=== PATIENT | male | born 1965 | race African-American/Black ===

== ENCOUNTER 2022-10-25 13:07 | Outpatient (REF) | payer OTHER, SELFPAY ==
[2022-10-25 13:39] LABS: Basophils Percent Auto 0.2 % (0-2); Eosinophils Absolute Auto 0.1 X10*3/uL (0.0-0.4); Eosinophils Percent Auto 1.1 % (0-4); Hematocrit 41.1 % (42.0-52.0); Hemoglobin 12.8 g/dl (14.0-18.0); Imm Gran Abs Auto 0.01 X10*3/uL (0.00-0.03); Imm Gran Pct Auto 0.2 % (0.0-0.4); Lymphocytes Absolute Auto 3.6 X10*3/uL (1.2-4.9); Lymphocytes Percent Auto 63.9 % (20-40); MANUAL DIFF FLAG SCAN; Mean Corpuscular HGB Conc 31.1 g/dl (31.0-36.0); Mean Corpuscular Hemoglobin 27.2 pg (27.0-33.0); Mean Corpuscular Volume 87.3 fL (80.0-98.0); Mean Platelet Volume 9.5 fL (9.4-12.4); Monocytes Absolute Auto 0.5 X10*3/uL (0.1-1.2); Monocytes Percent Auto 7.9 % (2-11); Neutrophils Absolute Auto 1.5 x10*3/uL (2.0-8.3); Neutrophils Percent Auto 26.7 % (45-73); Platelet Count 333 X10*3/uL (160-400); Red Blood Count 4.71 X10*6/uL (4.60-5.80); Red Cell Distribution Width 14.2 % (11.0-16.0); SCAN SMEAR FLAG 1; White Blood Count 5.7 X10*3/uL (4.8-10.8)
[2022-10-25 13:48] LABS: Estimated Average Glucose 108 mg/dL; Hemoglobin A1C 117.7283 umol/L; Hemoglobin A1c % 5.4 % (<6.0)
[2022-10-25 13:58] LABS: SLIDE REVIEW VERIFIED
[2022-10-25 14:19] LABS: Alanine Aminotransferase 24 U/L (0-40); Albumin Level 4.6 g/dL (3.5-5.0); Alkaline Phosphatase 79 U/L (39-117); Anion Gap 14 (12-20); Aspartate Amino Transferase 23 U/L (5-37); Bilirubin Total 0.4 mg/dL (0.0-1.0); Blood Urea Nitrogen 21 mg/dL (9-16); Calcium 10.1 mg/dL (8.4-10.2); Carbon Dioxide 27 mmol/L (22-29); Chloride 104 mmol/L (96-108); Cholesterol 160 mg/dL (<200); Estimated Glomerular Filt Rate > 60; Glucose Random 97 mg/dL (60-115); HDL Cholesterol 47 mg/dL (>40); LDL Cholesterol Calculated 98 mg/dL (<100); Potassium 4.5 mmol/L (3.3-5.1); Sodium 140 mmol/L (135-145); Total Protein 8.1 g/dL (6.5-8.0); Triglycerides 77 mg/dL (<150)
[2022-10-25 14:31] LABS: Prostate Specific Antigen Scr 0.45 ng/mL (<0.05-4.0)
[2022-10-25 14:31] LABS: Creatinine Urine 209.13 mg/dL; Microalbum/Creatinine Ratio Ur 4.3 ug/mg cr (<30)
[2022-10-25 14:36] LABS: Thyroid Stimulating Hormone 1.28 uIU/mL (0.32-4.0)
== END 2022-10-25 13:08 | disposition home or self-care (01) ==
LOC: HO.LAB 13:07
PROVIDERS: PCP Internal Medicine; Visit Provider Internal Medicine
DX: Z00.01 Encounter for general adult medical examination with abnormal findings (principal); Z12.5 Encounter for screening for malignant neoplasm of prostate; C78.00 Secondary malignant neoplasm of unspecified lung; E11.40 Type 2 diabetes mellitus with diabetic neuropathy, unspecified; E78.00 Pure hypercholesterolemia, unspecified; I10 Essential (primary) hypertension; R06.02 Shortness of breath; Z86.010 Personal history of colon polyps
CPT/HCPCS: 36415; 80053; 80061; 82043; 83036; 84153; 84443; 85025

== ENCOUNTER 2023-01-26 15:10 | Outpatient (AMB) | payer OTHER, SELFPAY ==
--- NOTE | 2023-01-26 15:21 | MHC.PC.OV ---
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
--- NOTE | 2023-01-26 15:21 | MHC.OFFWIV ---
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 Patient Tobacco Use Status: Never used Tobacco Allergies No Known Allergies Allergy (Verified 01/26/23 15:49) Medication List - Last Reconciled 01/26/23 by Kenji Roberts MD atorvastatin 40 mg PO DAILY diltiazem HCl 360 mg PO DAILY losartan 100 mg PO DAILY losartan-hydrochlorothiazide 100-25 mg 1 tab PO DAILY metformin 1,000 mg PO BID omeprazole 20 mg PO DAILY trametinib (Mekinist) 2 mg PO DAILY Do you need a note to return to daycare/school/sports/work: No HPI VULCANIZER/vomitting/sore throat(lobby masked) HPI Details 57-year-old male presents to the office for a sick visit. Patient is reporting symptoms of sore throat since yesterday. Difficulty swallowing. No fevers or chills. He reports swollen lymph nodes. Patient is stage IV lung cancer. His cancer care is at [facility]. [facility] Social History Patient Tobacco Use Status: Never used Tobacco Physical Exam Vital Signs: Last Vital Signs Temp 99 F 01/26/23 15:22 Pulse 88 01/26/23 15:22 BP 142/80 H 01/26/23 15:22 Pulse Ox 99 01/26/23 15:22 Oxygen Delivery Method Room Air 01/26/23 15:22 BMI result Body Mass Index 47.8 Const General: cooperative and healthy appearing Nutritional Appearance: well nourished Orientation/consciousness: patient oriented x3 Limitations: no limitations HEENT Other: Throat: Tonsillar exudates positive. Head: Yes normal to inspection Eyes General: appearance normal, both eyes and all related structures Neck Neck: Yes normal visual inspection Chest Chest palpation & inspection: normal palpation of entire chest wall Resp Effort & Inspection: normal respiratory effort Neuro General: patient oriented x3 Results AMB Rapid Strep AMB Rapid Strep Negative Last Edit by Ashely Villalobos CMA on 01/26/23 15:37 Results Reviewed Results Reviewed: Laboratory Last Values Strep Scn Rapid Clinic Negative 01/26/23 15:35 Assessment & Plan Assessment & Plan (1) Acute pharyngitis: Code(s): J02.9 - Acute pharyngitis, unspecified Plan: Saltwater gargling. Increase fluid intake. Antibiotics including amoxicillin were called in. Orders: Orders AMB Rapid Strep Screen Today Z13.9 - Encounter for screening, unspecified Coding Level of Care Code Est Pt Level 3 (24332) Diagnoses Acute pharyngitis J02.9
[2023-01-26 15:22] VITALS: BP 142/80; PULSE 88; TEMP 37.2; O2SAT 99; BMI 47.8
== END 2023-01-26 16:28 | disposition home or self-care (01) ==
PROVIDERS: PCP Internal Medicine; Visit Provider Internal Medicine
DX: J02.9 Acute pharyngitis, unspecified (principal)
CPT/HCPCS: 87880; 99213

== ENCOUNTER 2023-06-01 09:06 | Emergency (ER) | payer OTHER, SELFPAY ==
--- NOTE | ~2023-06-01 | CT_ITS ---
EXAMINATION: CT CHEST WITHOUT CONTRAST CLINICAL INFORMATION: 50-year-old male with history of stage IV lung cancer, left pleural effusion, infiltrate, shortness of breath, presents for stat evaluation. COMPARISON: Chest radiograph from 06/01/2023 TECHNIQUE: Multidetector volumetric CT imaging of the chest was done. Axial MIP volume rendering provided. Sagittal and coronal reformatted images were obtained. This CT examination was performed using dose optimization techniques as appropriate, variously including the following: *Automated exposure control *Adjustment of mA and/or kV according to patient size (this includes techniques or standardized protocols for targeted exams where dose is matched to indication/reason for exam; i.e. extremities or head) *Use of iterative reconstruction technique DLP: 431 mGy-cm FINDINGS: LUNGS AND PLEURA: Trachea and central airways are widely patent and normal in caliber. Mild centrilobular and paraseptal emphysema. Small 0.4 cm solid, noncalcified pleural-based nodule or lymph node of the right middle lobe (image 334, series 5). Scattered linear opacities of mild atelectasis in lower lobes, right middle lobe and lingula. No focal consolidation, pleural effusion or pneumothorax. 2.6 x 2.5 x 2.9 cm solid, irregular nodule in the lateral left lower lobe in this patient with history of lung carcinoma. This nodule has a few linear tails projecting to the pleural surface. CARDIOVASCULAR: The heart size is normal. No pericardial effusion. Pulmonary arteries are normal in size. There is atherosclerotic calcification of the thoracic aorta without aneurysm. CORONARY ARTERY CALCIFICATION: None detected. MEDIASTINUM AND LOWER NECK: No mediastinal mass. The esophagus and thyroid gland are unremarkable. LYMPHATICS: No axillary or internal mammary lymphadenopathy. Lymph node measurements are given in short axis dimension. The mediastinal lymph nodes adjacent to the aorta arch and within the aortopulmonary window are 1.2 cm and 1 cm, respectively. No evidence of hilar lymphadenopathy on this noncontrast examination. UPPER ABDOMEN: Diffuse hepatic steatosis. The medial and lateral limbs of the left adrenal gland are mildly enlarged. The adrenal glands are only partially included in the [id number]. This might represent chronic mild hyperplastic change. SKELETAL AND CHEST WALL: No chest wall mass. Moderate disc degenerative change at C6-C7. Thoracic vertebra have normal density, height and alignment. No aggressive osseous lesion within the thorax. CT/CT chest wo IV con IMPRESSION: * Mild pulmonary emphysema. * Bibasilar atelectasis. No CT imaging evidence of pneumonia or pleural effusion. * Spiculated nodule in the lateral left lower lobe is consistent with a malignancy in this patient with history of stage IV lung carcinoma, and mediastinal lymphadenopathy is noted. * Diffuse hepatic steatosis.
--- NOTE | ~2023-06-01 | XR_ITS ---
EXAMINATION: XR CHEST CLINICAL INFORMATION: Shortness of breath, stage IV lung cancer. COMPARISON: None available. TECHNIQUE: 2 views of the chest were obtained. FINDINGS: Heart and mediastinum within normal limits. Mildly prominent bilateral ann. Bibasilar increased markings, somewhat globular on the left, more linear on the right. Mechanical device overlies the upper left chest wall. Bony structures are intact. XR/XR chest 2V IMPRESSION: Bibasilar atelectasis, pneumonia and/or underlying lesions not excluded.
--- NOTE | 2023-06-01 09:14 | ED.SOB ---
HPI - SOB/Dyspnea General Chief Complaint: Dyspnea Stated Complaint: LOW SAT 94% RA,H/O LUNG CA Time Seen by Provider: 06/01/23 09:08 Source: patient and EMS Mode of arrival: EMS Limitations: no limitations History of Present Illness HPI Narrative: Increasing shortness of for the past few days, oxygen running in the 80s, denies chest pain, cough or fever. Patient has stage 4 lung cancer treated at [facility]. Related Data Home Medications Medication Instructions Recorded Confirmed atorvastatin 40 mg tablet 40 mg PO DAILY 01/26/23 diltiazem HCl 360 mg 360 mg PO DAILY 01/26/23 capsule,extended release 24 hr losartan 100 mg tablet 100 mg PO DAILY 01/26/23 losartan 100 1 tab PO DAILY 01/26/23 mg-hydrochlorothiazide 25 mg tablet metformin 1,000 mg tablet 1,000 mg PO BID 01/26/23 omeprazole 20 mg capsule,delayed 20 mg PO DAILY 01/26/23 release trametinib 2 mg tablet (Mekinist) 2 mg PO DAILY 01/26/23 Previous Rx's Medication Instructions Recorded amoxicillin 500 mg capsule 500 mg PO Q8H #30 caps 01/26/23 fluticasone furoate 27.5 2 spray intranasal DAILY #6.6 mL 06/01/23 mcg/actuation nasal spray,suspension (Flonase Sensimist) Allergies Allergy/AdvReac Type Severity Reaction Status Date / Time No Known Allergies Allergy Verified 06/01/23 09:19 Review of Systems Review of Systems: Yes all other systems are reviewed and are negative Neurologic: Denies Sensory deficit (Neuro) [facility] Past Medical History Medical History (Updated 06/01/23 @ 11:57 by Deejay Yi MD) GERD (gastroesophageal reflux disease) Cluster headaches Type 2 diabetes mellitus Hypercholesterolemia Hypertension Palpitations Stage 4 lung cancer Social History Social History Patient Tobacco Use Status: Never used Tobacco Smoked in Last 30 Days: No Use of substances other than those prescribed or required for medical reasons: No Advance Directives: No Physical Exam Vital Signs: Vital Signs: Last Vital Signs Temp 98.4 F 06/01/23 11:33 Pulse 75 06/01/23 11:33 Resp 18 06/01/23 11:33 BP 110/61 04/03/24 11:33 Pulse Ox 96 06/01/23 11:33 O2 Del Method Nasal Cannula 06/01/23 11:33 O2 Flow Rate 3 06/01/23 11:33 Oxygen Flow Rate 2 06/01/23 09:19 BMI result Body Mass Index 38.3 Const: General: healthy appearing Nutritional Appearance: average body habitus Orientation/consciousness: oriented to person and patient oriented x3 Limitations: no limitations HEENT: Head: Yes normal to inspection Ears: external ears normal General nose exam: Normal external nose present Mouth: Normal oral and palatal mucosa present and oropharynx normal Throat: Yes posterior oropharynx normal Eyes: General: appearance normal, both eyes and all related structures Neck: Other: supple Neck: Yes normal visual inspection Chest: Chest palpation & inspection: normal inspection of the chest Resp: Auscultation: clear to auscultation bilaterally Cardio: Jugular venous distension: no JVD Rate: regular rate Rhythm: regular rhythm Heart sounds: S1 normal heart sound present and S2 normal heart sound present GI: Inspection: Yes normal to inspection Palpation (GI): Soft to palpation, nontender and No hepatosplenomegaly present Auscultation: normal bowel sounds : General: Yes no CVA tenderness Back/Spine/Pelvis: Back: no CVA tenderness Skin: General skin exam: no rashes or lesions noted Neuro: General: oriented to person and patient oriented x3 Cranial nerves: Yes CN's II-XII intact bilaterally Motor exam (neuro): 5/5 motor strength present throughout Sensory Exam: No Sensory deficit (Neuro) Extrem: General: Yes normal to inspection Psych: Appearance: grossly normal Medical Decision Making Differential Diagnosis Differential Diagnoses: The differential diagnosis associated with the presentation includes (pneumonia, pleural effusion, Pulmonary embolism metastatic cancer) Admission/Observation Consideration of admission/observation: Escalation of care including admission/observation considered (upon arrival patient was considered for admission) Lab Data 06/01/23 09:58 06/01/23 09:58 Labs: Lab Results 06/01/23 Range/Units 09:58 WBC 4.7 L (4.8-10.8) X10*3/uL RBC 4.21 L (4.60-5.80) X10*6/uL Hgb 11.9 L (14.0-18.0) g/dl Hct 38.4 L (42.0-52.0) % MCV 91.2 (80.0-98.0) fL MCH 28.3 (27.0-33.0) pg MCHC 31.0 (31.0-36.0) g/dl RDW 14.0 (11.0-16.0) % Plt Count 285 (160-400) X10*3/uL MPV 9.6 (9.4-12.4) fL Immature Gran % (Auto) 0.2 (0.0-0.4) % Neut % (Auto) 49.9 (45-73) % Lymph % (Auto) 43.7 H (20-40) % Gilliam % (Auto) 4.7 (2-11) % Eos % (Auto) 1.3 (0-4) % Baso % (Auto) 0.2 (0-2) % Lymph # (Auto) 2.1 (1.2-4.9) X10*3/uL Gilliam # (Auto) 0.2 (0.1-1.2) X10*3/uL Eos # (Auto) 0.1 (0.0-0.4) X10*3/uL Baso # (Auto) 0.0 (0.0-0.2) X10*3/uL Abs Immat Gran (auto) 0.01 (0.00-0.03) X10*3/uL Absolute Neuts (auto) 2.3 (2.0-8.3) x10*3/uL Absolute Nucleated RBC 0.000 (0.0-0.012) X10*3/uL Nucleated RBC % (auto) 0.0 (0.0-0.2) /100WBC D-Dimer High Sensitivty < 150 NG/ML Sodium 138 (135-145) mmol/L Potassium 3.9 (3.3-5.1) mmol/L Chloride 103 (96-108) mmol/L Carbon Dioxide 25 (22-29) mmol/L Anion Gap 14 (12-20) BUN 17 H (9-16) mg/dL Creatinine 1.05 (0.5-1.4) mg/dL Estim Creat Clear Calc 118.4 Estimated GFR > 60 Random Glucose 228 H (60-115) mg/dL Calcium 9.6 (8.4-10.2) mg/dL Troponin I High Sens 3.2 (<3.5-35.0) ng/L Independent Interpretation I performed an independent interpretation of an: EKG (sinus 88, no st or twave changes), Plain X-Ray (question of left lower infiltrate or pleural effusion) and CT Scan (no effusion no infiltrate) Radiology Impression Discussion of test interpretation with radiology: I have reviewed the radiologist's reading. (and agree) Independent Historian Clinical information obtained from an independent historian. History obtained from or confirmed by: Spouse and EMS Tests considered The following testing was considered but not selected: CTA of chest but ddimer was negative Prescription Management I considered prescription management with: Antibiotic (no evidence of pneumonia so abx was not given) Chronic Conditions Patient?s care impacted by: Cancer (Lung) Discharge Plan Discharge Clinical Impression: Chronic obstructive airway disease, Lung cancer Patient Disposition: Home, Self-Care Instructions: COPD (Chronic Obstructive Pulmonary Disease) (ED) Prescriptions: New Flonase Sensimist 27.5 mcg/actuation spray,suspension 2 spray intranasal DAILY Qty: 6.6 0RF Rx Instructions: into each nostril No Action losartan-hydrochlorothiazide 100-25 mg tablet 1 tab PO DAILY diltiazem HCl 360 mg capsule,extended release 24hr 360 mg PO DAILY atorvastatin 40 mg tablet 40 mg PO DAILY losartan 100 mg tablet 100 mg PO DAILY metformin 1,000 mg tablet 1,000 mg PO BID Mekinist 2 mg tablet 2 mg PO DAILY omeprazole 20 mg capsule,delayed release(DR/EC) 20 mg PO DAILY amoxicillin 500 mg capsule 500 mg PO Q8H Qty: 30 0RF
--- NOTE | 2023-06-01 09:16 | ECG_ITS ---
Test Reason : SHORTNESS OF BREATH Blood Pressure : / mmHG Vent. Rate : 088 BPM Atrial Rate : 088 BPM P-R Int : 202 ms QRS Dur : 108 ms QT Int : 362 ms P-R-T Axes : 071 015 054 degrees QTc Int : 438 ms Normal sinus rhythm Normal ECG No previous ECGs available Referred By: Deejay Yi Electronically Signed By:TAVO LOJA MD
[2023-06-01 09:19] VITALS: BP 150/90; BP 178/101; PULSE 86; PULSE 88; RESP 18; TEMP 36.6; O2SAT 97; O2SAT 99; BMI 38.3
[2023-06-01 10:03] LABS: MANUAL DIFF FLAG NO
[2023-06-01 10:05] LABS: Basophils Percent Auto 0.2 % (0-2); Eosinophils Absolute Auto 0.1 X10*3/uL (0.0-0.4); Eosinophils Percent Auto 1.3 % (0-4); Hematocrit 38.4 % (42.0-52.0); Hemoglobin 11.9 g/dl (14.0-18.0); Imm Gran Abs Auto 0.01 X10*3/uL (0.00-0.03); Imm Gran Pct Auto 0.2 % (0.0-0.4); Lymphocytes Absolute Auto 2.1 X10*3/uL (1.2-4.9); Lymphocytes Percent Auto 43.7 % (20-40); Mean Corpuscular Hemoglobin 28.3 pg (27.0-33.0); Mean Corpuscular Volume 91.2 fL (80.0-98.0); Mean Platelet Volume 9.6 fL (9.4-12.4); Monocytes Absolute Auto 0.2 X10*3/uL (0.1-1.2); Monocytes Percent Auto 4.7 % (2-11); Neutrophils Absolute Auto 2.3 x10*3/uL (2.0-8.3); Neutrophils Percent Auto 49.9 % (45-73); Platelet Count 285 X10*3/uL (160-400); Red Blood Count 4.21 X10*6/uL (4.60-5.80); White Blood Count 4.7 X10*3/uL (4.8-10.8)
--- NOTE | 2023-06-01 10:13 | PC.NURSE ---
patient a&ox3, vitals currently stable, lungs clear throughout, speaking in full sentences- no dyspnea noted while at rest, pt states his O2 sat decreases with ambulation, presently on 2L NC with sat in 90s, pt denies pain/discomfort, ekg performed, labs drawn, call patel within reach, family at bedside, will continue to monitor
[2023-06-01 10:20] LABS: D Dimer High Sensitivity < 150 NG/ML
[2023-06-01 10:21] LABS: Anion Gap 14 (12-20); Blood Urea Nitrogen 17 mg/dL (9-16); Calcium 9.6 mg/dL (8.4-10.2); Carbon Dioxide 25 mmol/L (22-29); Chloride 103 mmol/L (96-108); Creatinine Clr Calc Pharmacy 118.4; Estimated Glomerular Filt Rate > 60; Glucose Random 228 mg/dL (60-115); Potassium 3.9 mmol/L (3.3-5.1); Sodium 138 mmol/L (135-145)
[2023-06-01 10:31] LABS: Troponin-I High Sensitivity 3.2 ng/L (<3.5-35.0)
[2023-06-01 11:33] VITALS: BP 110/61; PULSE 75; RESP 18; TEMP 36.9; O2SAT 96
--- NOTE | 2023-06-01 11:43 | PC.NURSE ---
pt complaining of nasal discomfort with the O2, this nurse applied humidification to the oxygen in hopes to relieve it. pt a&ox3, vss, family at bedside, pt awaitin results of CT, call patel within reach, will continue to monitor
[2023-06-01 12:41] VITALS: BP 132/83; PULSE 72; RESP 16; TEMP 36.8; O2SAT 93
== END 2023-06-01 12:41 | disposition home or self-care (01) ==
PROVIDERS: Emergency Provider Emergency Medicine; PCP Internal Medicine
DX: J44.9 Chronic obstructive pulmonary disease, unspecified (principal); C34.90 Malignant neoplasm of unspecified part of unspecified bronchus or lung; E11.9 Type 2 diabetes mellitus without complications; I10 Essential (primary) hypertension
CPT/HCPCS: 36415; 71046; 71250; 80048; 84484; 85025; 85379; 93005; 99284; 99285

== ENCOUNTER → 2023-06-01 09:16 | Outpatient (BNV) | payer OTHER, SELFPAY | PROVIDERS: Emergency Provider Emergency Medicine; PCP Internal Medicine; Visit Provider Internal Medicine Cardiovascular Disease | DX: R06.02 Shortness of breath (principal) | CPT/HCPCS: 93010 ==

== ENCOUNTER 2023-06-08 09:14 | Outpatient (AMB) | payer OTHER, SELFPAY ==
[2023-06-08 09:20] VITALS: BP 132/84; PULSE 93; TEMP 36.4; O2SAT 97; BMI 38.1
--- NOTE | 2023-06-08 09:20 | MHC.OFFWIV ---
Intake Vital Signs 06/08/23 09:20 Height 6 ft 4 in Weight 313 lb BMI 38.1 BP 132/84 Blood Pressure Location Lt brachial Position Sitting Pulse 93 Pulse Source Pulse Oximeter Temp 97.6 F Temp Source Temporal Artery Scan Pulse Oximetry (%) 97 Oxygen Delivery Method Nasal Cannula Oxygen Flow Rate 2 Intake Visit Reasons: EP ?Sinus flare up Intake Note: Pt presents to the office today for c/o sinus flare up. Pt states he has been having issues with his sinuses causing him to have trouble breathing. Pt states he is having issues with mouth and nose dryness that started about a year ago at random times. Patient Tobacco Use Status: Never used Tobacco Accompanied by: Significant Other Allergies No Known Allergies Allergy (Verified 06/08/23 09:25) HPI HPI Comments History of Present Illness Details 58 y/o male patient who presents to walk in clinic with c/o dry mucous membranes. Reports dry mouth and dry sinuses. Pt was put on Oxygen continuously last week due to SOB and dropping SATs. H/o Lung CA and currently on Chemo. Pt reports Oxygen on his nose is causing him to have SOB, dryness. He has been using Flonase and Nasal saline with no relief. [facility] Medical History GERD (gastroesophageal reflux disease) Cluster headaches Type 2 diabetes mellitus Hypercholesterolemia Hypertension Palpitations Stage 4 lung cancer Social History Patient Tobacco Use Status: Never used Tobacco Review of Systems Const All systems reviewed & are unremarkable except as noted in HPI and below Physical Exam Vital Signs: Last Vital Signs Temp 97.6 F 06/08/23 09:20 Pulse 93 06/08/23 09:20 BP 132/84 06/08/23 09:20 Pulse Ox 97 06/08/23 09:20 Oxygen Delivery Method Nasal Cannula 06/08/23 09:20 Oxygen Flow Rate 2 06/08/23 09:20 BMI result Body Mass Index 38.1 Const General: no acute distress; No comfortable Nutritional Appearance: obese morbidly obese Orientation/consciousness: patient oriented x3 HEENT Head: Yes normocephalic Ears: external ears normal and TM's normal bilaterally General nose exam: No nasal discharge present and Abnormal mucous membranes and turbinates present pale Face and sinus: Yes sinuses nontender Mouth: Abnormal oral and palatal mucosa present (Dry Oral Mucosae) Resp Effort & Inspection: normal respiratory effort and able to speak in complete sentences Auscultation: clear to auscultation bilaterally, no crackles, no rales, no rhonchi and no wheezes Cardio Rate: regular rate Rhythm: regular rhythm Neuro General: patient oriented x3 Assessment & Plan Assessment & Plan (1) SOB (shortness of breath): Code(s): R06.02 - Shortness of breath Plan: - Currently on 2L Oxygen all day - F/U with Oncology - Continue with Saline spray Coding Level of Care Code Est Pt Level 3 (74810) Diagnoses SOB (shortness of breath) R06.02 Time Spent (min) 15
== END 2023-06-08 09:50 | disposition home or self-care (01) ==
PROVIDERS: PCP Internal Medicine; Visit Provider Nurse Practitioner Family
DX: R06.02 Shortness of breath (principal)
CPT/HCPCS: 99213

== ENCOUNTER 2023-07-07 09:14 | Outpatient (REF) | payer OTHER, SELFPAY ==
[2023-07-07 10:34] LABS: Estimated Average Glucose 131 mg/dL; Hemoglobin A1c % 6.2 % (<6.0)
[2023-07-07 10:53] LABS: Alanine Aminotransferase 41 U/L (0-40); Albumin Level 4.4 g/dL (3.5-5.0); Alkaline Phosphatase 64 U/L (39-117); Anion Gap 15 (12-20); Aspartate Amino Transferase 29 U/L (5-37); Bilirubin Total 0.4 mg/dL (0.0-1.0); Blood Urea Nitrogen 19 mg/dL (9-16); Calcium 10.5 mg/dL (8.4-10.2); Carbon Dioxide 30 mmol/L (22-29); Chloride 100 mmol/L (96-108); Cholesterol 136 mg/dL (<200); Estimated Glomerular Filt Rate > 60; Glucose Random 123 mg/dL (60-115); HDL Cholesterol 37 mg/dL (>40); LDL Cholesterol Calculated 74 mg/dL (<100); Sodium 141 mmol/L (135-145); Total Protein 8.2 g/dL (6.5-8.0); Triglycerides 126 mg/dL (<150)
== END 2023-07-07 09:15 | disposition home or self-care (01) ==
LOC: HO.LAB 09:14
PROVIDERS: PCP Internal Medicine; Visit Provider Internal Medicine
DX: E11.9 Type 2 diabetes mellitus without complications (principal); E78.00 Pure hypercholesterolemia, unspecified; I10 Essential (primary) hypertension; I49.9 Cardiac arrhythmia, unspecified
CPT/HCPCS: 36415; 80053; 80061; 83036

== ENCOUNTER 2023-09-21 15:31 | Emergency (ER) | payer OTHER, SELFPAY ==
--- NOTE | ~2023-09-21 | XR_ITS ---
EXAMINATION: XR CHEST CLINICAL INFORMATION: Swelling left lower leg. History of stage IV lung cancer. COMPARISON: CT chest June 01, 2023. Chest x-ray June 01, 2023 TECHNIQUE: 2 views of the chest were obtained. FINDINGS: Redemonstration of the lung mass at the peripheral left lung base measuring about 3 cm in diameter. Allowing for differences in technique not substantially changed since prior CT June 01, 2023 CT chest exam. No new lung nodules. No acute airspace disease. No pleural effusion or pneumothorax. Heart size is normal. Cardiac and mediastinal contours normal. There is no pulmonary vascular congestion. XR/XR chest 2V IMPRESSION: 1. No acute abnormality of chest. 2. Redemonstration of the lung mass at the peripheral left lung base.
--- NOTE | ~2023-09-21 | US_ITS ---
EXAMINATION: US VENOUS ULTRASOUND WITH DOPPLER LOWER EXTREMITY, BILATERAL CLINICAL INFORMATION: Edema. COMPARISON: None available. TECHNIQUE: Ultrasound of the deep veins is performed from the hip to the calf with compression sonography and color and pulse Doppler assessment. Spectral analysis with color-flow imaging is performed. FINDINGS: RIGHT: There is normal venous compression and respiratory variation and augmented flow. The visualized common femoral vein, superficial femoral vein, profunda femoral vein, popliteal vein, and the trifurcation region shows no evidence of deep venous thrombosis. There is no significant popliteal fossa cyst. LEFT: There is normal venous compression and respiratory variation and augmented flow. The visualized common femoral vein, superficial femoral vein, profunda femoral vein, popliteal vein, and the trifurcation region shows no evidence of deep venous thrombosis. There is no significant popliteal fossa cyst. If the patient's symptoms persist, followup ultrasound in 5 days 7 days might be of value to exclude proximal propagation from a non-visualized calf vein. US/US venous duplex LE BI IMPRESSION: No DVT demonstrated in the lower extremity.
--- NOTE | ~2023-09-21 | CT_ITS ---
EXAMINATION: CT CHEST, ABDOMEN AND PELVIS WITHOUT CONTRAST CLINICAL INFORMATION: Lung carcinoma with metastases with leg swelling and question of metastases to the COMPARISON: CT chest 06/01/2023 TECHNIQUE: Multidetector volumetric imaging was performed from the thoracic inlet through the pubic symphysis without IV contrast. Sagittal and coronal reformatted images were obtained on the technologist's workstation. This CT examination was performed using dose optimization techniques as appropriate, variously including the following: *Automated exposure control *Adjustment of mA and/or kV according to patient size (this includes techniques or standardized protocols for targeted exams where dose is matched to indication/reason for exam; i.e. extremities or head) *Use of iterative reconstruction technique DLP: 1500 mGy-cm FINDINGS: CHEST: Lung: Again seen is a left lower lobe mass which is slightly bigger than previously increasing in size from 2.4 x 2.5 cm in maximal transverse dimension to 2.6 x 2.6 cm (12:14 compare prior 5:317). Right basilar atelectasis is present. No other lung nodules are seen. Mediastinum: There is a para-aortic lymph node and an AP window lymph node each measuring about 1.1 cm in size which are unchanged. Evaluation for hilar lymphadenopathy in adequate without IV contrast. The central vascular structures are unremarkable aside from some mild calcific plaque in the aorta. Pericardium/Pleura: No significant effusion. No pleural mass or thickening. Chest Wall/Axilla: Unremarkable ABDOMEN/PELVIS: Peritoneal Space: No significant free air or free fluid identified. Liver, Gallbladder, Biliary Tree: The liver is enlarged measuring 19.3 cm in cephalocaudad dimension with decreased attenuation consistent with hepatic steatosis. Focal fatty sparing seen around the gallbladder. There is a 3.4 cm water density cyst in the caudate without suspicious solid focal hepatic lesion or biliary ductal dilatation is present. The gallbladder is unremarkable with no evidence of radiopaque gallstones, gallbladder wall thickening, or obvious pericholecystic inflammatory changes. Pancreas: Unremarkable Spleen: Unremarkable Adrenal Glands: Both adrenal glands are symmetrically thickened, left greater than right Kidneys and Ureters: The kidneys are normal in size, shape, and attenuation. No hydronephrosis, hydroureter, or calculi seen. No perinephric stranding. Bladder: Unremarkable Gastrointestinal Tract: The small and large bowel are unremarkable. The appendix is unremarkable. Abdominal Wall: Small periumbilical hernia seen containing only fat. Lymph Nodes: No lymphadenopathy. There is a single left para-aortic 1.1 cm lymph node (11:39). Vascular: Calcific atherosclerotic changes are present in the aorta and iliofemoral vessels. There is no evidence of an abdominal aortic aneurysm.. The IVC appears unremarkable. PELVIC VISCERA: There is mild BPH, seminal vesicles appear normal OSSEUS STRUCTURES: Minimal degenerative changes are noted in the spine. No bony destructive lesions are seen. CT/CT abdomen pelvis wo IV con IMPRESSION: 1. Left lower lobe mass is slightly bigger than previously. Stable mediastinal lymph nodes. 2. No evidence of metastatic disease in the abdomen or pelvis. 3. Incidental note made of enlarged fatty liver, hepatic cyst, symmetrically thickened adrenal glands, mild BPH and other findings described above. Fleischner guidelines were followed.
[2023-09-21 15:37] VITALS: BP 141/90; PULSE 89; RESP 18; TEMP 36.9; O2SAT 96; BMI 38.1
--- NOTE | 2023-09-21 15:38 | ED_ITS ---
HPI - General Adult General Chief complaint: General Medical Stated complaint: L leg swelling Time Seen by Provider: 09/21/23 21:34 Source: patient Mode of arrival: ambulatory Limitations: no limitations History of Present Illness ED Provider: Jac PANG HPI narrative: 58-year-old male with stage IV lung cancer, COPD presents to the ED bilateral lower extremity swelling with left increased more than right and then states also some abdominal bloating which has improved. Patient states he is on Lasix due to his cancer making him retaining water. Patient denies any chest pain or shortness of breath. Patient denies any recent long travel or recent surgery. Related Data Home Medications ?Medication ?Instructions ?Recorded ?Confirmed atorvastatin 40 mg tablet 40 mg PO DAILY 01/26/23 diltiazem HCl 360 mg 360 mg PO DAILY 01/26/23 capsule,extended release 24 hr losartan 100 mg tablet 100 mg PO DAILY 01/26/23 losartan 100 1 tab PO DAILY 01/26/23 mg-hydrochlorothiazide 25 mg tablet metformin 1,000 mg tablet 1,000 mg PO BID 01/26/23 omeprazole 20 mg capsule,delayed 20 mg PO DAILY 01/26/23 release trametinib 2 mg tablet (Mekinist) 2 mg PO DAILY 01/26/23 Previous Rx's ?Medication ?Instructions ?Recorded amoxicillin 500 mg capsule 500 mg PO Q8H #30 caps 01/26/23 fluticasone furoate 27.5 2 spray intranasal DAILY #6.6 mL 06/01/23 mcg/actuation nasal spray,suspension (Flonase Sensimist) Allergies Allergy/AdvReac Type Severity Reaction Status Date / Time No Known Allergies Allergy Verified 09/21/23 15:40 Review of Systems 2 Review of Systems: Bilateral lower extremities left more than right. Resolving abdominal bloating Yes all other systems are reviewed and are negative PMFSH Past Medical History Medical History GERD (gastroesophageal reflux disease) Cluster headaches Type 2 diabetes mellitus Hypercholesterolemia Hypertension Palpitations Stage 4 lung cancer Social History Social History Patient Tobacco Use Status: Never used Tobacco Advance Directives: No Advance Directives Information Provided: No Physical Exam ED Vital Signs: Vital Signs - 24 hr 09/21/23 20:45 09/21/23 22:12 09/22/23 00:34 Temperature 98.2 F 98.2 F 98.2 F Pulse Rate 74 77 77 Respiratory Rate 20 18 18 Blood Pressure 130/87 149/95 H 149/95 H Pulse Oximetry 99 99 99 Oxygen Delivery Method Nasal Cannula Nasal Cannula Nasal Cannula Oxygen Flow Rate 2 2 BMI result Body Mass Index 38.1 Const General: cooperative, healthy appearing, comfortable, no acute distress, well developed, alert, awake and Physically active [facility] Head: Yes normal to inspection, Yes No palpable skull fracture present and Yes normocephalic Eyes General: appearance normal, both eyes and all related structures Neck Neck: Yes normal visual inspection, Yes full ROM, Yes no lymphadenopathy, Yes no meningeal signs, Yes trachea midline, Yes supple, No anterior neck swelling and No tender Chest Chest palpation & inspection: normal inspection of the chest and normal palpation of entire chest wall Resp Effort & Inspection: normal respiratory effort and able to speak in complete sentences Auscultation: clear to auscultation bilaterally Cardio Jugular venous distension: no JVD Heart sounds: S1 normal heart sound present and S2 normal heart sound present GI Other: Patient states abdomen is no longer bloated and normal size Inspection: Yes normal to inspection and No abdominal wall ecchymosis Palpation (GI): Soft to palpation, not firm, nontender, no guarding and not rigid General: Yes no CVA tenderness Back/Spine/Pelvis Back: no CVA tenderness and No back tenderness Skin General skin exam: no rashes or lesions noted, elasticity normal and turgor normal Neuro General: gait normal, tone normal, moves all extremities, Normal light touch and pain sensation, no meningeal signs, no focal motor deficits, CN's II-XI intact bilaterally and normal sensation to monofilament Extrem Other: Left lower extremity more swollen than right. Bilateral lower extremities not want to pitting edema. Negative bilateral calf pain or erythema. Negative ecchymosis or deformity. Negative coldness. Bilateral lower extremity motor/neuro/vascular exam intact General: Yes normal to inspection and Yes full ROM Psych Appearance: grossly normal, well kempt and not disheveled Course Course Course Narrative: This is a rapid medical exam performed by Johnnie Caro NP: Additional HPI, ROS, PE not included below will be deferred to primary provider. Patient is a 58-year-old male with T2DM, HTN, stage 4 lung CA on home O2 @ 2lpm presenting to the ED with complaint of left lower leg swelling for the past 2-3 days. Currently on furosemide. Also feels bloated. Plan: labs, cxr Medical Decision Making Medical Decision Making [facility] Narrative: 58-year-old male presents to ED stating bilateral lower extremity left more than right. Patient took his Lasix today. Patient states his abdomen was starting bloating, but than improved also. Initial labs including BNP x-ray negative. Will order bilateral ultrasound to rule out DVT. Will odor chest abdominal CT scan to see any any metastatic large abdominal mass causing compression leading to bilateral lower extremity swelling. On visual inspection and palpation negative pitting edema. Patient denies any chest pain or shortness of breath. Oxygen saturation on room air is 97%. 12:26am: Patient bilateral ultrasound negative for DVT. BNP negative. Abdominal CT scan chest CT scan negative for metastatic cancer in the abdomen or ascites. Patient states he will follow-up with primary care provider and oncologist in [place]. Not suspecting PE. Patient has no chest pain or shortness of breath. Patient explained worrisome sign informed to follow up with ED and primary care provider. Not suspecting PE, SC, Pneumonia, CHF, Ascites, SBO, COPD exacerbation, arterial occlussion, or compartment syndrome. Differential Diagnosis Differential Diagnoses: The differential diagnosis associated with the presentation includes (Failure, DVT, ascites, metastatic) Admission/Observation Consideration of admission/observation: Escalation of care including admission/observation considered Lab Data [facility] Lab Attestation statement: I reviewed the patient's lab results. 09/21/23 21:22 09/21/23 16:23 Labs: Lab Results 09/21/23 09/21/23 Range/Units 16:23 21:22 WBC 5.7 (4.8-10.8) X10*3/uL RBC 3.78 L (4.60-5.80) X10*6/uL Hgb 10.8 L (14.0-18.0) g/dl Hct 34.0 L (42.0-52.0) % MCV 89.9 (80.0-98.0) fL MCH 28.6 (27.0-33.0) pg MCHC 31.8 (31.0-36.0) g/dl RDW 13.5 (11.0-16.0) % Plt Count 229 (160-400) X10*3/uL MPV 9.4 (9.4-12.4) fL Immature Gran % (Auto) 0.2 (0.0-0.4) % Neut % (Auto) 33.6 L (45-73) % Lymph % (Auto) 57.9 H (20-40) % [place] % (Auto) 7.2 (2-11) % Eos % (Auto) 0.9 (0-4) % Baso % (Auto) 0.2 (0-2) % Lymph # (Auto) 3.3 (1.2-4.9) X10*3/uL [place] # (Auto) 0.4 (0.1-1.2) X10*3/uL Eos # (Auto) 0.1 (0.0-0.4) X10*3/uL Baso # (Auto) 0.0 (0.0-0.2) X10*3/uL Abs Immat Gran (auto) 0.01 (0.00-0.03) X10*3/uL Absolute Neuts (auto) 1.9 L (2.0-8.3) x10*3/uL Absolute Nucleated RBC 0.000 (0.0-0.012) X10*3/uL Nucleated RBC % (auto) 0.0 (0.0-0.2) /100WBC Sodium 141 (135-145) mmol/L Potassium 3.7 (3.3-5.1) mmol/L Chloride 100 (96-108) mmol/L Carbon Dioxide 28 (22-29) mmol/L Anion Gap 17 (12-20) BUN 20 H (9-16) mg/dL Creatinine 1.11 (0.5-1.4) mg/dL Estim Creat Clear Calc 111.6 Estimated GFR > 60 Random Glucose 109 (60-115) mg/dL Calcium 9.6 D (8.4-10.2) mg/dL Total Bilirubin 0.3 (0.0-1.0) mg/dL AST 35 (5-37) U/L ALT 40 (0-40) U/L Alkaline Phosphatase 66 (39-117) U/L B-Natriuretic Peptide < 10 (<100) pg/mL Total Protein 8.1 H (6.5-8.0) g/dL Albumin 4.4 (3.5-5.0) g/dL Independent Interpretation I performed an independent interpretation of an: CT Scan Radiology Impression Discussion of test interpretation with radiology: I have reviewed the radiologist's reading. Independent Historian Clinical information obtained from an independent historian. History obtained from or confirmed by: Other (Patient) External Record Review External record reviewed: Other (Prior visit) Discharge Plan Discharge Clinical Impression: Leg edema Patient Disposition: Home, Self-Care Instructions: Leg Edema (ED), Edema (ED) Additional Instructions: Recommend follow-up with the oncologist and primary care provider. Return to the ED for any chest pain, shortness of breath, dizziness, coughing up blood, fever, chills, calf pain, increased leg swelling, dizziness, passing out, or any other concerning symptoms. CT/CT chest wo IV con IMPRESSION: 1. Left lower lobe mass is slightly bigger than previously. Stable mediastinal lymph nodes. 2. No evidence of metastatic disease in the abdomen or pelvis. 3. Incidental note made of enlarged fatty liver, hepatic cyst, symmetrically thickened adrenal glands, mild BPH and other findings described above. Fleischner guidelines were followed. US/US venous duplex LE BI IMPRESSION: No DVT demonstrated in the lower extremity. XR/XR chest 2V IMPRESSION: 1. No acute abnormality of chest. 2. Redemonstration of the lung mass at the peripheral left lung base. Prescriptions: No Action Flonase Sensimist 27.5 mcg/actuation spray,suspension 2 spray intranasal DAILY Qty: 6.6 0RF Rx Instructions: into each nostril losartan-hydrochlorothiazide 100-25 mg tablet 1 tab PO DAILY diltiazem HCl 360 mg capsule,extended release 24hr 360 mg PO DAILY atorvastatin 40 mg tablet 40 mg PO DAILY losartan 100 mg tablet 100 mg PO DAILY metformin 1,000 mg tablet 1,000 mg PO BID Mekinist 2 mg tablet 2 mg PO DAILY omeprazole 20 mg capsule,delayed release(DR/EC) 20 mg PO DAILY amoxicillin 500 mg capsule 500 mg PO Q8H Qty: 30 0RF Interventions: ED Discharge Assessment Last Done: 09/22/23 00:34 Discharge Date/Time: 09/22/23 00:35 Print Language: German
[2023-09-21 16:54] LABS: Alanine Aminotransferase 40 U/L (0-40); Albumin Level 4.4 g/dL (3.5-5.0); Alkaline Phosphatase 66 U/L (39-117); Anion Gap 17 (12-20); Aspartate Amino Transferase 35 U/L (5-37); Bilirubin Total 0.3 mg/dL (0.0-1.0); Blood Urea Nitrogen 20 mg/dL (9-16); Calcium 9.6 mg/dL (8.4-10.2); Carbon Dioxide 28 mmol/L (22-29); Chloride 100 mmol/L (96-108); Creatinine Clr Calc Pharmacy 111.6; Estimated Glomerular Filt Rate > 60; Glucose Random 109 mg/dL (60-115); Potassium 3.7 mmol/L (3.3-5.1); Sodium 141 mmol/L (135-145); Total Protein 8.1 g/dL (6.5-8.0)
[2023-09-21 20:45] VITALS: BP 130/87; PULSE 74; RESP 20; TEMP 36.8; O2SAT 99
--- OUTSIDE RECORDS SUMMARY | 2023-09-21 20:45 | XMS_ITS | Continuity of Care Document ---
Author Organization [facility] Address [address] [place] [address]- Care Team Providers Care Cook Cashier Food Prep Name Role Phone Brandon MIRANDA, [facility] Primary Care Physician Encounter [facility] Date(s): 02/24/22 - 03/26/22 [facility] [address] [place] [id number] Allergies, Adverse Reactions, Alerts No Known Allergies Immunizations Given and Recorded Vaccine Date Status Refusal Reason SARS-CoV-2 (COVID-19) mRNA BNT-162b2 vac 08/13/20 Recorded tetanus/diphtheria/pertussis, acel(Tdap) 12/27/18 Given tetanus-diphtheria toxoids (Td) 12/01/11 Recorded Medications atorvastatin 20 mg oral tablet 1 tablet, By Mouth, Daily, # 90 tablet, 3 Refills, Maintenance, 03/16/22 12:18:00 EST, [id number], 193, cm, 03/12/22 10:49:00 EST, Height, 107, kg, 02/16/22 11:18:00 EST, Dry Weight Start Date: 03/16/22 Status: Ordered Azithromycin 5 Day Dose Pack 250 mg oral tablet 1 pack/packet, By Mouth, Once, as directed on package labeling, # 6 tablet, 0 Refills, Soft Stop, 09/25/21 11:02:00 EDT, Tablet, [id number], Partial fill upon patient request if the prescription is for a schedule II opioid drug., 193, cm, 08/29... Start Date: 09/25/21 Status: Ordered dabrafenib 75 mg oral capsule 2 capsule = 150 mg, By Mouth, 2 times a day, # 120 capsule, 11 Refills, Maintenance, 02/22/22 10:06:00 EST, Capsule, Partial fill upon patient request if the prescription is for a schedule II opioid drug. Start Date: 02/22/22 Status: Ordered DilTIAZem (Eqv-Cardizem CD) 180 mg/24 hours oral capsule, extended release 1 capsule, By Mouth, Daily, PATIENT NEEDS OFFICE APPOINTMENT 11/20/21, # 90 capsule, 1 Refills, Maintenance, 11/20/21 19:17:00 EDT, [facility]/pharmacy #[id number], 193, cm, 09/25/21 8:45:00 EDT, Height Start Date: 11/20/21 Stop Date: 05/19/22 Status: Ordered Emgality Prefilled Syringe 100 mg/mL subcutaneous solution = 300 mg, Subcutaneous Injection, Every 28 days, # 3 kit, 5 Refills, Maintenance, 05/05/21 11:56:00EST, Solution, [facility], Partial fill upon patient request if the prescription is for a schedule II opioid drug., 193, cm, 05/05/21... Start Date: 05/05/21 Status: Ordered Freestyle Lancets See Instructions, # 100 each, Refills 3, Tot. Refills 3, Maintenance, Use to check glucose once daily or as instructed by phsician, 03/30/21 9:16:00 EST, Supply, 193, cm, 02/04/21 16:01:00 EST, Height Start Date: 03/30/21 Status: Ordered Freestyle Lite Monitor See Instructions, # 1 each, Maintenance, Check glucose once daily or as directed by physician, 11/26/20 15:40:00 EDT, Supply, 193, cm, 08/18/20 9:51:00 EDT, Height, 125, kg, 12/12/18 13:42:00 EDT, Dry Weight Start Date: 11/26/20 Status: Ordered FREESTYLE LITE TEST STRIP FREESTYLE LITE TEST STRIP, See Instructions, # 100 Unknown, 3 Refills, Maintenance, USE TO CHECK GLUCOSE ONCE DAILY OR DIRECTED BY PHYSICIAN, 01/13/22 9:33:00 EST, 193, cm, 01/01/22 9:25:00 EDT, Height, 110.2, kg, 01/01/22 9:25:00 EDT, Dry Weight Start Date: 01/13/22 Status: Ordered Freestyle Test Strips See Instructions, # 100 each, Refills 3, Tot. Refills 3, Maintenance, Use to check glucose once daily or as directed by physician, 12/27/20 16:47:00 EDT, Supply, 193, cm, 12/02/20 12:59:00 EDT, Height Start Date: 12/27/20 Status: Ordered Home Blood Pressure Monitor See Instructions, # 1 each, Maintenance, Large blood pressure cuff, 07/18/20 10:14:00 EDT, Supply Start Date: 07/18/20 Status: Ordered ibuprofen 600 mg oral tablet 1, tablet, By Mouth, Every 8 hours, PRN, # 90 tablet, Refills 0, Maintenance, NEEDED FOR MODERATE PAIN FOR, 02/23/22 8:53:00 EST, Route to Pharmacy Electronically, [id number], 193, cm, 02/16/22 11:18:00 EST, Height, 107, kg, 02/16/22 11:18:00... Start Date: 02/23/22 Stop Date: 03/25/22 Status: Ordered loperamide 2 mg oral capsule 4 mg, 2, capsule, By Mouth, Every 4 hours, not to exceed 8 capsules, or 16 mg, in 24 hours after each loose stool, # 60 capsule, Refills 1, Tot. Refills 1, Maintenance, 03/12/22 10:33:00 EST, Route to Pharmacy Electronically, [facility]/pharmacy #[id number], Part... Start Date: 03/12/22 Status: Ordered losartan 50 mg oral tablet 1 tablet, By Mouth, Daily, # 90 tablet, 1 Refills, Maintenance, 01/13/22 9:33:00 EST, [id number], 193, cm, 01/01/22 9:25:00 EDT, Height, 110.2, kg, 01/01/22 9:25:00 EDT, Dry Weight Start Date: 01/13/22 Status: Ordered metFORMIN 1000 mg oral tablet 1 tablet, By Mouth, 2 times a day, # 60 tablet, 5 Refills, Maintenance, 01/13/22 9:33:00 EST, [id number], 193, cm, 01/01/22 9:25:00 EDT, Height, 110.2, kg, 01/01/22 9:25:00 EDT, Dry Weight Start Date: 01/13/22 Status: Ordered NuLYTELY with Flavor Packs oral powder for reconstitution See Instructions, Drink 240mL every 15-20 minutes until first half is gone. Repeat 6 hours prior toprocedure., # 4,000 mL, 0 Refills, Maintenance, 03/19/21 12:55:00 EST, [facility]/pharm[facility] #[id number], Partial fill upon patient request if the prescription is fo... Start Date: 03/19/21 Status: Ordered omeprazole 20 mg oral enteric coated capsule See Instructions, TAKE 1 CAPSULE BY MOUTH DAILY BEFORE A MEAL X30 DAYS, # 90 capsule, 1 Refills, Maintenance, 11/20/21 19:18:00 EDT, [id number], PATIENT NEEDS TO CALL OFFICE FOR APPOINTMENT, [address], 09/25/21 8:45:00 EDT, Height Start Date: 11/20/21 Status: Ordered prochlorperazine 5 mg oral tablet 1 tablet = 5 mg, By Mouth, Every 6 hours, PRN Nausea & Vomiting, may cause drowsiness, # 30 tablet, 0 Refills, Maintenance, 03/18/22 9:30:00 EST, [facility]/pharm[facility] #[id number], Partial fill upon patient request if the prescription is for a schedule II opioid heraclio... Start Date: 03/18/22 Status: Ordered SUMAtriptan 100 mg oral tablet 1 tablet = 100 mg, By Mouth, Daily, PRN for migraine headache, may repeat dose after 2 hours up to a maximum of 2, # 9 tablet, 0 Refills, Acute 02/08/23 16:46:00 EST, 05/05/21 16:45:00 EST, Tablet, [facility], 193, cm, 05/05/21 11:20:... Start Date: 05/05/21 Stop Date: 02/08/23 Status: Ordered trametinib 2 mg oral tablet 1 tablet = 2 mg, By Mouth, Daily, At least one hour before or two hours after a meal, # 30 tablet, 11 Refills, Maintenance, 02/22/22 10:09:00 EST, Tablet, Partial fill upon patient request if the prescription is for a schedule II opioid drug. Start Date: 02/22/22 Status: Ordered Problem List Condition Confirmation Course Effective Dates Status H ealth Status Informant Cluster headache Confirmed Active Diabetes Confirmed Active GERD (gastroesophageal reflux disease) Confirmed Active Hyperlipidemia Confirmed Active HTN (hypertension) Confirmed Active Elevated cholesterol with high triglycerides Confirmed 01/11/20 Active Tobacco use Confirmed Active Tubular adenoma of colon 1 Confirmed 04/24/21 Active 1repeat screening colonoscopy in 2024 Social History Social History Type Response Tobacco Use: 4 or less cigar ettes(less than 1/4 pack)/day in last 30 days. Interested in cessation: Yes. Other: 3-4 CIG/DAY FROM 1 PACK EVERY 2-3 DAYS X 30+ YEARS. Sex Patient Care team information Care Team Personnel Name: Aubrey Taylor MD Position: [facility] Primary Care Physician Member Role: PCP Address: Address: [address] [place] [address] [address] [place], [place] [address] Name: Tarah Schmitt RN Position: [facility] RN Member Role: Primary Care Nurse Name: Maricruz Vinson RN Position: S RN Member Role: Primary Care Nurse Name: Melodie Hampton Position: [facility] Onco RN Member Role: Primary Care Nurse Care Team Related Persons Name: ELIJAH MARIA Address: home [address] [place] [address] Name: ABDIRAHMAN LEON Name: JONATHAN LEON Address: home [address] [place] [address]
--- OUTSIDE RECORDS SUMMARY | 2023-09-21 20:45 | XMS_ITS | Continuity of Care Document ---
Author Organization [facility] Address [address] [place] [id number]- Care Team Providers Care Tumbling Instructor Name Role Phone Brandon MIRANDA, Aubrey Primary Care Physician Encounter [facility] Date(s): 09/19/19 - 10/19/19 [facility] [address] [place] [id number] Allergies, Adverse Reactions, Alerts Substance Reaction Severity Status NKA Active Immunizations Given and Recorded Vaccine Date Status Refusal Reason tetanus/diphtheria/pertussis, acel(Tdap) 12/27/18 Given Medications DilTIAZem Hydrochloride ER 180 mg/24 hours oral capsule, extended release See Instructions, # 30 capsule, Refills 5 Tot. Refills 5, TAKE 1 CAPSULE BY MOUTH EVERY DAY, [id number] Start Date: 12/18/18 Status: Ordered nicotine 14 mg/24 hr transdermal film, extended release 1 patch, Topically, Daily, # 28 patch, 0 Refills, Acute, 08/15/19 9:04:00 EDT, [id number], 28,APPLY 1 PATCH TOPICALLY DAILY, 193, cm, 05/14/19 10:06:00 EDT, Height, 125, kg, 12/12/18 13:42:00 EDT, Dry Weight Start Date: 08/15/19 Status: Ordered NuLYTELY with Flavor Packs oral powder for reconstitution 240 mL, By Mouth, Every 10 minutes, # 1 each, 0 Refills, Maintenance, 01/08/19 12:34:18 EST, REC Powder, test date 05/14/19, 240 mL By Mouth Every 10 minutes Start Date: 01/08/19 Status: Ordered omeprazole 20 mg oral enteric coated capsule 1 capsule = 20 mg, By Mouth, 2 times a day, before a meal, # 60 capsule, 2 Refills, Maintenance, 09/07/19 14:37:00 EDT, EC Capsule, [id number], 193, cm, 05/14/19 10:06:00 EDT, Height, 125, kg, 12/12/18 13:42:00 EDT, Dry Weight Start Date: 09/07/19 Status: Ordered Sumatriptan Once, 0 Refills, Maintenance, 03/13/18 16:47:05 EST Start Date: 03/13/18 Status: Ordered Suprep Bowel Prep Kit oral liquid See Instructions, as instructed by office, # 1 kit, 0 Refills, Maintenance, 05/14/19 11:14:00 EDT, [id number], as instructed by office, 193, cm, 05/14/19 10:06:00 EDT, Height, 125, kg, 12/12/18 13:42:00 EDT, Dry Weight Start Date: 05/14/19 Status: Ordered Problem List Condition Effective Dates Status Health Status Inform ant Cluster headache(Confirmed) Active GERD (gastroesophageal reflu x disease)(Confirmed) Active Hyperlipidemia(Confirmed) Active HTN (hypertension)(Confirmed) Active Obesity(Confirmed) Active Prediabetes(Confirmed) Active Tobacco use(Confirmed) Active Social History Social History Type Response Smoking Status 10 or more cigarette s (1/2 pack or more)/day in last 30 days entered on: 01/12/19 Sex
--- OUTSIDE RECORDS SUMMARY | 2023-09-21 20:45 | XMS_ITS | Continuity of Care Document ---
Author Organization [facility] Adult Address [address] [place] [address]- Care Team Providers Care Iron Caster Name Role Phone Brandon MIRANDA, [facility] Primary Care Physician [place] [facility] [place](s): 12/02/20 - 12/09/20 [facility] [address] [place] [id number]- Encounter Diagnosis Type 2 diabetes mellitus, uncontrolled(Discharge Diagnosis) - 12/02/20 HTN (hypertension)(Discharge Diagnosis) - 12/02/20 Hyperlipidemia(Discharge Diagnosis) - 12/02/20 Obesity(Discharge Diagnosis) - 12/02/20 Elevated cholesterol with high triglycerides(Discharge Diagnosis) - 12/02/20 Attending Physician: Janeth MIRANDA, [place] Allergies, Adverse Reactions, Alerts Substance Reaction Severity Status NKA Active Immunizations Given and Recorded Vaccine Date Status Refusal Reason tetanus/diphtheria/pertussis, acel(Tdap) 12/27/18 Given tetanus-diphtheria toxoids (Td) 12/01/11 Recorded Medications diltiazem 180 mg/24 hours oral capsule, extended release 180 mg, 1, capsule, By Mouth, Daily, # 30 capsule, Refills 11, Tot. Refills 11, Maintenance, 07/18/20 10:07:00 EDT, Route to Pharmacy Electronically, [facility]/pharmacy #[id number], 193, cm, 07/18/20 9:23:00 EDT, Height, 125, kg, 12/12/18 13:42:00 EDT, Dry Weight Start Date: 07/18/20 Stop Date: 07/13/21 Status: Ordered Freestyle Lancets See Instructions, # 100 each, Maintenance, Use to check glucose once daily or as instructed by phsician, 11/26/20 15:34:00 EDT, Supply, 193, cm, 08/18/20 9:51:00 EDT, Height, 125, kg, 12/12/18 13:42:00 EDT, Dry Weight Start Date: 11/26/20 Status: Ordered Freestyle Lite Monitor See Instructions, # 1 each, Maintenance, Check glucose once daily or as directed by physician, 11/26/20 15:40:00 EDT, Supply, 193, cm, 08/18/20 9:51:00 EDT, Height, 125, kg, 12/12/18 13:42:00 EDT, Dry Weight Start Date: 11/26/20 Status: Ordered Freestyle Test Strips See Instructions, # 100 each, Maintenance, Use to check glucose once daily or as directed by physician, 11/26/20 15:35:00 EDT, Supply, 193, cm, 08/18/20 9:51:00 EDT, Height, 125, kg, 12/12/18 13:42:00 EDT, Dry Weight Start Date: 11/26/20 Status: Ordered Home Blood Pressure Monitor See Instructions, # 1 each, Maintenance, Large blood pressure cuff, 07/18/20 10:14:00 EDT, Supply Start Date: 07/18/20 Status: Ordered ibuprofen 600 mg oral tablet 600 mg, 1, tablet, By Mouth, Every 8 hours, PRN, # 30 tablet, Refills 0, Tot. Refills 0, Maintenance, Pain , Moderate, 12/02/20 13:02:00 EDT, Route to Pharmacy Electronically, [facility]/pharmacy #[id number], Partial fill upon patient request if the prescription i... Start Date: 12/02/20 Status: Ordered losartan 25 mg oral tablet 25 mg, 1, tablet, By Mouth, Daily, # 30 tablet, Refills 6, Tot. Refills 6, Maintenance, 07/18/20 10:06:00 EDT, Route to Pharmacy Electronically, [facility]/pharmacy #[id number], Partial fill upon patient request if the prescription is for a schedule II opioid drug... Start Date: 07/18/20 Stop Date: 02/13/21 Status: Ordered metFORMIN 1000 mg oral tablet 1 tablet = 1,000 mg, By Mouth, 2 times a day, # 60 tablet, 5 Refills, Maintenance, 12/02/20 13:01:00 EDT, Tablet, [facility]/pharmacy #[id number], Partial fill upon patient request if the prescription is for a schedule II opioid drug., 193, cm, 12/02/20 12:59:00 E... Start Date: 12/02/20 Status: Ordered omeprazole 20 mg oral enteric coated capsule 1 capsule = 20 mg, By Mouth, Daily, before a meal, # 30 capsule, 11 Refills, Maintenance, 07/22/20 9:34:00 EDT, EC Capsule, [facility]/pharmacy #[id number], 193, cm, 07/18/20 10:08:00 EDT, Height, 125, kg, 12/12/18 13:42:00 EDT, Dry Weight Start Date: 07/22/20 Stop Date: 07/17/21 Status: Ordered Sumatriptan Once, 0 Refills, Maintenance, 03/13/18 16:47:05 EST Start Date: 03/13/18 Status: Ordered Problem List Condition Effective Dates Status Health Status Inform ant Cluster headache(Confirmed) Active GERD (gastroesophageal reflu x disease)(Confirmed) Active Hyperlipidemia(Confirmed) Active HTN (hypertension)(Confirmed) Active Elevated cholesterol with hi gh triglycerides(Confirmed) 01/11/20 Active Obesity(Confirmed) Active Tobacco use(Confirmed) Active Type 2 diabetes mellitus, uncontrolled(Confirmed) Active Diagnosis Diagnosis Type Effective Dates Health Status Clinical Service Informant Type 2 diabetes mellitus, uncontrolled Discharge Diagnosis 12/02/20 HTN (hypertension) Discharge Diagnosis 12/02/20 Hyperlipidemia Discharge Diagnosis 12/02/20 Obesity Discharge Diagnosis 12/02/20 Elevated cholesterol with high triglycerides Discharge Diagnosis 12/02/20 Vital Signs Most recent to oldest [Reference Range]: 1 2 Height 193 cm (12/02/20 12:59 PM) 193 cm (12/02/20 12:32 PM) Weight 122.2 kg (12/02/20 12:32 PM) Oxygen Saturation [94-100 %] 97 % (12/02/20 12:59 PM) 84 % *L* (12/02/20 12:32 PM) Pulse Rate [55-90 bpm] 80 bpm (12/02/20 12:59 PM) 92 bpm *H* (12/02/20 12:32 PM) Body Mass Index [18.5-24.99] 32.81 *>HHI* (12/02/20 12:32 PM) Blood Pressure [90-138/55-84 mm Hg] 132/ 72mm Hg (12/02/20 12:32 PM) Temperature [96.8-100.4 DegF] 98.2 DegF (12/02/20 12:32 PM) Blood pressure sites Arm, left (12/02/20 12:32 PM) Temperature Route Oral (12/02/20 12:32 PM) Social History Social History Type Response Smoking Status 10 or more cigarette s (1/2 pack or more)/day in last 30 days entered on: 01/12/19 Sex
--- OUTSIDE RECORDS SUMMARY | 2023-09-21 20:45 | XMS_ITS | Continuity of Care Document ---
Author Organization [facility] Address [address] [place] [address], [address] [place] [address]- Care Team Providers Care Microstrategy Developer Name Role Phone Brandon MIRANDA, Aubrey Primary Care Physician Encounter [facility] Date(s): 01/19/22 - 02/18/22 [facility] [address] [place] [address], [address] [place], [place] [address] Attending Physician: Admtr, Ar8 Admitting Physician: Admtr, Ar8 Referring Physician: Admtr, Ar8 Allergies, Adverse Reactions, Alerts No Known Allergies Immunizations Given and Recorded Vaccine Date Status Refusal Reason SARS-CoV-2 (COVID-19) mRNA BNT-162b2 vac 08/13/20 Recorded tetanus/diphtheria/pertussis, acel(Tdap) 12/27/18 Given tetanus-diphtheria toxoids (Td) 12/01/11 Recorded Medications atorvastatin 20 mg oral tablet 1 tablet = 20 mg, By Mouth, Daily, # 90 tablet, 3 Refills, Maintenance, 05/15/21 10:02:00 EDT, Tablet, [id number], Partial fill upon patient request if the prescription is for a schedule II opioid drug., 193, cm, 05/15/21 8:55:00 EDT, Height Start Date: 05/15/21 Stop Date: 05/10/22 Status: Ordered Azithromycin 5 Day Dose Pack 250 mg oral tablet 1 pack/packet, By Mouth, Once, as directed on package labeling, # 6 tablet, 0 Refills, Soft Stop, 09/25/21 11:02:00 EDT, Tablet, [id number], Partial fill upon patient request if the prescription is for a schedule II opioid drug., 193, cm, 08/29... Start Date: 09/25/21 Status: Ordered DilTIAZem (Eqv-Cardizem CD) 180 mg/24 hours oral capsule, extended release 1 capsule, By Mouth, Daily, PATIENT NEEDS OFFICE APPOINTMENT 11/20/21, # 90 capsule, 1 Refills, Maintenance, 11/20/21 19:17:00 EDT, [facility]/pharmacy #[id number], 193, cm, 09/25/21 8:45:00 EDT, Height Start Date: 11/20/21 Stop Date: 05/19/22 Status: Ordered Emgality Prefilled Syringe 100 mg/mL subcutaneous solution = 300 mg, Subcutaneous Injection, Every 28 days, # 3 kit, 5 Refills, Maintenance, 05/05/21 11:56:00EST, Solution, [facility], Partial fill upon patient request [...] 0, Maintenance, NEEDED FOR MODERATE PAIN FOR, 10/26/21 8:03:00 EDT, Route to Pharmacy Electronically, [id number], 193, cm, 09/25/21 8:45:00 EDT, Height Start Date: 10/26/21 Stop Date: 11/25/21 Status: Ordered losartan 50 mg oral tablet 1 tablet, By Mouth, Daily, # 90 tablet, 1 Refills, Maintenance, 01/13/22 9:33:00 EST, [id number], 193, cm, 01/01/22 9:25:00 EDT, Height, 110.2, kg, 01/01/22 9:25:00 EDT, Dry Weight Start Date: 01/13/22 Status: Ordered metFORMIN 1000 mg oral tablet 1 tablet, By Mouth, 2 times a day, # 60 tablet, 5 Refills, Maintenance, 01/13/22 9:33:00 EST, [id number], 193, cm, 01/01/22 9:25:00 EDT, Height, 110.2, kg, 01/01/22 9:25:00 EDT, Dry Weight Start Date: 01/13/22 Status: Ordered NuLYTELY with Flavor Packs oral powder for reconstitution See Instructions, Drink 240mL every 15-20 minutes until first half is gone. Repeat 6 hours prior toprocedure., # 4,000 mL, 0 Refills, Maintenance, 03/19/21 12:55:00 EST, [facility]/pharmacy #[id number], Partial fill upon patient request if the prescription is fo... Start Date: 03/19/21 Status: Ordered omeprazole 20 mg oral enteric coated capsule See Instructions, TAKE 1 CAPSULE BY MOUTH DAILY BEFORE A MEAL X30 DAYS, # 90 capsule, 1 Refills, Maintenance, 11/20/21 19:18:00 EDT, [facility]/pharmacy #[id number], PATIENT NEEDS TO CALL OFFICE FOR APPOINTMENT, 193, cm, 09/25/21 8:45:00 EDT, Height Start Date: 11/20/21 Status: Ordered SUMAtriptan 100 mg oral tablet 1 tablet = 100 mg, By Mouth, Daily, PRN for migraine headache, may repeat dose after 2 hours up to a maximum of 2, # 9 tablet, 0 Refills, Acute 02/08/23 16:46:00 EST, 05/05/21 16:45:00 EST, Tablet, [facility], 193, cm, 05/05/21 11:20:... Start Date: 05/05/21 Stop Date: 02/08/23 Status: Ordered Problem List Condition Confirmation Course [...] Care team information Care Team Personnel [facility]: [facility] Position: [facility] Primary Care Physician Member Role: PCP Address: Address: [address] [place] [address] [address] [place] [address]- Name: Tarah Schmitt RN Position: S RN Member Role: Primary Care Nurse Name: Maricruz Vinson RN Position: S RN Member Role: Primary Care Nurse Name: Melodie Hampton Position: [facility] Onco RN Member Role: Primary Care Nurse Care Team Related Persons Name: ELIJAH MARIA Address: home [address] [place], [place] Name: ABDIRAHMAN LEON Name: JONATHAN LEON Address: home [address] [place], [place]
--- OUTSIDE RECORDS SUMMARY | 2023-09-21 20:45 | XMS_ITS | Continuity of Care Document ---
Author Organization [facility] Adult Address [address] [place] [address]- Care Team Providers Care Fish Skinning Machine Feeder Name Role Phone Brandon MIRANDA, Aubrey Primary Care Physician [place] [facility] [place] 11/24/[place] - 12/01/21 [facility] [address] [place] [address]- Attending Physician: Not on Staff, Attending MD Allergies, Adverse Reactions, Alerts No Known Allergies [...] By Mouth, Daily, PATIENT NEEDS OFFICE APPOINTMENT 9/23/22, # 90 capsule, 1 Refills, Maintenance, 11/20/21 19:17:00 EDT, [facility]/pharmacy #[id number], 193, cm, 09/25/21 8:45:00 EDT, Height Start Date: 11/20/21 Stop Date: 05/19/22 Status: Ordered Emgality Prefilled Syringe 100 mg/mL subcutaneous solution = 300 mg, Subcutaneous Injection, Every 28 days, # 3 kit, 5 Refills, Maintenance, 05/05/21 11:56:00EST, Solution, [facility], Partial fill upon patient [...] 10/26/21 8:03:00 EDT, Route to Pharmacy Electronically, [id number], 193, cm, 09/25/21 8:45:00 EDT, Height Start Date: 10/26/21 Stop Date: 11/25/21 Status: Ordered losartan 50 mg oral tablet 75 mg, 1.5, tablet, By Mouth, Daily, # 90 tablet, Refills 1, Tot. Refills 1, Maintenance, 09/01/21 13:55:00 EDT, [id number] Partial fill upon patient request if the prescription is for a schedule II opioid dr... Start Date: 09/01/21 Stop Date: 12/30/21 Status: Ordered metFORMIN 1000 mg oral tablet 1 tablet = 1,000 mg, By Mouth, 2 times a day, # 60 tablet, 5 Refills, Maintenance, 01/13/21 10:41:00 EST, Tablet, [facility]/pharmacy #[id number], Partial fill upon patient request if the prescription is for a schedule II opioid drug., 193, cm, 01/13/21 10:15:00 E... Start Date: 01/13/21 Status: Ordered NuLYTELY with Flavor Packs oral powder for reconstitution See Instructions, Drink 240mL every 15-20 minutes until first half is gone. Repeat 6 hours prior toprocedure., # 4,000 mL, 0 Refills, Maintenance, 03/19/21 12:55:00 EST, [facility]/pharmacy #[id number], Partial fill upon patient request if the prescription is fo... Start Date: 03/19/21 Status: Ordered omeprazole 20 mg oral enteric coated capsule See Instructions, TAKE 1 CAPSULE BY MOUTH DAILY BEFORE A MEAL X30 DAYS, # 90 capsule, 1 Refills, Maintenance, 11/20/21 19:18:00 EDT, [facility]/pharmacy #[id number], PATIENT NEEDS TO CALL OFFICE FOR APPOINTMENT, 193, cm, 09/25/21 8:45:00 EDT, Height Start Date: 11/20/21 Status: Ordered SUMAtriptan 100 mg oral tablet 1 tablet = 100 mg, By Mouth, Daily, PRN for migraine headache, may repeat dose after 2 hours up to a maximum of 2, # 9 tablet, 0 Refills, Acute 02/08/23 16:46:00 EST, 05/05/21 16:45:00 EST, Tablet, [facility], 193, cm, 05/05/21 11:20:... [...] 04/24/21 Active 1repeat screening colonoscopy in 2024 Vital Signs Most recent to oldest [Reference Range]: 1 2 Height 193 cm (11/24/21 9:28 AM) 193 cm (11/24/21 9:24 AM) Oxygen Saturation [94-100 %] 100 % (11/24/21 9:24 AM) Pulse Rate [55-90 bpm] 74 bpm (11/24/21 9:28 AM) 74 bpm (11/24/21 9:24 AM) Blood Pressure [90-138/55-84 mm Hg] 147/ 87mm Hg *H* (11/24/21 9:28 AM) 147/81mm Hg *H* (11/24/21 9:24 AM) Mode of Delivery (Oxygen) Room air (11/24/21 9:24 AM) Blood pressure sites Arm, right (11/24/21 9:28 AM) Arm, right (11/24/21 9:24 AM) Social History Social History Type Response Smoking Status 10 or more cigarette s (1/2 pack or more)/day in last 30 days entered on: 01/12/19 Sex Patient Care team information Personnel Name: Brandon MIRANDA, [facility] Address: Address: [address] [place], [place] [address]
--- OUTSIDE RECORDS SUMMARY | 2023-09-21 20:45 | XMS_ITS | Continuity of Care Document ---
Author Organization [facility] Adult Address [address] [place] [address]- Care Team Providers Care Urology Surgeon Name Role Phone Brandon MIRANDA, [facility] Primary Care Physician Encounter [facility] [place] Date(s): 11/27/20 - 12/27/20 [facility] [address] [place] [address]- Allergies, Adverse Reactions, Alerts Substance Reaction Severity Status NKA Active Immunizations Given and Recorded Vaccine Date Status Refusal Reason tetanus/diphtheria/pertussis, acel(Tdap) 12/27/18 Given tetanus-diphtheria toxoids (Td) 12/01/11 Recorded Medications diltiazem 180 mg/24 hours oral capsule, extended release 180 mg, 1, capsule, By Mouth, Daily, # 30 capsule, Refills 11, Tot. Refills 11, Maintenance, 07/18/20 10:07:00 EDT, Route to Pharmacy Electronically, [facility]/pharmacy #[id number], 193, cm, 07/18/20 9:23:00 EDT, [...] 12/02/20 13:02:00 EDT, Route to Pharmacy Electronically, [facility]/pharmacy #[id number], Partial fill upon patient request if the prescription i... Start Date: 12/02/20 Status: Ordered losartan 25 mg oral tablet 25 mg, 1, tablet, By Mouth, Daily, # 30 tablet, Refills 6, Tot. Refills 6, Maintenance, 07/18/20 10:06:00 EDT, Route to Pharmacy Electronically, [facility]/pharmacy #[id number], Partial fill upon patient request if the prescription is for a schedule II opioid drug... Start Date: 07/18/20 Stop Date: 02/13/21 Status: Ordered metFORMIN 1000 mg oral tablet 1 tablet = 1,000 mg, By Mouth, 2 times a day, # 60 tablet, 5 Refills, Maintenance, 12/02/20 13:01:00 EDT, Tablet, [facility]/pharmacy #[id number], Partial fill upon patient request if the prescription is for a schedule II opioid drug., 193, cm, 12/02/20 12:59:00 E... Start Date: 12/02/20 Status: Ordered omeprazole 20 mg oral enteric coated capsule 1 capsule = 20 mg, By Mouth, Daily, before a meal, # 30 capsule, 11 Refills, Maintenance, 07/22/20 9:34:00 EDT, EC Capsule, [id number], 193, cm, 07/18/20 10:08:00 EDT, Height, [...] Active Type 2 diabetes mellitus, uncontrolled(Confirmed) Active Social History Social History Type Response Smoking Status 10 or more cigarette s (1/2 pack or more)/day in last 30 days entered on: 01/12/19 Sex
--- OUTSIDE RECORDS SUMMARY | 2023-09-21 20:45 | XMS_ITS | Continuity of Care Document ---
Author Organization [facility] Address [address] [place] [address]- Care Team Providers Care Utilization Reviewer Name Role Phone Brandon MIRANDA, [facility] Primary [facility] Phys[facility] ( [phone] [id number] Date(s): 03/12/[facility] - 04/11/22 [facility] [address] [place] [address]- Allergies, Adverse Reactions, Alerts No Known Allergies Immunizations Given and Recorded Vaccine Date Status Refusal Reason SARS-CoV-2 (COVID-19) mRNA BNT-162b2 vac 08/13/20 Recorded tetanus/diphtheria/pertussis, acel(Tdap) 12/27/18 Given tetanus-diphtheria toxoids (Td) 12/01/11 Recorded Medications atorvastatin 20 mg oral tablet 1 tablet, By Mouth, Daily, # 90 tablet, 3 Refills, Maintenance, 03/16/22 12:18:00 EST, [id number], 193, cm, 03/12/22 10:49:00 EST, Height, 107, kg, 02/16/22 11:18:00 EST, Dry Weight Start Date: 03/16/22 Status: Ordered Azithromycin 5 Day Dose Pack 250 mg oral tablet 1 pack/packet, By Mouth, Once, as directed on package labeling, # 6 tablet, 0 Refills, Soft Stop, 09/25/21 11:02:00 EDT, Tablet, [id number], Partial fill upon patient request if the [...] capsule, 1 Refills, Maintenance, 11/20/21 19:17:00 EDT, [facility]/pharmacy #[id number], 193, cm, 09/25/21 8:45:00 EDT, Height Start Date: 11/20/21 Stop Date: 05/19/22 Status: Ordered Emgality Prefilled Syringe 100 mg/mL subcutaneous solution = 300 mg, Subcutaneous Injection, Every 28 days, # 3 kit, 5 Refills, Maintenance, 05/05/21 11:56:00EST, Solution, [facility], Partial fill upon patient request [...] 02/23/22 8:53:00 EST, Route to Pharmacy Electronically, [id number], 193, cm, 02/16/22 11:18:00 EST, Height, 107, kg, 02/16/22 11:18:00... Start Date: 02/23/22 Stop Date: 03/25/22 Status: Ordered loperamide 2 mg oral capsule 4 mg, 2, capsule, By Mouth, Every 4 hours, not to exceed 8 capsules, or 16 mg, in 24 hours after each loose stool, # 60 capsule, Refills 1, Tot. Refills 1, Maintenance, 03/12/22 10:33:00 EST, Route to Pharmacy Electronically, [facility]/pharmacy #[id number], Part... Start Date: 03/12/22 Status: Ordered losartan 50 mg oral tablet 1 tablet, By Mouth, Daily, # 90 tablet, 1 Refills, Maintenance, 01/13/22 9:33:00 EST, [id number], 193, cm, 01/01/22 9:25:00 EDT, Height, 110.2, kg, 01/01/22 9:25:00 EDT, Dry Weight Start Date: 01/13/22 Status: Ordered metFORMIN 1000 mg oral tablet 1 tablet, By Mouth, 2 times a day, # 60 tablet, 5 Refills, Maintenance, 01/13/22 9:33:00 EST, [id number], 193, cm, 01/01/22 9:25:00 EDT, Height, 110.2, kg, 01/01/22 9:25:00 EDT, Dry Weight Start Date: 01/13/22 Status: Ordered NuLYTELY with Flavor Packs oral powder for reconstitution See Instructions, Drink 240mL every 15-20 minutes until first half is gone. Repeat 6 hours prior toprocedure., # 4,000 mL, 0 Refills, Maintenance, 03/19/21 12:55:00 EST, [facility]/pharmacy #[id number], Partial fill upon patient request [...] tablet, 0 Refills, Maintenance, 03/18/22 9:30:00 EST, [id number], Partial fill upon patient request [...] 02/08/23 16:46:00 EST, 05/05/21 16:45:00 EST, Tablet, [facility], 193, cm, 05/05/21 11:20:... Start [...] Team Personnel Name: Aubrey Taylor MD Position: [facility] Primary Care Physician Member Role: PCP Address: Address: [address] [place] [address] [address]rd [address] [place], [place] [address] Name: Tarah Schmitt RN Position: [facility] RN Member Role: Primary Care Nurse Name: Maricruz Vinson RN Position: S RN Member Role: Primary Care Nurse Name: Melodie Hampton Position: [facility] Onco RN Member Role: Primary Care Nurse Care Team Related Persons Name: ELIJAH MARIA Address: home [address] [address] Name: ABDIRAHMAN LEON Name: JONATHAN LEON Address: home [address] [place] [address]
--- OUTSIDE RECORDS SUMMARY | 2023-09-21 20:45 | XMS_ITS | Continuity of Care Document ---
Author Organization [facility] Address [address] [place] [address] [address], [address] [place] [address]- Care Team Providers Care Gas Treater Name Role Phone Brandon MIRANDA, [id number] Date(s): 12/10/21 - 01/13/22 [facility] [address] [place] [address] Drive, [address] [place] [address]- Attending Physician: Bang Jeronimo DO Allergies, Adverse Reactions, Alerts No Known Allergies [...] capsule, 1 Refills, Maintenance, 11/20/21 19:17:00 EDT, [id number], 193, cm, 09/25/21 8:45:00 EDT, Height Start Date: 11/20/21 Stop Date: 05/19/22 Status: Ordered Emgality Prefilled Syringe 100 mg/mL subcutaneous solution = 300 mg, Subcutaneous Injection, Every 28 days, # 3 kit, 5 Refills, Maintenance, 05/05/21 11:56:00EST, Solution, [facility], Partial fill upon patient request [...] 10/26/21 8:03:00 EDT, Route to Pharmacy Electronically, [id number], 193, cm, 09/25/21 8:45:00 EDT, Height Start Date: 10/26/21 Stop Date: 11/25/21 Status: Ordered losartan 50 mg oral tablet 1 tablet, By Mouth, Daily, # 90 tablet, 1 Refills, Maintenance, 01/13/22 9:33:00 EST, [id number], 193, cm, 01/01/22 9:25:00 EDT, Height, 110.2, kg, 01/01/22 9:25:00 EDT, Dry Weight Start Date: 01/13/22 Status: Ordered metFORMIN 1000 mg oral tablet 1 tablet, By Mouth, 2 times a day, # 60 tablet, 5 Refills, Maintenance, 01/13/22 9:33:00 EST, [id number], 193, cm, 01/01/22 9:25:00 EDT, Height, 110.2, kg, 01/01/22 9:25:00 EDT, Dry Weight Start Date: 01/13/22 Status: Ordered NuLYTELY with Flavor Packs oral powder for reconstitution See Instructions, Drink 240mL every 15-20 minutes until first half is gone. Repeat 6 hours prior toprocedure., # 4,000 mL, 0 Refills, Maintenance, 03/19/21 12:55:00 EST, [facility]pharm[facility] #[id number], Partial fill upon patient request if the prescription is fo... Start Date: 03/19/21 Status: Ordered omeprazole 20 mg oral enteric coated capsule See Instructions, TAKE 1 CAPSULE BY MOUTH DAILY BEFORE A MEAL X30 DAYS, # 90 capsule, 1 Refills, Maintenance, 11/20/21 19:18:00 EDT, [facility]pharm[facility] #[id number], PATIENT NEEDS TO CALL OFFICE FOR APPOINTMENT, robert Ramírez, 09/25/21 8:45:00 EDT, Height Start Date: 11/20/21 Status: Ordered SUMAtriptan 100 mg oral tablet 1 tablet = 100 mg, By Mouth, Daily, PRN for migraine headache, may repeat dose after 2 hours up to a maximum of 2, # 9 tablet, 0 Refills, Acute 02/08/23 16:46:00 EST, 05/05/21 16:45:00 EST, Tablet, [facility], 193, cm, 05/05/21 11:20:... Start [...] Team Personnel Name: Aubrey Taylor MD Position: [facility] Primary Care Physician Member Role: PCP Address: Address: [address] [place] [address] [address] [place] [address]- Name: Tarah Schmitt RN Position: S RN Member Role: Primary Care Nurse Name: Maricruz Vinson RN Position: S RN Member Role: Primary Care Nurse Name: Melodie Hampton Position: [facility] Onco RN Member Role: Primary Care Nurse Care Team Related Persons Name: ELIJAH MARIA Address: home [address] [place], [place] Name: ABDIRAHMAN LEON Name: JONATHAN LEON Address: home [address] [place], [place]
--- OUTSIDE RECORDS SUMMARY | 2023-09-21 20:45 | XMS_ITS | Continuity of Care Document ---
Author Organization [facility] Adult Address [address] [place] [address]- Care Team Providers Care Cooker Sulfite Name Role Phone Brandon MIRANDA, [facility] Primary Care Physician Encounter [facility] [place] Date(s): 06/29/22 - 07/29/22 [facility] [address] [place] [address]- Allergies, Adverse Reactions, Alerts No Known Allergies Immunizations Given and Recorded Vaccine Date Status Refusal Reason SARS-CoV-2 (COVID-19) mRNA BNT-162b2 vac 08/13/20 Recorded SARS-CoV-2 (COVID-19) mRNA BNT-162b2 vac 07/23/20 Recorded tetanus/diphtheria/pertussis, acel(Tdap) 12/27/18 Given tetanus-diphtheria toxoids (Td) 12/01/11 Recorded Not Given Vaccine Date Status Refusal Reason influenza virus vaccine, inactivated 05/07/22 Not Given Patient Refuses Medications aspirin 81 mg oral delayed release tablet 81 mg, 1, tablet, By Mouth, Daily, # 30 tablet, Refills 0, Maintenance, 05/05/22 23:23:00 EST, Partial fill upon patient request if the prescription is for a schedule II opioid drug. Start Date: 05/05/22 Status: Ordered atorvastatin 20 mg oral tablet 1 tablet, By Mouth, Daily, # 90 tablet, 3 Refills, Maintenance, 03/16/22 12:18:00 EST, [id number], 193, cm, 03/12/22 10:49:00 EST, Height, 107, kg, 02/16/22 11:18:00 EST, Dry Weight Start Date: 03/16/22 Status: Ordered Cane See Instructions, # 1 each, Maintenance, DX: Stage IV adenocarcinoma of lung ICD 10: C34.90, 06/11/22 11:59:00 EDT, Supply Start Date: 06/11/22 Status: Ordered dabrafenib 75 mg oral capsule 2 capsule = 150 mg, By Mouth, 2 times a day, # 120 capsule, 11 Refills, Maintenance, 02/22/22 10:06:00 EST, Capsule, Partial fill upon patient request if the prescription is for a schedule II opioid drug. Start Date: 02/22/22 Status: Ordered DilTIAZem (Eqv-Cardizem CD) 180 mg/24 hours oral capsule, extended release 1 capsule = 180 mg, By Mouth, Daily, TAKE 1 CAPSULE BY MOUTH DAILY FOR 90 DAYS, # 90 capsule, 0 Refills, Maintenance, 06/16/22 13:19:00 EDT, CD Capsule, [facility]/pharmacy #[id number], Partial fill upon patient request if the prescription is for a schedule II opi... Start Date: 06/16/22 Stop Date: 09/14/22 Status: Ordered diltiazem 120 mg/24 hours oral capsule, extended release 120 mg, 1, capsule, By Mouth, Daily, # 30 capsule, Refills 0, Tot. Refills 0, Maintenance, :52:00 EDT, Route to Pharmacy Electronically, [facility]/pharmacy #[id number], Partial fill upon patient request if the prescription is for a schedule II opioid dr... Start Date: 05/10/22 Stop Date: 06/09/22 Status: Ordered FREESTYLE 28G LANCETS FREESTYLE 28G LANCETS, See Instructions, # 100 Unknown, 3 Refills, Maintenance, USE TO CHECK GLUCOSE ONCE DAILY OR INSTRUCTED BY PHSICIAN, 07/09/22 8:34:00 EDT, 175, cm, 06/04/22 8:29:00 EDT, Height, 109, kg, 06/04/22 8:29:00 EDT, Dry Weight Start Date: 07/09/22 Status: Ordered Freestyle Lancets See Instructions, # 100 each, Refills 3, Tot. Refills 3, Maintenance, Use to check glucose once daily or as instructed by phsician, 07/08/22 12:30:00 EDT, Supply, 175, cm, 06/04/22 8:29:00 EDT, Height, 109, kg, 06/04/22 8:29:00 EDT, Dry Weight Start Date: 07/08/22 Status: Ordered Freestyle Lite Monitor See Instructions, [...] EDT, Height Start Date: 12/27/20 Status: Ordered indomethacin 25 mg oral capsule 1 capsule = 25 mg, By Mouth, 3 times a day, # 90 capsule, 0 Refills, Maintenance, 05/21/22 16:20:00EDT, [facility]/pharmacy #[id number], Partial fill upon patient request if the prescription is for a schedule IIopioid drug., 175, cm, 05/19/22 9:32:00 EDT, Height... Start Date: 05/21/22 Status: Ordered losartan 50 mg oral tablet 75 mg, 1.5, tablet, By Mouth, Daily, # 45 tablet, Refills 5, Tot. Refills 5, Maintenance, 07/06/22 15:32:00 EDT, Route to Pharmacy Electronically, [facility]/pharmacy #[id number], Partial fill upon patient request if the prescription is for a schedule II opioid dr... Start Date: 07/06/22 Stop Date: 01/02/23 Status: Ordered metFORMIN 1000 mg oral tablet 1 tablet, By Mouth, 2 times a day, # 60 tablet, 2 Refills, Maintenance, 07/13/22 11:11:00 EDT, [facility]/pharmacy #[id number], 175, cm, 06/04/22 8:29:00 EDT, Height, 109, kg, 06/04/22 8:29:00 EDT, Dry Weight Start Date: 07/13/22 Status: Ordered omeprazole 20 mg oral enteric coated capsule See Instructions, TAKE 1 CAPSULE BY MOUTH DAILY BEFORE A MEAL X30 DAYS, # 90 capsule, 1 Refills, Maintenance, 07/16/22 11:48:00 EDT, [facility]/pharmacy #[id number], PATIENT NEEDS TO CALL OFFICE FOR APPOINTMENT, 175, cm, 06/04/22 8:29:00 EDT, Height, 109, kg, 04/0... Start Date: 07/16/22 Status: Ordered Oxygen face mask Oxygen face mask, See Instructions, # 1 each, Refills 0, Tot. Refills 0, Maintenance, O2 fask mask to use with nebulizer, 05/18/22 16:08:00 EDT, Supply Start Date: 05/18/22 Status: Ordered predniSONE 10 mg oral tablet 1 tablet = 10 mg, By Mouth, Daily, Take in the a.m. with food, # 30 tablet, 11 Refills, Maintenance, 06/14/22 9:12:00 EDT, [facility]/pharmacy #[id number], Partial fill upon patient request if the prescription isfor a schedule II opioid drug., 175, cm, 06/04/22... Start Date: 06/14/22 Status: Ordered SHOWER CHAIR SHOWER CHAIR, See Instructions, # 1 each, Refills 0, Tot. Refills 0, Maintenance, DX: Stage IV adenocarcinoma of lung ICD 10: C34.90, 06/11/22 11:59:00 EDT, Supply Start Date: 06/11/22 Status: Ordered trametinib 2 mg oral tablet [...] Hyperlipidemia Confirmed Active HTN (hypertension) Confirmed Active Hypoxia Confirmed Active Malignant neoplasm of lower lobe, left bronchus or lung Confirmed Active Elevated cholesterol with high triglycerides Confirmed 01/11/20 Active Severe obesity (BMI 35.0-39.9) with comorbidity Confirmed Active Tobacco use Confirmed Active Tubular adenoma of colon 1 Confirmed 04/24/21 Active 1repeat screening colonoscopy in 2024 Social History Social History Type Response Smoking Status Former smoker, quit more than 30 days ago; Other: 20 pack year hx; entered on: 05/06/22 Sex Patient Care team information Care Team Personnel Name: Tarah Carbajal RN Position: S RN Member Role: Primary Care Nurse Name: Aubrey Taylor MD Position: S Physician - Primary Care Member Role: PCP Address: Address: [address] [place] [address] [address] [place] [address]- [place] Name: Maricruz Vinson RN Position: S RN Member Role: Primary Care Nurse Name: Melodie Hampton Position: [facility] Onco RN Member Role: Primary Care Nurse Name: Emeka Patel MD Position: [facility] Renal MD Member Role: Lifetime Consulting Physician Address: Address: [address] [facility], [place] [address]- [place] Name: Kevin Cool RN Position: S RN Member Role: Primary Care Nurse Care Team Related Persons Name: ELIJAH MARIA Address: home [address] [place] [address] Name: ABDIRAHMAN LEON Name: JONATHAN LEON Address: home [address] [place] [address]
--- OUTSIDE RECORDS SUMMARY | 2023-09-21 20:45 | XMS_ITS | Continuity of Care Document ---
Author Organization [facility] Adult Address [address] [place] [address]- Care Team Providers Care Rocket Motor Mechanic Name Role Phone Brandon MIRANDA, Aubrey Primary Care Physician Encounter [facility] Date(s): 04/28/20 - 05/28/20 [facility] Adult [address] [place] [address]- Attending Physician: Ashley Craft Admitting Physician: AdmAshley blackman Referring Physician: AdmtrAshley Allergies, Adverse Reactions, Alerts Substance Reaction Severity Status NKA Active Immunizations Given and Recorded Vaccine Date Status Refusal Reason tetanus/diphtheria/pertussis, acel(Tdap) 12/27/18 Given Medications diltiazem 180 mg/24 hours oral capsule, extended release 180 mg, 1, capsule, By Mouth, Daily, # 30 capsule, Refills 11, Tot. Refills 11, Maintenance, 01/09/20 10:49:00 EST, Route to Pharmacy Electronically, [facility]/pharmacy #[id number], 193, cm, 05/14/19 10:06:00 EDT, Height, 125, kg, 12/12/18 13:42:00 EDT, Dry Weight Start Date: 01/09/20 Stop Date: 01/03/21 Status: Ordered omeprazole 20 mg oral enteric coated capsule 1 capsule = 20 mg, By Mouth, 2 times a day, before a meal, # 60 capsule, 2 Refills, Maintenance, 01/09/20 10:42:00 EST, EC Capsule, [facility]/pharmacy #[id number], 193, cm, 05/14/19 10:06:00 EDT, Height, 125, kg, 12/12/18 13:42:00 EDT, Dry Weight Start Date: 01/09/20 Status: Ordered Sumatriptan Once, 0 Refills, Maintenance, 03/13/18 16:47:05 EST Start Date: 03/13/18 Status: Ordered traMADol 50 mg oral tablet 1 tablet = 50 mg, By Mouth, Every 6 hours, PRN as needed for pain, for 30 days, # 60 tablet, 0 Refills, Acute 06/27/20 15:24:00 EDT, 05/28/20 15:24:00 EDT, Tablet, [facility]/pharmacy #[id number], Partial fill upon patient request if the prescription is for a sche... Start Date: 05/28/20 Stop Date: 06/27/20 Status: Ordered Problem List Condition Effective Dates Status Health Status Inform ant Cluster headache(Confirmed) Active GERD (gastroesophageal reflu x disease)(Confirmed) Active Hyperlipidemia(Confirmed) Active HTN (hypertension)(Confirmed) Active Elevated cholesterol with hi gh triglycerides(Confirmed) 01/11/20 Active Obesity(Confirmed) Active Prediabetes(Confirmed) Active Tobacco use(Confirmed) Active Social History Social History Type Response Smoking Status 10 or more cigarette s (1/2 pack or more)/day in last 30 days entered on: 01/12/19 Sex
--- OUTSIDE RECORDS SUMMARY | 2023-09-21 20:45 | XMS_ITS | Continuity of Care Document ---
Author Organization [facility] Address [address] [place] [address]- Care Team Providers Care Foley Artist Name Role Phone Brandon MIRANDA, [facility] Primary Care Physician Encounter [facility] [place] [facility] Date(s): 09/10/21 - 09/17/21 [facility] [address] [place] [address]- Encounter Diagnosis Hoarseness of voice(Discharge Diagnosis) - 09/10/21 Cough(Discharge Diagnosis) - 09/10/21 GERD (gastroesophageal reflux disease)(Discharge Diagnosis) - 09/10/21 Attending Physician: Not on Staff, Attending MD Allergies, Adverse Reactions, Alerts No Known Allergies Immunizations Given and Recorded Vaccine Date Status Refusal Reason SARS-CoV-2 (COVID-19) mRNA BNT-162b2 vac 08/13/20 Recorded tetanus/diphtheria/pertussis, acel(Tdap) 12/27/18 Given tetanus-diphtheria toxoids (Td) 12/01/11 Recorded Medications atorvastatin 20 mg oral tablet 1 tablet = 20 mg, By Mouth, Daily, # 90 tablet, 3 Refills, Maintenance, 05/15/21 10:02:00 EDT, Tablet, [facility]/pharmacy #[id number], Partial fill upon patient request if the prescription is for a schedule II opioid drug., 193, cm, 05/15/21 8:55:00 EDT, Height Start Date: 05/15/21 Stop Date: 05/10/22 Status: Ordered diltiazem 180 mg/24 hours oral capsule, extended release 180 mg, 1, capsule, By Mouth, Daily, for 30 days, # 30 capsule, Refills 11, Tot. Refills 11, Hard Stop 01/08/22 10:41:00 EST, 01/13/21 10:41:00 EST, Route to Pharmacy Electronically, [facility]/pharmacy #[id number], 193, cm, 01/13/21 10:15:00 EST, Height Start Date: 01/13/21 Stop Date: 01/08/22 Status: Ordered Emgality Prefilled Syringe 100 mg/mL subcutaneous solution = 300 mg, Subcutaneous Injection, Every 28 days, # 3 kit, 5 Refills, Maintenance, 05/05/21 11:56:00EST, Solution, [facility], Partial fill upon [...] EDT, Supply Start Date: 07/18/20 Status: Ordered losartan 50 mg oral tablet 50 mg, 1, tablet, By Mouth, Daily, # 90 tablet, Refills 1, Tot. Refills 1, Maintenance, 09/01/21 13:55:00 EDT, Route to Pharmacy Electronically, [facility]/pharmacy #[id number], Partial fill upon patient request if the prescription is for a schedule II opioid drug... Start Date: 09/01/21 Stop Date: 12/30/21 Status: Ordered metFORMIN 1000 mg oral tablet 1 tablet = 1,000 mg, By Mouth, 2 times a day, # 60 tablet, 5 Refills, Maintenance, 01/13/21 10:41:00 EST, Tablet, [facility]/pharmacy #[id number], Partial fill upon patient request if the prescription is for a schedule II opioid drug., 193, cm, 01/13/21 10:15:00 E... Start Date: 01/13/21 Status: Ordered NuLYTELY with Flavor Packs oral powder for reconstitution See Instructions, Drink 240mL every 15-20 minutes until first half is gone. Repeat 6 hours prior toprocedure., # 4,000 mL, 0 Refills, Maintenance, 03/19/21 12:55:00 EST, [id number], Partial fill upon patient request if the prescription is fo... Start Date: 03/19/21 Status: Ordered omeprazole 20 mg oral enteric coated capsule 1 capsule = 20 mg, By Mouth, Daily, before a meal, # 30 capsule, 11 Refills, Maintenance, 01/13/21 10:41:00 EST, EC Capsule, [facility]/pharmacy #[id number], 193, cm, 01/13/21 10:15:00 EST, Height Start Date: 01/13/21 Stop Date: 01/08/22 Status: Ordered SUMAtriptan 100 mg oral tablet 1 tablet = 100 mg, By Mouth, Daily, PRN for migraine headache, may repeat dose after 2 hours up to a maximum of 2, # 9 tablet, 0 Refills, Acute 02/08/23 16:46:00 EST, 05/05/21 16:45:00 EST, Tablet, [facility], 193, cm, 05/05/21 11:20:... Start Date: 05/05/21 Stop Date: 02/08/23 Status: Ordered Problem List Condition Effective Dates Status Health Status Inform ant Cluster headache(Confirmed) Active Diabetes(Confirmed) Active GERD (gastroesophageal reflu x disease)(Confirmed) Active Hyperlipidemia(Confirmed) Active HTN (hypertension)(Confirmed) Active Elevated cholesterol with hi gh triglycerides(Confirmed) 01/11/20 Active Tobacco use(Confirmed) Active Tubular adenoma of colon(Confirmed) 1 04/24/21 Active 1repeat screening colonoscopy in 2024 Diagnosis Diagnosis Type Effective Dates Health Status Clinical Service Informant Hoarseness of voice Discharge Diagnosis 09/10/21 Cough Discharge Diagnosis 09/10/21 GERD (gastroesophageal reflux disease) Discharge Diagnosis 09/10/21 Social History Social History Type Response Smoking Status 10 or more cigarette s (1/2 pack or more)/day in last 30 days entered on: 01/12/19 Sex
--- OUTSIDE RECORDS SUMMARY | 2023-09-21 20:45 | XMS_ITS | Continuity of Care Document ---
Author Organization [facility] Adult Address [address] [place] [address]- Care Team Providers Care Engineer Automated Equipment Name Role Phone Brandon MIRANDA, [facility] Primary Care Physician ( [phone] [place] [facility](s): 05/05/21 - 06/04/21 [facility] [address] [place] [address]- Allergies, Adverse Reactions, Alerts No Known Allergies Immunizations Given and Recorded Vaccine Date Status Refusal Reason SARS-CoV-2 (COVID-19) mRNA BNT-162b2 vac 08/13/20 Recorded tetanus/diphtheria/pertussis, acel(Tdap) 12/27/18 Given tetanus-diphtheria toxoids (Td) 12/01/11 Recorded Medications atorvastatin 20 mg oral tablet 1 tablet = 20 mg, By Mouth, Daily, # 90 tablet, 3 Refills, Maintenance, 05/15/21 10:02:00 EDT, Tablet, [id number], Partial fill upon [...] 01/13/21 10:41:00 EST, Route to Pharmacy Electronically, [facility]/pharmacy #[id number], 193, cm, 01/13/21 10:15:00 EST, Height Start Date: 01/13/21 Stop Date: 01/08/22 Status: Ordered Emgality Prefilled Syringe 100 mg/mL subcutaneous solution = 300 mg, Subcutaneous Injection, Every 28 days, # 3 kit, 5 Refills, Maintenance, 05/05/21 11:56:00EST, Solution, [facility], Partial fill upon [...] hours, PRN, # 90 tablet, Refills 0, Tot. Refills 0, Maintenance, Pain , Moderate, 02/23/21 11:18:00 EST, Route to Pharmacy Electronically, [facility]/pharmacy #[id number], Partial fill upon patient request if the prescription i... Start Date: 02/23/21 Status: Ordered losartan 50 mg oral tablet 50 mg, 1, tablet, By Mouth, Daily, # 30 tablet, Refills 3, Tot. Refills 3, Maintenance, 05/15/21 10:00:00 EDT, Route to Pharmacy Electronically, [facility]/pharmacy #[id number], Partial fill upon patient request if the prescription is for a schedule II opioid drug... Start Date: 05/15/21 Stop Date: 09/12/21 Status: Ordered metFORMIN 1000 mg oral tablet 1 tablet = 1,000 mg, By Mouth, 2 times a day, # 60 tablet, 5 Refills, Maintenance, 01/13/21 10:41:00 EST, Tablet, [facility]/pharmacy #[id number], Partial fill upon patient request if the prescription is for a schedule II opioid drug., 193, cm, 01/13/21 10:15:00 E... Start Date: 01/13/21 Status: Ordered NuLYTELY with Flavor Packs oral powder for reconstitution See Instructions, Drink 240mL every 15-20 minutes until first half is gone. Repeat 6 hours prior toprocedure., # 4,000 mL, 0 Refills, Maintenance, 03/19/21 12:55:00 EST, [facility]/pharmacy #[id number], Partial fill upon patient request if the prescription is fo... Start Date: 03/19/21 Status: Ordered omeprazole 20 mg oral enteric coated capsule 1 capsule = 20 mg, By Mouth, Daily, before a meal, # 30 capsule, 11 Refills, Maintenance, 01/13/21 10:41:00 EST, EC Capsule, [facility]/pharmacy #[id number], 193, cm, 01/13/21 10:15:00 EST, Height Start Date: 01/13/21 Stop Date: 01/08/22 Status: Ordered SUMAtriptan 100 mg oral tablet 1 tablet = 100 mg, By Mouth, Daily, PRN for migraine headache, may repeat dose after 2 hours up to a maximum of 2, # 9 tablet, 0 Refills, Acute 02/08/23 16:46:00 EST, 05/05/21 16:45:00 EST, Tablet, [facility], 193, cm, 05/05/21 [...]
--- OUTSIDE RECORDS SUMMARY | 2023-09-21 20:45 | XMS_ITS | Continuity of Care Document ---
Author Organization [facility] Adult Address [address] [place] [address]- Care Team Providers Care Assurance Manager Name Role Phone Brandon MIRANDA, Aubrey Primary Care Physician Encounter [facility] [place] Date(s): 04/28/20 - 05/05/20 [facility] [address] [place] [address]- Encounter Diagnosis Cluster headache(Discharge Diagnosis) - 04/28/20 Attending Physician: Aubrey Taylor MD Allergies, Adverse Reactions, Alerts Substance Reaction Severity Status NKA Active Immunizations Given and Recorded Vaccine Date Status Refusal Reason tetanus/diphtheria/pertussis, acel(Tdap) 12/27/18 Given Medications diltiazem 180 mg/24 hours oral capsule, extended release 180 mg, 1, capsule, By Mouth, Daily, # 30 capsule, Refills 11, Tot. Refills 11, Maintenance, 01/09/20 10:49:00 EST, Route to Pharmacy Electronically, [facility]/pharmacy #[id number], 193, cm, 05/14/19 10:06:00 EDT, Height, 125, kg, 12/12/18 13:42:00 EDT, Dry Weight Start Date: 01/09/20 Stop Date: 01/03/21 Status: Ordered omeprazole 20 mg oral enteric coated capsule 1 capsule = 20 mg, By Mouth, 2 times a day, before a meal, # 60 capsule, 2 Refills, Maintenance, 01/09/20 10:42:00 EST, EC Capsule, [facility]/pharmacy #[id number], 193, cm, 05/14/19 10:06:00 EDT, Height, 125, kg, 12/12/18 13:42:00 EDT, Dry Weight Start Date: 01/09/20 Status: Ordered Sumatriptan Once, 0 Refills, Maintenance, 03/13/18 16:47:05 EST Start Date: 03/13/18 Status: Ordered traMADol 50 mg oral tablet 1 tablet = 50 mg, By Mouth, Every 6 hours, PRN as needed for pain, for 30 days, # 60 tablet, 0 Refills, Acute 05/17/20 16:47:00 EDT, 04/17/20 16:47:00 EST, Tablet, [facility]/pharmacy #[id number], Partial fill upon patient request if the prescription is for a sche... Start Date: 04/17/20 Stop Date: 05/17/20 Status: Ordered Problem List Condition Effective Dates Status Health Status Inform ant Cluster headache(Confirmed) Active GERD (gastroesophageal reflu x disease)(Confirmed) Active Hyperlipidemia(Confirmed) Active HTN (hypertension)(Confirmed) Active Elevated cholesterol with hi gh triglycerides(Confirmed) 01/11/20 Active Obesity(Confirmed) Active Prediabetes(Confirmed) Active Tobacco use(Confirmed) Active Diagnosis Diagnosis Type Effective Dates Health Status Cl inical Service Informant Cluster headache Discharge Diagnosis 04/28/20 Vital Signs Most recent to oldest [Reference Range]: 1 Height 193 cm (04/28/20 9:35 AM) Social History Social History Type Response Smoking Status 10 or more cigarette s (1/2 pack or more)/day in last 30 days entered on: 01/12/19 Sex
--- OUTSIDE RECORDS SUMMARY | 2023-09-21 20:46 | XMS_ITS | Continuity of Care Document ---
Author Organization [facility] Adult Address [address] [place] [address]- Care Team Providers Care Formula Technician Name Role Phone Brandon MIRANDA, [facility] Primary Care Physician ( [phone] Encounter [facility] [place] Date(s): 05/13/22 - 06/12/22 [facility] Adult [address] [place] [address]- Allergies, Adverse Reactions, Alerts No Known Allergies Immunizations Given and Recorded Vaccine Date Status Refusal Reason SARS-CoV-2 (COVID-19) mRNA BNT-162b2 vac 08/13/20 Recorded SARS-CoV-2 (COVID-19) mRNA BNT-162g2 vac 07/23/20 Recorded tetanus/diphtheria/pertussis, acel(Tdap) 12/27/18 Given [...] tablet, 3 Refills, Maintenance, 03/16/22 12:18:00 EST, [facility] STORE [id number], 193, cm, 03/12/22 10:49:00 EST, Height, 107, [...] opioid drug. Start Date: 02/22/22 Status: Ordered diltiazem 120 mg/24 hours oral capsule, extended release 120 mg, 1, capsule, By Mouth, Daily, # 30 capsule, Refills 0, Tot. Refills 0, Maintenance, :52:00 EDT, Route to Pharmacy Electronically, [facility]/pharmacy #[id number], Partial fill upon patient request if the prescription is for a schedule II opioid drGeeta. Start Date: 05/10/22 Stop Date: 06/09/22 Status: Ordered Freestyle Lancets See Instructions, # [...] 90 capsule, 0 Refills, Maintenance, 05/21/22 16:20:00EDT, [facility]/pharmacy #[id number], Partial fill upon patient request if the prescription is for a schedule IIopioid drug., 175, cm, 05/19/22 9:32:00 EDT, Height... Start Date: 05/21/22 Status: Ordered losartan 50 mg oral tablet 50 mg, 1, tablet, By Mouth, Daily, Refills 0, Maintenance, 06/04/22 8:29:00 EDT, Partial fill upon patient request if the prescription is for a schedule II opioid drug. Start Date: 06/04/22 Status: Ordered metFORMIN 1000 mg oral tablet 1 tablet, By Mouth, 2 times a day, # 60 tablet, 5 Refills, Maintenance, 01/13/22 9:33:00 EST, [facility] STORE [id number], 193, cm, 01/01/22 9:25:00 EDT, Height, 110.2, kg, 01/01/22 9:25:00 EDT, Dry Weight Start Date: 01/13/22 Status: Ordered omeprazole 20 mg oral enteric coated capsule See Instructions, TAKE 1 CAPSULE BY MOUTH DAILY BEFORE A MEAL X30 DAYS, # 90 capsule, 1 Refills, Maintenance, 11/20/21 19:18:00 EDT, [facility]/pharmacy #[id number], PATIENT NEEDS TO CALL OFFICE FOR APPOINTMENT, 193, cm, 09/25/21 8:45:00 EDT, Height Start Date: 11/20/21 Status: Ordered Oxygen face mask Oxygen face mask, See Instructions, # 1 each, Refills 0, Tot. Refills 0, Maintenance, O2 fask mask to use with nebulizer, 05/18/22 16:08:00 EDT, Supply Start Date: 05/18/22 Status: Ordered SHOWER CHAIR SHOWER CHAIR, See [...] Team Personnel Name: Tarah Carbajal RN Position: [facility] RN Member Role: Primary Care Nurse Name: Aubrey Taylor MD Position: [facility] Primary Care Physician Member Role: PCP Address: Address: [address] [place] [address] 3rd [place] [address]- Name: Maricruz Vinson RN Position: [facility] RN Member Role: Primary Care Nurse Name: Melodie Hampton Position: [facility] Onco RN Member Role: Primary Care Nurse Name: Emeka Patel MD Position: [facility] Renal MD Member Role: Lifetime Consulting Physician Address: Address: [address] [facility] [address] [facility], [place] [address]- Name: Kevin Cool RN Position: [facility] RN Member Role: Primary Care Nurse Care Team Related Persons Name: ELIJAH MARIA Address: home [address] [place] [address] Name: ABDIRAHMAN LEON Name: JONATHAN LEON Address: home [address] [place] [address]
--- OUTSIDE RECORDS SUMMARY | 2023-09-21 20:46 | XMS_ITS | Continuity of Care Document ---
Author Organization [facility] Address [address] [place] [address]- Care Team Providers Care Lamination Assembler Name Role Phone Brandon MIRANDA, Aubrey Primary Care Physician Encounter [facility] Date(s): 09/08/22 - 10/08/22 [facility] [address] [facility] [address] [place] [id number] Attending Physician: Ashley Craft Admitting Physician: Ashley Craft Referring Physician: AdmtrAshley Allergies, Adverse Reactions, Alerts No Known Allergies [...] tablet, 3 Refills, Maintenance, 03/16/22 12:18:00 EST, [facility] STORE [id number], 193, cm, 03/12/22 10:49:00 EST, Height, 107, [...] Refills, Maintenance, 06/16/22 13:19:00 EDT, CD Capsule, [facility]/pharmacy [id number], Partial fill upon patient request if the prescription is for a schedule II opi... Start Date: 06/16/22 Stop Date: 09/14/22 Status: Ordered diltiazem 120 mg/24 hours oral capsule, extended release 120 mg, 1, capsule, By Mouth, Daily, # 30 capsule, Refills 0, Tot. Refills 0, Maintenance, :52:00 EDT, Route to Pharmacy Electronically, [facility]/pharmacy #[id number], Partial fill upon patient request if [...] 90 capsule, 0 Refills, Maintenance, 05/21/22 16:20:00EDT, [facility]/pharmacy #[id number], Partial fill upon patient request if the prescription is for a schedule IIopioid drug., 175, cm, 05/19/22 9:32:00 EDT, Height... Start Date: 05/21/22 Status: Ordered losartan 50 mg oral tablet 75 mg, 1.5, tablet, By Mouth, Daily, # 45 tablet, Refills 5, Tot. Refills 5, Maintenance, 07/06/22 15:32:00 EDT, Route to Pharmacy Electronically, [facility]/pharmacy #[id number], Partial fill upon patient request if the prescription is for a schedule II opioid dr... Start Date: 07/06/22 Stop Date: 01/02/23 Status: Ordered metFORMIN 1000 mg oral tablet 1 tablet, By Mouth, 2 times a day, # 60 tablet, 2 Refills, Maintenance, 07/13/22 11:11:00 EDT, [id number], 175, cm, 06/04/22 8:29:00 EDT, Height, 109, kg, 06/04/22 8:29:00 EDT, Dry Weight Start Date: 07/13/22 Status: Ordered omeprazole 20 mg oral enteric coated capsule See Instructions, TAKE 1 CAPSULE BY MOUTH DAILY BEFORE A MEAL X30 DAYS, # 90 capsule, 1 Refills, Maintenance, 07/16/22 11:48:00 EDT, [facility]/pharmacy #[id number], PATIENT NEEDS TO CALL OFFICE FOR APPOINTMENT, 175, cm, 06/04/22 8:29:00 EDT, Height, 109, kg, 040... Start Date: 07/16/22 Status: Ordered Oxygen face [...] tablet, 11 Refills, Maintenance, 06/14/22 9:12:00 EDT, [facility]/pharmacy #[id number], Partial fill upon patient request if [...] Care Nurse Name: Aubrey Taylor MD Position: [facility] Physician - Primary Care Member Role: PCP Address: Address: [address] [facility] 3rd [place] [address]- Name: Maricruz Vinson RN Position: [facility] RN Member Role: Primary Care Nurse Name: Melodie Hampton Position: [facility] Onco RN Member Role: Primary Care Nurse Name: Emeka Patel MD Position: [facility] Renal MD Member Role: Lifetime Consulting Physician Address: Address: [address] [facility] [address] [facility], [place] [address]- Name: Kevin Cool RN Position: [facility] RN Member Role: Primary Care Nurse Care Team Related Persons Name: ELIJAH MARIA Address: home [address] [place] [address] Name: ABDIRAHMAN LEON Name: JONATHAN LEON Address: home [address] [place] [address]
--- OUTSIDE RECORDS SUMMARY | 2023-09-21 20:46 | XMS_ITS | Continuity of Care Document ---
Author Organization [facility] Adult Address [address] [place] [address]- Care Team Providers Care Esl Instructional Assistant Name Role Phone Brandon MIRANDA, Aubrey Primary Care Physician [place] [facility] 09/07[place]19 - 10/07/19 [facility] Adult [address] [place] [address]- [facility] Allergies, Adverse Reactions, Alerts Substance Reaction Severity [...] Refills, Acute, 08/15/19 9:04:00 EDT, [id number], 28,APPLY 1 PATCH TOPICALLY DAILY, 193, cm, [...]
--- OUTSIDE RECORDS SUMMARY | 2023-09-21 20:46 | XMS_ITS | Continuity of Care Document ---
Author Organization [facility] Adult Address [address] [place] [address]- Care Team Providers Care Administrative Resident Name Role Phone Brandon MIRANDA, [facility] Primary Care Physician Encounter [facility] Date(s): 06/07/22 - 07/07/22 [facility] Adult [address] [place] [address]- Allergies, Adverse Reactions, Alerts No Known Allergies [...] tablet, 3 Refills, Maintenance, 03/16/22 12:18:00 EST, [facility] STORE 50471, 193, cm, 03/12/22 10:49:00 EST, Height, 107, [...] Refills, Maintenance, 06/16/22 13:19:00 EDT, CD Capsule, [facility]/pharmacy #[id number], Partial fill upon patient request if the prescription is for a schedule II opi... Start Date: 06/16/22 Stop Date: 09/14/22 Status: Ordered diltiazem 120 mg/24 hours oral capsule, extended release 120 mg, 1, capsule, By Mouth, Daily, # 30 capsule, Refills 0, Tot. Refills 0, Maintenance, :52:00 EDT, Route to Pharmacy Electronically, [facility]/pharmacy #[id number], Partial fill upon patient request if the prescription is for a schedule II opioid dr.Lori. Start Date: 05/10/22 Stop Date: 06/09/22 Status: [...] 90 capsule, 0 Refills, Maintenance, 05/21/22 16:20:00EDT, [facility]/pharmacy #[id number], Partial fill upon patient request if the prescription is for a schedule IIopioid drug., 175, cm, 05/19/22 9:32:00 EDT, Height... Start Date: 05/21/22 Status: Ordered losartan 50 mg oral tablet 75 mg, 1.5, tablet, By Mouth, Daily, # 45 tablet, Refills 5, Tot. Refills 5, Maintenance, 07/06/22 15:32:00 EDT, Route to Pharmacy Electronically, [facility]/pharmacy #[id number], Partial fill upon patient request if the prescription is for a schedule II opioid dr... Start Date: 07/06/22 Stop Date: 01/02/23 Status: Ordered metFORMIN 1000 mg oral tablet 1 tablet, By Mouth, 2 times a day, # 60 tablet, 5 Refills, Maintenance, 01/13/22 9:33:00 EST, [facility] STORE 45083, 193, cm, 01/01/22 9:25:00 EDT, Height, 110.2, [...] tablet, 11 Refills, Maintenance, 06/14/22 9:12:00 EDT, [facility]/pharmacy #[id number], Partial fill upon patient request if [...] Nurse Name: Aubrey Taylor MD Position: S Primary Care Physician Member Role: PCP Address: Address: [address] [place] [address] Name: Maricruz Vinson RN Position: S RN Member Role: Primary Care Nurse Name: Melodie Hampton Position: [facility] Onco RN Member Role: Primary Care Nurse Name: Emeka Patel MD Position: [facility] Renal MD Member Role: Lifetime Consulting Physician Address: Address: [address] [facility] [place] [address]- Name: Kevin Cool RN Position: [facility] RN Member Role: Primary Care Nurse Care Team Related Persons Name: ELIJAH MARIA Address: home [address] [place] [address] Name: ABDIRAHMAN LEON Name: JONATHAN LEON Address: home [address] [place] [address]
--- OUTSIDE RECORDS SUMMARY | 2023-09-21 20:46 | XMS_ITS | Continuity of Care Document ---
Author Organization [facility] Address [address] [place] [address]- Care Team Providers Care Umbrella Mender Name Role Phone Brandon MIRANDA, [facility] Primary Care Physician Encounter [facility] Date(s): 11/17/21 - 12/17/21 [facility] Care [address] [place] [id number] Attending Physician: AdmAshley blackman Admitting Physician: Admtr, ArVasyl Referring Physician: Admtr, Ar8 Allergies, Adverse Reactions, [...] capsule, 1 Refills, Maintenance, 11/20/21 19:17:00 EDT, [facility]/pharmacy #[id number], 193, cm, 09/25/21 8:45:00 EDT, Height Start Date: 11/20/21 Stop Date: 05/19/22 Status: Ordered Emgality Prefilled Syringe 100 mg/mL subcutaneous solution = 300 mg, Subcutaneous Injection, Every 28 days, # 3 kit, 5 Refills, Maintenance, 05/05/21 11:56:00EST, Solution, [facility], Partial fill upon patient [...] 10/26/21 8:03:00 EDT, Route to Pharmacy Electronically, [facility] STORE [id number], robert Ramírez, 09/25/21 8:45:00 EDT, Height Start Date: 10/26/21 Stop Date: 11/25/21 Status: Ordered losartan 50 mg oral tablet 75 mg, 1.5, tablet, By Mouth, Daily, # 90 tablet, Refills 1, Tot. Refills 1, Maintenance, 09/01/21 13:55:00 EDT, Route to Pharmacy Electronically, [facility]/pharmacy #[id number], Partial fill upon patient request if the prescription is for a schedule II opioid dr... Start Date: 09/01/21 Stop Date: 12/30/21 Status: Ordered metFORMIN 1000 mg oral tablet 1 tablet = 1,000 mg, By Mouth, 2 times a day, # 60 tablet, 5 Refills, Maintenance, 01/13/21 10:41:00 EST, Tablet, [facility]/pharmacy #[id number], Partial fill upon patient request if the prescription is for a schedule II opioid drug., [address], 01/13/21 10:15:00 E... Start Date: 01/13/21 Status: Ordered NuLYTELY with Flavor Packs oral powder for reconstitution See Instructions, Drink 240mL every 15-20 minutes until first half is gone. Repeat 6 hours prior toprocedure., # 4,000 mL, 0 Refills, Maintenance, 03/19/21 12:55:00 EST, [facility]/pharmacy #[id number], Partial fill upon patient request if the prescription is fo... Start Date: 03/19/21 Status: Ordered omeprazole 20 mg oral enteric coated capsule See Instructions, TAKE 1 CAPSULE BY MOUTH DAILY BEFORE A MEAL X30 DAYS, # 90 capsule, 1 Refills, Maintenance, 11/20/21 19:18:00 EDT, [facility]/pharmacy #[id number], PATIENT NEEDS TO CALL OFFICE FOR APPOINTMENT, robert Ramírez, 09/25/21 8:45:00 EDT, Height Start Date: 11/20/21 Status: Ordered SUMAtriptan 100 mg oral tablet 1 tablet = 100 mg, By Mouth, Daily, PRN for migraine headache, may repeat dose after 2 hours up to a maximum of 2, # 9 tablet, 0 Refills, Acute 02/08/23 16:46:00 EST, 05/05/21 16:45:00 EST, Tablet, [facility], 193, cm, 05/05/21 11:20:... [...] 30+ YEARS. Sex Patient Care team information Personnel Name: Aubrey Taylor MD Address: Address: [address] [facility] 3rd Floor [place], [place] [address]
--- OUTSIDE RECORDS SUMMARY | 2023-09-21 20:46 | XMS_ITS | Continuity of Care Document ---
Author Organization [facility] Address [address] [place] [address], [address] [place] [address]- Care Team Providers Care Resident Associate Name Role Phone Brandon MIRANDA, Aubrey Primary Care Physician En[place] [facility] [place] Date(s): 12/07/21 - 01/23/22 [facility] [address] [place] [address], [address] [place], [place] [address] Attending Physician: Bang Jeronimo DO Allergies, Adverse [...] capsule, 1 Refills, Maintenance, 11/20/21 19:17:00 EDT, [facility]/pharmacy #[id number], 193, cm, 09/25/21 8:45:00 EDT, Height Start Date: 11/20/21 Stop Date: 05/19/22 Status: Ordered Emgality Prefilled Syringe 100 mg/mL subcutaneous solution = 300 mg, Subcutaneous Injection, Every 28 days, # 3 kit, 5 Refills, Maintenance, 05/05/21 11:56:00EST, Solution, [facility], Partial fill upon [...] 10/26/21 8:03:00 EDT, Route to Pharmacy Electronically, [facility] STORE [id number], 193, cm, 09/25/21 8:45:00 EDT, Height Start Date: 10/26/21 Stop Date: 11/25/21 Status: Ordered losartan 50 mg oral tablet 1 tablet, By Mouth, Daily, # 90 tablet, 1 Refills, Maintenance, 01/13/22 9:33:00 EST, [facility] STORE 71891, 193, cm, 01/01/22 9:25:00 EDT, Height, 110.2, kg, 01/01/22 9:25:00 EDT, Dry Weight Start Date: 01/13/22 Status: Ordered metFORMIN 1000 mg oral tablet 1 tablet, By Mouth, 2 times a day, # 60 tablet, 5 Refills, Maintenance, 01/13/22 9:33:00 EST, [facility] STORE 17215, 193, cm, 01/01/22 9:25:00 EDT, Height, 110.2, [...] 02/08/23 16:46:00 EST, 05/05/21 16:45:00 EST, Tablet, [facility], [address], 05/05/21 11:20:... Start Date: 05/05/21 Stop Date: [...] Team Personnel Name: Aubrey Taylor MD Position: [facility] Primary Care Physician Member Role: PCP Address: Address: [address] [place] [address]- Name: Tarah Schmitt RN Position: S RN Member Role: Primary Care Nurse Name: Maricruz Vinson RN Position: S RN Member Role: Primary Care Nurse Name: Melodie Hampton Position: [facility] Onco RN Member Role: Primary Care Nurse Care Team Related Persons Name: ELIJAH MARIA Address: home [address] [place], [place] Name: ABDIRAHMAN LEON Name: JONATHAN LEON Address: home [address] [place] [address]
--- OUTSIDE RECORDS SUMMARY | 2023-09-21 20:46 | XMS_ITS | Continuity of Care Document ---
Author Organization [facility] Adult Address [address] [place] [address]- Care Team Providers Care Felt Pad Cutter Name Role Phone Brandon MIRANDA, [facility] Primary Care Physician [place] [facility] 12/05[place]20 - 01/04/21 [facility] Adult [address] [place] [address]- Allergies, Adverse Reactions, Alerts Substance Reaction Severity Status NKA Active Immunizations Given and Recorded Vaccine Date Status Refusal Reason tetanus/diphtheria/pertussis, acel(Tdap) 12/27/18 Given tetanus-diphtheria toxoids (Td) 12/01/11 Recorded Medications diltiazem 180 mg/24 hours oral capsule, extended release 180 mg, 1, capsule, By Mouth, Daily, # 30 capsule, Refills 11, Tot. Refills 11, Maintenance, 07/18/20 10:07:00 EDT, Route to Pharmacy Electronically, [facility]/pharmacy #[id number], 193, cm, 07/18/20 9:23:00 EDT, [...] 12/02/20 13:02:00 EDT, Route to Pharmacy Electronically, [facility]/pharmacy #[id number], Partial fill upon patient request if the prescription i... Start Date: 12/02/20 Status: Ordered losartan 25 mg oral tablet 25 mg, 1, tablet, By Mouth, Daily, # 30 tablet, Refills 6, Tot. Refills 6, Maintenance, 07/18/20 10:06:00 EDT, Route to Pharmacy Electronically, [facility]/pharmacy #[id number], Partial fill upon patient request if the prescription is for a schedule II opioid drug... Start Date: 07/18/20 Stop Date: 02/13/21 Status: Ordered metFORMIN 1000 mg oral tablet 1 tablet = 1,000 mg, By Mouth, 2 times a day, # 60 tablet, 5 Refills, Maintenance, 12/02/20 13:01:00 EDT, Tablet, [facility]/pharmacy #[id number], Partial fill upon patient request [...]
--- OUTSIDE RECORDS SUMMARY | 2023-09-21 20:46 | XMS_ITS | Continuity of Care Document ---
Author Organization [facility] Adult Address [address] [place] [address]- Care Team Providers Care Band Attacher Name Role Phone Brandon MIRANDA, [facility] Primary Care Physician Encounter [facility] Date(s): 07/13/22 - 08/12/22 [facility] Adult [address] [place] [address]- Allergies, Adverse Reactions, Alerts No Known Allergies [...] tablet, 3 Refills, Maintenance, 03/16/22 12:18:00 EST, [facility] STORE [id number], 193, cm, 03/12/22 10:49:00 EST, Height, 107, [...] Refills, Maintenance, 06/16/22 13:19:00 EDT, CD Capsule, [facility]/pharmacy #[id number], Partial fill upon patient request if the prescription is for a schedule II opi... Start Date: 06/16/22 Stop Date: 09/14/22 Status: Ordered diltiazem 120 mg/24 hours oral capsule, extended release 120 mg, 1, capsule, By Mouth, Daily, # 30 capsule, Refills 0, Tot. Refills 0, Maintenance, :52:00 EDT, Route to Pharmacy Electronically, [facility]/pharmacy #[id number], Partial fill upon patient request [...] 90 capsule, 0 Refills, Maintenance, 05/21/22 16:20:00EDT, [facility]/pharmacy #[id number], Partial fill upon patient request if the prescription is for a schedule IIopioid drug., 175, cm, 05/19/22 9:32:00 EDT, Height... Start Date: 05/21/22 Status: Ordered losartan 50 mg oral tablet 75 mg, 1.5, tablet, By Mouth, Daily, # 45 tablet, Refills 5, Tot. Refills 5, Maintenance, 07/06/22 15:32:00 EDT, Route to Pharmacy Electronically, [facility]/pharmacy #[id number], Partial fill upon patient request if the prescription is for a schedule II opioid dr... Start Date: 07/06/22 Stop Date: 01/02/23 Status: Ordered metFORMIN 1000 mg oral tablet 1 tablet, By Mouth, 2 times a day, # 60 tablet, 2 Refills, Maintenance, 07/13/22 11:11:00 EDT, [facility]/pharmacy #2339, 175, cm, 06/04/22 8:29:00 EDT, Height, 109, kg, 06/04/22 8:29:00 EDT, Dry Weight Start Date: 07/13/22 Status: Ordered omeprazole 20 mg oral enteric coated capsule See Instructions, TAKE 1 CAPSULE BY MOUTH DAILY BEFORE A MEAL X30 DAYS, # 90 capsule, 1 Refills, Maintenance, 07/16/22 11:48:00 EDT, [facility]/pharmacy #[id number], PATIENT NEEDS TO CALL OFFICE [...] tablet, 11 Refills, Maintenance, 06/14/22 9:12:00 EDT, [facility]/pharmacy #2339, Partial fill upon patient request [...] Primary Care Member Role: PCP Address: Address: [address] [place] [address] [address] [place] [address]- [place] Name: Maricruz Vinson RN Position: S RN Member Role: Primary Care Nurse Name: Melodie Hampton Position: [facility] Onco RN Member Role: Primary Care Nurse Name: Emeka Patel MD Position: [facility] Renal MD Member Role: Lifetime Consulting Physician Address: Address: [address] [facility] [address] [facility] [place] [address]- [place] Name: Kevin Cool RN Position: S RN Member Role: Primary Care Nurse Care Team Related Persons Name: ELIJAH MARIA Address: home [address] [place] [address] Name: ABDIRAHMAN LEON Name: JONATHAN LEON Address: home [address] [place] [address]
--- OUTSIDE RECORDS SUMMARY | 2023-09-21 20:46 | XMS_ITS | Continuity of Care Document ---
Author Organization [facility] ter Address [address] [place] [address]- Care Team Providers Care Mushroom Growing Supervisor Name Role Phone Aubrey Taylor MD Primary Care Physician Encounter [facility] [place] Date(s): 06/06/20 - 06/06/[address] [address]- Encounter Diagnosis Hypertension(Final) - 06/06/20 Discharge Disposition: A-D/C Home Attending Physician: Zain Chavez MD Admitting Physician: Zain Chavez MD Referring Physician: Not on Staff, Referring MD Allergies, Adverse Reactions, Alerts Substance Reaction Severity Status NKA Active Immunizations Given and Recorded Vaccine Date Status Refusal Reason tetanus/diphtheria/pertussis, acel(Tdap) 12/27/18 Given Medications diltiazem 180 mg/24 hours oral capsule, extended release 180 mg, 1, capsule, By Mouth, Daily, # 30 capsule, Refills 11, Tot. Refills 11, Maintenance, 01/09/20 10:49:00 EST, Route to Pharmacy Electronically, [id number], 193, cm, 05/14/19 10:06:00 EDT, Height, 125, kg, 12/12/18 13:42:00 EDT, Dry Weight Start Date: 01/09/20 Stop Date: 01/03/21 Status: Ordered omeprazole 20 mg oral enteric coated capsule 1 capsule = 20 mg, By Mouth, 2 times a day, before a meal, # 60 capsule, 2 Refills, Maintenance, 01/09/20 10:42:00 EST, EC Capsule, [id number], 193, cm, 05/14/19 [...] 06/27/20 15:24:00 EDT, 05/28/20 15:24:00 EDT, Tablet, [facility]/pharmacy #[id number], Partial fill upon patient request if the prescription is for a sche... Start Date: 05/28/20 Stop Date: 06/27/20 Status: Ordered Problem List Condition Effective Dates Status Health Status Inform ant Cluster headache(Confirmed) Active GERD (gastroesophageal reflu x disease)(Confirmed) Active Hyperlipidemia(Confirmed) Active HTN (hypertension)(Confirmed) Active Elevated cholesterol with hi gh triglycerides(Confirmed) 01/11/20 Active Obesity(Confirmed) Active Prediabetes(Confirmed) Active Tobacco use(Confirmed) Active Results Radiology Reports * Exam Date Time Procedure Performing Provider Status 06/06/20 9:13 PM Chest 2 Views Frontal and Lat Darrian Abreu; Felicia (Verified) Notes: (Chest 2 Views Frontal and Lat) Reason For Exam: Shortness of Breath RESULT: Chest 2 Views Frontal and Lat Chest 2 Views Frontal and Lat Hx of Present Illness: Pt reporting SOB, dry mouth, R arm numbness pain, after smolking weed with cocaine and ETOH use; Reason: Shortness of Breath; Clinical Question(s): Pneumonia COMPARISON: None. FINDINGS: LINES AND TUBES: None. LUNGS AND PLEURA: The right lung is clear. There is minimal atelectasis at the left lung base. Central vascular markings are prominent. No pleural effusion. No pneumothorax. HEART, MEDIASTINUM AND YAMILETH: Heart is normal in size. Normal upper mediastinal and hilar contour. BONES AND SOFT TISSUES: No acute abnormality. IMPRESSION: Mild pulmonary vascular congestion without overt edema or CHF. No pneumonia. WSN: [id number] Ordering Physician: Arlen Corral Dictated By: Demetrio Urban MD Dictated Date/Time: 06/06/20 9:31 pm Reviewed By: Demetrio Urban MD Signed By: Demetrio Urban MD Signed Date/Time: 06/06/20 9:31 pm Transcribed By: CHRISTINA Transcribed Date/Time: 06/06/20 9:30 pm Vital Signs Most recent to oldest [Reference Range]: 1 2 3 Oxygen Saturation [94-100 %] 94 % (06/06/20 11:04 PM) 96 % (06/06/20 8:00 PM) 94 % (06/06/20 8:00 PM) Pulse Rate [55-90 bpm] 82 bpm (06/06/20 11:04 PM) 97 bpm *H* (06/06/20 8:00 PM) Blood Pressure [90-138/55-84 mm Hg] 158/88mm Hg *H* (06/06/20 11:04 PM) 162/84mm Hg *H* (06/06/20 8:00 PM) Respiratory Rate [16-30 br/min] 18 br/min (06/06/20 11:04 PM) 18 br/min (06/06/20 8:00 PM) Temperature [96.8-100.4 DegF] 98.2 DegF (06/06/20 11:04 PM) 98.2 DegF (06/06/20 8:00 PM) Liters per Minute 2 L/min (06/06/20 8:00 PM) 2 L/min (06/06/20 8:00 PM) 3 L/min (06/06/20 7:49 PM) Mode of Delivery (Oxygen) Room air (06/06/20 11:04 PM) Nasal cannula (06/06/20 8:00 PM) Room air (06/06/20 8:00 PM) Blood pressure sites Arm, left (06/06/20 11:04 PM) Arm, left (06/06/20 8:00 PM) Temperature Route Oral (06/06/20 11:04 PM) Oral (06/06/20 8:00 PM) Social History Social History Type Response Smoking Status 10 or more cigarette s (1/2 pack or more)/day in last 30 days entered on: 01/12/19 Sex
--- OUTSIDE RECORDS SUMMARY | 2023-09-21 20:46 | XMS_ITS | Continuity of Care Document ---
Author Organization [facility] Adult Address [address] [place] [address]- Care Team Providers Care Executive Communications Manager Name Role Phone Brandon MIRANDA, [facility] Primary Care Physician Encounter [facility] [id number] Date(s): 06/13/19 - 06/20/19 [facility] Adult [address] [place] [address]- [facility] Encounter Diagnosis Cluster headache(Discharge Diagnosis) - 06/13/19 GERD (gastroesophageal reflux disease)(Discharge Diagnosis) - 06/13/19 HTN (hypertension)(Discharge Diagnosis) - 06/13/19 Hyperlipidemia(Discharge Diagnosis) - 06/13/19 Obesity(Discharge Diagnosis) - 06/13/19 Prediabetes(Discharge Diagnosis) - 06/13/19 Tobacco use(Discharge Diagnosis) - 06/13/19 Attending Physician: Brnadon MIRANDA, [facility] Allergies, Adverse Reactions, Alerts Substance Reaction [...] film, extended release 1 patch, Topically, Daily, for 30 days, # 30 patch, 0 Refills, Acute 07/13/19 16:04:00 EDT, 06/13/19 16:04:00 EDT, Patch, [id number], 1 patch Topically Daily,x30 days, 193, cm, 05/14/19 10:06:00 EDT, Height, 125, kg, 12/12/18 13:42:00 EDT, Dry... Start Date: 06/13/19 Stop Date: 07/13/19 Status: Ordered NuLYTELY with Flavor Packs oral [...] meal, # 60 capsule, 2 Refills, Maintenance, 02/13/19 11:01:02 EST, EC Capsule, [id number], 192, cm, 01/12/19 14:48:39 EST, Height, 125, kg, 12/12/18 13:42:13 EDT, Dry Weight Start Date: 02/13/19 Status: Ordered Sumatriptan Once, 0 Refills, Maintenance, [...] Effective Dates Health Status Clinical Service Informant Cluster headache Discharge Diagnosis 06/13/19 GERD (gastroesophageal reflux disease) Discharge Diagnosis 06/13/19 HTN (hypertension) Discharge Diagnosis 06/13/19 Hyperlipidemia Discharge Diagnosis 06/13/19 Obesity Discharge Diagnosis 06/13/19 Prediabetes Discharge Diagnosis 06/13/19 Tobacco use Discharge Diagnosis 06/13/19 Social History Social History Type Response Smoking Status 10 or more cigarette s (1/2 pack or more)/day in last 30 days entered on: 01/12/19 Sex
--- OUTSIDE RECORDS SUMMARY | 2023-09-21 20:46 | XMS_ITS | Continuity of Care Document ---
Author Organization [facility] Adult Address [address] [place] [address]- Care Team Providers Care Emergency Response Technician Name Role Phone Brandon MIRANDA, [facility] Primary Care Physician Encounter [facility] [place] Date(s): 11/03/21 - 12/03/21 [facility] Adult [address] [place] [address]- Allergies, Adverse Reactions, Alerts No Known Allergies [...] capsule, 1 Refills, Maintenance, 11/20/21 19:17:00 EDT, [facility]/pharmacy #[id number], 193, cm, 09/25/21 8:45:00 EDT, Height Start Date: 11/20/21 Stop Date: 05/19/22 Status: Ordered Emgality Prefilled Syringe 100 mg/mL subcutaneous solution = 300 mg, Subcutaneous Injection, Every 28 days, # 3 kit, 5 Refills, Maintenance, 05/05/21 11:56:00EST, Solution, [facility], Partial fill upon [...] 10/26/21 8:03:00 EDT, Route to Pharmacy Electronically, [id number], [address]robert, 09/25/21 8:45:00 EDT, Height Start Date: 10/26/21 Stop Date: 11/25/21 Status: Ordered losartan 50 mg oral tablet 75 mg, 1.5, tablet, By Mouth, Daily, # 90 tablet, Refills 1, Tot. Refills 1, Maintenance, 09/01/21 13:55:00 EDT, Route to Pharmacy Electronically, [facility]/pharmacy [...] capsule, 1 Refills, Maintenance, 11/20/21 19:18:00 EDT, [facility]/pharmacy #[id number], PATIENT NEEDS TO CALL OFFICE FOR APPOINTMENT, 193 cm, 09/25/21 8:45:00 EDT, Height Start Date: 11/20/21 Status: Ordered SUMAtriptan 100 mg oral tablet 1 tablet = 100 mg, By Mouth, Daily, PRN for migraine headache, may repeat dose after 2 hours up to a maximum of 2, # 9 tablet, 0 Refills, Acute 02/08/23 16:46:00 EST, 05/05/21 16:45:00 EST, Tablet, [facility], 193, cm, 05/05/21 11:20:... Start Date: 05/05/21 Stop Date: 02/08/23 Status: Ordered Problem List Condition Confirmation Course Effective Dates Status H ealth Status Informant Cluster headache Confirmed Active Diabetes Confirmed Active GERD (gastroesophageal reflux disease) Confirmed Active Hyperlipidemia Confirmed Active HTN (hypertension) Confirmed Active Elevated cholesterol with high triglycerides Confirmed 01/11/20 Active Obese class I Confirmed Active Tobacco use Confirmed Active Tubular adenoma of colon 1 Confirmed 04/24/21 Active 1repeat screening colonoscopy in 2024 Social History Social History Type Response Smoking Status 5-9 cigarettes (betw een 1/4 to 1/2 pack)/day in last 30 days; Interested in cessation: Yes; Other: 5-6 CIG/D X 30 YEARS; entered on: 12/03/21 Sex Patient Care team information Personnel Name: Brandon MIRANDA, [facility] Address: Address: [address] [place] [address] [address] [place], [place] [address]
--- OUTSIDE RECORDS SUMMARY | 2023-09-21 20:46 | XMS_ITS | Continuity of Care Document ---
Author Organization [facility] Adult Address [address] [place] [address]- Care Team Providers Care Rv Repair Technician Name Role Phone Brandon MIRANDA, [facility] Primary [facility] Physician Encounter [facility] [place] Date(s): 05/27/21 - 06/26/21 [facility] Adult [address] [place] [address]- Allergies, Adverse Reactions, Alerts No Known Allergies [...] 01/13/21 10:41:00 EST, Route to Pharmacy Electronically, [facility]/pharmacy #[id number], 193, cm, 01/13/21 10:15:00 EST, Height [...] 02/23/21 11:18:00 EST, Route to Pharmacy Electronically, [facility]/pharmacy #[id number], Partial fill upon patient request if the prescription i... Start Date: 02/23/21 Status: Ordered losartan 50 mg oral tablet 50 mg, 1, tablet, By Mouth, Daily, # 30 tablet, Refills 3, Tot. Refills 3, Maintenance, 06/23/21 9:03:00 EDT, Route to Pharmacy Electronically, [facility]/pharmacy #[id number], Partial fill upon patient request if the prescription is for a schedule II opioid drug.... Start Date: 06/23/21 Stop Date: 10/21/21 Status: Ordered metFORMIN 1000 mg oral tablet 1 tablet = 1,000 mg, By Mouth, 2 times a day, # 60 tablet, 5 Refills, Maintenance, 01/13/21 10:41:00 EST, Tablet, [facility]/pharmacy #[id number], Partial fill upon patient request if the prescription is for a schedule II opioid drug., 193, cm, 01/13/21 10:15:00 E... Start Date: 01/13/21 Status: Ordered NuLYTELY with Flavor Packs oral powder for reconstitution See Instructions, Drink 240mL every 15-20 minutes until first half is gone. Repeat 6 hours prior toprocedure., # 4,000 mL, 0 Refills, Maintenance, 03/19/21 12:55:00 EST, [facility]/pharmacy #[id number], Partial fill upon patient request if the prescription is fo... Start Date: 03/19/21 Status: Ordered omeprazole 20 mg oral enteric coated capsule 1 capsule = 20 mg, By Mouth, Daily, before a meal, # 30 capsule, 11 Refills, Maintenance, 01/13/21 10:41:00 EST, EC Capsule, [facility]/pharmacy #[id number], 193, cm, 01/13/21 10:15:00 EST, Height [...]
--- OUTSIDE RECORDS SUMMARY | 2023-09-21 20:46 | XMS_ITS | Continuity of Care Document ---
Author Organization [facility] ter Address [address] [place] [id number]- Care Team Providers Care Scalp Specialist Name Role Phone Aubrey Taylor MD Primary Care Physician Encounter [facility] Date(s): 12/10/21 - 12/10/[address] [address] Discharge Disposition: A-D/C Home Attending Physician: Bang Jeronimo DO Admitting Physician: Bang Jeronimo DO Referring Physician: Bagn Jeronimo DO Allergies, Adverse Reactions, Alerts No [...] capsule, 1 Refills, Maintenance, 11/20/21 19:17:00 EDT, [facility]/pharmacy #[id number], 193, cm, 09/25/21 8:45:00 EDT, Height Start Date: 11/20/21 Stop Date: 05/19/22 Status: Ordered Emgality Prefilled Syringe 100 mg/mL subcutaneous solution = 300 mg, Subcutaneous Injection, Every 28 days, # 3 kit, 5 Refills, Maintenance, 05/05/21 11:56:00EST, Solution, [facility], Partial fill upon [...] 10/26/21 8:03:00 EDT, Route to Pharmacy Electronically, [facility] ST[id number], robert Ramírez, 09/25/21 8:45:00 EDT, Height Start Date: 10/26/21 Stop Date: 11/25/21 Status: Ordered losartan 50 mg oral tablet 75 mg, 1.5, tablet, By Mouth, Daily, # 90 tablet, Refills 1, Tot. Refills 1, Maintenance, 09/01/21 13:55:00 EDT, Route to Pharmacy Electronically, [facility]/pharmacy #[id number], Partial fill upon patient request if the prescription is for a schedule II opioid dr... Start Date: 09/01/21 Stop Date: 12/30/21 Status: Ordered metFORMIN 1000 mg oral tablet 1 tablet = 1,000 mg, By Mouth, 2 times a day, # 60 tablet, 5 Refills, Maintenance, 01/13/21 10:41:00 EST, Tablet, [facility]/pharmacy #[id number], Partial fill upon patient request if the prescription is for a schedule II opioid drug., 193, cm, 01/13/21 10:15:00 E... Start Date: 01/13/21 Status: Ordered NuLYTELY with Flavor Packs oral powder for reconstitution See Instructions, Drink 240mL every 15-20 minutes until first half is gone. Repeat 6 hours prior toprocedure., # 4,000 mL, 0 Refills, Maintenance, 03/19/21 12:55:00 EST, [facility]/pharmacy #[id number], Partial fill upon patient request if the prescription is fo... Start Date: 03/19/21 Status: Ordered omeprazole 20 mg oral enteric coated capsule See Instructions, TAKE 1 CAPSULE BY MOUTH DAILY BEFORE A MEAL X30 DAYS, # 90 capsule, 1 Refills, Maintenance, 11/20/21 19:18:00 EDT, [facility]/pharmacy #[id number], PATIENT NEEDS TO CALL OFFICE FOR APPOINTMENT, 193 cm, 09/25/21 8:45:00 EDT, Height Start Date: 11/20/21 Status: Ordered SUMAtriptan 100 mg oral tablet 1 tablet = 100 mg, By Mouth, Daily, PRN for migraine headache, may repeat dose after 2 hours up to a maximum of 2, # 9 tablet, 0 Refills, Acute 02/08/23 16:46:00 EST, 05/05/21 16:45:00 EST, Tablet, [facility], 193, cm, 05/05/21 [...] 04/24/21 Active 1repeat screening colonoscopy in 2024 Results Radiology Reports * Exam Date Time Procedure Performing Provider Status 12/10/21 1:19 PM Chest Portable Tigist Sidhu [facility] (Verified) Notes: (Chest Portable) Reason For Exam: Shortness of Breath RESULT: Chest Portable Chest Portable HISTORY: Shortness of breath. COMPARISON: 10/27/2021. FINDINGS: Bilateral lower lobe airspace disease. IMPRESSION: Bilateral lower lobe airspace disease. Differential includes pneumonia and atelectasis. I have personally reviewed the images and I agree with this report. WSN: [id number] Ordering Physician: Bang Jeronimo Dictated By: Tim Alegre MD Dictated Date/Time: 12/10/21 1:34 pm Reviewed By: Laurent Lora MD Signed By: Laurent Lora MD Signed Date/Time: 12/10/21 1:39 pm Transcribed By: CHRISTINA Transcribed Date/Time: 12/10/21 1:29 pm Vital Signs Most recent to oldest [Reference Range]: 1 2 3 Height 193 cm (12/10/21 9:06 AM) Oxygen Saturation [94-100 %] 93 % *L* (12/10/21 2:23 PM) 93 % *L* (12/10/21 1:50 PM) 89 % *L* (12/10/21 1:41 PM) Pulse Rate [55-90 bpm] 79 bpm (12/10/21 9:06 AM) Blood Pressure [90-138/55-84 mm Hg] 131/85mm Hg (12/10/21 1:04 PM) 125/71mm Hg (12/10/21 12:41 PM) 120/56mm Hg (12/10/21 12:36 PM) Respiratory Rate [16-30 br/min] 16 br/min (12/10/21 12:41 PM) 16 br/min (12/10/21 12:36 PM) 14 br/min *L* (12/10/21 12:31 PM) Temperature [96.8-100.4 DegF] 97 DegF (12/10/21 11:46 AM) 97.9 DegF (12/10/21 9:06 AM) Liters per Minute 1 L/min (12/10/21 1:04 PM) 1 L/min (12/10/21 12:41 PM) 3 L/min (12/10/21 12:36 PM) Mode of Delivery (Oxygen) Room air (12/10/21 1:14 PM) Nasal cannula (12/10/21 1:04 PM) Nasal cannula (12/10/21 12:41 PM) Blood pressure sites Arm, right (12/10/21 1:04 PM) Arm, right (12/10/21 12:41 PM) Arm, right (12/10/21 12:36 PM) Temperature Route Temporal (12/10/21 11:46 AM) Temporal (12/10/21 9:06 AM) Dry Weight 109 kg (12/10/21 9:06 AM) Dry Weight Obtained Via Patient/family s tated (12/10/21 9:06 AM) Social History Social History Type Response Smoking Status 5-9 cigarettes (betw een 1/4 to 1/2 pack)/day in last 30 days; Interested in cessation: Yes; Other: 5-6 CIG/D X 30 YEARS; entered on: 12/03/21 Sex Portable XR Chest Views * BHSP[facility]erscribe , CIS S: TRANSCRIBE Guido MIRANDA, Laurent P: VERIFY Sis MIRANDA, Tim L: SIGN Event Display: Result: Authored Date: [id number] Chest Portable HISTORY: Shortness of breath. COMPARISON: 10/27/2021. FINDINGS: Bilateral lower lobe airspace disease. IMPRESSION: Bilateral lower lobe airspace disease. Differential includes pneumonia and atelectasis. I have personally reviewed the images and I agree with this report. WSN: [id number] Ordering Physician: Bang Jeronimo Dictated By: Tim Alegre MD Dictated Date/Time: 12/10/21 1:34 pm Reviewed By: Laurent Lora MD Signed By: Laurent Lora MD Signed Date/Time: 12/10/21 1:39 pm Transcribed By: CHRISTINA Transcribed Date/Time: 12/10/21 1:29 pm Patient Care team information Personnel Name: Aubrey Taylor MD Address: Address: [address] [place] [address] [place], [place] [address]
--- OUTSIDE RECORDS SUMMARY | 2023-09-21 20:46 | XMS_ITS | Continuity of Care Document ---
Author Organization [facility] Adult Address [address] [place] [address]- Care Team Providers Care Deburrer Name Role Phone Brandon MIRANDA, [facility] Primary Care Physician ( [phone] [facility] Date(s): 09/25/21 - 10/02/21 [facility] Adult [address] [place] [address]- Encounter Diagnosis Acute URI(Discharge Diagnosis) - 09/25/21 Attending Physician: Brandon MIRANDA, [facility] Allergies, Adverse Reactions, Alerts No Known Allergies [...] cm, 08/29... Start Date: 09/25/21 Status: Ordered diltiazem 180 mg/24 hours oral capsule, extended release 180 mg, 1, capsule, By Mouth, Daily, for 30 days, # 30 capsule, Refills 11, Tot. Refills 11, Hard Stop 01/08/22 10:41:00 EST, 01/13/21 10:41:00 EST, Route to Pharmacy Electronically, [facility]/pharmacy #[id number], 193, cm, 01/13/21 10:15:00 EST, Height Start Date: 01/13/21 Stop Date: 01/08/22 Status: Ordered Emgality Prefilled Syringe 100 mg/mL subcutaneous solution = 300 mg, Subcutaneous Injection, Every 28 days, # 3 kit, 5 Refills, Maintenance, 05/05/21 11:56:00EST, Solution, [facility], Partial fill upon patient [...] 09/01/21 13:55:00 EDT, Route to Pharmacy Electronically, [facility]/pharmacy #[id number], Partial fill upon patient request if the prescription is for a schedule II opioid drug... Start Date: 09/01/21 Stop Date: 12/30/21 Status: Ordered metFORMIN 1000 mg oral tablet 1 tablet = 1,000 mg, By Mouth, 2 times a day, # 60 tablet, 5 Refills, Maintenance, 01/13/21 10:41:00 EST, Tablet, [facility]/pharmacy #[id number], Partial fill upon patient request if the prescription is for a schedule II opioid drug., 193, cm, 01/13/21 10:15:00 E... Start Date: 01/13/21 Status: Ordered NuLYTELY with Flavor Packs oral powder for reconstitution See Instructions, Drink 240mL every 15-20 minutes until first half is gone. Repeat 6 hours prior toprocedure., # 4,000 mL, 0 Refills, Maintenance, 03/19/21 12:55:00 EST, [facility]/pharmacy #[id number], Partial fill upon patient request if the prescription is fo... Start Date: 03/19/21 Status: Ordered omeprazole 20 mg oral enteric coated capsule 1 capsule = 20 mg, By Mouth, Daily, before a meal, # 30 capsule, 11 Refills, Maintenance, 01/13/21 10:41:00 EST, EC Capsule, [facility]/pharmacy #[id number], 193, cm, 01/13/21 10:15:00 EST, Height Start Date: 01/13/21 Stop Date: 01/08/22 Status: Ordered SUMAtriptan 100 mg oral tablet 1 tablet = 100 mg, By Mouth, Daily, PRN for migraine headache, may repeat dose after 2 hours up to a maximum of 2, # 9 tablet, 0 Refills, Acute 02/08/23 16:46:00 EST, 05/05/21 16:45:00 EST, Tablet, [facility], 193, cm, 05/05/21 11:20:... [...] Diagnosis Diagnosis Type Effective Dates Health Status Clini malik Service Informant Acute URI Discharge Diagnosis 09/25/21 Vital Signs Most recent to oldest [Reference Range]: 1 Height 193 cm (09/25/21 8:45 AM) Weight Obtained Via Patient/family state d (09/25/21 8:45 AM) Social History Social History Type Response Smoking Status 10 or more cigarette s (1/2 pack or more)/day in last 30 days entered on: 01/12/19 Sex
--- OUTSIDE RECORDS SUMMARY | 2023-09-21 20:46 | XMS_ITS | Continuity of Care Document ---
Author Organization [facility] Address [address] [place] [address]- Care Team Providers Care Pipe Threader Name Role Phone Brandon MIRANDA, [facility] Primary Care Physician [place] [facility] [place] 07/18/20 - 07/25/20 [facility] [address] [place] [id number]- Encounter Diagnosis Physical exam(Discharge Diagnosis) - 07/18/20 Elevated cholesterol with high triglycerides(Discharge Diagnosis) - 07/18/20 HTN (hypertension)(Discharge Diagnosis) - 07/18/20 Hyperlipidemia(Discharge Diagnosis) - 07/18/20 Obesity(Discharge Diagnosis) - 07/18/20 GERD (gastroesophageal reflux disease)(Discharge Diagnosis) - 07/18/20 Prediabetes(Discharge Diagnosis) - 07/18/20 Attending Physician: Geraldine West NP Allergies, Adverse Reactions, Alerts Substance Reaction Severity Status NKA Active Immunizations Given and Recorded Vaccine Date Status Refusal Reason tetanus/diphtheria/pertussis, acel(Tdap) 12/27/18 Given tetanus-diphtheria toxoids (Td) 12/01/11 Recorded Medications diltiazem 180 mg/24 hours oral capsule, extended release 180 mg, 1, capsule, By Mouth, Daily, # 30 capsule, Refills 11, Tot. Refills 11, Maintenance, 07/18/20 10:07:00 EDT, Route to Pharmacy Electronically, [facility]/pharmacy #[id number], 193, cm, 07/18/20 9:23:00 EDT, Height, 125, kg, 12/12/18 13:42:00 EDT, Dry Weight Start Date: 07/18/20 Stop Date: 07/13/21 Status: Ordered Home Blood Pressure Monitor See Instructions, # 1 each, Maintenance, Large blood pressure cuff, 07/18/20 10:14:00 EDT, Supply Start Date: 07/18/20 Status: Ordered ibuprofen 600 mg oral tablet 600 mg, 1, tablet, By Mouth, Every 8 hours, PRN, # 30 tablet, Refills 0, Tot. Refills 0, Acute 08/21/20 13:59:00 EDT, Pain , Moderate, 07/21/20 13:59:00 EDT, Route to Pharmacy Electronically, [facility]/pharmacy #[id number], Partial fill upon patient request if th... Start Date: 07/21/20 Stop Date: 08/21/20 Status: Ordered losartan 25 mg oral tablet 25 mg, 1, tablet, By Mouth, Daily, # 30 tablet, Refills 6, Tot. Refills 6, Maintenance, 07/18/20 10:06:00 EDT, Route to Pharmacy Electronically, [facility]/pharmacy #[id number], Partial fill upon patient request if the prescription is for a schedule II opioid drug... Start Date: 07/18/20 Stop Date: 02/13/21 Status: Ordered omeprazole 20 mg oral enteric coated capsule 1 capsule = 20 mg, By Mouth, Daily, before a meal, # 30 capsule, 11 Refills, Maintenance, 07/22/20 9:34:00 EDT, EC Capsule, [facility]/pharmacy #[id number], 193, cm, 07/18/20 10:08:00 EDT, [...] Effective Dates Health Status Clinical Service Informant Physical exam Discharge Diagnosis 07/18/20 Elevated cholesterol with high triglycerides Discharge Diagnosis 07/18/20 HTN (hypertension) Discharge Diagnosis 07/18/20 Hyperlipidemia Discharge Diagnosis 07/18/20 Obesity Discharge Diagnosis 07/18/20 GERD (gastroesophageal reflux disease) Discharge Diagnosis 07/18/20 Prediabetes Discharge Diagnosis 07/18/20 Vital Signs Most recent to oldest [Reference Range]: 1 2 Height 193 cm (07/18/20 10:08 AM) 193 cm (07/18/20 9:23 AM) Weight 130.3 kg (07/18/20 9:23 AM) Oxygen Saturation [94-100 %] 96 % (07/18/20 9:23 AM) Pulse Rate [55-90 bpm] 86 bpm (07/18/20 9:23 AM) Body Mass Index [18.5-24.99] 34.98 *>HHI* (07/18/20 9:23 AM) Blood Pressure [90-138/55-84 mm Hg] 166/ 92mm Hg *H* (07/18/20 10:08 AM) 172/97mm Hg *H* (07/18/20 9:23 AM) Mode of Delivery (Oxygen) Room air (07/18/20 9:23 AM) Blood pressure sites Arm, left (07/18/20 10:08 AM) Arm, left (07/18/20 9:23 AM) Weight Obtained Via Standing scale (07/18/20 9:23 AM) Social History Social History Type Response Smoking Status 10 or more cigarette s (1/2 pack or more)/day in last 30 days entered on: 01/12/19 Sex
--- OUTSIDE RECORDS SUMMARY | 2023-09-21 20:46 | XMS_ITS | Continuity of Care Document ---
Author Organization [facility] Address [address] [place] [address]- Care Team Providers Care Director Of Academic Support Name Role Phone Brandon MIRANDA, Aubrey Primary Care Physician ( [phone] Encounter [facility] Date(s): 01/08/22 - 02/07/22 [facility] [address] [place] [address]- Attending Physician: Admtr, Ashley Admitting Physician: Admtr, [id number] Referring Physician: Admtr, [...] capsule, 1 Refills, Maintenance, 11/20/21 19:17:00 EDT, [facility]/pharmacy #[id number], 193, cm, 09/25/21 8:45:00 EDT, Height Start Date: 11/20/21 Stop Date: 05/19/22 Status: Ordered Emgality Prefilled Syringe 100 mg/mL subcutaneous solution = 300 mg, Subcutaneous Injection, Every 28 days, # 3 kit, 5 Refills, Maintenance, 05/05/21 11:56:00EST, Solution, [facility], Partial fill upon patient request [...] 10/26/21 8:03:00 EDT, Route to Pharmacy Electronically, [facility], 193, cm, 09/25/21 8:45:00 EDT, Height Start Date: 10/26/21 Stop Date: 11/25/21 Status: Ordered losartan 50 mg oral tablet 1 tablet, By Mouth, Daily, # 90 tablet, 1 Refills, Maintenance, 01/13/22 9:33:00 EST, [facility], 193, cm, 01/01/22 9:25:00 EDT, Height, 110.2, kg, 01/01/22 9:25:00 EDT, Dry Weight Start Date: 01/13/22 Status: Ordered metFORMIN 1000 mg oral tablet 1 tablet, By Mouth, 2 times a day, # 60 tablet, 5 Refills, Maintenance, 01/13/22 9:33:00 EST, [id number], 193, cm, 01/01/22 9:25:00 EDT, Height, 110.2, kg, 01/01/22 9:25:00 EDT, Dry Weight Start Date: 01/13/22 Status: Ordered NuLYTELY with Flavor Packs oral powder for reconstitution See Instructions, Drink 240mL every 15-20 minutes until first half is gone. Repeat 6 hours prior toprocedure., # 4,000 mL, 0 Refills, Maintenance, 03/19/21 12:55:00 EST, [facility]/pharmacy #[id number], Partial fill upon patient request if the [...] 02/08/23 16:46:00 EST, 05/05/21 16:45:00 EST, Tablet, [facility], 193robert, 05/05/21 11:20:... Start Date: [...] Team Personnel Name: Aubrey Taylor MD Position: [facility] Primary Care Physician Member Role: PCP Address: Address: [address] [place] [id number] Name: Tarah Schmitt RN Position: [facility] RN Member Role: Primary Care Nurse Name: Maricruz Vinson RN Position: S RN Member Role: Primary Care Nurse Name: Melodie Hampton Position: [facility] Onco RN Member Role: Primary Care Nurse Care Team Related Persons Name: ELIJAH MARIA Address: home [address] [place], [place] Name: ABDIRAHMAN LEON Name: JONATHAN LEON Address: home [address] [place], [place]
--- OUTSIDE RECORDS SUMMARY | 2023-09-21 20:46 | XMS_ITS | Continuity of Care Document ---
Author Organization [facility] Address [address] [place] [address]- Care Team Providers Care Pasteurizing Machine Operator Name Role Phone Brandon MIRANDA, [facility] Primary Care Physician [place] [facility] [place]s): 06/07/22 - 07/07/22 [facility] [address] [place] [id number]- Allergies, Adverse Reactions, Alerts No Known Allergies [...] tablet, 3 Refills, Maintenance, 03/16/22 12:18:00 EST, [id number], 193, cm, 03/12/22 10:49:00 EST, Height, 107, [...] Refills, Maintenance, 06/16/22 13:19:00 EDT, CD Capsule, [facility]/pharmacy #[id number], Partial fill upon patient request if the prescription is for a schedule II opi... Start Date: 06/16/22 Stop Date: 09/14/22 Status: Ordered diltiazem 120 mg/24 hours oral capsule, extended release 120 mg, 1, capsule, By Mouth, Daily, # 30 capsule, Refills 0, Tot. Refills 0, Maintenance, :52:00 EDT, Route to Pharmacy Electronically, [facility]/pharmacy #[id number], Partial fill upon patient [...] 90 capsule, 0 Refills, Maintenance, 05/21/22 16:20:00EDT, [facility]/pharmacy #[id number], Partial fill upon patient request if the prescription is for a schedule IIopioid drug., 175, cm, 05/19/22 9:32:00 EDT, Height... Start Date: 05/21/22 Status: Ordered losartan 50 mg oral tablet 75 mg, 1.5, tablet, By Mouth, Daily, # 45 tablet, Refills 5, Tot. Refills 5, Maintenance, 07/06/22 15:32:00 EDT, Route to Pharmacy Electronically, [facility]/pharmacy #[id number], Partial fill upon patient request if the prescription is for a schedule II opioid dr... Start Date: 07/06/22 Stop Date: 01/02/23 Status: Ordered metFORMIN 1000 mg oral tablet 1 tablet, By Mouth, 2 times a day, # 60 tablet, 5 Refills, Maintenance, 01/13/22 9:33:00 EST, [facility] [id number], 193, cm, 01/01/22 9:25:00 EDT, Height, 110.2, [...] tablet, 11 Refills, Maintenance, 06/14/22 9:12:00 EDT, [facility]/pharmacy #[id number], Partial fill upon patient [...] Care Physician Member Role: PCP Address: Address: [address] [place] [id number] Name: Maricruz Vinson RN Position: S RN Member Role: Primary Care Nurse Name: Melodie Hampton Position: [facility] Onco RN Member Role: Primary Care Nurse Name: Emeka Patel MD Position: [facility] Renal MD Member Role: Lifetime Consulting Physician Address: Address: [address] [facility], [place] [address]- Name: Kevin Cool RN Position: [facility] RN Member Role: Primary Care Nurse Care Team Related Persons Name: ELIJAH MARIA Address: home [address] [place] [address] Name: ABDIRAHMAN LEON Name: JONATHAN LEON Address: home [address] [place] [address]
--- OUTSIDE RECORDS SUMMARY | 2023-09-21 20:46 | XMS_ITS | Continuity of Care Document ---
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 Primary Care Physician [place] [facility] [place] 08[place]08/21 [facility] [address] [place] [id number]- Attending Physician: Brandon MIRANDA, Aubrey Allergies, Adverse Reactions, Alerts No Known Allergies Immunizations Given and Recorded Vaccine Date Status Refusal Reason SARS-CoV-2 (COVID-19) mRNA BNT-162b2 vac 08/13/20 Recorded tetanus/diphtheria/pertussis, acel(Tdap) 12/27/18 Given tetanus-diphtheria toxoids (Td) 12/01/11 Recorded Medications atorvastatin 20 mg oral tablet 1 tablet = 20 mg, By Mouth, Daily, # 90 tablet, 3 Refills, Maintenance, 05/15/21 10:02:00 EDT, Tablet, [facility]/pharmacy #[id number], Partial fill upon [...] 01/13/21 10:41:00 EST, Route to Pharmacy Electronically, [id number], 193, cm, 01/13/21 10:15:00 EST, Height Start Date: 01/13/21 Stop Date: 01/08/22 Status: Ordered Emgality Prefilled Syringe 100 mg/mL subcutaneous solution = 300 mg, Subcutaneous Injection, Every 28 days, # 3 kit, 5 Refills, Maintenance, 05/05/21 11:56:00EST, Solution, [facility], Partial fill upon patient [...] tablet, By Mouth, Every 8 hours, PRN, for 30 days, # 90 tablet, Refills 0, Tot. Refills 0, Physician Stop 08/16/21 16:04:00 EDT, NEEDED FOR MODERATE PAIN, 07/17/21 16:04:00 EDT, Route to Pharmacy Electronically, [facility]/pharmacy #[id number], 193, cm, 06/29... Start Date: 07/17/21 Stop Date: 08/16/21 Status: Ordered losartan 50 mg oral tablet 50 mg, 1, tablet, By Mouth, Daily, # 30 tablet, Refills 3, Tot. Refills 3, Maintenance, 06/23/21 9:03:00 EDT, Route to Pharmacy Electronically, [facility]/pharmacy #[id number], Partial fill upon patient request if the prescription is for a schedule II opioid drug.... Start Date: 06/23/21 Stop Date: 10/21/21 Status: Ordered metFORMIN 1000 mg oral tablet 1 tablet = 1,000 mg, By Mouth, 2 times a day, # 60 tablet, 5 Refills, Maintenance, 01/13/21 10:41:00 EST, Tablet, [facility]/pharmacy #[id number], Partial fill upon patient request if the prescription is for a schedule II opioid drug., 193, cm, 01/13/21 10:15:00 E... Start Date: 01/13/21 Status: Ordered NuLYTELY with Flavor Packs oral powder for reconstitution See Instructions, Drink 240mL every 15-20 minutes until first half is gone. Repeat 6 hours prior toprocedure., # 4,000 mL, 0 Refills, Maintenance, 03/19/21 12:55:00 EST, [facility]/pharmacy #[id number], Partial fill upon patient request if the prescription is fo... Start Date: 03/19/21 Status: Ordered omeprazole 20 mg oral enteric coated capsule 1 capsule = 20 mg, By Mouth, Daily, before a meal, # 30 capsule, 11 Refills, Maintenance, 01/13/21 10:41:00 EST, EC Capsule, [facility]/pharmacy #[id number], 193, cm, 01/13/21 10:15:00 EST, Height Start Date: 01/13/21 Stop Date: 01/08/22 Status: Ordered SUMAtriptan 100 mg oral tablet 1 tablet = 100 mg, By Mouth, Daily, PRN for migraine headache, may repeat dose after 2 hours up to a maximum of 2, # 9 tablet, 0 Refills, Acute 02/08/23 16:46:00 EST, 05/05/21 16:45:00 EST, Tablet, [facility], 193, cm, 05/05/21 11:20:... [...]
--- OUTSIDE RECORDS SUMMARY | 2023-09-21 20:46 | XMS_ITS | Continuity of Care Document ---
Author Organization [facility] Address [address] [place] [address]- Care Team Providers Care Procurement Professional Logistics Name Role Phone Brandon MIRANDA, Aubrey Primary Care Physician ( [phone] Encounter [facility] [place] Date(s): 05/28/20 - 06/27/20 [facility] [address] [place] [address]- Allergies, Adverse Reactions, Alerts Substance Reaction Severity Status NKA Active Immunizations Given and Recorded Vaccine Date Status Refusal Reason tetanus/diphtheria/pertussis, acel(Tdap) 12/27/18 Given Medications diltiazem 180 mg/24 hours oral capsule, extended release 180 mg, 1, capsule, By Mouth, Daily, # 30 capsule, Refills 11, Tot. Refills 11, Maintenance, 01/09/20 10:49:00 EST, Route to Pharmacy Electronically, [facility]/pharmacy #[id number], 193, cm, 05/14/19 10:06:00 EDT, Height, 125, kg, 12/12/18 13:42:00 EDT, Dry Weight Start Date: 01/09/20 Stop Date: 01/03/21 Status: Ordered omeprazole 20 mg oral enteric coated capsule 1 capsule = 20 mg, By Mouth, 2 times a day, before a meal, # 60 capsule, 2 Refills, Maintenance, 01/09/20 10:42:00 EST, EC Capsule, [facility]/pharmacy #[id number], 193, cm, 05/14/19 10:06:00 EDT, Height, [...]
--- OUTSIDE RECORDS SUMMARY | 2023-09-21 20:46 | XMS_ITS | Continuity of Care Document ---
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 Name Role Phone Brandon MIRANDA, [facility] Primary Care Physician [place] [facility] [place]s): 04/05/22 - 05/05/22 [facility] [address] [place] [id number] Allergies, Adverse Reactions, Alerts No Known Allergies Immunizations Given and Recorded Vaccine Date Status Refusal Reason SARS-CoV-2 (COVID-19) mRNA BNT-162b2 vac 08/13/20 Recorded tetanus/diphtheria/pertussis, acel(Tdap) 12/27/18 Given tetanus-diphtheria toxoids (Td) 12/01/11 Recorded Medications aspirin 81 mg oral delayed release [...] Refills, Maintenance, 03/16/22 12:18:00 EST, [facility], 193, cm, 03/12/22 10:49:00 EST, Height, 107, kg, 02/16/22 11:18:00 EST, Dry Weight Start Date: 03/16/22 Status: Ordered Azithromycin 5 Day Dose Pack 250 mg oral tablet 1 pack/packet, By Mouth, Once, as directed on package labeling, # 6 tablet, 0 Refills, Soft Stop, 09/25/21 11:02:00 EDT, Tablet, [id number], Partial fill upon patient request if the [...] capsule, 1 Refills, Maintenance, 11/20/21 19:17:00 EDT, [facility]/pharmacy #[id number], 193, cm, 09/25/21 8:45:00 EDT, Height Start Date: 11/20/21 Stop Date: 05/19/22 Status: Ordered Emgality Prefilled Syringe 100 mg/mL subcutaneous solution = 300 mg, Subcutaneous Injection, Every 28 days, # 3 kit, 5 Refills, Maintenance, 05/05/21 11:56:00EST, Solution, [facility], Partial fill upon patient request [...] 02/23/22 8:53:00 EST, Route to Pharmacy Electronically, [facility], 193, cm, 02/16/22 11:18:00 EST, Height, 107, kg, 02/16/22 11:18:00... Start Date: 02/23/22 Stop Date: 03/25/22 Status: Ordered loperamide 2 mg oral capsule 4 mg, 2, capsule, By Mouth, Every 4 hours, not to exceed 8 capsules, or 16 mg, in 24 hours after each loose stool, # 60 capsule, Refills 1, Tot. Refills 1, Maintenance, 03/12/22 10:33:00 EST, Route to Pharmacy Electronically, [facility]/pharmacy #[id number], Part... Start Date: 03/12/22 Status: Ordered losartan 50 mg oral tablet 1 tablet, By Mouth, Daily, # 90 tablet, 1 Refills, Maintenance, 01/13/22 9:33:00 EST, [facility], 193, cm, 01/01/22 9:25:00 EDT, Height, 110.2, kg, 01/01/22 9:25:00 EDT, Dry Weight Start Date: 01/13/22 Status: Ordered metFORMIN 1000 mg oral tablet 1 tablet, By Mouth, 2 times a day, # 60 tablet, 5 Refills, Maintenance, 01/13/22 9:33:00 EST, [facility] 97[facility], 193, cm, 01/01/22 9:25:00 EDT, Height, 110.2, kg, 01/01/22 9:25:00 EDT, Dry Weight Start Date: 01/13/22 Status: Ordered NuLYTELY with Flavor Packs oral powder for reconstitution See Instructions, Drink 240mL every 15-20 minutes until first half is gone. Repeat 6 hours prior toprocedure., # 4,000 mL, 0 Refills, Maintenance, 03/19/21 12:55:00 EST, [facility]/pharmacy #[id number], Partial fill upon patient request if the prescription is fo... Start Date: 03/19/21 Status: Ordered omeprazole 20 mg oral enteric coated capsule See Instructions, TAKE 1 CAPSULE BY MOUTH DAILY BEFORE A MEAL X30 DAYS, # 90 capsule, 1 Refills, Maintenance, 11/20/21 19:18:00 EDT, [facility]/pharmacy #[id number], PATIENT NEEDS TO CALL OFFICE FOR APPOINTMENT, 193, robert, 09/25/21 8:45:00 EDT, Height Start Date: 11/20/21 Status: Ordered prochlorperazine 5 mg oral tablet 1 tablet = 5 mg, By Mouth, Every 6 hours, PRN Nausea & Vomiting, may cause drowsiness, # 30 tablet, 0 Refills, Maintenance, 03/18/22 9:30:00 EST, [facility]/pharmacy #[id number], Partial fill upon [...] 02/08/23 16:46:00 EST, 05/05/21 16:45:00 EST, Tablet, [facility], 193, robert, 05/05/21 11:20:... Start Date: 05/05/21 Stop Date: [...] Care Nurse Name: Aubrey Taylor MD Position: [facility] Primary Care Physician Member Role: PCP Address: Address: [address] [place] [id number] Name: Maricruz Vinson RN Position: S RN Member Role: Primary Care Nurse Name: Melodie Hampton Position: [facility] Onco RN Member Role: Primary Care Nurse Care Team Related Persons Name: ELIJAH MARIA Address: home [address] Name: ABDIRAHMAN LEON Name: JONATHAN LEON Address: home [address] [place] [address]
--- OUTSIDE RECORDS SUMMARY | 2023-09-21 20:46 | XMS_ITS | Continuity of Care Document ---
Author Organization [facility] Address [address] [place] [address]- Care Team Providers Care Government Documents Librarian Name Role Phone Brandon MIRANDA, [facility] Primary [facility] Physician Encounter [facility] [place] Date(s): 02/09/21 - 03/11/21 [facility] [address] [place] [id number]- Allergies, Adverse Reactions, Alerts Substance Reaction Severity Status NKA Active Immunizations Given and Recorded Vaccine Date Status Refusal Reason SARS-CoV-2 (COVID-19) mRNA BNT-162b2 vac 08/13/20 Recorded tetanus/diphtheria/pertussis, acel(Tdap) 12/27/18 Given tetanus-diphtheria toxoids (Td) 12/01/11 Recorded Medications atorvastatin 20 mg oral tablet 1 tablet = 20 mg, By Mouth, Daily, # 30 tablet, 4 Refills, Maintenance, 01/13/21 10:36:00 EST, Tablet, [facility]/pharmacy #[id number], Partial fill upon patient request if the prescription is for a schedule II opioid drug., 193, cm, 01/13/21 10:15:00 EST, Height Start Date: 01/13/21 Stop Date: 06/12/21 Status: Ordered Colace sodium 100 mg oral capsule 100 mg, 1, capsule, By Mouth, 2 times a day, PRN, # 20 capsule, Refills 0, Tot. Refills 0, Maintenance, for constipation, 02/04/21 16:26:00 EST, Route to Pharmacy Electronically, [facility]/pharmacy #[id number], Partial fill upon patient request if the prescriptio... Start Date: 02/04/21 Status: Ordered diltiazem 180 mg/24 hours oral capsule, extended release 180 mg, 1, capsule, By Mouth, Daily, for 30 days, # 30 capsule, Refills 11, Tot. Refills 11, Hard Stop 01/08/22 10:41:00 EST, 01/13/21 10:41:00 EST, Route to Pharmacy Electronically, [facility]/pharmacy #[id number], 193, cm, 01/13/21 10:15:00 EST, Height Start Date: 01/13/21 Stop Date: 01/08/22 Status: Ordered Freestyle Lancets See Instructions, # [...] 02/23/21 11:18:00 EST, Route to Pharmacy Electronically, [facility]/pharmacy #[id number], Partial fill upon patient request if the prescription i... Start Date: 02/23/21 Status: Ordered ibuprofen 600 mg oral tablet 600 mg, 1, tablet, By Mouth, Every 8 hours, PRN, # 30 tablet, Refills 1, Tot. Refills 1, Maintenance, Pain , Moderate, 01/13/21 10:32:00 EST, Route to Pharmacy Electronically, [facility]/pharmacy #[id number], Partial fill upon patient request if the prescription i... Start Date: 01/13/21 Status: Ordered losartan 25 mg oral tablet 25 mg, 1, tablet, By Mouth, Daily, # 30 tablet, Refills 6, Tot. Refills 6, Maintenance, 01/13/21 10:41:00 EST, Route to Pharmacy Electronically, [id number], Partial fill upon patient request if the prescription is for a schedule II opioid drug... Start Date: 01/13/21 Stop Date: 08/11/21 Status: Ordered metFORMIN 1000 mg oral tablet 1 tablet = 1,000 mg, By Mouth, 2 times a day, # 60 tablet, 5 Refills, Maintenance, 01/13/21 10:41:00 EST, Tablet, [facility]/pharmacy #[id number], Partial fill upon patient request if the prescription is for a schedule II opioid drug., 193, cm, 01/13/21 10:15:00 E... Start Date: 01/13/21 Status: Ordered omeprazole 20 mg oral enteric coated capsule 1 capsule = 20 mg, By Mouth, Daily, before a meal, # 30 capsule, 11 Refills, Maintenance, 01/13/21 10:41:00 EST, EC Capsule, [facility]/pharmacy #[id number], 193, cm, 01/13/21 10:15:00 EST, Height Start Date: 01/13/21 Stop Date: 01/08/22 Status: Ordered Sumatriptan Once, 0 Refills, Maintenance, 03/13/18 16:47:05 EST Start Date: 03/13/18 Status: Ordered traMADol 50 mg oral tablet 1 tablet = 50 mg, By Mouth, Every 12 hours, PRN as needed for pain, 0 Refills, Maintenance, 01/13/21 10:41:00 EST, Tablet, Partial fill upon patient request if the prescription is for a schedule II opioid drug. Start Date: 01/13/21 Status: Ordered Problem List Condition Effective Dates Status Health Status Inform ant Cluster headache(Confirmed) Active GERD (gastroesophageal reflu x disease)(Confirmed) Active Hyperlipidemia(Confirmed) Active HTN (hypertension)(Confirmed) Active Elevated cholesterol with hi gh triglycerides(Confirmed) 01/11/20 Active Obese class I(Confirmed) Active Obesity(Confirmed) Active Tobacco use(Confirmed) Active Type 2 diabetes mellitus, uncontrolled(Confirmed) Active Social History Social History Type Response Smoking Status 10 or more cigarette s (1/2 pack or more)/day in last 30 days entered on: 01/12/19 Sex
--- OUTSIDE RECORDS SUMMARY | 2023-09-21 20:46 | XMS_ITS | Continuity of Care Document ---
Author Organization [facility] Adult Address [address] [place] [address]- Care Team Providers Care Baseball Club Manager Name Role Phone Brandon MIRANDA, [facility] Primary Care Physician Encounter [facility] Date(s): 05/11/22 - 06/10/22 [facility] Adult [address] [place] [address]- Allergies, Adverse Reactions, Alerts No Known Allergies [...] tablet, 3 Refills, Maintenance, 03/16/22 12:18:00 EST, [facility] STORE [id number], 193, cm, 03/12/22 10:49:00 EST, Height, 107, kg, 02/16/22 11:18:00 EST, Dry Weight Start Date: 03/16/22 Status: Ordered dabrafenib 75 mg oral capsule [...] Maintenance, :52:00 EDT, Route to Pharmacy Electronically, [facility]/pharmacy #[id number], Partial fill upon patient request [...] 90 capsule, 0 Refills, Maintenance, 05/21/22 16:20:00EDT, [facility]/pharmacy #[id number], Partial fill upon patient request [...] tablet, 5 Refills, Maintenance, 01/13/22 9:33:00 EST, [facility] STORE [id number], 193, cm, 01/01/22 9:25:00 EDT, Height, 110.2, kg, 01/01/22 9:25:00 EDT, Dry Weight Start Date: 01/13/22 Status: Ordered omeprazole 20 mg oral enteric coated capsule See Instructions, TAKE 1 CAPSULE BY MOUTH DAILY BEFORE A MEAL X30 DAYS, # 90 capsule, 1 Refills, Maintenance, 11/20/21 19:18:00 EDT, [facility]/pharmacy #[id number], PATIENT NEEDS TO CALL OFFICE FOR APPOINTMENT, 193, cm, 09/25/21 8:45:00 EDT, Height Start Date: 11/20/21 Status: Ordered Oxygen face mask Oxygen face mask, See Instructions, # 1 each, Refills 0, Tot. Refills 0, Maintenance, O2 fask mask to use with nebulizer, 05/18/22 16:08:00 EDT, Supply Start Date: 05/18/22 Status: Ordered trametinib 2 mg oral tablet [...] Care Nurse Name: Aubrey Taylor MD Position: [facility] Primary Care Physician Member Role: PCP Address: Address: [address] [place] [address] 3rd [place] [address]- [place] Name: Maricruz Vinson RN Position: S RN Member Role: Primary Care Nurse Name: Melodie Hampton Position: [facility] Onco RN Member Role: Primary Care Nurse Name: Emeka Patel MD Position: [facility] Renal MD Member Role: Lifetime Consulting Physician Address: Address: [address] [facility], [place] [address]- [place] Name: Kevin Cool RN Position: S RN Member Role: Primary Care Nurse Care Team Related Persons Name: ELIJAH MARIA Address: home [address] [place] [address] Name: ABDIRAHMAN LEON Name: JONATHAN LEON Address: home [address] [place] [address]
--- OUTSIDE RECORDS SUMMARY | 2023-09-21 20:46 | XMS_ITS | Continuity of Care Document ---
Author Organization [facility] Adult Address [address] [place] [address]- Care Team Providers Care Digital Content Manager Name Role Phone Brandon MIRANDA, [facility] Primary Care Physician ( [phone] [place] [facility] 07/16/22 - 08/15/22 [facility] [address] [place] [address]- Allergies, Adverse Reactions, Alerts No Known Allergies [...] tablet, 3 Refills, Maintenance, 03/16/22 12:18:00 EST, [facility] STORE [id number], 193, cm, 03/12/22 10:49:00 EST, Height, 107, [...] Refills, Maintenance, 06/16/22 13:19:00 EDT, CD Capsule, [facility]/pharmacy #[id number], Partial fill upon patient request if the prescription is for a schedule II opi... Start Date: 06/16/22 Stop Date: 09/14/22 Status: Ordered diltiazem 120 mg/24 hours oral capsule, extended release 120 mg, 1, capsule, By Mouth, Daily, # 30 capsule, Refills 0, Tot. Refills 0, Maintenance, :52:00 EDT, Route to Pharmacy Electronically, [facility]/pharmacy #[id number], Partial fill upon patient request [...] 90 capsule, 0 Refills, Maintenance, 05/21/22 16:20:00EDT, [facility]/pharmacy #[id number], Partial fill upon patient request if the prescription is for a schedule IIopioid drug., 175, cm, 05/19/22 9:32:00 EDT, Height... Start Date: 05/21/22 Status: Ordered losartan 50 mg oral tablet 75 mg, 1.5, tablet, By Mouth, Daily, # 45 tablet, Refills 5, Tot. Refills 5, Maintenance, 07/06/22 15:32:00 EDT, Route to Pharmacy Electronically, [facility]/pharmacy #[id number], Partial fill upon patient request if the prescription is for a schedule II opioid dr... Start Date: 07/06/22 Stop Date: 01/02/23 Status: Ordered metFORMIN 1000 mg oral tablet 1 tablet, By Mouth, 2 times a day, # 60 tablet, 2 Refills, Maintenance, 07/13/22 11:11:00 EDT, [facility]/pharmacy #[id number], 175, cm, 06/04/22 8:29:00 EDT, Height, 109, kg, 06/04/22 8:29:00 EDT, Dry Weight Start Date: 07/13/22 Status: Ordered omeprazole 20 mg oral enteric coated capsule See Instructions, TAKE 1 CAPSULE BY MOUTH DAILY BEFORE A MEAL X30 DAYS, # 90 capsule, 1 Refills, Maintenance, 07/16/22 11:48:00 EDT, [facility]/pharmacy #[id number], PATIENT NEEDS TO CALL OFFICE [...] tablet, 11 Refills, Maintenance, 06/14/22 9:12:00 EDT, [facility]/pharmacy #[id number], Partial fill upon patient request [...] Primary Care Member Role: PCP Address: Address: [address] [place] [address] [address] [place] [address]- [place] Name: Maricruz Vinson RN Position: S RN Member Role: Primary Care Nurse Name: Melodie Hampton Position: [facility] Onco RN Member Role: Primary Care Nurse Name: Emeka Patel MD Position: [facility] Renal MD Member Role: Lifetime Consulting Physician Address: Address: [address] [facility] [address] [facility], [place] [address]- [place] Name: Kevin Cool RN Position: S RN Member Role: Primary Care Nurse Care Team Related Persons Name: ELIJAH MARIA Address: home [address] [place] [address] Name: ABDIRAHMAN LEON Name: JONATHAN LEON Address: home [address] [place] [address]
--- OUTSIDE RECORDS SUMMARY | 2023-09-21 20:46 | XMS_ITS | Continuity of Care Document ---
Author Organization [facility] Adult Address [address] [place] [address]- Care Team Providers Care Bus Inspector Name Role Phone Brandon MIRANDA, [facility] Primary Care Physician Encounter [facility] Date(s): 01/19/23 - 02/18/23 [facility] Adult [address] [place] [address]- Attending Physician: Ashley Craft Admitting Physician: Ashley [...] tablet, 3 Refills, Maintenance, 03/16/22 12:18:00 EST, [facility] ST[facility] [id number], 193, cm, 03/12/22 10:49:00 EST, Height, 107, [...] Refills, Maintenance, 06/16/22 13:19:00 EDT, CD Capsule, [facility]/pharmacy #[id number], Partial fill upon patient request if the prescription is for a schedule II opi... Start Date: 06/16/22 Stop Date: 09/14/22 Status: Ordered diltiazem 120 mg/24 hours oral capsule, extended release 120 mg, 1, capsule, By Mouth, Daily, # 30 capsule, Refills 0, Tot. Refills 0, Maintenance, :52:00 EDT, Route to Pharmacy Electronically, [facility]/pharmacy #[id number], Partial fill upon patient request if [...] EDT, Height Start Date: 12/27/20 Status: Ordered ibuprofen 600 mg oral tablet 1, tablet, By Mouth, Every 8 hours, PRN, # 90 tablet, Refills 0, Maintenance, NEEDED FOR MODERATE PAIN FOR, 01/07/23 17:06:00 EST, Route to Pharmacy Electronically, [facility] STORE [id number], 175, cm, 06/04/22 8:29:00 EDT, Height, 109, kg, 06/04/22 8:29:00 E... Start Date: 01/07/23 Stop Date: 02/06/23 Status: Ordered indomethacin 25 mg oral capsule 1 capsule = 25 mg, By Mouth, 3 times a day, # 90 capsule, 0 Refills, Maintenance, 05/21/22 16:20:00EDT, [facility]/pharmacy #[id number], Partial fill upon patient request if the prescription is for a schedule IIopioid drug., 175, cm, 05/19/22 9:32:00 EDT, Height... Start Date: 05/21/22 Status: Ordered losartan 50 mg oral tablet 75 mg, 1.5, tablet, By Mouth, Daily, # 45 tablet, Refills 5, Tot. Refills 5, Maintenance, 07/06/22 15:32:00 EDT, Route to Pharmacy Electronically, [facility]/pharmacy #[id number], Partial fill upon patient request if the prescription is for a schedule II opioid dr... Start Date: 07/06/22 Stop Date: 01/02/23 Status: Ordered metFORMIN 1000 mg oral tablet 1 tablet, By Mouth, 2 times a day, # 180 tablet, 0 Refills, Maintenance, 10/11/22 16:11:00 EDT[facility] [id number], 175, cm, 06/04/22 8:29:00 EDT, Height, 109, kg, 06/04/22 8:29:00 EDT, Dry Weight Start Date: 10/11/22 Status: Ordered omeprazole 20 mg oral enteric coated capsule See Instructions, TAKE 1 CAPSULE BY MOUTH DAILY BEFORE A MEAL X30 DAYS, # 90 capsule, 1 Refills, Maintenance, 07/16/22 11:48:00 EDT, [facility]/pharmacy #[id number], PATIENT NEEDS TO CALL OFFICE FOR [...] tablet, 11 Refills, Maintenance, 06/14/22 9:12:00 EDT, [facility]/pharmacy #[id number], Partial fill upon patient request if [...] pack year hx; entered on: 05/06/22 Sex Cardiology * Event Display: Non BH Cardiovascular Results Authored Date: Laboratory * Event Display: Non [facility] Lab Results Authored Date: * Event Display: Non BH Lab Results Authored Date: * Event Display: Non BH Lab Results Authored Date: Hospital Progress note * Peter MIRANDA, Ange Sanches: PERFORM Event Display: Progress Note Hospital Authored Date: [id number] Patient: ??JESSE PATRICK ? Age:??53 Years?Sex:??Male?:??1965? Subjective No acute overnight events. Patient reports no further drainage overnight, minimal improvement to periorbital edema. Denies any nausea, vomiting, fever, chills, chest pain or sob at this time. Patientwishes to go home. Physical Exam PHYSICAL EXAMINATION: GENERAL: No acute distress. Non-toxic. Well appearing and interactive.?? HEENT: R eyebrow with cyst, draining sebum with expression, erythema and tenderness improved from previous. Right periorbital edema unchanged. EOMI without tenderness. Assessment/Plan Jesse Patrick is a 53yo man with PMH of HTN & GERD - who presented with 5 days ofR periorbital edema & pain, which failed to improve on outpatient antibiotics. The patient is afebrile, hemodynamically stable with exam concerning for an infected cyst, with surrounding periorbital & facial cellulitis. He is s/p bedside I&D of facial cyst with incomplete drainage. Drain age continues this AM but periorbital cellulitis unchanged from previous. Patient counseled on benefit of further IV antibiotics and declined further inpatient stay. He is scheduled for outpatient follow-up and encouraged to return if any worsening of current symptoms, or worsening eye symptoms. ?? Please page plastic surgery, [phone], with any questions or concerns Case was discussed with Dr. Carmona Intake and Output Intake and Output Results?? No results in record. Labs Last 24 Hours No qualifying data available. Patient Care team information Care Team Personnel Name: Tarah Carbajal RN Position: S RN Member Role: Primary Care Nurse Name: Aubrey Taylor MD Position: [facility] Physician - Primary Care Member Role: PCP Address: Address: [address] 3rd [place] [address]- Name: Maricruz Vinson RN Position: S RN Member Role: Primary Care Nurse Name: Melodie Hampton Position: [facility] Onco RN Member Role: Primary Care Nurse Name: Emeka Patel MD Position: [facility] Renal MD Member Role: Lifetime Consulting Physician Address: Address: [address] [place] [address] [address] [facility] [place] [address]- Name: Kevin Cool RN Position: S RN Member Role: Primary Care Nurse Care Team Related Persons Name: ELIJAH MARIA Address: home [address] [place], [place] Name: JESSE PATRICK Name: JONATHAN PATRICK Address: home [address] [place], [place]
--- OUTSIDE RECORDS SUMMARY | 2023-09-21 20:46 | XMS_ITS | Continuity of Care Document ---
Author Organization [facility] Adult Address [address] [place] [address]- Care Team Providers Care Learning Disabled Teacher Name Role Phone Brandon MIRANDA, [facility] Primary Care Physician Encounter [facility] Date(s): 07/06/22 - 08/05/22 [facility] Adult [address] [place] [address]- Allergies, Adverse Reactions, Alerts No Known Allergies [...] tablet, 3 Refills, Maintenance, 03/16/22 12:18:00 EST, [facility] STORE [id number], 193, cm, 03/12/22 10:49:00 EST, Height, 107, [...] Refills, Maintenance, 06/16/22 13:19:00 EDT, CD Capsule, [facility]/pharmacy #[id number], Partial fill upon patient request if the prescription is for a schedule II opi... Start Date: 06/16/22 Stop Date: 09/14/22 Status: Ordered diltiazem 120 mg/24 hours oral capsule, extended release 120 mg, 1, capsule, By Mouth, Daily, # 30 capsule, Refills 0, Tot. Refills 0, Maintenance, :52:00 EDT, Route to Pharmacy Electronically, [facility]/pharmacy #[id number], Partial fill upon [...] 90 capsule, 0 Refills, Maintenance, 05/21/22 16:20:00EDT, [facility]/pharmacy #[id number], Partial fill upon patient request if the prescription is for a schedule IIopioid drug., 175, cm, 05/19/22 9:32:00 EDT, Height... Start Date: 05/21/22 Status: Ordered losartan 50 mg oral tablet 75 mg, 1.5, tablet, By Mouth, Daily, # 45 tablet, Refills 5, Tot. Refills 5, Maintenance, 07/06/22 15:32:00 EDT, Route to Pharmacy Electronically, [facility]/pharmacy #[id number], Partial fill upon patient request if the prescription is for a schedule II opioid dr... Start Date: 07/06/22 Stop Date: 01/02/23 Status: Ordered metFORMIN 1000 mg oral tablet 1 tablet, By Mouth, 2 times a day, # 60 tablet, 2 Refills, Maintenance, 07/13/22 11:11:00 EDT, [facility]/pharmacy #[id number], 175, cm, 06/04/22 8:29:00 EDT, Height, 109, kg, 06/04/22 8:29:00 EDT, Dry Weight Start Date: 07/13/22 Status: Ordered omeprazole 20 mg oral enteric coated capsule See Instructions, TAKE 1 CAPSULE BY MOUTH DAILY BEFORE A MEAL X30 DAYS, # 90 capsule, 1 Refills, Maintenance, 07/16/22 11:48:00 EDT, [facility]/pharmacy #[id number], PATIENT NEEDS TO [...] tablet, 11 Refills, Maintenance, 06/14/22 9:12:00 EDT, [facility]/pharmacy #[id number], Partial fill upon [...] Primary Care Member Role: PCP Address: Address: [address] [place] [address] [address] [place] [address]- [place] Name: Maricruz Vinson RN Position: S RN Member Role: Primary Care Nurse Name: Melodie Hampton Position: [facility] Onco RN Member Role: Primary Care Nurse Name: Emeka Patel MD Position: [facility] Renal MD Member Role: Lifetime Consulting Physician Address: Address: [address] [facility] [address] [facility] [place] [address]- [place] Name: Kevin Cool RN Position: S RN Member Role: Primary Care Nurse Care Team Related Persons Name: ELIJAH MARIA Address: home [address] [place] [address] Name: ABDIRAHMAN LEON Name: JONATHAN LEON Address: home [address] [place] [address]
--- OUTSIDE RECORDS SUMMARY | 2023-09-21 20:46 | XMS_ITS | Continuity of Care Document ---
Author Organization [facility] Adult Address [address] [place] [address]- Care Team Providers Care Copy Coordinator Name Role Phone Brandon MIRANDA, Aubrey Primary Care Physician Encounter [facility] Date(s): 03/31/20 - 04/07/20 [facility] Adult [address] [place] [address]- Encounter Diagnosis Cluster headache(Discharge Diagnosis) - 03/31/20 Attending Physician: Aubrey Taylor MD Allergies, Adverse Reactions, Alerts Substance Reaction Severity Status NKA Active Immunizations Given and Recorded Vaccine Date Status Refusal Reason tetanus/diphtheria/pertussis, acel(Tdap) 12/27/18 Given Medications diltiazem 180 mg/24 hours oral capsule, extended release 180 mg, 1, capsule, By Mouth, Daily, # 30 capsule, Refills 11, Tot. Refills 11, Maintenance, 01/09/20 10:49:00 EST, Route to Pharmacy Electronically, [facility]/pharmacy #[id number], 193, cm, 05/14/19 10:06:00 EDT, Height, 125, kg, 12/12/18 13:42:00 EDT, Dry Weight Start Date: 01/09/20 Stop Date: 01/03/21 Status: Ordered ibuprofen 600 mg oral tablet 600 mg, 1, tablet, By Mouth, Every 8 hours, PRN, # 30 tablet, Refills 0, Tot. Refills 0, Acute 04/28/20 13:19:00 EST, Pain , Moderate, 03/31/20 13:19:00 EST, Route to Pharmacy Electronically, [facility]/pharmacy #[id number], Partial fill upon patient request if th... Start Date: 03/31/20 Stop Date: 04/28/20 Status: Ordered omeprazole 20 mg oral enteric coated capsule 1 capsule = 20 mg, By Mouth, 2 times a day, before a meal, # 60 capsule, 2 Refills, Maintenance, 01/09/20 10:42:00 EST, EC Capsule, [facility]/pharmacy #[id number], 193, cm, 05/14/19 10:06:00 [...] inical Service Informant Cluster headache Discharge Diagnosis 03/31/20 Vital Signs Most recent to oldest [Reference Range]: 1 Height 193 cm (03/31/20 11:25 AM) Weight 127.27 kg (03/31/20 11:25 AM) Body Mass Index [18.5-24.99] 34.17 *>HHI* (03/31/20 11:25 AM) Social History Social History Type Response Smoking Status 10 or more cigarette s (1/2 pack or more)/day in last 30 days entered on: 01/12/19 Sex
--- OUTSIDE RECORDS SUMMARY | 2023-09-21 20:46 | XMS_ITS | Continuity of Care Document ---
Author Organization [facility] Adult Address [address] [place] [address]- Care Team Providers Care English Language Arts Teacher Name Role Phone Brandon MIRANDA, [facility] Primary Care Physician ( [phone] Encounter [facility] Date(s): 04/21/21 - 05/21/21 [facility] Adult [address] [place] [address]- Allergies, Adverse Reactions, Alerts No Known Allergies Immunizations Given and Recorded Vaccine Date Status Refusal Reason SARS-CoV-2 (COVID-19) mRNA BNT-162b2 vac 08/13/20 Recorded tetanus/diphtheria/pertussis, acel(Tdap) 12/27/18 Given tetanus-diphtheria toxoids (Td) 12/01/11 Recorded Medications atorvastatin 20 mg oral tablet 1 tablet = 20 mg, By Mouth, Daily, # 90 tablet, 3 Refills, Maintenance, 05/15/21 10:02:00 EDT, Tablet, [facility]acy #[id number], Partial fill upon patient request if the [...] 01/13/21 10:41:00 EST, Route to Pharmacy Electronically, [facility]/pharmacy #[id number], 193, cm, 01/13/21 10:15:00 EST, Height Start Date: 01/13/21 Stop Date: 01/08/22 Status: Ordered Emgality Prefilled Syringe 100 mg/mL subcutaneous solution = 300 mg, Subcutaneous Injection, Every 28 days, # 3 kit, 5 Refills, Maintenance, 05/05/21 11:56:00EST, Solution, [facility], Partial fill upon patient request [...] 02/23/21 11:18:00 EST, Route to Pharmacy Electronically, [facility]/pharmacy #[id number], Partial fill upon patient request if the prescription i... Start Date: 02/23/21 Status: Ordered losartan 50 mg oral tablet 50 mg, 1, tablet, By Mouth, Daily, # 30 tablet, Refills 3, Tot. Refills 3, Maintenance, 05/15/21 10:00:00 EDT, Route to Pharmacy Electronically, [facility]/pharmacy #[id number], Partial fill upon patient request if the prescription is for a schedule II opioid drug... Start Date: 05/15/21 Stop Date: 09/12/21 Status: Ordered metFORMIN 1000 mg oral tablet 1 tablet = 1,000 mg, By Mouth, 2 times a day, # 60 tablet, 5 Refills, Maintenance, 01/13/21 10:41:00 EST, Tablet, [facility]/pharmacy #[id number], Partial fill [...] mL, 0 Refills, Maintenance, 03/19/21 12:55:00 EST, [facility]/pharmacy #[id number], Partial fill upon patient request if the prescription is fo... Start Date: 03/19/21 Status: Ordered omeprazole 20 mg oral enteric coated capsule 1 capsule = 20 mg, By Mouth, Daily, before a meal, # 30 capsule, 11 Refills, Maintenance, 01/13/21 10:41:00 EST, EC Capsule, [facility]/pharmacy #[id number], 193, cm, 01/13/21 10:15:00 EST, Height Start Date: 01/13/21 Stop Date: 01/08/22 Status: Ordered SUMAtriptan 100 mg oral tablet 1 tablet = 100 mg, By Mouth, Daily, PRN for migraine headache, may repeat dose after 2 hours up to a maximum of 2, # 9 tablet, 0 Refills, Acute 02/08/23 16:46:00 EST, 05/05/21 16:45:00 EST, Tablet, [facility], 193, cm, 05/05/21 11:20:... Start [...]
--- OUTSIDE RECORDS SUMMARY | 2023-09-21 20:46 | XMS_ITS | Continuity of Care Document ---
Author Organization [facility] Address [address] [place] [address], [address] [place] [address]- Care Team Providers Care Terrazzo Layer Name Role Phone Brandon MIRANDA, Aubrey Primary Care Physician Encounter [facility] [place] Date(s): 12/15/21 - 12/22/21 [facility] [address] [place] [address], [address] [place], [place] [address] Attending Physician: Bang Jeronimo DO Allergies, [...] capsule, 1 Refills, Maintenance, 11/20/21 19:17:00 EDT, [facility]/pharmacy #[id number], 193, cm, 09/25/21 8:45:00 EDT, Height Start Date: 11/20/21 Stop Date: 05/19/22 Status: Ordered Emgality Prefilled Syringe 100 mg/mL subcutaneous solution = 300 mg, Subcutaneous Injection, Every 28 days, # 3 kit, 5 Refills, Maintenance, 05/05/21 11:56:00EST, Solution, [facility], Partial fill upon patient [...] 10/26/21 8:03:00 EDT, Route to Pharmacy Electronically, [facility] STORE [id number], 193, cm, 09/25/21 8:45:00 EDT, Height Start Date: 10/26/21 Stop Date: 11/25/21 Status: Ordered losartan 50 mg oral tablet 75 mg, 1.5, tablet, By Mouth, Daily, # 135 tablet, Refills 3, Tot. Refills 3, Maintenance, 12/30/2212:55:00 EDT, Route to Pharmacy Electronically, [facility]/pharmacy #[id number], Partial fill upon patient request if the prescription is for a schedule II opioid d... Start Date: 12/30/21 Stop Date: 12/25/22 Status: Ordered losartan 50 mg oral tablet 75 mg, 1.5, tablet, By Mouth, Daily, # 90 tablet, Refills 1, Tot. Refills 1, Hard Stop 12/30/21 13:55:00 EDT, 09/01/21 13:55:00 EDT, [id number] Partial fillupon patient request if the prescription is for a s... Start Date: 09/01/21 Stop Date: 12/30/21 Status: Ordered metFORMIN 1000 mg oral tablet 1 tablet = 1,000 mg, By Mouth, 2 times a day, # 60 tablet, 5 Refills, Maintenance, 01/13/21 10:41:00 EST, Tablet, [facility]/pharmacy #[id number], Partial fill upon patient request if the prescription is for a schedule II opioid drug., 193, cm, 01/13/21 10:15:00 E... Start Date: 01/13/21 Status: Ordered NuLYTELY with Flavor Packs oral powder for reconstitution See Instructions, Drink 240mL every 15-20 minutes until first half is gone. Repeat 6 hours prior toprocedure., # 4,000 mL, 0 Refills, Maintenance, 03/19/21 12:55:00 EST, [facility]/pharmacy #[id number], Partial fill upon patient request if [...] 02/08/23 16:46:00 EST, 05/05/21 16:45:00 EST, Tablet, [facility], 193, cm, 05/05/21 11:20:... [...] oldest [Reference Range]: 1 Height 193 cm (12/15/21 3:16 PM) Weight 106.7 kg (12/15/21 3:16 PM) Oxygen Saturation [94-100 %] 95 % (12/15/21 3:16 PM) Pulse Rate [55-90 bpm] 72 bpm (12/15/21 3:16 PM) Body Mass Index [18.5-24.99 kg/m2] 28.65 kg/m2 *H* (12/15/21 3:16 PM) Blood Pressure [90-138/55-84 mm Hg] 128/ 80mm Hg (12/15/21 3:16 PM) Respiratory Rate [16-30 br/min] 20 br/mi n (12/15/21 3:16 PM) Temperature [96.8-100.4 DegF] 98.6 DegF (12/15/21 3:16 PM) Mode of Delivery (Oxygen) Room air (12/15/21 3:16 PM) Blood pressure sites Arm, right (12/15/21 3:16 PM) Temperature Route Temporal (12/15/21 3:16 PM) Weight Obtained Via Standing scale (12/15/21 3:16 PM) Social History Social History Type Response Tobacco Use: 4 or less cigar ettes(less than 1/4 pack)/day in last 30 days. Interested in cessation: Yes. Other: 3-4 CIG/DAY FROM 1 PACK EVERY 2-3 DAYS X 30+ YEARS. Sex Patient Care team information Personnel Name: Aubrey Taylor MD Address: Address: [address] [place] [address] [address] [place], [place] [address]
--- OUTSIDE RECORDS SUMMARY | 2023-09-21 20:46 | XMS_ITS | Continuity of Care Document ---
Author Organization [facility] Address [address] [place] [address]- Care Team Providers Care Pmo Manager Name Role Phone Brandon MIRANDA, [facility] Primary Care Physician Encounter [facility] [place] Date(s): 03/19/21 - 04/18/21 [facility] [address] [place] [address]- Attending Physician: AdmAshley blackman Admitting Physician: AdmtrAshley Referring Physician: Admtr, Ar8 Allergies, Adverse Reactions, Alerts No Known Allergies Immunizations Given and Recorded Vaccine Date Status Refusal Reason SARS-CoV-2 (COVID-19) mRNA BNT-162b2 vac 08/13/20 Recorded tetanus/diphtheria/pertussis, acel(Tdap) 12/27/18 Given tetanus-diphtheria toxoids (Td) 12/01/11 Recorded Medications atorvastatin 20 mg oral tablet 1 tablet = 20 mg, By Mouth, Daily, # 30 tablet, 4 Refills, Maintenance, 01/13/21 10:36:00 EST, Tablet, [facility]/pharmacy #[id number], Partial fill upon patient [...] 02/04/21 16:26:00 EST, Route to Pharmacy Electronically, [facility]/pharmacy #[id number], Partial fill upon patient request if the prescriptio... Start Date: 02/04/21 Status: Ordered diltiazem 180 mg/24 hours oral capsule, extended release 180 mg, 1, capsule, By Mouth, Daily, for 30 days, # 30 capsule, Refills 11, Tot. Refills 11, Hard Stop 01/08/22 10:41:00 EST, 01/13/21 10:41:00 EST, Route to Pharmacy Electronically, [facility]/pharmacy #[id number], 193, cm, 01/13/21 10:15:00 [...] 02/23/21 11:18:00 EST, Route to Pharmacy Electronically, [facility]/pharmacy #[id number], Partial fill upon patient request if the prescription i... Start Date: 02/23/21 Status: Ordered ibuprofen 600 mg oral tablet 600 mg, 1, tablet, By Mouth, Every 8 hours, PRN, # 30 tablet, Refills 1, Tot. Refills 1, Maintenance, Pain , Moderate, 01/13/21 10:32:00 EST, Route to Pharmacy Electronically, [facility]/pharmacy #[id number], Partial fill upon patient [...] Maintenance, 01/13/21 10:41:00 EST, Tablet, [facility]/pharmacy #[id number], Partial fill upon patient [...] Refills, Maintenance, 03/19/21 12:55:00 EST, [facility]/pharmacy #[id number], Partial fill upon patient request if the prescription is fo... Start Date: 03/19/21 Status: Ordered omeprazole 20 mg oral enteric coated capsule 1 capsule = 20 mg, By Mouth, Daily, before a meal, # 30 capsule, 11 Refills, Maintenance, 01/13/21 10:41:00 EST, EC Capsule, [id number], 193, cm, 01/13/21 10:15:00 EST, [...]
--- OUTSIDE RECORDS SUMMARY | 2023-09-21 20:46 | XMS_ITS | Continuity of Care Document ---
Author Organization [facility] Adult Address [address] [place] [address]- Care Team Providers Care Children'S Minister Name Role Phone Brandon MIRANDA, [facility] Primary Care Physician Encounter [facility] [place] Date(s): 08/28/21 - 09/27/[address] [facility] [address] [place] [address]- Allergies, Adverse Reactions, Alerts No Known Allergies [...] 01/13/21 10:41:00 EST, Route to Pharmacy Electronically, [facility]/pharmacy #[id number], 193, cm, 01/13/21 10:15:00 EST, Height Start Date: 01/13/21 Stop Date: 01/08/22 Status: Ordered Emgality Prefilled Syringe 100 mg/mL subcutaneous solution = 300 mg, Subcutaneous Injection, Every 28 days, # 3 kit, 5 Refills, Maintenance, 05/05/21 11:56:00EST, Solution, [facility], Partial fill upon [...] 09/01/21 13:55:00 EDT, Route to Pharmacy Electronically, [facility]/pharmacy #[id number], Partial fill upon patient request if the prescription is for a schedule II opioid drug... Start Date: 09/01/21 Stop Date: 12/30/21 Status: Ordered metFORMIN 1000 mg oral tablet 1 tablet = 1,000 mg, By Mouth, 2 times a day, # 60 tablet, 5 Refills, Maintenance, 01/13/21 10:41:00 EST, Tablet, [facility]/pharmacy #[id number], Partial fill upon patient request if the prescription is for a schedule II opioid drug., 193, cm, 01/13/21 10:15:00 E... Start Date: 01/13/21 Status: Ordered NuLYTELY with Flavor Packs oral powder for reconstitution See Instructions, Drink 240mL every 15-20 minutes until first half is gone. Repeat 6 hours prior toprocedure., # 4,000 mL, 0 Refills, Maintenance, 03/19/21 12:55:00 EST, [facility]/pharmacy #[id number], Partial fill upon patient request if the prescription is fo... Start Date: 03/19/21 Status: Ordered omeprazole 20 mg oral enteric coated capsule 1 capsule = 20 mg, By Mouth, Daily, before a meal, # 30 capsule, 11 Refills, Maintenance, 01/13/21 10:41:00 EST, EC Capsule, [facility]/pharmacy #[id number], 193, cm, 01/13/21 10:15:00 EST, Height Start Date: 01/13/21 Stop Date: 01/08/22 Status: Ordered SUMAtriptan 100 mg oral tablet 1 tablet = 100 mg, By Mouth, Daily, PRN for migraine headache, may repeat dose after 2 hours up to a maximum of 2, # 9 tablet, 0 Refills, Acute 02/08/23 16:46:00 EST, 05/05/21 16:45:00 EST, Tablet, [facility], 193, cm, 05/05/21 [...]
--- OUTSIDE RECORDS SUMMARY | 2023-09-21 20:46 | XMS_ITS | Continuity of Care Document ---
Author Organization [facility] Address [address] [place] [address]- Care Team Providers Care Airplane Navigator Name Role Phone Brandon MIRANDA, [facility] Primary Care Physician ( [phone] [place] [facility] [place](s): 11/19/20 - 12/19/20 [facility] [address] [place] [address]- Allergies, Adverse Reactions, Alerts Substance Reaction Severity Status NKA Active Immunizations Given and Recorded Vaccine Date Status Refusal Reason tetanus/diphtheria/pertussis, acel(Tdap) 12/27/18 Given tetanus-diphtheria toxoids (Td) 12/01/11 Recorded Medications diltiazem 180 mg/24 hours oral capsule, extended release 180 mg, 1, capsule, By Mouth, Daily, # 30 capsule, Refills 11, Tot. Refills 11, Maintenance, 07/18/20 10:07:00 EDT, Route to Pharmacy Electronically, [facility]/pharmacy #[id number], 193, cm, 07/18/20 9:23:00 EDT, Height, [...] 12/02/20 13:02:00 EDT, Route to Pharmacy Electronically, [facility]/pharmacy #[id number], Partial fill upon patient request if the prescription i... Start Date: 12/02/20 Status: Ordered losartan 25 mg oral tablet 25 mg, 1, tablet, By Mouth, Daily, # 30 tablet, Refills 6, Tot. Refills 6, Maintenance, 07/18/20 10:06:00 EDT, Route to Pharmacy Electronically, [facility]/pharmacy #[id number], Partial fill upon patient request if the prescription is for a schedule II opioid drug... Start Date: 07/18/20 Stop Date: 02/13/21 Status: Ordered metFORMIN 1000 mg oral tablet 1 tablet = 1,000 mg, By Mouth, 2 times a day, # 60 tablet, 5 Refills, Maintenance, 12/02/20 13:01:00 EDT, Tablet, [facility]/pharmacy #[id number], Partial fill upon patient request if the prescription is for a schedule II opioid drug., 193, cm, 12/02/20 12:59:00 E... Start Date: 12/02/20 Status: Ordered omeprazole 20 mg oral enteric coated capsule 1 capsule = 20 mg, By Mouth, Daily, before a meal, # 30 capsule, 11 Refills, Maintenance, 07/22/20 9:34:00 EDT, EC Capsule, [facility]/pharmacy #[id number], 193, cm, 07/18/20 10:08:00 EDT, Height, [...]
--- OUTSIDE RECORDS SUMMARY | 2023-09-21 20:46 | XMS_ITS | Continuity of Care Document ---
Author Organization [facility] Address [address] [place] [address]- Care Team Providers Care Special Officer Automat Name Role Phone Aubrey Taylor MD Primary Care Physician ( [phone] Encounter [facility] [place] Date(s): 05/16/19 - 10/19/[address] [address]- [facility] Attending Physician: Pierre Hicks MD Admitting Physician: Pierre Hicks MD Allergies, Adverse Reactions, Alerts Substance Reaction Severity Status NKA Active Immunizations Given and Recorded Vaccine Date Status Refusal Reason tetanus/diphtheria/pertussis, acel(Tdap) 12/27/18 Given Medications DilTIAZem Hydrochloride ER 180 mg/24 hours oral capsule, extended release See Instructions, # 30 capsule, Refills 5 Tot. Refills 5, TAKE 1 CAPSULE BY MOUTH EVERY DAY, [id number] Start Date: 12/18/18 Status: Ordered nicotine 14 mg/24 hr transdermal film, extended release 1 patch, Topically, Daily, # 28 patch, 0 Refills, Acute, 08/15/19 9:04:00 EDT, [id number], 28,APPLY 1 PATCH TOPICALLY DAILY, 193, cm, [...]
--- OUTSIDE RECORDS SUMMARY | 2023-09-21 20:46 | XMS_ITS | Continuity of Care Document ---
Author Organization [facility] Adult Address [address] [place] [address]- Care Team Providers Care Stacker Name Role Phone Brandon MIRANDA, [facility] Primary Care Physician ( [phone] Encounter [facility] [place] Date(s): 02/09/21 - 03/11/21 [facility] [address] [place] [address]- Allergies, Adverse Reactions, Alerts Substance Reaction Severity Status NKA Active Immunizations Given and Recorded Vaccine Date Status Refusal Reason SARS-CoV-2 (COVID-19) mRNA BNT-162b2 vac 08/13/20 Recorded tetanus/diphtheria/pertussis, acel(Tdap) 12/27/18 Given tetanus-diphtheria toxoids (Td) 12/01/11 Recorded Medications atorvastatin 20 mg oral tablet 1 tablet = 20 mg, By Mouth, Daily, # 30 tablet, 4 Refills, Maintenance, 01/13/21 10:36:00 EST, Tablet, [facility]/pharmacy #[id number], Partial fill upon [...] 02/04/21 16:26:00 EST, Route to Pharmacy Electronically, [facility]/pharmacy #[id number], Partial fill upon patient request if the prescriptio... Start Date: 02/04/21 Status: Ordered diltiazem 180 mg/24 hours oral capsule, extended release 180 mg, 1, capsule, By Mouth, Daily, for 30 days, # 30 capsule, Refills 11, Tot. Refills 11, Hard Stop 01/08/22 10:41:00 EST, 01/13/21 10:41:00 EST, Route to Pharmacy Electronically, [facility]/pharmacy #[id number], 193, cm, 01/13/21 10:15:00 EST, [...] 02/23/21 11:18:00 EST, Route to Pharmacy Electronically, [facility]/pharmacy #[id number], Partial fill upon patient request if the prescription i... Start Date: 02/23/21 Status: Ordered ibuprofen 600 mg oral tablet 600 mg, 1, tablet, By Mouth, Every 8 hours, PRN, # 30 tablet, Refills 1, Tot. Refills 1, Maintenance, Pain , Moderate, 01/13/21 10:32:00 EST, Route to Pharmacy Electronically, [facility]/pharmacy #[id number], Partial fill upon [...] 5 Refills, Maintenance, 01/13/21 10:41:00 EST, Tablet, [facility]/pharmacy #[id number], Partial fill upon patient request if the prescription is for a schedule II opioid drug., 193, cm, 01/13/21 10:15:00 E... Start Date: 01/13/21 Status: Ordered omeprazole 20 mg oral enteric coated capsule 1 capsule = 20 mg, By Mouth, Daily, before a meal, # 30 capsule, 11 Refills, Maintenance, 01/13/21 10:41:00 EST, EC Capsule, [facility]/pharmacy #[id number], 193, cm, 01/13/21 10:15:00 EST, [...]
--- OUTSIDE RECORDS SUMMARY | 2023-09-21 20:46 | XMS_ITS | Continuity of Care Document ---
Author Organization [facility] ter Address [address] [place] [id number]- Care Team Providers Care Wad Lubricator Name Role Phone Brandon MIRANDA, Aubrey Primary Care Physician ( [phone] Encounter [facility] Date(s): 05/05/22 - 05/10/[address] [address]- Encounter Diagnosis Acute respiratory failure with hypoxemia(Final) - 05/05/22 Discharge Disposition: A-D/C Home Attending Physician: Ghulam Chaudhari MD Admitting Physician: Chad Quach MD Referring Physician: Not on Staff, Referring MD Allergies, Adverse Reactions, Alerts No Known [...] tablet, 3 Refills, Maintenance, 03/16/22 12:18:00 EST, [id number], 193, cm, 03/12/22 10:49:00 EST, Height, 107, kg, 02/16/22 11:18:00 EST, Dry Weight Start Date: 03/16/22 Status: Ordered Augmentin 875 mg-125 mg oral tablet 1 tablet, By Mouth, Every 12 hours, for 5 days, # 10 tablet, 0 Refills, Acute 05/15/22 9:51:00 EDT,05/10/22 9:51:00 EDT, Tablet, [facility] #[id number], Partial fill upon patient request if the prescription is for a schedule II opioid drug., 175, cm, ... Start Date: 05/10/22 Stop Date: 05/15/22 Status: Ordered dabrafenib 75 mg oral capsule [...] Maintenance, :52:00 EDT, Route to Pharmacy Electronically, [facility] #[id number], Partial fill upon patient request if the prescription is for a schedule II opioid drGeeta. Start Date: 05/10/22 Stop Date: 06/09/22 Status: Ordered diltiazem 120 mg/24 hours oral capsule, extended release 120 mg, CD Capsule, By Mouth, 05/10/22 9:00:00 EDT Start Date: 05/10/22 Stop Date: 05/10/22 Status: Completed Freestyle Lancets See Instructions, # 100 each, [...] EDT, Supply Start Date: 07/18/20 Status: Ordered metFORMIN 1000 mg oral tablet 1 tablet, By Mouth, 2 times a day, # 60 tablet, 5 Refills, Maintenance, 01/13/22 9:33:00 EST, [id number], 193, cm, 01/01/22 9:25:00 EDT, Height, 110.2, kg, 01/01/22 9:25:00 EDT, Dry Weight Start Date: 01/13/22 Status: Ordered omeprazole 20 mg oral enteric coated capsule See Instructions, TAKE 1 CAPSULE BY MOUTH DAILY BEFORE A MEAL X30 DAYS, # 90 capsule, 1 Refills, Maintenance, 11/20/21 19:18:00 EDT, [id number], PATIENT NEEDS TO CALL OFFICE FOR APPOINTMENT, 193, cm, 09/25/21 8:45:00 EDT, Height Start Date: 11/20/21 Status: Ordered trametinib 2 mg oral tablet [...] Active 1repeat screening colonoscopy in 2024 Results Orders for Microbiology Reports Name Date Blood Culture 05/08/22 Blood Culture #2 05/08/22 Blood Culture 05/06/22 Blood Culture #2 05/06/22 Blood Culture 05/05/22 Blood Culture #2 05/05/22 Microbiology Reports TEST:Blood Culture, Second Order STATUS:Unauthenticated BODY SITE: SOURCE:Blood COLLECTED DATE/TIME:05/08/22 1:16 AM Blood Culture, Second Order SPECIMEN DESCRIPTION : BLOOD L HAND SPECIAL REQUESTS : NONE CULTURE : NO GROWTH AFTER 48 HOURS REPORT STATUS : PRELIMINARY REPORT TEST:Blood Culture STATUS:Unauthenticated BODY SITE: SOURCE:Blood COLLECTED DATE/TIME:05/08/22 12:58 AM Blood Culture SPECIMEN DESCRIPTION : BLOOD LEFT ARM SPECIAL REQUESTS : NONE CULTURE : NO GROWTH AFTER 48 HOURS REPORT STATUS : PRELIMINARY REPORT TEST:Blood Culture STATUS:Auth (Verified) BODY SITE: SOURCE:Blood COLLECTED DATE/TIME:05/06/22 12:24 PM Blood Culture SPECIMEN DESCRIPTION : BLOOD SPECIAL REQUESTS : CRITICAL VALUE CALLED AND VERIFIED BY READBACK FOR: GRAM POS RODS TO S1, EN [id number] AT 2136 ON 05/07 BY [id number] CULTURE : STAPHYLOCOCCUS EPIDERMIDIS SUSCEPTIBILITY TESTING NOT ROUTINELY PERFORMED ON THIS ISOLATE. Single isolates of coagulase negative Staphylococcus, Micrococcus sp., Bacillus sp., Corynebacterium sp. (or Diptheroids), Cutibacterium (formerly Propionibacterium) acnes and Viridans group streptococci could be skin contaminates. Multiple isolates of these organisms are more likely to be significant. Staphylococcus epidermidis was identified by multi-plex PCR REPORT STATUS : FINAL 05/09/2022 TEST:Blood Culture, Second Order STATUS:Unauthenticated BODY SITE: SOURCE:Blood COLLECTED DATE/TIME:05/06/22 12:24 PM Blood Culture, Second Order SPECIMEN DESCRIPTION : BLOOD NO SITE GIVEN SPECIAL REQUESTS : NONE CULTURE : NO GROWTH 4 DAYS REPORT STATUS : PRELIMINARY REPORT TEST:Blood Culture, Second Order STATUS:Auth (Verified) BODY SITE: SOURCE:Blood COLLECTED DATE/TIME:05/05/22 4:51 PM Blood Culture, Second Order SPECIMEN DESCRIPTION : BLOOD L HAND SPECIAL REQUESTS : NONE CULTURE : NO GROWTH 5 DAYS. REPORT STATUS : FINAL 05/10/2022 TEST:Blood Culture STATUS:Auth (Verified) BODY SITE: SOURCE:Blood COLLECTED DATE/TIME:05/05/22 4:13 PM Blood Culture SPECIMEN DESCRIPTION : BLOOD R HAND SPECIAL REQUESTS : NONE CULTURE : NO GROWTH 5 DAYS. REPORT STATUS : FINAL 05/10/2022 Radiology Reports * Exam Date Time Procedure Performing Provider Status 05/07/22 5:58 PM Chest Portable Geraldine Woodard; Auth ( Verified) Notes: (Chest Portable) Reason For Exam: COPD RESULT: Chest Portable Chest Portable Reason: COPD; : COMPARISON: May 05, 2022 FINDINGS: LINES AND TUBES: None. LUNGS AND PLEURA: Worsening patchy right basilar airspace disease and linear atelectasis in the left lower lobe. Trace right pleural effusion. No pneumothorax. HEART, MEDIASTINUM AND ANN: Heart is normal in size. Normal mediastinal and hilar contour. BONES AND SOFT TISSUES: No acute abnormality. IMPRESSION: Right lower lobe atelectasis/infiltrate. Streaky subsegmental atelectasis in the left lower lobe. WSN: [id number] Ordering Physician: Krystal Li Dictated By: Willam Mckeon MD Dictated Date/Time: 05/07/22 6:12 pm Reviewed By: Willam Mckeon MD Signed By: Willam Mckeon MD Signed Date/Time: 05/07/22 6:12 pm Transcribed By: CHRISTINA Transcribed Date/Time: 05/07/22 6:10 pm * Exam Date Time Procedure Performing Provider Status 05/05/22 6:[address] Soft Tissue Neck W/ Contrast Sima Lomas; Modified Notes: (CT Soft Tissue Neck W/ Contrast) Reason For Exam: Abscess/Inflammation RESULT: CT Soft Tissue Neck W/ Contrast CT Soft Tissue Neck W/ Contrast INDICATION/CLINICAL QUESTION: Hx of Present Illness: patient coming from home with 1 day fevers, vomiting, and worsening SOB. pt reports baseline SOB 2 2 chemo tx. on oral chemo - last taken 3 8; Reason: Abscess Inflammation; Clinical Question(s): Abscess; Order Comment: / Abscess. TECHNIQUE: Spiral CT neck with IV contrast formatted in 3 planes. cc of was administered intravenously. Weight-based protocol using automatic tube modulation was used to optimize exposure parameters. COMPARISON: FINDINGS: Field Investigator View Findings, Lines and Tubes: None. Intracranial structures: Visualized portions are unremarkable. Orbits: Visualized portions are unremarkable. Paranasal sinuses and mastoids: Visualized portions are clear. Mucosal surfaces: Mucosal surfaces appear normal and symmetric, including the pharynx, larynx, and visualized portions of the upper trachea and esophagus. Superficial and deep neck spaces: No mass, fluid collection, or inflammatory change. Cervical lymph nodes: Normal in size and morphology. Salivary glands: The parotid glands and submandibular glands are normal. Thyroid gland: Normal CT appearance Vascular structures: Unremarkable. Upper chest: The upper lungs are clear. The upper mediastinum is unremarkable. Bones and teeth: No acute abnormalities. IMPRESSION: Unremarkable neck CT. WSN: [id number] Ordering Physician: Garry Denton Dictated By: Carlos Alberto Yuan MD Dictated Date/Time: 05/05/22 9:36 pm Reviewed By: Carlos Alberto Yuan MD Signed By: Carlos Alberto Yuan MD Signed Date/Time: 05/05/22 9:36 pm Transcribed By: CHRISTINA Transcribed Date/Time: 05/05/22 9:33 pm ADDENDUM: CT Soft Tissue Neck W/ Contrast Addendum: CT Soft Tissue Neck W/ Contrast INDICATION/CLINICAL QUESTION: Hx of Present Illness: patient coming from home with 1 day fevers, vomiting, and worsening SOB. Pt reports baseline SOB 2 2 chemo txt. On oral chemo - last taken 3 8; Reason: Abscess Inflammation; Clinical Question(s): Abscess; Order Comment: / Abscess. TECHNIQUE: Spiral CT neck with IV contrast formatted in 3 planes. 100 cc of Omnipaque 300 was administered intravenously. Weight-based protocol using automatic tube modulation was used to optimize exposure parameters. Total DLP 434.86 COMPARISON: None FINDINGS: Field Investigator View Findings, Lines and Tubes: None. Intracranial structures: Visualized portions are unremarkable. Orbits: Visualized portions are unremarkable. Paranasal sinuses and mastoids: Visualized portions are clear. Mucosal surfaces: Mucosal surfaces appear normal and symmetric, including the pharynx, larynx, and visualized portions of the upper trachea and esophagus. Superficial and deep neck spaces: No mass, fluid collection, or inflammatory change. Cervical lymph nodes: Normal in size and morphology. Salivary glands: The right parotid gland is larger than the left with slightly increased enhancement and adjacent stranding. Bilateral submandibular glands are unremarkable. Thyroid gland: Normal CT appearance Vascular structures: Unremarkable. Upper chest: The upper lungs are clear. The upper mediastinum is unremarkable. Bones and teeth: No acute abnormalities. IMPRESSION: Likely mild right parotitis. No abscess formation. WSN: [id number] Ordering Physician: Garry Denton Dictated By: Tam Partida MD Dictated Date/Time: 05/05/22 9:46 pm Reviewed By: Tam Partida MD Signed By: Tam Partida MD Signed Date/Time: 05/05/22 9:46 pm Transcribed By: CHRISTINA Transcribed Date/Time: 05/05/22 9:40 pm * Exam Date Time Procedure Performing Provider Status 05/05/22 6:[address] Angio Chest Sima Peguero; Amina [facility] (Verified) Notes: (CT Angio Chest) Reason For Exam: PE suspected, Intermediate prob, positive D-dimer,;Other: RESULT: CT Angio Chest EXAMINATION: CT Angio Chest INDICATION: Hx of Present Illness: patient coming from home with 1 day fevers, vomiting, and worsening SOB. pt reports baseline SOB 2 2 chemo tx. on oral chemo - last taken 3 8; Reason: Other:; PE suspected, Intermediate prob, positive D- dimer,; Clinical Question(s): Pulmonary Embolism TECHNIQUE: Spiral CTA of the chest was performed after rapid IV contrast administration without cardiac gating, triggered by an NITIN on the main pulmonary artery. Images are formatted in multiple planes using 2-D multiplanar and 3-D maximum intensity projection. 100 cc of Omnipaque 300 was administered intravenously. Weight-based protocol using automatic tube modulation was used to optimize exposure parameters. CTDIvol Body: 10.90 mGy, DLP Body: 839 mGy*cm. COMPARISONS: 11/16/2021. ANGIOGRAPHIC FINDINGS: No pulmonary embolism to the subsegmental level. Normal caliber pulmonary arteries. No acute aortic abnormality seen on this study performed without cardiac gating. NON-ANGIOGRAPHIC FINDINGS: Field Investigator View Findings, Lines and Tubes: None. Trachea and Airways: Patent without evidence of tracheal or endobronchial lesion. Lungs and Pleura: Bibasilar atelectasis. No effusion or pneumothorax. Mediastinum and ann: No mass or hematoma. No mediastinal or hilar lymphadenopathy. No esophageal abnormality. Heart: Heart is normal in size. No pericardial effusion. Chest Wall Soft Tissues: Normal. Diaphragm and upper abdomen: No significant abnormality. Bones: No acute abnormality. IMPRESSION: No evidence of pulmonary embolism. Bibasilar atelectasis. WSN: [id number] Ordering Physician: Garry Denton Dictated By: Tam Partida MD Dictated Date/Time: 05/05/22 6:24 pm Reviewed By: Tam Partida MD Signed By: Tam Partida MD Signed Date/Time: 05/05/22 6:24 pm Transcribed By: CHRISTINA Transcribed Date/Time: 05/05/22 6:15 pm * Exam Date Time Procedure Performing Provider Status 05/05/22 4:45 PM Chest 2 Views Frontal and Lat Anjum Davis; Felicia (Verified) Notes: (Chest 2 Views Frontal and Lat) Reason For Exam: Shortness of Breath, Fever;Other: RESULT: Chest 2 Views Frontal and Lat Examination: Chest performed on 05/05/2022. History: Fever. Shortness of breath. Findings: Frontal and lateral views of the chest are compared to a prior study dated 12/10/2021. The cardiac and mediastinal silhouettes are within normal limits. The lungs are clear with the exception of scar at the left lung base. Mamillation of the right hemidiaphragm is seen. The osseous andsoft tissue structures are unremarkable. Impression: There is no acute cardiopulmonary disease. WSN: [id number] Ordering Physician: Garry Denton Dictated By: Hafsa Owens MD Dictated Date/Time: 05/05/22 4:53 pm Reviewed By: Hafsa Owens MD Signed By: Hafsa Owens MD Signed Date/Time: 05/05/22 4:53 pm Transcribed By: CHRISTINA Transcribed Date/Time: 05/05/22 4:52 pm Vital Signs Most recent to oldest [Reference Range]: 1 2 3 Height 175 cm (05/10/22 7:36 AM) 175 cm (05/10/22 3:32 AM) 175 cm (05/10/22 12:11 AM) Weight 115.4 kg (05/06/22 11:17 PM) 115.4 kg (05/06/22 11:09 PM) Oxygen Saturation [94-100 %] 90 % *L* (05/10/22 7:36 AM) 98 % (05/10/22 3:32 AM) 97 % (05/10/22 12:11 AM) Pulse Rate [55-90 bpm] 80 bpm (05/10/22 9:01 AM) 80 bpm (05/10/22 7:36 AM) 78 bpm (05/10/22 3:32 AM) Body Mass Index [18.5-24.99 kg/m2] 37.68 kg/m2 *>HHI* (05/06/22 11:09 PM) Blood Pressure [90-138/55-84 mm Hg] 113/74mm Hg (05/10/22 9:01 AM) 113/74mm Hg (05/10/22 7:36 AM) 125/79mm Hg (05/10/22 3:32 AM) Respiratory Rate [16-30 br/min] 16 br/min (05/10/22 7:36 AM) 17 br/min (05/10/22 3:32 AM) 22 br/min (05/10/22 12:11 AM) Temperature [96.8-100.4 DegF] 98.3 DegF (05/10/22 7:36 AM) 98.9 DegF (05/10/22 3:32 AM) 99.0 DegF (05/10/22 2:00 AM) Liters per Minute 4 L/min (05/10/22 3:32 AM) 4 L/min (05/10/22 12:11 AM) 3 L/min (05/09/22 10:00 PM) Mode of Delivery (Oxygen) Room air (05/10/22 7:36 AM) Nasal cannula (05/10/22 3:32 AM) Nasal cannula (05/10/22 12:11 AM) Blood pressure sites Arm, left (05/10/22 3:32 AM) Arm, left (05/10/22 12:11 AM) Arm, left (05/09/22 8:22 PM) Temperature Route Oral (05/10/22 3:32 AM) Oral (05/10/22 2:00 AM) Oral (05/10/22 12:11 AM) Dry Weight 115.4 kg (05/06/22 11:09 PM) Weight Obtained Via Bed scale (05/06/22 11:17 PM) Social History Social History Type Response Smoking Status Former smoker, quit more than 30 days ago; Other: 20 pack year hx; entered on: 05/06/22 Sex Admission evaluation note * Rick MIRANDA, Tyrell: PERFORM, MODIFY Event Display: Admission Note Authored Date: [id number] Patient: ??ABDIRAHMAN LEON ? Age:??57 Years?Sex:??Male?:??1965?? Chief Complaint/Reason for Consultation from home, fever x 1 day, T max 102.4, increased weakness. on oral chemo - last dose today. History of Present Illness 57 year old with a history of lung cancer, currently on Dabrafenib and Trametinib, diet controlled diabetes, and hypertension here in the setting of fever and increased shortness of breath, fevers, c/p, diarrhea and dysuria. On arrival saturating in low 90s. Found to have a neck mass on exam. CXR and CTA chest??chest with concern for bibasilar atelectasis but no other abnormalities. CT soft tissue Neck with concern for parotid enlargement on the right side with concern for parotitis. On arrival at the ED, patient with a heart rate of 102, blood pressure 150/93 saturating 96% on 2 Lnasal cannula.?Labs indicate chronic anemia with H&H 12.5/40.4, glucose of 135, anion gap of14. ??Urinalysis indicating [place] gravity greater than 1.05, trace albumin, slight bacteria. On my evaluation, patient lying in bed not in acute distress. ??He notes a fever of 102 when measured at home prior to coming in. ??Patient took all of his medications including his chemotherapy thismorning before calling oncology triage who recommended not taking chemotherapy medications until active infection is resolved, and also recommended admission to the ED. ??Patient notes that he incidentally noted the neck mass in the near after waking up today. ??He does not remember noticing it previously. ??He denies any discomfort due to the mass except for slight pressure on palpation. Other than fever and chills, patient reports a cough and difficulty breathing all of which started together one day ago. ??He does not note the cough to be exceedingly productive. ?? Review of Systems Constitutional:??No weight loss. (+)??fever,?? fatigue. Allergy/Immune: Denies any??Eczema or hives Eyes:??No visual loss, blurred vision, double vision or yellow sclera ENT:??No hearing loss, sneezing, congestion, runny nose or sore throat. Respiratory:??No shortness of breath, cough or sputum production. Cardiovascular:??No chest pain, chest pressure or chest discomfort. No palpitations or pedal edema. Gastrointestinal:??No anorexia, nausea, vomiting or diarrhea. No abdominal pain or blood in stool. Genitourinary:??No burning micturition. No urinary frequency or incontinence. Neurologic:??No headache, dizziness, syncope, unilateral weakness, ataxia, numbness or tingling in the extremities. No change in bowel or bladder control. Musculoskeletal:??No muscle pain, back pain, joint pain or stiffness. Hematologic/Lymphatics:??No bleeding or bruising. No painful lymph nodes. Skin:??No rash or itching. Endocrine:??No reports of sweating. No cold or heat intolerance. No polyuria or polydipsia. Psychiatric:??No depression or anxiety. Objective Vital Signs?? Temperature: 98.8 DegF (05/05/22 23:44:00) Temperature Route: Oral (05/05/22 23:44:00) Pulse Rate:??93 bpm??High (05/06/22 02:56:00) Respiratory Rate: 26 br/min (05/06/22 02:56:00) Systolic Blood Pressure:??142 mm Hg??High (05/06/22 02:56:00) Diastolic Blood Pressure: 80 mm Hg (05/06/22 02:56:00) Blood pressure sites: Arm, left (05/06/22 02:56:00) Mean Arterial Pressure: 106 mm Hg (05/05/22 18:14:00) Pulse Pressure: 62 mm Hg (05/06/22 02:56:00) Oxygen Saturation: 97 % (05/06/22 02:56:00) Liters per Minute: 2 L/min (05/06/22 02:56:00) Mode of Delivery (Oxygen): Nasal cannula (05/06/22 02:56:00) Early Warning Score: 2 (05/06/22 02:56:58) ? Intake/Output? No Data Available ? Physical Exam Gen ?awake, alert, oriented to self, location, date, and situation? HEENT?NCAT, conjunctivae clear, nasopharynx without congestion or erythema, MMM Neck ?supple, no thyromegaly noted? Cardiac ?no JVD. RRR, no murmurs, rubs, or gallops noted.? Pulmonary ?lungs CTAB with good air entry?in apices. Poor air movement with??bibasilar R >L with dullnes to percussion in the right lower lobe.? GI/Abdomen ?soft, NT, ND, good bowel sounds. no HSM or masses noted.? /rectal ?deferred? MSK/Ext ?no cyanosis, clubbing, or edema. good perfusion.?, ??no joint swelling or erythema noted.? Derm ?no new rashes noted? Lymph ?no cervical, supraclavicular LAD noted.? Neuro ?PERRL. Assessment/Plan 57 year old with a history of lung cancer, currently on Dabrafenib and Trametinib, diet controlled diabetes, and hypertension her efor concern of community acquired pneumonia and parotitis ?? #Acute hypoxic respiratory failure ?Community acquired pneumonia in immunocompromised patient Parotitis in immunocompromised patient Bilateral atelectasis COPD Status: Patient here with concern for both community-acquired pneumonia and acute parotitis. ??Could be due to the same pathogen or different etiologies. ??Patient is immunocompromise due to active chemotherapy and hence needs broad- spectrum antibiotics for coverage at this time. ??Acute on chronichypoxic respiratory failure could be due to As well as bilateral atelectasis. Unlikely Chemotherapy??caused lung injury. No acute COPD exacerbation Plan:- -Vancomycin IVPB for 10 days. ??MRSA PCR swab and culture to check for colonization. ??If negative can discontinue vancomycin. -Zosyn IVPB for 10 days. -Azithromycin 500 mg for??3 days total -Follow-up blood cultures x2 to narrow Abx regimen -If possible to express pus or other fluid from right neck mass through massage, will send for culture. - If worsening status after 48 hrs on Abx, needs ID consult and biopsy of parotid gland for cultures - Trend fever curve and WBC count - F/U Urine legionella and serum mycoplasma IGM levels - Incentive spirometer -CPT with acapella - Breo + Spiriva daily. PRN duonebs #NSCLC metastatic with BRAF mutation Status: Patient took last dose on 05/05/22 at home. Plan: - Hold home Trametinib and Dabrafenib ? Stable chronic problems: 1) Type II Diabetes:hold home metformin and start S/S lispro with POC glucose 3 times daily and bedtime with hypoglycemia emergency measures 2) Cluster headaches: No acute concerns. patient not taking Sumatriptan or Emgality or prochlorperazine??at home according to him. Will hold here. 3) HTN: Continue home losartan, diltiazem 4) HLD: Continue home statin 5) Other medications: Patient taking Aspirin for unknown indication. Will benefit from PCP discussion about continuing. Continuing while here. ?? Code: FULL Diet: Diabetic with 2gm sodium restriction DVT prophy: Enoxaparin ?? Histories Allergies Allergies ?(Active and Proposed Allergies Only) NKA? (Severity: Unknown severity, Onset: Unknown) ? Past Medical History/Problem List Active Problems??(8) Cluster headache Diabetes Elevated cholesterol with high triglycerides GERD (gastroesophageal reflux disease) HTN (hypertension) Hyperlipidemia Tobacco use Tubular adenoma of colon ? Past Surgical History Colonoscopy: 04/22/21 Colonoscopy: 05/14/19 Colonoscopy: 2017 ? Social History Alcohol Details:??Use: Past. ??Frequency: 1-2 times per month. Exercise Details:??Self assessment: Poor condition. Home/Environment Details:??Living situation: Home/Independent. ??Lives with: Significant other. Nutrition/Health Details:??Diet: Regular. Sexual Details:??Sexually involved in last 6 months: Yes. Substance Abuse Details:??Use: Never. Tobacco Details:??Use: Former smoker, quit more than 30 days ago. ??Other: 20 pack year hx. Electronic Cigarette/Vaping Details:??Electronic Cigarette Use: Never. ? Family History Mother: Heart attack; Hypertension; Type II diabetes mellitus ? Medications Home Medications Aspirin (aspirin 81 mg oral delayed release tablet)?81?Milligram?1?tablet?By Mouth?Daily Atorvastatin (atorvastatin 20 mg oral tablet)?1?tab(s)?By Mouth?Daily Azithromycin (Azithromycin 5 Day Dose Pack 250 mg oral tablet)?1?pack/packet?By Mouth?Once?as directed on package labeling dabrafenib (dabrafenib 75 mg oral capsule)?2?capsule?150?Milligram?By Mouth?2 times a day Diltiazem (DilTIAZem (Eqv-Cardizem CD) 180 mg/24 hours oral capsule, extended release)?1?capsule?By Mouth?Daily?for 90?Days?PATIENT NEEDS OFFICE APPOINTMENT 11/20/21 Durable Medical Equipment (Home Blood Pressure Monitor)?See Instructions?Large blood pressurecuff Durable Medical Equipment (Freestyle Lite Monitor)?See Instructions?Check glucose once daily or as directed by physician Durable Medical Equipment (Freestyle Test Strips)?See Instructions?Use to check glucose once daily or as directed by physician Durable Medical Equipment (Freestyle Lancets)?See Instructions?Use to check glucose once daily or as instructed by phsician galcanezumab (Emgality Prefilled Syringe 100 mg/mL subcutaneous solution)?300?Milligram?Subcutaneous Injection?Every 28 days Ibuprofen (ibuprofen 600 mg oral tablet)?1?tablet?By Mouth?Every 8 hours?as needed?for 30?Days? NEEDED FOR MODERATE PAIN FOR Loperamide (loperamide 2 mg oral capsule)?4?Milligram?2?capsule?By Mouth?Every 4 hours?not to exceed 8 capsules, or 16 mg, in 24 hoursafter each loose stool Losartan (losartan 50 mg oral tablet)?1?tab(s)?By Mouth?Daily Metformin (metFORMIN 1000 mg oral tablet)?1?tab(s)?By Mouth?2 times a day Miscellaneous Rx (FREESTYLE LITE TEST STRIP)?See Instructions?USE TO CHECK GLUCOSE ONCE DAILYOR DIRECTED BY PHYSICIAN Omeprazole (omeprazole 20 mg oral enteric coated capsule)?See Instructions?TAKE 1 CAPSULE BY MOUTH DAILY BEFORE A MEAL X30 DAYS PEG Electrolyte Solution (NuLYTELY with Flavor Packs oral powder for reconstitution)?See Instructions?Drink 240mL every 15-20 minutes until first half is gone. ??Repeat 6 hours prior to procedure. PROCHLORperazine (prochlorperazine 5 mg oral tablet)?1?tab(s)?5?Milligram?By Mouth?Every 6 hours?as needed?Nausea & Vomiting?may cause drowsiness Sumatriptan (SUMAtriptan 100 mg oral tablet)?1?tab(s)?100?Milligram?By Mouth?Daily?as needed?for migraine headache?may repeat dose after 2 hours up to a maximum of 2 trametinib (trametinib 2 mg oral tablet)?1?tab(s)?2?Milligram?By Mouth?Daily?At least one hour before or two hours after a meal ? Inpatient Medications Medications (14) Active SCHEDULED: (9) Aspirin 81 mg EC Tablet (aspirin 81 mg oral delayed release tablet) ??81 mg, By Mouth, Daily Atorvastatin 20 mg Tablet (atorvastatin 20 mg oral tablet) ??20 mg, By Mouth, Daily Azithromycin 500 mg Tablet (Azithromycin Tablet) ??500 mg, By Mouth, Daily Diltiazem 30 mg Tablet (diltiazem 30 mg oral tablet) ??30 mg, By Mouth, Every 6 hours Insulin Lispro 100 units/mL Inj (3mL) (Insulin LISPRO Sliding Scale) ??2-10 units, Subcutaneous Injection, 3 times a day before meals Losartan 50 mg Tablet (losartan 50 mg oral tablet) ??50 mg, By Mouth, Daily Pantoprazole 20 mg EC Tablet (pantoprazole 20 mg oral delayed release tablet) ??20 mg, By Mouth, Daily Piperacillin/Tazobactam 3.375 Gm Inj (Zosyn Extended IVPB) ??3.375 Gm, IVPB, Every 8 hours Vancomycin 1500 mg Inj (Vancomycin IVPB) ??1,500 mg, IVPB, Every 12 hours CONTINUOUS: (0) PRN: (5) Dextrose Inj Syringe (Dextrose 50% Inj Syringe (25Gm)) ??12.5 Gm, IV Push Slowly, Every 20 minutes Dextrose Inj Syringe (Dextrose 50% Inj Syringe (25Gm)) ??25 Gm, IV Push Slowly, Every 15 minutes Glucagon 1 mg Inj (Glucagon Inj) ??1 mg, Intramuscular, Once Glucose 40% Gel (15 Gm) (Glucose Gel) ??15 Gm, By Mouth, Every 20 minutes Glucose 40% Gel (15 Gm) (Glucose Gel) ??30 Gm, By Mouth, Every 20 minutes ? Results Recent Labs BLOOD COUNT & DIFF WBC 7.5 k/mm3 ()?? 05/05/2022 16:13 RBC 4.67 m/mm3 (Low)?? 05/05/2022 16:13 Hgb 12.5 Gm/dL (Low)?? 05/05/2022 16:13 Hct 40.4 % (Low)?? 05/05/2022 16:13 MCV 86.5 femtoliters ()?? 05/05/2022 16:13 MCH 26.8 pg (Low)?? 05/05/2022 16:13 MCHC 30.9 g/dL (Low)?? 05/05/2022 16:13 Platelet Count 336 k/mm3 ()?? 05/05/2022 16:13 RDW-SD 42.8 femtoliters ()?? 05/05/2022 16:13 MPV 9.6 femtoliters ()?? 05/05/2022 16:13 Nucleated RBC (Automated) 0.0 #/100 WBC'S ()?? 05/05/2022 16:13 Abs. NRBC 0.0 k/mm3 ()?? 05/05/2022 16:13 Abs. Neut 4.9 k/mm3 ()?? 05/05/2022 16:13 Abs. Lymph 2.1 k/mm3 ()?? 05/05/2022 16:13 Abs. [place] 0.6 k/mm3 ()?? 05/05/2022 16:13 Abs. Eo 0.0 k/mm3 ()?? 05/05/2022 16:13 Abs. Baso 0.0 k/mm3 ()?? 05/05/2022 16:13 Neut % 64.7 % ()?? 05/05/2022 16:13 Lymph % 27.3 % ()?? 05/05/2022 16:13 [place] % 7.5 % ()?? 05/05/2022 16:13 Eos % 0.1 % ()?? 05/05/2022 16:13 Baso % 0.1 % ()?? 05/05/2022 16:13 Imm Gran 0.3 % ()?? 05/05/2022 16:13 Abs. Imm Gran 0.0 k/mm3 ()?? 05/05/2022 16:13 ?? CHEM GENERAL Sodium 137 mmol/L ()?? 05/05/2022 16:13 Potassium 4.3 mmol/L ()?? 05/05/2022 16:13 Chloride 100 mmol/L ()?? 05/05/2022 16:13 Bicarbonate Level 23 mmol/L ()?? 05/05/2022 16:13 Anion Gap 14 ()?? 05/05/2022 16:13 Glucose Level 135 mg/dL (High)?? 05/05/2022 16:13 Glucose, POC 135 mg/dL (High)?? 05/05/2022 23:42 BUN 15 mg/dL ()?? 05/05/2022 16:13 Creatinine-Blood 0.9 mg/dL ()?? 05/05/2022 16:13 Estimated GFR Creatinine 97 ML/MIN/1.73 M2 ()?? 05/05/2022 16:13 Calcium 10.1 mg/dL ()?? 05/05/2022 16:13 Calcium, Ionized pH Corrected 1.28 mmol/L ()?? 05/05/2022 16:13 Magnesium 1.8 mg/dL ()?? 05/05/2022 16:13 Protein, Total 7.4 Gm/dL ()?? 05/05/2022 16:13 Albumin 4.4 Gm/dL ()?? 05/05/2022 16:13 Alkaline Phosphatase 114 units/L ()?? 05/05/2022 16:13 AST (SGOT) 23 units/L ()?? 05/05/2022 16:13 ALT (SGPT) 32 units/L ()?? 05/05/2022 16:13 Bilirubin, Total 0.3 mg/dL ()?? 05/05/2022 16:13 Bilirubin, Direct <0.2 mg/dL ()?? 05/05/2022 16:13 Bilirubin, Indirect Direct bilirubin is less than the measureable limit. Therefore, indirect mg/dL ()?? 05/05/2022 16:13 Lactate 1.6 mmol/L ()?? 05/05/2022 16:13 ?? COAG D-Dimer 0.98 mg/L FEU ()?? 05/05/2022 16:13 ?? MISC. CHEMISTRY Hold Green Top SPECIMEN DISCARDED AFTER 1 WEEK ()?? 05/05/2022 16:15 ?? UA/URINALYSIS Appear/Color, Urine YELLOW ()?? 05/05/2022 23:35 Specific Plain, Urine >1.050 (High)?? 05/05/2022 23:35 pH, Urine 6.0 ()?? 05/05/2022 23:35 Albumin, Urine TRACE (Abnormal)?? 05/05/2022 23:35 Glucose, Urine NEGATIVE ()?? 05/05/2022 23:35 Ketones, Urine NEGATIVE ()?? 05/05/2022 23:35 Bilirubin, Urine NEGATIVE ()?? 05/05/2022 23:35 Hemoglobin, Urine NEGATIVE ()?? 05/05/2022 23:35 Nitrite, Urine NEGATIVE ()?? 05/05/2022 23:35 Leukocyte, Urine NEGATIVE ()?? 05/05/2022 23:35 Urobilinogen NORMAL mg/dL ()?? 05/05/2022 23:35 WBC's, Urine 1 /HPF ()?? 05/05/2022 23:35 RBC's, Urine 2 /HPF ()?? 05/05/2022 23:35 Bacteria SLIGHT HPF (Abnormal)?? 05/05/2022 23:35 Squamous Epith <1 /HPF ()?? 05/05/2022 23:35 Mucus SLIGHT /LPF ()?? 05/05/2022 23:35 Hold Urine Culture Testing available 48 hours from time of collection. ()?? 05/05/2022 23:35 ?? VIROLOGY Influenza A PCR NEGATIVE ()?? 05/05/2022 16:15 Influenza B PCR NEGATIVE ()?? 05/05/2022 16:15 RSV PCR NEGATIVE ()?? 05/05/2022 16:15 COVID-19 PCR Specimen Source NASAL ()?? 05/05/2022 16:15 COVID-19 PCR Result NEGATIVE ()?? 05/05/2022 16:15 ? * Chad Quach MD: PERFORM Event Display: Admission Note Authored Date: ??Attending Attestation: I have seen and evaluated this patient. ?? I have discussed the case and its management with the resident and agree with the findings and vale documented in the resident's note. ??I ??will continue to provide care to this patient till 7 AMof the admitting date. ?? 57-year-old male with a past medical history of lung cancer on immunotherapy, hypertension, diabetes mellitus came with a complaint of fever, worsening of shortness of breath. ??He did have a fever. ??Patient is feeling weak and tired and fatigued from last couple of days. ??Today he called his oncologist and he was advised to go to the ED for further evaluation. ??Lab work-up showed normal WBC count with chronic anemia. ??Influenza A, B, RSV, COVID-19 is negative. ??Chest x-ray ruled out any acute cardiology pulmonology process noted. ??CT angio chest ruled out any pulmonary embolism. ??CT soft tissue neck showed mild right parotitis. ??Patient was given ceftriaxone and azithromycin. ??Patient have a fever. ??We will continue with the vancomycin, Zosyn for possible parotitis due to immunocompromise status. ??We will follow the blood culture. ??Patient have hypoxia. ??Concern of early evolving pneumonia. ??We will add azithromycin too. ??We will narrow down the antibiotics as per the clinical condition. ?? EKG study * Event Display: ECG 12-Lead Authored Date: Please click on pdf link to open report * Event Display: ECG 12-Lead Authored Date: Ventricular Rate: 95 BPM Atrial Rate: 95 BPM P-R Interval: 158 ms QRS Duration: 96 ms Q-T Interval: 344 ms QTC Calculation(Bazett): 432 ms P [place]: 56 degrees R [place]: 8 degrees T [place]: 60 degrees Normal sinus rhythm Possible Left atrial enlargement Septal infarct (cited on or before 06-JUN-2020) Abnormal ECG When compared with ECG of 03-MAR-2022 09:14, Questionable change in initial forces of Septal leads Confirmed by YANET MIRANDA ROSEANNE ([id number]) on 05/05/2022 5:52:13 PM [place] * Britney Sheridan RN: PERFORM, SIGN, VERIFY Event Display: Progress Note Hospital Authored Date: [id number] Patient: ABDIRAHMAN LEON Age: 57 years Sex: Male : 1965 Associated Diagnoses: None Author: Britney Sheridan RN Findings Problem Related to Knowledge Deficit : Knowledge Deficit/new 05/09/2022 22:00 EDT Knowledge Deficit related to: Disease process, Use of equipment, Other: non-compliance with fruit packer face and fill, SPo2 monitor Goals & Outcomes, Knowledge Deficit Pt/caregiver demonstrates use of equipment, Pt/caregiver will state understanding of plan/goals of care, Pt/caregiver will state understanding of treatments, Pt/caregiver will verbalize understanding of the D/C plan Interventions, Knowledge Deficit Encourage questions, concerns, and opportunity for self care, Teach Pt/caregiver in self care Goals/Interventions,Knowledge deficit Yes Knowledge Deficit, Problem Start 05/09/2022 17:12 Reviewed Plan with, Knowledge Deficit Patient Patient Progression, Knowledge Deficit Pt progressing according to plan Knowledge Deficit, Problem Resolved 05/09/2022 17:12 . Alteration in Respiratory Function (new) : Alteration in Respiratory Function/new 05/09/2022 22:00 EDT Alteration in Resp Status Related to Pneumonia, Other: lung ca Goals & Outcomes, Respiratory Pt will maintain/resume baseline physical assessment, Pt will notdevelop complications r/t immobility, Pt will demonstrate proper technique w/self care procedures Interventions, Respiratory Assess for and report S&S of respiratory distress, Position for comfort & optimal oxygenation Goals/Interventions, Respiratory Yes Respiratory, Problem Start 05/07/2022 23:00 Reviewed Plan with, Respiratory Patient Patient Progression, Respiratory Patient progressing according to plan . Nursing Data Activity Data : Activity Data 05/09/2022 20:00 EDT Activity Status ADL Up with assistance Repositioning Assist . Cardiac Data. : Cardiac Data. 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 Gastrointestinal Data. : Gastrointestinal Data. 05/09/2022 20:00 EDT Abdomen Soft, Non-tender Bowel Sounds LUQ Present Bowel Sounds RUQ Present Bowel Sounds LLQ Present Bowel Sounds RLQ Present GI WNL except Normal Bowel Pattern Daily . Genitourinary Data. : Genitourinary Data. 05/09/2022 20:00 EDT Urinary catheter type None Urine Color Yellow Genitourinary Comment Voiding in urinal WNL except . Integumentary Data. : Integumentary Data. 05/09/2022 20:00 EDT Skin Integrity Intact Sensory Perception No impairment Activity Walks occasionally Mobility Slightly limited Integumentary WNL except . Musculoskeletal Data. : Musculoskeletal Data. 05/09/2022 20:00 EDT Musculoskeletal Symptoms Weakness Musculoskeletal WNL except . Neurological Data. : Neurological Data. 05/09/2022 23:04 EDT Pain Intensity 7 05/09/2022 22:00 EDT Neurological Assessment Status Unchanged from recorder's assessment 05/09/2022 20:00 EDT Tongue Disposition Midline Level of Consciousness Full Consciousness Orientated to person, place, time Person, Place, Time Hallucinations None Facial Symmetry Intact Characteristics of Speech Clear and normal Swallowing Difficulty None Pupil description, left Regular Pupil description, right Regular Pupil reaction, left Brisk Pupil reaction, right Brisk Strength LUE 4-Active movement against gravity & some resistance Strength RUE 4-Active movement against gravity & some resistance Strength LLE 4-Active movement against gravity & some resistance Strength RLE 4-Active movement against gravity & some resistance Tone LUE Normal Tone RUE Normal Tone LLE Normal Tone RLE Normal Sensation LUE Intact Sensation RUE Intact Sensation LLE Intact Sensation RLE Intact Movement LUE Spontaneous, To command Movement RUE Spontaneous, To command Movement LLE Spontaneous, To command Movement RLE Spontaneous, To command Response Eye Opening Spontaneously Motor Response-Adult Obeys commands Verbal Response-Adult Oriented and converses Karey Coma Score 15 1 - 10 Pain Scale Score 5 Pain Interventions PRN medication Neuro WNL except Eyes and Movements Conjugate gaze: Move in same direction at same speed Memory Intact Swallow - Neuro Normal . Patient Care Data. : Patient Care Data. 05/09/2022 23:33 EDT Turn and Reposition Able to change own position Sequential Compression Device Sequentials on bilaterally TEDS Not indicated/Not ordered ID band on Yes Allergy band in place/verified Yes Blood Pressure/Venipuncture All 4 limbs may be used Call [place] in Reach-Ensure Ability to Use Yes Patient Instructed on Use of Call [place] Yes Standard Safety Bed alert on, Bed in low position, Chair alarm, Crib rails up, Non-slip footwear, Upper/Half-length side-rails up, Wheels locked Pt Ed-Learning: Person Taught Patient Pt Ed-Learning: Learning Readiness Yes, alert and oriented Fall Elimination No impairment Fall Agitation/Anxiety/Depression No impairment Fall Related Sign/Symptom/Condition None Fall Cognitive Limitations No impairment Fall Sensory and Physical Function Weak, Requires Staff Assistance with Transfer Plan: Fall Sensory and Physical Function Monitor patient's progress with physical activities, Collaborate with Physical Therapy for balance/gait training Fall High Risk for Injury None of the above Total Falls Risk Score 5 Fall Risk Level High Risk Falls Prevention Plan for High Risk Fall risk decal outside of patient's room, Activate yellow iDome light, Fall centrifugal station operator patient's chart, Apply yellow high fall risk wrist band to wrist, Ensure patient has yellow non-skid slippers, Activate bed exit alarm system, Provide patient/family falls prevention education, Instruct patient/family to request assistance with ambulatio, Check that needs are met to minimize attempts to get up, Hourly rounds, Ensure safe & uncluttered environment, Communicate falls risk to all providers 05/09/2022 23:00 EDT Bed Position Low 05/09/2022 20:00 EDT Patient's Stated Goal none stated, safety maintain VAP Precautions HOB 30-45 degrees unless contraindicated, doc. 3X/day Hygiene Refused care Activity Status ADL Up with assistance Repositioning Assist Pain system assessment Detailed pain assessment . Respiratory/Pulmonary Data. : Respiratory/Pulmonary Data. 05/09/2022 23:33 EDT Respiratory Treatment(s) Cough and deep breathe 05/09/2022 23:00 EDT Head of Bed > 30 degrees 05/09/2022 20:22 EDT Mode of Delivery (Oxygen) Room air 05/09/2022 20:00 EDT Respiratory Symptoms None Respiratory effort Unlabored Chest expansion Symmetrical Cough No cough Respiratory pattern Regular Left Upper Lobe Breath Sounds Diminished Right Upper Lobe Breath Sounds Diminished Right Middle Lobe Breath Sounds Diminished Left Lower Lobe Breath Sounds Diminished Right Lower Lobe Breath Sounds Diminished Respiratory distress None Respiratory Treatment(s) Cough and deep breathe Respiratory WNL except . Vital Signs : VITAL SIGNS SECTION 05/09/2022 20:23 EDT Early Warning Score 9.00 05/09/2022 20:22 EDT Temperature 98.4 DegF Temperature Route Oral Pulse Rate 85 bpm Respiratory Rate 20 br/min Systolic Blood Pressure 119 mm Hg Diastolic Blood Pressure 70 mm Hg Blood pressure sites Arm, left Mean Arterial Pressure 86 mm Hg Pulse Pressure 49 mm Hg Oxygen Saturation 91 % L Mode of Delivery (Oxygen) Room air . Pain Data : PAIN SECTION 05/09/2022 23:04 EDT Pain Intensity 7 05/09/2022 20:00 EDT 1 - 10 Pain Scale Score 5 . Evaluation Pt. alert and oriented x3, speech clear and swallow intact. FARMER= strong to command. denies n/t, dizziness and vision changes. + headache, PRN Tylenol given with good effect. NSR on tele. +pp with no edema noted. Slight right facial swelling noted- MD aware. LS-diminished no sob or chest pain. Continuous O2 monitoring in place. Pt. sating low 90's on RA. Pt. encouraged to keep nasal canula in place. When in place o2 sat mid to high 90's. BS+ x4 abd soft nontender no n/v. Voiding in urinal- urinetea colored. IV fluids infusing as ordered. See biophysical for full assessment. Will cont. to monitor and report changes.. * Beth Yusuf RN: PERFORM, SIGN, VERIFY Event Display: Progress Note Hospital Authored Date: [id number] Patient: ABDIRAHMAN LEON Age: 57 years Sex: Male : 1965 Associated Diagnoses: None Author: Beth Yusuf RN Findings Problem Related to Knowledge Deficit : Knowledge Deficit/new 05/09/2022 17:00 EDT Knowledge Deficit related to: Disease process, Use of equipment, Other: non-compliance with fruit packer face and fill, SPo2 monitor Goals & Outcomes, Knowledge Deficit Pt/caregiver demonstrates use of equipment, Pt/caregiver will state understanding of plan/goals of care, Pt/caregiver will state understanding of treatments, Pt/caregiver will verbalize understanding of the D/C plan Interventions, Knowledge Deficit Provide reinforcement previous teaching BH Goals/Interventions,Knowledge deficit Yes Knowledge Deficit, Problem Start 05/09/2022 17:12 Reviewed Plan with, Knowledge Deficit Patient Patient Progression, Knowledge Deficit Pt progressing according to plan Knowledge Deficit, Problem Resolved 05/09/2022 17:12 . Alteration in Respiratory Function (new) : Alteration in Respiratory Function/new 05/09/2022 17:00 EDT Alteration in Resp Status Related to Pneumonia, Other: lung ca Goals & Outcomes, Respiratory Pt will maintain/resume baseline physical assessment, Pt will notdevelop complications r/t immobility, Pt will demonstrate proper technique w/self care procedures Interventions, Respiratory Monitor sputum color & consistency. Report changes to MD, Teach/encourage use of incentive spirometer, Teach the proper use of inhalers, Teach purse lip breathing as needed for breathing retraining BH Goals/Interventions, Respiratory Yes Respiratory, Problem Start 05/07/2022 23:00 Reviewed Plan with, Respiratory Patient Patient Progression, Respiratory Patient progressing according to plan . Nursing Data Cardiac Data. : Cardiac Data. 05/09/2022 9:00 EDT Cardiovascular Symptoms None Nail Bed Color, Fingers [place] Nail Bed Color, Toes [place] Skin Temperature Upper Extremities Warm Skin Temperature Lower Extremities Warm Heart Sounds S1, S2 Heart Rhythm Regular Pacemaker No Cardiac Rhythm Normal sinus rhythm Capillary Refill < 3 seconds aeronautical test engineer Yes Cardiovascular WNL except . Vital Signs : VITAL SIGNS SECTION 05/09/2022 15:53 EDT Early Warning Score 9.00 05/09/2022 15:53 EDT Temperature 99.7 DegF Temperature Route Oral Pulse Rate 83 bpm Respiratory Rate 19 br/min Systolic Blood Pressure 102 mm Hg Diastolic Blood Pressure 68 mm Hg Blood pressure sites Arm, left Mean Arterial Pressure 79 mm Hg Pulse Pressure 34 mm Hg Oxygen Saturation 95 % Liters per Minute 3 L/min Mode of Delivery (Oxygen) Nasal cannula . Evaluation Pt alert and oriented x4, bilateral lung sounds diminished in bases, continues on tele NS. Patient removed monitor and patient educated on the importance of cardiac and Spo2 monitor-successfully reapplied. IVF infused w/o any difficulty, ambulated SBA in room, safety maintained.. Discharge Information Case Management Discharge Plan : Case Management Discharge Plan Data 05/07/2022 11:21 EST Discharge GRAM Acquisition Pulmonary Rehab Discharge : Pulmonary Rehab Discharge Status 05/07/2022 11:21 EST Patient Going Home on Oxygen Yes Portable unit required Yes Oxygen Device used at Home Nasal cannula Liter flow 3 LPM Oxygen Use Duration Continuous Home care instructions Call company when you get home., An appointment has been scheduled with a pulmonary nurse. Nurse Communication (Pulmonary Rehab) Nurse Communication (Pulmonary Rehab) * Bola Rothman MD: PERFORM Event Display: Progress Note Hospital Authored Date: Patient: ??ABDIRAHMAN LEON ? Age:??57 Years?Sex:??Male?:??1965?? Subjective Patient was seen and examined at bedside. Overnight events reviewed. In good??spirits today. No longer has fever or chills. Overall gradually feeling better. ??He feels like the swelling and pain in the cheek is improving. Renal function gradually improving. Review of Systems A full review of systems was completed and is otherwise negative except as mentioned above. Objective Measurements?? Height: 175 cm (05/09/22) Weight: 115.4 kg (05/06/22) Dry Weight: 115.4 kg (05/06/22) Body Mass Index:??37.68 kg/m2??Critical (05/06/22) ? Vital Signs?? Temperature: 100 DegF (05/09/22 11:16:00) Temperature Route: Oral (05/09/22 11:16:00) Pulse Rate: 88 bpm (05/09/22 12:06:00) Respiratory Rate: 18 br/min (05/09/22 11:16:00) Systolic Blood Pressure: 105 mm Hg (05/09/22 12:06:00) Diastolic Blood Pressure: 78 mm Hg (05/09/22 12:06:00) Blood pressure sites: Arm, left (05/09/22 11:16:00) Mean Arterial Pressure: 87 mm Hg (05/09/22 11:16:00) Pulse Pressure: 27 mm Hg (05/09/22 11:16:00) Oxygen Saturation: 96 % (05/09/22 11:16:00) Liters per Minute: 3 L/min (05/09/22 11:16:00) Mode of Delivery (Oxygen): Nasal cannula (05/09/22 11:16:00) Early Warning Score: 7 (05/09/22 12:13:07) ? Physical Exam Gen: comfortable, well: HEENT: normocephalic, atraumatic, R facial swelling (patient reports that swelling is improving) Chest: CTA, no wheeze/crackles CVS: no M/G/R, no JVD Abdo: soft, non-tender Ext: no oedema, no cyanosis or clubbing Neuro: A+Ox3 Psych: WNL _ Inpatient Medications Medications (19) Active SCHEDULED: (10) Aspirin 81 mg EC Tablet (aspirin 81 mg oral delayed release tablet) ??81 mg, By Mouth, Daily Atorvastatin 20 mg Tablet (atorvastatin 20 mg oral tablet) ??20 mg, By Mouth, Daily Breo Ellipta 100 mcg / 25 mcg Inhaler (Breo Ellipta 100 mcg-25 mcg Inhaler) ??1 puffs, Inhalation, Daily Cefepime 2 Gm Inj (Cefepime Extended IVPB) ??2,000 mg, IVPB, Every 12 hours Diltiazem 30 mg Tablet (diltiazem 30 mg oral tablet) ??30 mg, By Mouth, Every 6 hours Enoxaparin 40 mg Inj (Enoxaparin Inj) ??40 mg 0.4 mL, Subcutaneous Injection, Daily Melatonin 3 mg Tablet (Melatonin Tablet) ??3 mg, By Mouth, Daily at bedtime Metronidazole 500 mg / NaCL 0.9% 100 mL (Flagyl IVPB) ??500 mg 100 mL, IVPB, Every 8 hours Pantoprazole 20 mg EC Tablet (pantoprazole 20 mg oral delayed release tablet) ??20 mg, By Mouth, Daily Spiriva Respimat 2.5 mcg Inhaler (Spiriva Respimat Inhaler) ??2 puffs, Inhalation, Daily CONTINUOUS: (1) NaCL 0.9% (1000 mL) Cont IV 1,000 mL (0.9% NaCL 1,000 mL) ??1,000 mL, IV Infusion, 75 mL/hr PRN: (8) Acetaminophen 325 mg Tablet (Tylenol 325 mg oral tablet) ??975 mg, By Mouth, Every 6 hours Albuterol/Ipratropium Inhalation Rere 3mL (Duoneb Inhalation Solution) ??1 vials, BAND Nebulizer, Every 4 hours Dextrose Inj Syringe (Dextrose 50% Inj Syringe (25Gm)) ??12.5 Gm, IV Push Slowly, Every 20 minutes Dextrose Inj Syringe (Dextrose 50% Inj Syringe (25Gm)) ??25 Gm, IV Push Slowly, Every 15 minutes Glucagon 1 mg Inj (Glucagon Inj) ??1 mg, Intramuscular, Once Glucose 40% Gel (15 Gm) (Glucose Gel) ??15 Gm, By Mouth, Every 20 minutes Glucose 40% Gel (15 Gm) (Glucose Gel) ??30 Gm, By Mouth, Every 20 minutes Ondansetron 2mg/mL Inj (2mL Vial) (Zofran Inj) ??4 mg, IV Push, Every 6 hours ? 72 Hour Antibiotic History Active Antibiotics Calendar Day Last Administered First Administered Cefepime??2,000 mg, 33.33 mL/hr, IVPB, Every 12 hours ?2 05/09/2022 12:06 05/08/2022 12:05 Metronidazole??500 mg, 100 mL, 100 mL/hr, IVPB, Every 8 hours ?2 05/09/2022 12:06 05/08/2022 14:31 ? Stopped Antibiotics Stop Date/Time Last Administered First Administered Piperacillin-Tazobactam??3.375 Gm, 25 mL/hr, IVPB, Every 8 hours 05/08/2022 09:52 05/08/2022 01:16 05/06/2022 00:16 Vancomycin??1,500 mg, 250 mL/hr, IVPB, Every 48 hours 05/08/2022 09:52 05/07/2022 23:58 05/07/2022 23:58 ? Results Recent Labs BLOOD COUNT & DIFF WBC 3.9 k/mm3 (Low)?? 05/09/2022 04:39 RBC 3.45 m/mm3 (Low)?? 05/09/2022 04:39 Hgb 9.4 Gm/dL (Low)?? 05/09/2022 04:39 Hct 29.8 % (Low)?? 05/09/2022 04:39 MCV 86.4 femtoliters ()?? 05/09/2022 04:39 MCH 27.2 pg ()?? 05/09/2022 04:39 MCHC 31.5 g/dL (Low)?? 05/09/2022 04:39 Platelet Count 103 k/mm3 (Low)?? 05/09/2022 04:39 RDW-SD 44.6 femtoliters ()?? 05/09/2022 04:39 MPV 10.9 femtoliters ()?? 05/09/2022 04:39 Nucleated RBC (Automated) 0.5 #/100 WBC'S ()?? 05/09/2022 04:39 Abs. NRBC 0.0 k/mm3 ()?? 05/09/2022 04:39 ?? CHEM GENERAL Sodium 135 mmol/L ()?? 05/09/2022 04:40 Potassium 3.9 mmol/L ()?? 05/09/2022 04:40 Chloride 102 mmol/L ()?? 05/09/2022 04:40 Bicarbonate Level 23 mmol/L ()?? 05/09/2022 04:40 Anion Gap 10 ()?? 05/09/2022 04:40 Glucose Level 137 mg/dL (High)?? 05/09/2022 04:40 Glucose, POC 132 mg/dL (High)?? 05/09/2022 11:28 BUN 24 mg/dL (High)?? 05/09/2022 04:40 Creatinine-Blood 1.6 mg/dL (High)?? 05/09/2022 04:40 Estimated GFR Creatinine 49 ML/MIN/1.73 M2 ()?? 05/09/2022 04:40 Calcium 9.1 mg/dL ()?? 05/09/2022 04:40 Calcium, Ionized pH Corrected ACTUAL MEASURED IONIZED CALCIUM IS 1.20 mmol/L ()?? 05/08/2022 01:16 Phosphorus 2.2 mg/dL (Low)?? 05/09/2022 04:40 Magnesium 2.0 mg/dL ()?? 05/09/2022 04:40 ?? UA/URINALYSIS Appear/Color, Urine YELLOW ()?? 05/08/2022 14:50 Specific Plain, Urine 1.012 ()?? 05/08/2022 14:50 pH, Urine 6.0 ()?? 05/08/2022 14:50 Albumin, Urine 1+ (Abnormal)?? 05/08/2022 14:50 Glucose, Urine NEGATIVE ()?? 05/08/2022 14:50 Ketones, Urine NEGATIVE ()?? 05/08/2022 14:50 Bilirubin, Urine NEGATIVE ()?? 05/08/2022 14:50 Hemoglobin, Urine 3+ (Abnormal)?? 05/08/2022 14:50 Nitrite, Urine NEGATIVE ()?? 05/08/2022 14:50 Leukocyte, Urine NEGATIVE ()?? 05/08/2022 14:50 Urobilinogen 2 mg/dL (Abnormal)?? 05/08/2022 14:50 WBC's, Urine 4 /HPF ()?? 05/08/2022 14:50 RBC's, Urine 3 /HPF ()?? 05/08/2022 14:50 Bacteria SLIGHT HPF (Abnormal)?? 05/08/2022 14:50 Amorphous Crystals MODERATE /HPF ()?? 05/08/2022 14:50 Mucus SLIGHT /LPF ()?? 05/08/2022 14:50 ?? URINE OTHER Sodium, Urine Random 44 mmol/L ()?? 05/08/2022 14:50 Protein, Total Urine Random 68 mg/dL ()?? 05/08/2022 14:50 TP/Cr Ratio 0.83 (High)?? 05/08/2022 14:50 Creatinine, Urine 81.7 mg/dL ()?? 05/08/2022 14:50 ? Assessment/Plan 57 year old with a history of lung cancer, currently on Dabrafenib and Trametinib, diet controlled diabetes, and hypertension. Presented with R facial swelling and fever with CT suggesting R parotitis ?? Sepsis Parotitis in immunocompromised patient Patient presented with fever and R facial swelling parotitis on CT given persistent fever repeat BCs sent but probably contaminated. 1/2 bottle with stap. epi. Another blood culture ordered MRSA nasal PCR negative Continues to have fever, tachycardia Plan:- Start Cefepime and flagyl (discussed with ID team) Stop vanco and zosyn-->probably contributing to the ANIRUDH Continue IV hydration monitor CBC (currently with no leukocytosis) f/u blood cx ?? Acute Kidney Injury Contrast Induced nephropathy Cret 1-->1.6--2.2-->1.6 Probably in the setting of contrast exposure, sepsis, vancomycin, dehydration Plan: Continue IV hydration renal consult ?? Acute hypoxic respiratory failure COPD Bilateral atelectasis It seems that his respiratory symptoms are not really acute and he has been having some SOB with exertion for some months At last oncology visit Dr Saleh had intended to send for O2 assessment CTA with no PE and atelectasis. no clear focal consolidation pulm rehab eval for O2 assessment Incentive spirometer CPT with acapella Breo + Spiriva daily. PRN duonebs ?? NSCLC metastatic with BRAF mutation Patient took last dose on 05/05/22 at home. ??Plan: ??- Hold home Trametinib and Dabrafenib ?? Stable chronic problems: ??1) Type II Diabetes:hold home metformin and start S/S lispro with POC glucose 3 times daily and bedtime with hypoglycemia emergency measures ??2) Cluster headaches: No acute concerns. patient not taking Sumatriptan or Emgality or prochlorperazine at home according to him. Will hold here. ??3) HTN: Continue home losartan, diltiazem ??4) HLD: Continue home statin ??5) Other medications: Patient taking Aspirin for unknown indication. Will benefit from PCP discussion about continuing. Continuing while here. ?? Code: FULL ??Diet: Diabetic with 2gm sodium restriction ??DVT prophylaxis: Enoxaparin ??omn:??IV antibiotics,??ANIRUDH, respi failure ? Note * Tracey Saucedo RN: PERFORM Event Display: Discharge/Transfer Note Hospital Authored Date: [id number] Nursing Discharge Note Entered On: 05/10/2022 11:36 EDT Performed On: 05/10/2022 11:36 EDT by Tracey Saucedo RN Nursing Discharge Note 2 Discharge Time : 05/10/2022 11:36 EDT Discharge Level of Care at Discharge : Home/Usp/Foster Care Discharge VNA/Hospice/Home Care(v001) : [facility] [phone] Discharge Superplayer(v001) : [facility] Patient Left Unit Via : Wheelchair Patient Accompanied Off Unit with : Responsible adult DC Instructions Provided & Signed by Pt : Yes Patient Understands D/C Instructions : Yes Patient Instructions Discharge Signed : Yes Discharge Comments : IV access removed, pt education provided, follow up appt discussed Did Pt have Specialty Bed or Wound Vac : No Tracey Saucedo RN - 05/10/2022 11:36 EDT * Elizabet Macias: PERFORM Event Display: Discharge/Transfer Note Hospital Authored Date: Pulmonary Rehab Discharge Status Entered On: 05/10/2022 10:29 EDT Performed On: 05/10/2022 10:29 EDT by Elizabet Macias Pulmonary Rehab Discharge Status Patient Going Home on Oxygen : Yes Portable unit required : Yes Oxygen Device used at Home : Nasal cannula Liter flow : 2 LPM Oxygen Use Duration : With activity Discharge Superplayer(v001) : [facility] Home care instructions : Call company when you get home. Informational handouts : Oxygen Therapy Elizabet Macias - 05/10/2022 10:29 EDT * Ghulam Chaudhari MD: MODIFY, PERFORM Event Display: Discharge/Transfer Note Hospital Authored Date: Patient: ??EDWARD, ABDIRAHMAN ? Age:??57 Years?Sex:??Male?:??1965?? Patient Information Discharge Location: S1 Primary Care Physician: Aubrey Taylor MD Admit Date/Time: 05/05/22 22:11 Discharge Disposition Discharge Disposition: ?? Discharge Diagnosis Acute respiratory failure with hypoxemia (J96.01) Lung cancer (C34.90) Parotitis (K11.20) ?? _ Discharge Medications Amoxicillin-Clavulanate (Augmentin 875 mg-125 mg oral tablet)?1?tab(s)?By Mouth?Every 12 hours?for 5?Days Aspirin (aspirin 81 mg oral delayed release tablet)?81?Milligram?1?tablet?By Mouth?Daily Atorvastatin (atorvastatin 20 mg oral tablet)?1?tab(s)?By Mouth?Daily dabrafenib (dabrafenib 75 mg oral capsule)?2?capsule?150?Milligram?By Mouth?2 times a day Diltiazem (diltiazem 120 mg/24 hours oral capsule, extended release)?120?Milligram?1?capsule?By Mouth?Daily?for 30?Days Durable Medical Equipment (Home Blood Pressure Monitor)?See Instructions?Large blood pressurecuff Durable Medical Equipment (Freestyle Lite Monitor)?See Instructions?Check glucose once daily or as directed by physician Durable Medical Equipment (Freestyle Test Strips)?See Instructions?Use to check glucose once daily or as directed by physician Durable Medical Equipment (Freestyle Lancets)?See Instructions?Use to check glucose once daily or as instructed by phsician Metformin (metFORMIN 1000 mg oral tablet)?1?tab(s)?By Mouth?2 times a day Omeprazole (omeprazole 20 mg oral enteric coated capsule)?See Instructions?TAKE 1 CAPSULE BY MOUTH DAILY BEFORE A MEAL X30 DAYS trametinib (trametinib 2 mg oral tablet)?1?tab(s)?2?Milligram?By Mouth?Daily?At least one hour before or two hours after a meal ? Objective Assessment and Plan Acute respiratory failure with hypoxemia (J96.01):??57 year old with a history of lung cancer, currently on Dabrafenib and Trametinib, diet controlled diabetes, and hypertension. Presented with R facial swelling and fever with CT suggesting R parotitis Patient was seen by??infectious disease, initially??on cefepime and metronidazole spoke to??Dr. Pierre Woodard switch to Augmentin on discharge ? Sepsis??been ruled out no evidence??of bacteremia ??Parotitis?? Fever secondary to??parotitis, treated with cefepime and??metronidazole switched to Augmentin??875 mg twice daily for another??5 days to complete the course Initial blood cultures??were positive??question of staph??epidermidiis?repeat blood cultures were negative most likely the 1??bottle was contaminated clinically patient??is improving, he is??very impatient and wants to go home??agitated??and angry about kept in the hospital.?MRSA nasal PCR negative ? Acute Kidney Injury ??Contrast Induced nephropathy Improving now down to 1.6 from 2.2 Outpatient follow-up??for labs at the PCP in 2 to 3 days ?? Diabetes mellitus type 2 holding metformin??till the creatinine??is improved,??resume rest of home medications ? Acute hypoxic respiratory failure, I do not see any evidence of hypoxia, patient is on room air 95%??but apparently??during the hospital stay he was hypoxic and in the mid 80s without oxygen he was evaluated by??pulmonary rehab nurse and was??recommending home O2??on reevaluation for home O2??patient refused??to participate??and refused for home O2 ??COPD ??Bilateral atelectasis We are unable to arrange for oxygen as he needs a reevaluation for home O2,??respiratory therapist has given information??that if it is a continuous problem patient??will need a referral from the PCPfor home??oxygen set up ? NSCLC metastatic with BRAF mutation ??Patient took last dose on 05/05/22 at home. ?Plan: at??home on Trametinib and Dabrafenib ? Stable chronic problems: ?1) Type II Diabetes:hold home metformin and start S/S lispro with POC glucose 3 times daily andbedtime with hypoglycemia emergency measures ?2) Cluster headaches: No acute concerns. patient not taking Sumatriptan or Emgality or prochlorperazine at home according to him. Will hold here. ?3) HTN: Continue home losartan, diltiazem ?4) HLD: Continue home statin ?5) Other medications: Patient taking Aspirin for unknown indication. Will benefit from PCP discussion about continuing. Continuing while here. ? Disposition Home with VNA services ?? Discharge Planning:? Vital Signs?? Temperature: 98.3 DegF (05/10/22 07:36:00) Temperature Route: Oral (05/10/22 03:32:00) Pulse Rate: 80 bpm (05/10/22 09:01:00) Respiratory Rate: 16 br/min (05/10/22 07:36:00) Systolic Blood Pressure: 113 mm Hg (05/10/22 09:01:00) Diastolic Blood Pressure: 74 mm Hg (05/10/22 09:01:00) Blood pressure sites: Arm, left (05/10/22 03:32:00) Mean Arterial Pressure: 87 mm Hg (05/10/22 07:36:00) Pulse Pressure: 39 mm Hg (05/10/22 07:36:00) Oxygen Saturation:??90 %??Low (05/10/22 07:36:00) Liters per Minute: 4 L/min (05/10/22 03:32:00) Mode of Delivery (Oxygen): Room air (05/10/22 07:36:00) Early Warning Score: 6 (05/10/22 09:02:33) ? . Physical Exam General: [Alert, in no acute cardiopulmonary distress.] Mental Status: [Oriented to person, place and time. Normal affect.] Right parotid??gland??is palpable Head: [Normocephalic.] Eyes: [Pupils are equal, round and reactive to light. Extraocular muscles intact.] Ear, Nose and Throat: [Oropharynx clear, mucous membranes moist. Respiratory: [Clear to auscultation and percussion. No wheezing, rales or rhonchi.] Cardiovascular: [Heart sounds normal. No thrills. Regular rate and rhythm, no murmurs, rubs or gallops.] Gastrointestinal: [Abdomen soft, non-tender, non-distended. Normal bowel sounds. Neurologic: [Cranial nerves II-XII grossly intact. No focal neurological deficits. Musculoskeletal: [No cyanosis or clubbing. No gross deformities. Normal range of motion.] Pending Results Add On Lab Order ordered on 05/06/2022 Basic Metabolic Panel ordered on 05/06/2022 Blood Culture ordered on 05/05/2022 Blood Culture ordered on 05/08/2022 Blood Culture #2 ordered on 05/05/2022 Blood Culture #2 ordered on 05/06/2022 Blood Culture #2 ordered on 05/08/2022 CBC ordered on 05/06/2022 COVID-19 (2019 Novel Coronavirus) PCR ordered on 05/10/2022 Magnesium Level ordered on 05/06/2022 Wound Superficial Culture W/ Gram Smear ordered on 05/05/2022 Follow-Up Appointments Added Follow Up ?Time Frame ?Comments Aubrey Taylor MD?1 to 2 weeks Post Discharge Care Discharge ?05/10/22 9:50:00 EDT Home Health Face to Face *Denotes mandatory brown ?? *I certify that this patient is under my care and that I or an allowed non- physician working with me had a face to face encounter with the patient on this date:??05/10/2022 10:13 ?? *The encounter with the patient was in whole, or in part, for the following medical condition, which is the primary diagnosis(es) for home health care:??Acute respiratory failure with hypoxemia (J96.01) Lung cancer (C34.90) Parotitis (K11.20) ? *Select the indications for the discipline/s that are being arranged for this patient. Nursing (select all that apply): [_] None [_] Medication management (reconciliation, teaching)?? [_x] Chronic disease management?? [_] Wound care and treatment?? [x_] Home safety evaluation [_] Administer SQ/IM/IV medications?? [_] Cath care?? [_] Drain care?? [_] Trach or GT care?? Other _ Occupation Therapy (select all that apply): [_] None [_] ADL Management [_] Fall prevention training [_] Energy conservation [_] Cognitive training Other _ Physical Therapy (select all that apply): [_] None [_x] Functional mobility training [_x] Home exercise program to strengthen [_] Increase ROM?? [_] Falls prevention training [_] Home maintenance program for chronic disease Other _ Speech Therapy (select all that apply): [_] None [_] Swallow evaluation and training [_] Speech and language training [_] Cognitive training to process, organize, and/or recall information Other _ ? *Homebound due to (select all that apply): [_] Inability to leave home without assistance/supervision [_] Inability to ambulate without assistance [_] Pain [_] xDecreased strength and endurance [_]x Unsteady gait [_] Severe SOB and fatigue [_] Impaired transfers [_] Inability to negotiate stairs [_] Limited weight bearing [_] Mental status change? *Physician Signature:ghulam chaudhari ?? *By signing this, I certify that I have personally evaluated the patient and agree with the findings and recommendations as documented above. ? F Results Discharge Labs BACTERIOLOGY MRSA PCR Result Negative, MRSA target DNA not detected. ()?? 05/06/2022 00:25 S Aureus ??PCR Result Negative, SA target DNA not detected. ()?? 05/06/2022 00:25 ?? BLOOD COUNT & DIFF WBC 4.2 k/mm3 ()?? 05/10/2022 05:58 RBC 3.55 m/mm3 (Low)?? 05/10/2022 05:58 Hgb 9.6 Gm/dL (Low)?? 05/10/2022 05:58 Hct 30.8 % (Low)?? 05/10/2022 05:58 MCV 86.8 femtoliters ()?? 05/10/2022 05:58 MCH 27.0 pg ()?? 05/10/2022 05:58 MCHC 31.2 g/dL (Low)?? 05/10/2022 05:58 Platelet Count 129 k/mm3 (Low)?? 05/10/2022 05:58 RDW-SD 45.5 femtoliters ()?? 05/10/2022 05:58 MPV 11.3 femtoliters ()?? 05/10/2022 05:58 Nucleated RBC (Automated) 0.0 #/100 WBC'S ()?? 05/10/2022 05:58 Abs. NRBC 0.0 k/mm3 ()?? 05/10/2022 05:58 Abs. Neut 6.6 k/mm3 ()?? 05/07/2022 06:37 Abs. Lymph 0.6 k/mm3 (Low)?? 05/07/2022 06:37 Abs. [place] 0.2 k/mm3 (Low)?? 05/07/2022 06:37 Abs. Eo 0.0 k/mm3 ()?? 05/07/2022 06:37 Abs. Baso 0.0 k/mm3 ()?? 05/07/2022 06:37 Neut % 89.5 % (High)?? 05/07/2022 06:37 Lymph % 7.4 % (Low)?? 05/07/2022 06:37 [place] % 2.6 % (Low)?? 05/07/2022 06:37 Eos % 0.0 % ()?? 05/07/2022 06:37 Baso % 0.1 % ()?? 05/07/2022 06:37 Imm Gran 0.4 % ()?? 05/07/2022 06:37 Abs. Imm Gran 0.0 k/mm3 ()?? 05/07/2022 06:37 ?? BLOOD GAS pH 7.46 (High)?? 05/07/2022 17:00 pCO2 30 mm Hg (Low)?? 05/07/2022 17:00 pO2 63 mm Hg (Low)?? 05/07/2022 17:00 Bicarbonate, Estimated 21 mmol/L (Low)?? 05/07/2022 17:00 Specimen Type - Blood Gas ARTERIAL ()?? 05/07/2022 17:00 Percent O2 (FIO2) 40 ()?? 05/07/2022 17:00 ?? CHEM GENERAL Sodium 135 mmol/L ()?? 05/10/2022 05:53 Potassium 4.0 mmol/L ()?? 05/10/2022 05:53 Chloride 101 mmol/L ()?? 05/10/2022 05:53 Bicarbonate Level 24 mmol/L ()?? 05/10/2022 05:53 Anion Gap 10 ()?? 05/10/2022 05:53 Glucose Level 119 mg/dL (High)?? 05/10/2022 05:53 Glucose, POC 121 mg/dL (High)?? 05/10/2022 07:27 BUN 19 mg/dL ()?? 05/10/2022 05:53 Creatinine-Blood 1.2 mg/dL ()?? 05/10/2022 05:53 Estimated GFR Creatinine 70 ML/MIN/1.73 M2 ()?? 05/10/2022 05:53 Calcium 9.4 mg/dL ()?? 05/10/2022 05:53 Calcium, Ionized pH Corrected ACTUAL MEASURED IONIZED CALCIUM IS 1.20 mmol/L ()?? 05/08/2022 01:16 Phosphorus 2.2 mg/dL (Low)?? 05/09/2022 04:40 Magnesium 2.0 mg/dL ()?? 05/09/2022 04:40 Protein, Total 6.7 Gm/dL ()?? 05/06/2022 04:03 Albumin 4.0 Gm/dL ()?? 05/06/2022 04:03 AG Ratio 1.5 ()?? 05/06/2022 04:03 Alkaline Phosphatase 103 units/L ()?? 05/06/2022 04:03 AST (SGOT) 26 units/L ()?? 05/06/2022 04:03 ALT (SGPT) 35 units/L ()?? 05/06/2022 04:03 Bilirubin, Total 0.4 mg/dL ()?? 05/06/2022 04:03 Bilirubin, Direct <0.2 mg/dL ()?? 05/05/2022 16:13 Bilirubin, Indirect Direct bilirubin is less than the measureable limit. Therefore, indirect mg/dL ()?? 05/05/2022 16:13 Lactate 1.4 mmol/L ()?? 05/06/2022 12:24 ?? COAG D-Dimer 0.98 mg/L FEU ()?? 05/05/2022 16:13 ? MISC. CHEMISTRY Hold Green Top SPECIMEN DISCARDED AFTER 1 WEEK ()?? 05/05/2022 16:15 ? SEROLOGY INF DISEASE Legionella pneumophila Antigen NEGATIVE ()?? 05/06/2022 00:25 Mycoplasma pneumoniae, IgM <770 ()?? 05/05/2022 16:13 ?? UA/URINALYSIS Appear/Color, Urine YELLOW ()?? 05/08/2022 14:50 Specific Plain, Urine 1.012 ()?? 05/08/2022 14:50 pH, Urine 6.0 ()?? 05/08/2022 14:50 Albumin, Urine 1+ (Abnormal)?? 05/08/2022 14:50 Glucose, Urine NEGATIVE ()?? 05/08/2022 14:50 Ketones, Urine NEGATIVE ()?? 05/08/2022 14:50 Bilirubin, Urine NEGATIVE ()?? 05/08/2022 14:50 Hemoglobin, Urine 3+ (Abnormal)?? 05/08/2022 14:50 Nitrite, Urine NEGATIVE ()?? 05/08/2022 14:50 Leukocyte, Urine NEGATIVE ()?? 05/08/2022 14:50 Urobilinogen 2 mg/dL (Abnormal)?? 05/08/2022 14:50 WBC's, Urine 4 /HPF ()?? 05/08/2022 14:50 RBC's, Urine 3 /HPF ()?? 05/08/2022 14:50 Bacteria SLIGHT HPF (Abnormal)?? 05/08/2022 14:50 Squamous Epith <1 /HPF ()?? 05/05/2022 23:35 Amorphous Crystals MODERATE /HPF ()?? 05/08/2022 14:50 Mucus SLIGHT /LPF ()?? 05/08/2022 14:50 Hold Urine Culture Testing available 48 hours from time of collection. ()?? 05/05/2022 23:35 ?? URINE OTHER Sodium, Urine Random 44 mmol/L ()?? 05/08/2022 14:50 Protein, Total Urine Random 68 mg/dL ()?? 05/08/2022 14:50 TP/Cr Ratio 0.83 (High)?? 05/08/2022 14:50 Creatinine, Urine 81.7 mg/dL ()?? 05/08/2022 14:50 ?? VIROLOGY Influenza A PCR NEGATIVE ()?? 05/05/2022 16:15 Influenza B PCR NEGATIVE ()?? 05/05/2022 16:15 RSV PCR NEGATIVE ()?? 05/05/2022 16:15 COVID-19 PCR Specimen Source NASAL ()?? 05/06/2022 05:01 COVID-19 PCR Result NEGATIVE ()?? 05/06/2022 05:01 ? Microbiology ?? COVID-19, RSV, and Flu A/B, Rapid PCR?? Completed?? Source: Nasal Body Site: Nose Collected Dt/Tm: 05/05/2022 16:10 Last Updated Dt/Tm: 05/05/2022 18:52 MRSA PCR Nasal Swab?? Completed?? Source: Swab Body Site: Nares Both Collected Dt/Tm: 05/06/2022 00:03 Last Updated Dt/Tm: 05/06/2022 04:23 MRSA Screen by culture?? Completed?? Source: Swab Body Site: Nares Left Collected Dt/Tm: 05/06/2022 00:04 Last Updated Dt/Tm: 05/06/2022 05:23 ?SPECIMEN DESCRIPTION : E SWAB NARES LTSPECIAL REQUESTS : NONECULTURE : NO METHICILLIN RESISTANTSTAPHYLOCOCCUS AUREUS ISOLATEDREPORT STATUS : FINAL 05/08/2022 COVID-19 (2019 Novel Coronavirus) PCR?? Completed?? Source: Nasal Body Site: Nose Collected Dt/Tm: 05/06/2022 05:01 Last Updated Dt/Tm: 05/06/2022 15:31 Blood Culture?? Completed?? Source: Blood Body Site: ?? Collected Dt/Tm: 05/06/2022 12:17 Last Updated Dt/Tm: 05/06/2022 12:17 ?SPECIMEN DESCRIPTION : BLOODSPECIAL REQUESTS : CRITICAL VALUE CALLED AND VERIFIED BY READBACK FOR: GRAM POS RODS TO S1, ? EN [id number] AT 2136 ON 05/07 BY [id number] : STAPHYLOCOCCUS EPIDERMIDIS ??SUSCEPTIBILITY TESTING NOT ROUTINELY ? PERFORMED ON THIS ISOLATE. Single isolates of coagulase negative ? Staphylococcus, Micrococcus sp., Bacillus sp., Corynebacterium sp. (or ? Diptheroids), Cutibacterium (formerly Propionibacterium) acnes and ?Viridans group streptococci could be skin contaminates. Multiple ? isolates of these organisms are more likely to be significant. ?Staphylococcus epidermidis was identified by multi-plex PCRREPORT STATUS : FINAL 05/09/2022 ? 30??minutes spent on discharge * Watson MIRANDA, Ghulam: PERFORM Event Display: Discharge/Transfer Note Hospital Authored Date: Patient agreed??to home O2 evaluation, he will require 2 L of??O2 on discharge it has been arranged * Kori Nunes RN: VERIFY, PERFORM, SIGN Event Display: Case Management Discharge Plan Authored Date: Patient: ABDIRAHMAN LEON Age: 57 years Sex: Male : 1965 Associated Diagnoses: None Author: Kori Nunes RN Discharge Plan Case Management Discharge Plan : Case Management Discharge Plan Data 05/10/2022 10:45 EDT Discharge Level of Care at Discharge Homehealth/VNA Discharge VNA/Hospice/Home Care [facility] [phone] Name of Agency #1 [facility] Name of Agency #1 [facility] Service Categories #1 Correction Service Comments #1 The VNA will call you 1-2 days after discharge to setup your appt. If you do not hear from them, please call them at [phone] Service Categories #2 Oxygen Therapy Service Comments #2 Pulmonary Rehab has set you up with home o2 through [facility]. Please follow the instuctions provided to you by them 05/10/2022 10:29 EDT Discharge Medical Equipment Companies [facility] 05/07/2022 11:21 EST Discharge Medical Equipment [employer] [place] * Tracey Saucedo RN: PERFORM Event Display: Patient Education/Instruction Authored Date: [id number] Inpatient Adult Discharge Instructions [address] [address] Name: ABDIRAHMAN LEON : 1965 Visit: 05/05/2022 22:11:00 Current Date: 05/10/2022 09:56 Account: [id number] Inpatient Adult Discharge Instructions We would like to thank you for allowing us to assist you with your healthcare needs. The following includes patient education materials and information regarding your injury/illness. Our entire staffstrives to provide an excellent experience for our patients and their families. PLEASE ENSURE YOU FOLLOW-UP PER THE INSTRUCTIONS BELOW! ?? YOUR OPINION IS IMPORTANT TO US! Please complete the survey you may receive by mail or email. Your feedback will be used to make improvements to the healthcare experiences of our patients and their families. Surveys are administered by [employer] ?? If further treatment with your primary care physician or another doctor is recommended, it is important for you to keep the appointment. Call your primary care physician or return to the Emergency Department immediately if your condition worsens, fails to improve, or new symptoms develop. If you need to find a doctor, you can call [facility] for a referral at [phone] or toll free at [phone]) or log in to [email or web address].. ?? You can view and manage your care through the patient portal or by using a health care esther of your choosing. [employer] is a website that allows you to securely view your medical information including your hospital discharge summary, office visit summaries, medications and follow-up visits. You can also request appointments, renew medications, and request access to your medical information using a health care esther of your choosing, or just ask a question. You can enroll at [email or web address] or register during your next office visit. You have been discharged from [facility], Patient Care Unit: S1. If you have any questions regarding these instructions after you leave, please call us and we will be happy to assist you. [facility] Your Care Team Attending Physician Watson MIRANDA, Ghulam Consulting Providers Kendall MIRANDA, Marissa Woodard MD, Pierre Jacobson Discharging Providers Watson MIRANDA, Ghulam Reason for Admission from home, fever x 1 day, T max 102.4, increased weakness. on oral chemo - last dose today. Your Diagnosis Acute respiratory failure with hypoxemia Tests Performed Below is a partial list of the tests performed during your hospitalization. You may have had other tests and procedures not included in this list. Please discuss all test results with your provider. ABG Blood Urea Nitrogen BUN Calcium Ionized Calcium Level CBC CBC w/ Differential Comprehensive Metabolic Panel COVID-19 (2019 Novel Coronavirus) PCR COVID-19, RSV, and Flu A/B, Rapid PCR Creatinine D Dimer Electrolytes Glucose Level GLUCOSE POC Hepatic Function Panel HOLD GREEN TUBE Ionized Calcium Lactate Level Lytes Magnesium Level Mg Level MRSA PCR Nasal Swab MYCOPLASMA PNEUMONIAE IGM Phosphorus Level UA Urinalysis w/hold for Urine Culture Urine Legionella Antigen Urine Protein/Creatinine Ratio Urine Sodium CT Angio Chest CT Soft Tissue Neck W/ Contrast Portable Chest XR Chest 2 Views Frontal and Lat Primary Care Provider Brandon MIRANDA, [facility] Advance Directive Health Care Proxy on File Yes - Health Care Proxy Discharge Vitals Temperature: 98.3 DegF Height: 175 cm Pulse Rate: 80 bpm Weight: 115.4 kg Respiratory Rate: 16 br/min Body Mass Index:??37.68 kg/m2??Critical Systolic Blood Pressure: 113 mm Hg Body surface area: 2.37 Diastolic Blood Pressure: 74 mm Hg ?? Oxygen Saturation:??90 %??Low ?? Studies Pending All tests and labs ordered during this hospital stay have been completed unless listed below. Please discuss all pending results with your provider listed above in these instructions. ?? Add On Lab Order Basic Metabolic Panel Blood Culture Blood Culture #2 CBC COVID-19 (2019 Novel Coronavirus) PCR Magnesium Level (Mg Level) Wound Superficial Culture W/ Gram Smear (Superficial Wound Culture W/ Gram Smear) What to do next Instructions From Your Doctor Discharge Orders Discharge Medications ABDIRAHMAN LEON :1965 Visit Date:05/05/2022 Medications: Please continue your medications until treatment is completed or stopped by your provider. Medications not listed below should be discontinued. Discuss any questions related to medications with your provider. What How Much When Why Instructions Next Dose New Amoxicillin-Clavulanate (Augmentin 875 mg-125 mg oral tablet) 1 tab(s) Oral Every 12 hours Duration: 5 Days Pickup at [facility]/pharmacy #2339 05/10 Changed Diltiazem (diltiazem 120 mg/ 24 hours oral capsule, extended release) 1 capsule Oral Daily Duration: 30 Days Pickup at [facility]/pharmacy #2339 05/11 Unchanged Aspirin (aspirin 81 mg oral delayed release tablet) 1 tab(s) Oral Daily 05/11 Unchanged Atorvastatin (atorvastatin 20 mg oral tablet) 1 tab(s) Oral Daily 05/11 Unchanged dabrafenib (dabrafenib 75 mg oral capsule) 2 capsule Oral Twice a day 05/10 afternoon Unchanged Durable Medical Equipment (Freestyle Lancets) See instructions Diabetes Use to check glucose once daily or as instructed by phsician ?? Unchanged Durable Medical Equipment (Freestyle Lite Monitor) See instructions Check glucose once daily or as directed by physician ?? Unchanged Durable Medical Equipment (Freestyle Test Strips) See instructions Use to check glucose once daily or as directed by physician ?? Unchanged Durable Medical Equipment (Home Blood Pressure Monitor) See instructions Large blood pressure cuff ?? Unchanged Metformin (metFORMIN 1000 mg oral tablet) 1 tab(s) Oral Twice a day 05/10 afternoon Unchanged Omeprazole (omeprazole 20 mg oral enteric coated capsule) See instructions TAKE 1 CAPSULE BY MOUTH DAILY BEFORE A MEAL X30 DAYS ?? 05/10 Unchanged trametinib (trametinib 2 mg oral tablet) 1 tab(s) Oral Daily At least one hour before or two hours after a meal ?? 05/11 Pharmacy Information [facility]/pharmacy #[id number]: [address] [place] [id number] [phone] ?? What How Much When Comments Stop Taking Azithromycin (Azithromycin 5 Day Dose Pack 250 mg oral tablet) 1 pack/packet Oral Once as directed on package labeling ?? Stop Taking galcanezumab (Emgality Prefilled Syringe 100 mg/ mL subcutaneous solution) 300 Milligram Subcutaneous Injection Every 28 days Stop Taking Ibuprofen (ibuprofen 600 mg oral tablet) 1 tab(s) Oral Every 8 hours as needed for NEEDED FOR MODERATE PAIN FOR Duration: 30 Days Stop Taking Loperamide (loperamide 2 mg oral capsule) 2 capsule Oral Every 4 hours not to exceed 8 capsules, or 16 mg, in 24 hours after each loose stool ?? Stop Taking Losartan (losartan 50 mg oral tablet) 1 tab(s) Oral Daily Stop Taking Miscellaneous Rx (FREESTYLE LITE TEST STRIP) See instructions USE TO CHECK GLUCOSE ONCE DAILY OR DIRECTED BY PHYSICIAN ?? Stop Taking PEG Electrolyte Solution (NuLYTELY with Flavor Packs oral powder for reconstitution) See instructions Drink 240mL every 15-20 minutes until first half is gone. ??Repeat 6 hours prior to procedure. ?? Stop Taking PROCHLORperazine (prochlorperazine 5 mg oral tablet) 1 tab(s) Oral Every 6 hours as needed for Nausea & Vomiting may cause drowsiness ?? Stop Taking Sumatriptan (SUMAtriptan 100 mg oral tablet) 1 tab(s) Oral Daily as needed for for migraine headache may repeat dose after 2 hours up to a maximum of 2 ?? Test Results Below is a partial list of the most recent Laboratory test results done prior to this discharge. You may have had other tests and procedures not included in this list. Please discuss all test resultswith your provider. ABG (05/07/2022) ???pH - 7.46???pCO2 - 30 mm Hg???pO2 - 63 mm Hg???Bicarbonate, Estimated - 21 mmol/L???Specimen Type - Blood Gas - ARTERIAL???Percent O2 (FIO2) - 40 Blood Urea Nitrogen (05/07/2022) ???BUN - 19 mg/dL BUN (05/10/2022) ???BUN - 19 mg/dL Calcium Ionized (05/05/2022) ???Calcium, Ionized pH Corrected - 1.28 mmol/L Calcium Level (05/10/2022) ???Calcium - 9.4 mg/dL CBC (05/10/2022) ???WBC - 4.2 k/mm3???RBC - 3.55 m/mm3???Hgb - 9.6 Gm/dL???Hct - 30.8 %???MCV - 86.8 femtoliters???MCH - 27.0 pg???MCHC - 31.2 g/dL???Platelet Count - 129 k/mm3???RDW-SD - 45.5 femtoliters???MPV - 11.3 femtoliters???Nucleated RBC (Automated) - 0.0 #/100 WBC'S???Abs. NRBC - 0.0 k/mm3 CBC w/ Differential (05/07/2022) ???WBC - 7.4 k/mm3???RBC - 3.88 m/mm3???Hgb - 10.8 Gm/dL???Hct - 33.5 %???MCV - 86.3 femtoliters???MCH - 27.8 pg???MCHC - 32.2 g/dL???Platelet Count - 219 k/mm3???RDW-SD - 42.8 femtoliters???MPV - 9.9 femtoliters???Nucleated RBC (Automated) - 0.0 #/100 WBC'S???Abs. NRBC - 0.0 k/mm3???Abs. Neut - 6.6 k/mm3???Abs. Lymph - 0.6 k/mm3???Abs. [place] - 0.2 k/mm3???Abs. Eo - 0.0 k/mm3???Abs. Baso - 0.0 k/mm3???Neut % - 89.5 %???Lymph % - 7.4 %???[place] % - 2.6 %???Eos % - 0.0 %???Baso % - 0.1 %???Imm Gran - 0.4 %???Abs. Imm Gran - 0.0 k/mm3 Comprehensive Metabolic Panel (05/06/2022) ???Sodium - 134 mmol/L???Potassium - 4.1 mmol/L???Chloride - 98 mmol/L???Bicarbonate Level - 24 mmol/L???Anion Gap - 12???Glucose Level - 130 mg/dL???BUN - 16 mg/dL???Creatinine-Blood - 1.0 mg/dL???Estimated GFR Creatinine - 87 ML/MIN/1.73 M2???Calcium - 9.7 mg/dL???Protein, Total - 6.7 Gm/dL???[place] min - 4.0 Gm/dL???AG Ratio - 1.5???Alkaline Phosphatase - 103 units/L???AST (SGOT) - 26 units/L???ALT (SGPT) - 35 units/L???Bilirubin, Total - 0.4 mg/dL COVID-19 (2019 Novel Coronavirus) PCR (05/06/2022) ???COVID-19 PCR Specimen Source - NASAL???COVID-19 PCR Result - NEGATIVE COVID-19, RSV, and Flu A/B, Rapid PCR (05/05/2022) ???Influenza A PCR - NEGATIVE???Influenza B PCR - NEGATIVE???RSV PCR - NEGATIVE???COVID-19 PCR Specimen Source - NASAL???COVID-19 PCR Result - NEGATIVE Creatinine (05/10/2022) ???Creatinine-Blood - 1.2 mg/dL???Estimated GFR Creatinine - 70 ML/MIN/1.73 M2 D Dimer (05/05/2022) ???D-Dimer - 0.98 mg/L FEU Electrolytes (05/10/2022) ???Sodium - 135 mmol/L???Potassium - 4.0 mmol/L???Chloride - 101 mmol/L???Bicarbonate Level - 24 mmol/L???Anion Gap - 10 Glucose Level (05/10/2022) ???Glucose Level - 119 mg/dL GLUCOSE POC (05/10/2022) ???Glucose, POC - 121 mg/dL Hepatic Function Panel (05/05/2022) ???Protein, Total - 7.4 Gm/dL???Albumin - 4.4 Gm/dL???Alkaline Phosphatase - 114 units/L???AST (SGOT) - 23 units/L? ?ALT (SGPT) - 32 units/L? ?Bilirubin, Total - 0.3 mg/dL? ?Bilirubin, Direct - <0.2 mg/dL???Bilirubin, Indirect - Direct bilirubin is less than the measureable limit. Therefore, indirect HOLD GREEN TUBE (05/05/2022) ???Hold Green Top - SPECIMEN DISCARDED AFTER 1 WEEK Ionized Calcium (05/08/2022) ???Calcium, Ionized pH Corrected - ACTUAL MEASURED IONIZED CALCIUM IS 1.20 Lactate Level (05/06/2022) ???Lactate - 1.4 mmol/L Lytes (05/08/2022) ???Sodium - 137 mmol/L???Potassium - 4.6 mmol/L???Chloride - 100 mmol/L???Bicarbonate Level - 19 mmol/L???Anion Gap - 18 Magnesium Level (05/08/2022) ???Magnesium - 2.0 mg/dL Mg Level (05/09/2022) ???Magnesium - 2.0 mg/dL MRSA PCR Nasal Swab (05/06/2022) ???MRSA PCR Result - Negative, MRSA target DNA not detected.???S Aureus PCR Result - Negative, SA target DNA not detected. MYCOPLASMA PNEUMONIAE IGM (05/05/2022) ? ?Mycoplasma pneumoniae, IgM - <770 Phosphorus Level (05/09/2022) ???Phosphorus - 2.2 mg/dL UA (05/08/2022) ???Appear/Color, Urine - YELLOW???Specific Plain, Urine - 1.012???pH, Urine - 6.0???Albumin, Urine - 1+???Glucose, Urine - NEGATIVE???Ketones, Urine - NEGATIVE???Bilirubin, Urine - NEGATIVE???Hemoglobin, Urine - 3+???Nitrite, Urine - NEGATIVE???Leukocyte, Urine - NEGATIVE???Urobilinogen - 2 mg/dL???WBC's, Urine - 4 /HPF???RBC's, Urine - 3 /HPF???Bacteria - SLIGHT???Amorphous Crystals - MODERATE???Mucus - SLIGHT Urinalysis w/hold for Urine Culture (05/05/2022) ? ?Appear/Color, Urine - YELLOW? ?Specific Plain, Urine - >1.050? ?pH, Urine - 6.0? ?Albumin, Urine - TRACE???Glucose, Urine - NEGATIVE???Ketones, Urine - NEGATIVE???Bilirubin, Urine - NEGATIVE???Hemoglobin, Urine - NEGATIVE???Nitrite, Urine - NEGATIVE???Leukocyte, Urine - NEGATIVE???Urobilinogen - NORMAL? ?WBC's, Urine - 1 /HPF? ?RBC's, Urine - 2 /HPF? ?Bacteria - SLIGHT? ?Squamous Epith - <1 /HPF???Mucus - SLIGHT???Hold Urine Culture - Testing available 48 hours from time of collection. Urine Legionella Antigen (05/06/2022) ???Legionella pneumophila Antigen - NEGATIVE Urine Protein/Creatinine Ratio (05/08/2022) ???Protein, Total Urine Random - 68 mg/dL???TP/Cr Ratio - 0.83???Creatinine, Urine - 81.7 mg/dL Urine Sodium (05/08/2022) ???Sodium, Urine Random - 44 mmol/L Immunizations This Visit Not Given Vaccine Commentsinfluenza virus vaccine, inactivated Patient Refuses Allergies (NKA means No Known Allergies) NKA Problems Active Problems??(9) Cluster headache?? Diabetes?? Elevated cholesterol with high triglycerides?? GERD (gastroesophageal reflux disease)?? HTN (hypertension)?? Hyperlipidemia?? Severe obesity (BMI 35.0-39.9) with comorbidity?? Tobacco use?? Tubular adenoma of colon?? Education Materials Below is the list of Educational Leaflet Providered with your Discharge Instructions. Valuables and Belongings I fully understand and agree that [facility] accepts no responsibility for all my personal property including clothing, toilet articles, radios, jewelry, dentures, hearing aids, rings, money, or any other property that is in my possession or is brought to me after admission. I understand certain valuables may be placed in a hospital safe for a short period of time. I understand that the hospital is not liable for loss or damage due to accident, fire, or other natural occurrence while said property is in the safe. I accept full responsibility for any personal property that I keep with me, and will not hold the hospital responsible in case of loss or disappearance. I acknowledge that i have been encouraged to send valuables and belongings home. ?? Date for Pt to Sign Valuables/Belongings: 05/06/22 23:17:00 ?? Other Discharge Information ? Case Management Discharge Plan?? Discharge Plan?? Discharge Medical Equipment [employer]: [employer] ?? Pulmonary Rehab Status?? Pulmonary Rehab Discharge Status?? Patient Going Home on Oxygen: Yes Portable unit required: Yes Oxygen Device used at Home: Nasal cannula Liter flow: 3 LPM Oxygen Use Duration: Continuous Respiratory Rate: 16 br/min Discharge Medical Equipment [employer]: [employer] Home care instructions: Call company when you get home., An appointment has been scheduled with a pulmonary nurse. Nurse Communication (Pulmonary Rehab): You will be contacted to have your supplemental oxgyen needsre-evaluated in a few weeks at [address] [facility] ??[place] ? Common Emergency Awareness Tips IS IT A STROKE? Act FAST and Check for these signs: FACE Does the face look uneven? ARM Does one arm drift down? SPEECH Does their speech sound strange? TIME Call at any sign of stroke ?? Heart Attack Signs Chest discomfort: Most heart attacks involve discomfort in the center of the chest and lasts more than a few minutes, or goes away and comes back. It can feel like uncomfortable pressure, squeezing, fullness or pain. Discomfort in upper body: Symptoms can include pain or discomfort in one or both arms, back, neck, jaw or stomach. Shortness of breath: With or without discomfort. Other signs: Breaking out in a cold sweat, nausea, or lightheaded. Remember, MINUTES DO MATTER. If you experience any of these heart attack warning signs, call to get immediate medical attention! ?? Smoking can increase your chances of developing chronic health problems and can cause harmful effects to other family members in your house. If you smoke, you are strongly encouraged to quit. Please call [facility] at [phone] or 7-758-691LocalEats ([phone]) or log in to [email or web address] for referrals to smoking cessation programs. ?? The National Suicide Prevention Hotline is available 20/09 if you or someone you know needs to find a reason to keep living. By calling 8-383-738-iLink (1682) you'll be connected to a skilled, trained counselor at a crisis center in your area. INPATIENT DISCHARGE INSTRUCTIONS SIGNATURE ABDIARHMAN JAIMES Location:[facility] Registration Date and Time:05/05/2022 22:11 [facility] Primary Care Physician: [facility], ABDIRAHMAN GONGORA, have received the above patient education materials/instructions and have verbalized understanding. If ambulance or transport services are being used I further acknowledge being given a choice of service. ?? If you need to contact me, please call me at this number: . 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 History: Fever. Shortness of breath. Findings: Frontal and lateral views of the chest are compared to a prior study dated 12/10/2021. The cardiac and mediastinal silhouettes are within normal limits. The lungs are clear with the exception of scar at the left lung base. Mamillation of the right hemidiaphragm is seen. The osseous andsoft tissue structures are unremarkable. Impression: There is no acute cardiopulmonary disease. WSN: [id number] Ordering Physician: Garry Denton Dictated By: Hafsa Owens MD Dictated Date/Time: 05/05/22 4:53 pm Reviewed By: Hafsa Owens MD Signed By: Hafsa Owens MD Signed Date/Time: 05/05/22 4:53 pm Transcribed By: CHRISTINA Transcribed Date/Time: 05/05/22 4:52 pm * CARMINE Wells S: TRANSCRIBE Tam Partida MD: MODIFY Event Display: Addendum Authored Date: [id number] Addendum: CT Soft Tissue Neck W/ Contrast INDICATION/CLINICAL QUESTION: Hx of Present Illness: patient coming from home with 1 day fevers, vomiting, and worsening SOB. Pt reports baseline SOB 2 2 chemo txt. On oral chemo - last taken 3 8; Reason: Abscess Inflammation; Clinical Question(s): Abscess; Order Comment: / Abscess. TECHNIQUE: Spiral CT neck with IV contrast formatted in 3 planes. 100 cc of Omnipaque 300 was administered intravenously. Weight-based protocol using automatic tube modulation was used to optimize exposure parameters. Total DLP 434.86 COMPARISON: None FINDINGS: Field Investigator View Findings, Lines and Tubes: None. Intracranial structures: Visualized portions are unremarkable. Orbits: Visualized portions are unremarkable. Paranasal sinuses and mastoids: Visualized portions are clear. Mucosal surfaces: Mucosal surfaces appear normal and symmetric, including the pharynx, larynx, and visualized portions of the upper trachea and esophagus. Superficial and deep neck spaces: No mass, fluid collection, or inflammatory change. Cervical lymph nodes: Normal in size and morphology. Salivary glands: The right parotid gland is larger than the left with slightly increased enhancement and adjacent stranding. Bilateral submandibular glands are unremarkable. Thyroid gland: Normal CT appearance Vascular structures: Unremarkable. Upper chest: The upper lungs are clear. The upper mediastinum is unremarkable. Bones and teeth: No acute abnormalities. IMPRESSION: Likely mild right parotitis. No abscess formation. WSN: [id number] Ordering Physician: Garry Denton Dictated By: Tam Partida MD Dictated Date/Time: 05/05/22 9:46 pm Reviewed By: Tam Partida MD Signed By: Tam Partida MD Signed Date/Time: 05/05/22 9:46 pm Transcribed By: CHRISTINA Transcribed Date/Time: 05/05/22 9:40 pm CTA Chest vessels W contrast IV * BHSPowerscribe , CIS S: TRANSCTam Archer MD: VERIFY Event Display: Result: Authored Date: EXAMINATION: CT Angio Chest INDICATION: Hx of Present Illness: patient coming from home with 1 day fevers, vomiting, and worsening SOB. pt reports baseline SOB 2 2 chemo tx. on oral chemo - last taken 3 8; Reason: Other:; PE suspected, Intermediate prob, positive D- dimer,; Clinical Question(s): Pulmonary Embolism TECHNIQUE: Spiral CTA of the chest was performed after rapid IV contrast administration without cardiac gating, triggered by an NITIN on the main pulmonary artery. Images are formatted in multiple planes using 2-D multiplanar and 3-D maximum intensity projection. 100 cc of Omnipaque 300 was administered intravenously. Weight-based protocol using automatic tube modulation was used to optimize exposure parameters. CTDIvol Body: 10.90 mGy, DLP Body: 839 mGy*cm. COMPARISONS: 11/16/2021. ANGIOGRAPHIC FINDINGS: No pulmonary embolism to the subsegmental level. Normal caliber pulmonary arteries. No acute aortic abnormality seen on this study performed without cardiac gating. NON-ANGIOGRAPHIC FINDINGS: Field Investigator View Findings, Lines and Tubes: None. Trachea and Airways: Patent without evidence of tracheal or endobronchial lesion. Lungs and Pleura: Bibasilar atelectasis. No effusion or pneumothorax. Mediastinum and ann: No mass or hematoma. No mediastinal or hilar lymphadenopathy. No esophageal abnormality. Heart: Heart is normal in size. No pericardial effusion. Chest Wall Soft Tissues: Normal. Diaphragm and upper abdomen: No significant abnormality. Bones: No acute abnormality. IMPRESSION: No evidence of pulmonary embolism. Bibasilar atelectasis. WSN: [id number] Ordering Physician: Garry Denton Dictated By: Tam Partida MD Dictated Date/Time: 05/05/22 6:24 pm Reviewed By: Tam Partida MD Signed By: Tam Partida MD Signed Date/Time: 05/05/22 6:24 pm Transcribed By: CHRISTINA Transcribed Date/Time: 05/05/22 6:15 pm Portable XR Chest Views * MANOJSPowerscmaxibe , CIS S: TRANSCRIBE Willam Mckeon MD: VERIFY Event Display: Result: Authored Date: [id number] Chest Portable Reason: COPD; : COMPARISON: May 05, 2022 FINDINGS: LINES AND TUBES: None. LUNGS AND PLEURA: Worsening patchy right basilar airspace disease and linear atelectasis in the left lower lobe. Trace right pleural effusion. No pneumothorax. HEART, MEDIASTINUM AND ANN: Heart is normal in size. Normal mediastinal and hilar contour. BONES AND SOFT TISSUES: No acute abnormality. IMPRESSION: Right lower lobe atelectasis/infiltrate. Streaky subsegmental atelectasis in the left lower lobe. WSN: [id number] Ordering Physician: Krystal Li Dictated By: Willam Mckeon MD Dictated Date/Time: 05/07/22 6:12 pm Reviewed By: Willam Mckeon MD Signed By: Willam Mckeon MD Signed Date/Time: 05/07/22 6:12 pm Transcribed By: CSAnjum Transcribed Date/Time: 05/07/22 6:[address] Neck W contrast IV * MANOJSPowerscribe , CIS S: TRANSCRICarlos Alberto Ocampo MD S: VERIFY Event Display: Result: Authored Date: [id number] CT Soft Tissue Neck W/ Contrast INDICATION/CLINICAL QUESTION: Hx of Present Illness: patient coming from home with 1 day fevers, vomiting, and worsening SOB. pt reports baseline SOB 2 2 chemo tx. on oral chemo - last taken 3 8; Reason: Abscess Inflammation; Clinical Question(s): Abscess; Order Comment: / Abscess. TECHNIQUE: Spiral CT neck with IV contrast formatted in 3 planes. cc of was administered intravenously. Weight-based protocol using automatic tube modulation was used to optimize exposure parameters. COMPARISON: FINDINGS: Field Investigator View Findings, Lines and Tubes: None. Intracranial structures: Visualized portions are unremarkable. Orbits: Visualized portions are unremarkable. Paranasal sinuses and mastoids: Visualized portions are clear. Mucosal surfaces: Mucosal surfaces appear normal and symmetric, including the pharynx, larynx, and visualized portions of the upper trachea and esophagus. Superficial and deep neck spaces: No mass, fluid collection, or inflammatory change. Cervical lymph nodes: Normal in size and morphology. Salivary glands: The parotid glands and submandibular glands are normal. Thyroid gland: Normal CT appearance Vascular structures: Unremarkable. Upper chest: The upper lungs are clear. The upper mediastinum is unremarkable. Bones and teeth: No acute abnormalities. IMPRESSION: Unremarkable neck CT. WSN: [id number] Ordering Physician: Garry Denton Dictated By: Carlos Alberto Yuan MD Dictated Date/Time: 05/05/22 9:36 pm Reviewed By: Carlos Alberto Yuan MD Signed By: Carlos Alberto Yuan MD Signed Date/Time: 05/05/22 9:36 pm Transcribed By: CSAnjum Transcribed Date/Time: 05/05/22 9:33 pm Patient Care team information Care Team Personnel Name: Tarah Carbajal RN Position: S RN Member Role: Primary Care Nurse Name: Aubrey Taylor MD Position: [facility] Primary Care Physician Member Role: PCP Address: Address: [address] [place] [address] [address] [place] [address]- Name: Maricruz Vinson RN Position: [facility] RN Member Role: Primary Care Nurse Name: Melodie Hampton Position: [facility] Onco RN Member Role: Primary Care Nurse Name: Emeka Patel MD Position: [facility] Renal MD Member Role: Lifetime Consulting Physician Address: Address: [address] [place] [address] [address] [facility], [place] [address]- Name: Cate FUENTES Attending Position: [facility] ED Medicine MD Name: Ange Bradley Position: [facility] ED RN W/OE and Tasks Member Role: Patient Care Provider Name: Jennifer Higgins Position: [facility] ED TA [facility] Name: Zuri Ackerman RN Position: [facility] ED RN W/OE and Tasks Member Role: Patient Care Provider Name: Xiao Sawyer Position: [facility] ED OA Charge Care Team Related Persons Name: ELIJAH MARIA Address: home [address] [place] [address] Name: ABDIRAHMAN LEON Name: JONATHAN LEON Address: home [address] [place], [place]
--- OUTSIDE RECORDS SUMMARY | 2023-09-21 20:46 | XMS_ITS | Continuity of Care Document ---
Author Organization [facility] Address [address] [place] [address]- Care Team Providers Care Spare Fixer Name Role Phone Brandon MIRANDA, [facility] Primary Care Physician Encounter [facility] [place] Date(s): 11/27/21 - 01/10/22 [facility] [address] [place] [address]- Attending Physician: Not on Staff, Attending MD [...] capsule, 1 Refills, Maintenance, 11/20/21 19:17:00 EDT, [facility]/pharmacy #[id number], 193, cm, 09/25/21 8:45:00 EDT, Height Start Date: 11/20/21 Stop Date: 05/19/22 Status: Ordered Emgality Prefilled Syringe 100 mg/mL subcutaneous solution = 300 mg, Subcutaneous Injection, Every 28 days, # 3 kit, 5 Refills, Maintenance, 05/05/21 11:56:00EST, Solution, [facility], Partial fill upon patient [...] 10/26/21 8:03:00 EDT, Route to Pharmacy Electronically, [facility] STORE [id number], robert Ramírez, 09/25/21 8:45:00 EDT, Height Start Date: 10/26/21 Stop Date: 11/25/21 Status: Ordered losartan 50 mg oral tablet 75 mg, 1.5, tablet, By Mouth, Daily, # 135 tablet, Refills 3, Tot. Refills 3, Maintenance, 12/30/2212:55:00 EDT, Route to Pharmacy Electronically, [facility]/pharmacy #[id number], Partial fill upon patient request if the prescription is for a schedule II opioid d... Start Date: 12/30/21 Stop Date: 12/25/22 Status: Ordered metFORMIN 1000 mg oral tablet 1 tablet = 1,000 mg, By Mouth, 2 times a day, # 60 tablet, 5 Refills, Maintenance, 01/13/21 10:41:00 EST, Tablet, [facility]/pharmacy #[id number], Partial fill upon patient request if the prescription is for a schedule II opioid drug., 193robert, 01/13/21 10:15:00 E... Start Date: 01/13/21 Status: Ordered NuLYTELY with Flavor Packs oral powder for reconstitution See Instructions, Drink 240mL every 15-20 minutes until first half is gone. Repeat 6 hours prior toprocedure., # 4,000 mL, 0 Refills, Maintenance, 03/19/21 12:55:00 EST, [facility]/pharmacy #[id number], Partial fill upon patient request if the prescription is fo... Start Date: 03/19/21 Status: Ordered omeprazole 20 mg oral enteric coated capsule See Instructions, TAKE 1 CAPSULE BY MOUTH DAILY BEFORE A MEAL X30 DAYS, # 90 capsule, 1 Refills, Maintenance, 11/20/21 19:18:00 EDT, [facility]/pharmacy #[id number], PATIENT NEEDS TO CALL [...] 16:46:00 EST, 05/05/21 16:45:00 EST, Tablet, [facility], 193, cm, 05/05/21 11:20:... [...] Team Personnel Name: Aubrey Taylor MD Position: [facility] Primary Care Physician Member Role: PCP Address: Address: [address] [place] [address] Name: Tarah Schmitt RN Position: [facility] RN Member Role: Primary Care Nurse Name: Maricruz Vinson RN Position: S RN Member Role: Primary Care Nurse Name: Melodie Hampton Position: [facility] Onco RN Member Role: Primary Care Nurse Care Team Related Persons Name: CROWLEONARDE Address: home [address] [place] [address] Name: ABDIRAHMAN LEON Name: JONATHAN LEON Address: home [address] [place] [address]
--- OUTSIDE RECORDS SUMMARY | 2023-09-21 20:46 | XMS_ITS | Continuity of Care Document ---
Author Organization [facility] Address [address] [place] [address]- Care Team Providers Care Fishing Line Winding Machine Operator Name Role Phone Brandon MIRANDA, [facility] Primary Care Physician ( [phone] [place] [facility] 08/05/20 - 10/02/20 [facility] [address] [place] [address]- Attending Physician: Aubrey Taylor MD Allergies, Adverse [...] 10:07:00 EDT, Route to Pharmacy Electronically, [facility]/pharmacy #[id number], 193, cm, 07/18/20 9:23:00 EDT, Height, 125, kg, 12/12/18 13:42:00 EDT, Dry Weight Start Date: 07/18/20 Stop Date: 07/13/21 Status: Ordered Home Blood Pressure Monitor See Instructions, # 1 each, Maintenance, Large blood pressure cuff, 07/18/20 10:14:00 EDT, Supply Start Date: 07/18/20 Status: Ordered losartan 25 mg oral tablet 25 mg, 1, tablet, By Mouth, Daily, # 30 tablet, Refills 6, Tot. Refills 6, Maintenance, 07/18/20 10:06:00 EDT, Route to Pharmacy Electronically, [facility]/pharmacy #[id number], Partial fill upon patient request [...]
--- OUTSIDE RECORDS SUMMARY | 2023-09-21 20:46 | XMS_ITS | Continuity of Care Document ---
Author Organization [facility] Address Unknown Care Team Providers Care Supervising Airplane Pilot Name Role Phone Aubrey Taylor MD Primary Care Physician Encounter [facility] [place] Date(s): 06/09/21 - 08/22/21 [facility] Attending Physician: Becky Kemp Admitting Physician: Becky Kemp Referring Physician: Aubrey Taylor MD Allergies, Adverse Reactions, Alerts No Known Allergies Immunizations Given and Recorded Vaccine Date Status Refusal Reason SARS-CoV-2 (COVID-19) mRNA BNT-162b2 vac 08/13/20 Recorded tetanus/diphtheria/pertussis, acel(Tdap) 12/27/18 Given tetanus-diphtheria toxoids (Td) 12/01/11 Recorded Medications atorvastatin 20 mg oral tablet 1 tablet = 20 mg, By Mouth, Daily, # 90 tablet, 3 Refills, Maintenance, 05/15/21 10:02:00 EDT, Tablet, [facility]/pharmacy #[id number], Partial fill upon patient request if the [...] 01/13/21 10:41:00 EST, Route to Pharmacy Electronically, [facility]/pharmacy #[id number], 193, cm, 01/13/21 10:15:00 EST, Height Start Date: 01/13/21 Stop Date: 01/08/22 Status: Ordered Emgality Prefilled Syringe 100 mg/mL subcutaneous solution = 300 mg, Subcutaneous Injection, Every 28 days, # 3 kit, 5 Refills, Maintenance, 05/05/21 11:56:00EST, Solution, [facility], Partial fill upon [...] 06/23/21 9:03:00 EDT, Route to Pharmacy Electronically, [facility]/pharmacy #[id number], Partial fill upon patient request if the prescription is for a schedule II opioid drug.... Start Date: 06/23/21 Stop Date: 10/21/21 Status: Ordered metFORMIN 1000 mg oral tablet 1 tablet = 1,000 mg, By Mouth, 2 times a day, # 60 tablet, 5 Refills, Maintenance, 01/13/21 10:41:00 EST, Tablet, [facility]/pharmacy #[id number], Partial fill upon patient [...] 02/08/23 16:46:00 EST, 05/05/21 16:45:00 EST, Tablet, [facility], 193, cm, 05/05/21 [...]
--- OUTSIDE RECORDS SUMMARY | 2023-09-21 20:47 | XMS_ITS | Continuity of Care Document ---
Author Organization [facility] Address [address] [place] [address]- Care Team Providers Care Tailman Name Role Phone Brandon MIRANDA, [facility] Primary Care Physician [place] [facility] [place] Date(s): 06/13/19 - 06/23/19 [facility] [address] [place] [address]- [facility] Attending Physician: Ashley Craft Admitting Physician: Ashley [...]
--- OUTSIDE RECORDS SUMMARY | 2023-09-21 20:47 | XMS_ITS | Continuity of Care Document ---
Author Organization [facility] Address [address] [place] [address]- Care Team Providers Care Accounting Intern Name Role Phone Brandon MIRANDA, [facility] Primary Care Physician [place] [facility] [place] Date(s): 09/10/22 - 10/10/22 [facility] [address] [place] [address]- Allergies, Adverse Reactions, Alerts No Known Allergies [...] tablet, 3 Refills, Maintenance, 03/16/22 12:18:00 EST, [id number], 193, cm, 03/12/22 10:49:00 EST, Height, 107, [...] Refills, Maintenance, 06/16/22 13:19:00 EDT, CD Capsule, [facility]/pharmacy #[id number], Partial fill upon patient request if the prescription is for a schedule II opi... Start Date: 06/16/22 Stop Date: 09/14/22 Status: Ordered diltiazem 120 mg/24 hours oral capsule, extended release 120 mg, 1, capsule, By Mouth, Daily, # 30 capsule, Refills 0, Tot. Refills 0, Maintenance, :52:00 EDT, Route to Pharmacy Electronically, [facility]/pharmacy #[id number], Partial fill upon patient request [...] 90 capsule, 0 Refills, Maintenance, 05/21/22 16:20:00EDT, [facility]/pharmacy #[id number], Partial fill upon patient request if the prescription is for a schedule IIopioid drug., 175, cm, 05/19/22 9:32:00 EDT, Height... Start Date: 05/21/22 Status: Ordered losartan 50 mg oral tablet 75 mg, 1.5, tablet, By Mouth, Daily, # 45 tablet, Refills 5, Tot. Refills 5, Maintenance, 07/06/22 15:32:00 EDT, Route to Pharmacy Electronically, [facility]/pharmacy #[id number], Partial fill upon patient request if the prescription is for a schedule II opioid dr... Start Date: 07/06/22 Stop Date: 01/02/23 Status: Ordered metFORMIN 1000 mg oral tablet 1 tablet, By Mouth, 2 times a day, # 60 tablet, 2 Refills, Maintenance, 07/13/22 11:11:00 EDT, [facility]/pharmacy #[id number], 175, cm, 06/04/22 8:29:00 EDT, Height, 109, kg, 06/04/22 8:29:00 EDT, Dry Weight Start Date: 07/13/22 Status: Ordered omeprazole 20 mg oral enteric coated capsule See Instructions, TAKE 1 CAPSULE BY MOUTH DAILY BEFORE A MEAL X30 DAYS, # 90 capsule, 1 Refills, Maintenance, 07/16/22 11:48:00 EDT, [facility]/pharmacy #[id number], PATIENT NEEDS TO CALL OFFICE [...] tablet, 11 Refills, Maintenance, 06/14/22 9:12:00 EDT, [facility]/pharmacy #[id number], Partial fill upon patient request [...] Primary Care Member Role: PCP Address: Address: [address] [place] [address] [address] [place] [address]- [place] Name: Maricruz Vinson RN Position: S RN Member Role: Primary Care Nurse Name: Melodie Hampton Position: [facility] Onco RN Member Role: Primary Care Nurse Name: Emeka Patel MD Position: [facility] Renal MD Member Role: Lifetime Consulting Physician Address: Address: [address] [facility], [place] [address]- [place] Name: Kevin Cool RN Position: S RN Member Role: Primary Care Nurse Care Team Related Persons Name: ELIJAH MARIA Address: home [address] [place] [address] Name: ABDIRAHMAN LEON Name: JONATHAN LEON Address: home [address] [place] [address]
--- OUTSIDE RECORDS SUMMARY | 2023-09-21 20:47 | XMS_ITS | Continuity of Care Document ---
Author Organization [facility] Address [address] [place] [address]- Care Team Providers Care Production Control Technologist Name Role Phone Brandon MIRANDA, Aubrey Primary Care Physician ( [phone] Encounter 05/11/22 - 06/23/22 [facility] [address] [place] [address]- Discharge Disposition: [facility] Allergies, Adverse Reactions, Alerts No Known Allergies Immunizations Given and Recorded Vaccine Date Status Refusal Reason SARS-CoV-2 (COVID-19) mRNA BNT-162b2 vac 08/13/20 Recorded SARS-CoV-2 (COVID-19) mRNA BNT-162y4 vac 07/23/20 Recorded tetanus/diphtheria/pertussis, acel(Tdap) 12/27/18 Given [...] tablet, 3 Refills, Maintenance, 03/16/22 12:18:00 EST, [id number], 193, cm, 03/12/22 10:49:00 EST, Height, 107, [...] Maintenance, 06/16/22 13:19:00 EDT, CD Capsule, [facility]/pharmacy #[id number], Partial fill upon patient request if the prescription is for a schedule II opi... Start Date: 06/16/22 Stop Date: 09/14/22 Status: Ordered diltiazem 120 mg/24 hours oral capsule, extended release 120 mg, 1, capsule, By Mouth, Daily, # 30 capsule, Refills 0, Tot. Refills 0, Maintenance, 239:52:00 EDT, Route to Pharmacy Electronically, [facility]/pharmacy #[id number], Partial fill upon patient request [...] 90 capsule, 0 Refills, Maintenance, 05/21/22 16:20:00EDT, [id number], Partial fill upon patient request [...] 5 Refills, Maintenance, 01/13/22 9:33:00 EST, [facility] ST[facility] [id number], 193, cm, 01/01/22 9:25:00 EDT, Height, 110.2, [...] 11 Refills, Maintenance, 06/14/22 9:12:00 EDT, [facility]/pharmacy #[id number], Partial fill upon patient request [...] Care Nurse Name: Aubrey Taylor MD Position: [facility] Primary Care Physician Member Role: PCP Address: Address: [address] [place] [address] [address] [place] [address]- Name: Maricruz Vinson RN Position: S RN Member Role: Primary Care Nurse Name: Melodie Hampton Position: [facility] Onco RN Member Role: Primary Care Nurse Name: Emeka Patel MD Position: [facility] Renal MD Member Role: Lifetime Consulting Physician Address: Address: [address] [place] [address] [address] [facility], [place] [address]- Name: Silvina HANNAH, Kevin Position: S RN Member Role: Primary Care Nurse Care Team Related Persons Name: ELIJAH MARIA Address: home [address] [place] [address] Name: ABDIRAHMAN LEON Name: JONATHAN LEON Address: home [address] [place] [address]
--- OUTSIDE RECORDS SUMMARY | 2023-09-21 20:47 | XMS_ITS | Continuity of Care Document ---
Author Organization [facility] Address [address] [place] [address]- Care Team Providers Care Under Trimmer Name Role Phone Brandon MIRANDA, [facility] Primary Care Physician Encounter [facility] [place] Date(s): 08/18/20 - 10/03/20 [facility] [address] [place] [address]- Attending Physician: Aubrey Taylor MD Allergies, Adverse [...] 07/18/20 10:07:00 EDT, Route to Pharmacy Electronically, [facility]/pharmacy #[id number], 193, cm, 07/18/20 9:23:00 [...] 07/18/20 10:06:00 EDT, Route to Pharmacy Electronically, [facility]/pharmacy #[id number], Partial fill upon patient [...]
--- OUTSIDE RECORDS SUMMARY | 2023-09-21 20:47 | XMS_ITS | Continuity of Care Document ---
Author Organization [facility] Address [address] [place] [address]- Care Team Providers Care Weld Inspector Name Role Phone Brandon MIRANDA, [facility] Primary Care Physician ( [phone] Encounter [facility] [place] Date(s): 07/17/21 - 07/24/21 [facility] [address] [place] [address]- Encounter Diagnosis Cluster headache(Discharge Diagnosis) - 07/17/21 GERD (gastroesophageal reflux disease)(Discharge Diagnosis) - 07/17/21 HTN (hypertension)(Discharge Diagnosis) - 07/17/21 Tobacco use(Discharge Diagnosis) - 07/17/21 Attending Physician: Brandon MIRANDA, [facility] Allergies, Adverse Reactions, Alerts No Known Allergies Immunizations Given and Recorded Vaccine Date Status Refusal Reason SARS-CoV-2 (COVID-19) mRNA BNT-162b2 vac 08/13/20 Recorded tetanus/diphtheria/pertussis, acel(Tdap) 12/27/18 Given tetanus-diphtheria toxoids (Td) 12/01/11 Recorded Medications atorvastatin 20 mg oral tablet 1 tablet = 20 mg, By Mouth, Daily, # 90 tablet, 3 Refills, Maintenance, 05/15/21 10:02:00 EDT, Tablet, [id number], Partial fill upon patient request if the [...] 01/13/21 10:41:00 EST, Route to Pharmacy Electronically, [facility]/pharmacy #[id number], 193, cm, 01/13/21 10:15:00 EST, Height Start Date: 01/13/21 Stop Date: 01/08/22 Status: Ordered Emgality Prefilled Syringe 100 mg/mL subcutaneous solution = 300 mg, Subcutaneous Injection, Every 28 days, # 3 kit, 5 Refills, Maintenance, 05/05/21 11:56:00EST, Solution, [facility], Partial fill upon patient request [...] 07/17/21 16:04:00 EDT, Route to Pharmacy Electronically, [facility]/pharmacy #[id number], 193, cm, 06/29... Start Date: 07/17/21 Stop Date: 08/16/21 Status: Ordered losartan 50 mg oral tablet 50 mg, 1, tablet, By Mouth, Daily, # 30 tablet, Refills 3, Tot. Refills 3, Maintenance, 06/23/21 9:03:00 EDT, Route to Pharmacy Electronically, [facility]/pharmacy #[id number], Partial fill upon patient request if the prescription is for a schedule II opioid drug.... Start Date: 06/23/21 Stop Date: 10/21/21 Status: Ordered metFORMIN 1000 mg oral tablet 1 tablet = 1,000 mg, By Mouth, 2 times a day, # 60 tablet, 5 Refills, Maintenance, 01/13/21 10:41:00 EST, Tablet, [facility]/pharmacy #[id number], Partial fill upon patient request if the prescription is for a schedule II opioid drug., 193, cm, 01/13/21 10:15:00 E... Start Date: 01/13/21 Status: Ordered NuLYTELY with Flavor Packs oral powder for reconstitution See Instructions, Drink 240mL every 15-20 minutes until first half is gone. Repeat 6 hours prior toprocedure., # 4,000 mL, 0 Refills, Maintenance, 03/19/21 12:55:00 EST, [facility]/pharmacy #[id number], Partial fill upon patient request if the prescription is fo... Start Date: 03/19/21 Status: Ordered omeprazole 20 mg oral enteric coated capsule 1 capsule = 20 mg, By Mouth, Daily, before a meal, # 30 capsule, 11 Refills, Maintenance, 01/13/21 10:41:00 EST, EC Capsule, [facility]/pharmacy #[id number], 193, cm, 01/13/21 10:15:00 EST, Height Start Date: 01/13/21 Stop Date: 01/08/22 Status: Ordered SUMAtriptan 100 mg oral tablet 1 tablet = 100 mg, By Mouth, Daily, PRN for migraine headache, may repeat dose after 2 hours up to a maximum of 2, # 9 tablet, 0 Refills, Acute 02/08/23 16:46:00 EST, 05/05/21 16:45:00 EST, Tablet, [facility], 193, cm, 05/05/21 11:20:... Start [...] inical Service Informant Cluster headache Discharge Diagnosis 07/17/21 GERD (gastroesophagea l reflux disease) Discharge Diagnosis 07/17/21 HTN (hypertension) Discharge Diagnosis 07/17/21 Tobacco use Discharge Diagnosis 07/17/21 Vital Signs Most recent to oldest [Reference Range]: 1 Height 193 cm (07/17/21 3:31 PM) Weight 110.3 kg (07/17/21 3:31 PM) Body Mass Index [18.5-24.99] 29.61 *H* (07/17/21 3:31 PM) Social History Social History Type Response Smoking Status 10 or more cigarette s (1/2 pack or more)/day in last 30 days entered on: 01/12/19 Sex
--- OUTSIDE RECORDS SUMMARY | 2023-09-21 20:47 | XMS_ITS | Continuity of Care Document ---
Author Organization [facility] Address [address] [place] [address]- Care Team Providers Care Emergency Room Orderly Name Role Phone Brandon MIRANDA, [facility] Primary Care Physician Encounter [facility] [place] Date(s): 06/16/22 - 07/16/22 [facility] [address] [place] [address]- Allergies, Adverse Reactions, Alerts No Known Allergies [...] tablet, 3 Refills, Maintenance, 03/16/22 12:18:00 EST, [id number], 193, cm, 03/12/22 10:49:00 EST, Height, 107, [...] Refills, Maintenance, 06/16/22 13:19:00 EDT, CD Capsule, [facility]/pharmacy #[id number], Partial fill upon patient request if the prescription is for a schedule II opi... Start Date: 06/16/22 Stop Date: 09/14/22 Status: Ordered diltiazem 120 mg/24 hours oral capsule, extended release 120 mg, 1, capsule, By Mouth, Daily, # 30 capsule, Refills 0, Tot. Refills 0, Maintenance, :52:00 EDT, Route to Pharmacy Electronically, [facility]/pharmacy #[id number], Partial fill upon patient request if [...] 90 capsule, 0 Refills, Maintenance, 05/21/22 16:20:00EDT, [facility]/pharmacy #[id number], Partial fill upon patient request if the prescription is for a schedule IIopioid drug., 175, cm, 05/19/22 9:32:00 EDT, Height... Start Date: 05/21/22 Status: Ordered losartan 50 mg oral tablet 75 mg, 1.5, tablet, By Mouth, Daily, # 45 tablet, Refills 5, Tot. Refills 5, Maintenance, 07/06/22 15:32:00 EDT, Route to Pharmacy Electronically, [facility]/pharmacy #[id number], Partial fill upon patient request if the prescription is for a schedule II opioid dr... Start Date: 07/06/22 Stop Date: 01/02/23 Status: Ordered metFORMIN 1000 mg oral tablet 1 tablet, By Mouth, 2 times a day, # 60 tablet, 2 Refills, Maintenance, 07/13/22 11:11:00 EDT, [facility]/pharmacy #[id number], 175, cm, 06/04/22 8:29:00 EDT, Height, 109, kg, 06/04/22 8:29:00 EDT, Dry Weight Start Date: 07/13/22 Status: Ordered omeprazole 20 mg oral enteric coated capsule See Instructions, TAKE 1 CAPSULE BY MOUTH DAILY BEFORE A MEAL X30 DAYS, # 90 capsule, 1 Refills, Maintenance, 07/16/22 11:48:00 EDT, [facility]/pharmacy #[id number], PATIENT NEEDS TO CALL OFFICE FOR [...] tablet, 11 Refills, Maintenance, 06/14/22 9:12:00 EDT, [facility]/pharmacy #[id number], Partial fill upon patient request if [...] Care Nurse Name: Aubrey Taylor MD Position: [facility] Primary Care Physician Member Role: PCP Address: Address: [address] [place] [address] [address] [place] [address]- Name: Maricruz Vinson RN Position: S RN Member Role: Primary Care Nurse Name: Melodie Hampton Position: [facility] Onco RN Member Role: Primary Care Nurse Name: Emeka Patel MD Position: [facility] Renal MD Member Role: Lifetime Consulting Physician Address: Address: [address] [facility] [place] [address]- Name: Kevin Cool RN Position: S RN Member Role: Primary Care Nurse Care Team Related Persons Name: ELIJAH MARIA Address: home [address] [place] [address] Name: ABDIRAHMAN LEON Name: JONATHAN LEON Address: home [address] [place] [address]
--- OUTSIDE RECORDS SUMMARY | 2023-09-21 20:47 | XMS_ITS | Continuity of Care Document ---
Author Organization [facility] Address [address] [place] [address]- Care Team Providers Care Television Repair Teacher Name Role Phone Brandon MIRANDA, [facility] Primary Care Physician [place] [facility] [place] Date(s): 04/06/23 - 05/06/23 [facility] [address] [place] [id number]- Allergies, Adverse Reactions, Alerts No Known Allergies Immunizations Given and Recorded Vaccine Date Status Refusal Reason SARS-CoV-2 (COVID-19) mRNA BNT-162b2 vac 08/13/20 Recorded SARS-CoV-2 (COVID-19) mRNA BNT-162u8 vac 07/23/20 Recorded tetanus/diphtheria/pertussis, acel(Tdap) 12/27/18 Given [...] tablet, 3 Refills, Maintenance, 03/16/22 12:18:00 EST, [id number], 193, cm, 03/12/22 10:49:00 EST, Height, 107, [...] 06/16/22 13:19:00 EDT, CD Capsule, [facility]/pharmacy #[id number], Partial fill upon patient request if the prescription is for a schedule II opi... Start Date: 06/16/22 Stop Date: 09/14/22 Status: Ordered diltiazem 120 mg/24 hours oral capsule, extended release 120 mg, 1, capsule, By Mouth, Daily, # 30 capsule, Refills 0, Tot. Refills 0, Maintenance, :52:00 EDT, Route to Pharmacy Electronically, [facility]/pharmacy #[id number], Partial fill upon [...] 01/07/23 17:06:00 EST, Route to Pharmacy Electronically, [id number], 175, cm, 06/04/22 8:29:00 EDT, Height, 109, kg, 06/04/22 8:29:00 E... Start Date: 01/07/23 Stop Date: 02/06/23 Status: Ordered indomethacin 25 mg oral capsule 1 capsule = 25 mg, By Mouth, 3 times a day, # 90 capsule, 0 Refills, Maintenance, 05/21/22 16:20:00EDT, [facility]/pharmacy #[id number], Partial fill upon patient request if the prescription is for a schedule IIopioid drug., 175, cm, 05/19/22 9:32:00 EDT, Height... Start Date: 05/21/22 Status: Ordered losartan 50 mg oral tablet 1.5 tablet, By Mouth, Daily, # 135 tablet, 5 Refills, Maintenance, 04/11/23 9:12:00 EST, [id number], 175, cm, 06/04/22 8:29:00 EDT, Height, 109, kg, 06/04/22 8:29:00 EDT, Dry Weight Start Date: 04/11/23 Status: Ordered metFORMIN 1000 mg oral tablet 1 tablet, By Mouth, 2 times a day, # 60 tablet, 5 Refills, Maintenance, 04/11/23 9:12:00 EST, [id number], 175, cm, 06/04/22 8:29:00 EDT, Height, 109, kg, 06/04/22 8:29:00 EDT, Dry Weight Start Date: 04/11/23 Status: Ordered omeprazole 20 mg oral enteric coated capsule See Instructions, TAKE 1 CAPSULE BY MOUTH DAILY BEFORE A MEAL X30 DAYS, # 90 capsule, 1 Refills, Maintenance, 07/16/22 11:48:00 EDT, [facility]/pharmacy #[id number], PATIENT NEEDS TO [...] Refills, Maintenance, 06/14/22 9:12:00 EDT, [facility]/pharmacy #[id number], Partial fill upon [...] Team Personnel Name: Tarah Carbajal RN Position: [facility] RN Member Role: Primary Care Nurse Name: Aubrey Taylor MD Position: [facility] Physician - Primary Care Member Role: PCP Address: Address: [address] [place] [address] [address] [place] [address]- Name: Maricruz Vinson RN Position: [facility] RN Member Role: Primary Care Nurse Name: Melodie Hampton Position: [facility] Onco RN Member Role: Primary Care Nurse Name: Emeka Patel MD Position: [facility] Renal MD Member Role: Lifetime Consulting Physician Address: Address: [address] [facility], [place] [address]- Name: Kevin Cool RN Position: [facility] RN Member Role: Primary Care Nurse Care Team Related Persons Name: ELIJAH MARIA Address: home [address] [place] [address] Name: ABDIRAHMAN LEON Name: JONATHAN LEON Address: home [address] [place] [address]
--- OUTSIDE RECORDS SUMMARY | 2023-09-21 20:47 | XMS_ITS | Continuity of Care Document ---
Author Organization [facility] Address Unknown Care Team Providers Care Thoroughbred Horse Farm Manager Name Role Phone Aubrey Taylor MD Primary Care Physician [place] [facility] [place] 06/05/21 - 07/05/21 [facility] Allergies, Adverse Reactions, Alerts No Known Allergies Immunizations Given and Recorded Vaccine Date Status Refusal Reason SARS-CoV-2 (COVID-19) mRNA BNT-162b2 vac 08/13/20 Recorded tetanus/diphtheria/pertussis, acel(Tdap) 12/27/18 Given tetanus-diphtheria toxoids (Td) 12/01/11 Recorded Medications atorvastatin 20 mg oral tablet 1 tablet = 20 mg, By Mouth, Daily, # 90 tablet, 3 Refills, Maintenance, 05/15/21 10:02:00 EDT, Tablet, [facility]/pharmacy #[id number], Partial fill upon patient [...] 01/13/21 10:41:00 EST, Route to Pharmacy Electronically, [facility]/pharmacy #[id number], 193, cm, 01/13/21 10:15:00 EST, Height Start Date: 01/13/21 Stop Date: 01/08/22 Status: Ordered Emgality Prefilled Syringe 100 mg/mL subcutaneous solution = 300 mg, Subcutaneous Injection, Every 28 days, # 3 kit, 5 Refills, Maintenance, 05/05/21 11:56:00EST, Solution, [facility], Partial fill upon patient [...] 02/23/21 11:18:00 EST, Route to Pharmacy Electronically, [facility]/pharmacy #[id number], Partial fill upon patient request if the prescription i... Start Date: 02/23/21 Status: Ordered losartan 50 mg oral tablet 50 mg, 1, tablet, By Mouth, Daily, # 30 tablet, Refills 3, Tot. Refills 3, Maintenance, 06/23/21 9:03:00 EDT, Route to Pharmacy Electronically, [facility]/pharmacy #[id number], Partial fill upon patient [...] 02/08/23 16:46:00 EST, 05/05/21 16:45:00 EST, Tablet, [facility], 193, cm, 05/05/21 11:20:... [...]
--- OUTSIDE RECORDS SUMMARY | 2023-09-21 20:47 | XMS_ITS | Continuity of Care Document ---
Author Organization [facility] Address [address], [address], [address] [place] [address]- Care Team Providers Care Demographic Analyst Name Role Phone Brandon MIRANDA, Aubrey Primary Care Physician En[place] [facility] [place] Date(s): 05/19/20 - 06/18/20 [facility] [address], [address], [address] [place] [id number] Attending Physician: Ashley Craft Admitting Physician: AdmtrAshley Referring Physician: Admtr, ArVasyl Allergies, Adverse Reactions, Alerts Substance Reaction Severity Status NKA Active Immunizations Given and Recorded Vaccine Date Status Refusal Reason tetanus/diphtheria/pertussis, acel(Tdap) 12/27/18 Given Medications diltiazem 180 mg/24 hours oral capsule, extended release 180 mg, 1, capsule, By Mouth, Daily, # 30 capsule, Refills 11, Tot. Refills 11, Maintenance, 01/09/20 10:49:00 EST, Route to Pharmacy Electronically, [facility]/pharmacy #[id number], 193, cm, 05/14/19 10:06:00 EDT, Height, 125, kg, 12/12/18 13:42:00 EDT, Dry Weight Start Date: 01/09/20 Stop Date: 01/03/21 Status: Ordered omeprazole 20 mg oral enteric coated capsule 1 capsule = 20 mg, By Mouth, 2 times a day, before a meal, # 60 capsule, 2 Refills, Maintenance, 01/09/20 10:42:00 EST, EC Capsule, [facility]/pharmacy #[id number], 193, cm, 05/14/19 10:06:00 EDT, [...] 06/27/20 15:24:00 EDT, 05/28/20 15:24:00 EDT, Tablet, [facility]/pharmacy #[id number], Partial fill upon patient request if the [...]
--- OUTSIDE RECORDS SUMMARY | 2023-09-21 20:47 | XMS_ITS | Continuity of Care Document ---
Author Organization [facility] Adult Address [address] [place] [address]- Care Team Providers Care Wire Annealer Name Role Phone Brandon MIRANDA, [facility] Primary Care Physician [place] [facility] [place]20 [facility] [address] [place] [address]- Attending Physician: Not on Staff, Attending MD Allergies, Adverse Reactions, Alerts Substance Reaction Severity Status NKA Active Immunizations Given and Recorded Vaccine Date Status Refusal Reason tetanus/diphtheria/pertussis, acel(Tdap) 12/27/18 Given tetanus-diphtheria toxoids (Td) 12/01/11 Recorded Medications diltiazem 180 mg/24 hours oral capsule, extended release 180 mg, 1, capsule, By Mouth, Daily, # 30 capsule, Refills 11, Tot. Refills 11, Maintenance, 07/18/20 10:07:00 EDT, Route to Pharmacy Electronically, [facility]/pharmacy #[id number], 193, cm, 07/18/20 9:23:00 EDT, [...] 07/18/20 10:06:00 EDT, Route to Pharmacy Electronically, [facility]/pharmacy #[id number], Partial fill upon patient request [...]
--- OUTSIDE RECORDS SUMMARY | 2023-09-21 20:47 | XMS_ITS | Continuity of Care Document ---
Author Organization [facility] Address Unknown Care Team Providers Care Outboard Motor Tester Name Role Phone Aubrey Taylor MD Primary Care Physician [place] [facility] [place](s): 07/23/21 - 08/22/21 [facility] Attending Physician: Ashley Craft Admitting Physician: Ashley Craft Referring Physician: Ashley Craft Allergies, Adverse Reactions, Alerts No Known Allergies [...] 10:41:00 EST, Route to Pharmacy Electronically, [facility]/pharmacy #[id number], 193, cm, 01/13/21 10:15:00 EST, Height Start Date: 01/13/21 Stop Date: 01/08/22 Status: Ordered Emgality Prefilled Syringe 100 mg/mL subcutaneous solution = 300 mg, Subcutaneous Injection, Every 28 days, # 3 kit, 5 Refills, Maintenance, 05/05/21 11:56:00EST, Solution, [facility], Partial fill upon patient request [...] 06/23/21 9:03:00 EDT, Route to Pharmacy Electronically, [facility]/pharmacy #[id number], Partial fill upon patient request if the [...] Refills, Maintenance, 01/13/21 10:41:00 EST, EC Capsule, [facility]/pharmacy #[id number], 193, cm, 01/13/21 10:15:00 EST, Height Start Date: 01/13/21 Stop Date: 01/08/22 Status: Ordered SUMAtriptan 100 mg oral tablet 1 tablet = 100 mg, By Mouth, Daily, PRN for migraine headache, may repeat dose after 2 hours up to a maximum of 2, # 9 tablet, 0 Refills, Acute 02/08/23 16:46:00 EST, 05/05/21 16:45:00 EST, Tablet, [facility], 193, cm, 05/05/21 11:20:... Start [...]
--- OUTSIDE RECORDS SUMMARY | 2023-09-21 20:47 | XMS_ITS | Continuity of Care Document ---
Author Organization [facility] Address [address] [place] [address]- Care Team Providers Care Early Intervention School Psychologist Name Role Phone Brandon MIRANDA, [facility] Primary Care Physician [place] [facility] [place]08[place]21 - 10/08/21 [facility] [address] [place] [address]- Allergies, Adverse Reactions, Alerts No Known Allergies [...] 01/13/21 10:41:00 EST, Route to Pharmacy Electronically, [facility]/pharmacy #[id number], 193, cm, 01/13/21 10:15:00 EST, Height Start Date: 01/13/21 Stop Date: 01/08/22 Status: Ordered Emgality Prefilled Syringe 100 mg/mL subcutaneous solution = 300 mg, Subcutaneous Injection, Every 28 days, # 3 kit, 5 Refills, Maintenance, 05/05/21 11:56:00EST, Solution, [facility], Partial fill upon patient [...] 09/01/21 13:55:00 EDT, Route to Pharmacy Electronically, [facility]/pharmacy #[id number], Partial fill upon patient request if the prescription is for a schedule II opioid drug... Start Date: 09/01/21 Stop Date: 12/30/21 Status: Ordered metFORMIN 1000 mg oral tablet 1 tablet = 1,000 mg, By Mouth, 2 times a day, # 60 tablet, 5 Refills, Maintenance, 01/13/21 10:41:00 EST, Tablet, [facility]/pharmacy #[id number], Partial fill upon patient request if the prescription is for a schedule II opioid drug., 193, cm, 01/13/21 10:15:00 E... Start Date: 01/13/21 Status: Ordered NuLYTELY with Flavor Packs oral powder for reconstitution See Instructions, Drink 240mL every 15-20 minutes until first half is gone. Repeat 6 hours prior toprocedure., # 4,000 mL, 0 Refills, Maintenance, 03/19/21 12:55:00 EST, [facility]/pharmacy #[id number], Partial fill upon patient request if the prescription is fo... Start Date: 03/19/21 Status: Ordered omeprazole 20 mg oral enteric coated capsule 1 capsule = 20 mg, By Mouth, Daily, before a meal, # 30 capsule, 11 Refills, Maintenance, 01/13/21 10:41:00 EST, EC Capsule, [facility]/pharmacy #[id number], 193, cm, 01/13/21 10:15:00 EST, Height Start Date: 01/13/21 Stop Date: 01/08/22 Status: Ordered SUMAtriptan 100 mg oral tablet 1 tablet = 100 mg, By Mouth, Daily, PRN for migraine headache, may repeat dose after 2 hours up to a maximum of 2, # 9 tablet, 0 Refills, Acute 02/08/23 16:46:00 EST, 05/05/21 16:45:00 EST, Tablet, [facility], 193, cm, 05/05/21 11:20:... [...]
--- OUTSIDE RECORDS SUMMARY | 2023-09-21 20:47 | XMS_ITS | Continuity of Care Document ---
Author Organization [facility] Address [address] [place] [address]- Care Team Providers Care Lighting Technician Name Role Phone Aubrey Taylor MD Primary Care Physician [place] [facility] [place] 02/04/21 - 02/11/21 [facility] [address] [place] [phone]- Encounter Diagnosis Rectal bleeding(Discharge Diagnosis) - 02/04/21 HTN (hypertension)(Discharge Diagnosis) - 02/04/21 Attending Physician: Aubrey Taylor MD Allergies, Adverse [...] 4 Refills, Maintenance, 01/13/21 10:36:00 EST, Tablet, [facility]/pharmacy #[id number], Partial fill upon patient request if [...] 02/04/21 16:26:00 EST, Route to Pharmacy Electronically, [facility]/pharmacy #[id number], Partial fill upon patient request if the prescriptio... Start Date: 02/04/21 Status: Ordered diltiazem 180 mg/24 hours oral capsule, extended release 180 mg, 1, capsule, By Mouth, Daily, for 30 days, # 30 capsule, Refills 11, Tot. Refills 11, Hard Stop 01/08/22 10:41:00 EST, 01/13/21 10:41:00 EST, Route to Pharmacy Electronically, [facility]/pharmacy #[id number], 193, cm, 01/13/21 10:15:00 EST, Height [...] 01/13/21 10:32:00 EST, Route to Pharmacy Electronically, [facility]/pharmacy #[id number], Partial fill upon patient request if the prescription i... Start Date: 01/13/21 Status: Ordered losartan 25 mg oral tablet 25 mg, 1, tablet, By Mouth, Daily, # 30 tablet, Refills 6, Tot. Refills 6, Maintenance, 01/13/21 10:41:00 EST, Route to Pharmacy Electronically, [facility]/pharmacy #[id number], Partial fill upon patient request if the prescription is for a schedule II opioid drug... Start Date: 01/13/21 Stop Date: 08/11/21 Status: Ordered metFORMIN 1000 mg oral tablet 1 tablet = 1,000 mg, By Mouth, 2 times a day, # 60 tablet, 5 Refills, Maintenance, 01/13/21 10:41:00 EST, Tablet, [facility]/pharmacy #[id number], Partial fill upon patient request if the prescription is for a schedule II opioid drug., 193, cm, 01/13/21 10:15:00 E... Start Date: 01/13/21 Status: Ordered omeprazole 20 mg oral enteric coated capsule 1 capsule = 20 mg, By Mouth, Daily, before a meal, # 30 capsule, 11 Refills, Maintenance, 01/13/21 10:41:00 EST, EC Capsule, [facility]/pharmacy #[id number], 193, cm, 01/13/21 10:15:00 EST, Height Start Date: 01/13/21 Stop Date: 01/08/22 Status: Ordered Preparation H 14%-74.9%-0.25% rectal ointment 1 application, Rectally, 2 times a day, PRN as needed for pain, for 10 days, # 57 Gm, 0 Refills, Acute 02/14/21 16:27:00 EST, 02/04/21 16:27:00 EST, Ointment, [facility]/pharmacy #[id number], Partial fill upon patient request if the prescription is for a schedule... Start Date: 02/04/21 Stop Date: 02/14/21 Status: Ordered Sumatriptan Once, 0 Refills, Maintenance, [...] Dates Health Status Cl inical Service Informant Rectal bleeding Discharge Diagnosis 02/04/21 HTN (hypertension) Discharge Diagnosis 02/04/21 Vital Signs Most recent to oldest [Reference Range]: 1 Height 193 cm (02/04/21 4:01 PM) Weight 120 kg (02/04/21 4:01 PM) Oxygen Saturation [94-100 %] 100 % (02/04/21 4:01 PM) Body Mass Index [18.5-24.99] 32.22 *>HHI* (02/04/21 4:01 PM) Blood Pressure [90-138/55-84 mm Hg] 154/ 78mm Hg *H* (02/04/21 4:01 PM) Mode of Delivery (Oxygen) Room air (02/04/21 4:01 PM) Blood pressure sites Arm, left (02/04/21 4:01 PM) Weight Obtained Via Standing scale (02/04/21 4:01 PM) Social History Social History Type Response Smoking Status 10 or more cigarette s (1/2 pack or more)/day in last 30 days entered on: 01/12/19 Sex
--- OUTSIDE RECORDS SUMMARY | 2023-09-21 20:47 | XMS_ITS | Continuity of Care Document ---
Author Organization [facility] Address [address] [place] [address]- Care Team Providers Care Rib Knitter Name Role Phone Aubrey Taylor MD Primary Care Physician [place] [facility] [place]20[place]21 [facility] [address] [place] [phone]- Encounter Diagnosis Type 2 diabetes mellitus, uncontrolled(Discharge Diagnosis) - 01/13/21 HTN (hypertension)(Discharge Diagnosis) - 01/13/21 Hyperlipidemia(Discharge Diagnosis) - 01/13/21 Obesity(Discharge Diagnosis) - 01/13/21 Attending Physician: Aubrey Taylor MD Allergies, Adverse [...] 4 Refills, Maintenance, 01/13/21 10:36:00 EST, Tablet, [facility]/pharmacy #[id number], Partial fill upon patient request if the prescription is for a schedule II opioid drug., 193, cm, 01/13/21 10:15:00 EST, Height Start Date: 01/13/21 Stop Date: 06/12/21 Status: Ordered diltiazem 180 mg/24 hours oral capsule, extended release 180 mg, 1, capsule, By Mouth, Daily, # 30 capsule, Refills 11, Tot. Refills 11, Maintenance, 01/13/21 10:41:00 EST, Route to Pharmacy Electronically, [facility]/pharmacy #[id number], 193, cm, 01/13/21 10:15:00 EST, Height [...] 01/13/21 10:32:00 EST, Route to Pharmacy Electronically, [facility]/pharmacy #[id number], Partial fill upon patient request if the prescription i... Start Date: 01/13/21 Status: Ordered losartan 25 mg oral tablet 25 mg, 1, tablet, By Mouth, Daily, # 30 tablet, Refills 6, Tot. Refills 6, Maintenance, 01/13/21 10:41:00 EST, Route to Pharmacy Electronically, [facility]/pharmacy #[id number], Partial fill upon patient request if the prescription is for a schedule II opioid drug... Start Date: 01/13/21 Stop Date: 08/11/21 Status: Ordered metFORMIN 1000 mg oral tablet 1 tablet = 1,000 mg, By Mouth, 2 times a day, # 60 tablet, 5 Refills, Maintenance, 01/13/21 10:41:00 EST, Tablet, [facility]/pharmacy #[id number], Partial fill upon patient request if the prescription is for a schedule II opioid drug., 193, cm, 01/13/21 10:15:00 E... Start Date: 01/13/21 Status: Ordered omeprazole 20 mg oral enteric coated capsule 1 capsule = 20 mg, By Mouth, Daily, before a meal, # 30 capsule, 11 Refills, Maintenance, 01/13/21 10:41:00 EST, EC Capsule, [facility]/pharmacy #[id number], 193, cm, 01/13/21 10:15:00 EST, Height [...] Type 2 diabetes mellitus, uncontrolled Discharge Diagnosis 01/13/21 HTN (hypertension) Discharge Diagnosis 01/13/21 Hyperlipidemia Discharge Diagnosis 01/13/21 Obesity Discharge Diagnosis 01/13/21 Vital Signs Most recent to oldest [Reference Range]: 1 2 Height 193 cm (01/13/21 11:10 AM) 193 cm (01/13/21 10:15 AM) Weight 117 kg (01/13/21 10:15 AM) Oxygen Saturation [94-100 %] 94 % (01/13/21 10:15 AM) Body Mass Index [18.5-24.99] 31.41 *>HHI* (01/13/21 10:15 AM) Blood Pressure [90-138/55-84 mm Hg] 135/ 80mm Hg (01/13/21 11:10 AM) 145/76mm Hg *H* (01/13/21 10:15 AM) Mode of Delivery (Oxygen) Room air (01/13/21 10:15 AM) Blood pressure sites Arm, left (01/13/21 10:15 AM) Weight Obtained Via Standing scale (01/13/21 10:15 AM) Social History Social History Type Response Smoking Status 10 or more cigarette s (1/2 pack or more)/day in last 30 days entered on: 01/12/19 Sex
--- OUTSIDE RECORDS SUMMARY | 2023-09-21 20:47 | XMS_ITS | Continuity of Care Document ---
Author Organization [facility] Address [address] [place] [address]- Care Team Providers Care Car Repairman Name Role Phone Brandon MIRANDA, [facility] Primary Care Physician ( [phone] Encounter [facility] [place] Date(s): 12/02/20 - 01/01/21 [facility] [address] [place] [address]- Attending Physician: Admyehuda, Ashley Admitting Physician: AdmtrAshley Referring Physician: Admtr, Ar8 Allergies, Adverse Reactions, Alerts Substance Reaction Severity Status NKA Active Immunizations Given and Recorded Vaccine Date Status Refusal Reason tetanus/diphtheria/pertussis, acel(Tdap) 12/27/18 Given tetanus-diphtheria toxoids (Td) 12/01/11 Recorded Medications diltiazem 180 mg/24 hours oral capsule, extended release 180 mg, 1, capsule, By Mouth, Daily, # 30 capsule, Refills 11, Tot. Refills 11, Maintenance, 07/18/20 10:07:00 EDT, Route to Pharmacy Electronically, [facility]/pharmacy #[id number], 193, cm, 07/18/20 9:23:00 EDT, [...] 12/02/20 13:02:00 EDT, Route to Pharmacy Electronically, [facility]/pharmacy #[id number], Partial fill upon patient request if the prescription i... Start Date: 12/02/20 Status: Ordered losartan 25 mg oral tablet 25 mg, 1, tablet, By Mouth, Daily, # 30 tablet, Refills 6, Tot. Refills 6, Maintenance, 07/18/20 10:06:00 EDT, Route to Pharmacy Electronically, [facility]/pharmacy #[id number], Partial fill upon patient request if the prescription is for a schedule II opioid drug... Start Date: 07/18/20 Stop Date: 02/13/21 Status: Ordered metFORMIN 1000 mg oral tablet 1 tablet = 1,000 mg, By Mouth, 2 times a day, # 60 tablet, 5 Refills, Maintenance, 12/02/20 13:01:00 EDT, Tablet, [facility]/pharmacy #[id number], Partial fill upon patient request if the prescription is for a schedule II opioid drug., 193, cm, 12/02/20 12:59:00 E... Start Date: 12/02/20 Status: Ordered omeprazole 20 mg oral enteric coated capsule 1 capsule = 20 mg, By Mouth, Daily, before a meal, # 30 capsule, 11 Refills, Maintenance, 07/22/20 9:34:00 EDT, EC Capsule, [facility]/pharmacy #[id number], 193, cm, 07/18/20 10:08:00 EDT, [...]
--- OUTSIDE RECORDS SUMMARY | 2023-09-21 20:47 | XMS_ITS | Continuity of Care Document ---
Author Organization [facility] Address [address] [place] [id number]- Care Team Providers Care Pen Maker Name Role Phone Aubrey Taylor MD Primary Care Physician ( [phone] Encounter [facility] [place] Date(s): 02/06/21 - 04/18/21 [facility] [address] [place] [id number]- Attending Physician: Pierre Hicks MD Admitting Physician: Pierre Hicks MD Referring Physician: Aubrey Taylor MD Allergies, Adverse Reactions, Alerts No Known Allergies Immunizations Given and Recorded Vaccine Date Status Refusal Reason SARS-CoV-2 (COVID-19) mRNA BNT-162b2 vac 08/13/20 Recorded tetanus/diphtheria/pertussis, acel(Tdap) 12/27/18 Given tetanus-diphtheria toxoids (Td) 12/01/11 Recorded Medications atorvastatin 20 mg oral tablet 1 tablet = 20 mg, By Mouth, Daily, # 30 tablet, 4 Refills, Maintenance, 01/13/21 10:36:00 EST, Tablet, [facility]/pharmacy #[id number], Partial fill upon patient [...] 02/04/21 16:26:00 EST, Route to Pharmacy Electronically, [facility]/pharmacy #[id number], Partial fill upon patient request if the prescriptio... Start Date: 02/04/21 Status: Ordered diltiazem 180 mg/24 hours oral capsule, extended release 180 mg, 1, capsule, By Mouth, Daily, for 30 days, # 30 capsule, Refills 11, Tot. Refills 11, Hard Stop 01/08/22 10:41:00 EST, 01/13/21 10:41:00 EST, Route to Pharmacy Electronically, [facility]/pharmacy #[id number], 193, cm, 01/13/21 10:15:00 [...] 02/23/21 11:18:00 EST, Route to Pharmacy Electronically, [facility]/pharmacy #[id number], Partial fill upon patient request if the prescription i... Start Date: 02/23/21 Status: Ordered ibuprofen 600 mg oral tablet 600 mg, 1, tablet, By Mouth, Every 8 hours, PRN, # 30 tablet, Refills 1, Tot. Refills 1, Maintenance, Pain , Moderate, 01/13/21 10:32:00 EST, Route to Pharmacy Electronically, [facility]/pharmacy #[id number], Partial fill upon patient [...] 5 Refills, Maintenance, 01/13/21 10:41:00 EST, Tablet, [facility]/pharmacy #[id number], Partial fill upon patient [...]
--- OUTSIDE RECORDS SUMMARY | 2023-09-21 20:47 | XMS_ITS | Continuity of Care Document ---
Author Organization [facility] Address [address] [place] [address]- Care Team Providers Care Grain Elevator Superintendent Name Role Phone Brandon MIRANDA, [facility] Primary Care Physician En[place] [facility] [place] Date(s): 04/05/22 - 05/05/22 [facility] [address] [place] [id number] Allergies, Adverse Reactions, Alerts No Known Allergies [...] Refills, Maintenance, 03/16/22 12:18:00 EST, [id number], 193, cm, 03/12/22 10:49:00 EST, Height, 107, kg, 02/16/22 11:18:00 EST, Dry Weight Start Date: 03/16/22 Status: Ordered Azithromycin 5 Day Dose Pack 250 mg oral tablet 1 pack/packet, By Mouth, Once, as directed on package labeling, # 6 tablet, 0 Refills, Soft Stop, 09/25/21 11:02:00 EDT, Tablet, [id number], Partial fill upon patient request if the [...] capsule, 1 Refills, Maintenance, 11/20/21 19:17:00 EDT, [facility]/pharmacy #[id number], 193, cm, 09/25/21 8:45:00 EDT, Height Start Date: 11/20/21 Stop Date: 05/19/22 Status: Ordered Emgality Prefilled Syringe 100 mg/mL subcutaneous solution = 300 mg, Subcutaneous Injection, Every 28 days, # 3 kit, 5 Refills, Maintenance, 05/05/21 11:56:00EST, Solution, [facility], Partial fill upon patient [...] 02/23/22 8:53:00 EST, Route to Pharmacy Electronically, [id number], 193, cm, 02/16/22 11:18:00 EST, Height, 107, kg, 02/16/22 11:18:00... Start Date: 02/23/22 Stop Date: 03/25/22 Status: Ordered loperamide 2 mg oral capsule 4 mg, 2, capsule, By Mouth, Every 4 hours, not to exceed 8 capsules, or 16 mg, in 24 hours after each loose stool, # 60 capsule, Refills 1, Tot. Refills 1, Maintenance, 03/12/22 10:33:00 EST, Route to Pharmacy Electronically, [facility]/pharmacy #[id number], Part... Start Date: 03/12/22 Status: Ordered losartan 50 mg oral tablet 1 tablet, By Mouth, Daily, # 90 tablet, 1 Refills, Maintenance, 01/13/22 9:33:00 EST, [id number], 193, cm, 01/01/22 9:25:00 EDT, Height, 110.2, kg, 01/01/22 9:25:00 EDT, Dry Weight Start Date: 01/13/22 Status: Ordered metFORMIN 1000 mg oral tablet 1 tablet, By Mouth, 2 times a day, # 60 tablet, 5 Refills, Maintenance, 01/13/22 9:33:00 EST, [id number], 193, cm, 01/01/22 9:25:00 EDT, Height, 110.2, kg, 01/01/22 9:25:00 EDT, Dry Weight Start Date: 01/13/22 Status: Ordered NuLYTELY with Flavor Packs oral powder for reconstitution See Instructions, Drink 240mL every 15-20 minutes until first half is gone. Repeat 6 hours prior toprocedure., # 4,000 mL, 0 Refills, Maintenance, 03/19/21 12:55:00 EST, [facility]/pharmacy #[id number], Partial fill upon patient request if the prescription is fo... Start Date: 03/19/21 Status: Ordered omeprazole 20 mg oral enteric coated capsule See Instructions, TAKE 1 CAPSULE BY MOUTH DAILY BEFORE A MEAL X30 DAYS, # 90 capsule, 1 Refills, Maintenance, 11/20/21 19:18:00 EDT, [facility]/pharmacy #[id number], PATIENT NEEDS TO CALL OFFICE FOR APPOINTMENT, 193, robert, 09/25/21 8:45:00 EDT, Height Start Date: 11/20/21 Status: Ordered prochlorperazine 5 mg oral tablet 1 tablet = 5 mg, By Mouth, Every 6 hours, PRN Nausea & Vomiting, may cause drowsiness, # 30 tablet, 0 Refills, Maintenance, 03/18/22 9:30:00 EST, [facility]/pharmacy #[id number], Partial fill [...] 02/08/23 16:46:00 EST, 05/05/21 16:45:00 EST, Tablet, [facility], 193, robert, 05/05/21 11:20:... Start [...] Care Nurse Name: Aubrey Taylor MD Position: [facility] Primary Care Physician Member Role: PCP Address: Address: [address] [place] [id number] Name: Maricruz Vinson RN Position: S RN Member Role: Primary Care Nurse Name: Melodie Hampton Position: [facility] Onco RN Member Role: Primary Care Nurse Care Team Related Persons Name: ELIJAH MARIA Address: home [address] Name: ABDIRAHMAN LEON Name: JONATHAN LEON Address: home [address] [place] [address]
--- OUTSIDE RECORDS SUMMARY | 2023-09-21 20:47 | XMS_ITS | Continuity of Care Document ---
Author Organization [facility] Address [address] [place] [address]- Care Team Providers Care Welfare Worker Name Role Phone Brandon MIRANDA, [facility] Primary Care Physician ( [phone] Encounter [facility] [place] Date(s): 01/11/20 - 02/10/20 [facility] [address] [place] [address]- Allergies, Adverse Reactions, Alerts Substance Reaction Severity Status NKA Active Immunizations Given and Recorded Vaccine Date Status Refusal Reason tetanus/diphtheria/pertussis, acel(Tdap) 12/27/18 Given Medications diltiazem 180 mg/24 hours oral capsule, extended release 180 mg, 1, capsule, By Mouth, Daily, # 30 capsule, Refills 11, Tot. Refills 11, Maintenance, 01/09/20 10:49:00 EST, Route to Pharmacy Electronically, [facility]/pharmacy #[id number], 193, cm, 05/14/19 10:06:00 EDT, Height, 125, kg, 12/12/18 13:42:00 EDT, Dry Weight Start Date: 01/09/20 Stop Date: 01/03/21 Status: Ordered omeprazole 20 mg oral enteric coated capsule 1 capsule = 20 mg, By Mouth, 2 times a day, before a meal, # 60 capsule, 2 Refills, Maintenance, 01/09/20 10:42:00 EST, EC Capsule, [facility]/pharmacy #[id number], 193, cm, 05/14/19 10:06:00 EDT, [...]
--- OUTSIDE RECORDS SUMMARY | 2023-09-21 20:47 | XMS_ITS | Continuity of Care Document ---
Author Organization [facility] Address Unknown Care Team Providers Care Labor Relations Analyst Name Role Phone Aubrey Taylor MD Primary Care Physician ( [phone] Encounter [facility] [place] Date(s): 07/06/21 - 08/05/21 [facility] Allergies, Adverse Reactions, Alerts No Known Allergies Immunizations Given and Recorded Vaccine Date Status Refusal Reason SARS-CoV-2 (COVID-19) mRNA BNT-162b2 vac 08/13/20 Recorded tetanus/diphtheria/pertussis, acel(Tdap) 12/27/18 Given tetanus-diphtheria toxoids (Td) 12/01/11 Recorded Medications atorvastatin 20 mg oral tablet 1 tablet = 20 mg, By Mouth, Daily, # 90 tablet, 3 Refills, Maintenance, 05/15/21 10:02:00 EDT, Tablet, [facility]/pharmacy #[id number], Partial fill upon patient request [...] 01/13/21 10:41:00 EST, Route to Pharmacy Electronically, [facility]/pharmacy #[id number], 193, cm, 01/13/21 10:15:00 EST, Height Start Date: 01/13/21 Stop Date: 01/08/22 Status: Ordered Emgality Prefilled Syringe 100 mg/mL subcutaneous solution = 300 mg, Subcutaneous Injection, Every 28 days, # 3 kit, 5 Refills, Maintenance, 05/05/21 11:56:00EST, Solution, [facility], Partial fill upon patient [...] 07/17/21 16:04:00 EDT, Route to Pharmacy Electronically, [facility]/pharmacy #[id number], 193, cm, 06/29... Start Date: 07/17/21 Stop Date: 08/16/21 Status: Ordered losartan 50 mg oral tablet 50 mg, 1, tablet, By Mouth, Daily, # 30 tablet, Refills 3, Tot. Refills 3, Maintenance, 06/23/21 9:03:00 EDT, Route to Pharmacy Electronically, [facility]/pharmacy #[id number], Partial fill upon patient request if the prescription is for a schedule II opioid drug.... Start Date: 06/23/21 Stop Date: 10/21/21 Status: Ordered metFORMIN 1000 mg oral tablet 1 tablet = 1,000 mg, By Mouth, 2 times a day, # 60 tablet, 5 Refills, Maintenance, 01/13/21 10:41:00 EST, Tablet, [facility]/pharmacy #[id number], Partial fill upon patient request if the prescription is for a schedule II opioid drug., 193, cm, 01/13/21 10:15:00 E... Start Date: 01/13/21 Status: Ordered NuLYTELY with Flavor Packs oral powder for reconstitution See Instructions, Drink 240mL every 15-20 minutes until first half is gone. Repeat 6 hours prior toprocedure., # 4,000 mL, 0 Refills, Maintenance, 03/19/21 12:55:00 EST, [facility]/pharmacy #[id number], Partial fill upon patient request if the prescription is fo... Start Date: 03/19/21 Status: Ordered omeprazole 20 mg oral enteric coated capsule 1 capsule = 20 mg, By Mouth, Daily, before a meal, # 30 capsule, 11 Refills, Maintenance, 01/13/21 10:41:00 EST, EC Capsule, [facility]/pharmacy #[id number], 193, cm, 01/13/21 10:15:00 EST, Height Start Date: 01/13/21 Stop Date: 01/08/22 Status: Ordered SUMAtriptan 100 mg oral tablet 1 tablet = 100 mg, By Mouth, Daily, PRN for migraine headache, may repeat dose after 2 hours up to a maximum of 2, # 9 tablet, 0 Refills, Acute 02/08/23 16:46:00 EST, 05/05/21 16:45:00 EST, Tablet, [facility], 193, cm, 05/05/21 11:20:... [...]
--- OUTSIDE RECORDS SUMMARY | 2023-09-21 20:47 | XMS_ITS | Continuity of Care Document ---
Author Organization [facility] Address [address] [place] [address], [address] [place] [address]- Care Team Providers Care Color Artist Name Role Phone Brandon MIRANDA, Aubrey Primary Care Physician Encounter [facility] [place] Date(s): 12/03/21 - 12/10/21 [facility] [address] [place] [address], [address] [place], [place] [address] Attending Physician: Bang Jeronimo DO Referring Physician: Aubrey Taylor MD Allergies, Adverse [...] capsule, 1 Refills, Maintenance, 11/20/21 19:17:00 EDT, [facility]/pharmacy #[id number], 193, cm, 09/25/21 8:45:00 EDT, Height Start Date: 11/20/21 Stop Date: 05/19/22 Status: Ordered Emgality Prefilled Syringe 100 mg/mL subcutaneous solution = 300 mg, Subcutaneous Injection, Every 28 days, # 3 kit, 5 Refills, Maintenance, 05/05/21 11:56:00EST, Solution, [facility], Partial fill upon patient [...] 10/26/21 8:03:00 EDT, Route to Pharmacy Electronically, [facility] STORE [id number], robert Ramírez, 09/25/21 8:45:00 EDT, Height Start Date: 10/26/21 Stop Date: 11/25/21 Status: Ordered losartan 50 mg oral tablet 75 mg, 1.5, tablet, By Mouth, Daily, # 90 tablet, Refills 1, Tot. Refills 1, Maintenance, 09/01/21 13:55:00 EDT, Route to Pharmacy Electronically, [facility]/pharmacy #[id number], Partial fill upon patient request if the prescription is for a schedule II opioid dr... Start Date: 09/01/21 Stop Date: 12/30/21 Status: Ordered metFORMIN 1000 mg oral tablet 1 tablet = 1,000 mg, By Mouth, 2 times a day, # 60 tablet, 5 Refills, Maintenance, 01/13/21 10:41:00 EST, Tablet, [facility]/pharmacy #[id number], Partial fill [...] mL, 0 Refills, Maintenance, 03/19/21 12:55:00 EST, [facility]/pharmacy #[id number], Partial fill upon patient request if the prescription is fo... Start Date: 03/19/21 Status: Ordered omeprazole 20 mg oral enteric coated capsule See Instructions, TAKE 1 CAPSULE BY MOUTH DAILY BEFORE A MEAL X30 DAYS, # 90 capsule, 1 Refills, Maintenance, 11/20/21 19:18:00 EDT, [facility]/pharmacy #[id number], PATIENT NEEDS TO CALL OFFICE FOR APPOINTMENT, Darrell robert, 09/25/21 8:45:00 EDT, Height Start Date: 11/20/21 Status: Ordered SUMAtriptan 100 mg oral tablet 1 tablet = 100 mg, By Mouth, Daily, PRN for migraine headache, may repeat dose after 2 hours up to a maximum of 2, # 9 tablet, 0 Refills, Acute 12/12/23 16:46:00 EST, 05/05/21 16:45:00 EST, Tablet, [facility], 193, cm, 05/05/21 11:20:... [...] oldest [Reference Range]: 1 Height 193 cm (12/03/21 9:32 AM) Weight 116.4 kg (12/03/21 9:32 AM) Oxygen Saturation [94-100 %] 95 % (12/03/21 9:32 AM) Pulse Rate [55-90 bpm] 73 bpm (12/03/21 9:32 AM) Body Mass Index [18.5-24.99 kg/m2] 31.25 kg/m2 *>HHI* (12/03/21 9:32 AM) Blood Pressure [90-138/55-84 mm Hg] 146/ 74mm Hg *H* (12/03/21 9:32 AM) Respiratory Rate [16-30 br/min] 16 br/mi n (12/03/21 9:32 AM) Temperature [96.8-100.4 DegF] 98.8 DegF (12/03/21 9:32 AM) Mode of Delivery (Oxygen) Room air (12/03/21 9:32 AM) Blood pressure sites Arm, right (12/03/21 9:32 AM) Temperature Route Temporal (12/03/21 9:32 AM) Weight Obtained Via Standing scale (12/03/21 9:32 AM) Social History Social History Type Response Smoking Status 5-9 cigarettes (betw een 1/4 to 1/2 pack)/day in last 30 days; Interested in cessation: Yes; Other: 5-6 CIG/D X 30 YEARS; entered on: 12/03/21 Sex Patient Care team information Personnel [facility]: [facility] Address: Address: [address] [place], [place] [address]
--- OUTSIDE RECORDS SUMMARY | 2023-09-21 20:47 | XMS_ITS | Continuity of Care Document ---
Author Organization [facility] Address [address] [place] [address]- Care Team Providers Care Manufacturing Maintenance Mechanic Name Role Phone Brandon MIRANDA, [facility] Primary Care Physician En[place] [facility] [place] Date(s): 11/27/20 - 12/27/20 [facility] [address] [place] [address]- Allergies, Adverse Reactions, Alerts Substance Reaction Severity Status NKA Active Immunizations Given and Recorded Vaccine Date Status Refusal Reason tetanus/diphtheria/pertussis, acel(Tdap) 12/27/18 Given tetanus-diphtheria toxoids (Td) 12/01/11 Recorded Medications diltiazem 180 mg/24 hours oral capsule, extended release 180 mg, 1, capsule, By Mouth, Daily, # 30 capsule, Refills 11, Tot. Refills 11, Maintenance, 07/18/20 10:07:00 EDT, Route to Pharmacy Electronically, [facility]/pharmacy #[id number], 193, cm, 07/18/20 9:23:00 EDT, [...] 13:02:00 EDT, Route to Pharmacy Electronically, [facility]/pharmacy #[id number], Partial fill upon patient request if the prescription i... Start Date: 12/02/20 Status: Ordered losartan 25 mg oral tablet 25 mg, 1, tablet, By Mouth, Daily, # 30 tablet, Refills 6, Tot. Refills 6, Maintenance, 07/18/20 10:06:00 EDT, Route to Pharmacy Electronically, [facility]/pharmacy #[id number], Partial fill upon patient request if the prescription is for a schedule II opioid drug... Start Date: 07/18/20 Stop Date: 02/13/21 Status: Ordered metFORMIN 1000 mg oral tablet 1 tablet = 1,000 mg, By Mouth, 2 times a day, # 60 tablet, 5 Refills, Maintenance, 12/02/20 13:01:00 EDT, Tablet, [facility]/pharmacy #[id number], Partial fill upon patient request [...]
--- OUTSIDE RECORDS SUMMARY | 2023-09-21 20:48 | XMS_ITS | Continuity of Care Document ---
Author Organization [facility] Address [address] [place] [address]- Care Team Providers Care Architectural Drafting Instructor Name Role Phone Brandon MIRANDA, [facility] Primary [facility] Phys[facility] [place] [facility] [place] 11/20/20 [facility] [address] [place] [address]- Allergies, Adverse Reactions, Alerts Substance Reaction Severity Status NKA Active Immunizations Given and Recorded Vaccine Date Status Refusal Reason tetanus/diphtheria/pertussis, acel(Tdap) 12/27/18 Given tetanus-diphtheria toxoids (Td) 12/01/11 Recorded Medications diltiazem 180 mg/24 hours oral capsule, extended release 180 mg, 1, capsule, By Mouth, Daily, # 30 capsule, Refills 11, Tot. Refills 11, Maintenance, 07/18/20 10:07:00 EDT, Route to Pharmacy Electronically, [facility]/pharmacy #[id number], 193, cm, 07/18/20 9:23:00 EDT, Height, [...] tablet, Refills 0, Tot. Refills 0, Acute 11/21/20 14:49:00 EDT, Pain , Moderate, 10/21/20 15:20:00 EDT, Route to Pharmacy Electronically, [facility]/pharmacy #[id number], Partial fill upon patient request if th... Start Date: 10/21/20 Stop Date: 11/21/20 Status: Ordered losartan 25 mg oral tablet 25 mg, 1, tablet, By Mouth, Daily, # 30 tablet, Refills 6, Tot. Refills 6, Maintenance, 07/18/20 10:06:00 EDT, [id number] Partial fill upon patient request if the prescription is for a schedule II opioid drug... Start Date: 07/18/20 Stop Date: 02/13/21 Status: Ordered omeprazole 20 mg oral enteric coated capsule 1 capsule = 20 mg, By Mouth, Daily, before a meal, # 30 capsule, 11 Refills, Maintenance, 07/22/20 9:34:00 EDT, EC Capsule, [facility]/pharmacy #[id number], 193, cm, 07/18/20 10:08:00 EDT, Height, [...]
--- OUTSIDE RECORDS SUMMARY | 2023-09-21 20:48 | XMS_ITS | Continuity of Care Document ---
Author Organization [facility] Address Unknown Care Team Providers Care Gum Sprayer Name Role Phone Aubrey Taylor MD Primary Care Physician Encounter [facility] [place] Date(s): 07/06/21 - 08/05/21 [facility] Attending Physician: Not on Staff, Attending MD Allergies, Adverse Reactions, Alerts No Known Allergies Immunizations Given and Recorded Vaccine Date Status Refusal Reason SARS-CoV-2 (COVID-19) mRNA BNT-162b2 vac 08/13/20 Recorded tetanus/diphtheria/pertussis, acel(Tdap) 12/27/18 Given tetanus-diphtheria toxoids (Td) 12/01/11 Recorded Medications atorvastatin 20 mg oral tablet 1 tablet = 20 mg, By Mouth, Daily, # 90 tablet, 3 Refills, Maintenance, 05/15/21 10:02:00 EDT, Tablet, [facility]/pharmacy #[id number], Partial fill upon patient request [...] 10:41:00 EST, Route to Pharmacy Electronically, [facility]/pharmacy #[id number], 193, cm, 01/13/21 10:15:00 EST, Height Start Date: 01/13/21 Stop Date: 01/08/22 Status: Ordered Emgality Prefilled Syringe 100 mg/mL subcutaneous solution = 300 mg, Subcutaneous Injection, Every 28 days, # 3 kit, 5 Refills, Maintenance, 05/05/21 11:56:00EST, Solution, [facility], Partial fill upon patient [...] 07/17/21 16:04:00 EDT, Route to Pharmacy Electronically, [facility]/pharmacy #[id number], 193, cm, 06/29... Start Date: 07/17/21 Stop Date: 08/16/21 Status: Ordered losartan 50 mg oral tablet 50 mg, 1, tablet, By Mouth, Daily, # 30 tablet, Refills 3, Tot. Refills 3, Maintenance, 06/23/21 9:03:00 EDT, Route to Pharmacy Electronically, [facility]/pharmacy #[id number], Partial fill upon patient request if the prescription is for a schedule II opioid drug.... Start Date: 06/23/21 Stop Date: 10/21/21 Status: Ordered metFORMIN 1000 mg oral tablet 1 tablet = 1,000 mg, By Mouth, 2 times a day, # 60 tablet, 5 Refills, Maintenance, 01/13/21 10:41:00 EST, Tablet, [facility]/pharmacy #[id number], Partial fill upon patient request if the prescription is for a schedule II opioid drug., 193, cm, 01/13/21 10:15:00 E... Start Date: 01/13/21 Status: Ordered NuLYTELY with Flavor Packs oral powder for reconstitution See Instructions, Drink 240mL every 15-20 minutes until first half is gone. Repeat 6 hours prior toprocedure., # 4,000 mL, 0 Refills, Maintenance, 03/19/21 12:55:00 EST, [facility]/pharmacy #[id number], Partial fill upon patient request if the prescription is fo... Start Date: 03/19/21 Status: Ordered omeprazole 20 mg oral enteric coated capsule 1 capsule = 20 mg, By Mouth, Daily, before a meal, # 30 capsule, 11 Refills, Maintenance, 01/13/21 10:41:00 EST, EC Capsule, [facility]/pharmacy #[id number], 193, cm, 01/13/21 10:15:00 EST, Height Start Date: 01/13/21 Stop Date: 01/08/22 Status: Ordered SUMAtriptan 100 mg oral tablet 1 tablet = 100 mg, By Mouth, Daily, PRN for migraine headache, may repeat dose after 2 hours up to a maximum of 2, # 9 tablet, 0 Refills, Acute 02/08/23 16:46:00 EST, 05/05/21 16:45:00 EST, Tablet, [facility], 193, cm, 05/05/21 11:20:... [...]
--- OUTSIDE RECORDS SUMMARY | 2023-09-21 20:48 | XMS_ITS | Continuity of Care Document ---
Author Organization [facility] Adult Address [address] [place] [address]- Care Team Providers Care Ict Analyst Name Role Phone Aubrey Taylor MD Primary Care Physician [place] [facility] [place](s): 04/07/20 - 04/14/20 [facility] Adult [address] [place] [id number]- Encounter Diagnosis Cluster headache(Discharge Diagnosis) - 04/07/20 Attending Physician: Aubrey Taylor MD Allergies, Adverse Reactions, Alerts Substance Reaction Severity Status NKA Active Immunizations Given and Recorded Vaccine Date Status Refusal Reason tetanus/diphtheria/pertussis, acel(Tdap) 12/27/18 Given Medications diltiazem 180 mg/24 hours oral capsule, extended release 180 mg, 1, capsule, By Mouth, Daily, # 30 capsule, Refills 11, Tot. Refills 11, Maintenance, 01/09/20 10:49:00 EST, Route to Pharmacy Electronically, [facility]/pharmacy #[id number], 193, cm, 05/14/19 10:06:00 EDT, Height, 125, kg, 12/12/18 13:42:00 EDT, Dry Weight Start Date: 01/09/20 Stop Date: 01/03/21 Status: Ordered ibuprofen 600 mg oral tablet 600 mg, 1, tablet, By Mouth, Every 8 hours, PRN, # 30 tablet, Refills 0, Tot. Refills 0, Acute 04/28/20 13:19:00 EST, Pain , Moderate, 03/31/20 13:19:00 EST, Route to Pharmacy Electronically, [facility]/pharmacy #[id number], Partial fill upon patient request if th... Start Date: 03/31/20 Stop Date: 04/28/20 Status: Ordered omeprazole 20 mg oral enteric coated capsule 1 capsule = 20 mg, By Mouth, 2 times a day, before a meal, # 60 capsule, 2 Refills, Maintenance, 01/09/20 10:42:00 EST, EC Capsule, [facility]/pharmacy #[id number], 193, cm, 05/14/19 10:06:00 EDT, Height, [...] inical Service Informant Cluster headache Discharge Diagnosis 04/07/20 Vital Signs Most recent to oldest [Reference Range]: 1 Height 193 cm (04/07/20 10:30 AM) Social History Social History Type Response Smoking Status 10 or more cigarette s (1/2 pack or more)/day in last 30 days entered on: 01/12/19 Sex
--- OUTSIDE RECORDS SUMMARY | 2023-09-21 20:48 | XMS_ITS | Continuity of Care Document ---
Author Organization [facility] Adult Address [address] [place] [address]- Care Team Providers Care Pharm Spec Name Role Phone Brandon MIRANDA, [facility] Primary Care Physician Encounter [facility] [place] Date(s): 09/25/21 - 10/25/21 [facility] Adult [address] [place] [address] Attending Physician: Admyehuda, Ashley Admitting Physician: AdmtrAshley [...] 01/13/21 10:41:00 EST, Route to Pharmacy Electronically, [facility]/pharmacy #[id number], 193, cm, 01/13/21 10:15:00 EST, Height Start Date: 01/13/21 Stop Date: 01/08/22 Status: Ordered Emgality Prefilled Syringe 100 mg/mL subcutaneous solution = 300 mg, Subcutaneous Injection, Every 28 days, # 3 kit, 5 Refills, Maintenance, 05/05/21 11:56:00EST, Solution, [facility], Partial fill upon patient [...] 09/01/21 13:55:00 EDT, Route to Pharmacy Electronically, [facility]/pharmacy #[id number], Partial fill upon patient request if the prescription is for a schedule II opioid drug... Start Date: 09/01/21 Stop Date: 12/30/21 Status: Ordered metFORMIN 1000 mg oral tablet 1 tablet = 1,000 mg, By Mouth, 2 times a day, # 60 tablet, 5 Refills, Maintenance, 01/13/21 10:41:00 EST, Tablet, [facility]/pharmacy #[id number], Partial fill upon patient request if the prescription is for a schedule II opioid drug., 193, cm, 01/13/21 10:15:00 E... Start Date: 01/13/21 Status: Ordered NuLYTELY with Flavor Packs oral powder for reconstitution See Instructions, Drink 240mL every 15-20 minutes until first half is gone. Repeat 6 hours prior toprocedure., # 4,000 mL, 0 Refills, Maintenance, 03/19/21 12:55:00 EST, [facility]/pharmacy #[id number], Partial fill upon patient request if the prescription is fo... Start Date: 03/19/21 Status: Ordered omeprazole 20 mg oral enteric coated capsule 1 capsule = 20 mg, By Mouth, Daily, before a meal, # 30 capsule, 11 Refills, Maintenance, 01/13/21 10:41:00 EST, EC Capsule, [facility]/pharmacy #[id number], 193, cm, 01/13/21 10:15:00 EST, Height Start Date: 01/13/21 Stop Date: 01/08/22 Status: Ordered SUMAtriptan 100 mg oral tablet 1 tablet = 100 mg, By Mouth, Daily, PRN for migraine headache, may repeat dose after 2 hours up to a maximum of 2, # 9 tablet, 0 Refills, Acute 02/08/23 16:46:00 EST, 05/05/21 16:45:00 EST, Tablet, [facility], 193, cm, 05/05/21 11:20:... [...] last 30 days entered on: 01/12/19 Sex Care Team Personnel Name: Brandon MIRANDA, Aubrey Address: [address] [place] [address] [address] [place], [place] [address]
--- OUTSIDE RECORDS SUMMARY | 2023-09-21 20:48 | XMS_ITS | Continuity of Care Document ---
Author Organization [facility] ter Address [address] [place] [address]- Care Team Providers Care Airway Traffic Controller Name Role Phone Aubrey Taylor MD Primary Care Physician ( [phone] [place] [facility] [place] Date(s): 04/22/21 - 04/22/[address] [address] Discharge Disposition: A-D/C Home Attending Physician: Amrik Castelan MD Admitting Physician: Amrik Castelan MD Referring Physician: Amrik Castelan MD Allergies, Adverse Reactions, Alerts No Known Allergies Immunizations Given and Recorded Vaccine Date Status Refusal Reason SARS-CoV-2 (COVID-19) mRNA BNT-162b2 vac 08/13/20 Recorded tetanus/diphtheria/pertussis, acel(Tdap) 12/27/18 Given tetanus-diphtheria toxoids (Td) 12/01/11 Recorded Medications atorvastatin 20 mg oral tablet 1 tablet = 20 mg, By Mouth, Daily, # 30 tablet, 4 Refills, Maintenance, 01/13/21 10:36:00 EST, Tablet, [facility]/pharmacy #[id number], Partial fill [...] 02/04/21 16:26:00 EST, Route to Pharmacy Electronically, [facility]/pharmacy #[id number], Partial fill upon patient request if the prescriptio... Start Date: 02/04/21 Status: Ordered diltiazem 180 mg/24 hours oral capsule, extended release 180 mg, 1, capsule, By Mouth, Daily, for 30 days, # 30 capsule, Refills 11, Tot. Refills 11, Hard Stop 01/08/22 10:41:00 EST, 01/13/21 10:41:00 EST, Route to Pharmacy Electronically, [facility]/pharmacy #[id number], 193, cm, 01/13/21 [...] 02/23/21 11:18:00 EST, Route to Pharmacy Electronically, [facility]/pharmacy #[id number], Partial fill upon patient request if the prescription i... Start Date: 02/23/21 Status: Ordered ibuprofen 600 mg oral tablet 600 mg, 1, tablet, By Mouth, Every 8 hours, PRN, # 30 tablet, Refills 1, Tot. Refills 1, Maintenance, Pain , Moderate, 01/13/21 10:32:00 EST, [facility] 5 Refills, Maintenance, 01/13/21 10:41:00 EST, Tablet, [facility]/pharmacy #[id number], Partial fill [...] Refills, Maintenance, 01/13/21 10:41:00 EST, EC Capsule, [facility]/pharmacy #[id number], 193, cm, 01/13/21 [...] Active Type 2 diabetes mellitus, uncontrolled(Confirmed) Active Procedures Procedure Date Related Diagnosis Body Site Status Colonoscopy 04/22/21 Completed Vital Signs Most recent to oldest [Reference Range]: 1 2 3 Height 193 cm (04/22/21 10:43 AM) Weight 111.4 kg (04/22/21 10:43 AM) Oxygen Saturation [94-100 %] 98 % (04/22/21 12:53 PM) 98 % (04/22/21 12:44 PM) 97 % (04/22/21 10:43 AM) Pulse Rate [55-90 bpm] 69 bpm (04/22/21 10:43 AM) Body Mass Index [18.5-24.99] 29.91 *H* (04/22/21 10:43 AM) Blood Pressure [90-138/55-84 mm Hg] 150/92mm Hg *H* (04/22/21 12:53 PM) 131/85mm Hg (04/22/21 12:44 PM) 142/85mm Hg *H* (04/22/21 10:43 AM) Respiratory Rate [16-30 br/min] 21 br/min (04/22/21 12:53 PM) 15 br/min *L* (04/22/21 12:44 PM) 17 br/min (04/22/21 10:43 AM) Temperature [96.8-100.4 DegF] 97.2 DegF (04/22/21 10:43 AM) Mode of Delivery (Oxygen) Room air (04/22/21 12:53 PM) Room air (04/22/21 12:44 PM) Room air (04/22/21 10:43 AM) Blood pressure sites Arm, left (04/22/21 12:53 PM) Arm, left (04/22/21 12:44 PM) Arm, left (04/22/21 10:43 AM) Temperature Route Temporal (04/22/21 10:43 AM) Social History Social History Type Response Smoking Status 10 or more cigarette s (1/2 pack or more)/day in last 30 days entered on: 01/12/19 Sex
--- OUTSIDE RECORDS SUMMARY | 2023-09-21 20:48 | XMS_ITS | Continuity of Care Document ---
Author Organization [facility] Address Unknown Care Team Providers Care Rubber Mixer Name Role Phone Brandon MIRANDA, Aubrey Primary Care Physician [place] [facility] [place] 04/21/21 - 07/16/21 [facility] Attending Physician: Becky Kemp Admitting Physician: Becky Kemp Allergies, Adverse Reactions, Alerts No Known Allergies Immunizations Given and Recorded Vaccine Date Status Refusal Reason SARS-CoV-2 (COVID-19) mRNA BNT-162b2 vac 08/13/20 Recorded tetanus/diphtheria/pertussis, acel(Tdap) 12/27/18 Given tetanus-diphtheria toxoids (Td) 12/01/11 Recorded Medications atorvastatin 20 mg oral tablet 1 tablet = 20 mg, By Mouth, Daily, # 90 tablet, 3 Refills, Maintenance, 05/15/21 10:02:00 EDT, Tablet, [facility]/pharmacy #[id number], [...] 10:41:00 EST, Route to Pharmacy Electronically, [facility]/pharmacy #[id number], 193, cm, 01/13/21 10:15:00 EST, Height Start Date: 01/13/21 Stop Date: 01/08/22 Status: Ordered Emgality Prefilled Syringe 100 mg/mL subcutaneous solution = 300 mg, Subcutaneous Injection, Every 28 days, # 3 kit, 5 Refills, Maintenance, 05/05/21 11:56:00EST, Solution, [facility], Partial fill upon [...] hours, PRN, # 90 tablet, Refills 0, NEEDED FOR MODERATE PAIN, Routeto Pharmacy Electronically, [id number], 193, cm, 05/15/21 8:55:00 EDT, Height Start Date: 07/13/21 Status: Ordered losartan 50 mg oral tablet 50 mg, 1, tablet, By Mouth, Daily, # 30 tablet, Refills 3, Tot. Refills 3, Maintenance, 06/23/21 9:03:00 EDT, Route to Pharmacy Electronically, [facility]/pharmacy #[id number], Partial fill upon patient request if the [...] 02/08/23 16:46:00 EST, 05/05/21 16:45:00 EST, Tablet, [facility], 193, cm, 05/05/21 [...]
--- OUTSIDE RECORDS SUMMARY | 2023-09-21 20:48 | XMS_ITS | Continuity of Care Document ---
Author Organization [facility] Adult Address [address] [place] [address]- Care Team Providers Care Waiter/Waitress Name Role Phone Brandon MIRANDA, [facility] Primary Care Physician Encounter [facility] [place] Date(s): 12/11/21 - 01/10/22 [facility] Adult [address] [place] [address]- Attending Physician: Ashley Craft Admitting Physician: AdmAshley [...] capsule, 1 Refills, Maintenance, 11/20/21 19:17:00 EDT, [facility]/pharmacy #[id number], 193, cm, 09/25/21 8:45:00 EDT, Height Start Date: 11/20/21 Stop Date: 05/19/22 Status: Ordered Emgality Prefilled Syringe 100 mg/mL subcutaneous solution = 300 mg, Subcutaneous Injection, Every 28 days, # 3 kit, 5 Refills, Maintenance, 05/05/21 11:56:00EST, Solution, [facility], Partial fill upon patient [...] 10/26/21 8:03:00 EDT, Route to Pharmacy Electronically, [id number], 193robert, 09/25/21 8:45:00 EDT, Height Start Date: 10/26/21 Stop Date: 11/25/21 Status: Ordered losartan 50 mg oral tablet 75 mg, 1.5, tablet, By Mouth, Daily, # 135 tablet, Refills 3, Tot. Refills 3, Maintenance, 12/30/2212:55:00 EDT, Route to Pharmacy Electronically, [facility]/pharmacy #[id number], Partial fill upon patient request if the prescription is for a schedule II opioid d... Start Date: 12/30/21 Stop Date: 12/25/22 Status: Ordered metFORMIN 1000 mg oral tablet 1 tablet = 1,000 mg, By Mouth, 2 times a day, # 60 tablet, 5 Refills, Maintenance, 01/13/21 10:41:00 EST, Tablet, [facility]/pharmacy #[id number], Partial fill upon patient request if the prescription is for a schedule II opioid drug., 193, cm, 01/13/21 10:15:00 E... Start Date: 01/13/21 Status: Ordered NuLYTELY with Flavor Packs oral powder for reconstitution See Instructions, Drink 240mL every 15-20 minutes until first half is gone. Repeat 6 hours prior toprocedure., # 4,000 mL, 0 Refills, Maintenance, 03/19/21 12:55:00 EST, [facility]/pharmacy #[id number], Partial fill upon patient request if the prescription is fo... Start Date: 03/19/21 Status: Ordered omeprazole 20 mg oral enteric coated capsule See Instructions, TAKE 1 CAPSULE BY MOUTH DAILY BEFORE A MEAL X30 DAYS, # 90 capsule, 1 Refills, Maintenance, 11/20/21 19:18:00 EDT, [facility]/pharmacy #[id number], PATIENT NEEDS TO CALL OFFICE FOR APPOINTMENT, 193, cm, 09/25/21 8:45:00 EDT, Height Start Date: 11/20/21 Status: Ordered SUMAtriptan 100 mg oral tablet 1 tablet = 100 mg, By Mouth, Daily, PRN for migraine headache, may repeat dose after 2 hours up to a maximum of 2, # 9 tablet, 0 Refills, Acute 02/08/23 16:46:00 EST, 05/05/21 16:45:00 EST, Tablet, [facility], 193, cm, 05/05/21 11:20:... [...] EVERY 2-3 DAYS X 30+ YEARS. Sex Note * Event Display: Non BH Lab Results Authored Date: * Event Display: Non BH Lab Results Authored Date: * Event Display: Non BH Lab Results Authored Date: * Event Display: Non BH Cardiovascular Results Authored Date: Hospital Progress note * Peter MIRANDA, Ange Sanches: PERFORM Event Display: Progress Note Hospital Authored Date: [id number] Patient: ??PATRICK, JESSE ? Age:??53 Years?Sex:??Male?:??1965? Subjective No acute overnight [...] eye symptoms. ?? Please page plastic surgery, [id number], with any questions or concerns Case was discussed with Dr. Carmona Intake and Output Intake and Output Results?? No results in record. Labs Last 24 Hours No qualifying data available. Patient Care team information Care Team Personnel Name: Aubrey Taylor MD Position: [facility] Primary Care Physician Member Role: PCP Address: Address: [address] [place] [address] [address]rd [place] [address]- Name: Tarah Schmitt RN Position: [facility] RN Member Role: Primary Care Nurse Name: Maricruz Vinson RN Position: S RN Member Role: Primary Care Nurse Name: Melodie Hampton Position: [facility] Onco RN Member Role: Primary Care Nurse Care Team Related Persons Name: ELIJAH MARIA Address: home [address] [place], [place] Name: JESSE PATRICK Name: JESSE PATRICK Address: home [address] [place], [place]
--- OUTSIDE RECORDS SUMMARY | 2023-09-21 20:48 | XMS_ITS | Continuity of Care Document ---
Author Organization [facility] Adult Address [address] [place] [address]- Care Team Providers Care Brush Holder Inspector Name Role Phone Brandon MIRANDA, [facility] Primary Care Physician ( [phone] [place] [facility] [place]): [place]12[place] [facility] Adult [address] [place] [address]- Encounter Diagnosis HTN (hypertension)(Discharge Diagnosis) - 08/05/20 Attending Physician: Brett GALLOWAY, Geraldine Marshall Allergies, Adverse Reactions, Alerts Substance Reaction Severity Status NKA Active Immunizations Given and Recorded Vaccine Date Status Refusal Reason tetanus/diphtheria/pertussis, acel(Tdap) 12/27/18 Given tetanus-diphtheria toxoids (Td) 12/01/11 Recorded Medications diltiazem 180 mg/24 hours oral capsule, extended release 180 mg, 1, capsule, By Mouth, Daily, # 30 capsule, Refills 11, Tot. Refills 11, Maintenance, 07/18/20 10:07:00 EDT, Route to Pharmacy Electronically, [facility]/pharmacy #[id number], 193, cm, 07/18/20 9:23:00 EDT, Height, [...] 07/21/20 13:59:00 EDT, Route to Pharmacy Electronically, [facility]/pharmacy #[id number], Partial fill upon patient request if th... Start Date: 07/21/20 Stop Date: 08/21/20 Status: Ordered losartan 25 mg oral tablet 25 mg, 1, tablet, By Mouth, Daily, # 30 tablet, Refills 6, Tot. Refills 6, Maintenance, 07/18/20 10:06:00 EDT, Route to Pharmacy Electronically, [facility]/pharmacy #[id number], Partial fill upon patient request if the prescription is for a schedule II opioid drug... Start Date: 07/18/20 Stop Date: 02/13/21 Status: Ordered omeprazole 20 mg oral enteric coated capsule 1 capsule = 20 mg, By Mouth, Daily, before a meal, # 30 capsule, 11 Refills, Maintenance, 07/22/20 9:34:00 EDT, EC Capsule, [facility]/pharmacy #[id number], 193, cm, 07/18/20 10:08:00 EDT, Height, [...] Dates Health Status Cl inical Service Informant HTN (hypertension) Discharge Diagnosis 08/05/20 Vital Signs Most recent to oldest [Reference Range]: 1 2 3 Height 193 cm (08/05/20 10:11 AM) 193 cm (08/05/20 10:09 AM) 193 cm (08/05/20 9:43 AM) Weight 128.5 kg (08/05/20 9:43 AM) Oxygen Saturation [94-100 %] 100 % (08/05/20 9:43 AM) Pulse Rate [55-90 bpm] 78 bpm (08/05/20 9:43 AM) Body Mass Index [18.5-24.99] 34.5 *>HHI* (08/05/20 9:43 AM) Blood Pressure [90-138/55-84 mm Hg] 160/88mm Hg *H* (08/05/20 10:11 AM) 160/88mm Hg *H* (08/05/20 10:09 AM) 170/105mm Hg *H* (08/05/20 9:43 AM) Mode of Delivery (Oxygen) Room air (08/05/20 9:43 AM) Blood pressure sites Arm, left (08/05/20 10:11 AM) Arm, left (08/05/20 10:09 AM) Arm, left (08/05/20 9:43 AM) Weight Obtained Via Standing scale (08/05/20 9:43 AM) Social History Social History Type Response Smoking Status 10 or more cigarette s (1/2 pack or more)/day in last 30 days entered on: 01/12/19 Sex
--- OUTSIDE RECORDS SUMMARY | 2023-09-21 20:48 | XMS_ITS | Continuity of Care Document ---
Author Organization [facility] Adult Address [address] [place] [address]- Care Team Providers Care Internal Control Analyst Name Role Phone Brandon MIRANDA, [facility] Primary Care Physician ( [phone] Encounter [facility] [place] Date(s): 05/05/21 - 06/04/21 [facility] Adult [address] [place] [address]- Allergies, Adverse Reactions, Alerts No Known Allergies [...] 10:41:00 EST, Route to Pharmacy Electronically, [facility]/pharmacy #[id number], 193, cm, 01/13/21 10:15:00 EST, Height Start Date: 01/13/21 Stop Date: 01/08/22 Status: Ordered Emgality Prefilled Syringe 100 mg/mL subcutaneous solution = 300 mg, Subcutaneous Injection, Every 28 days, # 3 kit, 5 Refills, Maintenance, 05/05/21 11:56:00EST, Solution, [facility], Partial fill upon patient [...] 11:18:00 EST, Route to Pharmacy Electronically, [facility]/pharmacy #[id number], Partial fill upon patient request if the prescription i... Start Date: 02/23/21 Status: Ordered losartan 50 mg oral tablet 50 mg, 1, tablet, By Mouth, Daily, # 30 tablet, Refills 3, Tot. Refills 3, Maintenance, 05/15/21 10:00:00 EDT, Route to Pharmacy Electronically, [facility]/pharmacy #[id number], Partial fill upon patient request if the prescription is for a schedule II opioid drug... Start Date: 05/15/21 Stop Date: 09/12/21 Status: Ordered metFORMIN 1000 mg oral tablet 1 tablet = 1,000 mg, By Mouth, 2 times a day, # 60 tablet, 5 Refills, Maintenance, 01/13/21 10:41:00 EST, Tablet, [facility]/pharmacy #[id number], Partial fill upon patient request if the prescription is for a schedule II opioid drug., 193, cm, 01/13/21 10:15:00 E... Start Date: 01/13/21 Status: Ordered NuLYTELY with Flavor Packs oral powder for reconstitution See Instructions, Drink 240mL every 15-20 minutes until first half is gone. Repeat 6 hours prior toprocedure., # 4,000 mL, 0 Refills, Maintenance, 03/19/21 12:55:00 EST, [facility]/pharmacy #[id number], Partial fill upon patient request if the prescription is fo... Start Date: 03/19/21 Status: Ordered omeprazole 20 mg oral enteric coated capsule 1 capsule = 20 mg, By Mouth, Daily, before a meal, # 30 capsule, 11 Refills, Maintenance, 01/13/21 10:41:00 EST, EC Capsule, [facility]/pharmacy #[id number], 193, cm, 01/13/21 10:15:00 EST, Height Start Date: 01/13/21 Stop Date: 01/08/22 Status: Ordered SUMAtriptan 100 mg oral tablet 1 tablet = 100 mg, By Mouth, Daily, PRN for migraine headache, may repeat dose after 2 hours up to a maximum of 2, # 9 tablet, 0 Refills, Acute 02/08/23 16:46:00 EST, 05/05/21 16:45:00 EST, Tablet, [facility], 193, cm, 05/05/21 11:20:... [...]
--- OUTSIDE RECORDS SUMMARY | 2023-09-21 20:48 | XMS_ITS | Continuity of Care Document ---
Author Organization [facility] ter Address [address] [place] [address]- Care Team Providers Care Life Sciences Teacher Name Role Phone Brandon MIRANDA, Aubrey Primary Care Physician ( [phone] Encounter [facility] [place] Date(s): 03/20/21 - 05/02/[address] [address] Attending Physician: Pierre Hicks MD Admitting Physician: Pierre Hicks MD Allergies, Adverse Reactions, Alerts No Known Allergies Immunizations Given and Recorded Vaccine Date Status Refusal Reason SARS-CoV-2 (COVID-19) mRNA BNT-162b2 vac 08/13/20 Recorded tetanus/diphtheria/pertussis, acel(Tdap) 12/27/18 Given tetanus-diphtheria toxoids (Td) 12/01/11 Recorded Medications atorvastatin 20 mg oral tablet 1 tablet = 20 mg, By Mouth, Daily, # 30 tablet, 4 Refills, Maintenance, 01/13/21 10:36:00 EST, Tablet, [facility]/pharmacy #[id number], Partial fill upon patient [...] 02/04/21 16:26:00 EST, Route to Pharmacy Electronically, [facility]/pharmacy #[id number], Partial fill upon patient request if the prescriptio... Start Date: 02/04/21 Status: Ordered diltiazem 180 mg/24 hours oral capsule, extended release 180 mg, 1, capsule, By Mouth, Daily, for 30 days, # 30 capsule, Refills 11, Tot. Refills 11, Hard Stop 01/08/22 10:41:00 EST, 01/13/21 10:41:00 EST, Route to Pharmacy Electronically, [facility]/pharmacy #[id number], 193, cm, 01/13/21 10:15:00 [...] 02/23/21 11:18:00 EST, Route to Pharmacy Electronically, [facility]/pharmacy #2336, Partial fill upon patient request if the prescription i... Start Date: 02/23/21 Status: Ordered ibuprofen 600 mg oral tablet 600 mg, 1, tablet, By Mouth, Every 8 hours, PRN, # 30 tablet, Refills 1, Tot. Refills 1, Maintenance, Pain , Moderate, 01/13/21 10:32:00 EST, Route to Pharmacy Electronically, [facility]/pharmacy #[id number], Partial fill upon patient request if the prescription i... Start Date: 01/13/21 Status: Ordered losartan 25 mg oral tablet 25 mg, 1, tablet, By Mouth, Daily, # 30 tablet, Refills 6, Tot. Refills 6, Maintenance, 01/13/21 10:41:00 EST, Route to Pharmacy Electronically, [facility]/pharmacy #[id number], Partial fill upon patient request if the prescription is for a schedule II opioid drug... Start Date: 01/13/21 Stop Date: 08/11/21 Status: Ordered metFORMIN 1000 mg oral tablet 1 tablet = 1,000 mg, By Mouth, 2 times a day, # 60 tablet, 5 Refills, Maintenance, 01/13/21 10:41:00 EST, Tablet, [facility]/pharmacy #[id number], Partial fill upon patient request if the prescription is for a schedule II opioid drug., 193, cm, 01/13/21 10:15:00 E... Start Date: 01/13/21 Status: Ordered NuLYTELY with Flavor Packs oral powder for reconstitution See Instructions, Drink 240mL every 15-20 minutes until first half is gone. Repeat 6 hours prior toprocedure., # 4,000 mL, 0 Refills, Maintenance, 03/19/21 12:55:00 EST, [facility]/pharmacy #[id number], Partial fill upon patient [...] 01/11/20 Active Obesity(Confirmed) Active Tobacco use(Confirmed) Active Tubular adenoma of colon(Confirmed) 1 04/24/21 Active Type 2 diabetes mellitus, uncontrolled(Confirmed) Active 1repeat screening colonoscopy in 2024 Social History Social History Type Response Smoking Status 10 or more cigarette s (1/2 pack or more)/day in last 30 days entered on: 01/12/19 Sex
--- OUTSIDE RECORDS SUMMARY | 2023-09-21 20:48 | XMS_ITS | Continuity of Care Document ---
Author Organization [facility] Address [address] [place] [address]- Care Team Providers Care Property Management Specialist Name Role Phone Brandon MIRANDA, [facility] Primary Care Physician Encounter [facility] [place] Date(s): 11/17/21 - 09/11/22 [facility] [address] [place] [id number] Discharge Disposition: A-D/C Home Attending Physician: Delfino MIRANDA, David Ayala Admitting Physician: Laurent Palma MD Referring Physician: Bang Jeronimo DO Allergies, Adverse Reactions, [...] tablet, 3 Refills, Maintenance, 03/16/22 12:18:00 EST, [id number], 193, cm, 03/12/22 10:49:00 EST, Height, 107, [...] Maintenance, :52:00 EDT, Route to Pharmacy Electronically, [facility]/pharmacy [...] 90 capsule, 0 Refills, Maintenance, 05/21/22 16:20:00EDT, [facility]/pharmacy #[id number], Partial fill upon patient request if the prescription is for a schedule IIopioid drug., 175, cm, 05/19/22 9:32:00 EDT, Height... Start Date: 05/21/22 Status: Ordered losartan 50 mg oral tablet 75 mg, 1.5, tablet, By Mouth, Daily, # 45 tablet, Refills 5, Tot. Refills 5, Maintenance, 07/06/22 15:32:00 EDT, Route to Pharmacy Electronically, [facility]/pharmacy #[id number], Partial fill upon patient request if the prescription is for a schedule II opioid dr... Start Date: 07/06/22 Stop Date: 01/02/23 Status: Ordered metFORMIN 1000 mg oral tablet 1 tablet, By Mouth, 2 times a day, # 60 tablet, 2 Refills, Maintenance, 07/13/22 11:11:00 EDT, [facility]/pharmacy #[id number], 175, cm, 06/04/22 8:29:00 EDT, Height, 109, kg, 06/04/22 8:29:00 EDT, Dry Weight Start Date: 07/13/22 Status: Ordered omeprazole 20 mg oral enteric coated capsule See Instructions, TAKE 1 CAPSULE BY MOUTH DAILY BEFORE A MEAL X30 DAYS, # 90 capsule, 1 Refills, Maintenance, 07/16/22 11:48:00 EDT, [facility]/pharmacy #[id number], PATIENT NEEDS TO CALL [...] tablet, 11 Refills, Maintenance, 06/14/22 9:12:00 EDT, [facility]/pharmacy #[id number], Partial fill upon [...] Range]: 1 2 3 Height 175 cm (05/19/22 9:32 AM) 193 cm (04/05/22 11:06 AM) 193 cm (03/12/22 10:49 AM) Weight 113.3 kg (05/19/22 9:32 AM) 110.7 kg (04/05/22 11:06 AM) 107 kg (03/12/22 10:49 AM) Oxygen Saturation [94-100 %] 98 % (05/19/22 9:32 AM) 96 % (04/05/22 11:06 AM) 95 % (02/16/22 11:18 AM) Pulse Rate [55-90 bpm] 80 bpm (05/19/22 9:32 AM) 94 bpm *H* (04/05/22 11:06 AM) 81 bpm (02/16/22 11:18 AM) Body Mass Index [18.5-24.99 kg/m2] 37 kg/m2 *>HHI* (05/19/22 9:32 AM) 29.72 kg/m2 *H* (04/05/22 11:06 AM) 28.73 kg/m2 *H* (02/16/22 11:18 AM) Blood Pressure [90-138/55-84 mm Hg] 146/79mm Hg *H* (05/19/22 9:32 AM) 136/76mm Hg (04/05/22 11:06 AM) 148/92mm Hg *H* (02/16/22 11:18 AM) Temperature [96.8-100.4 DegF] 98.4 DegF (05/19/22 9:32 AM) 97.9 DegF (04/05/22 11:06 AM) 98.1 DegF (02/16/22 11:18 AM) Mode of Delivery (Oxygen) Room air (05/19/22 9:32 AM) Room air (04/05/22 11:06 AM) Room air (02/16/22 11:18 AM) Blood pressure sites Arm, right (05/19/22 9:32 AM) Arm, right (04/05/22 11:06 AM) Arm, right (02/16/22 11:18 AM) Temperature Route Oral (05/19/22 9:32 AM) Temporal (04/05/22 11:06 AM) Oral (02/16/22 11:18 AM) Dry Weight 113.3 kg (05/19/22 9:32 AM) 110.7 kg (04/05/22 11:06 AM) 107.0 kg (02/16/22 11:18 AM) Weight Obtained Via Standing scale (05/19/22 9:32 AM) Standing scale (04/05/22 11:06 AM) Standing scale (02/16/22 11:18 AM) Dry Weight Obtained Via Standing scale (05/19/22 9:32 AM) Standing scale (04/05/22 11:06 AM) Standing scale (02/16/22 11:18 AM) Social History Social History Type Response Smoking Status Former smoker, quit more than 30 days ago; Other: 20 pack year hx; entered on: 05/06/22 Sex Note * Melodie Hampton: PERFORM, SIGN, VERIFY Event Display: Patient Education/Instruction Authored Date: [id number] [facility] *Heme/Onc Adult Clinical Summary Name ABDIRAHMAN LEON Age 57 Years 1965 PCP Brandon MIRANDA, Aubrey PCP Visit Date 11/17/2021 08:05:00 Additional Instructions: Scheduled Appointments?? Future Appointments ?No Future Appointments Scheduled Follow-Up Instructions ?? With: Address: When: [facility], [address] [place] [address] [place] [address] [facility] (1) 03/30/2022 10:30 AM Diagnosis Medications: Please continue your medications until treatment is completed or stopped by your provider. Discuss any questions related to medications with your provider. Medications to Continue Taking That Have Changed These medications were not printed or sent to your pharmacy - Diltiazem (DilTIAZem (Eqv-Cardizem CD) 180 mg/24 hours oral capsule, extended release) 1 capsule Oral Daily for 90 Days. PATIENT NEEDS OFFICE APPOINTMENT 11/20/21. Refills: 1. Next Dose: - Losartan (losartan 50 mg oral tablet) 1 tab(s) Oral Daily. Refills: 1. Next Dose: - Metformin (metFORMIN 1000 mg oral tablet) 1 tab(s) Oral twice a day. Refills: 5. Next Dose: - Omeprazole (omeprazole 20 mg oral enteric coated capsule) TAKE 1 CAPSULE BY MOUTH DAILY BEFORE A MEAL X30 DAYS. Refills: 1. Next Dose: Medications to Continue with No Changes These medications were not printed or sent to your pharmacy Atorvastatin (atorvastatin 20 mg oral tablet) 1 tab(s) Oral Daily for 90 Days. Refills: 3. Next Dose: Azithromycin (Azithromycin 5 Day Dose Pack 250 mg oral tablet) 1 pack/packet Oral once. as directedon package labeling. Refills: 0. Next Dose: Durable Medical Equipment (Freestyle Lancets) Use to check glucose once daily or as instructed by phsician. Refills: 3. Next Dose: Durable Medical Equipment (Freestyle Lite Monitor) Check glucose once daily or as directed by physician. Refills: 0. Next Dose: Durable Medical Equipment (Freestyle Test Strips) Use to check glucose once daily or as directed byphysician. Refills: 3. Next Dose: Durable Medical Equipment (Home Blood Pressure Monitor) Large blood pressure cuff. Refills: 0. Next Dose: galcanezumab (Emgality Prefilled Syringe 100 mg/mL subcutaneous solution) 300 Milligram Subcutaneous Injection Every 28 days. Refills: 5. Next Dose: Ibuprofen (ibuprofen 600 mg oral tablet) 1 tab(s) Oral every 8 hours as needed NEEDED FOR MODERATE PAIN FOR for 30 Days. Refills: 0. Next Dose: Miscellaneous Rx (FREESTYLE LITE TEST STRIP) USE TO CHECK GLUCOSE ONCE DAILY OR DIRECTED BY PHYSICIAN. Refills: 3. Next Dose: PEG Electrolyte Solution (NuLYTELY with Flavor Packs oral powder for reconstitution) Drink 240mL every 15-20 minutes until first half is gone. Repeat 6 hours prior to procedure.. Refills: 0. Next Dose: Sumatriptan (SUMAtriptan 100 mg oral tablet) 1 tab(s) Oral Daily as needed for migraine headache. may repeat dose after 2 hours up to a maximum of 2. Refills: 0. Next Dose: Allergy Info:?? NKA Medications Given This Visit Future Orders ?No future orders Vital Signs Height 193 cm Weight 107.0 kg BMI 28.73 kg/m2 Blood Pressure 148 mm Hg/92 mm Hg Temperature 98.1 DegF Pulse Rate 81 bpm Respiratory Rate 02 Sat Mode of Delivery 95 %/Room air You can now view a summary of your hospital visit from the comfort of your home through a free online portal called [employer]. [employer] is a website that allows you to securely view your medical information including discharge summary, medications and follow-up visits. ??You can alsosend a secure electronic message to your doctor???s office to request appointments, renew medications or just ask a question. You can enroll at [email or web address] or register during your next office visit. Disclaimer:?? The information provided is of a general nature and is intended to be used in conjunction with the recommendations and advice of your health care practitioner. ??Every effort has been made to ensure that the information provided is accurate and complete at the time it is provided to you however, as your needs change, or, as new ??information becomes available, different or additional instructions may be required. If you have questions, please consult with your primary care provider or pharmacist, as appropriate. ??This information is not intended to serve as substitution for assessment and evaluation by a qualified health care provider. If you do not have a primary care provider, you may find a [facility] provider by calling [facility] [employer] [facility] at [phone]. For information about the plan of care including goals and instructions for your diagnosis, please see the patient education orders section of this document. Patient Education Materials?? The content of this educational material or handout may have been modified, supplemented, or adapted from its original content and format to support your individualized medical care. Patient Care team information Care Team Personnel Name: Tarah Carbajal RN Position: [facility] RN Member Role: Primary Care Nurse Name: Aubrey Taylor MD Position: [facility] Physician - Primary Care Member Role: PCP Address: Address: [address] [facility] 3rd [place] [address]- Name: Maricruz Vinson RN Position: S RN Member Role: Primary Care Nurse Name: Melodie Hampton Position: [facility] Onco RN Member Role: Primary Care Nurse Name: Emeka Patel MD Position: [facility] Renal MD Member Role: [employer] Consulting Physician Address: Address: [address] [place] [address] [address] [facility], [place] [address]- [place] Name: Kevin Cool RN Position: [facility] RN Member Role: Primary Care Nurse Care Team Related Persons Name: ELIJAH MARIA Address: home [address] [place], [place] Name: ABDIRAHMAN LEON Name: JONATHAN LEON Address: home [address] [place], [place]
--- OUTSIDE RECORDS SUMMARY | 2023-09-21 20:48 | XMS_ITS | Continuity of Care Document ---
Author Organization [facility] Adult Address [address] [place] [address]- Care Team Providers Care Insurance Commissioner Name Role Phone Brandon MIRANDA, [facility] Primary Care Physician ( [phone] Encounter [facility] [place] Date(s): 11/25/20 - 12/25/20 [facility] [address] [place] [address]- Allergies, Adverse Reactions, Alerts Substance Reaction Severity Status NKA Active Immunizations Given and Recorded Vaccine Date Status Refusal Reason tetanus/diphtheria/pertussis, acel(Tdap) 12/27/18 Given tetanus-diphtheria toxoids (Td) 12/01/11 Recorded Medications diltiazem 180 mg/24 hours oral capsule, extended release 180 mg, 1, capsule, By Mouth, Daily, # 30 capsule, Refills 11, Tot. Refills 11, Maintenance, 07/18/20 10:07:00 EDT, Route to Pharmacy Electronically, [facility]/pharmacy #[id number], 193, cm, 07/18/20 9:23:00 EDT, Height, [...] 12/02/20 13:02:00 EDT, Route to Pharmacy Electronically, [facility]/pharmacy #[id number], Partial fill upon patient request if the prescription i... Start Date: 12/02/20 Status: Ordered losartan 25 mg oral tablet 25 mg, 1, tablet, By Mouth, Daily, # 30 tablet, Refills 6, Tot. Refills 6, Maintenance, 07/18/20 10:06:00 EDT, Route to Pharmacy Electronically, [facility]/pharmacy #[id number], Partial fill upon patient request if the prescription is for a schedule II opioid drug... Start Date: 07/18/20 Stop Date: 02/13/21 Status: Ordered metFORMIN 1000 mg oral tablet 1 tablet = 1,000 mg, By Mouth, 2 times a day, # 60 tablet, 5 Refills, Maintenance, 12/02/20 13:01:00 EDT, Tablet, [facility]/pharmacy #[id number], Partial fill upon patient request if the prescription is for a schedule II opioid drug., 193, cm, 12/02/20 12:59:00 E... Start Date: 12/02/20 Status: Ordered omeprazole 20 mg oral enteric coated capsule 1 capsule = 20 mg, By Mouth, Daily, before a meal, # 30 capsule, 11 Refills, Maintenance, 07/22/20 9:34:00 EDT, EC Capsule, [facility]/pharmacy #[id number], 193, cm, 07/18/20 10:08:00 EDT, Height, [...]
--- OUTSIDE RECORDS SUMMARY | 2023-09-21 20:48 | XMS_ITS | Continuity of Care Document ---
Author Organization [facility] ter Address [address] [place] [address]- Care Team Providers Care Special Education Teacher Name Role Phone Brandon MIRANDA, [facility] Primary Care Physician Encounter [facility] [place] Date(s): 05/10/22 - 06/09/[address] [address]- Attending Physician: Not on Staff, Attending MD Admitting Physician: Not on Staff, Admitting MD Referring Physician: Not on Staff, Referring [...] tablet, 3 Refills, Maintenance, 03/16/22 12:18:00 EST, [id number], 193, cm, 03/12/22 10:49:00 EST, Height, 107, [...] Maintenance, :52:00 EDT, Route to Pharmacy Electronically, [facility]/pharmacy #[id number], Partial fill upon patient request if [...] 90 capsule, 0 Refills, Maintenance, 05/21/22 16:20:00EDT, [facility]/pharmacy #[id number], Partial fill upon patient request if [...] tablet, 5 Refills, Maintenance, 01/13/22 9:33:00 EST, [facility] 410[facility], 193, cm, 01/01/22 9:25:00 EDT, Height, 110.2, kg, 01/01/22 9:25:00 EDT, Dry Weight Start Date: 01/13/22 Status: Ordered omeprazole 20 mg oral enteric coated capsule See Instructions, TAKE 1 CAPSULE BY MOUTH DAILY BEFORE A MEAL X30 DAYS, # 90 capsule, 1 Refills, Maintenance, 11/20/21 19:18:00 EDT, [facility]/pharmacy #[id number], PATIENT NEEDS TO CALL OFFICE FOR [...] Active Elevated cholesterol with high triglycerides Confirmed 11/13/20 Active Severe obesity (BMI 35.0-39.9) with comorbidity [...] Care Nurse Name: Aubrey Taylor MD Position: [facility] Primary Care Physician Member Role: PCP Address: Address: [address] [place] [address] [address] [place] [address]- [place] Name: Maricruz Vinson RN Position: [facility] RN Member Role: Primary Care Nurse Name: Melodie Hampton Position: [facility] Onco RN Member Role: Primary Care Nurse Name: Emeka Patel MD Position: [facility] Renal MD Member Role: [employer] Consulting Physician Address: Address: [address] [facility] [place] [address]- [place] Name: Kevin Cool RN Position: [facility] RN Member Role: Primary Care Nurse Care Team Related Persons Name: ELIJAH MARIA Address: home [address] [place] [address] Name: ABDIRAHMAN LEON Name: JONATHAN LEON Address: home [address] [place], [place]
--- OUTSIDE RECORDS SUMMARY | 2023-09-21 20:48 | XMS_ITS | Continuity of Care Document ---
Author Organization [facility] ter Address [address] [place] [address]- Care Team Providers Care Bpm Analyst Name Role Phone Brandon MIRANDA, [facility] Primary Care Physician Encounter [facility] [place] Date(s): 12/04/21 - 01/14/[address] [address]- Attending Physician: Bang Jeronimo DO Admitting Physician: Bang Jeronimo DO Referring Physician: Bang Jeronimo DO Allergies, Adverse [...] capsule, 1 Refills, Maintenance, 11/20/21 19:17:00 EDT, [facility]/pharmacy #[id number], 193, cm, 09/25/21 8:45:00 EDT, Height Start Date: 11/20/21 Stop Date: 05/19/22 Status: Ordered Emgality Prefilled Syringe 100 mg/mL subcutaneous solution = 300 mg, Subcutaneous Injection, Every 28 days, # 3 kit, 5 Refills, Maintenance, 05/05/21 11:56:00EST, Solution, [facility], Partial fill upon patient [...] 10/26/21 8:03:00 EDT, Route to Pharmacy Electronically, [id number], 193, cm, 09/25/21 8:45:00 EDT, Height Start Date: 10/26/21 Stop Date: 11/25/21 Status: Ordered losartan 50 mg oral tablet 1 tablet, By Mouth, Daily, # 90 tablet, 1 Refills, Maintenance, 01/13/22 9:33:00 EST, [facility] 00590, 193, cm, 01/01/22 9:25:00 EDT, Height, 110.2, kg, 01/01/22 9:25:00 EDT, Dry Weight Start Date: 01/13/22 Status: Ordered metFORMIN 1000 mg oral tablet 1 tablet, By Mouth, 2 times a day, # 60 tablet, 5 Refills, Maintenance, 01/13/22 9:33:00 EST, [facility] 82[facility], 193, cm, 01/01/22 9:25:00 EDT, Height, 110.2, kg, 01/01/22 9:25:00 EDT, Dry Weight Start Date: 01/13/22 Status: Ordered NuLYTELY with Flavor Packs oral powder for reconstitution See Instructions, Drink 240mL every 15-20 minutes until first half is gone. Repeat 6 hours prior toprocedure., # 4,000 mL, 0 Refills, Maintenance, 03/19/21 12:55:00 EST, [facility]/pharmacy #[id number], Partial fill upon patient request if the prescription is fo... Start Date: 03/19/21 Status: Ordered omeprazole 20 mg oral enteric coated capsule See Instructions, TAKE 1 CAPSULE BY MOUTH DAILY BEFORE A MEAL X30 DAYS, # 90 capsule, 1 Refills, Maintenance, 11/20/21 19:18:00 EDT, [facility]/pharmacy #[id number], PATIENT NEEDS TO CALL OFFICE FOR APPOINTMENT, robert Ramírez, 09/25/21 8:45:00 EDT, Height Start Date: 11/20/21 Status: Ordered SUMAtriptan 100 mg oral tablet 1 tablet = 100 mg, By Mouth, Daily, PRN for migraine headache, may repeat dose after 2 hours up to a maximum of 2, # 9 tablet, 0 Refills, Acute 02/08/23 16:46:00 EST, 05/05/21 16:45:00 EST, Tablet, [facility], 193, cm, 05/05/21 11:20:... [...] Team Personnel Name: Aubrey Taylor MD Position: [facility] Primary Care Physician Member Role: PCP Address: Address: [address] [place] [address] 3rd [place] [address]- Name: Tarah Schmitt RN Position: [facility] RN Member Role: Primary Care Nurse Name: Maricruz Vinson RN Position: S RN Member Role: Primary Care Nurse Name: Melodie Hampton Position: [facility] Onco RN Member Role: Primary Care Nurse Care Team Related Persons Name: ELIJAH MARIA Address: home [address] [place] [address] Name: ABDIRAHMAN LEON Name: JONATHAN LEON Address: home [address] [place], [place]
--- OUTSIDE RECORDS SUMMARY | 2023-09-21 20:48 | XMS_ITS | Continuity of Care Document ---
Author Organization [facility] Adult Address [address] [place] [address]- Care Team Providers Care Counselor Nurses' Association Name Role Phone Brandon MIRANDA, Aubrey Primary Care Physician Encounter [facility] [place] Date(s): 05/11/22 - 06/23/22 [facility] Adult [address] [place] [address]- Attending Physician: Aubrey Taylor MD Allergies, Adverse [...] tablet, 3 Refills, Maintenance, 03/16/22 12:18:00 EST, [facility] [address], 193, cm, 03/12/22 10:49:00 EST, Height, 107, [...] Refills, Maintenance, 06/16/22 13:19:00 EDT, CD Capsule, [facility]/pharmacy #[id number], Partial fill upon patient request if the prescription is for a schedule II opi... Start Date: 06/16/22 Stop Date: 09/14/22 Status: Ordered diltiazem 120 mg/24 hours oral capsule, extended release 120 mg, 1, capsule, By Mouth, Daily, # 30 capsule, Refills 0, Tot. Refills 0, Maintenance, 239:52:00 EDT, Route to Pharmacy Electronically, [facility]/pharmacy #[id number], Partial fill upon [...] 90 capsule, 0 Refills, Maintenance, 05/21/22 16:20:00EDT, [facility]/pharmacy #[id number], Partial fill upon [...] tablet, 5 Refills, Maintenance, 01/13/22 9:33:00 EST, [facility] [id number], 193, cm, 01/01/22 9:25:00 EDT, Height, 110.2, [...] the a.m. with food, # 30 tablet, Refills, Maintenance, 06/14/22 9:12:00 EDT, [facility]/pharmacy #[id number], Partial fill upon [...] Care Nurse Name: Aubrey Taylor MD Position: [facility] Primary Care Physician Member Role: PCP Address: Address: [address] [place] [id number] Name: Maricruz Vinson RN Position: S RN Member Role: Primary Care Nurse Name: Melodie Hampton Position: [facility] Onco RN Member Role: Primary Care Nurse Name: Emeka Patel MD Position: [facility] Renal MD Member Role: Lifetime Consulting Physician Address: Address: [address] [facility] [place] [address]- Name: Silvina HANNAH, Kevin Position: S RN Member Role: Primary Care Nurse Care Team Related Persons Name: ELIJAH MARIA Address: home [address] [place] [address] Name: ABDIRAHMAN LEON Name: JONATHAN LEON Address: home [address] [place] [address]
--- OUTSIDE RECORDS SUMMARY | 2023-09-21 20:48 | XMS_ITS | Continuity of Care Document ---
Author Organization [facility] Adult Address [address] [place] [address]- Care Team Providers Care Oracle Ebs Architect Name Role Phone Brandon MIRANDA, [facility] Primary Care Physician Encounter [facility] [place] Date(s): 12/05/20 - 01/04/21 [facility] Adult [address] [place] [address]- Allergies, Adverse Reactions, Alerts Substance Reaction Severity Status NKA Active Immunizations Given and Recorded Vaccine Date Status Refusal Reason tetanus/diphtheria/pertussis, acel(Tdap) 12/27/18 Given tetanus-diphtheria toxoids (Td) 12/01/11 Recorded Medications diltiazem 180 mg/24 hours oral capsule, extended release 180 mg, 1, capsule, By Mouth, Daily, # 30 capsule, Refills 11, Tot. Refills 11, Maintenance, 07/18/20 10:07:00 EDT, Route to Pharmacy Electronically, [facility]/pharmacy #[id number], 193, cm, 07/18/20 9:23:00 EDT, Height, [...] 12/02/20 13:02:00 EDT, Route to Pharmacy Electronically, [facility]/pharmacy #[id number], Partial fill upon patient request if the prescription i... Start Date: 12/02/20 Status: Ordered losartan 25 mg oral tablet 25 mg, 1, tablet, By Mouth, Daily, # 30 tablet, Refills 6, Tot. Refills 6, Maintenance, 07/18/20 10:06:00 EDT, Route to Pharmacy Electronically, [facility]/pharmacy #[id number], Partial fill upon patient request if the prescription is for a schedule II opioid drug... Start Date: 07/18/20 Stop Date: 02/13/21 Status: Ordered metFORMIN 1000 mg oral tablet 1 tablet = 1,000 mg, By Mouth, 2 times a day, # 60 tablet, 5 Refills, Maintenance, 12/02/20 13:01:00 EDT, Tablet, [facility]/pharmacy #[id number], [...]
--- OUTSIDE RECORDS SUMMARY | 2023-09-21 20:48 | XMS_ITS | Continuity of Care Document ---
Author Organization [facility] Adult Address [address] [place] [address]- Care Team Providers Care Desk Clerk Name Role Phone Brandon MIRANDA, [facility] Primary Care Physician Encounter [facility] [place] Date(s): 09/03/20 - 10/03/20 [facility] Adult [address] [place] [address]- Attending Physician: Admyehuda, Ashley Admitting Physician: AdmtrAshley [...] 07/18/20 10:07:00 EDT, Route to Pharmacy Electronically, [facility]/pharmacy #[id number], 193, cm, 07/18/20 9:23:00 [...] 07/18/20 10:06:00 EDT, Route to Pharmacy Electronically, [facility]/pharmacy #[id number], Partial fill upon patient request if the prescription is for a schedule II opioid drug... Start Date: 07/18/20 Stop Date: 02/13/21 Status: Ordered omeprazole 20 mg oral enteric coated capsule 1 capsule = 20 mg, By Mouth, Daily, before a meal, # 30 capsule, 11 Refills, Maintenance, 07/22/20 9:34:00 EDT, EC Capsule, [facility]/pharmacy #[id number], 193, cm, 07/18/20 10:08:00 EDT, Height, 125, [...]
--- OUTSIDE RECORDS SUMMARY | 2023-09-21 20:48 | XMS_ITS | Continuity of Care Document ---
Author Organization [facility] Adult Address [address] [place] [address]- Care Team Providers Care Perfume Maker Name Role Phone Brandon MIRANDA, [facility] Primary Care Physician Encounter [facility] [place] Date(s): 08/18/20 - 08/25/20 [facility] Adult [address] [place] [address]- Encounter Diagnosis HTN (hypertension)(Discharge Diagnosis) - 08/18/20 Attending Physician: Brandon MIRANDA, [facility] Allergies, Adverse Reactions, Alerts Substance Reaction Severity Status NKA Active Immunizations Given and Recorded Vaccine Date Status Refusal Reason tetanus/diphtheria/pertussis, acel(Tdap) 12/27/18 Given tetanus-diphtheria toxoids (Td) 12/01/11 Recorded Medications diltiazem 180 mg/24 hours oral capsule, extended release 180 mg, 1, capsule, By Mouth, Daily, # 30 capsule, Refills 11, Tot. Refills 11, Maintenance, 07/18/20 10:07:00 EDT, Route to Pharmacy Electronically, [facility]/pharmacy #[id number], 193, cm, 07/18/20 9:23:00 EDT, Height, [...] 07/18/20 10:06:00 EDT, Route to Pharmacy Electronically, [facility]/pharmacy #[id number], Partial fill upon patient request if the prescription is for a schedule II opioid drug... Start Date: 07/18/20 Stop Date: 02/13/21 Status: Ordered omeprazole 20 mg oral enteric coated capsule 1 capsule = 20 mg, By Mouth, Daily, before a meal, # 30 capsule, 11 Refills, Maintenance, 07/22/20 9:34:00 EDT, EC Capsule, [facility]/pharmacy #[id number], 193, cm, 07/18/20 10:08:00 EDT, Height, [...] inical Service Informant HTN (hypertension) Discharge Diagnosis 08/18/20 Vital Signs Most recent to oldest [Reference Range]: 1 Height 193 cm (08/18/20 9:51 AM) Social History Social History Type Response Smoking Status 10 or more cigarette s (1/2 pack or more)/day in last 30 days entered on: 01/12/19 Sex
--- OUTSIDE RECORDS SUMMARY | 2023-09-21 20:48 | XMS_ITS | Continuity of Care Document ---
Author Organization [facility] Address [address] [place] [address]- Care Team Providers Care Teaching Artist Name Role Phone Brandon MIRANDA, Aubrey Primary Care Physician ( [phone] Encounter [facility] [place] Date(s): 06/10/22 - 10/08/22 [facility] [address] [place] [address]- Attending Physician: Ever Kirkland MD Admitting Physician: Ever Kirkland MD Referring Physician: David Saleh MD Allergies, Adverse Reactions, Alerts No Known [...] tablet, 3 Refills, Maintenance, 03/16/22 12:18:00 EST, [id number], 193, cm, 03/12/22 10:49:00 EST, Height, 107, [...] Maintenance, :52:00 EDT, [facility]acy [facility], [facility] [...] 90 capsule, 0 Refills, Maintenance, 05/21/22 16:20:00EDT, [facility]/pharmacy #[id number], Partial fill upon patient request if the prescription is for a schedule IIopioid drug., 175, cm, 05/19/22 9:32:00 EDT, Height... Start Date: 05/21/22 Status: Ordered losartan 50 mg oral tablet 75 mg, 1.5, tablet, By Mouth, Daily, # 45 tablet, Refills 5, Tot. Refills 5, Maintenance, 07/06/22 15:32:00 EDT, [facility], [facility] [...] capsule, 1 Refills, Maintenance, 07/16/22 11:48:00 EDT, [facility]/pharmacy #[id number], PATIENT NEEDS TO CALL OFFICE FOR [...] tablet, 11 Refills, Maintenance, 06/14/22 9:12:00 EDT, [facility]/pharmacy #[id number], Partial fill [...] Care Nurse Name: Aubrey Taylor MD Position: [facility] Physician - Primary Care Member Role: PCP Address: Address: [address] [facility] 3rd [place] [address]- [place] Name: Maricruz Vinson RN Position: [facility] RN Member Role: Primary Care Nurse Name: Melodie Hampton Position: [facility] Onco RN Member Role: Primary Care Nurse Name: Emeka Patel MD Position: [facility] Renal MD Member Role: Lifetime Consulting Physician Address: Address: [address] [facility] [address] [facility], [place] [address]- [place] Name: Kevin Cool RN Position: [facility] RN Member Role: Primary Care Nurse Care Team Related Persons Name: ELIJAH MARIA Address: home [address] [place] [address] Name: ABDIRAHMAN LEON Name: JONATHAN LEON Address: home [address] [place] [address]
--- OUTSIDE RECORDS SUMMARY | 2023-09-21 20:48 | XMS_ITS | Continuity of Care Document ---
Author Organization [facility] Address [address] [place] [address]- Care Team Providers Care Digital Media Representative Name Role Phone Brandon MIRANDA, Aubrey Primary Care Physician ( [phone] Encounter [facility] Date(s): 10/29/21 - 02/07/22 [facility] [address] [place] [address]- Attending Physician: Nae Carrillo MD Referring Physician: Aubrey Taylor MD Allergies, [...] capsule, 1 Refills, Maintenance, 11/20/21 19:17:00 EDT, [facility]/pharmacy #[id number], 193, cm, 09/25/21 8:45:00 EDT, [...] 10/26/21 8:03:00 EDT, Route to Pharmacy Electronically, [facility] [id number], 193, cm, 09/25/21 8:45:00 EDT, Height Start Date: 10/26/21 Stop Date: 11/25/21 Status: Ordered losartan 50 mg oral tablet 1 tablet, By Mouth, Daily, # 90 tablet, 1 Refills, Maintenance, 01/13/22 9:33:00 EST, [facility] 616[facility], 193, cm, 01/01/22 9:25:00 EDT, Height, 110.2, kg, 01/01/22 9:25:00 EDT, Dry Weight Start Date: 01/13/22 Status: Ordered metFORMIN 1000 mg oral tablet 1 tablet, By Mouth, 2 times a day, # 60 tablet, 5 Refills, Maintenance, 01/13/22 9:33:00 EST, [facility] 54640, 193, cm, 01/01/22 9:25:00 EDT, Height, 110.2, [...] EST, Tablet, [facility], 193robert, 05/05/21 11:20:... Start [...] Team Personnel Name: Aubrey Taylor MD Position: [facility] Primary Care Physician Member Role: PCP Address: Address: [address] [place] [address]- Name: Tarah Schmitt RN Position: S RN Member Role: Primary Care Nurse Name: Maricruz Vinson RN Position: S RN Member Role: Primary Care Nurse Name: Melodie Hampton Position: [facility] Onco RN Member Role: Primary Care Nurse Care Team Related Persons Name: ELIJAH MARIA Address: home [address] [place] [address] Name: ABDIRAHMAN LEON Name: JONATHAN LEON Address: home [address] [place] [address]
--- OUTSIDE RECORDS SUMMARY | 2023-09-21 20:48 | XMS_ITS | Continuity of Care Document ---
Author Organization [facility] Adult Address [address] [place] [address]- Care Team Providers Care Escrow Assistant Name Role Phone Brandon MIRANDA, [facility] Primary [facility] Physician Encounter [facility] [place] Date(s): 05/15/21 - 05/22/21 [facility] Adult [address] [place] [address]- Encounter Diagnosis Cluster headache(Discharge Diagnosis) - 05/15/21 HTN (hypertension)(Discharge Diagnosis) - 05/15/21 Hyperlipidemia(Discharge Diagnosis) - 05/15/21 GERD (gastroesophageal reflux disease)(Discharge Diagnosis) - 05/15/21 Tobacco use(Discharge Diagnosis) - 05/15/21 Attending Physician: Brandon MIRANDA, [facility] Allergies, Adverse Reactions, Alerts No Known Allergies Immunizations Given and Recorded Vaccine Date Status Refusal Reason SARS-CoV-2 (COVID-19) mRNA BNT-162b2 vac 08/13/20 Recorded tetanus/diphtheria/pertussis, acel(Tdap) 12/27/18 Given tetanus-diphtheria toxoids (Td) 12/01/11 Recorded Medications atorvastatin 20 mg oral tablet 1 tablet = 20 mg, By Mouth, Daily, # 90 tablet, 3 Refills, Maintenance, 05/15/21 10:02:00 EDT, Tablet, [id number], Partial fill upon patient request if the [...] 01/13/21 10:41:00 EST, Route to Pharmacy Electronically, [facility]/pharmacy #[id number], 193, cm, 01/13/21 10:15:00 EST, Height Start Date: 01/13/21 Stop Date: 01/08/22 Status: Ordered Emgality Prefilled Syringe 100 mg/mL subcutaneous solution = 300 mg, Subcutaneous Injection, Every 28 days, # 3 kit, 5 Refills, Maintenance, 05/05/21 11:56:00EST, Solution, [facility], Partial fill upon patient [...] 02/23/21 11:18:00 EST, Route to Pharmacy Electronically, [facility]/pharmacy #[id number], Partial fill upon patient request if the prescription i... Start Date: 02/23/21 Status: Ordered losartan 50 mg oral tablet 50 mg, 1, tablet, By Mouth, Daily, # 30 tablet, Refills 3, Tot. Refills 3, Maintenance, 05/15/21 10:00:00 EDT, [id number], Partial fill upon patient request if the prescription is for a schedule II opioid drug... Start Date: 05/15/21 Stop Date: 09/12/21 Status: Ordered metFORMIN 1000 mg oral tablet 1 tablet = 1,000 mg, By Mouth, 2 times a day, # 60 tablet, 5 Refills, Maintenance, 01/13/21 10:41:00 EST, Tablet, [facility]/pharmacy #[id number], Partial fill upon patient request if the prescription is for a schedule II opioid drug., 193, cm, 01/13/21 10:15:00 E... Start Date: 01/13/21 Status: Ordered NuLYTELY with Flavor Packs oral powder for reconstitution See Instructions, Drink 240mL every 15-20 minutes until first half is gone. Repeat 6 hours prior toprocedure., # 4,000 mL, 0 Refills, Maintenance, 03/19/21 12:55:00 EST, [facility]/pharmacy #[id number], Partial fill upon patient request if the prescription is fo... Start Date: 03/19/21 Status: Ordered omeprazole 20 mg oral enteric coated capsule 1 capsule = 20 mg, By Mouth, Daily, before a meal, # 30 capsule, 11 Refills, Maintenance, 01/13/21 10:41:00 EST, EC Capsule, [facility]/pharmacy #[id number], 193, cm, 01/13/21 10:15:00 EST, Height Start Date: 01/13/21 Stop Date: 01/08/22 Status: Ordered SUMAtriptan 100 mg oral tablet 1 tablet = 100 mg, By Mouth, Daily, PRN for migraine headache, may repeat dose after 2 hours up to a maximum of 2, # 9 tablet, 0 Refills, Acute 02/08/23 16:46:00 EST, 05/05/21 16:45:00 EST, Tablet, [facility], 193, cm, 05/05/21 11:20:... [...] Clinical Service Informant Cluster headache Discharge Diagnosis 05/15/21 HTN (hypertension) Discharge Diagnosis 05/15/21 Hyperlipidemia Discharge Diagnosis 05/15/21 GERD (gastroesophageal reflux disease) Discharge Diagnosis 05/15/21 Tobacco use Discharge Diagnosis 05/15/21 Vital Signs Most recent to oldest [Reference Range]: 1 Height 193 cm (05/15/21 8:55 AM) Weight Obtained Via Patient/family state d (05/15/21 8:55 AM) Social History Social History Type Response Smoking Status 10 or more cigarette s (1/2 pack or more)/day in last 30 days entered on: 01/12/19 Sex
--- OUTSIDE RECORDS SUMMARY | 2023-09-21 20:48 | XMS_ITS | Continuity of Care Document ---
Author Organization [facility] Adult Address [address] [place] [address]- Care Team Providers Care Hat Braider Name Role Phone Brandon MIRANDA, Aubrey Primary Care Physician Encounter [facility] [place] Date(s): 04/14/20 - 04/21/20 [facility] Adult [address] [place] [address]- Attending Physician: Aubrey Taylor MD Allergies, Adverse Reactions, Alerts Substance Reaction Severity Status NKA Active Immunizations Given and Recorded Vaccine Date Status Refusal Reason tetanus/diphtheria/pertussis, acel(Tdap) 12/27/18 Given Medications diltiazem 180 mg/24 hours oral capsule, extended release 180 mg, 1, capsule, By Mouth, Daily, # 30 capsule, Refills 11, Tot. Refills 11, Maintenance, 01/09/20 10:49:00 EST, Route to Pharmacy Electronically, [facility]/pharmacy #[id number], 193, cm, 05/14/19 10:06:00 EDT, Height, 125, kg, 12/12/18 13:42:00 EDT, Dry Weight Start Date: 01/09/20 Stop Date: 01/03/21 Status: Ordered ibuprofen 600 mg oral tablet 600 mg, 1, tablet, By Mouth, Every 8 hours, PRN, # 30 tablet, Refills 0, Tot. Refills 0, Acute 04/28/20 13:19:00 EST, Pain , Moderate, 03/31/20 13:19:00 EST, Route to Pharmacy Electronically, [facility]/pharmacy #[id number], Partial fill upon patient request if th... Start Date: 03/31/20 Stop Date: 04/28/20 Status: Ordered omeprazole 20 mg oral enteric coated capsule 1 capsule = 20 mg, By Mouth, 2 times a day, before a meal, # 60 capsule, 2 Refills, Maintenance, 01/09/20 10:42:00 EST, EC Capsule, [facility]/pharmacy #[id number], 193, cm, 05/14/19 10:06:00 EDT, [...] 05/17/20 16:47:00 EDT, 04/17/20 16:47:00 EST, Tablet, [facility]/pharmacy #[id number], Partial fill upon patient request if the prescription is for a sche... Start Date: 04/17/20 Stop Date: 05/17/20 Status: Ordered Problem List Condition Effective Dates Status Health Status Inform ant Cluster headache(Confirmed) Active GERD (gastroesophageal reflu x disease)(Confirmed) Active Hyperlipidemia(Confirmed) Active HTN (hypertension)(Confirmed) Active Elevated cholesterol with hi gh triglycerides(Confirmed) 01/11/20 Active Obesity(Confirmed) Active Prediabetes(Confirmed) Active Tobacco use(Confirmed) Active Vital Signs Most recent to oldest [Reference Range]: 1 Height 193 cm (04/14/20 12:33 PM) Social History Social History Type Response Smoking Status 10 or more cigarette s (1/2 pack or more)/day in last 30 days entered on: 01/12/19 Sex
--- OUTSIDE RECORDS SUMMARY | 2023-09-21 20:48 | XMS_ITS | Continuity of Care Document ---
Author Organization [facility] Adult Address [address] [place] [address]- Care Team Providers Care Tie Up Worker Name Role Phone Aubrey Taylor MD Primary Care Physician Encounter [facility] [place] Date(s): 08/14/21 - 12/12/21 [facility] Adult [address] [place] [address]- Attending Physician: Aubrey Taylor MD Allergies, Adverse [...] kit, 5 Refills, Maintenance, 05/05/21 11:56:00EST, Solution, [facility], Partial fill upon [...] Pharmacy Electronically, [facility] [id number], 193, cm, 09/25/21 8:45:00 EDT, Height Start Date: 10/26/21 Stop Date: 11/25/21 Status: Ordered losartan 50 mg oral tablet 75 mg, 1.5, tablet, By Mouth, Daily, # 90 tablet, Refills 1, Tot. Refills 1, Maintenance, 09/01/21 13:55:00 EDT, [id number] Partial fill upon patient request [...] 02/08/23 16:46:00 EST, 05/05/21 16:45:00 EST, Tablet, [facility], 193, cm, 05/05/21 [...] Care team information Personnel Name: Brandon MIRANDA, [facility] Address: Address: [address] [facility] 3rd [address] [place], [place] [address]
--- OUTSIDE RECORDS SUMMARY | 2023-09-21 20:48 | XMS_ITS | Continuity of Care Document ---
Author Organization [facility] Adult Address [address] [place] [address]- Care Team Providers Care Contracts Attorney Name Role Phone Brandon MIRANDA, [facility] Primary Care Physician Encounter [facility] [place] Date(s): 01/16/21 - 05/16/21 [facility] Adult [address] [place] [address]- Attending Physician: Brandon MIRANDA, Aubrey Allergies, Adverse Reactions, Alerts No Known Allergies Immunizations Given and Recorded Vaccine Date Status Refusal Reason SARS-CoV-2 (COVID-19) mRNA BNT-162b2 vac 08/13/20 Recorded tetanus/diphtheria/pertussis, acel(Tdap) 12/27/18 Given tetanus-diphtheria toxoids (Td) 12/01/11 Recorded Medications atorvastatin 20 mg oral tablet 1 tablet = 20 mg, By Mouth, Daily, # 90 tablet, 3 Refills, Maintenance, 05/15/21 10:02:00 EDT, Tablet, [facility]/pharmacy #[id number], Partial fill upon patient request [...] kit, 5 Refills, Maintenance, 05/05/21 11:56:00EST, Solution, [facility], Partial fill upon patient [...] 02/23/21 11:18:00 EST, Route to Pharmacy Electronically, [facility]/pharmacy #[id number], Partial fill upon patient request if the prescription i... Start Date: 02/23/21 Status: Ordered losartan 50 mg oral tablet 50 mg, 1, tablet, By Mouth, Daily, # 30 tablet, Refills 3, Tot. Refills 3, Maintenance, 05/15/21 10:00:00 EDT, Route to Pharmacy Electronically, [facility]/pharmacy #[id number], Partial fill upon patient request if the prescription is for a schedule II opioid drug... Start Date: 05/15/21 Stop Date: 09/12/21 Status: Ordered metFORMIN 1000 mg oral tablet 1 tablet = 1,000 mg, By Mouth, 2 times a day, # 60 tablet, 5 Refills, Maintenance, 01/13/21 10:41:00 EST, Tablet, [facility]/pharmacy #[id number], Partial fill upon patient request if the prescription is for a schedule II opioid drug., 193, cm, 01/13/21 10:15:00 E... Start Date: 01/13/21 Status: Ordered NuLYTELY with Flavor Packs oral powder for reconstitution See Instructions, Drink 240mL every 15-20 minutes until first half is gone. Repeat 6 hours prior toprocedure., # 4,000 mL, 0 Refills, Maintenance, 03/19/21 12:55:00 EST, [facility]/pharmacy #[id number], Partial fill upon patient request if the prescription is fo... Start Date: 03/19/21 Status: Ordered omeprazole 20 mg oral enteric coated capsule 1 capsule = 20 mg, By Mouth, Daily, before a meal, # 30 capsule, 11 Refills, Maintenance, 01/13/21 10:41:00 EST, EC Capsule, [facility]/pharmacy #[id number], 193, cm, 01/13/21 10:15:00 EST, Height Start Date: 01/13/21 Stop Date: 01/08/22 Status: Ordered SUMAtriptan 100 mg oral tablet 1 tablet = 100 mg, By Mouth, Daily, PRN for migraine headache, may repeat dose after 2 hours up to a maximum of 2, # 9 tablet, 0 Refills, Acute 02/08/23 16:46:00 EST, 05/05/21 16:45:00 EST, Tablet, [facility], 193, cm, 05/05/21 11:20:... [...]
--- OUTSIDE RECORDS SUMMARY | 2023-09-21 20:48 | XMS_ITS | Continuity of Care Document ---
Author Organization [facility] Address [address] [place] [address]- Care Team Providers Care Chief Clinical Dietitian Name Role Phone uAbrey Taylor MD Primary Care Physician Encounter [facility] Date(s): 02/12/22 - 03/14/[address] [id number] Allergies, Adverse Reactions, Alerts No [...] 1 Refills, Maintenance, 11/20/21 19:17:00 EDT, [facility]/pharmacy #[id number], 193, cm, 09/25/21 8:45:00 EDT, Height Start Date: 11/20/21 Stop Date: 05/19/22 Status: Ordered Emgality Prefilled Syringe 100 mg/mL subcutaneous solution = 300 mg, Subcutaneous Injection, Every 28 days, # 3 kit, 5 Refills, Maintenance, 05/05/21 11:56:00EST, Solution, [facility], Partial fill upon patient [...] 02/23/22 8:53:00 EST, Route to Pharmacy Electronically, [facility] [id number], 193, cm, 02/16/22 11:18:00 EST, Height, 107, kg, 02/16/22 11:18:00... Start Date: 02/23/22 Stop Date: 03/25/22 Status: Ordered loperamide 2 mg oral capsule 4 mg, 2, capsule, By Mouth, Every 4 hours, not to exceed 8 capsules, or 16 mg, in 24 hours after each loose stool, # 60 capsule, Refills 1, Tot. Refills 1, Maintenance, 03/12/22 10:33:00 EST, Route to Pharmacy Electronically, [facility]/pharmacy #[id number], Part... Start Date: 03/12/22 Status: Ordered losartan 50 mg oral tablet 1 tablet, By Mouth, Daily, # 90 tablet, 1 Refills, Maintenance, 01/13/22 9:33:00 EST, [id number], 193, cm, 01/01/22 9:25:00 EDT, Height, 110.2, kg, 01/01/22 9:25:00 EDT, Dry Weight Start Date: 01/13/22 Status: Ordered metFORMIN 1000 mg oral tablet 1 tablet, By Mouth, 2 times a day, # 60 tablet, 5 Refills, Maintenance, 01/13/22 9:33:00 EST, [facility] [id number], 193, cm, 01/01/22 9:25:00 EDT, Height, 110.2, kg, 01/01/22 9:25:00 EDT, Dry Weight Start Date: 01/13/22 Status: Ordered NuLYTELY with Flavor Packs oral powder for reconstitution See Instructions, Drink 240mL every 15-20 minutes until first half is gone. Repeat 6 hours prior toprocedure., # 4,000 mL, 0 Refills, Maintenance, 03/19/21 12:55:00 EST, [facility]/pharmacy #[id number], Partial fill upon patient request [...] drowsiness, # 30 tablet, 0 Refills, Maintenance, 03/12/22 10:33:00 EST, [facility]/pharmacy #[id number], Partial fill upon patient request if the prescription is for a schedule II opioid dr... Start Date: 03/12/22 Status: Ordered SUMAtriptan 100 mg oral tablet 1 tablet = 100 mg, By Mouth, Daily, PRN for migraine headache, may repeat dose after 2 hours up to a maximum of 2, # 9 tablet, 0 Refills, Acute 02/08/23 16:46:00 EST, 05/05/21 16:45:00 EST, Tablet, [facility], 193, cm, 05/05/21 11:20:... [...] Team Personnel Name: Aubrey Taylor MD Position: [facility] Primary Care Physician Member Role: PCP Address: Address: [address] [place] [address] [address] [place], [place] [address] Name: Tarah Schmitt RN Position: S RN Member Role: Primary Care Nurse Name: Maricruz Vinson RN Position: S RN Member Role: Primary Care Nurse Name: Melodie Hampton Position: [facility] Onco RN Member Role: Primary Care Nurse Care Team Related Persons Name: ELIJAH MARIA Address: home [address] [place] [address] Name: ABDIRAHMAN LEON Name: JONATHAN LEON Address: home [address] [place] [address]
--- OUTSIDE RECORDS SUMMARY | 2023-09-21 20:48 | XMS_ITS | Continuity of Care Document ---
Author Organization [facility] Address [address] [place] [address]- Care Team Providers Care Pack Out Operator Name Role Phone Ryan Taylor [facility] Primary Care Physician ( [phone] Encounter [facility] Date(s): 05/14/19 - 05/14/[address] [address]- [facility] Discharge Disposition: A-D/C Home Attending Physician: Villa Angulo MD Admitting Physician: Villa Angulo MD Referring Physician: Villa Angulo MD Allergies, Adverse Reactions, Alerts Substance Reaction Severity Status NKA Active Immunizations Given and Recorded Vaccine Date Status Refusal Reason tetanus/diphtheria/pertussis, acel(Tdap) 12/27/18 Given Medications DilTIAZem Hydrochloride ER 180 mg/24 hours oral capsule, extended release See Instructions, # 30 capsule, Refills 5 Tot. Refills 5, TAKE 1 CAPSULE BY MOUTH EVERY DAY, [id number] Start Date: 12/18/18 Status: Ordered NuLYTELY with Flavor Packs oral [...] Obesity(Confirmed) Active Prediabetes(Confirmed) Active Tobacco use(Confirmed) Active Procedures Procedure Date Related Diagnosis Body Site Status Colonoscopy 05/14/19 Completed [facility]. Vital Signs Most recent to oldest [Reference Range]: 1 2 3 Height 193 cm (05/14/19 10:06 AM) Weight 123 kg (05/14/19 10:06 AM) Oxygen Saturation [94-100 %] 92 % *L* (05/14/19 11:18 AM) 91 % *L* (05/14/19 11:07 AM) 93 % *L* (05/14/19 10:06 AM) Pulse Rate [55-90 bpm] 68 bpm (05/14/19 10:06 AM) Body Mass Index [18.5-24.99] 33.02 *>HHI* (05/14/19 10:06 AM) Blood Pressure [90-138/55-84 mm Hg] 153/96mm Hg *H* (05/14/19 11:18 AM) 152/85mm Hg *H* (05/14/19 11:07 AM) 159/102mm Hg *H* (05/14/19 10:06 AM) Respiratory Rate [16-30 br/min] 16 br/min (05/14/19 11:18 AM) 16 br/min (05/14/19 11:07 AM) 20 br/min (05/14/19 10:06 AM) Temperature [96.8-100.4 DegF] 97.3 DegF (05/14/19 10:06 AM) Mode of Delivery (Oxygen) Room air (05/14/19 11:18 AM) Room air (05/14/19 11:07 AM) Room air (05/14/19 10:06 AM) Temperature Route Temporal (05/14/19 10:06 AM) Social History Social History Type Response Smoking Status 10 or more cigarette s (1/2 pack or more)/day in last 30 days entered on: 01/12/19 Sex
--- OUTSIDE RECORDS SUMMARY | 2023-09-21 20:48 | XMS_ITS | Continuity of Care Document ---
Author Organization [facility] Address [address] [place] [address] ekta, [address] [place] [address]- Care Team Providers Care Crystal Calibrator Name Role Phone Brandon MIRANDA, [facility] Primary Care Physician ( [phone] Encounter [facility] Date(s): 11/17/21 - 12/17/21 [facility] [address] [place] [address], [address] [place], [place] [address] Allergies, Adverse Reactions, Alerts No Known [...] kit, 5 Refills, Maintenance, 05/05/21 11:56:00EST, Solution, [facility], Partial fill upon patient [...] 10/26/21 8:03:00 EDT, Route to Pharmacy Electronically, [facility] ST[facility] [id number], 193robert, 09/25/21 8:45:00 EDT, Height Start Date: 10/26/21 Stop Date: 11/25/21 Status: Ordered losartan 50 mg oral tablet 75 mg, 1.5, tablet, By Mouth, Daily, # 90 tablet, Refills 1, Tot. Refills 1, Maintenance, 09/01/21 13:55:00 EDT, [id number], Partial fill upon patient request if the prescription is for a schedule II opioid dr... Start Date: 09/01/21 Stop Date: 12/30/21 Status: Ordered metFORMIN 1000 mg oral tablet 1 tablet = 1,000 mg, By Mouth, 2 times a day, # 60 tablet, 5 Refills, Maintenance, 01/13/21 10:41:00 EST, Tablet, [facility]/pharmacy #[id number], Partial fill upon patient request if the prescription is for a schedule II opioid drug., 193, cm, 01/13/21 10:15:00 E... Start Date: 01/13/21 Status: Ordered NuLYTELY with Flavor Packs oral powder for reconstitution See Instructions, Drink 240mL every 15-20 minutes until first half is gone. Repeat 6 hours prior toprocedure., # 4,000 mL, 0 Refills, Maintenance, 03/19/21 12:55:00 EST, [facility]/pharmacy #[id number], Partial fill upon patient request if the prescription is fo... Start Date: 03/19/21 Status: Ordered omeprazole 20 mg oral enteric coated capsule See Instructions, TAKE 1 CAPSULE BY MOUTH DAILY BEFORE A MEAL X30 DAYS, # 90 capsule, 1 Refills, Maintenance, 11/20/21 19:18:00 EDT, [facility]/pharmacy #[id number], PATIENT NEEDS TO CALL OFFICE FOR APPOINTMENT, 193, cm, 09/25/21 8:45:00 EDT, Height Start Date: 11/20/21 Status: Ordered SUMAtriptan 100 mg oral tablet 1 tablet = 100 mg, By Mouth, Daily, PRN for migraine headache, may repeat dose after 2 hours up to a maximum of 2, # 9 tablet, 0 Refills, Acute 02/08/23 16:46:00 EST, 05/05/21 16:45:00 EST, Tablet, [facility], 193, cm, 05/05/21 11:20:... [...] team information Personnel Name: Brandon MIRANDA, [facility] Address: Address: [address] [place] [address] [address] [place], [place] [address]
--- OUTSIDE RECORDS SUMMARY | 2023-09-21 20:48 | XMS_ITS | Continuity of Care Document ---
Author Organization [facility] Address [address] [place] [address], [address] [place] [address]- Care Team Providers Care Catering Director Name Role Phone Brandon MIRANDA, Aubrey Primary Care Physician Encounter [facility] Date(s): 01/19/22 - 01/26/22 [facility] [address] [place] [address], [address] [place], [place] [address] Attending Physician: Bang Jeronimo DO Allergies, Adverse [...] capsule, 1 Refills, Maintenance, 11/20/21 19:17:00 EDT, [facility]/pharmacy #[id number], 193, cm, 09/25/21 8:45:00 EDT, Height Start Date: 11/20/21 Stop Date: 05/19/22 Status: Ordered Emgality Prefilled Syringe 100 mg/mL subcutaneous solution = 300 mg, Subcutaneous Injection, Every 28 days, # 3 kit, 5 Refills, Maintenance, 05/05/21 11:56:00EST, Solution, [facility], Partial fill upon patient request [...] 10/26/21 8:03:00 EDT, Route to Pharmacy Electronically, [facility] [id number], 193, cm, 09/25/21 8:45:00 EDT, Height Start Date: 10/26/21 Stop Date: 11/25/21 Status: Ordered losartan 50 mg oral tablet 1 tablet, By Mouth, Daily, # 90 tablet, 1 Refills, Maintenance, 01/13/22 9:33:00 EST, [facility] 75772, 193, cm, 01/01/22 9:25:00 EDT, Height, 110.2, kg, 01/01/22 9:25:00 EDT, Dry Weight Start Date: 01/13/22 Status: Ordered metFORMIN 1000 mg oral tablet 1 tablet, By Mouth, 2 times a day, # 60 tablet, 5 Refills, Maintenance, 01/13/22 9:33:00 EST, [facility] 12332, 193, cm, 01/01/22 9:25:00 EDT, Height, 110.2, [...] 02/08/23 16:46:00 EST, 05/05/21 16:45:00 EST, Tablet, [facility], 193robert, 05/05/21 11:20:... Start Date: [...] Team Personnel Name: Aubrey Taylor MD Position: [facility] Primary Care Physician Member Role: PCP Address: Address: [address] [place] [address]- Name: Tarah Schmitt RN Position: S RN Member Role: Primary Care Nurse Name: Maricruz Vinson RN Position: S RN Member Role: Primary Care Nurse Name: Melodie Hampton Position: [facility] Onco RN Member Role: Primary Care Nurse Care Team Related Persons Name: ELIJAH MARIA Address: home [address] [place], [place] Name: ABDIRAHMAN LEON Name: JONATHAN LEON Address: home [address] [place] [address]
--- OUTSIDE RECORDS SUMMARY | 2023-09-21 20:48 | XMS_ITS | Continuity of Care Document ---
Author Organization [facility] Address [address] [place] [address]- Care Team Providers Care Greige Goods Examiner Name Role Phone Brandon MIRANDA, [facility] Primary Care Physician Encounter [facility] Date(s): 01/09/20 - 02/08/20 [facility] Adult [address] [place] [address]- Allergies, Adverse Reactions, Alerts Substance Reaction Severity Status NKA Active Immunizations Given and Recorded Vaccine Date Status Refusal Reason tetanus/diphtheria/pertussis, acel(Tdap) 12/27/18 Given Medications diltiazem 180 mg/24 hours oral capsule, extended release 180 mg, 1, capsule, By Mouth, Daily, # 30 capsule, Refills 11, Tot. Refills 11, Maintenance, 01/09/20 10:49:00 EST, Route to Pharmacy Electronically, [facility]/pharmacy #[id number], 193, cm, 05/14/19 10:06:00 EDT, Height, 125, kg, 12/12/18 13:42:00 EDT, Dry Weight Start Date: 01/09/20 Stop Date: 01/03/21 Status: Ordered omeprazole 20 mg oral enteric coated capsule 1 capsule = 20 mg, By Mouth, 2 times a day, before a meal, # 60 capsule, 2 Refills, Maintenance, 01/09/20 10:42:00 EST, EC Capsule, [facility]/pharmacy #[id number], 193, cm, 05/14/19 10:06:00 EDT, Height, [...]
--- OUTSIDE RECORDS SUMMARY | 2023-09-21 20:48 | XMS_ITS | Continuity of Care Document ---
Author Organization [facility] ter Address [address] [place] [address]- Care Team Providers Care Powder Mixer Name Role Phone Aubrey Taylor MD Primary Care Physician Encounter [facility] Date(s): 12/21/21 - 01/31/[address] [address] Attending Physician: Bang Jeronimo DO Admitting Physician: Bang Jeronimo DO Allergies, Adverse Reactions, [...] capsule, 1 Refills, Maintenance, 11/20/21 19:17:00 EDT, [facility]/pharmacy #[id number], 193, cm, 09/25/21 8:45:00 EDT, Height Start Date: 11/20/21 Stop Date: 05/19/22 Status: Ordered Emgality Prefilled Syringe 100 mg/mL subcutaneous solution = 300 mg, Subcutaneous Injection, Every 28 days, # 3 kit, 5 Refills, Maintenance, 05/05/21 11:56:00EST, Solution, [facility], Partial fill upon patient [...] 10/26/21 8:03:00 EDT, Route to Pharmacy Electronically, [facility] 57[facility], 193, cm, 09/25/21 8:45:00 EDT, Height Start Date: 10/26/21 Stop Date: 11/25/21 Status: Ordered losartan 50 mg oral tablet 1 tablet, By Mouth, Daily, # 90 tablet, 1 Refills, Maintenance, 01/13/22 9:33:00 EST, [facility] 89359, 193, cm, 01/01/22 9:25:00 EDT, Height, 110.2, kg, 01/01/22 9:25:00 EDT, Dry Weight Start Date: 01/13/22 Status: Ordered metFORMIN 1000 mg oral tablet 1 tablet, By Mouth, 2 times a day, # 60 tablet, 5 Refills, Maintenance, 01/13/22 9:33:00 EST, [facility] 19680, 193, cm, 01/01/22 9:25:00 EDT, Height, 110.2, [...] 16:46:00 EST, 05/05/21 16:45:00 EST, Tablet, [facility], 193robert, 05/05/21 11:20:... Start [...] Team Personnel Name: Aubrey Taylor MD Position: [facility] Primary Care Physician Member Role: PCP Address: Address: [address] [place] [address]- Name: Tarah Schmitt RN Position: [facility] RN Member Role: Primary Care Nurse Name: Maricruz Vinson RN Position: S RN Member Role: Primary Care Nurse Name: Melodie Hampton Position: [facility] Onco RN Member Role: Primary Care Nurse Care Team Related Persons Name: ELIJAH MARIA Address: home [address] [place], [place] Name: ABDIRAHMAN LEON Name: JONATHAN LEON Address: home [address] [place] [address]
--- OUTSIDE RECORDS SUMMARY | 2023-09-21 20:48 | XMS_ITS | Continuity of Care Document ---
Author Organization [facility] ter Address [address] [place] [address]- Care Team Providers Care President And Cmo Name Role Phone Aubrey Taylor MD Primary Care Physician Encounter [facility] Date(s): 02/24/22 - 03/27/[address] [address] Attending Physician: David Saleh MD Admitting Physician: David Saleh MD Referring Physician: David Saleh MD Allergies, Adverse Reactions, Alerts No Known Allergies Immunizations Given and Recorded Vaccine Date Status Refusal Reason SARS-CoV-2 (COVID-19) mRNA BNT-162b2 vac 08/13/20 Recorded tetanus/diphtheria/pertussis, acel(Tdap) 12/27/18 Given tetanus-diphtheria toxoids (Td) 12/01/11 Recorded Medications atorvastatin 20 mg oral tablet 1 tablet, By Mouth, Daily, # 90 tablet, 3 Refills, Maintenance, 03/16/22 12:18:00 EST, [facility], 193, cm, 03/12/22 10:49:00 EST, Height, 107, kg, 02/16/22 11:18:00 EST, Dry Weight Start Date: 03/16/22 Status: Ordered Azithromycin 5 Day Dose Pack 250 mg oral tablet 1 pack/packet, By Mouth, Once, as directed on package labeling, # 6 tablet, 0 Refills, Soft Stop, 09/25/21 11:02:00 EDT, Tablet, [id number], Partial fill upon patient request if the [...] capsule, 1 Refills, Maintenance, 11/20/21 19:17:00 EDT, [facility]/pharmacy #[id number], 193, cm, 09/25/21 8:45:00 EDT, [...] 02/23/22 8:53:00 EST, Route to Pharmacy Electronically, [facility] 9[facility]68, 193, cm, 02/16/22 11:18:00 EST, Height, 107, kg, 02/16/22 11:18:00... Start Date: 02/23/22 Stop Date: 03/25/22 Status: Ordered loperamide 2 mg oral capsule 4 mg, 2, capsule, By Mouth, Every 4 hours, not to exceed 8 capsules, or 16 mg, in 24 hours after each loose stool, # 60 capsule, Refills 1, Tot. Refills 1, Maintenance, 03/12/22 10:33:00 EST, Route to Pharmacy Electronically, [facility]/pharmacy #[id number], Part... Start Date: 03/12/22 Status: Ordered losartan 50 mg oral tablet 1 tablet, By Mouth, Daily, # 90 tablet, 1 Refills, Maintenance, 01/13/22 9:33:00 EST, [facility] 29264, 193, cm, 01/01/22 9:25:00 EDT, Height, 110.2, kg, 01/01/22 9:25:00 EDT, Dry Weight Start Date: 01/13/22 Status: Ordered metFORMIN 1000 mg oral tablet 1 tablet, By Mouth, 2 times a day, # 60 tablet, 5 Refills, Maintenance, 01/13/22 9:33:00 EST, [facility] 25196, 193, cm, 01/01/22 9:25:00 EDT, Height, 110.2, kg, 01/01/22 9:25:00 EDT, Dry Weight Start Date: 01/13/22 Status: Ordered NuLYTELY with Flavor Packs oral powder for reconstitution See Instructions, Drink 240mL every 15-20 minutes until first half is gone. Repeat 6 hours prior toprocedure., # 4,000 mL, 0 Refills, Maintenance, 03/19/21 12:55:00 EST, [facility]/pharmacy #[id number], Partial fill upon patient [...] Personnel Name: Aubrey Taylor MD Position: [facility] Primary Care Physician Member Role: PCP Address: Address: [address] [place] [address] [address] [place] [address]- Name: Tarah Schmitt RN Position: [facility] RN Member Role: Primary Care Nurse Name: Maricruz Vinson RN Position: S RN Member Role: Primary Care Nurse Name: Melodie Hampton Position: [facility] Onco RN Member Role: Primary Care Nurse Care Team Related Persons Name: ELIJAH MARIA Address: home [address] [place] [id number] Name: ABDIRAHMAN LEON Name: JONATHAN LEON Address: home [address] [place] [address]
--- OUTSIDE RECORDS SUMMARY | 2023-09-21 20:48 | XMS_ITS | Continuity of Care Document ---
Author Organization [facility] Adult Address [address] [place] [address]- Care Team Providers Care Dba Name Role Phone Brandon MIRANDA, Aubrey Primary Care Physician Encounter [facility] Date(s): 02/04/21 - 03/06/21 [facility] [address] [place] [address]- Attending Physician: Admtr, Ashley Admitting Physician: Admtr, [...] 4 Refills, Maintenance, 01/13/21 10:36:00 EST, Tablet, [facility]/pharmacy #[id number], Partial fill upon patient [...] 02/04/21 16:26:00 EST, Route to Pharmacy Electronically, [facility]/pharmacy #[id number], Partial fill upon patient request if the prescriptio... Start Date: 02/04/21 Status: Ordered diltiazem 180 mg/24 hours oral capsule, extended release 180 mg, 1, capsule, By Mouth, Daily, for 30 days, # 30 capsule, Refills 11, Tot. Refills 11, Hard Stop 01/08/22 10:41:00 EST, 01/13/21 10:41:00 EST, Route to Pharmacy Electronically, [facility]/pharmacy #[id number], 193, cm, 01/13/21 10:15:00 [...] 02/23/21 11:18:00 EST, Route to Pharmacy Electronically, [facility]/pharmacy #[id number], Partial fill upon patient request if the prescription i... Start Date: 02/23/21 Status: Ordered ibuprofen 600 mg oral tablet 600 mg, 1, tablet, By Mouth, Every 8 hours, PRN, # 30 tablet, Refills 1, Tot. Refills 1, Maintenance, Pain , Moderate, 01/13/21 10:32:00 EST, Route to Pharmacy Electronically, [facility]/pharmacy #[id number], Partial fill upon patient [...] 5 Refills, Maintenance, 01/13/21 10:41:00 EST, Tablet, [facility]/pharmacy #[id number], Partial fill upon patient request if the prescription is for a schedule II opioid drug., 193, cm, 01/13/21 10:15:00 E... Start Date: 01/13/21 Status: Ordered omeprazole 20 mg oral enteric coated capsule 1 capsule = 20 mg, By Mouth, Daily, before a meal, # 30 capsule, 11 Refills, Maintenance, 01/13/21 10:41:00 EST, EC Capsule, [facility]/pharmacy #[id number], 193, cm, 01/13/21 10:15:00 [...]
--- OUTSIDE RECORDS SUMMARY | 2023-09-21 20:48 | XMS_ITS | Continuity of Care Document ---
Author Organization [facility] Address [address] [place] [address]- Care Team Providers Care Business Development Consultant Name Role Phone Brandon MIRANDA, [facility] Primary Care Physician Encounter [facility] Date(s): 09/10/21 - 10/10/21 [facility] [address] [place] [address]- Attending Physician: Admyehuda, Ashley Admitting Physician: AdmtrAshley [...] to Pharmacy Electronically, [facility]/pharmacy #[id number], 193, cm, 01/13/21 10:15:00 EST, Height Start Date: 01/13/21 Stop Date: 01/08/22 Status: Ordered Emgality Prefilled Syringe 100 mg/mL subcutaneous solution = 300 mg, Subcutaneous Injection, Every 28 days, # 3 kit, 5 Refills, Maintenance, 05/05/21 11:56:00EST, Solution, [facility], Partial fill upon [...] 09/01/21 13:55:00 EDT, Route to Pharmacy Electronically, [facility] [...] 02/08/23 16:46:00 EST, 05/05/21 16:45:00 EST, Tablet, [facility], 193, cm, 05/05/21 [...]
--- OUTSIDE RECORDS SUMMARY | 2023-09-21 20:49 | XMS_ITS | Continuity of Care Document ---
Author Organization [facility] Adult Address [address] [place] [address]- Care Team Providers Care Hardwood Floor Finisher Name Role Phone Brandon MIRANDA, [facility] Primary Care Physician [place] [facility] [place]s): 03/09/23 - 04/08/23 [facility] Adult [address] [place] [address]- Allergies, Adverse Reactions, Alerts No Known Allergies Immunizations Given and Recorded Vaccine Date Status Refusal Reason SARS-CoV-2 (COVID-19) mRNA BNT-162b2 vac 08/13/20 Recorded SARS-CoV-2 (COVID-19) mRNA BNT-162s0 vac 07/23/20 Recorded tetanus/diphtheria/pertussis, acel(Tdap) 12/27/18 Given [...] tablet, 3 Refills, Maintenance, 03/16/22 12:18:00 EST, [facility] 616[facility], 193, cm, 03/12/22 10:49:00 EST, Height, 107, [...] 01/07/23 17:06:00 EST, Route to Pharmacy Electronically, [facility] ST[facility] 43787, 175, cm, 06/04/22 8:29:00 EDT, Height, 109, [...] tablet, 0 Refills, Maintenance, 10/11/22 16:11:00 EDT[facility], cm, 06/04/22 8:29:00 EDT, Height, 109, kg, 06/04/22 8:29:00 EDT, Dry Weight Start Date: 10/11/22 Status: Ordered omeprazole 20 mg oral enteric coated capsule See Instructions, TAKE 1 CAPSULE BY MOUTH DAILY BEFORE A MEAL X30 DAYS, # 90 capsule, 1 Refills, Maintenance, 07/16/22 11:48:00 EDT, [facility]/pharmacy #[id number], PATIENT [...] Care Nurse Name: Aubrey Taylor MD Position: [facility] Physician - Primary Care Member Role: PCP Address: Address: [address] [place] [address] 3rd [place] [address]- Name: Maricruz Vinson RN Position: S RN Member Role: Primary Care Nurse Name: Melodie Hampton Position: [facility] Onco RN Member Role: Primary Care Nurse Name: Emeka Patel MD Position: [facility] Renal MD Member Role: Lifetime Consulting Physician Address: Address: [address] [facility] [address] [facility], [place] [address]- Name: Kevin Cool RN Position: [facility] RN Member Role: Primary Care Nurse Care Team Related Persons Name: ELIJAH MARIA Address: home [address] [place] [address] Name: ABDIRAHMAN LEON Name: JONATHAN LEON Address: home [address] [place] [address]
--- OUTSIDE RECORDS SUMMARY | 2023-09-21 20:49 | XMS_ITS | Continuity of Care Document ---
Author Organization [facility] Adult Address [address] [place] [address]- Care Team Providers Care Physician Pediatrician Name Role Phone Brandon MIRANDA, Aubrey Primary Care Physician Encounter [facility] Date(s): 11/24/21 - 12/24/[address] [facility] Adult [address] [place] [address]- Allergies, Adverse Reactions, Alerts No Known Allergies Immunizations Given and Recorded Vaccine Date Status Refusal Reason SARS-CoV-2 (COVID-19) mRNA BNT-162b2 vac 08/13/20 Recorded tetanus/diphtheria/pertussis, acel(Tdap) 12/27/18 Given tetanus-diphtheria toxoids (Td) 12/01/11 Recorded Medications atorvastatin 20 mg oral tablet 1 tablet = 20 mg, By Mouth, Daily, # 90 tablet, 3 Refills, Maintenance, 05/15/21 10:02:00 EDT, Tablet, [facility]/pharmacy #[id number], [...] capsule, 1 Refills, Maintenance, 11/20/21 19:17:00 EDT, [facility]/pharmacy #[id number], 193, cm, 09/25/21 8:45:00 EDT, Height Start Date: 11/20/21 Stop Date: 05/19/22 Status: Ordered Emgality Prefilled Syringe 100 mg/mL subcutaneous solution = 300 mg, Subcutaneous Injection, Every 28 days, # 3 kit, 5 Refills, Maintenance, 05/05/21 11:56:00EST, Solution, [facility], Partial fill upon [...] 10/26/21 8:03:00 EDT, Route to Pharmacy Electronically, [facility] STORE 85788, 193, cm, 09/25/21 8:45:00 EDT, Height Start Date: 10/26/21 Stop Date: 11/25/21 Status: Ordered losartan 50 mg oral tablet 75 mg, 1.5, tablet, By Mouth, Daily, # 135 tablet, Refills 3, Tot. Refills 3, Maintenance, 12/30/2212:55:00 EDT, [facility] to Pharm[facility] Electronically, [facility] [...] 09/01/21 13:55:00 EDT, [id number] Partial fillupon patient request if the prescription is for a s... Start Date: 09/01/21 Stop Date: 12/30/21 Status: Ordered metFORMIN 1000 mg oral tablet 1 tablet = 1,000 mg, By Mouth, 2 times a day, # 60 tablet, 5 Refills, Maintenance, 01/13/21 10:41:00 EST, Tablet, [facility]/pharmacy #[id number], [...] mL, 0 Refills, Maintenance, 03/19/21 12:55:00 EST, [facility]/pharmacy #[id number], [...] 02/08/23 16:46:00 EST, 05/05/21 16:45:00 EST, Tablet, [facility], 193, robert, 05/05/21 11:20:... [...] Patient Care team information Personnel Name: Brandon MIRANDA Located Within [facility] Address: Address: [address] [place] [address] [address]rd Floor [place], [place] [address]
[2023-09-21 21:27] LABS: MANUAL DIFF FLAG NO
[2023-09-21 21:28] LABS: Basophils Percent Auto 0.2 % (0-2); Eosinophils Absolute Auto 0.1 X10*3/uL (0.0-0.4); Eosinophils Percent Auto 0.9 % (0-4); Hemoglobin 10.8 g/dl (14.0-18.0); Imm Gran Abs Auto 0.01 X10*3/uL (0.00-0.03); Imm Gran Pct Auto 0.2 % (0.0-0.4); Lymphocytes Absolute Auto 3.3 X10*3/uL (1.2-4.9); Lymphocytes Percent Auto 57.9 % (20-40); Mean Corpuscular HGB Conc 31.8 g/dl (31.0-36.0); Mean Corpuscular Hemoglobin 28.6 pg (27.0-33.0); Mean Corpuscular Volume 89.9 fL (80.0-98.0); Mean Platelet Volume 9.4 fL (9.4-12.4); Monocytes Absolute Auto 0.4 X10*3/uL (0.1-1.2); Monocytes Percent Auto 7.2 % (2-11); Neutrophils Absolute Auto 1.9 x10*3/uL (2.0-8.3); Neutrophils Percent Auto 33.6 % (45-73); Platelet Count 229 X10*3/uL (160-400); Red Blood Count 3.78 X10*6/uL (4.60-5.80); Red Cell Distribution Width 13.5 % (11.0-16.0); White Blood Count 5.7 X10*3/uL (4.8-10.8)
[2023-09-21 21:56] LABS: B Type Natriuretic Peptide < 10 pg/mL (<100)
[2023-09-21 22:12] VITALS: BP 149/95; PULSE 77; RESP 18; TEMP 36.8; O2SAT 99
[2023-09-22 00:34] VITALS: BP 149/95; PULSE 77; RESP 18; TEMP 36.8; O2SAT 99
== END 2023-09-22 00:35 | disposition home or self-care (01) ==
PROVIDERS: Registered Nurse Emergency; Emergency Provider Internal Medicine; PCP Internal Medicine
DX: R60.0 Localized edema (principal); C34.90 Malignant neoplasm of unspecified part of unspecified bronchus or lung; E11.9 Type 2 diabetes mellitus without complications; I10 Essential (primary) hypertension; E78.00 Pure hypercholesterolemia, unspecified; J44.9 Chronic obstructive pulmonary disease, unspecified; Z79.899 Other long term (current) drug therapy; Z79.02 Long term (current) use of antithrombotics/antiplatelets; Z79.84 Long term (current) use of oral hypoglycemic drugs
CPT/HCPCS: 36415; 71046; 71250; 74176; 80053; 83880; 85025; 93970; 99284

== ENCOUNTER 2023-10-19 08:49 | Outpatient (REF) | payer OTHER, SELFPAY ==
[2023-10-19 11:32] LABS: Estimated Average Glucose 120 mg/dL; Hemoglobin A1c % 5.8 % (<6.0)
[2023-10-19 11:48] LABS: Creatinine Urine 204.11 mg/dL; Microalbum/Creatinine Ratio Ur 6.3 ug/mg cr (<30)
[2023-10-19 12:38] LABS: Alanine Aminotransferase 37 U/L (0-40); Albumin Level 4.5 g/dL (3.5-5.0); Alkaline Phosphatase 69 U/L (39-117); Anion Gap 14 (12-20); Aspartate Amino Transferase 27 U/L (5-37); Bilirubin Total 0.4 mg/dL (0.0-1.0); Blood Urea Nitrogen 19 mg/dL (9-16); Calcium 10.4 mg/dL (8.4-10.2); Carbon Dioxide 32 mmol/L (22-29); Chloride 99 mmol/L (96-108); Estimated Glomerular Filt Rate 60; Glucose Random 115 mg/dL (60-115); Phosphorus 3.5 mg/dL (2.7-4.5); Potassium 3.7 mmol/L (3.3-5.1); Sodium 141 mmol/L (135-145); Total Protein 8.3 g/dL (6.5-8.0)
[2023-10-19 12:40] LABS: Prostate Specific Antigen Scr 0.79 ng/mL (<0.05-4.0)
[2023-10-19 12:54] LABS: Vitamin D 25-OH Total 60.2 ng/mL (>30)
[2023-10-19 13:04] LABS: Parathyroid Hormone Intact 61.3 pg/mL (8.7-77.1)
== END 2023-10-19 08:50 | disposition home or self-care (01) ==
LOC: HO.LAB 08:49
PROVIDERS: PCP Internal Medicine; Visit Provider Internal Medicine
DX: E11.9 Type 2 diabetes mellitus without complications (principal); E78.00 Pure hypercholesterolemia, unspecified; E83.52 Hypercalcemia; I10 Essential (primary) hypertension; N40.0 Benign prostatic hyperplasia without lower urinary tract symptoms
CPT/HCPCS: 36415; 80053; 82043; 82306; 82570; 83036; 83970; 84100; 84153

== ENCOUNTER 2024-01-15 11:42 | Emergency (ER) | payer OTHER, SELFPAY ==
--- NOTE | ~2024-01-15 | XR_ITS ---
EXAMINATION: XR CHEST CLINICAL INFORMATION: Sternal chest pain. COMPARISON: Prior chest radiographs dated 09/11/2023; CT chest dated 09/21/2023. TECHNIQUE: Frontal and lateral views of the chest were obtained. FINDINGS: The heart, great vessels, pulmonary vasculature and mediastinum are stable. A 3.3 x 3.8 cm left lower lobe nodule is redemonstrated. There is bibasilar plate-like atelectasis, moderately severe on the right and mild on the left. No gross infiltrate, effusion or pneumothorax is seen. There is no acute osseous abnormality. XR/XR chest 2V IMPRESSION: 1. A 3.8 cm left base nodule is seen. 2. There is bibasilar plate-like atelectasis, right greater than left. Electronically signed by: Mauricio Sabillon MD 01/15/2024 02:29 PM [facility]
--- NOTE | ~2024-01-15 | CT_ITS ---
EXAMINATION: CT ANGIOGRAM CHEST WITHOUT AND WITH CONTRAST (CT PULMONARY ANGIOGRAM FOR PE) CLINICAL INFORMATION: chest pain, lung cancer, r/o PE COMPARISON: Chest CT September 21, 2023 TECHNIQUE: Prior to contrast administration, noncontrast localization images were obtained. Subsequently, multidetector volumetric imaging was performed from the thoracic inlet to below the diaphragms following the administration of 70 mL Omnipaque 350 intravenous contrast. No contrast reaction reported. Sagittal, coronal, and MIP oblique sagittal reformatted images were obtained on the CT workstation, uploaded to PACS, and reviewed. This CT examination was performed using dose optimization techniques as appropriate, variously including the following: *Automated exposure control *Adjustment of mA and/or kV according to patient size (this includes techniques or standardized protocols for targeted exams where dose is matched to indication/reason for exam; i.e. extremities or head) *Use of iterative reconstruction technique Total exam dose-length product 516 mGy-cm. FINDINGS: QUALITY OF STUDY/CONTRAST BOLUS: Satisfactory PULMONARY ARTERIES: No pulmonary emboli. THORACIC AORTA: No aneurysm. LUNG: Right lower lobe airspace disease and consolidation. Spiculated nodule in the left lower lobe measures 3.0 x 3.7 x 3.2 cm on image 317 of series 7. Central airways are patent. PLEURA: No pleural effusion. MEDIASTINUM: Imaged thyroid gland is unremarkable. Normal heart size. No pericardial effusion. Prevascular lymph nodes measure 2.2 x 1.3 cm and 2.7 x 1.5 cm. Subcarinal lymph node measures 2.3 x 2.6 cm. Right hilar lymph node measures 2.1 x 1.6 cm. No evidence of septal bowing or right heart strain. Nonspecific esophageal wall thickening. CORONARY ARTERY CALCIFICATION: Mild. CHEST WALL/AXILLA: Right axillary lymph node measures 2.1 x 1.2 cm. OSSEOUS STRUCTURES: No destructive bone lesions. UPPER ABDOMEN: Hepatic steatosis. Indeterminate hepatic hypodensity measuring 2.2 x 3.1 cm. Indeterminate hepatic hypodensity measuring 1.9 x 2.5 cm. Thickening of bilateral adrenal glands. 3.0 cm left adrenal nodule. No reflux of contrast into the hepatic veins to suggest elevated right heart pressures. CT/CT angio chest PE protocol IMPRESSION: Enlarging irregular spiculated mass in the left lower lobe measuring 3.0 x 3.7 x 3.2 cm most likely representing neoplasm. Advise PET CT versus biopsy correlation. Consultation with thoracic surgery is advised. Increasing intrathoracic lymphadenopathy. Thickening of bilateral adrenal glands. 3.0 cm left adrenal nodule for which metastasis cannot be excluded. Hepatic steatosis. Indeterminate hepatic hypodensities for which MRI abdomen is recommended. Fleischner guidelines were followed. VTE: negative Electronically signed by: Israel Casarez MD 01/15/2024 04:08 PM [facility]
[2024-01-15 11:47] VITALS: BP 138/72; PULSE 87; O2SAT 96
--- NOTE | 2024-01-15 11:48 | ED.CHESTPAIN ---
HPI - Chest Pain General Chief Complaint: Chest Pain Stated Complaint: CP, RESOLVED PER EMS Time Seen by Provider: 01/15/24 11:44 Source: patient, EMS, RN notes reviewed and old records reviewed Mode of arrival: EMS Limitations: no limitations History of Present Illness ED Provider: ALONDRA AGUILAR PA-C HPI narrative: 58-year-old male with pmhx significant for T2DM, HTN, HDL, GERD (on omeprazole), stage IV lung cancer on chemo, dependent on 2 L oxygen at baseline presents to the ED today via EMS from home for evaluation of acute onset chest pain that has since resolved. Patient reports eating noodles and hot soup this morning when he suddenly began to have nonradiating substernal chest pain. This lasted for approximately 5 minutes. Reports taking for aspirin which was followed by complete resolution of pain. On EMS arrival, patient's pain had completely resolved. Reports starting chemotherapy 1 week ago. He has since followed up with [facility] days ago for repeat blood work and EKG which were both normal. Admits to history of GERD however states that this feels different. Takes omeprazole as prescribed daily. Has not had an episode of acid reflux in years. Denies fever, chills, headache, dizziness, sore throat, new SOB, calf pain/ swelling, LE swelling. Related Data Home Medications ?Medication ?Instructions ?Recorded ?Confirmed atorvastatin 40 mg tablet 40 mg PO DAILY 01/26/23 diltiazem HCl 360 mg 360 mg PO DAILY 01/26/23 capsule,extended release 24 hr losartan 100 mg tablet 100 mg PO DAILY 01/26/23 losartan 100 1 tab PO DAILY 01/26/23 mg-hydrochlorothiazide 25 mg tablet metformin 1,000 mg tablet 1,000 mg PO BID 01/26/23 omeprazole 20 mg capsule,delayed 20 mg PO DAILY 01/26/23 release trametinib 2 mg tablet (Mekinist) 2 mg PO DAILY 01/26/23 Previous Rx's ?Medication ?Instructions ?Recorded amoxicillin 500 mg capsule 500 mg PO Q8H #30 caps 01/26/23 fluticasone furoate 27.5 2 spray intranasal DAILY #6.6 mL 06/01/23 mcg/actuation nasal spray,suspension (Flonase Sensimist) Allergies Allergy/AdvReac Type Severity Reaction Status Date / Time No Known Allergies Allergy Verified 11/17/24 11:51 Review of Systems Review of Systems: Constitutional: No fever, chills, fatigue, night sweats, weight changes ENT/Mouth: No ear pain, hearing loss, nasal congestion, sinus pain, rhinorrhea, sore throat Eyes: No eye pain, swelling, redness, vision changes, discharge Cardio: No palpitations, SANDY, orthopnea, peripheral edema, chest pain Pulm: No SOB, cough, sputum, wheezing, dyspnea, hemoptysis GI: No nausea, vomiting, hematemesis, abdominal pain, diarrhea, constipation, hematochezia, melena : No irregular bleeding, dysuria, frequency, urgency, hesitancy, hematuria, flank pain, urinary flow changes, urinary incontinence or retention MSK: No back pain, neck pain, joint pain, myalgias Skin: No lesions, rashes Neuro: No weakness, numbness, paresthesias, LOC, dizziness, headache Psych: No anxiety/panic, depression, SI/HI, AH/VH All other systems reviewed and are negative. [facility] Past Medical History Attestation statement: The following information was validated with the patient. Source: old records reviewed and nursing notes reviewed Medical History GERD (gastroesophageal reflux disease) Cluster headaches Type 2 diabetes mellitus Hypercholesterolemia Hypertension Palpitations Stage 4 lung cancer Social History Social History Patient Tobacco Use Status: Never used Tobacco Smoked in Last 30 Days: No Use of substances other than those prescribed or required for medical reasons: No Advance Directives: No Advance Directives Information Provided: Yes Do you have a plan to hurt others: No Plan Physical Exam Vital Signs: Vital Signs: Last Vital Signs Temp 98.4 F 01/15/24 16:58 Pulse 77 01/15/24 16:58 Resp 14 01/15/24 16:58 BP 127/75 01/15/24 16:58 Pulse Ox 99 01/15/24 16:58 O2 Del Method Room Air 01/15/24 16:58 Oxygen Flow Rate 2 01/15/24 11:49 BMI result Body Mass Index 35.4 Vital signs stable. Afebrile. Satting 97% on room air. Not tachycardic. General: Well appearing, in no acute distress. Skin: Warm, dry, intact. No rashes or lesions. Head: Normocephalic, atraumatic. EENT: Hearing is intact b/l. Conjunctiva clear. PERRLA. EOM intact. Moist mucous membranes.? Neck: Supple without LAD Cardiac: Chest wall symmetric. RRR. No JVD. Lungs: on 2L nasal cannula. Normal respiratory effort without accessory muscle use. Breath sounds slightly diminished to left lung base. Otherwise clear to auscultation. No rales, rhonchi or wheezing. Abdomen: Soft, non-tender, non-distended. No rebound tenderness or guarding. Positive BS x4. Ext: Upper and lower extremities atraumatic, without tenderness, deformity, swelling or erythema. Full ROM throughout. No calf tenderness. Neuro: AOx3. Normal speech. Ambulating with steady gait. Psych: Appropriate mood and affect. Responds appropriately to questions. Course Course Course Narrative: 1509 -- CBC without leukocytosis or left shift. Normocytic anemia, stable when compared to priors. chemistry without acute electrolyte abnormality requiring intervention. No ANIRUDH. Random glucose 162. Normal liver function. Troponin 2.9. Will repeat for delta. > CTA chest pending. 1630 -- delta trop negative. CTA chest with findings consistent wtih current metastatic lung cancer. no VTE. discussed all work up results with patient. he has continued to be asymptomatic throughout ED stay today. Patient has remained stable throughout ED visit today. Discussed worrisome signs and symptoms and when to return to the ED. All questions answered at this time. Patient is agreeable with disposition and stable for discharge. Medications Administered Discontinued Medications Generic Name Dose Route Start Last Admin Trade Name Sacha PRN Reason Stop Dose Admin Iohexol 100 ml 01/15/24 15:12 01/15/24 15:12 Iohexol 350 Mg/Ml 100 Ml Infus..Btl IV 01/15/24 15:13 70 ml ONCE ONE Administration Medical Decision Making Medical Decision Making MDM Narrative: 58-year-old male with pmhx significant for T2DM, HTN, HDL, GERD (on omeprazole), stage IV lung cancer on chemo dependent on 2 L oxygen at baseline presents to the ED today via EMS from home for evaluation of acute onset chest pain that has since resolved. Vital signs stable. He is nontoxic appearing and in NAD. skin w/d/i. on 2L nasal cannula. Normal respiratory effort without accessory muscle use. Breath sounds slightly diminished to left lung base. Otherwise clear to auscultation. No rales, rhonchi or wheezing. no calf tenderness b/l. Differential diagnosis includes GERD, ACS, arrhythmia, costochondritis, pleuritis, MSK sprain/strain, ongoing lung cancer, pulmonary embolism, pleural effusion, pneumonia, CHF Plan for labs, troponin, EKG, chest x-ray, CT angio chest, re-evaluation Differential Diagnosis Differential Diagnoses: The differential diagnosis associated with the presentation includes as above. Admission/Observation Consideration of admission/observation: Escalation of care including admission/observation considered Admission considered on presentation Lab Data MDM Lab Attestation statement: I reviewed the patient's lab results. as above. 01/15/24 12:11 01/15/24 12:11 Labs: Lab Results 01/15/24 01/15/24 Range/Units 12:11 15:45 WBC 4.7 L (4.8-10.8) X10*3/uL RBC 3.93 L (4.60-5.80) X10*6/uL Hgb 10.9 L (14.0-18.0) g/dl Hct 34.6 L (42.0-52.0) % MCV 88.0 (80.0-98.0) fL MCH 27.7 (27.0-33.0) pg MCHC 31.5 (31.0-36.0) g/dl RDW 13.8 (11.0-16.0) % Plt Count 277 (160-400) X10*3/uL MPV 9.2 L (9.4-12.4) fL Immature Gran % (Auto) 0.2 (0.0-0.4) % Neut % (Auto) 64.0 (45-73) % Lymph % (Auto) 29.2 (20-40) % [place] % (Auto) 4.9 (2-11) % Eos % (Auto) 1.7 (0-4) % Baso % (Auto) 0.0 (0-2) % Lymph # (Auto) 1.4 (1.2-4.9) X10*3/uL [place] # (Auto) 0.2 (0.1-1.2) X10*3/uL Eos # (Auto) 0.1 (0.0-0.4) X10*3/uL Baso # (Auto) 0.0 (0.0-0.2) X10*3/uL Abs Immat Gran (auto) 0.01 (0.00-0.03) X10*3/uL Absolute Neuts (auto) 3.0 (2.0-8.3) x10*3/uL Absolute Nucleated RBC 0.000 (0.0-0.012) X10*3/uL Nucleated RBC % (auto) 0.0 (0.0-0.2) /100WBC Sodium 139 (135-145) mmol/L Potassium 3.3 (3.3-5.1) mmol/L Chloride 99 (96-108) mmol/L Carbon Dioxide 28 (22-29) mmol/L Anion Gap 15 (12-20) BUN 27 H (9-16) mg/dL Creatinine 1.15 (0.5-1.4) mg/dL Estim Creat Clear Calc 103.8 Estimated GFR > 60 Random Glucose 162 H (60-115) mg/dL Calcium 9.2 D (8.4-10.2) mg/dL Magnesium 1.8 (1.6-2.6) mg/dL Total Bilirubin 0.3 (0.0-1.0) mg/dL AST 35 (5-37) U/L ALT 55 H (0-40) U/L Alkaline Phosphatase 78 (39-117) U/L Troponin I High Sens 2.9 2.8 (<3.5-35.0) ng/L B-Natriuretic Peptide < 10 (<100) pg/mL Total Protein 7.8 (6.5-8.0) g/dL Albumin 4.1 (3.5-5.0) g/dL Lipase 32 (8-78) U/L Independent Interpretation I performed an independent interpretation of an: EKG, Plain X-Ray and CT Scan Interpretation: EKG showing normal sinus rhythm with a rate of 87 beats per minute, QT 388, QTC 466, no acute ischemic changes or ST elevations. Chest x-ray showing nodule to left base, no focal consolidation or infiltrate. No effusion. CTA chest without clot Radiology Impression Discussion of test interpretation with radiology: I have reviewed the radiologist's reading. Radiologist Impression: EXAMINATION: XR CHEST CLINICAL INFORMATION: Sternal chest pain. COMPARISON: Prior chest radiographs dated 09/11/2023; CT chest dated 09/21/2023. TECHNIQUE: Frontal and lateral views of the chest were obtained. FINDINGS: The heart, great vessels, pulmonary vasculature and mediastinum are stable. A 3.3 x 3.8 cm left lower lobe nodule is redemonstrated. There is bibasilar plate-like atelectasis, moderately severe on the right and mild on the left. No gross infiltrate, effusion or pneumothorax is seen. There is no acute osseous abnormality. XR/XR chest 2V IMPRESSION: 1. A 3.8 cm left base nodule is seen. 2. There is bibasilar plate-like atelectasis, right greater than left. Electronically signed by: Mauricio Sabillon MD 01/15/2024 02:29 PM [facility] EXAMINATION: CT ANGIOGRAM CHEST WITHOUT AND WITH CONTRAST (CT PULMONARY ANGIOGRAM FOR PE) CLINICAL INFORMATION: chest pain, lung cancer, r/o PE COMPARISON: Chest CT September 21, 2023 TECHNIQUE: Prior to contrast administration, noncontrast localization images were obtained. Subsequently, multidetector volumetric imaging was performed from the thoracic inlet to below the diaphragms following the administration of 70 mL Omnipaque 350 intravenous contrast. No contrast reaction reported. Sagittal, coronal, and MIP oblique sagittal reformatted images were obtained on the CT workstation, uploaded to PACS, and reviewed. This CT examination was performed using dose optimization techniques as appropriate, variously including the following: *Automated exposure control *Adjustment of mA and/or kV according to patient size (this includes techniques or standardized protocols for targeted exams where dose is matched to indication/reason for exam; i.e. extremities or head) *Use of iterative reconstruction technique Total exam dose-length product 516 mGy-cm. FINDINGS: QUALITY OF STUDY/CONTRAST BOLUS: Satisfactory PULMONARY ARTERIES: No pulmonary emboli. THORACIC AORTA: No aneurysm. LUNG: Right lower lobe airspace disease and consolidation. Spiculated nodule in the left lower lobe measures 3.0 x 3.7 x 3.2 cm on image 317 of series 7. Central airways are patent. PLEURA: No pleural effusion. MEDIASTINUM: Imaged thyroid gland is unremarkable. Normal heart size. No pericardial effusion. Prevascular lymph nodes measure 2.2 x 1.3 cm and 2.7 x 1.5 cm. Subcarinal lymph node measures 2.3 x 2.6 cm. Right hilar lymph node measures 2.1 x 1.6 cm. No evidence of septal bowing or right heart strain. Nonspecific esophageal wall thickening. CORONARY ARTERY CALCIFICATION: Mild. CHEST WALL/AXILLA: Right axillary lymph node measures 2.1 x 1.2 cm. OSSEOUS STRUCTURES: No destructive bone lesions. UPPER ABDOMEN: Hepatic steatosis. Indeterminate hepatic hypodensity measuring 2.2 x 3.1 cm. Indeterminate hepatic hypodensity measuring 1.9 x 2.5 cm. Thickening of bilateral adrenal glands. 3.0 cm left adrenal nodule. No reflux of contrast into the hepatic veins to suggest elevated right heart pressures. CT/CT angio chest PE protocol IMPRESSION: Enlarging irregular spiculated mass in the left lower lobe measuring 3.0 x 3.7 x 3.2 cm most likely representing neoplasm. Advise PET CT versus biopsy correlation. Consultation with thoracic surgery is advised. Increasing intrathoracic lymphadenopathy. Thickening of bilateral adrenal glands. 3.0 cm left adrenal nodule for which metastasis cannot be excluded. Hepatic steatosis. Indeterminate hepatic hypodensities for which MRI abdomen is recommended. Fleischner guidelines were followed. VTE: negative Electronically signed by: Israel Casarez MD 01/15/2024 04:08 PM [facility] Independent Historian Clinical information obtained from an independent historian. History obtained from or confirmed by: EMS External Record Review External record reviewed: Inpatient record, Office record, Outpatient record, Prior outpatient labs, Prior outpatient radiology, Primary care record and Outside ED record Chronic Conditions Patient?s care impacted by: Diabetes, Hypertension and Other (lung cancer, GERD) Social Determinants Patient?s care significantly limited by Social Determinants of Health including: Other Social Determinant of Health Critical Care Time Critical Care Time Critical Care Time: No Discharge Plan Discharge Clinical Impression: Atypical chest pain Patient Disposition: Home, Self-Care Instructions: Chest Pain (ED) Additional Instructions: Your blood work today is reassuring. Your EKG is normal. Your heart enzyme is normal. The CT scan of your chest shows enlarging irregular spiculated mass to your lower left lung, consistent with your current lung cancer. There is also an incidental finding of thickening of both of your adrenal glands. Metastasis (spread of cancer) can not be ruled out. The scan did not demonstrate evidence of clot. Please follow up with your oncologist regarding these findings as further imaging may be necessary. Return to the ED with new or worsening symptoms. In the case of an emergency call 911. Prescriptions: No Action Flonase Sensimist 27.5 mcg/actuation spray,suspension 2 spray intranasal DAILY Qty: 6.6 0RF Rx Instructions: into each nostril losartan-hydrochlorothiazide 100-25 mg tablet 1 tab PO DAILY diltiazem HCl 360 mg capsule,extended release 24hr 360 mg PO DAILY atorvastatin 40 mg tablet 40 mg PO DAILY losartan 100 mg tablet 100 mg PO DAILY metformin 1,000 mg tablet 1,000 mg PO BID Mekinist 2 mg tablet 2 mg PO DAILY omeprazole 20 mg capsule,delayed release(DR/EC) 20 mg PO DAILY amoxicillin 500 mg capsule 500 mg PO Q8H Qty: 30 0RF Referrals: Grecia Bonilla MD [Primary Care Provider] - Interventions: ED Discharge Assessment Last Done: 01/15/24 16:58 Discharge Date/Time: 01/15/24 16:59 Print Language: Syrian
[2024-01-15 11:49] VITALS: BP 110/67; PULSE 85; RESP 18; TEMP 36.4; O2SAT 95; BMI 35.4
--- NOTE | 2024-01-15 11:53 | ECG_ITS ---
Test Reason : CP Blood Pressure : / mmHG Vent. Rate : 087 BPM Atrial Rate : 087 BPM P-R Int : 176 ms QRS Dur : 102 ms QT Int : 388 ms P-R-T Axes : 066 032 061 degrees QTc Int : 466 ms Normal sinus rhythm Normal ECG When compared with ECG of 01-JUN-2023 09:29, No significant change was found Referred By: Halina Cheung Electronically Signed By:TAVO LOJA MD
[2024-01-15 12:15] LABS: MANUAL DIFF FLAG NO
[2024-01-15 12:16] LABS: Eosinophils Absolute Auto 0.1 X10*3/uL (0.0-0.4); Eosinophils Percent Auto 1.7 % (0-4); Hematocrit 34.6 % (42.0-52.0); Hemoglobin 10.9 g/dl (14.0-18.0); Imm Gran Abs Auto 0.01 X10*3/uL (0.00-0.03); Imm Gran Pct Auto 0.2 % (0.0-0.4); Lymphocytes Absolute Auto 1.4 X10*3/uL (1.2-4.9); Lymphocytes Percent Auto 29.2 % (20-40); Mean Corpuscular HGB Conc 31.5 g/dl (31.0-36.0); Mean Corpuscular Hemoglobin 27.7 pg (27.0-33.0); Mean Platelet Volume 9.2 fL (9.4-12.4); Monocytes Absolute Auto 0.2 X10*3/uL (0.1-1.2); Monocytes Percent Auto 4.9 % (2-11); Platelet Count 277 X10*3/uL (160-400); Red Blood Count 3.93 X10*6/uL (4.60-5.80); Red Cell Distribution Width 13.8 % (11.0-16.0); White Blood Count 4.7 X10*3/uL (4.8-10.8)
[2024-01-15 12:29] LABS: Alanine Aminotransferase 55 U/L (0-40); Albumin Level 4.1 g/dL (3.5-5.0); Alkaline Phosphatase 78 U/L (39-117); Anion Gap 15 (12-20); Aspartate Amino Transferase 35 U/L (5-37); Bilirubin Total 0.3 mg/dL (0.0-1.0); Blood Urea Nitrogen 27 mg/dL (9-16); Calcium 9.2 mg/dL (8.4-10.2); Carbon Dioxide 28 mmol/L (22-29); Chloride 99 mmol/L (96-108); Creatinine Clr Calc Pharmacy 103.8; Estimated Glomerular Filt Rate > 60; Glucose Random 162 mg/dL (60-115); Lipase 32 U/L (8-78); Magnesium 1.8 mg/dL (1.6-2.6); Potassium 3.3 mmol/L (3.3-5.1); Sodium 139 mmol/L (135-145); Total Protein 7.8 g/dL (6.5-8.0)
[2024-01-15 12:36] LABS: Troponin-I High Sensitivity 2.9 ng/L (<3.5-35.0)
[2024-01-15 13:03] VITALS: BP 108/68; PULSE 83; RESP 18; O2SAT 97
--- NOTE | 2024-01-15 13:05 | PC.NURSE ---
pt is alert and oriented, skin appropriate for ethnicity, respirations even and unlabored, ls clear, pt reports prior to arrival to the ed experienced midsternal chest pain which has resolved, pt also reports having lung caner stage 4 which he was diagnosed with it 3 years ago, started new chemo treatment at [facility] this week, ns on the monitor and vs stable
[2024-01-15] MEDS: iohexoL 350 MG/ML 100 ML INFUS..BTL IV (15:12)
[2024-01-15 15:52] LABS: B Type Natriuretic Peptide < 10 pg/mL (<100)
[2024-01-15 16:09] VITALS: BP 127/75; PULSE 77; RESP 14; TEMP 36.9; O2SAT 99
[2024-01-15 16:10] LABS: Troponin-I High Sensitivity 2.8 ng/L (<3.5-35.0)
[2024-01-15 16:58] VITALS: BP 127/75; PULSE 77; RESP 14; TEMP 36.9; O2SAT 99
== END 2024-01-15 16:59 | disposition home or self-care (01) ==
PROVIDERS: Physician Assistant Medical; Emergency Provider Emergency Medicine; PCP Internal Medicine
DX: R07.89 Other chest pain (principal); E11.9 Type 2 diabetes mellitus without complications; I10 Essential (primary) hypertension; Z79.899 Other long term (current) drug therapy; Z79.84 Long term (current) use of oral hypoglycemic drugs; Z99.81 Dependence on supplemental oxygen
CPT/HCPCS: 36415; 71046; 71275; 80053; 83690; 83735; 83880; 84484; 85025; 93005; 99285; Q9967

== ENCOUNTER → 2024-01-15 11:53 | Outpatient (BNV) | payer OTHER, SELFPAY | PROVIDERS: Emergency Provider Emergency Medicine; PCP Internal Medicine; Visit Provider Internal Medicine Cardiovascular Disease | DX: R07.9 Chest pain, unspecified (principal) | CPT/HCPCS: 93010 ==

== ENCOUNTER 2024-02-08 11:39 | Outpatient (REF) | payer OTHER, SELFPAY ==
[2024-02-08 12:16] LABS: Estimated Average Glucose 134 mg/dL; Hemoglobin A1C 117.6024 umol/L; Hemoglobin A1c % 6.3 % (<6.0)
[2024-02-08 12:30] LABS: Alanine Aminotransferase 122 U/L (0-40); Albumin Level 4.1 g/dL (3.5-5.0); Alkaline Phosphatase 74 U/L (39-117); Anion Gap 17 (12-20); Aspartate Amino Transferase 58 U/L (5-37); Bilirubin Total 0.3 mg/dL (0.0-1.0); Blood Urea Nitrogen 27 mg/dL (9-16); Carbon Dioxide 27 mmol/L (22-29); Chloride 101 mmol/L (96-108); Cholesterol 168 mg/dL (<200); Estimated Glomerular Filt Rate > 60; Glucose Random 105 mg/dL (60-115); HDL Cholesterol 31 mg/dL (>40); LDL Cholesterol Calculated 70 mg/dL (<100); Potassium 3.8 mmol/L (3.3-5.1); Sodium 141 mmol/L (135-145); Total Protein 7.8 g/dL (6.5-8.0); Triglycerides 336 mg/dL (<150)
[2024-02-08 12:34] LABS: Parathyroid Hormone Intact 144.3 pg/mL (8.7-77.1)
== END 2024-02-08 11:40 | disposition home or self-care (01) ==
LOC: HO.LAB 11:39
PROVIDERS: PCP Internal Medicine; Visit Provider Internal Medicine
DX: Z00.00 Encounter for general adult medical examination without abnormal findings (principal); E11.9 Type 2 diabetes mellitus without complications; E78.00 Pure hypercholesterolemia, unspecified; I10 Essential (primary) hypertension
CPT/HCPCS: 36415; 80053; 80061; 83036; 83970

== ENCOUNTER 2024-05-09 09:50 | Outpatient (REF) | payer MEDICAID, SELFPAY ==
--- OUTSIDE RECORDS SUMMARY | 2024-05-09 10:57 | XMS_ITS | Clinical Summary ---
Author Organization [facility] Address [address] [place] [address] Care Team Providers Care Batch Freezer Name Role Phone Unavailable Primary Care Provider Unavailabl e Social History Tobacco Use Types Packs/Day Years Used Date Smoking Tobacco: Never Assessed Sex and Gender Information Value Date Recorded Sex Assigned at Not on file Gender Identity Not on file Sexual Orientation Not on file Plan of Treatment Health Maintenance Due Date Last Done Comments Hepatitis C Virus Screening 1965 HIV Screening 1978 DTaP/Tdap/Td Vaccines (1 - Tdap) 02/14/1984 Hepatitis B Vaccines (1 of 3 - 19+ 3-dose series) 02/14/1984 Pneumococcal Vaccines 50+ (1 of 1 - PCV) 2015 Zoster (Shingles) Vaccine (1 of 2) 2015 COVID-19 Vaccine (2023-2 5 season) 2023 Pneumococcal Vaccine: Pediat sly (0-5 Years) and At-Risk Patients (6 to 49 Years) Aged Out No longer eligible b ased on patient's age to complete this topic
--- OUTSIDE RECORDS SUMMARY | 2024-05-09 10:58 | XMS_ITS | Data Portability ---
Author Organization [facility], , [facility] Address [address] [place] [address] Care Team Providers Care Pairer Substandard Name Role Phone ROB BERRY Primary Care Provider Assessment Encounter Date Assessment Date Assessment LastModified by Organization Details LastModified Time 08/30/2016 08/30/2016 After a discussion of treatment options, which included consideration of best practices and patient preferences, the following treatment plan and objectives were adopted: pkeough Not available 08/30/2016 14:13:56 Plan of Treatment Reminders Order Date Submit Date Provider Last Modified By Organization Details Last Modified Time Details Appointments None recorded. Lab triglycer ides, serum 2016 017 [facility], [address] [place] [address], [address], 7 10:15:36 urinalysi s, dipstick, auto 2016 017 [facility], [address] [place] [address], [address], 7 12:23:18 cytology, non-gynec ological, unspecifi ed specimen 2016 017 [facility], [address] [place] [address], [address], 7 11:23:15 PSA, serum or plasma 2016 017 [facility], [address] [place] [address], [address], 7 11:07:04 Referral None recorded. Procedures None recorded. Surgeries None recorded. Imaging None recorded. Medication Orders ammonium lactate 12 % topical cream 2016 017 INTERFACE [id number], [address] [place], [address], 7 14:15:40 omeprazol e 20 mg capsule,d elayed release 2016 017 INTERFACE [id number], [address] [place], [address], 7 14:15:42 sumatript an 100 mg tablet 2016 017 INTERFACE [id number], [address] [place], [address], 7 14:15:41 diltiazem CD 180 mg capsule,e xtended release 24 hr 2016 017 INTERFACE [id number], [address] [place], [address], 7 14:15:40 Patient TargetsNo targets recorded. Patient Instructions Encounter Date Encounter Id Patient Instructions Last Modified By Organization Details Last Modified Time 08/04/2016 [id number] Pt refused RTC o n Tuesday. Will call pt to decrease PF in next a couple of day if better. Not available 08/04/2016 16:57:50 08/10/2016 [id number] Eye looks great Taper drops as directed Return with any new symptoms or recurrence Continue with routine eye exams breanne Not available 08/10/2016 14:37:02 08/30/2016 [id number] deciding about using medicines to quit smoking Not available 08/30/2016 14:59:27 Quitting Tobacco : Care Instructions Not available 08/30/2016 14:59:27 high blood pressure: care instructions Not available 08/30/2016 14:59:27 learning about high blood pressure Not available 08/30/2016 14:59:27 Well Visit 50 to 65: Care Instructions Not available 08/30/2016 14:59:27 Counseling done {{Patient not ready to quit Contemplatin g quitting Tapering Cigarettes signed up for support prescript ion for stop smoking medication given}} {{Patient not ready to quit Contemplatin g quitting Tapering Cigarettes signed up for support prescript ion for stop smoking medication given}} Goal for follow up visit {{adding exercise regular meals stress management improv ing sleep therapist identifying sponsor}} {{adding exercise regular meals stress management improv ing sleep therapist identifying sponsor}} {{adding exercise regular meals stress management improv ing sleep therapist identifying sponsor}}My Health To Do List {{go to [facility] or call si gn up for esther text 2 quit or other stop smoking esther contact [employer]}} {{go to [facility] or call si gn up for esther text 2 quit or other stop smoking esther contact [employer]}} {{go to [facility] or call si gn up for esther text 2 quit or other stop smoking esther contact [employer]}} Not available 08/30/2016 13:43:39 04/25/2017 [id number] high blood pressure: care instructions tfurcolo Not available 04/25/2017 16:40:30 learning about high blood pressure tfurcolo Not available 04/25/2017 16:40:30 has moved to [place]- harder to get here. given name of Dr. Cindi Mata @ [facility] tfurcolo Not available 04/25/2017 16:42:48 05/26/2017 [id number] Glasses Rx was given. No retinopathy OD and OS. Monitor BG and A1C. Not available 05/26/2017 16:31:29 Reason for Referral None Reported. Results Created Date Observation Date Name Description Value Unit Range Abnormal Flag Note LastModifiedBy Organization Detail LastModifiedTime 08/11/19 17 08/11/2016 BMP, serum or plasm a glucose 99 mg/dL 70-100 Not Available [address], [place], [address], 08/11/2016 09:31:23 08/11/19 17 08/11/2016 BMP, serum or plasm a BUN 15 mg/dL 7-18 Not Available [address], [address], 08/11/2016 09:31:23 08/11/19 17 08/11/2016 BMP, serum or plasm a creatinine 1.2 mg/dL 0.8-1. 3 Not Available [address], [address], 08/11/2016 09:31:23 08/11/19 17 08/11/2016 BMP, serum or plasm a B/C 12.5 ratio Not Available [address], [address], 08/11/2016 09:31:23 08/11/19 17 08/11/2016 BMP, serum or plasm a GFR -non 67.8 mL/mi n Recom fracisco d GFR by the Natio nal Kidne y Found ation >60 mL/mi n/1.7 3m2 - Araceli l <60 mL/mi n/1.7 3m2 - Chron ic Kidne y Disea se <15 mL/mi n/1.7 3m2 - Kidne y Failu re Not Available [address], [address], 08/11/2016 09:31:23 08/11/19 17 08/11/2016 BMP, serum or plasm a GFR - if 82.1 mL/mi n For Afric an Ameri can patie nts: Resul ts Multi plied by 1.21 Not Available [address], [address], 08/11/2016 09:31:23 08/11/19 17 08/11/2016 BMP, serum or plasm a sodium 142 mmol/ L 136-14 5 Not Available [address], [address], 08/11/2016 09:31:23 08/11/19 17 08/11/2016 BMP, serum or plasm a potassium 4.5 mmol/ L 3.5-5. 1 Not Available [address], [address], 08/11/2016 09:31:23 08/11/1908/11/2016 BMP, serum or plasm a chloride 103 mmol/ L 96-107 Not Available [address], [address], 08/11/2016 09:31:23 08/11/1908/11/2016 BMP, serum or plasm a anion gap 13.2 5.0-15 .0 Not Available [address], [address], 08/11/2016 09:31:23 08/11/1908/11/2016 BMP, serum or plasm a CO2 26 mmol/ L 21-32 Not Available [address], [address], 08/11/2016 09:31:23 08/11/1908/11/2016 BMP, serum or plasm a calcium 9.6 mg/dL 8.5-10 .3 Not Available [address], [address], 08/11/2016 09:31:23 08/11/1908/11/2016 lipid panel , serum cholesterol 212 mg/dL <200 mg/dl Maurice able 200-2 39 mg/dl Borde rline High >240 mg/dl High Not Available [address], [address], 08/11/2016 09:31:23 08/11/1908/11/2016 lipid panel , serum triglyceride s 431 mg/dL high LIPM= Speci men Moder ately Lipem ic. Chem Resul ts may be effec kit. <150 mg/dL Araceli l 150-1 99 mg/dL Borde rline High 200-4 99 mg/dL High >500 mg/dL Very High Not Available [address], [address], 08/11/2016 09:31:23 08/11/1908/1108/11/2016 lipid panel , serum direct HDL 30 mg/dL Not Available [address], [address], 08/11/2016 09:31:23 08/11/19 17 08/11/2016 LDL, direc t, serum direct LDL 128 mg/dL RISK CATEG ORY LDL GOAL _ CHD or CHD Risk Equiv alent s <100 mg/dl (10-y ear risk >20%) 2+ Risk Facto rs <130 mg/dl (10-y ear risk <= 20%) 0-1 Risk Facto r? <160 mg/dl ? Almos t all peopl e with 0-1 risk facto r have a 10 year risk <10%, thus 10 year risk asses ment in peopl e with 0-1 risk facto r is not minoo anurag. Not Available [address], [address], 08/11/2016 09:31:24 10/16/19 17 10/15/2016 urina lysis , dipst ick, auto color YELLOW yellow normal Not Available [facility] [address], [address], 10/15/2016 15:18:59 10/16/1910/15/2016 urina lysis , dipst ick, auto appearance CLEAR clear normal Not Available [facility] [place] [facility] [address], [place], [address], 10/15/2016 15:18:59 10/16/1910/15/2016 urina lysis , dipst ick, auto specific gravity 1.020 1.001- 1.035 normal Not Available [facility] [place] [facility] [address], [place], [address], 10/15/2016 15:18:59 10/16/19 17 10/15/2016 urina lysis , dipst ick, auto pH 5.5 5.0-8. 0 normal Not Available [facility] [place] [facility] [address], [place], [address], 10/15/2016 15:18:59 10/16/19 17 10/15/2016 urina lysis , dipst ick, auto glucose NEGATI VE negati ve normal Not Available [facility] [place] [facility] [address], [place], [address], 10/15/2016 15:18:59 10/16/19 17 10/15/2016 urina lysis , dipst ick, auto bilirubin NEGATI VE negati ve normal Not Available [facility] [place] [facility] [address], [place], [address], 10/15/2016 15:18:59 10/16/19 17 10/15/2016 urina lysis , dipst ick, auto ketones NEGATI VE negati ve normal Not Available [facility] [place] [facility] [address], [place], [address], 10/15/2016 15:18:59 10/16/19 17 10/15/2016 urina lysis , dipst ick, auto occult blood TRACE negati ve abnormal Not Available [facility] [place] [facility] [address], [place], [address], 10/15/2016 15:18:59 10/16/19 17 10/15/2016 urina lysis , dipst ick, auto protein NEGATI VE negati ve normal Not Available [facility] [place] [facility] [address], [place], [address], 10/15/2016 15:18:59 10/16/19 17 10/15/2016 urina lysis , dipst ick, auto nitrite NEGATI VE negati ve normal Not Available [facility] [place] [facility] [address], [place], [address], 10/15/2016 15:18:59 10/16/19 17 10/15/2016 urina lysis , dipst ick, auto leukocyte esterase NEGATI VE negati ve normal Not Available [facility] [place] [facility] [address], [place], [address], 10/15/2016 15:18:59 10/16/19 17 10/15/2016 urina lysis , dipst ick, auto WBC 0-5 /hpf < or = 5 normal Not Available [facility] [place] [facility] [address], [place], [address], 10/15/2016 15:18:59 10/16/19 17 10/15/2016 urina lysis , dipst ick, auto RBC 0-2 /hpf < or = 2 normal Not Available [facility] [place] [facility] [address], [place], [address], 10/15/2016 15:18:59 10/16/19 17 10/15/2016 urina lysis , dipst ick, auto Unknown Analyte See Below This urine was deb zed for the prese nce of WBC, RBC, bacte álvaro, casts , and other forme d eleme nts. Only those eleme nts seen were repor kit. Not Available [facility] [place] [facility] [address], [place], [address], 10/15/2016 15:18:59 10/16/19 17 10/15/2016 cultu re, urine reflexive urine culture NO CULTUR E INDICA KIT Not Available [facility] [place] [facility] [address], [place], [address], 10/15/2016 15:19:00 10/16/19 17 10/18/2016 trigl yceri sidra, serum triglyceride s 184 mg/dL <150 mg/dL Araceli l 150-1 99 mg/dL Borde rline High 200-4 99 mg/dL High >500 mg/dL Very High Not Available [address], [address], 10/18/2016 10:15:35 10/16/19 17 10/18/2016 PSA, serum or plasm a PSA 0.62 NG/mL 0.00-4 .00 Not Available [address], [address], 10/18/2016 11:07:04 10/16/19 17 10/19/2016 cytol ogy screener normal WAC, CT( CP) CT scree zeke locat ion: [facility] [address], [place] [address] Not Available [facility] [address], [address], 10/19/2016 11:23:15 10/16/19 17 10/19/2016 cytol ogy pathologist normal Mike Mccloud M.D., Board Certi fied in Anato reno and Clini malik Patho logy (elec troni c signa ture) Consu lting Patho logis t [facility] Patho logy [address] [facility] [address] [place] [address] [phone] Not Available [facility] [address], [place], [address], 10/19/2016 11:23:15 10/16/19 17 10/19/2016 cytol ogy A source normal Urine Not Available [facility] [address], [place], [address], 10/19/2016 11:23:15 10/16/19 17 10/19/2016 cytol ogy A procedure Cytolo gy Not Available [facility] [address], [place], [address], 10/19/2016 11:23:15 10/16/19 17 10/19/2016 cytol ogy A gross description The name on the conta iner is in agree ment with the requi sitio n. 110 mL of clear mediu m yello w fluid , recei yumi in unkno wn fixat ricardo and proce ssed by the Thinp rep laith stiles () Gross exam( s) perfo rmed at: [facility] [address], [place] [address] Labor atory Direc tor: JENNY SÁNCHEZ MD Not Available [facility] [place] [facility] [address] [place], [place], [address], 10/19/2016 11:23:15 10/16/19 17 10/19/2016 cytol ogy A diagnosis Negat ricardo for malig nant cells . Not Available [facility] [place] [facility] [address], [place], [address], 10/19/2016 11:23:15 04/19/19 18 04/19/2017 BMP, serum or plasm a glucose 112 mg/dL 70-100 high Not Available [address], [address], 04/19/2017 12:03:36 04/19/19 18 04/19/2017 BMP, serum or plasm a BUN 14 mg/dL 7-18 Not Available [address], [address], 04/19/2017 12:03:36 04/19/19 18 04/19/2017 BMP, serum or plasm a creatinine 1.1 mg/dL 0.8-1. 3 Not Available [address], [address], 04/19/2017 12:03:36 04/19/19 18 04/19/2017 BMP, serum or plasm a B/C 12.7 ratio Not Available [address], [address], 04/19/2017 12:03:36 04/19/19 18 04/19/2017 BMP, serum or plasm a GFR -non 74.7 mL/mi n Recom fracisco d GFR by the Natio nal Kidne y Found ation >60 mL/mi n/1.7 3m2 - Araceli l <60 mL/mi n/1.7 3m2 - Chron ic Kidne y Disea se <15 mL/mi n/1.7 3m2 - Kidne y Failu re Not Available [address], [address], 04/19/2017 12:03:36 04/19/19 18 04/19/2017 BMP, serum or plasm a GFR - if 90.4 mL/mi n For Afric an Ameri can patie nts: Resul ts Multi plied by 1.21 Not Available [address], [address], 04/19/2017 12:03:36 04/19/19 18 04/19/2017 BMP, serum or plasm a sodium 142 mmol/ L 136-14 5 Not Available [address], [address], 04/19/2017 12:03:36 04/19/19 18 04/19/2017 BMP, serum or plasm a potassium 4.1 mmol/ L 3.5-5. 1 Not Available [address], [address], 04/19/2017 12:03:36 04/19/19 18 04/19/2017 BMP, serum or plasm a chloride 103 mmol/ L 96-107 Not Available [address], [address], 04/19/2017 12:03:36 04/19/19 18 04/19/2017 BMP, serum or plasm a anion gap 13.2 5.0-15 .0 Not Available [address], [address], 04/19/2017 12:03:36 04/19/19 18 04/19/2017 BMP, serum or plasm a CO2 26 mmol/ L 21-32 Not Available [address], [address], 04/19/2017 12:03:36 04/19/19 18 04/19/2017 BMP, serum or plasm a calcium 9.7 mg/dL 8.5-10 .3 Not Available [address], [address], 04/19/2017 12:03:36 04/19/19 18 04/19/2017 lipid panel , serum cholesterol 259 mg/dL LIPS= Speci men Sligh tly Lipem ic. Chem Resul ts may be effec kit. <200 mg/dl Maurice able 200-2 39 mg/dl Borde rline High >240 mg/dl High Not Available [address], [address], 04/19/2017 12:20:41 04/19/19 18 04/19/2017 lipid panel , serum triglyceride s 140 mg/dL <150 mg/dL Araceli l 150-1 99 mg/dL Borde rline High 200-4 99 mg/dL High >500 mg/dL Very High Not Available [address], [address], 04/19/2017 12:20:41 04/19/19 18 04/19/2017 lipid panel , serum direct HDL 41 mg/dL Not Available [address], [address], 04/19/2017 12:20:41 04/19/19 18 04/19/2017 LDL, direc t, serum direct LDL 178 mg/dL RISK CATEG ORY LDL GOAL _ CHD or CHD Risk Equiv alent s <100 mg/dl (10-y ear risk >20%) 2+ Risk Facto rs <130 mg/dl (10-y ear risk <= 20%) 0-1 Risk Facto r? <160 mg/dl ? Almos t all peopl e with 0-1 risk facto r have a 10 year risk <10%, thus 10 year risk asses ment in peopl e with 0-1 risk facto r is not minoo osborn. Not Available [address], [address], 04/19/2017 12:20:42 Result Notes None recorded. Problems Name Problem SNOMED Code Status Onset Date Resolution Date Notes Provider Name and Address Organization Details Recorded Time Essential hypertension 93580392 Active Renee Gates NP [address] [place] [address], [phone], [facility] 6 14:24:11 Tobacco user 570139482 Active Renee Gates NP [address] [place] [address], [phone], [facility] 6 14:15:00 Benign essential hypertension 7144382 Active Renee Gates NP [address] [place] [address], [phone], [facility] 6 14:15:00 Problem Notes None recorded. Procedures Surgical History Date Name Laterality Status Provider Name and Address Organization Details Recorded Time 05/27/19 18 Refraction completed Ney Rivero [facility] 05/26/2017 16:00:22 04/25/19 18 Smoking cessation counseling completed Rob Berry D.O. [address] [place] [address], [phone], [facility] 04/25/2017 16:41:04 08/31/19 17 Smoking cessation counseling completed Tarah Matthews LPN [facility] 08/30/2016 13:43:39 08/31/19 17 Carbon Monoxide Testing completed Tarah Matthews LPN [facility] 08/30/2016 13:43:39 04/19/19 17 Smoking cessation counseling completed GRECIA Araujo [facility] 04/19/2016 11:56:11 04/19/19 17 Carbon Monoxide Testing completed Sandra Troykele GRECIA [facility] 04/19/2016 11:58:02 10/13/19 16 Smoking cessation counseling completed Bridget Denny LPN [facility] 10/13/2015 15:20:30 10/13/19 16 Carbon Monoxide Testing completed Bridget Denny LPN [facility] 10/13/2015 15:36:06 08/25/19 16 Meek - Colonoscopy completed Fortino Eden MD [address] [place] [address], [phone], [facility] 08/25/2015 11:58:24 06/01/19 15 Smoking cessation counseling completed Bridget Cantu LPN [facility] 05/31/2014 16:26:02 03/22/19 15 Smoking cessation counseling completed Miley Urbano [facility] 03/22/2014 16:12:48 01/31/20 14 Smoking cessation counseling completed Bridget Cantu LPN [facility] 01/30/2014 11:14:07 07/17/19 14 Smoking cessation counseling completed Bridget Cantu LPN [facility] 07/16/2013 08:24:22 05/03/19 14 Smoking cessation counseling completed Bridget Cnatu DATA GOVERNANCE ANALYST [facility] 05/02/2013 08:50:33 12/15/19 13 Smoking cessation counseling completed Bridget Cantu DATA GOVERNANCE ANALYST [facility] 12/14/2012 09:32:08 Imaging Results None recorded. Procedure Notes None recorded. Medical Equipment None Reported. Allergies Allergen ID Allergen Name Allergen Category Reaction Reaction Severity Criticality Documentation Date Start Date Code Code System Note Provider Name and Address Organization Details Recorded Time [id number] lisinopri l medicatio n nausea Not available Not available 07/25/2012 56598 RxNorm MIRIAM Kerr [facility] 3 14:29:59 Medications Name Sig Start Date Stop Date Status Note LastModified by Organization Details LastModified Time Prescript ion - Prior Authoriza tion Request active Not Available Not Available Not Available amoxicill in 500 mg capsule Take 2 capsules twice a day by oral route as directed for 14 days. 04/25 completed Not Available Not Available Not Available doxycycli ne hyclate 100 mg capsule TAKE 1 CAPSULE BY MOUTH TWICE A DAY FOR 7 DAYS 08/30 completed Not Available Not Available Not Available diltiazem CD 180 mg capsule,e xtended release 24 hr TAKE 1 CAPSULE EVERY DAY DIRECTED 2017 active Not Available Not Available Not Avai lable clarithro mycin 500 mg tablet Take 1 tablet twice a day by oral route as directed for 14 days. 04/25 completed Not Available Not Available Not Available sumatript an 100 mg tablet TAKE 1 TABLET BY MOUTH AT FIRST SIGN OF HEADACHE . CAN REPEAT IN 2 HOURS... 2017 active Not Available Not Available Not Avai lable lisinopri l 20 mg tablet Take 1 tablet every day by oral route. active Not Available Not Available No t Available sumatript an 6 mg/0.5 mL subcutane ous cartridge (refill) Inject by subcutan eous route. 2014 active Not Available Not Available Not Avai lable sumatript an 5 mg/actuat ion nasal spray USE 1 SPRAY IN EACH NOSTRIL AT 1ST ONSET OF H/A-IF NOT RESOLVED IN 2 HRS ... 08/30 completed Not Available Not Available Not Available prochlorp erazine maleate 10 mg tablet TAKE 1 TABLET BY MOUTH EVERY 6 HOURS NEEDED 10/12 completed Not Available Not Available Not Available cyclopent olate 1 % eye drops INSTILL 1 DROP INTO AFFECTED EYE(S) 3 TIMES DAILY 08/30 completed Not Available Not Available Not Available amoxicill in 875 mg tablet TAKE 1 TABLET BY MOUTH EVERY 12 HOURS FOR 7 DAYS 06/30 completed Not Available Not Available Not Available prednisol one acetate 1 % eye drops,alexis pension INSTILL 1 DROP INTO AFFECTED EYE(S) EVERY 2 HOURS FOR 2 DAYS THEN DIRECTED 08/30 completed Not Available Not Available Not Available NTS Step 1 21 mg/24 hr transderm al 24 hour patch APPLY 1 PATCH EVERY DAY DIRECTED active Not Available Not Available No t Available hydrochlo rothiazid e 12.5 mg capsule TAKE ONE CAPSULE BY MOUTH EVERY DAY active Not Available Not Available No t Available omeprazol e 20 mg capsule,d elayed release TAKE 1 CAPSULE BY MOUTH EVERY DAY 2017 active Not Available Not Available Not Avai lable ammonium lactate 12 % topical cream Apply 1 applicat ion twice a day by topical route. 2017 active PRN Not Available Not Available Not Avai lable ranitidin e 150 mg capsule Take 1 capsule twice a day by oral route. active Not Available Not Available No t Available nystatin 100,000 unit/gram topical powder Apply by topical route to feet while wearing shoes 2012 active Not Available Not Available Not Avai lable losartan 100 mg tablet TAKE 1 TABLET EVERY DAY active Not Available Not Available No t Available clotrimaz ole 1 % topical cream APPLY TOPICALL Y TO FEET PRIOR TO BEDTIME active Not Available Not Available No t Available sumatript an 6 mg/0.5 mL subcutane ous pen injector INJECT BY SUBCUTAN EOUS ROUTE. active Not Available Not Available No t Available nicotine (polacril ex) 4 mg buccal lozenge USE 1 LOZENGE EVERY 2 HOURS NEEDED active patient is not currentl y using 08/30/2016 MRLPN Not Available Not Available Not Available peg 3350-elec trolytes 236 gram-22.7 4 gram-6.74 gram-5.86 gram solution USE DIRECTED 10/12 completed Not Available Not Available Not Available Chantix Continuin g Month Krunal 1 mg tablet TAKE 1 TABLET BY MOUTH TWICE A DAY 08/30 completed pt declined 2-20-17 KB Not Available Not Available Not Available omeprazol e 20 mg tablet,de layed release Take 1 tablet twice a day by oral route for 30 days. 05/18 completed Insuranc e will not cover >1 cap daily but will cover >1 tab. Please reapprov e for pt Not Available Not Available Not Available Chantix Starting Month Box 0.5 mg (11)-1 mg (42) tablets in dose pack TAKE DIRECTED 08/30 completed not using currentl y 08/30/2016 MRLPN Not Available Not Available Not Available Vitals Date Recorded Body height Body mass index (BMI) Body weight Heart rate Systolic blood pressure Diastolic blood pressure Provider Name and Address Organization Details Last Updated DateTime 7 194.31 cm 31 kg/m2 639547. 83 g 64 /min 140 mm[Hg] 80 mm[Hg] Tarah Matthews , DATA GOVERNANCE ANALYST [facility] 7 13:54:29 Date Recorded Body height Body mass index (BMI) Body weight Heart rate Systolic blood pressure Diastolic blood pressure Provider Name and Address Organization Details Last Updated DateTime 8 194.31 cm 33.6 kg/m2 259614. 86 g 68 /min 138 mm[Hg] 68 mm[Hg] GRECIA Araujo [facility] 8 16:10:12 Social History Question Answer Notes LastModified by Organizat ion Details LastModified Time Tobacco Smoking Status Current Every Day Smoker 1/3 pack daily MIRIAM Kahn [facility] 08/30/2016 13:50:47 What Is Your Level Of Alcohol Consumption? Moderate Information not available 07/25/2012 What Is Your Level Of Caffeine Consumption? Occasional Information not available 07/16/2013 How Much Tobacco Do You Chew? None Information not available 04/23/2015 What Type Of Diet Are You Following? REGULAR Information not available 07/25/2012 Education 12 Information n ot available 08/30/2016 How Many Days In The Past Year Have You Had A Heavy Drinking Consumption (4+ Female, 5+ Male)? 6 Information not available 07/25/2012 Are There Any Guns Present In Your Home? No Information not available 07/16/2013 Live Alone Or With Others? With Others Information not available 07/16/2013 Patient Has Health Care Proxy Signed And In Chart No Form Given To Pt 07/16/13, 04/23/15 Information not available 07/16/2013 Marital Status Single Informatio n not available 07/25/2012 Mosquito Repellent Used Routinely Yes Information not available 07/16/2013 What Was The Date Of Your Most Recent Tobacco Screening? 04/25/2017 Information not available 09/20/2018 How Many Children Do You Have? 2 Information not available 07/25/2012 What Is Your Current Pack Years? 30ormorepackye ars Declines CO Testing Information not available 04/23/2015 Seat Belts Used Routinely Yes Information not available 07/16/2013 Are You Sexually Active? Yes Information not available 07/16/2013 Smoke Alarm In Home Yes Information not available 07/16/2013 General Stress Level High Information not available 07/16/2013 Do You Use Sunscreen Routinely? No Information not available 07/16/2013 Sex: Unknown Functional Status None recorded. Mental Status None recorded. Family History Nothing Reported Notes:Mother: HTN, COPD, has had two MIs, DM on dyalisis Father: does not know about him Brother: HTN Sister: diabetes, HTN Medical History Condition Response Hypertension Y OTHER Immunizations Vaccine Type Date Status Note Provider Nam e and Address Organization Details Recorded Time Td(adult) unspecified formulation 12/01/2011 completed Caroline Calhoun LPN [facility] 08/28/2013 12:04:40 Past Encounters Encounter ID Performer Location Encounter Start Date Encounter Closed Date Diagnosis/Indication Diagnosis SNOMED-CT Code Diagnosis ICD10 Code Diagnosis Note [id number] Luh Harrison LPN [facility], OFFICE [address] [place] [address] 07/25/2012 14:13:58 07/25/2012 15:13:11 [id number] Luh Harrison LPN [facility], OFFICE [address] [place] [address] 12/14/2012 09:18:35 12/14/2012 10:00:05 Tobacco user [id number] will ing to quit. discussed treatment options- side effects of meds. Essential hypertension 95361150 did blood work this am BP meds working well, no side effects Dermal mycosis 61093159 [id number] Luh Harrison LPN Podiatry, [facility] [address] [place] [address] 01/02/2013 13:30:26 01/04/2013 16:24:54 Disorder of nail 09143049 Hypertroph ic condition of skin 01765643 Tinea pedis 6095376 [id number] [facility], OFFICE [address] [place] [address] 04/10/2013 15:07:03 04/11/2013 09:20:14 Abdominal pain 24303391 Intermitte nt abdominal pain Unclear etiology Will check labs below. Will start ranitidine 150 mg bid Keep bland, low residue diet. Keep well hydrated Call/go to ER with wrosening pain, fever, vomitting F/U dependent on results below. [id number] Melly Nguyen , [facility], OFFICE [address] [place] [address] 05/02/2013 08:38:30 05/03/2013 08:20:44 Tobacco user 535382976 advised to quit- will helpo with gastritis Gastritis 7228178 comple kit h-pylori tx. ok to contineu omeprazole ONCE daily for additional 6 weeks if no continued improvemen t, will send for endoscopy Essential hypertension 89198865 at goal as <160/90 [id number] Carmen Zendejas , [facility], OFFICE [address] [facility] [place] [address] 06/25/2013 11:26:21 06/25/2013 13:21:28 Colitis, enteritis and gastroenteritis presumed infectious 866593490 Most acute gastroente ritis ( stomach flu ) is caused by viruses and resolves without interventi on. Low suspicion of C Diff by history but does have risk factor for C diff with recent Abx, Recommend clear liquid diet including salt and sugar (broth, Gatorade, popsicles, Pedialyte) . Drink small quantities if vomiting; 5 cc (1 teaspoon) every five minutes may be necessary. Suggest ice chips, gingerale or ysabel candy for nausea. Resume bland diet once vomiting ceases, but include simple proteins like chicken or egg whites. If over the age of 2 years, may use immodium (over-the- counter) for diarrhea. Report abdominal pain, bloody or black stools (though pepto bismol can cause this), fever >101 for 3 days, or inability to keep fluid down or decreased urine output, or if diarrhea does not improve in 2-3 days. [id number] Marialuisa HAND, [facility], OFFICE [address] [place] [address] 07/16/2013 07:52:22 07/16/2013 09:07:11 Benign essential hypertension 8787597 Blood pressure at goal as <160/90 recommende d starting baby aspirin daily Tobacco user 914540360 w ill retry chantix. last time he had a stomach bug and medicine worsened his symtpoms Adult heal th examination 904324034 see Risk Assessment and Lifestyle Change Counseling section above Counseling [id number] [facility] [id number] [facility], OFFICE [address] [place] [address] 01/30/2014 10:31:30 02/01/2014 08:53:49 Tobacco user 337993181 Chantix BID makes him tired, advised once daily chantix Chest pain 49405805 [id number] LAVERNE Hay, [facility], OFFICE [address] [place] [address] 03/22/2014 16:07:32 03/22/2014 16:27:15 Tobacco user 673246319 Will d/c Chantix Will try nicotine replacemen t patches 21 mcg qd/ reviewed how to use. Migraine 06273503 Hx of cluster headaches Will see if any relief with sumatripta n- subq is recommende d for cluster but pt declines. Also declines nasal. Will see if any relief with oral. F/U prn [id number] Bridget Cantu LPN [facility], OFFICE [address] [place] [address] 04/15/2014 14:45:26 04/15/2014 15:18:07 Chronic cluster headache 459342345 [id number] Yasmine Urban [facility], OFFICE [address] [place] [address] 05/31/2014 16:08:50 06/06/2014 09:14:54 Essential hypertension 84256318 at goal as <150/90 Tobacco user 471309264 w ill go back on the patches Dermal mycosis 33280105 [id number] Renee Gates NP , [facility], OFFICE [address] [place] [address] 04/23/2015 14:23:45 04/23/2015 14:58:30 Adult health examination 582235182 Z00.00 Screening for disorder 934142754 Z11.59 Screening for malignant neoplasm of colon 720319842 Z12.11 Referral for a DIRECT booked colonoscop y. This patient is a healthy ASA Class 1 or 2 patient (only mild systemic disease), or a STABLE, well controlled insulin dependent diabetic. They do not have serious cardiac disease ie SD/angiopl asty within 1 year, symptomati c CHF; renal failure with CKD 4 or 5; take Coumadin, Plavix, Aggrenox, etc; nor take chronic narcotics. [Patients who take chronic narcotics should be referred to [facility] for a propofol procedure due to possible inability to sedate adequately with conscious sedation.] Benign ess ential hypertension 5979211 I10 BP not at goal will start cardizem 180 mg qd c/w hctz and losartan rto 4 weeks for f/u Nicotine dependence 5629 4008 F17.200 discussed smoking cessation has not been consistent with patches will try patches and chantix which he did previously Shoulder pain 90461147 M 25.512 L shoulder likely bicep tendinitis advised ice regularly, given handout with exercise. [id number] Renee Gates NP , [facility], OFFICE [address] [place] [address] 05/07/2015 13:58:09 05/07/2015 14:24:35 Acute upper respiratory infection 56143146 J06.9 Educated patient that URI is a viral illness of the upper airways. It is not bacterial and does not benefit from antibiotic s. Average duration of URI is 7-10 days in 2-4 weeks. Advised mucinex bid, Afrin, fluids rest Essential hypertension 93131159 I10 at goal with addition of cardizem tolerating well will c/w medication [id number] Mauricio Larry DPM Podiatry, [address] [place] [address] 07/11/2015 12:30:35 07/11/2015 13:02:01 Acquired keratoderma 754176328 L85.1 [id number] Fortino Eden MD [facility], [address] [place] [address] 08/25/2015 09:29:09 08/25/2015 13:50:25 [id number] Rob Berry D.O. , [facility], [address] [place] [address] 10/13/2015 14:49:37 10/17/2015 09:44:01 Benign essential hypertension 2207021 I10 Blood pressure at goal Cigarette smoker 9459620 7 F17.210 sleepy when takes chantix in amagrees to take at bedtime only Tobacco user 414200778 Z 72.0 Acquired keratoderma 400 307639 L85.1 Heart murmur 59877124 R0 1.1 RUSB- suspect Aortic stenosis- discussed aggressive tx with HTN meds and quitting smoking [id number] Mariana Augustin MD , [facility], OFFICE [address] [place] [address] 04/19/2016 11:45:02 04/19/2016 12:29:15 Cigarette smoker 21571601 F17.210 Nicotine lozenges and verbal counseling done today. Acute otitis media 40048 03 H66.93 You have ear infections , worse on the right. Basically looks like when you got a cold it settled in the ears instead of getting all better. The treatment is antibiotic s morning and night for a week, drink a lot of fluids and saline nasal spray frequently may also help the ear nose and throat passages. Even though ear infections are usually cured by the antibiotic s, the blocked feeling may take 4-6 weeks to go away. If you have a sense that the antibiotic did not work at all then we should see you soon like in a week or so but if it felt like you did get significan t improvemen t then you should probably wait longer. If your ears still feel very blocked in a month we should take a look. [id number] Renee Gates NP , [facility], OFFICE [address] [place] [address] 06/30/2016 11:04:55 06/30/2016 11:46:31 Cluster headache 246880899 G44.009 dx 2009cluste rs more severe, frequent- usu last monthsneve r tried o2 tx- will try to arrangewil l see if any improved response with nasalrefer ral to Neurohas pha in 2 months Injury of finger 3691202 8 S69.81XA doing wellno infection Tobacco user 834584883 Z 72.0 declined conot ready to quitdiscus sed importance will c/t address Benign ess ential hypertension 0578455 I10 BP at goalc/w meds [id number] Darrian Alfredo, OD [facility], [address] [address] 08/03/2016 13:50:25 08/03/2016 16:10:45 Acute iritis 18486030 H20.023 [id number] Concetta Mansfield, OD [facility], [address] [address] 08/04/2016 09:54:19 08/05/2016 09:36:12 Acute iritis 72743774 H20.011 C/o of PF and cyclopento late [id number] Darrian Alfredo, [facility], [facility] [address] [place], [place] [address] 08/10/2016 14:18:26 08/10/2016 14:47:16 Acute iritis 45716507 H20.011 ResolvedTa per PredForte as directedRe turn if starts up again [id number] Renee Gates NP , [facility], OFFICE [address] [place] [address] 08/30/2016 13:15:00 08/30/2016 14:13:20 Adult health examination 544110815 Z00.00 see Risk Assessment and Lifestyle Change Counseling section aboveColon oscopy: 08/25/15 Counseling 575037344 Z71 .9 Benign ess ential hypertension 7163866 I10 Blood pressure at goal of < 140/90will work on diet- low saltexerci se Cigarette smoker 8004951 7 F17.210 discussed importance of smoking cessationc ongratulat ed on reductionw ill c/t address cessation Tobacco user 219340726 Z 72.0 discussed importance of smoking cessation congratula kit on reduction will c/t address cessation Acquired keratoderma 400 844161 L85.1 RF Gastroesop hageal reflux disease 885457187 K21.9 stable on omeprazole RF Migraine 99016642 G43.90 9 Hx of cluster headachesh as upcoming neuro consult 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 , [facility], OFFICE [address] [place] [address] 04/25/2017 15:38:16 04/25/2017 16:55:35 Benign essential hypertension 8632616 I10 Blood pressure at goal Screening for disorder 637241498 Z11.59 Cluster headache 5597208 [address] martinez recommende d going on verapamil and dosing up every 2 weeks - 120 mg, then 240 mg, then 360 mg. he still wants to think about this. if decides, will d/c diltiazem Folliculitis 18455065 L7 3.9 axiallary- discussed wearing looser shirts [id number] Concetta Mansfield, OD [facility], [address] [address] 05/26/2017 15:37:47 05/27/2017 07:07:02 Presbyopia 50428117 H52.4 Myopic astigmatism 63977 4005 H52.209 Type 2 camila betes mellitus without complication 702439906 E11.9 Health Concerns Section Related Observation LastModified by Organization Detai ls LastModified Time None Recorded Concern Status LastModified by Organization Details LastModified Time None Recorded Advance Directives Directive None Recorded Payers Encounter Date Sequence Insurance Name Policy Number Policy Guillen Covered Member ID Guillen Member ID Guarantor Name 08/04/2016 1 [facility] [employer] [facility] [facility]ICAID HMO) [id number] Jesse Patrick [id number] Jesse Patrick 08/10/2016 1 [facility] [employer] (MEDICAID HMO) [id number] Jesse Patrick [id number] Jesse Patrick 08/30/2016 1 [facility] [employer] (MEDICAID HMO) [id number] Jesse Patrick [id number] Jesse Patrick 04/25/2017 1 [facility] [employer] (MEDICAID HMO) [id number] Jesse Patrick [id number] Jesse Patrick 05/26/2017 1 [facility] [employer] (MEDICAID HMO) [id number] Jesse Patrick [id number] Jesse Patrick Notes Date Note Type Note Provider Name and Address Organization Details Recorded Time 7 text/html Comprehensive Eye ExamReported bypatient.Quality:year exam (F/U); no blurred vision Location:bilateral Context:currently wears glasses Modifying factors:wears glasses for distance and near Associated Symptoms:no itching; no floaters; no dryness;redness Concetta Mansfield, OD [address] [place] [address], [address], [facility] 08/04/2016 16:58:42 7 text/html Feels 100% better-no pain, irritation, light sensitivity. Vision is fine. Using PF 3x/day for past two days.No discharge. Darrian Juni, OD [address] [facility], [place], [address], [facility] 08/10/2016 14:37:34 7 text/html Physical Exam/MaleReported bypatient.PHAPatient is here for a Wellness Visit. He describes his health status as good. Patient's health is the same as last year.Risk Assessment and Lifestyle Change Counseling-male 40-49Reported bypatient.Coronary Artery Disease Risk Assessment:Family History of Coronary Artery Disease; Regular exercise program; No personal history of diabetes; No history of peripheral vascular disease, AAA, or carotid disease; No personal history of coronary artery disease Colon Cancer Risk Assessment:No family history of colon polyps or cancer DietCounseled about the importance of maintaining a positive calcium balance by taking 12-1500 mg calcium and 1000 iu Vitamin D daily.; Discussed the value of a Mediterranean diet , and eating more fruits and vegetables Exercise counseling:Discussed the importance of daily physical activity Safety:Counseled about protecting skin from the sun and lowering the risk of skin cancerVMG HypertensionReported bypatient.Control:BP Goal less than; Patient understands medications are to lower blood pressure Compliance:Compliant with medications; Compliant with diet; Compliant with exercise; Compliant with follow-up visits Barriers to CareNo identified barriers to care Self Care:Using home BP monitor home BPs range ;not doing home bp monitoring Context:No ischemic heart disease; No kidney disease; No history of CVA; No congestive heart failure; No history of transient ischemic attacks; No peripheral vascular disease; No history of diabetes Associated Symptoms:No chest pain; No shortness of breath; No edema; No fatigue; No palpitations; No decline in exercise capacity; No snoringa/vmg-smoking [id number] bypatient.ImportanceOn a scale of 1-10 with 1 being not important and 10 being very important the patient rates importance of stopping smoking as 10 ConfidenceOn a scale of 1-10 with 1 being not confident and 10 being very confident the patient rates confidence on stopping smoking as 3 Readiness to quit smokingOn a scale of 1-10 with 1 being not ready and 10 being very ready the patient rates readiness to stop smoking as 10 Physiological Dependence/Health RiskCurrently smoking 10 cigarettes per day; Patient has tried to stop smoking 1 times. Medication AssessmentHas used Patch in the past (does not consistently used it.); Has used Chantix in the past (made him tired but did help)Notes:cut down to 1 pack per 3 days.nto able to smoke much Renee Gates NP [address] [place], [address], [facility] 09/01/2016 20:15:10 8 text/html VMG HypertensionReported bypatient.Control:Treated with medications; Patient understands medications are to lower blood pressure Compliance:Compliant with medications; Compliant with diet; Compliant with exercise; Compliant with follow-up visits Barriers to CareNo identified barriers to care Self Care:Using home BP monitor home BPs range ;not doing home bp monitoring Context:No ischemic heart disease; No kidney disease; No history of CVA; No congestive heart failure; No history of transient ischemic attacks; No peripheral vascular disease; No history of diabetes Aggravating factors:smoker Associated Symptoms:No chest pain; No shortness of breath; No edema; No fatigue; No palpitations; No decline in exercise capacity; No snoringNotes: a/vmg-smoking [id number] bypatient.Physiological Dependence/Health RiskCurrently smoking 20 cigarettes per day Medication AssessmentHas used Chantix in the past (made him sleepy) Rob Berry D.O. [address] [place] [address], [phone], [facility] 04/25/2017 16:43:20 8 text/html Comprehensive Eye ExamReported bypatient.Quality:2 year exam; no blurred vision Location:bilateral Context:currently wears glasses Modifying factors:wears glasses for distance and near Associated Symptoms:no redness; no itching; no floaters; no dryness Concetta Mansfield, OD [address] [place], [address], [facility] 05/26/2017 16:31:57
--- OUTSIDE RECORDS SUMMARY | 2024-05-09 10:58 | XMS_ITS | Clinical Summary ---
Author Organization [facility] Address [address] [place] [address] Care Team Providers Care Bread Jockey Name Role Phone Grecia Bonilla MD Primary Care Provider [phone] Allergies No known active allergies Medications acetaminophen (TYLENOL) 500 mg tablet Take 1 tablet (500 mg total) by mouth 2 (two) times a day. 07/12/2023 Active ammonium lactate (AMLACTIN) 12 % cream Apply topically. 07/12/2023 Active aspirin 81 mg EC tablet Take 1 tablet (81 mg total) by mouth. Active atorvastatin (LIPITOR) 20 mg tablet Take 1 tablet (20 mg total) by mouth. Active dilTIAZem CD (CARDIZEM CD) 180 mg 24 hr capsule Take 1 capsule (180 mg total) by mouth. Active furosemide (LASIX) 20 mg tablet Take 1 tablet (20 mg total) by mouth. 08/29/2023 Active ibuprofen (ADVIL,MOTRIN) 400 mg tablet Take 1 tablet (400 mg total) by mouth. Active ketoconazole (NIZORAL) 2 % cream Apply topically. 08/01/2023 Active losartan (COZAAR) 50 mg tablet Take 2 tablets (100 mg total) by mouth. Active metFORMIN (GLUCOPHAGE) 1,000 mg tablet Take 1 tablet (1,000 mg total) by mouth. Active omeprazole (PriLOSEC) [address] capsule Take 1 capsule (20 mg total) by mouth. Active simethicone (MYLICON) 80 mg chewable tablet Chew 1 tablet (80 mg total) every 6 (six) hours if needed. 05/04/2023 Active trametinib (MEKINIST) 2 mg tablet Take 1 tablet (2 mg total) by mouth 05/05/2023 Active Social History Tobacco Use Types Packs/Day Years Used Date Smoking Tobacco: Never Assessed Sex and Gender Information Value Date Recorded Sex Assigned at Not on file Legal Sex Male 9:33 AM EST Gender Identity Not on file Sexual Orientation Not on file Last Filed Vital Signs Vital Sign Reading Time Taken Comments Blood Pressure - - Pulse - - Temperature - - Respiratory Rate - - Oxygen Saturation - - Inhaled Oxygen Concentration - - Weight 138 kg (304 lb) 11/17/2023 8:26 AM EDT Height 193 cm (6' 4 ) 11/17/2023 8:26 AM EDT Body Mass Index 37 11/17/2023 8:26 AM EDT Plan of Treatment Health Maintenance Due Date Last Done Comments COVID-19 Vaccine (#1) 1970 DTaP,Tdap,and Td Vaccines (1 - Tdap) 02/14/1984 Hepatitis B Vaccines (1 of 3 - 19+ 3-dose series) 02/14/1984 Pneumococcal Vaccine: 50+ Ye ars (1 of 2 - PCV) 02/14/1984 Pneumococcal Vaccine: Pediat rics (0 to 5 Years) and At-Risk Patients (6 to 64 Years) (1 of 2 - PCV) 02/14/1984 Zoster Vaccines (1 of 2) 2015 Cholesterol Screening (Lipid Panel) 01/31/2022 Colorectal Cancer Screening: Colonoscopy 01/31/2022 Depression Screening 01/31/2022 HIV Screening 01/31/2022 Social Influencers of Health Screening 01/31/2022 Influenza Vaccine (#1) 2023 RSV Immunization Patients 60 + Years Old (1 - 1-dose 75+ series) 02/14/2040 Hepatitis C Screening Completed 07/20/2022 HIB Vaccines Aged Out No longer eligi ble based on patient's age to complete this topic HPV Vaccines Aged Out No longer eligi ble based on patient's age to complete this topic Hepatitis A Vaccines Aged Out No long er eligible based on patient's age to complete this topic IPV Vaccines Aged Out No longer eligi ble based on patient's age to complete this topic MMR Vaccines Aged Out No longer eligi ble based on patient's age to complete this topic Meningococcal ACWY Vaccine Aged Out N o longer eligible based on patient's age to complete this topic Meningococcal B Vacine Aged Out No lo nger eligible based on patient's age to complete this topic RSV Immunization Patients Un shelton 20 months Aged Out No longer eligible b ased on patient's age to complete this topic Varicella Vaccines Aged Out No longer eligible based on patient's age to complete this topic Procedures Procedure Name Priority Date/Time Associated Diagnosis Comments HEPATITIS C SCREENING Routine 07/20/2022 from Last 3 Months or Most Recently Relevant to Health Maintenance Results * Hepatitis C Screening (07/20/2022) Hepatitis C Screening abstracted Historical Provider MD HEALTH MAINTENANCE Final Result from Last 3 Months or Most Recently Relevant to Health Maintenance Care Teams Bread Jockey Relationship Specialty Start Date End Date Grecia Bonilla MD [address] [place] [address] [place] [address] PCP - General 05/06/23
--- OUTSIDE RECORDS SUMMARY | 2024-05-09 10:58 | XMS_ITS | Clinical Summary ---
Author Organization [facility] Facility Address [address] [place] [address] Care Team Providers Care Professional Development Director Name Role Phone Unavailable Primary Care Provider Unavailabl e Social History Tobacco Use Types Packs/Day Years Used Date Smoking Tobacco: Never Assessed Sex and Gender Information Value Date Recorded Sex Assigned at Not on file Legal Sex Male 11:17 AM EDT Gender Identity Not on file Sexual Orientation Not on file Plan of Treatment Health Maintenance Due Date Last Done Comments Hepatitis B Vaccine (1 of 3 - 19+ 3-dose series) 02/14/1984 Colorectal Cancer Screening: Annual FOBT 2014 Colorectal Cancer Screening: Colonoscopy 2014 Colorectal Cancer Screening: Sigmoidoscopy 2014 Diabetes: Hemoglobin A1C 06/04/2022 Diabetes: Ophthalmology Exam 06/04/2022 Diabetes: Pedal Pulse Checked 06/04/2022 Diabetes: Sensory Foot Exam 06/04/2022 Diabetes: Visual Foot Exam 06/04/2022 Influenza Vaccine (#1) 2023 Pneumococcal Vaccine: Pediat rics (0 to 5 Years) and At-Risk Patients (6 to 64 Years) Aged Out No longer eligible b ased on patient's age to complete this topic Insurance [facility] MEDICAID [facility]
[2024-05-09 11:16] LABS: Estimated Average Glucose 143 mg/dL; Hemoglobin A1c % 6.6 % (<6.0)
[2024-05-09 11:29] LABS: Calcium 10.5 mg/dL (8.4-10.2); Phosphorus 3.9 mg/dL (2.7-4.5)
== END 2024-05-09 09:51 | disposition home or self-care (01) ==
LOC: HO.10HDL 09:50
PROVIDERS: Visit Provider Internal Medicine
DX: E11.9 Type 2 diabetes mellitus without complications (principal); E21.2 Other hyperparathyroidism; E78.00 Pure hypercholesterolemia, unspecified; I10 Essential (primary) hypertension
CPT/HCPCS: 36415; 82310; 83036; 83970; 84100

== ENCOUNTER 2024-05-19 06:43 | Emergency (ER) | payer MEDICARE, MEDICAID, SELFPAY ==
--- NOTE | ~2024-05-19 | XR_ITS ---
CLINICAL HISTORY: cp 1 view chest x-ray Comparison: 01/15/2024 Findings: Portions of the exam are obscured by overlying material. There is bibasilar consolidation, possible pneumonia, scarring or subsegmental atelectasis Heart size is normal. No acute fracture. IMPRESSION: 1. Bibasilar consolidation, differential considerations noted. This document has been electronically signed by: Nacho Mary MD on 05/19/2024 08:20:59
[2024-05-19 06:53] VITALS: BP 146/95; BP 176/100; PULSE 87; PULSE 96; RESP 16; TEMP 37.3; O2SAT 94; O2SAT 97; BMI 39.0
--- NOTE | 2024-05-19 06:57 | ECG_ITS ---
Test Reason : CP Blood Pressure : */* mmHG Vent. Rate : 86 BPM Atrial Rate : 86 BPM P-R Int : 176 ms QRS Dur : 94 ms QT Int : 372 ms P-R-T Axes : 63 14 47 degrees QTcB Int : 445 ms Normal sinus rhythm Septal infarct , age undetermined Abnormal ECG When compared with ECG of 15-Jan-2024 12:00, Septal infarct is now Present Referred By: Generic ED Physician Electronically Signed By: Chris Cruz
--- NOTE | 2024-05-19 07:22 | ED.CHESTPAIN ---
HPI - Chest Pain General Chief Complaint: Chest Pain Stated Complaint: CHEST PRESSURE Time Seen by Provider: 05/19/24 07:12 Source: patient, family and EMS Mode of arrival: EMS Limitations: no limitations History of Present Illness ED Provider: DR. Paulino HPI narrative: 59-year-old history of HTN, DM, HLD, paroxysmal AFib not on anticoagulation, stage IV lung cancer on chemotherapy last chemo session was 3 days ago came in for evaluation epigastric/lower chest discomfort started 3 days ago is been intermittent patient woke up from sleep last night for the discomfort feels like gas in the epigastric area reports that it relieved by burping, last me last night was rice and beans right before bedtime, patient is nonsmoker, currently has no pain or discomfort, no nausea, no vomiting, no fever, no lower extremity swelling or tenderness, no difficulty breathing. Related Data Home Medications ?Medication ?Instructions ?Recorded ?Confirmed atorvastatin 40 mg tablet 40 mg PO DAILY 01/26/23 diltiazem HCl 360 mg 360 mg PO DAILY 01/26/23 capsule,extended release 24 hr losartan 100 mg tablet 100 mg PO DAILY 01/26/23 losartan 100 1 tab PO DAILY 01/26/23 mg-hydrochlorothiazide 25 mg tablet metformin 1,000 mg tablet 1,000 mg PO BID 01/26/23 omeprazole 20 mg capsule,delayed 20 mg PO DAILY 01/26/23 release trametinib 2 mg tablet (Mekinist) 2 mg PO DAILY 01/26/23 Previous Rx's ?Medication ?Instructions ?Recorded amoxicillin 500 mg capsule 500 mg PO Q8H #30 caps 01/26/23 fluticasone furoate 27.5 2 spray intranasal DAILY #6.6 mL 06/01/23 mcg/actuation nasal spray,suspension (Flonase Sensimist) Allergies Allergy/AdvReac Type Severity Reaction Status Date / Time No Known Allergies Allergy Verified 05/19/24 06:57 Review of Systems Review of Systems: All other systems are reviewed and are negative Constitutional: Reports as per HPI and Reports no additional constitutional complaints Eyes: Reports as per HPI and Reports no additional eye complaints Reports system reviewed and no additional complaints, except as documented Cardiovascular: Reports as per HPI and Reports no additional cardiovascular complaints Respiratory: Reports as per HPI and Reports no additional respiratory complaints Gastrointestinal: Reports as per HPI and Reports no additional gastrointestinal complaints Genitourinary: Reports no additional female genitourinary complaints Musculoskeletal: Reports no additional musculoskeletal complaints Skin/Breast: Reports system reviewed and no additional complaints, except as docu Psychiatric: Reports no additional psychiatric complaints Endocrine: Reports no additional endocrine complaints Hematologic/Lymphatic: Reports no additional hematologic/lymphatic complaints Allergic/Immunologic: Reports no additional allergic/immunologic complaints Reports system reviewed and no additional complaints, except as documented and Reports Abnormal speech present [facility] Past Medical History Medical History GERD (gastroesophageal reflux disease) Cluster headaches Type 2 diabetes mellitus Hypercholesterolemia Hypertension Palpitations Stage 4 lung cancer Social History Social History Patient Tobacco Use Status: Never used Tobacco Smoked in Last 30 Days: No Use of substances other than those prescribed or required for medical reasons: No Advance Directives: No Advance Directives Information Provided: No Physical Exam Vital Signs: Vital Signs: Last Vital Signs Temp 98.4 F 05/19/24 08:03 Pulse 84 05/19/24 10:28 Resp 14 05/19/24 10:28 BP 175/111 H 05/19/24 10:28 Pulse Ox 96 05/19/24 10:28 O2 Del Method Room Air 05/19/24 10:28 BMI result Body Mass Index 39.0 Vital signs have been reviewed and appear to be correct. Blood pressure elevated. Heart rate normal. Respiratory rate normal. Temperature normal. Oxygen saturation normal. Appearance: Alert. Oriented X3. No acute distress. Head: Normal external exam. Normocephalic. Atraumatic. No Jain signs noted. No raccoon eyes noted Eyes: PERRLA. EOMI. Conjunctiva and sclera normal. Eyelids normal. ENT: TM's Normal. Pharynx normal. Uvula midline. Moist mucous membranes. No trismus noted. No drooling noted. No muffled voice noted. Neck: Normal inspection. Neck supple. FROM. No adenopathy. Thyroid Normal. No meningeal signs. No neck mass noted. CVS: Normal heart rate and rhythm. Heart sound normal. No murmurs noted. Pulses normal throughout. Respiratory: No respiratory distress. Painless inspiration. Breath sounds normal. No wheezes/rales/rhonchi noted. Chest nontender. No accessory muscle usage noted or decreased air movement noted. Abdomen: Soft, epigastric mild tenderness, no rebound tenderness, no guarding. Bowel sounds normal in all 4 quadrants. No distention noted. No organomegaly noted. No visible injury noted. Back: No CVA tenderness. Full range of motion noted. Skin: Skin warm and dry. Normal skin color. Normal skin turgor. No rashes/lesions/lacerations noted. Extremities: No lower extremity edema. Extremities exhibit normal range of motion. Extremities nontender. Neuro: Oriented X 3. Cranial nerve exam: II-XII are grossly intact No motor deficit. No sensory deficit. Reflexes normal. Course Reevaluation(s) Reevaluation #1: Intermittent epigastric pain that is relieved by burping, patient has no coughing or fever chest x-ray raising low suspicion for pneumonia which is unlikely, labs are unremarkable,-2 troponin making ACS extremely unlikely. No tachycardia, no tachypnea, no hypoxia pulmonary embolism is unfavorable diagnosis, GERD is likely diagnosis for this patient. Will discharge Time: 11:44 Medications Administered Discontinued Medications Generic Name Dose Route Start Last Admin Trade Name Freq PRN Reason Stop Dose Admin Al Hydroxide/Mg Hydroxide 30 ml 05/19/24 07:21 05/19/24 07:45 Magnesium Hydrox/Alum Hydrox 30 Ml Oral.Susp PO 05/19/24 07:22 30 ml ONCE ONE Administration Famotidine 20 mg 05/19/24 07:21 05/19/24 07:45 Famotidine/Pf 20 Mg/2 Ml Vial IVPUSH 05/19/24 07:22 20 mg ONCE ONE Administration Medical Decision Making Differential Diagnosis Differential Diagnoses: The differential diagnosis associated with the presentation includes (ACS, pneumonia, pneumothorax, pleural effusion, CHF, gastritis, GERD.) Admission/Observation Consideration of admission/observation: Escalation of care including admission/observation considered Lab Data MDM Lab Attestation statement: I reviewed the patient's lab results. 05/19/24 07:40 05/19/24 08:50 Labs: Lab Results 05/19/24 05/19/24 05/19/24 Range/Units 07:40 08:50 10:11 WBC 5.3 (4.8-10.8) X10*3/uL RBC 3.80 L (4.60-5.80) X10*6/uL Hgb 10.7 L (14.0-18.0) g/dl Hct 33.6 L (42.0-52.0) % MCV 88.4 (80.0-98.0) fL MCH 28.2 (27.0-33.0) pg MCHC 31.8 (31.0-36.0) g/dl RDW 14.9 (11.0-16.0) % Plt Count 339 (160-400) X10*3/uL MPV 8.9 L (9.4-12.4) fL Immature Gran % (Auto) 0.2 (0.0-0.4) % Neut % (Auto) 50.0 (45-73) % Lymph % (Auto) 45.6 H (20-40) % [place] % (Auto) 3.4 (2-11) % Eos % (Auto) 0.6 (0-4) % Baso % (Auto) 0.2 (0-2) % Lymph # (Auto) 2.4 (1.2-4.9) X10*3/uL [place] # (Auto) 0.2 (0.1-1.2) X10*3/uL Eos # (Auto) 0.0 (0.0-0.4) X10*3/uL Baso # (Auto) 0.0 (0.0-0.2) X10*3/uL Abs Immat Gran (auto) 0.01 (0.00-0.03) X10*3/uL Absolute Neuts (auto) 2.7 (2.0-8.3) x10*3/uL Absolute Nucleated RBC 0.000 (0.0-0.012) X10*3/uL Nucleated RBC % (auto) 0.0 (0.0-0.2) /100WBC Sodium 139 (135-145) mmol/L Potassium 3.8 (3.3-5.1) mmol/L Chloride 101 (96-108) mmol/L Carbon Dioxide 27 (22-29) mmol/L Anion Gap 15 (12-20) BUN 17 H (9-16) mg/dL Creatinine 0.84 (0.5-1.4) mg/dL Estim Creat Clear Calc 132.2 Estimated GFR > 60 POC Glucose 109 (60-115) mg/dL Random Glucose 114 (60-115) mg/dL Calcium 9.3 D (8.4-10.2) mg/dL Total Bilirubin 0.3 (0.0-1.0) mg/dL Direct Bilirubin 0.1 (0.0-0.5) mg/dL AST 32 (5-37) U/L ALT 62 H (0-40) U/L Alkaline Phosphatase 62 (39-117) U/L Troponin I High Sens 3.5 (<3.5-35.0) ng/L B-Natriuretic Peptide < 10 (<100) pg/mL Total Protein 7.7 (6.5-8.0) g/dL Albumin 3.9 (3.5-5.0) g/dL Lipase 21 (8-78) U/L Urine Color Urine Appearance Urine pH (5.0-9.0) Ur Specific [place] (1.005-1.025) Urine Protein (Neg-Trace) mg/dL Urine Glucose (UA) (Negative) mg/dL Urine Ketones (Negative) mg/dL Urine Blood (Negative) Urine Nitrite (Negative) Ur Leukocyte Esterase (Negative) 05/19/24 Range/Units 11:02 WBC (4.8-10.8) X10*3/uL RBC (4.60-5.80) X10*6/uL Hgb (14.0-18.0) g/dl Hct (42.0-52.0) % MCV (80.0-98.0) fL MCH (27.0-33.0) pg MCHC (31.0-36.0) g/dl RDW (11.0-16.0) % Plt Count (160-400) X10*3/uL MPV (9.4-12.4) fL Immature Gran % (Auto) (0.0-0.4) % Neut % (Auto) (45-73) % Lymph % (Auto) (20-40) % [place] % (Auto) (2-11) % Eos % (Auto) (0-4) % Baso % (Auto) (0-2) % Lymph # (Auto) (1.2-4.9) X10*3/uL [place] # (Auto) (0.1-1.2) X10*3/uL Eos # (Auto) (0.0-0.4) X10*3/uL Baso # (Auto) (0.0-0.2) X10*3/uL Abs Immat Gran (auto) (0.00-0.03) X10*3/uL Absolute Neuts (auto) (2.0-8.3) x10*3/uL Absolute Nucleated RBC (0.0-0.012) X10*3/uL Nucleated RBC % (auto) (0.0-0.2) /100WBC Sodium (135-145) mmol/L Potassium (3.3-5.1) mmol/L Chloride (96-108) mmol/L Carbon Dioxide (22-29) mmol/L Anion Gap (12-20) BUN (9-16) mg/dL Creatinine (0.5-1.4) mg/dL Estim Creat Clear Calc Estimated GFR POC Glucose (60-115) mg/dL Random Glucose (60-115) mg/dL Calcium (8.4-10.2) mg/dL Total Bilirubin (0.0-1.0) mg/dL Direct Bilirubin (0.0-0.5) mg/dL AST (5-37) U/L ALT (0-40) U/L Alkaline Phosphatase (39-117) U/L Troponin I High Sens 3.0 (<3.5-35.0) ng/L B-Natriuretic Peptide (<100) pg/mL Total Protein (6.5-8.0) g/dL Albumin (3.5-5.0) g/dL Lipase (8-78) U/L Urine Color Yellow Urine Appearance Clear Urine pH 6.0 (5.0-9.0) Ur Specific [place] 1.020 (1.005-1.025) Urine Protein Negative (Neg-Trace) mg/dL Urine Glucose (UA) Negative (Negative) mg/dL Urine Ketones Negative (Negative) mg/dL Urine Blood Negative (Negative) Urine Nitrite Negative (Negative) Ur Leukocyte Esterase Negative (Negative) Independent Interpretation I performed an independent interpretation of an: Plain X-Ray (chest:Portions of the exam are obscured by overlying material. There is bibasilar consolidation, possible pneumonia, scarring or subsegmental atelectasis Heart size is normal. No acute fracture.) Radiology Impression Discussion of test interpretation with radiology: I have reviewed the radiologist's reading. Discharge Plan Discharge Clinical Impression: Atypical chest pain, Chest pain due to GERD Patient Disposition: Home, Self-Care Instructions: Chest Pain (ED) Prescriptions: No Action Flonase Sensimist 27.5 mcg/actuation spray,suspension 2 spray intranasal DAILY Qty: 6.6 0RF Rx Instructions: into each nostril losartan-hydrochlorothiazide 100-25 mg tablet 1 tab PO DAILY diltiazem HCl 360 mg capsule,extended release 24hr 360 mg PO DAILY atorvastatin 40 mg tablet 40 mg PO DAILY losartan 100 mg tablet 100 mg PO DAILY metformin 1,000 mg tablet 1,000 mg PO BID Mekinist 2 mg tablet 2 mg PO DAILY omeprazole 20 mg capsule,delayed release(DR/EC) 20 mg PO DAILY amoxicillin 500 mg capsule 500 mg PO Q8H Qty: 30 0RF Referrals: Grecia Bonilla MD [Primary Care Provider] - Print Language: Georgian
[2024-05-19 07:45] LABS: MANUAL DIFF FLAG NO
[2024-05-19] MEDS: Famotidine/PF 20 MG/2 ML VIAL IVPUSH (07:45)
[2024-05-19] MEDS: Magnesium Hydrox/Alum Hydrox 30 ML ORAL.SUSP PO (07:45)
[2024-05-19 07:48] LABS: Basophils Percent Auto 0.2 % (0-2); Eosinophils Percent Auto 0.6 % (0-4); Hematocrit 33.6 % (42.0-52.0); Hemoglobin 10.7 g/dl (14.0-18.0); Imm Gran Abs Auto 0.01 X10*3/uL (0.00-0.03); Imm Gran Pct Auto 0.2 % (0.0-0.4); Lymphocytes Absolute Auto 2.4 X10*3/uL (1.2-4.9); Lymphocytes Percent Auto 45.6 % (20-40); Mean Corpuscular HGB Conc 31.8 g/dl (31.0-36.0); Mean Corpuscular Hemoglobin 28.2 pg (27.0-33.0); Mean Corpuscular Volume 88.4 fL (80.0-98.0); Mean Platelet Volume 8.9 fL (9.4-12.4); Monocytes Absolute Auto 0.2 X10*3/uL (0.1-1.2); Monocytes Percent Auto 3.4 % (2-11); Neutrophils Absolute Auto 2.7 x10*3/uL (2.0-8.3); Platelet Count 339 X10*3/uL (160-400); Red Cell Distribution Width 14.9 % (11.0-16.0); White Blood Count 5.3 X10*3/uL (4.8-10.8)
[2024-05-19 08:03] VITALS: BP 138/87; PULSE 84; RESP 16; TEMP 36.9; O2SAT 93
[2024-05-19 08:06] LABS: B Type Natriuretic Peptide < 10 pg/mL (<100); Troponin-I High Sensitivity 3.5 ng/L (<3.5-35.0)
[2024-05-19 09:14] LABS: Alanine Aminotransferase 62 U/L (0-40); Albumin Level 3.9 g/dL (3.5-5.0); Alkaline Phosphatase 62 U/L (39-117); Anion Gap 15 (12-20); Aspartate Amino Transferase 32 U/L (5-37); Bilirubin Direct 0.1 mg/dL (0.0-0.5); Bilirubin Total 0.3 mg/dL (0.0-1.0); Blood Urea Nitrogen 17 mg/dL (9-16); Calcium 9.3 mg/dL (8.4-10.2); Carbon Dioxide 27 mmol/L (22-29); Chloride 101 mmol/L (96-108); Creatinine Clr Calc Pharmacy 132.2; Estimated Glomerular Filt Rate > 60; Glucose Random 114 mg/dL (60-115); Lipase 21 U/L (8-78); Potassium 3.8 mmol/L (3.3-5.1); Sodium 139 mmol/L (135-145); Total Protein 7.7 g/dL (6.5-8.0)
[2024-05-19 10:28] VITALS: BP 175/111; PULSE 84; RESP 14; O2SAT 96
[2024-05-19 10:30] LABS: Glucose, Whole Blood 109 mg/dL (60-115)
--- NOTE | 2024-05-19 10:44 | PC.NURSE ---
Pt comes to ED today from home with c/o chest pain/pressure 2/10 on pain scale. Pt is A&Ox3, VSS, afebrile. Skin is warm and dry Breaths and speech are unlabored. 22g to L hand placed. Blood labs drawn, EKG completed. At approx. 10:00a, Pt reports he is diabetic and needs something to eat and would like to leave the hospital. Pt advised that he is due for a 2nd Troponin level at 1040 and educated on the significance of this blood work. Pt also informed that this RN will supply him with some small snack (subject to availability) and will have POC taken. This RN provides Pt with 2 cheese sticks, 2 packs of PB, several packets of crackers and offers to make Pt hot oatmeal. Pt states he will not eat any of these items at this time. Several minuted later, radiation oncology manager informs this RN that Pt stated he is not willing to complete any additional blood work. ED provider to bedside to discuss with plan with Pt. Per ED provider, Pt is willing to completed blood work and will purchase food for Pt from the cafeteria. F/u Troponin being drawn now--results pending. Dispo pending.
[2024-05-19 11:11] LABS: Appearance Urine Clear; Color Urine Yellow; Glucose Urine UA Negative (Negative); Leukocyte Esterase Urine Negative (Negative); Nitrite Urine Negative (Negative); Urine Blood Negative (Negative); Urine Ketones Negative (Negative); Urine Protein Negative (Neg-Trace)
[2024-05-19 11:52] VITALS: BP 00/00; PULSE 0; RESP 0; TEMP -17.7; TEMP 0; O2SAT 0
== END 2024-05-19 11:53 | disposition home or self-care (01) ==
PROVIDERS: Emergency Provider Emergency Medicine; PCP Internal Medicine
DX: R07.89 Other chest pain (principal); K21.9 Gastro-esophageal reflux disease without esophagitis; E11.9 Type 2 diabetes mellitus without complications; I10 Essential (primary) hypertension; E78.5 Hyperlipidemia, unspecified; I48.0 Paroxysmal atrial fibrillation; C34.90 Malignant neoplasm of unspecified part of unspecified bronchus or lung; Z92.21 Personal history of antineoplastic chemotherapy; Z79.02 Long term (current) use of antithrombotics/antiplatelets; Z79.84 Long term (current) use of oral hypoglycemic drugs; Z79.899 Other long term (current) drug therapy
CPT/HCPCS: 36415; 71045; 80048; 80076; 81003; 82947; 83690; 83880; 84484; 85025; 93005; 96374; 99284; 99285

== ENCOUNTER → 2024-05-19 06:57 | Outpatient (BNV) | payer MEDICARE, MEDICAID, SELFPAY | PROVIDERS: Emergency Provider Emergency Medicine; PCP Internal Medicine; Visit Provider Internal Medicine Cardiovascular Disease | DX: R94.31 Abnormal electrocardiogram [ECG] [EKG] (principal); R07.9 Chest pain, unspecified | CPT/HCPCS: 93010 ==

== ENCOUNTER → 2024-05-19 07:13 | Outpatient (BNV) | payer MEDICARE, MEDICAID, SELFPAY | PROVIDERS: Emergency Provider Emergency Medicine; PCP Internal Medicine; Visit Provider Specialist | DX: R07.9 Chest pain, unspecified (principal) | CPT/HCPCS: 71045 ==

== ENCOUNTER 2024-05-30 10:26 | Emergency (ER) | payer MEDICARE, MEDICAID, SELFPAY ==
[2024-05-30 10:35] VITALS: BP 134/83; PULSE 85; RESP 12; TEMP 36.8; O2SAT 98; BMI 35.3
--- OUTSIDE RECORDS SUMMARY | 2024-05-30 15:24 | XMS_ITS | Clinical Summary ---
Author Organization [facility] Address [address] [place] [address] Care Team Providers Care Air Conditioning Manager Name Role Phone Grecia Bonilla MD Primary Care Provider [phone] Allergies No known active allergies Medications acetaminophen [...] Influencers of Health Screening 01/31/2022 Influenza Vaccine (Season Ended) 2024 RSV Immunization Adult Patie nts (1 - 1-dose 75+ series) 02/14/2040 Hepatitis [...] Recently Relevant to Health Maintenance Care Teams Air Conditioning Manager Relationship Specialty Start Date End Date Grecia Bonilla MD [address] [place] [address] [place] [id number] PCP - General 05/06/23
--- OUTSIDE RECORDS SUMMARY | 2024-05-30 15:24 | XMS_ITS | Clinical Summary ---
Author Organization [facility] Facility Address [address] [place] [id number] Care Team Providers Care Lobsterman Name Role Phone Unavailable Primary Care Provider [...] Diabetes: Visual Foot Exam 06/04/2022 Influenza Vaccine (Season Ended) 2024 Pneumococcal Vaccine: Pediat rics (0 to 5 Years) and At-Risk Patients (6 to 64 Years) Aged Out No longer eligible b ased on patient's age to complete this topic Insurance [facility] MEDICAID [facility] MEDICAID
--- OUTSIDE RECORDS SUMMARY | 2024-05-30 15:24 | XMS_ITS | Data Portability ---
Author Organization [facility], , [facility] Address [address] [place] [address] Assessment Encounter Date Assessment Date Assessment LastModified [...] recorded. Lab triglycer ides, serum 2016 017 [facility], [address] [place] [address], [address], 7 10:15:36 urinalysi s, dipstick, auto 2016 017 [facility], [address] [place] [address], [address], 7 12:23:18 cytology, non-gynec ological, unspecifi ed specimen 2016 017 [facility], [address] [place] [address], [address], 7 11:23:15 PSA, serum or plasma 2016 017 [facility], [address] [place] [address], [address], 7 11:07:04 Referral None recorded. Procedures None recorded. Surgeries None recorded. Imaging None recorded. Medication Orders ammonium lactate 12 % topical cream 2016 017 [facility]FACE [id number], [address] [place], [address], 7 14:15:40 omeprazol e 20 mg capsule,d elayed release 2016 017 INTERFACE [id number], [address] [place], [address], 7 14:15:42 sumatript an 100 mg tablet 2016 017 INTERFACE [facility], [address] [place], [address], 7 14:15:41 diltiazem CD 180 mg capsule,e xtended release 24 hr 2016 017 INTERFACE [id number], [address] [place] [address], [address], 7 14:15:40 Patient TargetsNo targets recorded. Patient Instructions Encounter Date Encounter Id Patient Instructions Last Modified By Organization Details Last Modified Time 08/04/2016 [id number] Pt refused RTC o n Tuesday. Will call pt to decrease PF in next a couple of day if better. Not available 08/04/2016 16:57:50 08/10/2016 [id number] Eye looks great Taper drops as directed Return with any new symptoms or recurrence Continue with routine eye exams jmerlin Not available 08/10/2016 14:37:02 08/30/2016 [id number] deciding about using medicines to quit smoking [...] sponsor}}My Health To Do List {{go to [place] or call si gn up for esther text 2 quit or other stop smoking esther contact [employer] [place]}} {{go to [place] or call si gn up for esther text 2 quit or other stop smoking esther contact [facility]}} {{go to [place] or call si gn up for esther text 2 quit or other stop smoking esther contact [facility]}} Not available 08/30/2016 13:43:39 04/25/2017 [id number] high blood pressure: care instructions [email or web address] Not available 04/25/2017 16:40:30 learning about high blood pressure tfurcolo Not available 04/25/2017 16:40:30 [place] moved to [place]- harder to get here. given name of Dr. Cindi Mata @ [facility] tfurcolo Not available 04/25/2017 16:42:48 05/26/2017 [id number] Glasses Rx was given. No retinopathy OD and OS. Monitor BG and A1C. Not available 05/26/2017 16:31:29 Reason for Referral None Reported. Results Created Date Observation Date Name Description Value Unit Range Abnormal Flag Note LastModifiedBy Organization Detail LastModifiedTime 08/11/19 17 08/11/2016 BMP, serum or plasm a glucose 99 mg/dL 70-100 Not Available [address], [address], 08/11/2016 09:31:23 08/11/19 17 08/11/2016 BMP, serum or plasm a BUN 15 mg/dL 7-18 Not Available [address], [address], 08/11/2016 09:31:23 08/11/19 17 08/11/2016 BMP, serum or plasm a creatinine 1.2 mg/dL 0.8-1. 3 Not Available [address], [address], 08/11/2016 09:31:23 08/11/19 17 08/11/2016 BMP, serum or plasm a B/C 12.5 ratio Not Available [address], [address], 08/11/2016 09:31:23 08/11/19 17 08/11/2016 BMP, serum or plasm a GFR -non 67.8 mL/mi n Recom fracisco d GFR by the Natio nal Kidne y Found ation >60 mL/mi n/1.7 3m2 - Araceli l <60 mL/mi n/1.7 3m2 - Chron ic Kidne y Disea se <15 mL/mi n/1.7 3m2 - Kidne y Failu re Not Available [address], [address], 08/11/2016 09:31:23 08/11/19 17 08/11/2016 BMP, serum or plasm a GFR - if 82.1 mL/mi n For Afric an Ameri can patie nts: Resul ts Multi plied by 1.21 Not Available [address], [address], 08/11/2016 09:31:23 08/11/19 17 08/11/2016 BMP, serum or plasm a sodium 142 mmol/ L 136-14 5 Not Available [address], [address], 08/11/2016 09:31:23 08/11/19 17 08/11/2016 BMP, serum or plasm a potassium 4.5 mmol/ L 3.5-5. 1 Not Available [address], [address], 08/11/2016 09:31:23 08/11/19 17 08/11/2016 BMP, serum or plasm a chloride 103 mmol/ L 96-107 Not Available [address], [address], 08/11/2016 09:31:23 08/11/19 17 08/11/2016 BMP, serum or plasm a anion gap 13.2 5.0-15 .0 Not Available [address], [address], 08/11/2016 09:31:23 08/11/1908/11/2016 BMP, serum or plasm a CO2 26 mmol/ L 21-32 Not Available [address], [address], 08/11/2016 09:31:23 08/11/1908/11/2016 BMP, serum or plasm a calcium 9.6 mg/dL 8.5-10 .3 Not Available [address], [address], 08/11/2016 09:31:23 08/11/1908/11/2016 lipid panel , serum cholesterol 212 mg/dL <200 mg/dl Maurice able 200-2 39 mg/dl Borde rline High >240 mg/dl High Not Available [address], [address], 08/11/2016 09:31:23 08/11/1908/11/2016 lipid panel , serum triglyceride s 431 mg/dL high LIPM= Speci men Moder ately Lipem ic. Chem Resul ts may be effec kit. <150 mg/dL Araceli l 150-1 99 mg/dL Borde rline High 200-4 99 mg/dL High >500 mg/dL Very High Not Available [address], [address], 08/11/2016 09:31:23 08/11/1908/11/2016 lipid panel , serum direct HDL 30 mg/dL Not Available [address] [place], [address], 08/11/2016 09:31:23 08/11/19 17 08/11/2016 LDL, direc [...] r is not minoo anurag. Not Available [facility] [address] [place], [address], 08/11/2016 09:31:24 10/16/19 17 10/15/2016 urina lysis , dipst ick, auto color YELLOW yellow normal Not Available [facility] [address], [address], 10/15/2016 15:18:59 10/16/1910/15/2016 urina lysis , dipst ick, auto appearance CLEAR clear normal Not Available [facility] [place] [facility] [address], [address], 10/15/2016 15:18:59 10/16/1910/15/2016 urina lysis , dipst ick, auto specific gravity 1.020 1.001- 1.035 normal Not Available [facility] [address], [address], 10/15/2016 15:18:59 10/16/19 17 10/15/2016 urina lysis , dipst ick, auto pH 5.5 5.0-8. 0 normal Not Available [facility] [place] [facility] [address], [place], [address], 10/15/2016 15:18:59 10/16/19 17 10/15/2016 urina lysis , dipst ick, auto glucose NEGATI VE negati ve normal Not Available [facility] [place] [facility] [address], [place], [address], 10/15/2016 15:18:59 10/16/19 17 10/15/2016 urina lysis , dipst ick, auto bilirubin NEGATI VE negati ve normal Not Available [facility] [place] [facility] [address], [place], [address], 10/15/2016 15:18:59 10/16/19 17 10/15/2016 urina lysis , dipst ick, auto ketones NEGATI VE negati ve normal Not Available [facility] [place] [facility] [address], [place], [address], 10/15/2016 15:18:59 10/16/19 17 10/15/2016 urina lysis , dipst ick, auto occult blood TRACE negati ve abnormal Not Available [facility] [place] [facility] [address], [place], [address], 10/15/2016 15:18:59 10/16/19 17 10/15/2016 urina lysis , dipst ick, auto protein NEGATI VE negati ve normal Not Available [facility] [place] [facility] [address], [place], [address], 10/15/2016 15:18:59 10/16/19 17 10/15/2016 urina lysis , dipst ick, auto nitrite NEGATI VE negati ve normal Not Available [facility] [place] [facility] [address], [place], [address], 10/15/2016 15:18:59 10/16/19 17 10/15/2016 urina lysis , dipst ick, auto leukocyte esterase NEGATI VE negati ve normal Not Available [facility] [place] [facility] [address] Jarred [place]ero, [place], [address], 10/15/2016 15:18:59 10/16/19 17 10/15/2016 urina lysis , dipst ick, auto WBC 0-5 /hpf < or = 5 normal Not Available [facility] [place] [facility] [address] [place], [place], [address], 10/15/2016 15:18:59 10/16/19 17 10/15/2016 urina lysis , dipst ick, auto RBC 0-2 /hpf < or = 2 normal Not Available [facility] [place] [facility] [address] [place], [place], [address], 10/15/2016 15:18:59 10/16/19 17 10/15/2016 urina lysis , dipst ick, auto Unknown Analyte See Below This urine was deb zed for the prese nce of WBC, RBC, bacte álvaro, casts , and other forme d eleme nts. Only those eleme nts seen were repor kit. Not Available [facility] [place] [facility] [address] [place], [place], [address], 10/15/2016 15:18:59 10/16/19 17 10/15/2016 cultu re, urine reflexive urine culture NO CULTUR E INDICA KIT Not Available [facility] [place] [facility] [address] [place], [place], [address], 10/15/2016 15:19:00 10/16/19 17 10/18/2016 trigl yceri sidra, serum triglyceride s 184 mg/dL <150 mg/dL Araceli l 150-1 99 mg/dL Borde rline High 200-4 99 mg/dL High >500 mg/dL Very High Not Available [address], [address], 10/18/2016 10:15:35 10/16/19 17 10/18/2016 PSA, serum or plasm a PSA 0.62 NG/mL 0.00-4 .00 Not Available [address], [address], 10/18/2016 11:07:04 10/16/19 17 10/19/2016 cytol ogy screener normal WAC, CT( CP) CT scree zeke locat ion: [facility] [address], [place] [address] Not Available [facility] [address], [place], [address], 10/19/2016 11:23:15 10/16/19 17 10/19/2016 cytol ogy pathologist normal Mike Mccloud M.D., Board Certi fied in Anato reno and Clini malik Patho logy (elec troni c signa ture) Consu lting Patho logis t [facility] ia Patho logy [address] [facility] [place] [address] [phone] Not Available [facility] [place] [facility] [address], [place], [address], 10/19/2016 11:23:15 10/16/19 17 10/19/2016 cytol ogy A source normal Urine Not Available [facility] [address], [place], [address], 10/19/2016 11:23:15 10/16/19 17 10/19/2016 cytol ogy A procedure Cytolo gy Not Available [facility] [address], [place], [address], 10/19/2016 11:23:15 10/16/19 17 10/19/2016 cytol ogy [...] [place], [place] [id number] Labor atory Direc tor: JENNY SÁNCHEZ MD Not Available [facility] [place] [facility] [address], [place], [address], 10/19/2016 11:23:15 10/16/19 17 10/19/2016 cytol ogy A diagnosis Negat ricardo for malig nant cells . Not Available [facility] [place] [facility] [address], [place], [address], 10/19/2016 11:23:15 04/19/19 18 04/19/2017 BMP, serum or plasm a glucose 112 mg/dL 70-100 high Not Available [address], [address], 04/19/2017 12:03:36 04/19/19 18 04/19/2017 BMP, serum or plasm a BUN 14 mg/dL 7-18 Not Available [address], [address], 04/19/2017 12:03:36 04/19/19 18 04/19/2017 BMP, serum or plasm a creatinine 1.1 mg/dL 0.8-1. 3 Not Available [address], [address], 04/19/2017 12:03:36 04/19/19 18 04/19/2017 BMP, serum or plasm a B/C 12.7 ratio Not Available [address], [address], 04/19/2017 12:03:36 04/19/19 18 04/19/2017 BMP, serum or plasm a GFR -non 74.7 mL/mi n Recom fracisco d GFR by the Natio nal Kidne y Found ation >60 mL/mi n/1.7 3m2 - Araceli l <60 mL/mi n/1.7 3m2 - Chron ic Kidne y Disea se <15 mL/mi n/1.7 3m2 - Kidne y Failu re Not Available [address], [address], 04/19/2017 12:03:36 04/19/19 18 04/19/2017 BMP, serum or plasm a GFR - if 90.4 mL/mi n For Afric an Ameri can patie nts: Resul ts Multi plied by 1.21 Not Available [address], [address], 04/19/2017 12:03:36 04/19/19 18 04/19/2017 BMP, serum or plasm a sodium 142 mmol/ L 136-14 5 Not Available [address], [address], 04/19/2017 12:03:36 04/19/19 18 04/19/2017 BMP, serum or plasm a potassium 4.1 mmol/ L 3.5-5. 1 Not Available [address], [address], 04/19/2017 12:03:36 04/19/19 18 04/19/2017 BMP, serum or plasm a chloride 103 mmol/ L 96-107 Not Available [address], [address], 04/19/2017 12:03:36 04/19/19 18 04/19/2017 BMP, serum or plasm a anion gap 13.2 5.0-15 .0 Not Available [address], [address], 04/19/2017 12:03:36 04/19/19 18 04/19/2017 BMP, serum or plasm a CO2 26 mmol/ L 21-32 Not Available [address], [address], 04/19/2017 12:03:36 04/19/19 18 04/19/2017 BMP, serum or plasm a calcium 9.7 mg/dL 8.5-10 .3 Not Available [address], [address], 04/19/2017 12:03:36 04/19/19 18 04/19/2017 lipid panel , serum cholesterol 259 mg/dL LIPS= Speci men Sligh tly Lipem ic. Chem Resul ts may be effec kit. <200 mg/dl Maurice able 200-2 39 mg/dl Borde rline High >240 mg/dl High Not Available [address], [address], 04/19/2017 12:20:41 04/19/19 18 04/19/2017 lipid panel , serum triglyceride s 140 mg/dL <150 mg/dL Araceli l 150-1 99 mg/dL Borde rline High 200-4 99 mg/dL High >500 mg/dL Very High Not Available [address], [address], 04/19/2017 12:20:41 04/19/19 18 04/19/2017 lipid panel , serum direct HDL 41 mg/dL Not Available [address], [address], 04/19/2017 12:20:41 04/19/19 18 04/19/2017 LDL, direc [...] with 0-1 risk facto r is not cesiliamarianna osborn. Not Available [address], [address], 04/19/2017 12:20:42 Result Notes None recorded. Problems Name Problem SNOMED Code Status Onset Date Resolution Date Notes Provider Name and Address Organization Details Recorded Time Essential hypertension 12233266 Active Renee Gates, [employer] [address] [place] [address], [address], [facility] 6 14:24:11 Tobacco user 890292979 Active Renee Gates NP [address] [place] [address], [phone], [facility] 6 14:15:00 Benign essential hypertension 4475649 Active Renee Gates, LAVERNE [address] [place] [address], [address], [facility] 6 14:15:00 Problem Notes None recorded. Procedures Surgical History Date Name Laterality Status Provider Name and Address Organization Details Recorded Time 05/27/19 18 Refraction completed Ney Rivero [facility] 05/26/2017 16:00:22 04/25/19 18 Smoking cessation counseling completed Radha Berry D.O. [address] [place] [address], [address], [facility] 04/25/2017 16:41:04 08/31/19 17 Smoking cessation counseling completed Tarah Matthews LPN [facility] 08/30/2016 13:43:39 08/31/19 17 Carbon Monoxide Testing completed Tarah Matthews LPN [facility] 08/30/2016 13:43:39 04/19/19 17 Smoking cessation counseling completed Sandra Mathews Amina [facility] 04/19/2016 11:56:11 04/19/19 17 Carbon Monoxide Testing completed Sandra Mathews Amina [facility] 04/19/2016 11:58:02 10/13/19 16 Smoking cessation counseling completed Bridget Denny LPN [facility] 10/13/2015 15:20:30 10/13/19 16 Carbon Monoxide Testing completed Bridget Denny LPN [facility] 10/13/2015 15:36:06 08/25/19 16 Meek - Colonoscopy completed Fortino Eden MD [address] [place] [address], [phone] 08/25/2015 11:58:24 06/01/19 15 Smoking cessation counseling completed Bridget aCntu LPN [facility] 05/31/2014 16:26:02 03/22/19 15 Smoking cessation counseling completed Miley Urbano [facility] 03/22/2014 16:12:48 01/31/20 14 Smoking cessation counseling completed Bridget Cantu MACHINE TRACER [facility] 01/30/2014 11:14:07 07/17/19 14 Smoking cessation counseling completed Bridget Cantu MACHINE TRACER [facility] 07/16/2013 08:24:22 05/03/19 14 Smoking cessation counseling completed Bridget Cantu MACHINE TRACER [facility] 05/02/2013 08:50:33 12/15/19 13 Smoking cessation counseling completed Bridget Cantu MACHINE TRACER [facility] 12/14/2012 09:32:08 Imaging Results None recorded. Procedure Notes None recorded. Medical Equipment None Reported. Allergies Allergen ID Allergen Name Allergen Category Reaction Reaction Severity Criticality Documentation Date Start Date Code Code System Note Provider Name and Address Organization Details Recorded Time 998492 lisinopri l medicatio n nausea Not available Not available 07/25/2012 31605 RxNorm MIRIAM Kerr [facility] 3 14:29:59 Medications Name Sig Start Date [...] Updated DateTime 7 194.31 cm 31 kg/m2 697026. 83 g 64 /min 140 mm[Hg] 80 mm[Hg] Tarah Matthews LPN [facility] 7 13:54:29 Date Recorded Body height Body mass index (BMI) Body weight Heart rate Systolic blood pressure Diastolic blood pressure Provider Name and Address Organization Details Last Updated DateTime 8 194.31 cm 33.6 kg/m2 049161. 86 g 68 /min 138 mm[Hg] 68 mm[Hg] GRECIA Araujo [facility] 8 16:10:12 Social History Question Answer Notes LastModified by Organizat ion Details LastModified Time Tobacco Smoking Status Current Every Day Smoker 1/3 pack daily MIRIAM Kahn, [facility] 08/30/2016 13:50:47 What Is Your Level Of [...] unspecified formulation 12/01/2011 completed Caroline Calhoun LPN [facility] 08/28/2013 12:04:40 Past Encounters Encounter ID Performer Location Encounter Start Date Encounter Closed Date Diagnosis/Indication Diagnosis SNOMED-CT Code Diagnosis ICD10 Code Diagnosis Note [id number] Luh Harrison LPN [facility], OFFICE [address] [place] [address] 07/25/2012 14:13:58 07/25/2012 15:13:11 [id number] Luh Harrison LPN [facility], OFFICE [address] [place] [address] 12/14/2012 09:18:35 12/14/2012 10:00:05 Tobacco user 216149633 will ing to quit. discussed treatment options- side effects of meds. Essential hypertension 77815850 did blood work this am BP meds working well, no side effects Dermal mycosis 01799904 [id number] Luh Harrison LPN Podiatry, [facility] [address] [place] [address] 01/02/2013 13:30:26 01/04/2013 16:24:54 Disorder of nail 72445353 Hypertroph ic condition of skin 02950753 Tinea pedis 1352821 [id number] [facility], OFFICE [address] [place] [address] 04/10/2013 15:07:03 04/11/2013 09:20:14 Abdominal pain 97885691 Intermitte nt abdominal pain Unclear etiology Will check labs below. Will start ranitidine 150 mg bid Keep bland, low residue diet. Keep well hydrated Call/go to ER with wrosening pain, fever, vomitting F/U dependent on results below. [id number] Melly Nguyen [facility], OFFICE [address] [place] [address] 05/02/2013 08:38:30 05/03/2013 08:20:44 Tobacco user 433757450 advised to quit- will helpo with gastritis Gastritis 4158416 comple kit h-pylori tx. ok to contineu omeprazole ONCE daily for additional 6 weeks if no continued improvemen t, will send for endoscopy Essential hypertension 63246257 at goal as <160/90 [id number] Carmen Zendejas , [facility], [address] [facility] [address] [place] [address] 06/25/2013 11:26:21 06/25/2013 13:21:28 Colitis, enteritis and gastroenteritis presumed infectious 461683778 Most acute gastroente ritis ( stomach flu [...] diarrhea does not improve in 2-3 days. [id number] Marialuisa Ba [facility], OFFICE [address] [place] [address] 07/16/2013 07:52:22 07/16/2013 09:07:11 Benign essential hypertension 6472522 Blood pressure at goal as <160/90 recommende d starting baby aspirin daily Tobacco user 779849734 w ill retry chantix. last time he had a stomach bug and medicine worsened his symtpoms Adult heal th examination 562611088 see Risk Assessment and Lifestyle Change Counseling section above Counseling [id number] Gastritis 1564793 [id number] [facility], OFFICE [address] [place] [address] 01/30/2014 10:31:30 02/01/2014 08:53:49 Tobacco user 471594791 Chantix BID makes him tired, advised once daily chantix Chest pain 61788834 [id number] Renee Gates NP [facility], OFFICE [address] [place] [address] 03/22/2014 16:07:32 03/22/2014 16:27:15 Tobacco user 924684524 Will d/c Chantix Will try nicotine replacemen t patches 21 mcg qd/ reviewed how to use. Migraine 28130661 Hx of cluster headaches Will see if any relief with sumatripta n- subq is recommende d for cluster but pt declines. Also declines nasal. Will see if any relief with oral. F/U prn [id number] Bridget Cantu LPN [facility], OFFICE [address] [place] [address] 04/15/2014 14:45:26 04/15/2014 15:18:07 Chronic cluster headache 863705310 [id number] Yasmine Urban [facility], OFFICE [address] [place] [address] 05/31/2014 16:08:50 06/06/2014 09:14:54 Essential hypertension 04255711 at goal as <150/90 Tobacco user 700147339 w ill go back on the patches Dermal mycosis 42071305 [id number] Renee Gates NP [facility], OFFICE [address] [place] [address] 04/23/2015 14:23:45 04/23/2015 14:58:30 Adult health examination 540826928 Z00.00 Screening for disorder 768906671 Z11.59 Screening for malignant neoplasm of colon 318018073 Z12.11 Referral for a DIRECT booked colonoscop y. This patient is a healthy ASA Class 1 or 2 patient (only mild systemic disease), or a STABLE, well controlled insulin dependent diabetic. They do not have serious cardiac disease ie MN/angiopl asty within 1 year, symptomati c CHF; renal failure with CKD 4 or 5; take Coumadin, Plavix, Aggrenox, etc; nor take chronic narcotics. [Patients who take chronic narcotics should be referred to [facility] for a propofol procedure due to possible inability to sedate adequately with conscious sedation.] Benign ess ential hypertension 2546550 I10 BP not at goal will start cardizem 180 mg qd c/w hctz and losartan rto 4 weeks for f/u Nicotine dependence 5629 4008 F17.200 discussed smoking cessation has not been consistent with patches will try patches and chantix which he did previously Shoulder pain 83658386 M 25.512 L shoulder likely bicep tendinitis advised ice regularly, given handout with exercise. [id number] Renee Gates NP , [facility], OFFICE [address] [place] [address] 05/07/2015 13:58:09 05/07/2015 14:24:35 Acute upper respiratory infection 14555263 J06.9 Educated patient that URI is a viral illness of the upper airways. It is not bacterial and does not benefit from antibiotic s. Average duration of URI is 7-10 days in 2-4 weeks. Advised mucinex bid, Afrin, fluids rest Essential hypertension 96206070 I10 at goal with addition of cardizem tolerating well will c/w medication [id number] Mauricio Larry DPM Podiatry, [facility] [address] [place] [address] 07/11/2015 12:30:35 07/11/2015 13:02:01 Acquired keratoderma 849719521 L85.1 [id number] Fortino Eden MD ASP, [facility] [address] [place] [address] 08/25/2015 09:29:09 08/25/2015 13:50:25 [id number] Radha Berry D.O. , [facility], OFFICE [address] [place] [address] 10/13/2015 14:49:37 10/17/2015 09:44:01 Benign essential hypertension 4089997 I10 Blood pressure at goal Cigarette smoker 8906269 7 F17.210 sleepy when takes chantix in amagrees to take at bedtime only Tobacco user 639541769 Z 72.0 Acquired keratoderma 400 718784 L85.1 Heart murmur 42798065 R0 1.1 RUSB- suspect Aortic stenosis- discussed aggressive tx with HTN meds and quitting smoking [id number] Mariana Augustin MD FP, [facility], OFFICE [address] [place] [id number] 04/19/2016 11:45:02 04/19/2016 12:29:15 Cigarette smoker 54131847 F17.210 Nicotine lozenges and verbal counseling done today. Acute otitis media 98108 03 H66.93 You have ear infections , [...] a month we should take a look. [id number] Renee Gates NP , [facility], OFFICE [address] [place] [address] 06/30/2016 11:04:55 06/30/2016 11:46:31 Cluster headache 662517207 G44.009 dx 2009cluste rs more severe, frequent- usu last monthsneve r tried o2 tx- will try to arrangewil l see if any improved response with nasalrefer ral to [facility] in 2 months Injury of finger 9783512 8 S69.81XA doing wellno infection Tobacco user [id number] Z 72.0 declined conot ready to quitdiscus sed importance will c/t address Benign ess ential hypertension 4314783 I10 BP at goalc/w meds [id number] Darrian Alfredo, OD [facility], [address] [address] 08/03/2016 13:50:25 08/03/2016 16:10:45 Acute iritis 67674166 H20.249 [id number] Concetta Mansfield, OD [facility], [address] [address] 08/04/2016 09:54:19 08/05/2016 09:36:12 Acute iritis 07612063 H20.011 C/o of PF and cyclopento late [id number] Darrian Alfredo, SHARA [facility], [facility] [address] [place] [address] 08/10/2016 14:18:26 08/10/2016 14:47:16 Acute iritis 63911890 H20.011 ResolvedTa per PredForte as directedRe turn if starts up again [id number] Renee Gates NP , [facility], [place]ICE [address] [place] [address] 08/30/2016 13:15:00 08/30/2016 14:13:20 Adult health examination 830487236 Z00.00 see Risk Assessment and Lifestyle Change Counseling section aboveColon oscopy: 08/25/15 Counseling [id number] Z71 .9 Benign ess ential hypertension 2594266 I10 Blood pressure at goal of < 140/90will work on diet- low saltexerci se Cigarette smoker 2364842 7 F17.210 discussed importance of smoking cessationc ongratulat ed on reductionw ill c/t address cessation Tobacco user 703655175 Z 72.0 discussed importance of smoking cessation congratula kit on reduction will c/t address cessation Acquired keratoderma 400 414080 L85.1 RF Gastroesop hageal reflux disease 444312661 K21.9 stable on omeprazole RF Migraine 41413448 G43.90 9 Hx of cluster headachesh as upcoming neuro consult 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 , [facility], [address]ICE [address] [place] [address] 04/25/2017 15:38:16 04/25/2017 16:55:35 Benign essential hypertension 2431495 I10 Blood pressure at goal Screening for disorder 528174605 Z11.59 Cluster headache 0176706 [address] martinez recommende d going on verapamil and dosing up every 2 weeks - 120 mg, then 240 mg, then 360 mg. he still wants to think about this. if decides, will d/c diltiazem Folliculitis 92403737 L7 3.9 axiallary- discussed wearing looser shirts [id number] Concetta Mansfield, OD [facility], [address] [address] 05/26/2017 15:37:47 05/27/2017 07:07:02 Presbyopia 35056813 H52.4 Myopic astigmatism 74118 4005 H52.209 Type 2 camila betes mellitus without complication 266166414 E11.9 Health Concerns Section Related Observation LastModified by Organization Detai ls LastModified Time None Recorded Concern Status LastModified by Organization Details LastModified Time None Recorded Advance Directives Directive None Recorded Payers Encounter Date Sequence Insurance Name Policy Number Policy Guillen Covered Member ID Guillen Member ID Guarantor Name 08/04/2016 1 [facility] [employer] (MEDICAID HMO) [id number] Jesse Patrick [id number] Jesse Patrick 08/10/2016 1 [facility] [employer] (MEDICAID HMO) [id number] Jesse Patrick [id number] Jesse Patrick 08/30/2016 1 [facility] [employer] (MEDICAID HMO) [id number] Jesse Patrick [id number] Jesse Patrick 04/25/2017 1 [facility] [employer] (MEDICAID HMO) [id number] Jesse Patrick [id number] Jesse Patrick 05/26/2017 1 [facility] [employer] (MEDICAID HMO) [id number] Jesse Patrick [id number] Jesse Patrick Notes Date Note Type Note Provider Name and Address Organization Details Recorded Time 7 text/html Comprehensive Eye ExamReported bypatient.Quality:year exam (F/U); no blurred vision Location:bilateral Context:currently wears glasses Modifying factors:wears glasses for distance and near Associated Symptoms:no itching; no floaters; no dryness;redness Concetta Mansfield, SHARA [address] [place] [address], [phone], [facility] 08/04/2016 16:58:42 7 text/html Feels 100% better-no pain, irritation, light sensitivity. Vision is fine. Using PF 3x/day for past two days.No discharge. Darrian Alfredo OD [address] [facility], [place], [address], [facility] 08/10/2016 14:37:34 7 text/html Physical Exam/MaleReported bypatient.PHAPatient [...] No decline in exercise capacity; No snoringa/vmg-smoking [id number] bypatient.ImportanceOn a scale of 1-10 with 1 [...] able to smoke much Renee Gates NP [address] [place] [address], [phone], [facility] 09/01/2016 20:15:10 8 text/html VMG HypertensionReported bypatient.Control:Treated [...] decline in exercise capacity; No snoringNotes: a/vmg-smoking [id number] bypatient.Physiological Dependence/Health RiskCurrently smoking 20 cigarettes per day Medication AssessmentHas used Chantix in the past (made him sleepy) Radha Berry D.O. [address] [place] [address], [phone], [facility] 04/25/2017 16:43:20 8 text/html Comprehensive Eye ExamReported bypatient.Quality:2 year exam; no blurred vision Location:bilateral Context:currently wears glasses Modifying factors:wears glasses for distance and near Associated Symptoms:no redness; no itching; no floaters; no dryness Concetta Mansfield, OD [address] [place], [address], [facility] 05/26/2017 16:31:57
--- OUTSIDE RECORDS SUMMARY | 2024-05-30 15:24 | XMS_ITS | Clinical Summary ---
Author Organization [facility] Address [address] [place] [address] Care Team Providers Care Pigeon Fancier Name Role Phone Unavailable Primary Care Provider [...]
== END 2024-05-30 13:18 | disposition left against medical advice (07) ==
PROVIDERS: Emergency Provider Emergency Medicine; PCP Internal Medicine
DX: M79.645 Pain in left finger(s) (principal)
CPT/HCPCS: 99281

== ENCOUNTER 2024-07-20 11:19 | Outpatient (REF) | payer MEDICARE, MEDICAID, SELFPAY ==
[2024-07-20 17:36] LABS: Influenza A PCR NEGATIVE (Negative); Influenza B PCR NEGATIVE (Negative); Resp Syncy Virus RNA Qual PCR NEGATIVE (Negative); SARS COV2 PCR INHOUSE NEGATIVE (Negative)
== END 2024-07-20 11:20 | disposition home or self-care (01) ==
LOC: HO.LAB 11:19
PROVIDERS: PCP Internal Medicine; Visit Provider Nurse Practitioner Family
DX: J06.9 Acute upper respiratory infection, unspecified (principal); J30.1 Allergic rhinitis due to pollen
CPT/HCPCS: 0241U

== ENCOUNTER 2024-07-20 11:19 | Outpatient (AMB) | payer MEDICARE, MEDICAID, SELFPAY ==
--- OUTSIDE RECORDS SUMMARY | 2024-07-20 11:22 | XMS_ITS | Clinical Summary ---
Author Organization [facility] Address [address] [place] [address] Care Team Providers Care Poultry Offal Icer Name Role Phone Unavailable Primary Care Provider Unavailabl e Social History Tobacco Use Types Packs/Day Years Used Date Smoking Tobacco: Never Assessed Sex and Gender Information Value Date Recorded Sex Assigned at Not on file Legal Sex Male 3:10 PM EDT Gender Identity Not on file Sexual Orientation Not on file Plan of Treatment Health Maintenance Due Date Last Done Comments Hepatitis C Virus Screening 1965 HIV Screening 1978 DTaP/Tdap/Td Vaccines (1 - Tdap) 02/14/1984 Hepatitis B Vaccines (1 of 3 - 19+ 3-dose series) 01/28 Pneumococcal Vaccines 50+ (1 of 1 - PCV) 2015 Zoster (Shingles) Vaccine (1 of 2) 2015 COVID-19 Vaccine ( - 2023- season) 2023
--- NOTE | 2024-07-20 13:06 | MHC.OFFWIV ---
Intake Vital Signs 07/20/24 13:09 Weight 295 lb BP 118/80 Blood Pressure Location Lt brachial Position Sitting Pulse 97 Pulse Source Pulse Oximeter Temp 97.7 F Temp Source Oral Pulse Oximetry (%) 95 Oxygen Delivery Method Room Air Intake Visit Reasons: Ep-sinus issues Intake Note: Patient here for sinus congestion and slight headache that started earlier this week. Patient Tobacco Use Status: Never used Tobacco Allergies No Known Allergies Allergy (Verified 07/20/24 13:14) Do you need a note to return to daycare/school/sports/work: No HPI HPI Comments History of Present Illness Details 59 y/o Male patient who presents to the walk in clinic with c/o sinus congestion and mild headache that started Tuesday. Pt has Stage 4 Lung CA and does receive Chemotherapy treatments. Denies Fevers, chills, nausea or vomiting. PFS Medical History (Updated 07/20/24 @ 13:40 by Hannah Paulino NP) Allergic rhinitis Acute respiratory disease GERD (gastroesophageal reflux disease) Cluster headaches Type 2 diabetes mellitus Hypercholesterolemia Hypertension Palpitations Stage 4 lung cancer Social History Patient Tobacco Use Status: Never used Tobacco Review of Systems Const All systems reviewed & are unremarkable except as noted in HPI and below Physical Exam Vital Signs: Last Vital Signs Temp 97.7 F 07/20/24 13:09 Pulse 97 07/20/24 13:09 BP 118/80 07/20/24 13:09 Pulse Ox 95 07/20/24 13:09 Oxygen Delivery Method Room Air 07/20/24 13:09 Const General: no acute distress Nutritional Appearance: obese Orientation/consciousness: patient oriented x3 HEENT Head: Yes normocephalic Ears: external ears normal and TM abnormal with fluid behind the TM General nose exam: Abnormal mucous membranes and turbinates present erythematous and Nasal discharge present Face and sinus: Yes sinuses nontender Mouth: moist mucous membranes Resp Effort & Inspection: normal respiratory effort and able to speak in complete sentences Auscultation: clear to auscultation bilaterally, no crackles, no rales, no rhonchi and no wheezes Cardio Heart sounds: S1 normal heart sound present and S2 normal heart sound present Neuro General: patient oriented x3 Assessment & Plan Assessment & Plan (1) Acute respiratory disease: Code(s): J06.9 - Acute upper respiratory infection, unspecified Plan: Ordered SARs (2) Allergic rhinitis: Code(s): J30.9 - Allergic rhinitis, unspecified Qualifiers: Allergic rhinitis seasonality: seasonal Allergic rhinitis trigger: pollen Qualified Code(s): J30.1 - Allergic rhinitis due to pollen Plan: Ordered Sudafed Take Claritin BID. Orders: Orders SARS-CoV2/FLU/RSV Today J06.9 - Acute upper respiratory infection, unspecified Medications: New pseudoephedrine HCl ER (Sudafed 12 Hour) 120 mg PO Q12H 14 tabs 0RF 7 days J30.9 - Allergic rhinitis, unspecified Coding Level of Care Code Est Pt Level 4 (63524) Diagnoses Acute respiratory disease J06.9 Seasonal allergic rhinitis due to pollen J30.1 Allergic rhinitis seasonality: seasonal Allergic rhinitis trigger: pollen Time Spent (min) 20
[2024-07-20 13:09] VITALS: BP 118/80; PULSE 97; TEMP 36.5; O2SAT 95
== END 2024-07-20 13:44 | disposition home or self-care (01) ==
PROVIDERS: PCP Internal Medicine; Visit Provider Nurse Practitioner Family
DX: J06.9 Acute upper respiratory infection, unspecified (principal); J30.1 Allergic rhinitis due to pollen

== ENCOUNTER 2024-09-11 15:50 | Emergency (ER) | payer MEDICAID, SELFPAY ==
[2024-09-11 15:58] VITALS: BP 138/85; BP 158/90; PULSE 92; PULSE 97; RESP 18; TEMP 37.1; O2SAT 94; O2SAT 98; BMI 35.6
[2024-09-11 16:34] VITALS: BP 138/85; PULSE 93; RESP 18; O2SAT 94
--- OUTSIDE RECORDS SUMMARY | 2024-09-11 16:53 | XMS_ITS | Data Portability ---
Author Organization [facility], , [facility] Address [address] [place] [address] Assessment Encounter Date Assessment Date Assessment LastModified [...] recorded. Lab triglycer ides, serum 2016 017 [facility], [address] [place] [address], [address], 7 10:15:36 urinalysi s, dipstick, auto [address] [facility], [address] [place] [address], [address], 7 12:23:18 cytology, non-gynec ological, unspecifi ed specimen 2016 017 [facility], [address] [place] [address], [address], 7 11:23:15 PSA, serum or plasma 2016 017 [facility], [address] [place] [address], [address], 7 11:07:04 Referral None recorded. Procedures None recorded. Surgeries None recorded. Imaging None recorded. Medication Orders ammonium lactate 12 % topical cream 2016 017 [id number], [address] [place], [address], 7 14:15:40 omeprazol e 20 mg capsule,d elayed release 2016 017 [id number], [address] [place], [address], 7 14:15:42 sumatript an 100 mg tablet 2016 017 [id number], [address] [place], [address], 7 14:15:41 diltiazem CD 180 mg capsule,e xtended release 24 hr 2016 017 [id number], [address] [place], [address], 7 14:15:40 Patient TargetsNo targets recorded. Patient Instructions Encounter Date Encounter Id Patient Instructions Last Modified By Organization Details Last Modified Time 08/04/2016 [id number] Pt refused RTC o n Tuesday. Will call pt to decrease PF in next a couple of day if better. Not available 08/04/2016 16:57:50 08/10/2016 [id number] Eye looks great Taper drops as directed Return with any new symptoms or recurrence Continue with routine eye exams [email or web address] Not available 08/10/2016 14:37:02 08/30/2016 [id number] deciding about using medicines to quit smoking Not available 08/30/2016 14:59:27 Quitting Tobacco : Care Instructions Not available 08/30/2016 14:59:27 high blood pressure: care instructions Not available 08/30/2016 14:59:27 learning about high blood pressure Not available 08/30/2016 14:59:27 Well Visit 50 to 65: Care Instructions Not available 08/30/2016 14:59:27 Counseling done [facility] Not available 08/30/2016 13:43:39 04/25/2017 [id number] high blood pressure: care instructions [email or web address] Not available 04/25/2017 16:40:30 learning about high blood pressure [email or web address] Not available 04/25/2017 16:40:30 has moved to [place]- harder to get here. given name of Dr. Cindi Mata @ [facility] [email or web address] Not available 04/25/2017 16:42:48 05/26/2017 [id number] Glasses Rx was given. No retinopathy OD and OS. Monitor BG and A1C. Not available 05/26/2017 16:31:29 Reason for Referral None Reported. Results Created Date Observation Date Name Description Value Unit Range Abnormal Flag Note LastModifiedBy Organization Detail LastModifiedTime 08/11/1908/11/2016 BMP, serum or plasm a glucose 99 mg/dL 70-100 Not Available [address], [address], 08/11/2016 09:31:23 08/11/1908/11/2016 BMP, serum or plasm a BUN 15 mg/dL 7-18 Not Available [address], [address], 08/11/2016 09:31:23 08/11/1908/11/2016 BMP, serum or plasm a creatinine 1.2 mg/dL 0.8-1. 3 Not Available [address], [address], 08/11/2016 09:31:23 08/11/1908/11/2016 BMP, serum or plasm a B/C 12.5 ratio Not Available [address], [address], 08/11/2016 09:31:23 08/11/1908/11/2016 BMP, serum or plasm a GFR -non 67.8 mL/mi n Recom fracisco d GFR by the Natio nal Kidne y Found ation >60 mL/mi n/1.7 3m2 - Araceli l <60 mL/mi n/1.7 3m2 - Chron ic Kidne y Disea se <15 mL/mi n/1.7 3m2 - Kidne y Failu re Not Available [address], [address], 08/11/2016 09:31:23 08/11/19 17 08/11/2016 BMP, serum or plasm a GFR - if 82.1 mL/mi n For Afric an Ameri can patie nts: Resul ts Multi plied by 1.21 Not Available [address], [address], 08/11/2016 09:31:23 08/11/19 17 08/11/2016 BMP, serum or plasm a sodium 142 mmol/ L 136-14 5 Not Available [address], [address], 08/11/2016 09:31:23 08/11/19 17 08/11/2016 BMP, serum or plasm a potassium 4.5 mmol/ L 3.5-5. 1 Not Available [address], [address], 08/11/2016 09:31:23 08/11/1908/11/2016 BMP, serum or plasm a chloride 103 mmol/ L 96-107 Not Available [address], [address], 08/11/2016 09:31:23 08/11/19 17 08/11/2016 BMP, serum or plasm a anion gap 13.2 5.0-15 .0 Not Available [address], [address], 08/11/2016 09:31:23 08/11/1908/11/2016 BMP, serum or plasm a CO2 26 mmol/ L 21-32 Not Available [address], [address], 08/11/2016 09:31:23 08/11/19 17 08/11/2016 BMP, serum or plasm a calcium 9.6 mg/dL 8.5-10 .3 Not Available [address], [address], 08/11/2016 09:31:23 08/11/1908/11/2016 lipid panel , serum cholesterol 212 mg/dL <200 mg/dl Maurice able 200-2 39 mg/dl Borde rline High >240 mg/dl High Not Available [address], [address], 08/11/2016 09:31:23 08/11/1908/11/2016 lipid panel , serum triglyceride s 431 mg/dL high LIPM= Speci men Moder ately Lipem ic. Chem Resul ts may be effec kit. <150 mg/dL Araceli l 150-1 99 mg/dL Borde rline High 200-4 99 mg/dL High >500 mg/dL Very High Not Available [address], [address], 08/11/2016 09:31:23 08/11/1908/11/2016 lipid panel , serum direct HDL 30 mg/dL Not Available [address], [address], 08/11/2016 09:31:23 08/11/1908/11/2016 LDL, direc t, serum direct LDL 128 mg/dL RISK CATEG ORY LDL GOAL _ CHD or CHD Risk Equiv alent s <100 mg/dl (10-y ear risk >20%) 2+ Risk Facto rs <130 mg/dl (10-y ear risk <= 20%) 0-1 Risk Facto r <160 mg/dl Almo st all peopl e with 0-1 risk facto r have a 10 year risk <10%, thus 10 year risk asses ment in peopl e with 0-1 risk facto r is not neces anurag. Not Available [address], [address], 08/11/2016 09:31:24 10/16/19 17 10/15/2016 urina lysis , dipst ick, auto color YELLOW yellow normal Not Available [facility] [place] [facility] [address], [place], [address], 10/15/2016 15:18:59 10/16/19 17 10/15/2016 urina lysis , dipst ick, auto appearance CLEAR clear normal Not Available [facility] [place] [facility] [address], [place], [address], 10/15/2016 15:18:59 10/16/19 17 10/15/2016 urina lysis , dipst ick, auto specific gravity 1.020 1.001- 1.035 normal Not Available [facility] [place] [facility] [address], [place], [address], 10/15/2016 15:18:59 10/16/19 17 10/15/2016 urina lysis , dipst ick, auto pH 5.5 5.0-8. 0 normal Not Available [facility] [place] [facility] [address], [place], [address], 10/15/2016 15:18:59 10/16/19 17 10/15/2016 urina lysis , dipst ick, auto glucose NEGATI VE negati ve normal Not Available [facility] [place] [facility] [address], [place], [address], 10/15/2016 15:18:59 10/16/19 17 10/15/2016 urina lysis , dipst ick, auto bilirubin NEGATI VE negati ve normal Not Available [facility] [place] [facility] [address], [place], [address], 10/15/2016 15:18:59 10/16/19 17 10/15/2016 urina lysis , dipst ick, auto ketones NEGATI VE negati ve normal Not Available [facility] [place] [facility] [address], [place], [address], 10/15/2016 15:18:59 10/16/19 17 10/15/2016 urina lysis , dipst ick, auto occult blood TRACE negati ve abnormal Not Available [facility] [place] [facility] [address], [place], [address], 10/15/2016 15:18:59 10/16/19 17 10/15/2016 urina lysis , dipst ick, auto protein NEGATI VE negati ve normal Not Available [facility] [place] [facility] [address], [place], [address], 10/15/2016 15:18:59 10/16/19 17 10/15/2016 urina lysis , dipst ick, auto nitrite NEGATI VE negati ve normal Not Available [facility] [place] [facility] [address], [place], [address], 10/15/2016 15:18:59 10/16/19 17 10/15/2016 urina lysis , dipst ick, auto leukocyte esterase NEGATI VE negati ve normal Not Available [facility] [place] [facility] [address], [place], [address], 10/15/2016 15:18:59 10/16/19 17 10/15/2016 urina lysis , dipst ick, auto WBC 0-5 /hpf < or = 5 normal Not Available [facility] [place] [facility] [address], [place], [address], 10/15/2016 15:18:59 10/16/19 17 10/15/2016 urina lysis , dipst ick, auto RBC 0-2 /hpf < or = 2 normal Not Available [facility] [place] [facility] [address], [place], [address], 10/15/2016 15:18:59 10/16/19 17 10/15/2016 urina lysis , dipst ick, auto Unknown Analyte See Below This urine was deb zed for the prese nce of WBC, RBC, bacte álvaro, casts , and other forme d eleme nts. Only those eleme nts seen were repor kit. Not Available [facility] [address], [place], [address], 10/15/2016 15:18:59 10/16/19 17 10/15/2016 cultu re, urine reflexive urine culture NO CULTUR E INDICA KIT Not Available [facility] [place] [facility] [address], [place], [address], 10/15/2016 15:19:00 10/16/19 17 10/18/2016 trigl yceri sidra, serum triglyceride s 184 mg/dL <150 mg/dL Araceli l 150-1 99 mg/dL Borde rline High 200-4 99 mg/dL High >500 mg/dL Very High Not Available [address], [address], 10/18/2016 10:15:35 10/16/19 17 10/18/2016 PSA, serum or plasm a PSA 0.62 NG/mL 0.00-4 .00 Not Available [address], [address], 10/18/2016 11:07:04 10/16/19 17 10/19/2016 cytol ogy screener normal WAC, CT( CP) CT scree zeke locat ion: [facility] [address], [place] [address] Not Available [facility] [address], [place], [address], 10/19/2016 11:23:15 10/16/19 17 10/19/2016 cytol ogy pathologist normal Mike Mccloud , M.D., Board Certi fied in Anato reno and Clini malik Patho logy (elec troni c signa ture) Consu lting Patho logis t [facility] [place] [address] [phone] Not Available [facility] [place] [facility] [address], [place], [address], 10/19/2016 11:23:15 10/16/19 17 10/19/2016 cytol ogy A source normal Urine Not Available [facility] [place] [facility] [address], [place], [address], 10/19/2016 11:23:15 10/16/19 17 10/19/2016 cytol ogy A procedure Cytolo gy Not Available [facility] [place] [facility] [address], [place], [address], 10/19/2016 11:23:15 10/16/19 17 10/19/2016 cytol ogy [...] [facility] [address], [place] [phone] Labor atory Direc tor: JENNY SÁNCHEZ MD Not Available [facility] [place] [facility] [address], [place], [address], 10/19/2016 11:23:15 10/16/19 17 10/19/2016 cytol ogy A diagnosis Negat ricardo for malig nant cells . Not Available [facility] [place] [facility] [address], [place], [place], [address], 10/19/2016 11:23:15 04/19/19 18 04/19/2017 BMP, serum or plasm a glucose 112 mg/dL 70-100 high Not Available [address], [address], 04/19/2017 12:03:36 04/19/19 18 04/19/2017 BMP, serum or plasm a BUN 14 mg/dL 7-18 Not Available [address], [address], 04/19/2017 12:03:36 04/19/19 18 04/19/2017 BMP, serum or plasm a creatinine 1.1 mg/dL 0.8-1. 3 Not Available [address], [address], 04/19/2017 12:03:36 04/19/19 18 04/19/2017 BMP, serum or plasm a B/C 12.7 ratio Not Available [address], [address], 04/19/2017 12:03:36 04/19/19 18 04/19/2017 BMP, serum or plasm a GFR -non 74.7 mL/mi n Recom fracisco d GFR by the Natio nal Kidne y Found ation >60 mL/mi n/1.7 3m2 - Araceli l <60 mL/mi n/1.7 3m2 - Chron ic Kidne y Disea se <15 mL/mi n/1.7 3m2 - Kidne y Failu re Not Available [address], [address], 04/19/2017 12:03:36 04/19/19 18 04/19/2017 BMP, serum or plasm a GFR - if 90.4 mL/mi n For Afric an Ameri can patie nts: Resul ts Multi plied by 1.21 Not Available [address], [address], 04/19/2017 12:03:36 04/19/19 18 04/19/2017 BMP, serum or plasm a sodium 142 mmol/ L 136-14 5 Not Available [address], [address], 04/19/2017 12:03:36 04/19/19 18 04/19/2017 BMP, serum or plasm a potassium 4.1 mmol/ L 3.5-5. 1 Not Available [address], [address], 04/19/2017 12:03:36 04/19/19 18 04/19/2017 BMP, serum or plasm a chloride 103 mmol/ L 96-107 Not Available [address], [address], 04/19/2017 12:03:36 04/19/19 18 04/19/2017 BMP, serum or plasm a anion gap 13.2 5.0-15 .0 Not Available [address], [address], 04/19/2017 12:03:36 04/19/19 18 04/19/2017 BMP, serum or plasm a CO2 26 mmol/ L 21-32 Not Available [address], [address], 04/19/2017 12:03:36 04/19/19 18 04/19/2017 BMP, serum or plasm a calcium 9.7 mg/dL 8.5-10 .3 Not Available [address], [address], 04/19/2017 12:03:36 04/19/19 18 04/19/2017 lipid panel , serum cholesterol 259 mg/dL LIPS= Speci men Sligh tly Lipem ic. Chem Resul ts may be effec kit. <200 mg/dl Maurice able 200-2 39 mg/dl Borde rline High >240 mg/dl High Not Available [address], [address], 04/19/2017 12:20:41 04/19/19 18 04/19/2017 lipid panel , serum triglyceride s 140 mg/dL <150 mg/dL Araceli l 150-1 99 mg/dL Borde rline High 200-4 99 mg/dL High >500 mg/dL Very High Not Available [address], [address], 04/19/2017 12:20:41 04/19/19 18 04/19/2017 lipid panel , serum direct HDL 41 mg/dL Not Available [address], [address], 04/19/2017 12:20:41 04/19/19 18 04/19/2017 LDL, direc t, serum direct LDL 178 mg/dL RISK CATEG ORY LDL GOAL _ CHD or CHD Risk Equiv alent s <100 mg/dl (10-y ear risk >20%) 2+ Risk Facto rs <130 mg/dl (10-y ear risk <= 20%) 0-1 Risk Facto r <160 mg/dl Almo st all peopl e with 0-1 risk facto r have a 10 year risk <10%, thus 10 year risk asses ment in peopl e with 0-1 risk facto r is not neces anurag. Not Available [address], [address], 04/19/2017 12:20:42 Result Notes None recorded. Problems Name Problem SNOMED Code Status Onset Date Resolution Date Notes Provider Name and Address Organization Details Recorded Time Essential hypertension [id number] Khoi Gates NP [address] [place], [place] [address], [address], [facility] 6 14:24:11 Tobacco user 006521201 Khoi Gates NP [address] [place], [place] [address], [address], [facility] 6 14:15:00 Benign essential hypertension 9618900 Khoi Gates NP [address] [place], [place] [address], [address], [facility] 14:15:00 Problem Notes None recorded. Procedures Surgical History Date Name Laterality Status Provider Name and Address Organization Details Recorded Time 05/27/19 18 Refraction completed Ney Rivero [facility] 05/26/2017 16:00:22 04/25/19 18 Smoking cessation counseling completed Radha Berry D.O. [address] [place], [address], [facility] 04/25/2017 16:41:04 08/31/19 17 Smoking cessation counseling completed Tarah Matthews [facility] 08/30/2016 13:43:39 08/31/19 17 Carbon Monoxide Testing completed Tarah Matthews [facility] 08/30/2016 13:43:39 04/19/19 17 Smoking cessation counseling completed Sandra Mathews [facility] 04/19/2016 11:56:11 04/19/19 17 Carbon Monoxide Testing completed Sandra Mathews [facility] 04/19/2016 11:58:02 10/13/19 16 Smoking cessation counseling completed Bridget Denny [facility] 10/13/2015 15:20:30 10/13/19 16 Carbon Monoxide Testing completed Bridget Denny [facility] 10/13/2015 15:36:06 08/25/19 16 Meek - Colonoscopy completed Fortino Eden MD [address] [place] [address], [address], [facility] 08/25/2015 11:58:24 06/01/19 15 Smoking cessation counseling completed Bridget Cantu [facility] 05/31/2014 16:26:02 03/22/19 15 Smoking cessation counseling completed Miley Urbano [facility] 03/22/2014 16:12:48 01/31/20 14 Smoking cessation counseling completed Bridget Cantu [facility] 01/30/2014 11:14:07 07/17/19 14 Smoking cessation counseling completed Bridget Cantu [facility] 07/16/2013 08:24:22 05/03/19 14 Smoking cessation counseling completed Bridget Cantu LPN [facility] 05/02/2013 08:50:33 12/15/19 13 Smoking cessation counseling completed Bridget Cantu LPN [facility] 12/14/2012 09:32:08 Imaging Results None recorded. Procedure Notes None recorded. Medical Equipment None Reported. Allergies Allergen ID Allergen Name Allergen Category Reaction Reaction Severity Criticality Documentation Date Start Date Code Code System Note Provider Name and Address Organization Details Recorded Time 678594 lisinopri l medicatio n nausea Not available Not available 07/25/2012 91941 RxNorm MIRIAM Kerr [facility] 3 14:29:59 Medications Name Sig Start [...] index (BMI) Body weight Heart rate Systolic And Diastolic Provider Name and Address Organization Details Last Updated DateTime 04/25/2017 194.31 cm 33.6 kg/m2 894148.8 6 g 68 /min 138/68 mm[Hg] GRECIA Araujo [facility] 04/25/2017 16:10:12 Date Recorded Body height Body mass index (BMI) Body weight Heart rate Systolic And Diastolic Provider Name and Address Organization Details Last Updated DateTime 08/30/2016 194.31 cm 31 kg/m2 753877.8 3 g 64 /min 140/80 mm[Hg] Tarah Matthews LPN [facility] 08/30/2016 13:54:29 Social History Question Answer Notes LastModified by Organizat ion Details LastModified Time Tobacco Smoking Status Current Every Day Smoker 1/3 pack daily Tarah Matthews LPN [facility] 08/30/2016 13:50:47 What Is Your Level Of Caffeine Consumption? [...] not available 07/16/2013 Sex: Unknown Functional Status Question Answer Note LastModified by Organizat ion Details LastModified Time What is your level of alcohol consumption? Moderate Information not available 07/25/2012 What is your occupation? prefer not to say Information not available 08/30/2016 Mental Status None recorded. Family History Nothing Reported Notes:Mother: HTN, COPD, has had two MIs, DM on dyalisis Father: does not know about him Brother: HTN Sister: diabetes, HTN Medical History Condition Response Hypertension Y OTHER Immunizations Vaccine Type Date Status Note Provider Nam e and Address Organization Details Recorded Time Td(adult) unspecified formulation 12/01/2011 completed MIRIAM Walker [facility] 08/28/2013 12:04:40 Past Encounters Encounter ID Performer Location Encounter Start Date Encounter Closed Date Diagnosis/Indication Diagnosis SNOMED-CT Code Diagnosis ICD10 Code Diagnosis Note [id number] Adela Redman MD , [facility], OFFICE [address] [place] [address] 07/25/2012 14:13:58 07/25/2012 15:13:11 [id number] Radha Berry D.O. , [facility], [place]ICE [address] [place] [address] 12/14/2012 09:18:35 12/14/2012 10:00:05 Tobacco user [id number] will ing to quit. discussed treatment options- side effects of meds. Essential hypertension 56871342 did blood work this am BP meds working well, no side effects Dermal mycosis 93766382 [id number] Mauricio Larry DPM Podiatry, [facility] [address] [place] [address] 01/02/2013 13:30:26 01/04/2013 16:24:54 Disorder of nail 78754804 Hypertroph ic condition of skin 09031667 Tinea pedis 8881426 [id number] Radha Berry D.O. , [facility], [address]ICE [address] [place] [address] 04/10/2013 15:07:03 04/11/2013 09:20:14 Abdominal pain 41740287 Intermitte nt abdominal pain Unclear etiology Will check labs below. Will start ranitidine 150 mg bid Keep bland, low residue diet. Keep well hydrated Call/go to ER with wrosening pain, fever, vomitting F/U dependent on results below. [id number] Radha Berry D.O. , [facility], [address]ICE [address] [place] [address] 05/02/2013 08:38:30 05/03/2013 08:20:44 Tobacco user 615609656 advised to quit- will helpo with gastritis Gastritis 8539695 comple kit h-pylori tx. ok to contineu omeprazole ONCE daily for additional 6 weeks if no continued improvemen t, will send for endoscopy Essential hypertension 31671949 at goal as <160/90 [id number] Adolph Munroe MD , [facility], OFFICE [address] [facility] [place] [address] 06/25/2013 11:26:21 06/25/2013 13:21:28 Colitis, enteritis and gastroenteritis presumed infectious 142096774 Most acute gastroente ritis ( stomach flu [...] diarrhea does not improve in 2-3 days. [id number] Radha Berry D.O. [facility], OFFICE [address] [place] [address] 07/16/2013 07:52:22 07/16/2013 09:07:11 Benign essential hypertension 7205541 Blood pressure at goal as <160/90 recommende d starting baby aspirin daily Tobacco user 758894830 w ill retry chantix. last time he had a stomach bug and medicine worsened his symtpoms Adult heal th examination 479272497 see Risk Assessment and Lifestyle Change Counseling section above Counseling [id number] Gastritis 5900744 [id number] Radha Berry D.O. [facility], OFFICE [address] [place] [address] 01/30/2014 10:31:30 02/01/2014 08:53:49 Tobacco user 354893300 Chantix BID makes him tired, advised once daily chantix Chest pain 94242217 [id number] Radha Berry D.O. [facility], OFFICE [address] [place] [address] 03/22/2014 16:07:32 03/22/2014 16:27:15 Tobacco user 105193790 Will d/c Chantix Will try nicotine replacemen t patches 21 mcg qd/ reviewed how to use. Migraine 83520029 Hx of cluster headaches Will see if any relief with sumatripta n- subq is recommende d for cluster but pt declines. Also declines nasal. Will see if any relief with oral. F/U prn [id number] Sanket Gomez MD , [facility], OFFICE [address] [place] [address] 04/15/2014 14:45:26 04/15/2014 15:18:07 Chronic cluster headache 289935595 [id number] Radha Berry D.O. [facility], OFFICE [address] [place] [address] 05/31/2014 16:08:50 06/06/2014 09:14:54 Essential hypertension 78153811 at goal as <150/90 Tobacco user 893577324 w ill go back on the patches Dermal mycosis 41397178 [id number] Radha Berry D.O. [facility], OFFICE [address] [place] [address] 04/23/2015 14:23:45 04/23/2015 14:58:30 Adult health examination 297516649 Z00.00 Screening for disorder 462320908 Z11.59 Screening for malignant neoplasm of colon 297511918 Z12.11 Referral for a DIRECT booked colonoscop y. This patient is a healthy ASA Class 1 or 2 patient (only mild systemic disease), or a STABLE, well controlled insulin dependent diabetic. They do not have serious cardiac disease ie RI/angiopl asty within 1 year, symptomati c CHF; renal failure with CKD 4 or 5; take Coumadin, Plavix, Aggrenox, etc; nor take chronic narcotics. [Patients who take chronic narcotics should be referred to [facility] for a propofol procedure due to possible inability to sedate adequately with conscious sedation.] Benign ess ential hypertension 2148471 I10 BP not at goal will start cardizem 180 mg qd c/w hctz and losartan rto 4 weeks for f/u Nicotine dependence 5629 4008 F17.200 discussed smoking cessation has not been consistent with patches will try patches and chantix which he did previously Pain of sh ould region 71429600 M25.512 L shoulder likely bicep tendinitis advised ice regularly, given handout with exercise. [id number] Radha Berry D.O. [facility], [address]ICE [address] [place] [address] 05/07/2015 13:58:09 05/07/2015 14:24:35 Acute upper respiratory infection 02227192 J06.9 Educated patient that URI is a viral illness of the upper airways. It is not bacterial and does not benefit from antibiotic s. Average duration of URI is 7-10 days in 2-4 weeks. Advised mucinex bid, Afrin, fluids rest Essential hypertension 55798259 I10 at goal with addition of cardizem tolerating well will c/w medication [id number] Mauricio Larry DPM Podiatry, [address] [address] 07/11/2015 12:30:35 07/11/2015 13:02:01 Acquired keratoderma 280056009 L85.1 [id number] Fortino Eden MD [facility], [address] [address] 08/25/2015 09:29:09 08/25/2015 13:50:25 [id number] Radha Berry D.O. , [facility], OFFICE [address] [place] [address] 10/13/2015 14:49:37 10/17/2015 09:44:01 Benign essential hypertension 5862354 I10 Blood pressure at goal Cigarette smoker 8282497 7 F17.210 sleepy when takes chantix in amagrees to take at bedtime only Tobacco user 974279170 Z 72.0 Acquired keratoderma 400 051978 L85.1 Heart murmur 22228853 R0 1.1 RUSB- suspect Aortic stenosis- discussed aggressive tx with HTN meds and quitting smoking [id number] Mariana Augustin MD , [facility], OFFICE [address] [place] [address] 04/19/2016 11:45:02 04/19/2016 12:29:15 Cigarette smoker 33231544 F17.210 Nicotine lozenges and verbal counseling done today. Acute otitis media 18230 03 H66.93 You have ear infections , [...] a month we should take a look. [id number] Radha Berry D.O. , [facility], OFFICE [address] [place] [address] 06/30/2016 11:04:55 06/30/2016 11:46:31 Cluster headache 292753891 G44.009 dx 2009cluste rs more severe, frequent- usu last monthsneve r tried o2 tx- will try to arrangewil l see if any improved response with nasalrefer ral to Neurohas pha in 2 months Injury of finger 2992032 8 S69.81XA doing wellno infection Tobacco user 660308170 Z 72.0 declined conot ready to quitdiscus sed importance will c/t address Benign ess ential hypertension 6617738 I10 BP at goalc/w meds [id number] Darrian Alfredo, OD [facility], [address] [address] 08/03/2016 13:50:25 08/03/2016 16:10:45 Acute iritis 19910914 H20.503 [id number] Concetta Mansfield, OD [facility], [address] [address] 08/04/2016 09:54:19 08/05/2016 09:36:12 Acute iritis 40794396 H20.011 C/o of PF and cyclopento late [id number] Darrian Alfredo, OD [facility], [address] [address] 08/10/2016 14:18:26 08/10/2016 14:47:16 Acute iritis 07035091 H20.011 ResolvedTa per PredForte as directedRe turn if starts up again [id number] Radha Berry D.O. , [facility], OFFICE [address] [place] [address] 08/30/2016 13:15:00 08/30/2016 14:13:20 Adult health examination 050155438 Z00.00 see Risk Assessment and Lifestyle Change Counseling section aboveColon oscopy: 08/25/15 Counseling 206591694 Z71 .9 Benign ess ential hypertension 8819061 I10 Blood pressure at goal of < 140/90will work on diet- low saltexerci se Cigarette smoker 7169718 7 F17.210 discussed importance of smoking cessationc ongratulat ed on reductionw ill c/t address cessation Tobacco user 760886504 Z 72.0 discussed importance of smoking cessation congratula kit on reduction will c/t address cessation Acquired keratoderma 400 448867 L85.1 RF Gastroesop hageal reflux disease 234573876 K21.9 stable on omeprazole RF Migraine 95393964 G43.90 9 Hx of cluster headachesh as upcoming neuro consult 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 , [facility], OFFICE [address] [place] [address] 04/25/2017 15:38:16 04/25/2017 16:55:35 Benign essential hypertension 4072732 I10 Blood pressure at goal Screening for disorder 502717229 Z11.59 Cluster headache 4786577 [address] martinez recommende d going on verapamil and dosing up every 2 weeks - 120 mg, then 240 mg, then 360 mg. he still wants to think about this. if decides, will d/c diltiazem Folliculitis 14038529 L7 3.9 axiallary- discussed wearing looser shirts [id number] Concetta Mansfield, [facility], [facility] [address] [place] [address] 05/26/2017 15:37:47 05/27/2017 07:07:02 Presbyopia 27881119 H52.4 Myopic astigmatism 99765 4005 H52.209 Type 2 camila betes mellitus without complication 054443514 E11.9 Health Concerns Section Related Observation LastModified by Organization Detai ls LastModified Time None Recorded Concern Status LastModified by Organization Details LastModified Time None Recorded Advance Directives Directive None Recorded Payers Insurance Date Sequence Insurance Name Policy Number Policy Guillen Covered Member ID Guillen Member ID Guarantor Name 06/06/2017 2 [place] [id number] Jesse Patrick [id number] Jesse Patrick 01/27/2015 1 *SELF PAY* Te hazel Patrick 04/19/2016 2 [place] Jesse Patrick [id number] Jesse Patrick 11/17/2012 1 [facility] HEALTH NET PLAN (MEDICAID HMO) [id number] 1 Jesse Patrick [id number] Jesse Patrick 07/25/2012 1 [place] [id number] Jesse Patrick [id number] Jesse Patrick 04/10/2013 1 [facility]- PLAN TYPE 2 (MEDICAID HMO) [id number] 1 Jesse Patrick [id number] Jesse Patrick 10/07/2014 1 [facility] CAREPLUS - CAREPLUS A (MEDICAID HMO) [id number] 1 Jesse Patrick [id number] Jesse Patrick 03/30/2015 2 [place] Jesse Patrick [id number] Jesse Patrick 08/04/2017 1 [facility] [employer] NET PLAN (MEDICAID HMO) [id number] 1 Jesse Patrick [id number] Jesse Patrick Notes Date Note Type Note Provider Name and Address Organization Details Recorded Time 7 text/html Comprehensive Eye ExamReported bypatient.Quality:year exam (F/U); no blurred vision Location:bilateral Context:currently wears glasses Modifying factors:wears glasses for distance and near Associated Symptoms:no itching; no floaters; no dryness;redness Concetta Mansfield, OD [address] [place] [address], [phone], [facility] 08/04/2016 16:58:42 7 text/html Feels 100% better-no pain, irritation, light sensitivity. Vision is fine. Using PF 3x/day for past two days.No discharge. Darrian Alfredo, OD [address] [place] [address], [phone], [facility] 08/10/2016 14:37:34 7 text/html Physical Exam/MaleReported [...] No decline in exercise capacity; No snoringa/vmg-smoking [id number] bypatient.ImportanceOn a scale of 1-10 with 1 [...] to smoke much Renee Gates NP [address] [place], [address], [facility] 09/01/2016 20:15:10 8 text/html VMG HypertensionReported [...] decline in exercise capacity; No snoringNotes: a/vmg-smoking [id number] bypatient.Physiological Dependence/Health RiskCurrently smoking 20 cigarettes per day Medication AssessmentHas used Chantix in the past (made him sleepy) Radha Berry D.O. [address] [place] [address], [phone], [facility] 04/25/2017 16:43:20 8 text/html Comprehensive Eye ExamReported bypatient.Quality:2 year exam; no blurred vision Location:bilateral Context:currently wears glasses Modifying factors:wears glasses for distance and near Associated Symptoms:no redness; no itching; no floaters; no dryness Concetta Mansfield, SHARA [address] [place], [address], [facility] 05/26/2017 16:31:57
--- OUTSIDE RECORDS SUMMARY | 2024-09-11 16:53 | XMS_ITS | Clinical Summary ---
Author Organization [facility] Address [address] [place] [address] Care Team Providers Care Cattle Farmer Name Role Phone Unavailable Primary Care Provider [...]
--- OUTSIDE RECORDS SUMMARY | 2024-09-11 16:53 | XMS_ITS | Patient Health Record ---
Author Organization [facility] Address [address], [place] [id number] Care Team Providers Care Mine Engineer Name Role Phone NO, PCP Primary Care Provider [facility] Unavailable [phone] Reason For Referral No Information Plan Of Treatment No Information Insurance Providers Payer Name Payer Address Payer Phone Subscriber Number Group Number Insured Name Patient Relationship to Insured Coverage Start Date Coverage End Date [place] Medicare [place] [facility] [address] [place] [address] [id number] Jesse Patrick Self - patient is the insured 5 [place] [address] [place] [address] [id number] Jesse Patrick Self - patient is the insured 5
--- OUTSIDE RECORDS SUMMARY | 2024-09-11 16:53 | XMS_ITS | Clinical Summary ---
Author Organization [facility] Address [address] [address] Care Team Providers Care Dermatology Teacher Name Role Phone Unavailable Primary Care Provider [...] (1 of 3 - 19+ 3-dose series) 02/13 Colorectal Cancer Screening: Annual FOBT 2014 Colorectal Cancer Screening: Colonoscopy 2014 Colorectal Cancer Screening: Sigmoidoscopy 2014 Pneumococcal Vaccine: 50+ Years (1 of 1 - PCV) 015 Diabetes: Hemoglobin A1C 06/04/2022 Diabetes: Ophthalmology Exam 06/04/2022 Diabetes: Pedal Pulse Checked 06/04/2022 Diabetes: Sensory Foot Exam 06/04/2022 Diabetes: Visual Foot Exam 06/04/2022 Influenza Vaccine (#1) 2024 Insurance [facility] Medicaid [facility] Medicaid
--- OUTSIDE RECORDS SUMMARY | 2024-09-11 16:54 | XMS_ITS | Clinical Summary ---
Author Organization [facility] Address [address] [place] [address] Care Team Providers Care Spring Production Supervisor Name Role Phone Grecia Bonilla MD Primary Care Provider [phone] Allergies No known active allergies Medications acetaminophen [...] ars (1 of 2 - PCV) 02/14/1984 Zoster Vaccines (1 of 2) 2015 Cholesterol Screening (Lipid Panel) 01/31/2022 Colorectal Cancer Screening: Colonoscopy 01/31/2022 Depression Screening 01/31/2022 HIV Screening 01/31/2022 Social Influencers of Health Screening 01/31/2022 Influenza Vaccine (#1) 2024 RSV Immunization Adult Patie nts (1 [...] age to complete this topic Meningococcal B Vaccine Aged Out No l onger eligible based on patient's age to complete this topic RSV Immunization Patients Un shelton 20 months Aged Out No longer eligible b ased on patient's age to complete this topic Varicella Vaccines Aged Out No longer eligible based on patient's age to complete this topic Procedures Procedure Name Priority Date/Time Associated Diagnosis Comments HM HEPATITIS C SCREENING Routine 07/20/2022 from Last 3 Months or Most Recently Relevant to Health Maintenance Results * Hepatitis C Screening (07/20/2022) Hepatitis C Screening abstracted Historical Provider MD HEALTH MAINTENANCE Final Result from Last 3 Months or Most Recently Relevant to Health Maintenance Care Teams Spring Production Supervisor Relationship Specialty Start Date End Date Grecia Bonilla MD [address] [place] [address] [place] [address] PCP - General 05/06/23
--- NOTE | 2024-09-11 17:01 | PC.NURSE ---
Addendum entered by ePnny Kent RN 09/11/24 17:02: Patient is 59-year-old history of HTN, DM, HLD, paroxysmal AFib not on anticoagulation, stage IV lung cancer on chemotherapy last chemo session today. Patient takes steroids the day before and the day after and noticed his blood sugar more elevated then usual. Placed on 2L per patients request. Respirations even and non-labored. Abdomen soft, distended, non-tender with positive bowel sounds. Positive pedal pulses with no edema. Denies any complaints at this time. Original Note: Medical History GERD (gastroesophageal reflux disease) Cluster headaches Type 2 diabetes mellitus Hypercholesterolemia Hypertension Palpitations Stage 4 lung cancer
[2024-09-11 17:10] LABS: Glucose, Whole Blood 360 mg/dL (60-115)
[2024-09-11 17:18] VITALS: BP 144/77; PULSE 93; RESP 18; TEMP 36.7; O2SAT 95
[2024-09-11 17:51] LABS: Appearance Urine Clear; Glucose Urine UA >=1000 mg/dL (Negative); PH 5.5 (5.0-9.0); Specific Gravity - Urine 1.025 (1.005-1.025); UMIC TRIGGER UA YES
--- NOTE | 2024-09-11 18:20 | ECG_ITS ---
Test Reason : WEAKNESS Blood Pressure : */* mmHG Vent. Rate : 91 BPM Atrial Rate : 91 BPM P-R Int : 184 ms QRS Dur : 96 ms QT Int : 352 ms P-R-T Axes : 66 27 57 degrees QTcB Int : 432 ms Normal sinus rhythm Normal ECG When compared with ECG of 19-May-2024 07:06, Criteria for Septal infarct are no longer Present Referred By: Yoko Ovalles Electronically Signed By: MARZENA HILLIARD
[2024-09-11 18:42] LABS: MANUAL DIFF FLAG NO
[2024-09-11 18:44] LABS: Hematocrit 33.6 % (42.0-52.0); Hemoglobin 10.5 g/dl (14.0-18.0); Imm Gran Abs Auto 0.02 X10*3/uL (0.00-0.03); Imm Gran Pct Auto 0.3 % (0.0-0.4); Lymphocytes Absolute Auto 1.3 X10*3/uL (1.2-4.9); Mean Corpuscular HGB Conc 31.3 g/dl (31.0-36.0); Mean Corpuscular Hemoglobin 27.3 pg (27.0-33.0); Mean Corpuscular Volume 87.5 fL (80.0-98.0); NRBC Abs Auto 0.000 X10*3/uL (0.0-0.012); NRBC Pct Auto 0.0 /100WBC (0.0-0.2); Platelet Count 221 X10*3/uL (160-400); Red Blood Count 3.84 X10*6/uL (4.60-5.80); White Blood Count 7.5 X10*3/uL (4.8-10.8)
[2024-09-11 18:47] LABS: VBG HCO3 25 mmol/L (22-26); VBG O2 % Saturation 84.0 %
[2024-09-11 18:50] LABS: Venous Blood Gas Refer to POC result
[2024-09-11 19:03] LABS: Alanine Aminotransferase 73 U/L (0-40); Albumin Level 4.9 g/dL (3.5-5.0); Alkaline Phosphatase 75 U/L (39-117); Anion Gap 18 (12-20); Aspartate Amino Transferase 32 U/L (5-37); Blood Urea Nitrogen 29 mg/dL (9-16); Calcium 10.0 mg/dL (8.4-10.2); Carbon Dioxide 23 mmol/L (22-29); Chloride 101 mmol/L (96-108); Creatinine Clr Calc Pharmacy 90.2; Estimated Glomerular Filt Rate 56; Magnesium 1.9 mg/dL (1.6-2.6); Potassium 4.7 mmol/L (3.3-5.1); Sodium 137 mmol/L (135-145); Total Protein 8.5 g/dL (6.5-8.0)
[2024-09-11 19:10] LABS: Troponin-I High Sensitivity < 2.7 ng/L (<3.5-35.0)
--- NOTE | 2024-09-11 19:30 | PC.NURSE ---
MD Yee made aware of BGL. states will evaluate pt.
[2024-09-11 19:32] VITALS: BP 136/69; PULSE 97; RESP 18; TEMP 36.6; O2SAT 99
--- NOTE | 2024-09-11 19:40 | ED.GENADULT ---
HPI - General Adult General Chief complaint: General Medical Stated complaint: weak, blood sugar 458 for ems, cancer pt Time Seen by Provider: 09/11/24 19:40 Source: patient Mode of arrival: ambulatory Limitations: no limitations History of Present Illness ED Provider: Dr. Robb Yee HPI narrative: 59-year-old male with history of diabetes, hypertension, lung cancer who presents emergency department for evaluation of elevated glucose. The patient states that he has a history of lung cancer 1st diagnosed in 2021. Patient is currently being treated by the [facility] in [facility]. He states that he gets chemotherapy every 3 weeks for the last 2 years. He states that 2 days prior to evaluation he took his usual dose of pre- treatment dexamethasone. Today he had his chemotherapy and again had a 2nd dose of dexamethasone. The patient states that home he checked his glucose and it was 458 at its highest. Patient states that his glucose does go up after he gets dexamethasone but has never been this high in the past. Patient states that he has chronic increased thirst and urinary frequency and has not changed from his baseline. he continues to drink large amounts water per day as per his usual routine. He denied blurred vision. He denied being ill in any other way. He denied fever, chills, chest pain, shortness of breath, abdominal pain, dysuria, nausea, vomiting or diarrhea. Despite the high glucose he states that he is still feeling well. Related Data Home Medications ?Medication ?Instructions ?Recorded ?Confirmed atorvastatin 40 mg tablet 40 mg PO DAILY 01/26/23 diltiazem HCl 360 mg 360 mg PO DAILY 01/26/23 capsule,extended release 24 hr losartan 100 mg tablet 100 mg PO DAILY 01/26/23 losartan 100 1 tab PO DAILY 01/26/23 mg-hydrochlorothiazide 25 mg tablet metformin 1,000 mg tablet 1,000 mg PO BID 01/26/23 famotidine 20 mg tablet mg PO 07/20/24 magnesium oxide 400 mg (241.3 mg 400 mg PO DAILY 07/20/24 magnesium) tablet Previous Rx's ?Medication ?Instructions ?Recorded fluticasone furoate 27.5 2 spray intranasal DAILY #6.6 mL 06/01/23 mcg/actuation nasal spray,suspension (Flonase Sensimist) pseudoephedrine HCl 120 mg 120 mg PO Q12H 7 days #14 tabs 07/20/24 tablet,extended release (Sudafed 12 Hour) Allergies Allergy/AdvReac Type Severity Reaction Status Date / Time No Known Allergies Allergy Verified 09/11/24 16:14 Review of Systems Review of Systems: Yes all other systems are reviewed and are negative ON LICENSE OF [facility] Past Medical History Medical History (Updated 09/12/24 @ 00:00 by Tony Chaudhry) Allergic rhinitis Acute respiratory disease GERD (gastroesophageal reflux disease) Cluster headaches Type 2 diabetes mellitus Hypercholesterolemia Hypertension Palpitations Stage 4 lung cancer Social History Social History Patient Tobacco Use Status: Never used Tobacco Smoked in Last 30 Days: No Use of substances other than those prescribed or required for medical reasons: No Advance Directives: No Advance Directives Information Provided: No Physical Exam ED Vital Signs: Vital Signs - 24 hr 09/11/24 15:58 09/11/24 16:34 09/11/24 17:18 Temperature 98.8 F 98.1 F Pulse Rate 92 93 93 Respiratory Rate 18 18 18 Blood Pressure 138/85 138/85 144/77 H Pulse Oximetry 94 94 95 Oxygen Delivery Method Room Air Room Air Nasal Cannula Oxygen Flow Rate 2 09/11/24 19:32 09/11/24 21:42 Temperature 97.9 F 97.9 F Pulse Rate 97 88 Respiratory Rate 18 16 Blood Pressure 136/69 141/78 H Pulse Oximetry 99 95 Oxygen Delivery Method Nasal Cannula Room Air Oxygen Flow Rate 2 BMI result Body Mass Index 35.6 Vital signs revealed elevated blood pressure otherwise unremarkable Exam: General: Awake, alert in no distress Head: Normocephalic, atraumatic EENT: PERRL, Lids normal, sclera normal, conjunctiva normal, nose normal , ears normal, throat without erythema or exudates Neck: Supple, no adenopathy Lung: breath sounds symmetric, no wheezing, rales or rhonchi Chest: symmetric movement, nontender Heart: regular rate and rhythm, normal S1, S2 no murmurs or rubs Abdomen: soft, non-tender, nondistended, normal bowel sounds Back: no vertebral tenderness, no CVAT Extremities: no deformities, moves all extremities symmetrically Neuro: Awake, alert, oriented, normal speech, cranial nerves intact, moves all extremities symmetrically Psych: Pleasant, cooperative Medications Administered Discontinued Medications Generic Name Dose Route Start Last Admin Trade Name Freq PRN Reason Stop Dose Admin Sodium Chloride 1,000 mls @ 999 mls/hr 09/11/24 19:55 09/11/24 21:09 Ns IV 09/11/24 20:55 Infused .Q1H1M STA Infusion Sodium Chloride 1,000 mls @ 999 mls/hr 09/11/24 19:56 09/11/24 21:09 Ns IV 09/11/24 20:56 Infused .Q1H1M STA Infusion Insulin Human Regular 5 unit 09/11/24 19:55 09/11/24 20:08 Insulin Regular, Human 100 Unit/Ml 10 Ml Vial IVPUSH 09/11/24 19:56 5 unit ONCE ONE Administration Medical Decision Making Medical Decision Making MDM Narrative: 59-year-old male with history of diabetes, hypertension, lung cancer who presents emergency department for evaluation of elevated glucose. The patient states that he has a history of lung cancer 1st diagnosed in 2021. Patient is currently being treated by the [facility] in [facility]. He states that he gets chemotherapy every 3 weeks for the last 2 years. He states that 2 days prior to evaluation he took his usual dose of pre- treatment dexamethasone. Today he had his chemotherapy and again had a 2nd dose of dexamethasone. The patient states that home he checked his glucose and it was 458 at its highest. Patient states that his glucose does go up after he gets dexamethasone but has never been this high in the past. Patient states that he has chronic increased thirst and urinary frequency and has not changed from his baseline. he continues to drink large amounts water per day as per his usual routine. He denied blurred vision. He denied being ill in any other way. He denied fever, chills, chest pain, shortness of breath, abdominal pain, dysuria, nausea, vomiting or diarrhea. Despite the high glucose he states that he is still feeling well.Vital signs revealed elevated blood pressure. Physical examination was unremarkable. Differential diagnosis: Includes but is not limited to steroid induced type hyperglycemia, myocardial infarction, myocardial ischemia,infectious process, dietary noncompliance, anemia, electrolyte abnormalities Course: My independent interpretation patient's laboratory evaluation is as follows: Chronic normocytic anemia with an H&H of 10.5 and 33.6 similar to H&H on 05/19/2024. Elevated BUN of 29 with normal creatinine. Elevated glucose 375. Elevated AST of 73. troponin was below detectable limits. Venous pH was normal at 7.40. Twelve EKG was unremarkable which is reassuring. Patient's presentation is consistent with steroid induced hyperglycemia. Patient was treated with normal saline IV x2 L and regular insulin 5 units IV. Patient's discharge point of care glucose was 267. advised the patient to continue taking his metformin as prescribed, stay on a low carbohydrate low sugar diet for the next 2-3 days and to increase his fluid intake prevent dehydration vomiting depletion from hyperglycemia. Patient was given printed and verbal instructions and discharged home. Admission/Observation Consideration of admission/observation: Escalation of care including admission/observation considered ( yes) Lab Data MDM Lab Attestation statement: I reviewed the patient's lab results. 09/11/24 18:34 09/11/24 18:34 Labs: Lab Results 09/11/24 09/11/24 09/11/24 Range/Units 17:06 17:39 18:34 WBC 7.5 (4.8-10.8) X10*3/uL RBC 3.84 L (4.60-5.80) X10*6/uL Hgb 10.5 L (14.0-18.0) g/dl Hct 33.6 L (42.0-52.0) % MCV 87.5 (80.0-98.0) fL MCH 27.3 (27.0-33.0) pg MCHC 31.3 (31.0-36.0) g/dl RDW 15.4 (11.0-16.0) % Plt Count 221 D (160-400) X10*3/uL MPV 9.8 (9.4-12.4) fL Immature Gran % (Auto) 0.3 (0.0-0.4) % Neut % (Auto) 78.7 H (45-73) % Lymph % (Auto) 17.5 L (20-40) % [place] % (Auto) 3.5 (2-11) % Eos % (Auto) 0.0 (0-4) % Baso % (Auto) 0.0 (0-2) % Lymph # (Auto) 1.3 (1.2-4.9) X10*3/uL [place] # (Auto) 0.3 (0.1-1.2) X10*3/uL Eos # (Auto) 0.0 (0.0-0.4) X10*3/uL Baso # (Auto) 0.0 (0.0-0.2) X10*3/uL Abs Immat Gran (auto) 0.02 (0.00-0.03) X10*3/uL Absolute Neuts (auto) 5.9 (2.0-8.3) x10*3/uL Absolute Nucleated RBC 0.000 (0.0-0.012) X10*3/uL Nucleated RBC % (auto) 0.0 (0.0-0.2) /100WBC VBG pH (7.32-7.43) VBG pCO2 mmHg VBG pO2 mmHg VBG HCO3 (22-26) mmol/L VBG O2 Saturation % VBG Base Excess mmol/L Sodium 137 (135-145) mmol/L Potassium 4.7 D (3.3-5.1) mmol/L Chloride 101 (96-108) mmol/L Carbon Dioxide 23 (22-29) mmol/L Anion Gap 18 (12-20) BUN 29 H (9-16) mg/dL Creatinine 1.31 (0.5-1.4) mg/dL Estim Creat Clear Calc 90.2 Estimated GFR 56 POC Glucose 360 H* (60-115) mg/dL Random Glucose 379 H* (60-115) mg/dL Calcium 10.0 D (8.4-10.2) mg/dL Magnesium 1.9 (1.6-2.6) mg/dL Total Bilirubin 0.3 (0.0-1.0) mg/dL AST 32 (5-37) U/L ALT 73 H (0-40) U/L Alkaline Phosphatase 75 (39-117) U/L Troponin I High Sens < 2.7 (<3.5-35.0) ng/L Total Protein 8.5 H (6.5-8.0) g/dL Albumin 4.9 (3.5-5.0) g/dL Urine Color Yellow Urine Appearance Clear Urine pH 5.5 (5.0-9.0) Ur Specific [place] 1.025 (1.005-1.025) Urine Protein Negative (Neg-Trace) mg/dL Urine Glucose (UA) >=1000 H (Negative) mg/dL Urine Ketones Negative (Negative) mg/dL Urine Blood Negative (Negative) Urine Nitrite Negative (Negative) Ur Leukocyte Esterase Negative (Negative) Urine RBC 0-2 (0-2) /HPF Urine WBC 0-5 (0-5) /HPF Ur Squamous Epith Cells 0-2 (0-2) /HPF Urine Bacteria None Seen (None Seen) Hyaline Casts 0-2 (0-2) /LPF 09/11/24 09/11/24 Range/Units 18:43 21:10 WBC (4.8-10.8) X10*3/uL RBC (4.60-5.80) X10*6/uL Hgb (14.0-18.0) g/dl Hct (42.0-52.0) % MCV (80.0-98.0) fL MCH (27.0-33.0) pg MCHC (31.0-36.0) g/dl RDW (11.0-16.0) % Plt Count (160-400) X10*3/uL MPV (9.4-12.4) fL Immature Gran % (Auto) (0.0-0.4) % Neut % (Auto) (45-73) % Lymph % (Auto) (20-40) % [place] % (Auto) (2-11) % Eos % (Auto) (0-4) % Baso % (Auto) (0-2) % Lymph # (Auto) (1.2-4.9) X10*3/uL [place] # (Auto) (0.1-1.2) X10*3/uL Eos # (Auto) (0.0-0.4) X10*3/uL Baso # (Auto) (0.0-0.2) X10*3/uL Abs Immat Gran (auto) (0.00-0.03) X10*3/uL Absolute Neuts (auto) (2.0-8.3) x10*3/uL Absolute Nucleated RBC (0.0-0.012) X10*3/uL Nucleated RBC % (auto) (0.0-0.2) /100WBC VBG pH 7.40 (7.32-7.43) VBG pCO2 40 mmHg VBG pO2 59 mmHg VBG HCO3 25 (22-26) mmol/L VBG O2 Saturation 84.0 % VBG Base Excess 1.1 mmol/L Sodium (135-145) mmol/L Potassium (3.3-5.1) mmol/L Chloride (96-108) mmol/L Carbon Dioxide (22-29) mmol/L Anion Gap (12-20) BUN (9-16) mg/dL Creatinine (0.5-1.4) mg/dL Estim Creat Clear Calc Estimated GFR POC Glucose 267 H (60-115) mg/dL Random Glucose (60-115) mg/dL Calcium (8.4-10.2) mg/dL Magnesium (1.6-2.6) mg/dL Total Bilirubin (0.0-1.0) mg/dL AST (5-37) U/L ALT (0-40) U/L Alkaline Phosphatase (39-117) U/L Troponin I High Sens (<3.5-35.0) ng/L Total Protein (6.5-8.0) g/dL Albumin (3.5-5.0) g/dL Urine Color Urine Appearance Urine pH (5.0-9.0) Ur Specific [place] (1.005-1.025) Urine Protein (Neg-Trace) mg/dL Urine Glucose (UA) (Negative) mg/dL Urine Ketones (Negative) mg/dL Urine Blood (Negative) Urine Nitrite (Negative) Ur Leukocyte Esterase (Negative) Urine RBC (0-2) /HPF Urine WBC (0-5) /HPF Ur Squamous Epith Cells (0-2) /HPF Urine Bacteria (None Seen) Hyaline Casts (0-2) /LPF Independent Interpretation I performed an independent interpretation of an: EKG Interpretation: My independent interpretation of patient's l 12 EKG done on 09/11/2024 at 19:09 hours is as follows: Normal sinus rhythm with a rate of 91, normal TN interval, QRS duration QTC interval, no ST segment elevation, no ST segment depression, no significant T-wave abnormalities, no PACs. Compared to EKG dated 05/19/2024 at 07:06 hours, there is no significant change. Independent Historian Clinical information obtained from an independent historian. History obtained from or confirmed by: Other ( friend) External Record Review External record reviewed: Outpatient record Chronic Conditions Patient?s care impacted by: Diabetes and Other ( lung cancer) Critical Care Time Critical Care Time Critical Care Time: Yes Total Critical Care Time: 35 Attestation: Critical Care: The patient was critically ill with a high probability of imminent or life threatening deterioration. I spent greater than 30 minutes of discontinuous time evaluating the patient,delivering critical care at the bedside, discussing and evaluating pertinent data with consultants. Critical care time does not include time spent performing separately billable procedures or teaching. Total time spent performing critical care was 35 minutes. Discharge Plan Discharge Clinical Impression: Type 2 diabetes mellitus, Steroid-induced hyperglycemia Patient Disposition: Home, Self-Care Additional Instructions: Continue taking your metformin in your other medications as prescribed by your providers. Increase your fluid intake to help lower your blood sugar. Try to stay on a very low carbohydrate diet for the next several days to help control your blood sugar. Follow-up with your doctor in 2 days. Please return to the emergency department if your symptoms get worse or if you develop any symptoms that are concerning to you. Prescriptions: No Action Flonase Sensimist 27.5 mcg/actuation spray,suspension 2 spray intranasal DAILY Qty: 6.6 0RF Rx Instructions: into each nostril losartan-hydrochlorothiazide 100-25 mg tablet 1 tab PO DAILY diltiazem HCl 360 mg capsule,extended release 24hr 360 mg PO DAILY atorvastatin 40 mg tablet 40 mg PO DAILY losartan 100 mg tablet 100 mg PO DAILY metformin 1,000 mg tablet 1,000 mg PO BID magnesium oxide 400 mg (241.3 mg magnesium) tablet 400 mg PO DAILY famotidine 20 mg tablet PO pseudoephedrine HCl [Sudafed 12 Hour] 120 mg tablet extended release 120 mg PO Q12H 7 Days Qty: 14 0RF Interventions: ED Discharge Assessment Last Done: 09/11/24 21:42 Discharge Date/Time: 09/11/24 21:43 Print Language: Malay
[2024-09-11 21:17] LABS: Glucose, Whole Blood 267 mg/dL (60-115)
--- NOTE | 2024-09-11 21:17 | PC.NURSE ---
MD aware of poc after ivp insulin and ivf.
[2024-09-11 21:42] VITALS: BP 141/78; PULSE 88; RESP 16; TEMP 36.6; O2SAT 95
== END 2024-09-11 21:43 | disposition home or self-care (01) ==
PROVIDERS: Physician Assistant Medical; Emergency Provider Emergency Medicine Emergency Medical Services; PCP Internal Medicine
DX: E09.65 Drug or chemical induced diabetes mellitus with hyperglycemia (principal); T38.0X5A Adverse effect of glucocorticoids and synthetic analogues, initial encounter; Y92.9 Unspecified place or not applicable; C34.90 Malignant neoplasm of unspecified part of unspecified bronchus or lung; Z79.84 Long term (current) use of oral hypoglycemic drugs; Z79.60 Long term (current) use of unspecified immunomodulators and immunosuppressants
CPT/HCPCS: 36415; 80053; 81001; 82803; 82947; 83735; 84484; 85025; 93005; 96361; 96374; 99285; 99291

== ENCOUNTER → 2024-09-11 18:20 | Outpatient (BNV) | payer MEDICAID, SELFPAY | PROVIDERS: Emergency Provider Emergency Medicine Emergency Medical Services; PCP Internal Medicine; Visit Provider Internal Medicine | DX: R53.1 Weakness (principal) | CPT/HCPCS: 93010 ==

== ENCOUNTER 2024-11-06 10:14 | Outpatient (REF) | payer MEDICAID, SELFPAY ==
--- OUTSIDE RECORDS SUMMARY | 2024-11-01 10:00 | XMS_ITS | Encounter Summary ---
Author Organization [facility] Address [address] [facility] [address] [place] [phone] Phone Care Team Providers Care Eyewear Manufacturing Supervisor Name Role Phone Indigo DuSW Unavailable Grecia Bonilla MD Primary Care Provider Hermelinda Barajas MD Unavailable [phone] Cindi Shell [facility] Unavailable Carlos Alberto King MD, [place] Unavailable [phone] Patria Luevano RN Unavailable [email or web address] Jennie Ferreira RN Unavailable [email or web address] Encounter Details Date Type Department Care Team (Latest Contact Info) Description 11/01/2024 10:00 AM EDT Telemedicine [facility] [address] [place] [address] Thiago Bean MD [address] [place] [address] [email or web address] Paroxysmal atrial fibrillation (Primary Dx); Primary hypertension Social History Tobacco Use Types Packs/Day Years Used Date Smoking Tobacco: Former Cigarettes 1 20 2 002 - 2021 Smokeless Tobacco: Never Alcohol Use Standard Drinks/Week Comments Not Currently 0 (1 standard drink = 0.6 oz pur e alcohol) Education Answer Date Recorded Are you interested in more education? Not on alexy e 06/24/2022 Are you concerned about learning? Not on file 06/24/2022 No 06/24/2022 No 06/24/2022 Digital Access Answer Date Recorded No 07/20/2022 No 07/20/2022 Reliable internet access at home? Not on file 07/20/2022 Device with a working camera? Not on file Intimate Partner Violence Answer Date R ecorded Are you denied basic needs s uch as food, clothing, or medical care? No 09/24/2024 In the past 12 months have y ou been in a relationship with a person who hurts, threatens, or tries to control you? No 09/24/2024 Are you denied basic needs s uch as food, clothing, or medical care? No 09/24/2024 In the past 12 months have y ou been in a relationship with a person who hurts, threatens, or tries to control you? No 09/24/2024 Sex and Gender Information Value Date Recorded Sex Assigned at Male 05/28/2022 1:30 PM EDT Legal Sex Male 9:41 PM EDT Gender Identity Male 05/28/2022 1:04 PM EDT Sexual Orientation Straight 05/28/2022 1: 30 PM EDT documented as of this encounter Last Filed Vital Signs Vital Sign Reading Time Taken Comments Blood Pressure - - Pulse - - Temperature - - Respiratory Rate - - Oxygen Saturation - - Inhaled Oxygen Concentration - - Weight 127 kg (280 lb) 11/01/2024 10:30 AM EDT Height 193 cm (6' 4 ) 11/01/2024 10:30 AM EDT Body Mass Index 34.08 11/01/2024 10:30 AM EDT documented in this encounter Progress Notes * Thiago Bean MD - 11/01/2024 10:00 AM EDT Virtual Visit Attestation Modality: interactive audio (phone only) Provider Location, state disclosed to patient: home / other Patient Location: home Patient State or Country: [place] E&M Billing based on time ([id number]): Yes Total time spent on date of service (min): 20 Time spent with patient during visit (min): 10 I personally spent the total time as documented on care for this patient on the date of the encounter, of which the time spent with the patient during the encounter has been separately documented. I saw Jesse Patrick Sr.?? on 11/01/2024. The patient is a ?59 y.o. male with: Patient Active Problem List Diagnosis Primary lung adenocarcinoma Atrial fibrillation Mr. Patrick has a background history of T2DM, obesity, HTN. Sustained left retinal artery branch occlusion while we receiving chemRx for adenoCA of left lung with involvement of lymph nodes and ? adrenals. Carotid USG negative for athero plaque 05/21 Patch monitor in 324 showed 16% burden of PAF. Had PVI/PWI /Watchman on 10/18/[address] Gallardo The patient reports : No angina No AF Wgt down to 280 lbs from max of 320 lbs PHS CV EP [facility] AF LUCIE: Past Medical History: diabetes and hypertension CHADS-VASc = 2 (2.2% risk of stroke per year) Hypertension (1 point) Diabetes (1 point) Past Medical History ??? Past Medical History: Diagnosis Date Cancer lung Cluster headaches Diabetes Essential (primary) hypertension GERD (gastroesophageal reflux disease) Mixed hyperlipidemia ?? Past Surgical History: Procedure Laterality Date Ablation, Atrial Fibrillation Paroxysmal N/A 10/18/2024 Performed by Guanakito Gallardo MD at [facility] ELECTROPHYSIOLOGY LAB COLONOSCOPY _ Biopsy colon and TI N/A 09/24/2024 Performed by Maude Vides MD, MPH at [facility] GI ESOPHAGOGASTRODUODENOSCOPY + biopsies stomach and duodenum N/A 09/24/2024 Performed by Maude Vides MD, MPH at [facility] GI Left Atrial Appendage Closure (Transvenous) N/A 10/18/2024 Performed by Guanakito Gallardo MD at [facility] ELECTROPHYSIOLOGY LAB Allergies?? Lisinopril Immunzation History Immunization History Administered Date(s) Administered COVID-19 (Pre-12/20) Pfizer Vaccine, mRNA, PF 07/23/2020, 08/13/2020 Medications??? Current Outpatient Medications Medication Instructions acetaminophen (TYLENOL) 500 mg, Oral, 2 times daily atorvastatin (LIPITOR) 20 mg, Daily blood pressure test kit-large Kit pls take BP daily and discuss with PCP dexAMETHasone (DECADRON) 4 MG tablet Take 1 tablet (4 mg) twice daily the day before, day of and day after chemotherapy only. dilTIAZem (CARDIZEM CD) 180 mg, Daily famotidine (PEPCID) 20 MG tablet TAKE 2 TABLETS BY MOUTH TWICE A DAY STOP OMEPRAZOLE folic acid (FOLVITE) 1,000 mcg, Oral, Daily GAS RELIEF, SIMETHICONE, 80 mg chewable tablet CHEW 1 TABLET BY MOUTH EVERY 6 HOURS NEEDED. hydrocortisone 2.5 % cream Topical, 2 times daily insulin aspart U-100 (NOVOLOG) 100 unit/mL (3 mL) injection pen INJECT 4 TO 12 UNITS SUBCUTANEOUSLY3 TIMES A DAY BEFORE MEALS PER SLIDING SCALE insulin glargine 10 Units, Subcutaneous, Daily insulin pen needles, disposable, 32 gauge x 5/32 Ndle 1 each, Miscellaneous, 4 times daily before meals and nightly ketoconazole 2 % cream Topical, Daily, To soles of feet and in between toes, apply this before any moisturizing creams losartan (COZAAR) 100 mg, Daily magnesium oxide (MAG-OX) 400 mg, Oral, Daily metFORMIN (GLUCOPHAGE) 1,000 mg, 2 times daily with meals ondansetron (ZOFRAN) 8 mg, Oral, Every 8 hours PRN prochlorperazine (COMPAZINE) 10 MG tablet TAKE 1 TABLET BY MOUTH EVERY 6 HOURS NEEDED *SEDATING,DO NOT DRIVE* rivaroxaban (XARELTO) 20 mg, Oral, Daily urea 40 % Crea 1 Application, Topical, Daily, To scaly skin on feet Vital Signs Wt Readings from Last 3 Encounters: 11/01/24 127 kg (280 lb) 10/25/24 128.6 kg (283 lb 9.6 oz) 10/23/24 129.3 kg (285 lb 0.9 oz) Temp Readings from Last 3 Encounters: 10/23/24 36.5 ??C (97.7 ??F) (Oral) 10/18/24 36.3 ??C (97.3 ??F) 10/02/24 36.9 ??C (98.4 ??F) (Oral) BP Readings from Last 3 Encounters: 10/25/24 (!) 145/78 10/23/24 138/76 10/18/24 136/81 Pulse Readings from Last 3 Encounters: 10/25/24 95 10/23/24 94 10/18/24 90 Complex Vitals Row Name 11/01/24 1030 Height 193 cm (6' 4 ) Height Method Reported Weight 127 kg (280 lb) Weight Method Reported BMI (Calculated) 34.1 BSA [place] (Calculated - sq m) 2.55 sq meters BSA (Calculated - sq m) 2.61 sq meters Body mass index is 34.08 kg/m??. Physical Exam--NA--audio visit ECG: Encounter Date: 10/18/24 ECG 12-LEAD Result Value Systolic Blood Pressure 140 Diastolic Blood Pressure 85 Ventricular Rate EKG/MIN 93 Atrial Rate 93 HI Interval 198 QRS Duration 94 QT Interval 368 QTC Interval 457 P [place] 66 R Wave [place] 32 T Wave [place] 55 Narrative Normal sinus rhythm Normal ECG When compared with ECG of 25-Sep-2024 12:22, No significant change was found Chemistry Lab Results Component Value Date NA 136 10/23/2024 K 3.9 10/23/2024 CL 98 10/23/2024 CO2 20 (L) 10/23/2024 BUN 20 10/23/2024 CRE 1.18 10/23/2024 GLU 189 (H) 10/23/2024 CA 10.3 10/23/2024 MG 1.6 (L) 10/23/2024 Lab Results Component Value Date TP 8.2 10/23/2024 ALB 4.7 10/23/2024 GLOB 3.5 10/23/2024 SGOT 25 10/23/2024 SGPT 47 (H) 10/23/2024 ALKP 80 10/23/2024 TBILI 0.3 10/23/2024 DBILI <0.2 01/11/2024 Lab Results Component Value Date BUN 20 10/23/2024 CREATININE Date Value Ref Range Status 10/23/2024 1.18 0.50 - 1.20 mg/dL Final WBC Date Value Ref Range Status 10/23/2024 8.20 4.00 - 10.00 K/uL Final HGB Date Value Ref Range Status 10/23/2024 10.0 (L) 13.5 - 18.0 g/dL Final HCT Date Value Ref Range Status 10/23/2024 31.7 (L) 40.0 - 54.0 % Final PLT Date Value Ref Range Status 10/23/2024 259 150 - 450 K/uL Final NT-PROBNP Date Value Ref Range Status 01/11/2024 71 <900 pg/mL Final Comment: Lab Results Component Value Date NTBNP 71 01/11/2024 Problem List Items Addressed This Visit Cardiovascular and Mediastinum Atrial fibrillation - Primary Other Visit Diagnoses Primary hypertension Relevant Imaging Echo (10/26/2024) Basic Findings General Findings The image quality was adequate. This is a question-limited echocardiogram to assess pericardial effusion after EP procedure, hence all structures may not be evaluated or documented. Echo Findings Left Ventricle The left ventricle is normal in size. There is discrete upper septal hypertrophy. There is normal left ventricular systolic function. The LV ejection fraction is 60-65% (visually estimated). There are no wall motion abnormalities. Right Ventricle The right ventricle is normal in size. There is normal right ventricular systolic function. Left Atrium The left atrium is normal in size. Right Atrium The right atrium is normal in size. The IVC is normal in size with normal inspiratory collapse. This is consistent with normal RA pressure. Aortic Valve The aortic valve is not assessed. Mitral Valve The mitral valve is not assessed. Tricuspid Valve The tricuspid valve is not assessed. Pulmonic Valve The pulmonic valve is not assessed. Pericardium There is no pericardial effusion. Conclusions Comparison Findings Compared to prior TTE on 12/20/2023, there are no important changes. Not all structures were compared. Impression The patient is a 59 y.o. male with a history of adenoCA lung Has a hx of PAF--successful ablation (PVI, PWI) and Watchman implant on 10/18/24 Now on DOAC for 3 months I discussed with the patient the following issues: Heart healthy lifestyle Plan My recommendations and plan are as follows: Meds--continue current meds Lifestyle--continue with efforts at sodium reduction and weight reduction in attempt to decrease SBP I spent 20 minutes during this visit; 50% of that time involved counseling of the patient about their condition(s) and treatment. Next visit : will schedule VV (patient's request) for 8 months Future Appointments Date Time Provider Department Center 11/05/2024 3:30 PM [facility]igo [facility] 11/09/2024 10:30 AM CDHCT2 CDHCTMAIN [facility]H Main 11/13/2024 6:30 AM DF LAB SERVICES NURSE DFLRL None 11/13/2024 7:30 AM Hermelinda Barajas MD DFTOP None 11/13/2024 8:30 AM Patria Luevano, BRIELLE DFY9I None 11/16/2024 9:00 AM Andrew Lima MD [facility] Main 01/18/2025 7:35 AM [facility] SYSTEM ROOM BWHMCEKG None 01/18/2025 8:30 AM [facility] PISANO CT1 [facility] Rad Main 02/01/2025 8:40 AM Demetrio Armstrong MD HMCORL [facility] Main 02/25/2025 9:30 AM [facility] CARDIO EP PA CLINIC [facility] Main 10/18/2025 7:05 AM [facility] SYSTEM ROOM [facility] None Sincerely yours, Thiago Bean MD documented in this encounter Plan of Treatment Upcoming Encounters Date Type Department Care Team (Late st Contact Info) Description 09/10/2024 Procedure Pass [address] [address] 09/10/2024 Procedure Pass [address] [address] 10/18/2024 Procedure Pass [facility] [address] [place] [address] 10/23/2024 Procedure Pass [facility] EKG [address] [place] [address] 10/23/2024 Procedure Pass [facility] EKG [address] [place] [address] 11/09/2024 10:30 AM EDT Appointment [address] [address] Hermelinda Barajas MD [address] [phone] [email or web address] 11/13/2024 6:30 AM EDT Blood Draw Laboratory Services, [facility] [address] [facility], 2nd Floor [place], [place] Hermelinda Barajas MD [address] [place] [phone] [email or web address] 11/13/2024 7:30 AM EDT Office Visit [facility], [address] [place] [address] Hermelinda Barajas MD [address] [place] [phone] [email or web address] 11/13/2024 8:30 AM EDT Infusion Infusion Therapy Services [place] [address], [address], [address] [place] [address] Hermelinda Barajas MD [address] [place] [phone] [email or web address] Patria Luevano RN [address] [place] [address] [email or web address] 11/16/2024 9:00 AM EDT Office Visit [facility] of Orthopaedics [address] [place] [address] Andrew Lima MD [address] [place] [address] Department of [place] [address] [email or web address] 01/18/2025 7:35 AM EST Hospital Encounter [facility] EKG [address] [place] [address] Guanakito Gallardo MD [address] [place] [phone] [email or web address] Arrived 01/18/2025 8:30 AM EST Appointment [facility] [address] [place] [address] Odalis Jimenez PA-C [address] [facility] 5th [place] [address] [email or web address] 02/01/2025 8:40 AM EST Office Visit [facility] Otolaryngology [address] [facility]2[address]2 [place] [address] Demetrio Armstrong MD [address] [place] [phone] [email or web address] 02/25/2025 9:30 AM EST Telemedicine [facility] [address] [place] [address] Guanakito Gallardo MD [address] [place] [phone] [email or web address] 07/04/2025 10:00 AM EDT Telemedicine [facility] [address] [place] [address] Thiago Bean MD [address] [place] [phone] [email or web address] 10/18/2025 7:05 AM EDT Hospital Encounter [facility] EKG [address] [place] [address] Guanakito Gallardo MD [address] [place] [phone] Arrived documented as of this encounter Visit Diagnoses Diagnosis Paroxysmal atrial fibrillation- Primary Atrial fibrillation Primary hypertension Unspecified essential hypertension Paroxysmal atrial fibrillation Atrial fibrillation Paroxysmal atrial fibrillation Atrial fibrillation documented in this encounter Care Teams Eyewear Manufacturing Supervisor Relationship Specialty Start Date End Date Grecia Bonilla MD [address] [place] [address] [place] [address] PCP - General Internal Medicine 10/13/22 Indigo Du, [facility] [address] [place] [address] [email or web address] [employer] Oncology 07/27/22 Hermelinda Barajas MD [address] [place] [address] [place] [address] [email or web address] Medical Oncology 11/29/22 Cindi Shell CNP [address] [place] [phone] Fina [email or web address] 11/29/22 Carlos Alberto King MD, [place] [address] [place] [phone] [email or web address] Hospice and Palliative Care 04/05/24 Patria Luevano, BRIELLE [address] [place] [phone] [email or web address] Primary Infusion Nurse 05/15/24 Jennie Ferreira, BRIELLE [address] [place] [phone] [email or web address] Associate Infusion Nurse 10/02/24 documented as of this encounter Additional Source Comments The information contained in this document represents components of the legal health record. It is not the complete legal health record.[facility]
--- OUTSIDE RECORDS SUMMARY | 2024-11-05 15:30 | XMS_ITS | Encounter Summary ---
Author Organization [facility] Address [address] [facility] [address] [place] [phone] Phone Care Team Providers Care Cryptologic Technician Technical Name Role Phone Indigo Du [facility] Unavailable Grecia Bonilla MD Primary Care Provider Hermelinda Barajas MD Unavailable [phone] Cindi Shell [facility] Unavailable Carlos Alberto King MD, [place] Unavailable Patria Luevano RN Unavailable [email or web address] Jennie Ferreira RN Unavailable [email or web address] Encounter Details Date Type Department Care Team (Late st Contact Info) Description 11/05/2024 3:30 PM EDT Social Work Social Work Department, [facility] [address] [address] Hermelinda Barajas MD [address] [place], [place] [address]leonard Hermelinda [address] [place] [address] [email or web address] Indigo Du [facility] [address] [place] [address] [email or web address] Social History Tobacco Use Types Packs/Day Years [...] PM EDT documented as of this encounter Progress Notes * Indigo Du, ADV[employer]ACTICE PROFESSIONAL - 11/05/2024 3:30 PM EDT Social Work Progress Note Date/Time of contact: 11/05/2024 / 3:30 PM Contact with: Patient, Jesse Patrick . Location: Phone Primary Language: [place] Boat Buffer Plastic/IPOP used: Not Applicable, patient's primary language is [place]gu[place] Narrative/intervention: A biposy in 2021 confirmed a diagnosis of metastatic lung adenocarcinoma. In February of 2022 patient began treatment regimen of dabrafenib/trametinib. Patient was unable to tolerate dabrafenib and was receiving trametinib monotherapy. Recent scans showed progression and he began next line of treatment including Carboplatin, Pemetrexed and Pembrolizumab. Currently on maintenance with Pembrolizumab and Pemetrexed. TACOS met with Jesse today to provide supportive counseling. Reported feeling pretty good. Stable mood, no notable changes. Communicated his goal of continuing to lose weight. Acknowledged his awareness that a nutrition consult is available. Spoke about movement/exercise offerings at the [facility] to promote physical and mental health. Expressed hope for good results for upcoming scan. Recently attended a wedding with his partner which he reported enjoying. Continues to check in with resource program teacher. Reflected on his relationship with his son who continues to live with him. Supported him in processing. Themes Discussed: Adjustment to Illness [place] Resource Needs Coping Skills Family Dynamics Plan: Will plan to meet on 11/26 via telehealth (phone). TACOS will continue to provide supportive counseling and psychoeducation to facilitate adjustment and optimize coping. TACOS will remain available for psychosocial support. Jesse was encouraged to reach out as needed and was provided with SW contact information. Will collaborate with interdisciplinary team to support goals of care. Unless otherwise noted, patient/family is in agreement with this plan. HERIBERTO Haddad, JORGE L Clinical Casing [facility] Department of Supportive Oncology [facility] [phone] If you are reading this note, there may be information included to meet documentation standards and/or for compliance reasons. If you have questions about what you see, please bring it up during our visit or reach out by phone. documented in this encounter Plan of Treatment Upcoming Encounters Date Type Department Care Team (Late st Contact Info) Description 09/10/2024 Procedure Pass [facility], Ct Scan [address] [address] 09/10/2024 Procedure Pass [place], Ct Scan [address] [address] 10/18/2024 Procedure Pass [facility] [address] [place] [address] 10/23/2024 Procedure Pass [facility] EKG [address] [place] [address] 10/23/2024 Procedure Pass [facility] EKG [address] [place] [address] 11/09/2024 10:30 AM EDT Appointment [facility], Ct Scan - [facility] [address] [place] [address] Hermelinda Barajas MD [address] [address] [email or web address] 11/13/2024 6:30 AM EDT Blood Draw Laboratory Services, [address], [address] Floor [place], [place] Hermelinda Barajas MD [address] [place] [id number] [email or web address] 11/13/2024 7:30 AM EDT Office Visit [facility], [address] [place] [address] Hermelinda Barajas MD [address] [place] [address] [email or web address] 11/13/2024 8:30 AM EDT Infusion In[facility] [place] [address], [address] [place] [address] Hermelinda Barajas MD [address] [place] [id number] [email or web address] Patria Luevano RN [address] [place], [place] [email or web address] 11/16/2024 9:00 AM EDT Office Visit [facility] Department of Orthopaedics [address] [place] [address] Andrew Lima MD [address] [place] [address] Department [place] [address] [email or web address] 01/18/2025 7:35 AM EST Hospital Encounter [facility] EKG [address] [place] [address] Guanakito Gallardo MD [address] [place] [address] [place] [address] [email or web address] [facility] 01/18/2025 8:30 AM EST Appointment [facility] Radiology [address] [place] [address] Odalis Jimenez PA-C 70 [facility] 5th [place] [address] [email or web address] 02/01/2025 8:40 AM EST Office Visit [facility] Otolaryngology [address] [facility] ASB2-[address] [place] [address] Demetrio Armstrong MD [address] [place] [phone] [email or web address] 02/25/2025 9:30 AM EST Telemedicine [facility] [address] [place] [address] Guanakito Gallardo MD [address] [place] [address] [place] [address] 07/04/2025 10:00 AM EDT Telemedicine [facility] [address] [place] [address] Thiago Bean MD [address] [place] [address] [email or web address] 10/18/2025 7:05 AM EDT Hospital Encounter [facility] EKG [address] [place] [address] Guanakito Gallardo MD [address] [place] [address] [place] [address] [email or web address] Arrived documented as of this encounter Visit Diagnoses Not on filedocumented in this encounter Care Teams Cryptologic Technician Technical Relationship Specialty Start Date End Date Grecia Bonilla MD [address] [place] [address] [place] [phone] PCP - General Internal Medicine 10/13/22 Indigo Du, [facility] [address] [place] [address] [email or web address] Oncology 07/27/22 Hermelinda Barajas MD [address] [place] [address] [place] [address] [email or web address] Medical Oncology 11/29/22 Cindi Shell CNP [address] [place] [address] [place] [address] Fina @[email or web address] Gerontology 11/29/22 Carlos Alberto King MD, [place] [address] [place] [address] [email or web address] Hospice and Palliative Care 04/05/24 Patria Luevano, BRIELLE [address] [place] [address] [email or web address] Primary Infusion Nurse 05/15/24 Jennie Ferreira, RN [address] [place] [address] [email or web address] Associate Infusion Nurse 10/02/24 documented as of this encounter Additional Source Comments The information contained in this document represents components of the legal health record. It is not the complete legal health record.[facility]
--- OUTSIDE RECORDS SUMMARY | 2024-11-06 11:57 | XMS_ITS | Clinical Summary ---
Author Organization [facility] Address [address] [facility] [address] [place] [address] Phone Care Team Providers Care Shipping Helper Name Role Phone Indigo Du PARTY DIRECTOR Unavailable Grecia Baird MD Primary Care Provider Hermelinda Barajas MD Unavailable [phone] Cindi Shell GREEN TIRE INSPECTOR Unavailable [phone] Carlos Alberto King MD, [place] Unavailable Patria Luevano RN Unavailable [email or web address] Jennie Ferreira RN Unavailable [email or web address] Allergies Active Allergy Reactions Criticality Noted Date Comments Lisinopril Nausea Only 09/25/2024 Medications metFORMIN (GLUCOPHAGE) 1000 MG tablet Take 1,000 mg by mouth 2 (two) times a day with meals. Active losartan (COZAAR) 50 MG tablet Take 100 mg by mouth daily. Active dilTIAZem (CARDIZEM CD) 180 MG 24 hr capsule Take 180 mg by mouth daily. Active atorvastatin (LIPITOR) 20 MG tablet Take 20 mg by mouth daily. Active blood pressure test kit-large Kit pls take BP daily and discuss with PCP 1 kit 023 Active GAS RELIEF, SIMETHICONE, 80 mg chewable tablet CHEW 1 TABLET BY MOUTH EVERY 6 HOURS NEEDED. 60 tablet 2 024 Active ketoconazole 2 % cream APPLY TOPICALLY DAILY. TO SOLES OF FEET AND IN BETWEEN TOES, APPLY THIS BEFORE ANY MOISTURIZING CREAMS 60 g 11 024 Active ondansetron (ZOFRAN) 8 MG tablet Take 1 tablet (8 mg total) by mouth every 8 (eight) hours as needed for nausea. 30 tablet 3 024 Active hydrocortisone 2.5 % cream Apply topically 2 (two) times a day. 20 g 3 024 Active folic acid (FOLVITE) 1 MG tablet Take 1 tablet (1,000 mcg total) by mouth daily. 90 tablet 1 025 Active magnesium oxide (MAG-OX) 400 mg (241.3 mg elemental) tablet Take 1 tablet (400 mg total) by mouth daily. 90 tablet 1 025 Active famotidine (PEPCID) 20 MG tablet TAKE 2 TABLETS BY MOUTH TWICE A DAY STOP OMEPRAZOLE 360 tablet 025 Active urea 40 % Crea Apply 1 Application topically daily. To scaly skin on feet 198.4 g 11 025 Active acetaminophen (TYLENOL) 500 MG tablet TAKE 1 TABLET BY MOUTH TWICE A DAY 60 tablet 3 025 Active prochlorperazine (COMPAZINE) 10 MG tablet TAKE 1 TABLET BY MOUTH EVERY 6 HOURS NEEDED *SEDATING, DO NOT DRIVE* 30 tablet 025 Active dexAMETHasone (DECADRON) 4 MG tablet Take 1 tablet (4 mg) twice daily the day before, day of and day after chemotherapy only. 30 tablet 1 025 Active rivaroxaban (XARELTO) 20 mg TabIndications:P aroxysmal atrial fibrillation Take 1 tablet (20 mg total) by mouth daily. 90 tablet 1 025 Active insulin aspart U-100 (NOVOLOG) 100 unit/mL (3 mL) injection pen INJECT 4 TO 12 UNITS SUBCUTANEOUSLY 3 TIMES A DAY BEFORE MEALS PER SLIDING SCALE 025 Active insulin glargine 100 unit/mL (3 mL) InPn injection penIndications:T ype 2 diabetes mellitus with hyperglycemia, with long-term current use of insulin Inject 10 Units under the skin daily. 15 mL 3 025 Active insulin pen needles, disposable, 32 gauge x NdleIndications: Type 2 diabetes mellitus with hyperglycemia, with long-term current use of insulin,Primary adenocarcinoma of lung, unspecified laterality,Vitam in D deficiency, unspecified,Anem ia, unspecified type 1 each by Miscellaneous route 4 (four) times a day before meals and nightly. 100 each 5 025 Active OMEPRAZOLE MAGNESIUM ORAL Take 20 mg by mouth daily. 2024 Discontinued ibuprofen (ADVIL,MOTRIN) 400 MG tablet Take 400 mg by mouth every 6 (six) hours as needed for pain (specific location in comments). 2024 Discontinued(N o longer taking) aspirin 81 MG EC tablet Take 81 mg by mouth daily. 2024 Discontinued(N o longer taking) ammonium lactate (AMLACTIN) 12 % cream APPLY TOPICALLY NEEDED. TO SCALY SKIN ON FEET AND LEGS AFTER ANTIFUNGAL CREAM 280 g 11 024 2024 Discontinued(N o longer taking) Active Problems Patient Care Coordination No te Formatting of this note migh t be different from the original. 06/18/2022 Abdirahman Leon gave verbal permission for staff to speak to his life partner, Ana Morton, at any time re diagnosis, treatment and prognosis. Abdirahman asked for a referral to [employer]. This agency supplies home health aides. Phone no. = [phone] ex. [phone] and Fax = [phone]. SCHEDULING - PLEASE CALL PATIENT TO SCHEDULE APPTS, DOES NOT LIKE PATIENT GATEWAY TO SCHEDULE Oxygen supplier is [facility]. and Problem Noted Date Diagnosed Date Atrial fibrillation 10/18/2024 Primary lung adenocarcinoma 06/15/2022 Encounters Date Type Department Care Team Description 11/06/19 3:30 PM EDT Social Work Social Work Department, [facility] [place] [facility] [place] [address] [address] Hermelinda Barajas MD Levine, Mariah, LICSW 11/02/19 25 10:00 AM EDT Telemedicine [facility] Cardiovascular Clinic [address] [place] [address] Antman, Thiago Mihai, MD Paroxysmal atrial fibrillation (Primary Dx); Primary hypertension 10/31/19 Telephone [facility] Endocrinology [address] [place] [address] Rika Butts DM Device Orders (Freestyle Nadir 3 plus) 10/26/19 10:00 AM EDT Office Visit [facility] DIABETES MEDICINE [address] [place] [address] Frank Partida MD Type 2 diabetes mellitus with hyperglycemia, with long-term current use of insulin (Primary Dx); Primary adenocarcinoma of lung, unspecified laterality; Vitamin D deficiency, unspecified; Anemia, unspecified type 10/25/19 Telephone [facility] [place] [facility], [address], [address] [place] [address] Helena Garnica RN Symptom Management 10/24/19 8:30 AM EDT Infusion [facility] [place] [facility], [address], [address] [place] [address] Hermelinda Barajas MD Viola, Olimpia, RN Primary adenocarcinoma of lung, unspecified laterality (Primary Dx) 10/24/19 7:30 AM EDT Office Visit [facility], [facility] [address] [facility], [address] [place] [address] Cindi Shell CNP Primary adenocarcinoma of lung, unspecified laterality (Primary Dx) 10/24/19 Orders Only [facility] EKG [address] [place] [address] Guanakito Gallardo MD Paroxysmal atrial fibrillation (Primary Dx) 10/21/19 Documentation [facility] Cardiology [address] [place] [address] Geraldine Ngo PA-C 10/20/19 Telephone [facility] Cardi[facility] Clinic [address] [place] [address] Melanie Cruz PA-C Antonellis/pt returning call 10/20/19 25 Telemedicine [facility] Cardiology [address] [place] [address] Melanie Cruz PA-C Paroxysmal atrial fibrillation (Primary Dx) 10/19/19 11:27 AM EDT Anesthesia Event [facility] Electrophysiology Lab [address] [place] [address] Zain Carmona MD Sohn, CRICKET Spence 10/19/19 11:10 AM EDT - 10/19/19 4:20 PM EDT Surgery [facility] Electrophysiology Lab [address] [place] [address] Guanakito Gallardo MD Ablation, Atrial Fibrillation Paroxysmal 10/19/19 9:01 AM EDT - 10/19/19 7:22 PM EDT Hospital Encounter [facility] L2 PRU [address] [place] [address] Guanakito Gallardo MD Discharge Disposition: Home or Self Care 10/19/19 8:49 AM EDT - 10/19/19 9:00 AM EDT Hospital Encounter [facility] Phlebotomy Admitting [address] [place] [address] Discharge Disposition: Home or Self Care 10/19/19 25 Procedure Pass [facility] Echocardiography [address] [place] [address] 10/19/19 25 Procedure Pass [facility] Electrophysiology Lab [address] [place] [address] 10/18/19 2:20 PM EDT - 10/18/19 11:59 PM EDT Hospital Encounter [facility] Radiology [address] [place] [address] Yeimy Holder PA-C Discharge Disposition: Home or Self Care 10/18/19 25 Procedure Pass [facility] Radiology [address] [place] [address] 10/18/19 25 Ancillary Orders [facility] Cardiology [address] [place] [address] Yeimy Holder PA-C Retinal artery occlusion (Primary Dx); Paroxysmal atrial fibrillation 10/17/19 1:30 PM EDT Social Work [facility] [place] [facility] [address] [address] Hermelinda Barajas MD Levine, Mariah PARTY DIRECTOR 10/03/19 9:30 AM EDT [facility]fusion [facility] [address] [facility], [address] [place] [address] Hermelinda Barajas MD Viola, Olimpia, RN Primary adenocarcinoma of lung, unspecified laterality (Primary Dx) 10/03/19 8:30 AM EDT Office Visit [facility], [facility] [address] [facility], [address] [place] [address] Cindi Shell CNP Primary adenocarcinoma of lung, unspecified laterality (Primary Dx) 09/28/19 Orders Only [facility] Cardiology [address] [place] [address] Kirsten Coleman PA-C Paroxysmal atrial fibrillation (Primary Dx) 09/28/19 [facility], [facility] [address] [facility], [address] [place] [address] Cindi Shell CNP Med Change Request 09/26/19 11:30 AM EDT Office Visit [facility] Cardiovascular Clinic [address] [place] [address] Thiago Bean MD Paroxysmal atrial fibrillation (Primary Dx) 09/26/19 Procedure Pass [facility] Rad[facility] [address] [place] [address] 09/26/19 Orders Only [facility] Cardiology [address] [place] [address] Yeimy Holder PA-C Retinal artery occlusion (Primary Dx); Paroxysmal atrial fibrillation 09/26/19 Telephone [facility] Cardiovascular Clinic [address] [place] [address] Thiago Bean MD Telephone Exchange Operator Call 09/26/19 Telephone [facility] Cardiovascular Clinic [address] [place] [address] Guanakito Gallardo MD Tadros/ Order 09/25/19 25 1:00 PM EDT Social Work Social Work Department, [facility] [place] [facility] [place] [address] [facility] 4th [place] [address] Hermelinda Barajas MD Levine, Mariah, PARTY DIRECTOR 09/25/19 25 7:42 AM EDT Anesthesia Event [facility] Endoscopy Department [address] [place] [address] Renata Bettencourt MD Brito, Bianca, BRIELLE 09/25/19 7:30 AM EDT - 09/25/19 25 8:10 AM EDT Surgery [facility] Endoscopy Department [address] [place] [address] Isaiah Vides MD, MPH ESOPHAGOGASTRODUODENOSCOPY + biopsies stomach and duodenum 09/25/19 25 6:59 AM EDT - 09/25/19 25 9:20 AM EDT Hospital Encounter [facility] Endoscopy Department [address] [place] [address] Isaiah Vides MD, MPH Discharge Disposition: Home or Self Care 09/25/19 25 Orders Only [facility] Cardiovascular Clinic [address] [place] [address] Thiago Bean MD 09/25/19 25 Procedure Pass [facility] Endoscopy Department [address] [place] [address] 09/24/19 25 Refill [facility] Medical Specialties [address] [facility]2 [place] [address] Isaiah Vides MD, MPH Medication Refill 09/24/[address] [facility], [facility] [place] [address] [facility], 9th [place] [address] Cindi Shell CNP Medication Refill 09/13/19 25 Telephone [facility] [place] [address], [facility] [address] [facility], 10th [place] [address] Helena Garnica, RN Care Coordination; Symptom Management 09/12/19 25 8:30 AM EDT Infusion [facility] [place] [facility], [facility] [address] [facility], [address] [place] [address] Hermelinda Barajas MD Devitt, Suzanne Brigid, BRIELLE Primary adenocarcinoma of lung, unspecified laterality (Primary Dx) 09/12/19 Orders Only [facility], [facility] [address] [facility], [address] [place] [address] Hermelinda Barajas MD 09/11/19 3:30 PM EDT Telemedicine [facility] Thoracic Oncology, [address], [address] [place] [address] Hermelinda Barajas MD Primary adenocarcinoma of lung, unspecified laterality (Primary Dx); Encounter for long-term (current) use of medications 09/11/19 12:07 PM EDT - 09/11/19 11:59 PM EDT Hospital Encounter [facility], [facility] [address] [place] [address] Hermelinda Barajas MD Discharge Disposition: Home or Self Care 09/05/19 10:30 AM EDT Social Work Social Work Department, [facility] [place] [address] [facility] [address] [place] [address] Hermelinda Barajas MD Levine, Mariah, LICSW 09/04/19 Telephone [facility], [address], [address] [place] [address] Patria Mar, RN Check in 08/28/19 Telephone [facility], [facility] [address] [facility], [address] [place] [address] Patria Mar, RN 08/28/19 Telephone [facility], [facility] [address] [facility], [address] [place] [address] Patria Mar RN Legs buckling 08/22/19 8:30 AM EDT Infusion [facility] [address] [facility], 9th [place] [address] Hermelinda Barajas MD Devitt, Patria Wood, BRIELLE Primary adenocarcinoma of lung, unspecified laterality (Primary Dx) 08/22/19 7:30 AM EDT Office Visit [facility], [facility] [address] [facility], 9th [place] [address] Cindi Shell CNP Primary adenocarcinoma of lung, unspecified laterality (Primary Dx) 08/15/19 3:30 PM EDT Social Work Social Work Department, [facility] [place] [address] [facility] 4th [place] [address] Hermelinda Barajas MD Levine, Mariah [facility] 08/10/19 25 Refill [facility], [facility] [address] [facility], [address] [place] [address] Tarah Woodard CNP Medication Refill 07/18/19 25 Procedure Pass [address] [address] 07/18/19 25 Procedure Pass [address] [address] from Last 3 Months Family History Medical History Relation Comments Cancer Neg Hx Social History Tobacco Use Types Packs/Day Years Used Date Smoking Tobacco: Former Cigarettes 1 20 2 002 - 2021 Smokeless Tobacco: Never Tobacco Cessation:Counseling Given: Not Answered Alcohol Use Standard Drinks/Week Comments Not Currently [...] Orientation Straight 05/28/2022 1: 30 PM EDT Last Filed Vital Signs Vital Sign Reading Time Taken Comments Blood Pressure 145/78 10/25/2024 10:26 AM EDT Pulse 95 10/25/2024 10:26 AM EDT Temperature 36.5 C (97.7 F) 10/23/2024 7:24 AM EDT Respiratory Rate 19 10/23/2024 7:24 AM EDT Oxygen Saturation 97% 10/25/2024 10:26 AM EDT Inhaled Oxygen Concentration - - Weight 127 kg (280 lb) 11/01/2024 10:30 AM EDT Height 193 cm (6' 4 ) 11/01/2024 10:30 AM EDT Body Mass Index 34.08 11/01/2024 10:30 AM EDT Plan of Treatment Upcoming Encounters Date Type Department Care Team (Late st Contact Info) Description 09/10/2024 Procedure Pass [facility], [address] [address] 09/10/2024 Procedure Pass [facility], [address] [address] 10/18/2024 Procedure Pass [facility] [address] [place] [address] 10/23/2024 Procedure Pass [facility] EKG [address] [place] [address] 10/23/2024 Procedure Pass [facility] EKG [address] [place] [address] 11/09/2024 10:30 AM EDT Appointment [facility], [facility] [address] [place] [address] Hermelinda Barajas MD [address] [address] [email or web address] 11/13/2024 6:30 AM EDT Blood Draw Laboratory Services, [facility] [address] [facility], 2nd [place] [address] Hermelinda Barajas MD [address] [address] [email or web address] 11/13/2024 7:30 AM EDT Office Visit [facility], [facility] [address] [facility], 9th [place] [address] Hermelinda Barajas MD [address] [address] [email or web address] 11/13/2024 8:30 AM EDT Infusion [facility] [place] [facility], [facility] [address] [facility], 9th [place] [address] Hermelinda Barajas MD [address] [address] [email or web address] Patria Luevano, BRIELLE [address] [place] [address] [email or web address] 11/16/2024 9:00 AM EDT Office Visit [facility] Department of Orthopaedics [address] [place] [address] Andrew Lima MD [address] [place] [address] Department [place] [address] [email or web address] 01/18/2025 7:35 AM EST Hospital Encounter [facility] EKG [address] [place] [address] Guanakito Gallardo MD [address] [place] [address] [place] [address] [email or web address] Arrived 01/18/2025 8:30 AM EST Appointment [facility] Radiology [address] [place] [address] Odalis Jimenez PA-C [address] [place] [address] 5th [place] [address] [email or web address] 02/01/2025 8:40 AM EST Office Visit [facility] Otolaryngology 45 [facility] [address]2 [place] [address] Demetrio Armstrong MD [address] [place] [phone] [email or web address] 02/25/2025 9:30 AM EST Telemedicine [facility] Cardiovascular Clinic [address] [place] [address] Guanakito Gallardo MD [address] [place] [address] [place] [address] [email or web address] 07/04/2025 10:00 AM EDT Telemedicine [facility] Cardiovascular Clinic [address] [place] [address] Thiago Bean MD [address] [place] [address] [email or web address] 10/18/2025 7:05 AM EDT Hospital Encounter [facility] EKG [address] [place] [address] Guanakito Gallardo MD [address] [place] [address] [place] [address] [email or web address] Arrived Health Maintenance Due Date Last Done Comments LIPID PANEL 1965 DEPRESSION SCREENING 1977 HIV ONE-TIME SCREENING (18-65 YEARS) 1983 COLOGUARD 2010 FIT TEST 2010 FOBT 2010 SIGMOIDOSCOPY 2010 VIRTUAL COLONOSCOPY 2010 ZOSTER VACCINES (2 of 2) 01/17/2024 11/22/2023 INFLUENZA VACCINE (#1) 2024 11/08/2023, 2022 COVID-19 VACCINE (3 - season) 2024 08/13/2020, 07/23/2020 BLOOD PRESSURE 04/27/2025 10/25/2024 SMOKING Hx and SMOKELESS TOBACCO SCREENING 09/25/2025 09/25/2024 CREATININE LEVEL 10/23/2025 10/23/2024, , 10/02/2024, Additional history exists POTASSIUM LEVEL 10/23/2025 10/23/2024, 0802/2024, 10/02/2024, Additional history exists SCREENING FOR DIABETES 10/26/2027 10/25/2024, 2024 Adult Td,Tdap Booster 12/04/2033 12/05/2023 , 12/27/2018, 12/01/2011 COLONOSCOPY 09/24/2034 09/24/2024 COLORECTAL CANCER SCREENING 09/24/2034 HEPATITIS C SCREENING Completed 07/20/2022 PNEUMOCOCCAL VACCINES (50+ years) Completed 10/30/2022 HEPATITIS A VACCINES Aged Out No long er eligible based on patient's age to complete this topic HIB VACCINES Aged Out No longer eligi ble based on patient's age to complete this topic MENINGOCOCCAL VACCINES (ACWY) Aged Out No longer eligible based on patient's age to complete this topic MENINGOCOCCAL VACCINES (B) Aged Out N o longer eligible based on patient's age to complete this topic Medical Devices Implanted Type Area Iron Worker Device Identifier Shelf Expiration Date Model / Serial / Lot Device Watchman 24mm Flx Pro Saskia Closure - [id number] Implanted:Qt y: 1 on 10/18/2024 by Guanakito Gallardo MD at [facility] SASKIA Occluder N/A: Left Atrial Appendage Add2paper LINDA [id number] 08/22/2027 [id number] / / [id number] Procedures Procedure Name Priority Date/Time Associated Diagnosis Comments POCT GLUCOSE Routine 10/25/2024 10:24 AM EDT POCT HEMOGLOBIN A1C Routine 10/25/2024 10:21 AM EDT MAGNESIUM Routine 10/23/2024 7:15 AM EDT Primary adenocarcinoma of lung, unspecified laterality TSH Routine 10/23/2024 7:15 AM EDT Primary adenocarcinoma of lung, unspecified laterality Encounter for long-term (current) use of medications FREE T4 Routine 10/23/2024 7:15 AM EDT Primary adenocarcinoma of lung, unspecified laterality Encounter for long-term (current) use of medications COMPREHENSIVE METABOLIC PANEL Routine 7:15 AM EDT Primary adenocarcinoma of lung, unspecified laterality HC BLOOD COUNT COMPLETE AUTO&AUTO DIFRNTL WBC Routine 10/23/2024 7:15 AM EDT Primary adenocarcinoma of lung, unspecified laterality POCT GLUCOSE Routine 10/18/2024 6:50 PM EDT TTE LIMITED W/ COLOR FLOW AN D LIMITED DOPPLER Routine 10/18/2024 3:52 PM EDT Pericardial effusion (noninflammatory) POCT GLUCOSE Routine 10/18/2024 3:15 PM EDT ECG 12-LEAD Routine 10/18/2024 3:09 PM EDT EP STUDY Routine 10/18/2024 2:35 PM EDT Retinal artery occlusion Paroxysmal atrial fibrillation EP STUDY Routine 10/18/2024 2:35 PM EDT Retinal artery occlusion Paroxysmal atrial fibrillation POCT ACTIVATED CLOTTING TIME , HEMOCHRON Routine 10/18/2024 1:56 PM EDT POCT ACTIVATED CLOTTING TIME , HEMOCHRON Routine 10/18/2024 1:28 PM EDT POCT ACTIVATED CLOTTING TIME , HEMOCHRON Routine 10/18/2024 1:03 PM EDT POCT ACTIVATED CLOTTING TIME , HEMOCHRON Routine 10/18/2024 12:38 PM EDT AIRWAY PLACEMENT Routine 10/18/2024 11:45 AM EDT TYPE AND SCREEN (ABO,RH,ANTIBODY SCREEN) STAT 10/18/2024 8:52 AM EDT PTT STAT 10/18/2024 8:52 AM EDT PT-INR STAT 10/18/2024 8:52 AM EDT CBC AND DIFFERENTIAL STAT 10/18/2024 8:52 AM EDT BASIC METABOLIC PANEL STAT 10/18/2024 8:[address] YUSUF O CHEST Routine 10/17/2024 2:50 PM EDT Retinal artery occlusion Paroxysmal atrial fibrillation CT CARDIAC WITH CONTRAST Routine 025 2:50 PM EDT Retinal artery occlusion Paroxysmal atrial fibrillation COMPREHENSIVE METABOLIC PANEL STAT 9:47 AM EDT Primary adenocarcinoma of lung, unspecified laterality FREE T4 Routine 10/02/2024 7:26 AM EDT Primary adenocarcinoma of lung, unspecified laterality Encounter for long-term (current) use of medications TSH Routine 10/02/2024 7:26 AM EDT Primary adenocarcinoma of lung, unspecified laterality Encounter for long-term (current) use of medications MAGNESIUM Routine 10/02/2024 7:26 AM EDT Primary adenocarcinoma of lung, unspecified laterality COMPREHENSIVE METABOLIC PANEL Routine 7:26 AM EDT Primary adenocarcinoma of lung, unspecified laterality HC BLOOD COUNT COMPLETE AUTO&AUTO DIFRNTL WBC Routine 10/02/2024 7:26 AM EDT Primary adenocarcinoma of lung, unspecified laterality ECG 12-LEAD Routine 09/25/2024 12:22 PM EDT COLONOSCOPY 09/24/2024 7:41 AM EDT Generalized abdominal pain Special Needs 09/05/24 pt called to confirm appt jco09/05/24 called pt to confirm appt, lvm. dr6/5 pt confirmed apt and aware ppe on 09/17 is cancelled.MS07/02/24 pt - and GF called to r.s due to not receiving prep - r/s sent updated prep pg steve 06/27/24 Golytely pr ep instruct sent in [facility] - Procedure, 75 [address] ESOPHAGOGASTRODUODENOSCOPY 09/24 7:41 AM EDT Generalized abdominal pain Special Needs 09/05/24 pt called to confirm appt jco09/05/24 called pt to confirm appt, lvm. dr6/5 pt confirmed apt and aware ppe on 09/17 is cancelled.MS07/02/24 pt - and GF called to r.s due to not receiving prep - r/s sent updated prep pg steve 06/27/24 Darlin pr ep instruct sent in [facility] - Procedure, 75 [address] POCT GLUCOSE Routine 09/24/2024 7:34 AM EDT ENDOSCOPY PROCEDURE 09/24/2024 7:14 AM EDT ENDOSCOPY, COLON 09/24/2024 7:13 AM EDT ANATOMIC PATHOLOGY Routine 09/24/2024 12:00 AM EDT TSH Routine 09/11/2024 6:48 AM EDT Malignant neoplasm of lung, unspecified laterality, unspecified part of lung FREE T4 Routine 09/11/2024 6:48 AM EDT Malignant neoplasm of lung, unspecified laterality, unspecified part of lung MAGNESIUM Routine 09/11/2024 6:48 AM EDT Malignant neoplasm of lung, unspecified laterality, unspecified part of lung COMPREHENSIVE METABOLIC PANEL Routine 6:48 AM EDT Malignant neoplasm of lung, unspecified laterality, unspecified part of lung HC BLOOD COUNT COMPLETE AUTO&AUTO DIFRNTL WBC Routine 09/11/2024 6:48 AM EDT Malignant neoplasm of lung, unspecified laterality, unspecified part of lung CT ABDOMEN/PELVIS WITH CONTRAST Routine 09/10/2024 12:27 PM EDT Malignant neoplasm of lung, unspecified laterality, unspecified part of lung CT CHEST WITH CONTRAST Routine 12:27 PM EDT Malignant neoplasm of lung, unspecified laterality, unspecified part of lung MAGNESIUM Routine 08/21/2024 6:51 AM EDT Malignant neoplasm of lung, unspecified laterality, unspecified part of lung TSH Routine 08/21/2024 6:51 AM EDT Malignant neoplasm of lung, unspecified laterality, unspecified part of lung Encounter for long-term (current) use of medications FREE T4 Routine 08/21/2024 6:51 AM EDT Malignant neoplasm of lung, unspecified laterality, unspecified part of lung Encounter for long-term (current) use of medications COMPREHENSIVE METABOLIC PANEL Routine 6:51 AM EDT Malignant neoplasm of lung, unspecified laterality, unspecified part of lung HC BLOOD COUNT COMPLETE AUTO&AUTO DIFRNTL WBC Routine 08/21/2024 6:51 AM EDT Malignant neoplasm of lung, unspecified laterality, unspecified part of lung HEPATITIS C ANTIBODY WITH REFLEX TO HCV, RNA QUANTITATIVE REAL-TIME PCR Routine 07/20/2022 7:26 AM EDT Primary adenocarcinoma of lung, unspecified laterality Transaminitis from Last 3 Months or Most Recently Relevant to Health Maintenance Results * (ABNORMAL) POCT Glucose (10/25/2024 10:24 AM EDT) Only the most recent of4 resultswithin the time period is included. Glucose, POCT 165(H) 70 - 100 mg/dL [facility] 10/25/2024 10:2 4 AM EDT 10/25/2024 10:25 AM EDT Frank Partida MD POINT OF CARE TEST ORDERABLES Fi nal Result [address] [address] * (ABNORMAL) POCT Hemoglobin A1c (10/25/2024 10:21 AM EDT) HGB A1C 6.8(H) 4.2 - 5.6 % [facility] Comment:HbA1c levels 5.7-6.4 % represent pre-diabetes, indicating impaired glucose control and an increased risk of developing diabetes. The diagnostic HbA1c level for diabetes is 6.5% or greater. HbA1c levels <4.2% may indicate a hemoglobinopathy or anemia, and an alternative method is recommended to monitor glucose control. 10/25/2024 10:2 1 AM EDT 10/25/2024 10:32 AM EDT us Frank Partida MD POINT OF CARE TEST ORDERABLES Fi nal Result [address] [address] * (ABNORMAL) Comprehensive metabolic panel (10/23/2024 7:15 AM EDT) Only the most recent of5 resultswithin the time period is included. SODIUM 136 136 - 145 mmol/L [facility] LIC# [id number] POTASSIUM 3.9 3.4 - 5.1 mmol/L [facility] LIC# [id number] CHLORIDE 98 98 - 107 mmol/L [facility] LIC# [id number] CO2 20(L) 22 - 31 mmol/L [facility] LIC# [id number] BUN 20 6 - 23 mg/dL [facility] LIC# [id number] CREATININE 1.18 0.50 - 1.20 mg/dL [facility] LIC# [id number] GLUCOSE 189(H) 70 - 100 mg/dL [facility] LIC# [id number] ALBUMIN 4.7 3.5 - 5.2 g/dL [facility] LIC# [id number] TOTAL PROTEIN 8.2 6.4 - 8.3 g/dL [facility] LIC# [id number] CALCIUM 10.3 8.8 - 10.7 mg/dL [facility] LIC# [id number] ALKALINE PHOSPHATASE 80 40 - 129 U/L [facility] LIC# [id number] TOTAL BILIRUBIN 0.3 0.2 - 1.2 mg/dL [facility] LIC# [id number] AST 25 <41 U/L [facility] LIC# [id number] ALT 47(H) <42 U/L [facility] LIC# [id number] GLOBULIN 3.5 2.3 - 4.2 g/dL [facility] LIC# [id number] EGFR 71 >59 mL/min/1.7 3m2 [facility] LIC# [id number] Comment:Estimated glomerular filtration rate calculated using the CKD-EPI refit equation. ANION GAP 18(H) 7 - 17 mmol/L [facility] LIC# [id number] Blood 10/23/2024 7:15 AM EDT 10/23/2024 7:18 AM EDT us Hermelinda Barajas MD LAB BLOOD ORDERABLES Final Resu lt [facility] LIC# [id number] [address] [place] [address] * (ABNORMAL) CBC and differential (10/23/2024 7:15 AM EDT) Only the most recent of5 resultswithin the time period is included. WBC 8.20 4.00 - 10.00 K/uL [facility] LIC# [id number] RBC 3.65(L) 4.50 - 6.40 M/uL [facility] LIC# [id number] HGB 10.0(L) 13.5 - 18.0 g/dL [facility] LIC# [id number] HCT 31.7(L) 40.0 - 54.0 % [facility] LIC# [id number] PLT 259 150 - 450 K/uL [facility] LIC# [id number] MCV 86.8 80.0 - 100.0 fL [facility] LIC# [id number] MCH 27.4 27.0 - 32.0 pg [facility] LIC# [id number] MCHC 31.5(L) 32.0 - 36.0 g/dL [facility] LIC# [id number] RDW 15.8(H) 11.5 - 14.5 % [facility] LIC# [id number] MPV 9.7 8.4 - 12.0 fL [facility] LIC# [id number] NRBC 0.00 0 /100 WBCs [facility] LIC# [id number] ABSOLUTE NRBC 0.00 0 K/uL [facility] LIC# [id number] DIFF METHOD Auto [facility] LIC# [id number] NEUTS 71.6 48.0 - 76.0 % [facility] LIC# [id number] LYMPHS 20.5 18.0 - 41.0 % [facility] LIC# [id number] MONOS 7.6 4.0 - 11.0 % [facility] LIC# [id number] EOS 0.0 0.0 - 5.0 % [facility] LIC# [id number] BASOS 0.1 0.0 - 1.5 % [facility] LIC# [id number] % IMMATURE GRANS 0.2 0.0 - 1.0 % [facility] LIC# [id number] ABSOLUTE NEUTS 5.87 1.92 - 7.60 K/uL [facility] LIC# [id number] ABSOLUTE LYMPHS 1.68 0.72 - 4.10 K/uL [facility] LIC# [id number] ABSOLUTE MONOS 0.62 0.16 - 1.10 K/uL [facility] LIC# [id number] ABSOLUTE EOS 0.00 0.00 - 0.50 K/uL [facility] LIC# [id number] ABSOLUTE BASOS 0.01 0.00 - 0.15 K/uL [facility] LIC# [id number] ABS IMMATURE GRANS 0.02 0.00 - 0.10 K/uL [facility] LIC# [id number] Blood 10/23/2024 7:15 AM EDT 10/23/2024 7:18 AM EDT us Hermelinda Barajas MD LAB BLOOD ORDERABLES Final Resu lt [facility] LIC# [id number] [address] [place] [address] * TSH (10/23/2024 7:15 AM EDT) Only the most recent of4 resultswithin the time period is included. TSH 0.78 0.27 - 4.20 uIU/mL [facility] LIC# [id number] Blood 10/23/2024 7:15 AM EDT 10/23/2024 7:18 AM EDT Hermelinda Barajas MD LAB BLOOD ORDERABLES Final Resu lt Performing Organization Address [facility] Co de Phone Number [facility] LIC# [id number] [address] [place] [address] * Free T4 (10/23/2024 7:15 AM EDT) Only the most recent of4 resultswithin the time period is included. FREE T4 1.1 0.9 - 1.7 ng/dL [facility] LIC# [id number] Blood 10/23/2024 7:15 AM EDT 10/23/2024 7:18 AM EDT us Hermelinda Barajas MD LAB BLOOD ORDERABLES Final Resu lt Performing Organization Address [facility] Co de Phone Number [facility] LIC# [id number] [address] [place] [address] * (ABNORMAL) Magnesium (10/23/2024 7:15 AM EDT) Only the most recent of4 resultswithin the time period is included. MAGNESIUM 1.6(L) 1.7 - 2.6 mg/dL [facility] LIC# [id number] Blood 10/23/2024 7:15 AM EDT 10/23/2024 7:18 AM EDT us Hermelinda Barajas MD LAB BLOOD ORDERABLES Final Resu lt Performing Organization Address [facility]/ZIP Co de Phone Number [facility] LIC# [id number] [address] [place] [address] * TTE LIMITED W/ COLOR FLOW AND LIMITED DOPPLER (10/18/2024 3:52 PM EDT) Ejection Fraction 60 50 - 75 % Anatomical Region Laterality Modality Heart BHECH Addenda Addendum by Shannon Way MD on 10/26/2024 9:55 AM EDT There is no pericardial effusion. Left Ventricle The left ventricle is normal [...] This is consistent with normal RA pressure. Mitral Valve The mitral valve is not assessed. Tricuspid Valve The tricuspid valve is not assessed. Aortic Valve The aortic valve is not assessed. Pulmonic Valve The pulmonic valve is not assessed. Pericardium There is no pericardial effusion. General Findings The image quality was adequate. This is a question-limited echocardiogram to assess pericardial effusion after EP procedure, hence all structures may not be evaluated or documented. Comparison Findings Compared to prior TTE on 12/20/2023, there are no important changes. Not all structures were compared. us Pari Rivera MD CV ECHO ORDERABLES Edited Result - Final * ECG 12-LEAD (10/18/2024 3:09 PM EDT) Only the most recent of2 resultswithin the time period is included. Systolic Blood Pressure 140 mmHg [facility] Diastolic Blood Pressure 85 mmHg [facility] Ventricular Rate EKG/MIN 93 BPM [facility] Atrial Rate 93 BPM [facility] KS Interval 198 ms [facility] QRS Duration 94 ms [facility] QT Interval 368 ms [facility] QTC Interval 457 ms [facility] P [place] 66 degrees [facility] R Wave [place] 32 degrees [facility] T Wave [place] 55 degrees [facility] 10/18/2024 3:09 PM EDT Narrative [facility] - 10/18/2024 4:44 PM EDT Normal sinus rhythm Normal ECG When compared with ECG of 25-Sep-2024 12:22, No significant change was found us Pari Rivera MD ECG ORDERABLES Final Res ult [facility] * ABLATION, ATRIAL FIBRILLATION PAROXYSMAL, LEFT ATRIAL APPENDAGE CLOSURE (TRANSVENOUS) (10/18/2024 2:35 PM EDT) Anatomical Region Laterality Modality BWHEPS Narrative 10/26/2024 10:56 AM EDT Images from the original result were not included. OPERATIVE REPORT Patient: Abdirahman Leon Sr. [facility] Medical Record: [id number] Date of : 1965 Date of Procedure: 10/18/2024 PRE-PROCEDURE DIAGNOSIS: Paroxysmal atrial fibrillation and flutter. Left retinal artery branch occlusion. Non small cell lung cancer. Treated with carboplatin, pemetrexed and pembrolizumab. In February 2024, CAT scan revealed decrease in size of LLL mass / SHIVANI. Type 2 diabetes. Essential hypertension. Obesity. BMI 36. Hyperlipidemia. GERD. POST PROCEDURE DIAGNOSIS: Same. Status post successful ablation for atrial fibrillation (pulmonary vein isolation and left atrial posterior wall isolation). Status post successful insertion of Watchman left atrial appendage occlusion device. PROCEDURE(S) PERFORMED: Ablation for atrial fibrillation (pulmonary vein isolation) (CPT 50284). Additional ablation for atrial fibrillation after PVI (left atrial posterior wall isolation) (CPT 58566). Three-dimensional mapping (CPT 27897). Intracardiac echocardiography (CPT 02129). Watchman left atrial appendage occlusion (CPT 78067). ATTENDING Guanakito Gallardo MD ORNAMENTAL PLASTER STICKER Pari Rivera MD PATIENT HISTORY: 59 y.o. male with metastatic NSCLC responsive to chemotherapy, paroxysmal atrial fibrillation and flutter, and retinal artery branch occlusion. 16% Af burden on monitor. Concern for increased bleeding risk iso malignancy . EF 57. No LAAT. Plan for concomitant AF ablation with PFA/farapulse and for watchman placement. PROCEDURE NARRATIVE PROCEDURE SET-UP The risks, benefits, and alternatives to the procedure were explained to the patient and informed consent was obtained. After informed written consent was obtained the patient was transported to the electrophysiology laboratory in the post absorptive, non-sedated state. The team verification process was completed prior to the start of the procedure. Written consent and a completed procedural sedation form were confirmed. Allergies/Adverse reactions were noted and patient teaching was performed. The patient was positioned on table and bilateral arm supports with soft cushions and all pressure points were padded. A large diameter grounding pad was applied to the patient's thigh. ECG electrodes and a set of hands-free defibrillator pads were applied to the patient. A MCL/12 lead ECG was continuously monitored through out the procedure. Noninvasive blood pressure, oxygen saturation, and capnography were monitored throughout the procedure. General anesthesia was administered throughout the procedure by our staff anesthsiology service. Please see their notations for intubation and sedation. Throughout the procedure the patient's comfort (pain scale) and level of sedation (sedation scale) were noted every 5 minutes. VASCULAR ACCESS AND CATHETER PLACEMENT After general anesthesia, bilateral groins were prepped and draped in sterile fashion. Bilateral femoral heads were located using palpation and femoral access was achieved utilizing the Seldinger technique with a cook needle under ultrasound guidance. An 10 Fr sheath was placed in the right femoral vein and an 8 Fr and 10Fr sheath were placed in the left femoral vein. Via left femoral vein 10 Fr sheath an ICE catheter was advanced into the mid RA for continuous ultrasound guidance and into the RVOT to evaluate for an effusion. Via a left femoral vein 8Fr short sheath a decapolar electrode catheter was advanced into the CS for pacing and recording. After access was obtained, heparin bolus was administered, and a heparin drip of 10 units per kg of body weight per hour was started. The Activated Clotting Time maintained between 300-350 secs via the iSTAT machine with additional boluses q 30 minutes as necessary. TRANSSEPTAL PUNCTURE OF THE INTERATRIAL SEPTUM: A transseptal atrial puncture was performed using intracardiac ultrasound guidance. A long J-tip Versacross wire was passed through the right femoral vein 10 Fr sheath into the SVC, the 10Fr sheath was subsequently removed. The Agillis and sheath were advanced over an Amplatz wire into the SVC. The sheath and wire were dragged from the SVC along the septum until a sudden displacement was observed. Engagement of the Fossa Ovalis was confirmed by interatrial tenting seen under intracardiac ultrasound guidance. Electrocautery was delivered along the septum through the wire. The dilator and sheath were then advanced into the left atrium over the wire which was positioned in the left upper pulmonary vein. The dilator was then removed. The sheath was attached to pressure tubing and a 25cc/hr drip of heparinized saline maintained.The position of the sheath was confirmed with microbubble injection as observed on ICE. The dilator was then removed. The sheath was attached to pressure tubing and a 25cc/hr drip of heparinized saline maintained. IMAGING/MAPPING Prior to transeptal, the ICE catheter was advanced into the heart. The epicardial space of the heart, including around the RV and LV, was evaluated and no effusion was noted. An OctaRay catheter was advanced into the left atrium through the Agillis sheath. At baseline the patient was in sinus. A 3-D shell representing the left atrium and pulmonary veins was constructed by use of the catheter manipulationin the LA. A pre-procedure cardiac CT was uploaded into the CARTO mapping system and merged with the electoanatomic shell for mapping and guidance. The electoanatomic map revealed normal voltage indicating normal healthy myocardium. ABLATION PROCEDURE PULMONARY VEIN ISOLATION Left atrial ablation was performed in the pulmonary vein ostium and antrum to encircle the right and left sided PVs. After the pulse field ablation was completed, both pulmonary veins were assessed for block with the ablation catheter. Both right and left pulmonary veins were found to have entrance and exit block. Pulse field energy was applied with maximal voltage of 2kV in multiple 5 burst packets per ablation lesion to both the ostium and antrum of the pulmonary veins. POSTERIOR WALL ISOLATION The decision was made to proceed with posterior wall isolation. Series of lesions were applied across the posterior wall. Additional ablation lesions were applied in areas of capture, and or areas with sharp signals. Pulse field energy was applied with maximal voltage of 2kV in multiple 5 burst packets. After the ablation, the posterior wall was completely isolated and both entrance and exit block was confirmed again. WATCHMAN PLACEMENT ADVANCEMENT OF THE WATCHMAN ACCESS AND DELIVERY SYSTEMS The Agillis sheath was exchanged for a 17FR TruSteer catheter over a wire retained in the left atrium. A 6 FR pigtail catheter was advanced through the Watchman sheath into the SASKIA. Angiogram was performed to define the SASKIA anatomy and localize the SASKIA os. Multiple views were obtained with ICE (0,45,90,135 degrees). The WATCHMAN sheath was seated into the SASKIA using fluoroscopic and ELIZABETH guidance over the pigtail. Based on ELIZABETH Measurements of the SASKIA ostium and depth, a 24mm device was selected. The Pre LAAO Orifice Maximal Width was noted to be 19. The WATCHMAN delivery system was prepared, flushed, cleared of air, and the 'feet' were then aligned with the distal marker band. The pigtail was removed while maintaining positioning of the Watchman Access system, and the Watchman Flex delivery system was then advanced into the LA/SASKIA through the access sheath via a fluid-fluid connection.Fluoroscopy images were limited due to body habitus. CREATION OF WATCHMAN FLEX BALL The access system was retracted and snapped into the delivery system. The position of the delivery system tip was reconfirmed prior to proceeding.Then, the Watchman Flex device was partially exposed by holding the deployment knob stationary while retracting the access sheath/delivery system to form an implant width approximately twice that of the Watchman access sheath. DEPLOYMENT OF THE WATCHMAN DEVICE After the delivery sheath distal marker was aligned at the SASKIA ostium, the deployment knob was advanced forward to fully expose the device. The knob was held stationary while the access and delivery units were slowly retracted over a 7-10 second period to completely deploy the device. The hemostasis valve was then closed. A full recapture was necessary after initial placement and was done so without complication. After re-advancement of the device in the same fashion as aforementioned, forward pressure was then applied to the deployment knob for 10 seconds as the implant expanded and conformed to the SASKIA. Contrast injections and ICE confirmed a well seated position without any significant gaps/leaks around the device. Based on ELIZABETH measurements, approximately 12-20% compression of the device was observed (at 0, 45, 90, 135 degree views). Tug tests were performed demonstrating satisfactory stability. RELEASE OF DEVICE The deployment knob was then rotated 5 full turns in order to release the WATCHMAN Flex Device in this position. No complications occurred. POST-ABLATION The ICE catheter was maneuvered into the RVOT. The epicardial space of the heart, including around the RV and LV, was evaluated and no effusion was visualized. Catheters were removed from the heart and hemostasis was achieved with figure of 8 suture in the RFV and manual pressure in the LFV after the administration of protamine 50 mg intravenously. The patient was taken to the recovery area in stable condition and in sinus rhythm. The estimated blood loss was 50 ml. The patient tolerated the procedure well. POST-PROCEDURE RHYTHM: Sinus rhythm. RADIOLOGY SUMMARY: No Radiation Tracking on this study. COMPLICATIONS: No complications occurred. CONCLUSIONS: 1) Successful ablation for atrial fibrillation (pulmonary vein isolation and left atrial posterior wall isolation utilizing pulsed field ablation). 2) Successful insertion of Watchman left atrial appendage occlusion device. RECOMMENDATIONS - Bedrest for 4 total hours, fig of 8 suture out in 3 hours - Continue DOAC for primary cardioembolic stroke prevention - CT in 3 months - TTE prior to discharge - Admit to PRU per Watchman protocol - Follow-up: to be arranged. As the responsible attending I attest that I was present for all critical portions of the procedure and immediately available for all other components. Guanakito Gallardo MD CV ELECTROPHYSIOLOGY OR DERABLES Final Result * (ABNORMAL) POCT Activated Clotting Time (10/18/2024 1:56 PM EDT) Only the most recent of4 resultswithin the time period is included. activated clotting time 337(H) 74 - 137 SEC [facility] CARDIAC CATH DIAG INTERVENTION CTR 10/18/2024 1:56 PM EDT 10/18/2024 2:22 PM EDT us Guanakito Gallardo MD POINT OF CARE TEST ORDE RABLES Final Result [facility] CARDIAC CATH DIAG INTERVENTION CTR [address] [place] [address] * ANES ETT DOUBLE LUMEN - AIRWAY LDA (10/18/2024 11:45 AM EDT) Narrative Malachi Powers MBBS - 10/18/2024 11:45 AM EDT Malachi Powers MBBS 10/18/2024 12:01 PM Airway Placement Procedure Note: Patient was not difficult to intubate. Procedure performed by: fellow/resident/BUSINESS CONTROL MANAGER Anesthesiologist: Zain Carmona MD Fellow/Resident/BUSINESS CONTROL MANAGER: Malachi Powers MBBS Airway procedure initiated at:10/18/2024 11:45 AM and ended at. Personal Protective Equipment: Mask: surgical mask Gloves: gloves Mask Ventilation: Quality: difficult Adjunct: oral airway and two hands Airway Placement: Technique: video laryngoscopy Rapid sequence induction: no Details: Blade type: Mac Blade size: Mac S4 Direct view: grade 1 Video Laryngoscopy was: elective Number of attempts: 1 ETT type: cuffed ETT size: 7.0 ETT depth at teeth: 22 ETT cuff inflation volume: 10 Tube position confirmed by: EtCO2 Bite Block: soft and molar Bite Block placement time: 10/18/2024 11:45 AM Outcomes: Evidence of dental injury? no Complications observed? no Notes: CA-1 attempted mask ventilation, difficult with OA and two hands, decided to intubate to minimize apneic time. VL Mac S4, G1V, placed 7.0 ETT 22cm at teeth, dentition same as prior to intubation. Zain Carmona MD [place] ANESTHESIA Final Result * (ABNORMAL) PTT (10/18/2024 8:52 AM EDT) APTT 38.7(H) 24.0 - 37.5 sec [facility] Comment:Emicizumab (Hemlibra ) treatment can result in falsely lowered aPTT test results. 10/18/2024 8:52 AM EDT 10/18/2024 9:04 AM EDT us Guanakito Gallardo MD LAB BLOOD ORDERABLES Fi nal Result [facility] [address] [place] [id number] * (ABNORMAL) PT-INR (10/18/2024 8:52 AM EDT) PT 14.9(H) 10.0 - 13.0 sec [facility] INR 1.3(H) 0.9 - 1.1 [facility] 10/18/2024 8:52 AM EDT 10/18/2024 9:04 AM EDT Guanakito Gallardo MD LAB BLOOD ORDERABLES Fi nal Result Performing Organization Address [facility] de Phone Number [facility] [address] [place] [address] * Type and Screen (ABO,Rh,Antibody Screen) (10/18/2024 8:52 AM EDT) Expiration Date of Sample 10/21/2024 11:59 PM 10/18/2024 10:03 AM EDT [facility] Resulting Agency [facility] ABO Type A 10/18/2024 10:03 AM EDT [facility] Rh Type Positive 10/18/2024 10:03 AM EDT [facility] Antibody Screen Negative 10/18/2024 10:03 AM EDT [facility] 10/18/2024 8:52 AM EDT 10/18/2024 9:07 AM EDT Guanakito Gallardo MD BLOOD BANK TEST ORDERAB LES Final Result Performing Organization Address [facility] de Phone Number [facility] [address] [place], [place] [id number] * (ABNORMAL) Basic metabolic panel (10/18/2024 8:52 AM EDT) SODIUM 139 136 - 145 mmol/L [facility] POTASSIUM 4.0 3.4 - 5.1 mmol/L [facility] CHLORIDE 100 98 - 107 mmol/L [facility] CO2 27 22 - 31 mmol/L [facility] BUN 19 6 - 23 mg/dL [facility] CREATININE 1.30(H) 0.50 - 1.20 mg/dL [facility] GLUCOSE 135(H) 70 - 100 mg/dL [facility] CALCIUM 9.8 8.8 - 10.7 mg/dL [facility] EGFR 63 >59 mL/min/1. 73m2 [facility] Comment:Estimated glomerular filtration rate calculated using the CKD-EPI refit equation. ANION GAP 12 7 - 17 mmol/L [facility] 10/18/2024 8:52 AM EDT 10/18/2024 9:04 AM EDT us Guanakito Gallardo MD LAB BLOOD ORDERABLES Fi nal Result [facility] [address] [place] [address] * CT CARDIAC WITH CONTRAST (10/17/2024 2:50 PM EDT) Anatomical Region Laterality Modality Heart Computed Tomogra phy 10/17/2024 4:41 PM EDT Impressions 10/18/2024 9:52 AM EDT * There are 2 right sided pulmonary veins and one common left pulmonary vein trunk. * The esophagus is posterior to the left atrium, midline and close to the left common pulmonary vein. * Pre-Watchman measurements as per narrative. * Unchanged spiculated nodule within the left lower lobe. New 4 mm right upper lobe pulmonary nodule. Patient scheduled for follow-up CT chest on November 09, 2024. ATTESTATION: Prabhu Ojeda, as teaching physician have reviewed the images, if any, for this patient's exam, and if necessary, have edited the report originally created by Godwin Calabrese. Narrative 10/18/2024 9:52 AM EDT Reason for exam (per EHR order): * Atrial fibrillation/flutter (AF) TECHNIQUE: Cardiac CT Angiography Scans: Angiogram - ECG gated Cardiac Delay (60 sec) - ECG gated Cardiac Oral contrast: None. Intravenous contrast: Per protocol. 3D Post-processing: MIPS COMPARISON: CT chest with contrast September 10, 2024 FINDINGS: CARDIAC: Pulmonary Veins: There are 2 right sided pulmonary veins and one common left pulmonary vein trunk. The esophagus is posterior to the left atrium, midline and close to the left common pulmonary vein. Left atrial appendage: There is no evidence of a filling defect in both arterial and delayed images to suggest thrombus within the left atrial appendage. Orifice dimensions: 21 x 14 mm Orifice circumference: 56 mm Orifice area: 219 mm2 SASKIA length: 30mm SASKIA perpendicular depth from orifice: 15 mm Other Cardiac Findings: Coronary Arteries: This study was not optimized for the assessment of the coronary arteries. Mild coronary calcifications. Chambers: The left atrium is mildly dilated. The right atrium is mildly dilated. The right ventricle is normal in size. The left ventricle is normal in size. Myocardium: No thinning. Valves: Aortic valve without calcifications. Normal mitral valve. Pericardium: No pericardial effusion, calcification or thickening. Aorta: Normal size. Mild atherosclerosis of the ascending and descending thoracic aorta. Pulmonary arteries: Dilated main pulmonary artery measuring 3.2 cm INCIDENTAL FINDINGS: Unchanged spiculated nodule within the left lower lobe. New 4 mm right upper lobe pulmonary nodule (9:40). Redemonstrated spiculated nodule in the left lower lobe, unchanged from prior. Subsegmental atelectasis. Procedure Note Prabhu Brito MD - 10/18/2024 Reason for exam (per EHR order): * Atrial fibrillation/flutter (AF) TECHNIQUE: Cardiac CT Angiography Scans: Angiogram - ECG gated Cardiac Delay (60 sec) - ECG gated Cardiac Oral contrast: None. Intravenous contrast: Per protocol. 3D Post-processing: MIPS COMPARISON: CT chest with contrast September 10, 2024 FINDINGS: CARDIAC: Pulmonary Veins: There are 2 right sided pulmonary veins and one commonleft pulmonary vein trunk. The esophagus is posterior to the left atrium, midline and close to theleft common pulmonary vein. Left atrial appendage: There is no evidence of a filling defect in botharterial and delayed images to suggest thrombus within the left atrialappendage. Orifice dimensions: 21 x 14 mm Orifice circumference: 56 mm Orifice area: 219 mm2 SASKIA length: 30mm SASKIA perpendicular depth from orifice: 15 mm Other Cardiac Findings: Coronary Arteries: This study was not optimized for the assessment of thecoronary arteries. Mild coronary calcifications. Chambers: The left atrium is mildly dilated. The right atrium is mildlydilated. The right ventricle is normal in size. The left ventricle isnormal in size. Myocardium: No thinning. Valves: Aortic valve without calcifications. Normal mitral valve. Pericardium: No pericardial effusion, calcification or thickening. Aorta: Normal size. Mild atherosclerosis of the ascending and descendingthoracic aorta. Pulmonary arteries: Dilated main pulmonary artery measuring 3.2 cm INCIDENTAL FINDINGS: Unchanged spiculated nodule within the left lowerlobe. New 4 mm right upper lobe pulmonary nodule (9:40). Redemonstratedspiculated nodule in the left lower lobe, unchanged from prior.Subsegmental atelectasis. IMPRESSION: * There are 2 right sided pulmonary veins and one common left pulmonaryvein trunk. * The esophagus is posterior to the left atrium, midline and close to theleft common pulmonary vein. * Pre-Watchman measurements as per narrative. * Unchanged spiculated nodule within the left lower lobe. New 4 mm rightupper lobe pulmonary nodule. Patient scheduled for follow-up CT chest onS2024. ATTESTATION: Prabhu Ojeda, as teaching physician havereviewed the images, if any, for this patient's exam, and if necessary,have edited the report originally created by Godwin Calabrese. Yeimy Holder PA-C IMYudelka CT CARDIAC Final Resul t * CT 3D Reconstruction CT Angio Chest (10/17/2024 2:50 PM EDT) Anatomical Region Laterality Modality Chest Computed Tomogra phy 10/17/2024 4:41 PM EDT Impressions 10/18/2024 9:52 AM EDT * There are 2 right sided pulmonary veins and one common left pulmonary vein trunk. * The esophagus is posterior to the left atrium, midline and close to the left common pulmonary vein. * Pre-Watchman measurements as per narrative. * Unchanged spiculated nodule within the left lower lobe. New 4 mm right upper lobe pulmonary nodule. Patient scheduled for follow-up CT chest on November 09, 2024. ATTESTATION: Prabhu Ojeda, as teaching physician have reviewed the images, if any, for this patient's exam, and if necessary, have edited the report originally created by Godwin Calabrese. Narrative 10/18/2024 9:52 AM EDT Reason for exam (per EHR order): * Atrial fibrillation/flutter (AF) TECHNIQUE: Cardiac CT Angiography Scans: Angiogram - ECG gated Cardiac Delay (60 sec) - ECG gated Cardiac Oral contrast: None. Intravenous contrast: Per protocol. 3D Post-processing: MIPS COMPARISON: CT chest with contrast September 10, 2024 FINDINGS: CARDIAC: Pulmonary Veins: There are 2 right sided pulmonary veins and one common left pulmonary vein trunk. The esophagus is posterior to the left atrium, midline and close to the left common pulmonary vein. Left atrial appendage: There is no evidence of a filling defect in both arterial and delayed images to suggest thrombus within the left atrial appendage. Orifice dimensions: 21 x 14 mm Orifice circumference: 56 mm Orifice area: 219 mm2 SASKIA length: 30mm SASKIA perpendicular depth from orifice: 15 mm Other Cardiac Findings: Coronary Arteries: This study was not optimized for the assessment of the coronary arteries. Mild coronary calcifications. Chambers: The left atrium is mildly dilated. The right atrium is mildly dilated. The right ventricle is normal in size. The left ventricle is normal in size. Myocardium: No thinning. Valves: Aortic valve without calcifications. Normal mitral valve. Pericardium: No pericardial effusion, calcification or thickening. Aorta: Normal size. Mild atherosclerosis of the ascending and descending thoracic aorta. Pulmonary arteries: Dilated main pulmonary artery measuring 3.2 cm INCIDENTAL FINDINGS: Unchanged spiculated nodule within the left lower lobe. New 4 mm right upper lobe pulmonary nodule (9:40). Redemonstrated spiculated nodule in the left lower lobe, unchanged from prior. Subsegmental atelectasis. Procedure Note Prabhu Brito MD - 10/18/2024 Reason for exam (per EHR order): * Atrial fibrillation/flutter (AF) TECHNIQUE: Cardiac CT Angiography Scans: Angiogram - ECG gated Cardiac Delay (60 sec) - ECG gated Cardiac Oral contrast: None. Intravenous contrast: Per protocol. 3D Post-processing: MIPS COMPARISON: CT chest with contrast September 10, 2024 FINDINGS: CARDIAC: Pulmonary Veins: There are 2 right sided pulmonary veins and one commonleft pulmonary vein trunk. The esophagus is posterior to the left atrium, midline and close to theleft common pulmonary vein. Left atrial appendage: There is no evidence of a filling defect in botharterial and delayed images to suggest thrombus within the left atrialappendage. Orifice dimensions: 21 x 14 mm Orifice circumference: 56 mm Orifice area: 219 mm2 SASKIA length: 30mm SASKIA perpendicular depth from orifice: 15 mm Other Cardiac Findings: Coronary Arteries: This study was not optimized for the assessment of thecoronary arteries. Mild coronary calcifications. Chambers: The left atrium is mildly dilated. The right atrium is mildlydilated. The right ventricle is normal in size. The left ventricle isnormal in size. Myocardium: No thinning. Valves: Aortic valve without calcifications. Normal mitral valve. Pericardium: No pericardial effusion, calcification or thickening. Aorta: Normal size. Mild atherosclerosis of the ascending and descendingthoracic aorta. Pulmonary arteries: Dilated main pulmonary artery measuring 3.2 cm INCIDENTAL FINDINGS: Unchanged spiculated nodule within the left lowerlobe. New 4 mm right upper lobe pulmonary nodule (9:40). Redemonstratedspiculated nodule in the left lower lobe, unchanged from prior.Subsegmental atelectasis. IMPRESSION: * There are 2 right sided pulmonary veins and one common left pulmonaryvein trunk. * The esophagus is posterior to the left atrium, midline and close to theleft common pulmonary vein. * Pre-Watchman measurements as per narrative. * Unchanged spiculated nodule within the left lower lobe. New 4 mm rightupper lobe pulmonary nodule. Patient scheduled for follow-up CT chest onSeptember 2024. ATTESTATION: Prabhu Ojeda, as teaching physician havereviewed the images, if any, for this patient's exam, and if necessary,have edited the report originally created by Godwin Calabrese. us Yeimy Holder PA-C IMG CT Final Resul t * ENDOSCOPY PROCEDURE (09/24/2024 7:14 AM EDT) 09/24/2024 7:14 AM EDT Narrative Transcriptions Isaiah Vides MD, MPH - 09/24/2024 7:14 AM EDT [facility] Patient Name: Abdirahman Leon Procedure Date: 09/24/2024 7:14 AM Date of : 1965 Admit Type: Outpatient Age: 59 Room: 2 Gender: Male Note Status: Finalized Attending MD: Isaiah Vides MD, Instrument Name: [id number] Procedure: Upper GI endoscopy Indications: Abdominal pain, intermittent, none recently Patient Profile: This is a 59 year old male. Refer to note in patient chart for documentation of history and physical. Providers: Isaiah Vides MD, MIGUEL DUNLAP RN Referring MD: GRECIA BAIRD M.D. (Referring MD) Medicines: Monitored Anesthesia Care Complications: No immediate complications. Procedure: After informed consent was obtained, the endoscope was passed under direct vision. Throughout the procedure, the patient's blood pressure, pulse, and oxygen saturations were monitored continuously. The Endoscope was introduced through the mouth, and advanced to the second part of duodenum. The upper GI endoscopy was accomplished without difficulty. The patient tolerated the procedure well. Findings: The examined esophagus was normal. A medium amount of food (residue) was found in the entire examined stomach. Normal mucosa was found in the entire examined stomach. The examined duodenum was normal. Biopsies were taken with a cold forceps for histology. Verification of patient identification for the specimen was done. Estimated blood loss was minimal. Impression: - Normal esophagus. - A medium amount of food (residue) in the stomach. - Normal mucosa was found in the entire stomach. - Normal examined duodenum. Biopsied. Recommendation: - Discharge patient to home. - Patient has a contact number available for emergencies. The signs and symptoms of potential delayed complications were discussed with the patient. Return to normal activities tomorrow. Written discharge instructions were provided to the patient. - Await pathology results. - Return to referring physician as previously scheduled. Isaiah Vides MD [id number] Isaiah Vides MD 09/24/2024 8:05:03 AM This report has been signed electronically. Number of Addenda: 0 Note Initiated On: 09/24/2024 7:14 AM us Grecia Baird MD GI PROCEDURE ORDERABLE S Final Result * ENDOSCOPY, COLON (09/24/2024 7:13 AM EDT) 09/24/2024 7:13 AM EDT Narrative Transcriptions Isaiah Vides MD, MPH - 09/24/2024 7:13 AM EDT [facility] Patient Name: Abdirahman Leon Procedure Date: 09/24/2024 7:13 AM Date of : 1965 Admit Type: Outpatient Age: 59 Room: 2 Gender: Male Note Status: Finalized Attending MD: Isaiah Vides MD, Instrument Name: LOANER COLON Procedure: Colonoscopy Indications: Abdominal pain on and off, none recently Patient Profile: This is a 59 year old male. Refer to note in patient chart for documentation of history and physical. Providers: Isaiah Vides MD, MIGUEL DUNLAP RN Referring MD: GRECIA BAIRD M.D. (Referring MD) Medicines: Monitored Anesthesia Care Complications: No immediate complications. Procedure: After informed consent was obtained, the scope was passed under direct vision. Throughout the procedure, the patient's blood pressure, pulse, and oxygen saturations were monitored continuously. The Colonoscope was introduced through the anus and advanced to the cecum, identified by appendiceal orifice and ileocecal valve. The colonoscopy was performed without difficulty. The patient tolerated the procedure well. The quality of the bowel preparation was adequate. Findings: The perianal examination was normal. A diminutive polyp was found in the rectum. The polyp was sessile. The polyp was removed with a cold biopsy forceps. Resection and retrieval were complete. Verification of patient identification for the specimen was done. Estimated blood loss was minimal. The exam was otherwise without abnormality on direct and retroflexion views. Biopsies were taken with a cold forceps in the entire colon for histology. Verification of patient identification for the specimen was done. Estimated blood loss was minimal. Impression: - One diminutive polyp in the rectum, removed with a cold biopsy forceps. Resected and retrieved. - The examination was otherwise normal on direct and retroflexion views. - Biopsies were taken with a cold forceps for histology in the entire colon. Recommendation: - Discharge patient to home. - Patient has a contact number available for emergencies. The signs and symptoms of potential delayed complications were discussed with the patient. Return to normal activities tomorrow. Written discharge instructions were provided to the patient. - Await pathology results. - Return to referring physician as previously scheduled. Isaiah Vides MD [id number] Isaiah Vides MD 09/24/2024 8:21:50 AM This report has been signed electronically. Number of Addenda: 0 Note Initiated On: 09/24/2024 7:13 AM Grecia Baird MD GI PROCEDURE ORDERABLE S Final Result * Anatomic Pathology (09/24/2024 12:00 AM EDT) 09/24/2024 09/24/2024 [facility] - 09/28/2024 12:58 PM EDT CASE: [id number] PATIENT: ABDIRAHMAN LEON Date: 1965 Sex: Male [facility] Department of Pathology [address] [place], [place] [address]IA License No.: [id number] Barley Steeper: Dr. Star Adrian M.D., Ph.D. Physician: ISAIAH VIDES MD, MPH Procedure Date: 09/24/2024 Resident: Paul Calderon MD, MS Pathologist: Urmila Das M.D., [facility] PATHOLOGIC DIAGNOSIS: A. DUODENUM BX: Duodenal mucosa within normal limits. B. RANDOM COLON BX: Colonic mucosa within normal limits. C. RECTAL POLYP: Hyperplastic polyp. CLINICAL DATA: History: Generalized abdominal pain. Operation: Esophagogastroduodenoscopy + biopsies stomach and duodenum, colonoscopy, biopsy colon and TI. Operative Findings: None provided. Clinical Diagnosis: None provided. TISSUE SUBMITTED: A/1. Duodenum BX B/2. Random colon BX C/3. Rectal polyp GROSS DESCRIPTION: The specimen is received in 3 parts, each labeled with the patient's name and medical record number. Part A received in formalin labeled Duodenum BX consists of 2 fragments of irregular oliva-pink soft tissue (averaging 0.4 cm in greatest dimension). The specimen is submitted in toto. A1: 2 fragments. Part B received in formalin labeled Random colon BX consists of 3 fragments of irregular oliva-pink soft tissue (ranging 0.3-0.4 cm in greatest dimension). The specimen is submitted in toto. B1: 3 fragments. Part C received in formalin labeled Rectal polyp consists of 2 fragments of irregular oliva-pink soft tissue (0.2 and 0.3 cm in greatest dimension). The specimen is submitted in toto. C1: 2 fragments. Dictated by: Melanie Garcias By his/her signature below, the senior physician certifies that he/she personally conducted a microscopic examination ( gross only exam if so stated) of the described specimen(s) and rendered or confirmed the diagnosis(es) related thereto. Final Diagnosis by Urmila Das M.D., [facility], Electronically signed on Saturday September 28, 2024 at 12:57:41PM us Isaiah Vides MD, MPH PATHOLOGY ORDERABLES Char l Result [facility] [employer] [address] [place] [id number] * CT CHEST WITH CONTRAST (09/10/2024 12:27 PM EDT) Anatomical Region Laterality Modality Chest Computed Tomogra phy 09/10/2024 12:3 6 PM EDT Impressions 09/10/2024 1:20 PM EDT 1. Slight interval decrease in size of a spiculated nodule within the right lower lobe. Other nodules are stable. 2. No progressive intrathoracic adenopathy. 3. Interval stability of a hypodense lesion involving the liver. 4. Slight interval decrease in size of bilateral external iliac chain lymph nodes. 5. Fat-containing umbilical hernia. Narrative 09/10/2024 1:[address] ABDOMEN/PELVIS WITH CONTRAST, CT CHEST WITH CONTRAST Referring clinician's provided indication for this examination in Epic: * Non- small cell lung cancer, metastatic, assess treatment response. TECHNIQUE: Multidetector-row CTs of the chest, abdomen and pelvis was performed after administration of intravenous contrast using tailored dose modulation techniques. Images were reconstructed in the axial, coronal, and sagittal planes. COMPARISON: CT abdomen/pelvis dated July 16, 2024. CT abdomen/pelvis dated July 16, 2024. CT chest dated May 14, 2024. CT abdomen/pelvis dated May 14, 2024. FINDINGS: CT CHEST: Devices and lines/tubes: Devices: No devices are identified. Lines/tubes: No lines/tubes are present. Mediastinum: The thyroid gland is homogeneous. No nodules. There is no anterior or posterior mediastinal mass. No acute esophageal abnormality. The heart is of normal size without pericardial effusion. Three-vessel left-sided aortic arch. No aneurysm. No coronary artery calcifications are present. Lymph Nodes: No enlarged supraclavicular, axillary, mediastinal, or hilar lymph nodes. There is a 9 mm lateral aortic recess lymph node (image 52, series 3). A additional stable 9 mm right hilar lymph nodes present (image 60, series 3). Lungs: The central airways are patent. No endotracheal masses are identified. Mild diffuse peribronchial thickening is identified. Atelectasis within the dependent portions of both lower lobes, right middle lobe and lingula. Compressive atelectasis is identified within the right lower lobe, increased compared to prior. Mild emphysematous changes with an upper lobe predominance. There is redemonstration of a spiculated nodule identified within the lower lobe with associated bandlike areas of consolidation. This measures 11 x 13 mm, previously 12 x 15 mm (image 284, series 5). There is a groundglass nodule measuring 4 mm within the left upper lobe (image 151, series 5). There is a 3 mm subpleural nodule identified within the right middle lobe (image 29, series 5). Pleura: No pleural effusion or pneumothorax. Chest Wall: No chest wall mass. Bones: Multilevel degenerative changes, no suspicious lesions. CT ABDOMEN/PELVIS: Liver: Normal liver size with diffuse hypodensity in keeping with steatosis. As a hypodense lesion identified within the subcapsular aspect of hepatic segment 6 measuring 23 x 30 mm, previously 20 x 32 mm, grossly similar. No new lesions are identified (image 33, series 2). No intrahepatic biliary ductal dilatation. Biliary: Nondilated gallbladder. No calcifications, wall thickening or gross inflammation. No extrahepatic biliary ductal dilatation. Spleen: No splenomegaly or focal splenic lesions. Pancreas: No duct dilatation, mass lesions or adjacent inflammation. Adrenal Glands: Thickening of the adrenal glands bilaterally. No nodules are present. Kidneys/Ureters: No calcifications, hydronephrosis, masses or perinephric collections. No renal cysts are present. No ureteral dilation or focal lesion. Bowel: No mechanical bowel obstruction is present. No acute gastric or small bowel abnormality. Unremarkable appearance of the colon. No wall thickening, focal lesions or acute inflammation. The terminal ileum is normal. The appendix is normal. Peritoneum/Retroperitoneum: No masses, pneumoperitoneum, or fluid. Lymph Nodes: There is a 14 x 16 mm lymph node identified within the right external iliac chain (image 411, series 3), previously 12 x 14 mm. There is a left external iliac chain lymph node identified measuring 10 x 13 mm, previously 11 x 15 mm (image 14, series 3). No internal iliac chain or common iliac chain lymph nodes. No inguinal adenopathy is present. Pelvic Organs/Bladder: The urinary bladder is unremarkable. No intraluminal abnormality is identified. The pelvic viscera is unremarkable. No free pelvic fluid or collections. Vessels: No abdominal aortic aneurysm. Moderate calcifications are present. Bones/Soft Tissues: No inguinal hernia. Fat-containing umbilical hernia measuring 20 mm (image 284, series 3). No masses or collections. Multilevel degenerative changes, no suspicious lesions. Spinal curvature convexity to the left. Procedure Note Nine, Carlos Alberto Chang MD - 09/10/2024 CT ABDOMEN/PELVIS WITH CONTRAST, CT CHEST WITH CONTRAST Referring clinician's provided indication for this examination in Epic: *Non- small cell lung cancer, metastatic, assess treatment response. TECHNIQUE: Multidetector-row CTs of the chest, abdomen and pelvis was performed afteradministration of intravenous contrast using tailored dose modulationtechniques. Images were reconstructed in the axial, coronal, and sagittalplanes. COMPARISON: CT abdomen/pelvis dated July 16, 2024. CT abdomen/pelvis datedM2024. CT chest dated May 14, 2024. CT abdomen/pelvis dated 2024. FINDINGS: CT CHEST: Devices and lines/tubes: Devices: No devices are identified. Lines/tubes: No lines/tubes are present. Mediastinum: The thyroid gland is homogeneous. No nodules. There is no anterior or posterior mediastinal mass. No acute esophagealabnormality. The heart is of normal size without pericardial effusion. Hwogp-[id number]-jqftt aortic arch. No aneurysm. No coronary artery calcifications arepresent. Lymph Nodes: No enlarged supraclavicular, axillary, mediastinal, or hilarlymph nodes. There is a 9 mm lateral aortic recess lymph node (image 52,series 3). A additional stable 9 mm right hilar lymph nodes present (image60, series 3). Lungs: The central airways are patent. No endotracheal masses areidentified. Mild diffuse peribronchial thickening is identified.Atelectasis within the dependent portions of both lower lobes, rightmiddle lobe and lingula. Compressive atelectasis is identified within theright lower lobe, increased compared to prior. Mild emphysematous changeswith an upper lobe predominance. There is redemonstration of a spiculated nodule identified within thelower lobe with associated bandlike areas of consolidation. This jepygkqp13 x 13 mm, previously 12 x 15 mm (image 284, series 5). There is agroundglass nodule measuring 4 mm within the left upper lobe (image 151,series 5). There is a 3 mm subpleural nodule identified within the rightmiddle lobe (image 29, series 5). Pleura: No pleural effusion or pneumothorax. Chest Wall: No chest wall mass. Bones: Multilevel degenerative changes, no suspicious lesions. CT ABDOMEN/PELVIS: Liver: Normal liver size with diffuse hypodensity in keeping withsteatosis. As a hypodense lesion identified within the subcapsular aspectof hepatic segment 6 measuring 23 x 30 mm, previously 20 x 32 mm, grosslysimilar. No new lesions are identified (image 33, series 2). Nointrahepatic biliary ductal dilatation. Biliary: Nondilated gallbladder. No calcifications, wall thickening orgross inflammation. No extrahepatic biliary ductal dilatation. Spleen: No splenomegaly or focal splenic lesions. Pancreas: No duct dilatation, mass lesions or adjacent inflammation. Adrenal Glands: Thickening of the adrenal glands bilaterally. No nodulesare present. Kidneys/Ureters: No calcifications, hydronephrosis, masses or perinephriccollections. No renal cysts are present. No ureteral dilation or focallesion. Bowel: No mechanical bowel obstruction is present. No acute gastric orsmall bowel abnormality. Unremarkable appearance of the colon. No wallthickening, focal lesions or acute inflammation. The terminal ileum isnormal. The appendix is normal. Peritoneum/Retroperitoneum: No masses, pneumoperitoneum, or fluid. Lymph Nodes: There is a 14 x 16 mm lymph node identified within the rightexternal iliac chain (image 411, series 3), previously 12 x 14 mm. Thereis a left external iliac chain lymph node identified measuring 10 x 13 mm,previously 11 x 15 mm (image 14, series 3). No internal iliac chain orcommon iliac chain lymph nodes. No inguinal adenopathy is present. Pelvic Organs/Bladder: The urinary bladder is unremarkable. Nointraluminal abnormality is identified. The pelvic viscera isunremarkable. No free pelvic fluid or collections. Vessels: No abdominal aortic aneurysm. Moderate calcifications arepresent. Bones/Soft Tissues: No inguinal hernia. Fat-containing umbilical herniameasuring 20 mm (image 284, series 3). No masses or collections.Multilevel degenerative changes, no suspicious lesions. Spinal curvatureconvexity to the left. IMPRESSION: 1. Slight interval decrease in size of a spiculated nodule within theright lower lobe. Other nodules are stable. 2. No progressive intrathoracic adenopathy. 3. Interval stability of a hypodense lesion involving the liver. 4. Slight interval decrease in size of bilateral external iliac chainlymph nodes. 5. Fat-containing umbilical hernia. Hermelinda Barajas MD IMG CT CHEST Final Result * CT ABDOMEN/PELVIS WITH CONTRAST (09/10/2024 12:27 PM EDT) Anatomical Region Laterality Modality Abdomen, Pelvis Computed Tomogra phy 09/10/2024 12:3 6 PM EDT Impressions 09/10/2024 1:20 PM EDT 1. Slight interval decrease in size of a spiculated nodule within the right lower lobe. Other nodules are stable. 2. No progressive intrathoracic adenopathy. 3. Interval stability of a hypodense lesion involving the liver. 4. Slight interval decrease in size of bilateral external iliac chain lymph nodes. 5. Fat-containing umbilical hernia. Narrative 09/10/2024 1:[address] ABDOMEN/PELVIS WITH CONTRAST, CT CHEST WITH CONTRAST Referring clinician's provided indication for this examination in Epic: * Non- small cell lung cancer, metastatic, assess treatment response. TECHNIQUE: Multidetector-row CTs of the chest, abdomen and pelvis was performed after administration of intravenous contrast using tailored dose modulation techniques. Images were reconstructed in the axial, coronal, and sagittal planes. COMPARISON: CT abdomen/pelvis dated July 16, 2024. CT abdomen/pelvis dated July 16, 2024. CT chest dated May 14, 2024. CT abdomen/pelvis dated May 14, 2024. FINDINGS: CT CHEST: Devices and lines/tubes: Devices: No devices are identified. Lines/tubes: No lines/tubes are present. Mediastinum: The thyroid gland is homogeneous. No nodules. There is no anterior or posterior mediastinal mass. No acute esophageal abnormality. The heart is of normal size without pericardial effusion. Three-vessel left-sided aortic arch. No aneurysm. No coronary artery calcifications are present. Lymph Nodes: No enlarged supraclavicular, axillary, mediastinal, or hilar lymph nodes. There is a 9 mm lateral aortic recess lymph node (image 52, series 3). A additional stable 9 mm right hilar lymph nodes present (image 60, series 3). Lungs: The central airways are patent. No endotracheal masses are identified. Mild diffuse peribronchial thickening is identified. Atelectasis within the dependent portions of both lower lobes, right middle lobe and lingula. Compressive atelectasis is identified within the right lower lobe, increased compared to prior. Mild emphysematous changes with an upper lobe predominance. There is redemonstration of a spiculated nodule identified within the lower lobe with associated bandlike areas of consolidation. This measures 11 x 13 mm, previously 12 x 15 mm (image 284, series 5). There is a groundglass nodule measuring 4 mm within the left upper lobe (image 151, series 5). There is a 3 mm subpleural nodule identified within the right middle lobe (image 29, series 5). Pleura: No pleural effusion or pneumothorax. Chest Wall: No chest wall mass. Bones: Multilevel degenerative changes, no suspicious lesions. CT ABDOMEN/PELVIS: Liver: Normal liver size with diffuse hypodensity in keeping with steatosis. As a hypodense lesion identified within the subcapsular aspect of hepatic segment 6 measuring 23 x 30 mm, previously 20 x 32 mm, grossly similar. No new lesions are identified (image 33, series 2). No intrahepatic biliary ductal dilatation. Biliary: Nondilated gallbladder. No calcifications, wall thickening or gross inflammation. No extrahepatic biliary ductal dilatation. Spleen: No splenomegaly or focal splenic lesions. Pancreas: No duct dilatation, mass lesions or adjacent inflammation. Adrenal Glands: Thickening of the adrenal glands bilaterally. No nodules are present. Kidneys/Ureters: No calcifications, hydronephrosis, masses or perinephric collections. No renal cysts are present. No ureteral dilation or focal lesion. Bowel: No mechanical bowel obstruction is present. No acute gastric or small bowel abnormality. Unremarkable appearance of the colon. No wall thickening, focal lesions or acute inflammation. The terminal ileum is normal. The appendix is normal. Peritoneum/Retroperitoneum: No masses, pneumoperitoneum, or fluid. Lymph Nodes: There is a 14 x 16 mm lymph node identified within the right external iliac chain (image 411, series 3), previously 12 x 14 mm. There is a left external iliac chain lymph node identified measuring 10 x 13 mm, previously 11 x 15 mm (image 14, series 3). No internal iliac chain or common iliac chain lymph nodes. No inguinal adenopathy is present. Pelvic Organs/Bladder: The urinary bladder is unremarkable. No intraluminal abnormality is identified. The pelvic viscera is unremarkable. No free pelvic fluid or collections. Vessels: No abdominal aortic aneurysm. Moderate calcifications are present. Bones/Soft Tissues: No inguinal hernia. Fat-containing umbilical hernia measuring 20 mm (image 284, series 3). No masses or collections. Multilevel degenerative changes, no suspicious lesions. Spinal curvature convexity to the left. Procedure Note Nine, Carlos Alberto Chang MD - 09/10/2024 CT ABDOMEN/PELVIS WITH CONTRAST, CT CHEST WITH CONTRAST Referring clinician's provided indication for this examination in Epic: *Non- small cell lung cancer, metastatic, assess treatment response. TECHNIQUE: Multidetector-row CTs of the chest, abdomen and pelvis was performed afteradministration of intravenous contrast using tailored dose modulationtechniques. Images were reconstructed in the axial, coronal, and sagittalplanes. COMPARISON: CT abdomen/pelvis dated July 16, 2024. CT abdomen/pelvis datedM2024. CT chest dated May 14, 2024. CT abdomen/pelvis dated 2024. FINDINGS: CT CHEST: Devices and lines/tubes: Devices: No devices are identified. Lines/tubes: No lines/tubes are present. Mediastinum: The thyroid gland is homogeneous. No nodules. There is no anterior or posterior mediastinal mass. No acute esophagealabnormality. The heart is of normal size without pericardial effusion. Yshtn-awoeatezbl-kgqqs aortic arch. No aneurysm. No coronary artery calcifications arepresent. Lymph Nodes: No enlarged supraclavicular, axillary, mediastinal, or hilarlymph nodes. There is a 9 mm lateral aortic recess lymph node (image 52,series 3). A additional stable 9 mm right hilar lymph nodes present (image60, series 3). Lungs: The central airways are patent. No endotracheal masses areidentified. Mild diffuse peribronchial thickening is identified.Atelectasis within the dependent portions of both lower lobes, rightmiddle lobe and lingula. Compressive atelectasis is identified within theright lower lobe, increased compared to prior. Mild emphysematous changeswith an upper lobe predominance. There is redemonstration of a spiculated nodule identified within thelower lobe with associated bandlike areas of consolidation. This dotbqtpb12 x 13 mm, previously 12 x 15 mm (image 284, series 5). There is agroundglass nodule measuring 4 mm within the left upper lobe (image 151,series 5). There is a 3 mm subpleural nodule identified within the rightmiddle lobe (image 29, series 5). Pleura: No pleural effusion or pneumothorax. Chest Wall: No chest wall mass. Bones: Multilevel degenerative changes, no suspicious lesions. CT ABDOMEN/PELVIS: Liver: Normal liver size with diffuse hypodensity in keeping withsteatosis. As a hypodense lesion identified within the subcapsular aspectof hepatic segment 6 measuring 23 x 30 mm, previously 20 x 32 mm, grosslysimilar. No new lesions are identified (image 33, series 2). Nointrahepatic biliary ductal dilatation. Biliary: Nondilated gallbladder. No calcifications, wall thickening orgross inflammation. No extrahepatic biliary ductal dilatation. Spleen: No splenomegaly or focal splenic lesions. Pancreas: No duct dilatation, mass lesions or adjacent inflammation. Adrenal Glands: Thickening of the adrenal glands bilaterally. No nodulesare present. Kidneys/Ureters: No calcifications, hydronephrosis, masses or perinephriccollections. No renal cysts are present. No ureteral dilation or focallesion. Bowel: No mechanical bowel obstruction is present. No acute gastric orsmall bowel abnormality. Unremarkable appearance of the colon. No wallthickening, focal lesions or acute inflammation. The terminal ileum isnormal. The appendix is normal. Peritoneum/Retroperitoneum: No masses, pneumoperitoneum, or fluid. Lymph Nodes: There is a 14 x 16 mm lymph node identified within the rightexternal iliac chain (image 411, series 3), previously 12 x 14 mm. Thereis a left external iliac chain lymph node identified measuring 10 x 13 mm,previously 11 x 15 mm (image 14, series 3). No internal iliac chain orcommon iliac chain lymph nodes. No inguinal adenopathy is present. Pelvic Organs/Bladder: The urinary bladder is unremarkable. Nointraluminal abnormality is identified. The pelvic viscera isunremarkable. No free pelvic fluid or collections. Vessels: No abdominal aortic aneurysm. Moderate calcifications arepresent. Bones/Soft Tissues: No inguinal hernia. Fat-containing umbilical herniameasuring 20 mm (image 284, series 3). No masses or collections.Multilevel degenerative changes, no suspicious lesions. Spinal curvatureconvexity to the left. IMPRESSION: 1. Slight interval decrease in size of a spiculated nodule within theright lower lobe. Other nodules are stable. 2. No progressive intrathoracic adenopathy. 3. Interval stability of a hypodense lesion involving the liver. 4. Slight interval decrease in size of bilateral external iliac chainlymph nodes. 5. Fat-containing umbilical hernia. Hermelinda Barajas MD IMG CT ABD/PELVIS Final Result * Hepatitis C Antibody with Reflex to HCV, RNA quantitative Real-Time PCR (07/20/2022 7:26 AM EDT) HCV Ab Negative Negative [facility] Comment: (NOTE) Kauosq-pc-cluyse ratio is <1.00. Blood 07/20/2022 7:26 AM EDT 07/20/2022 7:35 AM EDT Hermelinda Barajas MD LAB BLOOD ORDERABLES Final Resu lt [facility] [address] [facility] [address] [place] [address] from Last 3 Months or Most Recently Relevant to Health Maintenance [facility] & [facility] & B [facility] MED[facility] & B [facility] & B [facility] MED[facility] & B [facility] & B [facility] MEDICARE PART A & B [facility] & B [facility] PART A & B Advance Directives For more information, please contact: [phone] (9AM - 5PM Jaja/[facility], Tuesday-Tuesday) Documents on File Type Date Recorded Patient Wrapper Sizer Expl anation Healthcare Proxy 10/19/2024 5:09 PM * Full Code (Latest Code Status on File) Date Activated Date Inactivated Comments 10/18/2024 2:58 PM Question Answer Comments Code Status Confirmed With: Patient * Full Code Date Activated Date Inactivated Comments 10/18/2024 2:58 PM 10/18/2024 2:58 PM Question Answer Comments Code Status Confirmed With: Patient Care Teams Shipping Helper Relationship Specialty Start Date End Date Grecia Baird MD [address] [place] [address] [place] [address] PCP - General Internal Medicine 10/13/22 Indigo Du, [facility] [address] [place] [address] [email or web address] General Merchandise Manager Oncology 07/27/22 Hermelinda Barajas MD [address] [place] [id number] [email or web address] Medical Oncology 11/29/22 Cindi Shell CNP [address] [place] [address] Fina [email or web address] Gerontology 11/29/22 Carlos Alberto King MD, [place] [address] [place] [address] [email or web address] Hospice and Palliative Care 04/05/24 Patria Luevano, BRIELLE [address] [place] [address] [email or web address] [facility] Primary Infusion Nurse 05/15/24 Jennie Ferreira RN [address] [place] [address] [email or web address] Associate Infusion Nurse 10/02/24 Additional Source Comments The information contained in this document represents components of the legal health record. It is not the complete legal health record.[facility]
--- OUTSIDE RECORDS SUMMARY | 2024-11-06 11:57 | XMS_ITS | Encounter Summary ---
Author Organization [facility] Address [address] [place] [address] [place] [address] Phone Care Team Providers Care Wash Plant Operator Name Role Phone Aubrey Taylor MD Primary Care Provider [phone] Indigo Du [facility] Unavailable Jn Cline DO Primary Care Provider Aubrey Taylor MD Primary Care Provider [phone] Marilynn Daly NP Primary Care Provider Unavailab Grecia Rosado MD Primary Care Provider Hermelinda Barajas MD Unavailable [phone] Cindi Shell TRAM INSPECTOR Unavailable Zuri Ha RN Unavailable [email or web address] Carlos Alberto King MD, [place] Unavailable [phone] Patria Luevano RN Unavailable [email or web address] Jennie Ferreira RN Unavailable [email or web address] Encounter Details Date Type Department Care Team (Late st Contact Info) Description 06/15/2022 Procedure Pass [facility] Echocardiography [address] [place] [address] Social History Tobacco Use Types Packs/Day Years Used Date Smoking Tobacco: Former Cigarettes 03 19 2 002 - 2021 Smokeless Tobacco: Never Sex and Gender Information Value Date Recorded Sex Assigned at Male 05/28/2022 1:30 PM EDT Legal Sex Male 9:41 PM EDT Gender Identity Male 05/28/2022 1:04 PM EDT Sexual Orientation Straight 05/28/2022 1: 30 PM EDT documented as of this encounter Plan of Treatment Upcoming Encounters Date Type Department Care Team (Late st Contact Info) Description 09/10/2024 Procedure Pass [address] [address] 09/10/2024 Procedure Pass [address] [address] 10/18/2024 Procedure Pass [facility] [address] [place] [address] 10/23/2024 Procedure Pass [facility] EKG [address] [place] [address] 10/23/2024 Procedure Pass [facility] EKG [address] [place] [address] 11/09/2024 10:30 AM EDT Appointment [address] [address] Hermelinda Barajas MD [address] [address] [email or web address] 11/13/2024 6:30 AM EDT Blood Draw Laboratory Services, [facility] [address] [facility] [facility] 2nd [place] [address] Hermelinda Barajas MD [address] [address] [email or web address] 11/13/2024 7:30 AM EDT Office Visit [facility] Center for Thoracic Oncology, [facility] [address] 9th [place] [address] Hermelinda Barajas MD [address] [address] [email or web address] 11/13/2024 8:30 AM EDT Infusion Infusion Therapy Services [place] [address], [address] 9[address] [place] [address] Hermelinda Barajas MD [address] [place] [address] [email or web address] Patria Luevano RN [address] [place] [address] [email or web address] 11/16/2024 9:00 AM EDT Office Visit [facility] Department of Orthopaedics [address] [place] [address] Adnrew Lima MD [address] [place] [address] Department [place] [address] [email or web address] 01/18/2025 7:35 AM EST Hospital Encounter [facility] EKG [address] [place] [address] Guanakito Gallardo MD [address] [place] [address] Card[place] [address] [email or web address] Arrived 01/18/2025 8:30 AM EST Appointment [facility] Radiology [address] [place] [address] Odalis Jimenez PA-C [address] [facility] 5th [place] [address] [email or web address] 02/01/2025 8:40 AM EST Office Visit [facility] Otolaryngology [address] [facility] [place] [address] Demetrio Armstrong MD [address] [place] [phone] [email or web address] 02/25/2025 9:30 AM EST Telemedicine [facility] Cardiovascular Clinic [address] [place] [address] Guanakito Gallardo MD [address] [place] [address] [place] [address] 07/04/2025 10:00 AM EDT Telemedicine [facility] Cardiovascular Clinic [address] [place] [address] Thiago Bean MD [address] [place] [address] [email or web address] 10/18/2025 7:05 AM EDT Hospital Encounter [facility] EKG [address] [place] [address] Guanakito Gallardo MD [address] [place] [address] [email or web address] Arrived documented as of this encounter Visit Diagnoses Not on filedocumented in this encounter Additional Health Concerns Infection Onset Date Last Indicated Resolved Time COVID-19 04/06/2023 04/06/2023 04/27/2023 1:21 AM EST CoV-Risk 07/17/2024 07/17/2024 07/28/2024 1:21 AM EDT documented as of this encounter Care Teams Wash Plant Operator Relationship Specialty Start Date End Date Aubrey Taylor MD [address] [place] [address] PCP - General Internal Medicine 05/28/22 08/03/22 Jn Cline DO [address] [address] [email or web address] PCP - General Hospitalist 08/04/22 08/12/22 Aubrey Taylor MD [address] [place] [address] PCP - General Internal Medicine 08/13/22 09/14/22 Marilynn Daly NP PCP - General Nurse Practitioner 09/15/22 10/12/22 Grecia Bonilla MD [address] [place] [address] [place] [address] PCP - General Internal Medicine 10/13/22 Indigo Du, [address] [address] [email or web address] Sales Performance Manager Oncology 07/27/22 Hermelinda Barajas MD [address] [place] [id number] [email or web address] Medical Oncology 11/29/22 Cindi Shell CNP [address] [place] [address] Fina@ [email or web address] Gerontology 11/29/22 Zuri Ha, BRIELLE [address] [place] [address] [email or web address] Primary Infusion Nurse 01/10/24 05/14/24 Carlos Alberto King MD, [place] [address] [place] [phone] [email or web address] Hospice and Palliative Care 04/05/24 Patria Luevano, BRIELLE [address] [place] [address] [email or web address] Primary Infusion Nurse 05/15/24 Jennie Ferreira RN [address] [place] [phone] [email or web address] Associate Infusion Nurse 10/02/24 documented as of this encounter Additional Source Comments The information contained in this document represents components of the legal health record. It is not the complete legal health record.[facility]
--- OUTSIDE RECORDS SUMMARY | 2024-11-06 11:57 | XMS_ITS ---
Author Organization [facility] Address [address] [place] [address] [place] [address] Phone Care Team Providers Care Manager Hospitality Name Role Phone Indigo Du [facility] Unavailable [phone] Grecia Bonilla MD Primary Care Provider Hermelinda Barajas MD Unavailable [phone] Cindi Shell ACT ENGLISH TUTOR Unavailable [phone] Carlos Alberto King MD, [place] Unavailable Patria Luevano RN Unavailable TOBIAS [email or web address] Jennie Ferreira RN Unavailable ALISON@ [facility] Active Problems Patient Care Coordination No te Formatting of this note migh t be different from the original. 06/18/2022 Jesse Patrick gave verbal permission for staff to speak to his life partner, Ana Morton, at any time re diagnosis, treatment and prognosis. Jesse asked for a referral to [employer]. This agency supplies home health aides. Phone no. = [phone] ex. [phone] and Fax = [phone]. SCHEDULING - PLEASE CALL PATIENT TO SCHEDULE APPTS, DOES NOT LIKE PATIENT GATEWAY TO SCHEDULE Oxygen supplier is [employer]. and Problem Noted Date Diagnosed Date Atrial fibrillation 10/18/2024 Primary lung adenocarcinoma 06/15/2022 Current Treatment and Therapy Plans HYDRATION & SUPPORTIVE CARE* Plan Start Date:05/15/2024 Plan Provider:Hermelinda Barajas MD Linked Problems Primary adenocarcinoma of eddie ng, unspecified laterality Treatment Medications No medications scheduled. PEMBROLIZUMAB/PEMETREXED/CARBOPLATIN* Plan Start Date:12/27/2023 Plan Provider:Hermelinda Barajas MD Linked Problems Primary adenocarcinoma of eddie ng, unspecified laterality Treatment Medications CARBOplatin (PARAPLATIN) IVP B (by AUC) 270 mLpembrolizumab (KEYTRUDA) IVPB 200 mg BagPEMEtrexed (ALIMTA) in NS IVPB VITAMIN B-12 (CYANOCOBALAMIN)* Plan Start Date:01/10/2024 Plan Provider:Hermelinda Barajas MD Linked Problems Primary adenocarcinoma of eddie ng, unspecified laterality Treatment Medications No medications scheduled. Past Treatment and Therapy Plans TREATMENT PLAN Plan Name Start Date Discontinue Date Treatment Medications Discontinue Reason Plan Provider Cycles DABRAFEN IB/TRAME TINIB 06/16/2022 12/20/2023 dabrafenib (TAFINLAR)trame tinib (MEKINIST) b. Progression Hermelinda Barajas MD 1 of 4 cycles started
--- OUTSIDE RECORDS SUMMARY | 2024-11-06 11:57 | XMS_ITS | Encounter Summary ---
Author Organization [facility] Address [address] [facility] [address] [place] [address] Phone Care Team Providers Care Detail Drafter Name Role Phone Indigo DuSW Unavailable Grecia Bonilla MD Primary Care Provider Hermelinda Barajas MD Unavailable [phone] Cindi Shell [facility] Unavailable Carlos Alberto King MD, [place] Unavailable Patria Luevano RN Unavailable TOBIAS [email or web address] Jennie Ferreira RN Unavailable ALISON@ [email or web address].[email or web address] Encounter Details Date Type Department Care Team (Late st Contact Info) Description 08/27/2024 Telephone [facility], [facility] [place] [address] [place] [address], 9th [place] [address] Patria Mar, RN [address] [place] [address] [email or web address] Social History Tobacco Use Types Packs/Day Years Used Date Smoking Tobacco: Former Cigarettes 1 20 2 002 - 2021 Smokeless Tobacco: Never Education Answer Date Recorded Are you interested [...] as food, clothing, or medical care? No 02/20/2024 In the past 12 months have y ou been in a relationship with a person who hurts, threatens, or tries to control you? No 02/20/2024 Are you denied basic needs s uch as food, clothing, or medical care? No 02/20/2024 In the past 12 months have y ou been in a relationship with a person who hurts, threatens, or tries to control you? No 02/20/2024 Sex and Gender Information Value Date Recorded Sex Assigned at Male 05/28/2022 1:30 PM EDT Legal Sex Male 9:41 PM EDT Gender Identity Male 05/28/2022 1:04 PM EDT Sexual Orientation Straight 05/28/2022 1: 30 PM EDT documented as of this encounter Plan of Treatment Upcoming Encounters Date Type Department Care Team (Late st Contact Info) Description 09/10/2024 Procedure Pass [address] [address] 09/10/2024 Procedure Pass [address] [address] 10/18/2024 Procedure Pass [facility] [address] [place] [address] 10/23/2024 Procedure Pass [facility] EKG [address] [place] [address] 10/23/2024 Procedure Pass [facility] EKG [address] [place] [address] 11/09/2024 10:30 AM EDT Appointment [address] [address] Hermelinda Barajas MD [address] [address] [email or web address] 11/13/2024 6:30 AM EDT Blood Draw Laboratory Services, [address], 2nd Floor [place], [place] Hermelinda Barajas MD [address] [place] [address] [email or web address] 11/13/2024 7:30 AM EDT Office Visit [facility], [address], 9th [place] [address] Hermelinda Barajas MD [address] [place] [address] Pedro@[email or web address] 11/13/2024 8:30 AM EDT Infusion Infusion Therapy Services [facility] 9, [address], 9th [place] [address] Hermelinda Barajas MD [address] [place] [address] Pedro@[email or web address] Patria Luevano, BRIELLE [address] [place] [address] [email or web address]@[email or web address] 11/16/2024 9:00 AM EDT Office Visit [facility]opaedics [address] [place] [address] Andrew Lima MD [address] [place] [address] Department [place] [address] [email or web address] 01/18/2025 7:35 AM EST Hospital Encounter [facility] EKG [address] [place] [address] Guanakito Gallardo MD [address] [place] [address] [email or web address] Arrived 01/18/2025 8:30 AM EST Appointment [facility] [address] [place] [address] Odalis Jimenez PA-C 70 [facility] 5th [place] [address] [email or web address] 02/01/2025 8:40 AM EST Office Visit [facility] Otolaryngology [address] [facility]2 [place] [address] Demetrio Armstrong MD [address] [place] [phone] [email or web address] 02/25/2025 9:30 AM EST Telemedicine [facility] Cardiovascular Clinic [address] [place] [address] Guanakito Gallardo MD [address] [place] [address] [email or web address] 07/04/2025 10:00 AM EDT Telemedicine [facility] [address] [place] [address] Thiago Bean MD [address] [place] [address] [email or web address] 10/18/2025 7:05 AM EDT Hospital Encounter [facility] EKG [address] [place] [address] Guanakito Gallardo MD [address] [place] [address] [place] [address] [email or web address] Arrived documented as of this encounter Visit Diagnoses Not on filedocumented in this encounter Care Teams Detail Drafter Relationship Specialty Start Date End Date Grecia Bonilla MD [address] [place] [address] [place] [address] PCP - General Internal Medicine 10/13/22 Indigo Du, [facility] [address] [place] [address] [email or web address] Text Transcriber Oncology 07/27/22 Hermelinda Barajas MD [address] [place] [address] [email or web address] Medical Oncology 11/29/22 Cindi Shell CNP [address] [place] [address] Fina @[facility] Gerontology 11/29/22 Carlos Alberto King MD, [place] [address] [place] [address] Jaelyn@[email or web address] Hospice and Palliative Care 04/05/24 Patria Luevano, BRIELLE [address] [place] [address] [email or web address]@[facility] Primary Infusion Nurse 05/15/24 Jennie Ferreira RN [address] [place] [address] [email or web address]@[email or web address] Associate Infusion Nurse 10/02/24 documented as of this encounter Additional Source Comments The information contained in this document represents components of the legal health record. It is not the complete legal health record.[facility]
--- OUTSIDE RECORDS SUMMARY | 2024-11-06 11:58 | XMS_ITS | Encounter Summary ---
Author Organization [facility] Address [address] [facility] [address] [place] [address] Phone Care Team Providers Care Sales Promoter Name Role Phone Indigo DuSW Unavailable Grecia Bonilla MD Primary Care Provider Hermelinda Barajas MD Unavailable [phone] Cindi Shell TRAINING MGR Unavailable Zuri Ha RN Unavailable Sandra [email or web address]@[email or web address].[facility] Carlos Alberto King MD, [place] Unavailable Patria Luevano RN Unavailable TOBIAS [email or web address]@[facility].[place].[facility] Jennie Ferreira RN Unavailable ALISON@ [facility].[place].[facility] Encounter Details Date Type Department Care Team (Late st Contact Info) Description 03/21/2024 Telephone [facility]ovascular Clinic [address] [place] [address] Thiago Bean MD 75 [place], [place] [phone] [email or web address] u Social History Tobacco Use Types Packs/Day Years [...] st Contact Info) Description 09/10/2024 Procedure Pass [address] [address] 09/10/2024 Procedure Pass [address] [address] 10/18/2024 Procedure Pass [facility] [address] [place] [address] 10/23/2024 Procedure Pass [facility] EKG [address] [place] [address] 10/23/2024 Procedure Pass [facility] EKG 70 [place] [address] 11/09/2024 10:30 AM EDT Appointment [address] [address] Hermelinda Barajas MD [address] [address] Pedro@[email or web address] 11/13/2024 6:30 AM EDT Blood Draw Laboratory Services, [address], 2nd Floor [place], [place] Hermelinda Barajas MD [address] [place] [address] Pedro@[facility] 11/13/2024 7:30 AM EDT Office Visit [facility], [address], 9th [place] [address] Hermelinda Barajas MD [address] [place] [address] Pedro@[facility] 11/13/2024 8:30 AM EDT Infusion Infusion Therapy Services [facility] 9, [address], 9th [place] [address] Hermelinda Barajas MD [address] [place] [address] Pedro@[email or web address] Patria Luevano, BRIELLE [address] [place] [address] [email or web address]@[facility] .[facility] 11/16/2024 9:00 AM EDT Office Visit [facility] 60 [place] [address] Andrew Lima MD [address] [place] [address] Department [place] [address] [email or web address] 01/18/2025 7:35 AM EST Hospital Encounter [facility] EKG 70 [place] [address] Guanakito Gallardo MD [address] [place] [address] [place] [address] [email or web address] Arrived 01/18/2025 8:30 AM EST Appointment [facility] [address] [place] [address] Odalis Jimenez PA-C 70 [facility] 5th [place] [address] [email or web address] 02/01/2025 8:40 AM EST Office Visit [facility] Otolaryngology [address] [facility] [place] [address] Demetrio Armstrong MD 45 [place] [phone] [email or web address] 02/25/2025 9:30 AM EST Telemedicine [facility] Cardiovascular Clinic 70 [place] [address] Guanakito Gallardo MD [address] [place] [address] [email or web address] 07/04/2025 10:00 AM EDT Telemedicine [facility] Cardiovascular Clinic 70 [place] [address] Thiago Bean MD [address] [place] [address] [email or web address] 10/18/2025 7:05 AM EDT Hospital Encounter [facility] EKG [address] [place] [address] Guanakito Gallardo MD [address] [place] [address] [email or web address] Arrived documented as of this encounter Visit Diagnoses Not on filedocumented in this encounter Additional Health Concerns Infection Onset Date Last Indicated Resolved Time CoV-Risk 07/17/2024 07/17/2024 07/28/2024 1:21 AM EDT documented as of this encounter Care Teams Sales Promoter Relationship Specialty Start Date End Date Grecia Bonilla MD [address] [place] [address] [place] [phone] PCP - General Internal Medicine 10/13/22 Indigo Du, [facility] [address] [place] [address] [email or web address] Airline Security Representative Oncology 07/27/22 Hermelinda Barajas MD [address] [place] [address] Pedro@[email or web address] Medical Oncology 11/29/22 Cindi Shell CNP [address] [place] [address] Fina @[facility] Gerontology 11/29/22 Zuri Ha RN [address] [place] [address] [email or web address]@[email or web address] Primary Infusion Nurse 01/10/24 05/14/24 Carlos Alberto King MD, [place] [address] [place] [address] Jaelyn@[facility] Hospice and Palliative Care 04/05/24 Patria Luevano, BRIELLE [address] [place] [address] STEFANO@[facility]. [facility] Primary Infusion Nurse 05/15/24 Jennie Ferreira RN 450 [place] [address] [email or web address]@[email or web address] Associate Infusion Nurse 10/02/24 documented as of this encounter Additional Source Comments The information contained in this document represents components of the legal health record. It is not the complete legal health record.[facility]
--- OUTSIDE RECORDS SUMMARY | 2024-11-06 11:58 | XMS_ITS | Encounter Summary ---
Author Organization [facility] Address [address] [place] [address] Phone Care Team Providers Care Rental Sales Agent Name Role Phone Indigo Du [facility] Unavailable Grecia Bonilla MD Primary Care Provider Hermelinda Barajas MD Unavailable [phone] Cindi Shell COMBATANT DIVER OFFICER Unavailable Carlos Alberto King MD, [place] Unavailable Patria Luevano RN Unavailable TOBIAS [email or web address] Jennie Ferreira RN Unavailable ALISON@ [email or web address] Encounter Details Date Type Department Care Team (Late st Contact Info) Description 09/24/2024 Procedure Pass [facility] Endoscopy Department [address] [place] [address] Social History Tobacco Use Types Packs/Day Years [...] st Contact Info) Description 09/10/2024 Procedure Pass [address] [address] 09/10/2024 Procedure Pass [address] [address] 10/18/2024 Procedure Pass [facility] 70 [place] [address] 10/23/2024 Procedure Pass [facility] EKG 70 [place] [address] 10/23/2024 Procedure Pass [facility] EKG 70 [place] [address] 11/09/2024 10:30 AM EDT Appointment [address] [address] Hermelinda Barajas MD [facility] Wendy Shen [address] [place] [address] [email or web address] 11/13/2024 6:30 AM EDT Blood Draw Laboratory Services, [facility] [address] [facility], 2nd Floor [place], [place] Hermelinda Barajas MD [address] [address] Pedro@[facility] 11/13/2024 7:30 AM EDT Office Visit [facility] for [facility] On[facility], [facility] [address] [facility], 9th [place] [address] Hermelinda Barajas MD [address] [place] [address] Pedro@[facility] 11/13/2024 8:30 AM EDT Infusion Infusion Therapy Services [place] [address], [facility] [address] [facility], 9th [place] [address] Hermelinda Barajas MD [address] [place] [address] Pedro@[facility] Patria Luevano RN 450 [place], [place] STEFANO@[facility] 11/16/2024 9:00 AM EDT Office Visit [facility] 60 [place] [address] Andrew Lima MD [address] [place] [address] Department [place] [address] [email or web address] 01/18/2025 7:35 AM EST Hospital Encounter [facility] EKG 70 [place] [address] Guanakito Gallardo MD 75 [place] [address] [email or web address] Arrived 01/18/2025 8:30 AM EST Appointment [facility] 70 [place] [address] Odalis Jimenez PA-C [address] [facility] 5th [place] [address] [email or web address] 02/01/2025 8:40 AM EST Office Visit [facility] Otolaryngology 45 [facility]2 [place] [address] Demetrio Armstrong MD 45 [place] [phone] [email or web address] 02/25/2025 9:30 AM EST Telemedicine [facility] Cardiovascular Clinic [address] [place] [address] Guanakito Gallardo MD [address] [place] [address] [email or web address] 07/04/2025 10:00 AM EDT Telemedicine [facility]ovascular Clinic [address] [place] [address] Thiago Bean MD [address] [place] [address] [email or web address] 10/18/2025 7:05 AM EDT Hospital Encounter [facility] EKG 70 [place] [address] Guanakito Gallardo MD [address] [place] [address] [email or web address] Arrived documented as of this encounter Visit Diagnoses Not on filedocumented in this encounter Care Teams Rental Sales Agent Relationship Specialty Start Date End Date Grecia Boinlla MD [address] [place] [address] [place] [address] PCP - General Internal Medicine 10/13/22 Indigo Du, [facility] [address] [place] [address] [email or web address] Saddle And Harness Maker Oncology 07/27/22 Hermelinda Barajas MD [address] [place] [address] 1240 [place] [address] [email or web address]@[email or web address] Medical Oncology 11/29/22 Cindi Shell CNP [address] [place] [address] Fina @[facility] Gerontology 11/29/22 Carlos Alberto King MD, [place] [address] [place] [address] Jaelyn@[facility] Hospice and Palliative Care 04/05/24 Patria Luevano, BRIELLE [address] [place] [address] [email or web address]@[facility] Primary Infusion Nurse 05/15/24 Jennie Ferreira, BRIELLE [address] [place] [address] [email or web address] Associate Infusion Nurse 10/02/24 documented as of this encounter Additional Source Comments The information contained in this document represents components of the legal health record. It is not the complete legal health record.[facility]
--- OUTSIDE RECORDS SUMMARY | 2024-11-06 11:58 | XMS_ITS | Encounter Summary ---
Author Organization [facility] Address [address] [place] [address] Phone Care Team Providers Care Factory Worker Name Role Phone Indigo Du SKI MAKER Unavailable [phone] Grecia Bonilla MD Primary Care Provider Hermelinda Barajas MD Unavailable [phone] Cindi Shell [facility] Unavailable Carlos Alberto [place] MD, [place] Unavailable Ptaria Luevano RN Unavailable TOBIAS [email or web address] Jennie Ferreira RN Unavailable ALISON@ [facility].[place] Encounter Details Date Type Department Care Team (Late st Contact Info) Description 05/15/2024 Procedure Pass [facility], [address] [address] Social History Tobacco Use Types Packs/Day Years [...] st Contact Info) Description 09/10/2024 Procedure Pass [address] [address] 09/10/2024 Procedure Pass [address] [address] 10/18/2024 Procedure Pass [facility] 70 [place] [address] 10/23/2024 Procedure Pass [facility] EKG 70 [place] [address] 10/23/2024 Procedure Pass [facility] EKG 70 [place] [address] 11/09/2024 10:30 AM EDT Appointment [address] [address] Hermelinda Barajas MD [address] [place] [address] [email or web address] 11/13/2024 6:30 AM EDT Blood Draw Laboratory Services, [facility] [address] [facility], 2nd Floor [place], [place] Hermelinda Barajas MD [address] [place] [address] Pedro@[email or web address] 11/13/2024 7:30 AM EDT Office Visit [facility], [facility] 450 [facility], 9th [place] [address] Hermelinda Barajas MD [address] [place] [address] Pedro@[facility] 11/13/2024 8:30 AM EDT Infusion Infusion Therapy Services [facility] 9, [facility] 450 [facility], 9th [place] [address] Hermelinda Barajas MD [address] [place] [address] Pedro@[email or web address] Patria Luevano, BRIELLE [address] [place], [place] STEFANO@[facility] .[facility] 11/16/2024 9:00 AM EDT Office Visit [facility] Department of Orthopaedics 60 [place] [address] Andrew Lima MD [address] [place] [address] Department [place] [address] [email or web address] 01/18/2025 7:35 AM EST Hospital Encounter [facility] EKG 70 [place] [address] Guanakito Gallardo MD [address] [place] [address] [place] [address] Arrived 01/18/2025 8:30 AM EST Appointment [facility] 70 [place] [address] Odalis Jimenez PA-C 70 [facility] 5th [place] [address] [email or web address] 02/01/2025 8:40 AM EST Office Visit [facility] Otolaryngology 45 [facility] [place] [address] eDmetrio Armstrong MD 45 [place] [phone] [email or web address] 02/25/2025 9:30 AM EST Telemedicine [facility] Cardiovascular Clinic 70 [place] [address] Guanakito Gallardo MD [address] [place] [address] [place] [address] [email or web address] 07/04/2025 10:00 AM EDT Telemedicine [facility] Cardiovascular Clinic [address] [place] [address] Thiago Bean MD [address] [place] [address] [email or web address] 10/18/2025 7:05 AM EDT Hospital Encounter [facility] EKG 70 [place] [address] Guanakito Gallardo MD [address] [place] [address] [place] [address] [email or web address] Arrived documented as of this encounter Visit Diagnoses Not on filedocumented in this encounter Additional Health Concerns Infection Onset Date Last Indicated Resolved Time CoV-Risk 07/17/2024 07/17/2024 07/28/2024 1:21 AM EDT documented as of this encounter Care Teams Factory Worker Relationship Specialty Start Date End Date Grecia Bonilla MD [address] [place] [address] [place] [address] PCP - General Internal Medicine 10/13/22 Indigo Du, [facility] 300 [place] [address] [email or web address] Soloist Dancer Oncology 07/27/22 Hermelinda Barajas MD [address] [place] [address] 1240 [place] [address] Pedro@[facility] Medical Oncology 11/29/22 Cindi Shell CNP [address] [place] [address] Fina @[facility] Gerontology 11/29/22 Carlos Alberto [place] MD, [place] [address] [place] [address] Jaelyn@[facility] Hospice and Palliative Care 04/05/24 Patria Luevano, BRIELLE [address] [place] [address] [email or web address]@[facility] Primary Infusion Nurse 05/15/24 Jennie Ferreira RN [address] [place] [address] ALISON@[facility] Associate Infusion Nurse 10/02/24 documented as of this encounter Additional Source Comments The information contained in this document represents components of the legal health record. It is not the complete legal health record.[facility]
--- OUTSIDE RECORDS SUMMARY | 2024-11-06 11:58 | XMS_ITS | Encounter Summary ---
Author Organization [facility] Address [address] [place] [address] Phone Care Team Providers Care Marine Services Technician Name Role Phone Indigo DuSW Unavailable Grecia Bonilla MD Primary Care Provider Hermelinda Barajas MD Unavailable [phone] Cindi Shell [employer] Unavailable Zuri Ha RN Unavailable Sandra [email or web address] Carlos Alberto [place] MD, [place] Unavailable [phone] Patria Luevano RN Unavailable TOBIAS HYATT@[email or web address] Jennie Ferreira RN Unavailable ALISON@ [email or web address] Encounter Details Date Type Department Care Team (Late st Contact Info) Description 03/22/2023 Procedure Pass [facility] Echocardiography 70 [place] [address] Social History Tobacco Use Types Packs/Day Years [...] with a working camera? Not on file Sex and Gender Information Value Date Recorded Sex Assigned at Male 05/28/2022 1:30 PM EDT Legal Sex Male 9:41 PM EDT Gender Identity Male 05/28/2022 1:04 PM EDT Sexual Orientation Straight 05/28/2022 1: 30 PM EDT documented as of this encounter Plan of Treatment Upcoming Encounters Date Type Department Care Team (Late st Contact Info) Description 09/10/2024 Procedure Pass [address] [address] 09/10/2024 Procedure Pass [address] [address] 10/18/2024 Procedure Pass [facility] and Women[facility] Radiology 70 [place] [address] 10/23/2024 Procedure Pass [facility] EKG 70 [place] [address] 10/23/2024 Procedure Pass [facility] EKG 70 [place] [address] 11/09/2024 10:30 AM EDT Appointment [address] [address] Hermelinda Barajas MD [address] [address] Pedro@[facility] 11/13/2024 6:30 AM EDT Blood Draw Laboratory Services, [facility] 450 [facility], 2nd [place] [address] Hermelinda Barajas MD [address] [address] Pedro@[facility] 11/13/2024 7:30 AM EDT Office Visit [facility] Center for Thoracic Oncology, Hermelinda-[address], [address]th [place] [address] Hermelinda Barajas MD [address] [place] [address] Pedro@[facility] 11/13/2024 8:30 AM EDT Infusion Infusion Therapy Services [address], [address]th [place] [address] Hermelinda Barajas MD [address] [place] [address] Pedro@[facility] Partia Luevano RN [address] [place] [address] [email or web address]@[email or web address] .[facility] 11/16/2024 9:00 AM EDT Office Visit [facility] Department of Orthopaedics [address] [place] [address] Andrew Lima MD [address] [place] [address] Department [place] [address] [email or web address] 01/18/2025 7:35 AM EST Hospital Encounter [facility] EKG 70 [place] [address] Guanakito Gallardo MD [address] [place] [address] [place] [address] [facility] 01/18/2025 8:30 AM EST Appointment [facility] Radiology 70 [place] [address] Odalis Jimenez PA-C 70 [facility] 5th [place] [address] [email or web address] 02/01/2025 8:40 AM EST Office Visit [facility] Otolaryngology 45 [facility] ASB2-2 [place] [address] Demetrio Armstrong MD 45 [place] [address] [email or web address] 02/25/2025 9:30 AM EST Telemedicine [facility] Cardiovascular Clinic 70 [place] [address] Guanakito Gallardo MD [address] [place] [address] [email or web address] 07/04/2025 10:00 AM EDT Telemedicine [facility] Cardiovascular Clinic 70 [place] [address] Thiago Bean MD [address] [place] [address] [email or web address] 10/18/2025 7:05 AM EDT Hospital Encounter [facility] EKG 70 [place] [address] Guanakito Gallardo MD [address] [place] [address] [email or web address] Arrived documented as of this encounter Visit Diagnoses Not on filedocumented in this encounter Additional Health Concerns Infection Onset Date Last Indicated Resolved Time COVID-19 04/06/2023 04/06/2023 04/27/2023 1:21 AM EST CoV-Risk 07/17/2024 07/17/2024 07/28/2024 1:21 AM EDT documented as of this encounter Care Teams Marine Services Technician Relationship Specialty Start Date End Date Grecia Bonilla MD [address] [place] [address] [place] [address] PCP - General Internal Medicine 10/13/22 Indigo Du, [place] [address] [place] [address] [email or web address] Supervisor Of Guidance And Testing Oncology 07/27/22 Hemrelinda Barajas MD [address] [place] [address] 1240 [place] [address] Pedro@[facility] Medical Oncology 11/29/22 Cindi Shell CNP [address] [place] [address] Fina @[facility] Gerontology 11/29/22 Zuri Ha RN [address] [place] [address] Milton@[facility] Primary Infusion Nurse 01/10/24 05/14/24 Carlos Alberto [place] MD, [place] [address] [place] [address] Jaelyn@[facility] Hospice and Palliative Care 04/05/24 Patria Luevano, BRIELLE [address] [place] [address] STEFANO@[facility]. [facility] Primary Infusion Nurse 05/15/24 Jennie Ferreira, BRIELLE [address] [place] [address] [email or web address] Associate Infusion Nurse 10/02/24 documented as of this encounter Additional Source Comments The information contained in this document represents components of the legal health record. It is not the complete legal health record.[facility]
--- OUTSIDE RECORDS SUMMARY | 2024-11-06 11:58 | XMS_ITS | Encounter Summary ---
Author Organization [facility] Address [address] [place] [address] Phone Care Team Providers Care Fitness Director Name Role Phone Indigo DuSW Unavailable Grecia Bonilla MD Primary Care Provider Hermelinda Barajas MD Unavailable [phone] Cindi Shell [facility] Unavailable Carlos Alberto [place] MD, [place] Unavailable [phone] Patria Luevano RN Unavailable TOBIAS YHATT@[facility].[place].[facility] Jennie Ferreira RN Unavailable ALISON@ [facility].[place] Encounter Details Date Type Department Care Team (Late st Contact Info) Description 09/25/2024 Procedure Pass [facility] 70 [place] [address] Social History Tobacco Use Types Packs/Day Years [...] st Contact Info) Description 09/10/2024 Procedure Pass [address] [address] 09/10/2024 Procedure Pass [address] [address] 10/18/2024 Procedure Pass [facility] 70 [place] [address] 10/23/2024 Procedure Pass [facility] EKG 70 [place] [address] 10/23/2024 Procedure Pass [facility] EKG 70 [place] [address] 11/09/2024 10:30 AM EDT Appointment [address] [address] Hermelinda Barajas MD [facility] Wendy Shen 1240 [place] [address] Pedro@[facility] 11/13/2024 6:30 AM EDT Blood Draw Laboratory Services, [facility] 450 [facility], 2nd Floor [place], [place] Hermelinda Barajas MD [address] [place] [address] [place] [address] Pedro@[facility] 11/13/2024 7:30 AM EDT Office Visit [facility] for Thoracic On[facility], [facility] 450 [facility], 9th [place] [address] Hermelinda Barajas MD [address] [place] [address] Pedro@[facility] 11/13/2024 8:30 AM EDT Infusion Infusion Therapy Services [facility] 9, [facility] 450 [facility], 9th [place] [address] Hermelinda Barajas MD [address] [place] [address] Pedro@[facility] Patria Luevano RN 450 [place], [place] STEFANO@[facility] .[facility] 11/16/2024 9:00 AM EDT Office Visit [facility] Department of Orthopaedics 60 [place] [address] Andrew Lima MD [address] [place] [address] Department [place] [address] [email or web address] 01/18/2025 7:35 AM EST Hospital Encounter [facility] EKG 70 [place] [address] Guanakito Gallardo MD [address] [place] [address] Card[place] [address] Arrived 01/18/2025 8:30 AM EST Appointment [facility] 70 [place] [address] Odalis Jimenez PA-C 70 [facility] 5th [place] [address] [email or web address] 02/01/2025 8:40 AM EST Office Visit [facility] Otolaryngology 45 [facility] [place] [address] Demetrio Armstrong MD 45 [place] [phone] [email or web address] 02/25/2025 9:30 AM EST Telemedicine [facility] Cardiovascular Clinic 70 [place] [address] Guanakito Gallardo MD [address] [place] [address] [email or web address] 07/04/2025 10:00 AM EDT Telemedicine [facility] Cardiovascular Clinic [address] [place] [address] Thiago Bean MD [address] [place] [address] [email or web address] 10/18/2025 7:05 AM EDT Hospital Encounter [facility] EKG 70 [place] [address] Guanakito Gallardo MD [address] [place] [address] [email or web address] Arrived documented as of this encounter Visit Diagnoses Not on filedocumented in this encounter Care Teams Fitness Director Relationship Specialty Start Date End Date Grecia Bonilla MD [address] [place] [address] [place] [address] PCP - General Internal Medicine 10/13/22 Indigo Du, PETROLEUM PLANT OPERATOR [address] [place] [address] [email or web address]. [facility] Hydraulic Rock Drill Operator Oncology 07/27/22 Hermelinda Barajas MD [address] [place] [address] 1240 [place] [address] Pedro@[facility] Medical Oncology 11/29/22 Cindi Shell CNP [address] [place] [address] Fina @[facility] Gerontology 11/29/22 Carlos Alberto King MD, [place] [address] [place] [address] Jaelyn@[facility] Hospice and Palliative Care 04/05/24 Patria Luevano, BRIELLE [address] [place] [address] STEFANO@[facility]. [facility] Primary Infusion Nurse 05/15/24 Jennie Ferreira, BRIELLE [address] [place] [address] [email or web address] Associate Infusion Nurse 10/02/24 documented as of this encounter Additional Source Comments The information contained in this document represents components of the legal health record. It is not the complete legal health record.[facility]
--- OUTSIDE RECORDS SUMMARY | 2024-11-06 11:58 | XMS_ITS | Encounter Summary ---
Author Organization [facility] Address [address] [place] [address] Phone Care Team Providers Care Ammonia Box Tender Name Role Phone Indigo DuSW Unavailable [phone] Grecia Boinlla MD Primary Care Provider Hermelinda Barajas MD Unavailable [phone] Cindi Shell CHEMICALS DISTILLER Unavailable Zuri Ha RN Unavailable Sandra Ruiz@[email or web address].[place] Carlos Alberto King MD, [place] Unavailable Patria Luevano RN Unavailable TOBIAS HYATT@[facility].[place] Jennie Ferreira RN Unavailable ALISON@ [facility].[place] Encounter Details Date Type Department Care Team (Late st Contact Info) Description 03/22/2023 Procedure Pass [facility] 70 [place] [address] Social History Tobacco Use Types Packs/Day Years [...] st Contact Info) Description 09/10/2024 Procedure Pass [address] [address] 09/10/2024 Procedure Pass [address] [address] 10/18/2024 Procedure Pass [facility] 70 [place] [address] 10/23/2024 Procedure Pass [facility] EKG 70 [place] [address] 10/23/2024 Procedure Pass [facility] EKG 70 [place] [address] 11/09/2024 10:30 AM EDT Appointment [address] [address] Hermelinda Barajas MD [address] [address] Pedro@[facility] 11/13/2024 6:30 AM EDT Blood Draw Laboratory Services, [facility] 450 [facility], 2nd [place] [address] Hermleinda Barajas MD [address] [address] Pedro@[facility] 11/13/2024 7:30 AM EDT Office Visit [facility] Center for Thoracic Oncology, [address], [address] [place] [address] Hermelinda Barajas MD [address] [place] [address] Pedro@[facility] 11/13/2024 8:30 AM EDT Infusion Infusion Therapy Services [address], [address]th [place] [address] Hermelinda Barajas MD [address] [place] [address] Pedro@[facility] Patria Luevano RN [address] [place] [address] STEFANO@[facility] .[facility] 11/16/2024 9:00 AM EDT Office Visit [facility] and [facility] Department of Orthopaedics [address] [place] [address] Andrew Lima MD [address] [place] [address] Department [place] [address] [email or web address] 01/18/2025 7:35 AM EST Hospital Encounter [facility] EKG 70 [place] [address] Guanakito Gallardo MD [address] [place] [address] [place] [address] [email or web address] [facility] 01/18/2025 8:30 AM EST Appointment [facility] Radiology 70 [place] [address] Odalis Jimenez PA-C 70 [facility] 5th [place] [address] [email or web address] 02/01/2025 8:40 AM EST Office Visit [facility] Otolaryngology 45 [facility] ASB2-2 [place] [address] Demetrio Armstrong MD 45 [place] [address] [email or web address] 02/25/2025 9:30 AM EST Telemedicine [facility] Cardiovascular Clinic 70 [place] [address] Guanakito Gallardo MD [address] [place] [address] [email or web address] 07/04/2025 10:00 AM EDT Telemedicine [facility] Cardiovascular Clinic 70 [place] [address] Thiago Bean MD [address] [place] [address] [email or web address] 10/18/2025 7:05 AM EDT Hospital Encounter [facility] EKG 70 [place] [address] Guanakito Gallardo MD [address] [place] [address] [email or web address] Arrived documented as of this encounter Visit Diagnoses Not on filedocumented in this encounter Additional Health Concerns Infection Onset Date Last Indicated Resolved Time COVID-19 04/06/2023 04/06/2023 04/27/2023 1:21 AM EST CoV-Risk 07/17/2024 07/17/2024 07/28/2024 1:21 AM EDT documented as of this encounter Care Teams Ammonia Box Tender Relationship Specialty Start Date End Date Grecia Bonilla MD [address] [place] [address] [place] [phone] PCP - General Internal Medicine 10/13/22 Indigo Du, 3D SPECIALIST [address] [place] [address] [email or web address] Oncology 07/27/22 Hermelinda Barajas MD [address] [place] [address] 1240 [place] [address] Pedro@[facility] Medical Oncology 11/29/22 Cindi Shell CNP [address] [place] [address] Fina @[facility] Gerontology 11/29/22 uZri Ha RN [address] [place] [address] Milton@[facility] Primary Infusion Nurse 01/10/24 05/14/24 Carlos Alberto King MD, [place] [address] [place] [address] Jaelyn@[facility] Hospice and Palliative Care 04/05/24 Patria Luevano, BRIELLE [address] [place] [address] STEFANO@[facility] Primary Infusion Nurse 05/15/24 Jennie Ferreira, BRIELLE [address] [place] [address] ALISON@[facility] Associate Infusion Nurse 10/02/24 documented as of this encounter Additional Source Comments The information contained in this document represents components of the legal health record. It is not the complete legal health record.[facility]
--- OUTSIDE RECORDS SUMMARY | 2024-11-06 11:58 | XMS_ITS | Encounter Summary ---
Author Organization [facility] Address [address] [place] [address] Phone Care Team Providers Care Senior Java Ui Developer Name Role Phone Indigo DuSW Unavailable Grecia Bonilla MD Primary Care Provider Hermelinda Barajas MD Unavailable [phone] Cindi Shell CHARGE OPERATOR Unavailable [phone] Zuri Ha RN Unavailable Sandra [email or web address] Carlos Alberto King MD, [place] Unavailable Patria Luevano RN Unavailable TOBIAS [email or web address] Jennie Ferreira RN Unavailable ALISON@ [email or web address] Encounter Details Date Type Department Care Team (Late st Contact Info) Description 01/10/2024 Procedure Pass [facility], [address] [address] Social History Tobacco Use Types Packs/Day Years [...] st Contact Info) Description 09/10/2024 Procedure Pass [address] [address] 09/10/2024 Procedure Pass [address] [address] 10/18/2024 Procedure Pass [facility] [address] [place] [address] 10/23/2024 Procedure Pass [facility] EKG [address] [place] [address] 10/23/2024 Procedure Pass [facility] EKG 70 [place] [address] 11/09/2024 10:30 AM EDT Appointment [address] [address] Hermelinda Barajas MD [address] [address] Pedro@[facility] 11/13/2024 6:30 AM EDT Blood Draw Laboratory Services, [facility] [place] 450 [facility], 2nd [place] [address] Hermelinda Barajas MD [address] [address] [email or web address] 11/13/2024 7:30 AM EDT Office Visit [facility], [facility] 450 [facility], 9th [place] [address] Hermelinda Barajas MD [address] [place] [address] Pedro@[facility] 11/13/2024 8:30 AM EDT Infusion Infusion Therapy Services [place] [facility] 450 [facility], 9th [place] [address] Hermelinda Barajas MD [address] [place] [address] Pedro@[facility] Patria Luevano RN [address] [place] [address] [email or web address]@[facility] 11/16/2024 9:00 AM EDT Office [facility] Department of Orthopaedics [address] [place] [address] Andrew Lima MD [address] [place] [address] Department [place] [address] [email or web address] 01/18/2025 7:35 AM EST Hospital Encounter [facility] EKG 70 [place] [address] Guanakito Gallardo MD [address] [place] [address] [place] [address] [facility] 01/18/2025 8:30 AM EST Appointment [facility] Radiology 70 [place] [address] Odalis Jimenez PA-C 70 [facility] 5th [place] [address] [email or web address] 02/01/2025 8:40 AM EST Office Visit [facility] Otolaryngology 45 [facility] ASB[facility]2 [place] [address] Demetrio Armstrong MD 45 [place] [address] [email or web address] 02/25/2025 9:30 AM EST Telemedicine [facility] 70 [place] [address] Guanakito Gallardo MD [address] [place] [address] [email or web address] 07/04/2025 10:00 AM EDT Telemedicine [facility] 70 [place] [address] Thiago Bean MD [address] [place] [address] [email or web address] 10/18/2025 7:05 AM EDT Hospital Encounter [facility] EKG 70 [place] [address] Guanakito Gallardo MD [address] [place] [address] Arrived documented as of this encounter Visit Diagnoses Not on filedocumented in this encounter Additional Health Concerns Infection Onset Date Last Indicated Resolved Time CoV-Risk 07/17/2024 07/17/2024 07/28/2024 1:21 AM EDT documented as of this encounter Care Teams Senior Java Ui Developer Relationship Specialty Start Date End Date Grecia Bonilla MD [address] [place] [address] [place] [address] PCP - General Internal Medicine 10/13/22 Indigo Du, [facility] 300 [place] [address] [email or web address] Manager Sap Oncology 07/27/22 Hermelinda Barajas MD [address] [place] [address] Pedro@[email or web address] Medical Oncology 11/29/22 Cindi Shell CNP [address] [place] [address] Fina @[facility] Gerontology 11/29/22 Zuri Ha RN [address] [place] [address] Milton@[facility] Primary Infusion Nurse 01/10/24 05/14/24 Carlos Alberto King MD, [place] [address] [place] [address] Jaelyn@[email or web address] Hospice and Palliative Care 04/05/24 Patria Luevano, BRIELLE [address] [place] [address] [email or web address]@[facility] Primary Infusion Nurse 05/15/24 Jennie Ferreira, BRIELLE [address] [place] [address] ALISON@[facility] Associate Infusion Nurse 10/02/24 documented as of this encounter Additional Source Comments The information contained in this document represents components of the legal health record. It is not the complete legal health record.[facility]
--- OUTSIDE RECORDS SUMMARY | 2024-11-06 11:58 | XMS_ITS | Encounter Summary ---
Author Organization [facility] Address [address] [place] [address] Phone Care Team Providers Care Data Acquisition Technician Name Role Phone Indigo Du RECORDS AND TAPE RECORDINGS ENGINEER Unavailable Grecia Bonilla MD Primary Care Provider Hermelinda Barajas MD Unavailable [phone] Cindi Shell LAB TECHNOLOGIST Unavailable Carlos Alberto King MD, [place] Unavailable [phone] Patria Luevano RN Unavailable TOBIAS [email or web address] Jennie Ferreira RN Unavailable ALISON@ [email or web address] Encounter Details Date Type Department Care Team (Late st Contact Info) Description 10/18/2024 Procedure Pass [facility] Electrophysiology Lab [address] [place] [address] Social History Tobacco Use Types Packs/Day Years [...] st Contact Info) Description 09/10/2024 Procedure Pass [address] [address] 09/10/2024 Procedure Pass [address] [address] 10/18/2024 Procedure Pass [facility] 70 [place] [address] 10/23/2024 Procedure Pass [facility] EKG 70 [place] [address] 10/23/2024 Procedure Pass [facility] EKG 70 [place] [address] 11/09/2024 10:30 AM EDT Appointment [address] [address] Hermelinda Barajas MD 450 Wendy Shen 1240 [place] [address] [email or web address] 11/13/2024 6:30 AM EDT Blood Draw Laboratory Services, [facility] 450 [facility], 2nd Floor [place], [place] Hermelinda Barajas MD [address] [place] [address] Pedro@[facility] 11/13/2024 7:30 AM EDT Office Visit [facility], [facility] 450 [facility], 9th [place] [address] Hermelinda Barajas MD [address] [place] [address] Pedro@[facility] 11/13/2024 8:30 AM EDT Infusion Infusion Therapy Services [place] 9, [facility] 450 [facility], 9th [place] [address] Hermelinda Barajas MD [address] [place] [address] Pedro@[facility] Patria Luevano RN 450 [place] [email or web address] .[facility] 11/16/2024 9:00 AM EDT Office Visit [facility] Department of Orthopaedics 60 [place] [address] Andrew Lima MD [address] [place] [address] Department [place] [address] [email or web address] 01/18/2025 7:35 AM EST Hospital Encounter [facility] EKG 70 [place] [address] Guanakito Gallardo MD [address] [place] [address] Card[place] [address] Arrived 01/18/2025 8:30 AM EST Appointment [facility] 70 [place] [address] Odalis Jimenez PA-C 70 [facility] 5th [place] [address] [email or web address] 02/01/2025 8:40 AM EST Office Visit [facility] Otolaryngology 45 [facility] [place] [address] Demetrio Armstrong MD 45 [place] [address] [email or web address] 02/25/2025 9:30 AM EST Telemedicine [facility] 70 [place] [address] Guanakito Gallardo MD [address] [place] [address] [email or web address] 07/04/2025 10:00 AM EDT Telemedicine [facility] 70 [place] [address] Thiago Bean MD [address] [place] [address] [email or web address] 10/18/2025 7:05 AM EDT Hospital Encounter [facility] EKG 70 [place] [address] Guanakito Gallardo MD [address] [place] [address] [place] [address] [email or web address] Arrived documented as of this encounter Visit Diagnoses Not on filedocumented in this encounter Care Teams Data Acquisition Technician Relationship Specialty Start Date End Date Grecia Bonilla MD [address] [place] [address] [place] [address] PCP - General Internal Medicine 10/13/22 Indigo Du, [facility] 300 [place] [address] [email or web address] Facilities Locator Oncology 07/27/22 Hermelinda Barajas MD [address] [place] [address] 1240 [place] [address] [email or web address]@[facility] Medical Oncology 11/29/22 Cindi Shell CNP [address] [place] [address] Fina @[facility] Gerontology 11/29/22 Carlos Alberto King MD, [place] [address] [place] [address] Jaelyn@[facility] Hospice and Palliative Care 04/05/24 Patria Luevano, BRIELLE [address] [place] [address] STEFANO@[facility]. [facility] Primary Infusion Nurse 05/15/24 Jennie Ferreira, BRIELLE [address] [place] [address] ALISON@[email or web address] Associate Infusion Nurse 10/02/24 documented as of this encounter Additional Source Comments The information contained in this document represents components of the legal health record. It is not the complete legal health record.[facility]
--- OUTSIDE RECORDS SUMMARY | 2024-11-06 11:58 | XMS_ITS | Encounter Summary ---
Author Organization [facility] Address [address] [facility] [address] [address] [place] [address] Phone Care Team Providers Care Senior Cyber Intelligence Analyst Name Role Phone Indigo Du VARNISH FINISHER Unavailable Grecia Bonilla MD Primary Care Provider Hermelinda Barajas MD Unavailable [phone] Cindi Shell BLOCK BREAKER Unavailable Carlos Alberto King MD, [place] Unavailable [phone] Patria Luevano RN Unavailable TOBIAS [email or web address] Jennie Ferreira RN Unavailable ALISON@ [facility] Reason for Referral * MRI/CAT Scan - Closed Specialty Diagnoses / Procedures Referred By Sarah moser Referred To Contact Radiology Diagnoses Retinal artery occlusion Paroxysmal atrial fibrillation Procedures CT 3D Reconstruction CT Angio Chest CHG 3D RENDERING W/INTERP&POSTPROC DIFF WORK STATION Yeimy Holder PA-C [address] [place] [address] Phone: tel: fax:[phone] mailto:[email or web address] Referral ID Status Reason Start Date Expiration Date Visits Re quested Visits Authorized [id number] Closed 10/17/2024 04/15/2025 1 1 Encounter Details Date Type Department Care Team (Latest Contact Info) Description 10/17/2024 Ancillary Orders [facility] 75 [place] [address] Yeimy Holder PA-C [address] [place] [address] [email or web address] Retinal artery occlusion (Primary Dx); Paroxysmal atrial fibrillation Social History Tobacco Use Types Packs/Day Years Used Date Smoking Tobacco: Former Cigarettes 1 20 2 2021 Smokeless Tobacco: Never Alcohol Use Standard [...] st Contact Info) Description 09/10/2024 Procedure Pass [facility], Ct Scan - [address] [address] 09/10/2024 Procedure Pass [facility], [facility] 30 [place] [address] 10/18/2024 Procedure Pass [facility] 70 [place] [address] 10/23/2024 Procedure Pass [facility] EKG 70 [place] [address] 10/23/2024 Procedure Pass [facility] EKG 70 [place] [address] 11/09/2024 10:30 AM EDT Appointment [facility], [facility] 30 [place] [address] Hermelinda Barajas MD [address] [address] Pedro@[email or web address] 11/13/2024 6:30 AM EDT Blood Draw Laboratory Services, [address], 2nd [place] [address] Hermelinda Barajas MD [address] [place] [address] Pedro@[facility] 11/13/2024 7:30 AM EDT Office Visit [facility], [facility] 450 [facility], 9th [place] [address] Hermelinda Barajas MD [address] [place] [address] Pedro@[facility] 11/13/2024 8:30 AM EDT Infusion Infusion Therapy Services [place] 9, [facility] 450 [facility], 9th [place] [address] Hermelinda Barajas MD [address] [place] [address] 1240 [place] [address] Pedro@[email or web address] Patria Luevano, BRIELLE [address] [place] [address] STEFANO@[facility] .[facility] 11/16/2024 9:00 AM EDT Office Visit [facility] Department of Orthopaedics 60 [place] [address] Andrew Lima MD [address] [place] [address] Department of [place] [address] [email or web address] 01/18/2025 7:35 AM EST Hospital Encounter [facility] EKG 70 [place] [address] Guanakito Gallardo MD [address] [place] [address] [place] [address] [email or web address] [facility] 01/18/2025 8:30 AM EST Appointment [facility] Radiology 70 [place] [address] Odalis Jimenez PA-C 70 [facility] 5th [place] [address] [email or web address] 02/01/2025 8:40 AM EST Office Visit [facility] Otolaryngology 45 [facility] ASB2-2 [place] [address] Demetrio Armstrong MD 45 [place] [address] [email or web address] 02/25/2025 9:30 AM EST Telemedicine [facility] 70 [place] [address] Guanakito Gallardo MD [address] [place] [address] Card[place] [address] [email or web address] 07/04/2025 10:00 AM EDT Telemedicine [facility] Clinic 70 [place] [address] Thiago Bean MD 75 [place] [address] [email or web address] 10/18/2025 7:05 AM EDT Hospital Encounter [facility] EKG [address] [place] [address] Guanakito Gallardo MD [address] [place] [address] [place] [address] [email or web address] Arrived documented as of this encounter Results * CT 3D Reconstruction CT Angio Chest [...] created by Godwin Calabrese. Yeimy Holder PA-C IMG CT Final Resul t documented in this encounter Visit Diagnoses Diagnosis Retinal artery occlusion Unspecified retinal vascular occlusion Paroxysmal atrial fibrillation Atrial fibrillation Retinal artery occlusion- Primary Unspecified retinal vascular occlusion Paroxysmal atrial fibrillation Atrial fibrillation Paroxysmal atrial fibrillation Atrial fibrillation Paroxysmal atrial fibrillation Atrial fibrillation documented in this encounter Care Teams Senior Cyber Intelligence Analyst Relationship Specialty Start Date End Date Grecia Bonilla MD [address] [place] [address] [place] [address] PCP - General Internal Medicine 10/13/22 Indigo Du LICSW 300 [place] [address] [email or web address] Contract Administration Manager Oncology 07/27/22 Hermelinda Barajas MD [address] [place] [address] Mariah Shen [address] [place] [address] Pedro@[facility] Medical Oncology 11/29/22 Cindi Shell CNP [address] [place] [address] Fina @[facility] Gerontology 11/29/22 Carlos Alberto King MD, [place] [address] [place] [address] Jaelyn@[facility] Hospice and Palliative Care 04/05/24 Patria Luevano, BRIELLE [address] [place] [address] [email or web address]@[email or web address] Primary Infusion Nurse 05/15/24 Jennie Ferreira, BRIELLE [address] [place] [address] ALISON@[facility] Associate Infusion Nurse 10/02/24 documented as of this encounter Additional Source Comments The information contained in this document represents components of the legal health record. It is not the complete legal health record.[facility]
--- OUTSIDE RECORDS SUMMARY | 2024-11-06 11:58 | XMS_ITS | Encounter Summary ---
Author Organization [facility] Address [address] [place] [address] Phone Care Team Providers Care Cardroom Hand Name Role Phone Indigo DuSW Unavailable Grecia Bonilla MD Primary Care Provider Hermelinda Barajas MD Unavailable [phone] Cindi Shell FRUIT PRESS OPERATOR Unavailable Zuri Ha RN Unavailable Sandra Ruiz@[facility] Carlos Alberto King MD, [place] Unavailable Patria Luevano RN Unavailable TOBIAS [email or web address]@[email or web address].[place] Jennie Ferreira RN Unavailable ALISON@ [facility] Encounter Details Date Type Department Care Team (Late st Contact Info) Description 03/22/2023 Procedure Pass [facility] 70 [place] [address] Social History Tobacco Use Types Packs/Day Years [...] Contact Info) Description 09/10/2024 Procedure Pass [address] [address] 09/10/2024 Procedure Pass [address] [address] 10/18/2024 Procedure Pass [facility] [address] [place] [address] 10/23/2024 Procedure Pass [facility] EKG 70 [place] [address] 10/23/2024 Procedure Pass [facility] EKG 70 [place] [address] 11/09/2024 10:30 AM EDT Appointment [address] [address] Hermelinda Barajas MD [address] [address] Pedro@[facility] 11/13/2024 6:30 AM EDT Blood Draw Laboratory Services, [facility] [address] [facility], 2nd [place] [address] Hermelinda Barajas MD [address] [address] Pedro@[facility] 11/13/2024 7:30 AM EDT Office Visit [facility], [address], [address]th [place] [address] Hermelinda Barajas MD [address] [place] [address] Pedro@[facility] 11/13/2024 8:30 AM EDT Infusion Infusion Therapy Services [address], [address] [place] [address] Hermelinda Baraajs MD [address] [place] [address] Pedro@[facility] Patria Luevano RN [address] [place] [address] STEFANO@[facility] .[facility] 11/16/2024 9:00 AM EDT Office Visit [facility] Department of Orthopaedics [address] [place] [address] Andrew Lima MD [address] [place] [address] Department [place] [address] [email or web address] 01/18/2025 7:35 AM EST Hospital Encounter [facility] EKG 70 [place] [address] Guanakito Gallardo MD [address] [place] [address] [place] [address] [email or web address] 01/18/2025 8:30 AM EST Appointment [facility] Radiology 70 [place] [address] Odalis Jimenez PA-C 70 [facility] 5th [place] [address] [email or web address] 02/01/2025 8:40 AM EST Office Visit [facility] Otolaryngology 45 [facility] ASB2-2 [place] [address] Demetrio Armstrong MD 45 [place] [phone] [email or web address] 02/25/2025 9:30 AM EST Telemedicine [facility] Clinic 70 [place] [address] Guanakito Gallardo MD [address] [place] [address] [email or web address] 07/04/2025 10:00 AM EDT Telemedicine [facility] 70 [place] [address] Thiago Bean MD [address] [place] [address] [email or web address] 10/18/2025 7:05 AM EDT Hospital Encounter [facility] EKG 70 [place] [address] Guanakito Gallardo MD [address] [place] [address] [email or web address] Arrived documented as of this encounter Visit Diagnoses Not on filedocumented in this encounter Additional Health Concerns Infection Onset Date Last Indicated Resolved Time COVID-19 04/06/2023 04/06/2023 04/27/2023 1:21 AM EST CoV-Risk 07/17/2024 07/17/2024 07/28/2024 1:21 AM EDT documented as of this encounter Care Teams Cardroom Hand Relationship Specialty Start Date End Date Grecia Bonilla MD [address] [place] [address] [place] [address] PCP - General Internal Medicine 10/13/22 Indigo Du, CIVIL PREPAREDNESS TRAINING OFFICER [address] [place] [address] [email or web address] Social Media Project Manager Oncology 07/27/22 Hermelinda Barajas MD [address] [place] [address] 1240 [place] [address] Pedro@[facility] Medical Oncology 11/29/22 Cindi Shell CNP [address] [place] [address] Fina @[facility] Gerontology 11/29/22 Zuri Ha RN [address] [place] [address] Milton@[email or web address] Primary Infusion Nurse 01/10/24 05/14/24 Carlos Alberto King MD, [place] [address] [place] [address] Jaelyn@[facility] Hospice and Palliative Care 04/05/24 Patria Luevano, BRIELLE [address] [place] [address] STEFANO@[facility]. [facility] Primary Infusion Nurse 05/15/24 Jennie Ferreira, BRIELLE [address] [place] [address] ALISON@[facility] Associate Infusion Nurse 10/02/24 documented as of this encounter Additional Source Comments The information contained in this document represents components of the legal health record. It is not the complete legal health record.[facility]
--- OUTSIDE RECORDS SUMMARY | 2024-11-06 11:58 | XMS_ITS | Encounter Summary ---
Author Organization [facility] Address [address] [place] [address] Phone Care Team Providers Care Felt Finishing Supervisor Name Role Phone Indigo DuSW Unavailable Grecia Bonilla MD Primary Care Provider Hermelinda Barajas MD Unavailable [phone] Cindi Shell FILM SPOOLER Unavailable Zuri Ha RN Unavailable Sandra [email or web address]@[email or web address] Carlos Alberto King MD, [place] Unavailable Patria Luevano RN Unavailable TOBIAS HYATT@[facility] Jennie Ferreira RN Unavailable ALISON@ [facility] Encounter Details Date Type Department Care Team (Late st Contact Info) Description 01/10/2024 Procedure Pass [facility], Ct Scan - [facility] 30 [place] [address] Social History Tobacco Use Types Packs/Day Years [...] st Contact Info) Description 09/10/2024 Procedure Pass [address] [address] 09/10/2024 Procedure Pass [address] [address] 10/18/2024 Procedure Pass [facility] 70 [place] [address] 10/23/2024 Procedure Pass [facility] EKG 70 [place] [address] 10/23/2024 Procedure Pass [facility] EKG 70 [place] [address] 11/09/2024 10:30 AM EDT Appointment [address] [address] Hermelinda Barajas MD [address] [address] Pedro@[facility] 11/13/2024 6:30 AM EDT Blood Draw Laboratory Services, [facility] [place] 450 [facility], 2nd [place] [address] Hermelinda Barajas MD [address] [address] Pedro@[facility] 11/13/2024 7:30 AM EDT Office Visit [facility], [address], [address]th [place] [address] Hermelinda Barajas MD [address] [place] [address] Pedro@[facility] 11/13/2024 8:30 AM EDT Infusion Infusion Therapy Services [address], [address]th [place] [address] Hermelinda Barajas MD [address] [place] [address] Pedro@[facility] Patria Luevano RN [address] [place] [address] STEFANO@[facility] 11/16/2024 9:00 AM EDT Office [facility] Department of Orthopaedics [address] [place] [address] Andrew Lima MD [address] [place] [address] Department [place] [address] [email or web address] 01/18/2025 7:35 AM EST Hospital Encounter [facility] EKG 70 [place] [address] Guanakito Gallardo MD [address] [place] [address] [place] [address] [facility] 01/18/2025 8:30 AM EST Appointment [facility] Radiology 70 [place] [address] Odalis Jimenez PA-C 70 [facility] 5th [place] [address] [email or web address] 02/01/2025 8:40 AM EST Office Visit [facility] Otolaryngology 45 [facility] ASB2-2 [place] [address] Demetrio Armstrong MD 45 [place] [address] mak@[email or web address] 02/25/2025 9:30 AM EST Telemedicine [facility] Cardiovascular Clinic 70 [place] [address] Guanakito Gallardo MD [address] [place] [address] [email or web address] 07/04/2025 10:00 AM EDT Telemedicine [facility] Cardiovascular Clinic 70 [place] [address] Thiago Bean MD [address] [place] [address] [email or web address]@[email or web address] 10/18/2025 7:05 AM EDT Hospital Encounter [facility] EKG 70 [place] [address] Guanakito Gallardo MD [address] [place] [address] Arrived documented as of this encounter Visit Diagnoses Not on filedocumented in this encounter Additional Health Concerns Infection Onset Date Last Indicated Resolved Time CoV-Risk 07/17/2024 07/17/2024 07/28/2024 1:21 AM EDT documented as of this encounter Care Teams Felt Finishing Supervisor Relationship Specialty Start Date End Date Grecia Bonilla MD [address] [place] [address] [place] [address] PCP - General Internal Medicine 10/13/22 Indigo Du, [facility] 300 [place] [address] [email or web address] Farm Marketer Oncology 07/27/22 Hermelinda Barajas MD [address] [place] [address] Pedro@[facility] Medical Oncology 11/29/22 Cindi Shell CNP [address] [place] [address] Fina @[facility] Gerontology 11/29/22 Zuri Ha RN [address] [place] [address] Milton@[email or web address] Primary Infusion Nurse 01/10/24 05/14/24 Carlos Alberto King MD, CT [address] [place] [address] Jaelyn@[facility] Hospice and Palliative Care 04/05/24 Patria Luevano, BRIELLE [address] [place] [address] [email or web address]@[facility] Primary Infusion Nurse 05/15/24 Jennie Ferreira, BRIELLE [address] [place] [address] ALISON@[facility] Associate Infusion Nurse 10/02/24 documented as of this encounter Additional Source Comments The information contained in this document represents components of the legal health record. It is not the complete legal health record.[facility]
--- OUTSIDE RECORDS SUMMARY | 2024-11-06 11:58 | XMS_ITS | Encounter Summary ---
Author Organization [facility] Address [address] [place] [address] Phone Care Team Providers Care Count Team Clerk Name Role Phone Indigo DuSW Unavailable [phone] Grecia Bonilla MD Primary Care Provider Hermelinda Barajas MD Unavailable [phone] Cindi Shell [facility] Unavailable Carlos Alberto King MD, [place] Unavailable Patria Luevano RN Unavailable TOBIAS [email or web address] Jennie Ferreira RN Unavailable ALISON@ [facility] Encounter Details Date Type Department Care Team (Late st Contact Info) Description 05/15/2024 Procedure Pass [facility], Ct Scan - [address] [address] Social History Tobacco Use Types Packs/Day Years [...] st Contact Info) Description 09/10/2024 Procedure [address] [address] 09/10/2024 Procedure Pass [address] [address] 10/18/2024 Procedure Pass [facility] 70 [place] [address] 10/23/2024 Procedure Pass [facility] EKG 70 [place] [address] 10/23/2024 Procedure Pass [facility] EKG 70 [place] [address] 11/09/2024 10:30 AM EDT Appointment [address] [address] Hermelinda Barajas MD [facility] Wendy Shen 12[address] [place] [address] Pedro@[email or web address] 11/13/2024 6:30 AM EDT Blood Draw Laboratory Services, [facility] 450 [facility], 2nd Floor [place], [place] Hermelinda Barajas MD [address] [address] Pedro@[facility] 11/13/2024 7:30 AM EDT Office Visit [facility] for Thoracic Oncology, [facility] 450 [facility], 9th [place] [address] Hermelinda Barajas MD [address] [place] [address] Pedro@[facility] 11/13/2024 8:30 AM EDT Infusion Infusion Therapy Services [facility] 9, [facility] 450 [facility], 9th [place] [address] Hermelinda Barajas MD [address] [place] [address] Pedro@[facility] Patria Luevano, BRIELLE 450 [place] STEFANO@[facility] .[facility] 11/16/2024 9:00 AM EDT Office Visit [facility] Department of Orthopaedics 60 [place] [address] Andrew Lima MD [address] [place] [address] Department [place] [address] [email or web address] 01/18/2025 7:35 AM EST Hospital Encounter [facility] EKG 70 [place] [address] Guanakito Gallardo MD [address] [place] [address] [place] [address] Arrived 01/18/2025 8:30 AM EST Appointment [facility] 70 [place] [address] Odalis Jimenez PA-C 70 [facility] 5th [place] [address] [email or web address] 02/01/2025 8:40 AM EST Office Visit [facility] Otolaryngology 45 [facility] ASB2-2 [place] [address] Demetrio Armstrong MD 45 [place] [phone] [email or web address] 02/25/2025 9:30 AM EST Telemedicine [facility] Cardiovascular Clinic 70 [place] [address] Guanakito Gallardo MD [address] [place] [address] [place] [address] [email or web address] 07/04/2025 10:00 AM EDT Telemedicine [facility] Cardiovascular Clinic [address] [place] [address] Thiago Bean MD [address] [place] [address] [email or web address] 10/18/2025 7:05 AM EDT Hospital Encounter [facility] EKG 70 [place] [address] Guanakito Gallardo MD [address] [place] [address] [place] [address] [email or web address] Arrived documented as of this encounter Visit Diagnoses Not on filedocumented in this encounter Additional Health Concerns Infection Onset Date Last Indicated Resolved Time CoV-Risk 07/17/2024 07/17/2024 07/28/2024 1:21 AM EDT documented as of this encounter Care Teams Count Team Clerk Relationship Specialty Start Date End Date Grecia Bonilla MD [address] [place] [address] [place] [address] PCP - General Internal Medicine 10/13/22 Indigo Du, [facility] 300 [place] [address] [email or web address] Building Inspection Engineer Oncology 07/27/22 Hermelinda Barajas MD [address] [place] [address] 1240 [place] [address] Pedro@[email or web address] Medical Oncology 11/29/22 Cindi Shell CNP [address] [place] [address] Fina @[facility] Gerontology 11/29/22 Carlos Alberto King MD, [place] [address] [place] [address] Jaelyn@[email or web address] Hospice and Palliative Care 04/05/24 Patria Luevano, BRIELLE [address] [place] [address] [email or web address]@[facility] Primary Infusion Nurse 05/15/24 Jennie Ferreira RN [address] [place] [address] ALISON@[facility] Associate Infusion Nurse 10/02/24 documented as of this encounter Additional Source Comments The information contained in this document represents components of the legal health record. It is not the complete legal health record.[facility]
--- OUTSIDE RECORDS SUMMARY | 2024-11-06 11:58 | XMS_ITS | Encounter Summary ---
Author Organization [facility] [place] Address [address] [place] [address] Phone Care Team Providers Care Environmental Studies Faculty Member Name Role Phone Indigo DuSW Unavailable [phone] Grecia Bonilla MD Primary Care Provider Hermelinda Barajas MD Unavailable [phone] Cindi Shell [facility] Unavailable Carlos Alberto King MD, [place] Unavailable [phone] Patria Luevano RN Unavailable TOBIAS HYATT@[facility] Jennie Ferreira RN Unavailable ALISON@ [facility] Encounter Details Date Type Department Care Team (Late st Contact Info) Description 10/17/2024 Procedure Pass [facility] Rad[facility] 70 [place] [address] Social History Tobacco Use Types Packs/Day Years [...] Contact Info) Description 09/10/2024 Procedure Pass [address] [address] 09/10/2024 Procedure Pass [address] [address] 10/18/2024 Procedure Pass [facility] 70 [place] [address] 10/23/[address] [facility] EKG 70 [place] [address] 10/23/[address] [facility] EKG 70 [place] [address] 11/09/2024 10:30 AM EDT Appointment [address] [address] Hermelinda Barajas MD [facility] Wendy Shen 1240 [place] [address] Pedro@[facility] 11/13/2024 6:30 AM EDT Blood Draw Laboratory Services, [facility] 450 [facility], 2nd Floor [place], [place] Hermelinda Barajas MD [address] [place] [address] [place] [address] Pedro@[facility] 11/13/2024 7:30 AM EDT Office Visit [facility] for Thoracic On[facility], [facility] 450 [facility], 9th [place] [address] Hermelinda Barajas MD [address] [place] [address] Pedro@[facility] 11/13/2024 8:30 AM EDT Infusion Infusion Therapy Services [facility] 9, [facility] 450 [facility], 9th [place] [address] Hermelinda Barajas MD [address] [place] [address] Pedro@[facility] Patria Luevano RN 450 [place], [place] STEFANO@[facility] .[facility] 11/16/2024 9:00 AM EDT Office Visit [facility] Department of Orthopaedics 60 [place] [address] Andrew Lmia MD [address] [place] [address] Department [place] [address] [email or web address] 01/18/2025 7:35 AM EST Hospital Encounter [facility] EKG 70 [place] [address] Guanakito Gallardo MD [address] [place] [address] [place] [address] Arrived 01/18/2025 8:30 AM EST Appointment [facility] 70 [place] [address] dOalis Jimenez PA-C 70 [facility] 5th [place] [address] [email or web address] 02/01/2025 8:40 AM EST Office Visit [facility] Otolaryngology 45 [facility]2 [place] [address] Demetrio Armstrong MD 45 [place] [phone] [email or web address] 02/25/2025 9:[address] [facility] Cardiovascular Clinic 70 [place] [address] Guanakito Gallardo MD [address] [place] [address] [email or web address] 07/04/2025 10:[address] [facility] Cardiovascular Clinic [address] [place] [address] Thiago Bean MD [address] [place] [address] [email or web address] 10/18/2025 7:05 AM EDT Hospital Encounter [facility] EKG 70 [place] [address] Guanakito Gallardo MD [address] [place] [address] [email or web address] Arrived documented as of this encounter Visit Diagnoses Not on filedocumented in this encounter Care Teams Environmental Studies Faculty Member Relationship Specialty Start Date End Date Grecia Bonilla MD [address] [place] [address] [place] [address] PCP - General Internal Medicine 10/13/22 Indigo Du, DIAPER FOLDER 300 [place] [address] [email or web address] Jet Wiper Oncology 07/27/22 Hermelinda Barajas MD [address] [place] [address] 1240 [place] [address] Pedro@[facility] Medical Oncology 11/29/22 Cindi Shell CNP [address] [place] [address] Fina @[facility] Gerontology 11/29/22 Carlos Alberto King MD, [place] [address] [place] [address] Jaelyn@[facility] Hospice and Palliative Care 04/05/24 Patria Luevano, BRIELLE [address] [place] [address] STEFANO@[facility]. [facility] Primary Infusion Nurse 05/15/24 Jennie Ferreira, BRIELLE [address] [place] [address] ALISON@[email or web address] Associate Infusion Nurse 10/02/24 documented as of this encounter Additional Source Comments The information contained in this document represents components of the legal health record. It is not the complete legal health record.[facility] [place]
--- OUTSIDE RECORDS SUMMARY | 2024-11-06 11:59 | XMS_ITS | Encounter Summary ---
Author Organization [facility] Address [address] [place] [address] Phone Care Team Providers Care Credit Control Administrator Name Role Phone Indigo DuSW Unavailable [phone] Grecia Bonilla MD Primary Care Provider Hermelinda Barajas MD Unavailable [phone] Cindi Shell [facility] Unavailable Carlos Alberto King MD, [place] Unavailable Patria Luevano RN Unavailable TOBIAS HYATT@[email or web address] Jennie Ferreira RN Unavailable ALISON@ [facility] Encounter Details Date Type Department Care Team (Late st Contact Info) Description 07/17/2024 Procedure Pass [facility], Ct Scan - [address] [address] Social History Tobacco Use Types Packs/Day Years [...] st Contact Info) Description 09/10/2024 Procedure Pass [address] [address] 09/10/2024 Procedure Pass [address] [address] 10/18/2024 Procedure Pass [facility] 70 [place] [address] 10/23/2024 Procedure Pass [facility] EKG 70 [place] [address] 10/23/2024 Procedure Pass [facility] EKG 70 [place] [address] 11/09/2024 10:30 AM EDT Appointment [address] [address] Hermelinda Barajas MD [facility] Wendy Shen 1240 [place] [address] Pedro@[facility] 11/13/2024 6:30 AM EDT Blood Draw Laboratory Services, [facility] 450 [facility], 2nd Floor [place], [place] Hermelinda Barajas MD [address] [address] Pedro@[facility] 11/13/2024 7:30 AM EDT Office Visit [facility] for Thoracic On[facility], [facility] 450 [facility], 9th [place] [address] Hermelinda Barajas MD [address] [place] [address] Pedro@[facility] 11/13/2024 8:30 AM EDT Infusion Infusion Therapy Services [facility] 9, [facility] 450 [facility], 9th [place] [address] Hermelinda Barajas MD [address] [place] [address] Pedro@[facility] Patria Luevano, BRIELLE 450 [place], [place] STEFANO@[facility] .[facility] 11/16/2024 9:00 AM EDT Office Visit [facility] Department of Orthopaedics 60 [place] [address] Andrew Lima MD [address] [place] [address] Department [place] [address] [email or web address] 01/18/2025 7:35 AM EST Hospital Encounter [facility] EKG 70 [place] [address] Guanakito Gallardo MD [address] [place] [address] [place] [address] Arrived 01/18/2025 8:30 AM EST Appointment [facility] 70 [place] [address] Odalis Jimenez PA-C 70 [facility] 5th [place] [address] [email or web address] 02/01/2025 8:40 AM EST Office Visit [facility] Otolaryngology 45 [facility] ASB2-2 [place] [address] Demetrio Armstrong MD 45 [place] [phone] [email or web address] 02/25/2025 9:30 AM EST Telemedicine [facility] Cardiovascular Clinic 70 [place] [address] Guanakito Gallardo MD [address] [place] [address] [place] [address] [email or web address] 07/04/2025 10:00 AM EDT Telemedicine [facility] Cardiovascular Clinic [address] [place] [address] Thiago Bean MD [address] [place] [address] [email or web address] 10/18/2025 7:05 AM EDT Hospital Encounter [facility] EKG 70 [place] [address] Guanakito Gallardo MD [address] [place] [address] [place] [address] [email or web address] Arrived documented as of this encounter Visit Diagnoses Not on filedocumented in this encounter Additional Health Concerns Infection Onset Date Last Indicated Resolved Time CoV-Risk 07/17/2024 07/17/2024 07/28/2024 1:21 AM EDT documented as of this encounter Care Teams Credit Control Administrator Relationship Specialty Start Date End Date Grecia Bonilla MD [address] [place] [address] [place] [address] PCP - General Internal Medicine 10/13/22 Indigo Du, [facility] 300 [place] [address] [email or web address] Biology Professor Oncology 07/27/22 Hermelinda Barajas MD [address] [place] [address] 1240 [place] [address] Pedro@[email or web address] Medical Oncology 11/29/22 Cindi Shell CNP [address] [place] [address] Fina @[facility] Gerontology 11/29/22 Carlos Alberto King MD, [place] [address] [place] [address] Jaelyn@[facility] Hospice and Palliative Care 04/05/24 Patria Luevano, BRIELLE [address] [place] [address] [email or web address]@[email or web address] Primary Infusion Nurse 05/15/24 Jennie Ferreira RN [address] [place] [address] [email or web address]@[email or web address] Associate Infusion Nurse 10/02/24 documented as of this encounter Additional Source Comments The information contained in this document represents components of the legal health record. It is not the complete legal health record.[facility]
--- OUTSIDE RECORDS SUMMARY | 2024-11-06 11:59 | XMS_ITS | Encounter Summary ---
Author Organization [facility] Address [address] [place] [address] Phone Care Team Providers Care Inspector Mechanical Name Role Phone Indigo DuSW Unavailable Grecia Bonilla MD Primary Care Provider Hermelinda Barajas MD Unavailable [phone] Cindi Shell DEPARTURE CLERK Unavailable Zuri Ha RN Unavailable Sandra Ruiz@[facility] Carlos Alberto King MD, [place] Unavailable [phone] Patria Luevano RN Unavailable TOBIAS HYATT@[facility] Jennie Ferreira RN Unavailable ALISON@ [facility] Encounter Details Date Type Department Care Team (Late st Contact Info) Description 10/06/2023 Procedure Pass [facility] Endoscopy Department [address] [place] [address] Social History Tobacco Use Types Packs/Day Years Used Date Smoking Tobacco: Former Cigarettes 1 20 2 - 2021 Smokeless Tobacco: Never Education Answer [...] Contact Info) Description 09/10/2024 Procedure Pass [address] [address] 09/10/2024 Procedure Pass [address] [address] 10/18/2024 Procedure Pass [facility] [address] [place] [address] 10/23/2024 Procedure Pass [facility] EKG [address] [place] [address] 10/23/2024 Procedure Pass [facility] EKG [address] [place] [address] 11/09/2024 10:30 AM EDT Appointment [address] [address] Hermelinda Barajas MD [address] [address] Pedro@[facility] 11/13/2024 6:30 AM EDT Blood Draw Laboratory Services, [facility] 450 [facility], 2nd [place] [address] Hermelinda Barajas MD [address] [address] Pedro@[facility] 11/13/2024 7:30 AM EDT Office Visit [facility] Center for Thoracic Oncology, [address], [address]th [place] [address] Hermelinda Barajas MD [address] [place] [address] Pedro@[facility] 11/13/2024 8:30 AM EDT Infusion Infusion Therapy Services [facility] 9, [address], 9th [place] [address] Hermelinda Barajas MD [address] [place] [address] Pedro@[facility] Patria Luevano RN [address] [place] [address] STEFANO@[facility] .[facility] 11/16/2024 9:00 AM EDT Office Visit [facility] and [facility] Department of Orthopaedics [address] [place] [address] Andrew Lima MD [address] [place] [address] Department [place] [address] [email or web address] 01/18/2025 7:35 AM EST Hospital Encounter [facility] EKG [address] [place] [address] Guanakito Gallardo MD [address] [place] [address] [place] [address] [facility] 01/18/2025 8:30 AM EST Appointment [facility] [address] [place] [address] Odalis Jimenez PA-C 70 [facility] 5th [place] [address] [email or web address] 02/01/2025 8:40 AM EST Office Visit [facility] Otolaryngology 45 [facility] ASB2-2 [place] [address] Demetrio Armstrong MD 45 [place] [phone] [email or web address] 02/25/2025 9:30 AM EST Telemedicine [facility] [address] [place] [address] Guanakito Gallardo MD [address] [place] [address] [email or web address] 07/04/2025 10:00 AM EDT Telemedicine [facility] [address] [place] [address] Thiago Bean MD [address] [place] [address] [email or web address] 10/18/2025 7:05 AM EDT Hospital Encounter [facility] EKG [address] [place] [address] Guanakito Gallardo MD [address] [place] [address] Arrived documented as of this encounter Visit Diagnoses Not on filedocumented in this encounter Additional Health Concerns Infection Onset Date Last Indicated Resolved Time CoV-Risk 07/17/2024 07/17/2024 07/28/2024 1:21 AM EDT documented as of this encounter Care Teams Inspector Mechanical Relationship Specialty Start Date End Date Grecia Bonilla MD [address] [place] [address] [place] [address] PCP - General Internal Medicine 10/13/22 Indigo Du, [facility] [address] [place] [address] [email or web address] Blade Changer Oncology 07/27/22 Hermelinda Barajas MD [address] [place] [address] [place] [address] Pedro@[facility] Medical Oncology 11/29/22 Cindi Shell CNP [address] [place] [address] Fina @[facility] Gerontology 11/29/22 Zuri Ha RN [address] [place] [address] Milton@[facility] Primary Infusion Nurse 01/10/24 05/14/24 Carlos Alberto King MD, [place] [address] [place] [address] Jaelyn@[facility] Hospice and Palliative Care 04/05/24 Patria Luevano, RN [address] [place] [address] STEFANO@[facility] Primary Infusion Nurse 05/15/24 Jennie Ferreira RN [address] [place] [address] [email or web address] Associate Infusion Nurse 10/02/24 documented as of this encounter Additional Source Comments The information contained in this document represents components of the legal health record. It is not the complete legal health record.[facility]
--- OUTSIDE RECORDS SUMMARY | 2024-11-06 11:59 | XMS_ITS | Encounter Summary ---
Author Organization [facility] Address [address] [place] [address] Phone Care Team Providers Care Diesel Mechanic Name Role Phone Indigo DuSW Unavailable Grecia Bonilla MD Primary Care Provider Hermelinda Barajas MD Unavailable [phone] Cindi Shell ENGINEERING FACULTY Unavailable Zuri Ha RN Unavailable Sandra Ruiz@[email or web address].[facility] Carlos Alberto King MD, [place] Unavailable Patria Luevano RN Unavailable TOBIAS HYATT@[email or web address] Jennie Ferreira RN Unavailable ALISON@ [facility] Encounter Details Date Type Department Care Team (Late st Contact Info) Description 09/06/2023 Procedure Pass [facility], [facility] [place] 450 [facility], Floor L1 [place] [address] Social History Tobacco Use Types Packs/Day Years [...] Contact Info) Description 09/10/2024 Procedure Pass [address] [address] 09/10/2024 Procedure Pass [address] [address] 10/18/2024 Procedure Pass [facility] 70 [place] [address] 10/23/2024 Procedure Pass [facility] EKG 70 [place] [address] 10/23/2024 Procedure Pass [facility] EKG 70 [place] [address] 11/09/2024 10:30 AM EDT Appointment [address] [address] Hermelinda Barajas MD [address] [address] Pedro@[facility] 11/13/2024 6:30 AM EDT Blood Draw Laboratory Services, [facility] [address] [facility] [address] [facility], 2nd [place] [address] Hermelinda Barajas MD [address] [address] Pedro@[facility] 11/13/2024 7:30 AM EDT Office Visit [facility], [facility] [address] [facility], 9th [place] [address] Hermelinda Barajas MD [address] [place] [address] Pedro@[facility] 11/13/2024 8:30 AM EDT Infusion Infusion Therapy Services [facility] [address], 9th [place] [address] Hermelinda Barajas MD [address] [place] [address] Pedro@[email or web address] Patria Luevano RN [address] [place] [address] STEFANO@[facility] .[facility] 11/16/2024 9:00 AM EDT Office Visit [facility] Department of Orthopaedics [address] [place] [address] Andrew Lima MD [address] [place] [address] Department [place] [address] [email or web address] 01/18/2025 7:35 AM EST Hospital Encounter [facility] EKG 70 [place] [address] Guanakito Gallardo MD [address] [place] [address] [place] [address] [facility] 01/18/2025 8:30 AM EST Appointment [facility] Radiology 70 [place] [address] Odalis Jimenez PA-C 70 [facility] 5th [place] [address] [email or web address] 02/01/2025 8:40 AM EST Office Visit [facility] Otolaryngology 45 [facility] ASB2-2 [place] [address] Demetrio Armstrong MD 45 [place] [address] [email or web address] 02/25/2025 9:30 AM EST Telemedicine [facility] 70 [place] [address] Guanakito Gallardo MD [address] [place] [address] [email or web address] 07/04/2025 10:00 AM EDT Telemedicine [facility] 70 [place] [address] Thiago Bean MD [address] [place] [address] [email or web address] 10/18/2025 7:05 AM EDT Hospital Encounter [facility] EKG 70 [place] [address] Guanakito Gallardo MD [address] [place] [address] [email or web address] Arrived documented as of this encounter Visit Diagnoses Not on filedocumented in this encounter Additional Health Concerns Infection Onset Date Last Indicated Resolved Time CoV-Risk 07/17/2024 07/17/2024 07/28/2024 1:21 AM EDT documented as of this encounter Care Teams Diesel Mechanic Relationship Specialty Start Date End Date Grecia Bonilla MD [address] [place] [address] [place] [address] PCP - General Internal Medicine 10/13/22 Indigo Du, TECH ED TEACHER [address] [place] [address] [email or web address] Supervisor Carpenters Oncology 07/27/22 Hermelinda Barajas MD [address] [place] [phone] Pedro@[facility] Medical Oncology 11/29/22 Cindi Shell CNP [address] [place] [address] Fina @[facility] Gerontology 11/29/22 Zuri Ha RN [address] [place] [address] Milton@[facility] Primary Infusion Nurse 01/10/24 05/14/24 Carlos Alberto King MD, [place] [address] [place] [address] Jaelyn@[facility] Hospice and Palliative Care 04/05/24 Patria Luevano, BRIELLE [address] [place] [address] STEFANO@[facility] Primary Infusion Nurse 05/15/24 Jennie Ferreira, BRIELLE [address] [place] [address] ALISON@[facility] Associate Infusion Nurse 10/02/24 documented as of this encounter Additional Source Comments The information contained in this document represents components of the legal health record. It is not the complete legal health record.[facility]
--- OUTSIDE RECORDS SUMMARY | 2024-11-06 11:59 | XMS_ITS | Encounter Summary ---
Author Organization [facility] Address [address] [place] [address] Phone Care Team Providers Care Statistics Intern Name Role Phone Indigo DuSW Unavailable Grecia Bonilla MD Primary Care Provider Hermelinda Barajas MD Unavailable [phone] Cindi Shell TECHNICIAN SEMICONDUCTOR DEVELOPMENT Unavailable Zuri Ha RN Unavailable Sandra Ruiz@[email or web address] Carlos Alberto King MD, [place] Unavailable Patria Luevano RN Unavailable TOBIAS HYATT@[email or web address].[facility] Jennie Ferreira RN Unavailable ALISON@ [facility] Encounter Details Date Type Department Care Team (Late st Contact Info) Description 09/06/2023 Procedure Pass [facility] Echocardiography 70 [place] [address] Social History Tobacco Use Types Packs/Day Years [...] st Contact Info) Description 09/10/2024 Procedure Pass [address] [address] 09/10/2024 Procedure Pass [address] [address] 10/18/2024 Procedure Pass [facility] 70 [place] [address] 10/23/2024 Procedure Pass [facility] EKG [address] [place] [address] 10/23/2024 Procedure Pass [facility] EKG 70 [place] [address] 11/09/2024 10:30 AM EDT Appointment [address] [address] Hermelinda Barajas MD [address] [address] [email or web address] 11/13/2024 6:30 AM EDT Blood Draw Laboratory Services, [facility] 450 [facility], 2nd [place] [address] Hermelinda Barajas MD [address] [address] Pedro@[facility] 11/13/2024 7:30 AM EDT Office Visit [facility] Center for Thoracic Oncology, Hermelinda-[address], [address]th [place] [address] Hermelinda Barajas MD [address] [place] [address] Pedro@[facility] 11/13/2024 8:30 AM EDT Infusion Infusion Therapy Services [address], 9th [place] [address] Hermelinda Barajas MD [address] [place] [address] Pedro@[facility] Patria Luevano RN [address] [place] [address] STEFANO@[facility] .[facility] 11/16/2024 9:00 AM EDT Office Visit [facility] Department of Orthopaedics [address] [place] [address] Andrew Lima MD [address] [place] [address] Department [place] [address] [email or web address] 01/18/2025 7:35 AM EST Hospital Encounter [facility] EKG 70 [place] [address] Guanakito Gallardo MD [address] [place] [address] [place] [address] [facility] 01/18/2025 8:30 AM EST Appointment [facility] Radiology 70 [place] [address] Odalis Jimenez PA-C 70 [facility] 5th [place] [address] [email or web address] 02/01/2025 8:40 AM EST Office Visit [facility] Otolaryngology 45 [facility] ASB2-2 [place] [address] Demetrio Armstrong MD 45 [place] [address] [email or web address] 02/25/2025 9:30 AM EST Telemedicine [facility] Cardiovascular Clinic 70 [place] [address] Guanakito Gallardo MD [address] [place] [address] [email or web address] 07/04/2025 10:00 AM EDT Telemedicine [facility]ovascular Clinic 70 [place] [address] Thiago Bean MD [address] [place] [address] [email or web address] 10/18/2025 7:05 AM EDT Hospital Encounter [facility] EKG 70 [place] [address] Guanakito Gallardo MD [address] [place] [address] [email or web address] Arrived documented as of this encounter Visit Diagnoses Not on filedocumented in this encounter Additional Health Concerns Infection Onset Date Last Indicated Resolved Time CoV-Risk 07/17/2024 07/17/2024 07/28/2024 1:21 AM EDT documented as of this encounter Care Teams Statistics Intern Relationship Specialty Start Date End Date Grecia Bonilla MD [address] [place] [address] [place] [address] PCP - General Internal Medicine 10/13/22 Indigo Du, [facility] 300 [place] [address] [email or web address] Stereo Plotter Operator Oncology 07/27/22 Hermelinda Barajas MD [address] [place] [address] Pedro@[facility] Medical Oncology 11/29/22 Cindi Shell CNP [address] [place] [address] Fina @[facility] Gerontology 11/29/22 Zuri Ha RN [address] [place] [address] Milton@[email or web address] Primary Infusion Nurse 01/10/24 05/14/24 Carlos Alberto King MD, [place] [address] [place] [address] Jaelyn@[facility] Hospice and Palliative Care 04/05/24 Patria Luevano, BRIELLE [address] [place] [address] [email or web address]@[facility] Primary Infusion Nurse 05/15/24 Jennie Ferreira RN [address] [place] [address] ALISON@[email or web address] Associate Infusion Nurse 10/02/24 documented as of this encounter Additional Source Comments The information contained in this document represents components of the legal health record. It is not the complete legal health record.[facility]
--- OUTSIDE RECORDS SUMMARY | 2024-11-06 11:59 | XMS_ITS | Clinical Summary ---
Author Organization [facility] Address [address] [address] Care Team Providers Care Hand Cultivator Name Role Phone Unavailable Primary Care Provider [...] Exam 06/04/2022 Influenza Vaccine (#1) 2024 Insurance [facility] Medicaid [facility] Medicaid
--- OUTSIDE RECORDS SUMMARY | 2024-11-06 11:59 | XMS_ITS | Encounter Summary ---
Author Organization [facility] Address [address] [place] [address] Phone Care Team Providers Care Assembler Trim Name Role Phone Indigo DuSW Unavailable Grecia Bonilla MD Primary Care Provider Hermelinda Barajas MD Unavailable [phone] Cindi Shell [employer] Unavailable Zuri Ha RN Unavailable Sandra Ruiz@[facility].DUCOR.[facility] Carlos Alberto King MD, [place] Unavailable Patria Luevano RN Unavailable TOBIAS HYATT@[facility].DUCOR.[facility] Jennie Ferreira RN Unavailable ALISON@ [facility].DUCOR.[facility] Encounter Details Date Type Department Care Team (Late st Contact Info) Description 01/10/2024 Procedure Pass [facility], Ct Scan - [facility] 30 [place] [address] Social History Tobacco Use Types Packs/Day Years [...] st Contact Info) Description 09/10/2024 Procedure Pass [address] [address] 09/10/2024 Procedure Pass [address] [address] 10/18/2024 Procedure Pass [facility] 70 [place] [address] 10/23/2024 Procedure Pass [facility] EKG 70 [place] [address] 10/23/2024 Procedure Pass [facility] EKG 70 [place] [address] 11/09/2024 10:30 AM EDT Appointment [address] [address] Hermelinda Barajas MD [address] [address] Pedro@[facility] 11/13/2024 6:30 AM EDT Blood Draw Laboratory Services, [facility] [place] 450 [facility], 2nd [place] [address] Hermelinda Barajas MD [address] [address] Pedro@[facility] 11/13/2024 7:30 AM EDT Office [facility], [address], [address]th [place] [address] Hermelinda Barajas MD [address] [place] [address] Pedro@[facility] 11/13/2024 8:30 AM EDT Infusion Infusion Therapy Services [address], [address]th [place] [address] Hermelinda Barajas MD [address] [place] [address] Pedro@[facility] Patria Luevano RN [address] [place] [address] STEFANO@[facility] 11/16/2024 9:00 AM EDT Office Visit [facility] Department of Orthopaedics [address] [place] [address] Andrew Lima MD [address] [place] [address] Department [place] [address] [email or web address] 01/18/2025 7:35 AM EST Hospital Encounter [facility] EKG 70 [place] [address] Guanakito Gallardo MD [address] [place] [address] [place] [address] [facility] 01/18/2025 8:30 AM EST Appointment [facility] Radiology 70 [place] [address] Odalis Jimenez PA-C 70 [facility] 5th [place] [address] [email or web address] 02/01/2025 8:40 AM EST Office Visit [facility] Otolaryngology 45 [facility] ASB2-2 [place] [address] Demetrio Armstrong MD 45 [place] [address] [email or web address] 02/25/2025 9:30 AM EST Telemedicine [facility] Clinic 70 [place] [address] Guanakito Gallardo MD [address] [place] [address] [email or web address] 07/04/2025 10:00 AM EDT Telemedicine [facility] 70 [place] [address] Thiago Bean MD [address] [place] [address] [email or web address] 10/18/2025 7:05 AM EDT Hospital Encounter [facility] EKG 70 [place] [address] Guanakito Gallardo MD [address] [place] [address] Arrived documented as of this encounter Visit Diagnoses Not on filedocumented in this encounter Additional Health Concerns Infection Onset Date Last Indicated Resolved Time CoV-Risk 07/17/2024 07/17/2024 07/28/2024 1:21 AM EDT documented as of this encounter Care Teams Assembler Trim Relationship Specialty Start Date End Date Grecia Bonilla MD [address] [place] [address] [place] [address] PCP - General Internal Medicine 10/13/22 Indigo Du, [facility] 300 [place] [address] [email or web address] Manager Telecom Oncology 07/27/22 Hermelinda Barajas MD [address] [place] [address] Pedro@[facility] Medical Oncology 11/29/22 Cindi Shell CNP [address] [place] [address] Fina @[facility] Gerontology 11/29/22 Zuri Ha RN [address] [place] [address] Milton@[email or web address] Primary Infusion Nurse 01/10/24 05/14/24 Carlos Alberto [place], [place] [address] [place] [address] Jaelyn@[facility] Hospice and Palliative Care 04/05/24 Patria Luevano, BRIELLE [address] [place] [address] STEFANO@[facility] Primary Infusion Nurse 05/15/24 Jennie Ferreira, BRIELLE [address] [place] [address] [email or web address]@[email or web address] Associate Infusion Nurse 10/02/24 documented as of this encounter Additional Source Comments The information contained in this document represents components of the legal health record. It is not the complete legal health record.[facility]
--- OUTSIDE RECORDS SUMMARY | 2024-11-06 11:59 | XMS_ITS | Encounter Summary ---
Author Organization [facility] Address [address] [place] [address] Phone Care Team Providers Care Corporate Travel Counselor Name Role Phone Aubrey Taylor MD Primary Care Provider [phone] Indigo Du [facility] Unavailable Jn Cline DO Primary Care Provider [phone] Aubrey Taylor MD Primary Care Provider [phone] Marilynn Daly NP Primary Care Provider Unavailab Grecia Rosado MD Primary Care Provider Hermelinda Barajas MD Unavailable [phone] Cindi Shell [facility] Unavailable [phone] Zuri Ha RN Unavailable Sandra [email or web address] Carlos Alberto King MD, [place] Unavailable Patria Luevano RN Unavailable TOBIAS [email or web address] Jennie Ferreira RN Unavailable [email or web address]@ [email or web address] Encounter Details Date Type Department Care Team (Late st Contact Info) Description 06/25/2022 Procedure Pass [facility] [address] [place] [address] Social History Tobacco Use Types Packs/Day Years Used Date Smoking Tobacco: Former Cigarettes 1 20 2 2021 Smokeless Tobacco: Never Education Answer Date Recorded Are you interested in more education? Not on alexy e 06/24/2022 Are you concerned about learning? Not on file 06/24/2022 No 06/24/2022 No 06/24/2022 Sex and Gender Information Value Date Recorded Sex Assigned at Male 05/28/2022 1:30 PM EDT Legal Sex Male 9:41 PM EDT Gender Identity Male 05/28/2022 1:04 PM EDT Sexual Orientation Straight 05/28/2022 1: 30 PM EDT documented as of this encounter Plan of Treatment Upcoming Encounters Date Type Department Care Team (Late st Contact Info) Description 09/10/2024 Procedure Pass [address] [address] 09/10/2024 Procedure Pass [address] [address] 10/18/2024 Procedure Pass [facility] [address] [place] [address] 10/23/2024 Procedure Pass [facility] EKG [address] [place] [address] 10/23/2024 Procedure Pass [facility] EKG [address] [place] [address] 11/09/2024 10:30 AM EDT Appointment [address] [address] Hermelinda Barajas MD [address] [address] [email or web address] 11/13/2024 6:30 AM EDT Blood Draw Laboratory Services, [facility] 450 [facility], 2nd [place] [address] Hermelinda Barajas MD [address] [address] [email or web address]@[facility] 11/13/2024 7:30 AM EDT Office Visit [facility], [address], [address] [place] [address] Hermelinda Barajas MD [address] [place] [address] Pedro@[facility] 11/13/2024 8:30 AM EDT Infusion Infusion Therapy Services [facility] 9, [address], [address] [place] [address] Hermelinda Barajas MD [address] [place] [address] [email or web address] Patria Luevano, BRIELLE [address] [place] [address] [email or web address] .[facility] 11/16/2024 9:00 AM EDT Office Visit [facility] Department of Orthopaedics 60 [place] [address] Andrew Lima MD [address] [place] [address] Department [place] [address] [email or web address] 01/18/2025 7:35 AM EST Hospital Encounter [facility] EKG [address] [place] [address] Guanakito Gallardo MD [address] [place] [address] [place] [address] [email or web address] Arrived 01/18/2025 8:30 AM EST Appointment [facility] Radiology [address] [place] [address] Odalis Jimenez PA-C 70 [facility] 5th [place] [address] [email or web address] 02/01/2025 8:40 AM EST Office Visit [facility] Otolaryngology 45 [facility] ASB2-2 [place] [address] Demetrio Armstrong MD 45 [place] [phone] [email or web address] 02/25/2025 9:30 AM EST Telemedicine [facility] 70 [place] [address] Guanakito Gallardo MD [address] [place] [address] [email or web address] 07/04/2025 10:00 AM EDT Telemedicine [facility] Clinic [address] [place] [address] Thiago Bean MD [address] [place] [address] [email or web address] 10/18/2025 7:05 AM EDT Hospital Encounter [facility] EKG [address] [place] [address] Guanakito Gallardo MD [address] [place] [address] [email or web address] Arrived documented as of this encounter Visit Diagnoses Not on filedocumented in this encounter Additional Health Concerns Infection Onset Date Last Indicated Resolved Time COVID-19 04/06/2023 04/06/2023 04/27/2023 1:21 AM EST CoV-Risk 07/17/2024 07/17/2024 07/28/2024 1:21 AM EDT documented as of this encounter Care Teams Corporate Travel Counselor Relationship Specialty Start Date End Date Aubrey Taylor MD [address] [place] [address] [phone] PCP - General Internal Medicine 05/28/22 08/03/22 Jn Cline DO [address] [address] [email or web address] PCP - General Hospitalist 08/04/22 08/12/22 Aubrey Taylor MD [address] [place] [address] PCP - General Internal Medicine 08/13/22 09/14/22 Marilynn Daly NP PCP - General Nurse Practitioner 09/15/22 10/12/22 Grecia Bonilla MD [address] [place] [phone] PCP - General Internal Medicine 10/13/22 Indigo Du, [facility] [address] [place] [address] [email or web address] Avionics Installer Oncology 07/27/22 Hermelinda Barajas MD [address] [place] [address] 1240 [place] [address] [email or web address] Medical Oncology 11/29/22 Cindi Shell CNP [address] [place] [address] Fina@ [facility] Gerontology 11/29/22 Zuri Ha, BRIELLE 450 [place] [address] Dulceta@[facility] Primary Infusion Nurse 01/10/24 05/14/24 Carlos Alberto King MD, [place] [address] [place] [address] [email or web address] Hospice and Palliative Care 04/05/24 Patria Luevano, BRIELLE [address] [place] [address] [email or web address]@[facility] Primary Infusion Nurse 05/15/24 Jennie Ferreira RN [address] [place] [address] [email or web address] Associate Infusion Nurse 10/02/24 documented as of this encounter Additional Source Comments The information contained in this document represents components of the legal health record. It is not the complete legal health record.[facility]
--- OUTSIDE RECORDS SUMMARY | 2024-11-06 11:59 | XMS_ITS | Encounter Summary ---
Author Organization [facility] Address [address] [place] [address] Phone Care Team Providers Care Sand Sifter Name Role Phone Indigo DuSW Unavailable Grecia Bonilla MD Primary Care Provider Hermelinda Barajas MD Unavailable [phone] Cindi Shell [facility] Unavailable Carlos Alberto King MD, [place] Unavailable Patria Luevano RN Unavailable TOBIAS [email or web address] Jennie Ferreira RN Unavailable ALISON@ [facility].[place] Encounter Details Date Type Department Care Team (Late st Contact Info) Description 07/17/2024 Procedure Pass [facility], Ct Scan - [address] [address] Social History Tobacco Use Types Packs/Day Years [...] Contact Info) Description 09/10/2024 Procedure Pass [address] [address] 09/10/2024 Procedure Pass [address] [address] 10/18/2024 Procedure Pass [facility] 70 [place] [address] 10/23/2024 Procedure Pass [facility] EKG 70 [place] [address] 10/23/2024 Procedure Pass [facility] EKG 70 [place] [address] 11/09/2024 10:30 AM EDT Appointment [address] [address] Hermelinda Barajas MD [facility] Wendy Shen 1240 [place] [address] [email or web address] 11/13/2024 6:30 AM EDT Blood Draw Laboratory Services, [facility] 450 [facility], 2nd Floor [place], [place] Hermelinda Barajas MD [address] [address] [email or web address] 11/13/2024 7:30 AM EDT Office Visit [facility], [facility] 450 [facility], 9th [place] [address] Hermelinda Barajas MD [address] [place] [address] Pedro@[email or web address] 11/13/2024 8:30 AM EDT Infusion Infusion Therapy Services [facility] 9, [facility] 450 [facility], 9th [place] [address] Hermelinda Barajas MD [address] [place] [address] Pedro@[email or web address] Patria Luevano, BRIELLE [address] [place], [place] [email or web address]@[facility] .[facility] 11/16/2024 9:00 AM EDT Office Visit [facility] Department of Orthopaedics 60 [place] [address] Andrew Lima MD [address] [place] [address] Department [place] [address] [email or web address] 01/18/2025 7:35 AM EST Hospital Encounter [facility] EKG 70 [place] [address] Guanakito Gallardo MD [address] [place] [address] [place] [address] Arrived 01/18/2025 8:30 AM EST Appointment [facility] 70 [place] [address] Odalis Jimenez PA-C 70 [facility] 5th [place] [address] [email or web address] 02/01/2025 8:40 AM EST Office Visit [facility] Otolaryngology 45 [facility] ASB2-2 [place] [address] Demetrio Armstrong MD 45 [place] [phone] [email or web address] 02/25/2025 9:30 AM EST Telemedicine [facility] Cardiovascular Clinic 70 [place] [address] Guanakito Gallardo MD [address] [place] [address] [place] [address] [email or web address] 07/04/2025 10:00 AM EDT Telemedicine [facility] Cardiovascular Clinic [address] [place] [address] Thiago Bean MD [address] [place] [address] [email or web address] 10/18/2025 7:05 AM EDT Hospital Encounter [facility] EKG 70 [place] [address] Guanakito Gallardo MD [address] [place] [address] [place] [address] [email or web address] Arrived documented as of this encounter Visit Diagnoses Not on filedocumented in this encounter Additional Health Concerns Infection Onset Date Last Indicated Resolved Time CoV-Risk 07/17/2024 07/17/2024 07/28/2024 1:21 AM EDT documented as of this encounter Care Teams Sand Sifter Relationship Specialty Start Date End Date Grecia Bonilla MD [address] [place] [address] [place] [phone] PCP - General Internal Medicine 10/13/22 Indigo Du, [facility] 300 [place] [address] [email or web address] Press Tender Incendiary Grenade Oncology 07/27/22 Hermelinda Barajas MD [address] [place] [address] 1240 [place] [address] [email or web address] Medical Oncology 11/29/22 Cindi Shell CNP [address] [place] [address] Fina @[facility] Gerontology 11/29/22 Carlos Alberto King MD, [place] [address] [place] [address] Jaelyn@[facility] Hospice and Palliative Care 04/05/24 Patria Luevano, BRIELLE [address] [place] [address] [email or web address] Primary Infusion Nurse 05/15/24 Jennie Ferreira RN [address] [place] [address] ALISON@[email or web address] Associate Infusion Nurse 10/02/24 documented as of this encounter Additional Source Comments The information contained in this document represents components of the legal health record. It is not the complete legal health record.[facility]
--- OUTSIDE RECORDS SUMMARY | 2024-11-06 11:59 | XMS_ITS | Encounter Summary ---
Author Organization [facility] Address [address] [place] [address] Phone Care Team Providers Care Network Cabler Name Role Phone Indigo DuSW Unavailable [phone] Grecia Bonilla MD Primary Care Provider Hermelinda Barajas MD Unavailable [phone] Cindi Shell ASSISTANT PROFESSOR IN FAMILY STUDIES Unavailable Zuri Ha RN Unavailable Sandra Ruiz@[email or web address] Carlos Alberto King MD, [place] Unavailable Patria Luevano RN Unavailable TOBIAS [email or web address]@[facility].[email or web address] Jennie Ferreira RN Unavailable ALISON@ [facility].[email or web address].[facility] Encounter Details Date Type Department Care Team (Late st Contact Info) Description 04/24/2024 Procedure Pass [facility], [address] [address] Social History Tobacco Use Types Packs/Day Years [...] st Contact Info) Description 09/10/2024 Procedure Pass [address] [address] 09/10/2024 Procedure Pass [address] [address] 10/18/2024 Procedure Pass [facility] 70 [place] [address] 10/23/2024 Procedure Pass [facility] EKG 70 [place] [address] 10/23/2024 Procedure Pass [facility] EKG 70 [place] [address] 11/09/2024 10:30 AM EDT Appointment [address] [address] Hermelinda Barajas MD [address] [place] [address] Mariah Hermelinda 1240 [place] [address] [email or web address]@[email or web address] 11/13/2024 6:30 AM EDT Blood Draw Laboratory Services, [facility] 450 [facility], 2nd Floor [place], [place] Hermelinda Barajas MD [address] [place] [address] [place] [address] Pedro@[email or web address] 11/13/2024 7:30 AM EDT Office Visit [facility] for [facility], [facility] 450 [facility], 9th [place] [address] Hermelinda Barajas MD [address] [place] [address] [email or web address]@[email or web address] 11/13/2024 8:30 AM EDT Infusion Infusion Therapy Services [facility] 9, [facility] 450 [facility], 9th [place] [address] Hermelinda Barajas MD [address] [place] [address] [email or web address]@[email or web address] Patria Luevano RN [address] [place] [address] [email or web address]@[facility] .[facility] 11/16/2024 9:00 AM EDT Office Visit [facility] Department of Orthopaedics 60 [place] [address] Andrew Lima MD [address] [place] [address] Department [place] [address] [email or web address] 01/18/2025 7:35 AM EST Hospital Encounter [facility] EKG 70 [place] [address] Guanakito Gallardo MD [address] [place] [address] [place] [address] Arrived 01/18/2025 8:30 AM EST Appointment [facility] 70 [place] [address] Odalis Jimenez PA-C 70 [facility] 5th [place] [address] [email or web address] 02/01/2025 8:40 AM EST Office Visit [facility] Otolaryngology 45 [facility]2 [place] [address] Demetrio Armstrong MD 45 [place] [phone] [email or web address] 02/25/2025 9:30 AM EST Telemedicine [facility] 70 [place] [address] Guanakito Gallardo MD [address] [place] [address] 07/04/2025 10:00 AM EDT Telemedicine [facility] [address] [place] [address] Thiago Bean MD [address] [place] [address] [email or web address] 10/18/2025 7:05 AM EDT Hospital Encounter [facility] EKG 70 [place] [address] Guanakito Gallardo MD [address] [place] [address] [email or web address] Arrived documented as of this encounter Visit Diagnoses Not on filedocumented in this encounter Additional Health Concerns Infection Onset Date Last Indicated Resolved Time CoV-Risk 07/17/2024 07/17/2024 07/28/2024 1:21 AM EDT documented as of this encounter Care Teams Network Cabler Relationship Specialty Start Date End Date Grecia Bonilla MD [address] [place] [address] [place] [address] PCP - General Internal Medicine 10/13/22 Indigo Du, [facility] [address] [place] [address] [email or web address] Petroleum Refinery Operator Oncology 07/27/22 Hermelinda Barajas MD [address] [place] [address] Pedro@[email or web address] Medical Oncology 11/29/22 Cindi Shell CNP [address] [place] [address] Fina @[facility] Gerontology 11/29/22 Zuri Ha, RN [address] [place] [address] [email or web address]@[facility] Primary Infusion Nurse 01/10/24 05/14/24 Carlos Alberto King MD, [place] [address] [place] [address] Jaelyn@[facility] Hospice and Palliative Care 04/05/24 Patria Luevano, RN [address] [place] [address] [email or web address]@[facility] Primary Infusion Nurse 05/15/24 Jennie Ferreira RN [address] [place] [address] ALISON@[facility] Associate Infusion Nurse 10/02/24 documented as of this encounter Additional Source Comments The information contained in this document represents components of the legal health record. It is not the complete legal health record.[facility]
--- OUTSIDE RECORDS SUMMARY | 2024-11-06 11:59 | XMS_ITS | Encounter Summary ---
Author Organization [facility] Address [address] [place] [address] Phone Care Team Providers Care Regional Account Manager Name Role Phone Indigo DuSW Unavailable [phone] Grecia Bonilla MD Primary Care Provider Hermelinda Barajas MD Unavailable [phone] Cnidi Shell ORDER CHECKER Unavailable Zuri Ha RN Unavailable Sandra Ruiz@[facility] Carlos Alberto [place] MD, [place] Unavailable [phone] Patria Luevano RN Unavailable TOBIAS HYATT@[facility] Jennie Ferreira RN Unavailable ALISON@ [facility] Encounter Details Date Type Department Care Team (Late st Contact Info) Description 03/22/2023 Procedure Pass [facility] Echocardiography [address] [place] [address] Social History Tobacco Use Types Packs/Day Years [...] st Contact Info) Description 09/10/2024 Procedure Pass [address] [address] 09/10/2024 Procedure Pass [address] [address] 10/18/2024 Procedure Pass [facility] [address] [place] [address] 10/23/2024 Procedure Pass [facility] EKG [address] [place] [address] 10/23/2024 Procedure Pass [facility] EKG [address] [place] [address] 11/09/2024 10:30 AM EDT Appointment [address] [address] Hermelinda Barajas MD [address] [address] [email or web address] 11/13/2024 6:30 AM EDT Blood Draw Laboratory Services, [facility] 450 [facility], 2nd [place] [address] Hremelinda Barajas MD [address] [address] [email or web address] 11/13/2024 7:30 AM EDT Office Visit [facility] Center for Thoracic Oncology, Hermelinda-[address], [address] [place] [address] Hermelinda Barajas MD [address] [place] [address] Pedro@[facility] 11/13/2024 8:30 AM EDT Infusion Infusion Therapy Services [address], [address]th [place] [address] Hermelinda Barajas MD [address] [place] [address] Pedro@[facility] Patria Luevano RN [address] [place] [address] STEFANO@[facility] .[facility] 11/16/2024 9:00 AM EDT Office Visit [facility] Department of Orthopaedics [address] [place] [address] Andrew Lima MD [address] [place] [address] Department [place] [address] [email or web address] 01/18/2025 7:35 AM EST Hospital Encounter [facility] EKG [address] [place] [address] Guanakito Gallardo MD [address] [place] [address] [place] [address] [facility] 01/18/2025 8:30 AM EST Appointment [facility] Radiology [address] [place] [address] Odalis Jimenez PA-C 70 [facility] 5th [place] [address] [email or web address] 02/01/2025 8:40 AM EST Office Visit [facility] Otolaryngology 45 [facility] ASB2-2 [place] [address] Demetrio Armstrong MD 45 [place] [address] [email or web address] 02/25/2025 9:30 AM EST Telemedicine [facility] Cardiovascular Clinic [address] [place] [address] Guanakito Gallardo MD [address] [place] [address] [email or web address] 07/04/2025 10:00 AM EDT Telemedicine [facility] Cardiovascular Clinic [address] [place] [address] Thiago Bean MD [address] [place] [address] [email or web address]@[facility] 10/18/2025 7:05 AM EDT Hospital Encounter [facility] EKG 70 [place] [address] Guanakito Gallardo MD [address] [place] [address] [email or web address] Arrived documented as of this encounter Visit Diagnoses Not on filedocumented in this encounter Additional Health Concerns Infection Onset Date Last Indicated Resolved Time COVID-19 04/06/2023 04/06/2023 04/27/2023 1:21 AM EST CoV-Risk 07/17/2024 07/17/2024 07/28/2024 1:21 AM EDT documented as of this encounter Care Teams Regional Account Manager Relationship Specialty Start Date End Date Grecia Bonilla MD [address] [place] [address] [place] [address] PCP - General Internal Medicine 10/13/22 Indigo Du, [place] [address] [place] [address] [email or web address] Applier Oncology 07/27/22 Hermelinda Barajas MD [address] [place] [address] 1240 [place] [address] Pedro@[facility] Medical Oncology 11/29/22 Cindi Shell CNP [address] [place] [address] Fina @[facility] Gerontology 11/29/22 Zuri Ha RN [address] [place] [address] Milton@[facility] Primary Infusion Nurse 01/10/24 05/14/24 Carlos Alberto King MD, [place] [address] [place] [address] Jaelyn@[facility] Hospice and Palliative Care 04/05/24 Patria Luevano, BRIELLE [address] [place] [address] STEFANO@[facility]. [facility] Primary Infusion Nurse 05/15/24 Jennie Ferreira, BRIELLE [address] [place] [address] [email or web address] Associate Infusion Nurse 10/02/24 documented as of this encounter Additional Source Comments The information contained in this document represents components of the legal health record. It is not the complete legal health record.[facility]
--- OUTSIDE RECORDS SUMMARY | 2024-11-06 11:59 | XMS_ITS | Encounter Summary ---
Author Organization [facility] Address [address] [place] [address] Phone Care Team Providers Care Generator Switchboard Operator Name Role Phone Indigo DuSW Unavailable [phone] Grecia Bonilla MD Primary Care Provider Hermelinda Barajas MD Unavailable [phone] Cindi Shell DYE MACHINE OPERATOR Unavailable Zuri Ha RN Unavailable Sandra Ruiz@[email or web address].[place] Carlos Alberto [place] MD, [place] Unavailable [phone] Patria Luevano RN Unavailable TOBIAS HYATT@[email or web address].[place] Jennie Ferreira RN Unavailable ALISON@ [facility] Encounter Details Date Type Department Care Team (Late st Contact Info) Description 09/06/2023 Procedure Pass [facility], [facility] [place] 450 [facility], Floor L1 [place] [address] Social History Tobacco Use Types Packs/Day Years [...] Contact Info) Description 09/10/2024 Procedure Pass [address] [address] 09/10/2024 Procedure Pass [address] [address] 10/18/2024 Procedure Pass [facility] 70 [place] [address] 10/23/2024 Procedure Pass [facility] EKG 70 [place] [address] 10/23/2024 Procedure Pass [facility] EKG 70 [place] [address] 11/09/2024 10:30 AM EDT Appointment [address] [address] Hermelinda Barajas MD [address] [address] Pedro@[email or web address] 11/13/2024 6:30 AM EDT Blood Draw Laboratory Services, [facility] [place] 450 [facility], 2nd [place] [address] Hermelinda Barajas MD [address] [address] Pedro@[email or web address] 11/13/2024 7:30 AM EDT Office Visit [facility] Center for Thoracic Oncology, [facility] 450 [facility], 9th [place] [address] Hermelinda Barajas MD [address] [place] [address] Pedro@[facility] 11/13/2024 8:30 AM EDT Infusion Infusion Therapy Services [place] [address], [address]th [place] [address] Hermelinda Barajas MD [address] [place] [address] Pedro@[facility] Patria Luevano RN [address] [place] [address] [email or web address]@[facility] .[facility] 11/16/2024 9:00 AM EDT Office Visit [facility] Department of Orthopaedics [address] [place] [address] Andrew Lima MD [address] [place] [address] Department [place] [address] [email or web address] 01/18/2025 7:35 AM EST Hospital Encounter [facility] EKG 70 [place] [address] Guanakito Gallardo MD [address] [place] [address] [place] [address] [facility] 01/18/2025 8:30 AM EST Appointment [facility] Radiology 70 [place] [address] Odalis Jimenez PA-C 70 [facility] 5th [place] [address] [email or web address] 02/01/2025 8:40 AM EST Office Visit [facility] Otolaryngology 45 [facility] ASB2-2 [place] [address] Demetrio Armstrong MD 45 [place] [address] [email or web address] 02/25/2025 9:30 AM EST Telemedicine [facility] Cardiovascular Clinic 70 [place] [address] Guanakito Gallardo MD [address] [place] [address] [email or web address] 07/04/2025 10:00 AM EDT Telemedicine [facility] Cardiovascular Clinic 70 [place] [address] Thiago Bean MD [address] [place] [address] [email or web address] 10/18/2025 7:05 AM EDT Hospital Encounter [facility] EKG 70 [place] [address] Guanakito Gallardo MD [address] [place] [address] [email or web address] Arrived documented as of this encounter Visit Diagnoses Not on filedocumented in this encounter Additional Health Concerns Infection Onset Date Last Indicated Resolved Time CoV-Risk 07/17/2024 07/17/2024 07/28/2024 1:21 AM EDT documented as of this encounter Care Teams Generator Switchboard Operator Relationship Specialty Start Date End Date Grecia Bonilla MD [address] [place] [address] [place] [address] PCP - General Internal Medicine 10/13/22 Indigo Du, CAN STACKER [address] [place] [address] [email or web address] Cuff Folder Oncology 07/27/22 Hermelinda Barajas MD [address] [place] [address] Pedro@[facility] Medical Oncology 11/29/22 Cindi Shell CNP [address] [place] [address] Fina @[facility] Gerontology 11/29/22 Zuri Ha RN [address] [place] [address] Milton@[facility] Primary Infusion Nurse 01/10/24 05/14/24 Carlos Alberto King MD, [place] [address] [place] [address] Jaelyn@[facility] Hospice and Palliative Care 04/05/24 Patria Luevano, BRIELLE [address] [place] [address] [email or web address]@[facility] Primary Infusion Nurse 05/15/24 Jennie Ferreira, BRIELLE [address] [place] [address] ALISON@[facility] Associate Infusion Nurse 10/02/24 documented as of this encounter Additional Source Comments The information contained in this document represents components of the legal health record. It is not the complete legal health record.[facility]
--- OUTSIDE RECORDS SUMMARY | 2024-11-06 12:00 | XMS_ITS | Encounter Summary ---
Author Organization [facility] Address [address] [place] [address] Phone Care Team Providers Care Life Science Research Assistant Name Role Phone Indigo DuSW Unavailable Grecia Bonilla MD Primary Care Provider Hermelinda Barajas MD Unavailable [phone] Cindi Shell COMPUTER TECHNOLOGY INSTRUCTOR Unavailable Zuri Ha RN Unavailable Sandra Ruiz@[email or web address] Carlos Alberto King MD, [place] Unavailable [phone] Patria Luevano RN Unavailable TOBIAS HYATT@[email or web address] Jennie Ferreira RN Unavailable ALISON@ [facility] Encounter Details Date Type Department Care Team (Late st Contact Info) Description 06/21/2023 Procedure Pass [facility] Imaging Department, [facility] [place] 450 [facility], Floor L1 [place] [address] Social History Tobacco Use Types Packs/Day Years [...] st Contact Info) Description 09/10/2024 Procedure Pass [address] [address] 09/10/2024 Procedure Pass [address] [address] 10/18/2024 Procedure Pass [facility] 70 [place] [address] 10/23/2024 Procedure Pass [facility] EKG 70 [place] [address] 10/23/2024 Procedure Pass [facility] EKG 70 [place] [address] 11/09/2024 10:30 AM EDT Appointment [address] [address] Hermelinda Barajas MD [address] [address] [email or web address] 11/13/2024 6:30 AM EDT Blood Draw Laboratory Services, [facility] [place] 450 [facility], 2nd [place] [address] Hermelinda Barajas MD [address] [address] Pedro@[email or web address] 11/13/2024 7:30 AM EDT Office Visit [facility] Center for Thoracic Oncology, [facility] 450 [facility], 9th [place] [address] Hermelinda Barajas MD [address] [place] [address] Pedro@[email or web address] 11/13/2024 8:30 AM EDT Infusion Infusion Therapy Services [place] [address], 9th [place] [address] Hermelinda Barajas MD [address] [place] [address] [email or web address] Patria Luevano RN [address] [place] [address] [email or web address]@[facility] .[facility] 11/16/2024 9:00 AM EDT Office Visit [facility] Department of Orthopaedics [address] [place] [address] Andrew Lima MD [address] [place] [address] Department [place] [address] [email or web address] 01/18/2025 7:35 AM EST Hospital Encounter [facility] EKG 70 [place] [address] Guanakito Gallardo MD [address] [place] [address] [place] [address] [facility] 01/18/2025 8:30 AM EST Appointment [facility] Radiology 70 [place] [address] Odalis Jimenez PA-C 70 [facility] 5th [place] [address] [email or web address] 02/01/2025 8:40 AM EST Office Visit [facility] Otolaryngology 45 [facility] ASB2-2 [place] [address] Demetrio Armstrong MD 45 [place] [address] [email or web address] 02/25/2025 9:30 AM EST Telemedicine [facility] Cardiovascular Clinic 70 [place] [address] Guanakito Gallardo MD [address] [place] [address] [email or web address] 07/04/2025 10:00 AM EDT Telemedicine [facility] Cardiovascular Clinic 70 [place] [address] Thiago Bean MD [address] [place] [address] [email or web address] 10/18/2025 7:05 AM EDT Hospital Encounter [facility] EKG 70 [place] [address] Guanakito Gallardo MD [address] [place] [address] [email or web address] Arrived documented as of this encounter Visit Diagnoses Not on filedocumented in this encounter Additional Health Concerns Infection Onset Date Last Indicated Resolved Time CoV-Risk 07/17/2024 07/17/2024 07/28/2024 1:21 AM EDT documented as of this encounter Care Teams Life Science Research Assistant Relationship Specialty Start Date End Date Grecia Bonilla MD [address] [place] [address] [place] [address] PCP - General Internal Medicine 10/13/22 Indigo Du, EYELET CUTTER [address] [place] [address] [email or web address] Duplicator Punch Set Up Operator Oncology 07/27/22 Hermelinda Barajas MD [address] [place] [address] [email or web address]@[facility] Medical Oncology 11/29/22 Cindi Shell CNP [address] [place] [address] Fina @[facility] Gerontology 11/29/22 Zuri Ha RN [address] [place] [address] Milton@[email or web address] Primary Infusion Nurse 01/10/24 05/14/24 Carlos Alberto King MD, [place] [address] [place] [address] Jaelyn@[facility] Hospice and Palliative Care 04/05/24 Patria Luevano, BRIELLE [address] [place] [address] [email or web address]@[email or web address] Primary Infusion Nurse 05/15/24 Jennie Ferreira, BRIELLE [address] [place] [address] [email or web address]@[email or web address] Associate Infusion Nurse 10/02/24 documented as of this encounter Additional Source Comments The information contained in this document represents components of the legal health record. It is not the complete legal health record.[facility]
--- OUTSIDE RECORDS SUMMARY | 2024-11-06 12:01 | XMS_ITS | Patient Health Record ---
Author Organization [facility] Address [address] [place] [address] Care Team Providers Care Clinical Pharmacy Coordinator Name Role Phone NO, PCP Primary Care Provider [facility], [place] Unavailable [phone] Reason For Referral No Information Plan Of Treatment No Information Insurance Providers Payer Name Payer Address Payer Phone Subscriber Number Group Number Insured Name Patient Relationship to Insured Coverage Start Date Coverage End Date [place] Medicare Part A [employer] [facility] [address] [place] [address] [id number] Jesse Patrick Self - patient is the insured 5 [place] Medicaid Standard [address] [place] [address] [id number] Jesse Patrick Self - patient is the insured 5
--- OUTSIDE RECORDS SUMMARY | 2024-11-06 12:01 | XMS_ITS | Encounter Summary ---
Author Organization [facility] Address [address] [place] [address] Phone Care Team Providers Care Mercantile Reporter Name Role Phone Indigo Du [facility] Unavailable [phone] Grecia Bonilla MD Primary Care Provider Hermelinda Barajas MD Unavailable [phone] Cindi Shell [facility] Unavailable Carlos Alberto King MD, [place] Unavailable Patria Luevano RN Unavailable TOBIAS [email or web address] Jennie Ferreira RN Unavailable ALISON@ [facility].[place] Encounter Details Date Type Department Care Team (Late st Contact Info) Description 10/18/2024 Procedure Pass [facility] 70 [place] [address] Social History Tobacco Use Types Packs/Day Years [...] st Contact Info) Description 09/10/2024 Procedure Pass [address] [address] 09/10/2024 Procedure Pass [address] [address] 10/18/2024 Procedure Pass [facility] 70 [place] [address] 10/23/2024 Procedure Pass [facility] EKG 70 [place] [address] 10/23/2024 Procedure Pass [facility] EKG 70 [place] [address] 11/09/2024 10:30 AM EDT Appointment [address] [address] Hermelinda Barajas MD 450 Wendy [address] 1240 [place] [address] [email or web address] 11/13/2024 6:30 AM EDT Blood Draw Laboratory Services, [facility] 450 [facility], 2nd Floor [place], [place] Hermelinda Barajas MD [address] [place] [address] [place] [address] Pedro@[facility] 11/13/2024 7:30 AM EDT Office Visit [facility] for [facility], [facility] 450 [facility], 9th [place] [address] Hermelinda Braajas MD [address] [place] [address] Pedro@[facility] 11/13/2024 8:30 AM EDT Infusion Infusion Therapy Services [place] [address], [facility] 450 [facility], 9th [place] [address] Hermelinda Barajas MD [address] [place] [address] Pedro@[facility] Patria Luevano RN 450 [place], [place] STEFANO@[facility] .[facility] 11/16/2024 9:00 AM EDT Office Visit [facility] Department of Orthopaedics 60 [place] [address] Andrew Lima MD [address] [place] [address] Department [place] [address] [email or web address] 01/18/2025 7:35 AM EST Hospital Encounter [facility] EKG 70 [place] [address] Guanakito Gallardo MD [address] [place] [address] [place] [address] Arrived 01/18/2025 8:30 AM EST Appointment [facility] 70 [place] [address] Odalis Jimenez PA-C 70 [facility] 5th [place] [address] [email or web address] 02/01/2025 8:40 AM EST Office Visit [facility] Otolaryngology 45 [facility] [place] [address] Demetrio Armstrong MD 45 [place] [phone] [email or web address] 02/25/2025 9:[address] [facility] Cardiovascular Clinic 70 [place] [address] Guanakito Gallardo MD [address] [place] [address] [place] [address] [email or web address] 07/04/2025 10:[address] [facility] Cardiovascular Clinic 70 [place] [address] Thiago Bean MD [address] [place] [address] [email or web address]@[email or web address] 10/18/2025 7:05 AM EDT Hospital Encounter [facility] EKG 70 [place] [address] Guanakito Gallardo MD [address] [place] [address] [place] [address] [email or web address] Arrived documented as of this encounter Visit Diagnoses Not on filedocumented in this encounter Care Teams Mercantile Reporter Relationship Specialty Start Date End Date Grecia Bonilla MD [address] [place] [address] [place] [address] PCP - General Internal Medicine 10/13/22 Indigo Du, [facility] [address] [place] [address] [email or web address] Cobbler Upper Oncology 07/27/22 Hermelinda Barajas MD [address] [place] [address] 1240 [place] [address] [email or web address] Medical Oncology 11/29/22 Cindi Shell CNP [address] [place] [address] Fina @[facility] Gerontology 11/29/22 Carlos Alberto King MD, [place] [address] [place] [address] Jaelyn@[facility] Hospice and Palliative Care 04/05/24 Patria Luevano, BRIELLE [address] [place] [address] STEFANO@[facility]. [facility] Primary Infusion Nurse 05/15/24 Jennie Ferreira, BRIELLE [address] [place] [address] ALISON@[email or web address] Associate Infusion Nurse 10/02/24 documented as of this encounter Additional Source Comments The information contained in this document represents components of the legal health record. It is not the complete legal health record.[facility]
--- OUTSIDE RECORDS SUMMARY | 2024-11-06 12:01 | XMS_ITS | Encounter Summary ---
Author Organization [facility] Address [address] [place] [address] Phone Care Team Providers Care Furrier Designer Name Role Phone Indigo DuSW Unavailable [phone] Grecia Bonilla MD Primary Care Provider Hermelinda Barajas MD Unavailable [phone] MAGISTRATE Unavailable [phone] Zuri Ha RN Unavailable Sandra Ruiz@[facility] Carlos Alberto King MD, [place] Unavailable Patria Luevano RN Unavailable TOBIAS HYATT@[facility] Jennie Ferreira RN Unavailable ALISON@ [facility] Encounter Details Date Type Department Care Team (Late st Contact Info) Description 01/14/2023 Procedure Pass [facility] Endoscopy Department [address] [place] [address] Social History Tobacco Use Types Packs/Day Years [...] st Contact Info) Description 09/10/2024 Procedure Pass [address] [address] 09/10/2024 Procedure Pass [address] [address] 10/18/2024 Procedure Pass [facility] Women[facility] Radiology 70 [place] [address] 10/23/2024 Procedure Pass [facility] EKG 70 [place] [address] 10/23/2024 Procedure Pass [facility] EKG 70 [place] [address] 11/09/2024 10:30 AM EDT Appointment [address] [address] Hermelinda Barajas MD [address] [address] [email or web address] 11/13/2024 6:30 AM EDT Blood Draw Laboratory Services, [facility] 450 [facility], 2nd [place] [address] Hermelinda Barajas MD [address] [address] Pedro@[facility] 11/13/2024 7:30 AM EDT Office Visit [facility] Center for Thoracic Oncology, [address], [address]th [place] [address] Hermelinda Barajas MD [address] [place] [address] Pedro@[facility] 11/13/2024 8:30 AM EDT Infusion Infusion Therapy Services [place] [address], [address], [address]th [place] [address] Hermelinda Barajas MD [address] [place] [address] Pedro@[facility] Patria Luevano RN [address] [place] [address] STEFANO@[facility] .[facility] 11/16/2024 9:00 AM EDT Office Visit [facility] Department of Orthopaedics [address] [place] [address] Andrew Lima MD [address] [place] [address] Department [place] [address] [email or web address] 01/18/2025 7:35 AM EST Hospital Encounter [facility] EKG 70 [place] [address] Guanakito Gallardo MD [address] [place] [address] [place] [address] [facility] 01/18/2025 8:30 AM EST Appointment [facility] Radiology 70 [place] [address] Odalis Jimenez PA-C 70 [facility] 5th [place] [address] [email or web address] 02/01/2025 8:40 AM EST Office Visit [facility] Otolaryngology 45 [facility] ASB2-2 [place] [address] Demetrio Armstrong MD 45 [place] [address] [email or web address] 02/25/2025 9:30 AM EST Telemedicine [facility] 70 [place] [address] Guanakito Gallardo MD [address] [place] [address] [email or web address] 07/04/2025 10:00 AM EDT Telemedicine [facility] 70 [place] [address] Thiago Bean MD [address] [place] [address] [email or web address]@[facility] 10/18/2025 7:05 AM EDT Hospital Encounter [facility] EKG 70 [place] [address] Guanakito Gallardo MD [address] [place] [address] Arrived documented as of this encounter Visit Diagnoses Not on filedocumented in this encounter Additional Health Concerns Infection Onset Date Last Indicated Resolved Time COVID-19 04/06/2023 04/06/2023 04/27/2023 1:21 AM EST CoV-Risk 07/17/2024 07/17/2024 07/28/2024 1:21 AM EDT documented as of this encounter Care Teams Furrier Designer Relationship Specialty Start Date End Date Grecia Bonilla MD [address] [place] [address] [place] [address] PCP - General Internal Medicine 10/13/22 Indigo Du LICSW 300 [place] [address] [email or web address] Optical Manufacturing Technician Oncology 07/27/22 Hermelinda Barajas MD [address] [place] [address] [place] [address] Pedro@[facility] Medical Oncology 11/29/22 Cindi Shell CNP [address] [place] [address] Fina @[facility] Gerontology 11/29/22 Zuri Ha RN [address] [place] [address] Milton@[facility] Primary Infusion Nurse 01/10/24 05/14/24 Carlos Alberto King MD, [place] [address] [place] [address] Jaelyn@[facility] 04/05/24 Patria Luevano, BRIELLE [address] [place] [address] STEFANO@[facility]. [facility] Primary Infusion Nurse 05/15/24 Jennie Ferreira, BRIELLE [address] [place] [address] ALISON@[email or web address] Associate Infusion Nurse 10/02/24 documented as of this encounter Additional Source Comments The information contained in this document represents components of the legal health record. It is not the complete legal health record.[facility]
--- OUTSIDE RECORDS SUMMARY | 2024-11-06 12:01 | XMS_ITS | Encounter Summary ---
Author Organization [facility] Address [address] [place] [address] Phone Care Team Providers Care Weigher Operator Name Role Phone Indigo DuSW Unavailable Grecia Bonilla MD Primary Care Provider Hermelinda Barajas MD Unavailable [phone] Cindi Shell CRYSTAL SLICER Unavailable Zuri Ha RN Unavailable Sandra Ruiz@[email or web address].[place] Carlos Alberto King MD, [place] Unavailable [phone] Patria Luevano RN Unavailable TOBIAS HYATT@[email or web address].[place].[facility] Jennie Ferreira RN Unavailable ALISON@ [facility].[place].[facility] Encounter Details Date Type Department Care Team (Late st Contact Info) Description 03/06/2024 Procedure Pass [facility], Ct Scan - [facility] 30 [place] [address] Social History Tobacco Use Types Packs/Day Years [...] Contact Info) Description 09/10/2024 Procedure Pass [address] [address] 09/10/2024 Procedure Pass [address] [address] 10/18/2024 Procedure Pass [facility] 70 [place] [address] 10/23/2024 Procedure Pass [facility] EKG 70 [place] [address] 10/23/2024 Procedure Pass [facility] EKG 70 [place] [address] 11/09/2024 10:30 AM EDT Appointment [address] [address] Hermelinda Barajas MD 450 [place] Mariah Hermelinda 1240 [place] [address] Pedro@[facility] 11/13/2024 6:30 AM EDT Blood Draw Laboratory Services, [facility] 450 [facility], 2nd Floor [place], [place] Hermelinda Barajas MD 450 [facility] [address] [place] [address] Pedro@[facility] 11/13/2024 7:30 AM EDT Office Visit [facility], [facility] 450 [facility], 9th [place] [address] Hermelinda Barajas MD [address] [place] [address] Pedro@[facility] 11/13/2024 8:30 AM EDT Infusion Infusion Therapy Services [facility] 9, [facility] 450 [facility], 9th [place] [address] Hermelinda Barajas MD [address] [place] [address] Pedro@[facility] Patria Luevano, BRIELLE [address] [place] [address] STEFANO@[facility] .[facility] 11/16/2024 9:00 AM EDT Office Visit [facility] Department of Orthopaedics 60 [place] [address] Andrew Lima MD [address] [place] [address] Department [place] [address] [email or web address] 01/18/2025 7:35 AM EST Hospital Encounter [facility] EKG 70 [place] [address] Guanakito Gallardo MD [address] [place] [address] [place] [address] Arrived 01/18/2025 8:30 AM EST Appointment [facility] 70 [place] [address] Odalis Jimenez PA-C 70 [facility] 5th [place] [address] [email or web address] 02/01/2025 8:40 AM EST Office Visit [facility] Otolaryngology 45 [facility] ASB2-2 [place] [address] Demetrio Armstrong MD 45 [place] [phone] [email or web address] 02/25/2025 9:30 AM EST Telemedicine [facility] Cardiovascular Clinic 70 [place] [address] Guanakito Gallardo MD [address] [place] [address] 07/04/2025 10:00 AM EDT Telemedicine [facility]ovascular Clinic 70 [place] [address] Thiago Bean MD [address] [place] [address] [email or web address]@[facility] 10/18/2025 7:05 AM EDT Hospital Encounter [facility] EKG 70 [place] [address] Guanakito Gallardo MD [address] [place] [address] [email or web address] Arrived documented as of this encounter Visit Diagnoses Not on filedocumented in this encounter Additional Health Concerns Infection Onset Date Last Indicated Resolved Time CoV-Risk 07/17/2024 07/17/2024 07/28/2024 1:21 AM EDT documented as of this encounter Care Teams Weigher Operator Relationship Specialty Start Date End Date Grecia Bonilla MD [address] [place] [address] [place] [address] PCP - General Internal Medicine 10/13/22 Indigo Du, [facility] 300 [place] [address] [email or web address] Domestic Helper Oncology 07/27/22 Hermelinda Barajas MD [address] [place] [address] Pedro@[email or web address] Medical Oncology 11/29/22 Cindi Shell CNP [address] [place] [address] Fina @[facility] Gerontology 11/29/22 Zuri Ha, RN [address] [place] [address] Milton@[facility] Primary Infusion Nurse 01/10/24 05/14/24 Carlos Alberto King MD, [place] [address] [place] [address] Jaelyn@[facility] Hospice and Palliative Care 04/05/24 Patria Luevano, RN [address] [place] [address] STEFANO@[facility] Primary Infusion Nurse 05/15/24 Jennie Ferreira RN [address] [place] [address] ALISON@[facility] Associate Infusion Nurse 10/02/24 documented as of this encounter Additional Source Comments The information contained in this document represents components of the legal health record. It is not the complete legal health record.[facility]
--- OUTSIDE RECORDS SUMMARY | 2024-11-06 12:01 | XMS_ITS | Encounter Summary ---
Author Organization [facility] Address [address] [place] [address] Phone Care Team Providers Care Staff Development Coordinator Name Role Phone Indigo DuSW Unavailable Grecia Bonilla MD Primary Care Provider Hermelinda Barajas MD Unavailable [phone] Cindi Shell ADOLESCENT MEDICINE SPECIALIST Unavailable [phone] Zuri Ha RN Unavailable Sandra Ruiz@[facility].[email or web address] Carlos Alberto King MD, [place] Unavailable [phone] Patria Luevano RN Unavailable TOBIAS HYATT@[facility].[email or web address] Jennie Ferreira RN Unavailable ALISON@ [facility].[place] Encounter Details Date Type Department Care Team (Late st Contact Info) Description 10/22/2022 Procedure Pass [facility], Ct Scan - [facility] 30 [place] [address] Social History Tobacco Use Types Packs/Day Years [...] st Contact Info) Description 09/10/2024 Procedure Pass [address] [address] 09/10/2024 Procedure Pass [address] [address] 10/18/2024 Procedure Pass [facility] 70 [place] [address] 10/23/2024 Procedure Pass [facility] EKG 70 [place] [address] 10/23/2024 Procedure Pass [facility] EKG 70 [place] [address] 11/09/2024 10:30 AM EDT Appointment [address] [address] Hermelinda Barajas MD [address] [address] Pedro@[facility] 11/13/2024 6:30 AM EDT Blood Draw Laboratory Services, [facility] Cancer [place] 450 [facility], 2nd [place] [address] Hermelinda Barajas MD [address] [address] Pedro@[facility] 11/13/2024 7:30 AM EDT Office Visit [facility], [address], [address]th [place] [address] Hermelinda Barajas MD [address] [place] [address] Pedro@[facility] 11/13/2024 8:30 AM EDT Infusion Infusion Therapy Services [address], [address]th [place] [address] Hermelinda Barajas MD [address] [place] [address] Pedro@[facility] Patria Luevano RN [address] [place] [address] STEFANO@[facility] 11/16/2024 9:00 AM EDT Office Visit [facility] and [facility] Department of Orthopaedics [address] [place] [address] Andrew Lima MD [address] [place] [address] Department [place] [address] [email or web address] 01/18/2025 7:35 AM EST Hospital Encounter [facility] EKG 70 [place] [address] Guanakito Gallardo MD [address] [place] [address] [place] [address] [facility] 01/18/2025 8:30 AM EST Appointment [facility] Radiology 70 [place] [address] Odalis Jimenez PA-C 70 [facility] 5th [place] [address] [email or web address] 02/01/2025 8:40 AM EST Office Visit [facility] Otolaryngology 45 [facility] ASB2-2 [place] [address] Demetrio Armstrong MD 45 [place] [phone] [email or web address] 02/25/2025 9:[address] [facility] Cardiovascular Clinic 70 [place] [address] Guanakito Gallardo MD [address] [place] [address] [email or web address] 07/04/2025 10:[address] [facility] Cardiovascular Clinic 70 [place] [address] Thiago Bean MD [address] [place] [address] [email or web address] 10/18/2025 7:05 AM EDT Hospital Encounter [facility] EKG 70 [place] [address] Guanakito Gallardo MD [address] [place] [address] Arrived documented as of this encounter Visit Diagnoses Not on filedocumented in this encounter Additional Health Concerns Infection Onset Date Last Indicated Resolved Time COVID-19 04/06/2023 04/06/2023 04/27/2023 1:21 AM EST CoV-Risk 07/17/2024 07/17/2024 07/28/2024 1:21 AM EDT documented as of this encounter Care Teams Staff Development Coordinator Relationship Specialty Start Date End Date Grecia Bonilla MD [address] [place] [address] [place] [address] PCP - General Internal Medicine 10/13/22 Indigo Du, [facility] 300 [place] [address] [email or web address] Timekeeper Supervisor Oncology 07/27/22 Hermelinda Barajas MD [address] [place] [address] 1240 [place] [address] Pedro@[facility] Medical Oncology 11/29/22 Cindi Shell CNP [address] [place] [address] Fina @[facility] Gerontology 11/29/22 Zuri Ha RN [address] [place] [address] Milton@[email or web address] Primary Infusion Nurse 01/10/24 05/14/24 Carlos Alberto King MD, [place] [address] [place] [address] Jaelyn@[facility] Hospice and Palliative Care 04/05/24 Patria Luevano, RN [address] [place] [address] [email or web address]@[facility] Primary Infusion Nurse 05/15/24 Jennie Ferreira, BRIELLE [address] [place] [address] ALISON@[facility] Associate Infusion Nurse 10/02/24 documented as of this encounter Additional Source Comments The information contained in this document represents components of the legal health record. It is not the complete legal health record.[facility]
--- OUTSIDE RECORDS SUMMARY | 2024-11-06 12:01 | XMS_ITS | Encounter Summary ---
Author Organization [facility] Address [address] [place] [address] Phone Care Team Providers Care Playground Equipment Erector Name Role Phone Indigo DuSW Unavailable Grecia Bonilla MD Primary Care Provider Hermelinda Barajas MD Unavailable [phone] Cindi Shell FEATHER CUTTING MACHINE FEEDER Unavailable Zuri Ha RN Unavailable [email or web address]@[facility] Carlos Alberto King MD, [place] Unavailable [phone] Patria Luevano RN Unavailable TOBIAS HYATT@[facility] Jennie Ferreira RN Unavailable ALISON@ [facility].[place] Encounter Details Date Type Department Care Team (Late st Contact Info) Description 06/21/2023 Procedure Pass [facility], [facility] [place] 450 [facility], Floor L1 [place] [address] Social History Tobacco Use Types Packs/Day Years [...] st Contact Info) Description 09/10/2024 Procedure Pass [address] [address] 09/10/2024 Procedure Pass [address] [address] 10/18/2024 Procedure Pass [facility] 70 [place] [address] 10/23/[address] [facility] EKG 70 [place] [address] 10/23/[address] [facility] EKG 70 [place] [address] 11/09/2024 10:30 AM EDT Appointment [address] [address] Hermelinda Barajas MD [address] [address] Pedro@[facility] 11/13/2024 6:30 AM EDT Blood Draw Laboratory Services, [facility] [place] 450 [facility], 2nd [place] [address] Hermelinda Barajas MD [address] [address] Pedro@[facility] 11/13/2024 7:30 AM EDT Office Visit [facility] Center for Thoracic Oncology, [facility] 450 [facility], 9th [place] [address] Hermelinda Barajas MD [address] [place] [address] Pedro@[facility] 11/13/2024 8:30 AM EDT Infusion Infusion Therapy Services [place] [address], [address]th [place] [address] Hermelinda Barajas MD [address] [place] [address] Pedro@[facility] Patria Luevano RN [address] [place] [address] STEFANO@[facility] .[facility] 11/16/2024 9:00 AM EDT Office Visit [facility] Department of Orthopaedics [address] [place] [address] Andrew Lima MD [address] [place] [address] Department [place] [address] [email or web address] 01/18/2025 7:35 AM EST Hospital Encounter [facility] EKG 70 [place] [address] Guanakito Gallardo MD [address] [place] [address] [place] [address] [facility] 01/18/2025 8:30 AM EST Appointment [facility] Radiology 70 [place] [address] Odalis Jimenez PA-C 70 [facility] 5th [place] [address] [email or web address] 02/01/2025 8:40 AM EST Office [address] [facility] Otolaryngology 45 [facility] ASB2-2 [place] [address] Demetrio Armstrong MD 45 [place] [address] mak@[email or web address] 02/25/2025 9:30 AM EST Telemedicine [facility] Cardiovascular Clinic 70 [place] [address] Guanakito Gallardo MD [address] [place] [address] [email or web address] 07/04/2025 10:00 AM EDT Telemedicine [facility] Cardiovascular Clinic 70 [place] [address] Thiago Bean MD [address] [place] [address] [email or web address]@[email or web address] 10/18/2025 7:05 AM EDT Hospital Encounter [facility] EKG 70 [place] [address] Guanakito Gallardo MD [address] [place] [address] [email or web address] Arrived documented as of this encounter Visit Diagnoses Not on filedocumented in this encounter Additional Health Concerns Infection Onset Date Last Indicated Resolved Time CoV-Risk 07/17/2024 07/17/2024 07/28/2024 1:21 AM EDT documented as of this encounter Care Teams Playground Equipment Erector Relationship Specialty Start Date End Date Grecia Bonilla MD [address] [place] [address] [place] [address] PCP - General Internal Medicine 10/13/22 Indigo Du, PEST TECHNICIAN [address] [place] [address] [email or web address] English As A Second Language Teacher Oncology 07/27/22 Hermelinda Barajas MD [address] [place] [address] Pedro@[facility] Medical Oncology 11/29/22 Cindi Shell CNP [address] [place] [address] Fina @[facility] Gerontology 11/29/22 Zuri Ha RN [address] [place] [address] Milton@[facility] Primary Infusion Nurse 01/10/24 05/14/24 Carlos Alberto King MD, [place] [address] [place] [address] Jaelyn@[facility] Hospice and Palliative Care 04/05/24 Patria Luevano, BRIELLE [address] [place] [address] STEFANO@[facility] Primary Infusion Nurse 05/15/24 Jennie Ferreira, BRIELLE [address] [place] [address] ALISON@[facility] Associate Infusion Nurse 10/02/24 documented as of this encounter Additional Source Comments The information contained in this document represents components of the legal health record. It is not the complete legal health record.[facility]
--- OUTSIDE RECORDS SUMMARY | 2024-11-06 12:01 | XMS_ITS | Encounter Summary ---
Author Organization [facility] Address [address] [place] [address] Phone Care Team Providers Care Transitional Nurse Name Role Phone Indigo DuSW Unavailable Grecia Bonilla MD Primary Care Provider Hermelinda Barajas MD Unavailable [phone] Cindi Shell CURRICULUM COACH Unavailable Zuri Ha RN Unavailable Sandra [email or web address] Carlos Alberto King MD, [place] Unavailable Patria Luevano RN Unavailable TOBIAS [email or web address] Jennie Ferreira RN Unavailable ALISON@ [email or web address] Encounter Details Date Type Department Care Team (Late st Contact Info) Description 03/06/2024 Procedure Pass [facility], Ct Scan - [facility] 30 [place] [address] Social History Tobacco Use Types Packs/Day Years [...] st Contact Info) Description 09/10/2024 Procedure Pass [address] [address] 09/10/2024 Procedure Pass [address] [address] 10/18/2024 Procedure Pass [facility] 70 [place] [address] 10/23/2024 Procedure Pass [facility] EKG 70 [place] [address] 10/23/2024 Procedure Pass [facility] EKG 70 [place] [address] 11/09/2024 10:30 AM EDT Appointment [address] [address] Hermelinda Barajas MD [address] Hermelinda 1240 [place] [address] Pedro@[facility] 11/13/2024 6:30 AM EDT Blood Draw Laboratory Services, [facility] 450 [facility], 2nd Floor [place], [place] Hermelinda Barajas MD 450 [facility] [address] [place] [address] Pedro@[facility] 11/13/2024 7:30 AM EDT Office Visit [facility], [facility] 450 [facility], 9th [place] [address] Hermelinda Barajas MD [address] [place] [address] Pedro@[facility] 11/13/2024 8:30 AM EDT Infusion Infusion Therapy Services Y[facility]key 9, [facility] 450 [facility], 9th [place] [address] Hermelinda Barajas MD [address] [place] [address] Pedro@[facility] Patria Luevano, BRIELLE [address] [place] [address] [email or web address]@[email or web address] .[facility] 11/16/2024 9:00 AM EDT Office Visit [facility] Department of Orthopaedics 60 [place] [address] Andrew Lima MD [address] [place] [address] Department [place] [address] [email or web address] 01/18/2025 7:35 AM EST Hospital Encounter [facility] EKG 70 [place] [address] Guanakito Gallardo MD [address] [place] [address] [place] [address] Arrived 01/18/2025 8:30 AM EST Appointment [facility] 70 [place] [address] Odalis Jimenez PA-C 70 [facility] 5th [place] [address] [email or web address] 02/01/2025 8:40 AM EST Office Visit [facility] Otolaryngology 45 [facility] ASB2-2 [place] [address] Demetrio Armstrong MD 45 [place] [phone] [email or web address] 02/25/2025 9:30 AM EST Telemedicine [facility] 70 [place] [address] Guanakito Gallardo MD [address] [place] [address] 07/04/2025 10:00 AM EDT Telemedicine [facility] 70 [place] [address] Thiago Bean MD [address] [place] [address] [email or web address] 10/18/2025 7:05 AM EDT Hospital Encounter [facility] EKG 70 [place] [address] Guanakito Gallardo MD [address] [place] [address] [email or web address] Arrived documented as of this encounter Visit Diagnoses Not on filedocumented in this encounter Additional Health Concerns Infection Onset Date Last Indicated Resolved Time CoV-Risk 07/17/2024 07/17/2024 07/28/2024 1:21 AM EDT documented as of this encounter Care Teams Transitional Nurse Relationship Specialty Start Date End Date Grecia Bonilla MD [address] [place] [address] [place] [address] PCP - General Internal Medicine 10/13/22 Indigo Du, [facility] 300 [place] [address] [email or web address] Slot Supervisor Oncology 07/27/22 Hermelinda Barajas MD [address] [place] [address] Pedro@[facility] Medical Oncology 11/29/22 Cindi Shell CNP [address] [place] [address] Fina @[facility] Gerontology 11/29/22 Zuri Ha, RN [address] [place] [address] Milton@[email or web address] Primary Infusion Nurse 01/10/24 05/14/24 Carlos Alberto King MD, [place] [address] [place] [address] Jaelyn@[facility] Hospice and Palliative Care 04/05/24 Patria Luevano, RN [address] [place] [address] [email or web address]@[facility] Primary Infusion Nurse 05/15/24 Jennie Ferreira RN [address] [place] [address] [email or web address] Associate Infusion Nurse 10/02/24 documented as of this encounter Additional Source Comments The information contained in this document represents components of the legal health record. It is not the complete legal health record.[facility]
--- OUTSIDE RECORDS SUMMARY | 2024-11-06 12:02 | XMS_ITS | Encounter Summary ---
Author Organization [facility] Address [address] [place] [address] Phone Care Team Providers Care Delivery Director Name Role Phone Indigo DuSW Unavailable Grecia Bonilla MD Primary Care Provider Hermelinda Barajas MD Unavailable [phone] Cindi Shell ELEMENTARY SCHOOL TEACHER'S AIDE Unavailable Zuri Ha RN Unavailable Sandra [email or web address] Carlos Alberto King MD, [place] Unavailable Patria Luevano RN Unavailable TOBIAS [email or web address] Jennie Ferreira RN Unavailable ALISON@ [email or web address] Encounter Details Date Type Department Care Team (Late st Contact Info) Description 05/17/2023 Procedure Pass [facility] EKG 70 [place] [address] Social History Tobacco Use Types Packs/Day Years [...] st Contact Info) Description 09/10/2024 Procedure Pass [address] [address] 09/10/2024 Procedure Pass [address] [address] 10/18/[address] [facility] 70 [place] [address] 10/23/2024 Procedure Pass [facility] EKG 70 [place] [address] 10/23/2024 Procedure Pass [facility] EKG 70 [place] [address] 11/09/2024 10:30 AM EDT Appointment [address] [address] Hermelinda Barajas MD [address] [address] [email or web address] 11/13/2024 6:30 AM EDT Blood Draw Laboratory Services, [facility] 450 [facility], 2nd [place] [address] Hermelinda Barajas MD [address] [address] Pedro@[facility] 11/13/2024 7:30 AM EDT Office Visit [facility] Center for Thoracic Oncology, [address], 9th [place] [address] Hermelinda Barajas MD [address] [place] [address] Pedro@[facility] 11/13/2024 8:30 AM EDT Infusion Infusion Therapy Services Yawkey 9, [address], 9th [place] [address] Hermelinda Barajas MD [address] [place] [address] Pedro@[facility] Patria Luevano RN [address] [place] [address] [email or web address]@[email or web address] .[facility] 11/16/2024 9:00 AM EDT Office [facility] Department of Orthopaedics [address] [place] [address] Andrew Lima MD [address] [place] [address] Department [place] [address] [email or web address] 01/18/2025 7:35 AM EST Hospital Encounter [facility] EKG 70 [place] [address] Guanakito Gallardo MD [address] [place] [address] Card[place] [address] [facility] 01/18/2025 8:30 AM EST Appointment [facility] Radiology 70 [place] [address] Odalis Jimenez PA-C 70 [facility] 5th [place] [address] [email or web address] 02/01/2025 8:40 AM EST Office Visit [facility] Otolaryngology 45 [facility] ASB2-2 [place] [address] Demetrio Armstrong MD 45 [place] [address] [email or web address] 02/25/2025 9:30 AM EST Telemedicine [facility] 70 [place] [address] Guanakito Gallardo MD [address] [place] [address] [email or web address] 07/04/2025 10:00 AM EDT Telemedicine [facility] 70 [place] [address] Thiago Bean MD [address] [place] [address] [email or web address] 10/18/2025 7:05 AM EDT Hospital Encounter [facility] EKG 70 [place] [address] Guanakito Gallardo MD [address] [place] [address] Arrived documented as of this encounter Visit Diagnoses Not on filedocumented in this encounter Additional Health Concerns Infection Onset Date Last Indicated Resolved Time CoV-Risk 07/17/2024 07/17/2024 07/28/2024 1:21 AM EDT documented as of this encounter Care Teams Delivery Director Relationship Specialty Start Date End Date Grecia Bonilla MD [address] [place] [address] [place] [address] PCP - General Internal Medicine 10/13/22 Indigo Du, [facility] 300 [place] [address] [email or web address] Group Home Supervisor Oncology 07/27/22 Hermelinda Barajas MD [address] [place] [address] [place] [address] Pedro@[facility] Medical Oncology 11/29/22 Cindi Shell CNP [address] [place] [address] Fina @[facility] Gerontology 11/29/22 Zuri Ha RN [address] [place] [address] Milton@[facility] Primary Infusion Nurse 01/10/24 05/14/24 Carlos Alberto King [place], [place] [address] [place] [address] Jaelyn@[facility] Hospice and Palliative Care 04/05/24 Patria Luevano, RN [address] [place] [address] [email or web address]@[facility] Primary Infusion Nurse 05/15/24 Jennie Ferreira RN [address] [place] [address] ALISON@[email or web address] Associate Infusion Nurse 10/02/24 documented as of this encounter Additional Source Comments The information contained in this document represents components of the legal health record. It is not the complete legal health record.[facility]
--- OUTSIDE RECORDS SUMMARY | 2024-11-06 12:02 | XMS_ITS | Encounter Summary ---
Author Organization [facility] Address [address] [place] [address] Phone Care Team Providers Care Casing Wringer Operator Name Role Phone Aubrey Taylor MD Primary Care Provider [phone] Indigo Du [facility] Unavailable Jn Cline DO Primary Care Provider Aubrey Taylor MD Primary Care Provider [phone] Marilynn Daly NP Primary Care Provider Unavailab Grecia Rosado MD Primary Care Provider Hermelinda Barajas MD Unavailable [phone] Cindi Shell DAY PORTER Unavailable [phone] Zuri Ha RN Unavailable Sandra Ruiz@[email or web address].[email or web address] Carlso Alberto King MD, [place] Unavailable [phone] Patria Luevano RN Unavailable TOBIAS [email or web address] Jennie Ferreira RN Unavailable ALISON@ [email or web address] Encounter Details Date Type Department Care Team (Late st Contact Info) Description 06/25/2022 Procedure Pass [facility] 70 [place] [address] Social History Tobacco Use Types Packs/Day Years [...] st Contact Info) Description 09/10/2024 Procedure Pass [address] [address] 09/10/2024 Procedure Pass [address] [address] 10/18/2024 Procedure Pass [facility] 70 [place] [address] 10/23/2024 Procedure Pass [facility] EKG 70 [place] [address] 10/23/2024 Procedure Pass [facility] EKG 70 [place] [address] 11/09/2024 10:30 AM EDT Appointment [address] [address] Hermelinda Barajas MD [address] [address] [email or web address] 11/13/2024 6:30 AM EDT Blood Draw Laboratory Services, [facility] 450 [facility], 2nd [place] [address] Hermelinda Barajas MD [address] [address] Pedro@[facility] 11/13/2024 7:30 AM EDT Office Visit [facility] Center for Thoracic Oncology, [address], [address] [place] [address] Hermelinda Barajas MD [address] [place] [address] Pedro@[facility] 11/13/2024 8:30 AM EDT Infusion Infusion Therapy Services [facility] [address], [address], [address]th [place] [address] Hermelinda Barajas MD [address] [place] [address] Pedro@[facility] Patria Luevano, BRIELLE [address] [place] [address] [email or web address]@[facility] .[facility] 11/16/2024 9:00 AM EDT Office Visit [facility] Department of Orthopaedics 60 [place] [address] Andrew Lima MD [address] [place] [address] Department [place] [address] [email or web address] 01/18/2025 7:35 AM EST Hospital Encounter [facility] EKG 70 [place] [address] Guanakito Gallardo MD [address] [place] [address] [place] [address] [email or web address] Arrived 01/18/2025 8:30 AM EST Appointment [facility] Radiology 70 [place] [address] Odalis Jimenez PA-C 70 [facility] 5th [place] [address] [email or web address] 02/01/2025 8:40 AM EST Office Visit [facility] Otolaryngology 45 [facility] ASB2-2 [place] [address] Demetrio Armstrong MD 45 [place] [phone] [email or web address] 02/25/2025 9:30 AM EST Telemedicine [facility] 70 [place] [address] Guanakito Gallardo MD [address] [place] [address] [email or web address] 07/04/2025 10:00 AM EDT Telemedicine [facility] Clinic [address] [place] [address] Thiago Bean MD [address] [place] [address] [email or web address] 10/18/2025 7:05 AM EDT Hospital Encounter [facility] EKG 70 [place] [address] Guanakito Gallardo MD [address] [place] [address] [email or web address] Arrived documented as of this encounter Visit Diagnoses Not on filedocumented in this encounter Additional Health Concerns Infection Onset Date Last Indicated Resolved Time COVID-19 04/06/2023 04/06/2023 04/27/2023 1:21 AM EST CoV-Risk 07/17/2024 07/17/2024 07/28/2024 1:21 AM EDT documented as of this encounter Care Teams Casing Wringer Operator Relationship Specialty Start Date End Date Aubrey Taylor MD [address] [place] [address] [phone] PCP - General Internal Medicine 05/28/22 08/03/22 Jn Cline DO [address] [address] [email or web address] [email or web address] PCP - General Hospitalist 08/04/22 08/12/22 Aubrey Taylor MD [address] [place] [address] PCP - General Internal Medicine 08/13/22 09/14/22 Marilynn Daly NP PCP - General Nurse Practitioner 09/15/22 10/12/22 Grecia Bonilla MD [address] [place] [phone] PCP - General Internal Medicine 10/13/22 Indigo Du, [facility] 300 [place] [address] [email or web address] Softball Umpire Oncology 07/27/22 Hermelinda Barajas MD [address] [place] [address] [place] [address] Pedro@[facility] Medical Oncology 11/29/22 Cindi Shell CNP [address] [place] [address] Fina@ [facility] Gerontology 11/29/22 Zuri Ha, BRIELLE 450 [place] [address] Dulceta@[facility] Primary Infusion Nurse 01/10/24 05/14/24 Carlos Alberto King MD, [place] [address] [place] [address] Jaelyn@[facility] Hospice and Palliative Care 04/05/24 Patria Luevano, BRIELLE [address] [place] [address] [email or web address]@[facility] Primary Infusion Nurse 05/15/24 Jennie Ferreira RN [address] [place] [address] ALISON@[facility] Associate Infusion Nurse 10/02/24 documented as of this encounter Additional Source Comments The information contained in this document represents components of the legal health record. It is not the complete legal health record.[facility]
--- OUTSIDE RECORDS SUMMARY | 2024-11-06 12:02 | XMS_ITS | Encounter Summary ---
Author Organization [facility] Address [address] [facility] [address] [place] [address] Phone Care Team Providers Care Rn Staffing Name Role Phone Aubrey Taylor MD Primary Care Provider [phone] Indigo Du [facility] Unavailable Jn Cline DO Primary Care Provider [phone] Aubrey Taylor MD Primary Care Provider [phone] Marilynn Daly NP Primary Care Provider Unavailab Grecia Rosado MD Primary Care Provider Hermelinda Barajas MD Unavailable [phone] Cindi Shell ESCALATOR ATTENDANT Unavailable Zuri Ha RN Unavailable Sandra Ruiz@[email or web address] Carlos Alberto King MD, [place] Unavailable Patria Luevano RN Unavailable TOBIAS HYATT@[email or web address] Jennie Frereira RN Unavailable ALISON@ [facility] Encounter Details Date Type Department Care Team (Late st Contact Info) Description 06/25/2022 Procedure Pass [facility] Echocardiography 70 [place] [address] Social History Tobacco Use Types Packs/Day Years Used Date Smoking Tobacco: Former Cigarettes 03 19 2 - 2021 Smokeless Tobacco: Never Education [...] Contact Info) Description 09/10/2024 Procedure Pass [address] [address] 09/10/2024 Procedure Pass [address] [address] 10/18/2024 Procedure Pass [facility] 70 [place] [address] 10/23/2024 Procedure Pass [facility] EKG 70 [place] [address] 10/23/2024 Procedure Pass [facility] EKG 70 [place] [address] 11/09/2024 10:30 AM EDT Appointment [address] [address] Hermelinda Barajas MD [address] [address] Pedro@[email or web address] 11/13/2024 6:30 AM EDT Blood Draw Laboratory Services, [facility] 450 [facility], 2nd [place] [address] Hermelinda Barajas MD [address] [address] Perdo@[facility] 11/13/2024 7:30 AM EDT Office Visit [facility] Center for Thoracic Oncology, [address], [address]th [place] [address] Hermelinda Barajas MD [address] [place] [address] Pedro@[facility] 11/13/2024 8:30 AM EDT Infusion Infusion Therapy Services [facility] [address], [address], 9th [place] [address] Hermelinda Barajas MD [address] [place] [address] Pedro@[facility] Patria Luevano, BRIELLE [address] [place] [address] STEFANO@[facility] .[facility] 11/16/2024 9:00 AM EDT Office Visit [facility] Department of Orthopaedics 60 [place] [address] Andrew Lima MD [address] [place] [address] Department [place] [address] [email or web address] 01/18/2025 7:35 AM EST Hospital Encounter [facility] EKG 70 [place] [address] Guanakito Gallardo MD [address] [place] [address] [place] [address] [email or web address] [facility] 01/18/2025 8:30 AM EST Appointment [facility] Radiology 70 [place] [address] Odalis Jimenez PA-C 70 [facility] 5th [place] [address] [email or web address] 02/01/2025 8:40 AM EST Office Visit [facility] Otolaryngology 45 [facility] ASB2-2 [place] [address] Demetrio Armstrong MD 45 [place] [address] [email or web address] 02/25/2025 9:30 AM EST Telemedicine [facility] Cardiovascular Clinic 70 [place] [address] Guanakito Gallardo MD [address] [place] [address] [email or web address] 07/04/2025 10:00 AM EDT Telemedicine [facility] Cardiovascular Clinic 70 [place] [address] Thiago Bean MD [address] [place] [address] [email or web address] 10/18/2025 7:05 AM EDT Hospital Encounter [facility] EKG 70 [place] [address] Guanakito Gallardo MD [address] [place] [address] [email or web address] Arrived documented as of this encounter Visit Diagnoses Not on filedocumented in this encounter Additional Health Concerns Infection Onset Date Last Indicated Resolved Time COVID-19 04/06/2023 04/06/2023 04/27/2023 1:21 AM EST CoV-Risk 07/17/2024 07/17/2024 07/28/2024 1:21 AM EDT documented as of this encounter Care Teams Rn Staffing Relationship Specialty Start Date End Date Aubrey Taylor MD [address] [place] [address] PCP - General Internal Medicine 05/28/22 08/03/22 Jn Cline DO [address] [address] [email or web address] Outline App PCP - General Hospitalist 08/04/22 08/12/22 Aubrey Tayolr MD [address] [place] [address] PCP - General Internal Medicine 08/13/22 09/14/22 Marilynn Daly NP PCP - General Nurse Practitioner 09/15/22 10/12/22 Grecia Bonilla MD [address] [place] [phone] PCP - General Internal Medicine 10/13/22 Indigo Du, [facility] 300 [place] [address] [email or web address] Patient Svcs Mgr Oncology 07/27/22 Hermelinda Barajas MD [address] [place] [address]40 [place] [address] Pedro@[facility] Medical Oncology 11/29/22 Cindi Shell CNP [address] [place] [address] Fina@ [facility] Gerontology 11/29/22 Zuri Ha, BRIELLE 450 [place], [place] Milton@[email or web address] Primary Infusion Nurse 01/10/24 05/14/24 Carlos Alberto King MD, [place] [address] [place] [address] Jaelyn@[facility] Hospice and Palliative Care 04/05/24 Patria Luevano RN [address] [place] [address] [email or web address]@[email or web address] Primary Infusion Nurse 05/15/24 Jennie Ferreira RN [address] [place] [address] [email or web address]@[email or web address] Associate Infusion Nurse 10/02/24 documented as of this encounter Additional Source Comments The information contained in this document represents components of the legal health record. It is not the complete legal health record.[facility]
--- OUTSIDE RECORDS SUMMARY | 2024-11-06 12:02 | XMS_ITS | Encounter Summary ---
Author Organization [facility] Address [address] [place] [address] Phone Care Team Providers Care Retail Account Representative Name Role Phone Indigo DuSW Unavailable Grecia Bonilla MD Primary Care Provider Hermelinda Barajas MD Unavailable [phone] Cindi Shell DISTRIBUTION LINEMAN Unavailable Zuri Ha RN Unavailable Sandra [email or web address] Carlos Alberto [place] MD, [place] Unavailable Patria Luevano RN Unavailable TOBIAS [email or web address] Jennie Ferreira RN Unavailable ALISON@ [facility] Encounter Details Date Type Department Care Team (Late st Contact Info) Description 10/22/2022 Procedure Pass [facility] Echocardiography 70 [place] [address] Social History Tobacco Use Types Packs/Day Years [...] st Contact Info) Description 09/10/2024 Procedure Pass [address] [address] 09/10/2024 Procedure Pass [address] [address] 10/18/2024 Procedure Pass [facility] 70 [place] [address] 10/23/2024 Procedure Pass [facility] EKG 70 [place] [address] 10/23/2024 Procedure Pass [facility] EKG 70 [place] [address] 11/09/2024 10:30 AM EDT Appointment [address] [address] Hermelinda Barajas MD [address] [address] Pedro@[email or web address] 11/13/2024 6:30 AM EDT Blood Draw Laboratory Services, [facility] 450 [facility], 2nd [place] [address] Hermelinda Barajas MD [address] [address] Pedro@[email or web address] 11/13/2024 7:30 AM EDT Office Visit [facility] Center for Thoracic Oncology, Hermelinda-[address], [address]th [place] [address] Hermelinda Barajas MD [address] [place] [address] Pedro@[facility] 11/13/2024 8:30 AM EDT Infusion Infusion Therapy Services [address], [address]th [place] [address] Hermelinda Barajas MD [address] [place] [address] Pedro@[facility] Patria Luevano RN [address] [place] [address] [email or web address]@[email or web address] 11/16/2024 9:00 AM EDT Office Visit [facility] Department of Orthopaedics [address] [place] [address] Andrew Lima MD [address] [place] [address] Department [place] [address] [email or web address] 01/18/2025 7:35 AM EST Hospital Encounter [facility] EKG 70 [place] [address] Guanakito Gallardo MD [address] [place] [address] [place] [address] [facility] 01/18/2025 8:30 AM EST Appointment [facility] Radiology 70 [place] [address] Odalis Jimenez PA-C 70 [facility] 5th [place] [address] [email or web address] 02/01/2025 8:40 AM EST Office Visit [facility] Otolaryngology 45 [facility] ASB2-2 [place] [address] Demetrio Armstrong MD 45 [place] [phone] [email or web address] 02/25/2025 9:30 AM EST Telemedicine [facility] Cardi[facility] Clinic 70 [place] [address] Guanakito Gallardo MD [address] [place] [address] [email or web address] 07/04/2025 10:00 AM EDT Telemedicine [facility] Cardiovascular Clinic 70 [place] [address] Thiago Bean MD [address] [place] [address] [email or web address] 10/18/2025 7:05 AM EDT Hospital Encounter [facility] EKG 70 [place] [address] Gaunakito Gallardo MD [address] [place] [address] [email or web address] Arrived documented as of this encounter Visit Diagnoses Not on filedocumented in this encounter Additional Health Concerns Infection Onset Date Last Indicated Resolved Time COVID-19 04/06/2023 04/06/2023 04/27/2023 1:21 AM EST CoV-Risk 07/17/2024 07/17/2024 07/28/2024 1:21 AM EDT documented as of this encounter Care Teams Retail Account Representative Relationship Specialty Start Date End Date Grecia Bonilla MD [address] [place] [address] [place] [address] PCP - General Internal Medicine 10/13/22 Indigo Du, [place] [address] [place] [address] [email or web address] Global Sales Executive Oncology 07/27/22 Hermelinda Barajas MD [address] [place] [address] 1240 [place] [address] Pedro@[facility] Medical Oncology 11/29/22 Cindi Shell CNP [address] [place] [address] Fina @[facility] Gerontology 11/29/22 Zuri Ha RN [address] [place] [address] Milton@[facility] Primary Infusion Nurse 01/10/24 05/14/24 Carlos Alberto King MD, [place] [address] [place] [address] Jaelyn@[facility] Hospice and Palliative Care 04/05/24 Patria Luevano, BRIELLE [address] [place] [address] [email or web address]@[email or web address] Primary Infusion Nurse 05/15/24 Jennie Ferreira, BRIELLE [address] [place] [address] ALISON@[facility] Associate Infusion Nurse 10/02/24 documented as of this encounter Additional Source Comments The information contained in this document represents components of the legal health record. It is not the complete legal health record.[facility]
--- OUTSIDE RECORDS SUMMARY | 2024-11-06 12:02 | XMS_ITS | Encounter Summary ---
Author Organization [facility] Address [address] [facility] [address] [place] [address] Phone Care Team Providers Care Rhinologist Name Role Phone Indigo DuSW Unavailable Grecia Bonilla MD Primary Care Provider Hermelinda Barajas MD Unavailable [phone] Cindi Shell CERTIFIED HISTOLOGIC TECHNICIAN Unavailable [phone] Zuri Ha RN Unavailable Sandra Ruiz@[email or web address] Carlos Alberto King MD, [place] Unavailable Patria Luevano RN Unavailable TOBIAS HYATT@[email or web address] Jennie Ferreira RN Unavailable ALISON@ [facility] Encounter Details Date Type Department Care Team (Late st Contact Info) Description 04/25/2023 Telephone [facility] Center for Thoracic Oncology, [facility] 450 [facility], 9th [place] [address] Patria Mar, RN [address] [place] [address] [email or web address] Social History Tobacco Use Types Packs/Day Years Used Date Smoking Tobacco: Former Cigarettes 03 19 2 - 2022 Smokeless Tobacco: Never Education Answer Date Recorded [...] Contact Info) Description 09/10/2024 Procedure Pass [address] [address] 09/10/2024 Procedure Pass [address] [address] 10/18/2024 Procedure Pass [facility] 70 [place] [address] 10/23/2024 Procedure Pass [facility] EKG 70 [place] [address] 10/23/2024 Procedure Pass [facility] EKG 70 [place] [address] 11/09/2024 10:30 AM EDT Appointment [address] [address] Hermelinda Barajas MD 450 Wendy Shen 1240 [place] [address] [email or web address] 11/13/2024 6:30 AM EDT Blood Draw Laboratory Services, [facility] [place] 450 [facility], 2nd [place] [address] Hermelinda Barajas MD [address] [address] Pedro@[facility] 11/13/2024 7:30 AM EDT Office Visit [facility] for [facility]acic Oncology, [address], [address]th [place] [address] Hermelinda Barajas MD [address] [place] [address] Pedro@[facility] 11/13/2024 8:30 AM EDT Infusion Infusion Therapy Services [address], [address]th [place] [address] Hermelinda Barajas MD [address] [place] [address] Pedro@[facility] Patria Luevano RN [address] [place] [address] [email or web address]@[facility] 11/16/2024 9:00 AM EDT Office Visit [facility] Department of Orthopaedics 60 [place] [address] Andrew Lima MD [address] [place] [address] Department [place] [address] [email or web address] 01/18/2025 7:35 AM EST Hospital Encounter [facility] EKG 70 [place] [address] Guanakito Gallardo MD [address] [place] [address] [place] [address] [facility] 01/18/2025 8:30 AM EST Appointment [facility] 70 [place] [address] Odalis Jimenez PA-C 70 [facility] 5th [place] [address] [email or web address] 02/01/2025 8:40 AM EST Office Visit [facility] Otolaryngology 45 [facility] ASB2-2 [place] [address] Demetrio Armstrong MD 45 [place] [phone] [email or web address] 02/25/2025 9:30 AM EST Telemedicine [facility] Cardiovascular Clinic 70 [place] [address] Guanakito Gallardo MD [address] [place] [address] [place] [address] [email or web address] 07/04/2025 10:00 AM EDT Telemedicine [facility] Cardi[facility] Clinic [address] [place] [address] Thiago Bean MD [address] [place] [address] [email or web address] 10/18/2025 7:05 AM EDT Hospital Encounter [facility] EKG 70 [place] [address] Guanakito Gallardo MD [address] [place] [address] [place] [address] Arrived documented as of this encounter Visit Diagnoses Not on filedocumented in this encounter Additional Health Concerns Infection Onset Date Last Indicated Resolved Time COVID-19 04/06/2023 04/06/2023 04/27/2023 1:21 AM EST CoV-Risk 07/17/2024 07/17/2024 07/28/2024 1:21 AM EDT documented as of this encounter Care Teams Rhinologist Relationship Specialty Start Date End Date Grecia Bonilla MD [address] [place] [address] [place] [address] PCP - General Internal Medicine 10/13/22 Indigo Du, CERTIFIED OPTICIAN [address] [place] [address] [email or web address] Electrophonic Engineer Oncology 07/27/22 Hermelinda Barajas MD [address] [place] [address] [place] [address] Pedro@[facility] Medical Oncology 11/29/22 Cindi Shell CNP [address] [place] [address] Fina @[facility] Gerontology 11/29/22 Zuri Ha RN [address] [place] [address] Milton@[facility] Primary Infusion Nurse 01/10/24 05/14/24 Carlos Alberto King MD, [place] [address] [place] [address] Jaelyn@[facility] Hospice and Palliative Care 04/05/24 Patria Luevano, BRIELLE [address] [place] [address] STEFANO@[facility] Primary Infusion Nurse 05/15/24 Jennie Ferreira RN [address] [place] [address] ALISON@[facility] Associate Infusion Nurse 10/02/24 documented as of this encounter Additional Source Comments The information contained in this document represents components of the legal health record. It is not the complete legal health record.[facility]
--- OUTSIDE RECORDS SUMMARY | 2024-11-06 12:02 | XMS_ITS | Encounter Summary ---
Author Organization [facility] Address [address] [place] [address] Phone Care Team Providers Care Machine Long Goods Helper Name Role Phone Indigo DuSW Unavailable [phone] Grecia Bonilla MD Primary Care Provider Hermelinda Barajas MD Unavailable [phone] Cindi Shell [facility] Unavailable [phone] Carlos Alberto King MD, [place] Unavailable Patria Luevano RN Unavailable TOBIAS [email or web address] Jennie Ferreira RN Unavailable ALISON@ [facility] Encounter Details Date Type Department Care Team (Late st Contact Info) Description 05/15/2024 Procedure Pass [facility], Ct Scan - [address] [address] Social History Tobacco Use Types Packs/Day Years [...] st Contact Info) Description 09/10/2024 Procedure Pass [address] [address] 09/10/2024 Procedure Pass [address] [address] 10/18/2024 Procedure Pass [facility] 70 [place] [address] 10/23/2024 Procedure Pass [facility] EKG 70 [place] [address] 10/23/2024 Procedure Pass [facility] EKG 70 [place] [address] 11/09/2024 10:30 AM EDT Appointment [address] [address] Hermelinda Barajas MD [facility] Wendy Shen 1240 [place] [address] [email or web address] 11/13/2024 6:30 AM EDT Blood Draw [facility], [facility] 450 [facility], 2nd Floor [place], [place] Hermelinda Barajas MD [address] [address] Pedro@[email or web address] 11/13/2024 7:30 AM EDT Office Visit [facility], [facility] 450 [facility], 9th [place] [address] Hermelinda Barajas MD [address] [place] [address] Pedro@[facility] 11/13/2024 8:30 AM EDT Infusion Infusion Therapy Services [facility] 9, [facility] 450 [facility], 9th [place] [address] Hermelinda Barajas MD [address] [place] [address] Pedro@[facility] Patria Luevano, BRIELLE 450 [place], [place] [email or web address]@[email or web address] .[facility] 11/16/2024 9:00 AM EDT Office Visit [facility] Department of Orthopaedics 60 [place] [address] Andrew Lima MD [address] [place] [address] Department [place] [address] [email or web address] 01/18/2025 7:35 AM EST Hospital Encounter [facility] EKG 70 [place] [address] Guanakito Gallardo MD [address] [place] [address] [place] [address] Arrived 01/18/2025 8:30 AM EST Appointment [facility] 70 [place] [address] Odalis Jimenez PA-C 70 [facility] 5th [place] [address] [email or web address] 02/01/2025 8:40 AM EST Office Visit [facility] Otolaryngology 45 [facility] ASB2-2 [place] [address] Demetrio Armstrong MD 45 [place] [phone] [email or web address] 02/25/2025 9:30 AM EST Telemedicine [facility] Cardiovascular Clinic 70 [place] [address] Guanakito Gallardo MD [address] [place] [address] [place] [address] [email or web address] 07/04/2025 10:00 AM EDT Telemedicine [facility] Cardiovascular Clinic [address] [place] [address] Thiago Bean MD [address] [place] [address] [email or web address] 10/18/2025 7:05 AM EDT Hospital Encounter [facility] EKG 70 [place] [address] Guanakito Gallardo MD [address] [place] [address] [place] [address] [email or web address] Arrived documented as of this encounter Visit Diagnoses Not on filedocumented in this encounter Additional Health Concerns Infection Onset Date Last Indicated Resolved Time CoV-Risk 07/17/2024 07/17/2024 07/28/2024 1:21 AM EDT documented as of this encounter Care Teams Machine Long Goods Helper Relationship Specialty Start Date End Date Grecia Bonilla MD [address] [place] [address] [place] [address] PCP - General Internal Medicine 10/13/22 Indigo Du, [facility] 300 [place] [address] [email or web address] Industrial Health Engineer Oncology 07/27/22 Hermelinda Barajas MD [address] [place] [address] 1240 [place] [address] Pedro@[facility] Medical Oncology 11/29/22 Cindi Shell CNP [address] [place] [address] Fina @[facility] Gerontology 11/29/22 Carlos Alberto King MD, [place] [address] [place] [address] Jaelyn@[facility] Hospice and Palliative Care 04/05/24 Patria Luevano, BRIELLE [address] [place] [address] [email or web address]@[facility] Primary Infusion Nurse 05/15/24 Jennie Ferreira RN [address] [place] [address] ALISON@[email or web address] Associate Infusion Nurse 10/02/24 documented as of this encounter Additional Source Comments The information contained in this document represents components of the legal health record. It is not the complete legal health record.[facility]
--- OUTSIDE RECORDS SUMMARY | 2024-11-06 12:02 | XMS_ITS | Encounter Summary ---
Author Organization [facility] Address [address] [facility] [address] [place] [address] Phone Care Team Providers Care Wellness Coordinator Name Role Phone Indigo DuSW Unavailable [phone] Aubrey Taylor MD Primary Care Provider [phone] Marilynn Daly NP Primary Care Provider Unavailab Grecia Rosado MD Primary Care Provider Hermelinda Barajas MD Unavailable [phone] Cindi Shell [facility] Unavailable [phone] Zuri Ha RN Unavailable Sandra Ruiz@[email or web address] Carlos Alberto King MD, [place] Unavailable [phone] Patria Luevano RN Unavailable TOBIAS HYATT@[email or web address].[place] Jennei Ferreira RN Unavailable ALISON@ [facility] Encounter Details Date Type Department Care Team (Late st Contact Info) Description 09/10/2022 Procedure Pass [facility] [place] [facility] [place] 300 [facility] 3rd [place] [address] Social History Tobacco Use Types Packs/Day Years [...] Contact Info) Description 09/10/2024 Procedure Pass [address] [address] 09/10/2024 Procedure Pass [address] [address] 10/18/2024 Procedure Pass [facility] 70 [place] [address] 10/23/2024 Procedure Pass [facility] EKG 70 [place] [address] 10/23/2024 Procedure Pass [facility] EKG 70 [place] [address] 11/09/2024 10:30 AM EDT Appointment [address] [address] Hermelinda Barajas MD [address] [address] [email or web address] 11/13/2024 6:30 AM EDT Blood Draw Laboratory Services, [facility] [address] [facility], 2nd [place] [address] Hermelinda Barajas MD [address] [address] Pedro@[facility] 11/13/2024 7:30 AM EDT Office Visit [facility] Center for Thoracic Oncology, [address], [address]th [place] [address] Hermelinda Barajas MD [address] [place] [address] Pedro@[facility] 11/13/2024 8:30 AM EDT Infusion Infusion Therapy Services [facility] [address], 9th [place] [address] Hermelinda Barajas MD [address] [place] [address] Pedro@[facility] Patria Luevano, BRIELLE [address] [place] [address] STEFANO@[facility] .[facility] 11/16/2024 9:00 AM EDT Office Visit [facility] Department of Orthopaedics 60 [place] [address] Andrew Lima MD [address] [place] [address] Department [place] [address] [email or web address] 01/18/2025 7:35 AM [facility] Hospital Encounter [facility] EKG 70 [place] [address] Guanakito Gallardo MD [address] [place] [address] [place] [address] [email or web address] 01/18/2025 8:30 AM EST Appointment [facility] Radiology 70 [place] [address] Odalis Jimenez PA-C 70 [facility] 5th [place] [address] [email or web address] 02/01/2025 8:40 AM EST Office Visit [facility] Otolaryngology 45 [facility]2 [place] [address] Demetrio Armstrong MD 45 [place] [address] [email or web address] 02/25/2025 9:30 AM EST Telemedicine [facility] Cardiovascular Clinic [address] [place] [address] Guanakito Gallardo MD [address] [place] [address] [email or web address] 07/04/2025 10:00 AM EDT Telemedicine [facility] Cardiovascular Clinic [address] [place] [address] Thiago Bean MD [address] [place] [address] [email or web address] 10/18/2025 7:05 AM EDT Hospital Encounter [facility] EKG 70 [place] [address] Guanakito Gallardo MD [address] [place] [address] [place] [address] [email or web address] Arrived documented as of this encounter Visit Diagnoses Not on filedocumented in this encounter Additional Health Concerns Infection Onset Date Last Indicated Resolved Time COVID-19 04/06/2023 04/06/2023 04/27/2023 1:21 AM EST CoV-Risk 07/17/2024 07/17/2024 07/28/2024 1:21 AM EDT documented as of this encounter Care Teams Wellness Coordinator Relationship Specialty Start Date End Date Aubrey Taylor MD [address] [place] [address] PCP - General Internal Medicine 08/13/22 09/14/22 Marilynn Daly, STEAM FLATTENER PCP - General Nurse Practitioner 09/15/22 10/12/22 Grecia Bonilla MD [address] [place] [address] [place] [address] PCP - General Internal Medicine 10/13/22 Indigo Du, [facility] 300 [place] [address] [email or web address] Chip Mucker Oncology 07/27/22 Hermelinda Barajas MD [address] [place] [address] Pedro@[facility] Medical Oncology 11/29/22 Cindi Shell CNP [address] [place] [address] Fina@ [facility] Gerontology 11/29/22 Zuri Ha RN [address] [place] [address] Milton@[facility] Primary Infusion Nurse 01/10/24 05/14/24 Carlos Alberto King MD, [place] [address] [place] [address] Jaelyn@[facility] Hospice and Palliative Care 04/05/24 Patria Luevano RN [address] [place] [address] STEFANO@[facility] Primary Infusion Nurse 05/15/24 Jennie Ferreira, BRIELLE [address] [place] [address] ALISON@[facility] Associate Infusion Nurse 10/02/24 documented as of this encounter Additional Source Comments The information contained in this document represents components of the legal health record. It is not the complete legal health record.[facility]
--- OUTSIDE RECORDS SUMMARY | 2024-11-06 12:02 | XMS_ITS | Encounter Summary ---
Author Organization [facility] Address [address] [facility] [address] [place] [address] Phone Care Team Providers Care Laborer Name Role Phone Indigo DuSW Unavailable Grecia Bonilla MD Primary Care Provider Hermelinda Barajas MD Unavailable [phone] Cindi Shell [facility] Unavailable Carlos Alberto King MD, [place] Unavailable [phone] Patria Luevano RN Unavailable TOBIAS [email or web address] Jennie Ferreira RN Unavailable ALISON@ [facility] Reason for Visit * Reason Onset Date Comments Antonshreyass/pt returning call 10/19/2024 Encounter Details Date Type Department Care Team ([facility] st Contact Info) Description 10/19/2024 Telephone [facility] [address] [place] [address] Melanie Cruz, PA-C 75 [facility] PBB-[address] [place] [address] [email or web address] Nancy/pt returning call Social History Tobacco Use Types Packs/Day Years [...] as of this encounter Progress Notes * Kirsten Duarte - 10/19/2024 2:17 PM EDT Good afternoon, Pt called because he missed a call from the clinic. He said he just had a Watchman procedure and the f/u call was to check on his BP and other stats. One thing he mentioned is that he is supposed to download the [employer] mobile esther on his phone and there is a $12 monthly charge that he does not want to pay for. Please try calling pt again. CB# [phone] Thank you, Kirsten Majano Patient Special Needs Nanny Department of Medicine Access Center documented in this encounter Plan of Treatment Upcoming Encounters Date Type Department Care Team (Late st Contact Info) Description 09/10/2024 Procedure Pass [facility], [facility] [address] [place] [address] 09/10/2024 Procedure Pass [facility], [facility] 30 [place] [address] 10/18/2024 Procedure Pass [facility] [address] [place] [address] 10/23/2024 Procedure Pass [facility] EKG [address] [place] [address] 10/23/2024 Procedure Pass [facility] EKG [address] [place] [address] 11/09/2024 10:30 AM EDT Appointment [facility], [address] [address] Hermelinda Barajas MD [address] [address] Pedro@[facility] 11/13/2024 6:30 AM EDT Blood Draw Laboratory Services, [address], 2nd Floor [place], [place] Hermelinda Barajas MD [address] [place] [address] Pedro@[facility] 11/13/2024 7:30 AM EDT Office Visit [facility], [facility] 450 [facility], 9th [place] [address] Hermelinda Barajas MD [address] [place] [address] Pedro@[facility] 11/13/2024 8:30 AM EDT Infusion Infusion Therapy Services [facility] [address], [address], 9th [place] [address] Hermelinda Barajas MD 450 [facility] 1240 [place] [address] Pedro@[facility] Patria Luevano RN 450 [place] [email or web address]@[email or web address] 11/16/2024 9:00 AM EDT Office Visit [facility] Department of Orthopaedics 60 [place] [address] Andrew Lima MD [address] [place] [address] Department [place] [address] [email or web address] 01/18/2025 7:35 AM EST Hospital Encounter [facility] EKG 70 [place] [address] Guanakito Gallardo MD [address] [place] [address] [place] [address] [email or web address] 01/18/2025 8:30 AM EST Appointment [facility] Radiology [address] [place] [address] Odalis Jimenez PA-C 70 [facility] 5th [place] [address] [email or web address] 02/01/2025 8:40 AM EST Office Visit [facility] Otolaryngology 45 [facility] ASB2-2 [place] [address] Demetrio Armstrong MD 45 [place] [phone] [email or web address] 02/25/2025 9:30 AM EST Telemedicine [facility] [address] [place] [address] Guanakito Gallardo MD 75 [facility] [place] [address] [email or web address] 07/04/2025 10:00 AM EDT Telemedicine [facility] [address] [place] [address] Thiago Bean MD [address] [place] [address] [email or web address] 10/18/2025 7:05 AM EDT Hospital Encounter [facility] EKG [address] [place] [address] Guanakito Gallardo MD [address] [place] [address] [place] [address] [email or web address] Arrived documented as of this encounter Visit Diagnoses Not on filedocumented in this encounter Care Teams Laborer Relationship Specialty Start Date End Date Grecia Bonilla MD [address] [place] [address] [place] [address] PCP - General Internal Medicine 10/13/22 Indigo Du, [facility] 300 [place] [address] [email or web address] Settlement Agent Oncology 07/27/22 Hermelinda Barajas MD [address] [address] [email or web address] Medical Oncology 11/29/22 Cindi Shell CNP 450 [facility] [place] [address] Fina @[facility] Gerontology 11/29/22 Carlos Alberto King MD, [place] [address] [place] [address] Jaelyn@[facility] Hospice and Palliative Care 04/05/24 Patria Luevano RN [address] [place] [address] [email or web address]@[facility] Primary Infusion Nurse 05/15/24 Jennie Ferreira, BRIELLE [address] [place] [address] ALISON@[email or web address] Associate Infusion Nurse 10/02/24 documented as of this encounter Additional Source Comments The information contained in this document represents components of the legal health record. It is not the complete legal health record.[facility]
--- OUTSIDE RECORDS SUMMARY | 2024-11-06 12:02 | XMS_ITS | Encounter Summary ---
Author Organization [facility] Address [address] [facility] [address] [place] [address] Phone Care Team Providers Care Alterations Sewer Name Role Phone Indigo DuSW Unavailable Aubrey Taylor MD Primary Care Provider [phone] Marilynn Daly NP Primary Care Provider Unavailab Grecia Rosado MD Primary Care Provider Hermelinda Barajas MD Unavailable [phone] Cindi Shell [facility] Unavailable Zuri Ha RN Unavailable Sandra Ruiz@[email or web address] Carlos Alberto King MD, [place] Unavailable Patria Luevano RN Unavailable TOBIAS HYATT@[facility] Jennie Ferreira RN Unavailable ALISON@ [facility] Encounter Details Date Type Department Care Team (Late st Contact Info) Description 09/10/2022 Procedure Pass [facility] [place] 300 [facility] 3rd [place] [address] Social History Tobacco Use Types [...] st Contact Info) Description 09/10/2024 Procedure Pass [address] [address] 09/10/2024 Procedure Pass [address] [address] 10/18/2024 Procedure Pass [facility] 70 [place] [address] 10/23/2024 Procedure Pass [facility] EKG 70 [place] [address] 10/23/2024 Procedure Pass [facility] EKG 70 [place] [address] 11/09/2024 10:30 AM EDT Appointment [address] [address] Hermelinda Barajas MD [address] [address] [email or web address] 11/13/2024 6:30 AM EDT Blood Draw Laboratory Services, [facility] [facility] [place] 450 [facility], 2nd [place] [address] Hermelinda Barajas MD [address] [address] Pedro@[facility] 11/13/2024 7:30 AM EDT Office [facility], [address], 9th [place] [address] Hermelinda Barajas MD [address] [place] [address] Pedro@[facility] 11/13/2024 8:30 AM EDT Infusion Infusion Therapy Services [facility] [address], [address]th [place] [address] Hermelinda Barajas MD [address] [place] [address] Pedro@[facility] Patria Luevano, BRIELLE [address] [place] [address] STEFANO@[facility] 11/16/2024 9:00 AM EDT Office Visit [facility] Department of Orthopaedics 60 [place] [address] Andrew Lima MD [address] [place] [address] Department [place] [address] [email or web address] 01/18/2025 7:35 AM [facility] Hospital Encounter [facility] EKG 70 [place] [address] Guanakito Gallardo MD [address] [place] [address] [place] [address] [email or web address] 01/18/2025 8:30 AM EST Appointment [facility] Radiology 70 [place] [address] Odalis Jimenez PA-C 70 [facility] 5th [place] [address] [email or web address] 02/01/2025 8:40 AM EST Office Visit [facility] Otolaryngology [address] [facility]2 [place] [address] Demetrio Armstrong MD 45 [place] [phone] [email or web address] 02/25/2025 9:[address] [facility] [address] [place] [address] Guanakito Gallardo MD [address] [place] [address] [email or web address] 07/04/2025 10:[address] [facility] Clinic [address] [place] [address] Thiago Bean MD [address] [place] [address] [email or web address] 10/18/2025 7:05 AM EDT Hospital Encounter [facility] EKG 70 [place] [address] Guanakito Gallardo MD [address] [place] [address] [place] [address] [email or web address] Arrived documented as of this encounter Visit Diagnoses Not on filedocumented in this encounter Additional Health Concerns Infection Onset Date Last Indicated Resolved Time COVID-19 04/06/2023 04/06/2023 04/27/2023 1:21 AM EST CoV-Risk 07/17/2024 07/17/2024 07/28/2024 1:21 AM EDT documented as of this encounter Care Teams Alterations Sewer Relationship Specialty Start Date End Date Aubrey [place] MD [address] [place] [address] PCP - General Internal Medicine 08/13/22 09/14/22 Marilynn Daly, VAN LOADER PCP - General Nurse Practitioner 09/15/22 10/12/22 Grecia Bonilla MD [address] [place] [address] [place] [address] PCP - General Internal Medicine 10/13/22 Indigo Du, [facility] 300 [place] [address] [email or web address] Lithographic General Worker Oncology 07/27/22 Hermelinda Barajas MD [address] [place] [address] Pedro@[facility] Medical Oncology 11/29/22 Cindi Shell CNP [address] [place] [address] Fina@ [facility] Gerontology 11/29/22 Zuri Ha RN [address] [place] [phone] Milton@[email or web address] Primary Infusion Nurse 01/10/24 05/14/24 Carlos Alberto King MD, [place] [address] [place] [address] Jaelyn@[facility] Hospice and Palliative Care 04/05/24 Patria Luevano RN [address] [place] [address] STEFANO@[facility] Primary Infusion Nurse 05/15/24 Jennie Ferreira, RBIELLE [address] [place] [address] ALISON@[facility] Associate Infusion Nurse 10/02/24 documented as of this encounter Additional Source Comments The information contained in this document represents components of the legal health record. It is not the complete legal health record.[facility]
--- OUTSIDE RECORDS SUMMARY | 2024-11-06 12:02 | XMS_ITS | Encounter Summary ---
Author Organization [facility] Address [address] [place] [address] Phone Care Team Providers Care Toll Ticket Clerk Name Role Phone Indigo DuSW Unavailable Grecia Bonilla MD Primary Care Provider Hermelinda Barajas MD Unavailable [phone] Cindi Shell BASE ENGINEER Unavailable Zuri Ha RN Unavailable Sandra Ruiz@[email or web address] Carlos Alberto King MD, [place] Unavailable Patria Luevano RN Unavailable TOBIAS HYATT@[email or web address] Jennie Ferreira RN Unavailable ALISON@ [facility] Encounter Details Date Type Department Care Team (Late st Contact Info) Description 01/11/2024 Procedure Pass [facility] 75 [place] [address] Social History Tobacco Use Types Packs/Day Years [...] st Contact Info) Description 09/10/2024 Procedure Pass [address] [address] 09/10/2024 Procedure Pass [address] [address] 10/18/2024 Procedure Pass [facility] 70 [place] [address] 10/23/2024 Procedure Pass [facility] EKG 70 [place] [address] 10/23/2024 Procedure Pass [facility] EKG 70 [place] [address] 11/09/2024 10:30 AM EDT Appointment [address] [address] Hermelinda Barajas MD [address] [address] Pedro@[facility] 11/13/2024 6:30 AM EDT Blood Draw Laboratory Services, [facility] [place] 450 [facility], 2nd [place] [address] Hermelinda Barajas MD [address] [address] Pedro@[facility] 11/13/2024 7:30 AM EDT Office [facility], [address], 9th [place] [address] Hermelinda Barajas MD [address] [place] [address] Pedro@[facility] 11/13/2024 8:30 AM EDT Infusion Infusion Therapy Services [facility] 9, [address], 9th [place] [address] Hermelinda Barajas MD [address] [place] [address] Pedro@[facility] Patria Luevano RN [address] [place] [address] [email or web address]@[facility] 11/16/2024 9:00 AM EDT Office Visit [facility] Department of Orthopaedics [address] [place] [address] Andrew Lima MD [address] [place] [address] Department [place] [address] [email or web address] 01/18/2025 7:35 AM EST Hospital Encounter [facility] EKG 70 [place] [address] Guanakito Gallardo MD [address] [place] [address] [place] [address] [email or web address] Arrived 01/18/2025 8:30 AM EST Appointment [facility] Radiology 70 [place] [address] Odalis Jimenez PA-C 70 [facility] 5th [place] [address] [email or web address] 02/01/2025 8:40 AM EST Office Visit [facility] Otolaryngology 45 [facility] ASB2-2 [place] [address] Demetrio Armstrong MD 45 [place] [phone] [email or web address] 02/25/2025 9:30 AM EST Telemedicine [facility] 70 [place] [address] Guanakito Gallardo MD [address] [place] [address] [email or web address] 07/04/2025 10:00 AM EDT Telemedicine [facility] 70 [place] [address] Thiago Bean MD [address] [place] [address] [email or web address] 10/18/2025 7:05 AM EDT Hospital Encounter [facility] EKG 70 [place] [address] Guanakito Gallardo MD [address] [place] [address] [email or web address] Arrived documented as of this encounter Visit Diagnoses Not on filedocumented in this encounter Additional Health Concerns Infection Onset Date Last Indicated Resolved Time CoV-Risk 07/17/2024 07/17/2024 07/28/2024 1:21 AM EDT documented as of this encounter Care Teams Toll Ticket Clerk Relationship Specialty Start Date End Date Grecia Bonilla MD [address] [place] [address] [place] [address] PCP - General Internal Medicine 10/13/22 Indigo Du, [facility] 300 [place] [address] [email or web address] Lettuce Trimmer Oncology 07/27/22 Hermelinda Barajas MD [address] [place] [address] Pedro@[facility] Medical Oncology 11/29/22 Cindi Shell CNP [address] [place] [address] Fina @[facility] Gerontology 11/29/22 Zuri Ha RN [address] [place] [address] Milton@[facility] Primary Infusion Nurse 01/10/24 05/14/24 Carlos Alberto King MD, [place] [address] [place] [address] Jaelyn@[facility] Hospice and Palliative Care 04/05/24 Patria Luevano, BRIELLE [address] [place] [address] STEFANO@[facility] Primary Infusion Nurse 05/15/24 Jennie Ferreira, BRIELLE [address] [place] [address] ALISON@[facility] Associate Infusion Nurse 10/02/24 documented as of this encounter Additional Source Comments The information contained in this document represents components of the legal health record. It is not the complete legal health record.[facility]
--- OUTSIDE RECORDS SUMMARY | 2024-11-06 12:02 | XMS_ITS | Encounter Summary ---
Author Organization [facility] Address [address] [facility] [address] [place] [address] Phone Care Team Providers Care Wedding Day Coordinator Name Role Phone Indigo DuSW Unavailable Aubrey Taylor MD Primary Care Provider [phone] Marilynn Daly NP Primary Care Provider Unavailab Grecia Rosado MD Primary Care Provider Hermelinda Barajas MD Unavailable [phone] Cindi Shell [facility] Unavailable Zuri Ha RN Unavailable Sandra Ruiz@[email or web address] Carlos Alberto King MD, [place] Unavailable Patria Luevano RN Unavailable TOBIAS HYATT@[email or web address] Jennie Ferreira RN Unavailable ALISON@ [facility] Encounter Details Date Type Department Care Team (Late st Contact Info) Description 08/13/2022 Procedure Pass [facility] [facility] [place], [place] 300 [facility] 3rd [place] [address] Social History Tobacco Use Types [...] st Contact Info) Description 09/10/2024 Procedure Pass [address] [address] 09/10/2024 Procedure Pass [address] [address] 10/18/2024 Procedure Pass [facility] 70 [place] [address] 10/23/2024 Procedure Pass [facility] EKG 70 [place] [address] 10/23/2024 Procedure Pass [facility] EKG 70 [place] [address] 11/09/2024 10:30 AM EDT Appointment [address] [address] Hermelinda Barajas MD [address] [address] [email or web address] 11/13/2024 6:30 AM EDT Blood Draw Laboratory Services, [facility] [facility] [place] 450 [facility], 2nd [place] [address] Hermelinda Barajas MD [address] [address] Pedro@[facility] 11/13/2024 7:30 AM EDT Office Visit [facility] Center for Thoracic Oncology, [address], 9th [place] [address] Hermelinda Barajas MD [address] [place] [address] Pedro@[facility] 11/13/2024 8:30 AM EDT Infusion Infusion Therapy Services [facility] [address], [address]th [place] [address] Hermelinda Barajas MD [address] [place] [address] Pedro@[facility] Patria Luevano, BRIELLE [address] [place] [address] [email or web address]@[facility] 11/16/2024 9:00 AM EDT Office Visit [facility] Department of Orthopaedics 60 [place] [address] Andrew Lima MD [address] [place] [address] Department [place] [address] [email or web address] 01/18/2025 7:35 AM [facility] Hospital Encounter [facility] EKG 70 [place] [address] Guanakito Gallardo MD [address] [place] [address] [place] [address] [email or web address] [facility] 01/18/2025 8:30 AM EST Appointment [facility] Rad[facility] 70 [place] [address] Odalis Jimenez PA-C 70 [facility] 5th [place] [address] [email or web address] 02/01/2025 8:40 AM EST Office Visit [facility] Otolaryngology 45 [facility]2-2 [place] [address] Demetrio Armstrong MD 45 [place] [address] [email or web address] 02/25/2025 9:[address] [facility] Cardiovascular Clinic [address] [place] [address] Guanakito Gallardo MD [address] [place] [address] [email or web address] 07/04/2025 10:[address] [facility] Cardiovascular Clinic [address] [place] [address] Thiago Bean MD [address] [place] [address] [email or web address]@[facility] 10/18/2025 7:05 AM EDT Hospital Encounter [facility] EKG 70 [place] [address] Guanakito Gallardo MD [address] [place] [address] [place] [address] [email or web address] Arrived documented as of this encounter Visit Diagnoses Not on filedocumented in this encounter Additional Health Concerns Infection Onset Date Last Indicated Resolved Time COVID-19 04/06/2023 04/06/2023 04/27/2023 1:21 AM EST CoV-Risk 07/17/2024 07/17/2024 07/28/2024 1:21 AM EDT documented as of this encounter Care Teams Wedding Day Coordinator Relationship Specialty Start Date End Date Aubrey Taylor MD [address] [place] [address] PCP - General Internal Medicine 08/13/22 09/14/22 Marilynn Daly, AUDIOVISUAL PRODUCTION SPECIALIST PCP - General Nurse Practitioner 09/15/22 10/12/22 Grecia Bonilla MD [address] [place] [address] [place] [address] PCP - General Internal Medicine 10/13/22 Indigo Du, [facility] 300 [place] [address] [email or web address] Oven Tender Oncology 07/27/22 Hermelinda Barajas MD [address] [place] [address] Pedro@[facility] Medical Oncology 11/29/22 Cindi Shell CNP [address] [place] [address] Fina@ [facility] Gerontology 11/29/22 Zuri Ha RN [address] [place] [address] Milton@[facility] Primary Infusion Nurse 01/10/24 05/14/24 Carlos Alberto King MD, [place] [address] [place] [address] Jaelyn@[facility] Hospice and Palliative Care 04/05/24 Patria Luevano RN [address] [place] [address] STEFANO@[facility] Primary Infusion Nurse 05/15/24 Jennie Ferreira, BRIELLE [address] [place] [address] ALISON@[email or web address] Associate Infusion Nurse 10/02/24 documented as of this encounter Additional Source Comments The information contained in this document represents components of the legal health record. It is not the complete legal health record.[facility]
--- OUTSIDE RECORDS SUMMARY | 2024-11-06 12:02 | XMS_ITS | Encounter Summary ---
Author Organization [facility] Address [address] [place] [address] Phone Care Team Providers Care Grain Distributor Name Role Phone Indigo DuSW Unavailable Grecia Bonilla MD Primary Care Provider Hermelinda Barajas MD Unavailable [phone] Cindi Shell FOOD MIXER ASSEMBLER Unavailable Zuri Ha RN Unavailable Sandra [email or web address] Carlos Alberto King MD, [place] Unavailable Patria Luevano RN Unavailable TOBIAS [email or web address] Jennie Ferreira RN Unavailable [email or web address] Encounter Details Date Type Department Care Team (Late st Contact Info) Description 01/11/2024 Procedure Pass [facility] [address] [place] [address] Social History Tobacco Use Types Packs/Day Years [...] st Contact Info) Description 09/10/2024 Procedure Pass [address] [address] 09/10/2024 Procedure Pass [address] [address] 10/18/2024 Procedure Pass [facility] [address] [place] [address] 10/23/2024 Procedure Pass [facility] EKG [address] [place] [address] 10/23/2024 Procedure Pass [facility] EKG [address] [place] [address] 11/09/2024 10:30 AM EDT Appointment [address] [address] Hermelinda Barajas MD [address] [address] [email or web address] 11/13/2024 6:30 AM EDT Blood Draw Laboratory Services, [facility] 450 [facility], 2nd [place] [address] Hermelinda Barajas MD [address] [address] [email or web address] 11/13/2024 7:30 AM EDT Office Visit [facility], [address], [address] [place] [address] Hermelinda Barajas MD [address] [place] [phone] Pedro@[email or web address] 11/13/2024 8:30 AM EDT Infusion Infusion Therapy Services [facility], [address], [address] [place] [address] Hermelinda Barajas MD [address] [place] [phone] [email or web address]@[email or web address] Patria Luevano RN [address] [place] [address] [email or web address] 11/16/2024 9:00 AM EDT Office Visit [facility] Department of Orthopaedics [address] [place] [address] Andrew Lima MD [address] [place] [address] Department [place] [address] [email or web address] 01/18/2025 7:35 AM EST Hospital Encounter [facility] EKG [address] [place] [address] Guanakito Gallardo MD [address] [place] [address] [place] [address] [email or web address] Arrived 01/18/2025 8:30 AM EST Appointment [facility] Radiology [address] [place] [address] Odalis Jimenez PA-C 70 [facility] 5th [place] [address] [email or web address] 02/01/2025 8:40 AM EST Office Visit [facility] Otolaryngology [address] [facility] ASB2-2 [place] [address] Demetrio Armstrong MD [address] [place] [phone] [email or web address] 02/25/2025 9:30 AM EST Telemedicine [facility] [address] [place] [address] Guanakito Gallardo MD [address] [place] [address] [email or web address] 07/04/2025 10:00 AM EDT Telemedicine [facility] Cardi[facility] Clinic [address] [place] [address] Thiago Bean MD [address] [place] [address] [email or web address] 10/18/2025 7:05 AM EDT Hospital Encounter [facility] EKG [address] [place] [address] Guanakito Gallardo MD [address] [place] [address] [email or web address] Arrived documented as of this encounter Visit Diagnoses Not on filedocumented in this encounter Additional Health Concerns Infection Onset Date Last Indicated Resolved Time CoV-Risk 07/17/2024 07/17/2024 07/28/2024 1:21 AM EDT documented as of this encounter Care Teams Grain Distributor Relationship Specialty Start Date End Date Grecia Bonilla MD [address] [place] [address] [place] [address] PCP - General Internal Medicine 10/13/22 Indigo Du, [facility] [address] [place] [address] [email or web address] Transportation Maintenance Supervisor Oncology 07/27/22 Hermelinda Barajas MD [address] [place] [address] [email or web address] Medical Oncology 11/29/22 Cindi Shell CNP [address] [place] [address] Fina @[email or web address] Gerontology 11/29/22 Zuri Ha RN [address] [place] [address] [place]@[email or web address] Primary Infusion Nurse 01/10/24 05/14/24 Carlos Alberto King MD, [place] [address] [place] [phone] [email or web address] Hospice and Palliative Care 04/05/24 Patria Luevano, BRIELLE [address] [place] [address] [email or web address] Primary Infusion Nurse 05/15/24 Jennie Ferreira, BRIELLE [address] [place] [address] [email or web address] Associate Infusion Nurse 10/02/24 documented as of this encounter Additional Source Comments The information contained in this document represents components of the legal health record. It is not the complete legal health record.[facility]
--- OUTSIDE RECORDS SUMMARY | 2024-11-06 12:02 | XMS_ITS | Clinical Summary ---
Author Organization [facility] Address [address] [place] [address] Care Team Providers Care Medical Records Analyst Name Role Phone Unavailable Primary Care Provider [...] of 2) 2015 COVID-19 Vaccine ( - season) 2024
--- OUTSIDE RECORDS SUMMARY | 2024-11-06 12:02 | XMS_ITS | Encounter Summary ---
Author Organization [facility] Address [address] [facility] [address] [place] [address] Phone Care Team Providers Care Social Work Lecturer Name Role Phone Indigo DuSW Unavailable [phone] Aubrey Taylor MD Primary Care Provider [phone] Marilynn Daly NP Primary Care Provider Unavailab Grecia Rosado MD Primary Care Provider Hermelinda Barajas MD Unavailable [phone] Cindi Shell [facility] Unavailable Zuri Ha RN Unavailable Sandra [email or web address] Carlos Alberto King MD, [place] Unavailable Patria Luevano RN Unavailable TOBIAS [email or web address] Jennie Ferreira RN Unavailable [email or web address] Encounter Details Date Type Department Care Team (Late st Contact Info) Description 08/13/2022 Procedure Pass [facility] [place] 300 [facility] 3rd [place] [address] Social History Tobacco Use Types [...] st Contact Info) Description 09/10/2024 Procedure Pass [address] [address] 09/10/2024 Procedure Pass [address] [address] 10/18/2024 Procedure Pass [facility] 70 [place] [address] 10/23/2024 Procedure Pass [facility] EKG [address] [place] [address] 10/23/2024 Procedure Pass [facility] EKG 70 [place] [address] 11/09/2024 10:30 AM EDT Appointment [address] [address] Hermelinda Barajas MD [address] [address] [email or web address] 11/13/2024 6:30 AM EDT Blood Draw Laboratory Services, [facility] [place] 450 [facility], 2nd [place] [address] Hermelinda Barajas MD [address] [address] Pedro@[email or web address] 11/13/2024 7:30 AM EDT Office Visit [facility], [address], [address] [place] [address] Hermelinda Barajas MD [address] [place] [phone] Pedro@[email or web address] 11/13/2024 8:30 AM EDT Infusion Infusion Therapy Services [facility] [address], [address]th [place] [address] Hermelinda Barajas MD [address] [place] [address] [email or web address] Patria Luevano, BRIELLE [address] [place] [address] [email or web address] 11/16/2024 9:00 AM EDT Office Visit [facility] Department of Orthopaedics 60 [place] [address] Andrew Lima MD [address] [place] [address] Department [place] [address] [email or web address] 01/18/2025 7:35 AM [facility] Hospital Encounter [facility] EKG 70 [place] [address] Guanakito Gallardo MD [address] [place] [address] [place] [address] [email or web address] 01/18/2025 8:30 AM EST Appointment [facility] Radiology [address] [place] [address] Odalis Jimenez PA-C 70 [facility] 5th [place] [address] [email or web address] 02/01/2025 8:40 AM EST Office Visit [facility] Otolaryngology 45 [facility]2 [place] [address] Demetrio Armstrong MD 45 [place] [phone] [email or web address] 02/25/2025 9:30 AM EST Telemedicine [facility] Cardiovascular Clinic [address] [place] [address] Guanakito Gallardo MD [address] [place] [phone] [email or web address] 07/04/2025 10:00 AM EDT Telemedicine [facility] Clinic [address] [place] [address] Thiago Bean MD [address] [place] [address] [email or web address] 10/18/2025 7:05 AM EDT Hospital Encounter [facility] EKG 70 [place] [address] Guanakito Gallardo MD [address] [place] [address] [place] [address] [email or web address] Arrived documented as of this encounter Visit Diagnoses Not on filedocumented in this encounter Additional Health Concerns Infection Onset Date Last Indicated Resolved Time COVID-19 04/06/2023 04/06/2023 04/27/2023 1:21 AM EST CoV-Risk 07/17/2024 07/17/2024 07/28/2024 1:21 AM EDT documented as of this encounter Care Teams Social Work Lecturer Relationship Specialty Start Date End Date Aubrey Taylor MD [address] [place] [address] PCP - General Internal Medicine 08/13/22 09/14/22 Marilynn Daly, CIGAR INSPECTOR PCP - General Nurse Practitioner 09/15/22 10/12/22 Grecia Bonilla MD [address] [place] [address] [place] [address] PCP - General Internal Medicine 10/13/22 Indigo Du, [facility] [address] [place] [address] [email or web address] [employer] Oncology 07/27/22 Hermelinda Barajas MD [address] [place] [address] [email or web address] Medical Oncology 11/29/22 Cindi Shell CNP [address] [place] [address] Fina@ [facility] Gerontology 11/29/22 Zuri Ha RN [address] [place] [address] [email or web address] Primary Infusion Nurse 01/10/24 05/14/24 Carlos Alberto King MD, [place] [address] [place] [address] Jaelyn@[email or web address] Hospice and Palliative Care 04/05/24 Patria Luevano RN [address] [place] [address] [email or web address] Primary Infusion Nurse 05/15/24 Jennie Ferreira, BRIELLE [address] [place] [phone] [email or web address] Associate Infusion Nurse 10/02/24 documented as of this encounter Additional Source Comments The information contained in this document represents components of the legal health record. It is not the complete legal health record.[facility]
[2024-11-06 13:28] LABS: Hemoglobin A1C 139.7238 umol/L; Total Hemoglobin (HGBA1C) 2728.2513 umol/L
[2024-11-06 13:52] LABS: Alanine Aminotransferase 72 U/L (0-40); Albumin Level 4.6 g/dL (3.5-5.0); Alkaline Phosphatase 75 U/L (39-117); Anion Gap 15 (12-20); Aspartate Amino Transferase 31 U/L (5-37); Blood Urea Nitrogen 19 mg/dL (9-16); Calcium 9.6 mg/dL (8.4-10.2); Carbon Dioxide 26 mmol/L (22-29); Chloride 104 mmol/L (96-108); Cholesterol 206 mg/dL (<200); Estimated Glomerular Filt Rate > 60; HDL Cholesterol 41 mg/dL (>40); Potassium 3.9 mmol/L (3.3-5.1); Sodium 141 mmol/L (135-145); Total Protein 8.0 g/dL (6.5-8.0); Triglycerides 155 mg/dL (<150)
[2024-11-06 14:03] LABS: Parathyroid Hormone Intact 71.4 pg/mL (8.7-77.1)
[2024-11-06 15:05] LABS: Microalbum/Creatinine Ratio Ur 4.2 ug/mg cr (<30)
== END 2024-11-06 10:15 | disposition home or self-care (01) ==
LOC: HO.10HDL 10:14
PROVIDERS: Visit Provider Internal Medicine
DX: Z12.5 Encounter for screening for malignant neoplasm of prostate (principal); C34.90 Malignant neoplasm of unspecified part of unspecified bronchus or lung; E11.9 Type 2 diabetes mellitus without complications; E78.00 Pure hypercholesterolemia, unspecified; E83.52 Hypercalcemia; I10 Essential (primary) hypertension; N40.0 Benign prostatic hyperplasia without lower urinary tract symptoms
CPT/HCPCS: 36415; 80053; 80061; 82043; 82306; 82570; 83036; 83970; 84153

== ENCOUNTER 2024-11-15 06:45 | Emergency (ER) | payer MEDICARE, MEDICAID, SELFPAY ==
--- OUTSIDE RECORDS SUMMARY | 2024-11-09 09:07 | XMS_ITS | Encounter Summary ---
Author Organization [facility] Address [address] [facility] [address] [place] [address] Phone Care Team Providers Care Mexican Food Maker Name Role Phone Indigo DuSW Unavailable [phone] Grecia Bonilla MD Primary Care Provider Hermelinda Barajas MD Unavailable [phone] Cindi Shell [facility] Unavailable Carlos Alberto King MD, [place] Unavailable [phone] Patria Luevano RN Unavailable [email or web address] [email or web address] Jennie Ferreira RN Unavailable [email or web address] Reason for Referral * MRI/CAT Scan - Closed Specialty Diagnoses / Procedures Referred By Sarah moser Referred To Contact Radiology Diagnoses Primary adenocarcinoma of lung, unspecified laterality Procedures CT Abdomen/Pelvis Hermelinda Barajas MD [address] [place] [address] Andrew Shen [address] [place] [address] Phone: tel: fax: mailto:[email or web address] Referral ID Status Reason Start Date Expiration Date Visits Re quested Visits Authorized [id number] Closed 09/10/2024 09/10/2025 1 1 * MRI/CAT Scan - Closed Specialty Diagnoses / Procedures Referred By Sarah moser Referred To Contact Radiology Diagnoses Primary adenocarcinoma of lung, unspecified laterality Procedures CT Chest Hermelinda Barajas MD [address] [place] [address] Phone: tel: fax: mailto:[email or web address] Referral ID Status Reason Start Date Expiration Date Visits Re quested Visits Authorized [id number] Closed 09/10/2024 09/10/2025 1 1 Reason for Visit * MRI/CAT Scan - Closed Specialty Diagnoses / Procedures Referred By Sarah moser Referred To Contact Radiology Diagnoses Primary adenocarcinoma of lung, unspecified laterality Procedures CT Abdomen/Pelvis Hermelinda Barajas MD [address] [place] [address] Phone: tel: fax: mailto:[email or web address] Referral ID Status Reason Start Date Expiration Date Visits Re quested Visits Authorized [id number] Closed 09/10/2024 09/10/2025 1 1 Encounter Details Date Type Department Care Team (Late st Contact Info) Description 11/09/2024 9:07 AM EDT - 11/09/2024 11:59 PM EDT Hospital Encounter [facility], Ct Scan - [address] [address] Hermelinda Barajas MD [address] [place] [id number] [email or web address] Discharge Disposition: Home or Self Care Social History Tobacco Use Types Packs/Day Years Used Date Smoking Tobacco: Former Cigarettes 1 20 2 - 2021 Smokeless Tobacco: Never Alcohol Use [...] PM EDT documented as of this encounter Medications at Time of Discharge acetaminophen (TYLENOL) 500 MG tablet TAKE 1 TABLET BY MOUTH TWICE A DAY 60 tablet 3 5 atorvastatin (LIPITOR) 20 MG tablet Take 20 mg by mouth daily. blood pressure test kit-large Kit pls take BP daily and discuss with PCP 1 kit 3 dexAMETHasone (DECADRON) 4 MG tablet Take 1 tablet (4 mg) twice daily the day before, day of and day after chemotherapy only. 30 tablet 1 5 dilTIAZem (CARDIZEM CD) 180 MG 24 hr capsule Take 180 mg by mouth daily. famotidine (PEPCID) 20 MG tablet TAKE 2 TABLETS BY MOUTH TWICE A DAY STOP OMEPRAZOLE 360 tablet 5 folic acid (FOLVITE) 1 MG tablet Take 1 tablet (1,000 mcg total) by mouth daily. 90 tablet 1 5 GAS RELIEF, SIMETHICONE, 80 mg chewable tablet CHEW 1 TABLET BY MOUTH EVERY 6 HOURS NEEDED. 60 tablet 2 4 hydrocortisone 2.5 % cream Apply topically 2 (two) times a day. 20 g 3 4 insulin aspart U-100 (NOVOLOG) 100 unit/mL (3 mL) injection pen INJECT 4 TO 12 UNITS SUBCUTANEOUSLY 3 TIMES A DAY BEFORE MEALS PER SLIDING SCALE 5 insulin glargine 100 unit/mL (3 mL) InPn injection penIndications:Type 2 diabetes mellitus with hyperglycemia, with long-term current use of insulin Inject 10 Units under the skin daily. 15 mL 3 5 insulin pen needles, disposable, 32 gauge x NdleIndications:Typ e 2 diabetes mellitus with hyperglycemia, with long-term current use of insulin,Primary adenocarcinoma of lung, unspecified laterality,Vitamin D deficiency, unspecified,Anemia, unspecified type 1 each by Miscellaneous route 4 (four) times a day before meals and nightly. 100 each 5 5 ketoconazole 2 % cream APPLY TOPICALLY DAILY. TO SOLES OF FEET AND IN BETWEEN TOES, APPLY THIS BEFORE ANY MOISTURIZING CREAMS 60 g 11 4 losartan (COZAAR) 50 MG tablet Take 100 mg by mouth daily. magnesium oxide (MAG-OX) 400 mg (241.3 mg elemental) tablet Take 1 tablet (400 mg total) by mouth daily. 90 tablet 1 5 metFORMIN (GLUCOPHAGE) 1000 MG tablet Take 1,000 mg by mouth 2 (two) times a day with meals. ondansetron (ZOFRAN) 8 MG tablet Take 1 tablet (8 mg total) by mouth every 8 (eight) hours as needed for nausea. 30 tablet 3 4 prochlorperazine (COMPAZINE) 10 MG tablet TAKE 1 TABLET BY MOUTH EVERY 6 HOURS NEEDED *SEDATING, DO NOT DRIVE* 30 tablet 5 rivaroxaban (XARELTO) 20 mg TabIndications:Paro xysmal atrial fibrillation Take 1 tablet (20 mg total) by mouth daily. 90 tablet 1 5 urea 40 % Crea Apply 1 Application topically daily. To scaly skin on feet 198.4 g 11 5 documented as of this encounter Plan of Treatment Upcoming Encounters Date Type Department Care Team (Late Contact Info) Description 10/18/2024 Procedure Pass [facility] Radiology [address] [place] [address] 10/23/2024 Procedure Pass [facility] EKG [address] [place] [address] 10/23/2024 Procedure Pass [facility] EKG [address] [place] [address] 11/13/2024 Procedure Pass [address] [address] 11/13/2024 Procedure Pass [address] [address] 11/16/2024 8:30 AM EDT Appointment [facility] MSK Diagnostic X-ray Imaging, [place] [address] [place] [address] Andrew Lima MD [address] [place] [address] Department [place] [address] [email or web address] 11/16/2024 9:00 AM EDT Office Visit [facility] Department of Orthopaedics [address] [place] [address] Andrew Lima MD [address] [place] [address] Department [place] [address] [email or web address] 11/22/2024 1:00 PM EDT Office Visit [facility] Endocrine, Diabetes, and Hypertension [address] [facility] 2nd [place] [address] Svetlana Lucero, PharmD [address] [place] [address] [email or web address] 11/26/2024 1:00 PM EDT Social Work Social Work Department, [facility] [address] [facility] 4th [place] [address] Hermelinda Barajas MD [address] [facility] [address] [place] [address] [email or web address] Indigo Du, GREASE MACHINE WORKER [address] [place] [address] [email or web address] 12/04/2024 7:30 AM EDT Blood Draw Laboratory Services, [address], 2nd Floor [place], [place] Hermelinda Barajas MD [address] [facility] [address] [place] [address] [email or web address] 12/04/2024 8:30 AM EDT Office Visit [facility], [address], 9th [place] [address] Cindi Shell, METAL RIVETING MACHINE OPERATOR [address] [place] [address] Benedict [email or web address] Hermelinda Barajas MD [address] [place] [address] 12[address] [place] [address] [email or web address]@[email or web address] 12/04/2024 9:30 AM EDT Infusion Infusion Therapy Services [place] [address], [facility] [address] [facility], 9th [place] [address] Cindi Shell, METAL RIVETING MACHINE OPERATOR [address] [place] [address] Benedict [email or web address] Patria Luevano, BRIELLE [address] [place] [address] [email or web address] 12/25/2024 6:30 AM EDT Blood Draw Laboratory Services, [address], 2nd [place] [address] Cindi Shell CNP [address] [place] [address] Benedict east@[facility] 12/25/2024 7:30 AM EDT Office Visit [facility], [address], 9th [place] [address] Cindi Shell CNP [address] [place] [address] Benedict east@[facility] 12/25/2024 8:30 AM EDT Infusion [facility] [place] [address] [place] [address], 9th [place] [address] Cindi Shell CNP [address] [place] [address] Benedict east@[facility] 01/11/2025 11:45 AM EST Appointment [facility], Ct Scan [address] [address] Hermelinda Barajas MD [address] [facility] [address] [place] [address] [email or web address] 01/15/2025 7:10 AM EST Blood Draw Laboratory Services, [facility] [address] [facility], 2nd [place] [address] Cindi Shell CNP [address] [place] [address] Benedict east@[facility] 01/15/2025 8:00 AM EST Office Visit [facility], [facility] [address] [facility], 9th [place] [address] Hermelinda Barajas MD [address] [place] [address] 12[address] [place] [address] [email or web address]@[email or web address] 01/15/2025 9:00 AM EST Infusion [facility] [address] [facility], 9th [place] [address] Cindi Shell CNP [address] [place] [address] Benedict east@[facility] 01/18/2025 7:35 AM EST Hospital Encounter [facility] EKG [address] [place] [address] Guanakito Gallardo MD [address] [facility] [place] [address] Arrived 01/18/2025 8:30 AM EST Appointment [facility] [address] [place] [address] Odalis Jimenez PA-C [address] [facility] 5th [place] [address] [email or web address] 02/01/2025 8:40 AM EST Office Visit [facility] Otolaryngology [address] [facility] ASB2-2 [place] [address] Demetrio Armstrong MD [address] [place] [phone] [email or web address] 02/25/2025 9:30 AM EST Telemedicine [facility] Cardiovascular Clinic [address] [place] [address] Guanakito Gallardo MD [address] [place] [address] [email or web address] 07/04/2025 10:00 AM EDT Telemedicine [facility] [address] [place] [address] Thigao Bean MD [address] [place] [address] [email or web address] 10/18/2025 7:05 AM EDT Hospital Encounter [facility] EKG [address] [place] [address] Guanakito Gallardo MD [address] [place] [address] [email or web address] Arrived documented as of this encounter Procedures Procedure Name Priority Date/Time Associated Diagnosis Comments CT CHEST WITH CONTRAST Routine 11/09/2024 9:23 AM EDT Primary adenocarcinoma of lung, unspecified laterality CT ABDOMEN/PELVIS WITH CONTRAST Routine 11/09/2024 9:23 AM EDT Primary adenocarcinoma of lung, unspecified laterality documented in this encounter Results * CT ABDOMEN/PELVIS WITH CONTRAST (11/09/2024 9:23 AM EDT) Anatomical Region Laterality Modality Abdomen, Pelvis Computed Tomogra phy 11/09/2024 3:35 PM EDT Impressions 11/09/2024 3:45 PM EDT 1. No new or progressive disease in the abdomen or pelvis. 2. Stable liver hypodensities and mildly enlarged small pelvic lymph nodes. Narrative 11/09/2024 3:[address] ABDOMEN/PELVIS WITH CONTRAST Referring clinician's provided indication for this examination in [facility]: * Non- small cell lung cancer, metastatic, assess treatment response TECHNIQUE: Multidetector-row CT of the abdomen and pelvis was performed after administration of intravenous contrast using tailored dose modulation techniques. Images were reconstructed in the axial, coronal, and sagittal planes. COMPARISON: CT ABDOMEN/PELVIS WITH CONTRAST ; CT ABDOMEN/PELVIS WITH CONTRAST ; NM PET WHOLE BODY OUTSIDE (NO INTERPRETATION) ; CT ABDOMEN/PELVIS WITH CONTRAST FINDINGS: Lower Chest: CT chest from the same day is reported separately. Liver: Reduced attenuation consistent with fatty liver. Unchanged poorly defined 29 mm medial segment 6 hypodensity (2:20). Additional subcentimeter hypodense focus in segment 4 is stable (2:17). No new or enlarging liver lesions. Biliary: No biliary ductal dilatation. Spleen: No splenomegaly or focal lesions. Pancreas: No masses or ductal dilatation. Adrenal Glands: Stable adrenal thickening. No suspicious nodules. Kidneys/Ureters: No solid masses, stones, or hydronephrosis. Bowel: No distention or wall thickening. Normal appendix. Small hiatal hernia. Peritoneum/Retroperitoneum: No masses, pneumoperitoneum, or fluid. Lymph Nodes: No significant change in 12 mm distal right external iliac lymph node (3:3-4) and 11 mm distal left external iliac lymph node (3:395) (. No new or enlarging lymph nodes. Pelvic Organs/Bladder: No mass. Vessels: Similar 20 mm ectatic infrarenal aorta. Moderate atherosclerosis. Bones/Soft Tissues: No destructive osseous lesions. Small fat-containing periumbilical hernia. Procedure Note Demetrio Mesa MD - 11/09/2024 CT ABDOMEN/PELVIS WITH CONTRAST Referring clinician's provided indication for this examination in [facility]: *Non- small cell lung cancer, metastatic, assess treatment response TECHNIQUE: Multidetector-row CT of the abdomen and pelvis was performedafter administration of intravenous contrast using tailored dosemodulation techniques. Images were reconstructed in the axial, coronal,and sagittal planes. COMPARISON: CT ABDOMEN/PELVIS WITH CONTRAST ; CT ABDOMEN/PELVISWITH CONTRAST ; NM PET WHOLE BODY OUTSIDE (NO INTERPRETATION); CT ABDOMEN/PELVIS WITH CONTRAST FINDINGS: Lower Chest: CT chest from the same day is reported separately. Liver: Reduced attenuation consistent with fatty liver. Unchanged poorlydefined 29 mm medial segment 6 hypodensity (2:20). Additionalsubcentimeter hypodense focus in segment 4 is stable (2:17). No new orenlarging liver lesions. Biliary: No biliary ductal dilatation. Spleen: No splenomegaly or focal lesions. Pancreas: No masses or ductal dilatation. Adrenal Glands: Stable adrenal thickening. No suspicious nodules. Kidneys/Ureters: No solid masses, stones, or hydronephrosis. Bowel: No distention or wall thickening. Normal appendix. Small hiatalhernia. Peritoneum/Retroperitoneum: No masses, pneumoperitoneum, or fluid. Lymph Nodes: No significant change in 12 mm distal right external iliaclymph node (3:3-4) and 11 mm distal left external iliac lymph node (3:395)(. No new or enlarging lymph nodes. Pelvic Organs/Bladder: No mass. Vessels: Similar 20 mm ectatic infrarenal aorta. Moderateatherosclerosis. Bones/Soft Tissues: No destructive osseous lesions. Small fat- containingperiumbilical hernia. IMPRESSION: 1. No new or progressive disease in the abdomen or pelvis. 2. Stable liver hypodensities and mildly enlarged small pelvic lymphnodes. us Hermelinda Barajas MD IMG CT ABD/PELVIS Final Result * CT CHEST WITH CONTRAST (11/09/2024 9:23 AM EDT) Anatomical Region Laterality Modality Chest Computed Tomogra phy 11/09/2024 3:20 PM EDT Impressions 11/09/2024 3:45 PM EDT 1. Slight interval decrease in size of left lower lobe nodule. 2. New 3 mm right upper lobe nodule, indeterminate. Attention on follow-up recommended. 3. Other scattered small pulmonary nodules are stable. 4. Stable mediastinal/hilar lymph nodes and residual mediastinal soft tissue thickening. Narrative 11/09/2024 3:[address] CHEST WITH CONTRAST Referring clinician's provided indication for this examination in [facility]: * Non- small cell lung cancer, metastatic, assess treatment response TECHNIQUE: Multidetector CT of the chest was performed with intravenous contrast using tailored dose modulation techniques. COMPARISON: CT CHEST WITH CONTRAST ; CT CHEST WITH CONTRAST ; CT CHEST WITH CONTRAST ; CT CHEST WITH CONTRAST ; CT CHEST PULMONARY ANGIOGRAM (ACUTE) FINDINGS: Devices/Tubes/Lines: Atrial appendage clip device Lungs: Stable volume loss and consolidative opacity in the right lower lobe. No new consolidation. Scattered tracheobronchial secretions. Slightly decreased 12 x 9 mm left lower lobe nodule (5:245), previously 13 x 11 mm Stable 3 mm subpleural right middle lobe nodule (5:258) and 4 mm left upper lobe groundglass nodule (5:114) New 3 mm right upper lobe nodule (5:208). Pleura: No pleural effusion or pneumothorax. Mediastinum: Similar ill-defined soft tissue thickening at the level the luh and left mainstem bronchus (for instance 5:191). No thyroid nodules. Heart and pericardium are normal. No coronary calcification. Lymph Nodes: Stable 11 mm aorticopulmonary window node (5:156). Stable 11 mm right hilar lymph node (5:192). No new or enlarging lymph nodes. Upper Abdomen: Please see concurrent abdominal CT for abdominal findings. Chest Wall: No chest wall mass. Bones: No suspicious lytic or blastic lesions. Procedure Note Demetrio Mesa MD - 11/09/2024 CT CHEST WITH CONTRAST Referring clinician's provided indication for this examination in [facility]: *Non- small cell lung cancer, metastatic, assess treatment response TECHNIQUE: Multidetector CT of the chest was performed with intravenouscontrast using tailored dose modulation techniques. COMPARISON: CT CHEST WITH CONTRAST ; CT CHEST WITH [id number]; CT CHEST WITH CONTRAST ; CT CHEST WITH [id number]; CT CHEST PULMONARY ANGIOGRAM (ACUTE) FINDINGS: Devices/Tubes/Lines: Atrial appendage clip device Lungs: Stable volume loss and consolidative opacity in the right lowerlobe. No new consolidation. Scattered tracheobronchial secretions. Slightly decreased 12 x 9 mm left lower lobe nodule (5:245), previously 13x 11 mm Stable 3 mm subpleural right middle lobe nodule (5:258) and 4 mm leftupper lobe groundglass nodule (5:114) New 3 mm right upper lobe nodule (5:208). Pleura: No pleural effusion or pneumothorax. Mediastinum: Similar ill-defined soft tissue thickening at the level thecarina and left mainstem bronchus (for instance 5:191). No thyroidnodules. Heart and pericardium are normal. No coronary calcification. Lymph Nodes: Stable 11 mm aorticopulmonary window node (5:156). Stable 11mm right hilar lymph node (5:192). No new or enlarging lymph nodes. Upper Abdomen: Please see concurrent abdominal CT for abdominalfindings. Chest Wall: No chest wall mass. Bones: No suspicious lytic or blastic lesions. IMPRESSION: 1. Slight interval decrease in size of left lower lobe nodule. 2. New 3 mm right upper lobe nodule, indeterminate. Attention onfollow-up recommended. 3. Other scattered small pulmonary nodules are stable. 4. Stable mediastinal/hilar lymph nodes and residual mediastinal softtissue thickening. Hermelinda Barajas MD IM CT CHEST Final Result documented in this encounter Visit Diagnoses Diagnosis Primary adenocarcinoma of lung, unspecified laterality Paroxysmal atrial fibrillation Atrial fibrillation Paroxysmal atrial fibrillation Atrial fibrillation documented in this encounter Administered Medications Inactive Administered Medications - up to 3 most recent administrations Medication Order MAR Action Action Date Dose Rate Site iohexoL (OMNIPAQUE-350) 350 mg iodine/mL solution 100 mL 100 mL, Intravenous, Once as needed, pre procedure/treatment, Starting on Tue11/09/24 at 0908, For 1 dose, Procedural Contrast/Med Active Now, Each mL contains 755 mg of iohexol equivalent to 350 mg of organic iodine. Given 11/09/2024 9:24 AM EDT 100 mL documented in this encounter Care Teams Mexican Food Maker Relationship Specialty Start Date End Date Grecia Bonilla MD [address] [place] [address] [place] [address] PCP - General Internal Medicine 10/13/22 Indigo Du, [facility] [address] [place] [address] [email or web address] Corporate [email or web address] 07/27/22 Hermelinda Barajas MD [address] [place] [address] 12[address] [place] [address] [email or web address] Oncology 11/29/22 Cindi Shell CNP [address] [place] [address] [place] [address] [email or web address] Gerontology 11/29/22 Carlos Alberto King MD, [place] [address] [place] [address] Department of Psychosocial Oncology and Palliative Care, [place] [address] [email or web address] Hospice and Palliative Care 04/05/24 Patria Luevano, BRIELLE [address] [place] [address] [email or web address] Primary Infusion Nurse 05/15/24 Jennie Ferreira RN [address] [place] [address] [email or web address] Associate Infusion Nurse 10/02/24 documented as of this encounter Additional Source Comments The information contained in this document represents components of the legal health record. It is not the complete legal health record.[facility]
--- OUTSIDE RECORDS SUMMARY | 2024-11-13 07:30 | XMS_ITS | Encounter Summary ---
Author Organization [facility] Address [address] [facility] [address] [place] [address] Phone Care Team Providers Care Mushroom Picker Name Role Phone Indigo DuSW Unavailable [phone] Grecia Bonilla MD Primary Care Provider Hermelinda Barajas MD Unavailable [phone] Cindi Shell [facility] Unavailable Carlos Alberto King MD, [place] Unavailable [phone] Patria Luevano RN Unavailable TOBIAS [email or web address] Jennie Ferreira RN Unavailable ALISON@ [facility] Reason for Referral * MRI/CAT Scan - Authorized Specialty Diagnoses / Procedures Referred By Sarah t Referred To Contact Radiology Diagnoses Malignant neoplasm of lung, unspecified laterality, unspecified part of lung Procedures CT Abdomen/Pelvis Hermelinda Barajas MD [facility] Wendy Shen [address] [place] [address] Phone: tel: fax: mailto:[email or web address] Referral ID Status Reason Start Date Expiration Date V isits Requested Visits Authorized [id number] Authorized 11/13/2024 11/13/2025 1 1 * MRI/CAT Scan - Authorized Specialty Diagnoses / Procedures Referred By Contac t Referred To Contact Radiology Diagnoses Malignant neoplasm of lung, unspecified laterality, unspecified part of lung Procedures CT Chest Hermelinda Barajas MD [address] [place] [address] Phone: tel: fax: mailto:[email or web address]@[email or web address] Referral ID Status Reason Start Date Expiration Date V isits Requested Visits Authorized [id number] Authorized 11/13/2024 11/13/2025 1 1 Reason for Visit * Reason Comments Lung Cancer Encounter Details Date Type Department Care Team (Late st Contact Info) Description 11/13/2024 7:30 AM EDT Office Visit [facility], [facility] [place] [address] [facility], [address] [place] [address] Hermelinda Barajas MD [address] [place] [address] [email or web address] Malignant neoplasm of lung, unspecified laterality, unspecified part of lung (Primary Dx); Encounter for long-term (current) use of medications Social History Tobacco Use Types Packs/Day Years [...] Sign Reading Time Taken Comments Blood Pressure 130/66 11/13/2024 7:16 AM EDT Pulse 97 11/13/2024 7:16 AM EDT Temperature 37 C (98.6 F) 11/13/2024 7:17 AM EDT Respiratory Rate 18 11/13/2024 7:16 AM EDT Oxygen Saturation 97% 11/13/2024 7:16 AM EDT Inhaled Oxygen Concentration - - Weight 128.7 kg (283 lb 11.7 oz) 11/13/2024 7:16 AM EDT Height - - Body Mass Index 34.54 11/01/2024 10:30 AM EDT documented in this encounter Plan of Treatment Upcoming Encounters Date Type Department Care Team (Late st Contact Info) Description 10/18/2024 Procedure Pass [facility] 70 [place] [address] 10/23/2024 Procedure Pass [facility] EKG 70 [place] [address] 10/23/2024 Procedure Pass [facility] EKG 70 [place] [address] 11/13/2024 Procedure Pass [address] [address] 11/13/2024 Procedure Pass [address] [address] 11/16/2024 8:30 AM EDT Appointment [facility] MSK Diagnostic X-ray Imaging, [place] [address] [place] [address] Andrew Lima MD [address] [place] [address] Department [place] [address] [email or web address] 11/16/2024 9:00 AM EDT Office Visit [facility] of Orthopaedics 60 [place] [address] Andrew Lima MD [address] [place] [address] Department of Orthopedic Surgery [place], [place] [email or web address] 11/22/2024 1:00 PM EDT Office Visit [facility] Endocrine, Diabetes, and Hypertension [address] [phone] Svetlana Lucero, PharmD 75 [place] [address] [email or web address] 11/26/2024 1:00 PM EDT Social Work Social Work Department, [facility] [address] [address] Hermelinda Barajas MD [address] [place] [address] [email or web address] Indigo Du, RAG CUTTING MACHINE OPERATOR [address] [place] [address] [email or web address] 12/04/2024 7:30 AM EDT Blood Draw Laboratory Services, [facility] [address] Hermelinda Barajas MD [address] [address] Pedro@[facility] 12/04/2024 8:30 AM EDT Office Visit [facility], [facility] 450 [facility], 9th [place] [address] Cindi Shell CNP 450 [place] [address] Benedict east@[facility] Hermelinda Barajas MD [address] [place] [address] 12[address] [place] [address] Pedro@[facility] 12/04/2024 9:30 AM EDT Infusion Infusion Therapy Services [facility] 9, [address], 9th [place] [address] Cindi Shell CNP [address] [place] [address] Benedict east@[facility] Patria Luevano, BRIELLE [address] [place] [address] [email or web address]@[facility] 12/25/2024 6:30 AM EDT Blood Draw Laboratory Services, [address], 2nd [place] [address] Cindi Shell CNP [address] [place] [address] Benedict east@[facility] 12/25/2024 7:30 AM EDT Office Visit [facility], [facility] 450 [facility], 9th [place] [address] Cinid Shell CNP 450 [place] [address] Benedict east@[facility] 12/25/2024 8:30 AM EDT Infusion Infusion Therapy Services [facility] 9, [address], 9th [place] [address] Cindi Shell CNP 450 [place] [address] Benedict east@[facility] 01/11/2025 11:45 AM EST Appointment [facility], [address] [address] Hermelinda Barajas MD [address] [place] [address] 1240 [place] [address] Pedro@[facility] 01/15/2025 7:10 AM EST Blood Draw Laboratory Services, [address], 2nd [place] [address] Cindi Shell CNP 450 [place] [address] Benedict east@[facility] 01/15/2025 8:00 AM EST Office Visit [facility], [address], 9th [place] [address] Hermelinda Barajas MD 450 [facility] [address] [place] [address] Pedro@[facility] 01/15/2025 9:00 AM EST Infusion Infusion Therapy Services [place] [address], [address], 9th [place] [address] Cindi Shell CNP 450 [place] [address] Benedict [email or web address] 01/18/2025 7:35 AM EST Hospital Encounter [facility] EKG 70 [place] [address] Guanakito Gallardo MD [address] [place] [address] [place] [address] [facility] 01/18/2025 8:30 AM EST Appointment [facility] 70 [place] [address] Odalis Jimenez PA-C 70 [facility] 5th [place] [address] [email or web address] 02/01/2025 8:40 AM EST Office Visit [facility] Otolaryngology 45 [facility] ASB2-2 [place] [address] Demetrio Armstrong MD 45 [place] [phone] [email or web address] 02/25/2025 9:30 AM EST Telemedicine [facility] 70 [place] [address] Guanakito Gallardo MD [address] [place] [address] [place] [address] [email or web address] 07/04/2025 10:00 AM EDT Telemedicine [facility] 70 [place] [address] Thiago Bean MD [address] [place] [address] [email or web address] 10/18/2025 7:05 AM EDT Hospital Encounter [facility] EKG [address] [place] [address] Guanakito Gallardo MD [address] [place] [address] Card[place] [address] Arrived Scheduled Orders Name Type Priority Associated Diagnoses Orde r Schedule CBC and differential Lab Routine Malignant neoplasm of lung, unspecified laterality, unspecified part of lung Expected: 11/13/2024, Expires: 11/13/2025 Comprehensive metabolic panel Lab Routine Malignant neoplasm of lung, unspecified laterality, unspecified part of lung Expected: 11/13/2024, Expires: 11/13/2025 Free T4 Lab Routine Malignant neoplasm of lung, unspecified laterality, unspecified part of lung Encounter for long-term (current) use of medications Expected: 11/13/2024, Expires: 11/13/2025 TSH Lab Routine Malignant neoplasm of lung, unspecified laterality, unspecified part of lung Encounter for long-term (current) use of medications Expected: 11/13/2024, Expires: 11/13/2025 Magnesium Lab Routine Malignant neoplasm of lung, unspecified laterality, unspecified part of lung Expected: 11/13/2024, Expires: 11/13/2025 CBC and differential Lab Routine Malignant neoplasm of lung, unspecified laterality, unspecified part of lung Expected: 11/13/2024, Expires: 11/13/2025 Comprehensive metabolic panel Lab Routine Malignant neoplasm of lung, unspecified laterality, unspecified part of lung Expected: 11/13/2024, Expires: 11/13/2025 Free T4 Lab Routine Malignant neoplasm of lung, unspecified laterality, unspecified part of lung Encounter for long-term (current) use of medications Expected: 11/13/2024, Expires: 11/13/2025 TSH Lab Routine Malignant neoplasm of lung, unspecified laterality, unspecified part of lung Encounter for long-term (current) use of medications Expected: 11/13/2024, Expires: 11/13/2025 Magnesium Lab Routine Malignant neoplasm of lung, unspecified laterality, unspecified part of lung Expected: 11/13/2024, Expires: 11/13/2025 CBC and differential Lab Routine Malignant neoplasm of lung, unspecified laterality, unspecified part of lung Expected: 11/13/2024, Expires: 11/13/2025 Comprehensive metabolic panel Lab Routine Malignant neoplasm of lung, unspecified laterality, unspecified part of lung Expected: 11/13/2024, Expires: 11/13/2025 Free T4 Lab Routine Malignant neoplasm of lung, unspecified laterality, unspecified part of lung Encounter for long-term (current) use of medications Expected: 11/13/2024, Expires: 11/13/2025 TSH Lab Routine Malignant neoplasm of lung, unspecified laterality, unspecified part of lung Encounter for long-term (current) use of medications Expected: 11/13/2024, Expires: 11/13/2025 Magnesium Lab Routine Malignant neoplasm of lung, unspecified laterality, unspecified part of lung Expected: 11/13/2024, Expires: 11/13/2025 CT Chest Imaging Routine Malignant neoplasm of lung, unspecified laterality, unspecified part of lung Expected: 01/15/2025, Expires: 02/12/2025 CT Abdomen/Pelvis Imaging Routine Malignant neoplasm of lung, unspecified laterality, unspecified part of lung Expected: 01/15/2025, Expires: 02/12/2025 documented as of this encounter Visit Diagnoses Diagnosis Malignant neoplasm of lung, unspecified laterality, unspecified part of lung- Primary Encounter for long-term (current) use of medications Encounter for long-term (current) use of other medications Paroxysmal atrial fibrillation Atrial fibrillation Paroxysmal atrial fibrillation Atrial fibrillation documented in this encounter Care Teams Mushroom Picker Relationship Specialty Start Date End Date Grecia Bonilla MD [address] [place] [address] [place] [address] PCP - General Internal Medicine 10/13/22 Indigo Du, RAG CUTTING MACHINE OPERATOR [address] [place] [address] [email or web address] 07/27/22 Hermelinda Barajas MD [address] [place] [address] 1240 [place] [address] Pedro@[facility] Medical Oncology 11/29/22 Cindi Shell CNP [address] [place] [address] [email or web address] Gerontology 11/29/22 Carlos Alberto King MD, [place] [address] [place] [address] Department of Psychosocial Oncology and Palliative Care, [place] [address] Jaelyn@[facility] Hospice and Palliative Care 04/05/24 Patria Luevano, BRIELLE [address] [place] [address] [email or web address]@[email or web address] Primary Infusion Nurse 05/15/24 Jennie Ferreira, BRIELLE [address] [place] [address] [email or web address] Associate Infusion Nurse 10/02/24 documented as of this encounter Additional Source Comments The information contained in this document represents components of the legal health record. It is not the complete legal health record[facility]
--- OUTSIDE RECORDS SUMMARY | 2024-11-13 08:30 | XMS_ITS | Encounter Summary ---
Author Organization [facility] Address [address] [place] [address] [place] [address] Phone Care Team Providers Care Order Editor Name Role Phone Indigo DuSW Unavailable [phone] Grecia Bonilla MD Primary Care Provider Hermelinda Barajas MD Unavailable [phone] Cindi Shell [facility] Unavailable Carlos Alberto King MD, [place] Unavailable Patria Luevano RN Unavailable TOBIAS [email or web address] Jennie Ferreira RN Unavailable ALISON@ [facility] Reason for Visit * Reason Comments Chemotherapy Encounter Details Date Type Department Care Team (Late st Contact Info) Description 11/13/2024 8:30 AM EDT Infusion Infusion Therapy Services [facility] [address], 9th [place] [address] Hermelinda Barajas MD [address] [place] [address] 1240 [place] [address] [email or web address]@[email or web address] Patria Luevano, BRIELLE [address] [place] [address] [email or web address] Primary adenocarcinoma of lung, unspecified laterality (Primary Dx) Social History Tobacco Use Types Packs/Day Years [...] Procedure Pass [facility] 70 [place] [address] 10/23/2024 Procedure Pass [facility] EKG 70 [place] [address] 10/23/2024 Procedure Pass [facility] EKG 70 [place] [address] 11/13/2024 Procedure Pass [facility], Ct Scan - [facility] 30 [place] [address] 11/13/2024 Procedure Pass [facility], Ct Scan - [facility] 30 [place] [address] 11/16/2024 8:30 AM EDT Appointment [facility] MSK Diagnostic X-ray Imaging, [place] [address] [place] [address] Andrew Lima MD [address] [place] [address] Department [place] [address] [email or web address] 11/16/2024 9:00 AM EDT Office Visit [facility] Department of Orthopaedics 60 [place] [address] Andrew Lima MD [address] [place] [address] Department [place] [address] [email or web address] 11/22/2024 1:00 PM EDT Office Visit [facility] Endocrine, Diabetes, and Hypertension [address] [address] Svetlana Lucero, PharmD 75 [place] [address] [email or web address] 11/26/2024 1:00 PM EDT Social Work Social Work Department, [facility] [place] [address] [address] Hermelinda Barajas MD 450 [facility] 1240 [place] [address] [email or web address] Indigo Du, TELECOMMUNICATIONS SWITCH TECHNICIAN [address] [place] [address] [email or web address] 12/04/2024 7:30 AM EDT Blood Draw Laboratory Services, [facility] [address], [address]nd [place], [place] Hermelinda Barajas MD [address] [place] [address] Pedro@[facility] 12/04/2024 8:30 AM EDT Office Visit [facility], [address], [address] [place] [address] Cindi Shell CNP [address] [place] [address] Benedict east@[facility] Hermelinda Barajas MD [address] [place] [address] Pedro@[facility] 12/04/2024 9:30 AM EDT Infusion Infusion Therapy Services [place] [address], [address], [address]th [place] [address] Cindi Shell CNP [address] [place] [address] Benedict east@[facility] Patria Luevano, BRIELLE [address] [place] [address] [email or web address]@[facility] 12/25/2024 6:30 AM EDT Blood Draw Laboratory Services, [address], [address] [place], [place] Cindi Shell CNP [address] [place] [address] Benedict east@[facility] 12/25/2024 7:30 AM EDT Office Visit [facility], [address], 9th [place] [address] Cindi Shell CNP 450 [place] [address] Benedict east@[facility] 12/25/2024 8:30 AM EDT Infusion [facility], [address], 9th [place] [address] Cindi Shell CNP [address] [place] [address] Benedict east@[facility] 01/11/2025 11:45 AM EST Appointment [facility], [address] [address] Hermelinda Barajas MD [address] [place] [address] 1240 [place] [address] [email or web address] 01/15/2025 7:10 AM EST Blood Draw Laboratory Services, [address], 2nd [place] [address] Cindi Shell CNP [address] [place] [address] Benedict east@[facility] 01/15/2025 8:00 AM EST Office Visit [facility], [address], 9th [place] [address] Hermelinda Barajas MD 450 [facility] 1240 [place] [address] Pedro@[facility] 01/15/2025 9:00 AM EST Infusion Infusion Therapy Services [address] 450 [facility], 9th [place] [address] Cindi Shell CNP 450 [place] [address] Benedict east@[facility] 01/18/2025 7:35 AM EST Hospital Encounter [facility] EKG 70 [place] [address] Guanakito Gallardo MD [address] [place] [address] [place] [address] Arrived 01/18/2025 8:30 AM EST Appointment [facility] 70 [place] [address] Odalis Jimenez PA-C 70 [facility] 5th [place] [address] [email or web address] 02/01/2025 8:40 AM EST Office Visit [facility] Otolaryngology 45 [facility] ASB2-2 [place] [address] Demetrio Armstrong MD 45 [place] [phone] [email or web address] 02/25/2025 9:30 AM EST Telemedicine [facility] 70 [place] [address] Guanakito Gallardo MD [address] [place] [address] [place] [address] 07/04/2025 10:00 AM EDT Telemedicine [facility] 70 [place] [address] Thiago Bean MD [address] [place] [address] [email or web address] 10/18/2025 7:05 AM EDT Hospital Encounter [facility] EKG 70 [place] [address] Guanakito Gallardo MD [address] [place] [address] [place] [address] [email or web address] Arrived documented as of this encounter Visit Diagnoses Diagnosis Primary adenocarcinoma of lung, unspecified laterality- Primary Paroxysmal atrial fibrillation Atrial fibrillation Paroxysmal atrial fibrillation Atrial fibrillation documented in this encounter Administered Medications Inactive Administered Medications - up to 3 most recent administrations Medication Order MAR Action Action Date Dose Rate Site pembrolizumab (KEYTRUDA) 200 mg in sodium chloride 0.9% 68 mL IVPB 200 mg, Intravenous, Administer over 30 Minutes, Once, On Tue11/13/24 at 0900, For 1 dose, Administer prior to pemetrexed. Infuse through a sterile, non-pyrogenic, low protein binding 0.2 to 5 micron inline or add-on filter.Indications:Primary adenocarcinoma of lung, unspecified laterality New Bag 11/13/2024 8:35 AM EDT 200 mg 136 mL/hr PEMEtrexed disodium (ALIMTA) 1,275 mg in sodium chloride 0.9% 160 mL IVPB 1,275 mg (rounded from 1,270 mg = 500 mg/m2 2.54 m2 Treatment Plan BSA from Recorded weight), Intravenous, Administer over 10 Minutes, at 960 mL/hr, Once, On Tue11/13/24 at 0900, For 1 dose, THIS IS A HIGH RISK HAZARDOUS AGENT. MUST USE APPROPRIATE PRECAUTIONS WHEN HANDLING AND DISPOSING OF THIS AGENT.Indications:Primary adenocarcinoma of lung, unspecified laterality New Bag 11/13/2024 9:12 AM EDT 1,275 mg 960 mL/hr documented in this encounter Care Teams Order Editor Relationship Specialty Start Date End Date Grecia Bonilla MD [address] [place] [address] [place] [address] PCP - General Internal Medicine 10/13/22 Indigo Du, [facility] 300 [place] [address] [email or web address] Crew Mess Attendant Oncology 07/27/22 Hermelinda Barajas MD [address] [place] [address] 1240 [place] [address] [email or web address]@[email or web address] Medical Oncology 11/29/22 Cindi Shell CNP [address] [place] [address] [email or web address] Gerontology 11/29/22 Carlos Alberto King MD, [place] [address] [place] [address] Department of Psychosocial Oncology and Palliative Care, [place] [phone] Jaelyn@[email or web address] Hospice and Palliative Care 04/05/24 Patria Luevano, BRIELLE [address] [place] [address] [email or web address]@[facility] Primary Infusion Nurse 05/15/24 Jennie Ferreira, BRIELLE [address] [place] [address] [email or web address] Associate Infusion Nurse 10/02/24 documented as of this encounter Additional Source Comments The information contained in this document represents components of the legal health record. It is not the complete legal health record.[facility]
[2024-11-15 06:54] VITALS: BP 130/82; PULSE 100; RESP 18; O2SAT 99; BMI 34.2
[2024-11-15 07:01] VITALS: BP 147/85; PULSE 100; RESP 16; TEMP 36.4; O2SAT 96
--- NOTE | 2024-11-15 07:17 | ED.GENADULT ---
HPI - General Adult General Chief complaint: General Medical Stated complaint: sugar elevated - 307 Time Seen by Provider: 11/15/24 07:01 Source: patient, family and old records reviewed Mode of arrival: ambulatory Limitations: no limitations History of Present Illness ED Provider: MONI HPI narrative: 59 yo male with PMH of HLD, GERD, HTN, DM, lung cancer being treated at [facility] on home O2 s/p recent chemo as well as steroid induced hyperglycemia. He is on lantus 10 units and SS but he doesn't know how to dose. He has no complaints other than his sugar was around 213 this AM he ate cereal and now it is 378. 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 MD complaint: questions about DM meds Onset (ago): day(s) (several) Severity: mild Relieving factors: none Exacerbating factors: eating Associated symptoms: denies other symptoms Treatments prior to arrival: none Related Data Home Medications ?Medication ?Instructions ?Recorded ?Confirmed atorvastatin 40 mg tablet 40 mg PO DAILY 01/26/23 diltiazem HCl 360 mg 360 mg PO DAILY 01/26/23 capsule,extended release 24 hr losartan 100 mg tablet 100 mg PO DAILY 01/26/23 losartan 100 1 tab PO DAILY 01/26/23 mg-hydrochlorothiazide 25 mg tablet metformin 1,000 mg tablet 1,000 mg PO BID 01/26/23 famotidine 20 mg tablet mg PO 07/20/24 magnesium oxide 400 mg (241.3 mg 400 mg PO DAILY 07/20/24 magnesium) tablet Previous Rx's ?Medication ?Instructions ?Recorded fluticasone furoate 27.5 2 spray intranasal DAILY #6.6 mL 06/01/23 mcg/actuation nasal spray,suspension (Flonase Sensimist) pseudoephedrine HCl 120 mg 120 mg PO Q12H 7 days #14 tabs 07/20/24 tablet,extended release (Sudafed 12 Hour) Allergies Allergy/AdvReac Type Severity Reaction Status Date / Time No Known Allergies Allergy Verified 11/15/24 06:58 Review of Systems Review of Systems: Yes all other systems are reviewed and are negative PMFSH Past Medical History Attestation statement: The following information was validated with the patient. Source: old records reviewed Medical History Allergic rhinitis Acute respiratory disease GERD (gastroesophageal reflux disease) Cluster headaches Type 2 diabetes mellitus Hypercholesterolemia Hypertension Palpitations Stage 4 lung cancer Social History Social History Patient Tobacco Use Status: Never used Tobacco Smoked in Last 30 Days: No Use of substances other than those prescribed or required for medical reasons: No Advance Directives: No Advance Directives Information Provided: Yes Physical Exam ED Vital Signs: Vital Signs - 24 hr 11/15/24 06:54 11/15/24 07:01 Temperature 97.5 F Pulse Rate 100 100 Respiratory Rate 18 16 Blood Pressure 130/82 147/85 H Pulse Oximetry 99 96 Oxygen Delivery Method Nasal Cannula Nasal Cannula Oxygen Flow Rate 2 BMI result Body Mass Index 34.2 Appearance: Alert. Oriented X3. No acute distress. Eyes: Pupils equal, round and reactive to light. ENT: Pharynx normal. Neck: Normal inspection. Neck supple. CVS: Normal heart rate and rhythm. Pulses normal. Respiratory: No respiratory distress. Breath sounds normal. Abdomen: atraumatic Skin: Skin warm and dry. Normal skin color. Extremities: No lower extremity edema. Neuro: Oriented X 3. No motor deficit. No sensory deficit. Medical Decision Making Medical Decision Making MDM Narrative: 59 yo male with PMH of HLD, GERD, HTN, DM, lung cancer being treated at [facility] here with c/o not knowing how to use his sliding scale insulin. At this time will need education as well as dosing. He has no other complaints doubt DKA. Handed info to him and his partner. He declines VNA. Differential Diagnosis Differential Diagnoses: The differential diagnosis associated with the presentation includes lack of DM education, hyperglycemia Admission/Observation Consideration of admission/observation: Escalation of care including admission/observation considered discussed how to manage SS and given sheet as well as dosed here and will DC Lab Data [facility] Lab Attestation statement: I reviewed the patient's lab results. Independent Historian Clinical information obtained from an independent historian. History obtained from or confirmed by: Spouse External Record Review External record reviewed: Outpatient record Discharge Plan Discharge Clinical Impression: Steroid-induced hyperglycemia Patient Disposition: Home, Self-Care Instructions: Diabetic Hyperglycemia (ED) Additional Instructions: return for any worsening symptoms or concerns follow up with your doctor do not take anymore insulin until you check before lunch carry small candy, protein, juice in case your sugar drops Prescriptions: No Action Flonase Sensimist 27.5 mcg/actuation spray,suspension 2 spray intranasal DAILY Qty: 6.6 0RF Rx Instructions: into each nostril losartan-hydrochlorothiazide 100-25 mg tablet 1 tab PO DAILY diltiazem HCl 360 mg capsule,extended release 24hr 360 mg PO DAILY atorvastatin 40 mg tablet 40 mg PO DAILY losartan 100 mg tablet 100 mg PO DAILY metformin 1,000 mg tablet 1,000 mg PO BID magnesium oxide 400 mg (241.3 mg magnesium) tablet 400 mg PO DAILY famotidine 20 mg tablet PO pseudoephedrine HCl [Sudafed 12 Hour] 120 mg tablet extended release 120 mg PO Q12H 7 Days Qty: 14 0RF Print Language: Albanian
--- OUTSIDE RECORDS SUMMARY | 2024-11-15 07:29 | XMS_ITS | Encounter Summary ---
Author Organization [facility] Address [address] [place] [address] Phone Care Team Providers Care Slitter Creaser Slotter Operator Name Role Phone Indigo Du SWITCH BOX INSTALLER Unavailable Grecia Bonilla MD Primary Care Provider Hermelinda Barajas MD Unavailable [phone] Cindi Shell [facility] Unavailable Carlos Alberto King [place], [place] Unavailable [phone] Patria Luevano RN Unavailable TOBIAS [email or web address] Jennie Ferreira RN Unavailable [email or web address] Encounter Details Date Type Department Care Team (Late st Contact Info) Description 09/10/2024 Procedure Pass [facility], Ct Scan - [address] [address] Social History Tobacco Use Types Packs/Day Years [...] st Contact Info) Description 10/18/2024 Procedure Pass [facility] Women[facility] Radiology 70 [place] [address] 10/23/2024 Procedure Pass [facility] EKG 70 [place] [address] 10/23/2024 Procedure Pass [facility] EKG 70 [place] [address] 11/13/2024 Procedure Pass [address] [address] 11/13/2024 Procedure Pass [address] [address] 11/16/2024 8:30 AM EDT Appointment [facility] MSK Diagnostic X-ray Imaging, [address] [place] [address] Andrew Lima MD [address] [place] [address] Department [place] [address] [email or web address] 11/16/2024 9:00 AM EDT Office Visit [facility] Department of Orthopaedics 60 [place] [address] Andrew Lima MD 75 [facility] Department [place] [address] [email or web address] 11/22/2024 1:00 PM EDT Office Visit [facility] Endocrine, Diabetes, and Hypertension 221 [facility] 2nd [place] [address] Svetlana Lucero, RigoD 75 [place] [address] [email or web address] 11/26/2024 1:00 PM EDT Social Work Social Work Department, [facility] 300 [facility] 4th [place] [address] Hermelinda Barajas MD [address] [employer] [address] [place] [address] [email or web address] Indigo Du, [facility] [address] [place] [address] [email or web address] 12/04/2024 7:30 AM EDT Blood Draw Laboratory Services, [facility] 450 [facility], 2nd [place] [address] Hermelinda Barajas MD [address] [employer] 1240 [place] [address] [email or web address] 12/04/2024 8:30 AM EDT Office Visit [facility] for Thoracic Oncology, [facility] 450 [facility], 9th [place] [address] Cindi Shell FREEMAN [address] [place] [address] Benedict east@[facility] Hermelinda Barajas MD [address] [place] [address] 1240 [place] [address] Pedro@[email or web address] 12/04/2024 9:30 AM EDT Infusion Infusion Therapy Services Yawkey 9, [address], 9th [place] [address] Cindi Shell CNP [address] [place] [address] Benedict east@[facility] Patria Luevano, BRIELLE [address] [place] [address] STEFANO@[facility] 12/25/2024 6:30 AM EDT Blood Draw Laboratory Services, [address], 2nd [place] [address] Cindi Shell CNP [address] [place] [address] Benedict east@[facility] 12/25/2024 7:30 AM EDT Office Visit [facility], [address], 9th [place] [address] Cindi Shell CNP [address] [place] [address] Benedict east@[facility] 12/25/2024 8:30 AM EDT Infusion Infusion Therapy Services [place] 9, [facility] 450 [facility], 9th [place] [address] Cindi Shell CNP 450 [place] [address] Benedict east@[facility] 01/11/2025 11:45 AM EST Appointment [address] [address] Hermelinda Barajas MD [address] [place] [address] [place] [address] [email or web address] 01/15/2025 7:10 AM EST Blood Draw Laboratory Services, [address], 2nd [place] [address] Cindi Shell CNP 450 [place] [address] Benedict east@[facility] 01/15/2025 8:00 AM EST Office Visit [facility], [facility] 450 [facility], 9th [place] [address] Hermelinda Barajas MD [address] [place] [address] 1240 [place] [address] [email or web address] 01/15/2025 9:00 AM EST Infusion Infusion Therapy Services [place] 9, [facility] 450 [facility], 9th [place] [address] Cindi Shell, WEB PORTAL DEVELOPER 450 [facility] [place] [address] [email or web address] [email or web address] 01/18/2025 7:35 AM EST Hospital Encounter [facility] EKG 70 [place] [address] Guanakito Gallardo MD [address] [place] [address] [place] [address] Arrived 01/18/2025 8:30 AM EST Appointment [facility] [address] [place] [address] Odalis Jimenez PA-C [address] [place] [address] 5th [place] [address] [email or web address] 02/01/2025 8:40 AM EST Office Visit [facility] Otolaryngology 45 [facility] ASB2-2 [place] [address] Demetrio Armstrong MD 45 [place] [phone] [email or web address] 02/25/2025 9:30 AM EST Telemedicine [facility] Cardiovascular Clinic [address] [place] [address] Guanakito Gallardo MD [address] [place] [address] [place] [address] 07/04/2025 10:00 AM EDT Telemedicine [facility] Cardiovascular Clinic [address] [place] [address] Thiago Bean MD [address] [place] [address] [email or web address]@[email or web address] 10/18/2025 7:05 AM EDT Hospital Encounter [facility] EKG 70 [place] [address] Guanakito Gallardo MD [address] [place] [address] [place] [address] [email or web address] Arrived documented as of this encounter Visit Diagnoses Not on filedocumented in this encounter Care Teams Slitter Creaser Slotter Operator Relationship Specialty Start Date End Date Grecia Bonilla MD [address] [place] [address] [place] [phone] PCP - General Internal Medicine 10/13/22 Indigo Du, [facility] [address] [place] [address] [email or web address] Corporate Executive Chef Oncology 07/27/22 Hermelinda Barajas MD [address] [place] [address] [place] [address] Pedro@[email or web address] Medical Oncology 11/29/22 Cindi Shell CNP [address] [place] [address] Fina@[facility] Gerontology 11/29/22 Carlos Alberto King MD, [place] [address] [place] [address] Department of Psychosocial Oncology and Palliative Care, [place] [phone] Jaelyn@[email or web address] Hospice and Palliative Care 04/05/24 Patria Luevano, BRIELLE [address] [place] [address] [email or web address]@[email or web address] Primary Infusion Nurse 05/15/24 Jennie Ferreira, RN [address] [place] [address] [email or web address] Associate Infusion Nurse 10/02/24 documented as of this encounter Additional Source Comments The information contained in this document represents components of the legal health record. It is not the complete legal health record.[facility]
--- OUTSIDE RECORDS SUMMARY | 2024-11-15 07:29 | XMS_ITS | Encounter Summary ---
Author Organization [facility] Address [address] [facility] [address] [place] [address] Phone Care Team Providers Care Copy Center Specialist Name Role Phone Indigo DuSW Unavailable Grecia Bonilla MD Primary Care Provider Hermelinda Barajas MD Unavailable [phone] Cindi Shell [facility] Unavailable Carlos Alberto King MD, [place] Unavailable [phone] Patria Luevano RN Unavailable TOBIAS [email or web address] Jennie Ferreira RN Unavailable [email or web address] Reason for Visit * Reason Onset Date Comments SUZY/LEVA 11/13/2024 Encounter Details Date Type Department Care Team (Late st Contact Info) Description 11/13/2024 Telephone [facility] DIABETES MEDICINE [address] [place] [address] Frank Partida, PhD 221 [place] [address] [email or web address] SUZY/ELVA Social History Tobacco Use Types Packs/Day Years [...] as of this encounter Progress Notes * Shobha Hunt RN - 11/14/2024 2:38 PM EDT TC to patient to communicate following message from Dr. Partida: I would still take the 10 units of glargine each day as the blood sugars on the hua are still in the 160s or so in the morning. We could hold the lantus if the bedtime blood sugar is below 120. He will need likely need less of this when he is not on the dexamethasone but we can follow the levels and adjust as needed. Advised pt that we would be setting up visit with clinical pharmacist to discuss insulin and dosingin more detail. Pt prefers VV. Sending pt above message over gateway as well for his reference. * Shobha Hunt RN - 11/14/2024 1:11 PM EDT TC to patient. Reviewed AVS with pt regarding short acting insulin dosing. Pt requesting chart on how to take long acting insulin. Reviewed with pt that he should take 10 units lantus daily, pt states he has not started lantus, has concerns about taking lantus at night if his evening glucose readings are 120-140s. Pt is using uha. Data visible on hua view. Will route to provider for review/recommendations * Aide Nelson - 11/14/2024 12:03 PM EDT Hi, Patient of Dr. Partida The patient is calling again to get clarification on the medication. Please see previous messages and call the patient back when possible. [facility]# [phone] ThanksAide Patient Plant Operations Manager Department of Medicine * Odalis Thomas - 11/13/2024 2:33 PM EDT Patient called to report he was prescribed insulin glargine but not given clear instructions on taking it. He notes his dexamethasone he takes before/during/after cancer treatment every three weeks significantly elevates his blood sugar levels. He is not sure when he should and should not take the insulin glargine, noting he wasn't given a sliding scale chart for this medication. He is also not sure how often he should be checking his sugar. He is requesting callback to touch base on this medication and confirming how to take this insulin glargine. Verified phone number [phone] on file; secure voicemail okay to leave detailed message. documented in this encounter Plan of Treatment Upcoming Encounters Date Type Department Care Team (Late st Contact Info) Description 10/18/2024 Procedure Pass [facility] 70 [place] [address] 10/23/2024 Procedure Pass [facility] EKG 70 [place] [address] 10/23/2024 Procedure Pass [facility] EKG 70 [place] [address] 11/13/2024 Procedure Pass [facility], Ct Scan [facility] 30 [place] [address] 11/13/2024 Procedure Pass [facility], [facility] 30 [place] [address] 11/16/2024 8:30 AM EDT Appointment [facility] MSK Diagnostic X-ray Imaging, [place] 60 [place] [address] Andrew Lima MD [address] [place] [address] Department of [place] [address] [email or web address] 11/16/2024 9:00 AM EDT Office Visit [facility] Department of Orthopaedics 60 [place] [address] Andrew Lima MD [address] [place] [address] Department [place] [address] [email or web address] 11/22/2024 1:00 PM EDT Office Visit [facility] Endocrine, Diabetes, and Hypertension 221 [facility] 2nd [place] [address] Svetlana Lucero, PharmD 75 [place] [address] [email or web address] 11/26/2024 1:00 PM EDT Social Work Social Work Department, [facility] [place] 300 [facility] 4th [place] [address] Heremlinda Barajas MD [address] [place] [address] [place] [address] [email or web address] Indigo Du, [facility] 300 [place] [address] [email or web address] 12/04/2024 7:30 AM EDT Blood Draw Laboratory Services, [address], [address] [place], [place] Hermelinda Barajas MD 450 [facility] 1240 [place] [address] Pedro@[facility] 12/04/2024 8:30 AM EDT Office Visit [facility] Center for Thoracic Oncology, [address], 9th [place] [address] Cindi Shell CNP [address] [place] [address] Benedict east@[email or web address] Hermelinda Barajas MD [address] [place] [address] 1240 [place] [address] Pedro@[facility] 12/04/2024 9:30 AM EDT Infusion Infusion Therapy Services [place] [address], [address], 9th [place] [address] Cindi Shell INSTRUCTOR PAINTING [address] [place] [address] Benedict east@[facility] Patria Luevano, RN 450 [place] [address] [email or web address]@[facility] 12/25/2024 6:30 AM EDT Blood Draw Laboratory Services, [address], 2nd [place] [address] Cindi Shell INSTRUCTOR PAINTING 450 [place] [address] Benedict east@[facility] 12/25/2024 7:30 AM EDT Office Visit [facility] for Thoracic Oncology, [address], 9th [place] [address] Cindi Shell INSTRUCTOR PAINTING 450 [place] [address] Benedict east@[facility] 12/25/2024 8:30 AM EDT Infusion Infusion Therapy Services [place] [address], [address], 9th [place] [address] Cindi Shell INSTRUCTOR PAINTING 450 [place] [address] Benedict east@[facility] 01/11/2025 11:45 AM EST Appointment [facility], Ct Scan - [address] [address] Hermelinda Barajas MD [address] [place] [address] 1240 [place] [address] [email or web address] 01/15/2025 7:10 AM EST Blood Draw Laboratory Services, [address], 2nd [place] [address] Cindi Shell INSTRUCTOR PAINTING 450 [place] [address] Benedict east@[facility] 01/15/2025 8:00 AM EST Office Visit [facility] Center for Thoracic Oncology, [facility] [address] [facility], 9th [place] [address] Hermelinda Barajas MD 450 [facility] 1240 [place] [address] Pedro@[facility] 01/15/2025 9:00 AM EST Infusion Infusion Therapy Services [address] [facility], 9th [place] [address] Cindi Shell CNP 450 [place] [address] Benedict east@[facility] 01/18/2025 7:35 AM EST Hospital Encounter [facility] EKG 70 [place] [address] Guanakito Gallardo MD 75 [facility] [place] [address] [facility] 01/18/2025 8:30 AM EST Appointment [facility] 70 [place] [address] Odalis Jimenez PA-C [address] [facility] 5th [place] [address] [email or web address] 02/01/2025 8:40 AM EST Office Visit [facility] Otolaryngology 45 [facility] ASB2-2 [place] [address] Demetrio Armstrong MD 45 [place] [phone] [email or web address] 02/25/2025 9:30 AM EST Telemedicine [facility] Cardiovascular Clinic 70 [place] [address] Guanakito Gallardo MD [address] [place] [address] 07/04/2025 10:00 AM EDT Telemedicine [facility] Cardiovascular Clinic [address] [place] [address] Thiago Bean MD [address] [place] [address] [email or web address] 10/18/2025 7:05 AM EDT Hospital Encounter [facility] EKG 70 [place] [address] Guanakito Gallardo MD [address] [place] [address] Arrived documented as of this encounter Visit Diagnoses Not on filedocumented in this encounter Care Teams Copy Center Specialist Relationship Specialty Start Date End Date Grecia Bonilla MD [address] [place] [address] Dr Stern [address] [place] [phone] PCP - General Internal Medicine 10/13/22 Indigo Du, [facility] 300 [place] [address] [email or web address] Outpatient Phlebotomist Oncology 07/27/22 Hermelinda Barajas MD [facility] Wendy Shen 1240 [place] [address] [email or web address] Medical Oncology 11/29/22 Cindi Shell, INSTRUCTOR PAINTING [address] [place] [address] Fina@[email or web address] Gerontology 11/29/22 Carlos Alberto King MD, [place] [address] [place] [address] Department of Psychosocial Oncology and Palliative Care, [place] [phone] Jaelyn@[facility] Hospice and Palliative Care 04/05/24 Patria Luevano RN [address] [place] [address] [email or web address] Primary Infusion Nurse 05/15/24 Jennie Ferreira RN [address] [place] [address] [email or web address] Associate Infusion Nurse 10/02/24 documented as of this encounter Additional Source Comments The information contained in this document represents components of the legal health record. It is not the complete legal health record.[facility]
--- OUTSIDE RECORDS SUMMARY | 2024-11-15 07:30 | XMS_ITS | Encounter Summary ---
Author Organization [facility] Address [address] [place] [address] Phone Care Team Providers Care Aircraft Dispatcher Name Role Phone Indigo Du SILK CREPE MACHINE OPERATOR Unavailable [phone] Grecia Bonilla MD Primary Care Provider Hermelinda Barajas MD Unavailable [phone] Cindi Shell [facility] Unavailable [phone] Carlos Alberto King MD, [place] Unavailable Patria Luevano RN Unavailable TOBIAS [email or web address] Jennie Ferreira RN Unavailable ALISON@ [email or web address] Encounter Details Date Type Department Care Team (Late st Contact Info) Description 09/10/2024 Procedure Pass [facility], Ct Scan - [address] [address] Social History Tobacco Use Types Packs/Day Years [...] st Contact Info) Description 10/18/2024 Procedure Pass [facility] Radiology [address] [place] [address] 10/23/2024 Procedure Pass [facility] EKG [address] [place] [address] 10/23/2024 Procedure Pass [facility] EKG [address] [place] [address] 11/13/2024 Procedure Pass [address] [address] 11/13/2024 Procedure Pass [address] [address] 11/16/2024 8:30 AM EDT Appointment [facility] MSK Diagnostic X-ray Imaging, Eve [address] [place] [address] Andrew Lima MD [address] [place] [address] Department [place] [address] [email or web address] 11/16/2024 9:00 AM EDT Office Visit [facility] Department of Orthopaedics 60 [place] [address] Andrew Lima MD 75 [facility] Department [place] [address] [email or web address] 11/22/2024 1:00 PM EDT Office Visit [facility] Endocrine, Diabetes, and Hypertension [address] [facility] 2nd [place] [address] Svetlana Lucero, RigoD 75 [place] [address] [email or web address] 11/26/2024 1:00 PM EDT Social Work Social Work Department, [facility] [place] 300 [facility] 4th [place] [address] Hermelinda Barajas MD 450 [facility] [address] [place] [address] Pedro@[facility] Indigo Du, [facility] 300 [place] [address] [email or web address] 12/04/2024 7:30 AM EDT Blood Draw Laboratory Services, [facility] 450 [facility], 2nd [place] [address] Hermelinda Barajas MD 450 [facility] 1240 [place] [address] Pedro@[facility] 12/04/2024 8:30 AM EDT Office Visit [facility] for Thoracic Oncology, [facility] 450 [facility], 9th [place] [address] Cindi Shell FREEMAN [address] [place] [address] Benedict east@[facility] Hermelinda Barajas MD [address] [place] [address] 1240 [place] [address] Pedro@[facility] 12/04/2024 9:30 AM EDT Infusion Infusion Therapy Services Yawkey 9, [address], 9th [place] [address] Cindi Shell CNP [address] [place] [address] Benedict east@[facility] Patria Luevano, BRIELLE [address] [place] [address] [email or web address]@[email or web address] 12/25/2024 6:30 AM EDT Blood Draw Laboratory Services, [address], 2nd [place] [address] Cindi Shell CNP [address] [place] [address] Benedict east@[facility] 12/25/2024 7:30 AM EDT Office Visit [facility], [address], 9th [place] [address] Cindi Shell CNP [address] [place] [address] Benedict east@[facility] 12/25/2024 8:30 AM EDT Infusion Infusion Therapy Services Y[facility] 9, [facility] 450 [facility], 9th [place] [address] Cindi Shell CNP 450 [place] [address] Benedict east@[facility] 01/11/2025 11:45 AM EST Appointment [address] [address] Hermelinda Barajas MD [address] [place] [address] [place] [address] Pedro@[facility] 01/15/2025 7:10 AM EST Blood Draw Laboratory Services, [address], 2nd [place] [address] Cindi Shell CNP 450 [place] [address] Benedict east@[facility] 01/15/2025 8:00 AM EST Office Visit [facility]acic On[facility], [facility] 450 [facility], 9th [place] [address] Hermelinda Barajas MD [address] [place] [address] 1240 [place] [address] Pedro@[facility] 01/15/2025 9:00 AM EST Infusion Infusion Therapy Services [facility] 9, [facility] 450 [facility], 9th [place] [address] Cindi Shell, GRAPHICS ARTIST 450 [facility] [place] [address] CindiMukeshWalter [email or web address] 01/18/2025 7:35 AM EST Hospital Encounter [facility] EKG 70 [place] [address] Guanakito Gallardo MD [address] [place] [address] [place] [address] Arrived 01/18/2025 8:30 AM EST Appointment [facility] [address] [place] [address] Odalis Jimenez PA-C [address] [place] [address] 5th [place] [address] [email or web address] 02/01/2025 8:40 AM EST Office Visit [facility] Otolaryngology 45 [facility] ASB2-2 [place] [address] Demetrio Armstrong MD 45 [place] [phone] [email or web address] 02/25/2025 9:30 AM EST Telemedicine [facility] Cardiovascular Clinic [address] [place] [address] Guanakito Gallardo MD [address] [place] [address] [place] [address] 07/04/2025 10:00 AM EDT Telemedicine [facility]ovascular Clinic [address] [place] [address] Thiago Bean MD [address] [place] [address] [email or web address] 10/18/2025 7:05 AM EDT Hospital Encounter [facility] EKG 70 [place] [address] Guanakito Gallardo MD [address] [place] [address] Card[place] [address] [email or web address] Arrived documented as of this encounter Visit Diagnoses Not on filedocumented in this encounter Care Teams Aircraft Dispatcher Relationship Specialty Start Date End Date Grecia Bonilla MD [address] [place] [address] [place] [address] PCP - General Internal Medicine 10/13/22 Indigo Du, [facility] 300 [place] [address] [email or web address] Ruby On Rails Developer Oncology 07/27/22 Hermelinda Barajas MD [address] [place] [address] [place] [address] [email or web address] Medical Oncology 11/29/22 Cindi Shell CNP [address] [place] [address] [email or web address] Gerontology 11/29/22 Carlos Alberto King MD, [place] [address] [place] [address] Department of Psychosocial Oncology and Palliative Care, [place] [phone] [email or web address]@[facility] Hospice and Palliative Care 04/05/24 Patria Luevano, BRIELLE [address] [place] [address] [email or web address]@[facility] Primary Infusion Nurse 05/15/24 Jennie Ferreira, RN [address] [place] [address] [email or web address] Associate Infusion Nurse 10/02/24 documented as of this encounter Additional Source Comments The information contained in this document represents components of the legal health record. It is not the complete legal health record.[facility]
--- OUTSIDE RECORDS SUMMARY | 2024-11-15 07:30 | XMS_ITS | Encounter Summary ---
Author Organization [facility] Address [address] [place] [address] Phone Care Team Providers Care Infection Control Manager Name Role Phone Indigo Du [facility] Unavailable Grecia Bonilla MD Primary Care Provider Hermelinda Barajas MD Unavailable [phone] Cindi Shell SHIFT ENGINEER Unavailable Carlos Alberto King MD, [place] Unavailable [phone] Patria Luevano RN Unavailable TOBIAS [email or web address] Jennie Ferreira RN Unavailable ALISON@ [email or web address] Encounter Details Date Type Department Care Team (Late st Contact Info) Description 09/24/2024 Procedure Pass [facility] Endoscopy Department [address] [place] [address] Social History Tobacco Use Types Packs/Day Years [...] st Contact Info) Description 10/18/2024 Procedure Pass [facility] 70 [place] [address] 10/23/2024 Procedure Pass [facility] EKG [address] [place] [address] 10/23/2024 Procedure Pass [facility] EKG [address] [place] [address] 11/13/2024 Procedure Pass [address] [address] 11/13/2024 Procedure Pass [address] [address] 11/16/2024 8:30 AM EDT Appointment [facility] MSK Diagnostic X-ray Imaging, [place] [address] Andrew Lima MD [address] [place] [address] Department [place] [address] [email or web address] 11/16/2024 9:00 AM EDT Office Visit [facility] Department of Orthopaedics 60 [place] [address] Andrew Lima MD 75 [facility] Department [place] [address] [email or web address] 11/22/2024 1:00 PM EDT Office Visit [facility] Endocrine, Diabetes, and Hypertension 221 [facility] 2nd [place] [address] Svetlana Lucero, PharmD 75 [place] [address] [email or web address] 11/26/2024 1:00 PM EDT Social Work Social Work Department, [facility] [address] [address] Hermelinda Barajas MD [address] [place] [address] [email or web address]@[facility] Indigo Du, [facility] 300 [place] [address] [email or web address] 12/04/2024 7:30 AM EDT Blood Draw Laboratory Services, [address], 2nd [place] [address] Hermelinda Barajas MD 450 [facility] [address] [place] [address] Pedro@[facility] 12/04/2024 8:30 AM EDT Office Visit [facility] Center for Thoracic Oncology, [facility] 450 [facility], 9th [place] [address] Cindi Shell CNP [address] [place] [address] Benedict east@[facility] Hermelinda Barajas MD [address] [place] [address] 1240 [place] [address] Pedro@[facility] 12/04/2024 9:30 AM EDT Infusion Infusion Therapy Services [facility] 9, [address], 9th [place] [address] Cindi Shell CNP [address] [place] [address] Benedict east@[facility] Patria Luevano, BRIELLE [address] [place] [address] [email or web address]@[facility] 12/25/2024 6:30 AM EDT Blood Draw Laboratory Services, [address], 2nd [place] [address] Cindi Shell CNP [address] [place] [address] Benedict east@[facility] 12/25/2024 7:30 AM EDT Office Visit [facility] Center for Thoracic Oncology, [address], 9th [place] [address] Cindi Shell CNP [address] [place] [address] Benedict east@[facility] 12/25/2024 8:30 AM EDT Infusion Infusion Therapy Services [facility] 9, [facility] 450 [facility], 9th [place] [address] Cindi Shell SHIFT ENGINEER 450 [place] [address] Benedict east@[facility] 01/11/2025 11:45 AM EST Appointment [facility], [address] [address] Hermelinda Barajas MD [address] [place] [address] 1240 [place] [address] Pedro@[facility] 01/15/2025 7:10 AM EST Blood Draw Laboratory Services, [address], 2nd [place] [address] Cindi Shell SHIFT ENGINEER 450 [place] [address] Benedict east@[facility] 01/15/2025 8:00 AM EST Office Visit [facility] Center for Thoracic Oncology, [address], 9th [place] [address] Hermelinda Barajas MD [address] [place] [address] 1240 [place] [address] Pedro@[facility] 01/15/2025 9:00 AM EST Infusion Infusion Therapy Services [facility] 9, [facility] 450 [facility], 9th [place] [address] Cindi Kelly, SHIFT ENGINEER 450 [facility] [place] [address] Benedict [email or web address] 01/18/2025 7:35 AM EST Hospital Encounter [facility] EKG 70 [place] [address] Guanakito Gallardo MD [address] [place] [address] [place] [address] [email or web address] Arrived 01/18/2025 8:30 AM EST Appointment [facility] 70 [place] [address] Odalis Jimenez PA-C 70 [facility] 5th [place] [address] [email or web address] 02/01/2025 8:40 AM EST Office Visit [facility] Otolaryngology 45 [facility] ASB2-2 [place] [address] Demetrio Armstrong MD 45 [place] [phone] [email or web address] 02/25/2025 9:[address] [facility] Cardiovascular Clinic [address] [place] [address] Guanakito Gallardo MD [address] [place] [address] [place] [address] [email or web address] 07/04/2025 10:[address] [facility] Cardiovascular Clinic [address] [place] [address] Thiago Bean MD [address] [place] [address] [email or web address] 10/18/2025 7:05 AM EDT Hospital Encounter [facility] EKG 70 [place] [address] Guanakito Gallardo MD [address] [place] [address] [place] [address] [email or web address] Arrived documented as of this encounter Visit Diagnoses Not on filedocumented in this encounter Care Teams Infection Control Manager Relationship Specialty Start Date End Date Grecia Bonilla MD [address] [place] [address] [place] [address] PCP - General Internal Medicine 10/13/22 Indigo Du, [facility] 300 [place] [address] [email or web address] Ring Facer Oncology 07/27/22 Hermelinda Barajas MD [address] [place] [address] [email or web address]@[facility] Medical Oncology 11/29/22 Cindi Shell CNP [address] [place] [address] [email or web address] Gerontology 11/29/22 Carlos Alberto King MD, [place] [address] [place] [address] Department of Psychosocial Oncology and Palliative Care, [place] [phone] Jaelyn@[facility] Hospice and Palliative Care 04/05/24 Patria Luevano, BRIELLE [address] [place] [address] [email or web address]@[facility] Primary Infusion Nurse 05/15/24 Jennie Ferreira, RN [address] [place] [address] ALISON@[email or web address] Associate Infusion Nurse 10/02/24 documented as of this encounter Additional Source Comments The information contained in this document represents components of the legal health record. It is not the complete legal health record.[facility]
--- OUTSIDE RECORDS SUMMARY | 2024-11-15 07:30 | XMS_ITS | Encounter Summary ---
Author Organization [facility] Address [address] [place] [address] Phone Care Team Providers Care Maintainer Operator Name Role Phone Indigo DuSW Unavailable Grecia Bonilla MD Primary Care Provider Hermelinda Barajas MD Unavailable [phone] Cindi Shell [facility] Unavailable [phone] Carlos Alberto King MD, [place] Unavailable [phone] Patria Luevano RN Unavailable TOBIAS [email or web address] Jennie Ferreira RN Unavailable ALISON@ [email or web address] Encounter Details Date Type Department Care Team (Late st Contact Info) Description 10/17/2024 Procedure Pass [facility] Rad[facility] [address] [place] [address] Social History Tobacco Use Types Packs/Day Years [...] st Contact Info) Description 10/18/2024 Procedure Pass [facility] [address] [place] [address] 10/23/2024 Procedure Pass [facility] EKG [address] [place] [address] 10/23/2024 Procedure Pass [facility] EKG 70 [place] [address] 11/13/2024 Procedure Pass [address] [address] 11/13/2024 Procedure Pass [address] [address] 11/16/2024 8:30 AM EDT Appointment [facility] MSK Diagnostic X-ray Imaging, [place] [address] Andrew Lima MD [address] [place] [address] Department [place] [address] [email or web address] 11/16/2024 9:00 AM EDT Office Visit [facility] Department of Orthopaedics 60 [place] [address] Andrew Lima MD 75 [facility] Department [place] [address] [email or web address] 11/22/2024 1:00 PM EDT Office Visit [facility] Endocrine, Diabetes, and Hypertension 221 [facility] 2nd [place] [address] Svetlana Lucero, PharmD 75 [place] [address] nilam@[facility] 11/26/2024 1:00 PM EDT Social Work Social Work Department, [facility] [address] [address] Hermelinda Barajas MD [address] [place] [address] Pedro@[facility] Indigo Du, [facility] [address] [place] [address] [email or web address] 12/04/2024 7:30 AM EDT Blood Draw Laboratory Services, [address], 2nd [place] [address] Hermelinda Barajas MD [address] [place] [address] [place] [id number] Pedro@[facility] 12/04/2024 8:30 AM EDT Office Visit [facility] Center for Thoracic Oncology, [facility] [address] [facility], 9th [place] [address] Cindi Shell CNP [address] [place] [address] Benedict east@[facility] Hermelinda Barajas MD 450 [facility] 1240 [place] [address] [email or web address] 12/04/2024 9:30 AM EDT Infusion Infusion Therapy Services Yawkey 9, [address], 9th [place] [address] Cindi Shell CNP [address] [place] [address] Benedict east@[facility] Patria Luevano, BRIELLE [address] [place] [address] STEFANO@[facility] 12/25/2024 6:30 AM EDT Blood Draw Laboratory Services, [address], 2nd [place] [address] Cindi Shell CNP [address] [place] [address] Benedict east@[facility] 12/25/2024 7:30 AM EDT Office Visit [facility] Center for Thoracic Oncology, [address], 9th [place] [address] Cindi Shell CNP [address] [place] [address] Benedict east@[facility] 12/25/2024 8:30 AM EDT Infusion Infusion Therapy Services [facility] 9, [facility] [address] [facility], 9th [place] [address] Cindi Shell WIRE BENDER HAND 450 [place] [address] Benedict east@[facility] 01/11/2025 11:45 AM EST Appointment [facility], [address] [address] Hermelinda Barajas MD [address] [place] [address] Pedro@[facility] 01/15/2025 7:10 AM EST Blood Draw Laboratory Services, [address], 2nd [place] [address] Cindi Shell W[employer] 450 [place] [address] Benedict east@[facility] 01/15/2025 8:00 AM EST Office Visit [facility] Center for Thoracic Oncology, [facility] [address] [facility], 9th [place] [address] Hermelinda Barajas MD [address] [place] [address] Pedro@[facility] 01/15/2025 9:00 AM EST Infusion Infusion Therapy Services Yawmelissa 9, [facility] [address] [facility], 9th [place] [address] Cindi Shell, WIRE BENDER HAND 450 [facility] [place] [address] Benedict [email or web address] 01/18/2025 7:35 AM EST Hospital Encounter [facility] EKG 70 [place] [address] Guanakito Gallardo MD [address] [place] [address] [place] [address] [email or web address] Arrived 01/18/2025 8:30 AM EST Appointment [facility] 70 [place] [address] Odalis Jimenez PA-C 70 [facility] 5th [place] [address] [email or web address] 02/01/2025 8:40 AM EST Office Visit [facility] Otolaryngology 45 [facility] ASB2-2 [place] [address] Demetrio Armstrong MD 45 [place] [phone] [email or web address] 02/25/2025 9:30 AM EST Telemedicine [facility] Clinic [address] [place] [address] Guanakito Gallardo MD [address] [place] [address] [email or web address] 07/04/2025 10:00 AM EDT Telemedicine [facility] Clinic [address] [place] [address] Thiago Bean MD [address] [place] [address] [email or web address]@[facility] 10/18/2025 7:05 AM EDT Hospital Encounter [facility] EKG 70 [place] [address] Guanakito Gallardo MD [address] [place] [address] [place] [address] [email or web address] Arrived documented as of this encounter Visit Diagnoses Not on filedocumented in this encounter Care Teams Maintainer Operator Relationship Specialty Start Date End Date Grecia Bonilla MD [address] [place] [address] [place] [address] PCP - General Internal Medicine 10/13/22 Indigo Du, [facility] [address] [place] [address] [email or web address] Sulfonator Operator Oncology 07/27/22 Hermelinda Barajas MD [address] [place] [phone] Pedro@[facility] Medical Oncology 11/29/22 Cindi Shell CNP [address] [place] [address] Fina@[email or web address] Gerontology 11/29/22 Carlos Alberto King MD, [place] [address] [place] [address] Department of Psychosocial Oncology and Palliative Care, [place] [phone] Jaelyn@[facility] H[facility]ice and [facility] 04/05/24 Patria Luevano, BRIELLE [address] [place] [address] STEFANO@[facility] Primary Infusion Nurse 05/15/24 Jennie Ferreira, RN [address] [place] [address] [email or web address] Associate Infusion Nurse 10/02/24 documented as of this encounter Additional Source Comments The information contained in this document represents components of the legal health record. It is not the complete legal health record.[facility]
--- OUTSIDE RECORDS SUMMARY | 2024-11-15 07:30 | XMS_ITS | Encounter Summary ---
Author Organization [facility] Address [address] [place] [address] Phone Care Team Providers Care Street And Building Decorator Name Role Phone Indigo DuSW Unavailable Grecia Bonilla MD Primary Care Provider Hermelinda Barajas MD Unavailable [phone] Cindi Shell FACE BURLER Unavailable [phone] Zuri Ha RN Unavailable Sandra [email or web address] Carlos Alberto King MD, [place] Unavailable Patria Luevano RN Unavailable TOBIAS [email or web address] Jennie Ferreira RN Unavailable ALISON@ [email or web address] Encounter Details Date Type Department Care Team (Late st Contact Info) Description 01/10/2024 Procedure Pass [facility], Ct Scan - [facility] 30 [place] [address] Social History Tobacco Use Types Packs/Day Years [...] st Contact Info) Description 10/18/2024 Procedure Pass [facility] Radiology 70 [place] [address] 10/23/2024 Procedure Pass [facility] EKG 70 [place] [address] 10/23/2024 Procedure Pass [facility] EKG 70 [place] [address] 11/13/2024 Procedure Pass [address] [address] 11/13/2024 Procedure Pass [address] [address] 11/16/2024 8:30 AM EDT Appointment [facility] MSK Diagnostic X-ray Imaging, [place] [address] [place] [address] Andrew Lima MD [address] [place] [address] Department [place] [address] [email or web address] 11/16/2024 9:00 AM EDT Office Visit [facility] Department of Orthopaedics 60 [place] [address] Andrew Lima MD [address] [place] [address] Department [place] [address] [email or web address] 11/22/2024 1:00 PM EDT Office Visit [facility] Endocrine, Diabetes, and Hypertension 221 [facility] 2nd [place] [address] Svetlana Lucero, PharmD 75 [place] [address] nilam@[facility] 11/26/2024 1:00 PM EDT Social Work Social Work Department, [facility] [address] [address] Hermelinda Barajas MD [address] [address] Pedro@[facility] Indigo Du, [address] [address] [email or web address] 12/04/2024 7:30 AM EDT Blood Draw Laboratory Services, [address], 2nd [place] [address] Hermelinda Barajas MD [address] [address] Pedro@[facility] 12/04/2024 8:30 AM EDT Office Visit [facility] Center for Thoracic Oncology, [address], 9th [place] [address] Cindi Shell CNP 450 [place] [address] Benedict east@[facility] Hermelinda Barajas MD 450 [facility] [address] [place] [address] Pedro@[facility] 12/04/2024 9:30 AM EDT Infusion Infusion Therapy Services Yawkey 9, [address], 9th [place] [address] Cindi Shell CNP [address] [place] [address] Benedict east@[facility] Patria Luevano, BRIELLE [address] [place] [address] STEFANO@[facility] 12/25/2024 6:30 AM EDT Blood Draw Laboratory Services, [address], 2nd [place] [address] Cindi Shell CNP [address] [place] [address] Benedict east@[facility] 12/25/2024 7:30 AM EDT Office Visit [facility] Center for Thoracic Oncology, [address], 9th [place] [address] Cindi Shell CNP [address] [place] [address] Benedict east@[facility] 12/25/2024 8:30 AM EDT Infusion Infusion Therapy Services [place] 9, [address], 9th [place] [address] Cindi Shell CNP [address] [place] [address] Benedict east@[facility] 01/11/2025 11:45 AM EST Appointment [facility], Ct Scan - [facility] 30 [place] [address] Hermelinda Barajas MD 450 [facility] 1240 [place] [address] Pedro@[facility] 01/15/2025 7:10 AM EST Blood Draw Laboratory Services, [facility] 450 [facility], 2nd [place] [address] Cindi Shell CNP 450 [place] [address] Benedict east@[facility] 01/15/2025 8:00 AM EST Office Visit [facility] Center for Thoracic Oncology, [facility] 450 [facility], 9th [place] [address] Hermelinda Barajas MD [address] [place] [address] [place] [address] Pedro@[facility] 01/15/2025 9:00 AM EST Infusion Infusion Therapy Services [facility] 9, [facility] 450 [facility], 9th [place] [address] Cindi Shell FACE BURLER 450 [place] [address] Benedict east@[facility] 01/18/2025 7:35 AM EST Hospital Encounter [facility] EKG 70 [place] [address] Guanakito Gallardo MD [address] [place] [address] Cardiology Division [place], [place] [id number] Arrived 01/18/2025 8:30 AM EST Appointment [facility] 70 [place] [address] Odalis Jimenez PA-C 70 [facility] 5th [place] [address] [email or web address] 02/01/2025 8:40 AM EST Office Visit [facility] Otolaryngology 45 [facility] ASB2-2 [place] [address] Demetrio Armstrong MD 45 [place] [phone] [email or web address] 02/25/2025 9:30 AM EST Telemedicine [facility] Cardiovascular Clinic 70 [place] [address] Guanakito Gallardo MD [address] [place] [address] [place] [address] [email or web address] 07/04/2025 10:00 AM EDT Telemedicine [facility]ovascular Clinic 70 [place] [address] Thiago Bean MD [address] [place] [address] [email or web address]@[email or web address] 10/18/2025 7:05 AM EDT Hospital Encounter [facility] EKG 70 [place] [address] Guanakito Gallardo MD [address] [place] [address] [place] [address] [email or web address] Arrived documented as of this encounter Visit Diagnoses Not on filedocumented in this encounter Additional Health Concerns Infection Onset Date Last Indicated Resolved Time CoV-Risk 07/17/2024 07/17/2024 07/28/2024 1:21 AM EDT documented as of this encounter Care Teams Street And Building Decorator Relationship Specialty Start Date End Date Grecia Bonilla MD [address] [place] [address] [place] [address] PCP - General Internal Medicine 10/13/22 Indigo Du, [facility] 300 [place] [address] [email or web address] Food Service Associate Oncology 07/27/22 Hermelinda Barajas MD [address] [place] [address] Pedro@[facility] Medical Oncology 11/29/22 Cindi Shell CNP [address] [place] [address] Fina@[email or web address] Gerontology 11/29/22 Zuri Ha, RN [address] [place] [address] Milton@[facility] Primary Infusion Nurse 01/10/24 05/14/24 Carlos Alberto King MD, MD [address] [place] [address] Department of Psychosocial Oncology and Palliative Care, [place] [address] Jaelyn@[facility] Hospice [facility] 04/05/24 Patria Luevano, RN [address] [place] [address] [email or web address]@[facility] Primary Infusion Nurse 05/15/24 Jennie Ferreira, BRIELLE [address] [place] [address] [email or web address] Associate Infusion Nurse 10/02/24 documented as of this encounter Additional Source Comments The information contained in this document represents components of the legal health record. It is not the complete legal health record.[facility]
--- OUTSIDE RECORDS SUMMARY | 2024-11-15 07:30 | XMS_ITS | Encounter Summary ---
Author Organization [facility] Address [address] [facility] [address] [place] [address] Phone Care Team Providers Care Psychiatric Technician Name Role Phone Indigo Du KIER BOILER Unavailable Grecia Bonilla MD Primary Care Provider Hermelinda Barajas MD Unavailable [phone] Cindi Shell ADVANCED NURSING PROFESSOR Unavailable Carlos Alberto King MD, [place] Unavailable [phone] Patria Luevano RN Unavailable TOBIAS [email or web address] Jennie Ferreira RN Unavailable [email or web address] Reason for Referral * MRI/CAT Scan - Closed Specialty Diagnoses / Procedures Referred By Sarah moser Referred To Contact Radiology Diagnoses Retinal artery occlusion Paroxysmal atrial fibrillation Procedures CT 3D Reconstruction CT Angio Chest CHG 3D RENDERING W/INTERP&POSTPROC DIFF WORK STATION Yeimy Holder PA-C [address] [place] [address] Phone: tel: fax:[phone] mailto:[email or web address] Referral ID Status Reason Start Date Expiration Date Visits Re quested Visits Authorized [id number] Closed 10/17/2024 04/15/2025 1 1 Encounter Details Date Type Department Care Team (Latest Contact Info) Description 10/17/2024 Ancillary Orders [facility] Cardiology [address] [place] [address] Yeimy Holder PA-C [address] [place] [address] [email or web address] Retinal artery occlusion (Primary Dx); Paroxysmal atrial [...] st Contact Info) Description 10/18/2024 Procedure Pass [facility] Radiology [address] [place] [address] 10/23/2024 Procedure Pass [facility] EKG [address] [place] [address] 10/23/2024 Procedure Pass [facility] EKG [address] [place] [address] 11/13/2024 Procedure Pass [place], Ct Scan [address] [address] 11/13/2024 Procedure Pass [facility] 30 [place] [address] 11/16/2024 8:30 AM EDT Appointment [facility] MSK Diagnostic X-ray Imaging, [place] [address] [place] [address] Andrew Lima MD [address] [place] [address] Department [place] [address] [email or web address] 11/16/2024 9:00 AM EDT Office Visit [facility] and [facility] Department of Orthopaedics [address] [place] [address] Andrew Lima MD [address] [place] [address] Department [place] [address] [email or web address] 11/22/2024 1:00 PM EDT Office Visit [facility] Endocrine, Diabetes, and Hypertension [address] [facility] 2nd [place] [address] Svetlana Lucero, PharmD [address] [place] [address] [email or web address] 11/26/2024 1:00 PM EDT Social Work Social Work Department, [facility] [address] [facility] 4th [place] [address] Hermelinda Barajas MD [address] [place] [address] Pedro@[facility] Indigo Du, KIER BOILER [address] [place] [address] [email or web address] 12/04/2024 7:30 AM EDT Blood Draw Laboratory Services, [address], 2nd Floor [place], [place] Hermelinda Barajas MD [address] [place] [address] Pedro@[facility] 12/04/2024 8:30 AM EDT Office Visit [facility] for Thoracic Oncology, [address], 9th [place] [address] Cindi Shell CNP [address] [place] [address] Benedict east@[facility] Hermelinda Barajas MD [address] [place] [address] Pedro@[facility] 12/04/2024 9:30 AM EDT Infusion Infusion Therapy Services [place] [address], [address], 9th [place] [address] Cindi Shell CNP [address] [place] [address] Benedict east@[facility] Patria Luevano, BRIELLE [address] [place] [address] STEFANO@[facility], [facility] 12/25/2024 6:30 AM EDT Blood Draw Laboratory Services, [facility] [address] [facility], 2nd [place] [address] Cindi Shell CNP 450 [place] [address] Benedict east@[facility] 12/25/2024 7:30 AM EDT Office Visit [facility] Thoracic Oncology, [facility] [address] [facility], 9th [place] [address] Cindi Shell CNP 450 [place] [address] Benedict east@[facility] 12/25/2024 8:30 AM EDT Infusion Infusion Therapy Services [place] [address], [address], 9th [place] [address] Cindi Shell CNP 450 [place] [address] Beneditc east@[facility] 01/11/2025 11:45 AM EST Appointment [facility], [address] [address] Hermelinda Barajas MD 450 [facility] 1240 [place] [address] Pedro@[facility] 01/15/2025 7:10 AM EST Blood Draw Laboratory Services, [address], 2nd [place] [address] Cindi Shell CNP 450 [place] [address] Benedict east@[facility] 01/15/2025 8:00 AM EST Office Visit [facility] for [facility], [facility] [address] [facility], 9th [place] [address] Hermelinda Barajas MD 450 [facility] 1240 [place] [address] Pedro@[facility] 01/15/2025 9:00 AM EST Infusion [facility] Services [address] [facility], 9th [place] [address] Cindi Shell CNP 450 [place] [address] Benedict east@[facility] 01/18/2025 7:35 AM EST Hospital Encounter [facility] EKG [address] [place] [address] Guanakito Gallardo MD [address] [facility] [place] [address] [email or web address] Arrived 01/18/2025 8:30 AM EST Appointment [facility] [address] [place] [address] Odalis Jimenez PA-C [address] [facility] 5th [place] [address] [email or web address] 02/01/2025 8:40 AM EST Office Visit [facility] Otolaryngology 45 [facility] ASB2-2 [place] [address] Demetrio Armstrong MD 45 [place] [phone] [email or web address] 02/25/2025 9:30 AM EST Telemedicine [facility] Cardiovascular Clinic [address] [place] [address] Guanakito Gallardo MD [address] [place] [phone] [email or web address] 07/04/2025 10:00 AM EDT Telemedicine [facility] Cardiovascular Clinic [address] [place] [address] Thiago Bean MD [address] [place] [address] [email or web address] 10/18/2025 7:05 AM EDT Hospital Encounter [facility] EKG [address] [place] [address] Guanakito Glalardo MD [address] [place] [phone] [email or web address] Arrived documented as of this encounter Results [...] fibrillation documented in this encounter Care Teams Psychiatric Technician Relationship Specialty Start Date End Date Grecia Bonilla MD [address] [place] [address] [place] [address] PCP - General Internal Medicine 10/13/22 Indigo Du, [facility] [address] [place] [address] [email or web address] [employer]re[employer] Oncology 07/27/22 Hermelinda Barajas MD [address] [place] [address] 1240 [place] [address] Pedro@[facility] Medical Oncology 11/29/22 Cindi Shell CNP [address] [place] [address] Fina@[email or web address] Gerontology 11/29/22 Carlos Alberto King MD, [place] [address] [place] [address] Department of Psychosocial Oncology and Palliative Care, [place] [phone] Jaelyn@[facility] Hospice and Palliative Care 04/05/24 Patria Luevano, BRIELLE [address] [place] [address] [email or web address]@[facility] Primary Infusion Nurse 05/15/24 Jennie Ferreira, BRIELLE [address] [place] [address] [email or web address] Associate Infusion Nurse 10/02/24 documented as of this encounter Additional Source Comments The information contained in this document represents components of the legal health record. It is not the complete legal health record.[facility]
--- OUTSIDE RECORDS SUMMARY | 2024-11-15 07:30 | XMS_ITS | Encounter Summary ---
Author Organization [facility] Address [address] [place] [address] [place] [address] Phone Care Team Providers Care Pocket Creaser Name Role Phone Aubrey Taylor MD Primary Care Provider [phone] [facility] Unavailable [phone] Jn Cline DO Primary Care Provider Aubrey Taylor MD Primary Care Provider [phone] Marilynn Daly NP Primary Care Provider Unavailab Grecia Rosado MD Primary Care Provider Hermelinda Barajas MD Unavailable [phone] Cindi Shell [employer] Unavailable Zuri Ha RN Unavailable Sandra Ruiz@[email or web address] Carlos Alberto King MD, [place] Unavailable Patria Luevano RN Unavailable TOBIAS [email or web address].[facility] Jennie Ferreira RN Unavailable ALISON@ [facility] Encounter Details Date Type Department Care Team (Late st Contact Info) Description 06/15/2022 Procedure Pass [facility] Echocardiography [address] [place] [address] Social History Tobacco Use Types Packs/Day Years Used Date Smoking Tobacco: Former Cigarettes 03 19 2 - 2021 Smokeless Tobacco: Never Sex and [...] st Contact Info) Description 10/18/2024 Procedure Pass [facility] Radiology [address] [place] [address] 10/23/2024 Procedure Pass [facility] EKG [address] [place] [address] 10/23/2024 Procedure Pass [facility] EKG [address] [place] [address] 11/13/2024 Procedure Pass [address] [address] 11/13/2024 Procedure Pass [address] [address] 11/16/2024 8:30 AM EDT Appointment [facility] MSK Diagnostic X-ray Imaging, [place] [address] [place] [address] Andrew Lima MD [address] [place] [address] Department [place] [address] [email or web address] 11/16/2024 9:00 AM EDT Office Visit [facility] Department of Orthopaedics [address] [place] [address] Andrew Lima MD [address] [place] [address] Department [place] [address] [email or web address] 11/22/2024 1:00 PM EDT Office Visit [facility] Endocrine, Diabetes, and Hypertension [address] [facility] 2nd [place] [address] Svetlana Lucero, PharmD [address] [place] [address] [email or web address] 11/26/2024 1:00 PM EDT Social Work Social Work Department, [facility] 300 [facility] 4th [place] [address] Hermelinda Barajas MD 450 [facility] 1240 [place] [address] Pedro@[facility] Indigo Du, [facility] 300 [place] [address] [email or web address] 12/04/2024 7:30 AM EDT Blood Draw Laboratory Services, [address], 2nd Floor [place], [place] Hermelinda Barajas MD [address] [place] [address] [place] [address] Pedro@[facility] 12/04/2024 8:30 AM EDT Office Visit [facility] Center for Thoracic Oncology, [address], 9th [place] [address] Cindi Shell CNP [address] [place] [address] Benedict east@[facility] Hermelinda Barajas MD [address] [place] [address] 1240 [place] [address] Pedro@[facility] 12/04/2024 9:30 AM EDT Infusion Infusion Therapy Services [facility], [facility] 450 [facility], 9th [place] [address] Cindi Shell CNP [address] [place] [address] Benedict east@[facility] Patria Luevano, BRIELLE [address] [place] [address] [email or web address]@[facility] 12/25/2024 6:30 AM EDT Blood Draw Laboratory Services, [address], 2nd [place] [address] Cindi Shell CNP [address] [place] [address] Benedict east@[facility] 12/25/2024 7:30 AM EDT Office Visit [facility] Thoracic Oncology, [address], 9th [place] [address] Cindi Shell CNP [address] [place] [address] Benedict east@[facility] 12/25/2024 8:30 AM EDT Infusion Infusion Therapy Services [place] 9, [address], 9th [place] [address] Cindi Shell CNP [address] [place] [address] Benedict east@[facility] 01/11/2025 11:45 AM EST Appointment [facility], [address] [address] Hermelinda Barajas MD 450 [facility] 1240 [place] [address] Pedro@[facility] 01/15/2025 7:10 AM EST Blood Draw Laboratory Services, [facility] 450 [facility], 2nd [place] [address] Cindi Shell CNP 450 [place] [address] Benedict east@[facility] 01/15/2025 8:00 AM EST Office Visit [facility] for Thoracic On[facility], [facility] 450 [facility], 9th [place] [address] Hermelinda Barajas MD [address] [place] [address] Pedro@[facility] 01/15/2025 9:00 AM EST Infusion Infusion Therapy Services [place] [address], [address], 9th [place] [address] Cindi Shell CNP [address] [place] [address] Benedict east@[facility] 01/18/2025 7:35 AM EST Hospital Encounter [facility] EKG [address] [place] [address] Guanakito Gallardo MD [address] [place] [address] [place] [address] [facility] 01/18/2025 8:30 AM EST Appointment [facility] [address] [place] [address] Odalis Jimenez PA-C 70 [facility] 5th [place] [address] [email or web address] 02/01/2025 8:40 AM EST Office Visit [facility] Otolaryngology 45 [facility]-2 [place] [address] Demetrio Armstrong MD 45 [place] [phone] [email or web address] 02/25/2025 9:30 AM EST Telemedicine [facility] Cardiovascular Clinic [address] [place] [address] Guanakito Gallardo MD [address] [place] [address] [place] [address] 07/04/2025 10:00 AM EDT Telemedicine [facility] Cardiovascular Clinic [address] [place] [address] Thiago Bean MD [address] [place] [address] [email or web address] 10/18/2025 7:05 AM EDT Hospital Encounter [facility] EKG [address] [place] [address] Guanakito Gallardo MD [address] [place] [address] [place] [address] Arrived documented as of this encounter Visit Diagnoses Not on filedocumented in this encounter Additional Health Concerns Infection Onset Date Last Indicated Resolved Time COVID-19 04/06/2023 04/06/2023 04/27/2023 1:21 AM EST CoV-Risk 07/17/2024 07/17/2024 07/28/2024 1:21 AM EDT documented as of this encounter Care Teams Pocket Creaser Relationship Specialty Start Date End Date Aubrey Taylor MD [address] [place] [address] PCP - General Internal Medicine 05/28/22 08/03/22 Jn Cline DO [address] [address] [email or web address] [employer]rec[employer] Engine PCP - General Hospitalist 08/04/22 08/12/22 Aubrey Taylor MD [address] [place] [address] PCP - General Internal Medicine 08/13/22 09/14/22 Marilynn Daly, LAVERNE PCP - General Nurse Practitioner 09/15/22 10/12/22 Grecia Bonilla MD [address] [place] [phone] PCP - General Internal Medicine 10/13/22 Indigo Du, [facility] 300 [place] [address] [email or web address] [employer] Oncology 07/27/22 Hermelinda Barajas MD [address] [place] [address] [place] [address] Pedro@[facility] Medical Oncology 11/29/22 Cindi Shell CNP 450 [facility] [place] [address] EliCj@[email or web address] Gerontology 11/29/22 Zuri Ha, RN [address] [place] [address] Milton@[facility] Primary Infusion Nurse 01/10/24 05/14/24 Carlos Alberto King MD, [place] [address] [place] [address] Department of Psychosocial Oncology and Palliative Care, [place] [address] Jaelyn@[facility] Hospice and Palliative Care 04/05/24 Patria Luevano, BRIELLE [address] [place] [address] STEFANO@[facility] Primary Infusion Nurse 05/15/24 Jennie Ferreira RN [address] [place] [address] ALISON@[email or web address] Associate Infusion Nurse 10/02/24 documented as of this encounter Additional Source Comments The information contained in this document represents components of the legal health record. It is not the complete legal health record.[facility]
--- OUTSIDE RECORDS SUMMARY | 2024-11-15 07:30 | XMS_ITS | Encounter Summary ---
Author Organization [facility] Address [address] [place] [address] Phone Care Team Providers Care Trade Show Coordinator Name Role Phone Indigo DuSW Unavailable Grecia Bonilla MD Primary Care Provider Hermelinda Barajas MD Unavailable [phone] Cindi Shell PREFLIGHT MECHANIC Unavailable Zuri Ha RN Unavailable Sandra Ruiz@[facility] Carlos Alberto King MD, [place] Unavailable Patria Luevano RN Unavailable TOBIAS HYATT@[facility] Jennie Ferreira RN Unavailable ALISON@ [facility] Encounter Details Date Type Department Care Team (Late st Contact Info) Description 03/22/2023 Procedure Pass [facility] Echocardiography [address] [place] [address] Social History Tobacco Use Types Packs/Day Years [...] st Contact Info) Description 10/18/2024 Procedure Pass [facility] Radiology [address] [place] [address] 10/23/2024 Procedure Pass [facility] EKG [address] [place] [address] 10/23/2024 Procedure Pass [facility] EKG [address] [place] [address] 11/13/2024 Procedure Pass [address] [address] 11/13/2024 Procedure Pass [address] [address] 11/16/2024 8:30 AM EDT Appointment [facility] MSK Diagnostic X-ray Imaging, [place] [address] [place] [address] Andrew Lima MD [address] [place] [address] Department [place] [address] [email or web address] 11/16/2024 9:00 AM EDT Office Visit [facility] Department of Orthopaedics [address] [place] [address] Andrew Lima MD [address] [place] [address] Department [place] [address] [email or web address] 11/22/2024 1:00 PM EDT Office Visit [facility] Endocrine, Diabetes, and Hypertension [address] [facility] 2nd [place] [address] Svetlana Lucero, PharmD 75 [place] [address] [email or web address] 11/26/2024 1:00 PM EDT Social Work Social Work Department, [facility] [address] [facility] 4th [place] [address] Hermelinda Barajas MD [address] [address] Pedro@[facility] Indigo Du, [facility] [address] [place] [address] [email or web address] 12/04/2024 7:30 AM EDT Blood Draw Laboratory Services, [address], 2nd [place] [address] Hermelinda Barajas MD [address] [address] Pedro@[facility] 12/04/2024 8:30 AM EDT Office Visit [facility] Center for Thoracic Oncology, [address], 9th [place] [address] Cindi Shell CNP 450 [place] [address] Benedict eats@[facility] Hermelinda Barajas MD 450 [facility] [address] [place] [address] Pedro@[facility] 12/04/2024 9:30 AM EDT Infusion Infusion Therapy Services [facility] 9, [facility] [address] [facility], 9th [place] [address] Cindi Shell CNP [address] [place] [address] eBnedict east@[facility] Patria Luevano, BRIELLE [address] [place] [address] STEFANO@[facility] 12/25/2024 6:30 AM EDT Blood Draw Laboratory Services, [address], 2nd [place] [address] Cindi Shell CNP [address] [place] [address] Beneditc east@[facility] 12/25/2024 7:30 AM EDT Office Visit [facility] Center for Thoracic Oncology, [address], 9th [place] [address] Cindi Shell CNP [address] [place] [address] Benedict east@[facility] 12/25/2024 8:30 AM EDT Infusion Infusion Therapy Services [place] 9, [address], 9th [place] [address] Cindi Shell CNP [address] [place] [address] Benedict east@[facility] 01/11/2025 11:45 AM EST Appointment [facility], Ct Scan - [facility] 30 [place] [address] Hermelinda Barajas MD 450 [facility] 1240 [place] [address] Pedro@[facility] 01/15/2025 7:10 AM EST Blood Draw Laboratory Services, [facility] [address] [facility], 2nd [place] [address] Cindi Shell PREFLIGHT MECHANIC 450 [place] [address] Benedict east@[facility] 01/15/2025 8:00 AM EST Office Visit [facility] Center for Thoracic Oncology, [facility] [address] [facility], 9th [place] [address] Hermelinda Barajas MD 450 [facility] 1240 [place] [address] Pedro@[facility] 01/15/2025 9:00 AM EST Infusion [facility], [facility] [address] [facility], 9th [place] [address] Cindi Shell PREFLIGHT MECHANIC 450 [place] [address] Benedict east@[facility] 01/18/2025 7:35 AM EST Hospital Encounter [facility] EKG [address] [place] [address] Guanakito Gallardo MD [address] [place] [address] [place] [address] Arrived 01/18/2025 8:30 AM EST Appointment [facility] [address] [place] [address] Odalis Jimenez PA-C 70 [facility] 5th [place] [address] [email or web address] 02/01/2025 8:40 AM EST Office Visit [facility] Otolaryngology 45 [facility]2-2 [place] [address] Demetrio Armstrong MD [address] [place] [phone] [email or web address] 02/25/2025 9:30 AM EST Telemedicine [facility] Cardiovascular Clinic [address] [place] [address] Guanakito Gallardo MD [address] [place] [address] [place] [address] [email or web address] 07/04/2025 10:00 AM EDT Telemedicine [facility] Cardiovascular Clinic [address] [place] [address] Thiago Bean MD [address] [place] [address] [email or web address] 10/18/2025 7:05 AM EDT Hospital Encounter [facility] EKG [address] [place] [address] Guanakito Gallardo MD [address] [place] [address] [place] [address] [email or web address] Arrived documented as of this encounter Visit Diagnoses Not on filedocumented in this encounter Additional Health Concerns Infection Onset Date Last Indicated Resolved Time COVID-19 04/06/2023 04/06/2023 04/27/2023 1:21 AM EST CoV-Risk 07/17/2024 07/17/2024 07/28/2024 1:21 AM EDT documented as of this encounter Care Teams Trade Show Coordinator Relationship Specialty Start Date End Date Grecia Bonilla MD [address] [place] [address] [place] [address] PCP - General Internal Medicine 10/13/22 Indigo Du, [facility] [address] [place] [address] [email or web address] Applications Chemist Oncology 07/27/22 Hermelinda Barajas MD [address] [place] [phone] Pedro@[email or web address] Medical Oncology 11/29/22 Cindi Shell CNP [address] [place] [address] [email or web address] Gerontology 11/29/22 Zuri Ha, BRIELLE [address] [place] [address] Milton@[facility] Primary Infusion Nurse 01/10/24 05/14/24 Carlos Alberto King MD, [place] [address] [place] [address] Department of Psychosocial Oncology and Palliative Care, [place] [phone] Jaelyn@[email or web address] Hospice and Palliative Care 04/05/24 Patria Luevano, RN [address] [place] [phone] STEFANO@[facility] Primary Infusion Nurse 05/15/24 Jennie Ferreira, RN [address] [place] [address] ALISON@[facility] Associate Infusion Nurse 10/02/24 documented as of this encounter Additional Source Comments The information contained in this document represents components of the legal health record. It is not the complete legal health record.[facility]
--- OUTSIDE RECORDS SUMMARY | 2024-11-15 07:30 | XMS_ITS | Encounter Summary ---
Author Organization [facility] Address [address] [place] [address] Phone Care Team Providers Care Director Of Grants Name Role Phone Indigo DuSW Unavailable [phone] Grecia Bonilla MD Primary Care Provider Hermelinda Barajas MD Unavailable [phone] Cindi Shell BALING MACHINE OPERATOR Unavailable Zuri Ha RN Unavailable Sandra [email or web address] Carlos Alberto King MD, [place] Unavailable [phone] Patria Luevano RN Unavailable TOBIAS [email or web address] Jennie Ferreira RN Unavailable ALISON@ [email or web address] Encounter Details Date Type Department Care Team (Late st Contact Info) Description 03/22/2023 Procedure Pass [facility] 70 [place] [address] Social History Tobacco Use Types Packs/Day Years [...] st Contact Info) Description 10/18/2024 Procedure Pass [facility] Radiology 70 [place] [address] 10/23/2024 Procedure Pass [facility] EKG 70 [place] [address] 10/23/2024 Procedure Pass [facility] EKG 70 [place] [address] 11/13/2024 Procedure Pass [address] [address] 11/13/2024 Procedure Pass [address] [address] 11/16/2024 8:30 AM EDT Appointment [facility] MSK Diagnostic X-ray Imaging, [place] [address] [place] [address] Andrew Lima MD [address] [place] [address] Department [place] [address] [email or web address] 11/16/2024 9:00 AM EDT Office Visit [facility] Department of Orthopaedics 60 [place] [address] Andrew Lima MD [address] [place] [address] Department [place] [address] [email or web address] 11/22/2024 1:00 PM EDT Office Visit [facility] Endocrine, Diabetes, and Hypertension [address] [facility] 2nd [place] [address] Svetlana Lucero, PharmD 75 [place] [address] [email or web address] 11/26/2024 1:00 PM EDT Social Work Social Work Department, [facility] [address] [address] Hermelinda Barajas MD [address] [address] Pedro@[facility] Indigo Du, [facility] 300 [place] [address] [email or web address] 12/04/2024 7:30 AM EDT Blood Draw Laboratory Services, [address], [address]nd [place], [place] Hermelinda Barajas MD [address] [place] [address] Pedro@[facility] 12/04/2024 8:30 AM EDT Office Visit [facility] Center for Thoracic Oncology, [address], 9th [place] [address] Cindi Shell CNP [address] [place] [address] Benedict east@[facility] Hermelinda Barajas MD [address] [address] Pedro@[facility] 12/04/2024 9:30 AM EDT Infusion Infusion Therapy Services [facility] 9, [address], 9th [place] [address] Cindi Shell CNP [address] [place] [address] Benedict east@[facility] Patria Luevano, BRIELLE [address] [place] [address] [email or web address]@[facility] 12/25/2024 6:30 AM EDT Blood Draw Laboratory Services, [address], 2nd [place] [address] Cindi Shell CNP [address] [place] [address] Benedict east@[facility] 12/25/2024 7:30 AM EDT Office Visit [facility] Center for Thoracic Oncology, [address], 9th [place] [address] Cindi Shell CNP [address] [place] [address] Benedict east@[facility] 12/25/2024 8:30 AM EDT Infusion Infusion Therapy Services [place] 9, [address], 9th [place] [address] Cindi Shell CNP [address] [place] [address] Benedict east@[facility] 01/11/2025 11:45 AM EST Appointment [facility], Ct Scan - [facility] 30 [place] [address] Hermelinda Barajas MD 450 [facility] 1240 [place] [address] Pedro@[facility] 01/15/2025 7:10 AM EST Blood Draw Laboratory Services, [facility] 450 [facility], 2nd [place] [address] Cindi Shell BALING MACHINE OPERATOR 450 [place] [address] Benedict east@[facility] 01/15/2025 8:00 AM EST Office Visit [facility] Center for Thoracic Oncology, [facility] 450 [facility], 9th [place] [address] Hermelinda Barajas MD 450 [facility] 1240 [place] [address] Pedro@[facility] 01/15/2025 9:00 AM EST Infusion Infusion Therapy Services [place] 9, [facility] 450 [facility], 9th [place] [address] Cindi Shell BALING MACHINE OPERATOR 450 [place] [address] Benedict east@[facility] 01/18/2025 7:35 AM EST Hospital Encounter [facility] EKG 70 [place] [address] Guanakito Gallardo MD [address] [place] [address] [place] [address] Arrived 01/18/2025 8:30 AM EST Appointment [facility] 70 [place] [address] Odalis Jimenez PA-C 70 [facility] 5th [place] [address] [email or web address] 02/01/2025 8:40 AM EST Office Visit [facility] Otolaryngology 45 [facility]2-2 [place] [address] Demetrio Armstrong MD 45 [place] [phone] [email or web address] 02/25/2025 9:30 AM EST Telemedicine [facility] Cardiovascular Clinic 70 [place] [address] Guanakito Gallardo MD [address] [place] [address] [place] [address] [email or web address] 07/04/2025 10:00 AM EDT Telemedicine [facility] Cardiovascular Clinic 70 [place] [address] Thiago Bean MD [address] [place] [address] [email or web address] 10/18/2025 7:05 AM EDT Hospital Encounter [facility] EKG 70 [place] [address] Guanakito Gallardo MD [address] [place] [address] [place] [address] [email or web address] Arrived documented as of this encounter Visit Diagnoses Not on filedocumented in this encounter Additional Health Concerns Infection Onset Date Last Indicated Resolved Time COVID-19 04/06/2023 04/06/2023 04/27/2023 1:21 AM EST CoV-Risk 07/17/2024 07/17/2024 07/28/2024 1:21 AM EDT documented as of this encounter Care Teams Director Of Grants Relationship Specialty Start Date End Date Grecia Bonilla MD [address] [place] [address] [place] [address] PCP - General Internal Medicine 10/13/22 Indigo Du, [facility] 300 [place] [address] [email or web address] [employer] Oncology 07/27/22 Hermelinda Barajas MD [address] [place] [address] Pedro@[email or web address] Medical Oncology 11/29/22 Cindi Shell CNP [address] [place] [phone] [email or web address] Gerontology 11/29/22 Zuri Ha RN [address] [place] [address] Milton@[facility] Primary Infusion Nurse 01/10/24 05/14/24 Carlos Alberto King MD, [place] [address] [place] [address] Department of Psychosocial Oncology and Palliative Care, [place] [address] Jaelyn@[facility] Hospice and Palliative Care 04/05/24 Patria Luevano, BRIELLE [address] [place] [address] [email or web address]@[facility] Primary Infusion Nurse 05/15/24 Jennie Ferreira, RN [address] [place] [address] ALISON@[email or web address] Associate Infusion Nurse 10/02/24 documented as of this encounter Additional Source Comments The information contained in this document represents components of the legal health record. It is not the complete legal health record[facility]
--- OUTSIDE RECORDS SUMMARY | 2024-11-15 07:30 | XMS_ITS | Encounter Summary ---
Author Organization [facility] Address [email or web address] [place] [address] Phone Care Team Providers Care Head Girls Golf Coach Name Role Phone Indigo Du SOCIAL ORGANIZATION PROFESSOR Unavailable [phone] Grecia Bonilla MD Primary Care Provider Hermelinda Barajas MD Unavailable [phone] Cindi Shell [facility] Unavailable Carlos Alberto King MD, [place] Unavailable Patria Luevano RN Unavailable TOBIAS [email or web address] Jennie Ferreira RN Unavailable [email or web address]@ [email or web address] Encounter Details Date Type Department Care Team (Late st Contact Info) Description 05/15/2024 Procedure Pass [facility], [address] [address] Social History Tobacco Use Types Packs/Day Years [...] st Contact Info) Description 10/18/2024 Procedure Pass [facility] Radiology [address] [place] [address] 10/23/2024 Procedure Pass [facility] EKG [address] [place] [address] 10/23/2024 Procedure Pass [facility] EKG [address] [place] [address] 11/13/2024 Procedure Pass [address] [address] 11/13/2024 Procedure Pass [address] [address] 11/16/2024 8:30 AM EDT Appointment [facility] MSK Diagnostic X-ray Imaging, [place] [address] [place] [address] Andrew [place] MD [address] [place] [address] Department [place] [address] [email or web address] 11/16/2024 9:00 AM EDT Office Visit [facility] Department of Orthopaedics [address] [place] [address] Andrew [place] MD 75 [facility] Department [place] [address] [email or web address] 11/22/2024 1:00 PM EDT Office Visit [facility] Endocrine, Diabetes, and Hypertension [address] [facility] 2nd [place] [address] Svetlana Lucero, PharmD 75 [place] [address] [email or web address] 11/26/2024 1:00 PM EDT Social Work Social Work Department, [facility] [address] [address] Hermelinda Barajas MD [address] [place] [address] Pedro@[facility] Indigo Du, [address] [address] [email or web address] 12/04/2024 7:30 AM EDT Blood Draw Laboratory Services, [address], [address]nd [place], [place] Hermelinda Barajas MD [address] [place] [address] [place] [address] Pedro@[facility] 12/04/2024 8:30 AM EDT Office Visit [facility] Center for Thoracic Oncology, [facility] [address] [facility], 9th [place] [address] Cindi Shell CNP 450 [place] [address] Benedict east@[facility] Hermelinda Barajas MD [address] [place] [address] 1240 [place] [address] Pedro@[facility] 12/04/2024 9:30 AM EDT Infusion Infusion Therapy Services [place] 9, [address], 9th [place] [address] Cindi Shell CNP [address] [place] [address] Benedict east@[facility] Patria Luevano RN [address] [place] [address] [email or web address]@[facility] 12/25/2024 6:30 AM EDT [facility], [address], 2nd [place] [address] Cindi Shell CNP [address] [place] [address] Benedict east@[facility] 12/25/2024 7:30 AM EDT Office Visit [facility] Thoracic Oncology, [address], 9th [place] [address] Cindi Shell CNP [address] [place] [address] Benedict east@[facility] 12/25/2024 8:30 AM EDT Infusion Infusion [facility] [place] 9, [facility] [address] [facility], 9th [place] [address] Cindi Shell CNP 450 [place] [address] Benedict east@[facility] 01/11/2025 11:45 AM EST Appointment [facility], [address] [address] Hermelinda Barajas MD [address] [place] [address] 1240 [place] [address] Pedro@[facility] 01/15/2025 7:10 AM EST [facility], [address], 2nd [place] [address] Cindi Shell CNP [address] [place] [address] Benedict east@[facility] 01/15/2025 8:00 AM EST Office Visit [facility], [address], 9th [place] [address] Hermelinda Barajas MD [address] [place] [address] [place] [address] Pedro@[facility] 01/15/2025 9:00 AM EST Infusion Infusion Therapy Services [place] 9, [address], 9th [place] [address] Cindi Shell CNP [address] [place] [address] [place] [address] Benedict [email or web address] 01/18/2025 7:35 AM EST Hospital Encounter [facility] EKG [address] [place] [address] Guanakito Gallardo MD [address] [place] [address] [place] [address] [email or web address] Arrived 01/18/2025 8:[address] [facility] [address] [place] [address] Odalis Jimenez PA-C 70 [facility] 5th [place] [address] [email or web address] 02/01/2025 8:40 AM EST Office Visit [facility] Otolaryngology 45 [facility] ASB2-2 [place] [address] Demetrio Armstrong MD 45 [place] [phone] [email or web address] 02/25/2025 9:30 AM EST Telemedicine [facility] Cardiovascular Clinic 70 [place] [address] Guanakito Gallardo MD [address] [place] [address] [place] [address] [email or web address] 07/04/2025 10:00 AM EDT Telemedicine [facility] Cardiovascular Clinic [address] [place] [address] Thiago Bean MD [address] [place] [address] [email or web address] 10/18/2025 7:05 AM EDT Hospital Encounter [facility] EKG [address] [place] [address] Guanakito Glalardo MD [address] [place] [address] [place] [address] [email or web address] Arrived documented as of this encounter Visit Diagnoses Not on filedocumented in this encounter Additional Health Concerns Infection Onset Date Last Indicated Resolved Time CoV-Risk 07/17/2024 07/17/2024 07/28/2024 1:21 AM EDT documented as of this encounter Care Teams Head Girls Golf Coach Relationship Specialty Start Date End Date Grecia Bonilla MD [address] [place] [address] [place] [address] PCP - General Internal Medicine 10/13/22 Indigo Du, [facility] 300 [place] [address] [email or web address] Timber Treating Tank Operator Oncology 07/27/22 Hermelinda Barajas MD [address] [place] [address] [place] [address] [email or web address]@[email or web address] Medical Oncology 11/29/22 Cindi Shell CNP [address] [place] [address] [place] [address] Fina@[email or web address] Gerontology 11/29/22 Carlos Alberto King MD, [place] [address] [place] [address] Department of Psychosocial Oncology and Palliative Care, [place] [address] Jaelyn@[facility] Hospice and Palliative Care 04/05/24 Patria Luevano, BRIELLE [address] [place] [address] [email or web address]@[email or web address] Primary Infusion Nurse 05/15/24 Jennie Ferreira RN [address] [place] [address] [email or web address] Associate Infusion Nurse 10/02/24 documented as of this encounter Additional Source Comments The information contained in this document represents components of the legal health record. It is not the complete legal health record.[facility]
--- OUTSIDE RECORDS SUMMARY | 2024-11-15 07:30 | XMS_ITS | Encounter Summary ---
Author Organization [facility] Address [address] [place] [address] Phone Care Team Providers Care Third Loader Name Role Phone Indigo DuSW Unavailable Grecia Bonilla MD Primary Care Provider Hermelinda Barajas MD Unavailable [phone] Cindi Shell [facility] Unavailable Carlos Alberto King MD, [place] Unavailable Patria Luevano RN Unavailable TOBIAS [email or web address] Jennie Ferreira RN Unavailable [email or web address]@ [email or web address] Encounter Details Date Type Department Care Team (Late st Contact Info) Description 09/25/2024 Procedure Pass [facility] 70 [place] [address] Social History Tobacco Use Types Packs/Day Years [...] st Contact Info) Description 10/18/2024 Procedure Pass [facility] [address] [place] [address] 10/23/2024 Procedure Pass [facility] EKG [address] [place] [address] 10/23/2024 Procedure Pass [facility] EKG 70 [place] [address] 11/13/2024 Procedure Pass [address] [address] 11/13/2024 Procedure Pass [address] [address] 11/16/2024 8:30 AM EDT Appointment [facility] MSK Diagnostic X-ray Imaging, [place] [address] Andrew [place] MD [address] [place] [address] Department [place] [address] [email or web address] 11/16/2024 9:00 AM EDT Office Visit [facility] Department of Orthopaedics 60 [place] [address] Andrew [place] MD 75 [facility] Department [place] [address] [email or web address] 11/22/2024 1:00 PM EDT Office Visit [facility] Endocrine, Diabetes, and Hypertension 221 [facility] 2nd [place] [address] Svetlana Lucero, PharmD 75 [place] [address] [email or web address] 11/26/2024 1:00 PM EDT Social Work Social Work Department, [facility] [address] [address] Hermelinda Barajas MD [address] [place] [address] Pedro@[facility] Indigo Du, [facility] 300 [place] [address] [email or web address] 12/04/2024 7:30 AM EDT Blood Draw Laboratory Services, [address], 2nd [place] [address] Hermelinda Barajas MD [address] [place] [address] [place] [address] Pedro@[facility] 12/04/2024 8:30 AM EDT Office Visit [facility] Center for Thoracic Oncology, [facility] 450 [facility], 9th [place] [address] Cindi Shell CNP [address] [place] [address] Benedict east@[facility] Hermelinda Barajas MD 450 [facility] 1240 [place] [address] [email or web address] 12/04/2024 9:30 AM EDT Infusion Infusion Therapy Services Yawkey 9, [address], 9th [place] [address] Cindi Shell CNP [address] [place] [address] Benedict east@[facility] Patria Luevano, BRIELLE [address] [place] [address] [email or web address]@[facility] 12/25/2024 6:30 AM EDT Blood Draw Laboratory Services, [address], 2nd [place] [address] Cindi Shell CNP [address] [place] [address] Benedict east@[facility] 12/25/2024 7:30 AM EDT Office Visit [facility] Thoracic On[facility], [address], 9th [place] [address] Cindi Shell CNP [address] [place] [address] Benedict east@[facility] 12/25/2024 8:30 AM EDT Infusion Infusion Therapy Services [place] 9, [facility] 450 [facility], 9th [place] [address] Cindi Shell [employer]ER 450 [place] [address] Benedict east@[facility] 01/11/2025 11:45 AM EST Appointment [facility], [address] [address] Hermelinda Barajas MD [address] [place] [address] Pedro@[facility] 01/15/2025 7:10 AM EST Blood Draw Laboratory Services, [address], 2nd [place] [address] Cindi Shell [employer] TEACHER 450 [place] [address] Benedict east@[facility] 01/15/2025 8:00 AM EST Office Visit [facility] Center for Thoracic Oncology, [facility] [address] [facility], 9th [place] [address] Hermelinda Barajas MD [address] [place] [address] Pedro@[facility] 01/15/2025 9:00 AM EST Infusion Infusion Therapy Services Yawmelissa 9, [facility] 450 [facility], 9th [place] [address] Cindi Shell, [employer] TEACHER 450 [facility] [place] [address] Benedict [email or web address] 01/18/2025 7:35 AM EST Hospital Encounter [facility] EKG 70 [place] [address] Guanakito Gallardo MD [address] [place] [address] [place] [address] [email or web address] Arrived 01/18/2025 8:30 AM EST Appointment [facility] 70 [place] [address] Odalis Jimenez PA-C 70 [facility] 5th [place] [address] [email or web address] 02/01/2025 8:40 AM EST Office Visit [facility] Otolaryngology 45 [facility] ASB2-2 [place] [address] Demetrio Armstrong MD 45 [place] [phone] [email or web address] 02/25/2025 9:30 AM EST Telemedicine [facility] Cardiovascular Clinic [address] [place] [address] Guanakito Gallardo MD [address] [place] [address] [email or web address] 07/04/2025 10:00 AM EDT Telemedicine [facility] Cardiovascular Clinic [address] [place] [address] Thiago Bean MD [address] [place] [address] [email or web address] 10/18/2025 7:05 AM EDT Hospital Encounter [facility] EKG 70 [place] [address] Guanakito Gallardo MD [address] [place] [address] [place] [address] [email or web address] Arrived documented as of this encounter Visit Diagnoses Not on filedocumented in this encounter Care Teams Third Loader Relationship Specialty Start Date End Date Grecia Bonilla MD [address] [place] [address] [place] [address] PCP - General Internal Medicine 10/13/22 Indigo Du, [facility] 300 [place] [address] [email or web address] Machine Stone Polisher Apprentice Oncology 07/27/22 Hermelinda Barajas MD [address] [place] [address] Pedro@[facility] Medical Oncology 11/29/22 Cindi Shell CNP [address] [place] [address] Fina@[email or web address] Gerontology 11/29/22 Carlos Alberto King MD, [place] [address] [place] [address] Department of Psychosocial Oncology and Palliative Care, [place] [phone] Jaelyn@[facility] Hospice and Palliative Care 04/05/24 Patria Luevano, BRIELLE [address] [place] [address] [email or web address]@[facility] Primary Infusion Nurse 05/15/24 Jennie Ferreira, RN [address] [place] [address] [email or web address] Associate Infusion Nurse 10/02/24 documented as of this encounter Additional Source Comments The information contained in this document represents components of the legal health record. It is not the complete legal health record.[facility]
--- OUTSIDE RECORDS SUMMARY | 2024-11-15 07:30 | XMS_ITS | Encounter Summary ---
Author Organization [facility] Address [address] [place] [address] Phone Care Team Providers Care Media Sales Executive Name Role Phone Indigo Du BLACK PULLER Unavailable Grecia Bonilla MD Primary Care Provider Hermelinda Barajas MD Unavailable [phone] Cindi Shell LACE PINNER Unavailable Carlos Alberto King MD, [place] Unavailable [phone] Patria Luevano RN Unavailable TOBIAS [email or web address] Jennie Ferreira RN Unavailable [email or web address] Encounter Details Date Type Department Care Team (Late st Contact Info) Description 10/18/2024 Procedure Pass [facility] Electrophysiology Lab [address] [place] [address] Social History Tobacco Use Types Packs/Day Years [...] Procedure Pass [facility] and Womens Radiology [address] [place] [address] 10/23/2024 Procedure Pass [facility] EKG [address] [place] [address] 10/23/2024 Procedure Pass [facility] EKG [address] [place] [address] 11/13/2024 Procedure Pass [address] [address] 11/13/2024 Procedure Pass [address] [address] 11/16/2024 8:30 AM EDT Appointment [facility] MSK Diagnostic X-ray Imaging, [place] [address] Andrew [place] MD [address] [place] [address] Department [place] [address] [email or web address] 11/16/2024 9:00 AM EDT Office Visit [facility] and Women's Department of Orthopaedics 60 [place] [address] Andrew [place] MD 75 [facility] Department [place] [address] [email or web address] 11/22/2024 1:00 PM EDT Office Visit [facility] Endocrine, Diabetes, and Hypertension 221 [facility] 2nd [place] [address] Svetlana Lucero, PharmD 75 [place] [address] nilam@[facility] 11/26/2024 1:00 PM EDT Social Work Social Work Department, [facility] [address] [address] Hermelinda Barajas MD [address] [address] Pedro@[facility] Indigo Du, [facility] 300 [place] [address] christina@[facility] 12/04/2024 7:30 AM EDT Blood Draw Laboratory Services, [address], 2nd [place] [address] Hermelinda Barajas MD 450 [facility] [address] [place] [address] Pedro@[facility] 12/04/2024 8:30 AM EDT Office Visit [facility] Center for Thoracic Oncology, [facility] 450 [facility], 9th [place] [address] Cindi Shell CNP [address] [place] [address] Benedict east@[facility] Hermelinda Barajas MD [address] [place] [address] 1240 [place] [address] Pedro@[facility] 12/04/2024 9:30 AM EDT Infusion Infusion Therapy Services Y[place] 9, [address], 9th [place] [address] Cindi Shell CNP [address] [place] [address] Benedict east@[facility] Patria Luevano, BRIELLE [address] [place] [address] [email or web address]@[email or web address] 12/25/2024 6:30 AM EDT [facility], [address], 2nd [place] [address] Cindi Shell CNP [address] [place] [address] Benedict east@[facility] 12/25/2024 7:30 AM EDT Office Visit [facility] for Thoracic Oncology, [address], 9th [place] [address] Cindi Shell CNP [address] [place] [address] Benedict east@[facility] 12/25/2024 8:30 AM EDT Infusion Infusion Therapy Services [place] 9, [facility] 450 [facility], 9th [place] [address] Cindi Shell, LACE PINNER 450 [place] [address] Benedict east@[facility] 01/11/2025 11:45 AM EST Appointment [facility], [address] [address] Hermelinda Barajas MD [address] [place] [address] [place] [address] Pedro@[facility] 01/15/2025 7:10 AM EST Blood Draw Laboratory Services, [address], 2nd [place] [address] Cindi Shell LACE PINNER 450 [place] [address] Benedict east@[facility] 01/15/2025 8:00 AM EST Office Visit [facility] for Thoracic Oncology, [address], 9th [place] [address] Hermelinda Barajas MD [address] [place] [address] 1240 [place] [address] Pedro@[facility] 01/15/2025 9:00 AM EST Infusion Infusion Therapy Services [facility] 9, [facility] 450 [facility], 9th [place] [address] Cindi Shell LACE PINNER 450 [place] [address] Benedict [email or web address] 01/18/2025 7:35 AM EST Hospital Encounter [facility] EKG [address] [place] [address] Guanakito Gallardo MD [address] [place] [address] [place] [address] [email or web address] Arrived 01/18/2025 8:30 AM EST Appointment [facility] 70 [place] [address] Odalis Jimenez PA-C 70 [facility] 5th [place] [address] [email or web address] 02/01/2025 8:40 AM EST Office Visit [facility] Otolaryngology 45 [facility] ASB2-2 [place] [address] Demetrio Armstrong MD [address] [place] [phone] [email or web address] 02/25/2025 9:[address] [facility] Cardiovascular Clinic [address] [place] [address] Guanakito Gallardo MD [address] [place] [address] [place] [address] 07/04/2025 10:[address] [facility] Cardiovascular Clinic [address] [place] [address] Thiago Bean MD [address] [place] [address] [email or web address] 10/18/2025 7:05 AM EDT Hospital Encounter [facility] EKG 70 [place] [address] Guanakito Gallardo MD [address] [place] [address] [place] [address] [email or web address] Arrived documented as of this encounter Visit Diagnoses Not on filedocumented in this encounter Care Teams Media Sales Executive Relationship Specialty Start Date End Date Grecia Bonilla MD [address] [place] [address] [place] [address] PCP - General Internal Medicine 10/13/22 Indigo Du, [facility] 300 [place] [address] [email or web address] On[facility] 07/27/22 Hermelinda Barajas MD [address] [place] [address] [place] [address] Pedro@[facility] Medical Oncology 11/29/22 Cindi Shell CNP [address] [place] [address] [email or web address] Gerontology 11/29/22 Carlos Alberto King MD, [place] [address] [place] [address] Department of Psychosocial Oncology and Palliative Care, [place] [phone] Jaelyn@[facility] Hospice and Palliative Care 04/05/24 Patria Luevano, BRIELLE [address] [place] [address] [email or web address] Primary Infusion Nurse 05/15/24 Jennie Ferreira, RN [address] [place] [address] [email or web address] Associate Infusion Nurse 10/02/24 documented as of this encounter Additional Source Comments The information contained in this document represents components of the legal health record. It is not the complete legal health record.[facility]
--- OUTSIDE RECORDS SUMMARY | 2024-11-15 07:30 | XMS_ITS | Encounter Summary ---
Author Organization [facility] Address [address] [place] [address] Phone Care Team Providers Care Director Emergency Name Role Phone Indigo Du HYDROGEN BRAZE FURNACE OPERATOR Unavailable Grecia Bonilla MD Primary Care Provider Hermelinda Barajas MD Unavailable [phone] Cindi Shell [facility] Unavailable Carlos Alberto King MD, [place] Unavailable Patria Luevano RN Unavailable TOBIAS [email or web address] Jennie Ferreira RN Unavailable [email or web address] Encounter Details Date Type Department Care Team (Late st Contact Info) Description 05/15/2024 Procedure Pass [facility], Ct Scan - [facility] 30 [place] [address] Social History Tobacco Use Types Packs/Day Years [...] st Contact Info) Description 10/18/2024 Procedure Pass [facility] Radiology [address] [place] [address] 10/23/2024 Procedure Pass [facility] EKG [address] [place] [address] 10/23/2024 Procedure Pass [facility] EKG [address] [place] [address] 11/13/2024 Procedure Pass [address] [address] 11/13/2024 Procedure Pass [address] [address] 11/16/2024 8:30 AM EDT Appointment [facility] MSK Diagnostic X-ray Imaging, [place] [address] [place] [address] Andrew [place] MD [address] [place] [address] Department [place] [address] [email or web address] 11/16/2024 9:00 AM EDT Office Visit [facility] Department of Orthopaedics 60 [place] [address] Andrew [place] MD 75 [facility] Department [place] [address] [email or web address] 11/22/2024 1:00 PM EDT Office Visit [facility] Endocrine, Diabetes, and Hypertension 221 [facility] 2nd [place] [address] Svetlana Lucero, PharmD 75 [place] [address] nilam@[facility] 11/26/2024 1:00 PM EDT Social Work Social Work Department, [facility] [address] [address] Hermelinda Barajas MD [address] [place] [phone] Pedro@[facility] Indigo Du, [address] [address] [email or web address] 12/04/2024 7:30 AM EDT Blood Draw Laboratory Services, [address], [address] [place], [place] Hermelidna Barajas MD [address] [place] [address] [place] [address] Pedro@[facility] 12/04/2024 8:30 AM EDT Office Visit [facility], [facility] 450 [facility], 9th [place] [address] Cindi Shell CNP 450 [place] [address] Benedict east@[facility] Hermelinda Barajas MD [address] [place] [address] 1240 [place] [address] Pedro@[facility] 12/04/2024 9:30 AM EDT Infusion Infusion Therapy Services [facility] 9, [address], 9th [place] [address] Cindi Shell CNP [address] [place] [address] Benedict east@[facility] Patria Luevano, BRIELLE [address] [place] [address] [email or web address]@[facility] 12/25/2024 6:30 AM EDT Blood Draw [facility], [address], 2nd [place] [address] Cindi Shell CNP [address] [place] [address] Benedict east@[facility] 12/25/2024 7:30 AM EDT Office Visit [facility], [address], 9th [place] [address] Cindi Shell CNP [address] [place] [address] Benedict east@[facility] 12/25/2024 8:30 AM EDT Infusion Infusion Therapy Services [place] 9, [facility] 450 [facility], 9th [place] [address] Cindi Shell CNP [address] [place] [address] Benedict east@[facility] 01/11/2025 11:45 AM EST Appointment [facility], [address] [address] Hermelinda Barajas MD [address] [place] [address] Pedro@[facility] 01/15/2025 7:10 AM EST Blood Draw Laboratory Services, [address], 2nd [place] [address] Cindi Shell CNP [address] [place] [address] Bendeict east@[facility] 01/15/2025 8:00 AM EST Office Visit [facility], [address], 9th [place] [address] Hermelinda Barajas MD [address] [place] [address] Pedro@[facility] 01/15/2025 9:00 AM EST Infusion Infusion Therapy Services [facility] 9, [facility] 450 [facility], 9th [place] [address] Cindi Shell CNP 450 [place] [address] Benedict [email or web address] 01/18/2025 7:35 AM EST Hospital Encounter [facility] EKG 70 [place] [address] Guanakito Gallardo MD [address] [place] [address] [place] [address] [email or web address] Arrived 01/18/2025 8:30 AM EST Appointment [facility] and Women's Radiology 70 [place] [address] Odalis Jimenez PA-C 70 [facility] 5th [place] [address] [email or web address] 02/01/2025 8:40 AM EST Office Visit [facility] Otolaryngology 45 [facility] ASB2-2 [place] [address] Demetrio Armstrong MD 45 [place] [phone] [email or web address] 02/25/2025 9:30 AM EST Telemedicine [facility] Cardiovascular Clinic 70 [place] [address] Guanakito Gallardo MD [address] [place] [address] [place] [address] [email or web address] 07/04/2025 10:00 AM EDT Telemedicine [facility] Cardiovascular Clinic [address] [place] [address] Thiago Bean MD [address] [place] [address] [email or web address] 10/18/2025 7:05 AM EDT Hospital Encounter [facility] EKG 70 [place] [address] Guanakito Gallardo MD [address] [place] [address] [place] [address] [email or web address] Arrived documented as of this encounter Visit Diagnoses Not on filedocumented in this encounter Additional Health Concerns Infection Onset Date Last Indicated Resolved Time CoV-Risk 07/17/2024 07/17/2024 07/28/2024 1:21 AM EDT documented as of this encounter Care Teams Director Emergency Relationship Specialty Start Date End Date Grecia Bonilla MD [address] [place] [address] [place] [phone] PCP - General Internal Medicine 10/13/22 Indigo Du, [facility] 300 [place] [address] [email or web address] Mail Truck Driver Oncology 07/27/22 Hermelinda Barajas MD [address] [place] [address] [place] [address] Pedro@[facility] Medical Oncology 11/29/22 Cindi Shell CNP [address] [place] [address] [place] [address] Fina@[email or web address] Gerontology 11/29/22 Carlos Alberto King MD, [place] [address] [place] [address] Department of Psychosocial Oncology and Palliative Care, [place] [phone] Jaelyn@[facility] Hospice and Palliative Care 04/05/24 Patria Luevano, BRIELLE [address] [place] [address] [email or web address] Primary Infusion Nurse 05/15/24 Jennie Ferreira RN [address] [place] [address] [email or web address] Associate Infusion Nurse 10/02/24 documented as of this encounter Additional Source Comments The information contained in this document represents components of the legal health record. It is not the complete legal health record.[facility]
--- OUTSIDE RECORDS SUMMARY | 2024-11-15 07:30 | XMS_ITS | Encounter Summary ---
Author Organization [facility] Address 399 [facility] [address] [place] [address] Phone Care Team Providers Care Hammer Repairer Name Role Phone Indigo DuSW Unavailable [phone] Grecia Bonilla MD Primary Care Provider Hermelinda Barajas MD Unavailable [phone] Cindi Shell PLATFORM SOFTWARE ENGINEER Unavailable [phone] Zuri Ha RN Unavailable Sandra [email or web address] Carlos Alberot King MD, [place] Unavailable [phone] Patria Luevano RN Unavailable TOBIAS [email or web address] Jennie Ferreira RN Unavailable ALISON@ [email or web address] Encounter Details Date Type Department Care Team (Late st Contact Info) Description 03/21/2024 Telephone [facility] Cardiovascular Clinic 70 [place] [address] Thiago Bean MD 75 [place], [place] [phone] [email or web address] Social History Tobacco Use Types Packs/Day [...] [facility] [address] [place] [address] 10/23/2024 Procedure Pass [facility] EKG 70 [place] [address] 10/23/2024 Procedure Pass [facility] EKG 70 [place] [address] 11/13/2024 Procedure Pass [address] [address] 11/13/2024 Procedure Pass [address] [address] 11/16/2024 8:30 AM EDT Appointment [facility] MSK Diagnostic X-ray Imaging, Eve [address] [place] [address] Andrew Lima MD 75 [facility] Department [place] [address] [email or web address] 11/16/2024 9:00 AM EDT Office Visit [facility] Department of Orthopaedics 60 [place] [address] Andrew Lima MD [address] [place] [address] Department [place] [address] [email or web address] 11/22/2024 1:00 PM EDT Office Visit [facility] Endocrine, Diabetes, and Hypertension [address] [address] Svetlana Lucero, PharmD 75 [place] [address] [email or web address] 11/26/2024 1:00 PM EDT Social Work Social Work Department, [facility] [place] [facility] [place] [address] [address] Hermelinda Barajas MD [address] [place] [address] Pedro@[facility] Indigo Du, [facility] 300 [place] [address] [email or web address] 12/04/2024 7:30 AM EDT Blood Draw Laboratory Services, [facility] [place] 450 [facility], [address] [place] [address] Hermelinda Barajas MD 450 [facility] [address] [place] [address] Pedro@[facility] 12/04/2024 8:30 AM EDT Office Visit [facility], [address], 9th [place] [address] Cindi Shell CNP [address] [place] [address] Benedict east@[facility] Hermelinda Barajas MD [address] [place] [address] 1240 [place] [address] Pedro@[facility] 12/04/2024 9:30 AM EDT Infusion Infusion Therapy Services [facility], [address], 9th [place] [address] Cindi Shell CNP [address] [place] [address] Benedict east@[facility] Patria Luevano, BRIELLE [address] [place] [address] [email or web address]@[facility] 12/25/2024 6:30 AM EDT Blood Draw Laboratory Services, [address], 2nd [place] [address] Cindi Shell CNP [address] [place] [address] Benedict east@[facility] 12/25/2024 7:30 AM EDT Office Visit [facility], [address], 9th [place] [address] Cindi Shell CNP 450 [place] [address] Benedict east@[facility] 12/25/2024 8:30 AM EDT Infusion Infusion Therapy Services [place] 9, [address], 9th [place] [address] Cindi Shell CNP 450 [place] [address] Benedict east@[facility] 01/11/2025 11:45 AM EST Appointment [facility], [address] [address] Hermelinda Barajas MD [address] [place] [address] Pedro@[facility] 01/15/2025 7:10 AM EST Blood Draw Laboratory Services, [address], 2nd [place] [address] Cindi Shell CNP 450 [place] [address] Benedict east@[facility] 01/15/2025 8:00 AM EST Office Visit [facility], [address], 9th [place] [address] Hermelinda Barajas MD [address] [place] [address] Pedro@[facility] 01/15/2025 9:00 AM EST Infusion Infusion Therapy Services [place] [address], [facility] [address], 9th [place] [address] Cindi Shell PLATFORM SOFTWARE ENGINEER 450 [place] [address] Benedict [email or web address] 01/18/2025 7:35 AM EST Hospital Encounter [facility] EKG 70 [place] [address] Guanakito Gallardo MD [address] [place] [address] [place] [address] [email or web address] Arrived 01/18/2025 8:30 AM EST Appointment [facility] 70 [place] [address] Odalis Jimenez PA-C 70 [facility] 5th [place] [address] [email or web address] 02/01/2025 8:40 AM EST Office Visit [facility] Otolaryngology 45 [facility]2-2 [place] [address] Demetrio Armstrong MD 45 [place] [phone] [email or web address] 02/25/2025 9:30 AM EST Telemedicine [facility] Cardiovascular Clinic 70 [place] [address] Guankaito Gallardo MD [address] [place] [address] [place] [address] [email or web address] 07/04/2025 10:00 AM EDT Telemedicine [facility] Cardiovascular Clinic 70 [place] [address] Thiago Bean MD [address] [place] [address] [email or web address] 10/18/2025 7:05 AM EDT Hospital Encounter [facility] EKG 70 [place] [address] Guanakito Gallardo MD [address] [place] [address] Card[place] [address] [email or web address] Arrived documented as of this encounter Visit Diagnoses Not on filedocumented in this encounter Additional Health Concerns Infection Onset Date Last Indicated Resolved Time CoV-Risk 07/17/2024 07/17/2024 07/28/2024 1:21 AM EDT documented as of this encounter Care Teams Hammer Repairer Relationship Specialty Start Date End Date Grecia Bonilla MD [address] [place] [address] [place] [address] PCP - General Internal Medicine 10/13/22 Indigo Du, [facility] 300 [place] [address] [email or web address] Inspector [employer]ined [employer] Oncology 07/27/22 Hermelinda Barajas MD [address] [address] Pedro@[facility] Medical Oncology 11/29/22 Cindi Shell CNP 450 [place] [address] Fina@[email or web address] Gerontology 11/29/22 Zuri Ha RN 450 [place] [address] [email or web address]@[facility] Primary Infusion Nurse 01/10/24 05/14/24 Carlos Alberto King MD, [place] [address] [place] [address] Department of Psychosocial Oncology and Palliative Care, [place] [address] Jaelyn@[facility] Hospice and Palliative Care 04/05/24 Patria Luevano, BRIELLE [address] [place] [address] [email or web address]@[facility] Primary Infusion Nurse 05/15/24 Jennie Ferreira RN [address] [place] [address] ALISON@[facility] Associate Infusion Nurse 10/02/24 documented as of this encounter Additional Source Comments The information contained in this document represents components of the legal health record. It is not the complete legal health record.[facility]
--- OUTSIDE RECORDS SUMMARY | 2024-11-15 07:30 | XMS_ITS | Clinical Summary ---
Author Organization [facility] Address [address] [place] [address] Care Team Providers Care Incoming Inspector Name Role Phone Grecia Bonilla MD Primary Care Provider Allergies No known active allergies Medications acetaminophen [...] Panel) 01/31/2022 Colorectal Cancer Screening: Colonoscopy 01/31/2022 HIV Screening 01/31/2022 Social Influencers of Health Screening 01/31/2022 Depression Screening 02/29/2024 Influenza Vaccine (#1) 2024 RSV Immunization Adult [...] Recently Relevant to Health Maintenance Care Teams Incoming Inspector Relationship Specialty Start Date End Date Grecia Bonilla MD [address] [place] [address] [place] [address] PCP - General 05/06/23
--- OUTSIDE RECORDS SUMMARY | 2024-11-15 07:30 | XMS_ITS ---
Author Organization [facility] Address [address] [place] [address] [place] [address] Phone Care Team Providers Care Process Consultant Name Role Phone Indigo Du [facility] Unavailable Grecia Bonilla MD Primary Care Provider Hermelinda Barajas MD Unavailable [phone] Cindi Shell INVESTIGATION MANAGER Unavailable [phone] Carlos Alberto King MD, [place] Unavailable Patria Luevano RN Unavailable TOBIAS [email or web address] Jennie Ferreira RN Unavailable [email or web address]@ [email or web address] Active Problems Patient Care Coordination No te Formatting of this note migh t be different from the original. 06/18/2022 Jesse Patrick gave verbal permission for staff to speak to his life partner, Ana Morton, at any time re diagnosis, treatment and prognosis. Jesse asked for a referral to [facility]. This agency supplies home health aides. Phone no. = [phone] ex. [phone] and Fax = [phone]. SCHEDULING - PLEASE CALL PATIENT TO SCHEDULE [...] of eddie ng, unspecified laterality Treatment Medications Current Day (Day 1 , Cycle 16 - Planned for 12/04/2024) Next Day (Day 1, Cycle 17 - Planned for 12/25/2024) CARBOplatin (PARAPLATIN) IVP B (by AUC) 270 mLpembrolizumab (KEYTRUDA)pembrolizumab (KEYTRUDA) IVPB 200 mg BagPEMEtrexed (ALIMTA)PEMEtrexed (ALIMTA) in NS IVPBPEMEtrexed (ALIMTA) in NS IVPB QS 160 mL pembrolizumab (KEYTRUDA) 200 mg in sodium chloride 0.9% 68 mL IVPBPEMEtrexed disodium (ALIMTA) 1,275 mg in sodium chloride 0.9% 160 mL IVPB pembrolizumab (KEYTRUDA) 200 mg in sodium chloride 0.9% 68 mL IVPBPEMEtrexed disodium (ALIMTA) 1,275 mg in sodium chloride 0.9% 160 mL IVPB VITAMIN B-12 (CYANOCOBALAMIN)* Plan Start Date:01/10/2024 [...]
--- OUTSIDE RECORDS SUMMARY | 2024-11-15 07:30 | XMS_ITS | Encounter Summary ---
Author Organization [facility] Address 399 [facility] [address] [place] [address] Phone Care Team Providers Care Press Breaker Name Role Phone Indigo DuSW Unavailable [phone] Grecia Bonilla MD Primary Care Provider Hermelinda Barajas MD Unavailable [phone] Cindi Shell [facility] Unavailable Carlos Alberto King MD, [place] Unavailable Patria Luevano RN Unavailable TOBIAS [email or web address] Jennie Ferreira RN Unavailable ALISON@ [email or web address] Encounter Details Date Type Department Care Team (Late st Contact Info) Description 08/27/2024 Telephone [facility] Center for Thoracic Oncology, [facility] [facility] [place] [address] [place] [address], 9th [place] [address] Patria Mra, RN [address] [place] [address] [email or web address] Social History Tobacco Use Types [...] st Contact Info) Description 10/18/2024 Procedure Pass [facility] [address] [place] [address] 10/23/2024 Procedure Pass [facility] EKG [address] [place] [address] 10/23/2024 Procedure Pass [facility] EKG 70 [place] [address] 11/13/2024 Procedure Pass [address] [address] 11/13/2024 Procedure Pass [address] [address] 11/16/2024 8:30 AM EDT Appointment [facility] MSK Diagnostic X-ray Imaging, [place] 60 [place] [address] Andrew Lima MD [address] [place] [address] Department [place] [address] [email or web address] 11/16/2024 9:00 AM EDT Office Visit [facility] Department of Orthopaedics 60 [place] [address] Andrew Lima MD [address] [place] [address] Department [place] [address] [email or web address] 11/22/2024 1:00 PM EDT Office Visit [facility] Endocrine, Diabetes, and Hypertension [address] [address] Svetlana Lucero, PharmD 75 [place] [address] [email or web address] 11/26/2024 1:00 PM EDT Social Work Social Work Department, [facility] [place] [facility] [place] [address] [address] Hermelinda Barajas MD [address] [place] [address] Pedro@[facility] Indigo Du, [facility] 300 [place] [address] [email or web address] 12/04/2024 7:30 AM EDT Blood Draw Laboratory Services, [facility] [place] 450 [facility], [address] [place] [address] Hermelinda Barajas MD 450 [facility] [address] [place] [address] Pedro@[facility] 12/04/2024 8:30 AM EDT Office Visit [facility], [address], 9th [place] [address] Cindi Shell CNP [address] [place] [address] Benedict east@[facility] Hermelinda Barajas MD [address] [place] [address] [place] [address] Pedro@[facility] 12/04/2024 9:30 AM EDT Infusion Infusion Therapy Services [facility] 9, [address], 9th [place] [address] Cindi Shell CNP [address] [place] [address] Benedict east@[facility] Patria Luevano, BRIELLE [address] [place] [address] [email or web address]@[facility] 12/25/2024 6:30 AM EDT Blood Draw Laboratory Services, [address], 2nd [place] [address] Cindi Shell CNP [address] [place] [address] Benedict east@[facility] 12/25/2024 7:30 AM EDT Office Visit [facility], [address], 9th [place] [address] Cindi Shell CNP 450 [place] [address] Benedict east@[facility] 12/25/2024 8:30 AM EDT Infusion Infusion Therapy Services [facility] 9, [address], 9th [place] [address] Cindi Shell AUTOMATIC BUFFING WHEEL FORMER 450 [place] [address] Benedict east@[facility] 01/11/2025 11:45 AM EST Appointment [facility], [address] [address] Hermelinda Barajas MD [address] [place] [address] Pedro@[facility] 01/15/2025 7:10 AM EST Blood Draw Laboratory Services, [address], 2nd [place] [address] Cindi Shell CNP [address] [place] [address] Benedict east@[facility] 01/15/2025 8:00 AM EST Office Visit [facility] Center for Thoracic Oncology, [address], 9th [place] [address] Hermelinda Barajas MD [address] [place] [address] Pedro@[facility] 01/15/2025 9:00 AM EST Infusion Infusion Therapy Services [facility] 9, [facility] [address], 9th [place] [address] Cindi Shell CNP 450 [place] [address] CindiMukeshWalter [email or web address] 01/18/2025 7:35 AM EST Hospital Encounter [facility] EKG 70 [place] [address] Guanakito Gallardo MD [address] [place] [address] [place] [address] [email or web address] Arrived 01/18/2025 8:30 AM EST Appointment [facility] 70 [place] [address] Odalis Jimenez PA-C 70 [facility] 5th [place] [address] [email or web address] 02/01/2025 8:40 AM EST Office Visit [facility] Otolaryngology 45 [facility]2-2 [place] [address] Demetrio Armstrong MD 45 [place] [address] [email or web address] 02/25/2025 9:30 AM EST Telemedicine [facility] Cardiovascular Clinic 70 [place] [address] Guanakito Gallardo MD [address] [place] [address] [place] [address] [email or web address] 07/04/2025 10:00 AM EDT Telemedicine [facility] Cardiovascular Clinic 70 [place] [address] Thiago Bean MD 75 [place] [address] [email or web address]@[facility] 10/18/2025 7:05 AM EDT Hospital Encounter [facility] EKG 70 [place] [address] Guanakito Gallardo MD 75 [facility] Card[place] [address] [email or web address] Arrived documented as of this encounter Visit Diagnoses Not on filedocumented in this encounter Care Teams Press Breaker Relationship Specialty Start Date End Date Grecia Bonilla MD [address] [place] [address] [place] [address] PCP - General Internal Medicine 10/13/22 Indigo Du, [facility] 300 [place] [address] [email or web address] [employer]estock [employer] Workers Oncology 07/27/22 Hermelinda Barajas MD [address] [place] [address] Pedro@[email or web address] Medical Oncology 11/29/22 Cindi Shell CNP [address] [place] [address] [place] [address] Fina@[facility] Gerontology 11/29/22 Carlos Alberto King MD, [place] [address] [place] [address] Department of Psychosocial Oncology and Palliative Care, [place] [address] Jaelyn@[facility] Hospice and Palliative Care 04/05/24 Patria Luevano, RN [address] [place] [address] [email or web address]@[email or web address] Primary Infusion Nurse 05/15/24 Jennie Ferreira, BRIELLE [address] [place] [address] [email or web address]@[email or web address] Associate Infusion Nurse 10/02/24 documented as of this encounter Additional Source Comments The information contained in this document represents components of the legal health record. It is not the complete legal health record.[facility]
--- OUTSIDE RECORDS SUMMARY | 2024-11-15 07:30 | XMS_ITS | Encounter Summary ---
Author Organization [facility] Address [address] [place] [address] Phone Care Team Providers Care Net Software Developer Name Role Phone Indigo DuSW Unavailable Grecia Bonilla MD Primary Care Provider Hermelinda Barajas MD Unavailable [phone] Cindi Shell AIRCRAFT INSPECTION RECORD CLERK Unavailable Zuri Ha RN Unavailable Sandra [email or web address] Carlos Alberto King MD, [place] Unavailable Patria Luevano RN Unavailable [email or web address] Jennie Ferreira RN Unavailable [email or web address] Encounter Details Date Type Department Care Team (Late st Contact Info) Description 03/22/2023 Procedure Pass [facility] [address] [place] [address] Social History Tobacco Use Types Packs/Day Years [...] st Contact Info) Description 10/18/2024 Procedure Pass [facility] Radiology [address] [place] [address] 10/23/2024 Procedure Pass [facility] EKG [address] [place] [address] 10/23/2024 Procedure Pass [facility] EKG [address] [place] [address] 11/13/2024 Procedure Pass [address] [address] 11/13/2024 Procedure Pass [address] [address] 11/16/2024 8:30 AM EDT Appointment [facility] MSK Diagnostic X-ray Imaging, [place] [address] [place] [address] Andrew Lima MD [address] [place] [address] Department [place] [address] [email or web address] 11/16/2024 9:00 AM EDT Office Visit [facility] Department of Orthopaedics [address] [place] [address] Andrew Lima MD [address] [place] [address] Department [place] [address] [email or web address] 11/22/2024 1:00 PM EDT Office Visit [facility] Endocrine, Diabetes, and Hypertension [address] [facility] 2nd [place] [address] Svetlana Lucero, PharmD [address] [place] [address] [email or web address] 11/26/2024 1:00 PM EDT Social Work Social Work Department, [facility] [address] [address] Hermelinda Barajas MD [address] [address] [email or web address]@[facility] Indigo Du, [facility] [address] [place] [address] [email or web address] 12/04/2024 7:30 AM EDT Blood Draw Laboratory Services, [address], [address] [place], [place] Hermelinda Barajas MD [address] [place] [id number] Pedro@[facility] 12/04/2024 8:30 AM EDT Office Visit [facility] Thoracic Oncology, [address], 9th [place] [address] Cindi Shell CNP [address] [place] [phone] Benedict [email or web address]@[email or web address] Hermelinda Barajas MD [address] [address] Pedro@[facility] 12/04/2024 9:30 AM EDT Infusion Infusion Therapy Services [place] [address], [address], 9th [place] [address] Cindi Shell CNP [address] [place] [id number] Benedict east@[facility] Patria Luevano, BRIELLE [address] [place] [phone] [email or web address]@[facility] 12/25/2024 6:30 AM EDT Blood Draw Laboratory Services, [address], 2nd [place] [address] Cindi Shell CNP [address] [place] [phone] Benedict east@[facility] 12/25/2024 7:30 AM EDT Office Visit [facility], [address], 9th [place] [address] Cindi Shell CNP [address] [place] [id number] Benedict east@[facility] 12/25/2024 8:30 AM EDT Infusion [facility] [address], [address], 9th [place] [address] Cindi Shell CNP [address] [place] [phone] Benedict east@[facility] 01/11/2025 11:45 AM EST Appointment [facility], Ct Scan - [facility] [address] [place] [address] Hermelinda Barajas MD 450 [facility] 1240 [place] [address] Pedro@[facility] 01/15/2025 7:10 AM EST Blood Draw Laboratory Services, [facility] 450 [facility], 2nd [place] [address] Cindi Shell AIRCRAFT INSPECTION RECORD CLERK [address] [place] [address] Benedict east@[facility] 01/15/2025 8:00 AM EST Office Visit [facility] Center [facility] Thoracic On[facility], [facility] [address] [facility], 9th [place] [address] Hermelinda Barajas MD 450 [facility] 1240 [place] [address] Pedro@[facility] 01/15/2025 9:00 AM EST Infusion [facility], [facility] 450 [facility], 9th [place] [address] Cindi Shell AIRCRAFT INSPECTION RECORD CLERK [address] [place] [address] Benedict east@[facility] 01/18/2025 7:35 AM EST Hospital Encounter [facility] EKG [address] [place] [address] Guanakito Gallardo MD [address] [place] [address] [place] [address] Arrived 01/18/2025 8:30 AM EST Appointment [facility] [address] [place] [address] Odalis Jimenez PA-C 70 [facility] 5th [place] [address] [email or web address] 02/01/2025 8:40 AM EST Office Visit [facility] Otolaryngology 45 [facility]2 [place] [address] Demetrio Armstrong MD [address] [place] [phone] [email or web address] 02/25/2025 9:30 AM EST Telemedicine [facility] Cardiovascular Clinic [address] [place] [address] Guanakito Gallardo MD [address] [place] [address] [place] [address] [email or web address] 07/04/2025 10:00 AM EDT Telemedicine [facility] Cardiovascular Clinic [address] [place] [address] Thiago Bean MD [address] [place] [address] [email or web address] 10/18/2025 7:05 AM EDT Hospital Encounter [facility] EKG [address] [place] [address] Guanakito Gallardo MD [address] [place] [address] [place] [address] [email or web address] Arrived documented as of this encounter Visit Diagnoses Not on filedocumented in this encounter Additional Health Concerns Infection Onset Date Last Indicated Resolved Time COVID-19 04/06/2023 04/06/2023 04/27/2023 1:21 AM EST CoV-Risk 07/17/2024 07/17/2024 07/28/2024 1:21 AM EDT documented as of this encounter Care Teams Net Software Developer Relationship Specialty Start Date End Date Grecia Bonilla MD [address] [place] [address] [place] [address] PCP - General Internal Medicine 10/13/22 Indigo Du, [facility] [address] [place] [address] [email or web address] Group Sales Manager Oncology 07/27/22 Hermelinda Barajas MD [address] [place] [phone] [email or web address] Medical Oncology 11/29/22 Cindi Shell CNP [address] [place] [id number] [email or web address] Gerontology 11/29/22 Zuri Ha RN [address] [place] [id number] Milton@[facility] Primary Infusion Nurse 01/10/24 05/14/24 Carlos Alberto King MD, [place] [address] [place] [address] Department of Psychosocial Oncology and Palliative Care, [place] [address] Jaelyn@[email or web address] Hospice and Palliative Care 04/05/24 Patria Luevano, BRIELLE [address] [place] [phone] [email or web address]@[facility] Primary Infusion Nurse 05/15/24 Jennie Ferreira, RN [address] [place] [phone] [email or web address] Associate Infusion Nurse 10/02/24 documented as of this encounter Additional Source Comments The information contained in this document represents components of the legal health record. It is not the complete legal health record.[facility]
--- OUTSIDE RECORDS SUMMARY | 2024-11-15 07:30 | XMS_ITS | Clinical Summary ---
Author Organization [facility] Address [address] [employer] [facility] [address] [place] [address] Phone Care Team Providers Care Agricultural Produce Packer Name Role Phone Indigo Du INSTRUMENTATION ENGINEER Unavailable [phone] Grecia Baird MD Primary Care Provider Hermelinda Barajas MD Unavailable [phone] Cindi Shell CENTER MEDICAL AND LAB DIRECTOR Unavailable Carlos Alberto King MD, MD Unavailable Patria Luevano RN Unavailable [email or web address] Jennie Ferreira RN Unavailable [email or web address] Allergies Active Allergy Reactions Criticality Noted Date [...] skin daily. 15 mL 3 025 Active Additional Information Patient not taking.Reported on 11/13/2024 insulin pen needles, disposable, 32 gauge x [...] prognosis. Abdirahman asked for a referral to [facility]. This agency supplies home health aides. Phone no. = [phone] ex. [phone] and Fax = [phone]. SCHEDULING - PLEASE CALL PATIENT TO SCHEDULE APPTS, DOES NOT LIKE PATIENT GATEWAY TO SCHEDULE Oxygen supplier is [facility]. and Problem Noted Date Diagnosed Date Atrial fibrillation 10/18/2024 Primary lung adenocarcinoma 06/15/2022 Encounters Date Type Department Care Team Description 11/14/19 8:30 AM EDT Infusion Infusion Therapy [facility], [facility] [address] [place] [address], 9th [place] [address] Hermelinda Barajas MD Devitt, Patria Wood RN Primary adenocarcinoma of lung, unspecified laterality (Primary Dx) 11/14/19 7:30 AM EDT Office Visit [facility], [facility] [address] [facility], 9th [place] [address] Hermelinda Barajas MD Malignant neoplasm of lung, unspecified laterality, unspecified part of lung (Primary Dx); Encounter for long-term (current) use of medications 11/14/19 Telephone [facility] DIABETES MEDICINE [address] [place] [address] Frank Partida, PhD SUZY/ADVICE 11/10/19 9:07 AM EDT - 11/10/19 11:59 PM EDT Hospital Encounter [facility], Pr Scan - [facility] [address] [place] [address] Hermelinda Barajas MD Discharge Disposition: Home or Self Care 11/08/19 Orders Only [facility] Department of Orthopaedics [address] [place] [address] Andrew Lima MD Pain (Primary Dx) 11/06/19 3:30 PM EDT Social Work Social Work Department, [facility] [place] [address] [facility] 4th [place] [address] Hermelinda Barajas MD Levine, Mariah, LICSW 11/02/19 10:00 AM EDT Telemedicine [facility] Cardiovascular Clinic [address] [place] [address] Thiago Bean MD Paroxysmal atrial fibrillation (Primary Dx); Primary hypertension 10/31/19 Telephone [facility] Endocrinology [address] [place] [address] Rika Butts DM Device Orders (Freestyle Nadir 3 plus) 10/26/19 10:00 AM EDT Office Visit [facility] [address] [place] [address] Frank Partida MD Type 2 diabetes mellitus with hyperglycemia, with long-term current use of insulin (Primary Dx); Primary adenocarcinoma of lung, unspecified laterality; Vitamin D deficiency, unspecified; Anemia, unspecified type 10/25/19 Telephone [facility], [facility] [address] [facility], 10th [place] [address] Helena Garnica, BRIELLE Symptom Management 10/24/19 8:30 AM EDT Infusion [facility], [facility] [address] [facility], 9th [place] [address] Hermelinda Barajas MD Viola, Olimpia, BRIELLE Primary adenocarcinoma of lung, unspecified laterality (Primary Dx) 10/24/19 7:30 AM EDT Office Visit [facility], [facility] [address] [facility], 9th [place] [address] Cindi Shell CNP Primary adenocarcinoma of lung, unspecified laterality (Primary Dx) 10/24/19 Orders Only [facility] EKG [address] [place] [address] Guanakito Gallardo MD Paroxysmal atrial fibrillation (Primary Dx) 10/21/19 25 Documentation [facility] Cardiology [address] [place] [address] Geraldine Ngo PA-C 10/20/19 25 Telephone [facility]ovascular Clinic [address] [place] [address] Melanie Cruz PA-C Antonellis/pt returning call 10/20/19 25 Telemedicine [facility] Cardiology [address] [place] [address] Melanie Cruz PA-C Paroxysmal atrial fibrillation (Primary Dx) 10/19/19 25 11:27 AM EDT Anesthesia Event [facility] Electrophysiology Lab [address] [place] [address] Zain Carmona MD Sohn, Sei Yon, MBBS 10/19/19 25 11:10 AM EDT - 10/19/19 25 4:20 PM EDT Surgery [facility] Electrophysiology Lab [address] [place] [address] Guanakito Gallardo MD Ablation, Atrial Fibrillation Paroxysmal 08/21/20 25 9:01 AM EDT - 10/19/19 7:22 PM EDT Hospital Encounter [facility] L2 PRU [address] [place] [address] Guanakito Gallardo MD Discharge Disposition: Home or Self Care 10/19/19 8:49 AM EDT - 10/19/19 9:00 AM EDT Hospital Encounter [facility] Phlebotomy Admitting [address] [place] [address] Discharge Disposition: Home or Self Care 10/19/19 Procedure Pass [facility] Echocardiography [address] [place] [address] 10/19/19 Procedure Pass [facility] Electrophysiology Lab [address] [place] [address] 10/18/19 2:20 PM EDT - 10/18/19 11:59 PM EDT Hospital Encounter [facility] Radiology [address] [place] [address] Yeimy Holder PA-C Discharge Disposition: Home or Self Care 10/18/19 Procedure Pass [facility] Radiology [address] [place] [address] 10/18/19 Ancillary Orders [facility] Cardiology [address] [place] [address] Yeimy Holder PA-C Retinal artery occlusion (Primary Dx); Paroxysmal atrial fibrillation 10/17/19 1:30 PM EDT Social Work Social Work Department, [facility] [place] [address] [facility] 4th [place] [address] Hermelinda Barajas MD Levine, Mariah, [facility] 10/03/19 9:30 AM EDT Infusion In[facility] Therapy [facility], [facility] [address] [facility], 9th [place] [address] Hermelinda Barajas MD Viola, Olimpia, RN Primary adenocarcinoma of lung, unspecified laterality (Primary Dx) 10/03/19 8:30 AM EDT Office Visit [facility], [facility] [address] [facility], 9th [place] [address] Cindi Shell CNP Primary adenocarcinoma of lung, unspecified laterality (Primary Dx) 09/28/19 25 Orders Only [facility] Cardiology [address] [place] [address] Kirsten Coleman PA-C Paroxysmal atrial fibrillation (Primary Dx) 09/28/19 [facility] for [facility] On[facility], [facility] Cancer [address], 9th [place] [address] Cindi Shell CNP Med Change Request 09/26/19 11:30 AM EDT Office Visit [facility] Cardiovascular Clinic [address] [place] [address] Thiago Bean MD Paroxysmal atrial fibrillation (Primary Dx) 09/26/19 25 Procedure Pass [facility] Radiology [address] [place] [address] 09/26/19 25 Orders Only [facility] Cardiology [address] [place] [address] Yeimy Holder PA-C Retinal artery occlusion (Primary Dx); Paroxysmal atrial fibrillation 09/26/19 25 Telephone [facility]ovascular Clinic [address] [place] [address] Thiago Bean MD Activities Specialist Call 09/26/19 Telephone [facility] Clinic [address] [place] [address] Guanakito Gallardo MD Tadros/ Order 09/25/19 1:00 PM EDT Social Work Social Work Department, [facility] [place] [address] [facility] 4th [place] [address] Hermelinda Barajas MD Levine, Mariah INSTRUMENTATION ENGINEER 09/25/19 25 7:42 AM EDT Anesthesia Event [facility] Endoscopy Department [address] [place] [address] Renata Bettencourt MD Brito, Bianca, BRIELLE 09/25/19 25 7:30 AM EDT - 09/25/19 25 8:10 AM EDT Surgery [facility] Endoscopy Department [address] [place] [address] Isaiah Vides MD, MPH ESOPHAGOGASTRODUODENOSCOPY + biopsies stomach and duodenum 09/25/19 6:59 AM EDT - 09/25/19 9:20 AM EDT Hospital Encounter [facility] Endoscopy Department [address] [place] [address] Isaiah Vides MD, MPH Discharge Disposition: Home or Self Care 09/25/19 25 Orders Only [facility] Cardiovascular Clinic [address] [place] [address] Thiago Bean MD 09/25/19 25 Procedure Pass [facility] Endoscopy Department [address] [place] [address] 09/24/19 25 Refill [facility]2 [place] [address] Isaiah Vides MD, MPH Medication Refill 09/24/19 25 Refill [facility], [address], [address] [place] [address] Cindi Shell CNP Medication Refill 09/13/19 Telephone [facility] [address], [address] [place] [address] Helena Garnica, RN Care Coordination; Symptom Management 09/12/19 8:30 AM EDT Infusion [facility] [address], [address]th [place] [address] Hermelinda Barajas MD Devitt, Suzanne Brigid, BRIELLE Primary adenocarcinoma of lung, unspecified laterality (Primary Dx) 09/12/19 25 Orders Only [facility], [address], [address] [place] [address] Hermelinda Barajas MD 09/11/19 25 3:30 PM EDT Telemedicine [facility], [address] [facility], [address]th [place] [address] Hermelinda Barajas MD Primary adenocarcinoma of lung, unspecified laterality (Primary Dx); Encounter for long-term (current) use of medications 09/11/19 12:07 PM EDT - 09/11/19 11:59 PM EDT Hospital Encounter [facility], [address] [address] Hermelinda Barajas MD Discharge Disposition: Home or Self Care 09/11/19 Procedure Pass [address] [address] 09/11/19 Procedure Pass [address] [address] 09/05/19 10:30 AM EDT Social Work Social Work Department, [facility] [address] [facility] [address]th [place] [address] Hermelinda Barajas MD Levine, Mariah [facility] 09/04/19 Telephone [facility], [facility] [address] [facility], [address]th [place] [address] Patria Mar, RN Check in 08/28/19 Telephone [facility], [facility] [address] [facility], [address] [place] [address] Patria Mar, RN 08/28/19 Telephone [facility], [facility] [address] [facility], [address]th [place] [address] Patria Mar, RN [facility] 08/22/19 25 8:30 AM EDT Infusion [facility], [facility] [address] [facility], [address]th [place] [address] Hermelinda Barajas MD Devitt, Suzanne Nina, BRIELLE Primary adenocarcinoma of lung, unspecified laterality (Primary Dx) 08/22/19 7:30 AM EDT Office Visit [facility], [facility] [address] [place] [address], 9th [place] [address] Cindi Shell CNP Primary adenocarcinoma of lung, unspecified laterality (Primary Dx) 07/18/19 Procedure Pass [address] [address] 07/18/19 Procedure Pass [address] [address] from Last 3 Months Family History Medical History Relation Comments Cancer Neg Hx Social History Tobacco Use Types Packs/Day Years Used Date Smoking Tobacco: Former Cigarettes - 2021 Smokeless Tobacco: Never Tobacco Cessation:Counseling [...] 09/24/2024 Are you denied basic needs s [facility] as food, clothing, or medical care? No [...] 11.7 oz) 11/13/2024 7:16 AM EDT Height 193 cm (6' 4 ) 11/01/2024 10:30 AM EDT Body Mass Index 34.54 11/01/2024 10:30 AM EDT Plan of Treatment Upcoming Encounters Date Type Department Care Team (Late st Contact Info) Description 10/18/2024 Procedure Pass [facility] Radiology [address] [place] [address] 10/23/2024 Procedure Pass [facility] EKG [address] [place] [address] 10/23/2024 Procedure Pass [facility] EKG [address] [place] [address] 11/13/2024 Procedure Pass [address] [address] 11/13/2024 Procedure Pass [address] [address] 11/16/2024 8:30 AM EDT Appointment [facility]K Diagnostic X-ray Imaging, [place] [address] [place] [address] Andrew Lima MD [address] [place] [address] Department [place] [address] [email or web address] 11/16/2024 9:00 AM EDT Office Visit [facility] Department of Orthopaedics [address] [place] [address] Andrew Lima MD [address] [facility] Department [place] [address] [email or web address] 11/22/2024 1:00 PM EDT Office Visit [facility] Endocrine, Diabetes, and Hypertension [address] [facility] 2nd [place] [address] Svetlana Lucero, PharmD [address] [place] [address] [email or web address] 11/26/2024 1:00 PM EDT Social Work Social Work Department, [facility] [address] [address] Hermelinda Barajas MD [address] [place] [phone] [email or web address] Indigo Du, [facility] 300 [place] [address] [email or web address] 12/04/2024 7:30 AM EDT Blood Draw Laboratory Services, [address], [address] [place], [place] Hermelinda Barajas MD [address] [place] [phone] [email or web address] 12/04/2024 8:30 AM EDT Office Visit [facility], [facility] [address] [facility], 9th [place] [address] Cindi Shell CNP [address] [place] [address] [email or web address] Hermelinda Baarjas MD 450 [facility] 1240 [place] [address] [email or web address] 12/04/2024 9:30 AM EDT Infusion [facility], [address], 9th [place] [address] Cindi Shell CNP [address] [place] [address] [email or web address] Patria Luevano RN [address] [place] [phone] [email or web address] 12/25/2024 6:30 AM EDT Blood Draw Laboratory Services, [address], 2nd [place] [address] Cindi Shell CNP [address] [place] [address] [email or web address] 12/25/2024 7:30 AM EDT Office Visit [facility], [address], 9th [place] [address] Cindi Shell CNP [address] [place] [address] [email or web address] 12/25/2024 8:30 AM EDT Infusion In[facility] Therapy [facility], [facility] [address] [facility], 9th [place] [address] Cindi Shell CNP [address] [place] [address] [email or web address] 01/11/2025 11:45 AM EST Appointment [facility], [address] [address] Hermelinda Barajas MD [address] [place] [phone] [email or web address] 01/15/2025 7:10 AM EST Blood Draw Laboratory Services, [address], 2nd [place] [address] Cindi Shell CNP [address] [place] [address] Benedict [email or web address] 01/15/2025 8:00 AM EST Office Visit [facility] On[facility], [address], 9th [place] [address] Hermelinda Barajas MD [address] [place] [phone] [email or web address] 01/15/2025 9:00 AM EST Infusion Infusion Therapy Services [facility] 9, [address], 9th [place] [address] Cindi Shell CNP [address] [place] [address] [email or web address] 01/18/2025 7:35 AM EST Hospital Encounter [facility] EKG [address] [place] [address] Guanakito Gallardo MD [address] [place] [address] [place] [address] [email or web address] Arrived 01/18/2025 8:30 AM EST Appointment [facility] [address] [place] [address] Odalis Jimenez PA-C [address] [place] [address] 5th [place] [address] [email or web address] 02/01/2025 8:40 AM EST Office Visit [facility] Otolaryngology 45 [facility] ASB2-2 [place] [address] Demetrio Armstrong MD [address] [place] [phone] [email or web address] 02/25/2025 9:30 AM EST Telemedicine [facility] Cardiovascular Clinic [address] [place] [address] Guanakito Gallardo MD [address] [place] [address] [place] [address] [email or web address] 07/04/2025 10:00 AM EDT Telemedicine [facility] Cardiovascular Clinic [address] [place] [address] Thiago Bean MD [address] [place] [address] [email or web address] 10/18/2025 7:05 AM EDT Hospital Encounter [facility] EKG [address] [place] [address] Guanakito Gallardo MD [address] [place] [address] [place] [address] Arrived Health Maintenance Due Date Last Done Comments LIPID PANEL 1965 DEPRESSION SCREENING 1977 HIV ONE-TIME SCREENING (18-65 YEARS) 1983 COLOGUARD 2010 FIT TEST 2010 FOBT 2010 SIGMOIDOSCOPY 2010 VIRTUAL COLONOSCOPY 2010 ZOSTER VACCINES (2 of 2) 01/17/2024 11/22/2023 INFLUENZA VACCINE (#1) 2024 11/08/2023, 2022 COVID-19 VACCINE (3 - season) 2024 08/13/2020, 07/23/2020 BLOOD PRESSURE 05/13/2025 11/13/2024 SMOKING Hx and SMOKELESS TOBACCO SCREENING 09/25/2025 09/25/2024 CREATININE LEVEL 11/13/2025 11/13/2024, , 10/18/2024, Additional history exists POTASSIUM LEVEL 11/13/2025 11/13/2024, 08/07/2024, 10/18/2024, Additional history exists SCREENING FOR DIABETES 10/26/2027 [...] this topic Medical Devices Implanted Type Area Public Relations Assistant Device Identifier Shelf Expiration Date Model / Serial / Lot Device Watchman 24mm Flx Pro [employer] - [id number] Implanted:Qt y: 1 on 10/18/2024 by Guanakito Gallardo MD at [facility] AYLEEN Occluder N/A: Left Atrial Appendage [employer] [id number] 08/22/2027 [id number] / / [id number] Procedures Procedure Name Priority Date/Time Associated Diagnosis Comments MAGNESIUM Routine 11/13/2024 6:42 AM EDT Primary adenocarcinoma of lung, unspecified laterality TSH Routine 11/13/2024 6:42 AM EDT Primary adenocarcinoma of lung, unspecified laterality Encounter for long-term (current) use of medications FREE T4 Routine 11/13/2024 6:42 AM EDT Primary adenocarcinoma of lung, unspecified laterality Encounter for long-term (current) use of medications COMPREHENSIVE METABOLIC PANEL Routine 6:42 AM EDT Primary adenocarcinoma of lung, unspecified laterality HC BLOOD COUNT COMPLETE AUTO&AUTO DIFRNTL WBC Routine 11/13/2024 6:42 AM EDT Primary adenocarcinoma of lung, unspecified laterality CT ABDOMEN/PELVIS WITH CONTRAST Routine 11/09/2024 9:23 AM EDT Primary adenocarcinoma of lung, unspecified laterality CT CHEST WITH CONTRAST Routine 9:23 AM EDT Primary adenocarcinoma of lung, unspecified laterality POCT GLUCOSE Routine 10/25/2024 10:24 AM EDT [...] 06/27/24 Golytely pr ep instruct sent in gateway-[facility] - Procedure, 75 [facility] ESOPHAGOGASTRODUODENOSCOPY 09/24 7:41 [...] 06/27/24 Golytely pr ep instruct sent in [facility] - Procedure, 75 P[facility] POCT GLUCOSE Routine [...] Relevant to Health Maintenance Results * (ABNORMAL) Comprehensive metabolic panel (11/13/2024 6:42 AM EDT) Only the most recent of6 resultswithin the time period is included. SODIUM 135(L) 136 - 145 mmol/L [facility] POTASSIUM 4.0 3.4 - 5.1 mmol/L [facility] CHLORIDE 97(L) 98 - 107 mmol/L [facility] CO2 22 22 - 31 mmol/L [facility] BUN 24(H) 6 - 23 mg/dL [facility] CREATININE 1.28(H) 0.50 - 1.20 mg/dL [facility] GLUCOSE 157(H) 70 - 100 mg/dL [facility] ALBUMIN 4.8 3.5 - 5.2 g/dL [facility] TOTAL PROTEIN 8.2 6.4 - 8.3 g/dL [facility] CALCIUM 10.2 8.8 - 10.7 mg/dL [facility] ALKALINE PHOSPHATASE 82 40 - 129 U/L [facility] TOTAL BILIRUBIN 0.2 0.2 - 1.2 mg/dL [facility] AST 17 <41 U/L [facility] ALT 40 <42 U/L [facility] GLOBULIN 3.4 2.3 - 4.2 g/dL [facility] EGFR 64 >59 mL/min/1.7 3m2 [facility] Comment:Estimated glomerular filtration rate calculated using the CKD-EPI refit equation. ANION GAP 16 7 - 17 mmol/L [facility] Blood 11/13/2024 6:42 AM EDT 11/13/2024 6:44 AM EDT us Hermelinda Barajas MD LAB BLOOD ORDERABLES Final Resu lt [facility] [address] [place] [phone] * (ABNORMAL) CBC and differential (11/13/2024 6:42 AM EDT) Only the most recent of6 resultswithin the time period is included. WBC 9.51 4.00 - 10.00 K/uL [facility] RBC 3.95(L) 4.50 - 6.40 M/uL [facility] HGB 10.9(L) 13.5 - 18.0 g/dL [facility] HCT 34.6(L) 40.0 - 54.0 % [facility] PLT 289 150 - 450 K/uL [facility] MCV 87.6 80.0 - 100.0 fL [facility] MCH 27.6 27.0 - 32.0 pg [facility] MCHC 31.5(L) 32.0 - 36.0 g/dL [facility] RDW 15.1(H) 11.5 - 14.5 % [facility] MPV 9.5 8.4 - 12.0 fL [facility] NRBC 0.00 0 /100 WBCs [facility] ABSOLUTE NRBC 0.00 0 K/uL [facility] DIFF METHOD Auto [facility] NEUTS 70.9 48.0 - 76.0 % [facility] LYMPHS 20.3 18.0 - 41.0 % [facility] MONOS 8.4 4.0 - 11.0 % [facility] EOS 0.0 0.0 - 5.0 % [facility] BASOS 0.1 0.0 - 1.5 % [facility] % IMMATURE GRANS 0.3 0.0 - 1.0 % [facility] ABSOLUTE NEUTS 6.74 1.92 - 7.60 K/uL [facility] ABSOLUTE LYMPHS 1.93 0.72 - 4.10 K/uL [facility] ABSOLUTE MONOS 0.80 0.16 - 1.10 K/uL [facility] ABSOLUTE EOS 0.00 0.00 - 0.50 K/uL [facility] ABSOLUTE BASOS 0.01 0.00 - 0.15 K/uL [facility] ABS IMMATURE GRANS 0.03 0.00 - 0.10 K/uL [facility] Blood 11/13/2024 6:42 AM EDT 11/13/2024 6:44 AM EDT Hermelinda Barajas MD LAB BLOOD ORDERABLES Final Resu lt Performing Organization Address City/[facility] Co de Phone Number [facility] [facility] [address] [place] [address] * TSH (11/13/2024 6:42 AM EDT) Only the most recent of5 resultswithin the time period is included. TSH 0.46 0.27 - 4.20 uIU/mL [facility] Blood 11/13/2024 6:42 AM EDT 11/13/2024 6:44 AM EDT Hermelinda Barajas MD LAB BLOOD ORDERABLES Final Resu lt Performing Organization Address [facility] de Phone Number [facility] [address] [place] [phone] * Free T4 (11/13/2024 6:42 AM EDT) Only the most recent of5 resultswithin the time period is included. FREE T4 1.1 0.9 - 1.7 ng/dL [facility] Blood 11/13/2024 6:42 AM EDT 11/13/2024 6:44 AM EDT Hermelinda Barajas MD LAB BLOOD ORDERABLES Final Resu lt Performing Organization Address [facility] Co de Phone Number [facility] [address] [place] [phone] * Magnesium (11/13/2024 6:42 AM EDT) Only the most recent of5 resultswithin the time period is included. MAGNESIUM 1.7 1.7 - 2.6 mg/dL [facility] Blood 11/13/2024 6:42 AM EDT 11/13/2024 6:44 AM EDT us Hermelinda Barajas MD LAB BLOOD ORDERABLES Final Resu lt [facility] [address] [place] [address] * CT CHEST WITH CONTRAST (11/09/2024 9:23 [...] CHEST WITH CONTRAST ; CT CHEST WITH [id number]; CT CHEST WITH CONTRAST ; CT CHEST WITH [id number]; CT CHEST PULMONARY ANGIOGRAM (ACUTE) FINDINGS: Devices/Tubes/Lines: [...] residual mediastinal softtissue thickening. Hermelinda Barajas MD IMG CT CHEST Final Result * CT ABDOMEN/PELVIS WITH CONTRAST (11/09/2024 9:23 [...] hypodensities and mildly enlarged small pelvic lymphnodes. Hermelinda Barajas MD IMG CT ABD/PELVIS Final Result * (ABNORMAL) POCT Glucose (10/25/2024 10:24 AM EDT) Only the most recent of4 resultswithin the time period is included. Glucose, POCT 165(H) 70 - 100 mg/dL [facility] 10/25/2024 10:2 4 AM EDT 10/25/2024 10:25 AM EDT Frank Partida MD POINT OF CARE TEST ORDERABLES Fi nal Result Performing Organization Address [facility] Co de Phone Number [address] [address] * (ABNORMAL) POCT Hemoglobin A1c (10/25/2024 10:21 AM EDT) HGB A1C 6.8(H) 4.2 - 5.6 % [facility] Comment:HbA1c levels 5.7-6.4 % represent pre-diabetes, indicating impaired glucose control and an increased risk of developing diabetes. The diagnostic HbA1c level for diabetes is 6.5% or greater. HbA1c levels <4.2% may indicate a hemoglobinopathy or anemia, and an alternative method is recommended to monitor glucose control. 10/25/2024 10:2 1 AM EDT 10/25/2024 10:32 AM EDT Frank Partida MD POINT OF CARE TEST ORDERABLES Fi nal Result Performing Organization Address City/[facility]/ZIP Co de Phone Number [address] [address] * TTE LIMITED W/ COLOR FLOW AND LIMITED DOPPLER (10/18/2024 3:52 PM EDT) Ejection Fraction 60 50 - 75 % Anatomical Region Laterality Modality Heart [facility] Addenda Addendum by Shannon Way MD on [...] BPM [facility] Atrial Rate 93 BPM [facility] [place] Interval 198 ms [facility] QRS Duration 94 ms [facility] QT Interval 368 ms [facility] QTC Interval 457 ms [facility] P [place] 66 degrees [facility] R Wave [place] 32 degrees [facility] T Wave [place] 55 degrees [facility] 10/18/2024 3:09 PM EDT Narrative ADAN_PAMELA - 10/18/2024 4:44 PM EDT Normal sinus rhythm Normal ECG When compared with ECG of 25-Sep-2024 12:22, No significant change was found us Pari Rivera MD ECG ORDERABLES Final Res ult [facility] * ABLATION, ATRIAL FIBRILLATION PAROXYSMAL, LEFT ATRIAL APPENDAGE CLOSURE (TRANSVENOUS) (10/18/2024 2:35 PM EDT) Anatomical Region Laterality Modality BWHEPS Narrative 10/26/2024 10:56 AM EDT Images from the original result were not included. OPERATIVE REPORT Patient: Abdirahman Leon Sr. [facility] Medical Record: [id number] Date of : 1965 Date of Procedure: [...] for atrial fibrillation (pulmonary vein isolation) (CPT 79143). Additional ablation for atrial fibrillation after PVI (left atrial posterior wall isolation) (CPT 34590). Three-dimensional mapping (CPT 84903). Intracardiac echocardiography (CPT 76856). Watchman left atrial appendage occlusion (CPT 12757). ATTENDING Guanakito Gallardo MD BOAT WORKER Pari Rivera MD PATIENT HISTORY: 59 y.o. [...] advanced through the Watchman sheath into the AYLEEN. Angiogram was performed to define the AYLEEN anatomy and localize the AYLEEN os. Multiple views were obtained with ICE (0,45,90,135 degrees). The WATCHMAN sheath was seated into the AYLEEN using fluoroscopic and ELIZABETH guidance over the pigtail. Based on ELIZABETH Measurements of the AYLEEN ostium and depth, a 24mm device was selected. The Pre LAAO Orifice Maximal Width was noted to be 19. The WATCHMAN delivery system was prepared, flushed, cleared of air, and the 'feet' were then aligned with the distal marker band. The pigtail was removed while maintaining positioning of the Watchman Access system, and the Watchman Flex delivery system was then advanced into the LA/AYLEEN through the access sheath via a fluid-fluid [...] sheath distal marker was aligned at the AYLEEN ostium, the deployment knob was advanced forward [...] the implant expanded and conformed to the AYLEEN. Contrast injections and ICE confirmed a well [...] clotting time 337(H) 74 - 137 SEC [facility] 10/18/2024 1:56 PM EDT 10/18/2024 2:22 PM EDT Guanakito Gallardo MD POINT OF CARE TEST ORDE RABLES Final Result [facility] [address] [place] [address] * ANES ETT DOUBLE LUMEN - AIRWAY LDA (10/18/2024 11:45 AM EDT) Narrative Malachi Powers MBBS - 10/18/2024 11:45 AM EDT Malachi Powers MBBS 10/18/2024 12:01 PM Airway Placement Procedure Note: Patient was not difficult to intubate. Procedure performed by: fellow/resident/EMBROIDERY FINISHER Anesthesiologist: Zain Carmona MD Fellow/Resident/EMBROIDERY FINISHER: Malachi Powers MBBS Airway procedure initiated at:10/18/2024 [...] teeth, dentition same as prior to intubation. us Zain Carmona MD [place] ANESTHESIA Final Result * (ABNORMAL) PTT (10/18/2024 8:52 AM EDT) APTT 38.7(H) 24.0 - 37.5 sec [facility] Comment:Emicizumab (Hemlibra ) treatment can result in falsely lowered aPTT test results. 10/18/2024 8:52 AM EDT 10/18/2024 9:04 AM EDT us Guanakito Gallardo MD LAB BLOOD ORDERABLES Fi nal Result [facility] [address] [place] [phone] * (ABNORMAL) PT-INR (10/18/2024 8:52 AM EDT) PT 14.9(H) 10.0 - 13.0 sec [facility] INR 1.3(H) 0.9 - 1.1 [facility] 10/18/2024 8:52 AM EDT 10/18/2024 9:04 AM EDT Guanakito Gallardo MD LAB BLOOD ORDERABLES Fi nal Result Performing Organization Address [facility] Co de Phone Number [facility] [address] [place] [phone] * Type and Screen (ABO,Rh,Antibody Screen) (10/18/2024 8:52 AM EDT) Expiration Date of Sample 10/21/2024 11:59 PM 10/18/2024 10:03 AM EDT [facility] Resulting Agency [facility] ABO Type A 10/18/2024 10:03 AM EDT [facility] Rh Type Positive 10/18/2024 10:03 AM EDT [facility] Antibody Screen Negative 10/18/2024 10:03 AM EDT [facility] 10/18/2024 8:52 AM EDT 10/18/2024 9:07 AM EDT Guanakito Gallardo MD BLOOD BANK TEST ORDERAB LES Final Result Performing Organization Address [facility] Co de Phone Number [facility] [address] [place] [phone] * (ABNORMAL) Basic metabolic panel (10/18/2024 8:52 AM EDT) SODIUM 139 136 - 145 mmol/L [facility] POTASSIUM 4.0 3.4 - 5.1 mmol/L [facility] CHLORIDE 100 98 - 107 mmol/L [facility] CO2 27 22 - 31 mmol/L [facility] BUN 19 6 - 23 mg/dL [facility] CREATININE 1.30(H) 0.50 - 1.20 mg/dL [facility] GLUCOSE 135(H) 70 - 100 mg/dL [facility] CALCIUM 9.8 8.8 - 10.7 mg/dL [facility] EGFR 63 >59 mL/min/1. 73m2 [facility] Comment:Estimated glomerular filtration rate calculated using the CKD-EPI refit equation. ANION GAP 12 7 - 17 mmol/L [facility] 10/18/2024 8:52 AM EDT 10/18/2024 9:04 AM EDT us Guanakito Gallardo MD LAB BLOOD ORDERABLES Fi nal Result [facility] [address] [place] [address] * CT CARDIAC WITH CONTRAST (10/17/2024 2:50 [...] circumference: 56 mm Orifice area: 219 mm2 AYLEEN length: 30mm AYLEEN perpendicular depth from orifice: 15 mm Other [...] circumference: 56 mm Orifice area: 219 mm2 AYLEEN length: 30mm AYLEEN perpendicular depth from orifice: 15 mm Other [...] Godwin Calabrese. Yeimy Holder PA-C IMG CT CARDIAC Final Resul t * CT [...] circumference: 56 mm Orifice area: 219 mm2 AYLEEN length: 30mm AYLEEN perpendicular depth from orifice: 15 mm Other [...] circumference: 56 mm Orifice area: 219 mm2 AYLEEN length: 30mm AYLEEN perpendicular depth from orifice: 15 mm Other [...] MD, MPH - 09/24/2024 7:14 AM EDT [facility] Gastroenterology Patient Name: Abdirahman Leon Procedure Date: 09/24/2024 7:14 AM Date of : 1965 Admit Type: Outpatient Age: 59 Room: 2 Gender: Male Note Status: Finalized Attending MD: Isaiah Vides MD, Instrument Name: [id number] Procedure: Upper GI endoscopy Indications: Abdominal pain, intermittent, none recently Patient Profile: This is a 59 year old male. Refer to note in patient chart for documentation of history and physical. Providers: Isaiah Vides MD, MIGUEL DUNLAP, BRIELLE Referring MD: GRECIA BAIRD M.D. (Referring MD) [...] physician as previously scheduled. Isaiah Vides MD [id number] Isaiah Vides MD 09/24/2024 8:05:03 AM This report has been signed electronically. Number of Addenda: 0 Note Initiated On: 09/24/2024 7:14 AM us Grecia Baird MD GI PROCEDURE ORDERABLE S Final Result * ENDOSCOPY, COLON (09/24/2024 7:13 AM EDT) 09/24/2024 7:13 AM EDT Narrative Transcriptions Isaiah Vides MD, MPH - 09/24/2024 7:13 AM EDT [facility] G[facility]enter[facility] Patient Name: Abdirahman Leon Procedure Date: [...] physician as previously scheduled. Isaiah Vides MD [id number] Isaiah Vides MD 09/24/2024 8:21:50 AM This report has been signed electronically. Number of Addenda: 0 Note Initiated On: 09/24/2024 7:13 AM us Grecia Baird MD GI PROCEDURE ORDERABLE S Final Result * Anatomic Pathology (09/24/2024 12:00 AM EDT) 09/24/2024 09/24/2024 Narrative [facility] - 09/28/2024 12:58 PM EDT CASE: [id number] PATIENT: ABDIRAHMAN LEON Date: 1965 Sex: Male [facility] Department of Pathology [address] [place], [place] [address]IA License No.: [id number] Fishing Rod Mechanic: Dr. Star Adrian M.D., Ph.D. Physician: ISAIAH VIDES MD, MPH Procedure Date: 09/24/2024 Resident: Paul Calderon MD, MS Pathologist: Urmila Das M.D., [facility] PATHOLOGIC DIAGNOSIS: A. DUODENUM BX: Duodenal mucosa [...] related thereto. Final Diagnosis by Urmila Das M.D. [facility], Electronically signed on Saturday September 28, 2024 at 12:57:41PM Isaiah Vides MD, MPH PATHOLOGY ORDERABLES Char l Result [facility] [address] [place] [address] * CT CHEST WITH CONTRAST (09/10/2024 12:27 [...] is of normal size without pericardial effusion. Pngid-wnqvpzppwf-pxcwn aortic arch. No aneurysm. No coronary artery [...] with associated bandlike areas of consolidation. This [id number] x 13 mm, previously 12 x 15 [...] is of normal size without pericardial effusion. Oswlg-vlemttkqxr-frpub aortic arch. No aneurysm. No coronary artery [...] with associated bandlike areas of consolidation. This x 13 mm, previously 12 x 15 [...] 7:26 AM EDT) HCV Ab Negative Negative [facility] Comment: (NOTE) Yaynaa-wq-hllemy ratio is <1.00. Blood 07/20/2022 7:26 AM EDT 07/20/2022 7:35 AM EDT Hermelinda Barajas MD LAB BLOOD ORDERABLES Final Resu lt [facility] [address] [place] [id number] from Last 3 Months or Most Recently Relevant to Health Maintenance [facility] B Member Subscriber Plan / Payer (Ef fective 2023-) Name:Abdirahman Leon Sr. Member ID:[id number] Relation to Subscriber:Self Name:Abdirahman Leon Sr. Subscriber ID:[id number] Payer ID:[id number] Group ID:Not on file Type:Medicare Address: [employer] [facility] [address] [place] [phone] [facility] & B [facility] & B [facility] & B [facility] & B [facility] & B [facility] PART A & B [facility] & B [facility] PART A & B Advance Directives For more information, please contact: [phone] (9AM - 5PM [place], Tuesday-Tuesday) Documents on File Type Date Recorded Patient Circular Saw Edge Fuser Expl anation Healthcare Proxy 10/19/2024 5:09 PM * Full Code (Latest Code Status on File) Date Activated Date Inactivated Comments 10/18/2024 2:58 PM Question Answer Comments Code Status Confirmed With: Patient * Full Code Date Activated Date Inactivated Comments 10/18/2024 2:58 PM 10/18/2024 2:58 PM Question Answer Comments Code Status Confirmed With: Patient Care Teams Agricultural Produce Packer Relationship Specialty Start Date End Date Grecia Baird MD [address] [place] [address] [place] [phone] PCP - General Internal Medicine 10/13/22 Indigo Du, [facility] [address] [place] [address] [email or web address] Review Nurse Oncology 07/27/22 Hermelinda Barajas MD [address] [place] [address] [address] [place] [address] [email or web address] 11/29/22 Cindi Shell CNP [address] [place] [address] [place] [address] [email or web address] 11/29/22 Carlos Alberto King MD, [place] [address] [place] [address] Department of Psychosocial Oncology and Palliative Care, [place] [address] [email or web address] Hospice and Palliative Care 04/05/24 Patria LuevanoBRIELLE [address] [place] [address] [email or web address] Primary Infusion Nurse 05/15/24 Jennie Ferreira RN [address] [place] [id number] [email or web address] Associate Infusion Nurse 10/02/24 Additional Source Comments The information contained in this document represents components of the legal health record. It is not the complete legal health record.[facility]
--- OUTSIDE RECORDS SUMMARY | 2024-11-15 07:30 | XMS_ITS | Encounter Summary ---
Author Organization [facility] Address [address] [place] [address] Phone Care Team Providers Care House Decorator Name Role Phone Indigo Du LINE LEADER Unavailable Grecia Bonilla MD Primary Care Provider Hermelinda Barajas MD Unavailable [phone] Cindi Shell [facility] Unavailable Carlos Alberto [place] MD, [place] Unavailable [phone] Patria Luevano RN Unavailable TOBIAS [email or web address] Jennie Ferreira RN Unavailable ALISON@ [email or web address] Encounter Details Date Type Department Care Team (Late st Contact Info) Description 07/17/2024 Procedure Pass [facility], Ct Scan - [address] [address] Social History Tobacco Use Types Packs/Day Years [...] st Contact Info) Description 10/18/2024 Procedure Pass [facility] Radiology 70 [place] [address] 10/23/2024 Procedure Pass [facility] EKG 70 [place] [address] 10/23/2024 Procedure Pass [facility] EKG 70 [place] [address] 11/13/2024 Procedure Pass [address] [address] 11/13/2024 Procedure Pass [address] [address] 11/16/2024 8:30 AM EDT Appointment [facility] MSK Diagnostic X-ray Imaging, [address] [place] [address] Andrew Lima MD [address] [place] [address] Department [place] [address] [email or web address] 11/16/2024 9:00 AM EDT Office Visit [facility] of Orthopaedics 60 [place] [address] Andrew Lima MD 75 [facility] Department [place] [address] [email or web address] 11/22/2024 1:00 PM EDT Office Visit [facility] Endocrine, Diabetes, and Hypertension [address] [facility] 2nd [place] [address] Svetlana Lucero, PharmD 75 [place] [address] [email or web address] 11/26/2024 1:00 PM EDT Social Work Social Work Department, [facility] [place] [address] [address] Hermelinda Barajas MD [address] [place] [address] Pedro@[facility] Indigo Du, [address] [address] [email or web address] 12/04/2024 7:30 AM EDT Blood Draw Laboratory Services, [address], 2nd [place], [place] Hermelinda Barajas MD [address] [place] [address] [place] [address] Pedro@[facility] 12/04/2024 8:30 AM EDT Office Visit [facility] for Thoracic Oncology, [facility] 450 [facility], 9th [place] [address] Cindi Shell CNP 450 [place] [address] Benedict east@[facility] Hermelinda Barajas MD [address] [place] [address] 1240 [place] [address] Pedro@[facility] 12/04/2024 9:30 AM EDT Infusion Infusion Therapy Services [place] 9, [address], 9th [place] [address] Cindi Shell CNP [address] [place] [address] Benedict east@[facility] Patria Luevano, BRIELLE [address] [place] [address] [email or web address]@[facility] 234 [facility] AT [facility] 12/25/2024 6:30 AM EDT Blood [facility] Services, [address], 2nd [place] [address] Cindi Shell CNP [address] [place] [address] Benedict east@[facility] 12/25/2024 7:30 AM EDT Office Visit [facility], [address], 9th [place] [address] Cindi Shell CNP [address] [place] [address] Benedict east@[facility] 12/25/2024 8:30 AM EDT Infusion Infusion Therapy Services [place] 9, [facility] 450 [facility], 9th [place] [address] Cindi Shell CNP [address] [place] [address] Benedict east@[facility] 01/11/2025 11:45 AM EST Appointment [facility], [address] [address] Hermelinda Barajas MD [address] [place] [address] Pedro@[facility] 01/15/2025 7:10 AM EST Blood Draw [facility], [address], 2nd [place] [address] Cindi Shell CNP [address] [place] [address] Benedict east@[facility] 01/15/2025 8:00 AM EST Office Visit [facility], [address], 9th [place] [address] Hermelinda Barajas MD [address] [place] [address] Pedro@[facility] 01/15/2025 9:00 AM EST Infusion Infusion Therapy Services [place] 9, [facility] 450 [facility], 9th [place] [address] Cindi Shell CNP 450 [place] [address] Benedict [email or web address] 01/18/2025 7:35 AM EST Hospital Encounter [facility] EKG 70 [place] [address] Guanakito Gallardo MD [address] [place] [address] [place] [address] [email or web address] Arrived 01/18/2025 8:30 AM EST Appointment [facility] 70 [place] [address] Odalis Jimenez PA-C 70 [facility] 5th [place] [address] [email or web address] 02/01/2025 8:40 AM EST Office Visit [facility] Otolaryngology 45 [facility] ASB2-2 [place] [address] Demetrio Armstrong MD 45 [place] [phone] [email or web address] 02/25/2025 9:30 AM EST Telemedicine [facility] 70 [place] [address] Guanakito Gallardo MD [address] [place] [address] [place] [address] [email or web address] 07/04/2025 10:00 AM EDT Telemedicine [facility] [address] [place] [address] Thiago Bean MD [address] [place] [address] [email or web address] 10/18/2025 7:05 AM EDT Hospital Encounter [facility] EKG 70 [place] [address] Guanakito Gallardo MD [address] [place] [address] [place] [address] [email or web address] Arrived documented as of this encounter Visit Diagnoses Not on filedocumented in this encounter Additional Health Concerns Infection Onset Date Last Indicated Resolved Time CoV-Risk 07/17/2024 07/17/2024 07/28/2024 1:21 AM EDT documented as of this encounter Care Teams House Decorator Relationship Specialty Start Date End Date Grecia Bonilla MD [address] [place] [address] [place] [phone] PCP - General Internal Medicine 10/13/22 Indigo Du, [facility] 300 [place] [address] [email or web address] Retail Selling Specialist Oncology 07/27/22 Hermelinda Barajas MD [address] [place] [address] [place] [address] Pedro@[facility] Medical Oncology 11/29/22 Cindi Shell CNP [address] [place] [address] [place] [address] [email or web address] Gerontology 11/29/22 Carlos Alberto [place] MD, [place] [address] [place] [address] Department of Psychosocial Oncology and Palliative Care, [place] [phone] Jaelyn@[facility] Hospice and Palliative Care 04/05/24 Patria Luevano, BRIELLE [address] [place] [address] [email or web address] Primary Infusion Nurse 05/15/24 Jennie Ferreira RN [address] [place] [address] [email or web address] Associate Infusion Nurse 10/02/24 documented as of this encounter Additional Source Comments The information contained in this document represents components of the legal health record. It is not the complete legal health record.[facility]
--- OUTSIDE RECORDS SUMMARY | 2024-11-15 07:30 | XMS_ITS | Encounter Summary ---
Author Organization [facility] Address [address] [place] [address] Phone Care Team Providers Care Land Development Project Manager Name Role Phone Indigo DuSW Unavailable [phone] Grecia Bonilla MD Primary Care Provider Hermelinda Barajas MD Unavailable [phone] Cindi Shell EMPLOYMENT CLERK Unavailable Zuri Ha RN Unavailable Sandra [email or web address] Carlos Alberto [place], [place] Unavailable [phone] Patria Luevano RN Unavailable TOBIAS [email or web address] Jennie Ferreira RN Unavailable ALISON@ [email or web address] Encounter Details Date Type Department Care Team (Late st Contact Info) Description 01/10/2024 Procedure Pass [facility], Ct Scan - [facility] 30 [place] [address] Social History Tobacco Use Types Packs/Day Years [...] Pass [facility] Radiology 70 [place] [address] 10/23/2024 Procedure Pass [facility] EKG 70 [place] [address] 10/23/2024 Procedure Pass [facility] EKG 70 [place] [address] 11/13/2024 Procedure Pass [address] [address] 11/13/2024 Procedure Pass [address] [address] 11/16/2024 8:30 AM EDT Appointment [facility] MSK Diagnostic X-ray Imaging, [place] [place] [address] Andrew Lima MD [address] [place] [address] Department [place] [address] [email or web address] 11/16/2024 9:00 AM EDT Office Visit [facility] Department of Orthopaedics 60 [place] [address] Andrew Lima MD [address] [place] [address] Department [place] [address] [email or web address] 11/22/2024 1:00 PM EDT Office Visit [facility] Endocrine, Diabetes, and Hypertension 221 [facility] 2nd [place] [address] Svetlana Lucero, PharmD 75 [place] [address] [email or web address] 11/26/2024 1:00 PM EDT Social Work Social Work Department, [facility] [address] [address] Hermelinda Barajas MD [address] [address] Pedro@[facility] Indigo Du, [address] [address] [email or web address] 12/04/2024 7:30 AM EDT Blood Draw Laboratory Services, [address], 2nd [place] [address] Hermelinda Barajas MD [address] [address] Pedro@[facility] 12/04/2024 8:30 AM EDT Office Visit [facility] for [facility], [address], 9th [place] [address] Cindi Shell CNP 450 [place] [address] Benedict east@[facility] Hermelinda Barajas MD 450 [facility] [address] [place] [address] Pedro@[facility] 12/04/2024 9:30 AM EDT Infusion Infusion Therapy Services Y[facility]key 9, [address], 9th [place] [address] Cindi Shell CNP [address] [place] [address] Benedict east@[facility] Patria Luevano, BRIELLE [address] [place] [address] [email or web address]@[facility] 12/25/2024 6:30 AM EDT Blood Draw Laboratory Services, [address], 2nd [place] [address] Cindi Shell CNP [address] [place] [address] Benedict east@[facility] 12/25/2024 7:30 AM EDT Office Visit [facility], [address], 9th [place] [address] Cindi Shell CNP [address] [place] [address] Benedict east@[facility] 12/25/2024 8:30 AM EDT Infusion Infusion Therapy Services [facility] 9, [address], 9th [place] [address] Cindi Shell CNP [address] [place] [address] Benedict east@[facility] 01/11/2025 11:45 AM EST Appointment [facility], Ct Scan - [facility] 30 [place] [address] Hermelinda Barajas MD 450 [facility] 1240 [place] [address] Pedro@[facility] 01/15/2025 7:10 AM EST Blood Draw Laboratory Services, [facility] 450 [facility], 2nd [place] [address] Cindi Shell CNP 450 [place] [address] Benedict east@[facility] 01/15/2025 8:00 AM EST Office Visit [facility], [facility] 450 [facility], 9th [place] [address] Hermelinda Barajas MD [address] [place] [address] [place] [address] Pedro@[facility] 01/15/2025 9:00 AM EST Infusion Infusion Therapy Services [place] 9, [facility] 450 [facility], 9th [place] [address] Cindi Shell EMPLOYMENT CLERK 450 [place] [address] Benedict east@[facility] 01/18/2025 7:35 AM EST Hospital Encounter [facility] EKG 70 [place] [address] Guanakito Gallardo MD [address] [place] [address] Cardiology Division [place], [place] [phone] Arrived 01/18/2025 8:30 AM EST Appointment [facility] 70 [place] [address] Odalis Jimenez PA-C [address] [facility] 5th [place] [address] [email or web address] 02/01/2025 8:40 AM EST Office Visit [facility] Otolaryngology 45 [facility] ASB2-2 [place] [address] Demetrio Armstrong MD 45 [place] [phone] [email or web address] 02/25/2025 9:[address] [facility] 70 [place] [address] Guanakito Gallardo MD [address] [place] [address] [place] [address] [email or web address] 07/04/2025 10:[address] [facility] 70 [place] [address] Thiago Bean MD [address] [place] [address] [email or web address] 10/18/2025 7:05 AM EDT Hospital Encounter [facility] EKG 70 [place] [address] Guanakito Gallardo MD [address] [place] [address] [place] [address] [email or web address] Arrived documented as of this encounter Visit Diagnoses Not on filedocumented in this encounter Additional Health Concerns Infection Onset Date Last Indicated Resolved Time CoV-Risk 07/17/2024 07/17/2024 07/28/2024 1:21 AM EDT documented as of this encounter Care Teams Land Development Project Manager Relationship Specialty Start Date End Date Grecia Bonilla MD [address] [place] [address] [place] [address] PCP - General Internal Medicine 10/13/22 Indigo Du, [facility] 300 [place] [address] [email or web address] Graduating Machine Operator Oncology 07/27/22 Hermelinda Barajas MD [address] [place] [address] Pedro@[facility] Medical Oncology 11/29/22 Cindi Shell CNP [address] [place] [address] Fina@[email or web address] Gerontology 11/29/22 Zuri Ha, RN [address] [place] [address] Milton@[facility] Primary Infusion Nurse 01/10/24 05/14/24 Carlos Alberto [place] MD, [place] [address] [place] [address] Department of Psychosocial Oncology and Palliative Care, [place] [address] Jaelyn@[facility] Hospice and Palliative Care 04/05/24 Patria Luevano, RN [address] [place] [address] STEFANO@[facility] Primary Infusion Nurse 05/15/24 Jennie Ferreira, BRIELLE [address] [place] [address] [email or web address] Associate Infusion Nurse 10/02/24 documented as of this encounter Additional Source Comments The information contained in this document represents components of the legal health record. It is not the complete legal health record.[facility]
--- OUTSIDE RECORDS SUMMARY | 2024-11-15 07:30 | XMS_ITS | Encounter Summary ---
Author Organization [facility] Address [address] [place] [address] Phone Care Team Providers Care Polishing Machine Operator Helper Name Role Phone Indigo DuSW Unavailable [phone] Grecia Bonilla MD Primary Care Provider Hermelinda Barajas MD Unavailable [phone] Cindi Shell BALL POINTS INSPECTOR Unavailable Zuri Ha RN Unavailable Sandra [email or web address] Carlos Alberto King MD, PA Unavailable Patria Luevano RN Unavailable TOBIAS [email or web address] Jennie Ferreira RN Unavailable ALISON@ [email or web address] Encounter Details Date Type Department Care Team (Late st Contact Info) Description 01/10/2024 Procedure Pass [facility], [address] [address] Social History Tobacco Use Types Packs/Day Years [...] st Contact Info) Description 10/18/2024 Procedure Pass [facility] Radiology [address] [place] [address] 10/23/2024 Procedure Pass [facility] EKG [address] [place] [address] 10/23/2024 Procedure Pass [facility] EKG [address] [place] [address] 11/13/2024 Procedure Pass [address] [address] 11/13/2024 Procedure Pass [address] [address] 11/16/2024 8:30 AM EDT Appointment [facility] MSK Diagnostic X-ray Imaging, [place] [address] [place] [address] Andrew Lima MD [address] [place] [address] Department [place] [address] [email or web address] 11/16/2024 9:00 AM EDT Office Visit [facility] Department of Orthopaedics [address] [place] [address] Andrew Lima MD [address] [place] [address] Department [place] [address] [email or web address] 11/22/2024 1:00 PM EDT Office Visit [facility] Endocrine, Diabetes, and Hypertension [address] [facility] [address] [place] [address] Svetlana Lucero, PharmD 75 [place] [address] [email or web address] 11/26/2024 1:00 PM EDT Social Work Social Work Department, [facility] [address] [address] Hermelinda Barajas MD [address] [address] [email or web address] Indigo Du, [address] [address] [email or web address] 12/04/2024 7:30 AM EDT Blood Draw Laboratory Services, [address], [address] [place] [address] Hermelinda Barajas MD [address] [address] Pedro@[facility] 12/04/2024 8:30 AM EDT Office Visit [facility], [address], 9th [place] [address] Cindi Shell CNP [address] [place] [address] Benedict east@[facility] Hermelinda Barajas MD 450 [facility] [address] [place] [address] Pedro@[facility] 12/04/2024 9:30 AM EDT Infusion Infusion Therapy Services Y[place]key 9, [facility] 450 [facility], 9th [place] [address] Cindi Shell CNP [address] [place] [address] Benedict [email or web address]@[facility] Patria Luevano, BRIELLE 450 [place] [address] [email or web address]@[email or web address] 12/25/2024 6:30 AM EDT Blood Draw Laboratory Services, [address], 2nd [place] [address] Cindi Shell CNP [address] [place] [address] Benedict east@[facility] 12/25/2024 7:30 AM EDT Office Visit [facility], [address], 9th [place] [address] Cindi Shell CNP [address] [place] [address] Benedict east@[facility] 12/25/2024 8:30 AM EDT Infusion Infusion Therapy Services Y[place]key 9, [address], 9th [place] [address] Cindi Shell CNP [address] [place] [address] Benedict east@[facility] 01/11/2025 11:45 AM EST Appointment [facility], Ct Scan - [facility] 30 [place] [address] Hermelinda Barajas MD 450 [facility] 1240 [place] [address] Pedro@[facility] 01/15/2025 7:10 AM EST Blood Draw Laboratory Services, [facility] 450 [facility], 2nd [place] [address] Cindi Shell CNP 450 [place] [address] Benedict east@[facility] 01/15/2025 8:00 AM EST Office Visit [facility]acic [facility], [facility] 450 [facility], 9th [place] [address] Hermelinda Barajas MD [address] [place] [address] 1240 [place] [address] Pedro@[facility] 01/15/2025 9:00 AM EST Infusion Infusion Therapy Services [place] 9, [facility] 450 [facility], 9th [place] [address] Cindi Shell BALL POINTS INSPECTOR 450 [place] [address] Benedict east@[facility] 01/18/2025 7:35 AM EST Hospital Encounter [facility] EKG [address] [place] [address] Guanakito Gallardo MD [address] [place] [address] Card[place] [address] Arrived 01/18/2025 8:30 AM EST Appointment [facility] [address] [place] [address] Odalis Jimenez PA-C 70 [facility] 5th [place] [address] [email or web address] 02/01/2025 8:40 AM EST Office Visit [facility] Otolaryngology 45 [facility] ASB2-2 [place] [address] Demetrio Armstrong MD 45 [place] [phone] [email or web address] 02/25/2025 9:30 AM EST Telemedicine [facility] Cardiovascular Clinic [address] [place] [address] Guanakito Gallardo MD [address] [place] [address] [place] [address] [email or web address] 07/04/2025 10:00 AM EDT Telemedicine [facility] Cardiovascular Clinic [address] [place] [address] Thiago Bean MD [address] [place] [address] [email or web address] 10/18/2025 7:05 AM EDT Hospital Encounter [facility] EKG [address] [place] [address] Guanakito Gallardo MD [address] [place] [address] [place] [address] [email or web address] Arrived documented as of this encounter Visit Diagnoses Not on filedocumented in this encounter Additional Health Concerns Infection Onset Date Last Indicated Resolved Time CoV-Risk 07/17/2024 07/17/2024 07/28/2024 1:21 AM EDT documented as of this encounter Care Teams Polishing Machine Operator Helper Relationship Specialty Start Date End Date Grecia Bonilla MD [address] [place] [address] [place] [phone] PCP - General Internal Medicine 10/13/22 Indigo Du, [facility] 300 [place] [address] [email or web address] Residential Program Worker Oncology 07/27/22 Hermelinda Barajas MD [address] [place] [address] Pedro@[facility] Medical Oncology 11/29/22 Cindi Shell CNP [address] [place] [address] [email or web address] Gerontology 11/29/22 Zuri Ha, RN [address] [place] [address] [email or web address]@[email or web address] Primary Infusion Nurse 01/10/24 05/14/24 Carlos Alberto King MD, [place] [address] [place] [address] Department of Psychosocial Oncology and Palliative Care, [place] [address] Jaelyn@[facility] Hospice and Palliative Care 04/05/24 Patria Luevano, RN [address] [place] [address] [email or web address]@[email or web address] Primary Infusion Nurse 05/15/24 Jennie Ferreira, BRIELLE [address] [place] [address] [email or web address] Associate Infusion Nurse 10/02/24 documented as of this encounter Additional Source Comments The information contained in this document represents components of the legal health record. It is not the complete legal health record.[facility]
--- OUTSIDE RECORDS SUMMARY | 2024-11-15 07:31 | XMS_ITS | Encounter Summary ---
Author Organization [facility] Address [address] [place] [address] Phone Care Team Providers Care Home Appliance Washing Machine Mechanic Name Role Phone Indigo DuSW Unavailable Grecia Bonilla MD Primary Care Provider Hermelinda Barajas MD Unavailable [phone] Cindi Shell IMPROVEMENT ANALYST Unavailable Zuri Ha RN Unavailable Sandra [email or web address] Carlos Alberto King MD, [place] Unavailable [phone] Patria Luevano RN Unavailable TOBIAS [email or web address] Jennie Ferreira RN Unavailable [email or web address]@ [email or web address] Encounter Details Date Type Department Care Team (Late st Contact Info) Description 09/06/2023 Procedure Pass [facility], [facility] [facility] [place] 450 [facility], Floor L1 [place] [address] Social History Tobacco Use Types Packs/Day Years [...] st Contact Info) Description 10/18/2024 Procedure Pass [facility] Radiology [address] [place] [address] 10/23/2024 Procedure Pass [facility] EKG [address] [place] [address] 10/23/2024 Procedure Pass [facility] EKG [address] [place] [address] 11/13/2024 Procedure Pass [address] [address] 11/13/2024 Procedure Pass [address] [address] 11/16/2024 8:30 AM EDT Appointment [facility] MSK Diagnostic X-ray Imaging, [place] [address] [place] [address] Andrew Lima MD [address] [place] [address] Department of [place] [address] [email or web address] 11/16/2024 9:00 AM EDT Office Visit [facility] Department of Orthopaedics [address] [place] [address] Andrew Lima MD [address] [place] [address] Department of [place]opedic [place] [address] [email or web address] 11/22/2024 1:00 PM EDT Office Visit [facility] Endocrine, Diabetes, and Hypertension 221 [facility] 2nd [place] [address] Svetlana Lucero, PharmD 75 [place] [address] [email or web address] 11/26/2024 1:00 PM EDT Social Work Social Work Department, [facility] [address] [address] Hermelinda Barajas MD [address] [address] [email or web address]@[email or web address] Indigo Du, [facility] 300 [place] [address] [email or web address] 12/04/2024 7:30 AM EDT Blood Draw Laboratory Services, [address], [address] [place] [address] Hermelinda Barajas MD [address] [place] [address] Pedro@[email or web address] 12/04/2024 8:30 AM EDT Office Visit [facility] Center for Thoracic Oncology, [facility] 450 [facility], 9th [place] [address] Cindi Shell CNP 450 [place] [address] Benedict east@[facility] Hermelinda Barajas MD [address] [address] [email or web address] 12/04/2024 9:30 AM EDT Infusion Infusion Therapy Services Yawmelissa 9, [address], [address]th [place] [address] Cindi Shell CNP [address] [place] [address] Benedict east@[facility] Patria Luevano, BRIELLE [address] [place] [address] [email or web address]@[facility] 12/25/2024 6:30 AM EDT Blood Draw Laboratory Services, [address], 2nd [place] [address] Cindi Shell CNP [address] [place] [phone] Benedict eats@[facility] 12/25/2024 7:30 AM EDT Office Visit [facility] Center for Thoracic Oncology, [address], [address] [place] [address] Cindi Shell CNP [address] [place] [address] Benedict east@[facility] 12/25/2024 8:30 AM EDT Infusion Infusion Therapy Services Sowmya , [address], 9th [place] [address] Cindi Shell CNP [address] [place] [address] Benedict east@[facility] 01/11/2025 11:45 AM EST Appointment [facility], Ct Scan - [facility] 30 [place] [address] Hermelinda Barajas MD 450 [facility] 1240 [place] [address] Pedro@[email or web address] 01/15/2025 7:10 AM EST Blood Draw Laboratory Services, [facility] 450 [facility], 2nd [place] [address] Cindi Shell, IMPROVEMENT ANALYST 450 [place] [address] Benedict east@[facility] 01/15/2025 8:00 AM EST Office Visit [facility] Center for Thoracic Oncology, [facility] 450 [facility], 9th [place] [address] Hermelinda Barajas MD 450 [facility] [address] [place] [address] Pedro@[facility] 01/15/2025 9:00 AM EST Infusion Infusion Therapy Services Yawkey 9, [facility] 450 [facility], 9th [place] [address] Cindi Shell, IMPROVEMENT ANALYST 450 [place] [address] Benedict east@[facility] 01/18/2025 7:35 AM EST Hospital Encounter [facility] EKG 70 [place] [address] Guanakito Gallardo MD [address] [place] [address] Cardiology [place] [address] Arrived 01/18/2025 8:30 AM EST Appointment [facility] 70 [place] [address] Odlais Jimenez PA-C [address] [facility] 5th [place] [address] [email or web address] 02/01/2025 8:40 AM EST Office Visit [facility] Otolaryngology 45 [facility]2 [place] [address] Demetrio Armstrong MD 45 [place] [phone] [email or web address] 02/25/2025 9:30 AM EST Telemedicine [facility] Cardiovascular Clinic 70 [place] [address] Guanakito Gallardo MD [address] [place] [address] [email or web address] 07/04/2025 10:00 AM EDT Telemedicine [facility] Cardiovascular Clinic 70 [place] [address] Thiago Bean MD [address] [place] [address] [email or web address] 10/18/2025 7:05 AM EDT Hospital Encounter [facility] EKG 70 [place] [address] Guanakito Gallardo MD [address] [place] [address] [email or web address] Arrived documented as of this encounter Visit Diagnoses Not on filedocumented in this encounter Additional Health Concerns Infection Onset Date Last Indicated Resolved Time CoV-Risk 07/17/2024 07/17/2024 07/28/2024 1:21 AM EDT documented as of this encounter Care Teams Home Appliance Washing Machine Mechanic Relationship Specialty Start Date End Date Grecia Bonilla MD [address] [place] [address] [place] [address] PCP - General Internal Medicine 10/13/22 Indigo Du, [facility] 300 [place] [address] [email or web address] Video Coordinator Oncology 07/27/22 Hermelinda Barajas MD [address] [place] [address] Pedro@[email or web address] Medical Oncology 11/29/22 Cindi Shell CNP [address] [place] [address] [email or web address] Gerontology 11/29/22 Zuri Ha, BRIELLE [address] [place] [address] Milton@[email or web address] Primary Infusion Nurse 01/10/24 05/14/24 Carlos Alberto King MD, [place] [address] [place] [address] Department of Psychosocial Oncology and Palliative Care, [place] [phone] Jaelyn@[facility] Hospice and Palliative Care 04/05/24 Patria Luevano, BRIELLE [address] [place] [address] [email or web address]@[email or web address] Primary Infusion Nurse 05/15/24 Jennie Ferreira, RN [address] [place] [address] [email or web address] Associate Infusion Nurse 10/02/24 documented as of this encounter Additional Source Comments The information contained in this document represents components of the legal health record. It is not the complete legal health record.[facility]
--- OUTSIDE RECORDS SUMMARY | 2024-11-15 07:31 | XMS_ITS | Encounter Summary ---
Author Organization [facility] Address [address] [place] [address] Phone Care Team Providers Care Transfer And Line Up Worker Name Role Phone Aubrey Taylor MD Primary Care Provider [phone] [facility] Unavailable [phone] Jn Cline DO Primary Care Provider Aubrey Taylor MD Primary Care Provider [phone] Marilynn Daly NP Primary Care Provider Unavailab Grecia Rosado MD Primary Care Provider Hermelinda Barajas MD Unavailable [phone] Cindi Shell ELECTRONICS SYSTEM MECHANIC Unavailable Zuri Ha RN Unavailable Sandra [email or web address] Carlos Alberto King MD, [place] Unavailable Patria Luevano RN Unavailable TOBIAS [email or web address] Jennie Ferreira RN Unavailable [email or web address] Encounter Details Date Type Department Care Team (Late st Contact Info) Description 06/25/2022 Procedure Pass [facility] [address] [place] [address] Social History Tobacco Use Types Packs/Day Years [...] st Contact Info) Description 10/18/2024 Procedure Pass [facility] Radiology [address] [place] [address] 10/23/2024 Procedure Pass [facility] EKG [address] [place] [address] 10/23/2024 Procedure Pass [facility] EKG [address] [place] [address] 11/13/2024 Procedure Pass [address] [address] 11/13/2024 Procedure Pass [address] [address] 11/16/2024 8:30 AM EDT Appointment [facility] MS Diagnostic X-ray Imaging, [place] [address] [place] [address] Andrew [place] MD [address] [place] [address] Department [place] [address] [email or web address] 11/16/2024 9:00 AM EDT Office Visit [facility] Department of Orthopaedics 60 [place] [address] Andrew [place] MD [address] [place] [address] Department [place] [address] [email or web address] 11/22/2024 1:00 PM EDT Office Visit [facility] Endocrine, Diabetes, and Hypertension 221 [facility] 2nd [place] [address] Svetlana Lucero, PharmD [address] [place] [address] [email or web address] 11/26/2024 1:00 PM EDT Social Work Social Work Department, [facility] [address] [address] Hermelinda Barajas MD [address] [address] Pedro@[facility] Indigo Du, [address] [address] [email or web address] 12/04/2024 7:30 AM EDT Blood Draw Laboratory Services, [address], 2nd [place] [address] Hermelinda Barajas MD [address] [place] [address] Pedro@[facility] 12/04/2024 8:30 AM EDT Office Visit [facility] Center for Thoracic Oncology, [facility] 450 [facility], 9th [place] [address] Cindi Shell CNP [address] [place] [address] Benedict [email or web address] Hermelinda Barajas MD [address] [address] [email or web address] 12/04/2024 9:30 AM EDT Infusion [facility], [address], 9th [place] [address] Cindi Shell CNP [address] [place] [address] Benedict east@[facility] Patria Luevano, BRIELLE [address] [place] [address] [email or web address]@[facility] 12/25/2024 6:30 AM EDT Blood Draw Laboratory Services, [address], 2nd [place] [address] Cindi Shell CNP [address] [place] [address] Benedict east@[facility] 12/25/2024 7:30 AM EDT Office Visit [facility] Center for Thoracic Oncology, [address], 9th [place] [address] Cindi Shell CNP [address] [place] [address] Benedict east@[facility] 12/25/2024 8:30 AM EDT Infusion Infusion Therapy Services [place] [address], [address], 9th [place] [address] Cindi Shell CNP [address] [place] [address] Benedict east@[facility] 01/11/2025 11:45 AM EST Appointment [facility], Ct Scan - [facility] 30 [place] [address] Hermelinda Barajas MD 450 [facility] 1240 [place] [address] Pedro@[facility] 01/15/2025 7:10 AM EST Blood Draw Laboratory Services, [address], 2nd [place] [address] Cindi Shell CNP [address] [place] [address] Benedict east@[facility] 01/15/2025 8:00 AM EST Office Visit [facility] Center for Thoracic Oncology, [facility] 450 [facility], 9th [place] [address] Hermelinda Barajas MD [address] [place] [address] 1240 [place] [address] Pedro@[facility] 01/15/2025 9:00 AM EST Infusion Infusion Therapy Services Yawkey 9, [facility] 450 [facility], 9th [place] [address] Cindi Shell ELECTRONICS SYSTEM MECHANIC 450 [place] [address] Benedict [email or web address]@[facility] 01/18/2025 7:35 AM EST Hospital Encounter [facility] EKG [address] [place] [address] Guanakito Gallardo MD [address] [place] [address] [place] [address] Arrived 01/18/2025 8:30 AM EST Appointment [facility] [address] [place] [address] Odalis Jimenez PA-C 70 [facility] 5th [place] [address] [email or web address] 02/01/2025 8:40 AM EST Office Visit [facility] Otolaryngology 45 [facility]2-2 [place] [address] Demetrio Armstrong MD 45 [place] [phone] [email or web address] 02/25/2025 9:30 AM EST Telemedicine [facility] Cardiovascular Clinic 70 [place] [address] Guankaito Gallardo MD [address] [place] [address] [email or web address] 07/04/2025 10:00 AM EDT Telemedicine [facility] Cardiovascular Clinic [address] [place] [address] Thiago Bean MD [address] [place] [address] [email or web address] 10/18/2025 7:05 AM EDT Hospital Encounter [facility] EKG [address] [place] [address] Guanakito Gallardo MD [address] [place] [address] [email or web address] Arrived documented as of this encounter Visit Diagnoses Not on filedocumented in this encounter Additional Health Concerns Infection Onset Date Last Indicated Resolved Time COVID-19 04/06/2023 04/06/2023 04/27/2023 1:21 AM EST CoV-Risk 07/17/2024 07/17/2024 07/28/2024 1:21 AM EDT documented as of this encounter Care Teams Transfer And Line Up Worker Relationship Specialty Start Date End Date Aubrye Taylor MD [address] [place] [address] PCP - General Internal Medicine 05/28/22 08/03/22 Jn Cline DO [address] [address] [email or web address] PCP - General Hospitalist 08/04/22 08/12/22 [place] [address] PCP - General Internal Medicine 08/13/22 09/14/22 Marilynn Daly NP PCP - General Nurse Practitioner 09/15/22 10/12/22 Grecia Bonilla MD [address] [place] [phone] PCP - General Internal Medicine 10/13/22 Indigo Du, SPECIALIST [employer]EE [employer] [address] [place] [address] [email or web address] Worker'S Compensation Claims Examiner Oncology 07/27/22 Hermelinda Barajas MD [facility] Wendy Shen 1240 [place] [address] [email or web address] Medical Oncology 11/29/22 Cindi Shell CNP [address] [place] [address] Fina@[email or web address] Gerontology 11/29/22 Zuri Ha RN [address] [place] [address] [email or web address] Primary Infusion Nurse 01/10/24 05/14/24 Carlos Alberto King MD, [place] [address] [place] [address] Department of Psychosocial Oncology and Palliative Care, [place] [address] [email or web address] Hospice and Palliative Care 04/05/24 Patria Luevano, BRIELLE [address] [place] [address] [email or web address]@[facility] Primary Infusion Nurse 05/15/24 Jennie Ferreira RN [address] [place] [address] [email or web address] Associate Infusion Nurse 10/02/24 documented as of this encounter Additional Source Comments The information contained in this document represents components of the legal health record. It is not the complete legal health record.[facility]
--- OUTSIDE RECORDS SUMMARY | 2024-11-15 07:31 | XMS_ITS | Encounter Summary ---
Author Organization [facility] Address [address] [place] [address] Phone Care Team Providers Care Commission For The Blind Director Name Role Phone Indigo DuSW Unavailable Grecia Bonilla MD Primary Care Provider Hermelinda Barajas MD Unavailable [phone] Cindi Shell PHYSICAL THERAPY DIRECTOR Unavailable Zuri Ha RN Unavailable Sandra [email or web address] Carlos Alberto King MD, [place] Unavailable Patria Luevano RN Unavailable TOBIAS [email or web address] Jennie Ferreira RN Unavailable [email or web address] Encounter Details Date Type Department Care Team (Late st Contact Info) Description 03/06/2024 Procedure Pass [facility], Ct Scan - [facility] [place] 30 [place] [address] Social History Tobacco Use Types Packs/Day Years [...] 10/18/2024 Procedure Pass [facility] Radiology 70 [place] [address] 10/23/2024 Procedure Pass [facility] EKG 70 [place] [address] 10/23/2024 Procedure Pass [facility] EKG 70 [place] [address] 11/13/2024 Procedure Pass [address] [address] 11/13/2024 Procedure Pass [address] [address] 11/16/2024 8:30 AM EDT Appointment [facility] MSK Diagnostic X-ray Imaging, Eve [address] [place] [address] Andrew [place] MD [address] [place] [address] Department [place] [address] [email or web address] 11/16/2024 9:00 AM EDT Office Visit [facility] Department of Orthopaedics 60 [place] [address] Andrew [place] MD 75 [facility] Department [place] [address] [email or web address] 11/22/2024 1:00 PM EDT Office Visit [facility] Endocrine, Diabetes, and Hypertension 221 [facility] 2nd [place] [address] Svetlana Lucero, RigoD 75 [place] [address] [email or web address] 11/26/2024 1:00 PM EDT Social Work Social Work Department, [facility] 300 [facility] 4th [place] [address] Hermelinda Barajas MD 450 [facility] [address] [place] [address] Pedro@[facility] Indigo Du, [facility] 300 [place] [address] [email or web address] 12/04/2024 7:30 AM EDT Blood Draw Laboratory Services, [facility] 450 [facility], 2nd [place] [address] Hermelinda Barajas MD 450 [facility] 1240 [place] [address] Pedro@[facility] 12/04/2024 8:30 AM EDT Office Visit [facility] Center for Thoracic Oncology, [facility] 450 [facility], 9th [place] [address] Cindi Shell CNP [address] [place] [address] Benedict [email or web address]@[facility] Hermelinda Barajas MD [address] [place] [address] 1240 [place] [address] [email or web address] 12/04/2024 9:30 AM EDT Infusion Infusion Therapy Services Yawkey 9, [address], 9th [place] [address] Cindi Shell CNP [address] [place] [address] Benedict east@[facility] Patria Luevano, BRIELLE [address] [place] [address] [email or web address]@[email or web address] 12/25/2024 6:30 AM EDT Blood Draw Laboratory Services, [address], 2nd [place] [address] Cindi Shell CNP [address] [place] [address] Benedict east@[facility] 12/25/2024 7:30 AM EDT Office Visit [facility], [address], 9th [place] [address] Cindi Shell CNP [address] [place] [address] Benedict east@[facility] 12/25/2024 8:30 AM EDT Infusion Infusion Therapy Services [facility] 9, [facility] [address] [facility], 9th [place] [address] Cindi Shell CNP 450 [place] [address] Benedict east@[facility] 01/11/2025 11:45 AM EST Appointment [address] [address] Hermelinda Barajas MD [address] [place] [address] [place] [address] Pedro@[facility] 01/15/2025 7:10 AM EST Blood Draw Laboratory Services, [address], 2nd [place] [address] Cindi Shell PHYSICAL THERAPY DIRECTOR 450 [place] [address] Benedict east@[facility] 01/15/2025 8:00 AM EST Office Visit [facility] Center for Thoracic Oncology, [facility] [address] [facility], 9th [place] [address] Hermelinda Barajas MD [address] [place] [address] 1240 [place] [address] Pedro@[facility] 01/15/2025 9:00 AM EST Infusion Infusion Therapy Services [facility] 9, [facility] [address] [facility], 9th [place] [address] Cindi Shell, PHYSICAL THERAPY DIRECTOR 450 [place] [address] CindiMukeshWalter [email or web address] 01/18/2025 7:35 AM EST Hospital Encounter [facility] EKG 70 [place] [address] Guanakito Gallardo MD [address] [place] [address] [place] [address] Arrived 01/18/2025 8:30 AM EST Appointment [facility] [address] [place] [address] Odalis Jimenez PA-C [address] [place] [address] 5th [place] [address] [email or web address] 02/01/2025 8:40 AM EST Office Visit [facility] Otolaryngology 45 [facility]2 [place] [address] Demetrio Armstrong MD 45 [place] [phone] [email or web address] 02/25/2025 9:30 AM EST Telemedicine [facility] Cardiovascular Clinic [address] [place] [address] Guanakito Gallardo MD [address] [place] [address] [place] [address] 07/04/2025 10:00 AM EDT Telemedicine [facility] Cardiovascular Clinic [address] [place] [address] Thiago Bean MD [address] [place] [address] [email or web address] 10/18/2025 7:05 AM EDT Hospital Encounter [facility] EKG 70 [place] [address] Guanakito Gallardo MD [address] [place] [address] [place] [address] [email or web address] Arrived documented as of this encounter Visit Diagnoses Not on filedocumented in this encounter Additional Health Concerns Infection Onset Date Last Indicated Resolved Time CoV-Risk 07/17/2024 07/17/2024 07/28/2024 1:21 AM EDT documented as of this encounter Care Teams Commission For The Blind Director Relationship Specialty Start Date End Date Grecia Bonilla MD [address] [place] [address] [place] [address] PCP - General Internal Medicine 10/13/22 Indigo Du, [facility] 300 [place] [address] [email or web address] Roller Printing Supervisor Oncology 07/27/22 Hermelinda Barajas MD [address] [place] [address] Pedro@[facility] Medical Oncology 11/29/22 Cindi Shell CNP [address] [place] [address] Fina@[facility] Gerontology 11/29/22 Zuri Ha, BRIELLE [address] [place] [address] Milton@[facility] Primary Infusion Nurse 01/10/24 05/14/24 Carlos Alberto King MD, [place] [address] Department of Psychosocial Oncology and Palliative Care, [place] [address] Jaelyn@[email or web address] Hospice and Palliative Care 04/05/24 Patria Luevano, BRIELLE [address] [place] [address] [email or web address]@[email or web address] Primary Infusion Nurse 05/15/24 Jennie Ferreira, BRIELLE [address] [place] [address] [email or web address] Associate Infusion Nurse 10/02/24 documented as of this encounter Additional Source Comments The information contained in this document represents components of the legal health record. It is not the complete legal health record.[facility]
--- OUTSIDE RECORDS SUMMARY | 2024-11-15 07:31 | XMS_ITS | Encounter Summary ---
Author Organization [facility] Address [address] [place] [address] Phone Care Team Providers Care Turbo Operator Name Role Phone Indigo Du ART MODEL Unavailable Grecia Bonilla MD Primary Care Provider Hermelinda Barajas MD Unavailable [phone] Cindi Shell [facility] Unavailable Carlos Alberto King MD, [place] Unavailable [phone] Patria Luevano RN Unavailable TOBIAS [email or web address] Jennie Ferreira RN Unavailable ALISON@ [email or web address] Encounter Details Date Type Department Care Team (Late st Contact Info) Description 07/17/2024 Procedure Pass [facility], Ct Scan - [address] [address] Social History Tobacco Use Types Packs/Day Years [...] Procedure Pass [facility] Radiology [address] [place] [address] 10/23/2024 Procedure Pass [facility] EKG [address] [place] [address] 10/23/2024 Procedure Pass [facility] EKG [address] [place] [address] 11/13/2024 Procedure Pass [address] [address] 11/13/2024 Procedure Pass [address] [address] 11/16/2024 8:30 AM EDT Appointment [facility] MSK Diagnostic X-ray Imaging, [place] [address] [place] [address] Andrew Lima MD [address] [place] [address] Department [place] [address] [email or web address] 11/16/2024 9:00 AM EDT Office Visit [facility] of Orthopaedics [address] [place] [address] Andrew Lima MD 75 [facility] Department [place] [address] [email or web address] 11/22/2024 1:00 PM EDT Office Visit [facility] Endocrine, Diabetes, and Hypertension [address] [facility] 2nd [place] [address] Svetlana Lucero, PharmD 75 [place] [address] [email or web address] 11/26/2024 1:00 PM EDT Social Work Social Work Department, [facility] [address] [address] Hermelinda Barajas MD [address] [place] [address] Pedro@[facility] Indigo Du, [address] [address] [email or web address] 12/04/2024 7:30 AM EDT Blood Draw Laboratory Services, [address], 2nd [place], [place] Hermelinda Barajas MD [address] [place] [address] [place] [address] Pedro@[facility] 12/04/2024 8:30 AM EDT Office Visit [facility] Center for Thoracic Oncology, [facility] [address] [facility], 9th [place] [address] Cindi Shell CNP 450 [place] [address] Benedict east@[email or web address] Hermelinda Barajas MD [address] [place] [address] [place] [address] Pedro@[facility] 12/04/2024 9:30 AM EDT Infusion Infusion Therapy Services Y[place] 9, [address], 9th [place] [address] Cindi Shell CNP [address] [place] [address] Benedict east@[facility] Patria Luevano, BRIELEL [address] [place] [address] [email or web address]@[facility] 12/25/2024 6:30 AM EDT Blood Draw Laboratory Services, [address], 2nd [place] [address] Cindi Shell CNP [address] [place] [address] Benedict east@[facility] 12/25/2024 7:30 AM EDT Office Visit [facility] Center for Thoracic Oncology, [address], 9th [place] [address] Cindi Shell CNP [address] [place] [address] Benedict east@[facility] 12/25/2024 8:30 AM EDT Infusion Infusion Therapy Services [place] 9, [facility] [address] [facility], 9th [place] [address] Cindi Shell CNP [address] [place] [address] Benedict east@[facility] 01/11/2025 11:45 AM EST Appointment [facility], [address] [address] Hermelinda Barajas MD [address] [place] [address] Pedro@[facility] 01/15/2025 7:10 AM EST Blood Draw Laboratory Services, [address], 2nd [place] [address] Cindi Shell CNP [address] [place] [address] Benedict east@[facility] 01/15/2025 8:00 AM EST Office Visit [facility] Center for Thoracic Oncology, [address], 9th [place] [address] Hermelinda Barajas MD [address] [place] [address] Pedro@[facility] 01/15/2025 9:00 AM EST Infusion Infusion Therapy Services [place] 9, [facility] [address] [facility], 9th [place] [address] Cindi Shell CNP 450 [place] [address] Benedict [email or web address] 01/18/2025 7:35 AM EST Hospital Encounter [facility] EKG 70 [place] [address] Guanakito Gallardo MD [address] [place] [address] [place] [address] [email or web address] Arrived 01/18/2025 8:[address] [facility] Rad[facility] [address] [place] [address] Odalis Jimenez PA-C 70 [facility] 5th [place] [address] [email or web address] 02/01/2025 8:40 AM EST Office Visit [facility] Otolaryngology 45 [facility] ASB2-2 [place] [address] Demetrio Armstrong MD 45 [place] [phone] [email or web address] 02/25/2025 9:30 AM EST Telemedicine [facility] Cardiovascular Clinic 70 [place] [address] Guanakito Gallardo MD [address] [place] [address] [place] [address] [email or web address] 07/04/2025 10:00 AM EDT Telemedicine [facility] Cardiovascular Clinic [address] [place] [address] Thiago Bean MD [address] [place] [address] [email or web address] 10/18/2025 7:05 AM EDT Hospital Encounter [facility] EKG [address] [place] [address] Guanakito Gallardo MD [address] [place] [address] Card[place] [address] [email or web address] Arrived documented as of this encounter Visit Diagnoses Not on filedocumented in this encounter Additional Health Concerns Infection Onset Date Last Indicated Resolved Time CoV-Risk 07/17/2024 07/17/2024 07/28/2024 1:21 AM EDT documented as of this encounter Care Teams Turbo Operator Relationship Specialty Start Date End Date Grecia Bonilla MD [address] [place] [address] [place] [phone] PCP - General Internal Medicine 10/13/22 Indigo Du, [facility] 300 [place] [address] [email or web address] Barrel Straightener Oncology 07/27/22 Hermelinda Barajas MD [address] [place] [address] [place] [address] Pedro@[email or web address] Medical Oncology 11/29/22 Cindi Shell CNP [address] [place] [address] [place] [address] Fina@[email or web address] Gerontology 11/29/22 Carlos Alberto [place] MD, [place] [address] [place] [address] Department of Psychosocial Oncology and Palliative Care, [place] [phone] Jaelyn@[facility] Hospice and Palliative Care 04/05/24 Patria Luevano, BRIELLE [address] [place] [address] [email or web address]@[email or web address] Primary Infusion Nurse 05/15/24 eJnnie Ferreira RN [address] [place] [address] [email or web address] Associate Infusion Nurse 10/02/24 documented as of this encounter Additional Source Comments The information contained in this document represents components of the legal health record. It is not the complete legal health record.[facility]
--- OUTSIDE RECORDS SUMMARY | 2024-11-15 07:31 | XMS_ITS | Encounter Summary ---
Author Organization [facility] Address [address] [place] [address] Phone Care Team Providers Care General I Farmworker Name Role Phone Indigo DuSW Unavailable [phone] Grecia Bonilla MD Primary Care Provider Hermelinda Barajas MD Unavailable [phone] Cindi Shell OCULAR CARE TECHNICIAN Unavailable Zuri Ha RN Unavailable Sandra [email or web address] Carlos Alberto King MD, [place] Unavailable Patria Luevano RN Unavailable TOBIAS [email or web address] Jennie Ferreira RN Unavailable ALISON@ [email or web address].[email or web address].[facility] Encounter Details Date Type Department Care Team (Late st Contact Info) Description 01/14/2023 Procedure Pass [facility] Endoscopy Department [address] [place] [address] Social History Tobacco Use Types Packs/Day Years [...] st Contact Info) Description 10/18/2024 Procedure Pass [facility] Radiology [address] [place] [address] 10/23/2024 Procedure Pass [facility] EKG 70 [place] [address] 10/23/2024 Procedure Pass [facility] EKG 70 [place] [address] 11/13/2024 Procedure Pass [address] [address] 11/13/2024 Procedure Pass [address] [address] 11/16/2024 8:30 AM EDT Appointment [facility] MSK Diagnostic X-ray Imaging, [place] [address] [place] [address] Andrew Lima MD [address] [place] [address] Department [place] [address] [email or web address] 11/16/2024 9:00 AM EDT Office Visit [facility] Department of Orthopaedics 60 [place] [address] Andrew Lima MD [address] [place] [address] Department [place] [address] [email or web address] 11/22/2024 1:00 PM EDT Office Visit [facility] Endocrine, Diabetes, and Hypertension [address] [facility] 2nd [place] [address] Svetlana Lucero, PharmD 75 [place] [address] [email or web address] 11/26/2024 1:00 PM EDT Social Work Social Work Department, [facility] 300 [facility] 4th [place] [address] Hermelinda Barajas MD [address] [address] Pedro@[email or web address] Indigo Du, [facility] 300 [place] [address] [email or web address] 12/04/2024 7:30 AM EDT Blood Draw Laboratory Services, [address], 2nd [place] [address] Hermelinda Barajas MD [address] [place] [address] Pedro@[facility] 12/04/2024 8:30 AM EDT Office Visit [facility] Center for Thoracic Oncology, [address], 9th [place] [address] Cindi Shell CNP [address] [place] [address] Benedict east@[facility] Hermelinda Barajas MD [address] [place] [address] Pedro@[facility] 12/04/2024 9:30 AM EDT Infusion Infusion Therapy Services [facility] 9, [address], 9th [place] [address] Cindi Shell CNP [address] [place] [address] Benedict east@[facility] Patria Luevano, BRIELLE [address] [place] [address] STEFANO@[facility] 12/25/2024 6:30 AM EDT Blood Draw Laboratory Services, [address], 2nd [place] [address] Cindi Shell CNP [address] [place] [address] Benedict east@[facility] 12/25/2024 7:30 AM EDT Office Visit [facility] Center for Thoracic Oncology, [address], 9th [place] [address] Cindi Shell CNP [address] [place] [address] Benedict east@[facility] 12/25/2024 8:30 AM EDT Infusion Infusion Therapy Services [facility] 9, [address], 9th [place] [address] Cindi Shell CNP [address] [place] [address] Benedict east@[facility] 01/11/2025 11:45 AM EST Appointment [facility], Ct Scan - [facility] 30 [place] [address] Hermelinda Barajas MD [address] [place] [address]40 [place] [address] Pedro@[facility] 01/15/2025 7:10 AM EST Blood Draw Laboratory Services, [facility] 450 [facility], 2nd [place] [address] Cindi Shell OCULAR CARE TECHNICIAN 450 [place] [address] Benedict east@[facility] 01/15/2025 8:00 AM EST Office Visit [facility] Center for Thoracic Oncology, [facility] [address] [facility], 9th [place] [address] Hermelinda Barajas MD [address] [place] [address] 1240 [place] [address] Pedro@[facility] 01/15/2025 9:00 AM EST Infusion Infusion Therapy Services [facility] 9, [facility] [address] [facility], 9th [place] [address] Cindi Shell OCULAR CARE TECHNICIAN 450 [place] [address] Benedict east@[facility] 01/18/2025 7:35 AM EST Hospital Encounter [facility] EKG 70 [place] [address] Guanakito Gallardo MD [address] [place] [address] Card[place] [address] Arrived 01/18/2025 8:30 AM EST Appointment [facility] 70 [place] [address] Odalis Jimenez PA-C 70 [facility] 5th [place] [address] [email or web address] 02/01/2025 8:40 AM EST Office Visit [facility] Otolaryngology 45 [facility] ASB2-2 [place] [address] Demetrio Armstrong MD 45 [place] [phone] [email or web address] 02/25/2025 9:30 AM EST Telemedicine [facility] Cardiovascular Clinic 70 [place] [address] Guanakito Gallardo MD [address] [place] [address] [place] [address] [email or web address] 07/04/2025 10:00 AM EDT Telemedicine [facility] Cardiovascular Clinic 70 [place] [address] Thiago Bean MD [address] [place] [address] [email or web address] 10/18/2025 7:05 AM EDT Hospital Encounter [facility] EKG 70 [place] [address] Guanakito Gallardo MD [address] [place] [address] [place] [address] [email or web address] Arrived documented as of this encounter Visit Diagnoses Not on filedocumented in this encounter Additional Health Concerns Infection Onset Date Last Indicated Resolved Time COVID-19 04/06/2023 04/06/2023 04/27/2023 1:21 AM EST CoV-Risk 07/17/2024 07/17/2024 07/28/2024 1:21 AM EDT documented as of this encounter Care Teams General I Farmworker Relationship Specialty Start Date End Date Grecia Bonilla MD [address] [place] [address] [place] [address] PCP - General Internal Medicine 10/13/22 Indigo Du, [address] [address] [email or web address] Oncology 07/27/22 Hermelinda Barajas MD [address] [place] [phone] Pedro@[facility] Medical Oncology 11/29/22 Cindi Shell CNP [address] [place] [address] Fina@[email or web address] Gerontology 11/29/22 Zuri Ha RN [address] [place] [address] Milton@[facility] Primary Infusion Nurse 01/10/24 05/14/24 Carlos Alberto King MD, [place] [address] [place] [address] Department of Psychosocial Oncology and Palliative Care, [place] [address] Jaelyn@[facility] H[facility] 04/05/24 Patria Luevano, BRIELLE [address] [place] [address] [email or web address]@[facility] Primary Infusion Nurse 05/15/24 Jennie Ferreira, RN [address] [place] [address] [email or web address] Associate Infusion Nurse 10/02/24 documented as of this encounter Additional Source Comments The information contained in this document represents components of the legal health record. It is not the complete legal health record.[facility]
--- OUTSIDE RECORDS SUMMARY | 2024-11-15 07:31 | XMS_ITS | Encounter Summary ---
Author Organization [facility] Address [address] [place] [address] Phone Care Team Providers Care Hospital Product Specialist Name Role Phone Indigo DuSW Unavailable [phone] Grecia Bonilla MD Primary Care Provider Hermelinda Barajas MD Unavailable [phone] Cindi Shell DOOR CLAMP OPERATOR Unavailable Zuri Ha RN Unavailable Sandra [email or web address] Carlos Alberto King MD, [place] Unavailable Patria Luevano RN Unavailable TOBIAS [email or web address] Jennie eFrreira RN Unavailable ALISON@ [email or web address] Encounter Details Date Type Department Care Team (Late st Contact Info) Description 04/24/2024 Procedure Pass [facility], [address] [address] Social History Tobacco Use Types Packs/Day Years [...] st Contact Info) Description 10/18/[address] [facility] [address] [place] [address] 10/23/2024 Procedure Pass [facility] EKG [address] [place] [address] 10/23/2024 Procedure Pass [facility] EKG [address] [place] [address] 11/13/2024 Procedure Pass [address] [address] 11/13/2024 Procedure Pass [address] [address] 11/16/2024 8:30 AM EDT Appointment [facility] MSK Diagnostic X-ray Imaging, Eve [address] [place] [address] Andrew Lima MD [address] [place] [address] Department [place] [address] [email or web address] 11/16/2024 9:00 AM EDT Office Visit [facility] Department of Orthopaedics 60 [place] [address] Andrew Lima MD 75 [facility] Department [place] [address] [email or web address] 11/22/2024 1:00 PM EDT Office Visit [facility] Endocrine, Diabetes, and Hypertension 221 [facility] 2nd [place] [address] Svetlana Lucero, RigoD 75 [place] [address] nilam@[facility] 11/26/2024 1:00 PM EDT Social Work Social Work Department, [facility] 300 [facility] 4th [place] [address] Hermelinda Barajas MD 450 [facility] [address] [place] [address] Pedro@[facility] Indigo Du, [facility] 300 [place] [address] christina@[facility] 12/04/2024 7:30 AM EDT Blood Draw Laboratory Services, [facility] [address] [facility], [address] [place] [address] Hermelinda Barajas MD 450 [facility] 1240 [place] [address] Pedro@[facility] 12/04/2024 8:30 AM EDT Office Visit [facility], [facility] [address] [facility], 9th [place] [address] Cindi Shell FREEMAN [address] [place] [phone] Benedict east@[facility] Hermelinda Barajas MD [address] [place] [address] 1240 [place] [address] Pedro@[facility] 12/04/2024 9:30 AM EDT Infusion Infusion Therapy Services Yawkey 9, [address], 9th [place] [address] Cindi Shell CNP [address] [place] [address] Benedict east@[facility] Patria Luevano, BRIELLE [address] [place] [address] [email or web address]@[facility] 12/25/2024 6:30 AM EDT Blood Draw Laboratory Services, [address], 2nd [place] [address] Cindi Shell CNP [address] [place] [address] Benedict east@[facility] 12/25/2024 7:30 AM EDT Office Visit [facility], [address], 9th [place] [address] Cindi Shell CNP [address] [place] [phone] Benedict east@[facility] 12/25/2024 8:30 AM EDT Infusion Infusion Therapy Services Yawkey 9, [facility] [address] [facility], 9th [place] [address] Cindi Shell CNP 450 [place] [address] Benedict east@[facility] 01/11/2025 11:45 AM EST Appointment [address] [address] Hermelinda Barajas MD [address] [place] [address] [place] [address] Pedro@[facility] 01/15/2025 7:10 AM EST Blood Draw Laboratory Services, [address], 2nd [place] [address] Cindi Shell CNP 450 [place] [address] Benedict east@[facility] 01/15/2025 8:00 AM EST Office Visit [facility], [facility] [address] [facility], 9th [place] [address] Hermelinda Barajas MD [address] [place] [address] 1240 [place] [address] Pedro@[facility] 01/15/2025 9:00 AM EST Infusion Infusion Therapy Services Yawkey 9, [facility] [address] [facility], 9th [place] [address] Cindi Shell, DOOR CLAMP OPERATOR 450 [facility] [place] [address] CindiMukeshWalter [email or web address] 01/18/2025 7:35 AM EST Hospital Encounter [facility] EKG [address] [place] [address] Guanakito Gallardo MD [address] [place] [address] [place] [address] Arrived 01/18/2025 8:30 AM EST Appointment [facility] [address] [place] [address] Odalis Jimenez PA-C [address] [place] [address] 5th [place] [address] [email or web address] 02/01/2025 8:40 AM EST Office Visit [facility] Otolaryngology 45 [facility] ASB2-2 [place] [address] Demetrio Armstrong MD 45 [place] [phone] mak@[facility] 02/25/2025 9:30 AM EST Telemedicine [facility] Cardiovascular Clinic [address] [place] [address] Guanakito Gallardo MD [address] [place] [address] [place] [address] 07/04/2025 10:00 AM EDT Telemedicine [facility] [address] [place] [address] Thiago Bean MD [address] [place] [address] [email or web address]@[facility] 10/18/2025 7:05 AM EDT Hospital Encounter [facility] EKG [address] [place] [address] Guanakito Gallardo MD [address] [place] [address] [place] [address] [email or web address] Arrived documented as of this encounter Visit Diagnoses Not on filedocumented in this encounter Additional Health Concerns Infection Onset Date Last Indicated Resolved Time CoV-Risk 07/17/2024 07/17/2024 07/28/2024 1:21 AM EDT documented as of this encounter Care Teams Hospital Product Specialist Relationship Specialty Start Date End Date Grecia Bonilla MD [address] [place] [address] [place] [address] PCP - General Internal Medicine 10/13/22 Indigo Du, [facility] 300 [place] [address] [email or web address] Api Developer Oncology 07/27/22 Hermelinda Barajas MD [address] [place] [phone] Pedro@[facility] Medical Oncology 11/29/22 Cindi Shell CNP [address] [place] [address] Fina@[facility] Gerontology 11/29/22 Zuri Ha, BRIELLE [address] [place] [address] Milton@[facility] Primary Infusion Nurse 01/10/24 05/14/24 Carlos Alberto King MD, [place] [address] [place] [address] Department of Psychosocial Oncology and Palliative Care, [place] [address] Jaelyn@[email or web address] Hospice and Palliative Care 04/05/24 Patria Luevano, BRIELLE [address] [place] [address] STEFANO@[email or web address] Primary Infusion Nurse 05/15/24 Jennie Ferreira, BRIELLE [address] [place] [address] ALISON@[email or web address] Associate Infusion Nurse 10/02/24 documented as of this encounter Additional Source Comments The information contained in this document represents components of the legal health record. It is not the complete legal health record.[facility]
--- OUTSIDE RECORDS SUMMARY | 2024-11-15 07:31 | XMS_ITS | Encounter Summary ---
Author Organization [facility] Address [address] [place] [address] Phone Care Team Providers Care Application Release Manager Name Role Phone Indigo DuSW Unavailable [phone] Grecia Bonilla MD Primary Care Provider Hermelinda Barajas MD Unavailable [phone] Cindi Shell MASONRY INSTRUCTOR Unavailable Zuri Ha RN Unavailable Sandra Ruiz@[email or web address] Carlos Alberto King MD, [place] Unavailable Patria Luevano RN Unavailable TOBIAS [email or web address] Jennie Ferreira RN Unavailable ALISON@ [email or web address] Encounter Details Date Type Department Care Team (Late st Contact Info) Description 09/06/2023 Procedure Pass [facility] Imaging Department, [facility] [place] [place] 450 [facility], Floor L1 [place] [address] Social History Tobacco Use Types Packs/Day Years [...] Procedure Pass [facility] Radiology 70 [place] [address] 10/23/[address] [facility] EKG 70 [place] [address] 10/23/[address] [facility] EKG 70 [place] [address] 11/13/2024 Procedure Pass [address] [address] 11/13/2024 Procedure Pass [address] [address] 11/16/2024 8:[address] [facility] MSK Diagnostic X-ray Imaging, [place] 60 [place] [address] Anrdew Lima MD [address] [place] [address] Department [place] [address] [email or web address] 11/16/2024 9:00 AM EDT Office Visit [facility] Department of Orthopaedics 60 [place] [address] Andrew Lima MD [address] [place] [address] Department [place] [address] [email or web address] 11/22/2024 1:00 PM EDT Office [facility] Endocrine, Diabetes, and Hypertension 221 [facility] 2nd [place] [address] Svetlana Lucero, PharmD 75 [place] [address] [email or web address] 11/26/2024 1:00 PM EDT Social Work Social Work Department, [facility] [address] [address] Hermelinda Barajas MD [address] [address] [email or web address] Indigo Du, [facility] 300 [place] [address] [email or web address] 12/04/2024 7:30 AM EDT Blood Draw Laboratory Services, [address], 2nd [place] [address] Hermelinda Barajas MD [address] [place] [address] Pedro@[facility] 12/04/2024 8:30 AM EDT Office Visit [facility] On[facility], [facility] 450 [facility], 9th [place] [address] Cindi Shell CNP 450 [place] [address] Benedict east@[facility] Hermelinda Barajas MD [address] [address] [email or web address].EDU 12/04/2024 9:30 AM EDT Infusion Infusion Therapy Services Yawmelissa 9, [address], 9th [place] [address] Cindi Shell CNP [address] [place] [address] Benedict east@[facility] Patria Luevano, BRIELLE [address] [place] [address] [email or web address]@[facility] 12/25/2024 6:30 AM EDT Blood Draw Laboratory Services, [address], 2nd [place] [address] Cindi Shell CNP [address] [place] [address] Benedict east@[facility] 12/25/2024 7:30 AM EDT Office Visit [facility], [address], [address]th [place] [address] Cindi Shell CNP [address] [place] [address] Benedict east@[facility] 12/25/2024 8:30 AM EDT Infusion Infusion Therapy Services Sowmya , [address], 9th [place] [address] Cindi Shell CNP [address] [place] [address] Benedict east@[facility] 01/11/2025 11:45 AM EST Appointment [facility], [facility] 30 [place] [address] Hermelinda Barajas MD 450 [facility] 1240 [place] [address] Pedro@[facility] 01/15/2025 7:10 AM EST Blood Draw Laboratory Services, [facility] 450 [facility], 2nd [place] [address] Cindi Shell, MASONRY INSTRUCTOR 450 [place] [address] Benedict east@[facility] 01/15/2025 8:00 AM EST Office Visit [facility], [facility] 450 [facility], 9th [place] [address] Hermelinda Barajas MD 450 [facility] [address] [place] [address] Pedro@[facility] 01/15/2025 9:00 AM EST Infusion Infusion Therapy Services Yawkey 9, [facility] 450 [facility], 9th [place] [address] Cindi Shell, MASONRY INSTRUCTOR 450 [place] [address] Benedict east@[facility] 01/18/2025 7:35 AM EST Hospital Encounter [facility] EKG 70 [place] [address] Guanakito Gallardo MD [address] [place] [address] Cardiology Division [facility] [place] [address] Arrived 01/18/2025 8:30 AM EST Appointment [facility] 70 [place] [address] Odalis Jimenez PA-C 70 [facility] 5th [place] [address] [email or web address] 02/01/2025 8:40 AM EST Office Visit [facility] Otolaryngology 45 [facility]2-2 [place] [address] Demetrio Armstrong MD 45 [place] [phone] [email or web address] 02/25/2025 9:30 AM EST Telemedicine [facility] Cardiovascular Clinic 70 [place] [address] Guanakito Gallardo MD [address] [place] [address] [email or web address] 07/04/2025 10:00 AM EDT Telemedicine [facility] 70 [place] [address] Thiago Bean MD [address] [place] [address] [email or web address] 10/18/2025 7:05 AM EDT Hospital Encounter [facility] EKG 70 [place] [address] Guanakito Gallardo MD [address] [place] [address] [email or web address] Arrived documented as of this encounter Visit Diagnoses Not on filedocumented in this encounter Additional Health Concerns Infection Onset Date Last Indicated Resolved Time CoV-Risk 07/17/2024 07/17/2024 07/28/2024 1:21 AM EDT documented as of this encounter Care Teams Application Release Manager Relationship Specialty Start Date End Date Grecia Bonilla MD [address] [place] [address] [place] [address] PCP - General Internal Medicine 10/13/22 Indigo Du, [facility] 300 [place] [address] [email or web address] Director Supply Chain Oncology 07/27/22 Hermelinda Barajas MD [address] [place] [phone] Pedro@[facility] Medical Oncology 11/29/22 Cindi Shell CNP [address] [place] [address] Fina@[email or web address] Gerontology 11/29/22 Zuri Ha, BRIELLE [address] [place] [address] Milton@[email or web address] Primary Infusion Nurse 01/10/24 05/14/24 Carlos Alberto King MD, [place] [address] [place] [address] Department of Psychosocial Oncology and Palliative Care, [place] [phone] Jaelyn@[facility] Hospice and Palliative Care 04/05/24 Patria Luevano, BRIELLE [address] [place] [address] [email or web address]@[email or web address] Primary Infusion Nurse 05/15/24 Jennie Ferreira, RN [address] [place] [address] [email or web address]@[facility] Associate Infusion Nurse 10/02/24 documented as of this encounter Additional Source Comments The information contained in this document represents components of the legal health record. It is not the complete legal health record.[facility]
--- OUTSIDE RECORDS SUMMARY | 2024-11-15 07:31 | XMS_ITS | Encounter Summary ---
Author Organization [facility] Address [address] [place] [address] Phone Care Team Providers Care Jr. Systems Administrator Name Role Phone Indigo DuSW Unavailable Grecia Bonilla MD Primary Care Provider Hermelinda Barajas MD Unavailable [phone] Cindi Shell RETAIL ROUTE SUPERVISOR Unavailable Zuri Ha RN Unavailable Sandra [email or web address] Carlos Alberto King MD, [place] Unavailable Patria Luevano RN Unavailable TOBIAS [email or web address] Jennie Ferreira RN Unavailable ALISON@ [email or web address] Encounter Details Date Type Department Care Team (Late st Contact Info) Description 09/06/2023 Procedure Pass [facility] Echocardiography [address] [place] [address] Social History Tobacco Use Types Packs/Day Years [...] st Contact Info) Description 10/18/2024 Procedure Pass [facility] Radiology [address] [place] [address] 10/23/2024 Procedure Pass [facility] EKG [address] [place] [address] 10/23/2024 Procedure Pass [facility] EKG [address] [place] [address] 11/13/2024 Procedure Pass [address] [address] 11/13/2024 Procedure Pass [address] [address] 11/16/2024 8:30 AM EDT Appointment [facility] MSK Diagnostic X-ray Imaging, [place] [address] [place] [address] Andrew Lima MD [address] [place] [address] Department [place] [address] [email or web address] 11/16/2024 9:00 AM EDT Office Visit [facility] Department of Orthopaedics 60 [place] [address] Andrew Lima MD [address] [place] [address] Department [place] [address] [email or web address] 11/22/2024 1:00 PM EDT Office Visit [facility] Endocrine, Diabetes, and Hypertension 221 [facility] 2nd [place] [address] Svetlana Lucero, PharmD 75 [place] [address] nilam@[email or web address] 11/26/2024 1:00 PM EDT Social Work Social Work Department, [facility] 300 [facility] 4th [place] [address] Hermelinda Barajas MD [address] [address] Pedro@[facility] Indigo Du, [facility] 300 [place] [address] [email or web address] 12/04/2024 7:30 AM EDT Blood Draw Laboratory Services, [address], 2nd [place] [address] Hemrelinda Barajas MD [address] [address] Pedro@[facility] 12/04/2024 8:30 AM EDT Office Visit [facility] Center for Thoracic Oncology, [address], 9th [place] [address] Cindi Shell CNP 450 [place] [address] Benedict east@[facility] Hermelinda Barajas MD 450 [facility] [address] [place] [address] Pedro@[facility] 12/04/2024 9:30 AM EDT Infusion Infusion Therapy Services [place] 9, [facility] 450 [facility], 9th [place] [address] Cindi Shell CNP [address] [place] [address] Benedict east@[facility] Patria Luevano, BRIELLE [address] [place] [address] [email or web address]@[email or web address] 12/25/2024 6:30 AM EDT Blood Draw Laboratory Services, [address], 2nd [place] [address] Cindi Shell CNP [address] [place] [address] Benedict east@[facility] 12/25/2024 7:30 AM EDT Office Visit [facility] Center for Thoracic Oncology, [address], 9th [place] [address] Cindi Shell CNP [address] [place] [address] Benedict east@[facility] 12/25/2024 8:30 AM EDT Infusion Infusion Therapy Services [place] 9, [address], 9th [place] [address] Cindi Shell CNP [address] [place] [address] Benedict east@[facility] 01/11/2025 11:45 AM EST Appointment [facility], Ct Scan - [facility] 30 [place] [address] Hermelinda Barajas MD 450 [facility] 1240 [place] [address] Pedro@[facility] 01/15/2025 7:10 AM EST Blood Draw Laboratory Services, [facility] 450 [facility], 2nd [place] [address] Cindi Shell RETAIL ROUTE SUPERVISOR 450 [place] [address] Benedict east@[facility] 01/15/2025 8:00 AM EST Office Visit [facility] Center for Thoracic Oncology, [facility] 450 [facility], 9th [place] [address] Hermelinda Barajas MD 450 [facility] 1240 [place] [address] Pedro@[facility] 01/15/2025 9:00 AM EST Infusion [facility], [facility] 450 [facility], 9th [place] [address] Cindi Shell RETAIL ROUTE SUPERVISOR 450 [place] [address] Benedict east@[facility] 01/18/2025 7:35 AM EST Hospital Encounter [facility] EKG 70 [place] [address] Guanakito Gallardo MD [address] [place] [address] [place] [address] Arrived 01/18/2025 8:30 AM EST Appointment [facility] 70 [place] [address] Odalis Jimenez PA-C 70 [facility] 5th [place] [address] [email or web address] 02/01/2025 8:40 AM EST Office Visit [facility] Otolaryngology 45 [facility]2 [place] [address] Demetrio Armstrong MD 45 [place] [phone] [email or web address] 02/25/2025 9:30 AM EST Telemedicine [facility] Cardiovascular Clinic 70 [place] [address] Guanakito Gallardo MD [address] [place] [address] [place] [address] [email or web address] 07/04/2025 10:00 AM EDT Telemedicine [facility] Cardiovascular Clinic 70 [place] [address] Thiago Bean MD [address] [place] [address] [email or web address]@[facility] 10/18/2025 7:05 AM EDT Hospital Encounter [facility] EKG [address] [place] [address] Guanakito Gallardo MD [address] [place] [address] [place] [address] [email or web address] Arrived documented as of this encounter Visit Diagnoses Not on filedocumented in this encounter Additional Health Concerns Infection Onset Date Last Indicated Resolved Time CoV-Risk 07/17/2024 07/17/2024 07/28/2024 1:21 AM EDT documented as of this encounter Care Teams Jr. Systems Administrator Relationship Specialty Start Date End Date Grecia Bonilla MD [address] [place] [address] [place] [phone] PCP - General Internal Medicine 10/13/22 Indigo Du, [facility] 300 [place] [address] [email or web address] Phlebotomy Coordinator Oncology 07/27/22 Hermelinda Barajas MD [address] [place] [address] [place] [address] Pedro@[facility] Medical Oncology 11/29/22 Cindi Shell CNP [address] [place] [address] [email or web address] Gerontology 11/29/22 Zuri Ha, BRIELLE [address] [place] [address] Milton@[facility] Primary Infusion Nurse 01/10/24 05/14/24 Carlos Alberto King MD, [place] [address] [place] [address] Department of Psychosocial Oncology and Palliative Care, [place] [address] Jaelyn@[facility] Hospice and Palliative Care 04/05/24 Patria Luevano, RN [address] [place] [address] [email or web address]@[facility] Primary Infusion Nurse 05/15/24 Jennie Ferreira RN [address] [place] [address] ALISON@[email or web address] Associate Infusion Nurse 10/02/24 documented as of this encounter Additional Source Comments The information contained in this document represents components of the legal health record. It is not the complete legal health record.[facility]
--- OUTSIDE RECORDS SUMMARY | 2024-11-15 07:31 | XMS_ITS | Clinical Summary ---
Author Organization [facility] Facility Address [address] [address] Care Team Providers Care Custom Shoemaker Name Role Phone Unavailable Primary Care Provider [...] Exam 06/04/2022 Influenza Vaccine (#1) 2024 Insurance [facility] Medicaid [facility] Medicaid
--- OUTSIDE RECORDS SUMMARY | 2024-11-15 07:31 | XMS_ITS | Encounter Summary ---
Author Organization [facility] Address [address] [place] [address] Phone Care Team Providers Care Rental Car Ferry Driver Name Role Phone Indigo DuSW Unavailable [phone] Grecia Bonilla MD Primary Care Provider Hermelinda Barajas MD Unavailable [phone] Cindi Shell SKATING CARHOP Unavailable Zuri Ha RN Unavailable Sandra [email or web address] Carlos Alberto King MD, [place] Unavailable [phone] Patria Luevano RN Unavailable TOBIAS [email or web address] Jennie Ferreira RN Unavailable ALISON@ [email or web address] Encounter Details Date Type Department Care Team (Late st Contact Info) Description 03/22/2023 Procedure Pass [facility] Echocardiography 70 [place] [address] Social History Tobacco Use Types Packs/Day Years [...] st Contact Info) Description 10/18/2024 Procedure Pass [facility] Radiology 70 [place] [address] 10/23/2024 Procedure Pass [facility] EKG 70 [place] [address] 10/23/2024 Procedure Pass [facility] EKG 70 [place] [address] 11/13/2024 Procedure Pass [address] [address] 11/13/2024 Procedure Pass [address] [address] 11/16/2024 8:30 AM EDT Appointment [facility] MSK Diagnostic X-ray Imaging, [place] [address] [place] [address] Andrew Lima MD [address] [place] [address] Department [place] [address] [email or web address] 11/16/2024 9:00 AM EDT Office Visit [facility] Department of Orthopaedics 60 [place] [address] Andrew Lima MD [address] [place] [address] Department [place] [address] [email or web address] 11/22/2024 1:00 PM EDT Office Visit [facility] Endocrine, Diabetes, and Hypertension 221 [facility] 2nd [place] [address] Svetlana Lucero, PharmD 75 [place] [address] nilam@[email or web address] 11/26/2024 1:00 PM EDT Social Work Social Work Department, [facility] 300 [facility] 4th [place] [address] Hermelinda Barajas MD [address] [address] Pedro@[facility] Indigo Du, [facility] 300 [place] [address] [email or web address] 12/04/2024 7:30 AM EDT Blood Draw Laboratory Services, [address], 2nd [place] [address] Hermelinda Barajas MD [address] [address] Pedro@[facility] 12/04/2024 8:30 AM EDT Office Visit [facility] Center for Thoracic Oncology, [address], 9th [place] [address] Cindi Shell CNP 450 [place] [address] Benedict east@[facility] Hermelinda Barajas MD 450 [facility] [address] [place] [address] Pedro@[facility] 12/04/2024 9:30 AM EDT Infusion Infusion Therapy Services [place] 9, [facility] 450 [facility], 9th [place] [address] Cindi Shell CNP [address] [place] [address] Benedict east@[facility] Patria Luevano, BRIELLE [address] [place] [address] [email or web address]@[facility] 12/25/2024 6:30 AM EDT Blood Draw Laboratory Services, [address], 2nd [place] [address] Cindi Shell CNP [address] [place] [address] Benedict east@[facility] 12/25/2024 7:30 AM EDT Office Visit [facility] Center for Thoracic Oncology, [address], 9th [place] [address] Cindi Shell CNP [address] [place] [address] Benedict east@[facility] 12/25/2024 8:30 AM EDT Infusion Infusion Therapy Services [place] 9, [address], 9th [place] [address] Cindi Shell CNP [address] [place] [address] Benedict east@[facility] 01/11/2025 11:45 AM EST Appointment [facility], Ct Scan - [facility] 30 [place] [address] Hermelinda Barajas MD 450 [facility] 1240 [place] [address] Pedro@[facility] 01/15/2025 7:10 AM EST Blood Draw Laboratory Services, [facility] 450 [facility], 2nd [place] [address] Cindi Shell SKATING CARHOP 450 [place] [address] Benedict east@[facility] 01/15/2025 8:00 AM EST Office Visit [facility] Center for Thoracic Oncology, [facility] 450 [facility], 9th [place] [address] Hermelinda Barajas MD 450 [facility] 1240 [place] [address] Pedro@[facility] 01/15/2025 9:00 AM EST Infusion [facility], [facility] 450 [facility], 9th [place] [address] Cindi Shell SKATING CARHOP 450 [place] [address] Benedict east@[facility] 01/18/2025 7:35 AM EST Hospital Encounter [facility] EKG 70 [place] [address] Guanakito Gallardo MD [address] [place] [address] [place] [address] Arrived 01/18/2025 8:30 AM EST Appointment [facility] 70 [place] [address] Odalis Jimenez PA-C 70 [facility] 5th [place] [address] [email or web address] 02/01/2025 8:40 AM EST Office Visit [facility] Otolaryngology 45 [facility]2-2 [place] [address] Demetrio Arsmtrong MD 45 [place] [phone] [email or web address] 02/25/2025 9:30 AM EST Telemedicine [facility] Cardiovascular Clinic 70 [place] [address] Guanakito Gallardo MD [address] [place] [address] [place] [address] [email or web address] 07/04/2025 10:00 AM EDT Telemedicine [facility] Cardiovascular Clinic 70 [place] [address] Thiago Bean MD [address] [place] [address] [email or web address] 10/18/2025 7:05 AM EDT Hospital Encounter [facility] EKG 70 [place] [address] Guanakito Gallardo MD [address] [place] [address] [place] [address] [email or web address] Arrived documented as of this encounter Visit Diagnoses Not on filedocumented in this encounter Additional Health Concerns Infection Onset Date Last Indicated Resolved Time COVID-19 04/06/2023 04/06/2023 04/27/2023 1:21 AM EST CoV-Risk 07/17/2024 07/17/2024 07/28/2024 1:21 AM EDT documented as of this encounter Care Teams Rental Car Ferry Driver Relationship Specialty Start Date End Date Grecia Bonilla MD [address] [place] [address] [place] [address] PCP - General Internal Medicine 10/13/22 Indigo Du, [facility] 300 [place] [address] [email or web address] Founder And Chief Technical Officer Oncology 07/27/22 Hermelinda Barajas MD [address] [place] [address] Pedro@[facility] Medical Oncology 11/29/22 Cindi Shell CNP [address] [place] [address] [email or web address] Gerontology 11/29/22 Zuri Ha, BRIELLE [address] [place] [address] Milton@[facility] Primary Infusion Nurse 01/10/24 05/14/24 Carlos Alberto King MD, [place] [address] [place] [address] Department of Psychosocial Oncology and Palliative Care, [place] [phone] Jaelyn@[facility] Hospice and Palliative Care 04/05/24 Patria Luevano, RN [address] [place] [address] [email or web address]@[facility] Primary Infusion Nurse 05/15/24 Jennie Ferreira, RN [address] [place] [address] [email or web address] Associate Infusion Nurse 10/02/24 documented as of this encounter Additional Source Comments The information contained in this document represents components of the legal health record. It is not the complete legal health record.[facility]
--- OUTSIDE RECORDS SUMMARY | 2024-11-15 07:31 | XMS_ITS | Patient Health Record ---
Author Organization [facility] Address [address] [place] [address] Care Team Providers Care Commercial Photographer Name Role Phone NO, PCP Primary Care Provider [facility], [place] Unavailable [phone] Reason For Referral No Information Plan Of Treatment No Information Insurance Providers Payer Name Payer Address Payer Phone Subscriber Number Group Number Insured Name Patient Relationship to Insured Coverage Start Date Coverage End Date [place] Medicare [place] A [employer] [facility] [address] [place] [address] [id number] Jesse Patrick Self - patient is the insured 5 [place] Medicaid Standard [address] [place] [address] [id number] Jesse Patrick Self - patient is the insured 5
--- OUTSIDE RECORDS SUMMARY | 2024-11-15 07:31 | XMS_ITS | Encounter Summary ---
Author Organization [facility] Address [address] [place] [address] Phone Care Team Providers Care Zanjero Name Role Phone Indigo DuSW Unavailable Grecia Bonilla MD Primary Care Provider Hermelinda Barajas MD Unavailable [phone] Cindi Shell CLINICAL OUTCOMES MANAGER Unavailable [phone] Zuri Ha RN Unavailable Sandra [email or web address] Carlos Alberto King MD, [place] Unavailable Patria Luevano RN Unavailable TOBIAS [email or web address] Jennie Ferreira RN Unavailable ALISON@ [email or web address] Encounter Details Date Type Department Care Team (Late st Contact Info) Description 03/06/2024 Procedure Pass [facility], Ct Scan - [facility] 30 [place] [address] Social History Tobacco Use Types Packs/Day Years [...] st Contact Info) Description 10/18/2024 Procedure Pass [facility] Women[facility] Radiology [address] [place] [address] 10/23/2024 Procedure Pass [facility] EKG [address] [place] [address] 10/23/2024 Procedure Pass [facility] EKG 70 [place] [address] 11/13/2024 Procedure Pass [address] [address] 11/13/2024 Procedure Pass [address] [address] 11/16/2024 8:30 AM EDT Appointment [facility] MSK Diagnostic X-ray Imaging, Eve [address] [place] [address] Andrew Lima MD [address] [place] [address] Department [place] [address] [email or web address] 11/16/2024 9:00 AM EDT Office Visit [facility] Women's Department of Orthopaedics 60 [place] [address] Andrew Lima MD 75 [facility] Department [place] [address] [email or web address] 11/22/2024 1:00 PM EDT Office Visit [facility] Endocrine, Diabetes, and Hypertension 221 [facility] 2nd [place] [address] Svetlana Lucero, RigoD 75 [place] [address] [email or web address] 11/26/2024 1:00 PM EDT Social Work Social Work Department, [facility] [address] [facility] 4th [place] [address] Hermelinda Barajas MD 450 [facility] [address] [place] [address] Pedro@[facility] Indigo Du, [facility] 300 [place] [address] [email or web address] 12/04/2024 7:30 AM EDT Blood Draw Laboratory Services, [facility] 450 [facility], 2nd [place] [address] Hermelinda Barajas MD 450 [facility] 1240 [place] [address] Pedro@[facility] 12/04/2024 8:30 AM EDT Office Visit [facility] Center for Thoracic Oncology, [facility] 450 [facility], 9th [place] [address] Cindi Shell CNP [address] [place] [address] Benedict east@[facility] Hermelinda Barajas MD [address] [place] [address] 1240 [place] [address] Pedro@[email or web address] 12/04/2024 9:30 AM EDT Infusion Infusion Therapy Services Yawkey 9, [address], 9th [place] [address] Cindi Shell CNP [address] [place] [address] Benedict east@[facility] Patria Luevano, BRIELLE [address] [place] [address] STEFANO@[facility] 12/25/2024 6:30 AM EDT Blood Draw Laboratory Services, [address], 2nd [place] [address] Cindi Shell CNP [address] [place] [address] Benedict east@[facility] 12/25/2024 7:30 AM EDT Office Visit [facility] Center for Thoracic Oncology, [address], 9th [place] [address] Cindi Shell CNP [address] [place] [address] Benedict east@[facility] 12/25/2024 8:30 AM EDT Infusion Infusion Therapy Services [place] 9, [facility] 450 [facility], 9th [place] [address] Cindi Shell CNP 450 [place] [address] Benedict east@[facility] 01/11/2025 11:45 AM EST Appointment [address] [address] Hermelinda Barajas MD [address] [place] [address] [place] [address] Pedro@[facility] 01/15/2025 7:10 AM EST Blood Draw Laboratory Services, [address], 2nd [place] [address] Cindi Shell CLINICAL OUTCOMES MANAGER 450 [place] [address] Benedict east@[facility] 01/15/2025 8:00 AM EST Office Visit [facility] Center for Thoracic Oncology, [facility] 450 [facility], 9th [place] [address] Hermelinda Barajas MD [address] [place] [address] 1240 [place] [address] Pedro@[facility] 01/15/2025 9:00 AM EST Infusion Infusion Therapy Services Y[facility] 9, [facility] 450 [facility], 9th [place] [address] Cindi Shell, CLINICAL OUTCOMES MANAGER 450 [facility] [address] CindiMukehsWalter [email or web address] 01/18/2025 7:35 AM EST Hospital Encounter [facility] EKG 70 [place] [address] Guanakito Gallardo MD [address] [place] [address] [place] [address] Arrived 01/18/2025 8:30 AM EST Appointment [facility] [address] [place] [address] Odalis Jimenez PA-C [address] [place] [address] 5th [place] [address] [email or web address] 02/01/2025 8:40 AM EST Office Visit [facility] Otolaryngology 45 [facility] ASB2-2 [place] [address] Demetrio Armstrong MD 45 [place] [phone] [email or web address] 02/25/2025 9:30 AM EST Telemedicine [facility] Cardiovascular Clinic [address] [place] [address] Guanakito Gallardo MD [address] [place] [address] [place] [address] 07/04/2025 10:00 AM EDT Telemedicine [facility] Cardiovascular Clinic [address] [place] [address] Thiago Bean MD [address] [place] [address] [email or web address] 10/18/2025 7:05 AM EDT Hospital Encounter [facility] EKG 70 [place] [address] Guanakito Gallardo MD [address] [place] [address] [place] [address] [email or web address] Arrived documented as of this encounter Visit Diagnoses Not on filedocumented in this encounter Additional Health Concerns Infection Onset Date Last Indicated Resolved Time CoV-Risk 07/17/2024 07/17/2024 07/28/2024 1:21 AM EDT documented as of this encounter Care Teams Zanjero Relationship Specialty Start Date End Date Grecia Bonilla MD [address] [place] [address] [place] [address] PCP - General Internal Medicine 10/13/22 Indigo Du, [facility] 300 [place] [address] [email or web address] Director Of Recruiting Oncology 07/27/22 Hermelinda Barajas MD [address] [place] [phone] Pedro@[facility] Medical Oncology 11/29/22 Cindi Shell CNP [address] [place] [address] Fina@[facility] Gerontology 11/29/22 Zuri Ha, BRIELLE [address] [place] [address] Milton@[facility] Primary Infusion Nurse 01/10/24 05/14/24 Carlos Alberto [place] MD, [place] [address] Department of Psychosocial Oncology and Palliative Care, [place] [address] Jaelyn@[email or web address] Hospice and Palliative Care 04/05/24 Patria Luevano, BRIELLE [address] [place] [address] STEFANO@[facility] Primary Infusion Nurse 05/15/24 Jennie Ferreira, BRIELLE [address] [place] [address] [email or web address] Associate Infusion Nurse 10/02/24 documented as of this encounter Additional Source Comments The information contained in this document represents components of the legal health record. It is not the complete legal health record.[facility]
--- OUTSIDE RECORDS SUMMARY | 2024-11-15 07:31 | XMS_ITS | Encounter Summary ---
Author Organization [facility] Address [address] [place] [address] Phone Care Team Providers Care Corporate Quality Assurance Manager Name Role Phone Indigo DuSW Unavailable Grecia Bonilla MD Primary Care Provider Hermelinda Barajas MD Unavailable [phone] Cindi Shell MELTER SUPERVISOR [employer] Unavailable Zuri Ha RN Unavailable Sandra Ruiz@[email or web address] Carlos Alberto King MD, [place] Unavailable Patria Luevano RN Unavailable TOBIAS [email or web address] Jennie Ferreira RN Unavailable ALISON@ [email or web address] Encounter Details Date Type Department Care Team (Late st Contact Info) Description 06/21/2023 Procedure Pass [facility] Department, Hermel[facility] [place] [place] 450 [facility], Floor L1 [place] [address] Social History Tobacco Use Types Packs/Day Years [...] st Contact Info) Description 10/18/2024 Procedure Pass [facility] Radiology [address] [place] [address] 10/23/2024 Procedure Pass [facility] EKG 70 [place] [address] 10/23/2024 Procedure Pass [facility] EKG 70 [place] [address] 11/13/2024 Procedure Pass [address] [address] 11/13/2024 Procedure Pass [address] [address] 11/16/2024 8:30 AM EDT Appointment [facility] MSK Diagnostic X-ray Imaging, [place] [address] [place] [address] Andrew Lima MD [address] [place] [address] Department [place] [address] [email or web address] 11/16/2024 9:00 AM EDT Office Visit [facility] Department of Orthopaedics 60 [place] [address] Andrew Lima MD [address] [place] [address] Department [place] [address] [email or web address] 11/22/2024 1:00 PM EDT Office Visit [facility] Endocrine, Diabetes, and Hypertension 221 [facility] 2nd [place] [address] Svetlana Lucero, PharmD 75 [place] [address] [email or web address] 11/26/2024 1:00 PM EDT Social Work Social Work Department, [facility] [address] [address] Hermelinda Barajas MD [address] [address] Pedro@[email or web address] Indigo Du, [facility] [address] [place] [address] [email or web address] 12/04/2024 7:30 AM EDT Blood Draw Laboratory Services, [address], 2nd [place] [address] Hermelinda Barajas MD [address] [place] [address] Pedro@[facility] 12/04/2024 8:30 AM EDT Office Visit [facility] Center for Thoracic Oncology, [facility] 450 [facility], 9th [place] [address] Cindi Shell CNP 450 [place] [address] Benedict aest@[facility] Hermelinda Barajas MD [address] [address] [email or web address] 12/04/2024 9:30 AM EDT Infusion Infusion Therapy Services Yawmelissa 9, [address], 9th [place] [address] Cindi Shell CNP [address] [place] [address] Benedict east@[facility] Patria Luevano, BRIELLE [address] [place] [address] STEFANO@[facility] 12/25/2024 6:30 AM EDT Blood Draw Laboratory Services, [address], 2nd [place] [address] Cindi Shell CNP [address] [place] [address] Benedict east@[facility] 12/25/2024 7:30 AM EDT Office Visit [facility] Center for Thoracic Oncology, [address], 9th [place] [address] Cindi Shell CNP [address] [place] [address] Benedict east@[facility] 12/25/2024 8:30 AM EDT Infusion Infusion Therapy Services Sowmya , [address], 9th [place] [address] Cindi Shell CNP [address] [place] [address] Benedict east@[facility] 01/11/2025 11:45 AM EST Appointment [facility], Ct Scan - [facility] 30 [place] [address] Hermelinda Barajas MD 450 [facility] 1240 [place] [address] Pedro@[facility] 01/15/2025 7:10 AM EST Blood Draw Laboratory Services, [facility] 450 [facility], 2nd [place] [address] Cindi Shell, MELTER SUPERVISOR [employer]NACE 450 [place] [address] Benedict east@[facility] 01/15/2025 8:00 AM EST Office Visit [facility] Center for Thoracic Oncology, [facility] 450 [facility], 9th [place] [address] Hermelinda Barajas MD 450 [facility] [address] [place] [address] Pedro@[facility] 01/15/2025 9:00 AM EST Infusion Infusion Therapy Services Yawkey 9, [facility] 450 [facility], 9th [place] [address] Cindi Shell, MELTER SUPERVISOR [employer] 450 [place] [address] Benedict east@[facility] 01/18/2025 7:35 AM EST Hospital Encounter [facility] EKG 70 [place] [address] Guanakito Gallardo MD [address] [place] [address] Cardiology [place] [address] Arrived 01/18/2025 8:30 AM EST Appointment [facility] 70 [place] [address] Odalis Jimenez PA-C 70 [facility] 5th [place] [address] [email or web address] 02/01/2025 8:40 AM EST Office Visit [facility] Otolaryngology [address] [facility]2 [place] [address] Demetrio Armstrong MD 45 [place] [phone] [email or web address] 02/25/2025 9:30 AM EST Telemedicine [facility] Cardiovascular Clinic 70 [place] [address] Guanakito Gallardo MD [address] [place] [address] [email or web address] 07/04/2025 10:00 AM EDT Telemedicine [facility] Cardiovascular Clinic 70 [place] [address] Thiago Bean MD [address] [place] [address] [email or web address] 10/18/2025 7:05 AM EDT Hospital Encounter [facility] EKG 70 [place] [address] Guanakito Gallardo MD [address] [place] [address] [email or web address] Arrived documented as of this encounter Visit Diagnoses Not on filedocumented in this encounter Additional Health Concerns Infection Onset Date Last Indicated Resolved Time CoV-Risk 07/17/2024 07/17/2024 07/28/2024 1:21 AM EDT documented as of this encounter Care Teams Corporate Quality Assurance Manager Relationship Specialty Start Date End Date Grecia Bonilla MD [address] [place] [address] [place] [address] PCP - General Internal Medicine 10/13/22 Indigo Du, [facility] [address] [place] [address] [email or web address] Central Processing Tech Oncology 07/27/22 Hermelinda Barajas MD [address] [place] [address] Pedro@[facility] Medical Oncology 11/29/22 Cindi Shell CNP [address] [place] [address] Fina@[facility] Gerontology 11/29/22 Zuri Ha, BRIELLE [address] [place] [address] Milton@[facility] Primary Infusion Nurse 01/10/24 05/14/24 Carlos Alberto [place] MD, [place] [address] [place] [address] Department of Psychosocial Oncology and Palliative Care, [place] [phone] Jaelyn@[facility] Hospice and Palliative Care 04/05/24 Patria Luevano, BRIELLE [address] [place] [address] [email or web address]@[facility] Primary Infusion Nurse 05/15/24 Jennie Ferreira, RN [address] [place] [address] ALISON@[email or web address] Associate Infusion Nurse 10/02/24 documented as of this encounter Additional Source Comments The information contained in this document represents components of the legal health record. It is not the complete legal health record.[facility]
--- OUTSIDE RECORDS SUMMARY | 2024-11-15 07:31 | XMS_ITS | Encounter Summary ---
Author Organization [facility] Address [address] [place] [address] Phone Care Team Providers Care Thermostat Maker Name Role Phone Indigo DuSW Unavailable Grecia Bonilla MD Primary Care Provider Hermelinda Barajas MD Unavailable [phone] Cindi Shell COPY OPERATOR Unavailable Zuri Ha RN Unavailable [email or web address] Carlos Alberto King MD, [place] Unavailable Patria Luevano RN Unavailable TOBIAS [email or web address] Jennie Ferreira RN Unavailable [email or web address] Encounter Details Date Type Department Care Team (Late st Contact Info) Description 10/06/2023 Procedure Pass [facility] Endoscopy Department [address] [place] [address] Social History Tobacco Use Types Packs/Day Years [...] st Contact Info) Description 10/18/2024 Procedure Pass [facility] Radiology [address] [place] [address] 10/23/2024 Procedure Pass [facility] EKG [address] [place] [address] 10/23/2024 Procedure Pass [facility] EKG [address] [place] [address] 11/13/2024 Procedure Pass [address] [address] 11/13/2024 Procedure Pass [address] [address] 11/16/2024 8:30 AM EDT Appointment [facility] MSK Diagnostic X-ray Imaging, [place] [address] [place] [address] Andrew Lima MD [address] [place] [address] Department [place] [address] [email or web address] 11/16/2024 9:00 AM EDT Office Visit [facility] Department of Orthopaedics [address] [place] [address] Andrew Lima MD [address] [place] [address] Department [place] [address] [email or web address] 11/22/2024 1:00 PM EDT Office Visit [facility] Endocrine, Diabetes, and Hypertension [address] [facility] 2nd [place] [address] Svetlana Lucero, PharmD 75 [place] [address] [email or web address] 11/26/2024 1:00 PM EDT Social Work Social Work Department, [facility] 300 [facility] 4th [place] [address] Hermelinda Barajas MD [address] [address] Pedro@[facility] Indigo Du, [facility] 300 [place] [address] [email or web address] 12/04/2024 7:30 AM EDT Blood Draw Laboratory Services, [address], 2nd [place] [address] Hermelinda Barajas MD [address] [place] [address] Pedro@[facility] 12/04/2024 8:30 AM EDT Office Visit [facility], [address], 9th [place] [address] Cindi Shell CNP [address] [place] [address] Benedict east@[facility] Hermelinda Barajas MD [address] [place] [address] Pedro@[facility] 12/04/2024 9:30 AM EDT Infusion Infusion Therapy Services [place] 9, [address], 9th [place] [address] Cindi Shell CNP [address] [place] [address] Benedict east@[facility] Patria Luevano, BRIELLE [address] [place] [address] [email or web address]@[facility] 12/25/2024 6:30 AM EDT Blood Draw Laboratory Services, [address], 2nd [place] [address] Cindi Shell CNP [address] [place] [address] Benedict east@[facility] 12/25/2024 7:30 AM EDT Office Visit [facility], [address], 9th [place] [address] Cindi Shell CNP [address] [place] [address] Benedict east@[facility] 12/25/2024 8:30 AM EDT Infusion Infusion Therapy Services [facility] [address], [address], 9th [place] [address] Cindi Shell CNP [address] [place] [address] Benedict east@[facility] 01/11/2025 11:45 AM EST Appointment [facility], Ct Scan - [facility] 30 [place] [address] Hermelinda Barajas MD [address] [place] [address] 1240 [place] [address] Pedro@[facility] 01/15/2025 7:10 AM EST Blood Draw Laboratory Services, [facility] [address] [facility], 2nd [place] [address] Cindi Shell COPY OPERATOR 450 [place] [address] Benedict east@[facility] 01/15/2025 8:00 AM EST Office Visit [facility]acic On[facility], [facility] [address] [facility], 9th [place] [address] Hermelinda Barajas MD [address] [place] [address] 12[address] [place] [address] Pedro@[facility] 01/15/2025 9:00 AM EST Infusion Infusion Therapy Services [facility] 9, [facility] [address] [facility], 9th [place] [address] Cindi Shell COPY OPERATOR 450 [place] [address] Benedict east@[facility] 01/18/2025 7:35 AM EST Hospital Encounter [facility] EKG [address] [place] [address] Guanakito Gallardo MD [address] [place] [address] [place] [address] Arrived 01/18/2025 8:30 AM EST Appointment [facility] [address] [place] [address] Odalis Jimenez PA-C 70 [facility] 5th [place] [address] [email or web address] 02/01/2025 8:40 AM EST Office Visit [facility] Otolaryngology 45 [facility] ASB2-2 [place] [address] Demetrio Armstrong MD 45 [place] [phone] [email or web address] 02/25/2025 9:30 AM EST Telemedicine [facility] Cardiovascular Clinic 70 [place] [address] Guanakito Gallardo MD [address] [place] [address] [place] [address] [email or web address] 07/04/2025 10:00 AM EDT Telemedicine [facility] Cardiovascular Clinic [address] [place] [address] Thiago Bean MD [address] [place] [address] [email or web address] 10/18/2025 7:05 AM EDT Hospital Encounter [facility] EKG [address] [place] [address] Guanakito Gallardo MD [address] [place] [address] [place] [address] [email or web address] Arrived documented as of this encounter Visit Diagnoses Not on filedocumented in this encounter Additional Health Concerns Infection Onset Date Last Indicated Resolved Time CoV-Risk 07/17/2024 07/17/2024 07/28/2024 1:21 AM EDT documented as of this encounter Care Teams Thermostat Maker Relationship Specialty Start Date End Date Grecia Bonilla MD [address] [place] [address] [place] [phone] PCP - General Internal Medicine 10/13/22 Indigo Du, [facility] 300 [place] [address] [email or web address] Animal Oncology 07/27/22 Hermelinda Barajas MD [address] [place] [address] [place] [address] Pedro@[email or web address] Medical Oncology 11/29/22 Cindi Shell CNP [address] [place] [address] [email or web address] Gerontology 11/29/22 Zuri Ha, BRIELLE [address] [place] [address] Milton@[facility] Primary Infusion Nurse 01/10/24 05/14/24 Carlos Alberto [place] MD, [place] [address] [place] [address] Department of Psychosocial Oncology and Palliative Care, [place] [address] Jaelyn@[facility] Hospice and Palliative Care 04/05/24 Patria Luevano, RN [address] [place] [address] [email or web address]@[facility] Primary Infusion Nurse 05/15/24 Jennie Ferreira, BRIELLE [address] [place] [address] [email or web address] Associate Infusion Nurse 10/02/24 documented as of this encounter Additional Source Comments The information contained in this document represents components of the legal health record. It is not the complete legal health record.[facility]
--- OUTSIDE RECORDS SUMMARY | 2024-11-15 07:32 | XMS_ITS | Encounter Summary ---
Author Organization [facility] Address [address] [place] [address] Phone Care Team Providers Care Shuttle Veneering Supervisor Name Role Phone Indigo DuSW Unavailable Grecia Bonilla MD Primary Care Provider Hermelinda Barajas MD Unavailable [phone] Cindi Shell FITTING ROOM ATTENDANT Unavailable Zuri Ha RN Unavailable Sandra [email or web address] Carlos Alberto [place] MD, [place] Unavailable [phone] Patria Luevano RN Unavailable TOBIAS [email or web address] Jennie Ferreira RN Unavailable [email or web address]@ [email or web address] Encounter Details Date Type Department Care Team (Late st Contact Info) Description 01/11/2024 Procedure Pass [facility] [address] [place] [address] Social History Tobacco Use Types Packs/Day Years [...] st Contact Info) Description 10/18/2024 Procedure Pass [facility] Radiology [address] [place] [address] 10/23/2024 Procedure Pass [facility] EKG 70 [place] [address] 10/23/2024 Procedure Pass [facility] EKG 70 [place] [address] 11/13/2024 Procedure Pass [address] [address] 11/13/2024 Procedure Pass [address] [address] 11/16/2024 8:30 AM EDT Appointment [facility] MSK Diagnostic X-ray Imaging, [place] [address] [place] [address] Andrew Lima MD [address] [place] [address] Department [place] [address] [email or web address] 11/16/2024 9:00 AM EDT Office Visit [facility] Department of Orthopaedics 60 [place] [address] Andrew Lima MD [address] [place] [address] Department [place] [address] [email or web address] 11/22/2024 1:00 PM EDT Office Visit [facility] Endocrine, Diabetes, and Hypertension [address] [facility] 2nd [place] [address] Svetlana Lucero, PharmD 75 [place] [address] [email or web address] 11/26/2024 1:00 PM EDT Social Work Social Work Department, [facility] [address] [address] Hermelinda Barajas MD [address] [address] Pedro@[facility] Indigo Du, [facility] 300 [place] [address] [email or web address] 12/04/2024 7:30 AM EDT Blood Draw Laboratory Services, [address], 2nd [place] [address] Hermelinda Barajas MD [address] [place] [address] Pedro@[facility] 12/04/2024 8:30 AM EDT Office Visit [facility] for Thoracic Oncology, [address], 9th [place] [address] Cindi Shell CNP [address] [place] [address] Benedict east@[facility] Hermelinda Barajas MD [address] [address] Pedro@[facility] 12/04/2024 9:30 AM EDT Infusion Infusion Therapy Services [facility] 9, [address], 9th [place] [address] Cindi Shell CNP [address] [place] [address] Benedict east@[facility] Patria Luevano, BRIELLE [address] [place] [address] [email or web address]@[email or web address] 12/25/2024 6:30 AM EDT Blood Draw Laboratory Services, [address], 2nd [place] [address] Cindi Shell CNP [address] [place] [address] Benedict east@[facility] 12/25/2024 7:30 AM EDT Office Visit [facility], [address], 9th [place] [address] Cindi Shell CNP [address] [place] [address] Benedict east@[facility] 12/25/2024 8:30 AM EDT Infusion Infusion Therapy Services [facility] 9, [address], 9th [place] [address] Cindi Shell CNP [address] [place] [address] Benedict east@[facility] 01/11/2025 11:45 AM EST Appointment [facility], Ct Scan - [facility] 30 [place] [address] Hermelinda Barajas MD 450 [facility] 1240 [place] [address] Pedro@[facility] 01/15/2025 7:10 AM EST Blood Draw Laboratory Services, [address], 2nd [place] [address] Cindi Shell CNP 450 [place] [address] Benedict east@[facility] 01/15/2025 8:00 AM EST Office Visit [facility]acic On[facility], [facility] 450 [facility], 9th [place] [address] Hermelinda Barajas MD 450 [facility] 1240 [place] [address] Pedro@[facility] 01/15/2025 9:00 AM EST Infusion Infusion Therapy Services [facility] 9, [facility] 450 [facility], 9th [place] [address] Cindi Shell FITTING ROOM ATTENDANT 450 [place] [address] Benedict east@[facility] 01/18/2025 7:35 AM EST Hospital Encounter [facility] EKG 70 [place] [address] Guanakito Gallardo MD [address] [place] [address] Card[place] [address] Arrived 01/18/2025 8:30 AM EST Appointment [facility] 70 [place] [address] Odalis Jimenez PA-C 70 [facility] 5th [place] [address] [email or web address] 02/01/2025 8:40 AM EST Office Visit [facility] Otolaryngology 45 [facility]2 [place] [address] Demetrio Armstrong MD 45 [place] [phone] [email or web address] 02/25/2025 9:30 AM EST Telemedicine [facility] Cardiovascular Clinic 70 [place] [address] Guanakito Gallardo MD [address] [place] [address] [place] [address] [email or web address] 07/04/2025 10:00 AM EDT Telemedicine [facility] Cardiovascular Clinic 70 [place] [address] Thiago Bean MD [address] [place] [address] [email or web address] 10/18/2025 7:05 AM EDT Hospital Encounter [facility] EKG 70 [place] [address] Guanakito Gallardo MD [address] [place] [address] [place] [address] [email or web address] Arrived documented as of this encounter Visit Diagnoses Not on filedocumented in this encounter Additional Health Concerns Infection Onset Date Last Indicated Resolved Time CoV-Risk 07/17/2024 07/17/2024 07/28/2024 1:21 AM EDT documented as of this encounter Care Teams Shuttle Veneering Supervisor Relationship Specialty Start Date End Date Grecia Bonilla MD [address] [place] [address] [place] [phone] PCP - General Internal Medicine 10/13/22 Indigo Du, [facility] 300 [place] [address] [email or web address] Manager Client Service Oncology 07/27/22 Hermelinda Barajas MD [address] [place] [address] [place] [phone] Pedro@[facility] Medical Oncology 11/29/22 Cindi Shell CNP [address] [place] [address] Fina@[email or web address] Gerontology 11/29/22 Zuri Ha, BRIELLE [address] [place] [address] Milton@[facility] Primary Infusion Nurse 01/10/24 05/14/24 Carlos Alberto [place] MD, [place] [address] [place] [address] Department of Psychosocial Oncology and Palliative Care, [place] [address] Jaelyn@[facility] Hospice and Palliative Care 04/05/24 Patria Luevano, RN [address] [place] [address] [email or web address]@[facility] Primary Infusion Nurse 05/15/24 Jennie Ferreira RN [address] [place] [address] [email or web address] Associate Infusion Nurse 10/02/24 documented as of this encounter Additional Source Comments The information contained in this document represents components of the legal health record. It is not the complete legal health record.[facility]
--- OUTSIDE RECORDS SUMMARY | 2024-11-15 07:32 | XMS_ITS | Encounter Summary ---
Author Organization [facility] Address [address] [place] [address] Phone Care Team Providers Care Neurodiagnostic Tech Name Role Phone Indigo DuSW Unavailable [phone] Grecia Bonilla MD Primary Care Provider Hermelinda Barajas MD Unavailable [phone] Cindi Shell TRUCKING CONTRACTOR Unavailable [phone] Zuri Ha RN Unavailable Sandra [email or web address] Carlos Alberto King MD, [place] Unavailable [phone] Patria Luevano RN Unavailable TOBIAS [email or web address] Jennie Ferreira RN Unavailable ALISON@ [email or web address] Encounter Details Date Type Department Care Team (Late st Contact Info) Description 06/21/2023 Procedure Pass [facility] Imaging Department, [facility] [place], [place] 450 [facility], Floor L1 [place] [address] Social History Tobacco Use Types Packs/Day Years [...] st Contact Info) Description 10/18/2024 Procedure Pass [facility] Radiology 70 [place] [address] 10/23/2024 Procedure Pass [facility] EKG 70 [place] [address] 10/23/2024 Procedure Pass [facility] EKG 70 [place] [address] 11/13/2024 Procedure Pass [address] [address] 11/13/2024 Procedure Pass [address] [address] 11/16/2024 8:30 AM EDT Appointment [facility] MSK Diagnostic X-ray Imaging, [address] [place] [address] Andrew Lima MD [address] [place] [address] Department [place] [address] [email or web address] 11/16/2024 9:00 AM EDT Office Visit [facility] Department of Orthopaedics 60 [place] [address] Andrew Lima MD [address] [place] [address] Department [place] [address] [email or web address] 11/22/2024 1:00 PM EDT Office Visit [facility] Endocrine, Diabetes, and Hypertension 221 [facility] 2nd [place] [address] Svetlana Lucero, PharmD 75 [place] [address] [email or web address] 11/26/2024 1:00 PM EDT Social Work Social Work Department, [facility] [address] [address] Hermelinda Barajas MD [address] [address] Pedro@[facility] Indigo Du, [facility] 300 [place] [address] [email or web address] 12/04/2024 7:30 AM EDT Blood Draw Laboratory Services, [address], 2nd [place] [address] Hermelinda Barajas MD [address] [place] [address] Pedro@[facility] 12/04/2024 8:30 AM EDT Office Visit [facility], [facility] 450 [facility], 9th [place] [address] Cindi Shell CNP 450 [place] [address] Benedict east@[facility] Hermelinda Barajas MD [address] [address] [email or web address] 12/04/2024 9:30 AM EDT Infusion Infusion Therapy Services Yawmelissa 9, [address], 9th [place] [address] Cindi Shell CNP [address] [place] [address] Benedict east@[facility] Patria Luevano, BRIELLE [address] [place] [address] [email or web address]@[facility] 12/25/2024 6:30 AM EDT Blood Draw Laboratory Services, [address], 2nd [place] [address] Cindi Shell CNP [address] [place] [address] Benedict east@[facility] 12/25/2024 7:30 AM EDT Office Visit [facility], [address], 9th [place] [address] Cindi Shell CNP [address] [place] [address] Benedict east@[facility] 12/25/2024 8:30 AM EDT Infusion Infusion Therapy Services Sowmya , [address], 9th [place] [address] Cindi Shell CNP [address] [place] [address] Benedict east@[facility] 01/11/2025 11:45 AM EST Appointment [facility], Ct Scan - [facility] 30 [place] [address] Hermelinda Barajas MD 450 [facility] 1240 [place] [address] Pedro@[facility] 01/15/2025 7:10 AM EST Blood Draw Laboratory Services, [facility] 450 [facility], 2nd [place] [address] Cindi Shell, TRUCKING CONTRACTOR 450 [place] [address] Benedict east@[facility] 01/15/2025 8:00 AM EST Office Visit [facility], [facility] 450 [facility], 9th [place] [address] Hermelinda Barajas MD 450 [facility] [address] [place] [address] Pedro@[facility] 01/15/2025 9:00 AM EST Infusion Infusion Therapy Services Yawkey 9, [facility] 450 [facility], 9th [place] [address] Cindi Shell, TRUCKING CONTRACTOR 450 [place] [address] Benedict east@[facility] 01/18/2025 7:35 AM EST Hospital Encounter [facility] EKG 70 [place] [address] Guanakito Gallardo MD [address] [place] [address] Cardiology [place] [address] Arrived 01/18/2025 8:30 AM EST Appointment [facility] 70 [place] [address] Odalis Jimenez PA-C 70 [facility] 5th [place] [address] [email or web address] 02/01/2025 8:40 AM EST Office Visit [facility] Otolaryngology 45 [facility]2 [place] [address] Demetrio Armstrong MD 45 [place] [phone] [email or web address] 02/25/2025 9:30 AM EST Telemedicine [facility] Cardiovascular Clinic 70 [place] [address] Guanakito Gallardo MD [address] [place] [address] [email or web address] 07/04/2025 10:00 AM EDT Telemedicine [facility] Cardiovascular Clinic 70 [place] [address] Thiago Bean MD [address] [place] [address] [email or web address] 10/18/2025 7:05 AM EDT Hospital Encounter [facility] EKG 70 [place] [address] Guanakito Gallardo MD [address] [place] [address] [email or web address] Arrived documented as of this encounter Visit Diagnoses Not on filedocumented in this encounter Additional Health Concerns Infection Onset Date Last Indicated Resolved Time CoV-Risk 07/17/2024 07/17/2024 07/28/2024 1:21 AM EDT documented as of this encounter Care Teams Neurodiagnostic Tech Relationship Specialty Start Date End Date Grecia Bonilla MD [address] [place] [address] [place] [address] PCP - General Internal Medicine 10/13/22 Indigo Du, [facility] 300 [place] [address] [email or web address] Organ Teacher Oncology 07/27/22 Hermelinda Barajas MD [address] [place] [address] Pedro@[email or web address] Medical Oncology 11/29/22 Cindi Shell CNP [address] [place] [address] [email or web address] Gerontology 11/29/22 Zuri Ha, BRIELLE [address] [place] [address] Milton@[facility] Primary Infusion Nurse 01/10/24 05/14/24 Carlos Alberto [place], [place] [address] [place] [address] Department of Psychosocial Oncology and Palliative Care, [place] [phone] Jaelyn@[email or web address] Hospice and Palliative Care 04/05/24 Patria Luevano, BRIELLE [address] [place] [address] STEFANO@[facility] Primary Infusion Nurse 05/15/24 Jennie Ferreira, RN [address] [place] [address] [email or web address] Associate Infusion Nurse 10/02/24 documented as of this encounter Additional Source Comments The information contained in this document represents components of the legal health record. It is not the complete legal health record.[facility]
--- OUTSIDE RECORDS SUMMARY | 2024-11-15 07:32 | XMS_ITS | Encounter Summary ---
Author Organization [facility] Address [address] [facility] [address] [place] [address] Phone Care Team Providers Care Flight Coordinator Name Role Phone Indigo DuSW Unavailable [phone] Aubrey Taylor MD Primary Care Provider [phone] Marilynn Daly NP Primary Care Provider Unavailab Grecia Rosado MD Primary Care Provider Hermelinda Barajas MD Unavailable [phone] Cindi Shell [facility] Unavailable [phone] Zuri Ha RN Unavailable Sandra Ruiz@[email or web address] Carlos Alberto King MD, [place] Unavailable Patria Luevano RN Unavailable TOBIAS [email or web address] Jennie Ferreira RN Unavailable ALISON@ [facility] Encounter Details Date Type Department Care Team (Late st Contact Info) Description 08/13/2022 Procedure Pass [facility] [place] 300 [facility] 3rd [place] [address] Social History Tobacco Use Types [...] st Contact Info) Description 10/18/2024 Procedure Pass [facility] Radiology 70 [place] [address] 10/23/2024 Procedure Pass [facility] EKG 70 [place] [address] 10/23/2024 Procedure Pass [facility] EKG 70 [place] [address] 11/13/2024 Procedure Pass [address] [address] 11/13/2024 Procedure Pass [address] [address] 11/16/2024 8:30 AM EDT Appointment [facility] MS Diagnostic X-ray Imaging, [address] [place] [address] Andrew Lima MD [address] [place] [address] Department [place] [address] [email or web address] 11/16/2024 9:00 AM EDT Office Visit [facility] Department of Orthopaedics 60 [place] [address] Andrew Lima MD [address] [place] [address] Department [place] [address] [email or web address] 11/22/2024 1:00 PM EDT Office Visit [facility] Endocrine, Diabetes, and Hypertension 221 [facility] 2nd [place] [address] Svetlana Lucero, PharmD 75 [place] [address] nilam@[email or web address] 11/26/2024 1:00 PM EDT Social Work Social Work Department, [facility] [place] [address] [address] Hermelinda Barajas MD [address] [place] [address] [email or web address]@[email or web address] Indigo Du, [address] [address] [email or web address] 12/04/2024 7:30 AM EDT Blood Draw Laboratory Services, [address], 2nd [place], [place] Hermelinda Barajas MD [address] [place] [address] Pedro@[facility] 12/04/2024 8:30 AM EDT Office Visit [facility] Center for Thoracic Oncology, [facility] 450 [facility], 9th [place] [address] Cindi Shell CNP 450 [place] [address] Benedict [email or web address] Hermelinda Barajas MD [address] [place] [address] [email or web address]@[facility] 12/04/2024 9:30 AM EDT Infusion Infusion Therapy Services [facility], [address], 9th [place] [address] Cindi Shell CNP [address] [place] [address] Benedict east@[facility] Patria Luevano RN [address] [place] [phone] STEFANO@[facility] 12/25/2024 6:30 AM EDT Blood Draw Laboratory Services, [address], 2nd [place] [address] Cindi Shell CNP [address] [place] [address] Benedict east@[facility] 12/25/2024 7:30 AM EDT Office Visit [facility] Center for Thoracic Oncology, [address], 9th [place] [address] Cindi Shell CNP [address] [place] [address] Benedict east@[facility] 12/25/2024 8:30 AM EDT Infusion Infusion Therapy Services [facility], [address], 9th [place] [address] Cindi Shell CNP [address] [place] [address] Benedict east@[facility] 01/11/2025 11:45 AM EST Appointment [facility], Ct Scan - [facility] 30 [place] [address] Hermelinda Barajas MD 450 [facility] 1240 [place] [address] Pedro@[facility] 01/15/2025 7:10 AM EST Blood Draw Laboratory Services, [facility] 450 [facility], 2nd [place] [address] Cindi Shell CNP 450 [place] [address] Benedict east@[facility] 01/15/2025 8:00 AM EST Office Visit [facility] Center for Thoracic Oncology, [facility] 450 [facility], 9th [place] [address] Hermelinda Barajas MD 450 [facility] 1240 [place] [address] Pedro@[facility] 01/15/2025 9:00 AM EST Infusion Infusion Therapy Services Yawkey 9, [facility] 450 [facility], 9th [place] [address] Cindi Shell CNP 450 [place] [address] Benedict east@[facility] 01/18/2025 7:35 AM EST Hospital Encounter [facility] EKG 70 [place] [address] Guanakito Gallardo MD [address] [place] [address] Arrived 01/18/2025 8:30 AM EST Appointment [facility] 70 [place] [address] Odalis Jimenez PA-C 70 [facility] 5th [place] [address] [email or web address] 02/01/2025 8:40 AM EST Office Visit [facility] Otolaryngology 45 [facility]2 [place] [address] Demetrio Armstrong MD 45 [place] [phone] [email or web address] 02/25/2025 9:30 AM EST Telemedicine [facility] Cardiovascular Clinic 70 [place] [address] Guanakito Gallardo MD [address] [place] [address] 07/04/2025 10:00 AM EDT Telemedicine [facility] Cardiovascular Clinic 70 [place] [address] Thiago Bean MD [address] [place] [address] [email or web address] 10/18/2025 7:05 AM EDT Hospital Encounter [facility] EKG 70 [place] [address] Guanakito Gallardo MD [address] [place] [address] Arrived documented as of this encounter Visit Diagnoses Not on filedocumented in this encounter Additional Health Concerns Infection Onset Date Last Indicated Resolved Time COVID-19 04/06/2023 04/06/2023 04/27/2023 1:21 AM EST CoV-Risk 07/17/2024 07/17/2024 07/28/2024 1:21 AM EDT documented as of this encounter Care Teams Flight Coordinator Relationship Specialty Start Date End Date Aubrey Taylor MD [address] [place] [address] PCP - General Internal Medicine 08/13/22 09/14/22 Marilynn Daly NP PCP - General Nurse Practitioner 09/15/22 10/12/22 Grecia Bonilla MD [address] [place] [address] [place] [address] PCP - General Internal Medicine 10/13/22 Indigo Du, [facility] 300 [place] [address] [email or web address] Oncology 07/27/22 Hermelinda Barajas MD [address] [place] [address] [place] [address] Pedro@[facility] Medical Oncology 11/29/22 Cindi Shell CNP [address] [place] [address] Fina@[email or web address] Gerontology 11/29/22 Zuri Ha RN 450 [place], [place] Milton@[email or web address] Primary Infusion Nurse 01/10/24 05/14/24 Carlos Alberto King MD, [place] [address] [place] [address] Department of Psychosocial Oncology and Palliative Care, [place] [address] Jaelyn@[email or web address] Hospice and Palliative Care 04/05/24 Patria Luevano RN [address] [place] [address] [email or web address]@[facility] Primary Infusion Nurse 05/15/24 Jennie Ferreira RN [address] [place] [address] ALISON@[email or web address] Associate Infusion Nurse 10/02/24 documented as of this encounter Additional Source Comments The information contained in this document represents components of the legal health record. It is not the complete legal health record.[facility]
--- OUTSIDE RECORDS SUMMARY | 2024-11-15 07:32 | XMS_ITS | Encounter Summary ---
Author Organization [facility] Address [address] [place] [address] Phone Care Team Providers Care Manager User Interface Name Role Phone Indigo DuSW Unavailable [phone] Grecia Bonilla MD Primary Care Provider Hermelinda Barajas MD Unavailable [phone] Cindi Shell PHOTO STYLIST Unavailable Zuri Ha RN Unavailable Sandra Ruiz@[email or web address] Carlos Alberto King MD, [place] Unavailable Patria Luevano RN Unavailable TOBIAS [email or web address].[facility] Jennie Ferreira RN Unavailable ALISON@ [facility].[place] Encounter Details Date Type Department Care Team (Late st Contact Info) Description 01/11/2024 Procedure Pass [facility] [address] [place] [address] Social History Tobacco Use Types Packs/Day Years [...] st Contact Info) Description 10/18/2024 Procedure Pass [facility] Radiology [address] [place] [address] 10/23/2024 Procedure Pass [facility] EKG [address] [place] [address] 10/23/2024 Procedure Pass [facility] EKG [address] [place] [address] 11/13/2024 Procedure Pass [address] [address] 11/13/2024 Procedure Pass [address] [address] 11/16/2024 8:30 AM EDT Appointment [facility] MSK Diagnostic X-ray Imaging, [place] [address] [place] [address] Andrew Lima MD [address] [place] [address] Department [place] [address] [email or web address] 11/16/2024 9:00 AM EDT Office Visit [facility] Department of Orthopaedics [address] [place] [address] Andrew Lima MD [address] [place] [address] Department [place] [address] [email or web address] 11/22/2024 1:00 PM EDT Office Visit [facility] Endocrine, Diabetes, and Hypertension 221 [facility] 2nd [place] [address] Svetlana Lucero, PharmD 75 [place] [address] [email or web address] 11/26/2024 1:00 PM EDT Social Work Social Work Department, [facility] [address] [address] Hermelinda Barajas MD [address] [address] Pedro@[facility] Indigo Du, [facility] [address] [place] [address] [email or web address] 12/04/2024 7:30 AM EDT Blood Draw Laboratory Services, [address], 2nd [place] [address] Hermelinda Barajas MD [address] [place] [address] Pedro@[facility] 12/04/2024 8:30 AM EDT Office Visit [facility] Thor[facility] On[facility], [address], 9th [place] [address] Cindi Shell CNP [address] [place] [address] Benedict east@[facility] Hermelinda Barajas MD [address] [address] Pedro@[facility] 12/04/2024 9:30 AM EDT Infusion Infusion Therapy Services [facility] 9, [address], 9th [place] [address] Cindi Shell CNP [address] [place] [address] Benedict east@[facility] Patria Luevano, BRIELLE [address] [place] [address] [email or web address]@[facility] 12/25/2024 6:30 AM EDT [facility], [address], 2nd [place] [address] Cindi Shell CNP [address] [place] [address] Benedict east@[facility] 12/25/2024 7:30 AM EDT Office Visit [facility], [address], 9th [place] [address] Cindi Shell CNP [address] [place] [address] Benedict east@[facility] 12/25/2024 8:30 AM EDT Infusion Infusion Therapy Services [facility] [address], [address], 9th [place] [address] Cindi Shell CNP [address] [place] [address] Benedict east@[facility] 01/11/2025 11:45 AM EST Appointment [facility], Ct Scan - [facility] 30 [place] [address] Hermelinda Barajas MD 450 [facility] 1240 [place] [address] Pedro@[facility] 01/15/2025 7:10 AM EST Blood Draw Laboratory Services, [address], 2nd [place] [address] Cindi Shell CNP 450 [place] [address] Benedict east@[facility] 01/15/2025 8:00 AM EST Office Visit [facility]acic [facility], [facility] 450 [facility], 9th [place] [address] Hermelinda Barajas MD 450 [facility] 1240 [place] [address] Pedro@[facility] 01/15/2025 9:00 AM EST Infusion Infusion Therapy Services [facility] 9, [facility] 450 [facility], 9th [place] [address] Cindi Shell PHOTO STYLIST 450 [place] [address] Benedict east@[facility] 01/18/2025 7:35 AM EST Hospital Encounter [facility] EKG [address] [place] [address] Guanakito Gallardo MD [address] [place] [address] [place] [address] Arrived 01/18/2025 8:30 AM EST Appointment [facility] [address] [place] [address] Odalis Jimenez PA-C 70 [facility] 5th [place] [address] [email or web address] 02/01/2025 8:40 AM EST Office Visit [facility] Otolaryngology 45 [facility]2 [place] [address] Demetrio Armstrong MD [address] [place] [phone] [email or web address] 02/25/2025 9:30 AM EST Telemedicine [facility] Cardiovascular Clinic 70 [place] [address] Guanakito Gallardo MD [address] [place] [address] [place] [address] [email or web address] 07/04/2025 10:00 AM EDT Telemedicine [facility] Cardiovascular Clinic [address] [place] [address] Thiago Bean MD [address] [place] [address] [email or web address] 10/18/2025 7:05 AM EDT Hospital Encounter [facility] EKG [address] [place] [address] Guanakito Gallardo MD [address] [place] [address] [place] [address] [email or web address] Arrived documented as of this encounter Visit Diagnoses Not on filedocumented in this encounter Additional Health Concerns Infection Onset Date Last Indicated Resolved Time CoV-Risk 07/17/2024 07/17/2024 07/28/2024 1:21 AM EDT documented as of this encounter Care Teams Manager User Interface Relationship Specialty Start Date End Date Grecia Bonilla MD [address] [place] [address] [place] [phone] PCP - General Internal Medicine 10/13/22 Indigo Du, [facility] [address] [place] [address] [email or web address] [employer] Oncology 07/27/22 Hermelinda Barajas MD [address] [place] [address] [place] [address] Pedro@[facility] Medical Oncology 11/29/22 Cindi Shell CNP [address] [place] [address] Fina@[email or web address] Gerontology 11/29/22 Zuri Ha, BRIELLE [address] [place] [address] Milton@[facility] Primary Infusion Nurse 01/10/24 05/14/24 Carlos Alberto King MD, [place] [address] [place] [address] Department of Psychosocial Oncology and Palliative Care, [place] [address] Jaelyn@[facility] Hospice and Palliative Care 04/05/24 Patria Luevano, RN [address] [place] [address] STEFANO@[facility] Primary Infusion Nurse 05/15/24 Jennie Ferreira RN [address] [place] [address] [email or web address] Associate Infusion Nurse 10/02/24 documented as of this encounter Additional Source Comments The information contained in this document represents components of the legal health record. It is not the complete legal health record.[facility]
--- OUTSIDE RECORDS SUMMARY | 2024-11-15 07:32 | XMS_ITS | Encounter Summary ---
Author Organization [facility] Address [address] [facility] [address] [place] [address] Phone Care Team Providers Care Sander Hand Name Role Phone Indigo DuSW Unavailable [phone] Aubrey Taylor MD Primary Care Provider [phone] aMrilynn Daly NP Primary Care Provider Unavailab Grecia Rosado MD Primary Care Provider Hermelinda Barajas MD Unavailable [phone] Cindi Shell [facility] Unavailable Zuri Ha RN Unavailable Sandra [email or web address] Carlos Alberto [place] MD, [place] Unavailable [phone] Patria Luevano RN Unavailable TOBIAS [email or web address] Jennie Frereira RN Unavailable ALISON@ [email or web address] Encounter Details Date Type Department Care Team (Late st Contact Info) Description 09/10/2022 Procedure Pass [facility] [place] [facility] [place] [place] 300 [facility] 3rd [place] [address] Social History Tobacco Use Types [...] st Contact Info) Description 10/18/2024 Procedure Pass [facility] Radiology 70 [place] [address] 10/23/2024 Procedure Pass [facility] EKG 70 [place] [address] 10/23/2024 Procedure Pass [facility] EKG 70 [place] [address] 11/13/2024 Procedure Pass [address] [address] 11/13/2024 Procedure Pass [address] [address] 11/16/2024 8:30 AM EDT Appointment [facility] MS Diagnostic X-ray Imaging, [place] [address] [place] [address] Andrew Lima MD [address] [place] [address] Department [place] [address] [email or web address] 11/16/2024 9:00 AM EDT Office Visit [facility] Department of Orthopaedics 60 [place] [address] Andrew Lima MD [address] [place] [address] Department [place] [address] [email or web address] 11/22/2024 1:00 PM EDT Office Visit [facility] Endocrine, Diabetes, and Hypertension 221 [facility] 2nd [place] [address] Svetlana Lucero, PharmD 75 [place] [address] nilam@[email or web address] 11/26/2024 1:00 PM EDT Social Work Social Work Department, [facility] [place] [address] [address] Hermelinda Barajas MD [address] [place] [address] Pedro@[email or web address] Indigo Du, [address] [address] [email or web address] 12/04/2024 7:30 AM EDT Blood Draw Laboratory Services, [address], [address] [place], [place] Hermelinda Barajas MD [address] [place] [address] Pedro@[facility] 12/04/2024 8:30 AM EDT Office Visit [facility] Center for Thoracic Oncology, [facility] 450 [facility], 9th [place] [address] Cindi Shell CNP 450 [place] [address] Benedict [email or web address] Hermelinda Barajas MD [address] [place] [phone] [email or web address] 12/04/2024 9:30 AM EDT Infusion In[facility], [address], 9th [place] [address] Cindi Shell CNP [address] [place] [address] Benedict east@[facility] Patria Luevano RN [address] [place] [phone] [email or web address]@[facility] 12/25/2024 6:30 AM EDT Blood Draw Laboratory Services, [address], 2nd [place] [address] Cindi Shlel CNP [address] [place] [address] Benedict east@[facility] 12/25/2024 7:30 AM EDT Office Visit [facility] Center for Thoracic Oncology, [address], 9th [place] [address] Cindi Shell CNP [address] [place] [address] Benedict east@[facility] 12/25/2024 8:30 AM EDT Infusion In[facility], [address], 9th [place] [address] Cindi Shell CNP [address] [place] [address] Benedict east@[facility] 01/11/2025 11:45 AM EST Appointment [facility], Ct Scan - [facility] 30 [place] [address] Hermelinda Barajas MD 450 [facility] 1240 [place] [address] Pedro@[facility] 01/15/2025 7:10 AM EST Blood Draw Laboratory Services, [facility] 450 [facility], 2nd [place] [address] Cindi Shell CNP 450 [place] [address] Benedict east@[facility] 01/15/2025 8:00 AM EST Office Visit [facility] Center for Thoracic Oncology, [facility] 450 [facility], 9th [place] [address] Hermelinda Barajas MD 450 [facility] 1240 [place] [address] Pedro@[facility] 01/15/2025 9:00 AM EST Infusion Infusion Therapy Services [facility] 9, [facility] 450 [facility], 9th [place] [address] Cindi Shell CNP 450 [place] [address] Benedict east@[facility] 01/18/2025 7:35 AM EST Hospital Encounter [facility] EKG 70 [place] [address] Guanakito Gallardo MD [address] [place] [address] Arrived 01/18/2025 8:30 AM EST Appointment [facility] 70 [place] [address] Odalis Jimenez PA-C 70 [facility] 5th [place] [address] [email or web address] 02/01/2025 8:40 AM EST Office Visit [facility] Otolaryngology 45 [facility]2 [place] [address] Demetrio Armstrong MD 45 [place] [phone] [email or web address] 02/25/2025 9:30 AM EST Telemedicine [facility] Cardiovascular Clinic 70 [place] [address] Guanakito Gallardo MD [address] [place] [address] 07/04/2025 10:00 AM EDT Telemedicine [facility] Cardiovascular Clinic 70 [place] [address] Thiago Bean MD [address] [place] [address] [email or web address] 10/18/2025 7:05 AM EDT Hospital Encounter [facility] EKG 70 [place] [address] Guanakito Gallardo MD [address] [place] [address] Arrived documented as of this encounter Visit Diagnoses Not on filedocumented in this encounter Additional Health Concerns Infection Onset Date Last Indicated Resolved Time COVID-19 04/06/2023 04/06/2023 04/27/2023 1:21 AM EST CoV-Risk 07/17/2024 07/17/2024 07/28/2024 1:21 AM EDT documented as of this encounter Care Teams Sander Hand Relationship Specialty Start Date End Date Aubrey Taylor MD [address] [place] [address] PCP - General Internal Medicine 08/13/22 09/14/22 Marilynn Daly NP PCP - General Nurse Practitioner 09/15/22 10/12/22 Grecia Bonilla MD [address] [place] [address] [place] [address] PCP - General Internal Medicine 10/13/22 Indigo Du, [facility] 300 [place] [address] [email or web address] Animal Therapist Oncology 07/27/22 Hermelinda Barajas MD [address] [place] [address] [place] [address] Pedro@[facility] Medical Oncology 11/29/22 Cindi Shell CNP [address] [place] [address] Fina@[email or web address] Gerontology 11/29/22 Zuri Ha RN 450 [place], [place] Milton@[email or web address] Primary Infusion Nurse 01/10/24 05/14/24 Carlos Alberto King MD, [place] [address] [place] [address] Department of Psychosocial Oncology and Palliative Care, [place] [phone] Jaelyn@[email or web address] Hospice and Palliative Care 04/05/24 Patria Luevano RN [address] [place] [address] [email or web address]@[facility] Primary Infusion Nurse 05/15/24 Jennie Ferreira RN [address] [place] [address] ALISON@[facility] Associate Infusion Nurse 10/02/24 documented as of this encounter Additional Source Comments The information contained in this document represents components of the legal health record. It is not the complete legal health record.[facility]
--- OUTSIDE RECORDS SUMMARY | 2024-11-15 07:32 | XMS_ITS | Encounter Summary ---
Author Organization [facility] Address [address] [facility] [address] [place] [address] Phone Care Team Providers Care Harness Preparer Name Role Phone Indigo DuSW Unavailable Grecia Bonilla MD Primary Care Provider Hermelinda Barajas MD Unavailable [phone] Cindi Shell INCIDENT ENGINEER Unavailable [phone] Zuri Ha RN Unavailable Sandra Ruiz@[facility] Carlos Alberto King MD, [place] Unavailable Patria Luevano RN Unavailable TOBIAS HYATT@[facility] Jennie Ferreira RN Unavailable ALISON@ [facility] Encounter Details Date Type Department Care Team (Late st Contact Info) Description 04/25/2023 Telephone [facility], [place] [facility] [place] [address] [facility], 9th [place] [address] Patria Mar, RN [address] [place] [address] [email or web address] Social History Tobacco Use Types Packs/Day Years Used Date Smoking Tobacco: Former Cigarettes 1 20 2 - 2022 Smokeless Tobacco: Never Education [...] st Contact Info) Description 10/18/2024 Procedure Pass [facility] Radiology [address] [place] [address] 10/23/2024 Procedure Pass [facility] EKG [address] [place] [address] 10/23/2024 Procedure Pass [facility] EKG [address] [place] [address] 11/13/2024 Procedure Pass [address] [address] 11/13/2024 Procedure Pass [address] [address] 11/16/2024 8:30 AM EDT Appointment [facility] MSK Diagnostic X-ray Imaging, [place] [address] [place] [address] Andrew Lima MD [address] [place] [address] Department [place] [address] [email or web address] 11/16/2024 9:00 AM EDT Office Visit [facility] Department of Orthopaedics [address] [place] [address] Andrew Lima MD [address] [place] [address] Department [place] [address] [email or web address] 11/22/2024 1:00 PM EDT Office Visit [facility] Endocrine, Diabetes, and Hypertension [address] [facility] 2nd [place] [address] Svetlana Lucero, RigoD [address] [place] [address] [email or web address] 11/26/2024 1:00 PM EDT Social Work Social Work Department, [facility] [address] [address] Hermelinda Barajas MD [address] [address] Pedro@[facility] Indigo Du, [facility] [address] [place] [address] [email or web address] 12/04/2024 7:30 AM EDT Blood Draw Laboratory Services, [address], 2nd [place] [address] Hermelinda Barajas MD 450 [facility] [address] [place] [address] Pedro@[facility] 12/04/2024 8:30 AM EDT Office Visit [facility], [facility] [address] [facility], 9th [place] [address] Cindi Shell CNP 450 [place] [address] Benedict east@[facility] Hermelinda Barajas MD [address] [place] [address] 1240 [place] [address] Pedro@[facility] 12/04/2024 9:30 AM EDT Infusion Infusion Therapy Services [place] 9, [address], 9th [place] [address] Cindi Shell, INCIDENT ENGINEER [address] [place] [address] Benedict east@[facility] Patria Luevano, BRIELLE [address] [place] [address] [email or web address]@[facility] 12/25/2024 6:30 AM EDT Blood Draw Laboratory Services, [address], 2nd [place] [address] Cindi Shell INCIDENT ENGINEER [address] [place] [address] Benedict east@[facility] 12/25/2024 7:30 AM EDT Office Visit [facility], [address], 9th [place] [address] Cindi Shell INCIDENT ENGINEER [address] [place] [address] Benedict east@[facility] 12/25/2024 8:30 AM EDT Infusion Infusion [facility] Services [place] 9, [address], 9th [place] [address] Cindi Shell CNP 450 [place] [address] Benedict east@[facility] 01/11/2025 11:45 AM EST Appointment [facility], Ct Scan - [facility] 30 [place] [address] Hermelinda Barajas MD [address] [place] [address] [place] [address] Pedro@[facility] 01/15/2025 7:10 AM EST Blood Draw Laboratory Services, [address], 2nd [place] [address] Cindi Shell CNP [address] [place] [address] Benedict east@[facility] 01/15/2025 8:00 AM EST Office Visit [facility], [address], 9th [place] [address] Hermelinda Barajas MD [address] [place] [address] Pedro@[facility] 01/15/2025 9:00 AM EST Infusion Infusion [facility] [place] 9, [address], 9th [place] [address] Cindi Shell CNP [address] [place] [address] Benedict east@[facility] 01/18/2025 7:35 AM EST Hospital Encounter [facility] EKG [address] [place] [address] Guanaktio Gallardo MD [address] [place] [address] [email or web address] Arrived 01/18/2025 8:30 AM EST Appointment [facility] 70 [place] [address] Odalis Jimenez PA-C 70 [facility] 5th [place] [address] [email or web address] 02/01/2025 8:40 AM EST Office Visit [facility] Otolaryngology 45 [facility]2-2 [place] [address] Demetrio Armstrong MD 45 [place] [phone] [email or web address] 02/25/2025 9:[address] [facility] Cardiovascular Clinic [address] [place] [address] Guanakito Gallardo MD [address] [place] [address] [email or web address] 07/04/2025 10:[address] [facility] Cardiovascular Clinic [address] [place] [address] Thiago Bean MD [address] [place] [address] [email or web address] 10/18/2025 7:05 AM EDT Hospital Encounter [facility] EKG [address] [place] [address] Guanakito Gallardo MD [address] [place] [address] [email or web address] Arrived documented as of this encounter Visit Diagnoses Not on filedocumented in this encounter Additional Health Concerns Infection Onset Date Last Indicated Resolved Time COVID-19 04/06/2023 04/06/2023 04/27/2023 1:21 AM EST CoV-Risk 07/17/2024 07/17/2024 07/28/2024 1:21 AM EDT documented as of this encounter Care Teams Harness Preparer Relationship Specialty Start Date End Date Grecia Bonilla MD [address] [place] [address] [place] [phone] PCP - General Internal Medicine 10/13/22 Indigo Du, [facility] [address] [place] [address] [email or web address] Digital Librarian Oncology 07/27/22 Hermelinda Barajas MD [address] [place] [address] Pedro@[email or web address] Medical Oncology 11/29/22 Cindi Shell CNP [address] [place] [address] Fina@[email or web address] Gerontology 11/29/22 Zuri Ha, BRIELLE [address] [place] [address] Milton@[facility] Primary Infusion Nurse 01/10/24 05/14/24 Carlos Alberto King MD, [place] [address] [place] [address] Department of Psychosocial Oncology and Palliative Care, [place] [phone] Jaelyn@[facility] Hospice and Palliative Care 04/05/24 Patria Luevano, BRIELLE [address] [place] [address] [email or web address]@[facility] Primary Infusion Nurse 05/15/24 Jennie Ferreira RN [address] [place] [address] ALISON@[email or web address] Associate Infusion Nurse 10/02/24 documented as of this encounter Additional Source Comments The information contained in this document represents components of the legal health record. It is not the complete legal health record.[facility]
--- OUTSIDE RECORDS SUMMARY | 2024-11-15 07:32 | XMS_ITS | Encounter Summary ---
Author Organization [facility] Address [address] [place] [address] Phone Care Team Providers Care Farm Products Shipper Name Role Phone Indigo DuSW Unavailable Grecia Bonilla MD Primary Care Provider Hermelinda Barajas MD Unavailable [phone] Cindi Shell CDL INSTRUCTOR Unavailable [phone] Zuri Ha RN Unavailable Sandra Ruiz@[email or web address] Carlos Alberto King MD, [place] Unavailable Patria Luevano RN Unavailable TOBIAS [email or web address] Jennie Ferreira RN Unavailable ALISON@ [facility] Encounter Details Date Type Department Care Team (Late st Contact Info) Description 10/22/2022 Procedure Pass [facility], Ct Scan - [facility] 30 [place] [address] Social History Tobacco Use Types Packs/Day Years [...] st Contact Info) Description 10/18/2024 Procedure Pass [facility] Radiology [address] [place] [address] 10/23/2024 Procedure Pass [facility] EKG [address] [place] [address] 10/23/2024 Procedure Pass [facility] EKG [address] [place] [address] 11/13/2024 Procedure Pass [address] [address] 11/13/2024 Procedure Pass [address] [address] 11/16/2024 8:30 AM EDT Appointment [facility] MSK Diagnostic X-ray Imaging, [place] [address] [place] [address] Andrew Lima MD [address] [place] [address] Department [place] [address] [email or web address] 11/16/2024 9:00 AM EDT Office Visit [facility] Department of Orthopaedics 60 [place] [address] Andrew Lmia MD [address] [place] [address] Department [place] [address] [email or web address] 11/22/2024 1:00 PM EDT Office Visit [facility] Endocrine, Diabetes, and Hypertension [address] [facility] 2nd [place] [address] Svetlana Lucero, PharmD 75 [place] [address] [email or web address] 11/26/2024 1:00 PM EDT Social Work Social Work Department, [facility] [address] [address] Hermelinda Barajas MD [address] [address] Pedro@[facility] Indigo Du, [address] [address] [email or web address] 12/04/2024 7:30 AM EDT Blood Draw Laboratory Services, [address], [address]nd [place] [address] Hermelinda Barajas MD [address] [address] Pedro@[facility] 12/04/2024 8:30 AM EDT Office Visit [facility] for Thoracic On[facility], [address], 9th [place] [address] Cindi Shell CNP 450 [place] [address] Benedict [email or web address]@[facility] Hermelinda Barajas MD 450 [facility] [address] [place] [address] Pedro@[facility] 12/04/2024 9:30 AM EDT Infusion Infusion Therapy Services [place] 9, [address], 9th [place] [address] Cindi Shell CNP [address] [place] [address] Benedict east@[facility] Patria Luevano, BRIELLE [address] [place] [address] [email or web address]@[facility] 12/25/2024 6:30 AM EDT Blood Draw Laboratory Services, [address], 2nd [place] [address] Cindi Shell CNP [address] [place] [address] Benedict east@[facility] 12/25/2024 7:30 AM EDT Office Visit [facility], [address], 9th [place] [address] Cindi Shell CNP [address] [place] [address] Benedict east@[facility] 12/25/2024 8:30 AM EDT Infusion Infusion [facility] Services [place] 9, [address], 9th [place] [address] Cindi Shell CNP [address] [place] [address] Benedict east@[facility] 01/11/2025 11:45 AM EST Appointment [facility], Ct Scan - [facility] 30 [place] [address] Hermelinda Barajas MD 450 [facility] 1240 [place] [address] Pedro@[facility] 01/15/2025 7:10 AM EST Blood Draw Laboratory Services, [facility] 450 [facility], 2nd [place] [address] Cindi Shell CNP 450 [place] [address] Benedict east@[facility] 01/15/2025 8:00 AM EST Office Visit [facility] Center for Thoracic Oncology, [facility] 450 [facility], 9th [place] [address] Hermelinda Barajas MD [address] [place] [address] [place] [address] Pedro@[facility] 01/15/2025 9:00 AM EST Infusion Infusion Therapy Services [place] 9, [facility] 450 [facility], 9th [place] [address] Cindi Shell CDL INSTRUCTOR 450 [place] [address] Benedict east@[facility] 01/18/2025 7:35 AM EST Hospital Encounter [facility] EKG 70 [place] [address] Guanakito Gallardo MD [address] [place] [address] Cardiology Division [place], [place] [phone] Arrived 01/18/2025 8:30 AM EST Appointment [facility] 70 [place] [address] Odalis Jimenez PA-C 70 [facility] 5th [place] [address] [email or web address] 02/01/2025 8:40 AM EST Office Visit [facility] Otolaryngology 45 [facility] ASB2-2 [place] [address] Demetrio Armstrong MD 45 [place] [phone] [email or web address] 02/25/2025 9:30 AM EST Telemedicine [facility] Cardiovascular Clinic 70 [place] [address] Guanakito Gallardo MD [address] [place] [address] [place] [address] [email or web address] 07/04/2025 10:00 AM EDT Telemedicine [facility] Cardiovascular Clinic 70 [place] [address] Thiago Bean MD [address] [place] [address] [email or web address] 10/18/2025 7:05 AM EDT Hospital Encounter [facility] EKG 70 [place] [address] Guanakito Gallardo MD [address] [place] [address] [place] [address] [email or web address] Arrived documented as of this encounter Visit Diagnoses Not on filedocumented in this encounter Additional Health Concerns Infection Onset Date Last Indicated Resolved Time COVID-19 04/06/2023 04/06/2023 04/27/2023 1:21 AM EST CoV-Risk 07/17/2024 07/17/2024 07/28/2024 1:21 AM EDT documented as of this encounter Care Teams Farm Products Shipper Relationship Specialty Start Date End Date Grecia Bonilla MD [address] [place] [address] [place] [address] PCP - General Internal Medicine 10/13/22 Indigo Du, [facility] 300 [place] [address] [email or web address] Greige Goods Inspector Oncology 07/27/22 Hermelinda Barajas MD [address] [place] [address] Pedro@[facility] Medical Oncology 11/29/22 Cindi Shell CNP [address] [place] [address] Fina@[facility] Gerontology 11/29/22 Zuri Ha RN [address] [place] [address] Milton@[facility] Primary Infusion Nurse 01/10/24 05/14/24 Carlos Alberto King MD, [place] [address] [place] [address] Department of Psychosocial Oncology and Palliative Care, [place] [address] Jaelyn@[facility] Hospice and Palliative Care 04/05/24 Patria Luevano, BRIELLE [address] [place] [address] STEFANO@[facility] Primary Infusion Nurse 05/15/24 Jennie Ferreira, BRIELLE [address] [place], [place] [address] [email or web address] Associate Infusion Nurse 10/02/24 documented as of this encounter Additional Source Comments The information contained in this document represents components of the legal health record. It is not the complete legal health record.[facility]
--- OUTSIDE RECORDS SUMMARY | 2024-11-15 07:32 | XMS_ITS | Encounter Summary ---
Author Organization [facility] Address [address] [place] [address] Phone Care Team Providers Care Store Group Manager Name Role Phone Aubrey Taylor MD Primary Care Provider [phone] Indigo Du [facility] Unavailable Jn Cline DO Primary Care Provider [phone] Aubrey Taylor MD Primary Care Provider [phone] Marilynn Daly NP Primary Care Provider Unavailab Grecia Rosado MD Primary Care Provider Hermelinda Barajas MD Unavailable [phone] Cindi Shell REVENUE COORDINATOR Unavailable Zuri Ha RN Unavailable Sandra [email or web address] Carlos Alberto King MD, [place] Unavailable [phone] Patria Luevano RN Unavailable TOBIAS [email or web address] Jennie Ferreira RN Unavailable [email or web address] Encounter Details Date Type Department Care Team (Late st Contact Info) Description 06/25/2022 Procedure Pass [facility] 70 [place] [address] Social History Tobacco Use Types Packs/Day Years [...] st Contact Info) Description 10/18/2024 Procedure Pass [facility] Radiology [address] [place] [address] 10/23/2024 Procedure Pass [facility] EKG 70 [place] [address] 10/23/2024 Procedure Pass [facility] EKG 70 [place] [address] 11/13/2024 Procedure Pass [address] [address] 11/13/2024 Procedure Pass [address] [address] 11/16/2024 8:30 AM EDT Appointment [facility] MS Diagnostic X-ray Imaging, [address] [place] [address] Andrew Lima MD [address] [place] [address] Department [place] [address] [email or web address] 11/16/2024 9:00 AM EDT Office Visit [facility] Department of Orthopaedics 60 [place] [address] Andrew Lima MD [address] [place] [address] Department [place] [address] [email or web address] 11/22/2024 1:00 PM EDT Office Visit [facility] Endocrine, Diabetes, and Hypertension [address] [facility] 2nd [place] [address] Svetlana Lucero, PharmD 75 [place] [address] [email or web address] 11/26/2024 1:00 PM EDT Social Work Social Work Department, [facility] [place] [address] [address] Hermelinda Barajas MD [address] [address] Pedro@[facility] Indigo Du, [address] [address] [email or web address] 12/04/2024 7:30 AM EDT Blood Draw Laboratory Services, [address], 2nd [place] [address] Hermelinda Barajas MD [address] [place] [address] Pedro@[facility] 12/04/2024 8:30 AM EDT Office Visit [facility] Center for Thoracic Oncology, [facility] [address] [facility], 9th [place] [address] Cindi Shell CNP [address] [place] [address] Benedict [email or web address] Hermelinda Barajas MD [address] [address] [email or web address] 12/04/2024 9:30 AM EDT Infusion Infusion Therapy [facility], [address], 9th [place] [address] Cindi Shell CNP [address] [place] [address] Benedict east@[facility] Patria Luevano, BRIELLE [address] [place] [address] [email or web address]@[email or web address] 12/25/2024 6:30 AM EDT Blood Draw Laboratory Services, [address], 2nd [place] [address] Cindi Shell CNP [address] [place] [address] Benedict east@[facility] 12/25/2024 7:30 AM EDT Office Visit [facility], [address], 9th [place] [address] Cindi Shell CNP [address] [place] [address] Benedict east@[facility] 12/25/2024 8:30 AM EDT Infusion Infusion Therapy Services [place] [address], [address], 9th [place] [address] Cindi Shell CNP [address] [place] [address] Benedict east@[facility] 01/11/2025 11:45 AM EST Appointment [facility], Ct Scan - [facility] 30 [place] [address] Hermelinda Barajas MD 450 [facility] 1240 [place] [address] Pedro@[facility] 01/15/2025 7:10 AM EST Blood Draw Laboratory Services, [address], 2nd [place] [address] Cindi Shell CNP [address] [place] [address] Benedict east@[facility] 01/15/2025 8:00 AM EST Office Visit [facility], [facility] [address] [facility], 9th [place] [address] Hermelinda Barajas MD [address] [place] [address] 1240 [place] [address] Pedro@[facility] 01/15/2025 9:00 AM EST Infusion Infusion Therapy Services Yawkey 9, [facility] 450 [facility], 9th [place] [address] Cindi Shell REVENUE COORDINATOR 450 [place] [address] Benedict east@[facility] 01/18/2025 7:35 AM EST Hospital Encounter [facility] EKG 70 [place] [address] Guanakito Gallardo MD [address] [place] [address] [place] [address] Arrived 01/18/2025 8:30 AM EST Appointment [facility] 70 [place] [address] Odalis Jimenez PA-C 70 [facility] 5th [place] [address] [email or web address] 02/01/2025 8:40 AM EST Office Visit [facility] Otolaryngology 45 [facility]2 [place] [address] Demetrio Armstrong MD 45 [place] [phone] [email or web address] 02/25/2025 9:30 AM EST Telemedicine [facility] 70 [place] [address] Guanakito Gallardo MD [address] [place] [address] [email or web address] 07/04/2025 10:00 AM EDT Telemedicine [facility] [address] [place] [address] Thiago Bean MD [address] [place] [address] [email or web address] 10/18/2025 7:05 AM EDT Hospital Encounter [facility] EKG 70 [place] [address] Guanakito Gallardo MD [address] [place] [address] [email or web address] Arrived documented as of this encounter Visit Diagnoses Not on filedocumented in this encounter Additional Health Concerns Infection Onset Date Last Indicated Resolved Time COVID-19 04/06/2023 04/06/2023 04/27/2023 1:21 AM EST CoV-Risk 07/17/2024 07/17/2024 07/28/2024 1:21 AM EDT documented as of this encounter Care Teams Store Group Manager Relationship Specialty Start Date End Date Aubrey Taylor MD 46 [place] [address] PCP - General Internal Medicine 05/28/22 08/03/22 Jn Cline DO [address] [address] [email or web address] PCP - General Hospitalist 08/04/22 08/12/22 [place] [address] PCP - General Internal Medicine 08/13/22 09/14/22 Marilynn Daly NP PCP - General Nurse Practitioner 09/15/22 10/12/22 Grecia Bonilla MD [address] [place] [phone] PCP - General Internal Medicine 10/13/22 Indigo Du, HOSPITAL MEDICINE DIRECTOR 300 [place] [address] [email or web address] Smoking Tobacco Packing Machine Hand Oncology 07/27/22 Hermelinda Barajas MD [facility] Wendy Shen 1240 [place] [address] Pedro@[email or web address] Medical Oncology 11/29/22 Cindi Shell CNP [address] [place] [address] Fina@[email or web address] Gerontology 11/29/22 Zuri Ha RN [address] [place] [address] Milton@[facility] Primary Infusion Nurse 01/10/24 05/14/24 Carlos Alberto King MD, [place] [address] [place] [address] Department of Psychosocial Oncology and Palliative [place], [place] [address] Jaelyn@[facility] Hospice and Palliative Care 04/05/24 Patria Luevano, BRIELLE [address] [place] [address] [email or web address] Primary Infusion Nurse 05/15/24 Jennie Ferreira RN [address] [place] [address] [email or web address] Associate Infusion Nurse 10/02/24 documented as of this encounter Additional Source Comments The information contained in this document represents components of the legal health record. It is not the complete legal health record.[facility]
--- OUTSIDE RECORDS SUMMARY | 2024-11-15 07:32 | XMS_ITS | Encounter Summary ---
Author Organization [facility] Address [address] [place] [address] Phone Care Team Providers Care Assistant Oceanographer Name Role Phone Indigo Du DIRECTOR OF PSYCHOLOGY Unavailable [phone] Grecia Bonilla MD Primary Care Provider Hermelinda Barajas MD Unavailable [phone] Cindi Shell [facility] Unavailable Carlos Alberto King MD, [place] Unavailable [phone] Patria Luevano RN Unavailable TOBIAS [email or web address] Jennie Ferreira RN Unavailable [email or web address] Encounter Details Date Type Department Care Team (Late st Contact Info) Description 05/15/2024 Procedure Pass [facility], Ct Scan - [facility] 30 [place] [address] Social History Tobacco Use Types Packs/Day Years [...] [facility] Radiology [address] [place] [address] 10/23/[address] [facility] EKG 70 [place] [address] 10/23/[address] [facility] EKG 70 [place] [address] 11/13/2024 Procedure Pass [address] [address] 11/13/2024 Procedure Pass [address] [address] 11/16/2024 8:[address] [facility] MSK Diagnostic X-ray Imaging, [place] [place] [address] Andrew Lima MD [address] [place] [address] Department [place] [address] [email or web address] 11/16/2024 9:00 AM EDT Office Visit [facility] Department of Orthopaedics 60 [place] [address] Andrew Lima MD 75 [facility] Department [place] [address] [email or web address] 11/22/2024 1:00 PM EDT Office Visit [facility] Endocrine, Diabetes, and Hypertension 221 [facility] 2nd [place] [address] Svetlana Lucero, PharmD 75 [place] [address] [email or web address] 11/26/2024 1:00 PM EDT Social Work Social Work Department, [facility] [address] [address] Hermelinda Barajas MD [address] [place] [address] [email or web address] Indigo Du, [address] [address] [email or web address] 12/04/2024 7:30 AM EDT Blood Draw Laboratory Services, [address], [address]nd [place], [place] Hermelinda Barajas MD [address] [place] [address] [place] [address] [email or web address] 12/04/2024 8:30 AM EDT Office Visit [facility] Center for Thoracic Oncology, [facility] 450 [facility], 9th [place] [address] Cindi Shell CNP 450 [place] [address] Benedict east@[facility] Hermelinda Barajas MD [address] [place] [address] 1240 [place] [address] Pedro@[email or web address] 12/04/2024 9:30 AM EDT Infusion Infusion Therapy Services Yawkey 9, [address], 9th [place] [address] Cindi Shell CNP [address] [place] [address] Benedict east@[facility] Patria Luevano, BRIELLE [address] [place] [address] [email or web address]@[facility] 12/25/2024 6:30 AM EDT Blood Draw Laboratory Services, [address], 2nd [place] [address] Cindi Shell CNP [address] [place] [address] Benedict east@[facility] 12/25/2024 7:30 AM EDT Office Visit [facility] Center for Thoracic Oncology, [address], 9th [place] [address] Cindi Shell CNP [address] [place] [address] Benedict east@[facility] 12/25/2024 8:30 AM EDT Infusion Infusion Therapy Services [facility] 9, [facility] [address] [facility], 9th [place] [address] Cindi Shell CNP [address] [place] [address] Benedict east@[facility] 01/11/2025 11:45 AM EST Appointment [facility], [address] [address] Hermelinda Barajas MD [address] [place] [address] [email or web address]@[email or web address] 01/15/2025 7:10 AM EST Blood Draw Laboratory Services, [address], 2nd [place] [address] Cindi Shell CNP [address] [place] [address] Benedict east@[facility] 01/15/2025 8:00 AM EST Office Visit [facility] Center for Thoracic Oncology, [address], 9th [place] [address] Hermelinda Barajas MD [address] [place] [address] Pedro@[email or web address] 01/15/2025 9:00 AM EST Infusion Infusion Therapy Services [facility] 9, [facility] 450 [facility], 9th [place] [address] Cindi Shell CNP 450 [place] [address] Benedict [email or web address] 01/18/2025 7:35 AM EST Hospital Encounter [facility] EKG 70 [place] [address] Guanakito Gallardo MD [address] [place] [address] [place] [address] [email or web address] Arrived 01/18/2025 8:30 AM EST Appointment [facility] Radiology 70 [place] [address] Odalis Jimenez PA-C 70 [facility] 5th [place] [address] [email or web address] 02/01/2025 8:40 AM EST Office Visit [facility] Otolaryngology 45 [facility] ASB2-2 [place] [address] Demetrio Armstrong MD 45 [place] [phone] [email or web address] 02/25/2025 9:30 AM EST Telemedicine [facility] Cardiovascular Clinic 70 [place] [address] Guanakito Gallardo MD [address] [place] [address] [place] [address] [email or web address] 07/04/2025 10:00 AM EDT Telemedicine [facility] Cardiovascular Clinic [address] [place] [address] Thiago Bean MD [address] [place] [address] [email or web address] 10/18/2025 7:05 AM EDT Hospital Encounter [facility] EKG 70 [place] [address] Guanakito Gallardo MD [address] [place] [address] Card[place] [address] [email or web address] Arrived documented as of this encounter Visit Diagnoses Not on filedocumented in this encounter Additional Health Concerns Infection Onset Date Last Indicated Resolved Time CoV-Risk 07/17/2024 07/17/2024 07/28/2024 1:21 AM EDT documented as of this encounter Care Teams Assistant Oceanographer Relationship Specialty Start Date End Date Grecia Bonilla MD [address] [place] [address] [place] [phone] PCP - General Internal Medicine 10/13/22 Indigo Du, [facility] 300 [place] [address] [email or web address] Management Nurse Rn Oncology 07/27/22 Hermelinda Barajas MD [address] [place] [address] [place] [address] Pedro@[email or web address] Medical Oncology 11/29/22 Cindi Shell CNP [address] [place] [address] [place] [address] [email or web address].COUNT INCLUDES THE [facility] Gerontology 11/29/22 Carlos Alberto King MD, [place] [address] [place] [address] Department of Psychosocial Oncology and Palliative Care, [place] [phone] Jaelyn@[facility] Hospice and Palliative Care 04/05/24 Patria Luevano, BRIELLE [address] [place] [address] [email or web address] Primary Infusion Nurse 05/15/24 Jennie Ferreira RN [address] [place] [address] [email or web address] Associate Infusion Nurse 10/02/24 documented as of this encounter Additional Source Comments The information contained in this document represents components of the legal health record. It is not the complete legal health record.[facility]
--- OUTSIDE RECORDS SUMMARY | 2024-11-15 07:32 | XMS_ITS | Encounter Summary ---
Author Organization [facility] Address [address] [place] [address] Phone Care Team Providers Care Radio Electrician Name Role Phone Indigo DuSW Unavailable Grecia Bonilla MD Primary Care Provider Hermelinda Barajas MD Unavailable [phone] Cindi Shell ASSISTED LIVING MANAGER Unavailable Zuri Ha RN Unavailable Sandra [email or web address]@[email or web address] Carlos Alberto King MD, [place] Unavailable Patria Luevano RN Unavailable TOBIAS [email or web address] Jennie Ferreira RN Unavailable [email or web address]@ [email or web address] Encounter Details Date Type Department Care Team (Late st Contact Info) Description 10/22/2022 Procedure Pass [facility], Ct Scan - [facility] 30 [place] [address] Social History Tobacco Use Types Packs/Day Years [...] st Contact Info) Description 10/18/2024 Procedure Pass [facility] Radiology 70 [place] [address] 10/23/2024 Procedure Pass [facility] EKG 70 [place] [address] 10/23/2024 Procedure Pass [facility] EKG 70 [place] [address] 11/13/2024 Procedure Pass [address] [address] 11/13/2024 Procedure Pass [address] [address] 11/16/2024 8:30 AM EDT Appointment [facility] MSK Diagnostic X-ray Imaging, [place] [place] [address] Andrew Lima MD [address] [place] [address] Department [place] [address] [email or web address] 11/16/2024 9:00 AM EDT Office Visit [facility] Department of Orthopaedics 60 [place] [address] Andrew Lima MD [address] [place] [address] Department [place] [address] [email or web address] 11/22/2024 1:00 PM EDT Office Visit [facility] Endocrine, Diabetes, and Hypertension 221 [facility] 2nd [place] [address] Svetlana Lucero, PharmD 75 [place] [address] [email or web address] 11/26/2024 1:00 PM EDT Social Work Social Work Department, [facility] [address] [address] Hermelinda Barajas MD [address] [address] Pedro@[facility] Indigo Du, [address] [address] [email or web address] 12/04/2024 7:30 AM EDT Blood Draw Laboratory Services, [address], 2nd [place] [address] Hermelinda Barajas MD [address] [address] Pedro@[facility] 12/04/2024 8:30 AM EDT Office Visit [facility], [address], 9th [place] [address] Cindi Shell CNP 450 [place] [address] Benedict east@[facility] Hermelinda Barajas MD 450 [facility] [address] [place] [address] Pedro@[facility] 12/04/2024 9:30 AM EDT Infusion Infusion Therapy Services [facility] 9, [address], 9th [place] [address] Cindi Shell CNP [address] [place] [address] Benedict east@[facility] Patria Luevano, BRIELLE [address] [place] [address] [email or web address]@[facility] 12/25/2024 6:30 AM EDT Blood Draw Laboratory Services, [address], 2nd [place] [address] Cindi Shell CNP [address] [place] [address] Benedict east@[facility] 12/25/2024 7:30 AM EDT Office Visit [facility], [address], 9th [place] [address] Cindi Shell CNP [address] [place] [address] Benedict east@[facility] 12/25/2024 8:30 AM EDT Infusion Infusion Therapy Services [facility] 9, [address], 9th [place] [address] Cindi Shell CNP [address] [place] [address] Benedict east@[facility] 01/11/2025 11:45 AM EST Appointment [facility], Ct Scan - [facility] 30 [place] [address] Hermelinda Barajas MD 450 [facility] 1240 [place] [address] Pedro@[facility] 01/15/2025 7:10 AM EST Blood Draw Laboratory Services, [facility] 450 [facility], 2nd [place] [address] Cindi Shell CNP 450 [place] [address] Benedict east@[facility] 01/15/2025 8:00 AM EST Office Visit [facility], [facility] 450 [facility], 9th [place] [address] Hermelinda Barajas MD [address] [place] [address] [place] [address] Pedro@[facility] 01/15/2025 9:00 AM EST Infusion Infusion Therapy Services [facility] 9, [facility] 450 [facility], 9th [place] [address] Cindi Shell ASSISTED LIVING MANAGER 450 [place] [address] Benedict east@[facility] 01/18/2025 7:35 AM EST Hospital Encounter [facility] EKG 70 [place] [address] Guanakito Gallardo MD [address] [place] [address] Cardiology Division [place], [place] [phone] Arrived 01/18/2025 8:30 AM EST Appointment [facility] 70 [place] [address] Odalis Jimenez PA-C 70 [facility] 5th [place] [address] [email or web address] 02/01/2025 8:40 AM EST Office Visit [facility] Otolaryngology 45 [facility] ASB2-2 [place] [address] Demetrio Armstrong MD 45 [place] [phone] [email or web address] 02/25/2025 9:30 AM EST Telemedicine [facility] 70 [place] [address] Guanakito Gallardo MD [address] [place] [address] [place] [address] [email or web address] 07/04/2025 10:00 AM EDT Telemedicine [facility] 70 [place] [address] Thiago Bean MD [address] [place] [address] [email or web address] 10/18/2025 7:05 AM EDT Hospital Encounter [facility] EKG 70 [place] [address] Guanakito Gallardo MD [address] [place] [address] [place] [address] [email or web address] Arrived documented as of this encounter Visit Diagnoses Not on filedocumented in this encounter Additional Health Concerns Infection Onset Date Last Indicated Resolved Time COVID-19 04/06/2023 04/06/2023 04/27/2023 1:21 AM EST CoV-Risk 07/17/2024 07/17/2024 07/28/2024 1:21 AM EDT documented as of this encounter Care Teams Radio Electrician Relationship Specialty Start Date End Date Grecia Bonilla MD [address] [place] [address] [place] [address] PCP - General Internal Medicine 10/13/22 Indigo Du, [facility] 300 [place] [address] [email or web address] Legal Analyst Oncology 07/27/22 Hermelinda Barajas MD [address] [place] [address] Pedro@[email or web address] Medical Oncology 11/29/22 Cindi Shell CNP [address] [place] [address] [email or web address] Gerontology 11/29/22 Zuri Ha RN [address] [place] [address] Milton@[facility] Primary Infusion Nurse 01/10/24 05/14/24 Carlos Alberto King MD, [place] [address] [place] [address] Department of Psychosocial Oncology and Palliative Care, [place] [address] Jaelyn@[facility] Hospice and Palliative Care 04/05/24 Patria Luevano, BRIELLE [address] [place] [address] [email or web address]@[facility] Primary Infusion Nurse 05/15/24 Jennie Ferreira, BRIELLE [address] [place], [place] [address] [email or web address] Associate Infusion Nurse 10/02/24 documented as of this encounter Additional Source Comments The information contained in this document represents components of the legal health record. It is not the complete legal health record.[facility]
--- OUTSIDE RECORDS SUMMARY | 2024-11-15 07:32 | XMS_ITS | Encounter Summary ---
Author Organization [facility] Address [address] [facility] [address] [place] [address] Phone Care Team Providers Care Brewing Director Name Role Phone nIdigo DuSW Unavailable Aubrey Taylor MD Primary Care Provider [phone] Marilynn Daly NP Primary Care Provider Unavailab Grecia Rosado MD Primary Care Provider Hermelinda Barajas MD Unavailable [phone] Cindi Shell [facility] Unavailable Zuri Ha RN Unavailable Sandra [email or web address] Carlos Alberto King MD, [place] Unavailable [phone] Patria Luevano RN Unavailable TOBIAS [email or web address] Jennie Ferreira RN Unavailable ALISON@ [email or web address] Encounter Details Date Type Department Care Team (Late st Contact Info) Description 08/13/2022 Procedure Pass [facility] [place] [facility] [place] [place] 300 [facility] 3rd [place] [address] Social History Tobacco Use Types [...] st Contact Info) Description 10/18/2024 Procedure Pass [facility] Radiology 70 [place] [address] 10/23/2024 Procedure Pass [facility] EKG 70 [place] [address] 10/23/2024 Procedure Pass [facility] EKG 70 [place] [address] 11/13/2024 Procedure Pass [address] [address] 11/13/2024 Procedure Pass [address] [address] 11/16/2024 8:30 AM EDT Appointment [facility] MS Diagnostic X-ray Imaging, [place] [place] [address] Andrew Lima MD [address] [place] [address] Department [place] [address] [email or web address] 11/16/2024 9:00 AM EDT Office Visit [facility] Department of Orthopaedics 60 [place] [address] Andrew Lima MD [address] [place] [address] Department [place] [address] [email or web address] 11/22/2024 1:00 PM EDT Office Visit [facility] Endocrine, Diabetes, and Hypertension 221 [facility] 2nd [place] [address] Svetlana Lucero, PharmD 75 [place] [address] [email or web address] 11/26/2024 1:00 PM EDT Social Work Social Work Department, [facility] [place] [address] [address] Hermelinda Barajas MD [address] [place] [address] Pedro@[facility] Indigo Du, [address] [address] [email or web address] 12/04/2024 7:30 AM EDT Blood Draw Laboratory Services, [address], 2nd [place], [place] Hermelinda Barajas MD [address] [place] [address] Pedro@[facility] 12/04/2024 8:30 AM EDT Office Visit [facility], [facility] 450 [facility], 9th [place] [address] Cindi Shell CNP 450 [place] [address] Benedict [email or web address] Hermelinda Barajas MD [address] [place] [address] [email or web address] 12/04/2024 9:30 AM EDT Infusion Infusion Therapy Services [facility], [address], 9th [place] [address] Cindi Shell CNP [address] [place] [address] Benedict east@[facility] Patria Luevano RN [address] [place] [address] [email or web address]@[facility] 12/25/2024 6:30 AM EDT Blood Draw Laboratory Services, [address], 2nd [place] [address] Cindi Shell CNP [address] [place] [address] Benedict east@[facility] 12/25/2024 7:30 AM EDT Office Visit [facility], [address], 9th [place] [address] Cindi Shell CNP [address] [place] [address] Benedict east@[facility] 12/25/2024 8:30 AM EDT Infusion Infusion Therapy Services [facility], [address], 9th [place] [address] Cindi Shell CNP [address] [place] [address] Benedict east@[facility] 01/11/2025 11:45 AM EST Appointment [facility], Ct Scan - [facility] 30 [place] [address] Hermelinda Barajas MD 450 [facility] 1240 [place] [address] Pedro@[facility] 01/15/2025 7:10 AM EST Blood Draw Laboratory Services, [facility] 450 [facility], 2nd [place] [address] Cindi Shell CNP 450 [place] [address] Benedict east@[facility] 01/15/2025 8:00 AM EST Office Visit [facility], [facility] 450 [facility], 9th [place] [address] Hermelinda Barajas MD 450 [facility] 1240 [place] [address] Pedro@[facility] 01/15/2025 9:00 AM EST Infusion Infusion Therapy Services Yaw[facility] 9, [facility] 450 [facility], 9th [place] [address] Cindi Shell CNP 450 [place] [address] Benedict east@[facility] 01/18/2025 7:35 AM EST Hospital Encounter [facility] EKG 70 [place] [address] Guanakito Gallardo MD [address] [place] [address] Arrived 01/18/2025 8:30 AM EST Appointment [facility] 70 [place] [address] Odalis Jimenez PA-C 70 [facility] 5th [place] [address] [email or web address] 02/01/2025 8:40 AM EST Office Visit [facility] Otolaryngology 45 [facility]2 [place] [address] Demetrio Armstrong MD 45 [place] [phone] [email or web address] 02/25/2025 9:30 AM EST Telemedicine [facility] 70 [place] [address] Guanakito Gallardo MD [address] [place] [address] 07/04/2025 10:00 AM EDT Telemedicine [facility] 70 [place] [address] Thiago Bean MD [address] [place] [address] [email or web address] 10/18/2025 7:05 AM EDT Hospital Encounter [facility] EKG 70 [place] [address] Guanakito Gallardo MD [address] [place] [address] Arrived documented as of this encounter Visit Diagnoses Not on filedocumented in this encounter Additional Health Concerns Infection Onset Date Last Indicated Resolved Time COVID-19 04/06/2023 04/06/2023 04/27/2023 1:21 AM EST CoV-Risk 07/17/2024 07/17/2024 07/28/2024 1:21 AM EDT documented as of this encounter Care Teams Brewing Director Relationship Specialty Start Date End Date Aubrey Taylor MD [address] [place] [address] PCP - General Internal Medicine 08/13/22 09/14/22 Marilynn Daly NP PCP - General Nurse Practitioner 09/15/22 10/12/22 Grecia Bonilla MD [address] [place] [address] [place] [address] PCP - General Internal Medicine 10/13/22 Indigo Du, [facility] 300 [place] [address] [email or web address] Quality Control Inspector Oncology 07/27/22 Hermelinda Barajas MD [address] [place] [address] [place] [address] Pedro@[facility] Medical Oncology 11/29/22 Cindi Shell CNP [address] [place] [address] Fina@[email or web address] Gerontology 11/29/22 Zuri Ha RN 450 [place], [place] Milton@[facility] Primary Infusion Nurse 01/10/24 05/14/24 Carlos Alberto King MD, [place] [address] [place] [address] Department of Psychosocial Oncology and Palliative Care, [place] [address] Jaelyn@[email or web address] Hospice and Palliative Care 04/05/24 Patria Luevano RN [address] [place] [address] [email or web address]@[facility] Primary Infusion Nurse 05/15/24 Jennie Ferreira RN [address] [place] [address] [email or web address] Associate Infusion Nurse 10/02/24 documented as of this encounter Additional Source Comments The information contained in this document represents components of the legal health record. It is not the complete legal health record.[facility]
--- OUTSIDE RECORDS SUMMARY | 2024-11-15 07:32 | XMS_ITS | Encounter Summary ---
Author Organization [facility] Address [address] [place] [address] Phone Care Team Providers Care Lithographic Press Operator Apprentice Name Role Phone Indigo DuSW Unavailable [phone] Grecia Bonilla MD Primary Care Provider Hermelinda Barajas MD Unavailable [phone] Cindi Shell JIGGER CROWN POUNCING MACHINE OPERATOR Unavailable Zuri Ha RN Unavailable Sandra [email or web address] Carlos Alberto King MD, [place] Unavailable [phone] Patria Luevano RN Unavailable TOBIAS [email or web address] Jennie Ferreira RN Unavailable [email or web address] Encounter Details Date Type Department Care Team (Late st Contact Info) Description 05/17/2023 Procedure Pass [facility] EKG [address] [place] [address] Social History Tobacco Use Types Packs/Day Years [...] Procedure Pass [facility] Radiology [address] [place] [address] 10/23/2024 Procedure Pass [facility] EKG [address] [place] [address] 10/23/2024 Procedure Pass [facility] EKG [address] [place] [address] 11/13/2024 Procedure Pass [address] [address] 11/13/2024 Procedure Pass [address] [address] 11/16/2024 8:30 AM EDT Appointment [facility] MSK Diagnostic X-ray Imaging, [place] [address] [place] [address] Andrew Lima MD [address] [place] [address] Department [place] [address] [email or web address] 11/16/2024 9:00 AM EDT Office Visit [facility] Department of Orthopaedics [address] [place] [address] Andrew Lima MD [address] [place] [address] Department [place] [address] [email or web address] 11/22/2024 1:00 PM EDT Office Visit [facility] Endocrine, Diabetes, and Hypertension 221 [facility] 2nd [place] [address] Svetlana Lucero, PharmD 75 [place] [address] [email or web address] 11/26/2024 1:00 PM EDT Social Work Social Work Department, [facility] 300 [facility] 4th [place] [address] Hermelinda Barajas MD [address] [address] Pedro@[email or web address] Indigo Du, [facility] 300 [place] [address] [email or web address] 12/04/2024 7:30 AM EDT Blood Draw Laboratory Services, [address], 2nd [place] [address] Hermelinda Barajas MD [address] [place] [address] Pedro@[facility] 12/04/2024 8:30 AM EDT Office Visit [facility], [address], 9th [place] [address] Cindi Shell CNP [address] [place] [address] Benedict east@[facility] Hermelinda Barajas MD [address] [place] [address] Pedro@[facility] 12/04/2024 9:30 AM EDT Infusion Infusion Therapy Services [place] [address], [address], 9th [place] [address] Cindi Shell CNP [address] [place] [address] Benedict east@[facility] Patria Luevano, BRIELLE [address] [place] [address] [email or web address]@[email or web address] 12/25/2024 6:30 AM EDT Blood Draw Laboratory Services, [address], 2nd [place] [address] Cindi Shell CNP [address] [place] [address] Benedict east@[facility] 12/25/2024 7:30 AM EDT Office Visit [facility], [address], 9th [place] [address] Cindi Shell CNP [address] [place] [address] Benedict east@[facility] 12/25/2024 8:30 AM EDT Infusion Infusion Therapy Services [facility] [address], [address], 9th [place] [address] Cindi Shell CNP [address] [place] [address] Benedict east@[facility] 01/11/2025 11:45 AM EST Appointment [facility] [place], [facility] Scan - [facility] 30 [place] [address] Hermelinda Barajas MD [address] [place] [address] 1240 [place] [address] Pedro@[facility] 01/15/2025 7:10 AM EST Blood Draw Laboratory Services, [facility] 450 [facility], 2nd [place] [address] Cindi Shell JIGGER CROWN POUNCING MACHINE OPERATOR 450 [place] [address] Benedict east@[facility] 01/15/2025 8:00 AM EST Office Visit [facility], [facility] 450 [facility], 9th [place] [address] Hermelinda Barajas MD [address] [place] [address] 1240 [place] [address] Pedro@[facility] 01/15/2025 9:00 AM EST Infusion Infusion Therapy Services [place] 9, [facility] 450 [facility], 9th [place] [address] Cindi Shell JIGGER CROWN POUNCING MACHINE OPERATOR 450 [place] [address] Benedict east@[facility] 01/18/2025 7:35 AM EST Hospital Encounter [facility] EKG [address] [place] [address] Guanakito Gallardo MD [address] [place] [address] [place] [address] Arrived 01/18/2025 8:30 AM EST Appointment [facility] [address] [place] [address] Odalis Jimenez PA-C 70 [facility] 5th [place] [address] [email or web address] 02/01/2025 8:40 AM EST Office Visit [facility] Otolaryngology 45 [facility] ASB2-2 [place] [address] Demertio Armstrong MD [address] [place] [phone] [email or web address] 02/25/2025 9:30 AM EST Telemedicine [facility] Clinic [address] [place] [address] Guanakito Gallardo MD [address] [place] [address] [place] [address] [email or web address] 07/04/2025 10:00 AM EDT Telemedicine [facility] Cardiovascular Clinic [address] [place] [address] Thiago Bean MD [address] [place] [address] [email or web address] 10/18/2025 7:05 AM EDT Hospital Encounter [facility] EKG [address] [place] [address] Guanakito Gallardo MD [address] [place] [address] [place] [address] [email or web address] Arrived documented as of this encounter Visit Diagnoses Not on filedocumented in this encounter Additional Health Concerns Infection Onset Date Last Indicated Resolved Time CoV-Risk 07/17/2024 07/17/2024 07/28/2024 1:21 AM EDT documented as of this encounter Care Teams Lithographic Press Operator Apprentice Relationship Specialty Start Date End Date Grecia Bonilla MD [address] [place] [address] [place] [address] PCP - General Internal Medicine 10/13/22 Indigo Du, [facility] 300 [place] [address] [email or web address] Order Tracer Oncology 07/27/22 Hermelinda Barajas MD [address] [place] [address] [place] [address] [email or web address] Medical Oncology 11/29/22 Cindi Shell CNP [address] [place] [address] [email or web address] Gerontology 11/29/22 Zuri Ha, BRIELLE [address] [place] [address] Milton@[facility] Primary Infusion Nurse 01/10/24 05/14/24 Carlos Alberto King MD, [place] [address] [place] [address] Department of Psychosocial Oncology and Palliative Care, [place] [address] Jaelyn@[email or web address] H[facility]ice and [facility] 04/05/24 Patria Luevano, RN [address] [place] [address] [email or web address]@[email or web address] Primary Infusion Nurse 05/15/24 Jennie Ferreira, BRIELLE [address] [place] [address] [email or web address] Associate Infusion Nurse 10/02/24 documented as of this encounter Additional Source Comments The information contained in this document represents components of the legal health record. It is not the complete legal health record.[facility]
--- OUTSIDE RECORDS SUMMARY | 2024-11-15 07:32 | XMS_ITS | Encounter Summary ---
Author Organization [facility] Address [address] [facility] [address] [place] [address] Phone Care Team Providers Care Materials Director Name Role Phone Indigo DuSW Unavailable Grecia Bonilla MD Primary Care Provider Hermelinda Barajas MD Unavailable [phone] Cindi Shell [facility] Unavailable Carlos Alberto King MD, [place] Unavailable [phone] Patria Luevano RN Unavailable TOBIAS [email or web address] Jennie Ferreira RN Unavailable [email or web address]@ [email or web address] Reason for Visit * Reason Onset Date Comments Antonshreyass/pt returning call 10/19/2024 Encounter Details Date Type Department Care Team ([facility] st Contact Info) Description 10/19/2024 Telephone [facility] [address] [place] [address] Melanie Cruz, PA-C 75 [facility] [address]BB-[address] [place] [address] [email or web address] Nancy/pt returning call Social History Tobacco Use [...] that he is supposed to download the [employer] mobile esther on his phone and there is a $12 monthly charge that he does not want to pay for. Please try calling pt again. CB# [phone] Thank you, Kirsten Majano Patient Manager Collection Department of Medicine Access Center documented in this encounter Plan of Treatment Upcoming Encounters Date Type Department Care Team (Late st Contact Info) Description 10/18/2024 Procedure Pass [facility] Radiology [address] [place] [address] 10/23/2024 Procedure Pass [facility] EKG [address] [place] [address] 10/23/2024 Procedure Pass [facility] EKG [address] [place] [address] 11/13/2024 Procedure Pass [facility] [address] [place] [address] 11/13/2024 Procedure Pass [facility] [address] [place] [address] 11/16/2024 8:30 AM EDT Appointment [facility] MSK Diagnostic X-ray Imaging, [place] [place] [address] Andrew Lima MD [address] [place] [address] Department [place] [address] [email or web address] 11/16/2024 9:00 AM EDT Office Visit [facility] Department of Orthopaedics [address] [place] [address] Andrew Lima MD [address] [place] [address] Department [place] [address] [email or web address] 11/22/2024 1:00 PM EDT Office Visit [facility] Endocrine, Diabetes, and Hypertension 221 [facility] 2nd [place] [address] Svetlana Lucero, PharmD 75 [place] [address] [email or web address] 11/26/2024 1:00 PM EDT Social Work Social Work Department, [facility] 300 [facility] 4th [place] [address] Hermelinda Barajas MD [address] [place] [address] [email or web address] Indigo Du, [facility] 300 [place] [address] [email or web address] 12/04/2024 7:30 AM EDT Blood Draw Laboratory Services, [address], 2nd Floor [place], [place] Hermelinda Barajas MD [address] [place] [address] [email or web address] 12/04/2024 8:30 AM EDT Office Visit [facility] for [facility] On[facility], [address], [address]th [place] [address] Cindi Shell LOCKSTITCH TUNNEL ELASTIC OPERATOR [address] [place] [address] Benedict east@[facility] Hermelinda Barajas MD [address] [place] [address] Pedro@[email or web address] 12/04/2024 9:30 AM EDT Infusion Infusion Therapy Services [facility] 9, [address], [address]th [place] [address] Cindi Shell LOCKSTITCH TUNNEL ELASTIC OPERATOR [address] [place] [address] Benedict east@[facility] Patria Luevano, BRIELLE [address] [place] [address] [place] [address] [email or web address]@[facility] 12/25/2024 6:30 AM EDT Blood Draw Laboratory Services, [address], 2nd [place] [address] Cindi Shell CNP 450 [place] [address] Benedict east@[facility] 12/25/2024 7:30 AM EDT Office Visit [facility], [address], 9th [place] [address] Cindi Shell CNP [address] [place] [address] Benedict east@[facility] 12/25/2024 8:30 AM EDT Infusion [facility]fusion [facility], [address], 9th [place] [address] Cindi Shell CNP [address] [place] [address] Benedict east@[facility] 01/11/2025 11:45 AM EST Appointment [facility] 30 [place] [address] Hermelidna Barajas MD [address] [place] [address] 1240 [place] [address] [email or web address] 01/15/2025 7:10 AM EST Blood Draw Laboratory Services, [address], 2nd [place] [address] Cindi Shell CNP 450 [place] [address] Benedict east@[facility] 01/15/2025 8:00 AM EST Office Visit [facility], [facility] 450 [facility], 9th [place] [address] Hermelinda Barajas MD [address] [place] [address] 1240 [place] [address] Pedro@[email or web address] 01/15/2025 9:00 AM EST Infusion [facility] [address] 450 [facility], 9th [place] [address] Cindi Shell CNP 450 [place] [address] Benedict east@[facility] 01/18/2025 7:35 AM EST Hospital Encounter [facility] EKG [address] [place] [address] Guanakito Gallardo MD 75 [facility] [place] [address] [facility] 01/18/2025 8:30 AM EST Appointment [facility] 70 [place] [address] Odalis Jimenez PA-C 70 [facility] 5th [place] [address] [email or web address] 02/01/2025 8:40 AM EST Office Visit [facility] Otolaryngology 45 [facility] ASB2-2 [place] [address] Demetrio Armstrong MD 45 [place] [phone] [email or web address] 02/25/2025 9:30 AM EST Telemedicine [facility] [address] [place] [address] Guanakito Gallardo MD [address] [place] [address] 07/04/2025 10:00 AM EDT Telemedicine [facility] [address] [place] [address] Thiago Bean MD [address] [place] [address] [email or web address]@[facility] 10/18/2025 7:05 AM EDT Hospital Encounter [facility] EKG [address] [place] [address] Guanakito Gallardo MD [address] [place] [address] Arrived documented as of this encounter Visit Diagnoses Not on filedocumented in this encounter Care Teams Materials Director Relationship Specialty Start Date End Date Grecia Bonilla MD [address] [place] [address] [place] [address] PCP - General Internal Medicine 10/13/22 Indigo Du, [facility] 300 [place] [address] [email or web address] Mill Labor Supervisor Oncology 07/27/22 Hermelinda Barajas MD [address] [place] [address] Mariah Shen 1240 [place] [address] Pedro@[facility] Medical Oncology 11/29/22 Cindi Shell CNP [address] [place] [address] Fina@[email or web address] Gerontology 11/29/22 Carlos Alberto King MD, [place] [address] [place] [address] Department of Psychosocial Oncology and Palliative Care, [place] [phone] Jaelyn@[facility] Hospice and Palliative Care 04/05/24 Patria Luevano RN [address] [place] [address] [email or web address] Primary Infusion Nurse 05/15/24 Jennie Ferreira, BRIELLE [address] [place] [address] [email or web address] Associate Infusion Nurse 10/02/24 documented as of this encounter Additional Source Comments The information contained in this document represents components of the legal health record. It is not the complete legal health record.[facility]
--- OUTSIDE RECORDS SUMMARY | 2024-11-15 07:32 | XMS_ITS | Clinical Summary ---
Author Organization [facility] Address [address] [place] [address] Care Team Providers Care Boom Worker Name Role Phone Unavailable Primary Care Provider [...]
--- OUTSIDE RECORDS SUMMARY | 2024-11-15 07:32 | XMS_ITS | Encounter Summary ---
Author Organization [facility] Address [address] [facility] [address] [place] [address] Phone Care Team Providers Care Refund Clerk Name Role Phone Indigo DuSW Unavailable Aubrey Taylor MD Primary Care Provider [phone] Marilynn Daly NP Primary Care Provider Unavailab Grecia Rosado MD Primary Care Provider Hermelinda Barajas MD Unavailable [phone] Cindi Shell [facility] Unavailable Zuri Ha RN Unavailable Sandra [email or web address] Carlos Alberto King [place], [place] Unavailable Patria Luevano RN Unavailable TOBIAS [email or web address] Jennie Ferreira RN Unavailable ALISON@ [email or web address] Encounter Details Date Type Department Care Team (Late st Contact Info) Description 09/10/2022 Procedure Pass [facility] [place] [facility] [place] 300 [facility] 3rd [place] [address] Social History Tobacco Use Types [...] st Contact Info) Description 10/18/2024 Procedure Pass [facility] Radiology [address] [place] [address] 10/23/2024 Procedure Pass [facility] EKG 70 [place] [address] 10/23/2024 Procedure Pass [facility] EKG 70 [place] [address] 11/13/2024 Procedure Pass [address] [address] 11/13/2024 Procedure Pass [address] [address] 11/16/2024 8:30 AM EDT Appointment [facility] MS Diagnostic X-ray Imaging, [place] [address] [place] [address] Andrew Lima MD [address] [place] [address] Department [place] [address] [email or web address] 11/16/2024 9:00 AM EDT Office Visit [facility] Department of Orthopaedics 60 [place] [address] Andrew Lima MD [address] [place] [address] Department [place] [address] [email or web address] 11/22/2024 1:00 PM EDT Office Visit [facility] Endocrine, Diabetes, and Hypertension 221 [facility] 2nd [place] [address] Svetlana Lucero, PharmD 75 [place] [address] nilam@[facility] 11/26/2024 1:00 PM EDT Social Work Social Work Department, [facility] [address] [address] Hermelinda Barajas MD [address] [place] [address] [email or web address]@[facility] Indigo Du, [address] [address] [email or web address] 12/04/2024 7:30 AM EDT Blood Draw Laboratory Services, [address], [address]nd [place], [place] Hermelinda Barajas MD [address] [place] [address] Pedro@[facility] 12/04/2024 8:30 AM EDT Office Visit [facility] Center for Thoracic Oncology, [facility] 450 [facility], 9th [place] [address] Cindi Shell CNP 450 [place] [address] Benedict [email or web address] Hermelinda Barajas MD [address] [place] [address] [email or web address] 12/04/2024 9:30 AM EDT Infusion Infusion Therapy Services [facility], [address], 9th [place] [address] Cindi Shell CNP [address] [place] [address] Benedict east@[facility] Patria Luevano RN [address] [place] [address] STEFANO@[facility] 12/25/2024 6:30 AM EDT Blood Draw Laboratory Services, [address], 2nd [place] [address] Cindi Shell CNP [address] [place] [address] Benedict east@[facility] 12/25/2024 7:30 AM EDT Office Visit [facility] Center [facility] Thoracic Oncology, [address], 9th [place] [address] Cindi Shell CNP [address] [place] [address] Benedict east@[facility] 12/25/2024 8:30 AM EDT Infusion Infusion [facility], [address], 9th [place] [address] Cindi Shell CNP [address] [place] [address] Benedict east@[facility] 01/11/2025 11:45 AM EST Appointment [facility] - [facility] 30 [place] [address] Hermelinda Barajas MD 450 [facility] 1240 [place] [address] Pedro@[facility] 01/15/2025 7:10 AM EST Blood Draw Laboratory Services, [facility] 450 [facility], 2nd [place] [address] Cindi Shell CNP 450 [place] [address] Benedict east@[facility] 01/15/2025 8:00 AM EST Office Visit [facility] Center for Thoracic Oncology, [facility] 450 [facility], 9th [place] [address] Hermelinda Barajas MD 450 [facility] 1240 [place] [address] Pedro@[facility] 01/15/2025 9:00 AM EST Infusion Infusion Therapy Services [facility] 9, [facility] 450 [facility], 9th [place] [address] Cindi Shell CNP 450 [place] [address] Benedict east@[facility] 01/18/2025 7:35 AM EST Hospital Encounter [facility] EKG 70 [place] [address] Guanakito Gallardo MD [address] [place] [address] Arrived 01/18/2025 8:30 AM EST Appointment [facility] 70 [place] [address] Odalis Jimenez PA-C 70 [facility] 5th [place] [address] [email or web address] 02/01/2025 8:40 AM EST Office Visit [facility] Otolaryngology 45 [facility]2 [place] [address] Demetrio Armstrong MD 45 [place] [phone] [email or web address] 02/25/2025 9:30 AM EST Telemedicine [facility] Cardiovascular Clinic 70 [place] [address] Guanakito Gallardo MD [address] [place] [address] 07/04/2025 10:00 AM EDT Telemedicine [facility] Cardiovascular Clinic 70 [place] [address] Thiago Bean MD [address] [place] [address] [email or web address] 10/18/2025 7:05 AM EDT Hospital Encounter [facility] EKG 70 [place] [address] Guanakito Gallardo MD [address] [place] [address] Arrived documented as of this encounter Visit Diagnoses Not on filedocumented in this encounter Additional Health Concerns Infection Onset Date Last Indicated Resolved Time COVID-19 04/06/2023 04/06/2023 04/27/2023 1:21 AM EST CoV-Risk 07/17/2024 07/17/2024 07/28/2024 1:21 AM EDT documented as of this encounter Care Teams Refund Clerk Relationship Specialty Start Date End Date Aubrey Taylor MD [address] [place] [address] PCP - General Internal Medicine 08/13/22 09/14/22 Marilynn Daly NP PCP - General Nurse Practitioner 09/15/22 10/12/22 Grecia Bonilla MD [address] [place] [address] [place] [address] PCP - General Internal Medicine 10/13/22 Indigo Du, [facility] 300 [place] [address] [email or web address] Associate Professor Of Biostatistics Oncology 07/27/22 Hermelinda Barajas MD [address] [place] [address] [place] [address] Pedro@[facility] Medical Oncology 11/29/22 Cindi Shell CNP [address] [place] [address] Fina@[email or web address] Gerontology 11/29/22 uZri Ha RN [address] [place], [place] Milton@[facility] Primary Infusion Nurse 01/10/24 05/14/24 Carlos Alberto King MD, [place] [address] [place] [address] Department of Psychosocial Oncology and Palliative Care, [place] [address] Jaelyn@[email or web address] Hospice and Palliative Care 04/05/24 Patria Luevano RN [address] [place] [address] STEFANO@[facility] Primary Infusion Nurse 05/15/24 Jennie Ferreira RN [address] [place] [address] ALISON@[email or web address] Associate Infusion Nurse 10/02/24 documented as of this encounter Additional Source Comments The information contained in this document represents components of the legal health record. It is not the complete legal health record.[facility]
--- OUTSIDE RECORDS SUMMARY | 2024-11-15 07:32 | XMS_ITS | Encounter Summary ---
Author Organization [facility] Address [address] [place] [address] Phone Care Team Providers Care Sanitation Director Name Role Phone Indigo Du [facility] Unavailable [phone] Grecia Bonilla MD Primary Care Provider Hermelinda Barajas MD Unavailable [phone] Cindi Shell [facility] Unavailable Carlos Alberto King MD, [place] Unavailable [phone] Patria Luevano RN Unavailable TOBIAS [email or web address] Jennie Ferreira RN Unavailable ALISON@ [email or web address] Encounter Details Date Type Department Care Team (Late st Contact Info) Description 10/18/2024 Procedure Pass [facility] 70 [place] [address] Social History Tobacco Use Types Packs/Day Years [...] 10/18/2024 Procedure Pass [facility] 70 [place] [address] 10/23/2024 Procedure Pass [facility] EKG 70 [place] [address] 10/23/2024 Procedure Pass [facility] EKG 70 [place] [address] 11/13/2024 Procedure Pass [address] [address] 11/13/2024 Procedure Pass [address] [address] 11/16/2024 8:30 AM EDT Appointment [facility] MSK Diagnostic X-ray Imaging, [place] [address] Andrew Lima MD [address] [place] [address] Department [place] [address] [email or web address] 11/16/2024 9:00 AM EDT Office Visit [facility] Department of Orthopaedics 60 [place] [address] Andrew Lima MD 75 [facility] Department [place] [address] [email or web address] 11/22/2024 1:00 PM EDT Office Visit [facility] Endocrine, Diabetes, and Hypertension 221 [facility] 2nd [place] [address] Svetlana Lucero, PharmD 75 [place] [address] [email or web address] 11/26/2024 1:00 PM EDT Social Work Social Work Department, [employer] [facility] [address] [address] Hermelinda Barajas MD [address] [address] [email or web address]@[email or web address] Indigo Du, [facility] 300 [place] [address] [email or web address] 12/04/2024 7:30 AM EDT Blood Draw Laboratory Services, [address], 2nd [place] [address] Hermelinda Barajas MD [address] [address] Pedro@[facility] 12/04/2024 8:30 AM EDT Office Visit [facility] Center for Thoracic Oncology, [employer] 450 [facility], 9th [place] [address] Cindi Shell CNP 450 [place] [address] Benedict east@[facility] Hermelinda Barajas MD [address] [place] [address] 1240 [place] [address] Pedro@[facility] 12/04/2024 9:30 AM EDT Infusion Infusion Therapy Services [facility] 9, [address], 9th [place] [address] Cindi Shell CNP [address] [place] [address] Benedict east@[facility] Patria Luevano, BRIELLE [address] [place] [address] [email or web address]@[facility] 12/25/2024 6:30 AM EDT Blood Draw Laboratory Services, [address], 2nd [place] [address] Cindi Shell CNP [address] [place] [address] Benedict east@[facility] 12/25/2024 7:30 AM EDT Office Visit [facility] Center for Thoracic Oncology, [address], 9th [place] [address] Cindi Shell CNP [address] [place] [address] Benedict east@[facility] 12/25/2024 8:30 AM EDT Infusion Infusion Therapy Services [facility] 9, [employer] 450 [facility], 9th [place] [address] Cindi Shell CNP 450 [place] [address] Benedict east@[facility] 01/11/2025 11:45 AM EST Appointment [facility], [address] [address] Hermelinda Barajas MD [address] [place] [address] [place] [address] Pedro@[facility] 01/15/2025 7:10 AM EST Blood Draw Laboratory Services, [address], 2nd [place] [address] Cindi Shell [employer] 450 [place] [address] Benedict east@[facility] 01/15/2025 8:00 AM EST Office Visit [facility] Center for Thoracic Oncology, [address], 9th [place] [address] Hermelinda Barajas MD [address] [place] [address] 1240 [place] [address] Pedor@[facility] 01/15/2025 9:00 AM EST Infusion Infusion Therapy Services [facility] 9, [employer] 450 [facility], 9th [place] [address] Cindi Shell CNP 450 [place] [address] Benedict [email or web address] 01/18/2025 7:35 AM EST Hospital Encounter [facility] EKG 70 [place] [address] Guanakito Gallardo MD [address] [place] [address] [place] [address] [email or web address] Arrived 01/18/2025 8:30 AM EST Appointment [facility] 70 [place] [address] Odalis Jimenez PA-C 70 [facility] 5th [place] [address] [email or web address] 02/01/2025 8:40 AM EST Office Visit [facility] Otolaryngology 45 [facility]2-2 [place] [address] Demetrio Armstrong MD [address] [place] [phone] [email or web address] 02/25/2025 9:30 AM EST Telemedicine [facility] Cardiovascular Clinic 70 [place] [address] Guanakito Gallardo MD [address] [place] [address] 07/04/2025 10:00 AM EDT Telemedicine [facility] Cardiovascular Clinic 70 [place] [address] Thiago Bean MD [address] [place] [address] [email or web address] 10/18/2025 7:05 AM EDT Hospital Encounter [facility] EKG 70 [place] [address] Guanakito Gallardo MD [address] [place] [address] Card[place] [address] [email or web address] Arrived documented as of this encounter Visit Diagnoses Not on filedocumented in this encounter Care Teams Sanitation Director Relationship Specialty Start Date End Date Grecia Bonilla MD [address] [place] [address] [place] [address] PCP - General Internal Medicine 10/13/22 Indigo Du, [facility] 300 [place] [address] [email or web address] 07/27/22 Hermelinda Barajas MD [address] [place] [address] Pedro@[facility] Medical Oncology 11/29/22 Cindi Shell CNP [address] [place] [address] [place] [address] Fina@[email or web address] Gerontology 11/29/22 Carlos Alberto King MD, [place] [address] [place] [address] Department of Psychosocial Oncology and Palliative Care, [place] [phone] Jaelyn@[facility] Hospice and Palliative Care 04/05/24 Patria Luevano, BRIELLE [address] [place] [address] [email or web address]@[facility] Primary Infusion Nurse 05/15/24 Jennie Ferreira, RN [address] [place] [address] [email or web address] Associate Infusion Nurse 10/02/24 documented as of this encounter Additional Source Comments The information contained in this document represents components of the legal health record. It is not the complete legal health record.[facility]
--- OUTSIDE RECORDS SUMMARY | 2024-11-15 07:32 | XMS_ITS | Encounter Summary ---
Author Organization [facility] Address [address] [place] [address] Phone Care Team Providers Care Survey Compiler Name Role Phone Indigo DuSW Unavailable [phone] Grecia Bonilla MD Primary Care Provider Hermelinda Barajas MD Unavailable [phone] Cindi Shell WAREHOUSE MATERIAL HANDLER Unavailable Zuri Ha RN Unavailable Sandra Ruiz@[email or web address] Carlos Alberto King MD, [place] Unavailable [phone] Patria Luevano RN Unavailable TOBIAS HYATT@[email or web address] Jennie Ferreira RN Unavailable ALISON@ [facility] Encounter Details Date Type Department Care Team (Late st Contact Info) Description 10/22/2022 Procedure Pass [facility] Echocardiography [address] [place] [address] Social History Tobacco Use Types Packs/Day Years [...] st Contact Info) Description 10/18/2024 Procedure Pass [facility] Radiology [address] [place] [address] 10/23/2024 Procedure Pass [facility] EKG [address] [place] [address] 10/23/2024 Procedure Pass [facility] EKG [address] [place] [address] 11/13/2024 Procedure Pass [address] [address] 11/13/2024 Procedure Pass [address] [address] 11/16/2024 8:30 AM EDT Appointment [facility] MSK Diagnostic X-ray Imaging, [place] [address] [place] [address] Andrew Lima MD [address] [place] [address] Department [place] [address] [email or web address] 11/16/2024 9:00 AM EDT Office Visit [facility] Department of Orthopaedics [address] [place] [address] Andrew Lima MD [address] [place] [address] Department [place] [address] [email or web address] 11/22/2024 1:00 PM EDT Office Visit [facility] Endocrine, Diabetes, and Hypertension 221 [facility] 2nd [place] [address] Svetlana Lucero, PharmD [address] [place] [address] [email or web address] 11/26/2024 1:00 PM EDT Social Work Social Work Department, [facility] 300 [facility] 4th [place] [address] Hermelinda Barajas MD [address] [address] Pedro@[facility] 234 BEDS AT [facility] Indigo Du, [facility] 300 [place] [address] [email or web address] 12/04/2024 7:30 AM EDT Blood Draw Laboratory Services, [address], 2nd [place] [address] Hermelinda Barajas MD [address] [address] Pedro@[facility] 234 [facility]S AT [facility] 12/04/2024 8:30 AM EDT Office Visit [facility], [address], 9th [place] [address] Cindi Shell CNP 450 [place] [address] Benedict east@[facility] Hermelinda Barajas MD 450 [facility] [address] [place] [address] Pedro@[facility] 234 BEDS AT [facility] 12/04/2024 9:30 AM EDT Infusion Infusion Therapy Services [place] 9, [facility] 450 [facility], 9th [place] [address] Cindi Shell CNP [address] [place] [address] Benedict east@[facility] Patria Luevano, BRIELLE [address] [place] [address] STEFANO@[facility] 12/25/2024 6:30 AM EDT Blood Draw Laboratory Services, [address], 2nd [place] [address] Cindi Shell CNP [address] [place] [address] Benedict east@[facility] 12/25/2024 7:30 AM EDT Office Visit [facility], [address], 9th [place] [address] Cindi Shell CNP [address] [place] [address] Benedict east@[facility] 12/25/2024 8:30 AM EDT Infusion Infusion Therapy Services [place] 9, [address], 9th [place] [address] Cindi Shell CNP [address] [place] [address] Benedict east@[facility] 01/11/2025 11:45 AM EST Appointment [facility] 30 [place] [address] Hermelinda Barajas MD 450 [facility] 1240 [place] [address] Pedro@[facility] 234 [facility] AT [facility] 01/15/2025 7:10 AM EST Blood Draw Laboratory Services, [facility] 450 [facility], 2nd [place] [address] Cindi Shell WAREHOUSE MATERIAL HANDLER 450 [place] [address] Benedict east@[facility] 01/15/2025 8:00 AM EST Office Visit [facility], [facility] 450 [facility], 9th [place] [address] Hermelinda Barajas MD 450 [facility] 1240 [place] [address] Pedro@[facility] 234 [facility] AT [facility] 01/15/2025 9:00 AM EST Infusion Infusion Therapy Services [facility] [place], [facility] 450 [facility], 9th [place] [address] Cindi Shell WAREHOUSE MATERIAL HANDLER 450 [place] [address] Benedict east@[facility] 01/18/2025 7:35 AM EST Hospital Encounter [facility] EKG [address] [place] [address] Guanakito Gallardo MD [address] [place] [address] [place] [address] Arrived 01/18/2025 8:30 AM EST Appointment [facility] [address] [place] [address] Odalis Jimenez PA-C 70 [facility] 5th [place] [address] [email or web address] 02/01/2025 8:40 AM EST Office Visit [facility] Otolaryngology 45 [facility]2 [place] [address] Demetrio Armstrong MD 45 [place] [phone] [email or web address] 02/25/2025 9:30 AM EST Telemedicine [facility] 70 [place] [address] Guanakito Gallardo MD [address] [place] [address] [place] [address] [email or web address] 07/04/2025 10:00 AM EDT Telemedicine [facility] 70 [place] [address] Thiago Bean MD [address] [place] [address] [email or web address] 10/18/2025 7:05 AM EDT Hospital Encounter [facility] EKG [address] [place] [address] Guanakito Gallardo MD [address] [place] [address] [place] [address] [email or web address] Arrived documented as of this encounter Visit Diagnoses Not on filedocumented in this encounter Additional Health Concerns Infection Onset Date Last Indicated Resolved Time COVID-19 04/06/2023 04/06/2023 04/27/2023 1:21 AM EST CoV-Risk 07/17/2024 07/17/2024 07/28/2024 1:21 AM EDT documented as of this encounter Care Teams Survey Compiler Relationship Specialty Start Date End Date Grecia Bonilla MD [address] [place] [address] [place] [address] PCP - General Internal Medicine 10/13/22 Indigo Du, [facility] 300 [place] [address] [email or web address] [employer] D[employer] Cattle Farmer Oncology 07/27/22 Hermelinda Barajas MD [address] [place] [address] Pedro@[email or web address] Medical Oncology 11/29/22 Cindi Shell CNP [address] [place] [address] Fina@[email or web address] Gerontology 11/29/22 Zuri Ha, BRIELLE [address] [place] [address] Milton@[facility] 234 [facility] AT [facility] Primary Infusion Nurse 01/10/24 05/14/24 Carlos Alberto King MD, [place] [address] [place] [address] Department of Psychosocial Oncology and Palliative Care, [place] [phone] Jaelyn@[email or web address] Hospice and Palliative Care 04/05/24 Patria Luevano, RN [address] [place] [address] [email or web address]@[facility] 234 [facility] AT [facility] Primary Infusion Nurse 05/15/24 Jennie Ferreira, RN [address] [place] [address] ALISON@[email or web address] Associate Infusion Nurse 10/02/24 documented as of this encounter Additional Source Comments The information contained in this document represents components of the legal health record. It is not the complete legal health record.[facility]
[2024-11-15 07:56] VITALS: BP 147/85; PULSE 100; RESP 16; TEMP 36.4; O2SAT 96
== END 2024-11-15 07:56 | disposition home or self-care (01) ==
PROVIDERS: Emergency Provider Emergency Medicine; PCP Internal Medicine
DX: E09.65 Drug or chemical induced diabetes mellitus with hyperglycemia (principal); I10 Essential (primary) hypertension; K21.9 Gastro-esophageal reflux disease without esophagitis; Z79.4 Long term (current) use of insulin; Z99.81 Dependence on supplemental oxygen; C34.90 Malignant neoplasm of unspecified part of unspecified bronchus or lung
CPT/HCPCS: 99283; 99284

== ENCOUNTER 2024-11-20 09:56 | Outpatient (AMB) | payer MEDICARE, MEDICAID, SELFPAY ==
--- OUTSIDE RECORDS SUMMARY | 2024-11-16 08:14 | XMS_ITS | Encounter Summary ---
Author Organization [facility] Address [facility] [employer] [facility] [address] [place] [address] Phone Care Team Providers Care Ball Thread Machine Tender Name Role Phone Indigo DuSW Unavailable [phone] Grecia Bonilla MD Primary Care Provider Hermelinda Barajas MD Unavailable [phone] Cindi Shell [facility] Unavailable Carlos Alberto King MD, [place] Unavailable Patria Luevano RN Unavailable TOBIAS [email or web address] Jennie Ferreira RN Unavailable ALISON@ [email or web address] Encounter Details Date Type Department Care Team (Late st Contact Info) Description 11/16/2024 8:14 AM EDT - 11/16/2024 11:59 PM EDT Hospital Encounter [facility] MSK Diagnostic X-ray Imaging, [place] [address] [place] [address] Andrew Lima MD [address] [place] [address] Department [place] [address] [email or web address] Arrived Discharge Disposition: Home or Self Care Social [...] ecorded Are you denied basic needs s [facility] as food, clothing, or medical care? No [...] scaly skin on feet 198.4 g 11 documented as of this encounter Plan of Treatment Upcoming Encounters Date Type Department Care Team (Late st Contact Info) Description 10/18/2024 Procedure Pass [facility] 70 [place] [address] 10/23/2024 Procedure Pass [facility] EKG 70 [place] [address] 10/23/2024 Procedure Pass [facility] EKG 70 [place] [address] 11/13/2024 Procedure Pass [address] [address] 11/13/2024 Procedure Pass [address] [address] 11/22/2024 1:00 PM EDT Telemedicine [facility] Endocrine, Diabetes, and Hypertension [address] [address] Svetlana Lucero, PharmD 75 [place] [address] [email or web address] 11/26/2024 1:00 PM EDT Social Work Social Work Department, [facility] at [address] [address] Hermelinda Barajas MD [address] [place] [address] [email or web address]@[email or web address] Indigo Du, COLLAR STAY FUSER TENDER[address] [address] [email or web address] .[facility] 12/04/2024 7:30 AM EDT Blood Draw Laboratory Services, [address] [address] Hermelinda Barajas MD [address] [place] [address] Pedro@[facility] 12/04/2024 8:30 AM EDT Office Visit [facility], [address], 9th [place] [address] Cindi Shell CNP [address] [place] [address] Benedict east@[facility] Hermelinda Barajas MD [address] [place] [address] Pedro@[facility] 12/04/2024 9:30 AM EDT Infusion Infusion Therapy Services [place] 9, [address], 9th [place] [address] Cindi Shell CNP [address] [place] [address] Benedict east@[facility] Patria Luevano, BRIELLE [address] [place] [address] [email or web address]@[facility] 12/25/2024 6:30 AM EDT Blood Draw Laboratory Services, [address], 2nd [place] [address] Cindi Shell CNP [address] [place] [address] Benedict east@[facility] 12/25/2024 7:30 AM EDT Office Visit [facility], [facility] 450 [facility], 9th [place] [address] Cindi Shell CNP 450 [place] [address] Benedict east@[facility] 12/25/2024 8:30 AM EDT Infusion Infusion Therapy Services [place] 9, [facility] 450 [facility], 9th [place] [address] Cindi Shell CNP 450 [place] [address] Benedict east@[facility] 01/11/2025 11:45 AM EST Appointment [facility], [address] [address] Hermelinda Barajas MD [address] [place] [address] [place] [address] Pedro@[email or web address] 01/15/2025 7:10 AM EST Blood Draw Laboratory Services, [address], 2nd [place] [address] Cindi Shell CNP 450 [place] [address] Benedict east@[facility] 01/15/2025 8:00 AM EST Office Visit [facility] for [facility], [address], 9th [place] [address] Hermelinda Barajas MD 450 [facility] 1240 [place] [address] Pedro@[facility] 01/15/2025 9:00 AM EST Infusion Infusion Therapy Services [place] [address], [address], 9th [place] [address] Cindi Shell CNP 450 [place] [address] Benedict east@[facility] 01/18/2025 7:35 AM EST Hospital Encounter [facility] EKG 70 [place] [address] Guanakito Gallardo MD [address] [place] [address] [place] [address] [email or web address] Arrived 01/18/2025 8:30 AM EST Appointment [facility] 70 [place] [address] Odalis Jimenez PA-C 70 [facility] 5th [place] [address] [email or web address] 02/01/2025 8:40 AM EST Office Visit [facility] Otolaryngology 45 [facility] ASB2-2 [place] [address] Demetrio Armstrong MD 45 [place] [phone] [email or web address] 02/25/2025 9:30 AM EST Telemedicine [facility] Cardiovascular Clinic 70 [place] [address] Guanakito Gallardo MD [address] [place] [address] [place] [address] [email or web address] 07/04/2025 10:00 AM EDT Telemedicine [facility]ovascular Clinic 70 [place] [address] Thiago Bean MD [address] [place] [address] [email or web address] 10/18/2025 7:05 AM EDT Hospital Encounter [facility] EKG 70 [place] [address] Guanakito Gallardo MD [address] [place] [address] Card[place] [address] [email or web address] Arrived documented as of this encounter Procedures Procedure Name Priority Date/Time Associated Diagnosis Comments XR LUMBOSACRAL SPINE 2-3 VIEWS Routine 11/16/2024 8:22 AM EDT Pain documented in this encounter Results * XR LUMBOSACRAL SPINE 2-3 VIEWS (11/16/2024 8:22 AM EDT) Anatomical Region Laterality Modality L-spine Computed Radiogr aphy 11/16/2024 9:15 AM EDT Impressions 11/16/2024 9:17 AM EDT 5 nonrib-bearing lumbar-type vertebral bodies. No compression deformities. No abnormal jorge-retrolisthesis. Mild degenerative changes of the left hip with slight superolateral joint space narrowing and acetabular spurring. There are vascular calcifications. Narrative 11/16/2024 9:17 AM EDT XR LUMBOSACRAL SPINE 2-3 VIEWS Referring clinician's provided indication for this examination in Epic: Pain COMPARISON: CT ABDOMEN/PELVIS WITH CONTRAST Procedure Note Mele Talamantes MD - 11/16/2024 XR LUMBOSACRAL SPINE 2-3 VIEWS Referring clinician's provided indication for this examination in Epic:Pain COMPARISON: CT ABDOMEN/PELVIS WITH CONTRAST IMPRESSION: 5 nonrib-bearing lumbar-type vertebral bodies. No compression deformities.No abnormal jorge-retrolisthesis. Mild degenerative changes of the lefthip with slight superolateral joint space narrowing and acetabularspurring. There are vascular calcifications. us Andrew Lima MD IMG XR SPINE Final Result documented in this encounter Visit Diagnoses Diagnosis Pain Generalized pain Paroxysmal atrial fibrillation Atrial fibrillation Paroxysmal atrial fibrillation Atrial fibrillation documented in this encounter Care Teams Ball Thread Machine Tender Relationship Specialty Start Date End Date Grecia Bonilla MD [address] [place] [address] [place] [address] PCP - General Internal Medicine 10/13/22 Indigo Du, [facility] 300 [place] [address] [email or web address] Manager Oncology 07/27/22 Hermelinda Barajas MD [address] [place] [address] [place] [address] Pedro@[email or web address] Medical Oncology 11/29/22 Cindi Shell CNP [address] [place] [address] [email or web address] [facility] Gerontology 11/29/22 Carlos Alberto King MD, [place] [address] [place] [address] Department of Psychosocial Oncology and Palliative Care, [place] [phone] Jaelyn@[facility] Hospice and Palliative Care 04/05/24 Patria Luevano, BRIELLE [address] [place] [address] STEFANO@[facility] Primary Infusion Nurse 05/15/24 Jennie Ferreira, BRIELLE [address] [place] [address] [email or web address] Associate Infusion Nurse 10/02/24 documented as of this encounter Additional Source Comments The information contained in this document represents components of the legal health record. It is not the complete legal health record.[facility]
--- OUTSIDE RECORDS SUMMARY | 2024-11-16 09:00 | XMS_ITS | Encounter Summary ---
Author Organization [facility] Address [address] [place] [address] [place] [address] Phone Care Team Providers Care Crane Man Name Role Phone Indigo Du [facility] Unavailable [phone] Grecia Bonilla MD Primary Care Provider Hermelinda Barajas MD Unavailable [phone] Cindi Shell [facility] Unavailable Carlos Alberto King MD, MD Unavailable [phone] Patria Luevano RN Unavailable [email or web address] Jennie Ferreira RN Unavailable [email or web address] Reason for Referral * Physical Therapy (Elective) - New Request Specialty Diagnoses / Procedures Referred By Sarah moser Referred To Contact Diagnoses Chronic midline low back pain without sciatica Andrew Lima MD [address] [place] [address] Department [place] [address] Phone: tel: fax: mailto:[email or web address] Referral ID Status Reason Start Date Expiration Date V isits Requested Visits Authorized [id number] New Request 11/16/2024 11/16/2025 1 1 Reason for Visit * Reason Comments New Patient LBP, nerve sheath tu mor, metastatic lung cancer * Consultation (Routine) - New Request Specialty Diagnoses / Procedures Referred By Sarah moser Referred To Contact Cindi Shell CNP [address] [facility] [place] [address] Phone: tel: fax: mailto:[email or web address] Referral ID Status Reason Start Date Expiration Date V isits Requested Visits Authorized [id number] New Request 10/23/2024 10/23/2025 1 1 Encounter Details Date Type Department Care Team (Late st Contact Info) Description 11/16/2024 9:00 AM EDT Office Visit [facility] Department of Orthopaedics [address] [place] [address] Andrew Lima MD [address] [place] [address] Department [place] [address] [email or web address] Chronic midline low back pain without sciatica (Primary Dx); Class 1 obesity due to excess calories with serious comorbidity and body mass index (BMI) of 34.0 to 34.9 in adult Social History Tobacco Use Types Packs/Day Years [...] - Inhaled Oxygen Concentration - - Weight 127.9 kg (282 lb) 11/16/2024 8:55 AM EDT Height 193 cm (6' 4 ) 11/16/2024 8:55 AM EDT Body Mass Index 34.33 11/16/2024 8:55 AM EDT documented in this encounter Progress Notes * Andrew Lima MD - 11/16/2024 9:00 AM EDT 59yoM with a diagnosis of metastatic NSCLC found in Sep 2021, metastatic at the time. Has done wellwith systemic therapy. He has had back pain intermittently. Currently he does not have any pain. His last episode was over a month ago. It typically lasts a day or 2. The patient has not had any fevers, chills, or night sweats. No chest pain. He has shortness of breath with activity. No numbness, ti ngling, or weakness. No weight loss or change in appetite. No nausea, vomiting, diarrhea, or constipation. No hematuria, hemoptysis, melena, or epistaxis. No problems with balance or gait disturbance. No bowel or bladder dysfunction. No problems with vision. No issues with fine motor skills. Past Medical History: Diagnosis Date Cancer lung Cluster headaches Diabetes Essential (primary) hypertension GERD (gastroesophageal reflux disease) Mixed hyperlipidemia Past Surgical History: Procedure Laterality Date Ablation, Atrial Fibrillation Paroxysmal N/A 10/18/2024 Performed by Guanakito Gallardo MD at [facility] ELECTROPHYSIOLOGY LAB COLONOSCOPY _ Biopsy colon and TI N/A 09/24/2024 Performed by Maude Vides MD, MPH at [facility] GI ESOPHAGOGASTRODUODENOSCOPY + biopsies stomach and duodenum N/A 09/24/2024 Performed by Maude Vides MD, MPH at [facility] GI Left Atrial Appendage Closure (Transvenous) N/A 10/18/2024 Performed by Guanakito Gallardo MD at [facility] ELECTROPHYSIOLOGY LAB Scheduled Meds: Continuous Infusions: PRN Meds: Current Meds: Current Outpatient Medications: acetaminophen (TYLENOL) 500 MG tablet, TAKE 1 TABLET BY MOUTH TWICE A DAY, Disp: 60 tablet, Rfl: 3,Last Dispense: Unknown (outside pharmacy) atorvastatin (LIPITOR) 20 MG tablet, Take 20 mg by mouth daily., Disp: , Rfl: , Last Dispense: Unknown (patient-reported) blood pressure test kit-large Kit, pls take BP daily and discuss with PCP, Disp: 1 kit, Rfl: 0, Last Dispense: Unknown (outside pharmacy) dexAMETHasone (DECADRON) 4 MG tablet, Take 1 tablet (4 mg) twice daily the day before, day of and day after chemotherapy only., Disp: 30 tablet, Rfl: 1, Last Dispense: Unknown (outside pharmacy) dilTIAZem (CARDIZEM CD) 180 MG 24 hr capsule, Take 180 mg by mouth daily., Disp: , Rfl: , Last Dispense: Unknown (patient-reported) famotidine (PEPCID) 20 MG tablet, TAKE 2 TABLETS BY MOUTH TWICE A DAY STOP OMEPRAZOLE, Disp: 360 tablet, Rfl: 0, Last Dispense: Unknown (outside pharmacy) folic acid (FOLVITE) 1 MG tablet, Take 1 tablet (1,000 mcg total) by mouth daily., Disp: 90 tablet,Rfl: 1, Last Dispense: Unknown (outside pharmacy) GAS RELIEF, SIMETHICONE, 80 mg chewable tablet, CHEW 1 TABLET BY MOUTH EVERY 6 HOURS NEEDED., Disp: 60 tablet, Rfl: 2, Last Dispense: Unknown (outside pharmacy) hydrocortisone 2.5 % cream, Apply topically 2 (two) times a day., Disp: 20 g, Rfl: 3, Last Dispense: Unknown (outside pharmacy) insulin aspart U-100 (NOVOLOG) 100 unit/mL (3 mL) injection pen, INJECT 4 TO 12 UNITS SUBCUTANEOUSLY 3 TIMES A DAY BEFORE MEALS PER SLIDING SCALE, Disp: , Rfl: , Last Dispense: Unknown (patient-reported) insulin pen needles, disposable, 32 gauge x 5/32 Ndle, 1 each by Miscellaneous route 4 (four) times a day before meals and nightly., Disp: 100 each, Rfl: 5, Last Dispense: Unknown (outside pharmacy) ketoconazole 2 % cream, APPLY TOPICALLY DAILY. TO SOLES OF FEET AND IN BETWEEN TOES, APPLY THIS BEFORE ANY MOISTURIZING CREAMS, Disp: 60 g, Rfl: 11, Last Dispense: Unknown (outside pharmacy) losartan (COZAAR) 50 MG tablet, Take 100 mg by mouth daily., Disp: , Rfl: , Last Dispense: Unknown (patient-reported) magnesium oxide (MAG-OX) 400 mg (241.3 mg elemental) tablet, Take 1 tablet (400 mg total) by mouth daily., Disp: 90 tablet, Rfl: 1, Last Dispense: Unknown (outside pharmacy) metFORMIN (GLUCOPHAGE) 1000 MG tablet, Take 1,000 mg by mouth 2 (two) times a day with meals., Disp: , Rfl: , Last Dispense: Unknown (patient-reported) ondansetron (ZOFRAN) 8 MG tablet, Take 1 tablet (8 mg total) by mouth every 8 (eight) hours as needed for nausea., Disp: 30 tablet, Rfl: 3, Last Dispense: Unknown (outside pharmacy) prochlorperazine (COMPAZINE) 10 MG tablet, TAKE 1 TABLET BY MOUTH EVERY 6 HOURS NEEDED *SEDATING, DO NOT DRIVE*, Disp: 30 tablet, Rfl: 0, Last Dispense: Unknown (outside pharmacy) rivaroxaban (XARELTO) 20 mg Tab, Take 1 tablet (20 mg total) by mouth daily., Disp: 90 tablet, Rfl:1, Last Dispense: Unknown (outside pharmacy) urea 40 % Crea, Apply 1 Application topically daily. To scaly skin on feet, Disp: 198.4 g, Rfl: 11,Last Dispense: Unknown (outside pharmacy) insulin glargine 100 unit/mL (3 mL) InPn injection pen, Inject 10 Units under the skin daily. (Patient not taking: Reported on 11/16/2024), Disp: 15 mL, Rfl: 3, Last Dispense: Unknown (outside pharmacy) Allergies Allergen Reactions Lisinopril Nausea Only Family History Problem Relation Age of Onset Cancer Neg Hx Social History Tobacco Use Smoking status: Former Current packs/day: 0.00 Average packs/day: 1 pack/day for 20.0 years (20.0 total pack years) Types: Cigarettes Start date: 2001 Quit date: 2021 Years since quittin.7 Smokeless tobacco: Never Substance Use Topics Alcohol use: Not Currently ROS: Performed and unless previously stated is otherwise negative. PE: A&O X 3 Presents with his partner Ambulates well HF Quad TA EHL GS Left 5 5 5 5 5 Right 5 5 5 5 5 Sensation intact Reflexes at knees and ankles 1+ and symmetric - SLR and seated SLR No clonus No TTP over spine IMAGING: I have reviewed and interpreted the patients imaging and discussed the findings with them. 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 We discussed that given his findings and absence of pain currently, its unclear what his pain generator is/was. We discussed his weight. We discussed PT. Script issued. Spinal cord compressionand cauda equina was discussed and signs and symptoms were reviewed with the patient. They understand to present immediately if any should arise. The patient knows to follow up sooner if issues arise. documented in this encounter Plan of Treatment Upcoming Encounters Date Type Department Care Team (Late st Contact Info) Description 10/18/2024 Procedure Pass [facility] [address] [place] [address] 10/23/2024 Procedure Pass [facility] EKG [address] [place] [address] 10/23/2024 Procedure Pass [facility] EKG [address] [place] [address] 11/13/2024 Procedure Pass [address] [address] 11/13/2024 Procedure Pass [address] [place] [address] 11/22/2024 1:00 PM EDT Telemedicine [facility] Endocrine, Diabetes, and Hypertension [address] [facility] 2nd [place] [address] Svetlana Lucero, PharmD [address] [place] [address] [email or web address] 11/26/2024 1:00 PM EDT Social Work Social Work Department, [facility] [address] [facility] [address]th [place] [address] Hermelinda Barajas MD [address] [place] [phone] [email or web address] Indigo Du [address] [address] [email or web address] 12/04/2024 7:30 AM EDT Blood Draw Laboratory Services, [address], [address] [place], [place] Hermelinda Barajas MD [address] [place] [address] [email or web address] 12/04/2024 8:30 AM EDT Office Visit [facility] Center for Thoracic Oncology, [facility] [address] [facility], 9th [place] [address] Cindi Shell CNP [address] [place] [address] [email or web address] Hermelinda Barajas MD [address] [address] [email or web address] 12/04/2024 9:30 AM EDT Infusion Infusion Therapy Services Yawmelissa , [address], [address] [place] [address] Cindi Shell CNP [address] [place] [phone] [email or web address] Patria Luevano, BRIELLE [address] [place] [address] [email or web address] 12/25/2024 6:30 AM EDT Blood Draw Laboratory Services, [address], 2nd [place] [address] Cindi Shell UNIVERSITY COUNSELOR [address] [place] [phone] [email or web address] 12/25/2024 7:30 AM EDT Office Visit [facility] for Thoracic Oncology, [address], 9[address] [place] [address] Cindi Shell CNP [address] [place] [address] [email or web address] 12/25/2024 8:30 AM EDT [facility]fusion [facility], [address], 9th [place] [address] Cindi Shell CNP [address] [place] [address] [place] [address] Benedict [email or web address] 01/11/2025 11:45 AM EST Appointment [facility], Ct Scan [address] [address] Hermelinda Barajas MD [address] [address] [email or web address] 01/15/2025 7:10 AM EST Blood Draw Laboratory Services, [address], 2nd [place] [address] Cindi Shell CNP [address] [place] [address] Benedict [email or web address] 01/15/2025 8:00 AM EST Office Visit [facility] Thoracic Oncology, [address], [address] [place] [address] Hermelinda Barajas MD [address] [place] [address] [email or web address] 01/15/2025 9:00 AM EST Infusion Infusion Therapy Services [facility] [address], [address], [address]th [place] [address] Cindi Shell CNP [address] [place] [phone] Benedict [email or web address] 01/18/2025 7:35 AM EST Hospital Encounter [facility] EKG [address] [place] [address] Guanakito Gallardo MD [address] [place] [address] Arrived 01/18/2025 8:30 AM EST Appointment [facility] [address] [place] [address] Odalis Jimenez PA-C [address] [facility] 5th [place] [address] [email or web address] 02/01/2025 8:40 AM EST Office Visit [facility] Otolaryngology [address] [facility] [place] [address] Demetrio Armstrong MD [address] [place] [phone] [email or web address] 02/25/2025 9:30 AM EST Telemedicine [facility] [address] [place] [address] Guanakito Gallardo MD [address] [place] [address] 07/04/2025 10:00 AM EDT Telemedicine [facility] [address] [place] [address] Thiago Bean MD [address] [place] [phone] [email or web address] 10/18/2025 7:05 AM EDT Hospital Encounter [facility] EKG [address] [place] [address] Guanakito Gallardo MD [address] [place] [address] Arrived Scheduled Referrals Name Type Priority Associated Diagnoses Order Schedule Ambulatory referral to External Physical Therapy Outpatient Referral Routine Chronic midline low back pain without sciatica Ordered: 11/16/2024 documented as of this encounter Visit Diagnoses Diagnosis Chronic midline low back pain without sciatica- Primary Class 1 obesity due to excess calories with serious comorbidity and body mass index (BMI) of 34.0 to 34.9 in adult Paroxysmal atrial fibrillation Atrial fibrillation Paroxysmal atrial fibrillation Atrial fibrillation documented in this encounter Care Teams Crane Man Relationship Specialty Start Date End Date Grecia Bonilla MD [address] [place] [address] [place] [phone] PCP - General Internal Medicine 10/13/22 Indigo Du, [facility] [address] [place] [address] [email or web address] Fraud Manager Oncology 07/27/22 Hermelinda Barajas MD [address] [place] [phone] [email or web address] Medical Oncology 11/29/22 Cindi Shell CNP [address] [place] [address] [email or web address] Gerontology 11/29/22 Carlos Alberto King MD, [place] [address] [place] [address] Department of Psychosocial Oncology and Palliative Care, [place] [phone] [email or web address]@[email or web address] Hospice and Palliative Care 04/05/24 Patria Luevano, BRIELLE [address] [place] [phone] [email or web address] Primary Infusion Nurse 05/15/24 Jennie Ferreira, RN [address] [place] [phone] [email or web address] Associate Infusion Nurse 10/02/24 documented as of this encounter Additional Source Comments The information contained in this document represents components of the legal health record. It is not the complete legal health record.[facility]
--- NOTE | 2024-11-20 09:56 | MHC.OFFWIV ---
Intake Vital Signs 11/20/24 09:59 Height 6 ft 4 in Weight 288 lb 0.8 oz BMI 35.1 BP 112/70 Blood Pressure Location Rt brachial Position Sitting Pulse 98 Pulse Source Pulse Oximeter Temp 98.2 F Temp Source Oral Pulse Oximetry (%) 94 Oxygen Delivery Method Room Air Intake Visit Reasons: EP-lt eye sensitive to light, redness, watery Intake Note: pt presents with bilateral eyes watering with LT eye being sensitive to light, red and painful- s/sx 1 day Patient Tobacco Use Status: Never used Tobacco Allergies No Known Allergies Allergy (Verified 11/20/24 10:03) Do you need a note to return to daycare/school/sports/work: No HPI HPI Comments History of Present Illness Details History of Present Illness - The patient is a 59-year-old male presenting with eye irritation and sensitivity to light. - Reports bilateral eye irritation and excessive tearing for approximately two weeks, with clear fluid discharge. - The left eye is particularly affected, with a sensation of a foreign body present after rubbing the eye yesterday. - Experiences photophobia, even with eyes closed, but denies any pain or changes in vision. - No purulent discharge, and irritation subsides temporarily after washing the face. - Wears glasses but does not wear contacts - Sees [facility] Physical Exam General: Cooperative, healthy appearing, comfortable, no acute distress and well developed Orientation: Patient oriented x3 Limitations: No limitations Head: Normal to inspection Ears: Hearing grossly normal bilaterally Nose: Normal External nose present Face and sinus: Normal facial exam Eyes: Three corneal abrasions in the left eye Neck: Normal visual inspection and Yes full ROM Respiratory: Normal respiratory effort and able to speak in complete sentences. Skin: No rashes or lesions noted Neuro: Patient oriented x3 Extremities: Normal to inspection Review of Systems - Eyes: Reports bilateral eye irritation and photophobia. Denies pain or changes in vision. All systems reviewed and are unremarkable except as noted in HPI [facility] Medical History Allergic rhinitis Acute respiratory disease GERD (gastroesophageal reflux disease) Cluster headaches Type 2 diabetes mellitus Hypercholesterolemia Hypertension Palpitations Stage 4 lung cancer Social History Patient Tobacco Use Status: Never used Tobacco Physical Exam Vital Signs: Last Vital Signs Temp 98.2 F 11/20/24 09:59 Pulse 98 11/20/24 09:59 BP 112/70 11/20/24 09:59 Pulse Ox 94 11/20/24 09:59 Oxygen Delivery Method Room Air 11/20/24 09:59 BMI result Body Mass Index 35.1 Office Procedures Fluorescein eye exam Details: Applied 2 gtts of tetracaine, applied dye and observed 3 corneal abrasions, 1cm oval superior to iris, 0.5cm circular inferior to iris and 0.5cm round medial to iris. Assessment & Plan Assessment & Plan (1) Corneal abrasion, left: Code(s): S05.02XA - Injury of conjunctiva and corneal abrasion without foreign body, left eye, initial encounter Qualifiers: Encounter type: initial encounter Qualified Code(s): S05.02XA - Injury of conjunctiva and corneal abrasion without foreign body, left eye, initial encounter Plan: Patient was informed and verbally consented to the use of an ambient scribe for clinic note documentation during this visit. Corneal Abrasions - Erythromycin ointment to be applied four times daily for seven days. - Monitor for pain or vision changes; contact database programmer analyst if symptoms worsen. (2) Allergic conjunctivitis: Code(s): H10.10 - Acute atopic conjunctivitis, unspecified eye Qualifiers: Laterality: bilateral Qualified Code(s): H10.13 - Acute atopic conjunctivitis, bilateral Plan: Allergic Conjunctivitis - Use Pataday eye drops for allergy relief after finished with erythromycin ointment. - Take an oral allergy medication daily. Orders: Orders AMB Fluorescein eye exam Today S05.02XA - Injury of conjunctiva and corneal abrasion without foreign body, left eye, initial encounter Medications: New erythromycin Apply to left eye 4 times a day while awake 0.5 inches ophthalmic (eye) QID 3.5 grams 0RF Coding Level of Care Code New Pt Level 4 (30807) Diagnoses Abrasion of left cornea, initial encounter S05.02XA Encounter type: initial encounter Allergic conjunctivitis of both eyes H10.13 Laterality: bilateral
[2024-11-20 09:59] VITALS: BP 112/70; PULSE 98; TEMP 36.8; O2SAT 94; BMI 35.1
--- OUTSIDE RECORDS SUMMARY | 2024-11-20 11:55 | XMS_ITS | Encounter Summary ---
Author Organization [facility] Address [address] [place] [address] Phone Care Team Providers Care Cms Expert Name Role Phone Indigo Du HAND POTTER Unavailable [phone] Grecia Bonilla MD Primary Care Provider Hermelinda Barajas MD Unavailable [phone] Cindi Shell [facility] Unavailable Carlos Alberto King MD, [place] Unavailable Patria Luevano RN Unavailable TOBIAS [email or web address] Jennie Ferreira RN Unavailable ALISON@ [facility].[place] Encounter Details Date Type Department Care Team (Late st Contact Info) Description 09/10/2024 Procedure Pass [facility], Ct Scan - [address] [address] Social History Tobacco Use Types Packs/Day Years [...] st Contact Info) Description 10/18/2024 Procedure Pass [facility] and Women's Radiology 70 [place] [address] 10/23/[address] [facility] EKG 70 [place] [address] 10/23/[address] [facility] EKG 70 [place] [address] 11/13/2024 Procedure Pass [address] [address] 11/13/2024 Procedure Pass [address] [address] 11/22/2024 1:[address] [facility] Endocrine, Diabetes, and Hypertension 221 [facility] 2nd [place] [address] Svetlana Lucero, PharmD 75 [place] [address] nilam@[facility] 11/26/2024 1:00 PM EDT Social Work Social Work Department, [facility] 300 [facility] 4th [place] [address] Hermelinda Barajas MD 450 [facility] 1240 [place] [address] Pedro@[facility] Indigo Du, [facility] 300 [place] [address] [email or web address] 12/04/2024 7:30 AM EDT Blood Draw Laboratory Services, [address], 2nd [place] [address] Hermelinda Barajas MD 450 [facility] 1240 [place] [address] Pedro@[facility] 12/04/2024 8:30 AM EDT Office Visit [facility] for Thoracic Oncology, [address], 9th [place] [address] Cindi Shell MAGNETIC TESTING TECHNICIAN [address] [place] [address] Benedict east@[facility] Hermelinda Barajas MD 450 [facility] 1240 [place] [address] Pedro@[facility] 12/04/2024 9:30 AM EDT Infusion Infusion Therapy Services Yawkey 9, [facility] 450 [facility], 9th [place] [address] Cindi Shell MAGNETIC TESTING TECHNICIAN [address] [place] [address] Benedict east@[facility] Patria Luevano, BRIELLE [address] [place] [address] STEFANO@[facility] 12/25/2024 6:30 AM EDT Blood Draw Laboratory Services, [address], 2nd [place] [address] Cindi Shell CNP [address] [place] [address] Benedict east@[facility] 12/25/2024 7:30 AM EDT Office Visit [facility] Thoracic Oncology, [address], 9th [place] [address] Cindi Shell MAGNETIC TESTING TECHNICIAN [address] [place] [address] Benedict east@[facility] 12/25/2024 8:30 AM EDT Infusion Infusion Therapy Services Sowmya 9, [address], 9th [place] [address] Cindi Shell MAGNETIC TESTING TECHNICIAN [address] [place] [address] Benedict east@[facility] 01/11/2025 11:45 AM EST Appointment [facility], [address] [address] Hermelinda Barajas MD [address] [place] [address] 1240 [place] [address] Pedro@[facility] 01/15/2025 7:10 AM EST Blood Draw Laboratory Services, [facility] 450 [facility], 2nd [place] [address] Cindi Shell CNP 450 [place] [address] Benedict east@[facility] 01/15/2025 8:00 AM EST Office Visit [facility] Thoracic Oncology, [address], 9th [place] [address] Hermelinda Barajas MD [address] [place] [address] 1240 [place] [address] Pedro@[facility] 01/15/2025 9:00 AM EST Infusion Infusion Therapy Services Yawkey 9, [address], 9th [place] [address] Cindi Shell CNP 450 [place] [address] Bendeict east@[facility] 01/18/2025 7:35 AM EST Hospital Encounter [facility] EKG 70 [place] [address] Guanakito Gallardo MD [address] [place] [address] Card[place] [address] Arrived 01/18/2025 8:30 AM EST Appointment [facility] and Women's Radiology 70 [place] [address] Odalis Jimenez PA-C 70 [facility] 5th [place] [address] [email or web address] 02/01/2025 8:40 AM EST Office Visit [facility] Otolaryngology 45 [facility] ASB2-2 [place] [address] Demetrio Armstrong MD 45 [place] [phone] [email or web address]@[facility] 02/25/2025 9:30 AM EST Telemedicine [facility] 70 [place] [address] Guanakito Gallardo MD [address] [place] [address] 07/04/2025 10:00 AM EDT Telemedicine [facility] [address] [place] [address] Thiago Bean MD [address] [place] [address] laurita@[facility] 10/18/2025 7:05 AM EDT Hospital Encounter [facility] EKG 70 [place] [address] Guanakito Gallardo MD [address] [place] [address] [place] [address] Arrived documented as of this encounter Visit Diagnoses Not on filedocumented in this encounter Care Teams Cms Expert Relationship Specialty Start Date End Date Grecia Bonilla MD [address] [place] [address] [place] [address] PCP - General Internal Medicine 10/13/22 Indigo Du, [facility] 300 [place] [address] christina@[email or web address] Elementary Substitute Teacher Oncology 07/27/22 Hermelinda Barajas MD [address] [place] [address] 1240 [place] [address] Pedro@[facility] Medical Oncology 11/29/22 Cindi Shell CNP [address] [place] [address] Fina@[facility] Gerontology 11/29/22 Carlos Alberto King MD, [place] [address] [place] [address] Department of Psychosocial Oncology and Palliative Care, [place] [address] Jaelyn@[facility] Hospice and Palliative Care 04/05/24 Patria Luevano RN [address] [place] [address] STEFANO@[facility] Primary Infusion Nurse 05/15/24 Jennie Ferreira RN [address] [place] [address] ALISON@[email or web address] Associate Infusion Nurse 10/02/24 documented as of this encounter Additional Source Comments The information contained in this document represents components of the legal health record. It is not the complete legal health record.[facility]
--- OUTSIDE RECORDS SUMMARY | 2024-11-20 11:55 | XMS_ITS | Encounter Summary ---
Author Organization [facility] Address [address] [place] [address] Phone Care Team Providers Care Post Doc Fellowship Name Role Phone Indigo Du TOWEL SORTER Unavailable Grecia Bonilla MD Primary Care Provider Hermelinda Barajas MD Unavailable [phone] Cindi Shell [facility] Unavailable Carlos Alberto King [place], [place] Unavailable [phone] Patria Luevano RN Unavailable TOBIAS HYATT@[email or web address].[place] Jennie Ferreira RN Unavailable ALISON@ [facility] Encounter Details Date Type Department Care Team (Late st Contact Info) Description 09/10/2024 Procedure Pass [facility], Ct Scan - [address] [address] Social History Tobacco Use Types Packs/Day Years [...] st Contact Info) Description 10/18/2024 Procedure Pass [facility] and Women's Radiology 70 [place] [address] 10/23/2024 Procedure Pass [facility] EKG 70 [place] [address] 10/23/2024 Procedure Pass [facility] EKG 70 [place] [address] 11/13/2024 Procedure Pass [address] [address] 11/13/2024 Procedure Pass [address] [address] 11/22/2024 1:00 PM EDT Telemedicine [facility] Endocrine, Diabetes, and Hypertension 221 [facility] 2nd [place] [address] Svetlana Lucero, PharmD 75 [place] [address] nilam@[email or web address] 11/26/2024 1:00 PM EDT Social Work Social Work Department, [facility] 300 [facility] 4th [place] [address] Hermelinda Barajas MD 450 [facility] 1240 [place] [address] Pedro@[facility] Indigo Du, [facility] 300 [place] [address] christina@[facility] 12/04/2024 7:30 AM EDT Blood Draw Laboratory Services, [address], 2nd [place] [address] Hermelinda Barajas MD 450 [facility] 1240 [place] [address] Pedro@[facility] 12/04/2024 8:30 AM EDT Office Visit [facility] Center for Thoracic Oncology, [address], 9th [place] [address] Cindi Shell CAPITAL MARKETS SPECIALIST [address] [place] [address] Benedict east@[facility] Hermelinda Barajas MD 450 [facility] 1240 [place] [address] Pedro@[facility] 12/04/2024 9:30 AM EDT Infusion Infusion Therapy Services Yawkey 9, [facility] [address] [facility], 9th [place] [address] Cindi Shell CAPITAL MARKETS SPECIALIST [address] [place] [address] Benedict east@[facility] Patria Luevano, BRIELLE [address] [place] [address] STEFANO@[facility] 12/25/2024 6:30 AM EDT Blood Draw Laboratory Services, [address], 2nd [place] [address] Cindi Shell CNP [address] [place] [address] Benedict east@[facility] 12/25/2024 7:30 AM EDT Office Visit [facility] for Thoracic Oncology, [address], 9th [place] [address] Cindi Shell CAPITAL MARKETS SPECIALIST [address] [place] [address] Benedict east@[facility] 12/25/2024 8:30 AM EDT Infusion Infusion Therapy Services Sowmya 9, [address], 9th [place] [address] Cindi Shell CAPITAL MARKETS SPECIALIST [address] [place] [address] Benedict east@[facility] 01/11/2025 11:45 AM EST Appointment [facility], [address] [address] Hermelinda Barajas MD [address] [place] [address] 1240 [place] [address] Pedro@[facility] 01/15/2025 7:10 AM EST Blood Draw Laboratory Services, [facility] [address] [facility], 2nd [place] [address] Cindi Shell CNP 450 [place] [address] Benedict east@[facility] 01/15/2025 8:00 AM EST Office Visit [facility] Center for Thoracic Oncology, [address], 9th [place] [address] Hermelinda Barajas MD [address] [place] [address] 1240 [place] [address] Pedro@[facility] 01/15/2025 9:00 AM EST Infusion Infusion Therapy Services Yawkey 9, [address], 9th [place] [address] Cindi Shell CNP 450 [place] [address] Benedict east@[facility] 01/18/2025 7:35 AM EST Hospital Encounter [facility] EKG 70 [place] [address] Guanakito Gallardo MD [address] [place] [address] Card[place] [address] Arrived 01/18/2025 8:30 AM EST Appointment [facility] 70 [place] [address] Odalis Jimenez PA-C 70 [facility] 5th [place] [address] [email or web address] 02/01/2025 8:40 AM EST Office Visit [facility] Otolaryngology 45 [facility] ASB2-2 [place] [address] Demetrio Armstrong MD 45 [place] [phone] [email or web address]@[facility] 02/25/2025 9:30 AM EST Telemedicine [facility] Cardiovascular Clinic 70 [place] [address] Guanakito Gallardo MD [address] [place] [address] 07/04/2025 10:00 AM EDT Telemedicine [facility] Cardi[facility] Clinic [address] [place] [address] Thiago Bean MD [address] [place] [address] [email or web address]@[facility] 10/18/2025 7:05 AM EDT Hospital Encounter [facility] EKG 70 [place] [address] Guanakito Gallardo MD [address] [place] [address] [place] [address] Arrived documented as of this encounter Visit Diagnoses Not on filedocumented in this encounter Care Teams Post Doc Fellowship Relationship Specialty Start Date End Date Grecia Bonilla MD [address] [place] [address] [place] [address] PCP - General Internal Medicine 10/13/22 Indigo Du, [facility] 300 [place] [address] [email or web address] Vice President Quality Improvement Oncology 07/27/22 Hermelinda Barajas MD [address] [place] [address] 1240 [place] [address] Pedro@[facility] Medical Oncology 11/29/22 Cindi Shell CNP [address] [place] [address] Fina@[facility] Gerontology 11/29/22 Carlos Alberto King MD, [place] [address] [place] [address] Department of Psychosocial Oncology and Palliative Care, [place] [address] Jaelyn@[facility] Hospice and Palliative Care 04/05/24 Patria Luevano RN [address] [place] [address] STEFANO@[facility] Primary Infusion Nurse 05/15/24 Jennie Ferreira RN [address] [place] [address] ALISON@[email or web address] Associate Infusion Nurse 10/02/24 documented as of this encounter Additional Source Comments The information contained in this document represents components of the legal health record. It is not the complete legal health record.[facility]
--- OUTSIDE RECORDS SUMMARY | 2024-11-20 11:55 | XMS_ITS | Encounter Summary ---
Author Organization [facility] Address [address] [place] [address] [place] [address] Phone Care Team Providers Care Movie Shot Camera Operator Name Role Phone Aubrey Taylor MD Primary Care Provider [phone] Indigo Du [facility] Unavailable Jn Cline DO Primary Care Provider Aubrey Taylor MD Primary Care Provider [phone] Marilynn Daly NP Primary Care Provider Unavailab Grecia Rosado MD Primary Care Provider Hermelinda Barajas MD Unavailable [phone] Cindi Shell [employer] Unavailable Zuri Ha RN Unavailable Sandra Ruiz@[facility].[place] Carlos Alberto King MD, [place] Unavailable [phone] Patria Luevano RN Unavailable TOBIAS HYATT@[facility].[place] Jennie Ferreira RN Unavailable ALISON@ [facility].[place] Encounter Details Date Type Department Care Team (Late st Contact Info) Description 06/15/2022 Procedure Pass [facility] Echocardiography 70 [place] [address] Social History Tobacco Use Types Packs/Day Years [...] Procedure Pass [facility] 70 [place] [address] 10/23/2024 Procedure Pass [facility] EKG 70 [place] [address] 10/23/2024 Procedure Pass [facility] EKG 70 [place] [address] 11/13/2024 Procedure Pass [address] [address] 11/13/2024 Procedure Pass [address] [address] 11/22/2024 1:00 PM EDT Telemedicine [facility] Endocrine, Diabetes, and Hypertension [address] [address] Svetlana Lucero, PharmD 75 [place] [address] nilam@[facility] 11/26/2024 1:00 PM EDT Social Work Social Work Department, [facility] at [address] [address] Hermelinda Barajas MD [address] [address] Pedro@[facility] Indigo Du, [facility] 300 [place] [address] [email or web address] .[facility] 12/04/2024 7:30 AM EDT Blood Draw Laboratory Services, [address], 2nd [place], [place] Hermelinda Barajas MD [address] [place] [address] Pedro@[facility] 12/04/2024 8:30 AM EDT Office Visit [facility] Center for Thoracic Oncology, [address], 9th [place] [address] Cindi Shell CNP [address] [place] [address] Benedict east@[facility] Hermelinda Barajas MD [address] [place] [address] Pedro@[facility] 12/04/2024 9:30 AM EDT Infusion Infusion Therapy Services Sowmya 9, [address], 9th [place] [address] Cindi Shell CNP [address] [place] [address] Benedict east@[facility] Patria Luevano, BRIELLE [address] [place] [address] STEFANO@[facility] 12/25/2024 6:30 AM EDT Blood Draw Laboratory Services, [address], 2nd [place] [address] Cindi Shell CNP [address] [place] [address] Benedict east@[facility] 12/25/2024 7:30 AM EDT Office Visit [facility] for [facility] On[facility], [facility] 450 [facility], 9th [place] [address] Cindi Shell CNP 450 [place] [address] Benedict east@[facility] 12/25/2024 8:30 AM EDT Infusion Infusion Therapy Services [place] [address], [address], 9th [place] [address] Cindi Shell CNP [address] [place] [address] Benedict east@[facility] 01/11/2025 11:45 AM EST Appointment [facility], [address] [address] Hermelinda Barajas MD [address] [place] [address] 1240 [place] [address] Pedro@[facility] 01/15/2025 7:10 AM EST Blood Draw Laboratory Services, [address], 2nd [place] [address] Cindi Shell CNP 450 [place] [address] Benedict east@[facility] 01/15/2025 8:00 AM EST Office Visit [facility], [facility] [address] [facility], 9th [place] [address] Hermelinda Barajas MD 450 [facility] 1240 [place] [address] Pedro@[facility] 01/15/2025 9:00 AM EST Infusion Infusion Therapy Services [place]ia 9[facility] 450 [facility], 9th [place] [address] Cindi Shell CNP 450 [place] [address] Benedict east@[facility] 01/18/2025 7:35 AM EST Hospital Encounter [facility] EKG 70 [place] [address] Guanakito Gallardo MD 75 [facility] [place] [address] [email or web address] [facility] 01/18/2025 8:30 AM EST Appointment [facility] and Women's Radiology 70 [place] [address] Odalis Jimenez PA-C 70 [facility] 5th [place] [address] [email or web address] 02/01/2025 8:40 AM EST Office Visit [facility] Otolaryngology 45 [facility] ASB2-2 [place] [address] Demetrio Armstrong MD 45 [place] [phone] [email or web address] 02/25/2025 9:30 AM EST Telemedicine [facility] Cardiovascular Clinic 70 [place] [address] Guanakito Gallardo MD [address] [place] [address] [email or web address] 07/04/2025 10:00 AM EDT Telemedicine [facility] Cardiovascular Clinic 70 [place] [address] Thiago Bean MD [address] [place] [address] [email or web address] 10/18/2025 7:05 AM EDT Hospital Encounter [facility] EKG 70 [place] [address] Guanakito Gallardo MD [address] [place] [address] [email or web address] Arrived documented as of this encounter Visit Diagnoses Not on filedocumented in this encounter Additional Health Concerns Infection Onset Date Last Indicated Resolved Time COVID-19 04/06/2023 04/06/2023 04/27/2023 1:21 AM EST CoV-Risk 07/17/2024 07/17/2024 07/28/2024 1:21 AM EDT documented as of this encounter Care Teams Movie Shot Camera Operator Relationship Specialty Start Date End Date Aubrey Taylor [place] [address] PCP - General Internal Medicine 05/28/22 08/03/22 Jn Cline DO [address] [address] [email or web address] PCP - General Hospitalist 08/04/22 08/12/22 Aubrey Taylor [place] [address] PCP - General Internal Medicine 08/13/22 09/14/22 Marilynn Daly NP PCP - General Nurse Practitioner 09/15/22 10/12/22 Grecia Bonilla MD [address] [place] [address] [place] [address] PCP - General Internal Medicine 10/13/22 Indigo Du, [facility] 300 [place] [address] [email or web address] Mortician Helper Oncology 07/27/22 Hermelinda Barajas MD [address] [place] [address] Pedro@[facility] Medical Oncology 11/29/22 Cindi Shell CNP [address] [place] [address] Fina@[facility] Gerontology 11/29/22 Zuri Ha RN [address] [place] [address] Milton@[facility] Primary Infusion Nurse 01/10/24 05/14/24 Carlos Alberto King MD, [place] [address] [place] [address] Department of Psychosocial Oncology and Palliative Care, [place] [phone] Jaelyn@[facility] Hospice and Palliative Care 04/05/24 Patria Luevano, BRIELLE [address] [place] [address] STEFANO@[facility] Primary Infusion Nurse 05/15/24 Jennie Ferreira, BRIELLE [address] [place] [address] ALISON@[facility] Associate Infusion Nurse 10/02/24 documented as of this encounter Additional Source Comments The information contained in this document represents components of the legal health record. It is not the complete legal health record.[facility]
--- OUTSIDE RECORDS SUMMARY | 2024-11-20 11:56 | XMS_ITS | Encounter Summary ---
Author Organization [facility] Address [address] [place] [address] Phone Care Team Providers Care Assistant Women'S Soccer Coach Name Role Phone Indigo Du LASER BEAM MACHINE OPERATOR Unavailable Grecia Bonilla MD Primary Care Provider Hermelinda Barajas MD Unavailable [phone] Cindi Shell [facility] Unavailable Carlos Alberto King MD, [place] Unavailable Patria Luevano RN Unavailable TOBIAS [email or web address] Jennie Ferreira RN Unavailable [email or web address] Encounter Details Date Type Department Care Team (Late st Contact Info) Description 05/15/2024 Procedure Pass [facility], [address] [address] Social History Tobacco Use Types Packs/Day Years [...] [facility] and Women's Radiology 70 [place] [address] 10/23/2024 Procedure Pass [facility] EKG 70 [place] [address] 10/23/2024 Procedure Pass [facility] EKG 70 [place] [address] 11/13/2024 Procedure Pass [address] [address] 11/13/2024 Procedure Pass [address] [address] 11/22/2024 1:00 PM EDT Telemedicine [facility] Endocrine, Diabetes, and Hypertension 221 [facility] 2nd [place] [address] Svetlana Lucero, PharmD 75 [place] [address] [email or web address] 11/26/2024 1:00 PM EDT Social Work Social Work Department, [facility] [place] 300 [facility] 4th [place] [address] Hermelinda Barajas MD [address] [address] Pedro@[facility] Indigo Du, [facility] 300 [place] [address] [email or web address] 12/04/2024 7:30 AM EDT Blood Draw Laboratory Services, [address], 2nd Floor [place], [place] Hermelinda Barajas MD [address] [place] [address] Pedro@[facility] 12/04/2024 8:30 AM EDT Office Visit [facility] for Thoracic On[facility], [address], 9th [place] [address] Cindi Shell MARRIAGE COUNSELOR MINISTER [address] [place] [address] Benedict east@[facility] Hermelinda Barajas MD [address] [place] [address] Pedro@[facility] 12/04/2024 9:30 AM EDT Infusion Infusion Therapy Services [facility] 9, [facility] 450 [facility], 9th [place] [address] Cindi Shell MARRIAGE COUNSELOR MINISTER [address] [place] [address] Benedict east@[facility] Patria Luevano RN [address] [place] [address] [email or web address]@[facility] 12/25/2024 6:30 AM EDT [facility], [address], 2nd [place] [address] Cindi Shell CNP [address] [place] [phone] Benedict east@[facility] 12/25/2024 7:30 AM EDT Office Visit [facility], [address], 9th [place] [address] Cindi Shell CNP [address] [place] [address] Benedict east@[facility] 12/25/2024 8:30 AM EDT Infusion Infusion Therapy Services [facility] 9, [address], 9th [place] [address] Cindi Shell CNP [address] [place] [address] Benedict east@[facility] 01/11/2025 11:45 AM EST Appointment [facility], [address] [address] Hermelinda Barajas MD [address] [place] [address] 1240 [place] [address] Pedro@[facility] 01/15/2025 7:10 AM EST Blood Draw Laboratory Services, [facility] 450 [facility], 2nd [place] [address] Cindi Shell CNP 450 [place] [address] Benedict east@[facility] 01/15/2025 8:00 AM EST Office Visit [facility], [facility] 450 [facility], 9th [place] [address] Hermelinda Barajas MD [address] [place] [address] 1240 [place] [address] Pedro@[facility] 01/15/2025 9:00 AM EST Infusion Infusion Therapy Services [facility] 9, [facility] 450 [facility], 9th [place] [address] Cindi Shell CNP [address] [place] [phone] Benedict east@[facility] 01/18/2025 7:35 AM EST Hospital Encounter [facility] EKG 70 [place] [address] Guanakito Gallardo MD 75 [facility] [place] [address] Arrived 01/18/2025 8:30 AM EST Appointment Steve and Women's Radiology 70 [place] [address] Odalis Jimenez PA-C 70 [facility] 5th [place] [address] [email or web address] 02/01/2025 8:40 AM EST Office Visit [facility] Otolaryngology 45 [facility] ASB2-2 [place] [address] Demetrio Armstrong MD 45 [place] [phone] [email or web address] 02/25/2025 9:30 AM EST Telemedicine [facility] 70 [place] [address] Guanakito Gallardo MD [address] [place] [address] [email or web address] 07/04/2025 10:00 AM EDT Telemedicine [facility] [address] [place] [address] Thiago Bean MD [address] [place] [address] [email or web address] 10/18/2025 7:05 AM EDT Hospital Encounter [facility] EKG 70 [place] [address] Guanakito Gallardo MD [address] [place] [address] [email or web address] Arrived documented as of this encounter Visit Diagnoses Not on filedocumented in this encounter Additional Health Concerns Infection Onset Date Last Indicated Resolved Time CoV-Risk 07/17/2024 07/17/2024 07/28/2024 1:21 AM EDT documented as of this encounter Care Teams Assistant Women'S Soccer Coach Relationship Specialty Start Date End Date Grecia Bonilla MD [address] [place] [address] [place] [address] PCP - General Internal Medicine 10/13/22 Indigo Du [facility] 300 [place] [address] [email or web address] Cisco Consultant Oncology 07/27/22 Hermelinda Barajas MD [address] [place] [address] 1240 [place] [address] Pedro@[email or web address] Medical Oncology 11/29/22 Cindi Shell CNP [address] [place] [address] [email or web address] Gerontology 11/29/22 Carlos Alberto King MD, [place] [address] [place] [address] Department of Psychosocial Oncology and Palliative Care, [place] [address] Jaelyn@[facility] Hospice and Palliative Care 04/05/24 Patria Luevano, BRIELLE [address] [place] [address] STEFANO@[facility] Primary Infusion Nurse 05/15/24 Jennie Ferreira RN [address] [place] [phone] ALISON@[email or web address] Associate Infusion Nurse 10/02/24 documented as of this encounter Additional Source Comments The information contained in this document represents components of the legal health record. It is not the complete legal health record.[facility]
--- OUTSIDE RECORDS SUMMARY | 2024-11-20 11:56 | XMS_ITS | Encounter Summary ---
Author Organization [facility] Address [address] [place] [address] Phone Care Team Providers Care Sanitation Engineer Name Role Phone Indigo Du SALES PLANNING COORDINATOR Unavailable Grecia Bonilla MD Primary Care Provider Hermelinda Barajas MD Unavailable [phone] Cindi Shell [facility] Unavailable Carlos Alberto King MD, [place] Unavailable [phone] Patria Luevano RN Unavailable TOBIAS [email or web address] Jennie Ferreira RN Unavailable ALISON@ [email or web address] Encounter Details Date Type Department Care Team (Late st Contact Info) Description 05/15/2024 Procedure Pass [facility], Ct Scan - [facility] 30 [place] [address] Social History Tobacco Use Types Packs/Day Years [...] st Contact Info) Description 10/18/2024 Procedure Pass [facility] and Women's Radiology 70 [place] [address] 10/23/[address] [facility] EKG 70 [place] [address] 10/23/[address] [facility] EKG 70 [place] [address] 11/13/2024 Procedure Pass [address] [address] 11/13/2024 Procedure Pass [address] [address] 11/22/2024 1:[address] [facility] Endocrine, Diabetes, and Hypertension 221 [facility] 2nd [place] [address] Svetlana Lucero, PharmD 75 [place] [address] [email or web address] 11/26/2024 1:00 PM EDT Social Work Social Work Department, [facility] 300 [facility] 4th [place] [address] Hermelinda Barajas MD [address] [address] Pedro@[facility] Indigo Du, [facility] 300 [place] [address] [email or web address] 12/04/2024 7:30 AM EDT Blood Draw Laboratory Services, [address], 2nd Floor [place], [place] Hermelinda Barajas MD [address] [place] [address] Pedro@[facility] 12/04/2024 8:30 AM EDT Office Visit [facility], [address], 9th [place] [address] Cindi Shell MICROARRAY OPERATIONS VICE PRESIDENT [address] [place] [address] Benedict [email or web address] Hermelinda Barajas MD [address] [place] [address] [place] [address] Pedro@[facility] 12/04/2024 9:30 AM EDT Infusion Infusion Therapy Services [facility] 9, [facility] 450 [facility], 9th [place] [address] Cindi Shell MICROARRAY OPERATIONS VICE PRESIDENT 450 [place] [address] Benedict east@[facility] Patria Luevano RN [address] [place] [address] [email or web address]@[facility] 12/25/2024 6:30 AM EDT [facility], [address], 2nd [place] [address] Cindi Shell CNP [address] [place] [address] Benedict east@[facility] 12/25/2024 7:30 AM EDT Office Visit [facility], [address], 9th [place] [address] Cindi Shell CNP [address] [place] [address] Benedict east@[facility] 12/25/2024 8:30 AM EDT Infusion Infusion Therapy Services [facility] 9, [address], 9th [place] [address] Cindi Shell CNP [address] [place] [phone] Benedict east@[facility] 01/11/2025 11:45 AM EST Appointment [facility], Ct Scan [address] [address] Hermelinda Barajas MD [address] [place] [address] 1240 [place] [address] Pedro@[facility] 01/15/2025 7:10 AM EST Blood Draw Laboratory Services, [facility] 450 [facility], 2nd [place] [address] Cindi Shell CNP 450 [place] [address] Benedict east@[facility] 01/15/2025 8:00 AM EST Office Visit [facility], [facility] 450 [facility], 9th [place] [address] Hermelinda Barajas MD [address] [place] [address] 1240 [place] [address] Pedro@[facility] 01/15/2025 9:00 AM EST Infusion Infusion Therapy Services [facility] 9, [address], 9th [place] [address] Cindi Shell CNP [address] [place] [address] Benedict east@[facility] 01/18/2025 7:35 AM EST Hospital Encounter [facility] EKG 70 [place] [address] Guanakito Gallardo MD 75 [facility] [place] [address] Arrived 01/18/2025 8:30 AM EST Appointment [facility] 70 [place] [address] Odalis Jimenez PA-C 70 [facility] 5th [place] [address] [email or web address] 02/01/2025 8:40 AM EST Office Visit [facility] Otolaryngology 45 [facility] ASB2-2 [place] [address] Demetrio Armstrong MD 45 [place] [phone] [email or web address] 02/25/2025 9:30 AM EST Telemedicine [facility] 70 [place] [address] Guanakito Gallardo MD [address] [place] [address] [email or web address] 07/04/2025 10:00 AM EDT Telemedicine [facility] [address] [place] [address] Thiago Bean MD [address] [place] [address] [email or web address] 10/18/2025 7:05 AM EDT Hospital Encounter [facility] EKG 70 [place] [address] Guanakito Gallardo MD [address] [place] [address] [email or web address] Arrived documented as of this encounter Visit Diagnoses Not on filedocumented in this encounter Additional Health Concerns Infection Onset Date Last Indicated Resolved Time CoV-Risk 07/17/2024 07/17/2024 07/28/2024 1:21 AM EDT documented as of this encounter Care Teams Sanitation Engineer Relationship Specialty Start Date End Date Grecia Bonilla MD [address] [place] [address] [place] [address] PCP - General Internal Medicine 10/13/22 Indigo Du, [facility] 300 [place] [address] [email or web address] Skydiving Instructor Oncology 07/27/22 Hermelinda Barajas MD [address] [place] [address] 1240 [place] [address] Pedro@[email or web address] Medical Oncology 11/29/22 Cindi Shell CNP [address] [place] [address] [email or web address] Gerontology 11/29/22 Carlos Alberto King MD, [place] [address] [place] [address] Department of Psychosocial Oncology and Palliative Care, [place] [phone] Jaelyn@[facility] Hospice and Palliative Care 04/05/24 Patria Luevano, BRIELLE [address] [place] [address] [email or web address]@[facility] Primary Infusion Nurse 05/15/24 Jennie Ferreira RN [address] [place] [address] [email or web address]@[email or web address] Associate Infusion Nurse 10/02/24 documented as of this encounter Additional Source Comments The information contained in this document represents components of the legal health record. It is not the complete legal health record.[facility]
--- OUTSIDE RECORDS SUMMARY | 2024-11-20 11:56 | XMS_ITS | Clinical Summary ---
Author Organization [facility] Address [address] [facility] [address] [place] [address] Phone Care Team Providers Care Tariff Counsel Name Role Phone Indigo Du SYSTEMS INTEGRATION ENGINEER Unavailable [phone] Grecia Baird MD Primary Care Provider Hermelinda Barajas MD Unavailable [phone] Cindi Shell SINTERING PRESS OPERATOR Unavailable Carlos Alberto King MD, [place] Unavailable Patria Luevano RN Unavailable [email or web address] Jennie Ferreira RN Unavailable [email or web address] Allergies Active Allergy Reactions Criticality Noted [...] daily and discuss with PCP 1 kit 11/30/19 23 Active GAS RELIEF, SIMETHICONE, 80 mg chewable tablet CHEW 1 TABLET BY MOUTH EVERY 6 HOURS NEEDED. 60 tablet 2 05/04/19 24 Active ketoconazole 2 % cream APPLY TOPICALLY DAILY. TO SOLES OF FEET AND IN BETWEEN TOES, APPLY THIS BEFORE ANY MOISTURIZING CREAMS 60 g 11 08/01/19 24 Active ondansetron (ZOFRAN) 8 MG tablet Take 1 tablet (8 mg total) by mouth every 8 (eight) hours as needed for nausea. 30 tablet 3 12/20/19 24 Active hydrocortisone 2.5 % cream Apply topically 2 (two) times a day. 20 g 3 01/31/20 24 Active folic acid (FOLVITE) 1 MG tablet Take 1 tablet (1,000 mcg total) by mouth daily. 90 tablet 1 04/03/19 25 Active magnesium oxide (MAG-OX) 400 mg (241.3 mg elemental) tablet Take 1 tablet (400 mg total) by mouth daily. 90 tablet 1 06/06/19 25 Active famotidine (PEPCID) 20 MG tablet TAKE 2 TABLETS BY MOUTH TWICE A DAY STOP OMEPRAZOLE 360 tablet 07/12/19 25 Active urea 40 % Crea Apply 1 Application topically daily. To scaly skin on feet 198.4 g 11 07/13/19 25 Active acetaminophen (TYLENOL) 500 MG tablet TAKE 1 TABLET BY MOUTH TWICE A DAY 60 tablet 3 08/11/19 25 Active prochlorperazine (COMPAZINE) 10 MG tablet TAKE 1 TABLET BY MOUTH EVERY 6 HOURS NEEDED *SEDATING, DO NOT DRIVE* 30 tablet 09/27/19 25 Active dexAMETHasone (DECADRON) 4 MG tablet Take 1 tablet (4 mg) twice daily the day before, day of and day after chemotherapy only. 30 tablet 1 09/29/19 25 Active rivaroxaban (XARELTO) 20 mg TabIndications:Pa roxysmal atrial fibrillation Take 1 tablet (20 mg total) by mouth daily. 90 tablet 1 09/28/19 25 Active insulin aspart U-100 (NOVOLOG) 100 unit/mL (3 mL) injection pen INJECT 4 TO 12 UNITS SUBCUTANEOUSLY 3 TIMES A DAY BEFORE MEALS PER SLIDING SCALE 09/19/19 25 Active insulin glargine 100 unit/mL (3 mL) InPn injection penIndications:Ty pe 2 diabetes mellitus with hyperglycemia, with long-term current use of insulin Inject 10 Units under the skin daily. 15 mL 3 10/26/19 25 Active Additional Information Patient not taking.Reported on 11/16/2024 insulin pen needles, disposable, 32 gauge x NdleIndications:T ype 2 diabetes mellitus with hyperglycemia, with long-term current use of insulin,Primary adenocarcinoma of lung, unspecified laterality,Vitami n D deficiency, unspecified,Anemi a, unspecified type 1 each by Miscellaneous route 4 (four) times a day before meals and nightly. 100 each 5 10/27/19 Active ibuprofen (ADVIL,MOTRIN) 400 MG tablet Take 400 mg by mouth every 6 (six) hours as needed for pain (specific location in comments). Disconti nued(No longer taking) aspirin 81 MG EC tablet Take 81 mg by mouth daily. Disconti nued(No longer taking) Active Problems Patient Care Coordination No te Formatting of this note migh t be different from the original. 06/18/2022 Abdirahman Leon gave verbal permission for staff to speak to his life partner, Ana Morton, at any time re diagnosis, treatment and prognosis. Abdirahman asked for a referral to [facility]. This agency supplies home health aides. Phone no. = [phone] ex. [phone] and Fax = [phone]. SCHEDULING - PLEASE CALL PATIENT TO SCHEDULE APPTS, DOES NOT LIKE PATIENT GATEWAY TO SCHEDULE Oxygen supplier is [facility]. and Problem Noted Date Diagnosed Date Atrial fibrillation 10/18/2024 Primary lung adenocarcinoma 06/15/2022 Encounters Date Type Department Care Team Description 11/21/19 Telephone [facility] for Thoracic On[facility], [facility] [place] [address] [facility], 9th [place] [address] Helena Garnica RN Care Coordination 11/17/19 9:00 AM EDT Office Visit [facility] [address] [place] [address] Andrew Lima MD Chronic midline low back pain without sciatica (Primary Dx); Class 1 obesity due to excess calories with serious comorbidity and body mass index (BMI) of 34.0 to 34.9 in adult 11/17/19 8:14 AM EDT - 11/17/19 11:59 PM EDT Hospital Encounter [facility] MSK Diagnostic X-ray Imaging, [place] [address] [place] [address] Andrew Lima MD Arrived Discharge Disposition: Home or Self Care 11/14/19 8:30 AM EDT Infusion Infusion Therapy Services [place] [address], [facility] [address] [facility], [address] [place] [address] Hermelinda Barajas MD Devitt, Suzanne Brigid, BRIELLE Primary adenocarcinoma of lung, unspecified laterality (Primary Dx) 11/14/19 7:30 AM EDT Office Visit [facility] Oncology, [facility] [address] [facility], [address] [place] [address] Hermelinda Barajas MD Malignant neoplasm of lung, unspecified laterality, unspecified part of lung (Primary Dx); Encounter for long-term (current) use of medications 11/14/[address] [facility] DIABETES MEDICINE [address] [place] [address] Frank Partida, PhD SUZY/ADVICE 11/10/19 9:07 AM EDT - 11/10/19 11:59 PM EDT Hospital Encounter [facility], [address] [address] Hermelinda Barajas MD Discharge Disposition: Home or Self Care 11/08/19 Orders Only [facility] [address] [place] [address] Andrew Lima MD Pain (Primary Dx) 11/06/19 3:30 PM EDT Social Work Social Work Department, [facility] [place] [facility] [place] [address] [facility] [address] [place] [address] Hermelinda Barajas MD Levine, Mariah, LICSW 11/02/19 25 10:00 AM EDT Telemedicine [facility] Cardiovascular Clinic [address] [place] [address] Thiago Bean MD Paroxysmal atrial fibrillation (Primary Dx); Primary hypertension 10/31/19 25 Telephone [facility] Endocrinology [address] [place] [address] Rika Butts DM Device Orders (Freestyle Nadir 3 plus) 10/26/19 25 10:00 AM EDT Office Visit [facility] DIABETES MEDICINE [address] [place] [address] Frank Partida MD Type 2 diabetes mellitus with hyperglycemia, with long-term current use of insulin (Primary Dx); Primary adenocarcinoma of lung, unspecified laterality; Vitamin D deficiency, unspecified; Anemia, unspecified type 10/25/19 25 Telephone [facility], [facility] [address] [facility], 10th [place] [address] Helena Garnica RN Symptom Management 10/24/19 8:30 AM EDT Infusion Infusion Therapy Services [place] 9, [facility] [address] [facility], 9th [place] [address] Hermelinda Barajas MD Viola, Olimpia, RN Primary adenocarcinoma of lung, unspecified laterality (Primary Dx) 10/24/19 25 7:30 AM EDT Office Visit [facility] for Thoracic Oncology, [facility] [address] [facility], [address] [place] [address] Cindi Shell CNP Primary adenocarcinoma of lung, unspecified laterality (Primary Dx) 10/24/[address] [facility] EKG [address] [place] [address] Guanakito Gallardo MD Paroxysmal atrial fibrillation (Primary Dx) 10/21/19 25 Documentation [facility] Cardiology [address] [place] [address] Geraldine Ngo PA-C 10/20/19 25 Telephone [facility] [address] [place] [address] Melanie Cruz PA-C Antonellis/pt returning call 10/20/19 Telemedicine [facility] Cardiology [address] [place] [address] Melanie Cruz PA-C Paroxysmal atrial fibrillation (Primary Dx) 10/19/19 11:27 AM EDT Anesthesia Event [facility] Electrophysiology Lab [address] [place] [address] Zain Carmona MD Sohn, Sei Yon, MBBS 10/19/19 11:10 AM EDT - 10/19/19 4:[address] [facility] Electrophysiology Lab [address] [place] [address] Guanakito Gallardo MD Ablation, Atrial Fibrillation Paroxysmal 10/19/19 9:01 AM EDT - 10/19/19 7:22 PM EDT Hospital Encounter [facility] L2 PRU [address] [place] [address] Guanakito Gallardo MD Discharge Disposition: Home or Self Care 10/19/19 8:49 AM EDT - 10/19/19 9:00 AM EDT Hospital Encounter [facility] Phlebotomy Admitting [address] [place] [address] Discharge Disposition: Home or Self Care 10/19/[address] [facility] Echocardiography [address] [place] [address] 10/19/[address] [facility] Electrophysiology Lab [address] [place] [address] 10/18/19 2:20 PM EDT - 10/18/19 11:59 PM EDT Hospital Encounter [facility] Radiology [address] [place] [address] Yeimy Holder PA-C Discharge Disposition: Home or Self Care 10/18/19 25 Procedure Pass [facility] Radiology [address] [place] [address] 10/18/19 25 Ancillary Orders [facility] Cardiology [address] [place] [address] Yeimy Holder PA-C Retinal artery occlusion (Primary Dx); Paroxysmal atrial fibrillation 10/17/19 1:30 PM EDT Social Work Social [facility] Department, [facility] [place] [facility] [address] [address] Hermelinda Barajas MD Levine, Mariah, LICSW 10/03/19 9:30 AM EDT Infusion Infusion Therapy Services [address] [facility], [address] [place] [address] Hermelinda Barajas MD Viola, Olimpia, RN Primary adenocarcinoma of lung, unspecified laterality (Primary Dx) 10/03/19 8:30 AM EDT Office Visit [facility] for Thoracic Oncology, [facility] [address] [facility], [address] [place] [address] Cindi Shell CNP Primary adenocarcinoma of lung, unspecified laterality (Primary Dx) 09/28/19 Orders Only [facility] Cardiology [address] [place] [address] Kirsten Coleman PA-C Paroxysmal atrial fibrillation (Primary Dx) 09/28/19 [facility] for [facility], [facility] [address] [facility], [address] [place] [address] Cindi Shell CNP Med Change Request 09/26/19 11:30 AM EDT Office Visit [facility] Clinic [address] [place] [address] Thiago Bean MD Paroxysmal atrial fibrillation (Primary Dx) 09/26/19 25 Procedure Pass [facility] Radiology [address] [place] [address] 09/26/19 Orders Only [facility] Cardiology [address] [place], [place] [id number] Yeimy Holder PA-C Retinal artery occlusion (Primary Dx); Paroxysmal atrial fibrillation 09/26/19 25 Telephone [facility] [address] [place] [address] Thiago Bean MD Screen Room Operator Call 09/26/19 Telephone [facility] [address] [place] [phone] Guanakito Gallardo MD Sami/ Order 09/25/19 1:00 PM EDT Social Work Social Work Department, [facility] [place] [facility] [place] [address] [facility] 4th [place] [address] Hermelinda Barajas MD Levine, Mariah SYSTEMS INTEGRATION ENGINEER 09/25/19 7:42 AM EDT Anesthesia Event [facility] Endoscopy Department [address] [place] [address] Renata Bettencourt MD Brito, Bianca, BRIELLE 09/25/19 7:30 AM EDT - 09/25/19 8:[address] [facility] Endoscopy Department [address] [place] [address] Isaiah Vides MD, MPH ESOPHAGOGASTRODUODENOSCOPY + biopsies stomach and duodenum 09/25/19 6:59 AM EDT - 09/25/19 9:20 AM EDT Hospital Encounter [facility] Endoscopy Department [address] [place] [phone] Isaiah Vides MD, MPH Discharge Disposition: Home or Self Care 09/25/[address] [facility] [address] [place] [address] Thiago Bean MD 09/25/[address] [facility] Endoscopy Department [address] [place] [address] 09/24/19 25 Refill [facility] Medical Specialties [address] [facility] [place] [address] Isaiah Vides MD, MPH Medication Refill 09/24/19 25 Refill [facility] On[facility], [facility] [place] [address] [facility], 9th [place] [address] Cindi Shell CNP Medication Refill 09/13/19 25 Telephone Infusion Therapy Services [place] [address], [facility] [address] [facility], 10th [place] [address] Helena Garnica, RN Care Coordination; Symptom Management 09/12/19 25 8:30 AM EDT Infusion In[facility] Services [address] [facility], [address]th [place] [address] Hermelinda Barajas MD Devitt, Suzanne Brigid, BRIELLE Primary adenocarcinoma of lung, unspecified laterality (Primary Dx) 09/12/19 Orders Only [facility] for Thoracic Oncology, [address], [address] [place] [address] Hermelinda Barajas MD 09/11/19 3:30 PM EDT Telemedicine [facility], [address], [address] [place] [address] Hermelinda Barajas MD Primary adenocarcinoma of lung, unspecified laterality (Primary Dx); Encounter for long-term (current) use of medications 09/11/19 12:07 PM EDT - 09/11/19 11:59 PM EDT Hospital Encounter [address] [address] Hermelinda Barajas MD Discharge Disposition: Home or Self Care 09/11/19 Procedure Pass [address] [address] 09/11/19 Procedure Pass [address] [address] 09/05/19 10:30 AM EDT Social Work Social Work Department, [facility] [place] [address] [facility] [address] [place] [address] Hermelinda Barajas MD Levine, Mariah, LICSW 09/04/19 Telephone [facility] for [facility]acic Oncology, [address], [address] [place] [address] Patria Mar, RN Check in 08/28/19 Telephone [facility] Oncology, [address] [facility], 9th [place] [address] Patria Mar RN 08/28/19 Telephone [facility], [facility] [address] [facility], [address] [place] [address] Patria Mar RN Legs buckling 08/22/19 8:30 AM EDT Infusion Infusion Therapy Services [address] [facility], 9th [place] [address] Hermelinda Barajas MD Devitt, Patria Wood RN Primary adenocarcinoma of lung, unspecified laterality (Primary Dx) 08/22/19 7:30 AM EDT Office Visit [facility]cology, [address], [address] [place] [address] Cindi Shell CNP Primary adenocarcinoma of lung, unspecified laterality (Primary Dx) 07/18/19 Procedure Pass [address] [address] 07/18/19 Procedure Pass [address] [address] from Last 3 Months Family History Medical [...] EDT Inhaled Oxygen Concentration - - Weight 127.9 kg (282 lb) 11/16/2024 8:55 AM EDT Height 193 cm (6' 4 ) 11/16/2024 8:55 AM EDT Body Mass Index 34.33 11/16/2024 8:55 AM EDT Plan of Treatment Upcoming Encounters Date Type Department Care Team (Late st Contact Info) Description 10/18/2024 Procedure Pass [facility] [address] [place] [address] 10/23/[address] [facility] EKG [address] [place] [address] 10/23/[address] [facility] EKG [address] [place] [address] 11/13/2024 Procedure Pass [facility], Ct Scan - [address] [address] 11/13/2024 Procedure Pass [facility], Ct Scan - [facility] [address] [place] [address] 11/22/2024 1:[address] [facility] Endocrine, Diabetes, and Hypertension [address] [facility] 2nd [place] [address] Svetlana Lucero, PharmD 75 [place] [address] [email or web address] 11/26/2024 1:00 PM EDT Social Work Social Work Department, [facility] [place] [address] [address] Hermelinda Barajas MD [address] [place] [phone] [email or web address] Indigo Du, [facility] 300 [place] [address] [email or web address] 12/04/2024 7:30 AM EDT Blood Draw Laboratory Services, [address], [address] [place], [place] Hermelinda Barajas MD 450 [facility] [address] [place] [id number] [email or web address] 12/04/2024 8:30 AM EDT Office Visit [facility] On[facility], [facility] [address] [facility], [address]th [place] [address] Cindi Shell CNP [address] [place] [address] [email or web address] Hermelinda Barajas MD 450 [facility] [address] [place] [address] [email or web address] 12/04/2024 9:30 AM EDT Infusion [facility], [address], 9th [place] [address] Cindi Shell CNP [address] [place] [address] [email or web address] Patria Luevano, BRIELLE [address] [place] [address] [email or web address] 12/25/2024 6:30 AM EDT Blood Draw Laboratory Services, [address], 2nd [place] [address] Cindi Shell SINTERING PRESS OPERATOR [address] [place] [phone] [email or web address] 12/25/2024 7:30 AM EDT Office Visit [facility] Oncology, [address], [address] [place] [address] Cindi Shell CNP [address] [place] [phone] Benedict [email or web address] 12/25/2024 8:30 AM EDT Infusion Infusion Therapy Services [place] [address], [address], [address]th [place] [address] Cindi Kelly CNP [address] [place] [address] Benedict [email or web address] 01/11/2025 11:45 AM EST Appointment [facility], Ct Scan - [facility] 30 [place] [address] Hermelinda Barajas MD [address] [place] [phone] [email or web address] 01/15/2025 7:10 AM EST Blood Draw Laboratory Services, [address], [address]nd [place] [address] Cindi Shell CNP [address] [place] [phone] Benedict [email or web address] 01/15/2025 8:00 AM EST Office Visit [facility] Oncology, [address], [address]th [place] [address] Hermelinda Barajas MD [address] [place] [phone] [email or web address] 01/15/2025 9:00 AM EST Infusion Infusion Therapy Services [place] [address], [address], [address]th [place] [address] Cindi Shell CNP [address] [place] [address] [email or web address] 01/18/2025 7:35 AM EST Hospital Encounter [facility] EKG [address] [place] [address] Guanakito Gallardo MD [address] [place] [address] [email or web address] Arrived 01/18/2025 8:30 AM EST Appointment [facility] [address] [place] [address] Odalis Jimenez PA-C [address] [facility] 5th [place] [address] [email or web address] 02/01/2025 8:40 AM EST Office Visit [facility] Otolaryngology [address] [facility] [place] [address] Demetrio Armstrong MD [address] [place] [phone] [email or web address] 02/25/2025 9:30 AM EST Telemedicine [facility] Cardiovascular Clinic [address] [place] [address] Guanakito Gallardo MD [address] [place] [address] [email or web address] 07/04/2025 10:00 AM EDT Telemedicine [facility]ovascular Clinic [address] [place] [address] Thiago Bean MD [address] [place] [address] [email or web address] 10/18/2025 7:05 AM EDT Hospital Encounter [facility] EKG [address] [place] [address] Guanakito Gallardo MD [address] [place] [phone] [email or web address] Arrived Health Maintenance Due Date Last Done [...] Additional history exists POTASSIUM LEVEL 11/13/2025 11/13/2024, 09/29, 10/18/2024, Additional history exists SCREENING FOR DIABETES [...] this topic Medical Devices Implanted Type Area Etymology Professor Device Identifier Shelf Expiration Date Model / Serial / Lot Device Watchman 24mm Flx Pro Ayleen Closure - [id number] Implanted:Qt y: 1 on 10/18/2024 by Guan[place]ito Gallardo MD at [facility] [place] [employer] AYLEEN Occluder N/A: Left Atrial Appendage Novint LINDA [id number] 08/22/2027 [id number] / / [id number] Procedures Procedure Name Priority Date/Time Associated Diagnosis Comments XR LUMBOSACRAL SPINE 2-3 VIEWS Routine 0 11/16/2024 8:22 AM EDT Pain MAGNESIUM Routine 11/13/2024 6:42 AM EDT Primary [...] 06/27/24 Golytely pr ep instruct sent in [facility] - Procedure, 75 [address] POCT GLUCOSE Routine [...] Recently Relevant to Health Maintenance Results * XR LUMBOSACRAL SPINE 2-3 VIEWS [...] Lima MD IMG XR SPINE Final Result * (ABNORMAL) Comprehensive metabolic panel (11/13/2024 6:42 AM EDT) Only the most recent of6 resultswithin the time period is included. SODIUM 135(L) 136 - 145 mmol/L [facility] POTASSIUM 4.0 3.4 - 5.1 mmol/L [facility] CHLORIDE 97(L) 98 - 107 mmol/L [facility] CO2 22 22 - 31 mmol/L [facility] BUN 24(H) 6 - 23 mg/dL [facility] CREATININE 1.28(H) 0.50 - 1.20 mg/dL [facility] GLUCOSE 157(H) 70 - 100 mg/dL [facility] ALBUMIN 4.8 3.5 - 5.2 g/dL [facility] TOTAL PROTEIN 8.2 6.4 - 8.3 g/dL [facility] CALCIUM 10.2 8.8 - 10.7 mg/dL [facility] ALKALINE PHOSPHATASE 82 40 - 129 U/L [facility] TOTAL BILIRUBIN 0.2 0.2 - 1.2 mg/dL [facility] AST 17 <41 U/L [facility] ALT 40 <42 U/L [facility] GLOBULIN 3.4 2.3 - 4.2 g/dL [facility] EGFR 64 >59 mL/min/1.7 3m2 [facility] Comment:Estimated glomerular filtration rate calculated using the CKD-EPI refit equation. ANION GAP 16 7 - 17 mmol/L [facility] Blood 11/13/2024 6:42 AM EDT 11/13/2024 6:44 AM EDT us Hermelinda Barajas MD LAB BLOOD ORDERABLES Final Resu lt [facility] [address] [place] [address] * (ABNORMAL) CBC and differential (11/13/2024 6:42 AM EDT) Only the most recent of6 resultswithin the time period is included. WBC 9.51 4.00 - 10.00 K/uL [facility] RBC 3.95(L) 4.50 - 6.40 M/uL [facility] HGB 10.9(L) 13.5 - 18.0 g/dL [facility] HCT 34.6(L) 40.0 - 54.0 % [facility] PLT 289 150 - 450 K/uL [facility] MCV 87.6 80.0 - 100.0 fL [facility] MCH 27.6 27.0 - 32.0 pg [facility] MCHC 31.5(L) 32.0 - 36.0 g/dL [facility] RDW 15.1(H) 11.5 - 14.5 % [facility] MPV 9.5 8.4 - 12.0 fL [facility] NRBC 0.00 0 /100 WBCs [facility] ABSOLUTE NRBC 0.00 0 K/uL [facility] DIFF METHOD Auto [facility] NEUTS 70.9 48.0 - 76.0 % [facility] LYMPHS 20.3 18.0 - 41.0 % [facility] MONOS 8.4 4.0 - 11.0 % [facility] EOS 0.0 0.0 - 5.0 % [facility] BASOS 0.1 0.0 - 1.5 % [facility] % IMMATURE GRANS 0.3 0.0 - 1.0 % [facility] ABSOLUTE NEUTS 6.74 1.92 - 7.60 K/uL [facility] ABSOLUTE LYMPHS 1.93 0.72 - 4.10 K/uL [facility] ABSOLUTE MONOS 0.80 0.16 - 1.10 K/uL [facility] ABSOLUTE EOS 0.00 0.00 - 0.50 K/uL [facility] ABSOLUTE BASOS 0.01 0.00 - 0.15 K/uL [facility] ABS IMMATURE GRANS 0.03 0.00 - 0.10 K/uL [facility] Blood 11/13/2024 6:42 AM EDT 11/13/2024 6:44 AM EDT us Hermelinda Barajas MD LAB BLOOD ORDERABLES Final Resu lt [facility] [address] [place] [address] * TSH (11/13/2024 6:42 AM EDT) Only the most recent of5 resultswithin the time period is included. TSH 0.46 0.27 - 4.20 uIU/mL [facility] Blood 11/13/2024 6:42 AM EDT 11/13/2024 6:44 AM EDT Hermelinda Barajas MD LAB BLOOD ORDERABLES Final Resu lt Performing Organization Address [facility] Co de Phone Number [facility] [address] [place] [address] * Free T4 (11/13/2024 6:42 AM EDT) Only the most recent of5 resultswithin the time period is included. FREE T4 1.1 0.9 - 1.7 ng/dL [facility] Blood 11/13/2024 6:42 AM EDT 11/13/2024 6:44 AM EDT Hermelinda Barajas MD LAB BLOOD ORDERABLES Final Resu lt Performing Organization Address [facility] de Phone Number [facility] [address] [place] [address] * Magnesium (11/13/2024 6:42 AM EDT) Only the most recent of5 resultswithin the time period is included. MAGNESIUM 1.7 1.7 - 2.6 mg/dL [facility] Blood 11/13/2024 6:42 AM EDT 11/13/2024 6:44 AM EDT us Hermelinda Barajas MD LAB BLOOD ORDERABLES Final Resu lt Performing Organization Address [facility] de Phone Number [facility] [address] [place], [place] [id number] * CT CHEST WITH CONTRAST (11/09/2024 9:23 [...] clinician's provided indication for this examination in [facility]: * Non- small cell lung cancer, [...] clinician's provided indication for this examination in [facility]: *Non- small cell lung cancer, metastatic, assess treatment response TECHNIQUE: Multidetector CT of the chest was performed with intravenouscontrast using tailored dose modulation techniques. COMPARISON: CT CHEST WITH CONTRAST ; CT CHEST WITH [id number]; CT CHEST WITH CONTRAST ; CT CHEST WITH [id number]; CT CHEST PULMONARY ANGIOGRAM (ACUTE) FINDINGS: Devices/Tubes/Lines: [...] lymph nodes and residual mediastinal softtissue thickening. us Hermelinda Barajas MD IMG CT CHEST Final [...] clinician's provided indication for this examination in [facility]: * Non- small cell lung cancer, [...] clinician's provided indication for this examination in [facility]: *Non- small cell lung cancer, metastatic, [...] enlarged small pelvic lymphnodes. Hermelinda Barajas MD IM CT ABD/PELVIS Final Result * (ABNORMAL) POCT Glucose (10/25/2024 10:24 AM EDT) Only the most recent of4 resultswithin the time period is included. Glucose, POCT 165(H) 70 - 100 mg/dL [facility] 10/25/2024 10:2 4 AM EDT 10/25/2024 10:25 AM EDT Frank Partida MD POINT OF CARE TEST ORDERABLES Fi nal Result Performing Organization Address [facility] Co de Phone Number [address] [address] * (ABNORMAL) POCT Hemoglobin A1c (10/25/2024 10:21 AM EDT) Pathologist [facility] HGB A1C 6.8(H) 4.2 - 5.6 % [facility] Comment:HbA1c levels 5.7-6.4 % represent pre-diabetes, indicating [...] ORDERABLES Fi nal Result Performing Organization Address [facility] Co de Phone Number [address] [address] * TTE LIMITED W/ COLOR FLOW AND LIMITED DOPPLER (10/18/2024 3:52 PM EDT) Pathologist [facility] Ejection Fraction 60 50 - 75 % Anatomical Region Laterality Modality Heart [facility] Addenda Addendum by Shannon Way MD on [...] important changes. Not all structures were compared. Pari Rivera MD CV ECHO ORDERABLES Edited Result - Final * ECG 12-LEAD (10/18/2024 3:09 PM EDT) Only the most recent of2 resultswithin the time period is included. Systolic Blood Pressure 140 mmHg [facility] Diastolic Blood Pressure 85 mmHg [facility] Ventricular Rate EKG/MIN 93 BPM [facility] Atrial Rate 93 BPM [facility] ID Interval 198 ms [facility] QRS Duration 94 ms [facility] QT Interval 368 ms [facility] QTC Interval 457 ms [facility] P [place] 66 degrees [facility] R Wave [place] 32 degrees [facility] T Wave [place] 55 degrees [facility] 10/18/2024 3:09 PM EDT Narrative [facility] - 10/18/2024 4:44 PM EDT Normal sinus rhythm Normal ECG When compared with ECG of 25-Sep-2024 12:22, No significant change was found Pari Rivera MD ECG ORDERABLES Final Res ult [facility] * ABLATION, ATRIAL FIBRILLATION PAROXYSMAL, LEFT ATRIAL APPENDAGE CLOSURE (TRANSVENOUS) (10/18/2024 2:35 PM EDT) Anatomical Region Laterality Modality BW[facility]PS Narrative 10/26/2024 10:56 AM EDT Images from the original result were not included. OPERATIVE REPORT Patient: Abdirahman Leon Sr. [facility] Medical Record: [id number] Date of : 1965 Date of Procedure: [...] for atrial fibrillation (pulmonary vein isolation) (CPT 71183). Additional ablation for atrial fibrillation after PVI (left atrial posterior wall isolation) (CPT 35093). Three-dimensional mapping (CPT 39344). Intracardiac echocardiography (CPT 17821). Watchman left atrial appendage occlusion (CPT 56010). ATTENDING Guanakito Gallardo MD SCENIC ARTS SUPERVISOR Pari Rivera MD PATIENT HISTORY: 59 y.o. [...] clotting time 337(H) 74 - [address] [facility] CARDIAC CATH DIAG INTERVENT[facility] 10/18/2024 1:56 PM EDT 10/18/2024 2:22 PM EDT Guanakito Gallardo MD POINT OF CARE TEST ORDE RABLES Final Result [facility] CARDIAC CATH DIAG INTERVENTION CTR [address] [place], [place] [id number] * ANES ETT DOUBLE LUMEN - AIRWAY LDA (10/18/2024 11:45 AM EDT) Narrative Malachi Powers MBBS - 10/18/2024 11:45 AM EDT Malachi Powers MBBS 10/18/2024 12:01 PM Airway Placement Procedure Note: Patient was not difficult to intubate. Procedure performed by: fellow/resident/CASHIER SUPERVISOR Anesthesiologist: Zain Carmona MD Fellow/Resident/CASHIER SUPERVISOR: Malachi Powers MBBS Airway procedure initiated at:10/18/2024 [...] teeth, dentition same as prior to intubation. Result [facility] Zain Carmona MD ID ANESTHESIA Final Result * (ABNORMAL) PTT (10/18/2024 8:52 AM EDT) APTT 38.7(H) 24.0 - 37.[address] [facility] Comment:Emicizumab (Hemlibra ) treatment can result in falsely lowered aPTT test results. 10/18/2024 8:52 AM EDT 10/18/2024 9:04 AM EDT Result [facility] Guanakito Gallardo MD LAB BLOOD ORDERABLES Fi nal Result Performing Organization Address [facility] Co de Phone Number [facility] [address] [place] [address] * (ABNORMAL) PT-INR (10/18/2024 8:52 AM EDT) PT 14.9(H) 10.0 - 13.[address] [facility] INR 1.3(H) 0.9 - 1.1 [facility] 10/18/2024 8:52 AM EDT 10/18/2024 9:04 AM EDT Guanakito Gallardo MD LAB BLOOD ORDERABLES Fi nal Result Performing Organization Address [facility] Co de Phone Number [facility] [address] [place] [phone] * Type and Screen (ABO,Rh,Antibody Screen) (10/18/2024 8:52 AM EDT) Expiration Date of Sample 10/21/2024 11:59 PM 10/18/2024 10:03 AM EDT [facility] Resulting Agency [facility] ABO Type A 10/18/2024 10:03 AM EDT [facility] Rh Type Positive 10/18/2024 10:03 AM EDT [facility] Antibody Screen Negative 10/18/2024 10:03 AM EDT [facility] 10/18/2024 8:52 AM EDT 10/18/2024 9:07 AM EDT Guanakito Gallardo MD BLOOD BANK TEST ORDERAB LES Final Result Performing Organization Address [facility] Co de Phone Number [facility] [address] [place] [phone] * (ABNORMAL) Basic metabolic panel (10/18/2024 8:52 AM EDT) SODIUM 139 136 - 145 mmol/L [facility] POTASSIUM 4.0 3.4 - 5.1 mmol/L [facility] CHLORIDE 100 98 - 107 mmol/L [facility] CO2 27 22 - 31 mmol/L [facility] BUN 19 6 - 23 mg/dL [facility] CREATININE 1.30(H) 0.50 - 1.20 mg/dL [facility] GLUCOSE 135(H) 70 - 100 mg/dL [facility] CALCIUM 9.8 8.8 - 10.7 mg/dL [facility] EGFR 63 >59 mL/min/1. 73m2 [facility] Comment:Estimated glomerular filtration rate calculated using the CKD-EPI refit equation. ANION GAP 12 7 - 17 mmol/L [facility] 10/18/2024 8:52 AM EDT 10/18/2024 9:04 AM EDT Guanakito Gallardo MD LAB BLOOD ORDERABLES Fi nal Result [facility] [address] [place] [address] * CT CARDIAC WITH CONTRAST (10/17/2024 2:50 [...] nodule. Patient scheduled for follow-up CT chest onSept2024. ATTESTATION: Prabhu Ojeda, as teaching physician havereviewed the images, if any, for this patient's exam, and if necessary,have edited the report originally created by Godwin Calabrese. us Yeimy Holder PA-C IMG CT CARDIAC Final [...] MD, MPH - 09/24/2024 7:[address] [facility] Gastroenterology Patient Name: Abdirahman Leon Procedure Date: 09/24/2024 7:14 AM Date of : 1965 Admit Type: Outpatient Age: 59 Room: 2 Gender: Male Note Status: Finalized Attending MD: Isaiah Vides MD, Instrument Name: [id number] Procedure: Upper GI endoscopy Indications: Abdominal pain, [...] physician as previously scheduled. Isaiah Vides MD [id number] Isaiah Vides MD 09/24/2024 8:05:03 AM This report has been signed electronically. Number of Addenda: 0 Note Initiated On: 09/24/2024 7:14 AM us Grecia Baird MD GI PROCEDURE ORDERABLE S Final Result * ENDOSCOPY, COLON (09/24/2024 7:13 AM EDT) 09/24/2024 7:13 AM EDT Narrative Transcriptions Isaiah Vides MD, MPH - 09/24/2024 7:[address] [facility] Gastroenterology Patient Name: Abdirahman Leon Procedure Date: [...] physical. Providers: Isaiah Vides MD, MIGUEL DUNLAP, RN Referring MD: GRECIA BAIRD M.D. (Referring [...] physician as previously scheduled. Isaiah Vides MD [id number] Isaiah Vides MD 09/24/2024 8:21:50 AM This report has been signed electronically. Number of Addenda: 0 Note Initiated On: 09/24/2024 7:13 AM Grecia Baird MD GI PROCEDURE ORDERABLE S Final Result * Anatomic Pathology (09/24/2024 12:00 AM EDT) 09/24/2024 09/24/[address] [facility] - 09/28/2024 12:58 PM EDT CASE: [id number] PATIENT: ABDIRAHMAN LEON Date: 1965 Sex: Male [facility] [place] [employer] Department of Pathology [address] [place] [address] CLIA License No.: [id number] Medical Liaison: Dr. Star Adrian M.D., Ph.D. Physician: ISAIAH VIDES MD, MPH Procedure Date: 09/24/2024 Resident: Paul Calderon MD, MS Pathologist: Urmila Das M.D., [facility] PATHOLOGIC DIAGNOSIS: A. DUODENUM BX: Duodenal mucosa [...] thereto. Final Diagnosis by Urmila Das M.D., NOAM, Electronically signed on Saturday September 28, 2024 at 12:57:41PM us Isaiah Vides MD, MPH PATHOLOGY ORDERABLES Char michelle Result [facility] [address] [place] [address] * CT CHEST WITH CONTRAST (09/10/2024 12:27 [...] clinician's provided indication for this examination in [facility]: *Non- small cell lung cancer, metastatic, [...] is of normal size without pericardial effusion. Rjsho-yyfhcitonr-msvfc aortic arch. No aneurysm. No coronary artery [...] with associated bandlike areas of consolidation. This [id number] x 13 mm, previously 12 x 15 [...] iliac chainlymph nodes. 5. Fat-containing umbilical hernia. us Hermelinda Barajas MD IMG CT CHEST Final [...] clinician's provided indication for this examination in [facility]: *Non- small cell lung cancer, metastatic, [...] is of normal size without pericardial effusion. Azffv-hhqdrpiwla-gbokf aortic arch. No aneurysm. No coronary artery [...] with associated bandlike areas of consolidation. This [id number] x 13 mm, previously 12 x 15 [...] 7:26 AM EDT) HCV Ab Negative Negative [facility] Comment: (NOTE) Fvaejj-xb-eiyhmd ratio is <1.00. Blood 07/20/2022 7:26 AM EDT 07/20/2022 7:35 AM EDT Hermelinda Barajas MD LAB BLOOD ORDERABLES Final Resu lt [facility] [address] [place] [address] from Last 3 Months or Most Recently Relevant to Health Maintenance Insurance [facility] MEDICARE PART A & B [facility] MEDICARE PART A & B [facility] B [facility] A & B [facility] [phone] MEDICARE PART A & B [facility]IC[facility] PART A & B [facility] PART A & B [facility] PART A & B [place] MED[place] PART A & B Advance Directives For more information, please contact: [phone] (9AM - 5PM [facility], Tuesday-Tuesday) Documents on File Type Date Recorded Patient Environmental Services Director Expl anation Healthcare Proxy 10/19/2024 5:09 PM * Full Code (Latest Code Status on File) Date Activated Date Inactivated Comments 10/18/2024 2:58 PM Question Answer Comments Code Status Confirmed With: Patient * Full Code Date Activated Date Inactivated Comments 10/18/2024 2:58 PM 10/18/2024 2:58 PM Question Answer Comments Code Status Confirmed With: Patient Care Teams Tariff Counsel Relationship Specialty Start Date End Date Grecia Baird MD [address] [place] [address] [place] [phone] PCP - General Internal Medicine 10/13/22 Indigo Du, SYSTEMS INTEGRATION ENGINEER [address] [place] [address] [email or web address] Driver/Customer Service Oncology 07/27/22 Hermelinda Barajas MD [address] [place] [address] [address] [place] [address] [email or web address] Medical Oncology 11/29/22 Cindi Shell CNP [address] [place] [email or web address] 11/29/22 Carlos Alberto King MD, DC [address] [place] [address] Department of Psychosocial Oncology and Palliative Care, [place] [phone] [email or web address] Hospice and Palliative Care 04/05/24 Patria Luevano, RN [address] [place] [id number] [email or web address] Primary Infusion Nurse 05/15/24 Jennie Ferreira RN [address] [place] [email or web address] Associate Infusion Nurse 10/02/24 Additional Source Comments The information contained in this document represents components of the legal health record. It is not the complete legal health record.[facility]
--- OUTSIDE RECORDS SUMMARY | 2024-11-20 11:56 | XMS_ITS | Encounter Summary ---
Author Organization [facility] Address [address] [facility] [address] [place] [address] Phone Care Team Providers Care Oracle Iam Consultant Name Role Phone Indigo DuSW Unavailable Grecia Bonilla MD Primary Care Provider Hermelinda Barajas MD Unavailable [phone] Cindi Shell [facility] Unavailable [phone] Carlos Alberto King MD, [place] Unavailable Patria Luevano RN Unavailable TOBIAS [email or web address] Jennie Ferreira RN Unavailable ALISON@ [facility] Encounter Details Date Type Department Care Team (Late st Contact Info) Description 08/27/2024 Telephone [facility] Thoracic Oncology, [facility] [facility] [address] [place] [address], 9th [place] [address] Patria Mar, RN [address] [place] [address] Chantell@[facility] Social History Tobacco Use Types [...] st Contact Info) Description 10/18/2024 Procedure Pass [facility] and Women's Radiology 70 [place] [address] 10/23/[address] [facility] EKG 70 [place] [address] 10/23/[address] [facility] EKG 70 [place] [address] 11/13/2024 Procedure Pass [address] [address] 11/13/2024 Procedure Pass [address] [address] 11/22/2024 1:[address] [facility] Endocrine, Diabetes, and Hypertension 221 [facility] 2nd [place] [address] Svetlana Lucero, PharmD 75 [place] [address] nilam@[facility] 11/26/2024 1:00 PM EDT Social Work Social Work Department, [facility] 300 [facility] 4th [place] [address] Hermelinda Barajas MD [address] [place] [address] Pedro@[facility] Indigo Du, [facility] 300 [place] [address] christina@[facility] 12/04/2024 7:30 AM EDT Blood Draw Laboratory Services, [address], 2nd [place] [address] Hermelinda Barajas MD [address] [place] [address] Pedro@[facility] 12/04/2024 8:30 AM EDT [facility]acic Oncology, [address], 9th [place] [address] Cindi Shell CNP [address] [place] [address] Benedict east@[facility] Hermelinda Barajas MD [address] [place] [address] Pedro@[facility] 12/04/2024 9:30 AM EDT Infusion Infusion Therapy Services [facility], [address] [facility], 9th [place] [address] Cindi Shell CNP [address] [place] [address] Benedict east@[facility] Patria Luevano, BRIELLE [address] [place] [address] STEFANO@[facility] 12/25/2024 6:30 AM EDT Blood Draw Laboratory Services, [address], 2nd [place] [address] Cindi Shell CNP [address] [place] [address] Benedict east@[facility] 12/25/2024 7:30 AM EDT [facility] Thoracic Oncology, [address], 9th [place] [address] Cindi Shell CNP [address] [place] [address] Benedict east@[facility] 12/25/2024 8:30 AM EDT Infusion Infusion Therapy Services [facility] 9, [address], 9th [place] [address] Cindi Shell CNP [address] [place] [address] Benedict east@[facility] 01/11/2025 11:45 AM EST Appointment [facility], Ct Scan - [facility] 30 [place] [address] Hermelinda Barajas MD 450 [facility] 1240 [place] [address] Pedro@[facility] 01/15/2025 7:10 AM EST Blood Draw Laboratory Services, [facility] 450 [facility], 2nd [place] [address] Cindi Shell CNP 450 [place] [address] Benedict east@[facility] 01/15/2025 8:00 AM EST [facility] Thoracic Oncology, [facility] 450 [facility], 9th [place] [address] Hermelinda Barajas MD [address] [address] Pedro@[facility] 01/15/2025 9:00 AM EST Infusion Infusion Therapy Services [facility] 9, [facility] 450 [facility], 9th [place] [address] Cindi Shell CNP 450 [place] [address] Benedict east@[facility] 01/18/2025 7:35 AM EST Hospital Encounter [facility] EKG 70 [place] [address] Guanakito Gallardo MD [address] [place] [address] [place] [address] Arrived 01/18/2025 8:30 AM EST Appointment Steve and Women's Radiology 70 [place] [address] Odalis Jimenez PA-C 70 [facility] 5th [place] [address] vinny@[facility] 02/01/2025 8:40 AM EST Office Visit [facility] Otolaryngology 45 [facility] ASB2-2 [place] [address] Demetrio Armstrong MD 45 [place] [phone] mak@[facility] 02/25/2025 9:30 AM EST Telemedicine [facility] Clinic 70 [place] [address] Guanakito Gallardo MD [address] [place] [address] [place] [address] 07/04/2025 10:00 AM EDT Telemedicine [facility] Cardiovascular Clinic 70 [place] [address] Thiago Bean MD [address] [place] [address] laurita@[facility] 10/18/2025 7:05 AM EDT Hospital Encounter [facility] EKG 70 [place] [address] Guanakito Gallardo MD [address] [place] [address] [place] [address] [email or web address] Arrived documented as of this encounter Visit Diagnoses Not on filedocumented in this encounter Care Teams Oracle Iam Consultant Relationship Specialty Start Date End Date Grecia Bonilla MD [address] [place] [address] [place] [phone] PCP - General Internal Medicine 10/13/22 Indigo Du, [facility] 300 [place] [address] [email or web address] Title Searcher Oncology 07/27/22 Hermelinda Barajas MD [address] [place] [address] 1240 [place] [address] Pedro@[facility] Medical Oncology 11/29/22 Cindi Shell CNP [address] [place] [address] Fina@[facility] Gerontology 11/29/22 Carlos Alberto [place] MD, [place] [address] [place] [address] Department of Psychosocial Oncology and Palliative Care, [place] [phone] Jaelyn@[facility] Hospice and Palliative Care 04/05/24 Patria Luevano, BRIELLE [address] [place] [address] STEFANO@[facility] Primary Infusion Nurse 05/15/24 Jennie Ferreira, BRIELLE [address] [place] [address] [email or web address] Associate Infusion Nurse 10/02/24 documented as of this encounter Additional Source Comments The information contained in this document represents components of the legal health record. It is not the complete legal health record.[facility]
--- OUTSIDE RECORDS SUMMARY | 2024-11-20 11:56 | XMS_ITS ---
Author Organization [facility] Address [address] [place] [address] [place] [address] Phone Care Team Providers Care Hospital Administrative Assistant Name Role Phone Indigo Du [facility] Unavailable Grecia Bonilla MD Primary Care Provider Hermelinda Barajas MD Unavailable [phone] Cindi Shell MOHEL Unavailable Carlos Alberto King MD, [place] Unavailable Patria Luevano RN Unavailable TOBIAS [email or web address] Jennie Ferreira RN Unavailable ALISON@ [email or web address] Active Problems Patient Care Coordination No te Formatting of this note migh t be different from the original. 06/18/2022 Jesse Patrick gave verbal permission for staff to speak to his life partner, Ana Morton, at any time re diagnosis, treatment and prognosis. Jesse asked for a referral to [employer]. This agency supplies home health aides. Phone no. = [phone] ex. [phone] and Fax = [phone]. SCHEDULING - PLEASE CALL PATIENT TO SCHEDULE [...]
--- OUTSIDE RECORDS SUMMARY | 2024-11-20 11:57 | XMS_ITS | Encounter Summary ---
Author Organization [facility] Address [address] [place] [address] Phone Care Team Providers Care Composing Room Machinist Name Role Phone Indigo Du RELEASE OF INFORMATION SPECIALIST Unavailable [phone] Grecia Bonilla MD Primary Care Provider Hermelinda Barajas MD Unavailable [phone] Cindi Shell SLOT MANAGER Unavailable Carlos Alberto King MD, [place] Unavailable Patria Luevano RN Unavailable TOBIAS [email or web address] Jennie Ferreira RN Unavailable ALISON@ [email or web address] Encounter Details Date Type Department Care Team (Late st Contact Info) Description 10/18/2024 Procedure Pass [facility] Electrophysiology Lab [address] [place] [address] Social History Tobacco Use Types Packs/Day Years [...] st Contact Info) Description 10/18/2024 Procedure Pass [facility] and Womens Radiology 70 [place] [address] 10/23/2024 Procedure Pass [facility] EKG 70 [place] [address] 10/23/2024 Procedure Pass [facility] EKG 70 [place] [address] 11/13/2024 Procedure Pass [address] [address] 11/13/2024 Procedure Pass [address] [address] 11/22/2024 1:00 PM EDT Telemedicine [facility] Endocrine, Diabetes, and Hypertension [address] [address] Svetlana Lucero, PharmD 75 [place] [address] [email or web address] [facility] 11/26/2024 1:00 PM EDT Social Work Social Work Department, [facility] 300 [facility] 4th [place] [address] Hermelinda Barajas MD 450 [facility] [address] [place] [address] Pedro@[facility] Indigo Du, [facility] 300 [place] [address] christina@[facility] 12/04/2024 7:30 AM EDT Blood Draw Laboratory Services, [address], 2nd Floor [place], [place] Hermelinda Barajas MD [address] [place] [address] Pedro@[facility] 12/04/2024 8:30 AM EDT Office Visit [facility] Center for Thoracic Oncology, [address], 9th [place] [address] Cindi Shell SLOT MANAGER [address] [place] [address] Benedict east@[facility] Hermelinda Barajas MD [address] [place] [address] Pedro@[facility] 12/04/2024 9:30 AM EDT Infusion Infusion Therapy Services [facility] 9, [facility] 450 [facility], 9th [place] [address] Cindi Shell SLOT MANAGER [address] [place] [address] Benedict east@[facility] Patria Luevano, BRIELLE [address] [place] [address] STEFANO@[facility] 12/25/2024 6:30 AM EDT Blood Draw Laboratory Services, [address], 2nd [place] [address] Cindi Shell SLOT MANAGER 450 [place] [address] Benedict east@[facility] 12/25/2024 7:30 AM EDT Office Visit [facility] for Thoracic Oncology, [address], 9th [place] [address] Cindi Shell SLOT MANAGER [address] [place] [address] Benedict east@[facility] 12/25/2024 8:30 AM EDT Infusion Infusion Therapy Services [place] 9, [address], 9th [place] [address] Cindi Shell SLOT MANAGER [address] [place] [address] Benedict east@[facility] 01/11/2025 11:45 AM EST Appointment [address] [address] Hermelinda Barajas MD [address] [place] [address] 1240 [place] [address] Pedro@[facility] 01/15/2025 7:10 AM EST Blood Draw Laboratory Services, [facility] 450 [facility], 2nd [place] [address] Cindi Shell, SLOT MANAGER 450 [place] [address] Benedict east@[facility] 01/15/2025 8:00 AM EST Office Visit [facility] Center for Thoracic Oncology, [facility] 450 [facility], 9th [place] [address] Hermelinda Barajas MD 450 [facility] 1240 [place] [address] Pedro@[facility] 01/15/2025 9:00 AM EST Infusion Infusion Therapy Services [place] 9, [facility] 450 [facility], 9th [place] [address] Cindi Shell SLOT MANAGER 450 [place] [address] Benedict east@[facility] 01/18/2025 7:35 AM EST Hospital Encounter [facility] EKG 70 [place] [address] Guanakito Gallardo MD 75 [facility] [place] [address] Arrived 01/18/2025 8:30 AM EST Appointment [facility] Women's Radiology 70 [place] [address] Odalis Jimenez PA-C 70 [facility] 5th [place] [address] vinny@[facility] 02/01/2025 8:40 AM EST Office Visit [facility] Otolaryngology 45 [facility] ASB2-2 [place] [address] Demetrio Armstrong MD 45 [place] [phone] mak@[facility] 02/25/2025 9:30 AM EST Telemedicine [facility] Cardiovascular Clinic 70 [place] [address] Guanakito Gallardo MD [address] [place] [address] [email or web address] 07/04/2025 10:00 AM EDT Telemedicine [facility] Cardiovascular Clinic [address] [place] [address] Thiago Bean MD [address] [place] [address] laurita@[facility] 10/18/2025 7:05 AM EDT Hospital Encounter [facility] EKG 70 [place] [address] Guanakito Gallardo MD [address] [place] [address] [place] [address] [email or web address] Arrived documented as of this encounter Visit Diagnoses Not on filedocumented in this encounter Care Teams Composing Room Machinist Relationship Specialty Start Date End Date Grecia Bonilla MD [address] [place] [address] [place] [address] PCP - General Internal Medicine 10/13/22 Indigo Du, [facility] 300 [place] [address] [email or web address] [place] Supervisor Oncology 07/27/22 Hermelinda Barajas MD [address] [place] [address] 1240 [place] [address] Pedro@[facility] Medical Oncology 11/29/22 Cindi Shell CNP [address] [place] [address] Fina@[email or web address] Gerontology 11/29/22 Carlos Alberto King MD, [place] [address] [place] [address] Department of Psychosocial Oncology and Palliative Care, [place] [phone] Jaelyn@[facility] Hospice and Palliative Care 04/05/24 Patria Luevano, BRIELLE [address] [place] [address] STEFANO@[facility] Primary Infusion Nurse 05/15/24 Jennie Ferreira, BRIELLE [address] [place] [address] ALISON@[facility] Associate Infusion Nurse 10/02/24 documented as of this encounter Additional Source Comments The information contained in this document represents components of the legal health record. It is not the complete legal health record.[facility]
--- OUTSIDE RECORDS SUMMARY | 2024-11-20 11:57 | XMS_ITS | Encounter Summary ---
Author Organization [facility] Address [address] [place] [address] Phone Care Team Providers Care Bouffant Curtain Machine Tender Name Role Phone Indigo Du [facility] Unavailable [phone] Grecia Bonilla MD Primary Care Provider Hermelinda Barajas MD Unavailable [phone] Cindi Shell PROFESSIONAL SHOPPER Unavailable Carlos Alberto King MD, [place] Unavailable [phone] Patria Luevano RN Unavailable TOBIAS HYATT@[email or web address] Jennie Ferreira RN Unavailable ALISON@ [facility] Encounter Details Date Type Department Care Team (Late st Contact Info) Description 09/24/2024 Procedure Pass [facility] Endoscopy Department [address] [place] [address] Social History Tobacco Use Types Packs/Day Years [...] st Contact Info) Description 10/18/2024 Procedure Pass [facility] and Women[facility] Radiology 70 [place] [address] 10/23/2024 Procedure Pass [facility] EKG 70 [place] [address] 10/23/2024 Procedure Pass [facility] EKG 70 [place] [address] 11/13/2024 Procedure Pass [address] [address] 11/13/2024 Procedure Pass [address] [address] 11/22/2024 1:00 PM EDT Telemedicine [facility] Endocrine, Diabetes, and Hypertension [address] [address] Svetlana Lucero, PharmD 75 [place] [address] [email or web address] [facility] 11/26/2024 1:00 PM EDT Social Work Social Work Department, [facility] 300 [facility] 4th [place] [address] Hermelinda Barajas MD 450 [facility] [address] [place] [address] Pedro@[facility] Indigo Du, [facility] 300 [place] [address] christina@[facility] 12/04/2024 7:30 AM EDT Blood Draw Laboratory Services, [address], 2nd [place], [place] Hermelinda Barajas MD [address] [place] [address] Pedro@[facility] 12/04/2024 8:30 AM EDT Office Visit [facility] Center for Thoracic Oncology, [address], 9th [place] [address] Cindi Shell, PROFESSIONAL SHOPPER [address] [place] [address] Benedict east@[facility] Hermelinda Barajas MD [address] [address] Pedro@[facility] 12/04/2024 9:30 AM EDT Infusion Infusion Therapy Services [place] 9, [facility] [address] [facility], 9th [place] [address] Cindi Shell, PROFESSIONAL SHOPPER [address] [place] [address] Benedict east@[facility] Patria Luevano, BRIELLE [address] [place] [address] STEFANO@[facility] 12/25/2024 6:30 AM EDT Blood Draw Laboratory Services, [address], 2nd [place] [address] Cindi Shell PROFESSIONAL SHOPPER [address] [place] [address] Benedict east@[facility] 12/25/2024 7:30 AM EDT Office Visit [facility] for Thoracic Oncology, [address], 9th [place] [address] Cindi Shell PROFESSIONAL SHOPPER [address] [place] [address] Benedict east@[facility] 12/25/2024 8:30 AM EDT Infusion Infusion Therapy Services [place] 9, [address], 9th [place] [address] Cindi Shell PROFESSIONAL SHOPPER [address] [place] [address] Benedict east@[facility] 01/11/2025 11:45 AM EST Appointment [facility], [address] [address] Hermelinda Barajas MD 450 [facility] 1240 [place] [address] Pedro@[facility] 01/15/2025 7:10 AM EST Blood Draw Laboratory Services, [facility] [address] [facility], 2nd [place] [address] Cindi Shell CNP 450 [place] [address] Benedict east@[facility] 01/15/2025 8:00 AM EST Office Visit [facility] Center for Thoracic Oncology, [facility] [address] [facility], 9th [place] [address] Hermelinda Barajas MD [address] [place] [address] 1240 [place] [address] Pedro@[facility] 01/15/2025 9:00 AM EST Infusion Infusion Therapy Services [place] 9, [facility] [address] [facility], 9th [place] [address] Cindi Shell CNP 450 [place] [address] Benedict east@[facility] 01/18/2025 7:35 AM EST Hospital Encounter [facility] EKG 70 [place] [address] Guanakito Gallardo MD [address] [place] [address] [place] [address] Arrived 01/18/2025 8:30 AM EST Appointment [facility] Women's Radiology 70 [place] [address] Odalis Jimenez PA-C 70 [facility] 5th [place] [address] [email or web address] 02/01/2025 8:40 AM EST Office Visit [facility] Otolaryngology 45 [facility] ASB2-2 [place] [address] Demetrio Armstrong MD 45 [place] [phone] mak@[facility] 02/25/2025 9:30 AM EST Telemedicine [facility] Cardiovascular Clinic 70 [place] [address] Guanakito Gallardo MD [address] [place] [address] 07/04/2025 10:00 AM EDT Telemedicine [facility] Cardiovascular Clinic [address] [place] [address] Thiago Bean MD [address] [place] [address] laurita@[facility] 10/18/2025 7:05 AM EDT Hospital Encounter [facility] EKG 70 [place] [address] Guanakito Gallardo MD [address] [place] [address] [place] [address] [email or web address] Arrived documented as of this encounter Visit Diagnoses Not on filedocumented in this encounter Care Teams Bouffant Curtain Machine Tender Relationship Specialty Start Date End Date Grecia Bonlila MD [address] [place] [address] [place] [address] PCP - General Internal Medicine 10/13/22 Indigo Du, [facility] 300 [place] [address] [email or web address] Mapping Technician Oncology 07/27/22 Hermelinda Barajas MD [address] [place] [address] 1240 [place] [address] Pedro@[facility] Medical Oncology 11/29/22 Cindi Shell CNP [address] [place] [address] Fina@[facility] Gerontology 11/29/22 Carlos Alberto King MD, [place] [address] [place] [address] Department of Psychosocial Oncology and Palliative Care, [place] [phone] Jaelyn@[facility] Hospice and Palliative Care 04/05/24 Ptaria Luevano, BRIELLE [address] [place] [address] STEFANO@[facility] Primary Infusion Nurse 05/15/24 Jennie Ferreira, BRIELLE [address] [place] [address] ALISON@[facility] Associate Infusion Nurse 10/02/24 documented as of this encounter Additional Source Comments The information contained in this document represents components of the legal health record. It is not the complete legal health record.[facility]
--- OUTSIDE RECORDS SUMMARY | 2024-11-20 11:57 | XMS_ITS | Encounter Summary ---
Author Organization [facility] Address [address] [place] [address] Phone Care Team Providers Care Business Project Manager Name Role Phone Indigo DuSW Unavailable [phone] Grecia Bonilla MD Primary Care Provider Hermelinda Barajas MD Unavailable [phone] Cindi Shell DIABETES EDUCATION COORDINATOR Unavailable [phone] Zuri Ha RN Unavailable Sandra Ruiz@[facility] Carlos Alberto King MD, [place] Unavailable Patria Luevano RN Unavailable TOBIAS HYATT@[facility] Jennie Ferreira RN Unavailable ALISON@ [facility] Encounter Details Date Type Department Care Team (Late st Contact Info) Description 09/06/2023 Procedure Pass [facility], [facility] [place], [place] 450 [facility], Floor L1 [place] [address] Social History Tobacco Use Types Packs/Day Years [...] st Contact Info) Description 10/18/2024 Procedure Pass [facility] [address] [place] [address] 10/23/2024 Procedure Pass [facility] EKG [address] [place] [address] 10/23/2024 Procedure Pass [facility] EKG 70 [place] [address] 11/13/2024 Procedure Pass [address] [address] 11/13/2024 Procedure Pass [address] [address] 11/22/2024 1:00 PM EDT Telemedicine [facility] Endocrine, Diabetes, and Hypertension [address] [address] Svetlana Lucero, PharmD 75 [place] [address] [email or web address] .[email or web address] 11/26/2024 1:00 PM EDT Social Work Social Work Department, [facility] [place] at [address] 4th [place] [address] Hermelinda Barajas MD 450 [facility] [address] [place] [address] Pedro@[email or web address] Indigo Du, [facility] 300 [place] [address] christina@[email or web address] 12/04/2024 7:30 AM EDT Blood Draw Laboratory Services, [facility] 450 [facility], 2nd Floor [place], [place] Hermelinda Barajas MD 450 [facility] 1240 [place] [address] Pedro@[facility] 12/04/2024 8:30 AM EDT Office Visit [facility], [facility] 450 [facility], 9th [place] [address] Cindi Shell CNP 450 [place] [address] Benedict east@[facility] Hermelinda Barajas MD 450 [facility] 1240 [place] [address] Pedro@[facility] 12/04/2024 9:30 AM EDT Infusion Infusion Therapy Services Yawkey 9, [facility] 450 [facility], 9th [place] [address] Cindi Shell DIABETES EDUCATION COORDINATOR [address] [place] [address] Benedict east@[facility] Patria Luevano, RN 450 [place] [address] STEFANO@[facility] 12/25/2024 6:30 AM EDT Blood Draw Laboratory Services, [address], 2nd [place] [address] Cindi Shell DIABETES EDUCATION COORDINATOR 450 [place] [address] Benedict east@[facility] 12/25/2024 7:30 AM EDT Office Visit [facility], [address], 9th [place] [address] Cindi Shell DIABETES EDUCATION COORDINATOR 450 [place] [address] Benedict east@[facility] 12/25/2024 8:30 AM EDT Infusion Infusion Therapy Services Yawkey 9, [address], 9th [place] [address] Cindi Shell DIABETES EDUCATION COORDINATOR [address] [place] [address] Benedict east@[facility] 01/11/2025 11:45 AM EST Appointment [facility], [address] [address] Hermelinda Barajas MD [address] [place] [address] 1240 [place] [address] Pedro@[facility] 01/15/2025 7:10 AM EST Blood Draw Laboratory Services, [address], 2nd [place] [address] Cindi Shell DIABETES EDUCATION COORDINATOR 450 [place] [address] Benedict east@[facility] 01/15/2025 8:00 AM EST Office Visit [facility], [facility] [address] [facility], 9th [place] [address] Hermelinda Barajas MD [address] [place] [address] 1240 [place] [address] Pedro@[facility] 01/15/2025 9:00 AM EST Infusion Infusion Therapy Services [address] 450 [facility], 9th [place] [address] Cindi Shell CNP 450 [place] [address] Benedict east@[facility] 01/18/2025 7:35 AM EST Hospital Encounter [facility] EKG 70 [place] [address] Guanakito Gallardo MD 75 [facility] [place] [address] [facility] 01/18/2025 8:30 AM EST Appointment [facility] 70 [place] [address] Odalis Jimenez PA-C 70 [facility] 5th [place] [address] [email or web address] 02/01/2025 8:40 AM EST Office Visit [facility] Otolaryngology 45 [facility] ASB2-2 [place] [address] Demetrio Armstrong MD 45 [place] [phone] [email or web address] 02/25/2025 9:[address] [facility] Cardiovascular Clinic 70 [place] [address] Guanakito Gallardo MD [address] [place] [address] 07/04/2025 10:[address] [facility] Clinic [address] [place] [address] Thiago Bean MD [address] [place] [address] laurita@[facility] 10/18/2025 7:05 AM EDT Hospital Encounter [facility] EKG 70 [place] [address] Guanakito Gallardo MD [address] [place] [address] Arrived documented as of this encounter Visit Diagnoses Not on filedocumented in this encounter Additional Health Concerns Infection Onset Date Last Indicated Resolved Time CoV-Risk 07/17/2024 07/17/2024 07/28/2024 1:21 AM EDT documented as of this encounter Care Teams Business Project Manager Relationship Specialty Start Date End Date Grecia Bonilla MD [address] [place] [address] Dr Stern [address] [place] [phone] PCP - General Internal Medicine 10/13/22 Indigo Du, [facility] 300 [place] [address] [email or web address] Web Production Artist Oncology 07/27/22 Hermelinda Barajas MD [facility] Wendy Shen 1240 [place] [address] Pedro@[facility] Medical Oncology 11/29/22 Cindi Shell CNP [address] [place] [address] Fina@[facility] Gerontology 11/29/22 Zuri aH, BRIELLE [address] [place] [address] Milton@[facility] Primary Infusion Nurse 01/10/24 05/14/24 Carlos Alberto King MD, [place] [address] [place] [address] Department of Psychosocial Oncology and Palliative Care, [place] [phone] Jaelyn@[facility] Hospice and Palliative Care 04/05/24 Patria Luevano, BRIELLE [address] [place] [address] STEFANO@[facility] Primary Infusion Nurse 05/15/24 Jennie Ferreira, BRIELLE [address] [place] [address] ALISON@[facility] 234 [facility] AT [facility] Associate Infusion Nurse 10/02/24 documented as of this encounter Additional Source Comments The information contained in this document represents components of the legal health record. It is not the complete legal health record.[facility]
--- OUTSIDE RECORDS SUMMARY | 2024-11-20 11:57 | XMS_ITS | Clinical Summary ---
Author Organization [facility] Address [address] [place] [address] Care Team Providers Care Grain Picker Name Role Phone Grecia Bonilla MD Primary [...] Pneumococcal Vaccine: 50+ Ye ars (1 of 1 - PCV) 2015 Zoster Vaccines (1 of 2) 2015 Cholesterol [...] Recently Relevant to Health Maintenance Care Teams Grain Picker Relationship Specialty Start Date End Date Grecia Bonilla MD [address] [place] [address] [place] [address] PCP - General 05/06/23
--- OUTSIDE RECORDS SUMMARY | 2024-11-20 11:57 | XMS_ITS | Encounter Summary ---
Author Organization [facility] Address [address] [place] [address] Phone Care Team Providers Care Workers' Compensation Hearings Officer Name Role Phone Indigo DuSW Unavailable Grecia Bonilla MD Primary Care Provider Hermelinda Barajas MD Unavailable [phone] Cindi Shell AT RISK SPECIALIST Unavailable Zuri Ha RN Unavailable Sandra Ruiz@[email or web address] Carlos Alberto King MD, [place] Unavailable [phone] Patria Luevano RN Unavailable TOBIAS HYATT@[email or web address] Jennie Ferreira RN Unavailable ALISON@ [facility] Encounter Details Date Type Department Care Team (Late st Contact Info) Description 04/24/2024 Procedure Pass [facility], [address] [address] Social History Tobacco Use Types Packs/Day Years [...] Contact Info) Description 10/18/2024 Procedure Pass [facility] 70 [place] [address] 10/23/2024 Procedure Pass [facility] EKG 70 [place] [address] 10/23/2024 Procedure Pass [facility] EKG 70 [place] [address] 11/13/2024 Procedure Pass [address] [address] 11/13/2024 Procedure Pass [address] [address] 11/22/2024 1:00 PM EDT Telemedicine [facility] Endocrine, Diabetes, and Hypertension 221 [facility] 2nd [place] [address] Svetlana Lucero, PharmD 75 [place] [address] [email or web address] 11/26/2024 1:00 PM EDT Social Work Social Work Department, [facility] 300 [facility] 4th [place] [address] Hermelinda Barajas MD 450 [facility] 1240 [place] [address] Pedro@[facility] Indigo Du, [facility] 300 [place] [address] christina@[facility] 12/04/2024 7:30 AM EDT Blood Draw Laboratory Services, [address], 2nd [place] [address] Hermelinda Barajas MD 450 [facility] 1240 [place] [address] Pedro@[facility] 12/04/2024 8:30 AM EDT Office Visit [facility] On[facility], [address], 9th [place] [address] Cindi Shell AT RISK SPECIALIST [address] [place] [address] Benedict east@[facility] Hermelinda Barajas MD 450 [facility] 1240 [place] [address] Pedro@[facility] 12/04/2024 9:30 AM EDT Infusion Infusion Therapy Services Yawkey 9, [facility] 450 [facility], 9th [place] [address] Cindi Shell AT RISK SPECIALIST [address] [place] [address] Benedict east@[facility] Patria Luevano, BRIELLE [address] [place] [address] STEFANO@[facility] 12/25/2024 6:30 AM EDT Blood Draw Laboratory Services, [address], 2nd [place] [address] Cindi Shell CNP [address] [place] [address] Benedict east@[facility] 12/25/2024 7:30 AM EDT Office Visit [facility], [address], 9th [place] [address] Cindi Shell AT RISK SPECIALIST [address] [place] [address] Benedict east@[facility] 12/25/2024 8:30 AM EDT Infusion Infusion Therapy Services Sowmya 9, [address], 9th [place] [address] Cindi Shell AT RISK SPECIALIST [address] [place] [address] Benedict east@[facility] 01/11/2025 11:45 AM EST Appointment [facility], [address] [address] Hremelinda Barajas MD [address] [place] [address] 1240 [place] [address] Pedro@[facility] 01/15/2025 7:10 AM EST Blood Draw Laboratory Services, [facility] 450 [facility], 2nd [place] [address] Cindi Shell CNP 450 [place] [address] Benedict east@[facility] 01/15/2025 8:00 AM EST Office Visit [facility], [address], 9th [place] [address] Hermelinda Barajas MD [address] [place] [address] 1240 [place] [address] Pedro@[facility] 01/15/2025 9:00 AM EST Infusion Infusion Therapy Services Yawkey 9, [address], 9th [place] [address] Cindi Shell CNP 450 [place] [address] Benedict east@[facility] 01/18/2025 7:35 AM EST Hospital Encounter [facility] EKG 70 [place] [address] Guanakito Gallardo MD [address] [place] [address] Card[place] [address] Arrived 01/18/2025 8:30 AM EST Appointment [facility] 70 [place] [address] Odalis Jimenez PA-C 70 [facility] 5th [place] [address] [email or web address] 02/01/2025 8:40 AM EST Office Visit [facility] Otolaryngology 45 [facility] ASB2-2 [place] [address] Demetrio Armstrong MD 45 [place] [phone] [email or web address] 02/25/2025 9:30 AM EST Telemedicine [facility] Cardiovascular Clinic [address] [place] [address] Guanakito Gallardo MD [address] [place] [address] [email or web address] 07/04/2025 10:00 AM EDT Telemedicine [facility] Cardiovascular Clinic [address] [place] [address] Thiago Bean MD [address] [place] [address] [email or web address]@[facility] 10/18/2025 7:05 AM EDT Hospital Encounter [facility] EKG 70 [place] [address] Guanakito Gallardo MD [address] [place] [address] [place] [address] Arrived documented as of this encounter Visit Diagnoses Not on filedocumented in this encounter Additional Health Concerns Infection Onset Date Last Indicated Resolved Time CoV-Risk 07/17/2024 07/17/2024 07/28/2024 1:21 AM EDT documented as of this encounter Care Teams Workers' Compensation Hearings Officer Relationship Specialty Start Date End Date Grecia Bonilla MD [address] [place] [address] [place] [phone] PCP - General Internal Medicine 10/13/22 Indigo Du, [facility] 300 [place] [address] [email or web address] Oncology 07/27/22 Hermelinda Barajas MD [address] [place] [address] Pedro@[facility] Medical Oncology 11/29/22 Cindi Shell CNP [address] [place] [address] Fina@[facility] EMERGENCY [facility]PART[facility] Gerontology 11/29/22 Zuri Ha RN [address] [place] [address] Milton@[facility] Primary Infusion Nurse 01/10/24 05/14/24 Carlos Alberto King MD, [place] [address] [place] [address] Department of Psychosocial Oncology and Palliative [place], [place] [address] Jaelyn@[facility] Hospice and Palliative Care 04/05/24 Patria Luevano, BRIELLE [address] [place] [address] [email or web address]@[facility] Primary Infusion Nurse 05/15/24 Jennie Ferreira RN [address] [place] [address] ALISON@[facility] Associate Infusion Nurse 10/02/24 documented as of this encounter Additional Source Comments The information contained in this document represents components of the legal health record. It is not the complete legal health record.[facility]
--- OUTSIDE RECORDS SUMMARY | 2024-11-20 11:57 | XMS_ITS | Encounter Summary ---
Author Organization [facility] Address [address] [place] [address] Phone Care Team Providers Care Family Coach Name Role Phone Indigo DuSW Unavailable Grecia Bonilla MD Primary Care Provider Hermelinda Barajas MD Unavailable [phone] Cindi Shell COPPERSMITH HELPER Unavailable [phone] Zuri Ha RN Unavailable Sandra Ruiz@[email or web address] Carlos Alberto King MD, [place] Unavailable Patria Luevano RN Unavailable TOBIAS HYATT@[email or web address] Jennie Ferreira RN Unavailable ALISON@ [facility] Encounter Details Date Type Department Care Team (Late st Contact Info) Description 01/10/2024 Procedure Pass [facility] Scan - [facility] 30 [place] [address] Social History Tobacco Use Types Packs/Day Years [...] st Contact Info) Description 10/18/2024 Procedure Pass [facility] 70 [place] [address] 10/23/2024 Procedure Pass [facility] EKG 70 [place] [address] 10/23/2024 Procedure Pass [facility] EKG 70 [place] [address] 11/13/2024 Procedure Pass [address] [address] 11/13/2024 Procedure Pass [address] [address] 11/22/2024 1:00 PM EDT Telemedicine [facility] Endocrine, Diabetes, and Hypertension [address] [address] Svetlana Lucero, PharmD 75 [place] [address] [email or web address] 11/26/2024 1:00 PM EDT Social Work Social Work Department, [facility] [place] [facility] [place] [address] [address] Hermelinda Barajas MD [address] [place] [address] Pedro@[email or web address] Indigo Du, [facility] 300 [place] [address] [email or web address] 12/04/2024 7:30 AM EDT Blood Draw Laboratory Services, [address], 2nd [place], [place] Hermelinda Barajas MD [address] [place] [address] 1240 [place] [address] Pedro@[facility] 12/04/2024 8:30 AM EDT Office Visit [facility] for [facility], [address], 9th [place] [address] Cindi Shell COPPERSMITH HELPER [address] [place] [address] Benedict east@[facility] Hermelinda Barajas MD [address] [place] [address] 1240 [place] [address] Pedro@[facility] 12/04/2024 9:30 AM EDT Infusion Infusion Therapy Services Yawkey 9, [address], 9th [place] [address] Cindi Shell COPPERSMITH HELPER [address] [place] [address] Benedict east@[facility] Patria Luevano, BRIELLE [address] [place] [address] STEFANO@[facility] 12/25/2024 6:30 AM EDT Blood Draw Laboratory Services, [address], 2nd [place] [address] Cindi Shell CNP 450 [place] [address] Benedict east@[facility] 12/25/2024 7:30 AM EDT Office Visit [facility] for Thoracic Oncology, [address], 9th [place] [address] Cindi Shell CNP 450 [place] [address] Benedict east@[facility] 12/25/2024 8:30 AM EDT Infusion Infusion Therapy Services [place] [address], [address], 9th [place] [address] Cindi Shell CNP 450 [place] [address] Benedict east@[facility] 01/11/2025 11:45 AM EST Appointment [facility], [address] [address] Hermelinda Barajas MD [address] [place] [address] 1240 [place] [address] Pedro@[email or web address] 01/15/2025 7:10 AM EST Blood Draw Laboratory Services, [address], 2nd [place] [address] Cindi Shell COPPERSMITH HELPER 450 [place] [address] Benedict east@[facility] 01/15/2025 8:00 AM EST Office Visit [facility] Center for Thoracic Oncology, [facility] 450 [facility], 9th [place] [address] Hermelinda Barajas MD 450 [facility] 1240 [place] [address] Pedro@[facility] 01/15/2025 9:00 AM EST Infusion Infusion Therapy Services [facility] 450 [facility], 9th [place] [address] Cindi Shell CNP 450 [place] [address] Benedict east@[facility] 01/18/2025 7:35 AM EST Hospital Encounter [facility] EKG 70 [place] [address] Guanakito Gallardo MD 75 [facility] [place] [address] [email or web address] [facility] 01/18/2025 8:30 AM EST Appointment [facility] 70 [place] [address] Odalis Jimenez PA-C 70 [facility] 5th [place] [address] [email or web address] 02/01/2025 8:40 AM EST Office Visit [facility] Otolaryngology 45 [facility] ASB2-2 [place] [address] Demetrio Armstrong MD 45 [place] [phone] [email or web address] 02/25/2025 9:30 AM EST Telemedicine [facility] Cardiovascular Clinic [address] [place] [address] Guanakito Gallardo MD [address] [place] [address] 07/04/2025 10:00 AM EDT Telemedicine [facility] Cardiovascular Clinic [address] [place] [address] Thiago Bean MD [address] [place] [address] laurita@[facility] 10/18/2025 7:05 AM EDT Hospital Encounter [facility] EKG [address] [place] [address] Guanakito Gallardo MD [address] [place] [address] Arrived documented as of this encounter Visit Diagnoses Not on filedocumented in this encounter Additional Health Concerns Infection Onset Date Last Indicated Resolved Time CoV-Risk 07/17/2024 07/17/2024 07/28/2024 1:21 AM EDT documented as of this encounter Care Teams Family Coach Relationship Specialty Start Date End Date Grecia Bonilla MD [address] [place] [address] [place] [address] PCP - General Internal Medicine 10/13/22 Indigo Du, [facility] 300 [place] [address] [email or web address] Oncology 07/27/22 Hermelinda Barajas MD [address] [place] [address] Mariah Shen 1240 [place] [address] [email or web address]@[facility] Medical Oncology 11/29/22 Cindi Shell CNP [address] [place] [address] Fina@[facility] Gerontology 11/29/22 Zuri Ha RN [address] [place] [address] Milton@[facility] Primary Infusion Nurse 01/10/24 05/14/24 Carlos Alberto King MD, [place] [address] [place] [address] Department of Psychosocial Oncology and Palliative Care, [place] [address] Jaelyn@[facility] Hospice and Palliative Care 04/05/24 Patria Luevano, BRIELLE [address] [place] [address] STEFANO@[facility] Primary Infusion Nurse 05/15/24 Jennie Ferreira RN [address] [place] [address] ALISON@[facility] Associate Infusion Nurse 10/02/24 documented as of this encounter Additional Source Comments The information contained in this document represents components of the legal health record. It is not the complete legal health record.[facility]
--- OUTSIDE RECORDS SUMMARY | 2024-11-20 11:57 | XMS_ITS | Clinical Summary ---
Author Organization [facility] Address [address] [address] Care Team Providers Care Rewinder Name Role Phone Unavailable Primary Care Provider [...] Exam 06/04/2022 Influenza Vaccine (#1) 2024 Insurance [facility] Medicaid [facility] Medicaid
--- OUTSIDE RECORDS SUMMARY | 2024-11-20 11:57 | XMS_ITS | Encounter Summary ---
Author Organization [facility] Address [address] [place] [address] Phone Care Team Providers Care Boring Machine Set Up Operator Name Role Phone Indigo DuSW Unavailable Grecia Bonilla MD Primary Care Provider Hermelinda Barajas MD Unavailable [phone] Cindi Shell BAND SHOVER Unavailable Zuri Ha RN Unavailable Sandra Ruiz@[facility].[place] Carlos Alberto King MD, [place] Unavailable Patria Luevano RN Unavailable TOBIAS HYATT@[facility].[place] Jennie Ferreira RN Unavailable ALISON@ [facility].[place] Encounter Details Date Type Department Care Team (Late st Contact Info) Description 10/06/2023 Procedure Pass [facility] Endoscopy Department [address] [place] [address] Social History Tobacco Use Types Packs/Day Years [...] 10/18/2024 Procedure Pass [facility] and Women's Radiology [address] [place] [address] 10/23/2024 Procedure Pass [facility] EKG 70 [place] [address] 10/23/2024 Procedure Pass [facility] EKG 70 [place] [address] 11/13/2024 Procedure Pass [address] [address] 11/13/2024 Procedure Pass [address] [address] 11/22/2024 1:00 PM EDT Telemedicine [facility] Endocrine, Diabetes, and Hypertension [address] [address] Svetlana Lucero, PharmD 75 [place] [address] [email or web address] 11/26/2024 1:00 PM EDT Social Work Social Work Department, [facility] [place] [facility] [place] [address] [address] Hermelinda Barajas MD [address] [place] [address] Pedro@[facility] Indigo Du, [facility] 300 [place] [address] [email or web address] 12/04/2024 7:30 AM EDT Blood Draw Laboratory Services, [address], 2nd [place], [place] Hermelinda Barajas MD [address] [place] [address] [place] [address] Pedro@[facility] 12/04/2024 8:30 AM EDT Office Visit [facility], [address], 9th [place], [place] [phone] Cindi Shell CNP [address] [place] [address] Benedict east@[facility] Hermelinda Barajas MD [address] [place] [address] 1240 [place] [address] Pedro@[facility] 12/04/2024 9:30 AM EDT Infusion Infusion Therapy Services [facility] 9, [address], 9th [place] [address] Cindi Shell CNP [address] [place] [address] Benedict east@[facility] Patria Luevano, BRIELLE [address] [place] [address] [email or web address]@[facility] 12/25/2024 6:30 AM EDT Blood Draw Laboratory Services, [address], 2nd Floor [place], [place] Cindi Shell CNP [facility] [place] [address] Benedict east@[facility] 12/25/2024 7:30 AM EDT Office Visit [facility] for [facility], [address], 9th [place] [address] Cindi Shell BAND SHOVER 450 [place] [address] Benedict east@[facility] 12/25/2024 8:30 AM EDT Infusion Infusion Therapy Services [place] [address], [address], 9th [place] [address] Cindi Shell BAND SHOVER 450 [place] [address] Benedict east@[facility] 01/11/2025 11:45 AM EST Appointment [facility], [address] [address] Hermelinda Barajas MD [address] [place] [address] 1240 [place] [address] Pedro@[facility] 01/15/2025 7:10 AM EST Blood Draw Laboratory Services, [address], 2nd [place] [address] Cindi Shell, BAND SHOVER 450 [place] [address] Beneditc east@[facility] 01/15/2025 8:00 AM EST Office Visit [facility], [facility] [address], 9th [place] [address] Hermelinda Barajas MD 450 [facility] 1240 [place] [address] Pedro@[facility] 01/15/2025 9:00 AM EST Infusion Infusion Therapy Services [place] 9, [facility] [address], 9th [place] [address] Cindi Shell CNP 450 [place] [address] Benedict east@[facility] 01/18/2025 7:35 AM EST Hospital Encounter [facility] EKG 70 [place] [address] Guanakito Gallardo MD [address] [facility] [place] [address] [email or web address] [facility] 01/18/2025 8:30 AM EST Appointment [facility] Women's Radiology 70 [place] [address] Odalis Jimenez PA-C 70 [facility] 5th [place] [address] [email or web address] 02/01/2025 8:40 AM EST Office Visit [facility] Otolaryngology 45 [facility] ASB2-2 [place] [address] Demetrio Armstrong MD 45 [place] [phone] [email or web address] 02/25/2025 9:30 AM EST Telemedicine [facility] Cardiovascular Clinic 70 [place] [address] Guanakito Gallardo MD [address] [place] [address] [email or web address] 07/04/2025 10:00 AM EDT Telemedicine [facility] Cardiovascular Clinic 70 [place] [address] Thiago Bean MD [address] [place] [address] [email or web address] 10/18/2025 7:05 AM EDT Hospital Encounter [facility] EKG [address] [place] [address] Guanakito Gallardo MD [address] [place] [address] [email or web address] Arrived documented as of this encounter Visit Diagnoses Not on filedocumented in this encounter Additional Health Concerns Infection Onset Date Last Indicated Resolved Time CoV-Risk 07/17/2024 07/17/2024 07/28/2024 1:21 AM EDT documented as of this encounter Care Teams Boring Machine Set Up Operator Relationship Specialty Start Date End Date Grecia Bonilla MD [address] [place] [address] [place] [address] PCP - General Internal Medicine 10/13/22 Indigo Du, [facility] 300 [place] [address] [email or web address] Customer Service Dispatcher Oncology 07/27/22 Hermelinda Barajas MD 450 Wendy Shen 1240 [place] [address] Pedro@[facility] Medical Oncology 11/29/22 Cindi Shell CNP [address] [place] [address] Fina@[facility] Gerontology 11/29/22 Zuri Ha RN [address] [place] [address] Milton@[facility] Primary Infusion Nurse 01/10/24 05/14/24 Carlos Alberto King MD, [place] [address] [place] [address] Department of Psychosocial Oncology and Palliative Care, [place] [address] Jaelyn@[facility] Hospice and Palliative Care 04/05/24 Patria Luevano, BRIELLE [address] [place] [address] STEFANO@[facility] Primary Infusion Nurse 05/15/24 Jennie Ferreira RN [address] [place] [address] ALISON@[facility] Associate Infusion Nurse 10/02/24 documented as of this encounter Additional Source Comments The information contained in this document represents components of the legal health record. It is not the complete legal health record.[facility]
--- OUTSIDE RECORDS SUMMARY | 2024-11-20 11:57 | XMS_ITS | Encounter Summary ---
Author Organization [facility] Address [address] [place] [address] Phone Care Team Providers Care Surgical Scrub Technician Name Role Phone Indigo DuSW Unavailable [phone] Grecia Bonilla MD Primary Care Provider Hermelinda Barajas MD Unavailable [phone] Cindi Shell [facility] Unavailable Carlos Alberto King [place], [place] Unavailable Patria Luevano RN Unavailable TOBIAS [email or web address] Jennie Ferreira RN Unavailable ALISON@ [email or web address].[place] Encounter Details Date Type Department Care Team (Late st Contact Info) Description 09/25/2024 Procedure Pass [facility] 70 [place] [address] Social History Tobacco Use Types Packs/Day Years [...] st Contact Info) Description 10/18/2024 Procedure Pass [facility] and Women's Radiology 70 [place] [address] 10/23/2024 Procedure Pass [facility] EKG 70 [place] [address] 10/23/2024 Procedure Pass [facility] EKG 70 [place] [address] 11/13/2024 Procedure Pass [address] [address] 11/13/2024 Procedure Pass [address] [address] 11/22/2024 1:00 PM EDT Telemedicine [facility] Endocrine, Diabetes, and Hypertension [address] [address] Svetlana Lucero, PharmD 75 [place] [address] [email or web address] 11/26/2024 1:00 PM EDT Social Work Social Work Department, [facility] [place] 300 [facility] 4th [place] [address] Hermelinda Barajas MD 450 [facility] 1240 [place] [address] Pedro@[facility] Indigo Du, [facility] 300 [place] [address] [email or web address] 12/04/2024 7:30 AM EDT Blood Draw Laboratory Services, [address], 2nd [place] [address] Hermelinda Barajas MD 450 [facility] 1240 [place] [address] Pedro@[facility] 12/04/2024 8:30 AM EDT Office Visit [facility] Center for Thoracic Oncology, [address], 9th [place] [address] Cindi Shell TRANSPORTATION ANALYST [address] [place] [address] Benedict east@[facility] Hermelinda Barajas MD 450 [facility] 1240 [place] [address] Pedro@[facility] 12/04/2024 9:30 AM EDT Infusion Infusion Therapy Services [place] 9, [facility] 450 [facility], 9th [place] [address] Cindi Shell TRANSPORTATION ANALYST [address] [place] [address] [place] [address] Benedict east@[facility] Patria Luevano, BRIELLE 450 [place] [address] [email or web address]@[facility] 12/25/2024 6:30 AM EDT Blood Draw Laboratory Services, [address], 2nd [place] [address] Cindi Shell CNP [address] [place] [address] Benedict east@[facility] 12/25/2024 7:30 AM EDT Office Visit [facility] for Thoracic Oncology, [address], 9th [place] [address] Cindi Shell TRANSPORTATION ANALYST [address] [place] [address] Benedict east@[facility] 12/25/2024 8:30 AM EDT Infusion Infusion Therapy Services [place] 9, [address], 9th [place] [address] Cindi Shell TRANSPORTATION ANALYST [address] [place] [address] Benedict east@[facility] 01/11/2025 11:45 AM EST Appointment [facility], [facility] 30 [place] [address] Hermelinda Barajas MD [address] [place] [address] 1240 [place] [address] Pedro@[facility] 01/15/2025 7:10 AM EST Blood Draw Laboratory Services, [facility] 450 [facility], 2nd [place] [address] Cindi Shell CNP 450 [place] [address] Benedict east@[facility] 01/15/2025 8:00 AM EST Office Visit [facility] Center for Thoracic Oncology, [facility] 450 [facility], 9th [place] [address] Hermelinda Barajas MD [address] [place] [address] 1240 [place] [address] Pedro@[facility] 01/15/2025 9:00 AM EST Infusion Infusion Therapy Services [place] 9, [facility] 450 [facility], 9th [place] [address] Cindi Shell CNP 450 [place] [address] Benedict east@[facility] 01/18/2025 7:35 AM EST Hospital Encounter [facility] E[facility] 70 [place] [address] Guanakito Gallardo MD [address] [place] [address] [place] [address] Arrived 01/18/2025 8:30 AM EST Appointment [facility] 70 [place] [address] Odalis Jimenez PA-C 70 [facility] 5th [place] [address] [email or web address] 02/01/2025 8:40 AM EST Office Visit [facility] Otolaryngology 45 [facility] ASB2-2 [place] [address] Demetrio Armstrong MD 45 [place] [phone] [email or web address] 02/25/2025 9:30 AM EST Telemedicine [facility] Cardiovascular Clinic [address] [place] [address] Guanakito Gallardo MD [address] [place] [address] [email or web address] 07/04/2025 10:00 AM EDT Telemedicine [facility] Cardiovascular Clinic [address] [place] [address] Thiago Bean MD [address] [place] [address] [email or web address]@[facility] 10/18/2025 7:05 AM EDT Hospital Encounter [facility] EKG 70 [place] [address] Guanakito Gallardo MD [address] [place] [address] [place] [address] [email or web address] Arrived documented as of this encounter Visit Diagnoses Not on filedocumented in this encounter Care Teams Surgical Scrub Technician Relationship Specialty Start Date End Date Grecia Bonilla MD [address] [place] [address] [place] [address] PCP - General Internal Medicine 10/13/22 Indigo Du, [facility] 300 [place] [address] [email or web address] Heel Splitter Oncology 07/27/22 Hermelinda Barajas MD [address] [place] [address] 1240 [place] [address] Pedro@[facility] Medical Oncology 11/29/22 Cindi Shell CNP [address] [place] [address] Fina@[facility] Gerontology 11/29/22 Carlos Alberto King MD, [place] [address] [place] [address] Department of Psychosocial Oncology and Palliative Care, [place] [phone] Jaelyn@[facility] Hospice and Palliative Care 04/05/24 Patria Luevano, BRIELLE [address] [place] [address] STEFANO@[facility] Primary Infusion Nurse 05/15/24 Jennie Ferreira, BRIELLE [address] [place] [address] ALISON@[facility] Associate Infusion Nurse 10/02/24 documented as of this encounter Additional Source Comments The information contained in this document represents components of the legal health record. It is not the complete legal health record.[facility]
--- OUTSIDE RECORDS SUMMARY | 2024-11-20 11:57 | XMS_ITS | Encounter Summary ---
Author Organization [facility] Address [address] [place] [address] Phone Care Team Providers Care Picker Name Role Phone Indigo DuSW Unavailable [phone] Grecia Bonilla MD Primary Care Provider Hermelinda Barajas MD Unavailable [phone] Cindi Shell NURSING CARE ATTENDANT Unavailable Zuri Ha RN Unavailable Sandra Ruiz@[facility].[place] Carlos Alberto King MD, [place] Unavailable [phone] Patria Luevano RN Unavailable TOBIAS HYATT@[facility].[place] Jennie Ferreira RN Unavailable ALISON@ [facility].[place] Encounter Details Date Type Department Care Team (Late st Contact Info) Description 03/22/2023 Procedure Pass [facility] Echocardiography 70 [place] [address] Social History Tobacco Use Types Packs/Day Years [...] st Contact Info) Description 10/18/2024 Procedure Pass [facility] and Women's Radiology 70 [place] [address] 10/23/2024 Procedure Pass [facility] EKG 70 [place] [address] 10/23/2024 Procedure Pass [facility] EKG 70 [place] [address] 11/13/2024 Procedure Pass [address] [address] 11/13/2024 Procedure Pass [address] [address] 11/22/2024 1:00 PM EDT Telemedicine [facility] Endocrine, Diabetes, and Hypertension [address] [address] Svetlana Lucero, PharmD 75 [place] [address] [email or web address] 11/26/2024 1:00 PM EDT Social Work Social Work Department, [facility] [place] [facility] [place] [address] [address] Hermelinda Barajas MD 450 [facility] [address] [place] [address] Pedro@[email or web address] Indigo Du, [facility] 300 [place] [address] [email or web address] 12/04/2024 7:30 AM EDT Blood Draw Laboratory Services, [address], 2nd [place], [place] Hermelinda Barajas MD [address] [place] [address] 1240 [place] [address] Pedro@[facility] 12/04/2024 8:30 AM EDT Office Visit [facility] for Thoracic Oncology, [address], 9th [place], [place] [phone] Cindi Shell CNP [address] [place] [address] Benedict east@[facility] Hermelinda Barajas MD [address] [place] [address] Pedro@[facility] 12/04/2024 9:30 AM EDT Infusion Infusion Therapy Services [place]key 9, [address], 9th [place] [address] Cindi Shell CNP [address] [place] [address] Benedict east@[facility] Patria Luevano, BRIELLE [address] [place] [address] STEFANO@[facility] 12/25/2024 6:30 AM EDT Blood Draw Laboratory Services, [address], 2nd Floor [place], [place] Cindi Shell CNP 450 [place] [address] Benedict east@[facility] 12/25/2024 7:30 AM EDT Office Visit [facility] for Thoracic Oncology, [address], 9th [place] [address] Cindi Shell CNP [address] [place] [address] Benedict east@[facility] 12/25/2024 8:30 AM EDT Infusion Infusion Therapy Services [place] 9, [address], 9th [place] [address] Cindi Shell CNP [address] [place] [address] Benedict east@[facility] 01/11/2025 11:45 AM EST Appointment [facility], [address] [address] Hermelinda Barajas MD [address] [place] [address] 1240 [place] [address] Pedro@[facility] 01/15/2025 7:10 AM EST Blood Draw Laboratory Services, [address], 2nd [place] [address] Cindi Shell CNP [address] [place] [address] Benedict east@[facility] 01/15/2025 8:00 AM EST Office Visit [facility] for Thoracic On[facility], [facility] [address] [facility], 9th [place] [address] Hermelinda Barajas MD 450 [facility] 1240 [place] [address] Pedro@[facility] 01/15/2025 9:00 AM EST Infusion Infusion Therapy Services [place] 9, [facility] 450 [facility], 9th [place] [address] Cindi Shell CNP 450 [place] [address] Benedict east@[facility] 01/18/2025 7:35 AM EST Hospital Encounter [facility] EKG 70 [place] [address] Guanakito Gallardo MD [address] [place] [address] [place] [address] [email or web address] [facility] 01/18/2025 8:30 AM EST Appointment [facility] 70 [place] [address] Odalis Jimenez PA-C 70 [facility] 5th [place] [address] [email or web address] 02/01/2025 8:40 AM EST Office Visit [facility] Otolaryngology 45 [facility] ASB2-2 [place] [address] Demetrio Armstrong MD 45 [place] [phone] [email or web address]@[facility] 02/25/2025 9:[address] [facility] Cardiovascular Clinic 70 [place] [address] Guanakito Gallardo MD [address] [place] [address] 07/04/2025 10:[address] [facility] Cardiovascular Clinic 70 [place] [address] Thiago Bean MD [address] [place] [address] laurita@[facility] 10/18/2025 7:05 AM EDT Hospital Encounter [facility] EKG 70 [place] [address] Guanakito Gallardo MD [address] [place] [phone] [email or web address] Arrived documented as of this encounter Visit Diagnoses Not on filedocumented in this encounter Additional Health Concerns Infection Onset Date Last Indicated Resolved Time COVID-19 04/06/2023 04/06/2023 04/27/2023 1:21 AM EST CoV-Risk 07/17/2024 07/17/2024 07/28/2024 1:21 AM EDT documented as of this encounter Care Teams Picker Relationship Specialty Start Date End Date Grecia Bonilla MD [address] [place] [address] [place] [address] PCP - General Internal Medicine 10/13/22 Indigo Du, [facility] 300 [place] [address] [email or web address] Machine Helper Oncology 07/27/22 Hermelinda Barajas MD [address] [place] [address] Mariah Shen [address] [place] [address] Pedro@[facility] Medical Oncology 11/29/22 Cindi Shell CNP [address] [place] [address] Fina@[facility] Gerontology 11/29/22 Zuri Ha RN [address] [place] [address] Milton@[facility] Primary Infusion Nurse 01/10/24 05/14/24 Carlos Alberto King MD, [place] [address] [place] [address] Department of Psychosocial Oncology and Palliative Care, [place] [phone] Jaelyn@[facility] Hospice and Palliative Care 04/05/24 Patria Luevano, BRIELLE [address] [place] [address] STEFANO@[facility] Primary Infusion Nurse 05/15/24 Jennie Ferreira, BRIELLE [address] [place] [address] ALISON@[email or web address] Associate Infusion Nurse 10/02/24 documented as of this encounter Additional Source Comments The information contained in this document represents components of the legal health record. It is not the complete legal health record.[facility]
--- OUTSIDE RECORDS SUMMARY | 2024-11-20 11:57 | XMS_ITS | Encounter Summary ---
Author Organization [facility] Address [address] [place] [address] Phone Care Team Providers Care Land Use Planner Name Role Phone Indigo DuSW Unavailable [phone] Grecia Bonilla MD Primary Care Provider Hermelinda Barajas MD Unavailable [phone] Cindi Shell EXERCISE INSTRUCT Unavailable Zuri Ha RN Unavailable Sandra Ruiz@[facility] Carlos Alberto King MD, [place] Unavailable Patria Luevano RN Unavailable TOBIAS HYATT@[facility] Jennie Ferreira RN Unavailable ALISON@ [facility] Encounter Details Date Type Department Care Team (Late st Contact Info) Description 06/21/2023 Procedure Pass [facility] Department, [facility] [place] [address] [facility], Floor L1 [place] [address] Social History Tobacco Use Types Packs/Day Years [...] st Contact Info) Description 10/18/2024 Procedure Pass [facility] 70 [place] [address] 10/23/2024 Procedure Pass [facility] EKG 70 [place] [address] 10/23/2024 Procedure Pass [facility] EKG 70 [place] [address] 11/13/2024 Procedure Pass [address] [address] 11/13/2024 Procedure Pass [address] [address] 11/22/2024 1:00 PM EDT Telemedicine [facility] Endocrine, Diabetes, and Hypertension [address] [address] Svetlana Lucero, PharmD 75 [place] [address] [email or web address] .[email or web address] 11/26/2024 1:00 PM EDT Social Work Social Work Department, [facility] [place] at [address] 4th [place] [address] Hermelinda Barajas MD 450 [facility] [address] [place] [address] Pedro@[facility] Indigo Du, [facility] 300 [place] [address] [email or web address] 12/04/2024 7:30 AM EDT Blood [facility], [facility], 2nd Floor [place], [place] Hermelinda Barajas MD 450 [facility] 1240 [place] [address] Pedro@[facility] 12/04/2024 8:30 AM EDT Office Visit [facility], [facility], 9th [place] [address] Cindi Shell CNP 450 [place] [address] Benedict east@[facility] Hermelinda Barajas MD 450 [facility] 1240 [place] [address] Pedro@[facility] 12/04/2024 9:30 AM EDT Infusion Infusion Therapy Services [place] 9, [facility] [address] [facility], 9th [place] [address] Cindi Shell EXERCISE INSTRUCT [address] [place] [address] Benedict east@[facility] Patria Luevano, RN 450 [place] [address] STEFANO@[facility] 12/25/2024 6:30 AM EDT Blood Draw Laboratory Services, [address], 2nd [place] [address] Cindi Shell EXERCISE INSTRUCT 450 [place] [address] Benedict east@[facility] 12/25/2024 7:30 AM EDT Office Visit [facility] for [facility] On[facility], [address], 9th [place] [address] Cindi Shell EXERCISE INSTRUCT 450 [place] [address] Benedict east@[facility] 12/25/2024 8:30 AM EDT Infusion Infusion Therapy Services Yawkey 9, [address], 9th [place] [address] Cindi Shell EXERCISE INSTRUCT [address] [place] [address] Benedict east@[facility] 01/11/2025 11:45 AM EST Appointment [facility], [address] [address] Hermelinda Barajas MD [address] [place] [address] 1240 [place] [address] Pedro@[facility] 01/15/2025 7:10 AM EST Blood Draw Laboratory Services, [address], 2nd [place] [address] Cindi Shell EXERCISE INSTRUCT 450 [place] [address] Benedict east@[facility] 01/15/2025 8:00 AM EST Office Visit [facility], [facility] [address] [facility], 9th [place] [address] Hermelinda Barajas MD [address] [place] [address] 1240 [place] [address] Pedro@[facility] 01/15/2025 9:00 AM EST Infusion Infusion Therapy Services [address] [facility], 9th [place] [address] Cindi Shell CNP 450 [place] [address] Benedict east@[facility] 01/18/2025 7:35 AM EST Hospital Encounter [facility] EKG 70 [place] [address] Guanakito Gallardo MD 75 [facility] [place] [address] [facility] 01/18/2025 8:30 AM EST Appointment [facility] Women[facility] Radiology 70 [place] [address] dOalis Jimenez PA-C 70 [facility] 5th [place] [address] [email or web address] 02/01/2025 8:40 AM EST Office Visit [facility] Otolaryngology 45 [facility] ASB2-2 [place] [address] Demetrio Armstrong MD 45 [place] [phone] [email or web address] 02/25/2025 9:30 AM EST Telemedicine [facility] 70 [place] [address] Guanakito Gallardo MD [address] [place] [address] 07/04/2025 10:00 AM EDT Telemedicine [facility] [address] [place] [address] Thiago Bean MD [address] [place] [address] [email or web address] 10/18/2025 7:05 AM EDT Hospital Encounter [facility] EKG 70 [place] [address] Guanakito Gallardo MD [address] [place] [address] Arrived documented as of this encounter Visit Diagnoses Not on filedocumented in this encounter Additional Health Concerns Infection Onset Date Last Indicated Resolved Time CoV-Risk 07/17/2024 07/17/2024 07/28/2024 1:21 AM EDT documented as of this encounter Care Teams Land Use Planner Relationship Specialty Start Date End Date Grecia Bonilla MD [address] [place] [address] Dr Stern [address] [place] [phone] PCP - General Internal Medicine 10/13/22 Indigo Du, [facility] 300 [place] [address] [email or web address] Package Dyer Oncology 07/27/22 Hermelinda Barajas MD [facility] Wendy Shen 1240 [place] [address] Pedro@[facility] Medical Oncology 11/29/22 Cindi Shell CNP [address] [place] [address] Fina@[facility] Gerontology 11/29/22 Zuri Ha, BRIELLE [address] [place] [address] Milton@[facility] Primary Infusion Nurse 01/10/24 05/14/24 Carlos Alberto King MD, [place] [address] [place] [address] Department of Psychosocial Oncology and Palliative Care, [place] [phone] Jaelyn@[facility] Hospice and Palliative Care 04/05/24 Patria Luevano, BRIELLE [address] [place] [address] STEFANO@[facility] Primary Infusion Nurse 05/15/24 Jennie Ferreira, BRIELLE [address] [place] [address] ALISON@[facility] Associate Infusion Nurse 10/02/24 documented as of this encounter Additional Source Comments The information contained in this document represents components of the legal health record. It is not the complete legal health record.[facility]
--- OUTSIDE RECORDS SUMMARY | 2024-11-20 11:57 | XMS_ITS | Encounter Summary ---
Author Organization [facility] Address [address] [place] [address] Phone Care Team Providers Care Insulation Cupola Operator Name Role Phone Indigo DuSW Unavailable Grecia Bonilla MD Primary Care Provider Hermelinda Barajas MD Unavailable [phone] Cindi Shell GOURMET COFFEE ATTENDANT Unavailable Zuri Ha RN Unavailable Sandra Ruiz@[email or web address] Carlos Alberto King MD, [place] Unavailable Patria Luevano RN Unavailable TOBIAS HYATT@[facility] Jennie Ferreira RN Unavailable ALISON@ [facility] Encounter Details Date Type Department Care Team (Late st Contact Info) Description 01/10/[address] [facility], [address] [address] Social History Tobacco Use Types Packs/Day Years [...] [facility] 70 [place] [address] 10/23/[address] [facility] EKG 70 [place] [address] 10/23/[address] [facility] EKG 70 [place] [address] 11/13/2024 Procedure Pass [address] [address] 11/13/2024 Procedure Pass [address] [address] 11/22/2024 1:00 PM EDT Telemedicine [facility] Endocrine, Diabetes, and Hypertension [address] [address] Svetlana Lucero, PharmD 75 [place] [address] [email or web address] 11/26/2024 1:00 PM EDT Social Work Social Work Department, [facility] [place] [facility] [place] [address] [address] Hermelinda Barajas MD [address] [place] [address] [place] [address] Pedro@[facility] Indigo Du, [facility] 300 [place] [address] christina@[facility] 12/04/2024 7:30 AM EDT Blood Draw Laboratory Services, [address], 2nd [place] [address] Hermelinda Barajas MD [address] [place] [address] 1240 [place] [address] Pedro@[facility] 12/04/2024 8:30 AM EDT Office Visit [facility], [address], 9th [place] [address] Cindi Shell GOURMET COFFEE ATTENDANT [address] [place] [address] Benedict east@[facility] Hermelinda Barajas MD [address] [place] [address] 1240 [place] [address] Pedro@[facility] 12/04/2024 9:30 AM EDT Infusion Infusion Therapy Services [place]aw[place] 9, [address], 9th [place] [address] Cindi Shell GOURMET COFFEE ATTENDANT [address] [place] [address] Benedict east@[facility] Patria Luevano, BRIELLE [address] [place] [address] STEFANO@[facility] 12/25/2024 6:30 AM EDT Blood Draw Laboratory Services, [address], 2nd [place] [address] Cindi Shell GOURMET COFFEE ATTENDANT 450 [place] [address] Benedict east@[facility] 12/25/2024 7:30 AM EDT Office Visit [facility], [address], 9th [place] [address] Cindi Shell GOURMET COFFEE ATTENDANT 450 [place] [address] Benedict east@[facility] 12/25/2024 8:30 AM EDT Infusion Infusion Therapy Services [place] [address], [address], 9th [place] [address] Cindi Shell GOURMET COFFEE ATTENDANT [address] [place] [address] Benedict east@[facility] 01/11/2025 11:45 AM EST Appointment [facility], [address] [address] Hermelinda Barajas MD [address] [place] [address] 1240 [place] [address] Pedro@[facility] 01/15/2025 7:10 AM EST Blood Draw Laboratory Services, [address], 2nd [place] [address] Cindi Shell, GOURMET COFFEE ATTENDANT 450 [place] [address] Benedict east@[facility] 01/15/2025 8:00 AM EST Office Visit [facility] for [facility] On[facility], [facility] 450 [facility], 9th [place] [address] Hermelinda Barajas MD 450 [facility] 1240 [place] [address] Pedro@[facility] 01/15/2025 9:00 AM EST Infusion Infusion Therapy Services [facility] 9, [facility] 450 [facility], 9th [place] [address] Cindi Shell CNP 450 [place] [address] Benedict east@[facility] 01/18/2025 7:35 AM EST Hospital Encounter [facility] EKG 70 [place] [address] Guanakito Galalrdo MD 75 [facility] [place] [address] [email or web address] 01/18/2025 8:30 AM EST Appointment [facility] 70 [place] [address] Odalis Jimenez PA-C 70 [facility] 5th [place] [address] [email or web address] 02/01/2025 8:40 AM EST Office Visit [facility] Otolaryngology 45 [facility] ASB2-2 [place] [address] Demetrio Armstrong MD 45 [place] [phone] [email or web address] 02/25/2025 9:30 AM EST Telemedicine [facility] [address] [place] [address] Guanakito Gallardo MD [address] [place] [address] 07/04/2025 10:00 AM EDT Telemedicine [facility] [address] [place] [place] [address] Thiago Bean MD [address] [place] [address] [email or web address] 10/18/2025 7:05 AM EDT Hospital Encounter [facility] EKG [address] [place] [place] [address] Guanakito Gallardo MD [address] [place] [address] [email or web address] Arrived documented as of this encounter Visit Diagnoses Not on filedocumented in this encounter Additional Health Concerns Infection Onset Date Last Indicated Resolved Time CoV-Risk 07/17/2024 07/17/2024 07/28/2024 1:21 AM EDT documented as of this encounter Care Teams Insulation Cupola Operator Relationship Specialty Start Date End Date Grecia Bonilla MD [address] [place] [address] [place] [address] PCP - General Internal Medicine 10/13/22 Indigo Du, [facility] 300 [place] [address] [email or web address] Automotive Parts Manager Oncology 07/27/22 Hermelinda Barajas MD [address] [place] [address] Andrew Shen 1240 [place] [address] Pedro@[facility] Medical Oncology 11/29/22 Cindi Shell CNP [address] [place] [address] Fina@[facility] Gerontology 11/29/22 Zuri Ha, BRIELLE [address] [place] [address] [email or web address] 234 [facility] Primary Infusion Nurse 01/10/24 05/14/24 Carlos Alberto King MD, [place] [address] [place] [address] Department of Psychosocial Oncology and Palliative Care, [place] [address] Jaelyn@[facility] Hospice and Palliative Care 04/05/24 Patria Luevano, BRIELLE [address] [place] [address] STEFANO@[facility] Primary Infusion Nurse 05/15/24 Jennie Ferreira RN [address] [place] [address] [email or web address] Associate Infusion Nurse 10/02/24 documented as of this encounter Additional Source Comments The information contained in this document represents components of the legal health record. It is not the complete legal health record.[facility]
--- OUTSIDE RECORDS SUMMARY | 2024-11-20 11:57 | XMS_ITS | Encounter Summary ---
Author Organization [facility] Address [address] [place] [address] Phone Care Team Providers Care Patient Access Representative Name Role Phone Indigo DuSW Unavailable Grecia Bonilla MD Primary Care Provider Hermelinda Barajas MD Unavailable [phone] Cindi Shell [facility] Unavailable Carlos Alberto King MD, [place] Unavailable Patria Luevano RN Unavailable TOBIAS HYATT@[facility] Jennie Ferreira RN Unavailable ALISON@ [facility] Encounter Details Date Type Department Care Team (Late st Contact Info) Description 10/17/2024 Procedure Pass [facility] Women[facility] Radiology 70 [place] [address] Social History Tobacco Use Types Packs/Day Years [...] st Contact Info) Description 10/18/2024 Procedure Pass [facility] 70 [place] [address] 10/23/2024 Procedure Pass [facility] EKG 70 [place] [address] 10/23/2024 Procedure Pass [facility] EKG 70 [place] [address] 11/13/2024 Procedure Pass [address] [address] 11/13/2024 Procedure Pass [address] [address] 11/22/2024 1:00 PM EDT Telemedicine [facility] Endocrine, Diabetes, and Hypertension [address] [address] Svetlana Lucero, PharmD 75 [place] [address] [email or web address] 11/26/2024 1:00 PM EDT Social Work Social Work Department, [facility] [place] [facility] [place] 300 [facility] 4th [place] [address] Hermelinda Barajas MD 450 [facility] 1240 [place] [address] Pedro@[facility] Indigo Du, [facility] 300 [place] [address] [email or web address]@[email or web address] 12/04/2024 7:30 AM EDT Blood Draw Laboratory Services, [address], 2nd [place] [address] Hermelinda Barajas MD 450 [facility] 1240 [place] [address] Pedro@[facility] 12/04/2024 8:30 AM EDT Office Visit [facility] for Thoracic Oncology, [address], 9th [place] [address] Cindi Shell ANESTHESIOLOGIST [address] [place] [address] Benedict east@[facility] Hermelinda Barajas MD 450 [facility] 1240 [place] [address] Pedro@[facility] 12/04/2024 9:30 AM EDT Infusion Infusion Therapy Services [place] 9, [facility] [place] [address] [facility], 9th [place] [address] Cindi Shell ANESTHESIOLOGIST [address] [place] [address] [place] [address] Benedict east@[facility] Patria Luevano, BRIELLE 450 [place] [address] STEFANO@[facility] 12/25/2024 6:30 AM EDT Blood Draw Laboratory Services, [address], 2nd [place] [address] Cindi Shell CNP [address] [place] [address] eBnedict east@[facility] 12/25/2024 7:30 AM EDT Office Visit [facility] for [facility] On[facility], [address], 9th [place] [address] Cindi Shell ANESTHESIOLOGIST [address] [place] [address] Benedict east@[facility] 12/25/2024 8:30 AM EDT Infusion Infusion Therapy Services [place] 9, [address], 9th [place] [address] Cindi Shell ANESTHESIOLOGIST [address] [place] [address] Benedict east@[facility] 01/11/2025 11:45 AM EST Appointment [facility] 30 [place] [address] Hermelinda Barajas MD [address] [place] [address] 1240 [place] [address] Pedro@[facility] 01/15/2025 7:10 AM EST Blood Draw Laboratory Services, [facility] [place] [address] [facility], 2nd [place] [address] Cindi Shell CNP 450 [place] [address] Benedict east@[facility] 01/15/2025 8:00 AM EST Office Visit [facility] for Thoracic On[facility], [facility] [place] [address] [facility], 9th [place] [address] Hermelinda Barajas MD [address] [place] [address] 1240 [place] [address] Pedro@[facility] 01/15/2025 9:00 AM EST Infusion Infusion Therapy Services [place] 9, [facility] [place] [address] [facility], 9th [place] [address] Cindi Shell CNP 450 [place] [address] Benedict east@[facility] 01/18/2025 7:35 AM EST Hospital Encounter [facility] EKG 70 [place] [address] Guanakito Gallardo MD [address] [place] [address] [place] [address] Arrived 01/18/2025 8:30 AM EST Appointment [facility] 70 [place] [address] Odalis Jimenez PA-C 70 [facility] 5th [place] [address] [email or web address] 02/01/2025 8:40 AM EST Office Visit [facility] Otolaryngology 45 [facility] ASB2-2 [place] [address] Demetrio Armstrong MD 45 [place] [phone] [email or web address] 02/25/2025 9:30 AM EST Telemedicine [facility] [address] [place] [address] Guanakito Gallardo MD [address] [place] [address] [email or web address] 07/04/2025 10:00 AM EDT Telemedicine [facility] Clinic [address] [place] [address] Thiago Bean MD [address] [place] [address] [email or web address]@[facility] 10/18/2025 7:05 AM EDT Hospital Encounter [facility] EKG 70 [place] [address] Guanakito Gallardo MD [address] [place] [address] [place] [address] [email or web address] Arrived documented as of this encounter Visit Diagnoses Not on filedocumented in this encounter Care Teams Patient Access Representative Relationship Specialty Start Date End Date Grecia Bonilla MD [address] [place] [address] [place] [phone] PCP - General Internal Medicine 10/13/22 Indigo Du, [facility] 300 [place] [address] [email or web address] Braid Folder Oncology 07/27/22 Hermelinda Barajas MD [address] [place] [address] 1240 [place] [address] Pedro@[facility] Medical Oncology 11/29/22 Cindi Shell CNP [address] [place] [address] Fina@[email or web address] Gerontology 11/29/22 Carlos Alberto King MD, [place] [address] [place] [address] Department of Psychosocial Oncology and Palliative Care, [place] [phone] Jaelyn@[facility] Hospice and Palliative Care 04/05/24 Patria Luevano, BRIELLE [address] [place] [address] [email or web address]@[facility] Primary Infusion Nurse 05/15/24 Jennie Ferreira, BRIELLE [address] [place] [address] ALISON@[facility] Associate Infusion Nurse 10/02/24 documented as of this encounter Additional Source Comments The information contained in this document represents components of the legal health record. It is not the complete legal health record.[facility]
--- OUTSIDE RECORDS SUMMARY | 2024-11-20 11:57 | XMS_ITS | Encounter Summary ---
Author Organization [facility] Address [address] [facility] [address] [place] [address] Phone Care Team Providers Care Airplane Dispatcher Name Role Phone Indigo Du FISHER Unavailable [phone] Grecia Bonilla MD Primary Care Provider Hermelinda Barajas MD Unavailable [phone] Cindi Shell PIT SLAGMAN Unavailable [phone] Carlos Alberto King MD, [place] Unavailable [phone] Patria Luevano RN Unavailable TOBIAS [email or web address] Jennie Ferreira RN Unavailable ALISON@ [email or web address] Reason for Referral * MRI/CAT Scan - Closed Specialty Diagnoses / Procedures Referred By Sarah moser Referred To Contact Radiology Diagnoses Retinal artery occlusion Paroxysmal atrial fibrillation Procedures CT 3D Reconstruction CT Angio Chest CHG 3D RENDERING W/INTERP&POSTPROC DIFF WORK STATION Yeimy Holder PA-C [address] [place] [address] Phone: tel: fax:[phone] mailto:[email or web address] Referral ID Status Reason Start Date Expiration Date Visits Re quested Visits Authorized [id number] Closed 10/17/2024 04/15/2025 1 1 Encounter Details Date Type Department Care Team (Latest Contact Info) Description 10/17/2024 Ancillary Orders [facility] Cardiology [address] [place] [address] Yeimy Holder PA-C [address] [place] [address] [email or web address] Retinal artery occlusion (Primary Dx); Paroxysmal atrial [...] st Contact Info) Description 10/18/2024 Procedure Pass [facility] Radiology [address] [place] [address] 10/23/2024 Procedure Pass [facility] EKG [address] [place] [address] 10/23/2024 Procedure Pass [facility] EKG [address] [place] [address] 11/13/2024 Procedure Pass [address] [address] 11/13/2024 Procedure Pass [address] [address] 11/22/2024 1:00 PM EDT Telemedicine [facility] Endocrine, Diabetes, and Hypertension [address] [address] Svetlana Lucero, PharmD 75 [place] [address] nilam@[facility] 11/26/2024 1:00 PM EDT Social Work Social Work Department, [facility] [address] [address] Hermelinda Barajas MD [address] [place] [address] Pedro@[facility] Indigo Du, FISHER [address] [place] [address] [email or web address] 12/04/2024 7:30 AM EDT Blood Draw Laboratory Services, [address] [address] Hermelinda Barajas MD [address] [place] [address] Pedro@[facility] 12/04/2024 8:30 AM EDT Office Visit [facility] for Thoracic Oncology, [address], 9th [place] [address] Cindi Shell CNP [address] [place] [address] Benedict east@[facility] Hermelinda Barajas MD [address] [place] [address] 1240 [place] [address] Pedro@[facility] 12/04/2024 9:30 AM EDT Infusion Infusion Therapy Services [facility] 9, [address], 9th [place] [address] Cindi Shell CNP [address] [place] [address] Benedict east@[facility] Patria Luevano RN [address] [place] [address] STEFANO@[facility] 12/25/2024 6:30 AM EDT Blood Draw Laboratory Services, [address], 2nd [place] [address] Cindi Shell CNP [address] [place] [address] Benedict east@[facility] 12/25/2024 7:30 AM EDT Office Visit [facility] for Thoracic Oncology, [address], 9th [place] [address] Cindi Shell CNP [address] [place] [address] Benedict east@[facility] 12/25/2024 8:30 AM EDT Infusion Infusion Therapy Services [place] 9, [address], 9th [place] [address] Cindi Shell PIT SLAGMAN 450 [place] [address] Benedict east@[facility] 01/11/2025 11:45 AM EST Appointment [facility], [address] [address] Hermelinda Barajas MD [address] [place] [address] Pedro@[facility] 01/15/2025 7:10 AM EST Blood Draw Laboratory Services, [address], 2nd [place] [address] Cindi Shell PIT SLAGMAN [address] [place] [address] Benedict east@[facility] 01/15/2025 8:00 AM EST Office Visit [facility] Thoracic Oncology, [address], 9th [place] [address] Hermelinda Barajas MD [address] [place] [address] Pedro@[facility] 01/15/2025 9:00 AM EST Infusion Infusion Therapy Services [place] 9, [facility] [place] [address] [facility], 9th [place] [address] Cindi Shell, PIT SLAGMAN 450 [place] [address] CindiMukeshWalter [email or web address]@[facility] 01/18/2025 7:35 AM EST Hospital Encounter [facility] EKG [address] [place] [address] Guanakito Gallardo MD [address] [place] [address] [place] [address] [email or web address] 01/18/2025 8:30 AM EST Appointment [facility] [address] [place] [address] Odalis Jimenez PA-C 70 [facility] 5th [place] [address] [email or web address] 02/01/2025 8:40 AM EST Office Visit [facility] Otolaryngology 45 [facility]2 [place] [address] Demetrio Armstrong MD [address] [place] [phone] mak@[facility] 02/25/2025 9:[address] [facility] Cardiovascular Clinic [address] [place] [address] Guanakito Gallardo MD [address] [place] [address] [email or web address] 07/04/2025 10:[address] [facility] Cardiovascular Clinic [address] [place] [address] Thiago Bean MD [address] [place] [address] [email or web address] 10/18/2025 7:05 AM EDT Hospital Encounter [facility] EKG 70 [place] [address] Guanakito Gallardo MD [address] [place] [address] [place] [address] [email or web address] Arrived documented as of this encounter Results [...] fibrillation documented in this encounter Care Teams Airplane Dispatcher Relationship Specialty Start Date End Date Grecia Bonilla MD [address] [place] [address] [address] PCP - General Internal Medicine 10/13/22 Indigo Du, [facility] 300 [place] [address] [email or web address] Sanitary Engineering Teacher Oncology 07/27/22 Hermelinda Barajas MD [address] [place] [address] Pedro@[facility] Medical Oncology 11/29/22 Cindi Shell CNP [address] [place] [address] [place] [address] [email or web address]@[facility] Gerontology 11/29/22 Carlos Alberto King MD, [place] [address] [place] [address] Department of Psychosocial Oncology and Palliative Care, [place] [phone] Jaelyn@[facility] Hospice and Palliative Care 04/05/24 Patria Luevano, BRIELLE [address] [place] [address] STEFANO@[facility] Primary Infusion Nurse 05/15/24 Jennie Ferreira, BRIELLE [address] [place] [address] ALISON@[email or web address] Associate Infusion Nurse 10/02/24 documented as of this encounter Additional Source Comments The information contained in this document represents components of the legal health record. It is not the complete legal health record.[facility]
--- OUTSIDE RECORDS SUMMARY | 2024-11-20 11:57 | XMS_ITS | Encounter Summary ---
Author Organization [facility] Address [address] [place] [address] Phone Care Team Providers Care Incident Response Lead Name Role Phone Indigo DuSW Unavailable [phone] Grecia Bonilla MD Primary Care Provider Hermelinda Barajas MD Unavailable [phone] Cindi Shell SUPERVISOR HEAT TREATING Unavailable Zuri Ha RN Unavailable Sandra Ruiz@[email or web address] Carlos Alberto [place] MD, [place] Unavailable [phone] Patria Luevano RN Unavailable TOBIAS [email or web address] Jennie Ferreira RN Unavailable ALISON@ [facility] Encounter Details Date Type Department Care Team (Late st Contact Info) Description 09/06/2023 Procedure Pass [facility] Echocardiography 70 [place] [address] Social History Tobacco Use Types Packs/Day Years [...] [facility] [address] [place] [address] 10/23/2024 Procedure Pass [facility] EKG 70 [place] [address] 10/23/2024 Procedure Pass [facility] EKG 70 [place] [address] 11/13/2024 Procedure Pass [address] [address] 11/13/2024 Procedure Pass [address] [address] 11/22/2024 1:00 PM EDT Telemedicine [facility] Endocrine, Diabetes, and Hypertension [address] [address] Svetalna Lucero, PharmD 75 [place] [address] [email or web address] 11/26/2024 1:00 PM EDT Social Work Social Work Department, [facility] [place] [address] [address] Hermelinda Barajas MD 450 [facility] [address] [place] [address] Pedro@[facility] Indigo Du, [facility] 300 [place] [address] [email or web address] 12/04/2024 7:30 AM EDT Blood Draw Laboratory Services, [address], [address]nd [place], [place] Hermelinda Barajas MD [address] [place] [address] 1240 [place] [address] Pedro@[facility] 12/04/2024 8:30 AM EDT Office Visit [facility] for Thoracic Oncology, [address], [address]th [place], [place] [phone] Cindi Shell CNP [address] [place] [address] Benedict east@[facility] Hermelinda Barajas MD [address] [place] [address] Pedro@[facility] 12/04/2024 9:30 AM EDT Infusion Infusion Therapy Services wkey 9, [address], 9th [place] [address] Cindi Shell CNP [address] [place] [address] Benedict east@[facility] Patria Luevano, BRIELLE [address] [place] [address] STEFANO@[facility] 12/25/2024 6:30 AM EDT Blood Draw Laboratory Services, [address], 2nd [place], [place] Cindi Shell CNP 450 [place] [address] Benedict east@[facility] 12/25/2024 7:30 AM EDT Office Visit [facility] for Thoracic Oncology, [address], 9th [place] [address] Cindi Shell CNP [address] [place] [address] Benedict east@[facility] 12/25/2024 8:30 AM EDT Infusion Infusion Therapy Services [place] 9, [address], 9th [place] [address] Cindi Shell CNP [address] [place] [address] Benedict east@[facility] 01/11/2025 11:45 AM EST Appointment [facility], [address] [address] Hermelinda Barajas MD [address] [place] [address] 1240 [place] [address] Pedro@[facility] 01/15/2025 7:10 AM EST Blood Draw Laboratory Services, [address], 2nd [place] [address] Cindi Shell CNP [address] [place] [address] Benedict east@[facility] 01/15/2025 8:00 AM EST Office Visit [facility] Center for Thoracic On[facility], [facility] 450 [facility], 9th [place] [address] Hermelinda Barajas MD 450 [facility] 1240 [place] [address] Pedro@[facility] 01/15/2025 9:00 AM EST Infusion Infusion Therapy Services [place] 9, [facility] 450 [facility], 9th [place] [address] Cindi Shell CNP 450 [place] [address] Benedict east@[facility] 01/18/2025 7:35 AM EST Hospital Encounter [facility] EKG 70 [place] [address] Guanakito Gallardo MD [address] [place] [address] [place] [address] [email or web address] [email or web address] 01/18/2025 8:30 AM EST Appointment [facility] 70 [place] [address] Odalis Jimenez PA-C 70 [facility] 5th [place] [address] [email or web address] 02/01/2025 8:40 AM EST Office Visit [facility] Otolaryngology 45 [facility] ASB2-2 [place] [address] Demetrio Armstrong MD 45 [place] [phone] mak@[facility] 02/25/2025 9:30 AM EST Telemedicine [facility] Cardiovascular Clinic 70 [place] [address] Guanakito Gallardo MD [address] [place] [address] [email or web address] [email or web address] 07/04/2025 10:00 AM EDT Telemedicine [facility] Cardiovascular Clinic 70 [place] [address] Thiago Bean MD [address] [place] [address] [email or web address]@[facility] 10/18/2025 7:05 AM EDT Hospital Encounter [facility] EKG 70 [place] [address] Guanakito Gallardo MD [address] [place] [address] [email or web address] [email or web address] Arrived documented as of this encounter Visit Diagnoses Not on filedocumented in this encounter Additional Health Concerns Infection Onset Date Last Indicated Resolved Time CoV-Risk 07/17/2024 07/17/2024 07/28/2024 1:21 AM EDT documented as of this encounter Care Teams Incident Response Lead Relationship Specialty Start Date End Date Grecia Bonilla MD [address] [place] [address] [place] [address] PCP - General Internal Medicine 10/13/22 Indigo Du, BAR HOST [address] [place] [address] [email or web address] Tank Assembler Oncology 07/27/22 Hermelinda Barajas MD [facility] Wendy Shen 1240 [place] [address] Pedro@[facility] Medical Oncology 11/29/22 Cindi Shell CNP [address] [place] [address] [email or web address] Gerontology 11/29/22 Zuri Ha RN [address] [place] [address] Milton@[facility] Primary Infusion Nurse 01/10/24 05/14/24 Carlos Alberto King MD, [place] [address] [place] [address] Department of Psychosocial Oncology and Palliative Care, [place] [address] Jaelyn@[facility] Hospice and Palliative Care 04/05/24 Patria Luevano, BRIELLE [address] [place] [address] STEFANO@[facility] Primary Infusion Nurse 05/15/24 Jennie Ferreira RN [address] [place] [address] ALISON@[facility] Associate Infusion Nurse 10/02/24 documented as of this encounter Additional Source Comments The information contained in this document represents components of the legal health record. It is not the complete legal health record.[facility]
--- OUTSIDE RECORDS SUMMARY | 2024-11-20 11:57 | XMS_ITS | Encounter Summary ---
Author Organization [facility] Address [address] [place] [address] Phone Care Team Providers Care Foot Orthopedist Name Role Phone Indigo DuSW Unavailable Grecia Bonilla MD Primary Care Provider Hermelinda Barajas MD Unavailable [phone] Cindi Shell VEGETABLE COOK Unavailable Zuri Ha RN Unavailable Sandra Ruiz@[facility] Carlos Alberto [place] MD, [place] Unavailable Patria Luevano RN Unavailable TOBIAS HYATT@[facility] Jennie Ferreira RN Unavailable ALISON@ [facility] Encounter Details Date Type Department Care Team (Late st Contact Info) Description 03/22/2023 Procedure Pass [facility] 70 [place] [address] Social History Tobacco Use Types Packs/Day Years [...] [facility] 70 [place] [address] 10/23/2024 Procedure Pass [facility] EKG 70 [place] [address] 10/23/2024 Procedure Pass [facility] EKG [address] [place] [address] 11/13/2024 Procedure Pass [address] [address] 11/13/2024 Procedure Pass [address] [address] 11/22/2024 1:00 PM EDT Telemedicine [facility] Endocrine, Diabetes, and Hypertension [address] [address] Svetlana Lucero, PharmD 75 [place] [address] nilam@[email or web address] 11/26/2024 1:00 PM EDT Social Work Social Work Department, [facility] [place] [address] [address] Hermelinda Barajas MD [address] [place] [address] Pedro@[facility] Indigo Du, [facility] 300 [place] [address] [email or web address] 12/04/2024 7:30 AM EDT Blood Draw Laboratory Services, [address], [address] [place], [place] Hermelinda Barajas MD 450 [facility] 1240 [place] [address] Pedro@[facility] 12/04/2024 8:30 AM EDT Office Visit [facility] for Thoracic Oncology, [address], 9th [place] [address] Cindi Shell CNP [address] [place] [address] Benedict east@[facility] Hermelinda Barajas MD [address] [place] [address] 1240 [place] [address] Pedro@[facility] 12/04/2024 9:30 AM EDT Infusion Infusion Therapy Services [facility] 9, [address], 9th [place] [address] Cindi Shell VEGETABLE COOK [address] [place] [address] Benedict east@[facility] Patria Luevano, BRIELLE [address] [place] [address] [email or web address]@[facility] 12/25/2024 6:30 AM EDT Blood Draw Laboratory Services, [address], 2nd [place] [address] Cindi Shell VEGETABLE COOK 450 [place] [address] Benedict east@[facility] 12/25/2024 7:30 AM EDT Office Visit [facility] [place] for Thoracic Oncology, [address], 9th [place] [address] Cindi Shell VEGETABLE COOK 450 [place] [address] Benedict east@[facility] 12/25/2024 8:30 AM EDT Infusion Infusion Therapy Services [place] [address], [address], 9th [place] [address] Cindi Shell VEGETABLE COOK [address] [place] [address] Benedict east@[facility] 01/11/2025 11:45 AM EST Appointment [address] [address] Hermelinda Barajas MD [address] [place] [address] 1240 [place] [address] Pedro@[facility] 01/15/2025 7:10 AM EST Blood Draw Laboratory Services, [address], 2nd [place] [address] Cindi Shell VEGETABLE COOK 450 [place] [address] Benedict east@[facility] 01/15/2025 8:00 AM EST Office Visit [facility], [facility] 450 [facility], 9th [place] [address] Hermelinda Barajas MD 450 [facility] 1240 [place] [address] Pedro@[facility] 01/15/2025 9:00 AM EST Infusion Infusion Therapy Services [facility] 9, [facility] 450 [facility], 9th [place] [address] Cindi Shell CNP 450 [place] [address] Benedict east@[facility] 01/18/2025 7:35 AM EST Hospital Encounter [facility] EKG 70 [place] [address] Guanakito Gallardo MD [address] [place] [address] [place] [address] [email or web address] 01/18/2025 8:30 AM EST Appointment [facility] 70 [place] [address] Odalis Jimenez PA-C 70 [facility] 5th [place] [address] [email or web address] 02/01/2025 8:40 AM EST Office Visit [facility] Otolaryngology 45 [facility] ASB2-2 [place] [address] Demetrio Armstrong MD 45 [place] [phone] [email or web address] 02/25/2025 9:30 AM EST Telemedicine [facility] [address] [place] [address] Guanakito Gallardo MD [address] [place] [address] 07/04/2025 10:00 AM EDT Telemedicine [facility] [address] [place] [address] Thiago Bean MD [address] [place] [address] [email or web address] 10/18/2025 7:05 AM EDT Hospital Encounter [facility] EKG [address] [place] [address] Guanakito Gallardo MD [address] [place] [phone] [email or web address] Arrived documented as of this encounter Visit Diagnoses Not on filedocumented in this encounter Additional Health Concerns Infection Onset Date Last Indicated Resolved Time COVID-19 04/06/2023 04/06/2023 04/27/2023 1:21 AM EST CoV-Risk 07/17/2024 07/17/2024 07/28/2024 1:21 AM EDT documented as of this encounter Care Teams Foot Orthopedist Relationship Specialty Start Date End Date Grecia Bonilla MD [address] [place] [address] [place] [address] PCP - General Internal Medicine 10/13/22 Indigo Du [facility] 300 [place] [address] [email or web address] Manager Mechanical Maintenance Oncology 07/27/22 Hermelinda Barajas MD [address] [place] [address] Mariah Shen [address] [place] [address] Pedro@[facility] Medical Oncology 11/29/22 Cindi Shell CNP [address] [place] [address] Fina@[facility] Gerontology 11/29/22 Zuri Ha RN [address] [place] [address] Milton@[facility] Primary Infusion Nurse 01/10/24 05/14/24 Carlos Alberto King MD, [place] [address] [place] [address] Department of Psychosocial Oncology and Palliative Care, [place] [address] Jaelyn@[facility] Hospice and Palliative Care 04/05/24 Patria Luevano, BRIELLE [address] [place] [address] [email or web address]@[facility] Primary Infusion Nurse 05/15/24 Jennie Ferreira, BRIELLE [address] [place] [address] [email or web address]@[facility] Associate Infusion Nurse 10/02/24 documented as of this encounter Additional Source Comments The information contained in this document represents components of the legal health record. It is not the complete legal health record.[facility]
--- OUTSIDE RECORDS SUMMARY | 2024-11-20 11:57 | XMS_ITS | Encounter Summary ---
Author Organization [facility] Address [address] [place] [address] Phone Care Team Providers Care Emergency Medical Technician Name Role Phone Indigo uDSW Unavailable Grecia Bonilla MD Primary Care Provider Hermelinda Barajas MD Unavailable [phone] Cindi Shell MANAGER MATERIALS MANAGEMENT Unavailable Zuri Ha RN Unavailable Sandra Ruiz@[facility].EQUALITY.[facility] Carlos Alberto King MD, [place] Unavailable [phone] Patria Luevano RN Unavailable TOBIAS HYATT@[email or web address].[facility] Jennie Ferreira RN Unavailable ALISON@ [facility].EQUALITY.[facility] Encounter Details Date Type Department Care Team (Late st Contact Info) Description 01/10/2024 Procedure Pass [facility], Ct Scan - [facility] 30 [place] [address] Social History Tobacco Use Types Packs/Day Years [...] [facility] Women[facility] Radiology 70 [place] [address] 10/23/2024 Procedure Pass [facility] EKG 70 [place] [address] 10/23/2024 Procedure Pass [facility] EKG 70 [place] [address] 11/13/2024 Procedure Pass [address] [address] 11/13/2024 Procedure Pass [address] [address] 11/22/2024 1:00 PM EDT Telemedicine [facility] Endocrine, Diabetes, and Hypertension [address] [address] Svetlana Lucero, PharmD 75 [place] [address] nilam@[email or web address] 11/26/2024 1:00 PM EDT Social Work Social Work Department, [facility] [facility] [place] [address] [address] Hermelinda Barajas MD [address] [place] [address] Pedro@[facility] Indigo Du, [facility] 300 [place] [address] [email or web address] 12/04/2024 7:30 AM EDT Blood Draw Laboratory Services, [address], 2nd [place], [place] Hermelinda Barajas MD [address] [place] [address] 1240 [place] [address] Pedro@[facility] 12/04/2024 8:30 AM EDT Office Visit [facility] for Thoracic Oncology, [address], 9th [place] [address] Cindi Shell MANAGER MATERIALS MANAGEMENT [address] [place] [address] Benedict east@[facility] Hermelinda Barajas MD [address] [place] [address] 1240 [place] [address] Pedro@[facility] 12/04/2024 9:30 AM EDT Infusion Infusion Therapy Services Yawkey 9, [address], 9th [place] [address] Cindi Shell MANAGER MATERIALS MANAGEMENT [address] [place] [address] Benedict east@[facility] Patria Luevano, BRIELLE [address] [place] [address] STEFANO@[facility] 12/25/2024 6:30 AM EDT Blood Draw Laboratory Services, [address], 2nd [place] [address] Cindi Shell CNP 450 [place] [address] Benedict east@[facility] 12/25/2024 7:30 AM EDT [facility], [address], 9th [place] [address] Cindi Shell CNP 450 [place] [address] Benedict east@[facility] 12/25/2024 8:30 AM EDT Infusion Infusion Therapy Services [place] [address], [address], 9th [place] [address] Cindi Shell CNP 450 [place] [address] Benedict east@[facility] 01/11/2025 11:45 AM EST Appointment [facility], [address] [address] Hermelinda Barajas MD [address] [place] [address] 1240 [place] [address] Pedro@[facility] 01/15/2025 7:10 AM EST Blood Draw Laboratory Services, [address], 2nd [place] [address] Cindi Shell MANAGER MATERIALS MANAGEMENT 450 [place] [address] Benedict east@[facility] 01/15/2025 8:00 AM EST [facility] On[facility], [facility] 450 [facility], 9th [place] [address] Hermelinda Barajas MD 450 [facility] 1240 [place] [address] Pedro@[facility] 01/15/2025 9:00 AM EST Infusion Infusion Therapy Services [facility] 9[facility] 450 [facility], 9th [place] [address] Cindi Shell CNP 450 [place] [address] Benedict east@[facility] 01/18/2025 7:35 AM EST Hospital Encounter [facility] EKG 70 [place] [address] Guanakito Gallardo MD 75 [facility] [place] [address] [email or web address] [facility] 01/18/2025 8:30 AM EST Appointment [facility] Women[facility] Radiology 70 [place] [address] Odalis Jimenez PA-C 70 [facility] 5th [place] [address] [email or web address] 02/01/2025 8:40 AM EST Office Visit [facility] Otolaryngology 45 [facility] ASB2-2 [place] [address] Demetrio Armstrong MD 45 [place] [phone] [email or web address] 02/25/2025 9:30 AM EST Telemedicine [facility] Cardiovascular Clinic [address] [place] [address] Guanakito Gallardo MD [address] [place] [address] 07/04/2025 10:00 AM EDT Telemedicine [facility] Cardiovascular Clinic [address] [place] [address] Thiago Bean MD [address] [place] [address] [email or web address]@[facility] 10/18/2025 7:05 AM EDT Hospital Encounter [facility] EKG [address] [place] [address] Guanakito Gallardo MD [address] [place] [address] Arrived documented as of this encounter Visit Diagnoses Not on filedocumented in this encounter Additional Health Concerns Infection Onset Date Last Indicated Resolved Time CoV-Risk 07/17/2024 07/17/2024 07/28/2024 1:21 AM EDT documented as of this encounter Care Teams Emergency Medical Technician Relationship Specialty Start Date End Date Grecia Bonilla MD [address] [place] [address] [place] [address] PCP - General Internal Medicine 10/13/22 Indigo Du, [facility] 300 [place] [address] [email or web address] Insecticide Supervisor Oncology 07/27/22 Hermelinda Barajas MD [address] [place] [address] Mariah Shen 1240 [place] [address] Cheikhow@[facility] Medical Oncology 11/29/22 Cindi Shell CNP [address] [place] [address] Fina@[email or web address] Gerontology 11/29/22 Zuri Ha RN [address] [place] [address] Milton@[facility] Primary Infusion Nurse 01/10/24 05/14/24 Carlos Alberto King MD, [place] [address] [place] [address] Department of Psychosocial Oncology and Palliative Care, [place] [address] Jaelyn@[facility] Hospice and Palliative Care 04/05/24 Patria Luevano, BRIELLE [address] [place] [address] STEFANO@[facility] Primary Infusion Nurse 05/15/24 Jennie Ferreira RN [address] [place] [address] ALISON@[facility] Associate Infusion Nurse 10/02/24 documented as of this encounter Additional Source Comments The information contained in this document represents components of the legal health record. It is not the complete legal health record.[facility]
--- OUTSIDE RECORDS SUMMARY | 2024-11-20 11:57 | XMS_ITS | Encounter Summary ---
Author Organization [facility] Address [address] [place] [address] Phone Care Team Providers Care Openstack Cloud Consulting Architect Name Role Phone Indigo DuSW Unavailable [phone] Grecia Bonilla MD Primary Care Provider Hermelinda Barajas MD Unavailable [phone] Cindi Shell GLASS VIAL FILLER Unavailable Zuri Ha RN Unavailable Sandra Ruiz@[email or web address] Carlos Alberto King MD, [place] Unavailable Patria Luevano RN Unavailable TOBIAS HYATT@[email or web address] Jennie Ferreira RN Unavailable ALISON@ [facility] Encounter Details Date Type Department Care Team (Late st Contact Info) Description 09/06/2023 Procedure Pass [facility], [facility] [place] 450 [facility], Floor L1 [place] [address] Social History Tobacco Use Types Packs/Day Years [...] st Contact Info) Description 10/18/2024 Procedure Pass [facility] and Women's Radiology 70 [place] [address] 10/23/2024 Procedure Pass [facility] EKG 70 [place] [address] 10/23/2024 Procedure Pass [facility] EKG 70 [place] [address] 11/13/2024 Procedure Pass [address] [address] 11/13/2024 Procedure Pass [address] [address] 11/22/2024 1:00 PM EDT Telemedicine [facility] Endocrine, Diabetes, and Hypertension [address] [address] Svetlana Lucero, PharmD 75 [place] [address] [email or web address] [facility] 11/26/2024 1:00 PM EDT Social Work Social Work Department, [facility] [place] at [address] 4th [place] [address] Hermelinda Barajas MD 450 [facility] [address] [place] [address] Pedro@[facility] Indigo Du, [facility] 300 [place] [address] christina@[facility] 12/04/2024 7:30 AM EDT Blood Draw Laboratory Services, [facility] 450 [facility], 2nd Floor [place], [place] Hermelinda Barajas MD 450 [facility] 1240 [place] [address] Pedro@[facility] 12/04/2024 8:30 AM EDT Office Visit [facility] Center for Thoracic Oncology, [facility] 450 [facility], 9th [place] [address] Cindi Shell CNP 450 [place] [address] Benedict east@[facility] Hermelinda Barajas MD 450 [facility] 1240 [place] [address] Pedro@[facility] 12/04/2024 9:30 AM EDT Infusion Infusion Therapy Services Y[facility]key 9, [facility] 450 [facility], 9th [place] [address] Cindi Shell GLASS VIAL FILLER [address] [place] [address] Benedict east@[facility] Patria Luevano, RN 450 [place] [address] STEFANO@[facility] 12/25/2024 6:30 AM EDT Blood Draw Laboratory Services, [address], 2nd [place] [address] Cindi Shell GLASS VIAL FILLER 450 [place] [address] Benedict east@[facility] 12/25/2024 7:30 AM EDT Office Visit [facility] for [facility] On[facility], [address], 9th [place] [address] Cindi Shell GLASS VIAL FILLER 450 [place] [address] Benedict east@[facility] 12/25/2024 8:30 AM EDT Infusion Infusion Therapy Services [place] 9, [address], 9th [place] [address] Cindi Shell GLASS VIAL FILLER [address] [place] [address] Benedict east@[facility] 01/11/2025 11:45 AM EST Appointment [facility], [address] [address] Hermelinda Barajas MD [address] [place] [address] 1240 [place] [address] Pedro@[facility] 01/15/2025 7:10 AM EST Blood Draw Laboratory Services, [address], 2nd [place] [address] Cindi Shell GLASS VIAL FILLER 450 [place] [address] Benedict east@[facility] 01/15/2025 8:00 AM EST Office Visit [facility] Center for Thoracic Oncology, [facility] 450 [facility], 9th [place] [address] Hermelinda Barajas MD [address] [place] [address] 1240 [place] [address] Pedro@[facility] 01/15/2025 9:00 AM EST Infusion Infusion Therapy Services [address] 450 [facility], 9th [place] [address] Cindi Shell CNP 450 [place] [address] Benedict east@[facility] 01/18/2025 7:35 AM EST Hospital Encounter [facility] EKG 70 [place] [address] Guanakito Gallardo MD 75 [facility] [place] [address] [facility] 01/18/2025 8:30 AM EST Appointment [facility] 70 [place] [address] Odalis Jimenez PA-C 70 [facility] 5th [place] [address] [email or web address] 02/01/2025 8:40 AM EST Office Visit [facility] Otolaryngology 45 [facility] ASB2-2 [place] [address] Demetrio Armstrong MD 45 [place] [phone] [email or web address] 02/25/2025 9:30 AM EST Telemedicine [facility] Cardiovascular Clinic 70 [place] [address] Guanakito Gallardo MD [address] [place] [address] 07/04/2025 10:00 AM EDT Telemedicine [facility] Cardiovascular Clinic [address] [place] [address] Thiago Bean MD [address] [place] [address] [email or web address]@[facility] 10/18/2025 7:05 AM EDT Hospital Encounter [facility] EKG 70 [place] [address] Guanakito Gallardo MD [address] [place] [address] Arrived documented as of this encounter Visit Diagnoses Not on filedocumented in this encounter Additional Health Concerns Infection Onset Date Last Indicated Resolved Time CoV-Risk 07/17/2024 07/17/2024 07/28/2024 1:21 AM EDT documented as of this encounter Care Teams Openstack Cloud Consulting Architect Relationship Specialty Start Date End Date Grecia Bonilla MD [address] [place] [address] Dr Stern [address] [place] [phone] PCP - General Internal Medicine 10/13/22 Indigo Du, [facility] 300 [place] [address] [email or web address] Corporate Officer Oncology 07/27/22 Hermelinda Barajas MD [facility] Wendy Shen 1240 [place] [address] Pedro@[facility] Medical Oncology 11/29/22 Cindi Shell CNP [address] [place] [address] Fina@[facility] Gerontology 11/29/22 Zuri Ha, BRIELLE [address] [place] [address] Milton@[facility] Primary Infusion Nurse 01/10/24 05/14/24 Carlos Alberto King MD, [place] [address] [place] [address] Department of Psychosocial Oncology and Palliative Care, [place] [address] Jaelyn@[facility] Hospice and Palliative Care 04/05/24 Patria Luevano, BIRELLE [address] [place] [address] STEFANO@[facility] Primary Infusion Nurse 05/15/24 Jennie Ferreira, BRIELLE [address] [place] [address] ALISON@[facility] Associate Infusion Nurse 10/02/24 documented as of this encounter Additional Source Comments The information contained in this document represents components of the legal health record. It is not the complete legal health record.[facility]
--- OUTSIDE RECORDS SUMMARY | 2024-11-20 11:57 | XMS_ITS | Encounter Summary ---
Author Organization [facility] Address [address] [place] [address] Phone Care Team Providers Care Operations Tech Name Role Phone Indigo DuSW Unavailable Grecia Bonilla MD Primary Care Provider Hermelinda Barajas MD Unavailable [phone] Cindi Shell EXAM PROCTOR Unavailable Zuri Ha RN Unavailable Sandra Ruiz@[facility] Carlos Alberto King MD, [place] Unavailable Patria Luevano RN Unavailable TOBIAS HYATT@[facility] Jennie Ferreira RN Unavailable ALISON@ [facility] Encounter Details Date Type Department Care Team (Late st Contact Info) Description 03/22/2023 Procedure Pass [facility] 70 [place] [address] Social History Tobacco Use Types Packs/Day Years [...] st Contact Info) Description 10/18/2024 Procedure Pass [facility] and Women's Radiology 70 [place] [address] 10/23/2024 Procedure Pass [facility] EKG 70 [place] [address] 10/23/2024 Procedure Pass [facility] EKG 70 [place] [address] 11/13/2024 Procedure Pass [address] [address] 11/13/2024 Procedure Pass [address] [address] 11/22/2024 1:00 PM EDT Telemedicine [facility] Endocrine, Diabetes, and Hypertension [address] [address] Svetlana Lucero, PharmD 75 [place] [address] nilam@[email or web address] 11/26/2024 1:00 PM EDT Social Work Social Work Department, [facility] [place] [facility] [place] [address] [address] Hermelinda Barajas MD [address] [place] [address] Pedro@[facility] Indigo Du, [place] [facility] 300 [place] [address] christina@[facility] 12/04/2024 7:30 AM EDT Blood Draw Laboratory Services, [address], 2nd [place], [place] Hermelinda Barajas MD 450 [facility] 1240 [place] [address] Pedro@[facility] 12/04/2024 8:30 AM EDT Office Visit [facility] Center for Thoracic Oncology, [address], 9th [place] [address] Cindi Shell CNP [address] [place] [address] Benedict east@[facility] Hermelinda Barajas MD [address] [place] [address] 1240 [place] [address] Pedro@[facility] 12/04/2024 9:30 AM EDT Infusion Infusion Therapy Services [facility] 9, [address], 9th [place] [address] Cindi Shell EXAM PROCTOR [address] [place] [address] Benedict east@[facility] Patria Luevano, BRIELLE [address] [place] [address] STEFANO@[facility] 12/25/2024 6:30 AM EDT Blood Draw Laboratory Services, [address], 2nd [place] [address] Cindi Shell EXAM PROCTOR 450 [place] [address] Benedict east@[facility] 12/25/2024 7:30 AM EDT Office Visit [facility] for Thoracic Oncology, [address], 9th [place] [address] Cindi Shell EXAM PROCTOR 450 [place] [address] Benedict east@[facility] 12/25/2024 8:30 AM EDT Infusion Infusion Therapy Services [place] [address], [address], 9th [place] [address] Cindi Shell EXAM PROCTOR [address] [place] [address] Benedict east@[facility] 01/11/2025 11:45 AM EST Appointment [address] [address] Hermelinda Barajas MD [address] [place] [address] 1240 [place] [address] Pedro@[facility] 01/15/2025 7:10 AM EST Blood Draw Laboratory Services, [address], 2nd [place] [address] Cindi Shell EXAM PROCTOR 450 [place] [address] Benedict east@[facility] 01/15/2025 8:00 AM EST Office Visit [facility] Center for Thoracic Oncology, [facility] 450 [facility], 9th [place] [address] Hermelinda Barajas MD 450 [facility] 1240 [place] [address] Pedro@[facility] 01/15/2025 9:00 AM EST Infusion Infusion Therapy Services [place] 9, [facility] 450 [facility], 9th [place] [address] Cindi Shell CNP 450 [place] [address] Benedict east@[facility] 01/18/2025 7:35 AM EST Hospital Encounter [facility] EKG 70 [place] [address] Guanakito Gallardo MD [address] [place] [address] [place] [address] [email or web address]3] 01/18/2025 8:30 AM EST Appointment [facility] 70 [place] [address] Odalis Jimenez PA-C 70 [facility] 5th [place] [address] [email or web address] 02/01/2025 8:40 AM EST Office Visit [facility] Otolaryngology 45 [facility] ASB2-2 [place] [address] Demetrio Armstrong MD 45 [place] [phone] [email or web address] 02/25/2025 9:30 AM EST Telemedicine [facility] Cardiovascular Clinic [address] [place] [address] Guanakito Gallardo MD [address] [place] [address] 07/04/2025 10:00 AM EDT Telemedicine [facility] Cardiovascular Clinic [address] [place] [address] Thiago Bean MD [address] [place] [address] [email or web address]@[facility] 10/18/2025 7:05 AM EDT Hospital Encounter [facility] EKG [address] [place] [address] Guanakito Gallardo MD [address] [place] [phone] [email or web address] Arrived documented as of this encounter Visit Diagnoses Not on filedocumented in this encounter Additional Health Concerns Infection Onset Date Last Indicated Resolved Time COVID-19 04/06/2023 04/06/2023 04/27/2023 1:21 AM EST CoV-Risk 07/17/2024 07/17/2024 07/28/2024 1:21 AM EDT documented as of this encounter Care Teams Operations Tech Relationship Specialty Start Date End Date Grecia Bonilla MD [address] [place] [address] [place] [address] PCP - General Internal Medicine 10/13/22 Indigo Du [facility] 300 [place] [address] [email or web address] Electrician Supervisor Oncology 07/27/22 Hermelinda Barajas MD [address] [place] [address] Mariah Shen [address] [place] [address] Pedro@[facility] Medical Oncology 11/29/22 Cindi Shell CNP [address] [place] [address] Fina@[facility] Gerontology 11/29/22 Zuri Ha RN [address] [place] [address] Milton@[facility] Primary Infusion Nurse 01/10/24 05/14/24 Carlos Alberto King MD, [place] [address] [place] [address] Department of Psychosocial Oncology and Palliative Care, [place] [address] Jaelyn@[facility] Hospice and Palliative Care 04/05/24 Patria Luevano, BRIELLE [address] [place] [address] STEFANO@[facility] Primary Infusion Nurse 05/15/24 Jennie Ferreira, BRIELLE [address] [place] [address] ALISON@[facility] Associate Infusion Nurse 10/02/24 documented as of this encounter Additional Source Comments The information contained in this document represents components of the legal health record. It is not the complete legal health record.[facility]
--- OUTSIDE RECORDS SUMMARY | 2024-11-20 11:57 | XMS_ITS | Encounter Summary ---
Author Organization [facility] Address [address] [place] [address] Phone Care Team Providers Care Block Sorter Name Role Phone Indigo Du GAS DISTRIBUTION AND EMERGENCY CLERK Unavailable Grecia Bonilla MD Primary Care Provider Hermelinda Barajas MD Unavailable [phone] Cindi Shell [facility] Unavailable [phone] Carlos Alberto [place] MD, [place] Unavailable Patria Luevano RN Unavailable TOBIAS [email or web address] Jennie Ferreira RN Unavailable [email or web address]@ [email or web address] Encounter Details Date Type Department Care Team (Late st Contact Info) Description 07/17/2024 Procedure Pass [facility], Ct Scan - [address] [address] Social History Tobacco Use Types Packs/Day Years [...] st Contact Info) Description 10/18/2024 Procedure Pass [facility] and Women's Radiology 70 [place] [address] 10/23/2024 Procedure Pass [facility] EKG 70 [place] [address] 10/23/2024 Procedure Pass [facility] EKG 70 [place] [address] 11/13/2024 Procedure Pass [address] [address] 11/13/2024 Procedure Pass [address] [address] 11/22/2024 1:00 PM EDT Telemedicine [facility] Endocrine, Diabetes, and Hypertension 221 [facility] 2nd [place] [address] Svetlana Lucero, PharmD 75 [place] [address] [email or web address] .[facility] 11/26/2024 1:00 PM EDT Social Work Social Work Department, [facility] [place] [facility] [place] 300 [facility] [address] 4th [place] [address] Hermelinda Barajas MD [address] [address] Pedro@[facility] Indigo Du, [facility] 300 [place] [address] [email or web address]@[email or web address] 12/04/2024 7:30 AM EDT Blood Draw Laboratory Services, [address], 2nd Floor [place], [place] Hermelinda Barajas MD [address] [place] [address] Pedro@[facility] 12/04/2024 8:30 AM EDT Office Visit [facility], [address], 9th [place] [address] Cindi Shell SUGAR CHIPPER MACHINE OPERATOR [address] [place] [address] Benedict east@[facility] Hermelinda Barajas MD [address] [place] [address] [place] [address] Pedro@[facility] 12/04/2024 9:30 AM EDT Infusion Infusion Therapy Services Yawkey 9, [facility] 450 [facility], 9th [place] [address] Cindi Shell SUGAR CHIPPER MACHINE OPERATOR 450 [place] [address] Benedict aest@[facility] Patria Luevano RN [address] [place] [address] STEFANO@[facility] 12/25/2024 6:30 AM EDT Blood Draw Laboratory Services, [address], 2nd [place] [address] Cindi Shell CNP [address] [place] [address] Benedict east@[facility] 12/25/2024 7:30 AM EDT Office Visit [facility], [address], 9th [place] [address] Cindi Shell CNP [address] [place] [address] Benedict east@[facility] 12/25/2024 8:30 AM EDT Infusion Infusion [facility] 9, [address], 9th [place] [address] Cindi Shell CNP [address] [place] [address] Benedict east@[facility] 01/11/2025 11:45 AM EST Appointment [facility], Ct Scan [address] [address] Hermelinda Barajas MD [address] [place] [address] 1240 [place] [address] Pedro@[facility] 01/15/2025 7:10 AM EST Blood Draw Laboratory Services, [facility] 450 [facility], 2nd [place] [address] Cindi Shell CNP 450 [place] [address] Benedict east@[facility] 01/15/2025 8:00 AM EST Office Visit [facility], [facility] 450 [facility], 9th [place] [address] Hermelinda Barajas MD [address] [place] [address] 1240 [place] [address] Pedro@[facility] 01/15/2025 9:00 AM EST Infusion Infusion Therapy Services Yawkey 9, [address], 9th [place] [address] Cindi Shell CNP [address] [place] [address] Benedict east@[facility] 01/18/2025 7:35 AM EST Hospital Encounter [facility] EKG 70 [place] [address] Guanakito Gallardo MD 75 [facility] [place] [address] Arrived 01/18/2025 8:30 AM EST Appointment [facility] Women's Radiology 70 [place] [address] Odalis Jimenez PA-C 70 [facility] 5th [place] [address] [email or web address] 02/01/2025 8:40 AM EST Office Visit [facility] Otolaryngology 45 [facility] ASB2-2 [place] [address] Demetrio [place] MD 45 [place] [phone] mak@[facility] 02/25/2025 9:30 AM EST Telemedicine [facility] Cardiovascular Clinic 70 [place] [address] Guanakito Gallardo MD [address] [place] [address] [email or web address] 07/04/2025 10:00 AM EDT Telemedicine [facility] Cardiovascular Clinic [address] [place] [address] Thiago Bean MD [address] [place] [address] [email or web address] 10/18/2025 7:05 AM EDT Hospital Encounter [facility] EKG 70 [place] [address] Guanakito Gallardo MD [address] [place] [address] [email or web address] Arrived documented as of this encounter Visit Diagnoses Not on filedocumented in this encounter Additional Health Concerns Infection Onset Date Last Indicated Resolved Time CoV-Risk 07/17/2024 07/17/2024 07/28/2024 1:21 AM EDT documented as of this encounter Care Teams Block Sorter Relationship Specialty Start Date End Date Grecia Bonilla MD [address] [place] [address] [place] [address] PCP - General Internal Medicine 10/13/22 Indigo Du, [facility] 300 [place] [address] [email or web address] Precision Lens Polisher Oncology 07/27/22 Hermelinda Barajas MD [address] [place] [address] 1240 [place] [address] Pedro@[facility] Medical Oncology 11/29/22 Cindi Shell CNP [address] [place] [address] Fina@[email or web address] Gerontology 11/29/22 Carlos Alberto [place] MD, [place] [address] [place] [address] Department of Psychosocial Oncology and Palliative Care, [place] [address] Jaelyn@[facility] Hospice and Palliative Care 04/05/24 Patria Luevano, BRIELLE [address] [place] [address] STEFANO@[facility] Primary Infusion Nurse 05/15/24 Jennie Ferreira RN [address] [place] [address] ALISON@[facility] Associate Infusion Nurse 10/02/24 documented as of this encounter Additional Source Comments The information contained in this document represents components of the legal health record. It is not the complete legal health record.[facility]
--- OUTSIDE RECORDS SUMMARY | 2024-11-20 11:57 | XMS_ITS | Encounter Summary ---
Author Organization [facility] Address [address] [place] [address] Phone Care Team Providers Care Systems Architect Name Role Phone Aubrey Taylor MD Primary Care Provider [phone] Indigo Du [facility] Unavailable [phone] Jn Cline DO Primary Care Provider Aubrey Taylor MD Primary Care Provider [phone] Marilynn Daly NP Primary Care Provider Unavailab Grecia Rosado MD Primary Care Provider Hermelinda Barajas MD Unavailable [phone] Cindi Shell KNITTER MACHINE Unavailable [phone] Zuri Ha RN Unavailable Sandra Ruiz@[email or web address] Carlos Alberto [place], [place] Unavailable [phone] Patria Luevano RN Unavailable TOBIAS [email or web address] Jennie Ferreira RN Unavailable ALISON@ [email or web address] Encounter Details Date Type Department Care Team (Late st Contact Info) Description 06/25/2022 Procedure Pass [facility] Women[facility]iology 70 [place] [address] Social History Tobacco Use Types Packs/Day Years [...] Procedure Pass [facility] 70 [place] [address] 10/23/[address] [facility] EKG 70 [place] [address] 10/23/[address] [facility] EKG 70 [place] [address] 11/13/2024 Procedure Pass [address] [address] 11/13/2024 Procedure Pass [address] [address] 11/22/2024 1:[address] [facility] Endocrine, Diabetes, and Hypertension [address] [address] Svetlana Lucero, PharmD 75 [place] [address] [email or web address] 11/26/2024 1:00 PM EDT Social Work Social Work Department, [facility] [place] [facility] [place] 300 [facility] 4th [place] [address] Hermelinda Barajas MD 450 [facility] [address] [place] [address] Pedro@[facility] Indigo Du, SPORTS AGENT 300 [place] [address] christina@[email or web address] 12/04/2024 7:30 AM EDT Blood Draw Laboratory Services, [address], 2nd [place], [place] Hermelinda Barajas MD [address] [place] [address] 1240 [place] [address] Pedro@[facility] 12/04/2024 8:30 AM EDT Office Visit [facility], [address], 9th [place] [address] Cindi Shell KNITTER MACHINE [address] [place] [address] Benedict east@[facility] Hermelinda Barajas MD [address] [place] [address] Pedro@[facility] 12/04/2024 9:30 AM EDT Infusion Infusion Therapy Services Yawkey 9, [address], 9th [place] [address] Cindi Shell KNITTER MACHINE [address] [place] [address] Benedict east@[facility] Patria Luevano, BRIELLE 450 [place] [address] STEFANO@[facility] 12/25/2024 6:30 AM EDT Blood Draw Laboratory Services, [address], 2nd [place] [address] Cindi Shell CNP [address] [place] [address] Benedict east@[facility] 12/25/2024 7:30 AM EDT Office Visit [facility], [address], 9th [place] [address] Cindi Shell CNP [address] [place] [address] Benedict east@[facility] 12/25/2024 8:30 AM EDT Infusion Infusion Therapy Services Yawkey 9, [address], 9th [place] [address] Cindi Shell CNP [address] [place] [address] Benedict east@[facility] 01/11/2025 11:45 AM EST Appointment [facility], [address] [address] Hermelinda Barajas MD [address] [place] [address] 1240 [place] [address] Pedro@[facility] 01/15/2025 7:10 AM EST Blood Draw Laboratory Services, [address], 2nd [place] [address] Cindi Shell KNITTER MACHINE 450 [place] [address] Benedict east@[facility] 01/15/2025 8:00 AM EST Office Visit [facility], [facility] 450 [facility], 9th [place] [address] Hermelinda Barajas MD 450 [facility] 1240 [place] [address] Pedro@[facility] 01/15/2025 9:00 AM EST Infusion Infusion Therapy Services [address] 450 [facility], 9th [place] [address] Cindi Shell CNP 450 [place] [address] Benedict east@[facility] 01/18/2025 7:35 AM EST Hospital Encounter [facility] EKG 70 [place] [address] Guanakito Gallardo MD [address] [facility] [place] [address] [facility] 01/18/2025 8:30 AM EST Appointment [facility] 70 [place] [address] Odalis Jimenez PA-C 70 [facility] 5th [place] [address] [email or web address] 02/01/2025 8:40 AM EST Office Visit [facility] Otolaryngology 45 [facility] ASB2-2 [place] [address] Demetrio [place] MD 45 [place] [phone] [email or web address] 02/25/2025 9:30 AM EST Telemedicine [facility] Cardiovascular Clinic [address] [place] [address] Guanakito Gallardo MD [address] [place] [phone] 07/04/2025 10:00 AM EDT Telemedicine [facility] Cardiovascular Clinic [address] [place] [address] Thiago Bean MD [address] [place] [phone] [email or web address] 10/18/2025 7:05 AM EDT Hospital Encounter [facility] EKG 70 [place] [address] Guanakito Gallardo MD [address] [place] [address] [email or web address] Arrived documented as of this encounter Visit Diagnoses Not on filedocumented in this encounter Additional Health Concerns Infection Onset Date Last Indicated Resolved Time COVID-19 04/06/2023 04/06/2023 04/27/2023 1:21 AM EST CoV-Risk 07/17/2024 07/17/2024 07/28/2024 1:21 AM EDT documented as of this encounter Care Teams Systems Architect Relationship Specialty Start Date End Date Aubrey Taylor MD [address] [place] [address] PCP - General Internal Medicine 05/28/22 08/03/22 Jn Cline DO [address] [address] [email or web address] PCP - General Hospitalist 08/04/22 08/12/22 Aubrey Taylor MD [address] [place] [address] PCP - General Internal Medicine 08/13/22 09/14/22 Marilynn Daly NP PCP - General Nurse Practitioner 09/15/22 10/12/22 Grecia Bonilla MD [address] [place] [address] [place] [address] PCP - General Internal Medicine 10/13/22 Indigo Du, [facility] 300 [place] [address] [email or web address] Credentials Specialist Oncology 07/27/22 Hermelinda Barajas MD [address] [place] [address] Pedro@[facility] Medical Oncology 11/29/22 Cindi Shell CNP [address] [place] [address] Fina@[email or web address].ON [facility] Gerontology 11/29/22 Zuri Ha, BRIELLE [address] [place] [address] Milton@[facility] Primary Infusion Nurse 01/10/24 05/14/24 Carlos Alberto [place] MD, [place] [address] [place] [address] Department of Psychosocial Oncology and Palliative Care, [place] [phone] Jaelyn@[facility] Hospice and Palliative Care 04/05/24 Patria Luevano, BRIELLE [address] [place] [address] STEFANO@[facility] Primary Infusion Nurse 05/15/24 Jennie Ferreira RN [address] [place] [address] ALISON@[facility] Associate Infusion Nurse 10/02/24 documented as of this encounter Additional Source Comments The information contained in this document represents components of the legal health record. It is not the complete legal health record.[facility]
--- OUTSIDE RECORDS SUMMARY | 2024-11-20 11:57 | XMS_ITS | Encounter Summary ---
Author Organization [facility] Address [address] [place] [address] Phone Care Team Providers Care Optical Goods Drill Operator Name Role Phone Indigo DuSW Unavailable Grecia Bonilla MD Primary Care Provider Hermelinda Barajas MD Unavailable [phone] Cindi Shell CAR HOPPER Unavailable Zuri Ha RN Unavailable Sandra Ruiz@[email or web address] Carlos Alberto [place] MD, [place] Unavailable Patria Luevano RN Unavailable TOBIAS [email or web address] Jennie Ferreira RN Unavailable ALISON@ [facility] Encounter Details Date Type Department Care Team (Late st Contact Info) Description 03/22/2023 Procedure Pass [facility] Echocardiography 70 [place] [address] Social History Tobacco Use Types Packs/Day Years [...] st Contact Info) Description 10/18/2024 Procedure Pass [facility] and Women's Radiology 70 [place] [address] 10/23/2024 Procedure Pass [facility] EKG 70 [place] [address] 10/23/2024 Procedure Pass [facility] EKG 70 [place] [address] 11/13/2024 Procedure Pass [address] [address] 11/13/2024 Procedure Pass [address] [address] 11/22/2024 1:00 PM EDT Telemedicine [facility] Endocrine, Diabetes, and Hypertension [address] [address] Svetlana Lucero, PharmD 75 [place] [address] [email or web address] 11/26/2024 1:00 PM EDT Social Work Social Work Department, [facility] [place] [facility] [place] [address] [address] Hermelinda Barajas MD 450 [facility] [address] [place] [address] [email or web address] Indigo Du, [facility] 300 [place] [address] [email or web address] 12/04/2024 7:30 AM EDT Blood Draw Laboratory Services, [address], 2nd [place], [place] Hermelinda Barajas MD [address] [place] [address] 1240 [place] [address] Pedro@[facility] 12/04/2024 8:30 AM EDT Office Visit [facility] for Thoracic Oncology, [address], 9th [place], [place] [phone] Cindi Shell CNP [address] [place] [phone] Benedict east@[facility] Hermelinda Barajas MD [address] [place] [address] Pedro@[facility] 12/04/2024 9:30 AM EDT Infusion Infusion Therapy Services wkey 9, [address], 9th [place] [address] Cindi Shell CNP [address] [place] [phone] Benedict east@[facility] Patria Luevano, BRIELLE [address] [place] [address] STEFANO@[facility] 12/25/2024 6:30 AM EDT Blood Draw Laboratory Services, [address], 2nd [place], [place] Cindi Shell CNP 450 [place] [address] Benedict east@[facility] 12/25/2024 7:30 AM EDT Office Visit [facility] for [facility] On[facility], [address], 9th [place] [address] Cindi Shell CNP [address] [place] [address] Benedict east@[facility] 12/25/2024 8:30 AM EDT Infusion Infusion Therapy Services [place] 9, [address], 9th [place] [address] Cindi Shell CNP [address] [place] [address] Benedict east@[facility] 01/11/2025 11:45 AM EST Appointment [facility], [address] [address] Hermelinda Barajas MD [address] [place] [address] 1240 [place] [address] Pedro@[facility] 01/15/2025 7:10 AM EST Blood Draw Laboratory Services, [address], 2nd [place] [address] Cindi Shell CNP [address] [place] [address] Benedict east@[facility] 01/15/2025 8:00 AM EST Office Visit [facility] for [facility] On[facility], [facility] 450 [facility], 9th [place] [address] Hermelinda Barajas MD 450 [facility] 1240 [place] [address] Pedro@[facility] 01/15/2025 9:00 AM EST Infusion Infusion Therapy Services Yawkey 9, [facility] 450 [facility], 9th [place] [address] Cindi Shell CNP 450 [place] [address] Benedict east@[facility] 01/18/2025 7:35 AM EST Hospital Encounter [facility] EKG 70 [place] [address] Guanakito Gallardo MD [address] [place] [address] Cardiology [place] [address] [email or web address] 01/18/2025 8:30 AM EST Appointment [facility] Women[facility] Radiology 70 [place] [address] Odalis Jimenez PA-C 70 [facility] 5th [place] [address] [email or web address] 02/01/2025 8:40 AM EST Office Visit [facility] Otolaryngology 45 [facility] ASB2-2 [place] [address] Demetrio [place] MD 45 [place] [phone] mak@[facility] 02/25/2025 9:30 AM EST Telemedicine [facility] Cardiovascular Clinic 70 [place] [address] Guanakito Gallardo MD [address] [place] [address] 07/04/2025 10:00 AM EDT Telemedicine [facility] Cardiovascular Clinic 70 [place] [address] Thiago Bean MD [address] [place] [address] [email or web address]@[facility] 10/18/2025 7:05 AM EDT Hospital Encounter [facility] EKG 70 [place] [address] Guanakito Gallardo MD [address] [place] [phone] [email or web address] Arrived documented as of this encounter Visit Diagnoses Not on filedocumented in this encounter Additional Health Concerns Infection Onset Date Last Indicated Resolved Time COVID-19 04/06/2023 04/06/2023 04/27/2023 1:21 AM EST CoV-Risk 07/17/2024 07/17/2024 07/28/2024 1:21 AM EDT documented as of this encounter Care Teams Optical Goods Drill Operator Relationship Specialty Start Date End Date Grecia Bonilla MD [address] [place] [address] [place] [address] PCP - General Internal Medicine 10/13/22 Indigo Du, [facility] 300 [place] [address] [email or web address] Import Export Manager Oncology 07/27/22 Hermelinda Barajas MD [address] [place] [address] Mariah Shen [address] [place] [address] [email or web address] Medical Oncology 11/29/22 Cindi Shell CNP [address] [place] [address] Fina@[facility] Gerontology 11/29/22 Zuri Ha RN [address] [place] [address] Milton@[facility] Primary Infusion Nurse 01/10/24 05/14/24 Carlos Alberto [place] MD, [place] [address] [place] [address] Department of Psychosocial Oncology and Palliative Care, [place] [phone] Jaelyn@[facility] Hospice and Palliative Care 04/05/24 Patria Luevano, BRIELLE [address] [place] [address] STEFANO@[facility] Primary Infusion Nurse 05/15/24 Jennie Ferreira, BRIELLE [address] [place] [address] ALISON@[facility] Associate Infusion Nurse 10/02/24 documented as of this encounter Additional Source Comments The information contained in this document represents components of the legal health record. It is not the complete legal health record.[facility]
--- OUTSIDE RECORDS SUMMARY | 2024-11-20 11:57 | XMS_ITS | Encounter Summary ---
Author Organization [facility] Address [address] [place] [address] Phone Care Team Providers Care Room Cleaner Name Role Phone Indigo Du STATION MANAGER Unavailable Grecia Bonilla MD Primary Care Provider Hermelinda Barajas MD Unavailable [phone] Cindi Shell [facility] Unavailable Carlos Alberto King [place], [place] Unavailable [phone] Patria Luevano RN Unavailable TOBIAS [email or web address] Jennie Ferreira RN Unavailable ALISON@ [facility] Encounter Details Date Type Department Care Team (Late st Contact Info) Description 07/17/2024 Procedure Pass [facility], Ct Scan - [address] [address] Social History Tobacco Use Types Packs/Day Years [...] [facility] [address] [place] [address] 10/23/2024 Procedure Pass [facility] EKG [address] [place] [address] 10/23/2024 Procedure Pass [facility] EKG [address] [place] [address] 11/13/2024 Procedure Pass [address] [address] 11/13/2024 Procedure Pass [address] [address] 11/22/2024 1:00 PM EDT Telemedicine [facility] Endocrine, Diabetes, and Hypertension [address] [employer] 2nd [place] [address] Svetlana Lucero, PharmD 75 [place] [address] [email or web address] 11/26/2024 1:00 PM EDT Social Work Social Work Department, [facility] [place] [facility] 300 [facility] 4th [place] [address] Hermelinda Barajas MD [address] [address] Pedro@[facility] Indigo Du, [facility] 300 [place] [address] [email or web address] 12/04/2024 7:30 AM EDT Blood Draw Laboratory Services, [address], 2nd Floor [place], [place] Hermelinda Barajas MD [address] [place] [address] Pedro@[facility] 12/04/2024 8:30 AM EDT Office Visit [facility], [address], 9th [place] [address] Cindi Shell CONSTRUCTION EQUIPMENT OVERHAULER [address] [place] [address] Benedict east@[facility] Hermelinda Barajas MD [address] [place] [address] [place] [address] Pedro@[facility] 12/04/2024 9:30 AM EDT Infusion Infusion Therapy Services Yawkey 9, [facility] 450 [facility], 9th [place] [address] Cindi Shell CONSTRUCTION EQUIPMENT OVERHAULER 450 [place] [address] Benedict east@[facility] Patria Luevano RN [address] [place] [address] [email or web address]@[facility] 12/25/2024 6:30 AM EDT Blood Draw Laboratory Services, [address], 2nd [place] [address] Cindi Shell CNP [address] [place] [address] Benedict east@[facility] 12/25/2024 7:30 AM EDT Office Visit [facility], [address], 9th [place] [address] Cindi Shell CNP [address] [place] [address] Benedict east@[facility] 12/25/2024 8:30 AM EDT Infusion [facility] 9, [address], 9th [place] [address] Cindi Shell CNP [address] [place] [address] Benedict east@[facility] 01/11/2025 11:45 AM EST Appointment [facility], Ct Scan [address] [address] Hermelinda Barajas MD [address] [place] [address] 1240 [place] [address] Pedro@[facility] 01/15/2025 7:10 AM EST Blood Draw Laboratory Services, [facility] 450 [facility], 2nd [place] [address] Cindi Shell CNP 450 [place] [address] Benedict east@[facility] 01/15/2025 8:00 AM EST Office Visit [facility], [facility] 450 [facility], 9th [place] [address] Hermelinda Barajas MD [address] [place] [address] 1240 [place] [address] Pedro@[facility] 01/15/2025 9:00 AM EST Infusion Infusion Therapy Services Y[facility]key 9, [address], 9th [place] [address] Cindi Shell CNP [address] [place] [address] Benedict east@[facility] 01/18/2025 7:35 AM EST Hospital Encounter [facility] EKG 70 [place] [address] Guanakito Gallardo MD [address] [facility] [place] [address] Arrived 01/18/2025 8:30 AM EST Appointment [facility] Women[facility] 70 [place] [address] Odalis Jimenez PA-C 70 [facility] 5th [place] [address] [email or web address] 02/01/2025 8:40 AM EST Office Visit [facility] Otolaryngology 45 [facility] ASB2-2 [place] [address] Demetrio Armstrong MD 45 [place] [phone] [email or web address] 02/25/2025 9:30 AM EST Telemedicine [facility] 70 [place] [address] Guanakito Gallardo MD [address] [place] [address] [email or web address] 07/04/2025 10:00 AM EDT Telemedicine [facility]ovascular Clinic [address] [place] [address] Thiago Bean MD [address] [place] [address] [email or web address] 10/18/2025 7:05 AM EDT Hospital Encounter [facility] EKG 70 [place] [address] Guanakito Gallardo MD [address] [place] [address] [email or web address] Arrived documented as of this encounter Visit Diagnoses Not on filedocumented in this encounter Additional Health Concerns Infection Onset Date Last Indicated Resolved Time CoV-Risk 07/17/2024 07/17/2024 07/28/2024 1:21 AM EDT documented as of this encounter Care Teams Room Cleaner Relationship Specialty Start Date End Date Grecia Bonilla MD [address] [place] [address] [place] [address] PCP - General Internal Medicine 10/13/22 Indigo Du, [facility] 300 [place] [address] [email or web address] An/Syq 13 Nav/C2 Operator Oncology 07/27/22 Hermelinda Barajas MD [address] [place] [address] 1240 [place] [address] Pedro@[facility] Medical Oncology 11/29/22 Cindi Shell CNP [address] [place] [address] Fina@[email or web address] Gerontology 11/29/22 Carlos Alberto King MD, [place] [address] [place] [address] Department of Psychosocial Oncology and Palliative Care, [place] [address] Jaelyn@[facility] Hospice and Palliative Care 04/05/24 Patria Luevano, BRIELLE [address] [place] [address] STEFANO@[facility] Primary Infusion Nurse 05/15/24 Jennie Ferreira RN [address] [place] [address] ALISON@[facility] Associate Infusion Nurse 10/02/24 documented as of this encounter Additional Source Comments The information contained in this document represents components of the legal health record. It is not the complete legal health record.[facility]
--- OUTSIDE RECORDS SUMMARY | 2024-11-20 11:57 | XMS_ITS | Encounter Summary ---
Author Organization [facility] Address [address] [facility] [address] [place] [address] Phone Care Team Providers Care Bisque Grader Name Role Phone Indigo DuSW Unavailable [phone] Grecia Bonilla MD Primary Care Provider Hermelinda Barajas MD Unavailable [phone] Cindi Shell CUFF MATCHER Unavailable Zuri Ha RN Unavailable Sandra [email or web address] Carlos Alberto King MD, [place] Unavailable Patria Luevano RN Unavailable TOBIAS [email or web address] Jennie Ferreira RN Unavailable ALISON@ [facility] Encounter Details Date Type Department Care Team (Late st Contact Info) Description 03/21/2024 Telephone [facility] Cardiovascular Clinic 70 [place] [address] Thiago Bean MD 75 [place], [place] [phone] [email or web address] Social History Tobacco Use Types Packs/Day [...] st Contact Info) Description 10/18/2024 [facility] [address] [place] [address] 10/23/2024 Procedure Pass [facility] EKG 70 [place] [address] 10/23/2024 Procedure Pass [facility] EKG 70 [place] [address] 11/13/2024 Procedure Pass [address] [address] 11/13/2024 Procedure Pass [address] [address] 11/22/2024 1:00 PM EDT Telemedicine [facility] Endocrine, Diabetes, and Hypertension 221 [facility] 2nd [place] [address] Svetlana Lucero, PharmD 75 [place] [address] [email or web address] 11/26/2024 1:00 PM EDT Social Work Social Work Department, [facility] 300 [facility] 4th [place] [address] Hermelinda Barajas MD [address] [place] [address] Pedro@[facility] Indigo Du, [facility] 300 [place] [address] christina@[facility] 12/04/2024 7:30 AM EDT Blood Draw Laboratory Services, [address], 2nd [place] [address] Hermelinda Barajas MD [address] [place] [address] Pedro@[facility] 12/04/2024 8:30 AM EDT Office Visit [facility], [address], 9th [place] [address] Cindi Shell CNP [address] [place] [address] Benedict east@[facility] Hermelinda Barajas MD [address] [place] [address] Pedro@[facility] 12/04/2024 9:30 AM EDT Infusion Infusion Therapy Services [place] [address], [address], 9th [place] [address] Cindi Shell CNP [address] [place] [address] Benedict east@[facility] Patria Luevano, BRIELLE [address] [place] [address] STEFANO@[facility] 12/25/2024 6:30 AM EDT Blood Draw Laboratory Services, [address], 2nd [place] [address] Cindi Shell CNP [address] [place] [address] Benedict east@[facility] 12/25/2024 7:30 AM EDT Office Visit [facility], [address], 9th [place] [address] Cindi Shell CNP [address] [place] [address] Benedict east@[facility] 12/25/2024 8:30 AM EDT Infusion Infusion Therapy Services Yawkey 9, [address], 9th [place] [address] Cindi Shell CNP [address] [place] [address] Benedict east@[facility] 01/11/2025 11:45 AM EST Appointment [facility], Ct Scan - [facility] 30 [place] [address] Hermelinda Barajas MD 450 [facility] 1240 [place] [address] Pedro@[facility] 01/15/2025 7:10 AM EST Blood Draw Laboratory Services, [facility] 450 [facility], 2nd [place] [address] Cindi Shell CNP 450 [place] [address] Benedict east@[facility] 01/15/2025 8:00 AM EST Office Visit [facility] for Thor[facility] On[facility], [facility] 450 [facility], 9th [place] [address] Hermelinda Barajas MD [address] [address] Pedro@[facility] 01/15/2025 9:00 AM EST Infusion Infusion Therapy Services Yawkey 9, [facility] 450 [facility], 9th [place] [address] Cindi Shell CUFF MATCHER 450 [place] [address] Benedict east@[facility] 01/18/2025 7:35 AM EST Hospital Encounter [facility] EKG 70 [place] [address] Guanakito Gallardo MD [address] [place] [address] [place] [address] Arrived 01/18/2025 8:30 AM EST Appointment [facility] 70 [place] [address] Odalis Jimenez PA-C 70 [facility] 5th [place] [address] [email or web address] 02/01/2025 8:40 AM EST Office Visit [facility] Otolaryngology 45 [facility] ASB2-2 [place] [address] Demetrio Armstrong MD 45 [place] [phone] [email or web address] 02/25/2025 9:30 AM EST Telemedicine [facility] Cardiovascular Clinic 70 [place] [address] Guanakito Gallardo MD [address] [place] [address] [place] [address] [email or web address] 07/04/2025 10:00 AM EDT Telemedicine [facility] Cardiovascular Clinic 70 [place] [address] Thiago Bean MD [address] [place] [address] [email or web address] 10/18/2025 7:05 AM EDT Hospital Encounter [facility] EKG 70 [place] [address] Guanakito Gallardo MD [address] [place] [address] [place] [address] [email or web address] Arrived documented as of this encounter Visit Diagnoses Not on filedocumented in this encounter Additional Health Concerns Infection Onset Date Last Indicated Resolved Time CoV-Risk 07/17/2024 07/17/2024 07/28/2024 1:21 AM EDT documented as of this encounter Care Teams Bisque Grader Relationship Specialty Start Date End Date Grecia Bonilla MD [address] [place] [address] [place] [address] PCP - General Internal Medicine 10/13/22 Indigo Du, [facility] 300 [place] [address] [email or web address] Oncology 07/27/22 Hermelinda Barajas MD [address] [place] [address] Pedro@[facility] Medical Oncology 11/29/22 Cindi Shell CNP [address] [place] [address] Fina@[email or web address] Gerontology 11/29/22 Zuri Ha RN [address] [place] [address] Milton@[facility] Primary Infusion Nurse 01/10/24 05/14/24 Carlos Alberto King MD, [place] [address] [place] [address] Department of Psychosocial Oncology and Palliative Care, [place] [address] Jaelyn@[facility] Hospice and Palliative Care 04/05/24 Patria Luevano, BRIELLE [address] [place] [address] STEFANO@[facility] Primary Infusion Nurse 05/15/24 Jennie Ferreira RN [address] [place] [address] [email or web address] Associate Infusion Nurse 10/02/24 documented as of this encounter Additional Source Comments The information contained in this document represents components of the legal health record. It is not the complete legal health record.[facility]
--- OUTSIDE RECORDS SUMMARY | 2024-11-20 11:58 | XMS_ITS | Encounter Summary ---
Author Organization [facility] Address [address] [facility] [facility] [address] [place] [address] Phone Care Team Providers Care Drop Count Associate Name Role Phone Indigo DuSW Unavailable Grecia Bonilla MD Primary Care Provider Hermelinda Barajas MD Unavailable [phone] Cindi Shell [facility] Unavailable Carlos Alberto King MD, [place] Unavailable Patria Luevano RN Unavailable TOBIAS [email or web address] Jennie Ferreira RN Unavailable ALISON@ [email or web address] Reason for Visit * Reason Onset Date Comments Care Coordination 11/20/2024 Encounter Details Date Type Department Care Team (Late st Contact Info) Description 11/20/2024 Telephone [facility] Center for Thoracic Oncology, [facility] 450 [facility], 9th [place] [address] Helena Garnica, RN [address] [place] [address] [email or web address] [email or web address] Care Coordination Social History Tobacco Use Types Packs/Day Years [...] as of this encounter Progress Notes * Helena Garnica RN - 11/20/2024 9:44 AM EDT Jesse called to ask if he can take Berberine? LAVERNE Shell and Saray Marsh BCOP both made aware. Per Saray this is fine. No contraindications noted. Pt made aware and had no further questions. documented in this encounter Plan of Treatment Upcoming Encounters Date Type Department Care Team (Late st Contact Info) Description 10/18/2024 Procedure Pass [facility] 70 [place] [address] 10/23/[address] [facility] EKG 70 [place] [address] 10/23/[address] [facility] EKG 70 [place] [address] 11/13/2024 Procedure Pass [address] [address] 11/13/2024 Procedure Pass [address] [address] 11/22/2024 1:[address] [facility] Endocrine, Diabetes, and Hypertension 221 [facility] 2nd [place] [address] Svetlana Lucero, PharmD 75 [place] [address] [email or web address] 11/26/2024 1:00 PM EDT Social Work Social Work Department, [facility] at [address] [address] Hermelinda Barajas MD [address] [address] Pedro@[facility] Indigo Du, [facility] 300 [place] [address] [email or web address] 12/04/2024 7:30 AM EDT Blood Draw Laboratory Services, [facility] 450 [facility], 2nd [place] [address] Hermelinda Barajas MD [address] [address] Pedro@[facility] 12/04/2024 8:30 AM EDT Office Visit [facility] Center for Thoracic Oncology, [facility] 450 [facility], 9th [place] [address] Cindi Shell, SR. LOGISTICS ANALYST 450 [place] [address] Benedict east@[facility] Hermelinda Barajas MD [address] [place] [address] 1240 [place] [address] [email or web address] 12/04/2024 9:30 AM EDT Infusion Infusion Therapy Services Yawkey 9, [address], 9th [place] [address] Cindi Shell CNP [address] [place] [address] Benedict east@[facility] Patria Luevano, BRIELLE [address] [place] [address] STEFANO@[facility] 12/25/2024 6:30 AM EDT Blood Draw Laboratory Services, [address], 2nd [place] [address] Cindi Shell CNP [address] [place] [address] Benedict east@[facility] 12/25/2024 7:30 AM EDT Office Visit [facility] Center for Thoracic Oncology, [address], 9th [place] [address] Cindi Shell CNP [address] [place] [address] Benedict east@[facility] 12/25/2024 8:30 AM EDT Infusion Infusion Therapy Services Yawkey 9, [facility] 450 [facility], 9th [place] [address] Cindi Shell SR. LOGISTICS ANALYST 450 [place] [address] Benedict east@[facility] 01/11/2025 11:45 AM EST Appointment [facility], [address] [address] Hermelinda Barajas MD [address] [place] [address] 1240 [place] [address] Pedro@[facility] 01/15/2025 7:10 AM EST Blood Draw Laboratory Services, [address], 2nd [place] [address] Cindi Shell SR. LOGISTICS ANALYST 450 [place] [address] Benedict east@[facility] 01/15/2025 8:00 AM EST Office Visit [facility] Center for Thoracic Oncology, [facility] 450 [facility], 9th [place] [address] Hermelinda Barajas MD [address] [place] [address] 1240 [place] [address] Pedro@[facility] 01/15/2025 9:00 AM EST Infusion Infusion Therapy Services Yawkey 9, [facility] 450 [facility], 9th [place] [address] Cindi Shell, SR. LOGISTICS ANALYST 450 [facility] [place] [address] Benedict [email or web address] 01/18/2025 7:35 AM EST Hospital Encounter [facility] EKG 70 [place] [address] Guanakito Gallardo MD [address] [place] [address] [place] [address] [email or web address] Arrived 01/18/2025 8:30 AM EST Appointment [facility] 70 [place] [address] Odalis Jimenez PA-C 70 [facility] 5th [place] [address] [email or web address] 02/01/2025 8:40 AM EST Office Visit [facility] Otolaryngology 45 [facility] ASB2-2 [place] [address] Demetrio Armstrong MD [address] [place] [phone] [email or web address] 02/25/2025 9:[address] [facility] Cardiovascular Clinic [address] [place] [address] Guanakito Gallardo MD [address] [place] [address] [place] [address] [email or web address] 07/04/2025 10:[address] [facility] Cardiovascular Clinic [address] [place] [address] Thiago Bean MD [address] [place] [address] [email or web address] 10/18/2025 7:05 AM EDT Hospital Encounter [facility] EKG 70 [place] [address] Guanakito Gallardo MD [address] [place] [address] [place] [address] [email or web address] Arrived documented as of this encounter Visit Diagnoses Not on filedocumented in this encounter Care Teams Drop Count Associate Relationship Specialty Start Date End Date Grecia Bonilla MD [address] [place] [address] [place] [address] PCP - General Internal Medicine 10/13/22 Indigo Du, [facility] 300 [place] [address] [email or web address] Web Producer Oncology 07/27/22 Hermelinda Barajas MD [address] [place] [address] Pedro@[email or web address] Medical Oncology 11/29/22 Cindi Shell CNP [address] [place] [address] Fina@[facility] Gerontology 11/29/22 Carlos Alberto King MD, [place] [address] [place] [address] Department of Psychosocial Oncology and Palliative Care, [place] [phone] Jaelyn@[facility] Hospice and Palliative Care 04/05/24 Patria Luevano, BRIELLE [address] [place] [address] [email or web address]@[facility] Primary Infusion Nurse 05/15/24 Jennie Ferreira, RN [address] [place], [place] [id number] [email or web address]@[email or web address] Associate Infusion Nurse 10/02/24 documented as of this encounter Additional Source Comments The information contained in this document represents components of the legal health record. It is not the complete legal health record.[facility]
--- OUTSIDE RECORDS SUMMARY | 2024-11-20 11:58 | XMS_ITS | Patient Health Record ---
Author Organization [facility] Address [address] [place] [address] Care Team Providers Care Guyline Operator Name Role Phone NO, PCP Primary Care Provider [phone] [facility], [facility] Unavailable [phone] Reason For Referral No Information Plan Of Treatment No Information Insurance Providers Payer Name Payer Address Payer Phone Subscriber Number Group Number Insured Name Patient Relationship to Insured Coverage Start Date Coverage End Date [place] [facility] [address] [place] [address] [id number] Jesse Patrick Self - patient is the insured 5 [place] Medicaid Standard [address] [place] [address] [id number] Jesse Patrick Self - patient is the insured 5
--- OUTSIDE RECORDS SUMMARY | 2024-11-20 11:58 | XMS_ITS | Encounter Summary ---
Author Organization [facility] Address [address] [place] [address] Phone Care Team Providers Care Coating Machine Operator Name Role Phone Indigo DuSW Unavailable [phone] Grecia Bonilla MD Primary Care Provider Hermelinda Barajas MD Unavailable [phone] Cindi Shell DEBRANDER Unavailable [phone] Zuri Ha RN Unavailable Sandra [email or web address] Carlos Alberto King MD, [place] Unavailable [phone] Patria Luevano RN Unavailable TOBIAS [email or web address] Jennie Ferreira RN Unavailable [email or web address]@ [email or web address] Encounter Details Date Type Department Care Team (Late st Contact Info) Description 01/14/2023 Procedure Pass [facility] Endoscopy Department [address] [place] [address] Social History Tobacco Use Types Packs/Day Years [...] st Contact Info) Description 10/18/2024 Procedure Pass [facility] [address] [place] [address] 10/23/2024 Procedure Pass [facility] EKG [address] [place] [address] 10/23/2024 Procedure Pass [facility] EKG [address] [place] [address] 11/13/2024 Procedure Pass [address] [address] 11/13/2024 Procedure Pass [address] [address] 11/22/2024 1:00 PM EDT Telemedicine [facility] Endocrine, Diabetes, and Hypertension [address] [address] Svetlana Lucero, PharmD [address] [place] [address] [email or web address] 11/26/2024 1:00 PM EDT Social Work Social Work Department, [facility] [place] [address] [address] Hermelinda Barajas MD [address] [place] [address] [email or web address] Indigo Du, [facility] [address] [place] [address] [email or web address] 12/04/2024 7:30 AM EDT Blood Draw Laboratory Services, [address], 2nd [place], [place] Hermelinda Barajas MD [address] [place] [address] [place] [address] Pedro@[email or web address] 12/04/2024 8:30 AM EDT Office Visit [facility] Center for Thoracic Oncology, [address], [address]th [place], [place] [phone] Cindi Shell CNP [address] [place] [address] Benedict east@[facility] Hermelinda Barajas MD [address] [place] [address] 12[address] [place] [address] Pedro@[facility] 12/04/2024 9:30 AM EDT Infusion [facility] 9, [address], 9th [place] [address] Cindi Shell CNP [address] [place] [address] Benedict east@[facility] Patria Luevano, BRIELLE [address] [place] [address] [email or web address] 12/25/2024 6:30 AM EDT Blood Draw Laboratory Services, [address], 2nd [place], [place] Cindi Shell CNP [facility] [place] [address] Benedict east@[facility] 12/25/2024 7:30 AM EDT Office Visit [facility], [address], 9th [place] [address] Cindi Shell DEBRANDER [address] [place] [address] Benedict east@[facility] 12/25/2024 8:30 AM EDT Infusion Infusion Therapy Services [place] [address], [address], 9th [place] [address] Cindi Shell DEBRANDER [address] [place] [address] Benedict east@[facility] 01/11/2025 11:45 AM EST Appointment [facility], [address] [address] Hermelinda Barajas MD [address] [place] [address] 1240 [place] [address] [email or web address] 01/15/2025 7:10 AM EST Blood Draw Laboratory Services, [address], 2nd [place] [address] Cindi Shell, DEBRANDER [address] [place] [address] Benedict east@[facility] 01/15/2025 8:00 AM EST Office Visit [facility] Center for Thoracic Oncology, [facility] 450 [facility], 9th [place] [address] Hermelinda Barajas MD 450 [facility] 1240 [place] [address] Pedro@[facility] 01/15/2025 9:00 AM EST Infusion Infusion Therapy Services [place] 9, [facility] 450 [facility], 9th [place] [address] Cindi Shell CNP 450 [place] [address] Benedict east@[facility] 01/18/2025 7:35 AM EST Hospital Encounter [facility] EKG [address] [place] [address] Guanakito Gallardo MD 75 [facility] [place] [address] [email or web address] [facility] 01/18/2025 8:30 AM EST Appointment [facility] [address] [place] [address] Odalis Jimenez PA-C 70 [facility] 5th [place] [address] [email or web address] 02/01/2025 8:40 AM EST Office Visit [facility] Otolaryngology 45 [facility] ASB2-2 [place] [address] Demetrio Armstrong MD [address] [place] [phone] [email or web address] 02/25/2025 9:30 AM EST Telemedicine [facility] Clinic [address] [place] [address] Guanakito Gallardo MD [address] [place] [address] [email or web address] 07/04/2025 10:00 AM EDT Telemedicine [facility] Clinic [address] [place] [address] Thiago Bean MD [address] [place] [address] [email or web address] 10/18/2025 7:05 AM EDT Hospital Encounter [facility] EKG [address] [place] [address] Guanakito Gallardo MD [address] [place] [id number] [email or web address] Arrived documented as of this encounter Visit Diagnoses Not on filedocumented in this encounter Additional Health Concerns Infection Onset Date Last Indicated Resolved Time COVID-19 04/06/2023 04/06/2023 04/27/2023 1:21 AM EST CoV-Risk 07/17/2024 07/17/2024 07/28/2024 1:21 AM EDT documented as of this encounter Care Teams Coating Machine Operator Relationship Specialty Start Date End Date Grecia Bonilla MD [address] [place] [address] [place] [phone] PCP - General Internal Medicine 10/13/22 Idnigo Du, [facility] [address] [place] [address] [email or web address] Leak Patcher Oncology 07/27/22 Hermelinda Barajas MD [address] [place] [address] Mariah Shen [address] [place] [address] [email or web address] Medical Oncology 11/29/22 Cindi Shell CNP [address] [place] [address] Fina@[email or web address] Gerontology 11/29/22 Zuri Ha RN [address] [place] [address] Milton@[facility] Primary Infusion Nurse 01/10/24 05/14/24 Carlos Alberto [place], [place] [address] [place] [address] Department of Psychosocial Oncology and Palliative Care, [place] [address] Jaelyn@[facility] Hospice and Palliative Care 04/05/24 Patria Luevano, BRIELLE [address] [place] [address] [email or web address]@[email or web address] Primary Infusion Nurse 05/15/24 Jennie Ferreira, BRIELLE [address] [place] [address] [email or web address] Associate Infusion Nurse 10/02/24 documented as of this encounter Additional Source Comments The information contained in this document represents components of the legal health record. It is not the complete legal health record.[facility]
--- OUTSIDE RECORDS SUMMARY | 2024-11-20 11:58 | XMS_ITS | Encounter Summary ---
Author Organization [facility] Address [address] [place] [address] Phone Care Team Providers Care Drilling Engineering Manager Name Role Phone Indigo DuSW Unavailable Grecia Bonilla MD Primary Care Provider Hermelinda Barajas MD Unavailable [phone] Cindi Shell TAB MACHINE OPERATOR Unavailable [phone] Zuri Ha RN Unavailable Sandra [email or web address] Carlos Alberto [place], [place] Unavailable Patria Luevano RN Unavailable TOBIAS [email or web address] Jennie Ferreira RN Unavailable [email or web address] Encounter Details Date Type Department Care Team (Late st Contact Info) Description 05/17/2023 Procedure Pass [facility] EKG [address] [place] [address] Social History Tobacco Use Types Packs/Day Years [...] st Contact Info) Description 10/18/2024 Procedure Pass [facility] [address] [place] [address] 10/23/2024 Procedure Pass [facility] EKG [address] [place] [address] 10/23/2024 Procedure Pass [facility] EKG [address] [place] [address] 11/13/2024 Procedure Pass [address] [address] 11/13/2024 Procedure Pass [address] [address] 11/22/2024 1:00 PM EDT Telemedicine [facility] Endocrine, Diabetes, and Hypertension [address] [address] Svetlana Lucero, PharmD 75 [place] [address] [email or web address] 11/26/2024 1:00 PM EDT Social Work Social Work Department, [facility] [place] [address] [address] Hermelinda Barajas MD [address] [place] [address] [email or web address] Indigo Du, [facility] [address] [place] [address] [email or web address] 12/04/2024 7:30 AM EDT Blood Draw Laboratory Services, [address], 2nd [place], [place] Hermelinda Barajas MD [address] [place] [address] [place] [address] Pedro@[email or web address] 12/04/2024 8:30 AM EDT Office Visit [facility] Center for Thoracic Oncology, [address], 9th [place], [place] [phone] Cindi Shell CNP [address] [place] [address] Benedict east@[facility] Hermelinda Barajas MD [address] [place] [address] 1240 [place] [address] Pedro@[facility] 12/04/2024 9:30 AM EDT Infusion Infusion Therapy Services [facility] 9, [address], 9th [place] [address] Cindi Shell CNP [address] [place] [address] Benedict east@[facility] Patria Luevano, BRIELLE [address] [place] [address] [email or web address]@[facility] 12/25/2024 6:30 AM EDT Blood Draw Laboratory Services, [address], 2nd Floor [place], [place] Cindi Shell CNP [facility] [place] [address] Benedict east@[facility] 12/25/2024 7:30 AM EDT Office Visit [facility], [address], 9th [place] [address] Cindi Shell TAB MACHINE OPERATOR [address] [place] [address] Benedict east@[facility] 12/25/2024 8:30 AM EDT Infusion Infusion Therapy Services [place] [address], [address], 9th [place] [address] Cindi Shell TAB MACHINE OPERATOR [address] [place] [address] Benedict east@[facility] 01/11/2025 11:45 AM EST Appointment [facility], [address] [address] Hermelinda Barajas MD [address] [place] [address] 1240 [place] [address] [email or web address] 01/15/2025 7:10 AM EST Blood Draw Laboratory Services, [address], 2nd [place] [address] Cindi Shell, TAB MACHINE OPERATOR 450 [place] [address] Benedict east@[facility] 01/15/2025 8:00 AM EST Office Visit [facility] for [facility]acic Oncology, [facility] 450 [facility], 9th [place] [address] Hermelinda Barajas MD 450 [facility] 1240 [place] [address] Pedro@[facility] 01/15/2025 9:00 AM EST Infusion Infusion Therapy Services [place] 9, [facility] 450 [facility], 9th [place] [address] Cindi Shell CNP 450 [place] [address] Benedict east@[facility] 01/18/2025 7:35 AM EST Hospital Encounter [facility] EKG 70 [place] [address] Guanakito Gallardo MD 75 [facility] [place] [address] [email or web address] [facility] 01/18/2025 8:30 AM EST Appointment [facility] 70 [place] [address] Odalis Jimenez PA-C 70 [facility] 5th [place] [address] [email or web address] 02/01/2025 8:40 AM EST Office Visit [facility] Otolaryngology 45 [facility] ASB2-2 [place] [address] Demetrio Armstrong MD 45 [place] [phone] [email or web address] 02/25/2025 9:30 AM EST Telemedicine [facility] 70 [place] [address] Guanakito Gallardo MD [address] [place] [address] [email or web address] 07/04/2025 10:00 AM EDT Telemedicine [facility] 70 [place] [address] Thiago Bean MD [address] [place] [address] [email or web address] 10/18/2025 7:05 AM EDT Hospital Encounter [facility] EKG [address] [place] [address] Guanakito Gallardo MD [address] [place] [address] [email or web address] Arrived documented as of this encounter Visit Diagnoses Not on filedocumented in this encounter Additional Health Concerns Infection Onset Date Last Indicated Resolved Time CoV-Risk 07/17/2024 07/17/2024 07/28/2024 1:21 AM EDT documented as of this encounter Care Teams Drilling Engineering Manager Relationship Specialty Start Date End Date Grecia Bonilla MD [address] [place] [address] [place] [address] PCP - General Internal Medicine 10/13/22 Indigo Du, [facility] [address] [place] [address] [email or web address] Fuel Cell Engineer Oncology 07/27/22 Hermelinda Barajas MD 450 Wendy Shen 1240 [place] [address] Pedro@[email or web address] Medical Oncology 11/29/22 Cindi Shell CNP [address] [place] [address] Fina@[facility] Gerontology 11/29/22 Zuri Ha RN [address] [place] [address] [email or web address]@[email or web address] Primary Infusion Nurse 01/10/24 05/14/24 Carlos Alberto King MD, [place] [address] [place] [address] Department of Psychosocial Oncology and Palliative Care, [place] [address] Jaelyn@[email or web address] Hospice and Palliative Care 04/05/24 Patria Luevano, BRIELLE [address] [place] [address] [email or web address]@[email or web address] Primary Infusion Nurse 05/15/24 Jennie Ferreira RN [address] [place] [address] ALISON@[facility] Associate Infusion Nurse 10/02/24 documented as of this encounter Additional Source Comments The information contained in this document represents components of the legal health record. It is not the complete legal health record.[facility]
--- OUTSIDE RECORDS SUMMARY | 2024-11-20 11:58 | XMS_ITS | Encounter Summary ---
Author Organization [facility] Address [address] [place] [address] Phone Care Team Providers Care Locomotive Mechanic Apprentice Name Role Phone Indigo Du COPY CHASER Unavailable [phone] Grecia Bonilla MD Primary Care Provider Hermelinda Barajas MD Unavailable [phone] Cindi Shell [facility] Unavailable Carlos Alberto King MD, [place] Unavailable [phone] Patria Luevano RN Unavailable TOBIAS [email or web address] Jennie Ferreira RN Unavailable ALISON@ [email or web address].[place] Encounter Details Date Type Department Care Team (Late st Contact Info) Description 05/15/2024 Procedure Pass [facility], Ct Scan - [facility] 30 [place] [address] Social History Tobacco Use Types Packs/Day Years [...] st Contact Info) Description 10/18/2024 Procedure Pass [facility] 70 [place] [address] 10/23/2024 Procedure Pass [facility] EKG 70 [place] [address] 10/23/2024 Procedure Pass [facility] EKG 70 [place] [address] 11/13/2024 Procedure Pass [address] [address] 11/13/2024 Procedure Pass [address] [address] 11/22/2024 1:00 PM EDT Telemedicine [facility] Endocrine, Diabetes, and Hypertension 221 [facility] 2nd [place] [address] Svetlana Lucero, PharmD 75 [place] [address] [email or web address] .[facility] 11/26/2024 1:00 PM EDT Social Work Social Work Department, [facility] [place] 300 [facility] 4th [place] [address] Hermelinda Barajas MD [address] [address] Pedro@[facility] Indigo Du, [facility] 300 [place] [address] [email or web address] 12/04/2024 7:30 AM EDT Blood Draw Laboratory Services, [address], 2nd Floor [place], [place] Hermelinda Barajas MD [address] [place] [address] Pedro@[facility] 12/04/2024 8:30 AM EDT Office Visit [facility], [address], 9th [place] [address] Cindi Shell PET NUTRITION SPECIALIST [address] [place] [address] Benedict east@[facility] Hermelinda Barajas MD [address] [place] [address] [place] [address] Pedro@[facility] 12/04/2024 9:30 AM EDT Infusion Infusion Therapy Services [facility] 9, [facility] [address] [facility], 9th [place] [address] Cindi Shell PET NUTRITION SPECIALIST 450 [place] [address] Benedict east@[facility] Patria Luevano RN [address] [place] [address] STEFANO@[facility] 12/25/2024 6:30 AM EDT Blood Draw Laboratory Services, [address], 2nd [place] [address] Cindi Shell CNP [address] [place] [address] Benedict east@[facility] 12/25/2024 7:30 AM EDT Office Visit [facility], [address], 9th [place] [address] Cindi Shell CNP [address] [place] [address] Benedict east@[facility] 12/25/2024 8:30 AM EDT Infusion [facility] 9, [address], 9th [place] [address] Cindi Shell CNP [address] [place] [address] Benedict east@[facility] 01/11/2025 11:45 AM EST Appointment [facility], Ct Scan [address] [address] Hermelinda Barajas MD [address] [place] [address] 1240 [place] [address] Pedro@[facility] 01/15/2025 7:10 AM EST Blood Draw Laboratory Services, [facility] [address] [facility], 2nd [place] [address] Cindi Shell CNP 450 [place] [address] Benedict east@[facility] 01/15/2025 8:00 AM EST Office Visit [facility], [facility] [address] [facility], 9th [place] [address] Hermelnida Barajas MD [address] [place] [address] 1240 [place] [address] Pedro@[facility] 01/15/2025 9:00 AM EST Infusion Infusion Therapy Services [facility] 9, [address], 9th [place] [address] Cindi Shell CNP [address] [place] [address] Benedict east@[facility] 01/18/2025 7:35 AM EST Hospital Encounter [facility] EKG 70 [place] [address] Guanakito Gallardo MD 75 [facility] [place] [address] Arrived 01/18/2025 8:30 AM EST Appointment [facility] Women[facility]iology 70 [place] [address] Odalis Jimenez PA-C 70 [facility] 5th [place] [address] vinny@[email or web address] 02/01/2025 8:40 AM EST Office Visit [facility] Otolaryngology 45 [facility] ASB2-2 [place] [address] Demetrio Armstrong MD 45 [place] [phone] mak@[facility] 02/25/2025 9:30 AM EST Telemedicine [facility] 70 [place] [address] Guanakito Gallardo MD [address] [place] [address] [email or web address] 07/04/2025 10:00 AM EDT Telemedicine [facility] Cardiovascular Clinic [address] [place] [address] Thiago Bean MD [address] [place] [address] laurita@[facility] 10/18/2025 7:05 AM EDT Hospital Encounter [facility] EKG 70 [place] [address] Guanakito Gallardo MD [address] [place] [address] [email or web address] Arrived documented as of this encounter Visit Diagnoses Not on filedocumented in this encounter Additional Health Concerns Infection Onset Date Last Indicated Resolved Time CoV-Risk 07/17/2024 07/17/2024 07/28/2024 1:21 AM EDT documented as of this encounter Care Teams Locomotive Mechanic Apprentice Relationship Specialty Start Date End Date Grecia Bonilla MD [address] [place] [address] [place] [address] PCP - General Internal Medicine 10/13/22 Indigo Du, [facility] 300 [place] [address] [email or web address] Pet Training Instructor Oncology 07/27/22 Hermelinda Barajas MD [address] [place] [address] 1240 [place] [address] Pedro@[facility] Medical Oncology 11/29/22 Cindi Shell CNP [address] [place] [address] Fina@[email or web address] Gerontology 11/29/22 Carlos Alberto King MD, [place] [address] [place] [address] Department of Psychosocial Oncology and Palliative Care, [place] [address] Jaelyn@[facility] Hospice and Palliative Care 04/05/24 Patria Luevano, BRIELLE [address] [place] [address] STEFANO@[facility] Primary Infusion Nurse 05/15/24 Jennie Ferreira RN [address] [place] [address] ALISON@[facility] Associate Infusion Nurse 10/02/24 documented as of this encounter Additional Source Comments The information contained in this document represents components of the legal health record. It is not the complete legal health record.[facility]
--- OUTSIDE RECORDS SUMMARY | 2024-11-20 11:58 | XMS_ITS | Encounter Summary ---
Author Organization [facility] Address [address] [place] [address] Phone Care Team Providers Care Customer Supply Chain Analyst Name Role Phone Indigo Du MECHANICAL PRODUCT DESIGN ENGINEER Unavailable Grecia Bonilla MD Primary Care Provider Hermelinda Barajas MD Unavailable [phone] Cindi Shell [facility] Unavailable Carlos Alberto King MD, [place] Unavailable Patria Luevano RN Unavailable TOBIAS [email or web address] Jennie Ferreira RN Unavailable ALISON@ [email or web address] Encounter Details Date Type Department Care Team (Late st Contact Info) Description 10/18/2024 Procedure Pass [facility] 70 [place] [address] Social History Tobacco Use Types Packs/Day Years [...] st Contact Info) Description 10/18/2024 Procedure Pass [facility]iology 70 [place] [address] 10/23/2024 Procedure Pass [facility] EKG 70 [place] [address] 10/23/2024 Procedure Pass [facility] EKG 70 [place] [address] 11/13/2024 Procedure Pass [address] [address] 11/13/2024 Procedure Pass [address] [address] 11/22/2024 1:00 PM EDT Telemedicine [facility] Endocrine, Diabetes, and Hypertension [address] [address] Svetlana Lucero, PharmD 75 [place] [address] [email or web address] .[facility] 11/26/2024 1:00 PM EDT Social Work Social Work Department, [facility] 300 [facility] 4th [place] [address] Hermelinda Barajas MD 450 [facility] [address] [place] [address] Pedro@[facility] Indigo Du, [facility] 300 [place] [address] christina@[facility] 12/04/2024 7:30 AM EDT Blood Draw Laboratory Services, [address], 2nd Floor [place], [place] Hermelinda Barajas MD [address] [place] [address] [place] [address] Pedro@[facility] 12/04/2024 8:30 AM EDT Office Visit [facility] for Thoracic Oncology, [address], 9th [place] [address] Cindi Shell COMMUNICATIONS WRITER [address] [place] [address] Benedict east@[facility] Hermelinda Barajas MD [address] [place] [address] 1240 [place] [address] Pedro@[facility] 12/04/2024 9:30 AM EDT Infusion Infusion Therapy Services [facility] 9, [facility] 450 [facility], 9th [place] [address] Cindi Shell COMMUNICATIONS WRITER [address] [place] [address] Benedict east@[facility] Patria Luevano, BRIELLE [address] [place] [address] STEFANO@[facility] 12/25/2024 6:30 AM EDT Blood Draw Laboratory Services, [address], 2nd [place] [address] Cindi Shell CNP 450 [place] [address] Benedict east@[facility] 12/25/2024 7:30 AM EDT Office Visit [facility], [address], 9th [place] [address] Cindi Shell COMMUNICATIONS WRITER [address] [place] [address] Benedict east@[facility] 12/25/2024 8:30 AM EDT Infusion Infusion Therapy Services [facility] 9, [address], 9th [place] [address] Cindi Shell COMMUNICATIONS WRITER [address] [place] [address] Benedict east@[facility] 01/11/2025 11:45 AM EST Appointment [facility], [address] [address] Hermelinda Barajas MD [address] [place] [address] 1240 [place] [address] Pedro@[facility] 01/15/2025 7:10 AM EST Blood Draw Laboratory Services, [facility] 450 [facility], 2nd [place] [address] Cindi Shell CNP 450 [place] [address] Benedict east@[facility] 01/15/2025 8:00 AM EST Office Visit [facility] for Thoracic Oncology, [facility] 450 [facility], 9th [place] [address] Hermelinda Barajas MD 450 [facility] 1240 [place] [address] Pedro@[facility] 01/15/2025 9:00 AM EST Infusion Infusion Therapy Services [facility] 9, [facility] 450 [facility], 9th [place] [address] Cindi Shell COMMUNICATIONS WRITER 450 [place] [address] Benedict east@[facility] 01/18/2025 7:35 AM EST Hospital Encounter [facility] EKG 70 [place] [address] Guanakito Gallardo MD 75 [facility] [place] [address] Arrived 01/18/2025 8:30 AM EST Appointment [facility] 70 [place] [address] Odalis Jimenez PA-C [address] [place] [address] [email or web address] 02/01/2025 8:40 AM EST Office Visit [facility] Otolaryngology 45 [facility] ASB2-2 [place] [address] Demetrio Armstrong MD 45 [place] [phone] mak@[facility] 02/25/2025 9:30 AM EST Telemedicine [facility] Cardiovascular Clinic 70 [place] [address] Guanakito Gallardo MD [address] [place] [address] [place] [address] [email or web address] 07/04/2025 10:00 AM EDT Telemedicine [facility] Cardiovascular Clinic [address] [place] [address] Thiago Bean MD [address] [place] [address] laurita@[facility] 10/18/2025 7:05 AM EDT Hospital Encounter [facility] EKG 70 [place] [address] Guanakito Gallardo MD [address] [place] [address] [place] [address] [email or web address] Arrived documented as of this encounter Visit Diagnoses Not on filedocumented in this encounter Care Teams Customer Supply Chain Analyst Relationship Specialty Start Date End Date Grecia Bonilla MD [address] [place] [address] [place] [address] PCP - General Internal Medicine 10/13/22 Indigo Du, [facility] 300 [place] [address] [email or web address] Dcs Engineer Oncology 07/27/22 Hermelinda Barajas MD [address] [place] [address] 1240 [place] [address] Pedro@[facility] Medical Oncology 11/29/22 Cindi Shell CNP [address] [place] [address] Fina@[facility] Gerontology 11/29/22 Carlos Alberto King MD, [place] [address] [place] [address] Department of Psychosocial Oncology and Palliative Care, [place] [phone] Jaelyn@[facility] Hospice and Palliative Care 04/05/24 Patria Luevano, BRIELLE [address] [place] [address] STEFANO@[facility] Primary Infusion Nurse 05/15/24 Jennie Ferreira, RN [address] [place] [address] ALISON@[facility] Associate Infusion Nurse 10/02/24 documented as of this encounter Additional Source Comments The information contained in this document represents components of the legal health record. It is not the complete legal health record.[facility]
--- OUTSIDE RECORDS SUMMARY | 2024-11-20 11:58 | XMS_ITS | Encounter Summary ---
Author Organization [facility] Address 399 [facility] [address] [place] [address] Phone Care Team Providers Care Patrol Inspector Name Role Phone Indigo DuSW Unavailable Grecia Bonilla MD Primary Care Provider Hermelinda Barjaas MD Unavailable [phone] Cindi Shell CARDIAC TECHNOLOGIST Unavailable Zuri Ha RN Unavailable Sandra Ruiz@[email or web address].[facility] Carlos Alberto King MD, [place] Unavailable Patria Luevano RN Unavailable TOBIAS HYATT@[email or web address].[place].[facility] Jennie Ferreira RN Unavailable ALISON@ [facility].[facility] Encounter Details Date Type Department Care Team (Late st Contact Info) Description 04/25/2023 Telephone [facility] for [facility] On[facility], [facility] 450 [facility], 9th [place] [address] Patria Mar, RN 44 [place] [address] [email or web address] Social History Tobacco Use Types Packs/Day [...] st Contact Info) Description 10/18/2024 Procedure Pass [facility] and Women's Radiology 70 [place] [address] 10/23/2024 Procedure Pass [facility] EKG 70 [place] [address] 10/23/2024 Procedure Pass [facility] EKG 70 [place] [address] 11/13/2024 Procedure Pass [address] [address] 11/13/2024 Procedure Pass [address] [address] 11/22/2024 1:00 PM EDT Telemedicine [facility] Endocrine, Diabetes, and Hypertension [address] [address] Svetlana Lucero, PharmD 75 [place] [address] nilam@[email or web address] .[facility] 11/26/2024 1:00 PM EDT Social Work Social Work Department, [facility] [place] [facility] [place] 300 [facility] 4th [place] [address] Hermelinda Barajas MD [address] [place] [address] 1240 [place] [address] Pedro@[facility] Indigo Du, OCCUPATIONAL NURSE 300 [place] [address] [email or web address] 12/04/2024 7:30 AM EDT Blood Draw Laboratory Services, [address], 2nd Floor [place], [place] Hermelinda Barajas MD 450 [facility] 1240 [place] [address] Pedro@[facility] 12/04/2024 8:30 AM EDT Office Visit [facility], [address], 9th [place] [address] Cindi Shell, CARDIAC TECHNOLOGIST 450 [place] [address] Benedict east@[facility] Hermelinda Barajas MD 450 [facility] 1240 [place] [address] Pedro@[facility] 12/04/2024 9:30 AM EDT Infusion Infusion Therapy Services [place] 9, [facility] 450 [facility], 9th [place] [address] Cindi Shell, CARDIAC TECHNOLOGIST [address] [place] [address] Benedict east@[facility] Patria Luevano, BRIELLE [address] [place] [address] STEFANO@[facility] 12/25/2024 6:30 AM EDT Blood Draw Laboratory Services, [address], 2nd [place] [address] Cindi Shell CNP [address] [place] [address] Benedict east@[facility] 12/25/2024 7:30 AM EDT Office Visit [facility], [address], 9th [place] [address] Cindi Shell CNP [address] [place] [address] Benedict east@[facility] 12/25/2024 8:30 AM EDT Infusion Infusion Therapy Services [place] 9, [address], 9th [place] [address] Cindi Shell CNP [address] [place] [address] Benedict east@[facility] 01/11/2025 11:45 AM EST Appointment [facility], [address] [address] Hermelinda Barajas MD [address] [place] [address] 1240 [place] [address] Pedro@[facility] 01/15/2025 7:10 AM EST Blood Draw Laboratory Services, [place] [address] [facility], 2nd [place] [address] Cindi Shell CNP 450 [place] [address] Benedict east@[facility] 01/15/2025 8:00 AM EST Office Visit [facility], [facility] 450 [facility], 9th [place] [address] Hermelinda Barajas MD [address] [place] [address] 1240 [place] [address] Pedro@[facility] 01/15/2025 9:00 AM EST Infusion Infusion Therapy Services [facility] 9[facility] 450 [facility], 9th [place] [address] Cindi Shell CNP 450 [place] [address] Benedict east@[facility] 01/18/2025 7:35 AM [facility] Hospital Encounter [facility] EKG 70 [place] [address] Guanakito Gallardo MD 75 [facility] [place] [address] Arrived 01/18/2025 8:30 AM EST Appointment [facility] 70 [place] [address] Odalis Jimenez PA-C 70 [facility] 5th [place] [address] [email or web address] 02/01/2025 8:40 AM EST Office Visit [facility] Otolaryngology 45 [facility] ASB2-2 [place] [address] Demetrio Armstrong MD 45 [place] [phone] [email or web address] 02/25/2025 9:30 AM EST Telemedicine [facility] Cardiovascular Clinic 70 [place] [address] Guanakito Gallardo MD [address] [place] [address] 07/04/2025 10:00 AM EDT Telemedicine [facility] Cardiovascular Clinic 70 [place] [address] Thiago Bean MD [address] [place] [address] laurita@[facility] 10/18/2025 7:05 AM EDT Hospital Encounter [facility] EKG 70 [place] [address] Guanakito Gallardo MD [address] [place] [address] [email or web address] Arrived documented as of this encounter Visit Diagnoses Not on filedocumented in this encounter Additional Health Concerns Infection Onset Date Last Indicated Resolved Time COVID-19 04/06/2023 04/06/2023 04/27/2023 1:21 AM EST CoV-Risk 07/17/2024 07/17/2024 07/28/2024 1:21 AM EDT documented as of this encounter Care Teams Patrol Inspector Relationship Specialty Start Date End Date Grecia Bonilla MD [address] [place] [address] [place] [address] PCP - General Internal Medicine 10/13/22 Indigo Du, OCCUPATIONAL NURSE 300 [place] [address] [email or web address] Cassandra Developer Oncology 07/27/22 Hermelinda Barajas MD [address] [place] [address] 1240 [place] [address] Pedro@[facility] Medical Oncology 11/29/22 Cindi Shell CNP [address] [place] [address] Fina@[facility] Gerontology 11/29/22 Zuri Ha RN [address] [place] [address] Milton@[facility] Primary Infusion Nurse 01/10/24 05/14/24 Carlos Alberot King MD, [place] [address] [place] [address] Department of Psychosocial Oncology and Palliative Care, [place] [phone] Jaelyn@[facility] Hospice and Palliative Care 04/05/24 Patria Luevano, BRIELLE [address] [place] [address] STEFANO@[facility] Primary Infusion Nurse 05/15/24 Jennie Ferreira, BRIELLE [address] [place] [address] ALISON@[facility] Associate Infusion Nurse 10/02/24 documented as of this encounter Additional Source Comments The information contained in this document represents components of the legal health record. It is not the complete legal health record.[facility]
--- OUTSIDE RECORDS SUMMARY | 2024-11-20 11:58 | XMS_ITS | Encounter Summary ---
Author Organization [facility] Address [address] [place] [address] Phone Care Team Providers Care Graduate Teaching Assistant Name Role Phone Indigo DuSW Unavailable Grecia Bonilla MD Primary Care Provider Hermelinda Barajas MD Unavailable [phone] Cindi Shell STERILE SUPPLY TECHNICIAN Unavailable Zuri Ha RN Unavailable Sandra Ruiz@[email or web address] Carlos Alberto [place] MD, [place] Unavailable Patria Luevano RN Unavailable TOBIAS [email or web address].[place].[facility] Jennie Ferreira RN Unavailable ALISON@ [facility] Encounter Details Date Type Department Care Team (Late st Contact Info) Description 01/11/2024 Procedure Pass [facility] Women[facility] 75 [place] [address] Social History Tobacco Use Types Packs/Day Years [...] [facility] 70 [place] [address] 10/23/2024 Procedure Pass [facility] EKG 70 [place] [address] 10/23/2024 Procedure Pass [facility] EKG 70 [place] [address] 11/13/2024 Procedure Pass [address] [address] 11/13/2024 Procedure Pass [address] [address] 11/22/2024 1:00 PM EDT Telemedicine [facility] Endocrine, Diabetes, and Hypertension [address] [address] Svetlana Lucero, PharmD 75 [place] [address] [email or web address] 11/26/2024 1:00 PM EDT Social Work Social Work Department, [facility] [facility] [place] [facility] [place] [address] [address] Hermelinda Barajas MD [address] [place] [address] Pedro@[email or web address] Indigo Du, [facility] 300 [place] [address] [email or web address] 12/04/2024 7:30 AM EDT Blood Draw Laboratory Services, [address], 2nd Floor [place], [place] Hermelinda Barajas MD [address] [place] [address] 1240 [place] [address] Pedro@[facility] 12/04/2024 8:30 AM EDT Office Visit [facility] for Thoracic Oncology, [address], 9th [place] [address] Cindi Shell CNP [address] [place] [address] Benedict east@[facility] Hermelinda Barajas MD [address] [place] [address] 1240 [place] [address] Pedro@[facility] 12/04/2024 9:30 AM EDT Infusion Infusion Therapy Services Yawkey 9, [address], 9th [place] [address] Cindi Shell STERILE SUPPLY TECHNICIAN [address] [place] [address] Benedict east@[facility] Patria Luevano, BRIELLE [address] [place] [address] STEFANO@[facility] 12/25/2024 6:30 AM EDT Blood Draw Laboratory Services, [address], 2nd [place] [address] Cindi Shell CNP 450 [place] [address] Benedict east@[facility] 12/25/2024 7:30 AM EDT Office Visit [facility] for Thoracic Oncology, [address], 9th [place] [address] Cindi Shell STERILE SUPPLY TECHNICIAN 450 [place] [address] Benedict east@[facility] 12/25/2024 8:30 AM EDT Infusion Infusion Therapy Services [place] [address], [address], 9th [place] [address] Cindi Shell STERILE SUPPLY TECHNICIAN [address] [place] [address] Benedict east@[facility] 01/11/2025 11:45 AM EST Appointment [address] [address] Hermelinda Barajas MD [address] [place] [address] 1240 [place] [address] Pedro@[email or web address] 01/15/2025 7:10 AM EST Blood Draw Laboratory Services, [address], 2nd [place] [address] Cindi Shell STERILE SUPPLY TECHNICIAN 450 [place] [address] Benedict aest@[facility] 01/15/2025 8:00 AM EST Office Visit [facility] for [facility]acic On[facility], [facility] 450 [facility], 9th [place] [address] Hermelinda Barajas MD 450 [facility] 1240 [place] [address] Pedro@[facility] 01/15/2025 9:00 AM EST Infusion Infusion Therapy Services [place] [facility] 450 [facility], 9th [place] [address] Cindi Shell CNP 450 [place] [address] Benedict east@[facility] 01/18/2025 7:35 AM EST Hospital Encounter [facility] EKG 70 [place] [address] Guanakito Gallardo MD [address] [place] [address] [place] [address] [email or web address] [facility] 01/18/2025 8:30 AM EST Appointment [facility] 70 [place] [address] Odalis Jimenez PA-C 70 [facility] 5th [place] [address] [email or web address] 02/01/2025 8:40 AM EST Office Visit [facility] Otolaryngology 45 [facility] ASB2-2 [place] [address] Demetrio Armstrong MD 45 [place] [phone] [email or web address] 02/25/2025 9:30 AM EST Telemedicine [facility] [address] [place] [address] Guanakito Gallardo MD [address] [place] [address] [email or web address] 07/04/2025 10:00 AM EDT Telemedicine [facility] Clinic [address] [place] [address] Thiago Bean MD [address] [place] [address] [email or web address] 10/18/2025 7:05 AM EDT Hospital Encounter [facility] EKG [address] [place] [address] Guanakito Gallardo MD [address] [place] [address] [email or web address] Arrived documented as of this encounter Visit Diagnoses Not on filedocumented in this encounter Additional Health Concerns Infection Onset Date Last Indicated Resolved Time CoV-Risk 07/17/2024 07/17/2024 07/28/2024 1:21 AM EDT documented as of this encounter Care Teams Graduate Teaching Assistant Relationship Specialty Start Date End Date Grecia Bonilla MD [address] [place] [address] [place] [address] PCP - General Internal Medicine 10/13/22 Indigo Du, [facility] 300 [place] [address] [email or web address] Hospital Tray Service Worker Oncology 07/27/[address] [facility] Wendy Shen 1240 [place] [address] Pedro@[facility] Medical Oncology 11/29/22 Cindi Shell CNP [address] [place] [address] Fina@[facility] Gerontology 11/29/22 Zuri Ha RN [address] [place] [address] Milton@[facility] Primary Infusion Nurse 01/10/24 05/14/24 Carlos Alberto [place] MD, [place] [address] [place] [address] Department of Psychosocial Oncology and Palliative Care, [place] [address] Jaelyn@[facility] Hospice and Palliative Care 04/05/24 Patria Luevano, BRIELLE [address] [place] [address] STEFANO@[facility] Primary Infusion Nurse 05/15/24 Jennie Ferreira RN [address] [place] [address] ALISON@[facility] Associate Infusion Nurse 10/02/24 documented as of this encounter Additional Source Comments The information contained in this document represents components of the legal health record. It is not the complete legal health record.[facility]
--- OUTSIDE RECORDS SUMMARY | 2024-11-20 11:58 | XMS_ITS | Encounter Summary ---
Author Organization [facility] Address [address] [place] [address] Phone Care Team Providers Care Kennel Manager Dog Track Name Role Phone Indigo DuSW Unavailable Grecia Bonilla MD Primary Care Provider Hermelinda Barajas MD Unavailable [phone] Cindi Shell CARPENTER PACKING Unavailable Zuri Ha RN Unavailable Sandra Ruiz@[email or web address] Carlos Alberto [place] MD, [place] Unavailable Patria Luevano RN Unavailable TOBIAS HYATT@[email or web address] Jennie Ferreira RN Unavailable ALISON@ [facility] Encounter Details Date Type Department Care Team (Late st Contact Info) Description 03/06/2024 Procedure Pass [facility], Ct Scan - [facility] 30 [place] [address] Social History Tobacco Use Types Packs/Day Years [...] Contact Info) Description 10/18/2024 Procedure Pass [facility] 70 [place] [address] 10/23/2024 Procedure Pass [facility] EKG 70 [place] [address] 10/23/2024 Procedure Pass [facility] EKG 70 [place] [address] 11/13/2024 Procedure Pass [address] [address] 11/13/2024 Procedure Pass [address] [address] 11/22/2024 1:00 PM EDT Telemedicine [facility] Endocrine, Diabetes, and Hypertension 221 [facility] [address] [address] Svetlana Lucero, PharmD 75 [place] [address] [email or web address] 11/26/2024 1:00 PM EDT Social Work Social Work Department, [facility] 300 [facility] 4th [place] [address] Hermelinda Barajas MD 450 [facility] 1240 [place] [address] Pedro@[facility] Indigo Du, [facility] 300 [place] [address] [email or web address] 12/04/2024 7:30 AM EDT Blood Draw Laboratory Services, [address], 2nd [place] [address] Hermelinda Barajas MD 450 [facility] 1240 [place] [address] Pedro@[facility] 12/04/2024 8:30 AM EDT Office Visit [facility] for Thoracic On[facility], [facility] 450 [facility], 9th [place] [address] Cindi Shell CARPENTER PACKING [address] [place] [address] Benedict east@[facility] Hermelinda Barajas MD 450 [facility] 1240 [place] [address] Pedro@[facility] 12/04/2024 9:30 AM EDT Infusion Infusion Therapy Services Yawkey 9, [facility] 450 [facility], 9th [place] [address] Cindi Shell CARPENTER PACKING 450 [place] [address] Benedict east@[facility] Patria Luevano, BRIELLE 450 [place] [address] [email or web address]@[facility] 12/25/2024 6:30 AM EDT Blood Draw Laboratory Services, [address], 2nd [place] [address] Cindi Shell, CARPENTER PACKING [address] [place] [address] Benedict east@[facility] 12/25/2024 7:30 AM EDT Office Visit [facility] for Thoracic Oncology, [address], 9th [place] [address] Cindi Shell, CARPENTER PACKING [address] [place] [address] Benedict east@[facility] 12/25/2024 8:30 AM EDT Infusion Infusion Therapy Services Sowmya 9, [address], 9th [place] [address] Cindi Shell CARPENTER PACKING [address] [place] [address] Benedict east@[facility] 01/11/2025 11:45 AM EST Appointment [facility], [address] [address] Hermelinda Barajas MD [address] [place] [address] 1240 [place] [address] Pedro@[facility] 01/15/2025 7:10 AM EST Blood Draw Laboratory Services, [address], 2nd [place] [address] Cindi Shell CNP 450 [place] [address] Benedict east@[facility] 01/15/2025 8:00 AM EST Office Visit [facility] for Thoracic Oncology, [address], 9th [place] [address] Hermelinda Barajas MD [address] [place] [address] Pedro@[facility] 01/15/2025 9:00 AM EST Infusion Infusion Therapy Services Yawkey 9, [address], 9th [place] [address] Cindi Shell CNP [address] [place] [address] Benedict east@[facility] 01/18/2025 7:35 AM EST Hospital Encounter [facility] EKG 70 [place] [address] Guanakito Gallardo MD [address] [place] [address] [place] [address] Arrived 01/18/2025 8:30 AM EST Appointment [facility] Women[facility] 70 [place] [address] Odalis Jimenez PA-C 70 [facility] 5th [place] [address] [email or web address] 02/01/2025 8:40 AM EST Office Visit [facility] Otolaryngology 45 [facility] ASB2-2 [place] [address] Demetroi Armstrong MD 45 [place] [phone] [email or web address] 02/25/2025 9:30 AM EST Telemedicine [facility] Cardiovascular Clinic [address] [place] [address] Guanakito Gallardo MD [address] [place] [address] [email or web address] 07/04/2025 10:00 AM EDT Telemedicine [facility] Cardiovascular Clinic [address] [place] [address] Thiago Bean MD [address] [place] [address] [email or web address]@[email or web address] 10/18/2025 7:05 AM EDT Hospital Encounter [facility] EKG 70 [place] [address] Guanakito Gallardo MD [address] [place] [address] [place] [address] [email or web address] Arrived documented as of this encounter Visit Diagnoses Not on filedocumented in this encounter Additional Health Concerns Infection Onset Date Last Indicated Resolved Time CoV-Risk 07/17/2024 07/17/2024 07/28/2024 1:21 AM EDT documented as of this encounter Care Teams Kennel Manager Dog Track Relationship Specialty Start Date End Date Grecia Bonilla MD [address] [place] [address] [place] [phone] PCP - General Internal Medicine 10/13/22 Indigo Du, [facility] 300 [place] [address] [email or web address] Program Associate Oncology 07/27/22 Hermelinda Barajas MD [address] [place] [address] Pedro@[facility] Medical Oncology 11/29/22 Cindi Shell CNP [address] [place] [address] Fina@[email or web address] Gerontology 11/29/22 Zuri Ha, BRIELLE [address] [place] [address] Milton@[facility] Primary Infusion Nurse 01/10/24 05/14/24 Carlos Alberto King MD, [place] [address] [place] [address] Department of Psychosocial Oncology and Palliative Care, [place] [address] Jaelyn@[facility] Hospice and Palliative Care 04/05/24 Patria Luevano, BRIELLE [address] [place] [address] STEFANO@[facility] Primary Infusion Nurse 05/15/24 Jennie Ferreira RN [address] [place] [address] ALISON@[facility] Associate Infusion Nurse 10/02/24 documented as of this encounter Additional Source Comments The information contained in this document represents components of the legal health record. It is not the complete legal health record.[facility]
--- OUTSIDE RECORDS SUMMARY | 2024-11-20 11:58 | XMS_ITS | Encounter Summary ---
Author Organization [facility] Address [address] [place] [address] Phone Care Team Providers Care Bioinformatics Developer Name Role Phone Indigo DuSW Unavailable Grecia Bonilla MD Primary Care Provider Hermelinda Barajas MD Unavailable [phone] Cindi Shell DIGITAL ARCHIVIST Unavailable [phone] Zuri Ha RN Unavailable Sandra Ruiz@[facility] Carlos Alberto [place] MD, [place] Unavailable Patria Luevano RN Unavailable TOBIAS HYATT@[facility] Jennie Ferreira RN Unavailable ALISON@ [facility] Encounter Details Date Type Department Care Team (Late st Contact Info) Description 06/21/2023 Procedure Pass [facility], [facility] [place] 450 [facility], [place] [address]1 [place] [address] Social History Tobacco Use Types Packs/Day Years [...] [facility] 70 [place] [address] 10/23/2024 Procedure Pass [facility] EKG 70 [place] [address] 10/23/2024 Procedure Pass [facility] EKG 70 [place] [address] 11/13/2024 Procedure Pass [address] [address] 11/13/2024 Procedure Pass [address] [address] 11/22/2024 1:00 PM EDT Telemedicine [facility] Endocrine, Diabetes, and Hypertension [address] [address] Svetlana Lucero, PharmD 75 [place] [address] [email or web address] [facility] 11/26/2024 1:00 PM EDT Social Work Social Work Department, [facility] [place] at [address] 4th [place] [address] Hermelinda Barajas MD 450 [facility] [address] [place] [address] Pedro@[facility] Indigo Du, [facility] 300 [place] [address] [email or web address] 12/04/2024 7:30 AM EDT Blood Draw Laboratory Services, [facility] 450 [facility], 2nd Floor [place], [place] Hermelinda Barajas MD 450 [facility] 1240 [place] [address] Pedro@[facility] 12/04/2024 8:30 AM EDT Office Visit [facility] for Thoracic On[facility], [facility] 450 [facility], 9th [place] [address] Cindi Shell CNP 450 [place] [address] Benedict east@[facility] Hermelinda Barajas MD 450 [facility] 1240 [place] [address] Pedro@[facility] 12/04/2024 9:30 AM EDT Infusion Infusion Therapy Services Yawkey 9, [facility] 450 [facility], 9th [place] [address] Cindi Shell DIGITAL ARCHIVIST [address] [place] [address] Benedict east@[facility] Patria Luevano, RN 450 [place] [address] STEFANO@[facility] 12/25/2024 6:30 AM EDT Blood Draw Laboratory Services, [address], 2nd [place] [address] Cindi Shell DIGITAL ARCHIVIST 450 [place] [address] Benedict east@[facility] 12/25/2024 7:30 AM EDT Office Visit [facility] for Thoracic Oncology, [address], 9th [place] [address] Cindi Shell DIGITAL ARCHIVIST 450 [place] [address] Benedict east@[facility] 12/25/2024 8:30 AM EDT Infusion Infusion Therapy Services Yawkey 9, [address], 9th [place] [address] Cindi Shell DIGITAL ARCHIVIST [address] [place] [address] Benedict east@[facility] 01/11/2025 11:45 AM EST Appointment [facility], [address] [address] Hermelinda Barajas MD [address] [place] [address] 1240 [place] [address] Pedro@[facility] 01/15/2025 7:10 AM EST Blood Draw Laboratory Services, [address], 2nd [place] [address] Cindi Shell DIGITAL ARCHIVIST 450 [place] [address] Benedict east@[facility] 01/15/2025 8:00 AM EST Office Visit [facility], [facility] 450 [facility], 9th [place] [address] Hermelinda Barajas MD [address] [place] [address] 1240 [place] [address] Pedro@[facility] 01/15/2025 9:00 AM EST Infusion Infusion Therapy Services [address] 450 [facility], 9th [place] [address] Cindi Shell CNP 450 [place] [address] Benedict east@[facility] 01/18/2025 7:35 AM EST Hospital Encounter [facility] EKG 70 [place] [address] Guanakito Gallardo MD 75 [facility] [place] [address] [facility] 01/18/2025 8:30 AM EST Appointment [facility] Women[facility] 70 [place] [address] Odalis Jimenez PA-C 70 [facility] 5th [place] [address] [email or web address] 02/01/2025 8:40 AM EST Office Visit [facility] Otolaryngology 45 [facility] ASB2-2 [place] [address] Demetrio Armstrong MD 45 [place] [phone] [email or web address] 02/25/2025 9:30 AM EST Telemedicine [facility] Cardiovascular Clinic 70 [place] [address] Guanakito Gallardo MD [address] [place] [address] 07/04/2025 10:00 AM EDT Telemedicine [facility] Cardiovascular Clinic [address] [place] [address] Thiago Bean MD [address] [place] [address] [email or web address] 10/18/2025 7:05 AM EDT Hospital Encounter [facility] EKG 70 [place] [address] Guanakito Gallardo MD [address] [place] [address] Arrived documented as of this encounter Visit Diagnoses Not on filedocumented in this encounter Additional Health Concerns Infection Onset Date Last Indicated Resolved Time CoV-Risk 07/17/2024 07/17/2024 07/28/2024 1:21 AM EDT documented as of this encounter Care Teams Bioinformatics Developer Relationship Specialty Start Date End Date Grecia Bonilla MD [address] [place] [address] Dr Stern [address] [place] [phone] PCP - General Internal Medicine 10/13/22 Indigo Du, [facility] 300 [place] [address] [email or web address] Transplant Immunologist Oncology 07/27/22 Hermelinda Barajas MD [facility] Wendy Shen 1240 [place] [address] Pedro@[facility] Medical Oncology 11/29/22 Cindi Shell CNP [address] [place] [address] Fina@[email or web address] Gerontology 11/29/22 Zuri Ha, BRIELLE [address] [place] [address] Milton@[facility] Primary Infusion Nurse 01/10/24 05/14/24 Carlos Alberto King MD, [place] [address] [place] [address] Department of Psychosocial Oncology and Palliative Care, [place] [phone] Jaelyn@[facility] Hospice and Palliative Care 04/05/24 Patria Luevano, BRIELLE [address] [place] [address] STEFANO@[facility] Primary Infusion Nurse 05/15/24 Jennie Ferreira, BRIELLE [address] [place] [address] ALISON@[facility] Associate Infusion Nurse 10/02/24 documented as of this encounter Additional Source Comments The information contained in this document represents components of the legal health record. It is not the complete legal health record.[facility]
--- OUTSIDE RECORDS SUMMARY | 2024-11-20 11:58 | XMS_ITS | Encounter Summary ---
Author Organization [facility] Address [address] [facility] [address] [place] [address] Phone Care Team Providers Care Marketing Programs Specialist Name Role Phone Aubrey Taylor MD Primary Care Provider [phone] Indigo [facility] Unavailable Jn Cline DO Primary Care Provider Aubrey Taylor MD Primary Care Provider [phone] Marilynn Daly NP Primary Care Provider Unavailab Grecia Rosado MD Primary Care Provider Hermelinda Barajas MD Unavailable [phone] Cindi Shell MACHINE OPERATOR SLITTER TECHNICIAN Unavailable Zuri Ha RN Unavailable Sandra [email or web address] Carlos Alberto King [place], [place] Unavailable Patria Luevano RN Unavailable TOBIAS [email or web address] Jennie Ferreira RN Unavailable ALISON@ [facility] Encounter Details Date Type Department Care Team (Late st Contact Info) Description 06/25/2022 Procedure Pass [facility] Echocardiography [address] [place] [address] Social History Tobacco Use Types Packs/Day Years [...] st Contact Info) Description 10/18/2024 Procedure Pass [facility] [address] [place] [address] 10/23/2024 Procedure Pass [facility] EKG [address] [place] [address] 10/23/2024 Procedure Pass [facility] EKG [address] [place] [address] 11/13/2024 Procedure Pass [address] [address] 11/13/2024 Procedure Pass [address] [address] 11/22/2024 1:00 PM EDT Telemedicine [facility] Endocrine, Diabetes, and Hypertension [address] [address] Svetlana Lucero, PharmD 75 [place] [address] [email or web address] 11/26/2024 1:00 PM EDT Social Work Social Work Department, [facility] [place] 300 [facility] 4th [place] [address] Hermelinda Barajas MD [address] [facility] [address] [place] [address] Pedro@[facility].COUNT INCLUDES THE [facility] Indigo Du LICSW 300 [place] [address] [email or web address] 12/04/2024 7:30 AM EDT Blood Draw Laboratory Services, [address], 2nd [place] [address] Hermelinda Barajas MD 450 [facility] 1240 [place] [address] Pedro@[facility] 12/04/2024 8:30 AM EDT Office Visit [facility], [address], 9th [place] [address] Cindi Shell MACHINE OPERATOR SLITTER TECHNICIAN 450 [place] [address] Benedict east@[facility] Hermelinda Barajas MD [address] [place] [address] 1240 [place] [address] Pedro@[facility] 12/04/2024 9:30 AM EDT Infusion Infusion Therapy Services Yawkey 9, [address], 9th [place] [address] Cindi Shell MACHINE OPERATOR SLITTER TECHNICIAN [address] [place] [address] Benedict east@[facility] Patria Luevano, BRIELLE [address] [place] [address] [email or web address]@[email or web address] 12/25/2024 6:30 AM EDT Blood Draw Laboratory Services, Hermelinda[address], 2nd [place] [address] Cindi Shell CNP [address] [place] [address] Benedict east@[facility] 12/25/2024 7:30 AM EDT Office Visit [facility], [address], 9th [place] [address] Cindi Shell CNP [address] [place] [address] Benedict east@[facility] 12/25/2024 8:30 AM EDT Infusion Infusion Therapy Services [facility], [address], 9th [place] [address] Cindi Shell CNP [address] [place] [address] Benedict east@[facility] 01/11/2025 11:45 AM EST Appointment [facility], Ct Scan [address] [address] Hermelinda Barajas MD [address] [place] [address] 1240 [place] [address] Pedro@[facility] 01/15/2025 7:10 AM EST Blood Draw Laboratory Services, [address], 2nd [place] [address] Cindi Shell MACHINE OPERATOR SLITTER TECHNICIAN [address] [place] [address] Benedict east@[facility] 01/15/2025 8:00 AM EST Office Visit [facility], [facility] 450 [facility], 9th [place] [address] Hermelinda Barajas MD 450 [facility] 1240 [place] [address] Pedro@[facility] 01/15/2025 9:00 AM EST Infusion Infusion [facility] Services [address] 450 [facility], 9th [place] [address] Cindi Shell CNP [address] [place] [address] Benedict east@[facility] 01/18/2025 7:35 AM EST Hospital Encounter [facility] EKG [address] [place] [address] Guanakito Gallardo MD 75 [facility] Cardiology [place] [address] [facility] 01/18/2025 8:30 AM EST Appointment [facility] Women's Radiology [address] [place] [address] Odalis Jimenez PA-C 70 [facility] 5th [place] [address] [email or web address] 02/01/2025 8:40 AM EST Office Visit [facility] Otolaryngology 45 [facility] ASB2-2 [place] [address] Demetrio Armstrong MD [address] [place] [address] [email or web address] 02/25/2025 9:30 AM EST Telemedicine [facility] Cardiovascular Clinic [address] [place] [address] Guanakito Gallardo MD [address] [place] [address] 07/04/2025 10:00 AM EDT Telemedicine [facility] Cardiovascular Clinic [address] [place] [address] Thiago Bean MD [address] [place] [address] [email or web address] 10/18/2025 7:05 AM EDT Hospital Encounter [facility] EKG [address] [place] [address] Guanakito Gallardo MD [address] [place] [address] Arrived documented as of this encounter Visit Diagnoses Not on filedocumented in this encounter Additional Health Concerns Infection Onset Date Last Indicated Resolved Time COVID-19 04/06/2023 04/06/2023 04/27/2023 1:21 AM EST CoV-Risk 07/17/2024 07/17/2024 07/28/2024 1:21 AM EDT documented as of this encounter Care Teams Marketing Programs Specialist Relationship Specialty Start Date End Date Aubrey Taylor MD [address] [place] [address] PCP - General Internal Medicine 05/28/22 08/03/22 Jn Cline DO [address] [place] [address] [email or web address] PCP - General Hospitalist 08/04/22 08/12/22 Aubrey Taylor MD [address] [place] [address] PCP - General Internal Medicine 08/13/22 09/14/22 Marilynn Daly, DISTRICT BRANCH MANAGER PCP - General Nurse Practitioner 09/15/22 10/12/22 Grecia Bonilla MD [address] [place] [address] [place] [address] PCP - General Internal Medicine 10/13/22 Indigo Du, [address] [address] [email or web address] Oracle Erp Architect Oncology 07/27/22 Hermelinda Barajas MD [address] [place] [address] Pedro@[email or web address] Medical Oncology 11/29/22 Cindi Shell CNP [address] [place] [address] Fina@[email or web address] Gerontology 11/29/22 Zuri Ha RN [address] [place] [address] Milton@[facility] Primary Infusion Nurse 01/10/24 05/14/24 Carlos Alberto King MD, [place] [address] [place] [address] Department of Psychosocial Oncology and Palliative Care, [place] [phone] Jaelyn@[facility] Hospice and Palliative Care 04/05/24 Patria Luevano, RN [address] [place] [address] STEFANO@[facility] Primary Infusion Nurse 05/15/24 Jennie Ferreira RN [address] [place] [address] ALISON@[facility] Associate Infusion Nurse 10/02/24 documented as of this encounter Additional Source Comments The information contained in this document represents components of the legal health record. It is not the complete legal health record.[facility]
--- OUTSIDE RECORDS SUMMARY | 2024-11-20 11:58 | XMS_ITS | Encounter Summary ---
Author Organization [facility] Address [address] [facility] [address] [place] [address] Phone Care Team Providers Care Plasma Cutting Machine Operator Name Role Phone Indigo DuSW Unavailable [phone] Aubrey Taylor MD Primary Care Provider [phone] Marilynn Daly NP Primary Care Provider Unavailab Grecia Rosado MD Primary Care Provider Hermelinda Barajas MD Unavailable [phone] Cindi Shell [facility] Unavailable [phone] Zuri Ha RN Unavailable Sandra Ruiz@[email or web address] Carlos Alberto [place], [place] Unavailable [phone] Patria Luevano RN Unavailable TOBIAS [email or web address] Jennie Ferreira RN Unavailable ALISON@ [email or web address] Encounter Details Date Type Department Care Team (Late st Contact Info) Description 09/10/2022 Procedure Pass [facility] [place] 300 [facility] 3rd [place] [address] Social History Tobacco Use Types [...] Human [facility] and Women's Radiology 70 [place] [address] 10/23/2024 Procedure Pass [facility] EKG 70 [place] [address] 10/23/2024 Procedure Pass [facility] EKG 70 [place] [address] 11/13/2024 Procedure Pass [address] [address] 11/13/2024 Procedure Pass [address] [address] 11/22/2024 1:00 PM EDT Telemedicine [facility] Endocrine, Diabetes, and Hypertension 221 [facility] 2nd [place] [address] Svetlana Lucero, PharmD 75 [place] [address] [email or web address] 11/26/2024 1:00 PM EDT Social Work Social Work Department, [facility] [place] 300 [facility] 4th [place] [address] Hermelinda Barajas MD 450 [facility] [address] [place] [address] Pedro@[facility] Indigo Du, DRILLING FIELD SPECIALIST 300 [place] [address] [email or web address] 12/04/2024 7:30 AM EDT Blood Draw Laboratory Services, [address], 2nd Floor [place], [place] Hermelinda Barajas MD [address] [place] [address] Pedro@[facility] 12/04/2024 8:30 AM EDT Office Visit [facility], [address], 9th [place] [address] Cindi Shell CNP [address] [place] [address] Benedict east@[facility] Hermelinda Barajas MD [address] [place] [address] Pedro@[facility] 12/04/2024 9:30 AM EDT Infusion Infusion Therapy Services Yawkey 9, [address], 9th [place] [address] Cindi Shell WELDER/FITTER [address] [place] [address] Benedict east@[facility] Patria Luevano, BRIELLE [address] [place] [address] STEFANO@[facility] 12/25/2024 6:30 AM EDT Blood Draw Laboratory Services, [facility] 450 [facility], 2nd [place] [address] Cindi Shell CNP 450 [place] [address] Benedict east@[facility] 12/25/2024 7:30 AM EDT Office Visit [facility], [address], 9th [place] [address] Cindi Shell CNP [address] [place] [address] Benedict east@[facility] 12/25/2024 8:30 AM EDT Infusion Infusion Therapy Services [facility] 9, [address], 9th [place] [address] Cindi Shell CNP [address] [place] [address] Benedict east@[facility] 01/11/2025 11:45 AM EST Appointment [facility], [address] [address] Hermelinda Barajas MD [address] [place] [address] 1240 [place] [address] Pedro@[facility] 01/15/2025 7:10 AM EST Blood Draw Laboratory Services, [address], 2nd [place] [address] Cindi Shell CNP 450 [place] [address] Benedict east@[facility] 01/15/2025 8:00 AM EST Office Visit [facility] for [facility], [facility] [address] [facility], 9th [place] [address] Hermelinda Barajas MD 450 [facility] 1240 [place] [address] [email or web address] 01/15/2025 9:00 AM EST Infusion Infusion Therapy Services [address], 9th [place] [address] Cindi Shell CNP 450 [place] [address] Benedict east@[facility] 01/18/2025 7:35 AM EST Hospital Encounter [facility] EKG 70 [place] [address] Guanakito Gallardo MD [address] [place] [address] [place] [address] [email or web address] Arrived 01/18/2025 8:30 AM EST Appointment [facility] 70 [place] [address] Odalis Jimenez PA-C 70 [facility] 5th [place] [address] [email or web address] 02/01/2025 8:40 AM EST Office Visit [facility] Otolaryngology 45 [facility] ASB2-2 [place] [address] Demetrio Armstrong MD 45 [place] [phone] [email or web address] 02/25/2025 9:30 AM EST Telemedicine [facility] Cardiovascular Clinic 70 [place] [address] Guanakito Gallardo MD [address] [place] [address] [email or web address] 07/04/2025 10:00 AM EDT Telemedicine [facility] Cardiovascular Clinic [address] [place] [address] Thiago Bean MD [address] [place] [address] [email or web address] 10/18/2025 7:05 AM EDT Hospital Encounter [facility] EKG 70 [place] [address] Guanakito Gallardo MD [address] [place] [address] [email or web address] Arrived documented as of this encounter Visit Diagnoses Not on filedocumented in this encounter Additional Health Concerns Infection Onset Date Last Indicated Resolved Time COVID-19 04/06/2023 04/06/2023 04/27/2023 1:21 AM EST CoV-Risk 07/17/2024 07/17/2024 07/28/2024 1:21 AM EDT documented as of this encounter Care Teams Plasma Cutting Machine Operator Relationship Specialty Start Date End Date Aubrey Taylor MD [address] [place] [address] PCP - General Internal Medicine 08/13/22 09/14/22 Marilynn Daly NP PCP - General Nurse Practitioner 09/15/22 10/12/22 Grecia Bonilla MD [address] [place] [address] [place] [address] PCP - General Internal Medicine 10/13/22 Indigo Du, DRILLING FIELD SPECIALIST [address] [place] [address] [email or web address] Flat Cutter Oncology 07/27/22 Hermelinda Barajas MD [address] [place] [address] Pedro@[email or web address] Medical Oncology 11/29/22 Cindi Shell CNP [address] [place] [address] Fina@[email or web address] Gerontology 11/29/22 Zuri Ha, BRIELLE [address] [place] [address] Milton@[facility] Primary Infusion Nurse 01/10/24 05/14/24 Carlos Alberto King MD, [place] [address] [place] [address] Department of Psychosocial Oncology and Palliative Care, [place] [phone] Jaelyn@[email or web address] Hospice and Palliative Care 04/05/24 Patria Luevano, BRIELLE [address] [place] [address] STEFANO@[facility] Primary Infusion Nurse 05/15/24 Jennie Ferreira, BRIELLE [address] [place] [address] [email or web address] Associate Infusion Nurse 10/02/24 documented as of this encounter Additional Source Comments The information contained in this document represents components of the legal health record. It is not the complete legal health record.[facility]
--- OUTSIDE RECORDS SUMMARY | 2024-11-20 11:58 | XMS_ITS | Encounter Summary ---
Author Organization [facility] Address [address] [facility] [address] [place] [address] Phone Care Team Providers Care Collect On Delivery Clerk Name Role Phone Indigo DuSW Unavailable Grecia Bonilla MD Primary Care Provider Hermelinda Barajas MD Unavailable [phone] Cindi Shell [facility] Unavailable Carlos Alberto [place] MD, [place] Unavailable Patria Luevano RN Unavailable TOBIAS [email or web address].[place] Jennie Ferreira RN Unavailable ALISON@ [facility] Reason for Visit * Reason Onset Date Comments Antonshreyass/pt returning call 10/19/2024 Encounter Details Date Type Department Care Team ([facility] st Contact Info) Description 10/19/2024 Telephone [facility] Cardi[facility] Clinic [address] [place] [address] Melanie Cruz, PA-C 75 [facility] [address] [place] [address] [email or web address] Nancy/pt returning call Social History Tobacco Use [...] that he is supposed to download the [employer] mobile esther on his phone and there is a $12 monthly charge that he does not want to pay for. Please try calling pt again. CB# [phone] Thank you, Kirsten Majano Patient Rehab Assistant Department of Medicine Access Center documented in this encounter Plan of Treatment Upcoming Encounters Date Type Department Care Team (Late st Contact Info) Description 10/18/2024 Procedure Pass [facility] [address] [place] [address] 10/23/2024 Procedure Pass [facility] EKG [address] [place] [address] 10/23/2024 Procedure Pass [facility] EKG [address] [place] [address] 11/13/2024 Procedure Pass [address] [address] 11/13/2024 Procedure Pass [address] [address] 11/22/2024 1:00 PM EDT Telemedicine [facility] Endocrine, Diabetes, and Hypertension [address] [address] Svetlana Lucero, PharmD 75 [place] [address] nilam@[email or web address] 11/26/2024 1:00 PM EDT Social Work Social Work Department, [facility] Ruth at [address] [address] Hermelinda Barajas MD [address] [place] [address] Pedro@[facility] Indigo Du, [facility] [address] [place] [address] christina@[facility] 12/04/2024 7:30 AM EDT Blood Draw Laboratory Services, [address] Hermelinda Barajas MD [address] [place] [address] Pedro@[facility] 12/04/2024 8:30 AM EDT Office Visit [facility], [address], 9th [place] [address] Cindi Shell CNP [address] [place] [address] Benedict east@[facility] Hermelinda Barajas MD [address] [place] [address] 1240 [place] [address] Pedro@[facility] 12/04/2024 9:30 AM EDT Infusion Infusion Therapy Services [facility] 9, [address], 9th [place] [address] Cindi Shell CNP [address] [place] [address] Benedict east@[facility] Patria Luevano, BRIELLE [address] [place] [address] STEFANO@[facility] 12/25/2024 6:30 AM EDT Blood Draw Laboratory Services, [address], 2nd [place] [address] Cindi Shell CNP [address] [place] [address] Benedict east@[facility] 12/25/2024 7:30 AM EDT Office Visit [facility], [address], 9th [place] [address] Cindi Shell CNP [address] [place] [address] Benedict east@[facility] 12/25/2024 8:30 AM EDT Infusion Infusion Therapy Services [facility] 9, [address], 9th [place] [address] Cindi Shell, SEMICONDUCTORS WAFER BREAKER [address] [place] [address] Benedict east@[facility] 01/11/2025 11:45 AM EST Appointment [facility], [address] [address] Hermelinda Barajas MD [address] [place] [address] Pedro@[facility] 01/15/2025 7:10 AM EST Blood Draw Laboratory Services, [address], 2nd [place] [address] Cindi Shell SEMICONDUCTORS WAFER BREAKER [address] [place] [address] Benedict east@[facility] 01/15/2025 8:00 AM EST Office Visit [facility], [address], 9th [place] [address] Hermelinda Barajas MD [address] [place] [address] Pedro@[facility] 01/15/2025 9:00 AM EST Infusion Infusion Therapy Services [facility] 9, [facility] 450 [facility], 9th [place] [address] Cindi Shell CNP [address] [place] [address] CindiMukeshWalter east@[facility] 01/18/2025 7:35 AM EST Hospital Encounter [facility] EKG [address] [place] [address] Guanakito Gallardo MD [address] [place] [address] [place] [address] [email or web address] Arrived 01/18/2025 8:30 AM EST Appointment [facility] [address] [place] [address] Odalis Jimenez PA-C 70 [facility] 5th [place] [address] [email or web address] 02/01/2025 8:40 AM EST Office Visit [facility] Otolaryngology 45 [facility]2-2 [place] [address] Demetrio Armstrong MD 45 [place] [phone] [email or web address] 02/25/2025 9:30 AM EST Telemedicine [facility] Cardi[facility] Clinic 70 [place] [address] Guanakito Gallardo MD [address] [place] [address] [place] [address] [email or web address] 07/04/2025 10:00 AM EDT Telemedicine [facility] [address] [place] [address] Thiago Bean MD [address] [place] [address] [email or web address] 10/18/2025 7:05 AM EDT Hospital Encounter [facility] EKG [address] [place] [address] Guanakito Gallardo MD [address] [place] [address] [place] [address] [email or web address] Arrived documented as of this encounter Visit Diagnoses Not on filedocumented in this encounter Care Teams Collect On Delivery Clerk Relationship Specialty Start Date End Date Grecia Bonilla MD [address] [place] [address] [place] [address] PCP - General Internal Medicine 10/13/22 Indigo Du, [facility] [address] [place] [address] [email or web address] Magician Helper Oncology 07/27/22 Hermelinda Barajas MD [address] [place] [address] Pedro@[facility] Medical Oncology 11/29/22 Cindi Shell CNP [address] [place] [address] [place] [address] Fina@[facility] Gerontology 11/29/22 Carlos Alberto [place] MD, [place] [address] [place] [address] Department of Psychosocial Oncology and Palliative Care, [place] [phone] Jaelyn@[email or web address] Hospice and Palliative Care 04/05/24 Patria Luevano, BRIELLE [address] [place] [address] STEFANO@[facility] Primary Infusion Nurse 05/15/24 Jennie Ferreira, BRIELLE [address] [place] [address] ALISON@[email or web address] Associate Infusion Nurse 10/02/24 documented as of this encounter Additional Source Comments The information contained in this document represents components of the legal health record. It is not the complete legal health record.[facility]
--- OUTSIDE RECORDS SUMMARY | 2024-11-20 11:58 | XMS_ITS | Encounter Summary ---
Author Organization [facility] Address [address] [facility] [address] [place] [address] Phone Care Team Providers Care Integrity Director Name Role Phone Indigo DuSW Unavailable [phone] Aubrey Taylor MD Primary Care Provider [phone] Marilynn Daly NP Primary Care Provider Unavailab Grecia Rosado MD Primary Care Provider Hermelinda Barajas MD Unavailable [phone] Cindi Shell [facility] Unavailable Zuri Ha RN Unavailable Sandra Ruiz@[facility] Carlos Alberto [place] MD, [place] Unavailable [phone] Patria Luevano RN Unavailable TOBIAS HYATT@[facility] Jennie Ferreira RN Unavailable ALISON@ [facility] Encounter Details Date Type Department Care Team (Late st Contact Info) Description 08/13/2022 Procedure Pass [facility] [place] 300 [facility] 3rd [place] [address] Social History Tobacco Use Types [...] st Contact Info) Description 10/18/2024 Procedure Pass [facility] and Women's Radiology [address] [place] [address] 10/23/2024 Procedure Pass [facility] EKG [address] [place] [address] 10/23/2024 Procedure Pass [facility] EKG [address] [place] [address] 11/13/2024 Procedure Pass [address] [address] 11/13/2024 Procedure Pass [address] [address] 11/22/2024 1:00 PM EDT Telemedicine [facility] Endocrine, Diabetes, and Hypertension 221 [facility] 2nd [place] [address] Svetlana Lucero, PharmD 75 [place] [address] [email or web address] 11/26/2024 1:00 PM EDT Social Work Social Work Department, [facility] [place] 300 [facility] 4th [place] [address] Hermelinda Barajas MD 450 [facility] [address] [place] [address] Pedro@[facility] Indigo Du, HEALTH AND SAFETY TRAINER [address] [place] [address] christina@[facility] 12/04/2024 7:30 AM EDT Blood Draw Laboratory Services, [address], 2nd Floor [place], [place] Hermelinda Barajas MD [address] [place] [address] Pedro@[facility] 12/04/2024 8:30 AM EDT Office Visit [facility], [address], 9th [place] [address] Cindi Shell CNP [address] [place] [address] Benedict east@[facility] Hermelinda Barajas MD [address] [place] [address] Pedro@[facility] 12/04/2024 9:30 AM EDT Infusion Infusion Therapy Services [place] 9, [address], 9th [place] [address] Cindi Shell DOUGH BRAKE MACHINE OPERATOR [address] [place] [address] Benedict east@[facility] Patria Luevano, BRIELLE [address] [place] [address] STEFANO@[facility] 12/25/2024 6:30 AM EDT Blood Draw Laboratory Services, [facility] 450 [facility], 2nd [place] [address] Cindi Shell CNP 450 [place] [address] Benedict east@[facility] 12/25/2024 7:30 AM EDT Office Visit [facility], [address], 9th [place] [address] Cindi Shell CNP [address] [place] [address] Benedict east@[facility] 12/25/2024 8:30 AM EDT Infusion Infusion Therapy Services [place] 9, [address], 9th [place] [address] Cindi Shell CNP [address] [place] [address] Benedict east@[facility] 01/11/2025 11:45 AM EST Appointment [facility], [address] [address] Hermelinda Barajas MD [address] [place] [address] 1240 [place] [address] Pedro@[facility] 01/15/2025 7:10 AM EST Blood Draw Laboratory Services, [address], 2nd [place] [address] Cindi Shell CNP 450 [place] [address] Benedict east@[facility] 01/15/2025 8:00 AM EST Office Visit [facility], [facility] 450 [facility], 9th [place] [address] Hermelinda Barajas MD 450 [facility] 1240 [place] [address] Pedro@[email or web address] 01/15/2025 9:00 AM EST Infusion Infusion Therapy Services [address], 9th [place] [address] Cindi Shell CNP 450 [place] [address] Benedict east@[facility] 01/18/2025 7:35 AM EST Hospital Encounter [facility] EKG 70 [place] [address] Guanakito Gallardo MD [address] [place] [address] [place] [address] [email or web address] Arrived 01/18/2025 8:30 AM EST Appointment [facility] 70 [place] [address] Odalis Jimenez PA-C 70 [facility] 5th [place] [address] [email or web address] 02/01/2025 8:40 AM EST Office Visit [facility] Otolaryngology 45 [facility] ASB2-2 [place] [address] Demetrio Armstrong MD 45 [place] [phone] [email or web address]@[email or web address] 02/25/2025 9:30 AM EST Telemedicine [facility] 70 [place] [address] Guanakito Gallardo MD [address] [place] [address] [email or web address] 07/04/2025 10:00 AM EDT Telemedicine [facility] [address] [place] [address] Thiago Bean MD [address] [place] [address] [email or web address]@[email or web address] 10/18/2025 7:05 AM EDT Hospital Encounter [facility] EKG 70 [place] [address] Guanakito Gallardo MD [address] [place] [address] [email or web address] Arrived documented as of this encounter Visit Diagnoses Not on filedocumented in this encounter Additional Health Concerns Infection Onset Date Last Indicated Resolved Time COVID-19 04/06/2023 04/06/2023 04/27/2023 1:21 AM EST CoV-Risk 07/17/2024 07/17/2024 07/28/2024 1:21 AM EDT documented as of this encounter Care Teams Integrity Director Relationship Specialty Start Date End Date Aubrey Taylor MD [address] [place] [address] PCP - General Internal Medicine 08/13/22 09/14/22 Marilynn Daly NP PCP - General Nurse Practitioner 09/15/22 10/12/22 Grecia Bonilla MD [address] [place] [address] [place] [address] PCP - General Internal Medicine 10/13/22 Indigo Du, HEALTH AND SAFETY TRAINER [address] [place] [address] [email or web address] Bread Wrapping Machine Feeder Oncology 07/27/22 Hermelinda Barajas MD [address] [place] [address] Pedro@[facility] Medical Oncology 11/29/22 Cindi Shell CNP [address] [place] [address] Fina@[facility] Gerontology 11/29/22 Zuri Ha, BRIELLE [address] [place] [address] Milton@[facility] Primary Infusion Nurse 01/10/24 05/14/24 Carlos Alberto [place], [place] [address] [place] [address] Department of Psychosocial Oncology and Palliative Care, [place] [address] Jaelyn@[facility] Hospice and Palliative Care 04/05/24 Patria Luevano, BRIELLE [address] [place] [address] STEFANO@[facility] Primary Infusion Nurse 05/15/24 Jennie Ferreira, BRIELLE [address] [place] [address] ALISON@[facility] Associate Infusion Nurse 10/02/24 documented as of this encounter Additional Source Comments The information contained in this document represents components of the legal health record. It is not the complete legal health record.[facility]
--- OUTSIDE RECORDS SUMMARY | 2024-11-20 11:58 | XMS_ITS | Encounter Summary ---
Author Organization [facility] Address [address] [facility] [address] [place] [address] Phone Care Team Providers Care Manager Casino Name Role Phone Indigo DuSW Unavailable [phone] Aubrey Taylor MD Primary Care Provider [phone] Marilynn Daly NP Primary Care Provider Unavailab Grecia Rosado MD Primary Care Provider Hermelinda Barajas MD Unavailable [phone] Cindi Shell [facility] Unavailable Zuri Ha RN Unavailable Sandra Ruiz@[facility] Carlos Alberto [place] MD, [place] Unavailable [phone] Patria Luevano RN Unavailable TOBIAS HYATT@[facility] Jennie Ferreira RN Unavailable ALISON@ [facility] Encounter Details Date Type Department Care Team (Late st Contact Info) Description 08/13/2022 Procedure Pass [facility] [place] 300 [facility] 3rd [place] [address] Social History Tobacco Use Types [...] [facility] 70 [place] [address] 10/23/2024 Procedure Pass [facility] EKG 70 [place] [address] 10/23/2024 Procedure Pass [facility] EKG 70 [place] [address] 11/13/2024 Procedure Pass [address] [address] 11/13/2024 Procedure Pass [address] [address] 11/22/2024 1:00 PM EDT Telemedicine [facility] Endocrine, Diabetes, and Hypertension 221 [facility] 2nd [place] [address] Svetlana Lucero, PharmD 75 [place] [address] [email or web address] 11/26/2024 1:00 PM EDT Social Work Social Work Department, [facility] [place] [facility] [place] 300 [facility] 4th [place] [address] Hermelinda Barajas MD 450 [facility] [address] [place] [address] Pedro@[facility] Indigo Du, SCARF AND ANNEAL OPERATOR 300 [place] [address] [email or web address] 12/04/2024 7:30 AM EDT Blood Draw Laboratory Services, [address], 2nd [place], [place] Hermelinda Barajas MD [address] [place] [address] Pedro@[facility] 12/04/2024 8:30 AM EDT Office Visit [facility], [address], 9th [place] [address] Cindi Shell CNP [address] [place] [address] Benedict east@[facility] Hermelinda Barajas MD [address] [place] [address] Pedro@[facility] 12/04/2024 9:30 AM EDT Infusion Infusion Therapy Services [facility] 9, [address], 9th [place] [address] Cindi Shell SANDBLASTER STONE [address] [place] [address] Benedict east@[facility] Patria Luevano, BRIELLE [address] [place] [address] [email or web address]@[facility] 12/25/2024 6:30 AM EDT Blood Draw Laboratory Services, [facility] 450 [facility], 2nd [place] [address] Cindi Shell CNP 450 [place] [address] Benedict east@[facility] 12/25/2024 7:30 AM EDT Office Visit [facility], [address], 9th [place] [address] Cindi Shell CNP [address] [place] [address] Benedict east@[facility] 12/25/2024 8:30 AM EDT Infusion Infusion Therapy Services [facility] 9, [address], 9th [place] [address] Cindi Shell CNP [address] [place] [address] Benedict east@[facility] 01/11/2025 11:45 AM EST Appointment [facility], [address] [address] Hermelinda Barajas MD [address] [place] [address] 1240 [place] [address] Pedro@[facility] 01/15/2025 7:10 AM EST Blood Draw Laboratory Services, [address], 2nd [place] [address] Cindi Shell CNP 450 [place] [address] Benedict east@[facility] 01/15/2025 8:00 AM EST Office Visit [facility] for [facility], [facility] 450 [facility], 9th [place] [address] Hermelinda Barajas MD 450 [facility] 1240 [place] [address] Pedro@[email or web address] 01/15/2025 9:00 AM EST Infusion Infusion Therapy Services [address], 9th [place] [address] Cindi Shell CNP 450 [place] [address] Benedict east@[facility] 01/18/2025 7:35 AM EST Hospital Encounter [facility] EKG 70 [place] [address] Guanakito Gallardo MD [address] [place] [address] [place] [address] [email or web address] Arrived 01/18/2025 8:30 AM EST Appointment [facility] Women's Radiology 70 [place] [address] Odalis Jimenez PA-C 70 [facility] 5th [place] [address] [email or web address] 02/01/2025 8:40 AM EST Office Visit [facility] Otolaryngology 45 [facility] ASB2-2 [place] [address] Demetrio Armstrong MD 45 [place] [address] [email or web address] 02/25/2025 9:30 AM EST Telemedicine [facility] 70 [place] [address] Guanakito Gallardo MD [address] [place] [address] [email or web address] 07/04/2025 10:00 AM EDT Telemedicine [facility] [address] [place] [address] Thiago Bean MD [address] [place] [address] [email or web address] 10/18/2025 7:05 AM EDT Hospital Encounter [facility] EKG 70 [place] [address] Guanakito Gallardo MD [address] [place] [address] [email or web address] Arrived documented as of this encounter Visit Diagnoses Not on filedocumented in this encounter Additional Health Concerns Infection Onset Date Last Indicated Resolved Time COVID-19 04/06/2023 04/06/2023 04/27/2023 1:21 AM EST CoV-Risk 07/17/2024 07/17/2024 07/28/2024 1:21 AM EDT documented as of this encounter Care Teams Manager Casino Relationship Specialty Start Date End Date Aubrey Taylor MD [address] [place] [address] PCP - General Internal Medicine 08/13/22 09/14/22 Marilynn Daly NP PCP - General Nurse Practitioner 09/15/22 10/12/22 Grecia Bonilla MD [address] [place] [address] [place] [address] PCP - General Internal Medicine 10/13/22 Indigo Du, SCARF AND ANNEAL OPERATOR 300 [place] [address] [email or web address] Legal Receptionist Oncology 07/27/22 Hermelinda Barajas MD [address] [place] [address] Pedro@[facility] Medical Oncology 11/29/22 Cindi Shell CNP [address] [place] [address] Fina@[facility] Gerontology 11/29/22 Zuri Ha, BRIELLE [address] [place] [address] Milton@[facility] Primary Infusion Nurse 01/10/24 05/14/24 Carlos Alberto [place] MD, [place] [address] [place] [address] Department of Psychosocial Oncology and Palliative Care, [place] [phone] Jaelyn@[facility] Hospice and Palliative Care 04/05/24 Patria Luevano, BRIELLE [address] [place] [address] STEFANO@[facility] Primary Infusion Nurse 05/15/24 Jennie Ferreira, BRIELLE [address] [place] [address] ALISON@[facility] Associate Infusion Nurse 10/02/24 documented as of this encounter Additional Source Comments The information contained in this document represents components of the legal health record. It is not the complete legal health record.[facility]
--- OUTSIDE RECORDS SUMMARY | 2024-11-20 11:58 | XMS_ITS | Encounter Summary ---
Author Organization [facility] Address [address] [place] [address] Phone Care Team Providers Care Flight Attendant/Inflight Manager Name Role Phone Indigo DuSW Unavailable Grecia Bonilla MD Primary Care Provider Hermelinda Barajas MD Unavailable [phone] Cindi Shell ANALYTICAL MANAGER Unavailable Zuri Ha RN Unavailable Sandra [email or web address] Carlos Alberto King MD, [place] Unavailable Patria Luevano RN Unavailable TOBIAS [email or web address] Jennie Ferreira RN Unavailable ALISON@ [email or web address] Encounter Details Date Type Department Care Team (Late st Contact Info) Description 03/06/2024 Procedure Pass [facility], Ct Scan - [facility] 30 [place] [address] Social History Tobacco Use Types Packs/Day Years [...] 10/18/2024 Procedure Pass [facility] 70 [place] [address] 10/23/2024 Procedure Pass [facility] EKG 70 [place] [address] 10/23/2024 Procedure Pass [facility] EKG 70 [place] [address] 11/13/2024 Procedure Pass [address] [address] 11/13/2024 Procedure Pass [address] [address] 11/22/2024 1:00 PM EDT Telemedicine [facility] Endocrine, Diabetes, and Hypertension 221 [facility] 2nd [place] [address] Svetlana Lucero, PharmD 75 [place] [address] [email or web address] 11/26/2024 1:00 PM EDT Social Work Social Work Department, [facility] 300 [facility] 4th [place] [address] Hermelinda Barajas MD 450 [facility] 1240 [place] [address] Pedro@[email or web address] Indigo Du, [facility] 300 [place] [address] [email or web address]@[facility] 12/04/2024 7:30 AM EDT Blood Draw Laboratory Services, [address], 2nd [place] [address] Hermelinda Barajas MD 450 [facility] 1240 [place] [address] Pedro@[email or web address] 12/04/2024 8:30 AM EDT Office Visit [facility], [facility] 450 [facility], 9th [place] [address] Cindi Shell ANALYTICAL MANAGER [address] [place] [address] Benedict east@[facility] Hermelinda Barajas MD 450 [facility] 1240 [place] [address] Pedro@[facility] 12/04/2024 9:30 AM EDT Infusion Infusion Therapy Services Yawkey 9, [facility] 450 [facility], 9th [place] [address] Cindi Shell ANALYTICAL MANAGER 450 [place] [address] Benedict east@[facility] Patria Luevano, BRIELLE 450 [place] [address] STEFANO@[email or web address] 12/25/2024 6:30 AM EDT Blood Draw Laboratory Services, [address], 2nd [place] [address] Cindi Shell, ANALYTICAL MANAGER [address] [place] [address] Benedict east@[facility] 12/25/2024 7:30 AM EDT Office Visit [facility], [address], 9th [place] [address] Cindi Shell, ANALYTICAL MANAGER [address] [place] [address] Benedict east@[facility] 12/25/2024 8:30 AM EDT Infusion Infusion Therapy Services Sowmya 9, [address], 9th [place] [address] Cindi Shell ANALYTICAL MANAGER [address] [place] [address] Benedict east@[facility] 01/11/2025 11:45 AM EST Appointment [facility], [address] [address] Hermelinda Barajas MD [address] [place] [address] 1240 [place] [address] Pedro@[facility] 01/15/2025 7:10 AM EST Blood Draw Laboratory Services, [address], 2nd [place] [address] Cindi Shell CNP 450 [place] [address] Benedict east@[facility] 01/15/2025 8:00 AM EST Office Visit [facility], [address], 9th [place] [address] Hermelinda Barajas MD [address] [place] [address] Pedro@[facility] 01/15/2025 9:00 AM EST Infusion Infusion Therapy Services Yawkey 9, [address], 9th [place] [address] Cindi Shell CNP [address] [place] [address] Benedict east@[facility] 01/18/2025 7:35 AM EST Hospital Encounter [facility] EKG 70 [place] [address] Guanakito Gallardo MD [address] [place] [address] [place] [address] Arrived 01/18/2025 8:30 AM EST Appointment [facility] 70 [place] [address] Odalis Jimenez PA-C 70 [facility] 5th [place] [address] [email or web address] 02/01/2025 8:40 AM EST Office Visit [facility] Otolaryngology 45 [facility] ASB2-2 [place] [address] Demetrio Armstrong MD 45 [place] [phone] [email or web address] 02/25/2025 9:30 AM EST Telemedicine [facility] [address] [place] [address] Guanakito Gallardo MD [address] [place] [address] [email or web address] 07/04/2025 10:00 AM EDT Telemedicine [facility] [address] [place] [address] Thiago Bean MD [address] [place] [address] [email or web address] 10/18/2025 7:05 AM EDT Hospital Encounter [facility] EKG 70 [place] [address] Guanakito Gallardo MD [address] [place] [address] [place] [address] [email or web address] Arrived documented as of this encounter Visit Diagnoses Not on filedocumented in this encounter Additional Health Concerns Infection Onset Date Last Indicated Resolved Time CoV-Risk 07/17/2024 07/17/2024 07/28/2024 1:21 AM EDT documented as of this encounter Care Teams Flight Attendant/Inflight Manager Relationship Specialty Start Date End Date Grecia Bonilla MD [address] [place] [address] [place] [phone] PCP - General Internal Medicine 10/13/22 Indigo Du, [facility] 300 [place] [address] [email or web address] Lacquer Dipping Machine Operator Oncology 07/27/22 Hermelinda Barajas MD [address] [place] [address] Pedro@[facility] Medical Oncology 11/29/22 Cindi Shell CNP [address] [place] [address] Fina@[facility] Gerontology 11/29/22 Zuri Ha, BRIELLE [address] [place] [address] Milton@[facility] Primary Infusion Nurse 01/10/24 05/14/24 Carlos Alberto King MD, [place] [address] [place] [address] Department of Psychosocial Oncology and Palliative Care, [place] [address] Jaelyn@[facility] Hospice and Palliative Care 04/05/24 Patria Luevano, BRIELLE [address] [place] [address] [email or web address]@[facility] Primary Infusion Nurse 05/15/24 Jennie Ferreira RN [address] [place] [address] ALISON@[facility] Associate Infusion Nurse 10/02/24 documented as of this encounter Additional Source Comments The information contained in this document represents components of the legal health record. It is not the complete legal health record.[facility]
--- OUTSIDE RECORDS SUMMARY | 2024-11-20 11:58 | XMS_ITS | Encounter Summary ---
Author Organization [facility] Address [address] [place] [address] Phone Care Team Providers Care [place] Name Role Phone Aubrey Taylor MD Primary Care Provider [phone] Indigo Du [facility] Unavailable Jn Cline DO Primary Care Provider Aubrey Taylor MD Primary Care Provider [phone] Marilynn Daly NP Primary Care Provider Unavailab Grecia Rosado MD Primary Care Provider Hermelinda Barajas MD Unavailable [phone] Cindi Shell REHABILITATION AIDE/SCHEDULER Unavailable Zuri Ha RN Unavailable Sandra Ruiz@[email or web address] Carlos Alberto King MD, [place] Unavailable [phone] Patria Luevano RN Unavailable TOBIAS [email or web address] Jennie Ferreira RN Unavailable [email or web address]@ [email or web address] Encounter Details Date Type Department Care Team (Late st Contact Info) Description 06/25/2022 Procedure Pass [facility] 70 [place] [address] Social History Tobacco Use Types Packs/Day Years [...] Procedure Pass [facility] 70 [place] [address] 10/23/2024 Procedure Pass [facility] EKG 70 [place] [address] 10/23/2024 Procedure Pass [facility] EKG 70 [place] [address] 11/13/2024 Procedure Pass [address] [address] 11/13/2024 Procedure Pass [address] [address] 11/22/2024 1:00 PM EDT Telemedicine [facility] Endocrine, Diabetes, and Hypertension [address] [address] Svetlana Lucero, PharmD 75 [place] [address] [email or web address] [facility] 11/26/2024 1:00 PM EDT Social Work Social Work Department, [facility] 300 [facility] 4th [place] [address] Hermelinda Barajas MD 450 [facility] [address] [place] [address] Pedro@[facility] Indigo Du, CAN CUTTER 300 [place] [address] [email or web address] 12/04/2024 7:30 AM EDT Blood Draw Laboratory Services, [address], 2nd Floor [place], [place] Hermelinda Barajas MD [address] [place] [address] 1240 [place] [address] Pedro@[facility] 12/04/2024 8:30 AM EDT Office Visit [facility] for [facility], [address], 9th [place] [address] Cindi Shell REHABILITATION AIDE/SCHEDULER [address] [place] [address] Benedict east@[facility] Hermelinda Barajas MD [address] [place] [address] Pedro@[facility] 12/04/2024 9:30 AM EDT Infusion Infusion Therapy Services Yawkey 9, [address], 9th [place] [address] Cindi Shell REHABILITATION AIDE/SCHEDULER [address] [place] [address] Benedict east@[facility] Patria Luevano, BRIELLE 450 [place] [address] [email or web address]@[email or web address] 12/25/2024 6:30 AM EDT Blood [facility], [address], 2nd [place] [address] Cindi Shell CNP [address] [place] [address] Benedict east@[facility] 12/25/2024 7:30 AM EDT Office Visit [facility], [address], 9th [place] [address] Cindi Shell CNP [address] [place] [address] Benedict east@[facility] 12/25/2024 8:30 AM EDT Infusion Infusion Therapy Services Yawkey 9, [address], 9th [place] [address] Cindi Shell CNP [address] [place] [address] Benedict east@[facility] 01/11/2025 11:45 AM EST Appointment [facility], [address] [address] Hermelinda Barajas MD [address] [place] [address] 1240 [place] [address] Pedro@[facility] 01/15/2025 7:10 AM EST Blood Draw Laboratory Services, [address], 2nd [place] [address] Cindi Shell REHABILITATION AIDE/SCHEDULER 450 [place] [address] Benedict east@[facility] 01/15/2025 8:00 AM EST Office Visit [facility], [facility] 450 [facility], 9th [place] [address] Hermelinda Barajas MD 450 [facility] 1240 [place] [address] [email or web address] 01/15/2025 9:00 AM EST Infusion Infusion Therapy Services [address] 450 [facility], 9th [place] [address] Cindi Shell CNP 450 [place] [address] Benedict east@[facility] 01/18/2025 7:35 AM EST Hospital Encounter [facility] EKG 70 [place] [address] Guanakito Gallardo MD 75 [facility] [place] [address] [facility] 01/18/2025 8:30 AM EST Appointment [facility] 70 [place] [address] Odalis Jimenez PA-C 70 [facility] 5th [place] [address] [email or web address] 02/01/2025 8:40 AM EST Office Visit [facility] Otolaryngology 45 [facility] ASB2-2 [place] [address] Demetrio Armstrong MD 45 [place] [phone] [email or web address] 02/25/2025 9:30 AM EST Telemedicine [facility] [address] [place] [address] Guanakito Gallardo MD [address] [place] [address] 07/04/2025 10:00 AM EDT Telemedicine [facility] [address] [place] [address] Thiago Bean MD [address] [place] [phone] laurita@[facility] 10/18/2025 7:05 AM EDT Hospital Encounter [facility] EKG 70 [place] [address] Guanakito Gallardo MD [address] [place] [address] [email or web address] Arrived documented as of this encounter Visit Diagnoses Not on filedocumented in this encounter Additional Health Concerns Infection Onset Date Last Indicated Resolved Time COVID-19 04/06/2023 04/06/2023 04/27/2023 1:21 AM EST CoV-Risk 07/17/2024 07/17/2024 07/28/2024 1:21 AM EDT documented as of this encounter Care Teams [place] Relationship Specialty Start Date End Date Aubrey Taylor MD [address] [place] [address] PCP - General Internal Medicine 05/28/22 08/03/22 Jn Cline DO [address] [address] [email or web address] PCP - General Hospitalist 08/04/22 08/12/22 Aubrey Taylor MD [address] [place] [address] PCP - General Internal Medicine 08/13/22 09/14/22 Marilynn Daly NP PCP - General Nurse Practitioner 09/15/22 10/12/22 Grecia Bonilla MD [address] [place] [address] [place] [address] PCP - General Internal Medicine 10/13/22 Indigo Du, [facility] 300 [place] [address] [email or web address] Scientific Affairs Manager Oncology 07/27/22 Hermelinda Barajas MD [address] [place] [address] Pedro@[facility] Medical Oncology 11/29/22 Cindi Shell CNP [address] [place] [address] Fina@[email or web address] Gerontology 11/29/22 Zuri Ha, BRIELLE [address] [place] [address] Milton@[facility] Primary Infusion Nurse 01/10/24 05/14/24 Carlos Alberto King MD, [place] [address] [place] [address] Department of Psychosocial Oncology and Palliative Care, [place] [address] Jaelyn@[email or web address] Hospice and Palliative Care 04/05/24 Patria Luevano, BRIELLE [address] [place] [address] STEFANO@[facility] Primary Infusion Nurse 05/15/24 Jennie Ferreira RN [address] [place] [address] ALISON@[email or web address] Associate Infusion Nurse 10/02/24 documented as of this encounter Additional Source Comments The information contained in this document represents components of the legal health record. It is not the complete legal health record.[facility]
--- OUTSIDE RECORDS SUMMARY | 2024-11-20 11:58 | XMS_ITS | Encounter Summary ---
Author Organization [facility] Address [address] [place] [address] Phone Care Team Providers Care Single Resource Boss Name Role Phone Indigo DuSW Unavailable Grecia Bonilla MD Primary Care Provider Hermelinda Barajas MD Unavailable [phone] Cindi Shell BIOFUELS OPERATIONS MANAGER Unavailable [phone] Zuri Ha RN Unavailable Sandra Ruiz@[email or web address] Carlos Alberto King MD, [place] Unavailable Patria Luevano RN Unavailable TOBIAS [email or web address] Jennie Ferreira RN Unavailable ALISON@ [facility] Encounter Details Date Type Department Care Team (Late st Contact Info) Description 10/22/2022 Procedure Pass [facility], Ct Scan - [facility] 30 [place] [address] Social History Tobacco Use Types Packs/Day Years [...] [facility] 70 [place] [address] 10/23/[address] [facility] EKG 70 [place] [address] 10/23/[address] [facility] EKG 70 [place] [address] 11/13/2024 Procedure Pass [address] [address] 11/13/2024 Procedure Pass [address] [address] 11/22/2024 1:[address] [facility] Endocrine, Diabetes, and Hypertension [address] [address] Svetlana Lucero, PharmD 75 [place] [address] [email or web address] 11/26/2024 1:00 PM EDT Social Work Social Work Department, [facility] [address] [address] Hermelinda Barajas MD [address] [place] [address] Pedro@[facility] Indigo Du, [facility] 300 [place] [address] [email or web address] 12/04/2024 7:30 AM EDT Blood Draw Laboratory Services, [address], 2nd [place], [place] Hermelinda Barajas MD [address] [place] [address] 1240 [place] [address] Pedro@[facility] 12/04/2024 8:30 AM EDT Office Visit [facility] for Thoracic Oncology, [address], 9th [place] [address] Cindi Shell BIOFUELS OPERATIONS MANAGER [address] [place] [address] Benedict east@[facility] Hermelinda Barajas MD [address] [place] [address] 1240 [place] [address] Pedro@[facility] 12/04/2024 9:30 AM EDT Infusion Infusion Therapy Services Yawkey 9, [address], 9th [place] [address] Cindi Shell BIOFUELS OPERATIONS MANAGER [address] [place] [address] Benedict east@[facility] Patria Luevano, BRIELLE [address] [place] [address] STEFANO@[facility] 12/25/2024 6:30 AM EDT Blood Draw Laboratory Services, [address], 2nd [place] [address] Cindi Shell CNP 450 [place] [address] Benedict east@[facility] 12/25/2024 7:30 AM EDT Office Visit [facility] for Thoracic Oncology, [address], 9th [place] [address] Cindi Shell CNP 450 [place] [address] Benedict east@[facility] 12/25/2024 8:30 AM EDT Infusion Infusion Therapy Services [place] [address], [address], 9th [place] [address] Cindi Shell CNP 450 [place] [address] Benedict east@[facility] 01/11/2025 11:45 AM EST Appointment [facility], [address] [address] Hermelinda Barajas MD [address] [place] [address] 1240 [place] [address] Pedro@[facility] 01/15/2025 7:10 AM EST Blood Draw Laboratory Services, [address], 2nd [place] [address] Cindi Shell BIOFUELS OPERATIONS MANAGER 450 [place] [address] Benedict east@[facility] 01/15/2025 8:00 AM EST Office Visit [facility] for [facility], [facility] 450 [facility], 9th [place] [address] Hermelinda Barajas MD 450 [facility] 1240 [place] [address] Pedro@[facility] 01/15/2025 9:00 AM EST Infusion Infusion Therapy Services [facility] 9[facility] 450 [facility], 9th [place] [address] Cindi Shell CNP 450 [place] [address] Benedict east@[facility] 01/18/2025 7:35 AM EST Hospital Encounter [facility] EKG 70 [place] [address] Guanakito Gallardo MD 75 [facility] [place] [address] [email or web address] [facility] 01/18/2025 8:30 AM EST Appointment [facility] 70 [place] [address] Odalis Jimenez PA-C 70 [facility] 5th [place] [address] [email or web address] 02/01/2025 8:40 AM EST Office Visit [facility] Otolaryngology 45 [facility] ASB2-2 [place] [address] Demetrio Armstrong MD 45 [place] [phone] [email or web address] 02/25/2025 9:30 AM EST Telemedicine [facility] [address] [place] [address] Guanakito Gallardo MD [address] [place] [address] 07/04/2025 10:00 AM EDT Telemedicine [facility] [address] [place] [address] Thiago Bean MD [address] [place] [address] [email or web address] 10/18/2025 7:05 AM EDT Hospital Encounter [facility] EKG [address] [place] [address] Guanakito Gallardo MD [address] [place] [address] Arrived documented as of this encounter Visit Diagnoses Not on filedocumented in this encounter Additional Health Concerns Infection Onset Date Last Indicated Resolved Time COVID-19 04/06/2023 04/06/2023 04/27/2023 1:21 AM EST CoV-Risk 07/17/2024 07/17/2024 07/28/2024 1:21 AM EDT documented as of this encounter Care Teams Single Resource Boss Relationship Specialty Start Date End Date Grecia Bonilla MD [address] [place] [address] [place] [address] PCP - General Internal Medicine 10/13/22 Indigo Du, [facility] 300 [place] [address] [email or web address] Maintenance Mechanic Elevators Oncology 07/27/22 Hermelinda Barajas MD [address] [place] [address] Mariah Shen [address] [place] [address] Pedro@[facility] Medical Oncology 11/29/22 Cindi Shell CNP [address] [place] [address] Fina@[facility] Gerontology 11/29/22 Zuri Ha RN [address] [place] [address] Milton@[facility] Primary Infusion Nurse 01/10/24 05/14/24 Carlos Alberto King MD, PA [address] [place] [address] Department of Psychosocial Oncology and Palliative Care, [place] [address] Jaelyn@[facility] Hospice and Palliative Care 04/05/24 Patria Luevano RN [address] [place] [address] STEFANO@[facility] Primary Infusion Nurse 05/15/24 Jennie Ferreira RN [address] [place] [address] ALISON@[facility] Associate Infusion Nurse 10/02/24 documented as of this encounter Additional Source Comments The information contained in this document represents components of the legal health record. It is not the complete legal health record.[facility]
--- OUTSIDE RECORDS SUMMARY | 2024-11-20 11:58 | XMS_ITS | Encounter Summary ---
Author Organization [facility] Address [address] [place] [address] Phone Care Team Providers Care Patient Safety Officer Name Role Phone Indigo DuSW Unavailable [phone] Grecia Bonilla MD Primary Care Provider Hermelinda Barajas MD Unavailable [phone] Cindi Shell BRANCH SERVICE REPRESENTATIVE Unavailable Zuri Ha RN Unavailable Sandra Ruiz@[email or web address] Carlos Alberto [place] MD, [place] Unavailable Patria Luevano RN Unavailable TOBIAS [email or web address]@[email or web address] Jennie Ferreira RN Unavailable ALISON@ [facility] Encounter Details Date Type Department Care Team (Late st Contact Info) Description 01/11/2024 Procedure Pass [facility] [address] [place] [address] Social History Tobacco Use Types Packs/Day Years [...] [facility] [address] [place] [address] 10/23/2024 Procedure Pass [facility] EKG [address] [place] [address] 10/23/2024 Procedure Pass [facility] EKG [address] [place] [address] 11/13/2024 Procedure Pass [address] [address] 11/13/2024 Procedure Pass [address] [address] 11/22/2024 1:00 PM EDT Telemedicine [facility] Endocrine, Diabetes, and Hypertension [address] [address] Svetlana Lucero, PharmD 75 [place] [address] [email or web address] 11/26/2024 1:00 PM EDT Social Work Social Work Department, [facility] [place] [facility] [place] [address] [address] Hermelinda Barajas MD [address] [place] [address] Pedro@[email or web address] Indigo Du, [facility] 300 [place] [address] [email or web address] 12/04/2024 7:30 AM EDT Blood Draw Laboratory Services, [address], 2nd Floor [place], [place] Hermelinda Barajas MD [address] [place] [address] 1240 [place] [address] Pedro@[facility] 12/04/2024 8:30 AM EDT Office Visit [facility], [address], 9th [place] [address] Cindi Shell CNP [address] [place] [address] Benedict east@[facility] Hermelinda Barajas MD [address] [place] [address] 1240 [place] [address] Pedro@[facility] 12/04/2024 9:30 AM EDT Infusion Infusion Therapy Services Yawkey 9, [address], 9th [place] [address] Cindi Shell BRANCH SERVICE REPRESENTATIVE [address] [place] [address] Benedict east@[facility] Patria Luevano, BRIELLE [address] [place] [address] [email or web address]@[facility] 12/25/2024 6:30 AM EDT Blood Draw Laboratory Services, [address], 2nd [place] [address] Cindi Shell CNP 450 [place] [address] Benedict east@[facility] 12/25/2024 7:30 AM EDT Office Visit [facility], [address], 9th [place] [address] Cindi Shell BRANCH SERVICE REPRESENTATIVE 450 [place] [address] Benedict east@[facility] 12/25/2024 8:30 AM EDT Infusion Infusion Therapy Services [place] [address], [address], 9th [place] [address] Cindi Shell BRANCH SERVICE REPRESENTATIVE [address] [place] [address] Benedict east@[facility] 01/11/2025 11:45 AM EST Appointment [address] [address] Hermelinda Barajas MD [address] [place] [address] 1240 [place] [address] Pedro@[email or web address] 01/15/2025 7:10 AM EST Blood Draw Laboratory Services, [address], 2nd [place] [address] Cindi Shell BRANCH SERVICE REPRESENTATIVE 450 [place] [address] Benedict east@[facility] 01/15/2025 8:00 AM EST Office Visit [facility], [facility] 450 [facility], 9th [place] [address] Hermelinda Barajas MD 450 [facility] 1240 [place] [address] Pedro@[facility] 01/15/2025 9:00 AM EST Infusion Infusion Therapy Services [place] 9[facility] 450 [facility], 9th [place] [address] Cindi Shell CNP 450 [place] [address] Benedict east@[facility] 01/18/2025 7:35 AM EST Hospital Encounter [facility] EKG [address] [place] [address] Guanakito Gallardo MD [address] [place] [address] [place] [address] [email or web address] [facility] 01/18/2025 8:30 AM EST Appointment [facility] 70 [place] [address] Odalis Jimenez PA-C 70 [facility] 5th [place] [address] [email or web address] 02/01/2025 8:40 AM EST Office Visit [facility] Otolaryngology 45 [facility] ASB2-2 [place] [address] Demetrio Armstrong MD 45 [place] [phone] [email or web address] 02/25/2025 9:[address] [facility]ovascular Clinic [address] [place] [address] Guanakito Gallardo MD [address] [place] [address] [email or web address] 07/04/2025 10:[address] [facility] [address] [place] [address] Thiago Bean MD [address] [place] [address] [email or web address]@[facility] 10/18/2025 7:05 AM EDT Hospital Encounter [facility] EKG [address] [place] [address] Guanakito Gallardo MD [address] [place] [address] [email or web address] Arrived documented as of this encounter Visit Diagnoses Not on filedocumented in this encounter Additional Health Concerns Infection Onset Date Last Indicated Resolved Time CoV-Risk 07/17/2024 07/17/2024 07/28/2024 1:21 AM EDT documented as of this encounter Care Teams Patient Safety Officer Relationship Specialty Start Date End Date Grecia Bonilla MD [address] [place] [address] [place] [address] PCP - General Internal Medicine 10/13/22 Indigo Du, [facility] 300 [place] [address] [email or web address] Russian Teacher Oncology 07/27/22 Hermelinda Barajas MD [facility] Wendy Shen 1240 [place] [address] Pedro@[email or web address] Medical Oncology 11/29/22 Cindi Shell CNP [address] [place] [address] Fina@[email or web address] Gerontology 11/29/22 Zuri Ha RN [address] [place] [address] Milton@[facility] Primary Infusion Nurse 01/10/24 05/14/24 Carlos Alberto [place] MD, [place] [address] [place] [address] Department of Psychosocial Oncology and Palliative Care, [place] [address] Jaelyn@[facility] Hospice and Palliative Care 04/05/24 Patria Luevano, BRIELLE [address] [place] [address] STEFANO@[facility] Primary Infusion Nurse 05/15/24 Jennie Ferreira RN [address] [place] [address] ALISON@[facility] Associate Infusion Nurse 10/02/24 documented as of this encounter Additional Source Comments The information contained in this document represents components of the legal health record. It is not the complete legal health record.[facility]
--- OUTSIDE RECORDS SUMMARY | 2024-11-20 11:58 | XMS_ITS | Encounter Summary ---
Author Organization [facility] Address [address] [place] [address] Phone Care Team Providers Care Display Maker Name Role Phone Indigo DuSW Unavailable Grecia Bonilla MD Primary Care Provider Hermelinda Barajas MD Unavailable [phone] Cindi Shell EXECUTIVE CASINO HOST Unavailable Zuri Ha RN Unavailable Sandra Ruiz@[facility] Carlos Alberto King MD, [place] Unavailable Patria Luevano RN Unavailable TOBIAS HYATT@[facility] Jennie Ferreira RN Unavailable ALISON@ [facility] Encounter Details Date Type Department Care Team (Late st Contact Info) Description 10/22/2022 Procedure Pass [facility], [facility] Scan - [facility] [address] [place] [address] Social History Tobacco Use Types Packs/Day Years [...] [facility] Women's Radiology 70 [place] [address] 10/23/2024 Procedure Pass [facility] EKG 70 [place] [address] 10/23/2024 Procedure Pass [facility] EKG 70 [place] [address] 11/13/2024 Procedure Pass [address] [address] 11/13/2024 Procedure Pass [address] [address] 11/22/2024 1:00 PM EDT Telemedicine [facility] Endocrine, Diabetes, and Hypertension [address] [address] Svetlana Lucero, PharmD 75 [place] [address] [email or web address] 11/26/2024 1:00 PM EDT Social Work Social Work Department, [facility] [place] [facility] [place] [address] [address] Hermelinda Barajas MD [address] [place] [address] Pedro@[facility] Indigo Du, [facility] 300 [place] [address] [email or web address] 12/04/2024 7:30 AM EDT Blood Draw Laboratory Services, [address], 2nd [place], [place] Hermelinda Barajas MD [address] [place] [address] 1240 [place] [address] Pedro@[facility] 12/04/2024 8:30 AM EDT Office Visit [facility], [address], 9th [place] [address] Cindi Shell EXECUTIVE CASINO HOST [address] [place] [address] Benedict east@[facility] Hermelinda Barajas MD [address] [place] [address] 1240 [place] [address] Pedro@[facility] 12/04/2024 9:30 AM EDT Infusion Infusion Therapy Services [place]awkey 9, [address], 9th [place] [address] Cindi Shell EXECUTIVE CASINO HOST [address] [place] [address] Benedict east@[facility] Patria Luevano, BRIELLE [address] [place] [address] STEFANO@[facility] 12/25/2024 6:30 AM EDT Blood Draw Laboratory Services, [address], 2nd [place] [address] Cindi Shell CNP 450 [place] [address] Benedict east@[facility] 12/25/2024 7:30 AM EDT Office Visit [facility] Center for Thoracic Oncology, [address], 9th [place] [address] Cindi Shell CNP 450 [place] [address] Benedict east@[facility] 12/25/2024 8:30 AM EDT Infusion Infusion Therapy Services [place] [address], [address], 9th [place] [address] Cindi Shell CNP 450 [place] [address] Benedict east@[facility] 01/11/2025 11:45 AM EST Appointment [facility], [address] [address] Hermelinda Barajas MD [address] [place] [address] 1240 [place] [address] Pedro@[facility] 01/15/2025 7:10 AM EST Blood Draw Laboratory Services, [address], 2nd [place] [address] Cindi Shell EXECUTIVE CASINO HOST 450 [place] [address] Benedict east@[facility] 01/15/2025 8:00 AM EST Office Visit [facility] Center for Thoracic Oncology, [facility] 450 [facility], 9th [place] [address] Hermelinda Barajas MD 450 [employer] 1240 [place] [address] Pedro@[facility] 01/15/2025 9:00 AM EST Infusion Infusion Therapy Services [facility] 9[facility] 450 [facility], 9th [place] [address] Cindi Shell CNP 450 [place] [address] Benedict east@[facility] 01/18/2025 7:35 AM EST Hospital Encounter [facility] EKG 70 [place] [address] Guanakito Gallardo MD 75 [facility] [place] [address] [email or web address] [facility] 01/18/2025 8:30 AM EST Appointment [facility] 70 [place] [address] Odalis Jimenez PA-C 70 [facility] 5th [place] [address] [email or web address] 02/01/2025 8:40 AM EST Office Visit [facility] Otolaryngology 45 [facility] [place] ASB2-2 [place] [address] Demetrio Armstrong MD 45 [place] [phone] [email or web address] 02/25/2025 9:30 AM EST Telemedicine [facility] Cardiovascular Clinic [address] [place] [address] Guanakito Gallardo MD [address] [place] [address] 07/04/2025 10:00 AM EDT Telemedicine [facility] Cardiovascular Clinic [address] [place] [address] Thiago Bean MD [address] [place] [address] [email or web address]@[facility] 10/18/2025 7:05 AM EDT Hospital Encounter [facility] EKG [address] [place] [address] Guanakito Gallardo MD [address] [place] [address] Arrived documented as of this encounter Visit Diagnoses Not on filedocumented in this encounter Additional Health Concerns Infection Onset Date Last Indicated Resolved Time COVID-19 04/06/2023 04/06/2023 04/27/2023 1:21 AM EST CoV-Risk 07/17/2024 07/17/2024 07/28/2024 1:21 AM EDT documented as of this encounter Care Teams Display Maker Relationship Specialty Start Date End Date Grecia Bonilla MD [address] [place] [address] [place] [address] PCP - General Internal Medicine 10/13/22 Indigo Du, [facility] 300 [place] [address] [email or web address] [employer] Assistants Oncology 07/27/22 Hermelinda Barajas MD [address] [place] [address] Mariah Shen [address] [place] [address] Pedro@[facility] Medical Oncology 11/29/22 Cindi Shell CNP [address] [place] [address] Fina@[facility] Gerontology 11/29/22 Zuri Ha RN [address] [place] [address] Milton@[facility] Primary Infusion Nurse 01/10/24 05/14/24 Carlos Alberto [place] MD, [place] [address] [place] [address] Department of Psychosocial Oncology and Palliative Care, [place] [phone] Jaelyn@[facility] Hospice and Palliative Care 04/05/24 Patria Luevano RN [address] [place] [address] STEFANO@[facility] Primary Infusion Nurse 05/15/24 Jennie Ferreira RN [address] [place] [address] ALISON@[facility] Associate Infusion Nurse 10/02/24 documented as of this encounter Additional Source Comments The information contained in this document represents components of the legal health record. It is not the complete legal health record.[facility]
--- OUTSIDE RECORDS SUMMARY | 2024-11-20 11:58 | XMS_ITS | Encounter Summary ---
Author Organization [facility] Address [address] [facility] [address] [place] [address] Phone Care Team Providers Care Water Tender Name Role Phone Indigo DuSW Unavailable [phone] Aubrey Taylor MD Primary Care Provider [phone] Marilynn Daly NP Primary Care Provider Unavailab Grecia Rosado MD Primary Care Provider Hermelinda Barajas MD Unavailable [phone] Cindi Shell [facility] Unavailable Zuri Ha RN Unavailable Sandra Ruiz@[facility].[place] Carlos Alberto [place] MD, [place] Unavailable [phone] Patria Luevano RN Unavailable TOBIAS HYATT@[facility] Jennie Ferreira RN Unavailable ALISON@ [facility].[place] Encounter Details Date Type Department Care Team (Late st Contact Info) Description 09/10/2022 Procedure Pass [facility] [place] [facility] [place] 300 [facility] 3rd [place] [address] Social History Tobacco Use Types [...] Description 10/18/2024 Procedure Pass [facility] Women's Radiology 70 [place] [address] 10/23/2024 Procedure Pass [facility] EKG 70 [place] [address] 10/23/2024 Procedure Pass [facility] EKG 70 [place] [address] 11/13/2024 Procedure Pass [address] [address] 11/13/2024 Procedure Pass [address] [address] 11/22/2024 1:00 PM EDT Telemedicine [facility] Endocrine, Diabetes, and Hypertension 221 [facility] 2nd [place] [address] Svetlana Lucero, PharmD 75 [place] [address] [email or web address] 11/26/2024 1:00 PM EDT Social Work Social Work Department, [facility] [place] [facility] [place] 300 [facility] 4th [place] [address] Hermelinda Barajas MD 450 [facility] [address] [place] [address] Pedro@[facility] Indigo Du, BRIAR SHOP SUPERVISOR 300 [place] [address] [email or web address]@[facility] 12/04/2024 7:30 AM EDT Blood Draw Laboratory Services, [address], 2nd Floor [place], [place] Hermelinda Barajas MD [address] [place] [address] Pedro@[facility] 12/04/2024 8:30 AM EDT Office Visit [facility] for Thoracic Oncology, [address], 9th [place] [address] Cindi Shell CNP [address] [place] [address] Benedict east@[facility] Hermelinda Barajas MD [address] [place] [address] Pedro@[facility] 12/04/2024 9:30 AM EDT Infusion Infusion Therapy Services Y[place]key 9, [address], 9th [place] [address] Cindi Shell IMITATION MARBLE MECHANIC [address] [place] [address] Benedict east@[facility] Patria Luevano, BRIELLE [address] [place] [address] STEFANO@[facility] 12/25/2024 6:30 AM EDT Blood Draw Laboratory Services, [facility] 450 [facility], 2nd [place] [address] Cindi Shell CNP 450 [place] [address] Benedict east@[facility] 12/25/2024 7:30 AM EDT Office Visit [facility] for Thoracic Oncology, [address], 9th [place] [address] Cindi Shell CNP [address] [place] [address] Benedict east@[facility] 12/25/2024 8:30 AM EDT Infusion Infusion Therapy Services [place] 9, [address], 9th [place] [address] Cindi Shell CNP [address] [place] [address] Benedict east@[facility] 01/11/2025 11:45 AM EST Appointment [facility], [address] [address] Hermelinda Barajas MD [address] [place] [address] 1240 [place] [address] Pedro@[facility] 01/15/2025 7:10 AM EST Blood Draw Laboratory Services, [address], 2nd [place] [address] Cindi Shell CNP 450 [place] [address] Benedict east@[facility] 01/15/2025 8:00 AM EST Office [facility], [facility] 450 [facility], 9th [place] [address] Hermelinda Barajas MD 450 [facility] 1240 [place] [address] Pedro@[facility] 01/15/2025 9:00 AM EST Infusion Infusion Therapy Services [address], 9th [place] [address] Cindi Shell CNP 450 [place] [address] Benedict east@[facility] 01/18/2025 7:35 AM EST Hospital Encounter [facility] EKG 70 [place] [address] Guanakito Gallardo MD [address] [place] [address] [place] [address] [email or web address] Arrived 01/18/2025 8:30 AM EST Appointment [facility] 70 [place] [address] Odalis Jimenez PA-C 70 [facility] 5th [place] [address] [email or web address] 02/01/2025 8:40 AM EST Office Visit [facility] Otolaryngology 45 [facility] ASB2-2 [place] [address] Demetrio Armstrong MD 45 [place] [address] [email or web address] 02/25/2025 9:30 AM EST Telemedicine [facility] Cardiovascular Clinic 70 [place] [address] Guanakito Gallardo MD [address] [place] [address] [email or web address] 07/04/2025 10:00 AM EDT Telemedicine [facility] Cardiovascular Clinic [address] [place] [address] Thiago Bean MD [address] [place] [address] [email or web address] 10/18/2025 7:05 AM EDT Hospital Encounter [facility] EKG 70 [place] [address] Guanakito Gallardo MD [address] [place] [address] [email or web address] Arrived documented as of this encounter Visit Diagnoses Not on filedocumented in this encounter Additional Health Concerns Infection Onset Date Last Indicated Resolved Time COVID-19 04/06/2023 04/06/2023 04/27/2023 1:21 AM EST CoV-Risk 07/17/2024 07/17/2024 07/28/2024 1:21 AM EDT documented as of this encounter Care Teams Water Tender Relationship Specialty Start Date End Date Aubrey Taylor MD [address] [place] [address] PCP - General Internal Medicine 08/13/22 09/14/22 Marilynn Daly NP PCP - General Nurse Practitioner 09/15/22 10/12/22 Grecia Bonilla MD [address] [place] [address] [place] [address] PCP - General Internal Medicine 10/13/22 Indigo Du, BRIAR SHOP SUPERVISOR 300 [place] [address] [email or web address] Clinical Manager Oncology 07/27/22 Hermelinda Barajas MD [address] [place] [address] Pedro@[facility] Medical Oncology 11/29/22 Cindi Shell CNP [address] [place] [address] Fina@[facility] Gerontology 11/29/22 Zuri Ha, BRIELLE [address] [place] [address] Milton@[facility] Primary Infusion Nurse 01/10/24 05/14/24 Carlos Alberto King MD, [place] [address] [place] [address] Department of Psychosocial Oncology and Palliative Care, [place] [phone] Jaelyn@[facility] Hospice and Palliative Care 04/05/24 Patria Luevano, BRIELLE [address] [place] [address] STEFANO@[facility] Primary Infusion Nurse 05/15/24 Jennie Ferreira, BRIELLE [address] [place] [address] [email or web address] Associate Infusion Nurse 10/02/24 documented as of this encounter Additional Source Comments The information contained in this document represents components of the legal health record. It is not the complete legal health record.[facility]
--- OUTSIDE RECORDS SUMMARY | 2024-11-20 11:59 | XMS_ITS | Clinical Summary ---
Author Organization [facility] Address [address] [place] [address] Care Team Providers Care Screener Perfumer Name Role Phone Unavailable Primary Care Provider [...]
--- OUTSIDE RECORDS SUMMARY | 2024-11-20 11:59 | XMS_ITS | Encounter Summary ---
Author Organization [facility] Address [address] [place] [address] Phone Care Team Providers Care Printer Maintainer Name Role Phone Indigo DuSW Unavailable Grecia Bonilla MD Primary Care Provider Hermelinda Barajas MD Unavailable [phone] Cindi Shell REFINING SUPERVISOR Unavailable Zuri Ha RN Unavailable Sandra [email or web address] Carlos Alberto King MD, [place] Unavailable [phone] Patria Luevano RN Unavailable TOBIAS [email or web address] Jennie Ferreira RN Unavailable ALISON@ [facility] Encounter Details Date Type Department Care Team (Late st Contact Info) Description 10/22/2022 Procedure Pass [facility] Echocardiography 70 [place] [address] Social History Tobacco Use Types Packs/Day Years [...] st Contact Info) Description 10/18/2024 Procedure Pass [facility] 70 [place] [address] 10/23/2024 Procedure Pass [facility] EKG 70 [place] [address] 10/23/2024 Procedure Pass [facility] EKG 70 [place] [address] 11/13/2024 Procedure Pass [address] [address] 11/13/2024 Procedure Pass [address] [address] 11/22/2024 1:00 PM EDT Telemedicine [facility] Endocrine, Diabetes, and Hypertension [address] [address] Svetlana Lucero, PharmD 75 [place] [address] [email or web address] 11/26/2024 1:00 PM EDT Social Work Social Work Department, [facility] [facility] [place] [address] [address] Hermelinda Barajas MD 450 [facility] [address] [place] [address] [email or web address] Indigo Du, [facility] 300 [place] [address] [email or web address] 12/04/2024 7:30 AM EDT Blood Draw Laboratory Services, [address], 2nd [place], [place] Hermelinda Barajas MD [address] [place] [address] 1240 [place] [address] Pedro@[facility] 12/04/2024 8:30 AM EDT Office Visit [facility], [address], 9th [place], [place] [phone] Cindi Shell CNP [address] [place] [address] Benedict east@[facility] Hermelinda Barajas MD [address] [place] [address] Pedro@[facility] 12/04/2024 9:30 AM EDT Infusion Infusion Therapy Services wkey 9, [address], 9th [place] [address] Cindi Shell CNP [address] [place] [address] Benedict east@[facility] Patria Luevano, BRIELLE [address] [place] [address] STEFANO@[facility] 12/25/2024 6:30 AM EDT Blood Draw Laboratory Services, [address], 2nd [place], [place] Cindi Shell CNP 450 [place] [address] Benedict east@[facility] 12/25/2024 7:30 AM EDT Office Visit [facility], [address], 9th [place] [address] iCndi Shell CNP [address] [place] [address] Benedict east@[facility] 12/25/2024 8:30 AM EDT Infusion Infusion Therapy Services [place] 9, [address], 9th [place] [address] Cindi Shell CNP [address] [place] [address] Benedict east@[facility] 01/11/2025 11:45 AM EST Appointment [facility], [address] [address] Hermelinda Barajas MD [address] [place] [address] 1240 [place] [address] Pedro@[facility] 01/15/2025 7:10 AM EST Blood Draw Laboratory Services, [address], 2nd [place] [address] Cindi Shell CNP [address] [place] [address] Benedict east@[facility] 01/15/2025 8:00 AM EST Office Visit [facility], [facility] 450 [facility], 9th [place] [address] Hermelinda Barajas MD 450 [facility] 1240 [place] [address] Pedro@[facility] 01/15/2025 9:00 AM EST Infusion Infusion Therapy Services [place] 9, [facility] 450 [facility], 9th [place] [address] Cindi Shell CNP 450 [place] [address] Benedict east@[facility] 01/18/2025 7:35 AM EST Hospital Encounter [facility] EKG 70 [place] [address] Guanakito Gallardo MD [address] [place] [address] [place] [address] [email or web address] 01/18/2025 8:30 AM EST Appointment [facility] Women[facility] 70 [place] [address] Odalis Jimenez PA-C 70 [facility] 5th [place] [address] [email or web address] 02/01/2025 8:40 AM EST Office Visit [facility] Otolaryngology 45 [facility] ASB2-2 [place] [address] Demetrio Armstrong MD 45 [place] [phone] mak@[facility] 02/25/2025 9:30 AM EST Telemedicine [facility] 70 [place] [address] Guanakito Gallardo MD [address] [place] [address] 07/04/2025 10:00 AM EDT Telemedicine [facility] 70 [place] [address] Thiago Bean MD [address] [place] [address] [email or web address] 10/18/2025 7:05 AM EDT Hospital Encounter [facility] EKG 70 [place] [address] Guanakito Gallardo MD [address] [place] [phone] [email or web address] Arrived documented as of this encounter Visit Diagnoses Not on filedocumented in this encounter Additional Health Concerns Infection Onset Date Last Indicated Resolved Time COVID-19 04/06/2023 04/06/2023 04/27/2023 1:21 AM EST CoV-Risk 07/17/2024 07/17/2024 07/28/2024 1:21 AM EDT documented as of this encounter Care Teams Printer Maintainer Relationship Specialty Start Date End Date Grecia Bonilla MD [address] [place] [address] [place] [address] PCP - General Internal Medicine 10/13/22 Indigo Du, [facility] 300 [place] [address] [email or web address] Oncology 07/27/22 Hermelinda Barajas MD [address] [place] [address] Andrew Shen [address] [place] [address] [email or web address] Medical Oncology 11/29/22 Cindi Shell CNP [address] [place] [address] Fina@[email or web address] Gerontology 11/29/22 Zuri Ha RN [address] [place] [address] Milton@[facility] Primary Infusion Nurse 01/10/24 05/14/24 Carlos Alberto King MD, [place] [address] [place] [address] Department of Psychosocial Oncology and Palliative Care, [place] [phone] Jaelyn@[facility] Hospice and Palliative Care 04/05/24 Patria Luevano, BRIELLE [address] [place] [address] STEFANO@[facility] Primary Infusion Nurse 05/15/24 Jennie Ferreira, BRIELLE [address] [place] [address] ALISON@[facility] Associate Infusion Nurse 10/02/24 documented as of this encounter Additional Source Comments The information contained in this document represents components of the legal health record. It is not the complete legal health record.[facility]
== END 2024-11-20 10:37 | disposition home or self-care (01) ==
PROVIDERS: PCP Internal Medicine; Visit Provider Physician Assistant
DX: S05.02XA Injury of conjunctiva and corneal abrasion without foreign body, left eye, initial encounter (principal); H10.13 Acute atopic conjunctivitis, bilateral

== ENCOUNTER → 2024-11-20 09:56 | Outpatient (BNVA) | payer MEDICARE, MEDICAID, SELFPAY | PROVIDERS: PCP Internal Medicine; Visit Provider Physician Assistant | DX: H10.13 Acute atopic conjunctivitis, bilateral (principal); S05.02XA Injury of conjunctiva and corneal abrasion without foreign body, left eye, initial encounter; X58.XXXA Exposure to other specified factors, initial encounter; Y93.9 Activity, unspecified | CPT/HCPCS: 99212 ==

== ENCOUNTER 2024-12-26 17:55 | Emergency (ER) | payer MEDICARE, MEDICAID, SELFPAY ==
--- OUTSIDE RECORDS SUMMARY | 2024-12-25 07:30 | XMS_ITS | Encounter Summary ---
Author Organization [facility] Address [address] [place] [address] [place] [address] Phone Care Team Providers Care Signal Apprentice Name Role Phone Indigo DuSW Unavailable [phone] Grecia Bonilla MD Primary Care Provider Hermelinda Barajas MD Unavailable [phone] Cindi Shell [facility] Unavailable [phone] Carlos Alberto King MD, [place] Unavailable Patria Luevano RN Unavailable TOBIAS HYATT@[email or web address] Jennie Ferreira RN Unavailable ALISON@ [facility] Reason for Referral * MRI/CAT Scan - Authorized Specialty Diagnoses / Procedures Referred By Sarah t Referred To Contact Radiology Diagnoses Malignant neoplasm of lung, unspecified laterality, unspecified part of lung Procedures MRI Brain Hermelinda Barajas MD [facility] Wendy Shen 1240 [place] [address] Phone: tel: fax: mailto:[email or web address] Referral ID Status Reason Start Date Expiration Date V isits Requested Visits Authorized [id number] Authorized 12/25/2024 12/25/2025 1 1 Encounter Details Date Type Department Care Team (Late st Contact Info) Description 12/25/2024 7:30 AM EDT Office Visit [facility], [facility] [place] [address] [facility], 9th [place] [address] Cindi Shell CNP 450 [place] [address] CindiMukeshBeth [email or web address] U Secondary adenocarcinoma of lung, unspecified laterality (Primary Dx); Malignant neoplasm of lung, unspecified laterality, unspecified part of lung Social History Tobacco Use Types Packs/Day Years [...] Sign Reading Time Taken Comments Blood Pressure 120/78 12/25/2024 7:07 AM EDT Pulse 98 12/25/2024 7:07 AM EDT Temperature 36.8 C (98.2 F) 12/25/2024 7:07 AM EDT Respiratory Rate 19 12/25/2024 7:07 AM EDT Oxygen Saturation 97% 12/25/2024 7:07 AM EDT Inhaled Oxygen Concentration - - Weight 129.7 kg (285 lb 15 oz) 12/25/2024 7:07 A M EDT Height - - Body Mass Index 34.81 11/16/2024 8:55 AM EDT documented in this encounter Plan of Treatment Upcoming Encounters Date Type Department Care Team (Late st Contact Info) Description 10/18/2024 Procedure Pass [facility] 70 [place] [address] 10/23/2024 Procedure Pass [facility] EKG 70 [place] [address] 10/23/2024 Procedure Pass [facility] EKG 70 [place] [address] 11/13/2024 Procedure Pass [address] [address] 11/13/2024 Procedure Pass [address] [address] 12/25/2024 Procedure Pass [address] [address] 01/05/2025 9:25 AM EST Appointment [address] [address] Hermelinda Barajas MD [facility] Wendy Shen [address] [place] [address] [email or web address] 01/08/2025 1:00 PM EST Telemedicine - audio only [facility], [facility] [address] [facility], 9th [place] [address] Cindi Shell CNP 450 [place] [address] Benedict east@[facility] Hermelinda Barajas MD [address] [place] [address] [place] [address] Pedro@[facility] 01/11/2025 11:45 AM EST Appointment [address] [address] Hermelinda Barajas MD [address] [place] [address] Pedro@[facility] 01/15/2025 7:10 AM EST Blood Draw Laboratory Services, [address], 2nd [place] [address] Cindi Shell CNP [address] [place] [address] Benedict east@[facility] 01/15/2025 8:00 AM EST Office Visit [facility], [address], 9th [place] [address] Hermelinda Barajas MD [address] [place] [place] [address] Pedro@[facility] 01/15/2025 9:00 AM EST Infusion Infusion Therapy Services [place] 9, [facility] [facility] [address], 9th [place] [address] Cindi Shell CNP 450 [place] [address] Benedict east@[facility] Patria Luevano, BRIELLE [address] [place] [address] STEFANO@[facility] 01/17/2025 10:00 AM EST Telemedicine [facility] Medical Weight Management 45 [place] [address] Svetlana Lucero, RigoD 75 [place] [address] [email or web address] 01/18/2025 7:35 AM EST Hospital Encounter [facility] EKG 70 [place] [address] Guanakito Gallardo MD 75 [facility] [place] [address] [facility] 01/18/2025 8:30 AM EST Appointment [facility] 70 [place] [address] Odalis Jimenez PA-C 70 [facility] 5th [place] [address] [email or web address] 02/01/2025 8:40 AM EST Office Visit [facility] Otolaryngology 45 [facility] ASB2-2 [place] [address] Demetrio Armstrong MD 45 [place] [phone] [email or web address] 02/14/2025 10:20 AM EST Office Visit [facility] DIABETES MEDICINE 45 [place] [address] Frank Partida MD [address] [place] [address] jose [email or web address] 02/25/2025 9:30 AM EST Telemedicine [facility] Cardiovascular Clinic 70 [place] [address] Guanakito Gallardo MD [address] [place] [address] [place] [address] [email or web address] 07/04/2025 10:00 AM EDT Telemedicine [facility] Cardiovascular Clinic [address] [place] [address] Thiago Bean MD [address] [place] [address] [email or web address] 10/18/2025 7:05 AM EDT Hospital Encounter [facility] EKG 70 [place] [address] Guanakito Gallardo MD [address] [place] [address] [email or web address] Arrived Scheduled Orders Name Type Priority Associated Diagnoses Orde r Schedule MRI Brain Imaging Routine Malignant neoplasm of lung, unspecified laterality, unspecified part of lung Expected: 01/01/2025, Expires: 03/27/2025 Cortisol Lab Routine Secondary adenocarcinoma of lung, unspecified laterality Malignant neoplasm of lung, unspecified laterality, unspecified part of lung Expected: 12/25/2024, Expires: 12/25/2025 documented as of this encounter Visit Diagnoses Diagnosis Secondary adenocarcinoma of lung, unspecified laterality- Primary Malignant neoplasm of lung, unspecified laterality, unspecified part of lung Paroxysmal atrial fibrillation Atrial fibrillation Paroxysmal atrial fibrillation Atrial fibrillation documented in this encounter Care Teams Signal Apprentice Relationship Specialty Start Date End Date Grecia Bonilla MD [address] [place] [address] [place] [address] PCP - General Internal Medicine 10/13/22 Indigo Du, [facility] 300 [place] [address] [email or web address] Silverware Etcher Oncology 07/27/22 Hermelinda Barajas MD [address] [place] [address] 1240 [place] [address] Pedro@[facility] Medical Oncology 11/29/22 Cindi Shell CNP [address] [place] [address] Fina@[facility] Gerontology 11/29/22 Carlos Alberto King MD, [place] [address] [place] [address] Department of Psychosocial Oncology and Palliative Care, [place] [address] Jaelyn@[facility] Hospice and Palliative Care 04/05/24 Patria Luevano, BRIELLE [address] [place] [address] [email or web address]@[facility] Primary Infusion Nurse 05/15/24 Jennie Ferreira, BRIELLE [address] [place] [address] ALISON@[facility] Associate Infusion Nurse 10/02/24 documented as of this encounter Additional Source Comments The information contained in this document represents components of the legal health record. It is not the complete legal health record.[facility]
--- OUTSIDE RECORDS SUMMARY | 2024-12-25 08:30 | XMS_ITS | Encounter Summary ---
Author Organization [facility] Address [address] [place] [address] [place] [address] Phone Care Team Providers Care Bookkeeping Manager Name Role Phone Indigo DuSW Unavailable [phone] Grecia Bonilla MD Primary Care Provider Hermelinda Barajas MD Unavailable [phone] Cindi Shell FOOT TENDER Unavailable Carlos Alberto King MD, [place] Unavailable Patria Luevano RN Unavailable TOBIAS [email or web address] Jennie Ferreira RN Unavailable ALISON@ [email or web address] Reason for Visit * Reason Comments Chemotherapy Infusion Encounter Details Date Type Department Care Team (Late st Contact Info) Description 12/25/2024 8:30 AM EDT Infusion [facility] 9, [facility] Cancer [address], 9th [place] [address] Cindi Shell, FOOT TENDER [address] [place] [address] Benedict east@[email or web address] Patria Luevano RN [address] [place] [address] [email or web address] Primary adenocarcinoma of lung, unspecified laterality (Primary [...] Procedure Pass [facility] 70 [place] [address] 10/23/2024 Procedure Pass [facility] EKG 70 [place] [address] 10/23/2024 Procedure Pass [facility] EKG 70 [place] [address] 11/13/2024 Procedure Pass [facility], Ct Scan - [facility] 30 [place] [address] 11/13/2024 Procedure Pass [facility], Ct [address] [address] 12/25/2024 Procedure Pass [address] [address] 01/05/2025 9:25 AM EST Appointment [address] [address] Hermelinda Barajas MD [address] [address] Pedro@[facility] 01/08/2025 1:00 PM EST Telemedicine - audio [facility], [address], 9th [place] [address] Cindi Shell CNP [address] [place] [address] Benedict east@[facility] Hermelinda Barajas MD [address] [address] Pedro@[facility] 01/11/2025 11:45 AM EST Appointment [address] [address] Hermelinda Barajas MD [address] [address] Pedro@[facility] 01/15/2025 7:10 AM EST Blood Draw Laboratory Services, [facility] 450 [facility], 2nd [place] [address] Cindi Shell, FOOT TENDER 450 [place] [address] Benedict east@[facility] 01/15/2025 8:00 AM EST Office Visit [facility] for Thoracic Oncology, [address], 9th [place] [address] Hermelinda Barajas MD [address] [place] [address] 1240 [place] [address] Pedro@[facility] 01/15/2025 9:00 AM EST Infusion Infusion Therapy Services [address], 9th [place] [address] Cindi Shell FOOT TENDER 450 [place] [address] Benedict east@[facility] Patria Luevano, BRIELLE 450 [place] [address] STEFANO@[facility] 01/17/2025 10:00 AM EST Telemedicine [facility] Medical Weight Management 45 [place] [address] Svetlana Lucero, PharmD [address] [place] [address] nilam@[facility] 01/18/2025 7:35 AM EST Hospital Encounter [facility] EKG 70 [place] [address] Guanakito Gallardo MD 75 [facility] [place] [address] Arrived 01/18/2025 8:30 AM EST Appointment [facility] 70 [place] [address] Odalis Jimenez PA-C 70 [facility] 5th [place] [address] [email or web address] 02/01/2025 8:40 AM EST Office Visit [facility] Otolaryngology 45 [facility]2 [place] [address] Demetrio Armstrong MD 45 [place] [phone] [email or web address] 02/14/2025 10:20 AM EST Office Visit [facility] DIABETES MEDICINE 45 [place] [address] Frank Partida MD [address] [place] [address] jose [email or web address] 02/25/2025 9:30 AM EST Telemedicine [facility] [address] [place] [address] Guanakito Gallardo MD [address] [place] [address] [place] [address] 07/04/2025 10:00 AM EDT Telemedicine [facility] [address] [place] [address] Thiago Bean MD [address] [place] [address] [email or web address] 10/18/2025 7:05 AM EDT Hospital Encounter [facility] EKG 70 [place] [address] Guanakito Gallardo MD [address] [place] [address] [place] [address] [email or web address] Arrived documented as of this encounter Visit Diagnoses Diagnosis Primary adenocarcinoma of lung, unspecified laterality- Primary Paroxysmal atrial fibrillation Atrial fibrillation Paroxysmal atrial fibrillation Atrial fibrillation documented in this encounter Administered Medications Inactive Administered Medications - up to 3 most recent administrations Medication Order MAR Action Action Date Dose Rate Site magnesium sulfate 2 gram/50 mL (4%) in Sterile Water IVPB premix 2 g 2 g, Intravenous, Administer over 30 Minutes, at 100 mL/hr, Once, On Tue12/25/24 at 0930, For 1 dose New 12/25/2024 8:56 AM EDT 2 g 100 mL/hr pembrolizumab (KEYTRUDA) 200 mg in sodium chloride 0.9% 68 mL IVPB 200 mg, Intravenous, Administer over 30 Minutes, Once, On Tue12/25/24 at 0915, For 1 dose, Administer prior to pemetrexed. Infuse through a sterile, non-pyrogenic, low protein binding 0.2 to 5 micron inline or add-on filter.Indications:Primary adenocarcinoma of lung, unspecified laterality New 12/25/2024 9:34 AM EDT 200 mg 136 mL/hr PEMEtrexed disodium (ALIMTA) 1,275 mg in sodium chloride 0.9% 160 mL IVPB 1,275 mg (rounded from 1,270 mg = 500 mg/m2 2.54 m2 Treatment Plan BSA from Recorded weight), Intravenous, Administer over 10 Minutes, at 960 mL/hr, Once, On Tue12/25/24 at 0945, For 1 dose, THIS IS A HIGH RISK HAZARDOUS AGENT. MUST USE APPROPRIATE PRECAUTIONS WHEN HANDLING AND DISPOSING OF THIS AGENT.Indications:Primary adenocarcinoma of lung, unspecified laterality New Bag 12/25/2024 10:11 AM EDT 1,275 mg 960 mL/hr sodium chloride 0.9% bolus 1,000 mL 1,000 mL, Intravenous, Administer over 1 Hours, at 1,000 mL/hr, Once, On Tue12/25/24 at 0930, For 1 dose New Bag 12/25/2024 8:56 AM EDT 1,000 mL 1000 mL/hr documented in this encounter Care Teams Bookkeeping Manager Relationship Specialty Start Date End Date Grecia Bonilla MD [address] [place] [address] [place] [phone] PCP - General Internal Medicine 10/13/22 Indigo Du, [facility] 300 [place] [address] [email or web address] Senior Cyber Security Analyst Oncology 07/27/22 Hermelinda Barajas MD [address] [place] [address] 1240 [place] [address] Pedro@[email or web address] Medical Oncology 11/29/22 Cindi Shell CNP [address] [place] [address] Fina@[email or web address] Gerontology 11/29/22 Carlos Alberto [place] MD, [place] [address] [place] [address] Department of Psychosocial Oncology and Palliative Care, [place] [phone] Jaelyn@[email or web address] Hospice and Palliative Care 04/05/24 Patria Luevano RN [address] [place] [address] STEFANO@[facility] Primary Infusion Nurse 05/15/24 Jennie Ferreira, BRIELLE [address] [place] [address] ALISON@[facility] Associate Infusion Nurse 10/02/24 documented as of this encounter Additional Source Comments The information contained in this document represents components of the legal health record. It is not the complete legal health record.[facility]
[2024-12-26 17:56] VITALS: BP 146/77; PULSE 96; RESP 19; TEMP 36.9; O2SAT 96; BMI 35.7
--- NOTE | 2024-12-26 17:56 | ED_ITS ---
HPI - General Adult General Chief complaint: General Medical Stated complaint: high sugar Related Data Home Medications ?Medication ?Instructions ?Recorded ?Confirmed metformin 1,000 mg tablet 1,000 mg PO BID 01/26/23 magnesium oxide 400 mg (241.3 mg 400 mg PO DAILY 07/20 magnesium) tablet atorvastatin 40 mg tablet 20 mg PO DAILY 11/20/24 dexamethasone 4 mg tablet mg PO .every 3 weeks 5 diltiazem HCl 360 mg 180 mg PO DAILY 11/20/24 capsule,extended release 24 hr famotidine 20 mg tablet mg PO PRN 11/20/24 fluticasone furoate 27.5 2 spray intranasal DAILY PRN 11/20/24 mcg/actuation nasal spray,suspension (Flonase Sensimist) folic acid 1 mg tablet 1 mg PO DAILY 11/20/24 insulin glargine-yfgn 100 unit/mL 10 unit subcut DAILY 11/20/24 (3 mL) subcutaneous pen losartan 100 mg tablet 50 mg PO DAILY 11/20/24 rivaroxaban 20 mg tablet (Xarelto) 20 mg PO DAILY 10/30 05/22 Previous Rx's ?Medication ?Instructions ?Recorded pseudoephedrine HCl 120 mg 120 mg PO Q12H 7 days #14 t abs 07/20/24 tablet,extended release (Sudafed 12 Hour) erythromycin 5 mg/gram (0.5 %) eye 0.5 inch ophthalmic (eye) QID #3.5 11/20/24 ointment grams Allergies Allergy/AdvReac Type Severity Reaction Status Date / Time No Known Allergies Allergy Verified 12/26/24 18:01 [facility] Past Medical History Medical History Allergic rhinitis Acute respiratory disease GERD (gastroesophageal reflux disease) Cluster headaches Type 2 diabetes mellitus Hypercholesterolemia Hypertension Palpitations Stage 4 lung cancer Social History Social History Patient Tobacco Use Status: Never used Tobacco Advance Directives: No Advance Directives Information Provided: No Physical Exam ED Vital Signs: BMI result Body Mass Index 35.7 Course Course Course Narrative: 59 yo male history of stage 4 lung ca, DM on metformin and insulin coming in for elevated blood sugar. Patient is currently on steroids. Sugar is running in the 300's. No cough, chest pain, diarrhea, no abdominal pain or fever. Rapid medical screening exam was performed. Patient stable at time of evaluation. Mayra Mireles DO 12/26/24 [id number] Medical Decision Making Lab Data 12/26/24 18:11 12/26/24 18:11 Labs: Lab Results 12/26/24 12/26/24 Range/Units 18:11 18:16 WBC 6.8 (4.8-10.8) X10*3/uL RBC 3.74 L (4.60-5.80) X10*6/uL Hgb 10.1 L (14.0-18.0) g/dl Hct 33.2 L (42.0-52.0) % MCV 88.8 (80.0-98.0) fL MCH 27.0 (27.0-33.0) pg MCHC 30.4 L (31.0-36.0) g/dl RDW 15.9 (11.0-16.0) % Plt Count 333 D (160-400) X10*3/uL MPV 9.8 (9.4-12.4) fL Immature Gran % (Auto) 0.1 (0.0-0.4) % Neut % (Auto) 79.6 H (45-73) % Lymph % (Auto) 14.4 L (20-40) % Becker % (Auto) 5.9 (2-11) % Eos % (Auto) 0.0 (0-4) % Baso % (Auto) 0.0 (0-2) % Lymph # (Auto) 1.0 L (1.2-4.9) X10*3/uL Becker # (Auto) 0.4 (0.1-1.2) X10*3/uL Eos # (Auto) 0.0 (0.0-0.4) X10*3/uL Baso # (Auto) 0.0 (0.0-0.2) X10*3/uL Abs Immat Gran (auto) 0.01 (0.00-0.03) X10*3/uL Absolute Neuts (auto) 5.4 (2.0-8.3) x10*3/uL Absolute Nucleated RBC 0.000 (0.0-0.012) X10*3/uL Nucleated RBC % (auto) 0.0 (0.0-0.2) /100WBC VBG pH 7.41 (7.32-7.43) VBG pCO2 40 mmHg VBG pO2 72 mmHg VBG HCO3 26 (22-26) mmol/L VBG O2 Saturation 91.0 % VBG Base Excess 1.9 mmol/L Sodium 136 (135-145) mmol/L Potassium 4.2 (3.3-5.1) mmol/L Chloride 101 (96-108) mmol/L Carbon Dioxide 24 (22-29) mmol/L Anion Gap 15 (12-20) BUN 32 H (9-16) mg/dL Creatinine 1.44 H (0.5-1.4) mg/dL Estim Creat Clear Calc 82.2 Estimated GFR 50 Random Glucose 347 H (60-115) mg/dL Calcium 9.9 (8.4-10.2) mg/dL Magnesium 1.8 (1.6-2.6) mg/dL Total Bilirubin 0.3 (0.0-1.0) mg/dL AST 28 (5-37) U/L ALT 60 H (0-40) U/L Alkaline Phosphatase 67 (39-117) U/L Total Protein 8.0 (6.5-8.0) g/dL Albumin 4.7 (3.5-5.0) g/dL Beta-Hydroxybutyrate 0.23 (0.02-0.27) mmol/L Discharge Plan Discharge Clinical Impression: Acute hyperglycemia Patient Disposition: Left W/O Completing Treatment Prescriptions: No Action metformin 1,000 mg tablet 1,000 mg PO BID diltiazem HCl 360 mg capsule,extended release 24hr 180 mg PO DAILY atorvastatin 40 mg tablet 20 mg PO DAILY losartan 100 mg tablet 50 mg PO DAILY magnesium oxide 400 mg (241.3 mg magnesium) tablet 400 mg PO DAILY pseudoephedrine HCl [Sudafed 12 Hour] 120 mg tablet extended release 120 mg PO Q12H 7 Days Qty: 14 0RF famotidine 20 mg tablet PO PRN dexamethasone 4 mg tablet PO .every 3 weeks Flonase Sensimist 27.5 mcg/actuation spray,suspension 2 spray intranasal DAILY PRN Rx Instructions: into each nostril insulin glargine-yfgn 100 unit/mL (3 mL) insulin pen 10 unit subcut DAILY Xarelto 20 mg tablet 20 mg PO DAILY folic acid 1 mg tablet 1 mg PO DAILY erythromycin 5 mg/gram (0.5 %) ointment 0.5 inch ophthalmic (eye) QID Qty: 3.5 0RF Rx Instructions: Apply to left eye 4 times a day while awake Discharge Date/Time: 12/26/24 20:09
[2024-12-26 18:15] LABS: MANUAL DIFF FLAG NO
[2024-12-26 18:20] LABS: Hematocrit 33.2 % (42.0-52.0); Hemoglobin 10.1 g/dl (14.0-18.0); Imm Gran Abs Auto 0.01 X10*3/uL (0.00-0.03); Imm Gran Pct Auto 0.1 % (0.0-0.4); Lymphocytes Absolute Auto 1.0 X10*3/uL (1.2-4.9); Mean Corpuscular HGB Conc 30.4 g/dl (31.0-36.0); Mean Corpuscular Hemoglobin 27.0 pg (27.0-33.0); Mean Corpuscular Volume 88.8 fL (80.0-98.0); NRBC Abs Auto 0.000 X10*3/uL (0.0-0.012); NRBC Pct Auto 0.0 /100WBC (0.0-0.2); Platelet Count 333 X10*3/uL (160-400); Red Blood Count 3.74 X10*6/uL (4.60-5.80); White Blood Count 6.8 X10*3/uL (4.8-10.8)
[2024-12-26 18:22] LABS: Venous Blood Gas Refer to POC result
[2024-12-26 18:23] LABS: VBG HCO3 26 mmol/L (22-26); VBG O2 % Saturation 91.0 %
[2024-12-26 18:35] LABS: Alanine Aminotransferase 60 U/L (0-40); Albumin Level 4.7 g/dL (3.5-5.0); Alkaline Phosphatase 67 U/L (39-117); Anion Gap 15 (12-20); Aspartate Amino Transferase 28 U/L (5-37); Blood Urea Nitrogen 32 mg/dL (9-16); Calcium 9.9 mg/dL (8.4-10.2); Carbon Dioxide 24 mmol/L (22-29); Chloride 101 mmol/L (96-108); Creatinine Clr Calc Pharmacy 82.2; Estimated Glomerular Filt Rate 50; Magnesium 1.8 mg/dL (1.6-2.6); Potassium 4.2 mmol/L (3.3-5.1); Sodium 136 mmol/L (135-145); Total Protein 8.0 g/dL (6.5-8.0)
--- NOTE | 2024-12-26 20:15 | PC.NURSE ---
RN called the pt at the number listed in the chart. He confirms that he went home stating Yea I did, i rechecked my sugar and it's down to 162 . Pt aware that if he has any additional questions/concerns he can return for treatment.
--- OUTSIDE RECORDS SUMMARY | 2024-12-26 20:22 | XMS_ITS | Clinical Summary ---
Author Organization 175 [facility] Address [address] [place] [address] Phone Care Team Providers Care Roll Plugger Machine Operator Name Role Phone Grecia Bonilla MD Primary [...] (2 mg total) by mouth 05/05/2023 Active Encounters Date Type Department Care Team Description 12/10/2024 9:00 AM EDT Office Visit Orthopedic Surgery - [place] [address] [address] Eric Light DPM Controlled type 2 diabetes mellitus with diabetic polyneuropathy, without long-term current use of insulin (CMS/[facility] V24, CMS/[facility] V28) (Primary Dx); Pain in toes of both feet; Arthritis of both feet; Localized edema; Hammertoes of both feet; Callus; Onychomycosis from Last 3 Months Social History Tobacco Use Types Packs/Day Years [...] Health Maintenance Due Date Last Done Comments Colorectal Cancer Screening: Colonoscopy 1965 Diabetes: Annual Foot Exam 1975 Diabetes: Annual Retina Eye Exam 1975 Hepatitis B Vaccines (1 of 3 - 19+ 3-dose series) 02/14/1984 COVID-19 Vaccine (3 - Pfizer risk series) 09/10/2020 08/13/2020, 07/23/2020 Cholesterol Screening (Lipid Panel) 01/31/2022 HIV Screening 01/31/2022 Lung Cancer Screening (Low Dose CT) 01/31/2022 Social Influencers of Health Screening 01/31/2022 Zoster Vaccines (2 of 2) 01/17/2024 11/22/2023 Depression Screening 02/29/2024 Diabetes: Annual Urine Albumin-Creatinine Ratio (uACR) 12/10/2024 Diabetes: Blood Sugar Control Test (HGBA1C) 04/27/2025 10/25/2024 Diabetes: Annual GFR (Glomerular Filtration Rate) 12/04/2025 12/04/2024, 11/13/2024, 10/23/2024, Additional history exists Hypertension/CHF/CAD Annual BMP Blood Test 12/04/2025 12/04/2024, 11/13/2024, 10/23/2024, Additional history exists DTaP,Tdap,and Td Vaccines (4 - Td or Tdap) 12/04/2033 12/05/2023, 12/27/2018, 12/01/2011 Hepatitis C Screening Completed 07/20/2022, 023 Pneumococcal Vaccine: 50+ Years Completed 10/30/2022 Influenza Vaccine Completed 11/15/2024, , 10/30/2022 RSV Immunization Adult Patients Completed 11/29/2024 HIB Vaccines Aged Out No longer eligi [...] to complete this topic RSV Immunization Patients Under 20 months Aged Out No longer eligible based on patient's age to complete this topic Varicella Vaccines Aged Out No longer eligible based on patient's age to complete this topic Procedures Procedure Name Priority Date/Time Associated Diagnosis Comments ANNUAL BMP BLOOD TEST Routine 09/06/2023 HEPATITIS C SCREENING Routine 07/20/2022 from Last 3 Months or Most Recently Relevant to Health Maintenance Results * Hepatitis C Screening (07/20/2022) Hepatitis C Screening abstracted Historical Provider MD HEALTH MAINTENANCE Final Result from Last 3 Months or Most Recently Relevant to Health Maintenance Insurance MEDICAID - [place] Care Teams Roll Plugger Machine Operator Relationship Specialty Start Date End Date Grecia Bonilla MD [address] [place] [address] [place] [address] PCP - General 05/06/23
--- OUTSIDE RECORDS SUMMARY | 2024-12-26 20:22 | XMS_ITS | Encounter Summary ---
Author Organization [facility] Address [address] [place] [address] Phone Care Team Providers Care Layout Worker Name Role Phone Indigo Du BI SPECIALIST Unavailable Grecia Bonilla MD Primary Care Provider Hermelinda Barajas MD Unavailable [phone] Cindi Shell [facility] Unavailable [phone] Carlos Alberto King MD, [place] Unavailable Patria Luevano RN Unavailable [email or web address] Jennie Ferreira RN Unavailable [email or web address] Encounter Details Date Type Department Care Team (Late st Contact Info) Description 05/15/2024 Procedure Pass [facility], Ct Scan - [facility] [address] [place] [address] Social History Tobacco Use Types Packs/Day Years [...] Procedure Pass [facility] [address] [place] [address] 10/23/2024 Procedure Pass [facility] EKG [address] [place] [address] 10/23/2024 Procedure Pass [facility] EKG [address] [place] [address] 11/13/2024 Procedure Pass [address] [address] 11/13/2024 Procedure Pass [address] [address] 12/25/2024 Procedure Pass [address] [address] 01/05/2025 9:25 AM EST Appointment [address] [address] Hermelinda Barajas MD [address] [place] [id number] [email or web address] 01/08/2025 1:00 PM EST Telemedicine - audio only [facility] [address] [place] [address] Cindi Shell CNP [address] [place] [phone] [email or web address] Hermelinda Barajas MD [address] [place] [id number] [email or web address] 01/11/2025 11:45 AM EST Appointment [facility], Dc Scan [address] [address] Hermelinda Barajas MD [address] [place] [address] [place] [id number] [email or web address] 01/15/2025 7:10 AM EST Blood Draw Laboratory Services, [address] [place] [address] Cindi Shell CNP [address] [place] [phone] [email or web address] 01/15/2025 8:00 AM EST Office Visit [facility] [address], [address] [place] [address] Hermelinda Barajas MD [address] [place] [id number] [email or web address] 01/15/2025 9:00 AM EST Infusion Infusion Therapy Services [facility], [facility] Cancer [address] [place] [address] Cindi Shell CNP [address] [place] [phone] [email or web address] Patria Luevano, BRIELLE [address] [place] [phone] [email or web address] 01/17/2025 10:00 AM EST Telemedicine [facility] Medical Weight Management [address] [place] [address] Svetlana Lucero, RigoD [address] [place] [address] [email or web address] 01/18/2025 7:35 AM EST Hospital Encounter [facility] EKG [address] [place] [address] Guanakito Gallardo MD [address] [facility] [place] [address] [email or web address] 01/18/2025 8:30 AM EST Appointment [facility] [address] [place] [address] Odalis Jimenez PA-C [address] [facility] 5th [place] [address] [email or web address] 02/01/2025 8:40 AM EST Office Visit [facility] Otolaryngology 45 [facility] ASB2-[address] [place] [address] Demetrio Armstrong MD [address] [place] [id number] [email or web address] 02/14/2025 10:20 AM EST Office Visit [facility] DIABETES MEDICINE [address] [place] [address] Frank Partida MD [address] [place] [address] [email or web address] 02/25/2025 9:30 AM EST Telemedicine [facility] Cardiovascular Clinic [address] [place] [address] Guanakito Gallardo MD [address] [place] [address] [email or web address] 07/04/2025 10:00 AM EDT Telemedicine [facility] Cardiovascular Clinic [address] [place] [address] Thiago Bean MD [address] [place] [phone] [email or web address] 10/18/2025 7:05 AM EDT Hospital Encounter [facility] EKG [address] [place] [address] Guanakito Gallardo MD [address] [place] [address] Arrived documented as of this encounter Visit Diagnoses Not on filedocumented in this encounter Additional Health Concerns Infection Onset Date Last Indicated Resolved Time CoV-Risk 07/17/2024 07/17/2024 07/28/2024 1:21 AM EDT documented as of this encounter Care Teams Layout Worker Relationship Specialty Start Date End Date Grecia Bonilla MD [address] [place] [address] [place] [address] PCP - General Internal Medicine 10/13/22 Indigo Du, [facility] [address] [place] [address] [email or web address] Oncology 07/27/22 Hermelinda Barajas MD [address] [place] [address] [place] [address] [email or web address] 11/29/22 Cindi Shell CNP [address] [place] [phone] [email or web address] Gerontology 11/29/22 Carlos Alberto King MD, [place] [address] [place] [address] Department of Psychosocial Oncology and Palliative Care, [place] [phone] [email or web address] Hospice and Palliative Care 04/05/24 Patria Luevano RN [address] [place] [phone] [email or web address] Primary Infusion Nurse 05/15/24 Jennie Ferreira RN [address] [place] [phone] [email or web address] Associate Infusion Nurse 10/02/24 documented as of this encounter Additional Source Comments The information contained in this document represents components of the legal health record. It is not the complete legal health record.[facility]
--- OUTSIDE RECORDS SUMMARY | 2024-12-26 20:22 | XMS_ITS | Clinical Summary ---
Author Organization [facility] Address [address] [facility] [address] [place] [phone] Phone Care Team Providers Care Grievance Coordinator Name Role Phone Indigo Du EXERCISE PHYSIOLOGY PROFESSOR Unavailable Grecia Baird MD Primary Care Provider Hermelinda Barajas MD Unavailable [phone] Cindi Shell INFORMATION DELIVERY ANALYST Unavailable [phone] Carlos Alberto King MD, [place] Unavailable Patria Luevano RN Unavailable [email or web address] Jennie Ferreira RN Unavailable [email or web address] Allergies Active Allergy Reactions Criticality Noted [...] a day. 20 g 3 024 Active famotidine (PEPCID) 20 MG tablet TAKE 2 TABLETS BY MOUTH TWICE A DAY STOP OMEPRAZOLE 360 tablet 025 Active urea 40 % Crea Apply 1 Application topically daily. To scaly skin on feet 198.4 g 11 025 Active acetaminophen (TYLENOL) 500 MG tablet TAKE 1 TABLET BY MOUTH TWICE A DAY 60 tablet 3 025 Active dexAMETHasone (DECADRON) 4 MG tablet Take 1 tablet (4 mg) twice daily the day before, day of and day after chemotherapy only. 30 tablet 1 025 Active Additional Information Patient taking differently: 4 mg Oral Daily, the day before, day of and day after chemotherapy only., Reported on 11/22/2024 rivaroxaban (XARELTO) 20 mg TabIndications:P aroxysmal atrial [...] and nightly. 100 each 5 025 Active prochlorperazine (COMPAZINE) 10 MG tablet TAKE 1 TABLET BY MOUTH EVERY 6 HOURS NEEDED *SEDATING, DO NOT DRIVE* 30 tablet 025 Active folic acid (FOLVITE) 1 MG tablet Take 1 tablet (1,000 mcg total) by mouth daily. 90 tablet 1 025 Active magnesium oxide (MAG-OX) 400 mg (241.3 mg elemental) tablet Take 1 tablet (400 mg total) by mouth 3 (three) times a day. 90 tablet 3 025 Active folic acid (FOLVITE) 1 MG tablet Take 1 tablet (1,000 mcg total) by mouth daily. 90 tablet 1 025 2024 Discontinued(R eorder) magnesium oxide (MAG-OX) 400 mg (241.3 mg elemental) tablet Take 1 tablet (400 mg total) by mouth daily. 90 tablet 1 025 2024 Discontinued(R eorder) prochlorperazine (COMPAZINE) 10 MG tablet TAKE 1 TABLET BY MOUTH EVERY 6 HOURS NEEDED *SEDATING, DO NOT DRIVE* 30 tablet 025 2024 Discontinued Active Problems Patient Care Coordination No te Formatting of this note migh t be different from the original. 06/18/2022 Jesse Patrick gave verbal permission for staff to speak to his life partner, Ana Morton, at any time re diagnosis, treatment and prognosis. Jesse asked for a referral to [facility]. This agency supplies home health aides. Phone no. = [phone] ex. [phone] and Fax = [phone]. SCHEDULING - PLEASE CALL PATIENT TO SCHEDULE APPTS, DOES NOT LIKE PATIENT GATEWAY TO SCHEDULE Oxygen supplier is [employer]. and Problem Noted Date Diagnosed Date Atrial fibrillation 10/18/2024 Primary lung adenocarcinoma 06/15/2022 Encounters Date Type Department Care Team Description 12/26/2024 Telephone [facility] Medical Weight Management [address] [place] [address] Svetlana Lucero, Goldy Mota/Patient Advice 12/25/2024 8:30 AM EDT Infusion Infusion Therapy Services [place] [facility], [facility] [address] [facility], [address] [place] [address] Cindi Shell CNP Devitt, Suzanne Brigid, RN Primary adenocarcinoma of lung, unspecified laterality (Primary Dx) 12/25/2024 7:30 AM EDT Office Visit [facility], [facility] [address] [facility], [address] [place] [address] Cindi Shell CNP Secondary adenocarcinoma of lung, unspecified laterality (Primary Dx); Malignant neoplasm of lung, unspecified laterality, unspecified part of lung 12/24/2024 Telephone [facility] DIABETES MEDICINE [address] [place] [address] Frank Partida MD Medication Refill 12/20/2024 10:00 AM EDT Telemedicine [facility] Medical Weight Management [address] [place] [address] Svetlana Lucero, RigoD Type 2 diabetes mellitus with hyperglycemia, with long-term current use of insulin (Primary Dx) 12/19/2024 Orders Only [facility], [facility] [address] [facility], [address] [place] [address] Cindi Shell CNP 12/18/2024 2:30 PM EDT Social Work Social Work Department, [facility] at [address] [address] Hermelinda Barajas MD Levine, Mariah, EXERCISE PHYSIOLOGY PROFESSOR 12/04/2024 9:30 AM EDT [facility], [facility] [address] [facility], [address] [place] [address] Cindi Shell CNP Devitt, Suzanne Brigid, RN Primary adenocarcinoma of lung, unspecified laterality (Primary Dx) 12/04/2024 8:30 AM EDT Office Visit [facility], [facility] [address] [facility], [address] [place] [address] Cindi Shell, INFORMATION DELIVERY ANALYST Hermelinda Barajas MD Malignant neoplasm of lung, unspecified laterality, unspecified part of lung (Primary Dx) 12/03/2024 10:15 AM EDT Social Work Social Work Department, [facility] at [address] [address] Hermelinda Barajas MD Levine, Mariah, EXERCISE PHYSIOLOGY PROFESSOR 11/27/2024 Refill [facility] Thoracic Oncology, [address], [address] [place] [address] Cindi Shell CNP Medication Refill 11/26/2024 10:00 AM EDT Social Work Social Work Department, [facility] at [address] [address] Hermelinda Barajas MD Levine, Mariah, EXERCISE PHYSIOLOGY PROFESSOR 11/22/2024 1:00 PM EDT Telemedicine [facility] Endocrine, Diabetes, and Hypertension [address] [address] Svetlana Lucero, RigoD Type 2 diabetes mellitus with hyperglycemia, with long-term current use of insulin (Primary Dx) 11/20/2024 Telephone [facility], [address], [address] [place] [address] Patria Mar, RN 11/20/2024 Telephone [facility] Thoracic Oncology, [facility] [address] [facility], [address] [place] [address] Helena Garnica, RN Care Coordination 11/16/2024 9:00 AM EDT [facility] Visit [facility] [address] [place] [address] Andrew Lima MD Chronic midline low back pain without sciatica (Primary Dx); Class 1 obesity due to excess calories with serious comorbidity and body mass index (BMI) of 34.0 to 34.9 in adult 11/16/2024 8:14 AM EDT - 11/16/2024 11:59 PM EDT Hospital Encounter [facility] MSK Diagnostic X-ray Imaging, [place] [address] [place] [address] Andrew Lima MD Discharge Disposition: Home or Self Care 11/13/2024 8:30 AM EDT Infusion Infusion Therapy Services [address] [facility], 9th [place] [address] Hermelinda Barajas MD Devitt, Suzanne Brigid, BRIELLE Primary adenocarcinoma of lung, unspecified laterality (Primary Dx) 11/13/2024 7:30 AM EDT Office Visit [facility], [facility] [address] [facility], [address] [place] [address] Hermelinda Barajas MD Malignant neoplasm of lung, unspecified laterality, unspecified part of lung (Primary Dx); Encounter for long-term (current) use of medications 11/13/2024 Telephone [facility] DIABETES MEDICINE [address] [place] [address] Frank Partida, PhD SUZY/ADVICE 11/09/2024 9:07 AM EDT - 11/09/2024 11:59 PM EDT Hospital Encounter [facility], [facility] [address] [place] [address] Hermelinda Barajas MD Discharge Disposition: Home or Self Care 11/07/2024 Orders Only [facility] [address] [place] [address] Andrew Lima MD Pain (Primary Dx) 11/05/2024 3:30 PM EDT Social Work Social Work Department, [facility] [place] [address] [facility] [address]th [place] [address] Hermelinda Barajas MD Levine, Mariah [facility] 11/01/2024 10:00 AM EDT Telemedicine [facility] [address] [place] [address] Thiago Bean MD Paroxysmal atrial fibrillation (Primary Dx); Primary hypertension 10/30/2024 Telephone [facility] Endocrinology [address] [place] [address] Morgan Butts DM Device Orders (Freestyle Nadir 3 plus) 10/25/2024 10:00 AM EDT Office Visit [facility] DIABETES MEDICINE [address] [place] [phone] Frank Partida MD Type 2 diabetes mellitus with hyperglycemia, with long-term current use of insulin (Primary Dx); Primary adenocarcinoma of lung, unspecified laterality; Vitamin D deficiency, unspecified; Anemia, unspecified type 10/24/2024 Telephone [facility], [facility] [address] [facility], [address] [place] [address] Helena Garnica, RN Symptom Management 10/23/2024 8:30 AM EDT Infusion Infusion Therapy Services [place], [facility] [address] [facility], [address] [place] [address] Hermelinda Barajas MD Viola, Olimpia, BRIELLE Primary adenocarcinoma of lung, unspecified laterality (Primary Dx) 10/23/2024 7:30 AM EDT Office Visit [facility], [facility] [address] [facility], [address] [place] [address] Cindi Shell CNP Primary adenocarcinoma of lung, unspecified laterality (Primary Dx) 10/23/2024 Orders Only [facility] EKG [address] [place] [phone] Guanakito Gallardo MD Paroxysmal atrial fibrillation (Primary Dx) 10/20/2024 Documentation [facility] Cardiology [address] [place] [address] Geraldine Ngo PA-C 10/19/2024 Telephone [facility] [address] [place] [address] Melanie Cruz PA-C Antonellis/pt returning call 10/19/2024 Telemedicine [facility] Cardiology [address] [place] [address] Melanie Cruz PA-C Paroxysmal atrial fibrillation (Primary Dx) 10/18/2024 11:27 AM EDT Anesthesia Event [facility] Electrophysiology Lab [address] [place] [address] Zain Carmona MD Sohn, CRICKET Spence 10/18/2024 11:10 AM EDT - 10/18/2024 4:20 PM EDT Surgery [facility] Electrophysiology Lab [address] [place] [address] Guanakito Gallardo MD Ablation, Atrial Fibrillation Paroxysmal 10/18/2024 9:01 AM EDT - 10/18/2024 7:22 PM EDT Hospital Encounter [facility] L2 PRU [address] [place] [address] Guanakito Gallardo MD Discharge Disposition: Home or Self Care 10/18/2024 8:49 AM EDT - 10/18/2024 9:00 AM EDT Hospital Encounter [facility] Phlebotomy Admitting [address] [place] [address] Discharge Disposition: Home or Self Care 10/18/2024 Procedure Pass [facility] Echocardiography [address] [place] [address] 10/18/2024 Procedure Pass [facility] Electrophysiology Lab [address] [place] [address] 10/17/2024 2:20 PM EDT - 10/17/2024 11:59 PM EDT Hospital Encounter [facility] Radiology [address] [place] [address] Yeimy Holder PA-C Discharge Disposition: Home or Self Care 10/17/2024 Procedure Pass [facility] Radiology [address] [place] [address] 10/17/2024 Ancillary Orders [facility] Cardiology [address] [place] [address] Yeimy Holder PA-C Retinal artery occlusion (Primary Dx); Paroxysmal atrial fibrillation 10/16/2024 1:30 PM EDT Social Work Social Work Department, [facility] [address] [facility] 4th [place] [address] Hermelinda Barajas MD Levine, Mariah, LICSW 10/02/2024 9:30 AM EDT Infusion Infusion Therapy Services [address] [facility], [address] [place] [address] Hermelinda Barajas MD Viola, Olimpia, RN Primary adenocarcinoma of lung, unspecified laterality (Primary Dx) 10/02/2024 8:30 AM EDT Office Visit [facility], [facility] [address] [facility], [address] [place] [address] Cindi Shell CNP Primary adenocarcinoma of lung, unspecified laterality (Primary Dx) 09/27/2024 Orders Only [facility] Card[facility] [address] [place] [address] Kirsten Coleman PA-C Paroxysmal atrial fibrillation (Primary Dx) 09/27/2024 Refill [facility], [facility] [address] [facility], [address] [place] [address] Cindi Shell CNP Med Change Request 09/25/2024 11:30 AM EDT Office Visit [facility] [address] [place] [address] Thiago Bean MD Paroxysmal atrial fibrillation (Primary Dx) 09/25/2024 Procedure Pass [facility] [address] [place] [address] 09/25/2024 Orders Only [facility] Cardiology [address] [place] [address] Yeimy Holder PA-C Retinal artery occlusion (Primary Dx); Paroxysmal atrial fibrillation 09/25/2024 Telephone [facility] [address] [place], [place] [phone] Thiago Bean MD Clinical Research Assistant Call 09/25/2024 Telephone [facility] [address] [place], [place] [phone] Guanakito Gallardo MD Tadros/ Tasneem 09/10/2024 Procedure Pass [facility], Ct Scan - [facility] [address] [place] [address] 09/10/2024 Procedure Pass [facility], Al Scan [facility] [address] [place] [address] from Last 3 Months Family History Medical History Relation Comments Cancer Neg Hx Social History Tobacco Use Types Packs/Day Years Used Date Smoking Tobacco: Former Cigarettes 1 20 2 - 2021 Smokeless Tobacco: Never Tobacco Cessation:Counseling [...] oz) 12/25/2024 7:07 A M EDT Height 193 cm (6' 4 ) 11/16/2024 8:55 AM EDT Body Mass Index 34.81 11/16/2024 8:55 AM EDT Plan of Treatment Upcoming Encounters Date Type Department Care Team (Late st Contact Info) Description 10/18/2024 Procedure Pass [facility] [address] [place] [address] 10/23/2024 Procedure Pass [facility] EKG [address] [place] [address] 10/23/2024 Procedure Pass [facility] EKG [address] [place] [address] 11/13/2024 Procedure Pass [address] [address] 11/13/2024 Procedure Pass [address] [address] 12/25/2024 Procedure Pass [address] [address] 01/05/2025 9:25 AM EST Appointment [address] [address] Hermelinda Barajas MD 450 [facility] [place] [address] [place] [address] [email or web address] 01/08/2025 1:00 PM EST Telemedicine - audio only [facility], [facility] 450 Wendy Lemus [facility], 9th [place] [address] Cindi Shell CNP 450 [place], [place] [email or web address] Hermelinda Barajas MD 450 [employer] [address] [place] [address] [email or web address] 01/11/2025 11:45 AM EST Appointment [address] [address] eHrmelinda Barajas MD [address] [address] [email or web address] 01/15/2025 7:10 AM EST Blood Draw Laboratory Services, [address], 2[address] Floor [place], [place] Cindi Shell CNP [address] [place] [address] [email or web address] 01/15/2025 8:00 AM EST Office Visit [facility], [address], 9th [place] [address] Hermelinda Barajas MD [address] [place] [address] [email or web address] 01/15/2025 9:00 AM EST Infusion Infusion Therapy Services [place] , [address], 9th [place] [address] Cindi Shell CNP [address] [place] [address] [email or web address], [facility] Patria Luevano, BRIELLE [address] [place], [place] [email or web address] 01/17/2025 10:00 AM EST Telemedicine [facility] Medical Weight Management [address] [place] [address] Svetlana Lucero, RigoD [address] [place] [address] [email or web address] 01/18/2025 7:35 AM EST Hospital Encounter [facility] EKG [address] [place] [address] Guanakito Gallardo MD 75 [facility] [place] [address] [email or web address] 01/18/2025 8:30 AM EST Appointment [facility] [address] [place] [address] Odalis Jimenez PA-C 70 [facility] 5th [place] [address] [email or web address] 02/01/2025 8:40 AM EST Office Visit [facility] Otolaryngology 45 [facility] AS[facility]2 [place] [address] Demetrio Armstrong MD [address] [place] [phone] [email or web address] 02/14/2025 10:20 AM EST Office Visit [facility] DIABETES MEDICINE [address] [place] [address] Frank Partida MD [address] [place] [address] [email or web address] 02/25/2025 9:30 AM EST Telemedicine [facility] [address] [place] [address] Guanakito Gallardo MD [address] [place] [address] 07/04/2025 10:00 AM EDT Telemedicine [facility] [address] [place] [address] Thiago Bean MD [address] [place] [address] [email or web address] 10/18/2025 7:05 AM EDT Hospital Encounter [facility] EKG [address] [place] [address] Guanakito Gallardo MD [address] [place] [address] [email or web address] Arrived Health Maintenance Due Date Last Done Comments DEPRESSION SCREENING 1977 HIV ONE-TIME SCREENING (18-65 YEARS) 1983 COLOGUARD 2010 FIT TEST 2010 FOBT 2010 SIGMOIDOSCOPY 2010 VIRTUAL COLONOSCOPY 2010 ZOSTER VACCINES (2 of 2) 01/17/2024 11/22/2023 COVID-19 VACCINE (3 - season) 2024 08/13/2020, 07/23/2020 DIABETIC EYE EXAM 11/22/2024 05/17/2023, , 05/17/2023, Additional history exists HEMOGLOBIN A1C 04/27/2025 10/25/2024 BLOOD PRESSURE 06/25/2025 12/25/2024 SMOKING Hx and SMOKELESS TOBACCO SCREENING 09/25/2025 09/25/2024 CREATININE LEVEL 12/25/2025 12/25/2024, 08/2024, 11/13/2024, Additional history exists POTASSIUM LEVEL 12/25/2025 12/25/2024, 08/2024, 11/13/2024, Additional history exists Adult Td,Tdap Booster 12/04/2033 12/05/2023 , 12/27/2018, 12/01/2011 COLONOSCOPY 09/24/2034 09/24/2024 COLORECTAL CANCER SCREENING 09/24/2034 HEPATITIS C SCREENING Completed 07/20/2022 PNEUMOCOCCAL VACCINES (50+ years) Completed 10/30/2022 INFLUENZA VACCINE Completed 11/15/2024, , 10/30/2022 RSV VACCINE Completed 11/29/2024 HEPATITIS A VACCINES Aged Out No long [...] this topic Medical Devices Implanted Type Area Automotive Parts Coordinator Device Identifier Shelf Expiration Date Model / Serial / Lot Device Watchman 24mm Flx Pro [employer] - [id number] Implanted:Qt y: 1 on 10/18/2024 by Guanakito Gallardo MD at [facility] AYLEEN Occluder N/A: Left Atrial Appendage [id number] LINDA [id number] 08/22/2027 [id number] / / [id number] Procedures Procedure Name Priority Date/Time Associated Diagnosis Comments MAGNESIUM Routine 12/25/2024 6:53 AM EDT Malignant neoplasm of lung, unspecified laterality, unspecified part of lung TSH Routine 12/25/2024 6:53 AM EDT Malignant neoplasm of lung, unspecified laterality, unspecified part of lung Encounter for long-term (current) use of medications FREE T4 Routine 12/25/2024 6:53 AM EDT Malignant neoplasm of lung, unspecified laterality, unspecified part of lung Encounter for long-term (current) use of medications COMPREHENSIVE METABOLIC PANEL Routine 12/25/2024 6:53 AM EDT Malignant neoplasm of lung, unspecified laterality, unspecified part of lung CBC AND DIFFERENTIAL Routine 12/25/2024 6:53 AM EDT Malignant neoplasm of lung, unspecified laterality, unspecified part of lung MAGNESIUM Routine 12/04/2024 7:33 AM EDT Malignant neoplasm of lung, unspecified laterality, unspecified part of lung TSH Routine 12/04/2024 7:33 AM EDT Malignant neoplasm of lung, unspecified laterality, unspecified part of lung Encounter for long-term (current) use of medications FREE T4 Routine 12/04/2024 7:33 AM EDT Malignant neoplasm of lung, unspecified laterality, unspecified part of lung Encounter for long-term (current) use of medications COMPREHENSIVE METABOLIC PANEL Routine 12/04/2024 7:33 AM EDT Malignant neoplasm of lung, unspecified laterality, unspecified part of lung HC BLOOD COUNT COMPLETE AUTO&AUTO DIFRNTL WBC Routine 12/04/2024 7:33 AM EDT Malignant neoplasm of lung, unspecified laterality, unspecified part of lung XR LUMBOSACRAL SPINE 2-3 VIEWS Routine 11/16/2024 8:22 AM EDT Pain MAGNESIUM Routine 11/13/2024 6:42 AM EDT Primary adenocarcinoma of lung, unspecified laterality TSH Routine 11/13/2024 6:42 AM EDT Primary adenocarcinoma of lung, unspecified laterality Encounter for long-term (current) use of medications FREE T4 Routine 11/13/2024 6:42 AM EDT Primary adenocarcinoma of lung, unspecified laterality Encounter for long-term (current) use of medications COMPREHENSIVE METABOLIC PANEL Routine 11/13/2024 6:42 AM EDT Primary adenocarcinoma [...] AM EDT POCT HEMOGLOBIN A1C Routine 10/25/2024 1 0:21 AM EDT MAGNESIUM Routine 10/23/2024 7:15 AM EDT Primary adenocarcinoma of lung, unspecified laterality TSH Routine 10/23/2024 7:15 AM EDT Primary adenocarcinoma of lung, unspecified laterality Encounter for long-term (current) use of medications FREE T4 Routine 10/23/2024 7:15 AM EDT Primary adenocarcinoma of lung, unspecified laterality Encounter for long-term (current) use of medications COMPREHENSIVE METABOLIC PANEL Routine 10/23/2024 7:15 AM EDT Primary adenocarcinoma of lung, unspecified laterality HC BLOOD COUNT COMPLETE AUTO&AUTO DIFRNTL WBC Routine 10/23/2024 7:15 AM EDT Primary adenocarcinoma of lung, unspecified laterality POCT GLUCOSE Routine 10/18/2024 6:50 PM EDT TTE LIMITED W/ COLOR FLOW AND LIMITED DOPPLER Routine 10/18/2024 3:52 PM EDT Pericardial effusion (noninflammatory) POCT GLUCOSE Routine 10/18/2024 3:15 PM EDT ECG 12-LEAD Routine 10/18/2024 3:09 PM EDT EP STUDY Routine 10/18/2024 2:35 PM EDT Retinal artery occlusion Paroxysmal atrial fibrillation EP STUDY Routine 10/18/2024 2:35 PM EDT Retinal artery occlusion Paroxysmal atrial fibrillation POCT ACTIVATED CLOTTING TIME, HEMOCHRON Routine 10/18/2024 1:56 PM EDT POCT ACTIVATED CLOTTING TIME, HEMOCHRON Routine 10/18/2024 1:28 PM EDT POCT ACTIVATED CLOTTING TIME, HEMOCHRON Routine 10/18/2024 1:03 PM EDT POCT ACTIVATED CLOTTING TIME, HEMOCHRON Routine 10/18/2024 12:38 PM EDT AIRWAY PLACEMENT Routine 10/18/2024 11:4 5 AM EDT TYPE AND SCREEN (ABO,RH,ANTIBODY SCREEN) STAT 10/18/2024 8:52 AM EDT PTT STAT 10/18/2024 8:52 AM EDT PT-INR STAT 10/18/2024 8:52 AM EDT CBC AND DIFFERENTIAL STAT 10/18/2024 8:52 AM EDT BASIC METABOLIC PANEL STAT 10/18/2024 8:[address] ANGIO CHEST Routine 10/17/2024 2:50 PM EDT Retinal artery occlusion Paroxysmal atrial fibrillation CT CARDIAC WITH CONTRAST Routine 10/17/2024 2:50 PM EDT Retinal artery occlusion Paroxysmal atrial fibrillation COMPREHENSIVE METABOLIC PANEL STAT 10/02/2024 9:47 AM EDT Primary adenocarcinoma of lung, [...] lung, unspecified laterality COMPREHENSIVE METABOLIC PANEL Routine 10/02/2024 7:26 AM EDT Primary adenocarcinoma of lung, unspecified laterality HC BLOOD COUNT COMPLETE AUTO&AUTO DIFRNTL WBC Routine 10/02/2024 7:26 AM EDT Primary adenocarcinoma of lung, unspecified laterality ECG 12-LEAD Routine 09/25/2024 12:22 PM EDT ENDOSCOPY, COLON 09/24/2024 7:13 AM EDT HEPATITIS C ANTIBODY WITH REFLEX TO HCV, RNA QUANTITATIVE REAL-TIME PCR Routine 07/20/2022 7:26 AM EDT Primary adenocarcinoma of lung, unspecified laterality Transaminitis from Last 3 Months or Most Recently Relevant to Health Maintenance Results * (ABNORMAL) Comprehensive metabolic panel (12/25/2024 6:53 AM EDT) Only the most recent of6 resultswithin the time period is included. SODIUM 136 136 - 145 mmol/L [facility] POTASSIUM 3.9 3.4 - 5.1 mmol/L [facility] CHLORIDE 97(L) 98 - 107 mmol/L [facility] CO2 22 22 - 31 mmol/L [facility] BUN 29(H) 6 - 23 mg/dL [facility] CREATININE 1.30(H) 0.50 - 1.20 mg/dL [facility] GLUCOSE 189(H) 70 - 100 mg/dL [facility] ALBUMIN 4.7 3.5 - 5.2 g/dL [facility] TOTAL PROTEIN 8.1 6.4 - 8.3 g/dL [facility] CALCIUM 10.1 8.8 - 10.7 mg/dL [facility] ALKALINE PHOSPHATASE 78 40 - 129 U/L [facility] TOTAL BILIRUBIN 0.3 0.2 - 1.2 mg/dL [facility] AST 22 <41 U/L [facility] ALT 51(H) <42 U/L [facility] GLOBULIN 3.4 2.3 - 4.2 g/dL [facility] EGFR 63 >59 mL/min/1.7 3m2 [facility] Comment:Estimated glomerular filtration rate calculated using the CKD-EPI refit equation. ANION GAP 17 7 - 17 mmol/L [facility] Blood 12/25/2024 6:53 AM EDT 12/25/2024 7:10 AM EDT us Hermelinda Barajas MD LAB BLOOD ORDERABLES Final Resu lt [facility] [address] [place] [address] * (ABNORMAL) CBC and differential (12/25/2024 6:53 AM EDT) Only the most recent of6 resultswithin the time period is included. WBC 8.36 4.00 - 10.00 K/uL [facility] RBC 3.96(L) 4.50 - 6.40 M/uL [facility] HGB 10.6(L) 13.5 - 18.0 g/dL [facility] HCT 34.1(L) 40.0 - 54.0 % [facility] PLT 308 150 - 450 K/uL [facility] MCV 86.1 80.0 - 100.0 fL [facility] MCH 26.8(L) 27.0 - 32.0 pg [facility] MCHC 31.1(L) 32.0 - 36.0 g/dL [facility] RDW 15.4(H) 11.5 - 14.5 % [facility] MPV 9.8 8.4 - 12.0 fL [facility] NRBC 0.00 0 /100 WBCs [facility] ABSOLUTE NRBC 0.00 0 K/uL [facility] DIFF METHOD Auto [facility] NEUTS 72.3 48.0 - 76.0 % [facility] LYMPHS 20.2 18.0 - 41.0 % [facility] MONOS 7.2 4.0 - 11.0 % [facility] EOS 0.0 0.0 - 5.0 % [facility] BASOS 0.1 0.0 - 1.5 % [facility] % IMMATURE GRANS 0.2 0.0 - 1.0 % [facility] ABSOLUTE NEUTS 6.04 1.92 - 7.60 K/uL [facility] ABSOLUTE LYMPHS 1.69 0.72 - 4.10 K/uL [facility] ABSOLUTE MONOS 0.60 0.16 - 1.10 K/uL [facility] ABSOLUTE EOS 0.00 0.00 - 0.50 K/uL [facility] ABSOLUTE BASOS 0.01 0.00 - 0.15 K/uL [facility] ABS IMMATURE GRANS 0.02 0.00 - 0.10 K/uL [facility] Blood 12/25/2024 6:53 AM EDT 12/25/2024 7:10 AM EDT Hermelinda Barajas MD LAB BLOOD ORDERABLES Final Resu lt Performing Organization Address [facility] de Phone Number [facility] [address] [place] [address] * TSH (12/25/2024 6:53 AM EDT) Only the most recent of5 resultswithin the time period is included. TSH 0.48 0.27 - 4.20 uIU/mL [facility] Blood 12/25/2024 6:53 AM EDT 12/25/2024 7:10 AM EDT Hermelinda Barajas MD LAB BLOOD ORDERABLES Final Resu lt Performing Organization Address [facility] Phone Number [facility] [address] [place] [address] * Free T4 (12/25/2024 6:53 AM EDT) Only the most recent of5 resultswithin the time period is included. FREE T4 1.1 0.9 - 1.7 ng/dL [facility] Blood 12/25/2024 6:53 AM EDT 12/25/2024 7:10 AM EDT Hermelinda Barajas MD LAB BLOOD ORDERABLES Final Resu lt Performing Organization Address [facility] de Phone Number [facility] [address] [place] [address] * (ABNORMAL) Magnesium (12/25/2024 6:53 AM EDT) Only the most recent of5 resultswithin the time period is included. MAGNESIUM 1.6(L) 1.7 - 2.6 mg/dL [facility] Blood 12/25/2024 6:53 AM EDT 12/25/2024 7:10 AM EDT us Hermelinda Barajas MD LAB BLOOD ORDERABLES Final Resu lt [facility] [address] [place] [address] * XR LUMBOSACRAL SPINE 2-3 VIEWS (11/16/2024 [...] clinician's provided indication for this examination in [facility]: Pain COMPARISON: CT ABDOMEN/PELVIS WITH CONTRAST Procedure Note Mele Talamantes MD - 11/16/2024 XR LUMBOSACRAL SPINE 2-3 VIEWS Referring clinician's provided indication for this examination in [facility]:Pain COMPARISON: CT ABDOMEN/PELVIS WITH CONTRAST IMPRESSION: 5 nonrib-bearing lumbar-type vertebral bodies. No compression deformities.No abnormal jorge-retrolisthesis. Mild degenerative changes of the lefthip with slight superolateral joint space narrowing and acetabularspurring. There are vascular calcifications. us Andrew Lima MD IMG XR SPINE Final Result * CT CHEST WITH CONTRAST [...] clinician's provided indication for this examination in [facility]: * Non- small cell lung cancer, [...] clinician's provided indication for this examination in [facility]: *Non- small cell lung cancer, metastatic, assess treatment response TECHNIQUE: Multidetector CT of the chest was performed with intravenouscontrast using tailored dose modulation techniques. COMPARISON: CT CHEST WITH CONTRAST ; CT CHEST WITH [id number]; CT CHEST WITH CONTRAST ; CT CHEST WITH [id number]; CT CHEST PULMONARY ANGIOGRAM (ACUTE) FINDINGS: Devices/Tubes/Lines: [...] clinician's provided indication for this examination in [facility]: * Non- small cell lung cancer, [...] clinician's provided indication for this examination in [facility]: *Non- small cell lung cancer, metastatic, [...] 10:24 AM EDT) Only the most recent of3 resultswithin the time period is included. Glucose, POCT 165(H) 70 - 100 mg/dL [facility] 10/25/2024 10:2 4 AM EDT 10/25/2024 10:25 AM EDT Frank Partida MD POINT OF CARE TEST ORDERABLES Fi nal Result [address] [address] * (ABNORMAL) POCT Hemoglobin A1c (10/25/2024 10:21 AM EDT) HGB A1C 6.8(H) 4.2 - 5.6 % [facility] Comment:HbA1c levels 5.7-6.4 % represent [...] OF CARE TEST ORDERABLES Fi nal Result [address] [address] * TTE LIMITED W/ COLOR FLOW AND [...] BPM [facility] Atrial Rate 93 BPM [facility] WI Interval 198 ms [facility] QRS Duration 94 ms [facility] QT Interval 368 ms [facility] QTC Interval 457 ms [facility] P [place] 66 degrees [facility] R Wave [place] 32 degrees [facility] T Wave [place] 55 degrees [facility] 10/18/2024 3:09 PM EDT [...] result were not included. OPERATIVE REPORT Patient: Jesse Patrick Sr. [facility] Medical Record: [id number] Date of : 1965 Date of Procedure: [...] for atrial fibrillation (pulmonary vein isolation) (CPT 01117). Additional ablation for atrial fibrillation after PVI (left atrial posterior wall isolation) (CPT 99817). Three-dimensional mapping (CPT 07722). Intracardiac echocardiography (CPT 68235). 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 ATTENDING Guanakito Gallardo MD SHAMPOO ASSISTANT Pari Rivera MD PATIENT HISTORY: 59 y.o. [...] and immediately available for all other components. us Guanakito Gallardo MD CV ELECTROPHYSIOLOGY OR DERABLES Final Result * (ABNORMAL) POCT Activated Clotting Time (10/18/2024 1:56 PM EDT) Only the most recent of4 resultswithin the time period is included. activated clotting time 337(H) 74 - 137 SEC [facility] CATH DI[facility] 10/18/2024 1:56 PM EDT 10/18/2024 2:22 PM EDT us Guanakito Gallardo MD POINT OF CARE TEST RAMON ROPERKOBY Final Result [facility] CATH DI[facility] [address] [place] [address] * ANES ETT DOUBLE LUMEN - AIRWAY LDA (10/18/2024 11:45 AM EDT) Narrative Malachi Powers MBBS - 10/18/2024 11:45 AM EDT Malachi Powers MBBS 10/18/2024 12:01 PM Airway Placement Procedure Note: Patient was not difficult to intubate. Procedure performed by: fellow/resident/MAINTENANCE ENGINEER Anesthesiologist: Zain Carmona MD Fellow/Resident/MAINTENANCE ENGINEER: Malachi Powers MBBS Airway procedure initiated at:10/18/2024 [...] prior to intubation. us Zain Carmona MD [place] ANESTHESIA Final Result * (ABNORMAL) PTT (10/18/2024 8:52 AM EDT) APTT 38.7(H) 24.0 - 37.5 sec [facility] Comment:Emicizumab (Hemlibra ) treatment can result in falsely lowered aPTT test results. 10/18/2024 8:52 AM EDT 10/18/2024 9:04 AM EDT Guanakito Gallardo MD LAB BLOOD ORDERABLES Fi nal Result Performing Organization Address [facility] de Phone Number [facility] [address] [place] [address] * (ABNORMAL) PT-INR (10/18/2024 8:52 AM EDT) PT 14.9(H) 10.0 - 13.0 sec [facility] INR 1.3(H) 0.9 - 1.1 [facility] 10/18/2024 8:52 AM EDT 10/18/2024 9:04 AM EDT Guanakito Gallardo MD LAB BLOOD ORDERABLES Fi nal Result Performing Organization Address [facility] de Phone Number [facility] [address] [address] * Type and Screen (ABO,Rh,Antibody Screen) (10/18/2024 8:52 AM EDT) Expiration Date of Sample 10/21/2024 11:59 PM 10/18/2024 10:03 AM EDT [facility] Resulting Agency [facility] ABO Type A 10/18/2024 10:03 AM EDT [facility] Rh Type Positive 10/18/2024 10:03 AM EDT [facility] Antibody Screen Negative 10/18/2024 10:03 AM EDT [facility] 10/18/2024 8:52 AM EDT 10/18/2024 9:07 AM EDT Guanakito Gallardo MD BLOOD BANK TEST ORDERAB LES Final Result Performing Organization Address [facility] Co de Phone Number [facility] [address] [place] [address] * (ABNORMAL) Basic metabolic panel (10/18/2024 8:52 AM EDT) SODIUM 139 136 - 145 mmol/L [facility] POTASSIUM 4.0 3.4 - 5.1 mmol/L [facility] CHLORIDE 100 98 - 107 mmol/L [facility] CO2 27 22 - 31 mmol/L [facility] BUN 19 6 - 23 mg/dL [facility] CREATININE 1.30(H) 0.50 - 1.20 mg/dL [facility] GLUCOSE 135(H) 70 - 100 mg/dL [facility] CALCIUM 9.8 8.8 - 10.7 mg/dL [facility] EGFR 63 >59 mL/min/1. 73m2 [facility] Comment:Estimated glomerular filtration rate calculated using the CKD-EPI refit equation. ANION GAP 12 7 - 17 mmol/L [facility] 10/18/2024 8:52 AM EDT 10/18/2024 9:04 AM EDT Guanakito Gallardo MD LAB BLOOD ORDERABLES Fi nal Result Performing Organization Address [facility] Co de Phone Number [facility] [address] [place] [address] * CT CARDIAC WITH CONTRAST (10/17/2024 2:50 [...] by Godwin Calabrese. us Yeimy Holder PA-C IMYudelka CT CARDIAC Final [...] PA-C IMG CT Final Resul t * ENDOSCOPY, COLON (09/24/2024 7:13 AM EDT) 09/24/2024 7:13 AM EDT Narrative Transcriptions Maude Vides MD, MPH - 09/24/2024 7:13 AM EDT [facility] Gastroenterology Patient Name: Jesse Patrick Procedure Date: 09/24/2024 7:13 AM Date of : 1965 Admit Type: Outpatient Age: 59 Room: 2 Gender: Male Note Status: Finalized Attending MD: Maude Vides MD, Instrument Name: LOANER COLON Procedure: Colonoscopy Indications: Abdominal pain on and off, none recently Patient Profile: This is a 59 year old male. Refer to note in patient chart for documentation of history and physical. Providers: Maude Vides MD, MIGUEL DUNLAP RN Referring MD: [...] Return to referring physician as previously scheduled. Maude Vides MD [id number] Maude Vides MD 09/24/2024 8:21:50 AM This report has been signed electronically. Number of Addenda: 0 Note Initiated On: 09/24/2024 7:13 AM us Grecia Baird MD GI PROCEDURE ORDERABLE S Final Result * Hepatitis C Antibody with Reflex to HCV, RNA quantitative Real-Time PCR (07/20/2022 7:26 AM EDT) HCV Ab Negative Negative [facility] Comment: (NOTE) Nqrevi-kd-thbphj ratio is <1.00. Blood 07/20/2022 7:26 AM EDT 07/20/2022 7:35 AM EDT us Hermelinda Barajas MD LAB BLOOD ORDERABLES Final Resu lt [facility] [address] [place] [address] from Last 3 Months or Most Recently Relevant to Health Maintenance Insurance [facility] MEDICARE PART A & B [facility] MEDICARE PART A & B [facility] MEDICARE PART A & B [facility] MEDICARE PART A & B [facility]IC[facility] PART A & B [facility] MEDICARE PART A & B [facility] MEDICARE PART A & B [facility] MEDICARE PART A & B [facility] MEDICARE PART A & B Advance Directives For more information, please contact: [phone] (9AM - 5PM [facility], Tuesday-Tuesday) Documents on File Type Date Recorded Patient Casino Manager Expl anation Healthcare Proxy 10/19/2024 5:09 PM * Full Code (Latest Code Status on File) Date Activated Date Inactivated Comments 10/18/2024 2:58 PM Question Answer Comments Code Status Confirmed With: Patient * Full Code Date Activated Date Inactivated Comments 10/18/2024 2:58 PM 10/18/2024 2:58 PM Question Answer Comments Code Status Confirmed With: Patient Care Teams Grievance Coordinator Relationship Specialty Start Date End Date Grecia Baird MD [address] [place] [address] [place] [address] PCP - General Internal Medicine 10/13/22 Indigo Du, [facility] [address] [place] [address] [email or web address] Cylinder Dyer Oncology 07/27/22 Hermelinda Barajas MD [address] [place] [address] [place] [address] [email or web address] Medical Oncology 11/29/22 Cindi Shell CNP [address] [place] [address] [email or web address], [facility] Gerontology 11/29/22 Carlos Alberto King MD, [place] [address] [place] [address] Department of Psychosocial Oncology and Palliative Care, [place] [phone] [email or web address] Hospice and Palliative Care 04/05/24 Patria Luevano, BRIELLE [address] [place] [address] [email or web address] Primary Infusion Nurse 05/15/24 Jennie Ferreira, BRIELLE [address] [place] [address] [email or web address] Associate Infusion Nurse 10/02/24 Additional Source Comments The information contained in this document represents components of the legal health record. It is not the complete legal health record.[facility]
--- OUTSIDE RECORDS SUMMARY | 2024-12-26 20:22 | XMS_ITS | Encounter Summary ---
Author Organization [facility] Address [address] [place] [address] Phone Care Team Providers Care Setup Technician Name Role Phone Indigo Du EXTRA GANG SUPERVISOR Unavailable Grecia Bonilla MD Primary Care Provider Hermelinda Barajas MD Unavailable [phone] Cindi Shell [facility] Unavailable Carlos Alberto King MD, [place] Unavailable [phone] Patria Luevano RN Unavailable TOBIAS [email or web address] Jennie Ferreira RN Unavailable [email or web address] Encounter Details Date Type Department Care Team (Late st Contact Info) Description 09/10/2024 Procedure Pass [facility], Ct Scan - [address] [address] Social History Tobacco Use Types Packs/Day Years [...] Procedure Pass [facility] [address] [place] [address] 10/23/2024 Procedure Pass [facility] EKG [address] [place] [address] 10/23/2024 Procedure Pass [facility] E[facility] [address] [place] [address] 11/13/2024 Procedure Pass [address] [address] 11/13/2024 Procedure Pass [address] [address] 12/25/2024 Procedure Pass [address] [address] 01/05/2025 9:25 AM EST Appointment [address] [address] Hermelinda Barajas MD [address] [place] [address] [address] [email or web address] 01/08/2025 1:00 PM EST Telemedicine - audio only [facility], [facility] [address] [facility], 9th [place] [address] Cindi Shell PROFILE SHAPER OPERATOR [address] [place] [address] [email or web address] Hermelinda Barajas MD [address] [place] [address] Pedro@[email or web address] 01/11/2025 11:45 AM EST Appointment [facility], [address] [address] Hermelinda Barajas MD [address] [place] [address] [email or web address] 01/15/2025 7:10 AM EST Blood Draw Laboratory Services, [address], 2nd [place] [address] Cindi Shell PROFILE SHAPER OPERATOR [address] [place] [address] Benedict [email or web address] 01/15/2025 8:00 AM EST Office Visit [facility], [facility] [address] [facility], 9th [place] [address] Hermelinda Barajas MD [address] [place] [address] Pedro@[email or web address] 01/15/2025 9:00 AM EST Infusion Infusion Therapy Services [place] [address], [facility] Cancer [address], 9th [place] [address] Cindi Shell CNP [address] [place] [address] Benedict [email or web address] Patria Luevano, BRIELLE [address] [place] [address] [email or web address]@[email or web address] 01/17/2025 10:00 AM EST Telemedicine [facility] Medical Weight Management [address] [place] [address] Svetlana Lucero, PharmD [address] [place] [address] [email or web address] 01/18/2025 7:35 AM EST Hospital Encounter [facility] EKG [address] [place] [address] Guanakito Gallardo MD [address] [facility] [place] [address] [facility] 01/18/2025 8:30 AM EST Appointment [facility] [address] [place] [address] Odalis Jimenez PA-C [address] [facility] 5th [place] [address] [email or web address] 02/01/2025 8:40 AM EST Office Visit [facility] Otolaryngology [address] [facility] AS[address] [place] [address] Demetrio Armstrong MD [address] [place] [phone] [email or web address] 02/14/2025 10:20 AM EST Office Visit [facility] DIABETES MEDICINE [address] [place] [address] Frank Partida MD [address] [place] [address] [email or web address] 02/25/2025 9:30 AM EST Telemedicine [facility] Cardiovascular Clinic [address] [place] [address] Guanakito Gallardo MD [address] [place] [address] 07/04/2025 10:00 AM EDT Telemedicine [facility] [address] [place] [address] Thiago Bean MD [address] [place] [address] [email or web address] 10/18/2025 7:05 AM EDT Hospital Encounter [facility] EKG [address] [place] [address] Guanakito Gallardo MD [address] [place] [address] Arrived documented as of this encounter Visit Diagnoses Not on filedocumented in this encounter Care Teams Setup Technician Relationship Specialty Start Date End Date Grecia Bonilla MD [address] [place] [address] [place] [address] PCP - General Internal Medicine 10/13/22 Indigo Du, [facility] [address] [place] [address] [email or web address] Child Welfare Assistant Oncology 07/27/22 Hermelinda Barajas MD [address] [place] [address] [place] [address] [email or web address] Medical Oncology 11/29/22 Cindi Shell CNP [address] [place] [address] [email or web address] Gerontology 11/29/22 Carlos Alberto King MD, [place] [address] [place] [address] Department of Psychosocial Oncology and Palliative Care, [place] [phone] Jaelyn@[email or web address] Hospice and Palliative Care 04/05/24 Patria Luevano, BRIELLE [address] [place] [address] [email or web address]@[email or web address] Primary Infusion Nurse 05/15/24 Jennie Ferreira, BRIELLE [address] [place] [phone] [email or web address] Associate Infusion Nurse 10/02/24 documented as of this encounter Additional Source Comments The information contained in this document represents components of the legal health record. It is not the complete legal health record.[facility]
--- OUTSIDE RECORDS SUMMARY | 2024-12-26 20:22 | XMS_ITS ---
Author Organization [facility] Address [address] [place] [address] [place] [address] Phone Care Team Providers Care Vp Software Engineering Name Role Phone Indigo Du [facility] Unavailable [phone] Grecia Bonilla MD Primary Care Provider Hermelinda Barajas MD Unavailable [phone] Cindi Shell VISUAL JOURNALIST Unavailable Carlos Alberto King MD, [place] Unavailable Patria Luevano RN Unavailable TOBIAS [email or web address] Jennie Ferreira RN Unavailable [email or web address] Active Problems Patient Care Coordination No te Formatting of this note migh t be different from the original. 06/18/2022 Jesse Patrick gave verbal permission for staff to speak to his life partner, Ana Morton, at any time re diagnosis, treatment and prognosis. Jesse asked for a referral to [employer]. This agency supplies home health aides. Phone no. = [phone] ex. [phone] and Fax = [phone]. SCHEDULING - PLEASE CALL PATIENT TO SCHEDULE [...] Medications Current Day (Day 1 , Cycle 18 - Planned for 01/15/2025) Next Day (Day 1, Cycle 19 - Planned for 02/05/2025) CARBOplatin (PARAPLATIN) IVP B (by AUC) 270 [...]
--- OUTSIDE RECORDS SUMMARY | 2024-12-26 20:22 | XMS_ITS | Encounter Summary ---
Author Organization [facility] Address [address] [place] [address] [place] [address] Phone Care Team Providers Care Card Room Manager Name Role Phone Aubrey Taylor MD Primary Care Provider [phone] Indigo Du [facility] Unavailable [phone] Jn Cline DO Primary Care Provider Aubrey Taylor MD Primary Care Provider [phone] Marilynn Daly NP Primary Care Provider Unavailab Grecia Rosado MD Primary Care Provider Hermelinda Barajas MD Unavailable [phone] Cindi Shell PROPERTY FIELD INSPECTOR Unavailable [phone] Zuri Ha RN Unavailable Sandra Ruiz@[email or web address] Carlos Alberto King MD, [place] Unavailable [phone] Patria Luevano RN Unavailable TOBIAS [email or web address] Jennie Ferreira RN Unavailable ALISON@ [facility] Encounter Details Date Type Department Care Team (Late st Contact Info) Description 06/15/2022 Procedure Pass [facility] Echocardiography [address] [place] [address] Social History Tobacco Use Types Packs/Day Years [...] [facility] [address] [place] [address] 10/23/2024 Procedure Pass [facility] EKG [address] [place] [address] 10/23/2024 Procedure Pass [facility] EKG [address] [place] [address] 11/13/2024 Procedure Pass [address] [address] 11/13/2024 Procedure Pass [address] [address] 12/25/2024 Procedure Pass [address] [address] 01/05/2025 9:25 AM EST Appointment [address] [address] Hermelinda Barajas MD [address] [address] [email or web address] 01/08/2025 1:00 PM EST Telemedicine - audio only [facility] for [facility] On[facility], [facility] Cancer [place] [address] [facility], 9th [place] [address] Cindi Shell CNP 450 [place] [address] Benedict east@[facility] Hermelinda Barajas MD 450 [facility] 1240 [place] [address] Pedro@[email or web address] 01/11/2025 11:45 AM EST Appointment [facility], Ct Scan - [address] [address] Hermelinda Barajas MD 450 [facility] 1240 [place] [address] Pedro@[email or web address] 01/15/2025 7:10 AM EST Blood Draw Laboratory Services, [address], 2nd [place] [address] Cindi Shell CNP [address] [place] [address] Benedict east@[facility] 01/15/2025 8:00 AM EST Office Visit [facility], [address], 9th [place] [address] Hermelinda Barajas MD [address] [place] [address] Pedro@[email or web address] 01/15/2025 9:00 AM EST Infusion Infusion Therapy Services [facility] 9, [address], 9th [place] [address] Cindi Shell CNP [address] [place] [address] Benedict east@[facility] Patria Luevano, RN 450 [place] [address] STEFANO@[facility] 01/17/2025 10:00 AM EST Telemedicine [facility] Medical Weight Management 45 [place] [address] Svetlana Lucero, RigoD 75 [place] [address] [email or web address] 01/18/2025 7:35 AM EST Hospital Encounter [facility] EKG [address] [place] [address] Guanakito Gallardo MD 75 [facility] [place] [address] [email or web address] [facility] 01/18/2025 8:30 AM EST Appointment [facility] [address] [place] [address] Odalis Jimenez PA-C 70 [facility] 5th [place] [address] [email or web address] 02/01/2025 8:40 AM EST Office Visit [facility] Otolaryngology 45 [facility] [place] [address] Demetrio Armstrong MD 45 [place] [address] [email or web address] 02/14/2025 10:20 AM EST Office Visit [facility] DIABETES MEDICINE 45 [place] [address] Frank Partida MD 221 [place] [address] jose [email or web address] 02/25/2025 9:30 AM EST Telemedicine [facility] 70 [place] [address] Guanakito Gallardo MD [address] [place] [address] [place] [address] 07/04/2025 10:00 AM EDT Telemedicine [facility] 70 [place] [address] Thiago Bean MD 75 [place] [address] [email or web address] 10/18/2025 7:05 AM EDT Hospital Encounter [facility] EKG 70 [place] [address] Guanakito Gallardo MD [address] [place] [address] [place] [address] [email or web address] Arrived documented as of this encounter Visit Diagnoses Not on filedocumented in this encounter Additional Health Concerns Infection Onset Date Last Indicated Resolved Time COVID-19 04/06/2023 04/06/2023 04/27/2023 1:21 AM EST CoV-Risk 07/17/2024 07/17/2024 07/28/2024 1:21 AM EDT documented as of this encounter Care Teams Card Room Manager Relationship Specialty Start Date End [place] [address] PCP - General Internal Medicine 05/28/22 08/03/22 Jn Cline DO [address] [place] [address] [email or web address] [employer] [place] PCP - General Hospitalist 08/04/22 08/12/22 Aubrey Taylor MD [address] [place] [address] PCP - General Internal Medicine 08/13/22 09/14/22 Marilynn Daly, BAKERY WORKER CONVEYOR LINE PCP - General Nurse Practitioner 09/15/22 10/12/22 Grecia Bonilla MD [address] [place] [address] [place] [address] PCP - General Internal Medicine 10/13/22 Indigo Du, [address] [address] [email or web address] Staple Fiber Washer Oncology 07/27/22 Hermelinda Barajas MD [address] [place] [address] Pedro@[facility] Medical Oncology 11/29/22 Cindi Shell CNP [address] [place] [address] Fina@[facility] Gerontology 11/29/22 Zuri Ha RN [address] [place] [address] Milton@[email or web address] Primary Infusion Nurse 01/10/24 05/14/24 Carlos Alberto King MD, [place] [address] [place] [address] Department of Psychosocial Oncology and Palliative Care, [place] [address] Jaelyn@[facility] Hospice and Palliative Care 04/05/24 Patria Luevano, BRIELLE [address] [place] [address] [email or web address]@[email or web address] Primary Infusion Nurse 05/15/24 Jennie Ferreira, RN [address] [place] [address] ALISON@[email or web address] Associate Infusion Nurse 10/02/24 documented as of this encounter Additional Source Comments The information contained in this document represents components of the legal health record. It is not the complete legal health record.[facility]
--- OUTSIDE RECORDS SUMMARY | 2024-12-26 20:22 | XMS_ITS | Encounter Summary ---
Author Organization [facility] Address [address] [place] [address] Phone Care Team Providers Care Junior Bookkeeper Name Role Phone Indigo Du SOFT WORK WRAPPER LAYER AND EXAMINER Unavailable Grecia Bonilla MD Primary Care Provider Hermelinda Barajas MD Unavailable [phone] Cindi Shell [facility] Unavailable Carlos Alberto King MD, [place] Unavailable [phone] Patria Luevano RN Unavailable TOBIAS [email or web address] Jennie Ferreira RN Unavailable ALISON@ [email or web address] Encounter Details Date Type Department Care Team (Late st Contact Info) Description 09/10/2024 Procedure Pass [facility], Ct Scan - [address] [address] Social History Tobacco Use Types Packs/Day Years [...] Procedure Pass [facility] [address] [place] [address] 10/23/2024 Procedure Pass [facility] EKG [address] [place] [address] 10/23/2024 Procedure Pass [facility] EKG [address] [place] [address] 11/13/2024 Procedure Pass [address] [address] 11/13/2024 Procedure Pass [address] [address] 12/25/2024 Procedure Pass [address] [address] 01/05/2025 9:25 AM EST Appointment [address] [address] Hermelinda Barajas MD [address] [place] [address] [address] Pedro@[facility] 01/08/2025 1:00 PM EST Telemedicine - audio only [facility] for [facility] On[facility], [facility] 450 [facility], 9th [place] [address] Cindi Shell FISH BONING MACHINE FEEDER 450 [place] [address] Benedict east@[facility] Hermelinda Barajas MD [address] [place] [address] Pedro@[facility] 01/11/2025 11:45 AM EST Appointment [facility], [address] [address] Hermelinda Barajas MD [address] [place] [address] Pedro@[facility] 01/15/2025 7:10 AM EST Blood Draw Laboratory Services, [address], 2nd [place] [address] Cindi Shell FISH BONING MACHINE FEEDER [address] [place] [address] Benedict east@[facility] 01/15/2025 8:00 AM EST Office Visit [facility], [facility] 450 [facility], 9th [place] [address] Hermelinda Barajas MD [address] [place] [address] Pedro@[facility] 01/15/2025 9:00 AM EST Infusion Infusion Therapy Services [place] [address], [facility] Cancer [address], 9th [place] [address] Cindi Shell CNP 450 [place] [address] Benedict [email or web address] Patria Luevano, BRIELLE [address] [place] [address] STEFANO@[facility] .[facility] 01/17/2025 10:00 AM EST Telemedicine [facility] Medical Weight Management [address] [place] [address] Svetlana Lucero, PharmD [address] [place] [address] [email or web address] 01/18/2025 7:35 AM EST Hospital Encounter [facility] EKG 70 [place] [address] Guanakito Gallardo MD 75 [facility] [place] [address] [facility] 01/18/2025 8:30 AM EST Appointment [facility] 70 [place] [address] Odalis Jimenez PA-C 70 [facility] 5th [place] [address] [email or web address] 02/01/2025 8:40 AM EST Office Visit [facility] Otolaryngology 45 [facility] ASB2-2 [place] [address] Demetrio Armstrong MD 45 [place] [address] [email or web address] 02/14/2025 10:20 AM EST Office Visit [facility] DIABETES MEDICINE [address] [place] [address] Frank Partida MD [address] [place] [address] jose [email or web address] 02/25/2025 9:30 AM EST Telemedicine [facility] Cardiovascular Clinic [address] [place] [address] Guanakito Gallardo MD [address] [place] [address] 07/04/2025 10:00 AM EDT Telemedicine [facility] Clinic [address] [place] [address] Thiago Bean MD [address] [place] [address] [email or web address] 10/18/2025 7:05 AM EDT Hospital Encounter [facility] EKG [address] [place] [address] Guanakito Gallardo MD [address] [place] [address] Arrived documented as of this encounter Visit Diagnoses Not on filedocumented in this encounter Care Teams Junior Bookkeeper Relationship Specialty Start Date End Date Grceia Bonilla MD [address] [place] [address] [place] [address] PCP - General Internal Medicine 10/13/22 Indigo Du, [facility] 300 [place] [address] [email or web address] Personnel Associate Oncology 07/27/22 Hermelinda Barajas MD [address] [place] [address] [place] [address] [email or web address] Medical Oncology 11/29/22 Cindi Shell CNP [address] [place] [address] Fina@[facility] Gerontology 11/29/22 Carlos Alberto King MD, [place] [address] [place] [address] Department of Psychosocial Oncology and Palliative Care, [place] [phone] Jaelyn@[facility] Hospice and Palliative Care 04/05/24 Patria Luevano, BRIELLE [address] [place] [address] STEFANO@[facility] Primary Infusion Nurse 05/15/24 Jennie Ferreira, BRIELLE [address] [place] [address] ALISON@[facility] Associate Infusion Nurse 10/02/24 documented as of this encounter Additional Source Comments The information contained in this document represents components of the legal health record. It is not the complete legal health record.[facility]
--- OUTSIDE RECORDS SUMMARY | 2024-12-26 20:22 | XMS_ITS | Encounter Summary ---
Author Organization [facility] Address [address] [facility] [address] [place] [address] Phone Care Team Providers Care Breading Machine Tender Name Role Phone Indigo DuSW Unavailable [phone] Grecia Bonilla MD Primary Care Provider Hermelinda Barajas MD Unavailable [phone] Cindi Shell [facility] Unavailable Carlos Alberto King MD, [place] Unavailable Patria Luevano RN Unavailable TOBIAS [email or web address] Jennie Ferreira RN Unavailable ALISON@ [email or web address] Encounter Details Date Type Department Care Team (Late st Contact Info) Description 08/27/2024 Telephone [facility] [place] [facility] Center for Thoracic Oncology, [facility] [address] [place] [address], 9th [place] [address] Patria Mar, RN [address] [place] [address] [email or web address] Social History Tobacco Use Types Packs/Day Years [...] Procedure Pass [facility] 70 [place] [address] 10/23/2024 Procedure Pass [facility] EKG 70 [place] [address] 10/23/2024 Procedure Pass [facility] EKG 70 [place] [address] 11/13/2024 Procedure Pass [address] [address] 11/13/2024 Procedure Pass [address] [address] 12/25/2024 Procedure Pass [address] [address] 01/05/2025 9:25 AM EST Appointment [facility] [address] [address] Hermelinda Barajas MD [address] [place] [address] Pedro@[email or web address] 01/08/2025 1:00 PM EST Telemedicine - audio only [facility], [address], 9th [place] [address] Cindi Shell CNP [address] [place] [address] Benedict east@[facility] Hermelinda Barajas MD [address] [place] [address] Pedro@[facility] 01/11/2025 11:45 AM EST Appointment [place], Ct Scan [address] [address] Hermelinda Barajas MD [address] [place] [address] Pedro@[email or web address] 01/15/2025 7:10 AM EST Blood Draw Laboratory Services, [address], 2nd [place] [address] Cindi Shell WIGS SALESPERSON [address] [place] [address] Benedict east@[facility] 01/15/2025 8:00 AM EST Office Visit [facility], [facility] 450 [facility], 9th [place] [address] Hermelinda Barajas MD [address] [place] [address] 1240 [place] [address] Pedro@[email or web address] 01/15/2025 9:00 AM EST Infusion Infusion Therapy Services [facility]key 9, [address], 9th [place] [address] Cindi Shell CNP 450 [place] [address] Benedict east@[facility] Patria Luevano, BRIELLE [address] [place] [address] [email or web address]@[facility] 01/17/2025 10:00 AM EST Telemedicine [facility] Medical Weight Management 45 [place] [address] Svetlana Lucero, PharmD [address] [place] [address] [email or web address] 01/18/2025 7:35 AM EST Hospital Encounter [facility] EKG 70 [place] [address] Guanakito Gallardo MD 75 [facility] [place] [address] Arrived 01/18/2025 8:30 AM EST Appointment [facility] 70 [place] [address] Odalis Jimenez PA-C 70 [facility] 5th [place] [address] [email or web address] 02/01/2025 8:40 AM EST Office Visit [facility] Otolaryngology 45 [facility] ASB2-2 [place] [address] Demetrio Armstrong MD 45 [place] [phone] [email or web address] 02/14/2025 10:20 AM EST Office Visit [facility] DIABETES MEDICINE 45 [place] [address] Frank Partida MD [address] [place] [address] jose [email or web address] 02/25/2025 9:30 AM EST Telemedicine [facility] Cardiovascular Clinic 70 [place] [address] Guanakito Gallardo MD [address] [place] [address] [place] [address] 07/04/2025 10:00 AM EDT Telemedicine [facility] Cardiovascular Clinic 70 [place] [address] Thiago Bean MD [address] [place] [address] [email or web address] 10/18/2025 7:05 AM EDT Hospital Encounter [facility] EKG 70 [place] [address] Guanakito Gallardo MD [address] [place] [address] [place] [address] Arrived documented as of this encounter Visit Diagnoses Not on filedocumented in this encounter Care Teams Breading Machine Tender Relationship Specialty Start Date End Date Grecia Bonilla MD [address] [place] [address] [place] [address] PCP - General Internal Medicine 10/13/22 Indigo Du, TACK CLEANER [address] [place] [address] [email or web address] Key Bed Installer Oncology 07/27/22 Hermelinda Barajas MD [address] [place] [address] [place] [address] [email or web address]@[email or web address] Medical Oncology 11/29/22 Cindi Shell CNP [address] [place] [address] Fina@[facility] Gerontology 11/29/22 Carlos Alberto King MD, [place] [address] [place] [address] Department of Psychosocial Oncology and Palliative Care, [place] [address] Jaelyn@[facility] Hospice and Palliative Care 04/05/24 Patria Luevano, BRIELLE [address] [place] [address] STEFANO@[facility] Primary Infusion Nurse 05/15/24 Jennie Ferreira RN [address] [place] [address] ALISON@[email or web address] Associate Infusion Nurse 10/02/24 documented as of this encounter Additional Source Comments The information contained in this document represents components of the legal health record. It is not the complete legal health record.[facility]
--- OUTSIDE RECORDS SUMMARY | 2024-12-26 20:23 | XMS_ITS | Clinical Summary ---
Author Organization [facility] Facility Address [address] [address] Care Team Providers Care Product Assembler Name Role Phone Unavailable Primary Care Provider [...] Exam 06/04/2022 Influenza Vaccine (#1) 2024 Insurance [facility] Medicaid [facility] Medicaid
--- OUTSIDE RECORDS SUMMARY | 2024-12-26 20:23 | XMS_ITS | Encounter Summary ---
Author Organization [facility] Address [address] [facility] [address] [place] [address] Phone Care Team Providers Care Capacity Planning Manager Name Role Phone Indigo DuSW Unavailable Grecia Bonilla MD Primary Care Provider Hermelinda Barajas MD Unavailable [phone] Cindi Shell MANAGER SOCIAL Unavailable Zuri Ha RN Unavailable Sandra Ruiz@[email or web address] Carlos Alberto King MD, [place] Unavailable [phone] Patria Luevano RN Unavailable TOBIAS [email or web address] Jennie Ferreira RN Unavailable ALISON@ [facility] Encounter Details Date Type Department Care Team (Late st Contact Info) Description 03/21/2024 Telephone [facility] Cardiovascular Clinic [address] [place] [address] Thiago Bean MD [address] [place], [place] [phone] [email or web address] Social History Tobacco Use Types Packs/Day [...] [facility] [address] [place] [address] 10/23/2024 Procedure Pass [facility] EKG [address] [place] [address] 10/23/2024 Procedure Pass [facility] EKG [address] [place] [address] 11/13/2024 Procedure Pass [address] [address] 11/13/2024 Procedure Pass [address] [address] 12/25/2024 Procedure Pass [address] [address] 01/05/2025 9:25 AM EST Appointment [facility] [place], [facility] - [address] [address] Hermelinda Barajas MD [address] [place] [address] Pedro@[facility] 01/08/2025 1:00 PM EST Telemedicine - audio only [facility], [address], 9th [place] [address] Cindi Shell CNP [address] [place] [address] Benedict east@[facility] Hermelinda Barajas MD [address] [place] [address] Pedro@[facility] 01/11/2025 11:45 AM EST Appointment [facility] [place] [address] [address] Hermelinda Barajas MD [address] [place] [address] Pedro@[facility] 01/15/2025 7:10 AM EST Blood Draw Laboratory Services, [address], 2nd [place] [address] Cindi Shell MANAGER SOCIAL [address] [place] [address] Benedict east@[facility] 01/15/2025 8:00 AM EST Office Visit [facility], [facility] [address] [facility], 9th [place] [address] Hermelinda Barajas MD [address] [place] [address] [place] [address] Pedro@[facility] 01/15/2025 9:00 AM EST Infusion Infusion Therapy Services [facility] 9, [address], 9th [place] [address] Cindi Shell CNP [address] [place] [address] Benedict east@[facility] Patria Luevano, BRIELLE [address] [place] [address] STEFANO@[facility] 01/17/2025 10:00 AM EST Telemedicine [facility] Medical Weight Management [address] [place] [address] Svetlana Lucero, PharmD [address] [place] [address] nilam@[facility] 01/18/2025 7:35 AM EST Hospital Encounter [facility] EKG [address] [place] [address] Guanakito Gallardo MD 75 [facility] [place] [address] Arrived 01/18/2025 8:30 AM EST Appointment [facility] [address] [place] [address] Odalis Jimenez PA-C 70 [facility] 5th [place] [address] [email or web address] 02/01/2025 8:40 AM EST Office Visit [facility] Otolaryngology 45 [facility] ASB2-2 [place] [address] Demetrio Armstrong MD 45 [place] [phone] [email or web address] 02/14/2025 10:20 AM EST Office Visit [facility] DIABETES MEDICINE 45 [place] [address] Frank Partida MD [address] [place] [address] jose [email or web address] 02/25/2025 9:30 AM EST Telemedicine [facility] Cardiovascular Clinic [address] [place] [address] Guanakito Gallardo MD [address] [place] [address] [place] [address] 07/04/2025 10:00 AM EDT Telemedicine [facility]ovascular Clinic [address] [place] [address] Thiago Bean MD [address] [place] [address] [email or web address] 10/18/2025 7:05 AM EDT Hospital Encounter [facility] EKG [address] [place] [address] Guanakito Gallardo MD [address] [place] [address] [place] [address] Arrived documented as of this encounter Visit Diagnoses Not on filedocumented in this encounter Additional Health Concerns Infection Onset Date Last Indicated Resolved Time CoV-Risk 07/17/2024 07/17/2024 07/28/2024 1:21 AM EDT documented as of this encounter Care Teams Capacity Planning Manager Relationship Specialty Start Date End Date Grecia Bonilla MD [address] [place] [address] [place] [address] PCP - General Internal Medicine 10/13/22 Indigo Du, [facility] [address] [place] [address] [email or web address] Post Tronic Machine Operator Oncology 07/27/22 Hermelinda Barajas MD [address] [place] [phone] Pedro@[email or web address] Medical Oncology 11/29/22 Cindi Shell CNP [address] [place] [address] Fina@[email or web address] Gerontology 11/29/22 Zuri Ha RN [address] [place] [address] Milton@[facility] Primary Infusion Nurse 01/10/24 05/14/24 Carlos Alberto King MD, [place] [address] [place] [address] Department of Psychosocial Oncology and Palliative Care, [place] [phone] Jaelyn@[facility] Hospice and Palliative Care 04/05/24 Patria Luevano, BRIELLE [address] [place] [address] STEFANO@[facility] Primary Infusion Nurse 05/15/24 Jennie Ferreira, BRIELLE [address] [place] [address] ALISON@[facility] Associate Infusion Nurse 10/02/24 documented as of this encounter Additional Source Comments The information contained in this document represents components of the legal health record. It is not the complete legal health record.[facility]
--- OUTSIDE RECORDS SUMMARY | 2024-12-26 20:23 | XMS_ITS | Encounter Summary ---
Author Organization [facility] Address [address] [facility] [address] [place] [address] Phone Care Team Providers Care Holter Technician Name Role Phone Indigo Du OUTDOOR ADVERTISING LEASING AGENT Unavailable Grecia Bonilla MD Primary Care Provider Hermelinda Barajas MD Unavailable [phone] Cindi Shell RESIDENT PROGRAM SPECIALIST Unavailable Carlos Alberto King MD, [place] Unavailable [phone] Patria Luevano RN Unavailable TOBIAS HYATT@[facility] Jennie Ferreira RN Unavailable ALISON@ [facility] Reason for Referral * MRI/CAT Scan - Closed Specialty Diagnoses / Procedures Referred By Sarah moser Referred To Contact Radiology Diagnoses Retinal artery occlusion Paroxysmal atrial fibrillation Procedures CT 3D Reconstruction CT Angio Chest CHG 3D RENDERING W/INTERP&POSTPROC DIFF WORK STATION Yeimy Holder PA-C [address] [place] [address] Phone: tel: fax:[phone] mailto:[email or web address] Referral ID Status Reason Start Date Expiration Date Visits Re quested Visits Authorized [id number] Closed 10/17/2024 04/15/2025 1 1 Encounter Details Date Type Department Care Team (Latest Contact Info) Description 10/17/2024 Ancillary Orders [facility] Cardiology [address] [place] [address] Yeimy Holder PA-C [address] [place] [address] [email or web address] Retinal artery occlusion (Primary Dx); Paroxysmal atrial [...] st Contact Info) Description 10/18/2024 Procedure Pass [facility] [address] [place] [address] 10/23/2024 Procedure Pass [facility] EKG [address] [place] [address] 10/23/2024 Procedure Pass [facility] EKG [address] [place] [address] 11/13/2024 Procedure Pass [facility] [address] [address] 11/13/2024 Procedure Pass [address] [address] 12/25/2024 Procedure Pass [address] [address] 01/05/2025 9:25 AM EST Appointment [address] [address] Hermelinda Barajas MD [address] [place] [address] Pedro@[email or web address] 01/08/2025 1:00 PM EST Telemedicine - audio [facility] Center for Thoracic Oncology, [facility] Cancer [address], 9th Floor [address] Cindi Shell CNP [address] [place] [address] Benedict east@[facility] Hermelinda Barajas MD [address] [place] [address] Pedro@[facility] 01/11/2025 11:45 AM EST Appointment [address] [address] Hermelinda Barajas MD [address] [place] [address] Pedro@[facility] 01/15/2025 7:10 AM EST Blood Draw Laboratory Services, [address], 2nd Floor Cindi Shell CNP [address] [place] [address] Benedict east@[facility] 01/15/2025 8:00 AM EST Office Visit [facility] for Thoracic Oncology, [address], 9th [place] [address] Hermelinda Barajas MD [address] [place] [address] Pedro@[facility] 01/15/2025 9:00 AM EST Infusion [facility]fusion [facility] 9, [address], 9th [place] [address] Cindi Shell CNP [address] [place] [address] Benedict east@[facility] Patria Luevano, BRIELLE [address] [place] [address] STEFANO@[facility] 01/17/2025 10:00 AM EST Telemedicine [facility] Medical Weight Management 45 [place] [address] Svetlana Lucero, PharmD 75 [place] [address] [email or web address] 01/18/2025 7:35 AM EST Hospital Encounter [facility] EKG [address] [place] [address] Guanakito Gallardo MD [address] [place] [address] [place] [address] Arrived 01/18/2025 8:30 AM EST Appointment [facility] [address] [place] [address] Odalis Jimenez PA-C 70 [facility] 5th Floor [address] [email or web address] 02/01/2025 8:40 AM EST Office Visit [facility] Otolaryngology [address] [facility] [address] Demetrio Armstrong MD 45 [place] [phone] [email or web address] 02/14/2025 10:20 AM EST Office Visit [facility] DIABETES MEDICINE 45 [place] [address] Frank Partida MD [address] [place] [address] jose [email or web address] 02/25/2025 9:30 AM EST Telemedicine [facility] Cardiovascular Clinic [address] [place] [address] Guanakito Gallardo MD [address] [place] [address] [place] [address] [email or web address] 07/04/2025 10:00 AM EDT Telemedicine [facility] Cardiovascular Clinic [address] [place] [address] Thiago Bean MD [address] [place] [address] [email or web address] 10/18/2025 7:05 AM EDT Hospital Encounter [facility] EKG 70 [place] [address] Guanakito Gallardo MD [address] [place] [address] Cardiology Division [address] [email or web address] Arrived documented as of this encounter Results [...] fibrillation documented in this encounter Care Teams Holter Technician Relationship Specialty Start Date End Date Grecia Bonilla MD [address] [place] [address] [place] [address] PCP - General Internal Medicine 10/13/22 Indigo Du, [facility] 300 [place] [address] [email or web address] Waiter/Waitress Tourist Class Oncology 07/27/22 Hermelinda Barajas MD [address] [place] [address] [place] [address] Pedro@[facility] Medical Oncology 11/29/22 Cindi Shell CNP [address] [place] [address] Fina@[email or web address] Gerontology 11/29/22 Carlos Alberto King MD, [place] [address] [place] [address] Department of Psychosocial Oncology and Palliative Care, [place] [address] Jaelyn@[facility] Hospice and Palliative Care 04/05/24 Patria Luevano, BRIELLE [address] [place] [address] [email or web address]@[facility] Primary Infusion Nurse 05/15/24 Jennie Ferreira, BRIELLE [address] [place] [address] ALISON@[email or web address] Associate Infusion Nurse 10/02/24 documented as of this encounter Additional Source Comments The information contained in this document represents components of the legal health record. It is not the complete legal health record.[facility]
--- OUTSIDE RECORDS SUMMARY | 2024-12-26 20:23 | XMS_ITS | Encounter Summary ---
Author Organization [facility] Address [address] [place] [address] Phone Care Team Providers Care Stoper Name Role Phone Indigo DuSW Unavailable [phone] Grecia Bonilla MD Primary Care Provider Hermelinda Barajas MD Unavailable [phone] Cindi Shell FIBERGLASS MODEL MAKER Unavailable Zuri Ha RN Unavailable Sandra Ruiz@[email or web address] Carlos Alberto King MD, [place] Unavailable Patria Luevano RN Unavailable TOBIAS HYATT@[email or web address] Jennie Ferreira RN Unavailable ALISON@ [facility] Encounter Details Date Type Department Care Team (Late st Contact Info) Description 09/06/2023 Procedure Pass [facility] Echocardiography 70 [place] [address] Social History Tobacco Use Types Packs/Day Years [...] [facility] 70 [place] [address] 10/23/2024 Procedure Pass [facility] EKG 70 [place] [address] 10/23/2024 Procedure Pass [facility] EKG 70 [place] [address] 11/13/2024 Procedure Pass [address] [address] 11/13/2024 Procedure Pass [address] [address] 12/25/2024 Procedure Pass [address] [address] 01/05/2025 9:25 AM EST Appointment [address] [address] Hermelinda Barajas MD [address] [place] [address] Pedro@[facility] 01/08/2025 1:00 PM EST Telemedicine - audio only [facility] Center for Thoracic Oncology, [facility] Cancer [place] [address] [place] [address], 9th [place] [address] Cindi Shell CNP 450 [place] [address] Benedict east@[facility] Hermelinda Barajas MD [address] [address] Pedro@[facility] 01/11/2025 11:45 AM EST Appointment [facility], [address] [address] Hermelinda Barajas MD [address] [address] Pedro@[facility] 01/15/2025 7:10 AM EST Blood Draw Laboratory Services, [address], 2nd [place] [address] Cindi Shell FIBERGLASS MODEL MAKER [address] [place] [address] Benedict east@[facility] 01/15/2025 8:00 AM EST Office Visit [facility] Center for Thoracic Oncology, [address], 9th [place] [address] Hermelinda Barajas MD [address] [place] [address] Pedro@[facility] 01/15/2025 9:00 AM EST Infusion Infusion Therapy Services [facility] 9, [address], 9th [place] [address] Cindi Shell FIBERGLASS MODEL MAKER [address] [place] [address] Vidhijuan [email or web address] [email or web address] Patria Luevano, BRIELLE [address] [place] [address] STEFANO@[facility] 01/17/2025 10:00 AM EST Telemedicine [facility] Medical Weight Management 45 [place] [address] Svetlana Lucero, RigoD 75 [place] [address] [email or web address] 01/18/2025 7:35 AM EST Hospital Encounter [facility] EKG 70 [place] [address] Guanakito Gallardo MD 75 [facility] [place] [address] [email or web address] [facility] 01/18/2025 8:30 AM EST Appointment [facility] 70 [place] [address] Odalis Jimenez PA-C 70 [facility] 5th [place] [address] [email or web address] 02/01/2025 8:40 AM EST Office Visit [facility] Otolaryngology 45 [facility] ASB2-2 [place] [address] Demetrio Armstrong MD 45 [place] [phone] [email or web address] 02/14/2025 10:20 AM EST Office Visit [facility] DIABETES MEDICINE 45 [place] [address] Frank Partida MD 221 [place] [address] jose [email or web address] 02/25/2025 9:[address] [facility] Cardiovascular Clinic [address] [place] [address] Guanakito Gallardo MD [address] [place] [address] 07/04/2025 10:[address] [facility] Cardiovascular Clinic [address] [place] [address] Thiago Bean MD [address] [place] [address] [email or web address] 10/18/2025 7:05 AM EDT Hospital Encounter [facility] EKG 70 [place] [address] Guanakito Gallardo MD [address] [place] [address] Arrived documented as of this encounter Visit Diagnoses Not on filedocumented in this encounter Additional Health Concerns Infection Onset Date Last Indicated Resolved Time CoV-Risk 07/17/2024 07/17/2024 07/28/2024 1:21 AM EDT documented as of this encounter Care Teams Stoper Relationship Specialty Start Date End Date Grecia Bonilla MD [address] [place] [phone] PCP - General Internal Medicine 10/13/22 Indigo Du, [facility] 300 [place] [address] [email or web address] Route Delivery Supervisor Oncology 07/27/22 Hermelinda Barajas MD [facility] Wendy Shen 12[address] [place] [address] Pedro@[facility] Medical Oncology 11/29/22 Cindi Shell, FIBERGLASS MODEL MAKER [address] [place] [address] Fina@[facility] Gerontology 11/29/22 Zuri Ha RN [address] [place] [address] Milton@[email or web address] Primary Infusion Nurse 01/10/24 05/14/24 Carlos Alberto King MD, [place] [address] [place] [address] Department of Psychosocial Oncology and Palliative Care, [place] [phone] Jaelyn@[facility] Hospice and Palliative Care 04/05/24 Patria Luevano RN [address] [place] [address] STEFANO@[facility] Primary Infusion Nurse 05/15/24 Jennie Ferreira RN [address] [place] [address] ALISON@[facility] Associate Infusion Nurse 10/02/24 documented as of this encounter Additional Source Comments The information contained in this document represents components of the legal health record. It is not the complete legal health record.[facility]
--- OUTSIDE RECORDS SUMMARY | 2024-12-26 20:23 | XMS_ITS | Encounter Summary ---
Author Organization [facility] Address [address] [place] [address] Phone Care Team Providers Care Horticulturalist Name Role Phone Indigo DuSW Unavailable Grecia Bonilla MD Primary Care Provider Hermelinda Barajas MD Unavailable [phone] Cindi Shell BAG MACHINE ADJUSTER Unavailable Zuri Ha RN Unavailable Sandra [email or web address] Carlos Alberto King MD, [place] Unavailable [phone] Patria Luevano RN Unavailable TOBIAS [email or web address] Jennie Ferreira RN Unavailable ALISON@ [email or web address] Encounter Details Date Type Department Care Team (Late st Contact Info) Description 03/22/2023 Procedure Pass [facility] [address] [place] [address] Social History Tobacco Use Types Packs/Day Years [...] Description 10/18/2024 Procedure Pass [facility] [address] [place] [address] 10/23/2024 Procedure Pass [facility] EKG [address] [place] [address] 10/23/2024 Procedure Pass [facility] EKG [address] [place] [address] 11/13/2024 Procedure Pass [address] [address] 11/13/2024 Procedure Pass [address] [address] 12/25/2024 Procedure Pass [address] [address] 01/05/2025 9:25 AM EST Appointment [address] [address] Hermelinda Barajas MD [address] [place] [address] 1240 [place] [address] [email or web address] 01/08/2025 1:00 PM EST Telemedicine - audio only [facility], [facility] [place] [address] [place] [address], 9th [place] [address] Cindi Shell CNP [address] [place] [address] Benedict [email or web address]@[facility] Hermelinda Barajas MD [address] [address] Pedro@[facility] 01/11/2025 11:45 AM EST Appointment [facility], [address] [address] Hermelinda Barajas MD [address] [address] Pedro@[facility] 01/15/2025 7:10 AM EST Blood Draw Laboratory Services, [address], 2nd [place] [address] Cindi Shell BAG MACHINE ADJUSTER [address] [place] [address] Benedict east@[facility] 01/15/2025 8:00 AM EST Office Visit [facility], [address], 9th [place] [address] Hermelinda Barajas MD [address] [place] [address] Pedro@[facility] 01/15/2025 9:00 AM EST Infusion Infusion Therapy Services [facility] 9, [address], 9th [place] [address] Cindi Shell BAG MACHINE ADJUSTER [address] [place] [address] [email or web address] Patria Luevano, BRIELLE [address] [place] [address] STEFANO@[facility] 01/17/2025 10:00 AM EST Telemedicine [facility] Medical Weight Management 45 [place] [address] Svetlana Lucero, RigoD [address] [place] [address] [email or web address] 01/18/2025 7:35 AM EST Hospital Encounter [facility] EKG [address] [place] [address] Guanakito Gallardo MD 75 [facility] [place] [address] [email or web address] [facility] 01/18/2025 8:30 AM EST Appointment [facility] [address] [place] [address] Odalis Jimenez PA-C 70 [facility] 5th [place] [address] [email or web address] 02/01/2025 8:40 AM EST Office Visit [facility] Otolaryngology 45 [facility] ASB2-2 [place] [address] Demetrio Armstrong MD 45 [place] [phone] [email or web address] 02/14/2025 10:20 AM EST Office Visit [facility] DIABETES MEDICINE 45 [place] [address] Frank Partida MD 221 [place] [address] jose [email or web address] 02/25/2025 9:30 AM EST Telemedicine [facility] Cardiovascular Clinic 70 [place] [address] Guanakito Gallardo MD [address] [place] [address] [email or web address] 07/04/2025 10:00 AM EDT Telemedicine [facility] [address] [place] [address] Thiago Bean MD [address] [place] [address] [email or web address]@[email or web address] 10/18/2025 7:05 AM EDT Hospital Encounter [facility] EKG [address] [place] [address] Guanakito Gallardo MD [address] [place] [address] [email or web address] Arrived documented as of this encounter Visit Diagnoses Not on filedocumented in this encounter Additional Health Concerns Infection Onset Date Last Indicated Resolved Time COVID-19 04/06/2023 04/06/2023 04/27/2023 1:21 AM EST CoV-Risk 07/17/2024 07/17/2024 07/28/2024 1:21 AM EDT documented as of this encounter Care Teams Horticulturalist Relationship Specialty Start Date End Date Grecia Bonilla MD [address] [place] [address] [place] [phone] PCP - General Internal Medicine 10/13/22 Indigo Du, [facility] [address] [place] [address] [email or web address] Salt Manager Oncology 07/27/22 Hermelinda Barajas MD [address] [place] [address] Mariah Hermelinda 1240 [place] [address] [email or web address] Medical Oncology 11/29/22 Cindi Shell CNP [address] [place] [address] Fina@[facility] Gerontology 11/29/22 Zuri Ha RN [address] [place] [address] Milton@[facility] Primary Infusion Nurse 01/10/24 05/14/24 Carlos Alberto King MD, [place] [address] [place] [address] Department of Psychosocial Oncology and Palliative Care, [place] [address] Jaelyn@[facility] Hospice and Palliative Care 04/05/24 Patria Luevano, BRIELLE [address] [place] [address] [email or web address]@[facility] Primary Infusion Nurse 05/15/24 Jennie Ferreira RN [address] [place] [address] ALISON@[email or web address] Associate Infusion Nurse 10/02/24 documented as of this encounter Additional Source Comments The information contained in this document represents components of the legal health record. It is not the complete legal health record.[facility]
--- OUTSIDE RECORDS SUMMARY | 2024-12-26 20:23 | XMS_ITS | Encounter Summary ---
Author Organization [facility] Address [address] [place] [address] Phone Care Team Providers Care Md Urologist Name Role Phone Indigo Du ROCK WOOL APPLICATOR Unavailable [phone] Grecia Bonilla MD Primary Care Provider Hermelinda Barajas MD Unavailable [phone] Cindi Shell [facility] Unavailable Carlos Alberto King MD, [place] Unavailable Patria Luevano RN Unavailable TOBIAS [email or web address] Jennie Ferreira RN Unavailable ALISON@ [facility] Encounter Details Date Type Department Care Team (Late st Contact Info) Description 07/17/2024 Procedure Pass [facility], [place] Scan - [address] [address] Social History Tobacco Use Types Packs/Day Years [...] Procedure Pass [facility] [address] [place] [address] 10/23/[address] [facility] EKG [address] [place] [address] 10/23/[address] [facility] EKG 70 [place] [address] 11/13/2024 Procedure Pass [address] [address] 11/13/2024 Procedure Pass [address] [address] 12/25/2024 Procedure Pass [address] [address] 01/05/2025 9:25 AM EST Appointment [address] [address] Hermelinda Barajas MD [address] [place] [address] Pedro@[email or web address] 01/08/2025 1:00 PM EST Telemedicine - audio only [facility], [facility] [address] [facility], 9th [place] [address] Cindi Shell CNP [address] [place] [address] Benedict [email or web address]@[email or web address] Hermelinda Barajas MD [address] [place] [address] Pedro@[facility] 01/11/2025 11:45 AM EST Appointment [facility], [place] Scan [address] [address] Hermelinda Barajas MD [address] [place] [address] [place] [address] Pedro@[facility] 01/15/2025 7:10 AM EST Blood Draw Laboratory Services, [address], 2nd [place] [address] Cindi Shell CNP [address] [place] [address] Benedict east@[facility] 01/15/2025 8:00 AM EST Office Visit [facility], [facility] [address] [facility], 9th [place] [address] Hermelinda Barajas MD [address] [place] [address] Pedro@[facility] 01/15/2025 9:00 AM EST Infusion Infusion Therapy Services [facility] 9, [facility] Cancer [address], 9th [place] [address] Cindi Shell CNP [address] [place] [address] Benedict [email or web address]@[facility] Patria Luevano, BRIELLE [address] [place] [address] [email or web address]@[facility] 01/17/2025 10:[address] [facility] Medical Weight Management [address] [place] [address] Svetlana Lucero, RigoD 75 [place] [address] [email or web address] 01/18/2025 7:35 AM EST Hospital Encounter [facility] EKG 70 [place] [address] Guanakito Gallardo MD 75 [facility] [place] [address] [email or web address] [facility] 01/18/2025 8:30 AM EST Appointment [facility] [address] [place] [address] Odalis Jimenez PA-C 70 [facility] 5th [place] [address] [email or web address] 02/01/2025 8:40 AM EST Office [address] [facility] Otolaryngology 45 [facility] ASB2-2 [place] [address] Demetrio Armstrong MD 45 [place] [phone] [email or web address] 02/14/2025 10:20 AM EST Office Visit [facility] DIABETES MEDICINE 45 [place] [address] Frank Partida MD 221 [place] [address] jose [email or web address]@[email or web address] 02/25/2025 9:30 AM EST Telemedicine [facility] Cardiovascular Clinic 70 [place] [address] Guanakito Gallardo MD [address] [place] [address] [email or web address] 07/04/2025 10:00 AM EDT Telemedicine [facility] Cardiovascular Clinic 70 [place] [address] Thiago Bean MD [address] [place] [address] [email or web address]@[facility] 10/18/2025 7:05 AM EDT Hospital Encounter [facility] EKG 70 [place] [address] Guanakito Gallardo MD [address] [place] [address] Arrived documented as of this encounter Visit Diagnoses Not on filedocumented in this encounter Additional Health Concerns Infection Onset Date Last Indicated Resolved Time CoV-Risk 07/17/2024 07/17/2024 07/28/2024 1:21 AM EDT documented as of this encounter Care Teams Md Urologist Relationship Specialty Start Date End Date Grecia Bonilla MD [address] [place] [address] [place] [address] PCP - General Internal Medicine 10/13/22 Indigo Du, [facility] 300 [place] [address] [email or web address] Representative Oncology 07/27/22 Hermelinda Barajas MD [address] [place] [address] 1240 [place] [address] Pedro@[facility] Medical Oncology 11/29/22 Cindi Shell CNP [address] [place] [address] Fina@[facility] Gerontology 11/29/22 Carlos Alberto King MD, [place] [address] [place] [address] Department of Psychosocial Oncology and Palliative Care, [place] [phone] Jaelyn@[facility] Hospice and Palliative Care 04/05/24 Patria Luevano RN [address] [place] [address] [email or web address]@[facility] Primary Infusion Nurse 05/15/24 Jennie Ferreira RN [address] [place] [address] ALISON@[email or web address] Associate Infusion Nurse 10/02/24 documented as of this encounter Additional Source Comments The information contained in this document represents components of the legal health record. It is not the complete legal health record.[facility]
--- OUTSIDE RECORDS SUMMARY | 2024-12-26 20:23 | XMS_ITS | Encounter Summary ---
Author Organization [facility] Address [address] [place] [address] Phone Care Team Providers Care Rubbish Collector Name Role Phone Aubrey Taylor MD Primary Care Provider [phone] [facility] Unavailable [phone] Jn Cline DO Primary Care Provider Aubrey Taylor MD Primary Care Provider [phone] Marilynn Daly NP Primary Care Provider Unavailab Grecia Rosado MD Primary Care Provider Hermelinda Barajas MD Unavailable [phone] Cindi Shell DIETETICS TEACHER Unavailable Zuri Ha RN Unavailable Sandra Ruiz@[email or web address] Carlos Alberto King MD, [place] Unavailable [phone] Patria Luevano RN Unavailable TOBIAS [email or web address] Jennie Ferreira RN Unavailable ALISON@ [email or web address] Encounter Details Date Type Department Care Team (Late st Contact Info) Description 06/25/2022 Procedure Pass [facility] 70 [place] [address] Social History Tobacco Use Types Packs/Day Years [...] Procedure Pass [facility] [address] [place] [address] 10/23/2024 Procedure Pass [facility] EKG 70 [place] [address] 10/23/2024 Procedure Pass [facility] EKG 70 [place] [address] 11/13/2024 Procedure Pass [address] [address] 11/13/2024 Procedure Pass [address] [address] 12/25/2024 Procedure Pass [address] [address] 01/05/2025 9:25 AM EST Appointment [address] [address] Hermelinda Barajas MD 450 [facility] 1240 [place] [address] Pedro@[email or web address] 01/08/2025 1:00 PM EST Telemedicine - audio only [facility], [facility] [place] 450 [facility], 9th [place] [address] Cindi Shell, DIETETICS TEACHER 450 [place] [address] Benedict east@[facility] Hermelinda Barajas MD [address] [address] Pedro@[facility] 01/11/2025 11:45 AM EST Appointment [facility], [address] [address] Hermelinda Barajas MD [address] [place] [address] Pedro@[facility] 01/15/2025 7:10 AM EST Blood Draw Laboratory Services, [address], 2nd [place] [address] Cindi Shell DIETETICS TEACHER 450 [place] [address] Benedict east@[facility] 01/15/2025 8:00 AM EST Office Visit [facility] Center for Thoracic Oncology, [address], 9th [place] [address] Hermelinda Barajas MD [address] [place] [address] Pedro@[facility] 01/15/2025 9:00 AM EST Infusion Infusion Therapy Services [facility] 9, [address], 9th [place] [address] Cindi Shell CNP [address] [place] [address] Benedict east@[facility] Patria Luevano, RN 450 [place] [address] STEFANO@[facility] .[facility] 01/17/2025 10:00 AM EST Telemedicine [facility] Medical Weight Management 45 [place] [address] Svetlana Lucero, RigoD 75 [place] [address] [email or web address] 01/18/2025 7:35 AM EST Hospital Encounter [facility] EKG 70 [place] [address] Guanakito Gallardo MD [address] [facility] Cardiology [place] [address] [email or web address] [facility] 01/18/2025 8:30 AM EST Appointment [facility] 70 [place] [address] Odalis Jimenez PA-C 70 [facility] 5th [place] [address] [email or web address] 02/01/2025 8:40 AM EST Office Visit [facility] Otolaryngology 45 [facility] ASB2-2 [place] [address] Demetrio Armstrong MD 45 [place] [phone] [email or web address] 02/14/2025 10:20 AM EST Office Visit [facility] DIABETES MEDICINE 45 [place] [address] Frank Partida MD [address] [place] [address] @[facility] 02/25/2025 9:30 AM EST Telemedicine [facility] Cardiovascular Clinic 70 [place] [address] Guanakito Gallardo MD [address] [place] [address] 07/04/2025 10:00 AM EDT Telemedicine [facility] Cardiovascular Clinic [address] [place] [address] Thiago Bean MD [address] [place] [address] [email or web address] 10/18/2025 7:05 AM EDT Hospital Encounter [facility] EKG 70 [place] [address] Guanakito Gallardo MD [address] [place] [address] [email or web address] Arrived documented as of this encounter Visit Diagnoses Not on filedocumented in this encounter Additional Health Concerns Infection Onset Date Last Indicated Resolved Time COVID-19 04/06/2023 04/06/2023 04/27/2023 1:21 AM EST CoV-Risk 07/17/2024 07/17/2024 07/28/2024 1:21 AM EDT documented as of this encounter Care Teams Rubbish Collector Relationship Specialty Start Date End Date Aubrey Taylor MD [address] [place] [address] PCP - General Internal Medicine 05/28/22 08/03/22 Jn Cline DO [address] [place] [address] [email or web address] [employer] PCP - General Hospitalist 08/04/22 08/12/22 Aubrey Taylor MD [address] [place] [address] PCP - General Internal Medicine 08/13/22 09/14/22 Marilynn Daly TISSUE RECOVERY TECHNICIAN PCP - General Nurse Practitioner 09/15/22 10/12/22 Grecia Bonilla MD [address] [place] [address] [place] [address] PCP - General Internal Medicine 10/13/[address] [address] [email or web address] Table Filler Oncology 07/27/22 Hermelinda Barajas MD [address] [place] [address] Pedro@[facility] Medical Oncology 11/29/22 Cindi Shell CNP [address] [place] [address] Fina@[email or web address] Gerontology 11/29/22 Zuri Ha, BRIELLE [address] [place] [address] Milton@[facility] Primary Infusion Nurse 01/10/24 05/14/24 Carlos Alberto King MD, [place] [address] [place] [address] Department of Psychosocial Oncology and Palliative Care, [place] [address] [email or web address] Hosp[facility] and [facility] 04/05/24 Patria Luevano, RN 450 [place] [address] STEFANO@[facility] Primary Infusion Nurse 05/15/24 Jennie Ferreira, BRIELLE [address] [place] [address] ALISON@[facility] Associate Infusion Nurse 10/02/24 documented as of this encounter Additional Source Comments The information contained in this document represents components of the legal health record. It is not the complete legal health record.[facility]
--- OUTSIDE RECORDS SUMMARY | 2024-12-26 20:23 | XMS_ITS | Encounter Summary ---
Author Organization [facility] Address [address] [place] [address] Phone Care Team Providers Care Net Wpf Developer Name Role Phone Indigo DuSW Unavailable [phone] Grecia Bonilla MD Primary Care Provider Hermelinda Barajas MD Unavailable [phone] Cindi Shell SYSTEM ADMINISTRATOR Unavailable Zuri Ha RN Unavailable Sandra Ruiz@[email or web address] Carlos Alberto Knig MD, [place] Unavailable [phone] Patria Luevano RN Unavailable TOBIAS HYATT@[email or web address] Jennie Ferreira RN Unavailable ALISON@ [facility] Encounter Details Date Type Department Care Team (Late st Contact Info) Description 10/06/2023 Procedure Pass [facility] Endoscopy Department [address] [place] [address] Social History Tobacco Use Types Packs/Day Years [...] [facility] [address] [place] [address] 10/23/2024 Procedure Pass [facility] EKG [address] [place] [address] 10/23/2024 Procedure Pass [facility] EKG [address] [place] [address] 11/13/2024 Procedure Pass [address] [address] 11/13/2024 Procedure Pass [address] [address] 12/25/2024 Procedure Pass [address] [address] 01/05/2025 9:25 AM EST Appointment [address] [address] Hermelinda Barajas MD [address] [place] [address] 1240 [place] [address] [email or web address] 01/08/2025 1:00 PM EST Telemedicine - audio only [facility] Center for Thoracic Oncology, [facility] [place] [address] [place] [address], 9th [place] [address] Cindi Shell CNP [address] [place] [address] Benedict east@[facility] Hermelinda Barajas MD [address] [place] [address] Pedro@[facility] 01/11/2025 11:45 AM EST Appointment [facility], [address] [address] Hermelinda Barajas MD [address] [address] Pedro@[facility] 01/15/2025 7:10 AM EST Blood Draw Laboratory Services, [address], 2nd [place] [address] Cindi Shell SYSTEM ADMINISTRATOR [address] [place] [address] Benedict east@[facility] 01/15/2025 8:00 AM EST Office Visit [facility] Center for Thoracic Oncology, [address], 9th [place] [address] Hermelinda Barajas MD [address] [place] [address] Pedro@[facility] 01/15/2025 9:00 AM EST Infusion Infusion Therapy Services Yawkey 9, [address], 9th [place] [address] Cindi Shell SYSTEM ADMINISTRATOR [address] [place] [address] Demiophelia [email or web address] Patria Luevano, BRIELLE [address] [place] [address] STEFANO@[facility] 01/17/2025 10:00 AM EST Telemedicine [facility] Medical Weight Management [address] [place] [address] Svetlana Lucero, RigoD 75 [place] [address] nilam@[facility] 01/18/2025 7:35 AM EST Hospital Encounter [facility] EKG [address] [place] [address] Guanakito Gallardo MD 75 [facility] [place] [address] [email or web address] 01/18/2025 8:30 AM EST Appointment [facility] [address] [place] [address] Odalis Jimenez PA-C 70 [facility] 5th [place] [address] [email or web address] 02/01/2025 8:40 AM EST Office Visit [facility] Otolaryngology 45 [facility] ASB2-2 [place] [address] Demetrio Armstrong MD 45 [place] [phone] [email or web address] 02/14/2025 10:20 AM EST Office Visit [facility] DIABETES MEDICINE [address] [place] [address] Frank Partida MD 221 [place] [address] jose [email or web address] 02/25/2025 9:30 AM EST Telemedicine [facility] [address] [place] [address] Guanakito Gallardo MD [address] [place] [address] [email or web address] 07/04/2025 10:00 AM EDT Telemedicine [facility] Clinic [address] [place] [address] Thiago Bean MD [address] [place] [address] [email or web address] 10/18/2025 7:05 AM EDT Hospital Encounter [facility] EKG [address] [place] [address] Guanakito Gallardo MD [address] [place] [address] Arrived documented as of this encounter Visit Diagnoses Not on filedocumented in this encounter Additional Health Concerns Infection Onset Date Last Indicated Resolved Time CoV-Risk 07/17/2024 07/17/2024 07/28/2024 1:21 AM EDT documented as of this encounter Care Teams Net Wpf Developer Relationship Specialty Start Date End Date Grecia Bonilla MD [address] [place] [phone] PCP - General Internal Medicine 10/13/22 Indigo Du, [facility] [address] [place] [address] [email or web address] C S S Representative Oncology 07/27/[address] [facility] Wendy Shen 1240 [place] [address] Pedro@[facility] Medical Oncology 11/29/22 Cindi Shell CNP [address] [place] [address] Fina@[facility] Gerontology 11/29/22 Zuri Ha RN [address] [place] [address] Milton@[facility] Primary Infusion Nurse 01/10/24 05/14/24 Carlos Alberto King MD, [place] [address] [place] [address] Department of Psychosocial Oncology and Palliative Care, [place] [address] Jaelyn@[facility] Hospice and Palliative Care 04/05/24 Patria Luevano, BRIELLE [address] [place] [address] STEFANO@[facility] Primary Infusion Nurse 05/15/24 Jennie Ferriera, BRIELLE [address] [place] [address] ALISON@[facility] Associate Infusion Nurse 10/02/24 documented as of this encounter Additional Source Comments The information contained in this document represents components of the legal health record. It is not the complete legal health record.[facility]
--- OUTSIDE RECORDS SUMMARY | 2024-12-26 20:23 | XMS_ITS | Encounter Summary ---
Author Organization [facility] Address [address] [place] [address] Phone Care Team Providers Care Worship Pastor Name Role Phone Indigo Du [employer] Unavailable Grecia Bonilla MD Primary Care Provider Hermelinda Barajas MD Unavailable [phone] Cindi Shell [facility] Unavailable [phone] Carlos Alberto [place], [place] Unavailable Patria Luevano RN Unavailable TOBIAS [email or web address] Jennie Ferreira RN Unavailable ALISON@ [facility] Encounter Details Date Type Department Care Team (Late st Contact Info) Description 05/15/2024 Procedure Pass [facility], [address] [address] Social History Tobacco Use Types Packs/Day Years [...] Procedure Pass [facility] [address] [place] [address] 10/23/2024 Procedure Pass [facility] EKG [address] [place] [address] 10/23/2024 Procedure Pass [facility] EKG 70 [place] [address] 11/13/2024 Procedure Pass [address] [address] 11/13/2024 Procedure Pass [address] [address] 12/25/2024 Procedure Pass [address] [address] 01/05/2025 9:25 AM EST Appointment [address] [address] Hermelinda Barajas MD [address] [place] [address] Pedro@[facility] 01/08/2025 1:00 PM EST Telemedicine - audio only [facility] Center for Thoracic Oncology, [facility] 450 [facility], 9th [place] [address] Cindi Shell CNP 450 [place] [address] Benedict east@[facility] Hermelinda Barajas MD [address] [place] [address] Pedro@[facility] 01/11/2025 11:45 AM EST Appointment [facility], Ct Scan - [address] [address] Hermelinda Barajas MD [address] [place] [address] Pedro@[facility] 01/15/2025 7:10 AM EST Blood Draw Laboratory Services, [address], 2nd [place] [address] Cindi Shell CNP [address] [place] [address] Benedict east@[facility] 01/15/2025 8:00 AM EST Office Visit [facility] for Thoracic Oncology, [address], 9th [place] [address] Hermelinda Barajas MD [address] [place] [address] Pedro@[facility] 01/15/2025 9:00 AM EST Infusion Infusion Therapy Services Sowmya 9, [facility] Cancer [address], 9th [place] [address] Cindi Shell CNP 450 [place] [address] Benedict east@[facility] Patria Luevano, BRIELLE [address] [place] [address] STEFANO@[facility] 01/17/2025 10:00 AM EST Telemedicine [facility] Medical Weight Management [address] [place] [address] Svetlana Lucero, RigoD 75 [place] [address] [email or web address] 01/18/2025 7:35 AM EST Hospital Encounter [facility] EKG 70 [place] [address] Guanakito Gallardo MD 75 [facility] [place] [address] [email or web address] [facility] 01/18/2025 8:30 AM EST Appointment [facility] 70 [place] [address] Odalis Jimenez PA-C 70 [facility] 5th [place] [address] [email or web address] 02/01/2025 8:40 AM EST Office Visit [facility] Otolaryngology 45 [facility] ASB2-2 [place] [address] Demetrio Armstrong MD 45 [place] [phone] [email or web address] 02/14/2025 10:20 AM EST Office Visit [facility] DIABETES MEDICINE 45 [place] [address] Frank Partida MD 221 [place] [address] jose [email or web address]@[facility] 02/25/2025 9:30 AM EST Telemedicine [facility] Cardiovascular Clinic [address] [place] [address] Guanakito Gallardo MD [address] [place] [address] [email or web address] [email or web address] 07/04/2025 10:00 AM EDT Telemedicine [facility] Cardiovascular Clinic [address] [place] [address] Thiago Bean MD [address] [place] [address] [email or web address]@[facility] 10/18/2025 7:05 AM EDT Hospital Encounter [facility] EKG [address] [place] [address] Guanakito Gallardo MD [address] [place] [address] Arrived documented as of this encounter Visit Diagnoses Not on filedocumented in this encounter Additional Health Concerns Infection Onset Date Last Indicated Resolved Time CoV-Risk 07/17/2024 07/17/2024 07/28/2024 1:21 AM EDT documented as of this encounter Care Teams Worship Pastor Relationship Specialty Start Date End Date Grecia Bonilla MD [address] [place] [address] [place] [phone] PCP - General Internal Medicine 10/13/22 Indigo Du, [facility] 300 [place] [address] [email or web address] Employment Counselor Oncology 07/27/22 Hermelinda Barajas MD [address] [place] [address] 1240 [place] [address] Pedro@[facility] Medical Oncology 11/29/22 Cindi Shell CNP [address] [place] [address] Fina@[facility] Gerontology 11/29/22 Carlos Alberto King [place], [place] [address] [place] [address] Department of Psychosocial Oncology and Palliative Care, [place] [phone] Jaelyn@[facility] Hospice and Palliative Care 04/05/24 Patria Luevano, BRIELLE [address] [place] [address] STEFANO@[facility] Primary Infusion Nurse 05/15/24 Jennie Ferreira RN [address] [place] [address] ALISON@[email or web address] Associate Infusion Nurse 10/02/24 documented as of this encounter Additional Source Comments The information contained in this document represents components of the legal health record. It is not the complete legal health record.[facility]
--- OUTSIDE RECORDS SUMMARY | 2024-12-26 20:23 | XMS_ITS | Encounter Summary ---
Author Organization [facility] Address [address] [place] [address] Phone Care Team Providers Care Interpreter Deaf Name Role Phone Indigo DuSW Unavailable [phone] Grecai Bonilla MD Primary Care Provider Hermelinda Barajas MD Unavailable [phone] Cindi Shell BUSINESS COMPUTERS TEACHER Unavailable [phone] Zuri Ha RN Unavailable Sandra Ruiz@[facility] Carlos Alberto [place] MD, [place] Unavailable [phone] Patria Luevano RN Unavailable TOBIAS HYATT@[facility].[place] Jennie Ferreira RN Unavailable ALISON@ [facility].[place] Encounter Details Date Type Department Care Team (Late st Contact Info) Description 01/10/2024 Procedure Pass [facility], Ct Scan - [facility] [address] [place] [address] Social History Tobacco Use Types Packs/Day Years [...] Description 10/18/2024 Procedure Pass [facility] 70 [place] [address] 10/23/2024 Procedure Pass [facility] EKG [address] [place] [address] 10/23/2024 Procedure Pass [facility] EKG [address] [place] [address] 11/13/2024 Procedure Pass [address] [address] 11/13/2024 Procedure Pass [address] [address] 12/25/2024 Procedure Pass [address] [address] 01/05/2025 9:25 AM EST Appointment [address] [address] Hermelinda Barajas MD [address] [place] [address] 1240 [place] [address] Pedro@[facility] 01/08/2025 1:00 PM EST Telemedicine - audio only [facility] Center for Thoracic Oncology, [facility] Cancer [place] [address] [place] [address], 9th [place] [address] Cindi Shell CNP 450 [place] [address] Benedict east@[facility] Hermelinda Barajas MD 450 [facility] 1240 [place] [address] Pedro@[facility] 01/11/2025 11:45 AM EST Appointment [facility], La Scan [facility] [place] 30 [place] [address] Hermelinda Barajas MD 450 [facility] 1240 [place] [address] Pedro@[facility] 01/15/2025 7:10 AM EST Blood Draw Laboratory Services, [address], 2nd [place] [address] Cindi Shell BUSINESS COMPUTERS TEACHER [address] [place] [address] Benedict east@[facility] 01/15/2025 8:00 AM EST Office Visit [facility] Center for Thoracic Oncology, [address], 9th [place] [address] Hermelinda Barajas MD [address] [place] [address] 1240 [place] [address] Pedro@[facility] 01/15/2025 9:00 AM EST Infusion Infusion Therapy Services Yawkey 9, [address], 9th [place] [address] Cindi Shell BUSINESS COMPUTERS TEACHER [address] [place] [address] Benedict east@[facility] Patria Luevano, BRIELLE [address] [place] [address] STEFANO@[facility] 01/17/2025 10:00 AM EST Telemedicine [facility] Medical Weight Management 45 [place] [address] Svetlana Lucero, RigoD 75 [place] [address] nilam@[facility] 01/18/2025 7:35 AM EST Hospital Encounter [facility] EKG [address] [place] [address] Guanakito Gallardo MD 75 [facility] [place] [address] [facility] 01/18/2025 8:30 AM EST Appointment [facility] [address] [place] [address] Odalis Jimenez PA-C 70 [facility] 5th [place] [address] [email or web address] 02/01/2025 8:40 AM EST Office Visit [facility] Otolaryngology 45 [facility] ASB2-2 [place] [address] Demetrio Armstrong MD 45 [place] [address] [email or web address] 02/14/2025 10:20 AM EST Office Visit [facility] DIABETES MEDICINE 45 [place] [address] Frank Partida MD 221 [place] [address] jose [email or web address] 02/25/2025 9:30 AM EST Telemedicine [facility] Cardiovascular Clinic [address] [place] [address] Guanakito Gallardo MD [address] [place] [address] 07/04/2025 10:00 AM EDT Telemedicine [facility] Cardiovascular Clinic [address] [place] [address] Thiago Bean MD [address] [place] [address] laurita@[facility] 10/18/2025 7:05 AM EDT Hospital Encounter [facility] EKG [address] [place] [address] Guanakito Gallardo MD [address] [place] [address] Arrived documented as of this encounter Visit Diagnoses Not on filedocumented in this encounter Additional Health Concerns Infection Onset Date Last Indicated Resolved Time CoV-Risk 07/17/2024 07/17/2024 07/28/2024 1:21 AM EDT documented as of this encounter Care Teams Interpreter Deaf Relationship Specialty Start Date End Date Grecia Bonilla MD [address] [place] [address] [place] [address] PCP - General Internal Medicine 10/13/22 Indigo Du, FLAG MAKER [address] [place] [address] [email or web address] Coal Mine Inspector Oncology 07/27/22 Hermelinda Barajas MD [facility] Wendy Shen 1240 [place] [address] Pedro@[facility] Medical Oncology 11/29/22 Cindi Shell CNP [address] [place] [address] Fina@[facility] Gerontology 11/29/22 Zuri Ha RN [address] [place] [address] Milton@[facility] Primary Infusion Nurse 01/10/24 05/14/24 Carlos Alberto King MD, [place] [address] [place] [address] Department of Psychosocial Oncology and Palliative Care, [place] [address] Jaelyn@[facility] Hospice and Palliative Care 04/05/24 Patria Luevano, BRIELLE [address] [place] [address] STEFANO@[facility] Primary Infusion Nurse 05/15/24 Jennie Ferreira, BRIELLE [address] [place] [address] ALISON@[facility] Associate Infusion Nurse 10/02/24 documented as of this encounter Additional Source Comments The information contained in this document represents components of the legal health record. It is not the complete legal health record.[facility]
--- OUTSIDE RECORDS SUMMARY | 2024-12-26 20:23 | XMS_ITS | Encounter Summary ---
Author Organization [facility] Address [address] [place] [address] Phone Care Team Providers Care Livestock Producer Name Role Phone Indigo DuSW Unavailable [phone] Grecia Bonilla MD Primary Care Provider Hermelinda Barajas MD Unavailable [phone] Cindi Shell VP OF CUSTOMER EXPERIENCE STRATEGY Unavailable Zuri Ha RN Unavailable Sandra Ruiz@[email or web address] CarlosA lberto [place], [place] Unavailable Patria Luevano RN Unavailable TOBIAS HYATT@[email or web address].[facility] Jennie Ferreira RN Unavailable ALISON@ [facility] Encounter Details Date Type Department Care Team (Late st Contact Info) Description 09/06/2023 Procedure Pass [facility] Imaging Department, [facility] [place] 450 [facility], Floor L1 [place] [address] Social History Tobacco Use Types Packs/Day Years [...] Contact Info) Description 10/18/2024 Procedure Pass [facility] Women[facility] Radiology [address] [place] [address] 10/23/2024 Procedure Pass [facility] EKG [address] [place] [address] 10/23/2024 Procedure Pass [facility] EKG 70 [place] [address] 11/13/2024 Procedure Pass [address] [address] 11/13/2024 Procedure Pass [address] [address] 12/25/2024 Procedure Pass [address] [address] 01/05/2025 9:25 AM EST Appointment [address] [address] Hermelinda Barajas MD [address] [place] [address] [email or web address] 01/08/2025 1:00 PM EST Telemedicine - audio only [facility], [facility] Cancer [address], 9th [place] [address] Cindi Shell VP OF CUSTOMER EXPERIENCE STRATEGY 450 [place] [address] [place] east@[facility] Hermelinda Barajas MD [address] [address] Pedro@[facility] 01/11/2025 11:45 AM EST Appointment [facility], [address] [address] Hermelinda Barajas MD [address] [place] [address] Pedro@[facility] 01/15/2025 7:10 AM EST Blood Draw Laboratory Services, [address], 2nd [place] [address] Cindi Shell CNP [address] [place] [address] Benedict east@[facility] 01/15/2025 8:00 AM EST Office Visit [facility], [address], 9th [place] [address] Hermelinda Barajas MD [address] [place] [address] Pedro@[facility] 01/15/2025 9:00 AM EST Infusion Infusion Therapy Services [facility] 9, [address], 9th [place] [address] Cindi Shell VP OF CUSTOMER EXPERIENCE STRATEGY [address] [place] [address] [place] [address] Benedict [email or web address] Patria Luevano, BRIELLE [address] [place] [address] STEFANO@[facility] .[facility] 01/17/2025 10:00 AM EST Telemedicine [facility] Medical Weight Management 45 [place] [address] Svetlana Lucero, RigoD 75 [place] [address] nilam@[email or web address] 01/18/2025 7:35 AM EST Hospital Encounter [facility] EKG [address] [place] [address] Guanakito Gallardo MD 75 [facility] [place] [address] [facility] 01/18/2025 8:30 AM EST Appointment [facility] Women[facility] Radiology [address] [place] [address] Odalis Jimenez PA-C 70 [facility] 5th [place] [address] [email or web address] 02/01/2025 8:40 AM EST Office Visit [facility] Otolaryngology 45 [facility] ASB2-2 [place] [address] Demetrio Armstrong MD 45 [place] [phone] [email or web address] 02/14/2025 10:20 AM EST Office Visit [facility] DIABETES MEDICINE 45 [place] [address] Frank Partida MD 221 [place] [address] jose [email or web address]@[email or web address] 02/25/2025 9:30 AM EST Telemedicine [facility] 70 [place] [address] Guanakito Gallardo MD [address] [place] [address] 07/04/2025 10:00 AM EDT Telemedicine [facility] 70 [place] [address] Thiago Bean MD [address] [place] [address] [email or web address] 10/18/2025 7:05 AM EDT Hospital Encounter [facility] EKG [address] [place] [address] Guanakito Gallardo MD [address] [place] [address] [email or web address] Arrived documented as of this encounter Visit Diagnoses Not on filedocumented in this encounter Additional Health Concerns Infection Onset Date Last Indicated Resolved Time CoV-Risk 07/17/2024 07/17/2024 07/28/2024 1:21 AM EDT documented as of this encounter Care Teams Livestock Producer Relationship Specialty Start Date End Date Grecia Bonilla MD [address] [place] [address] [place] [address] PCP - General Internal Medicine 10/13/22 Indigo Du, [facility] 300 [place] [address] [email or web address] Quality Control Lab Tech Oncology 07/27/22 Hermelinda Barajas MD 450 [address]40 [place] [address] Pedro@[facility] Medical Oncology 11/29/22 Cindi Shell CNP [address] [place] [address] Fina@[email or web address] Gerontology 11/29/22 Zuri Ha RN [address] [place] [address] [place]@[facility] Primary Infusion Nurse 01/10/24 05/14/24 Carlos Alberto [place], [place] [address] [place] [address] Department of Psychosocial Oncology and Palliative Care, [place] [address] Jaelyn@[facility] Hospice and Palliative Care 04/05/24 Patria Luevano, BRIELLE [address] [place] [address] STEFANO@[facility] Primary Infusion Nurse 05/15/24 Jennie Ferreira RN [address] [place] [address] ALISON@[email or web address] Associate Infusion Nurse 10/02/24 documented as of this encounter Additional Source Comments The information contained in this document represents components of the legal health record. It is not the complete legal health record.[facility]
--- OUTSIDE RECORDS SUMMARY | 2024-12-26 20:23 | XMS_ITS | Encounter Summary ---
Author Organization [facility] Address [address] [place] [address] Phone Care Team Providers Care Data Processing Manager Name Role Phone Indigo DuSW Unavailable Grecia Bonilla MD Primary Care Provider Hermelinda Barajas MD Unavailable [phone] Cindi Shell WASTEWATER TREATMENT ENGINEER Unavailable [phone] Zuri Ha RN Unavailable Sandra Ruiz@[email or web address] Carlos Alberto [place], [place] Unavailable Patria Luevano RN Unavailable TOBIAS [email or web address] Jennie Ferreira RN Unavailable ALISON@ [facility] Encounter Details Date Type Department Care Team (Late st Contact Info) Description 03/22/2023 Procedure Pass [facility] Women[facility] [address] [place] [address] Social History Tobacco Use Types Packs/Day Years [...] [facility] 70 [place] [address] 10/23/2024 Procedure Pass [facility] EKG 70 [place] [address] 10/23/2024 Procedure Pass [facility] EKG 70 [place] [address] 11/13/2024 Procedure Pass [address] [address] 11/13/2024 Procedure Pass [address] [address] 12/25/2024 Procedure Pass [address] [address] 01/05/2025 9:25 AM EST Appointment [address] [address] Hermelinda Barajas MD [address] [place] [address] 1240 [place] [address] [email or web address] 01/08/2025 1:00 PM EST Telemedicine - audio only [facility], [facility] Cancer [place] [address] [place] [address], 9th [place] [address] Cindi Shell CNP [address] [place] [address] Benedict east@[facility] Hermelinda Barajas MD [address] [address] Pedro@[facility] 01/11/2025 11:45 AM EST Appointment [facility], [address] [address] Hermelinda Barajas MD [address] [address] Pedro@[facility] 01/15/2025 7:10 AM EST Blood Draw Laboratory Services, [address], 2nd [place] [address] Cindi Shell WASTEWATER TREATMENT ENGINEER [address] [place] [address] [place] east@[facility] 01/15/2025 8:00 AM EST Office Visit [facility], [address], 9th [place] [address] Hermelinda Barajas MD [address] [place] [address] Pedro@[facility] 01/15/2025 9:00 AM EST Infusion Infusion Therapy Services [facility] 9, [address], 9th [place] [address] Cindi Shell WASTEWATER TREATMENT ENGINEER [address] [place] [address] JenitheresaWalter [email or web address] Patria Luevano, BRIELLE [address] [place] [address] STEFANO@[facility] 01/17/2025 10:00 AM EST Telemedicine [facility] Medical Weight Management 45 [place] [address] Svetlana Lucero, RigoD 75 [place] [address] nilam@[email or web address] 01/18/2025 7:35 AM EST Hospital Encounter [facility] EKG 70 [place] [address] Guanakito Gallardo MD 75 [facility] [place] [address] [email or web address] [facility] 01/18/2025 8:30 AM EST Appointment [facility] Women[facility] Radiology 70 [place] [address] Odalis Jimenez PA-C 70 [facility] 5th [place] [address] [email or web address] 02/01/2025 8:40 AM EST Office Visit [facility] Otolaryngology 45 [facility] ASB2-2 [place] [address] Demetrio Armstrong MD 45 [place] [address] [email or web address] 02/14/2025 10:20 AM EST Office Visit [facility] DIABETES MEDICINE 45 [place] [address] Frank Partida MD 221 [place] [address] jose [email or web address]@[email or web address] 02/25/2025 9:30 AM EST Telemedicine [facility] Cardiovascular Clinic 70 [place] [address] Guanakito Gallardo MD [address] [place] [address] [email or web address] 07/04/2025 10:00 AM EDT Telemedicine [facility] Cardiovascular Clinic [address] [place] [address] Thiago Bean MD [address] [place] [address] laurita@[email or web address] 10/18/2025 7:05 AM EDT Hospital Encounter [facility] EKG [address] [place] [address] Guanakito Gallardo MD [address] [place] [address] [email or web address] Arrived documented as of this encounter Visit Diagnoses Not on filedocumented in this encounter Additional Health Concerns Infection Onset Date Last Indicated Resolved Time COVID-19 04/06/2023 04/06/2023 04/27/2023 1:21 AM EST CoV-Risk 07/17/2024 07/17/2024 07/28/2024 1:21 AM EDT documented as of this encounter Care Teams Data Processing Manager Relationship Specialty Start Date End Date Gercia Bonilla MD [address] [place] [address] [place] [address] PCP - General Internal Medicine 10/13/22 Indigo Du, [facility] 300 [place] [address] [email or web address] Clinical Data Analyst Oncology 07/27/22 Hermelinda Barajas MD [address] [place] [address] Mariah Hermelinda 1240 [place] [address] [email or web address] Medical Oncology 11/29/22 Cindi Shell CNP [address] [place] [address] Fina@[facility] Gerontology 11/29/22 Zuri Ha RN [address] [place] [address] [place]@[facility] Primary Infusion Nurse 01/10/24 05/14/24 Carlos Alberto [place] MD, [place] [address] [place] [address] Department of Psychosocial Oncology and Palliative Care, [place] [address] Jaelyn@[facility] Hospice and Palliative Care 04/05/24 Patria Luevano, BRIELLE [address] [place] [address] STEFANO@[facility] Primary Infusion Nurse 05/15/24 Jennie Ferreira RN [address] [place] [address] ALISON@[email or web address] Associate Infusion Nurse 10/02/24 documented as of this encounter Additional Source Comments The information contained in this document represents components of the legal health record. It is not the complete legal health record.[facility]
--- OUTSIDE RECORDS SUMMARY | 2024-12-26 20:23 | XMS_ITS | Encounter Summary ---
Author Organization [facility] Address [address] [place] [address] Phone Care Team Providers Care Shipping Support Name Role Phone Indigo DuSW Unavailable Grecia Bonilla MD Primary Care Provider Hermelinda Barajas MD Unavailable [phone] Cindi Shell CATTLE STICKER Unavailable Zuri Ha RN Unavailable Sandra Ruiz@[email or web address] Carlos Alberto [place], [place] Unavailable Patria Luevano RN Unavailable TOBIAS HYATT@[facility] Jennie Ferreira RN Unavailable ALISON@ [facility] Encounter Details Date Type Department Care Team (Late st Contact Info) Description 09/06/2023 Procedure Pass [facility] Imaging Department, Hermelinda[facility] [facility] [place], [place] 450 [facility], Floor L1 [place] [address] Social History Tobacco Use Types Packs/Day Years [...] st Contact Info) Description 10/18/2024 Procedure Pass [facility] 70 [place] [address] 10/23/2024 Procedure Pass [facility] EKG 70 [place] [address] 10/23/2024 Procedure Pass [facility] EKG 70 [place] [address] 11/13/2024 Procedure Pass [address] [address] 11/13/2024 Procedure Pass [address] [address] 12/25/2024 Procedure Pass [address] [address] 01/05/2025 9:25 AM EST Appointment [address] [address] Hermelinda Barajas MD [address] [place] [address] [email or web address] 01/08/2025 1:00 PM EST Telemedicine - audio only [facility], [facility] [address], 9th [place] [address] Cindi Shell CATTLE STICKER 450 [place] [address] [place] east@[facility] Hermelinda Barajas MD [address] [address] Pedro@[facility] 01/11/2025 11:45 AM EST Appointment [facility], [address] [address] Hermelinda Barajas MD [address] [place] [address] Pedro@[facility] 01/15/2025 7:10 AM EST Blood Draw Laboratory Services, [address], 2nd [place] [address] Cindi Shell CNP [address] [place] [address] Benedict east@[facility] 01/15/2025 8:00 AM EST Office Visit [facility], [address], 9th [place] [address] Hermelinda Barajas MD [address] [place] [address] Pedro@[facility] 01/15/2025 9:00 AM EST Infusion Infusion Therapy Services [facility] [address], [address], 9th [place] [address] Cindi Shell CATTLE STICKER [address] [place] [address] [place] [address] Benedict east@[facility] Patria Luevano, BRIELLE [address] [place] [address] STEFANO@[facility] .[facility] 01/17/2025 10:00 AM EST Telemedicine [facility] Medical Weight Management 45 [place] [address] Svetlana Lucero, RigoD 75 [place] [address] [email or web address] 01/18/2025 7:35 AM EST Hospital Encounter [facility] EKG 70 [place] [address] Guanakito Gallardo MD 75 [facility] [place] [address] [facility] 01/18/2025 8:30 AM EST Appointment [facility] 70 [place] [address] Odalis Jimenez PA-C 70 [facility] 5th [place] [address] [email or web address] 02/01/2025 8:40 AM EST Office Visit [facility] Otolaryngology 45 [facility] ASB2-2 [place] [address] Demetrio Armtsrong MD 45 [place] [phone] [email or web address] 02/14/2025 10:20 AM EST Office Visit [facility] DIABETES MEDICINE 45 [place] [address] Frank Partida MD 221 [place] [address] jose [email or web address] 02/25/2025 9:30 AM EST Telemedicine [facility] Cardi[facility] Clinic 70 [place] [address] Guanakito Gallardo MD [address] [place] [address] 07/04/2025 10:00 AM EDT Telemedicine [facility] 70 [place] [address] Thiago Bean MD [address] [place] [address] [email or web address] 10/18/2025 7:05 AM EDT Hospital Encounter [facility] EKG [address] [place] [address] Guanakito Gallardo MD [address] [place] [address] [email or web address] Arrived documented as of this encounter Visit Diagnoses Not on filedocumented in this encounter Additional Health Concerns Infection Onset Date Last Indicated Resolved Time CoV-Risk 07/17/2024 07/17/2024 07/28/2024 1:21 AM EDT documented as of this encounter Care Teams Shipping Support Relationship Specialty Start Date End Date Grecia Bonilla MD [address] [place] [address] [place] [address] PCP - General Internal Medicine 10/13/22 Indigo Du, [facility] 300 [place] [address] [email or web address] Set Up / Operator Oncology 07/27/22 Hermelinda Barajas MD [address] [place] [address] Pedro@[email or web address] Medical Oncology 11/29/22 Cindi Shell CNP [address] [place] [address] Fina@[facility] Gerontology 11/29/22 Zuri Ha RN [address] [place] [address] [place]@[facility] Primary Infusion Nurse 01/10/24 05/14/24 Carlos Alberto [place] MD, [place] [address] [place] [address] Department of Psychosocial Oncology and Palliative Care, [place] [address] Jaelyn@[facility] Hospice and Palliative Care 04/05/24 Patria Luevano, BRIELLE [address] [place] [address] STEFANO@[facility] Primary Infusion Nurse 05/15/24 Jennie Ferreira RN [address] [place] [address] ALISON@[facility] Associate Infusion Nurse 10/02/24 documented as of this encounter Additional Source Comments The information contained in this document represents components of the legal health record. It is not the complete legal health record.[facility]
--- OUTSIDE RECORDS SUMMARY | 2024-12-26 20:23 | XMS_ITS | Encounter Summary ---
Author Organization [facility] Address [facility] [address] [place] [address] Phone Care Team Providers Care Clinical Research Analyst Name Role Phone Indigo DuSW Unavailable Grecia Bonilla MD Primary Care Provider Hermelinda Barajas MD Unavailable [phone] Cindi Shell [facility] Unavailable Carlos Alberto King [place], [place] Unavailable Patria Luevano RN Unavailable TOBIAS [email or web address] Jennie Ferreira RN Unavailable [email or web address]@ [email or web address] Reason for Visit * Reason Onset Date Comments Medication Refill 12/24/2024 Encounter Details Date Type Department Care Team (Late st Contact Info) Description 12/24/[address] [facility] DIABETES MEDICINE [address] [place] [address] Frank Partida MD [address] [place] [address] jose [email or web address] Medication Refill Social History Tobacco Use Types Packs/Day Years [...] as of this encounter Progress Notes * Yolette Dooley - 12/24/2024 12:20 PM EDT Patient called requesting the following medication/s/refill/s List medication/s - strength: [facility] Alcohol pads Is this a new medication or refill of existing medication? Refill Are you out of medication? no Callers questions/concerns: Pt is requesting to have an rx called in for the specific brand of [facility] alcohol pads Confirm patients pharmacy: Pharm[id number] phone [facility]: [facility] Telephone Information: documented in this encounter Plan of Treatment Upcoming Encounters Date Type Department Care Team (Late st Contact Info) Description 10/18/2024 Procedure Pass [facility] 70 [place] [address] 10/23/[address] [facility] EKG [address] [place] [address] 10/23/[address] [facility] EKG [address] [place] [address] 11/13/2024 Procedure Pass [address] [address] 11/13/2024 Procedure Pass [address] [address] 12/25/2024 Procedure Pass [address] [address] 01/05/2025 9:25 AM EST Appointment [address] [address] Hermelinda Barajas MD [address] [address] Pedro@[email or web address] 01/08/2025 1:00 PM EST Telemedicine - audio [facility], [facility] Cancer [place] [address] [place] [address], 9th [place] [address] Cindi Shell CNP [address] [place] [address] Benedict [email or web address] Hermelinda Barajas MD [address] [place] [address] Pedro@[facility] 01/11/2025 11:45 AM EST Appointment [facility] Ct Scan - [facility] 30 [place] [address] Hermelinda Barajas MD [address] [place] [address] 1240 [place] [address] Pedor@[facility] 01/15/2025 7:10 AM EST Blood Draw Laboratory Services, [address], 2nd [place] [address] Cindi Shell REST ROOM MATRON 450 [place] [address] Benedict east@[facility] 01/15/2025 8:00 AM EST Office Visit [facility], [address], 9th [place] [address] Hermelinda Barajas MD [address] [place] [address] Pedro@[facility] 01/15/2025 9:00 AM EST Infusion Infusion Therapy Services [place] 9, [address], 9th [place] [address] Cindi Shell REST ROOM MATRON [address] [place] [address] Benedict [email or web address] Patria Luevano, RN 450 [place] [address] [email or web address]@[email or web address] 01/17/2025 10:[address] [facility] Medical Weight Management 45 [place] [address] Svetlana Lucero, PharmD 75 [place] [address] [email or web address] 01/18/2025 7:35 AM EST Hospital Encounter [facility] EKG 70 [place] [address] Guanakito Gallardo MD [address] [place] [address] [place] [address] Arrived 01/18/2025 8:30 AM EST Appointment [facility] [address] [place] [address] Odalis Jimenez PA-C [address] [address] [email or web address] 02/01/2025 8:40 [address] EST Office [address] [facility] Otolaryngology 45 [facility] [place] [address] Demetrio Armstrong MD 45 [place] [phone] [email or web address] 02/14/2025 10:20 AM EST Office Visit [facility] DIABETES MEDICINE 45 [place] [address] Frank Partida MD [address] [place] [address] jose [email or web address] 02/25/2025 9:30 AM EST Telemedicine [facility] [address] [place] [address] Guanakito Gallardo MD [address] [place] [address] [place] [address] 07/04/2025 10:00 AM EDT Telemedicine [facility] 70 [place] [address] Thiago Bean MD [address] [place] [address] [email or web address] 10/18/2025 7:05 AM EDT Hospital Encounter [facility] EKG 70 [place] [address] Guanakito Gallardo MD [address] [place] [address] [place] [address] [email or web address] Arrived documented as of this encounter Visit Diagnoses Not on filedocumented in this encounter Care Teams Clinical Research Analyst Relationship Specialty Start Date End Date Grecia Bonilla MD [address] [place] [address] [place] [address] PCP - General Internal Medicine 10/13/22 Indigo Du, [facility] [address] [place] [address] [email or web address] Java Front End Web Developer Oncology 07/27/22 Hermelinda Barajas MD [address] [place] [phone] Pedro@[email or web address] Medical Oncology 11/29/22 Cindi Shell CNP [address] [place] [address] [place] [address] Fina@[email or web address] Gerontology 11/29/22 Carlos Alberto King MD, [place] [address] [place] [address] Department of Psychosocial Oncology and Palliative Care, [place] [phone] Jaelyn@[email or web address] Hospice and Palliative Care 04/05/24 Patria Luevano, RN [address] [place] [address] STEFANO@[email or web address] Primary Infusion Nurse 05/15/24 Jennie Ferreira, BRIELLE [address] [place] [address] ALISON@[email or web address] Associate Infusion Nurse 10/02/24 documented as of this encounter Additional Source Comments The information contained in this document represents components of the legal health record. It is not the complete legal health record.[facility]
--- OUTSIDE RECORDS SUMMARY | 2024-12-26 20:23 | XMS_ITS | Encounter Summary ---
Author Organization [facility] Address [address] [place] [address] Phone Care Team Providers Care It Network Architect Name Role Phone Indigo Du AUDIO/VISUAL OPERATOR Unavailable Grecia Bonilla MD Primary Care Provider Hermelinda Barajas MD Unavailable [phone] Cindi Shell FLIGHT SERVICE AGENT Unavailable Carlos Alberto King [place], [place] Unavailable [phone] Patria Luevano RN Unavailable TOBIAS [email or web address] Jennie Ferreira RN Unavailable ALISON@ [email or web address] Encounter Details Date Type Department Care Team (Late st Contact Info) Description 10/18/2024 Procedure Pass [facility] Electrophysiology Lab [address] [place] [address] Social History Tobacco Use Types Packs/Day Years [...] 10/18/2024 Procedure Pass [facility] [address] [place] [address] 10/23/2024 Procedure Pass [facility] EKG [address] [place] [address] 10/23/2024 Procedure Pass [facility] EKG [address] [place] [address] 11/13/2024 Procedure Pass [address] [address] 11/13/2024 Procedure Pass [address] [address] 12/25/2024 Procedure Pass [address] [address] 01/05/2025 9:25 AM EST Appointment [address] [address] Hermelinda Barajas MD [address] [place], [place] [address]leonard [address] [address] Pedro@[facility] 01/08/2025 1:00 PM EST Telemedicine - audio only [facility] for [facility] On[facility], [facility] 450 [facility], 9th [place] [address] Cindi Shell CNP 450 [place] [address] Benedict east@[email or web address] Hermelinda Barajas MD [address] [place] [address] Perdo@[facility] 01/11/2025 11:45 AM EST Appointment [facility], Co Scan [address] [address] Hermelinda Barajas MD [address] [place] [address] Pedro@[facility] 01/15/2025 7:10 AM EST Blood Draw Laboratory Services, [address], 2nd [place] [address] Cindi Shell CNP 450 [place] [address] Benedict east@[facility] 01/15/2025 8:00 AM EST Office Visit [facility], [address], 9th [place] [address] Hermelinda Barajas MD [address] [place] [address] [email or web address]@[facility] 01/15/2025 9:00 AM EST Infusion Infusion Therapy Services Yawmelissa 9, [facility] Cancer [address], 9th [place] [address] Cindi Shell CNP [address] [place] [address] Benedict [email or web address]@[email or web address] Patria Luevano, BRIELLE [address] [place] [address] STEFANO@[facility] 01/17/2025 10:00 AM EST Telemedicine [facility] Medical Weight Management [address] [place] [address] Svetlana Lucero, RigoD [address] [place] [address] [email or web address] 01/18/2025 7:35 AM EST Hospital Encounter [facility] EKG [address] [place] [address] Guanakito Gallardo MD [address] [place] [address] [place] [address] [facility] 01/18/2025 8:30 AM EST Appointment [facility] [address] [place] [address] Odalis Jimenez PA-C 70 [facility] 5th [place] [address] [email or web address] 02/01/2025 8:40 AM EST Office Visit [facility] Otolaryngology 45 [facility] ASB2-2 [place] [address] Demetrio Armstrong MD 45 [place] [address] [email or web address] 02/14/2025 10:20 AM EST Office Visit [facility] DIABETES MEDICINE 45 [place] [address] Frank Partida MD 221 [place] [address] jose [email or web address] 02/25/2025 9:30 AM EST Telemedicine [facility] Cardiovascular Clinic [address] [place] [address] Guanakito Gallardo MD [address] [place] [address] [email or web address] 07/04/2025 10:00 AM EDT Telemedicine [facility] Cardiovascular Clinic [address] [place] [address] Thiago Bean MD [address] [place] [address] [email or web address] 10/18/2025 7:05 AM EDT Hospital Encounter [facility] EKG [address] [place] [address] Guanakito Gallardo MD [address] [place] [address] Arrived documented as of this encounter Visit Diagnoses Not on filedocumented in this encounter Care Teams It Network Architect Relationship Specialty Start Date End Date Grecia Bonilla MD [address] [place] [address] [place] [address] PCP - General Internal Medicine 10/13/22 Indigo Du, AUDIO/VISUAL OPERATOR 300 [place] [address] [email or web address] Yard Labor Supervisor Oncology 07/27/22 Hermelinda Barajas MD [address] [place] [address] 1240 [place] [address] Pedro@[facility] Medical Oncology 11/29/22 Cindi Shell CNP [address] [place] [address] Fina@[facility] Gerontology 11/29/22 Carlos Alberto King MD, [place] [address] [place] [address] Department of Psychosocial Oncology and Palliative Care, [place] [address] Jaelyn@[facility] Hospice and Palliative Care 04/05/24 Patria Luevano, BRIELLE [address] [place] [address] STEFANO@[email or web address] Primary Infusion Nurse 05/15/24 Jennie Ferreira, BRIELLE [address] [place] [address] ALISON@[facility] Associate Infusion Nurse 10/02/24 documented as of this encounter Additional Source Comments The information contained in this document represents components of the legal health record. It is not the complete legal health record.[facility]
--- OUTSIDE RECORDS SUMMARY | 2024-12-26 20:23 | XMS_ITS | Encounter Summary ---
Author Organization [facility] Address [address] [place] [address] Phone Care Team Providers Care Radio Installer Automobile Name Role Phone Indigo DuSW Unavailable [phone] Grecia Bonilla MD Primary Care Provider Hermelinda Barajas MD Unavailable [phone] Cindi Shell BOOM STICK MAN Unavailable Zuri Ha RN Unavailable Sandra Ruiz@[email or web address] Carlos Alberto King MD, [place] Unavailable Patria Luevano RN Unavailable TOBIAS [email or web address]@[email or web address] Jennie Ferreira RN Unavailable ALISON@ [facility] Encounter Details Date Type Department Care Team (Late st Contact Info) Description 04/24/2024 Procedure Pass [facility], [address] [address] Social History Tobacco Use Types Packs/Day Years [...] Procedure Pass [facility] 70 [place] [address] 10/23/2024 Procedure Pass [facility] EKG 70 [place] [address] 10/23/2024 Procedure Pass [facility] EKG 70 [place] [address] 11/13/2024 Procedure Pass [address] [address] 11/13/2024 Procedure Pass [address] [address] 12/25/2024 Procedure Pass [address] [address] 01/05/2025 9:25 AM EST Appointment [address] [address] Hermelinda Barajas MD [address] [place] [address] [address] Pedro@[facility] 01/08/2025 1:00 PM EST Telemedicine - audio only [facility], [facility] 450 [facility], 9th [place] [address] Cindi Shell BOOM STICK MAN 450 [place] [address] Benedict east@[facility] Hermelinda Barajas MD [address] [place] [address] Pedro@[facility] 01/11/2025 11:45 AM EST Appointment [facility], [address] [address] Hermelinda Barajas MD [address] [place] [address] Pedro@[facility] 01/15/2025 7:10 AM EST Blood Draw Laboratory Services, [address], 2nd [place] [address] Cindi Shell BOOM STICK MAN [address] [place] [address] Benedict east@[facility] 01/15/2025 8:00 AM EST Office Visit [facility] for [facility], [facility] 450 [facility], 9th [place] [address] Hermelinda Barajas MD [address] [place] [address] Pedro@[facility] 01/15/2025 9:00 AM EST Infusion Infusion Therapy Services [place] [address], [facility] Cancer [address], 9th [place] [address] Cindi Shell CNP 450 [place] [address] Benedict esat@[email or web address] Patria Luevano, BRIELLE [address] [place] [address] STEFANO@[facility] .[facility] 01/17/2025 10:00 AM EST Telemedicine [facility] Medical Weight Management 45 [place] [address] Svetlana Lucero, PharmD [address] [place] [address] [email or web address] 01/18/2025 7:35 AM EST Hospital Encounter [facility] EKG 70 [place] [address] Guanakito Gallardo MD 75 [facility] [place] [address] [facility] 01/18/2025 8:30 AM EST Appointment [facility] 70 [place] [address] Odalis Jimenez PA-C 70 [facility] 5th [place] [address] [email or web address] 02/01/2025 8:40 AM EST Office Visit [facility] Otolaryngology 45 [facility] ASB2-2 [place] [address] Demetrio Armstrong MD 45 [place] [address] [email or web address] 02/14/2025 10:20 AM EST Office Visit [facility] DIABETES MEDICINE [address] [place] [address] Frank Partida MD [address] [place] [address] jose [email or web address]@[facility] 02/25/2025 9:30 AM EST Telemedicine [facility] Cardiovascular Clinic 70 [place] [address] Guanakito Gallardo MD [address] [place] [address] 07/04/2025 10:00 AM EDT Telemedicine [facility] Cardiovascular Clinic [address] [place] [address] Thiago Bean MD [address] [place] [address] [email or web address] 10/18/2025 7:05 AM EDT Hospital Encounter [facility] EKG 70 [place] [address] Guanakito Gallardo MD [address] [place] [address] Arrived documented as of this encounter Visit Diagnoses Not on filedocumented in this encounter Additional Health Concerns Infection Onset Date Last Indicated Resolved Time CoV-Risk 07/17/2024 07/17/2024 07/28/2024 1:21 AM EDT documented as of this encounter Care Teams Radio Installer Automobile Relationship Specialty Start Date End Date Grecia Bonilla MD [address] [place] [address] [place] [address] PCP - General Internal Medicine 10/13/22 Indigo Du, ENGINEERED WOOD DESIGNER [address] [place] [address] [email or web address] Flower Pot Press Operator Oncology 07/27/22 Hermelinda Barajas MD [address] [place] [address] [place] [address] Pedro@[facility] Medical Oncology 11/29/22 Cindi Shell CNP [address] [place] [address] Fina@[facility] Gerontology 11/29/22 Zuri Ha RN [address] [place] [address] Milton@[facility] Primary Infusion Nurse 01/10/24 05/14/24 Carlos Alberto King MD, [place] [address] [place] [address] Department of Psychosocial Oncology and Palliative Care, [place] [address] Jaelyn@[facility] Hospice and Palliative Care 04/05/24 Patria Luevano, RN [address] [place] [address] STEFANO@[facility] Primary Infusion Nurse 05/15/24 Jennie Ferreira, BRIELLE [address] [place] [address] ALISON@[email or web address] Associate Infusion Nurse 10/02/24 documented as of this encounter Additional Source Comments The information contained in this document represents components of the legal health record. It is not the complete legal health record.[facility]
--- OUTSIDE RECORDS SUMMARY | 2024-12-26 20:23 | XMS_ITS | Encounter Summary ---
Author Organization [facility] Address [address] [place] [address] Phone Care Team Providers Care Registered Respiratory Therapist Name Role Phone Indigo DuSW Unavailable [phone] Grecia Bonilla MD Primary Care Provider Hermelinda Barajas MD Unavailable [phone] Cindi Shell CONTINUOUS ABSORPTION PROCESS OPERATOR Unavailable Zuri Ha RN Unavailable Sandra Ruiz@[facility] Carlos Alberto King MD, [place] Unavailable Patria Luevano RN Unavailable TOBIAS HYATT@[facility].[place] Jennie Ferreira RN Unavailable ALISON@ [facility].[place] Encounter Details Date Type Department Care Team (Late st Contact Info) Description 03/06/2024 Procedure Pass [facility], Ct Scan - [facility] [address] [place] [address] Social History Tobacco Use Types Packs/Day Years [...] Procedure Pass [facility] 70 [place] [address] 10/23/2024 Procedure Pass [facility] EKG 70 [place] [address] 10/23/2024 Procedure Pass [facility] EKG 70 [place] [address] 11/13/2024 Procedure Pass [address] [address] 11/13/2024 Procedure Pass [address] [address] 12/25/2024 Procedure Pass [address] [address] 01/05/2025 9:25 AM EST Appointment [address] [address] Hermelinda Barajas MD [address] [place] [address] [address] Pedro@[facility] 01/08/2025 1:00 PM EST Telemedicine - audio only [facility], [facility] [address] [facility], 9th [place] [address] Cindi Shell CONTINUOUS ABSORPTION PROCESS OPERATOR 450 [place] [address] Benedict east@[facility] Hermelinda Barajas MD [address] [place] [address] Pedro@[facility] 01/11/2025 11:45 AM EST Appointment [address] [address] Hermelinda Barajas MD [address] [place] [address] Pedro@[facility] 01/15/2025 7:10 AM EST Blood Draw Laboratory Services, [address], 2nd [place] [address] Cindi Shell CONTINUOUS ABSORPTION PROCESS OPERATOR [address] [place] [address] Benedict east@[facility] 01/15/2025 8:00 AM EST Office Visit [facility], [facility] [address] [facility], 9th [place] [address] Hermelinda Barajas MD [address] [place] [address] [place] [address] Pedro@[facility] 01/15/2025 9:00 AM EST Infusion [facility] [place] [address], [address], 9th [place] [address] Cindi Shell CNP [address] [place] [address] Benedict east@[facility] Patria Luevano, BRIELLE [address] [place] [address] STEFANO@[facility] .[facility] 01/17/2025 10:00 AM EST Telemedicine [facility] Medical Weight Management 45 [place] [address] Svetlana Lucero, PharmD [address] [place] [address] nilam@[facility] 01/18/2025 7:35 AM EST Hospital Encounter [facility] EKG 70 [place] [address] Guanakito Gallardo MD 75 [facility] [place] [address] [facility] 01/18/2025 8:30 AM EST Appointment [facility] 70 [place] [address] Odails Jimenez PA-C 70 [facility] 5th [place] [address] [email or web address] 02/01/2025 8:40 AM EST Office Visit [facility] Otolaryngology 45 [facility] ASB2-2 [place] [address] Demetrio Armstrong MD 45 [place] [address] [email or web address] 02/14/2025 10:20 AM EST Office Visit [facility] DIABETES MEDICINE [address] [place] [address] Frank Partida MD [address] [place] [address] jose [email or web address]@[email or web address] 02/25/2025 9:30 AM EST Telemedicine [facility] 70 [place] [address] Guanakito Gallardo MD [address] [place] [address] 07/04/2025 10:00 AM EDT Telemedicine [facility] 70 [place] [address] Thiago Bean MD [address] [place] [address] [email or web address]@[facility] 10/18/2025 7:05 AM EDT Hospital Encounter [facility] EKG 70 [place] [address] Guanakito Gallardo MD [address] [place] [address] Arrived documented as of this encounter Visit Diagnoses Not on filedocumented in this encounter Additional Health Concerns Infection Onset Date Last Indicated Resolved Time CoV-Risk 07/17/2024 07/17/2024 07/28/2024 1:21 AM EDT documented as of this encounter Care Teams Registered Respiratory Therapist Relationship Specialty Start Date End Date Grecia Bonilla MD [address] [place] [address] [place] [address] PCP - General Internal Medicine 10/13/22 Indigo Du, PROFESSOR OF KINESIOLOGY [address] [place] [address] [email or web address] Senior Health Educator Oncology 07/27/22 Hermelinda Barajas MD [address] [place] [address] [place] [address] Pedro@[facility] Medical Oncology 11/29/22 Cindi Shell CNP [address] [place] [address] Fina@[facility] Gerontology 11/29/22 Zuri Ha RN [address] [place] [address] [place]@[facility] Primary Infusion Nurse 01/10/24 05/14/24 Carlos Alberto King MD, [place] [address] [place] [address] Department of Psychosocial Oncology and Palliative Care, [place] [address] Jaelyn@[facility] Hospice and Palliative Care 04/05/24 Patria Luevano, RN [address] [place] [address] STEFANO@[facility] Primary Infusion Nurse 05/15/24 Jennie Ferreira, BRIELLE [address] [place] [address] ALISON@[facility] Associate Infusion Nurse 10/02/24 documented as of this encounter Additional Source Comments The information contained in this document represents components of the legal health record. It is not the complete legal health record.[facility]
--- OUTSIDE RECORDS SUMMARY | 2024-12-26 20:23 | XMS_ITS | Encounter Summary ---
Author Organization [facility] Address [address] [place] [address] Phone Care Team Providers Care Wrapper Dipper Name Role Phone Indigo DuSW Unavailable [phone] Grecia Bonilla MD Primary Care Provider Hermelinda Barajas MD Unavailable [phone] Cindi Shell GENERAL DOC Unavailable [phone] Zuri Ha RN Unavailable Sandra Ruiz@[facility] Carlos Alberto King MD, [place] Unavailable Patria uLevano RN Unavailable TOBIAS HYATT@[facility].[place] Jennie Ferreira RN Unavailable ALISON@ [facility] Encounter Details Date Type Department Care Team (Late st Contact Info) Description 01/10/2024 Procedure Pass [facility], [address] [address] Social History Tobacco Use Types Packs/Day Years [...] Procedure Pass [facility] 70 [place] [address] 10/23/2024 Procedure Pass [facility] EKG 70 [place] [address] 10/23/2024 Procedure Pass [facility] EKG 70 [place] [address] 11/13/2024 Procedure Pass [address] [address] 11/13/2024 Procedure Pass [address] [address] 12/25/2024 Procedure Pass [address] [address] 01/05/2025 9:25 AM EST Appointment [address] [address] Hermelinda Barajas MD [address] [place] [address] 1240 [place] [address] Pedro@[facility] 01/08/2025 1:00 PM EST Telemedicine - audio only [facility], [facility] [place] [address] [place] [address], 9th [place] [address] Cindi Shell CNP 450 [place] [address] Benedict east@[facility] Hermelinda Barajas MD [address] [place] [address] [place] [address] Pedro@[facility] 01/11/2025 11:45 AM EST Appointment [facility], Ct Scan [facility] 30 [place] [address] Hermelinda Barajas MD [address] [address] Pedro@[facility] 01/15/2025 7:10 AM EST Blood Draw Laboratory Services, [address], 2nd [place] [address] Cindi Shell GENERAL DOC [address] [place] [address] Benedict east@[facility] 01/15/2025 8:00 AM EST Office Visit [facility], [address], 9th [place] [address] Hermelinda Barajas MD [address] [place] [address] Pedro@[facility] 01/15/2025 9:00 AM EST Infusion Infusion Therapy Services [place] [address], [address], 9th [place] [address] Cindi Shell GENERAL DOC [address] [place] [address] Benedict east@[facility] Patria Luevano, BRIELLE [address] [place] [address] STEFANO@[facility] 01/17/2025 10:00 AM EST Telemedicine [facility] Medical Weight Management 45 [place] [address] Svetlana Lucero, RigoD 75 [place] [address] [email or web address] 01/18/2025 7:35 AM EST Hospital Encounter [facility] EKG 70 [place] [address] Guanakito Gallardo MD 75 [facility] [place] [address] [facility] 01/18/2025 8:30 AM EST Appointment [facility] 70 [place] [address] Odalis Jimenez PA-C 70 [facility] 5th [place] [address] [email or web address] 02/01/2025 8:40 AM EST Office Visit [facility] Otolaryngology 45 [facility] ASB2-2 [place] [address] Demetrio Armstrong MD 45 [place] [address] [email or web address] 02/14/2025 10:20 AM EST Office Visit [facility] DIABETES MEDICINE 45 [place] [address] Frank Partida MD 221 [place] [address] jose [email or web address]@[email or web address] 02/25/2025 9:30 AM EST Telemedicine [facility] Clinic 70 [place] [address] Guanakito Gallardo MD [address] [place] [address] [email or web address] 07/04/2025 10:00 AM EDT Telemedicine [facility] [address] [place] [address] Thiago Bean MD [address] [place] [address] [email or web address] 10/18/2025 7:05 AM EDT Hospital Encounter [facility] EKG [address] [place] [address] Guanakito Gallardo MD [address] [place] [address] [email or web address] Arrived documented as of this encounter Visit Diagnoses Not on filedocumented in this encounter Additional Health Concerns Infection Onset Date Last Indicated Resolved Time CoV-Risk 07/17/2024 07/17/2024 07/28/2024 1:21 AM EDT documented as of this encounter Care Teams Wrapper Dipper Relationship Specialty Start Date End Date Grecia Bonilla MD [address] [place] [address] [place] [address] PCP - General Internal Medicine 10/13/22 Indigo Du, [facility] [address] [place] [address] [email or web address] Automotive Glass Installer Oncology 07/27/22 Hermelinda Barajas MD [facility] Wendy Shen 1240 [place] [address] Pedro@[facility] Medical Oncology 11/29/22 Cindi Shell CNP [address] [place] [address] Fina@[facility] Gerontology 11/29/22 Zuri Ha RN [address] [place] [address] Milton@[facility] Primary Infusion Nurse 01/10/24 05/14/24 Carlos Alberto King MD, [place] [address] [place] [address] Department of Psychosocial Oncology and Palliative [place], [place] [address] Jaelyn@[facility] Hospice and Palliative Care 04/05/24 Patria Luevano, BRIELLE [address] [place] [address] STEFANO@[facility] Primary Infusion Nurse 05/15/24 Jennie Ferreira, BRIELLE [address] [place] [address] ALISON@[email or web address] Associate Infusion Nurse 10/02/24 documented as of this encounter Additional Source Comments The information contained in this document represents components of the legal health record. It is not the complete legal health record.[facility]
--- OUTSIDE RECORDS SUMMARY | 2024-12-26 20:23 | XMS_ITS | Encounter Summary ---
Author Organization [facility] Address [address] [place] [address] Phone Care Team Providers Care Knitter Helper Name Role Phone Indigo DuSW Unavailable Grecia Bonilla MD Primary Care Provider Hermelinda Barajas MD Unavailable [phone] Cindi Shell SPRAY DRIER Unavailable Zuri Ha RN Unavailable Sandra Ruiz@[facility].[place] Carlos Alberto King MD, [place] Unavailable [phone] Patria Luevano RN Unavailable TOBIAS HYATT@[facility].[place] Jennie Ferreira RN Unavailable ALISON@ [facility].[place] Encounter Details Date Type Department Care Team (Late st Contact Info) Description 06/21/2023 Procedure Pass [facility], [facility] [place], [place] 450 [facility], Floor L1 [place] [address] Social History Tobacco Use Types Packs/Day Years [...] Pass [facility] [address] [place] [address] 10/23/2024 Procedure Pass [facility] EKG 70 [place] [address] 10/23/2024 Procedure Pass [facility] EKG 70 [place] [address] 11/13/2024 Procedure Pass [address] [address] 11/13/2024 Procedure Pass [address] [address] 12/25/2024 Procedure Pass [address] [address] 01/05/2025 9:25 AM EST Appointment [address] [address] Hermelinda Barajas MD [address] [place] [address] Pedro@[facility] 01/08/2025 1:00 PM EST Telemedicine - audio only [facility] for Thoracic On[facility], [facility] Cancer [address], 9th [place] [address] Cindi Shell SPRAY DRIER 450 [place] [address] Benedict east@[facility] Hermelinda Barajas MD [address] [address] Pedro@[facility] 01/11/2025 11:45 AM EST Appointment [facility], [address] [address] Hermelinda Barajas MD [address] [place] [address] Pedro@[facility] 01/15/2025 7:10 AM EST Blood Draw Laboratory Services, [address], 2nd [place] [address] Cindi Shell CNP [address] [place] [address] Benedict east@[facility] 01/15/2025 8:00 AM EST Office Visit [facility] for [facility] On[facility], [address], 9th [place] [address] Hermelinda Barajas MD [address] [place] [address] Pedro@[facility] 01/15/2025 9:00 AM EST Infusion Infusion Therapy Services [facility] [address], [address], 9th [place] [address] Cindi Shell SPRAY DRIER [address] [place] [address] [place] [address] Benedict east@[facility] Patria Luevano, BRIELLE [address] [place] [address] STEFANO@[facility] .[facility] 01/17/2025 10:00 AM EST Telemedicine [facility] Medical Weight Management 45 [place] [address] Svetlana Lucero, RigoD 75 [place] [address] [email or web address] 01/18/2025 7:35 AM EST Hospital Encounter [facility] EKG 70 [place] [address] Guanakito Gallardo MD 75 [facility] Cardiology [place] [address] [facility] 01/18/2025 8:30 AM EST Appointment [facility] 70 [place] [address] Odalis Jimenez PA-C 70 [facility] 5th [place] [address] [email or web address] 02/01/2025 8:40 AM EST Office Visit [facility] Otolaryngology 45 [facility] ASB2-2 [place] [address] Demetrio Armstrong MD 45 [place] [phone] [email or web address] 02/14/2025 10:20 AM EST Office Visit [facility] DIABETES MEDICINE 45 [place] [address] Frank Partida MD 221 [place] [address] jose [email or web address] 02/25/2025 9:30 AM EST Telemedicine [facility] Cardiovascular Clinic 70 [place] [address] Guanakito Gallardo MD [address] [place] [address] 07/04/2025 10:00 AM EDT Telemedicine [facility] Cardiovascular Clinic 70 [place] [address] Thiago Bean MD [address] [place] [address] laurita@[facility] 10/18/2025 7:05 AM EDT Hospital Encounter [facility] EKG [address] [place] [address] Guanakito Gallardo MD [address] [place] [address] [email or web address] Arrived documented as of this encounter Visit Diagnoses Not on filedocumented in this encounter Additional Health Concerns Infection Onset Date Last Indicated Resolved Time CoV-Risk 07/17/2024 07/17/2024 07/28/2024 1:21 AM EDT documented as of this encounter Care Teams Knitter Helper Relationship Specialty Start Date End Date Grecia Bonilla MD [address] [place] [address] [place] [address] PCP - General Internal Medicine 10/13/22 Indigo Du, [facility] 300 [place] [address] [email or web address] Cleaner Oncology 07/27/22 Hermelinda Barajas MD 450 Wendy Shen 1240 [place] [address] Pedro@[facility] Medical Oncology 11/29/22 Cindi Shell CNP [address] [place] [address] Fina@[facility] Gerontology 11/29/22 Zuri Ha RN [address] [place] [address] [place]@[facility] Primary Infusion Nurse 01/10/24 05/14/24 Carlos Alberto King MD, [place] [address] [place] [address] Department of Psychosocial Oncology and Palliative Care, [place] [address] Jaelyn@[facility] Hospice and Palliative Care 04/05/24 Patria Luevano, BRIELLE [address] [place] [address] STEFANO@[facility] Primary Infusion Nurse 05/15/24 Jennie Ferreira RN [address] [place] [address] ALISON@[facility] Associate Infusion Nurse 10/02/24 documented as of this encounter Additional Source Comments The information contained in this document represents components of the legal health record. It is not the complete legal health record.[facility]
--- OUTSIDE RECORDS SUMMARY | 2024-12-26 20:23 | XMS_ITS | Encounter Summary ---
Author Organization [facility] Address [facility] Diaries [facility] [address] [place] [address] Phone Care Team Providers Care Waste Water Or Water Plant Operator Name Role Phone Indigo DuSW Unavailable [phone] Grecia Bonilla MD Primary Care Provider Hermelinda Barajas MD Unavailable [phone] Cindi Shell [facility] Unavailable Carlos Alberto [place], [place] Unavailable Patria Luevano RN Unavailable TOBIAS [email or web address] Jennie Ferreira RN Unavailable [email or web address]@ [email or web address] Reason for Visit * Reason Onset Date Comments Svetlana/Patient Advice 12/26/2024 Encounter Details Date Type Department Care Team ([facility] st Contact Info) Description 12/26/[address] [facility] Medical Weight Management [address] [facility] [place] [address] Svetlana Lucero, PharmD 75 [place] [address] [email or web address] Svetlana/Patient Advice Social History Tobacco Use Types Packs/Day Years [...] as of this encounter Progress Notes * Ranjan Lindsey - 12/26/2024 4:14 PM EDT Svetlana Lucero Pt called and said they are sugar levels are going up (289) and asked if they can take more insulin. Pt said this is urgent and requested a call back from Svetlana Lucero at the earliest convenience. Call back: [phone] Thank you, Ranjan documented in this encounter Plan of Treatment Upcoming Encounters Date Type Department Care Team (Late st Contact Info) Description 10/18/2024 Procedure Pass [facility] 70 [place] [address] 10/23/[address] [facility] EKG [address] [place] [address] 10/23/[address] [facility] EKG 70 [place] [address] 11/13/2024 Procedure Pass [facility], Ct Scan [address] [address] 11/13/2024 Procedure Pass [address] [address] 12/25/2024 Procedure Pass [address] [address] 01/05/2025 9:25 AM EST Appointment [address] [address] Hermelinda Barajas MD [address] [place] [address] Pedro@[facility] 01/08/2025 1:00 PM EST Telemedicine - audio only [facility] for [facility] On[facility], [facility] Cancer [address], 9th [place] [address] Cindi Shell CNP [address] [place] [address] Benedict [email or web address] Hermelinda Barajas MD [address] [place] [address] Pedro@[facility] 01/11/2025 11:45 AM EST Appointment [address] [address] Hermelinda Barajas MD [address] [place] [address] Pedro@[facility] 01/15/2025 7:10 AM EST Blood Draw Laboratory Services, [facility] [address] [facility], 2nd [place] [address] Cindi Shell CNP [address] [place] [address] Benedict [email or web address]@[email or web address] 01/15/2025 8:00 AM EST Office Visit [facility] Center for Thoracic Oncology, [facility] [address] [facility], 9th [place] [address] Hermelinda Barajas MD [address] [place] [address] 1240 [place] [address] Pedro@[facility] 01/15/2025 9:00 AM EST Infusion Infusion Therapy Services [place] 9, [address], 9th [place] [address] Cindi Shell CNP [address] [place] [address] Benedict [email or web address]@[email or web address] Patria Luevano, BRIELLE [address] [place] [address] STEFANO@[facility] 01/17/2025 10:[address] [facility] Medical Weight Management 45 [place] [address] Svetlana Lucero, PharmD 75 [place] [address] [email or web address] 01/18/2025 7:35 AM EST Hospital Encounter [facility] EKG 70 [place] [address] Guanakito Gallardo MD [address] [place] [address] [place] [address] [email or web address] Arrived 01/18/2025 8:30 AM EST Appointment [facility] 70 [place] [address] Odalis Jimenez PA-C 70 [facility] 5th [place] [address] [email or web address] 02/01/2025 8:40 AM EST Office [address] [facility] Otolaryngology [address] [facility] [place] [address] Demetrio Armstrong MD [address] [place] [phone] [email or web address] 02/14/2025 10:20 AM EST Office Visit [facility] DIABETES MEDICINE [address] [place] [address] Frank Partida MD [address] [place] [address] jose [email or web address]@[facility] 02/25/2025 9:30 AM EST Telemedicine [facility] Cardiovascular Clinic [address] [place] [address] Guanakito Gallardo MD [address] [place] [address] [place] [address] [email or web address] 07/04/2025 10:00 AM EDT Telemedicine [facility] Cardiovascular Clinic [address] [place] [address] Thiago Bean MD [address] [place] [address] [email or web address]@[email or web address] 10/18/2025 7:05 AM EDT Hospital Encounter [facility] EKG 70 [place] [address] Guanakito Gallardo MD 75 [facility] [place] [address] [email or web address] Arrived documented as of this encounter Visit Diagnoses Not on filedocumented in this encounter Care Teams Waste Water Or Water Plant Operator Relationship Specialty Start Date End Date Grecia Bonilla MD [address] [place] [address] [place] [address] PCP - General Internal Medicine 10/13/22 Indigo Du, [facility] [address] [place] [address] [email or web address] Hvac Design Engineer Oncology 07/27/22 Hermelinda Barajas MD [address] [place] [address] Pedro@[facility] Medical Oncology 11/29/22 Cindi Shell CNP [address] [place] [address] Fina@[email or web address] Gerontology 11/29/22 Carlos Alberto King MD, [place] [address] [place] [address] Department of Psychosocial Oncology and Palliative Care, [place] [phone] Jaelyn@[facility] Hospice and Palliative Care 04/05/24 Patria Luevano, BRIELLE [address] [place] [address] [email or web address]@[facility] Primary Infusion Nurse 05/15/24 Jennie Ferreira, RN [address] [place] [address] [email or web address] Associate Infusion Nurse 10/02/24 documented as of this encounter Additional Source Comments The information contained in this document represents components of the legal health record. It is not the complete legal health record.[facility]
--- OUTSIDE RECORDS SUMMARY | 2024-12-26 20:23 | XMS_ITS | Encounter Summary ---
Author Organization [facility] Address [address] [place] [address] Phone Care Team Providers Care Airport Ramp Supervisor Name Role Phone Indigo Du CHEMICAL EDUCATOR Unavailable Grecia Bonilla MD Primary Care Provider Hermelinda Barajas MD Unavailable [phone] Cindi Shell [employer] [facility] Unavailable Carlos Alberto King MD, [place] Unavailable [phone] Patria Luevano RN Unavailable TOBIAS [email or web address] Jennie Ferreira RN Unavailable [email or web address]@ [email or web address] Encounter Details Date Type Department Care Team (Late st Contact Info) Description 07/17/2024 Procedure Pass [facility], Ct Scan - [address] [address] Social History Tobacco Use Types Packs/Day Years [...] Procedure Pass [facility] [address] [place] [address] 10/23/2024 Procedure Pass [facility] EKG [address] [place] [address] 10/23/2024 Procedure Pass [facility] EKG 70 [place] [address] 11/13/2024 Procedure Pass [address] [address] 11/13/2024 Procedure Pass [address] [address] 12/25/2024 Procedure Pass [address] [address] 01/05/2025 9:25 AM EST Appointment [address] [address] Hermelinda Barajas MD [address] [place] [address] Pedro@[facility] 01/08/2025 1:00 PM EST Telemedicine - audio only [facility] for Thoracic Oncology, [facility] [address] [facility], 9th [place] [address] Cindi Shell CNP [address] [place] [address] Benedict east@[facility] Hermelinda Barajas MD [address] [place] [address] Pedro@[facility] 01/11/2025 11:45 AM EST Appointment [facility], Mt Scan [address] [address] Hermelinda Barajas MD [address] [place] [address] [place] [address] Pedro@[facility] 01/15/2025 7:10 AM EST Blood Draw Laboratory Services, [address], 2nd [place] [address] Cindi Shell CNP [address] [place] [address] Benedict east@[facility] 01/15/2025 8:00 AM EST Office Visit [facility] for Thoracic Oncology, [facility] [address] [facility], 9th [place] [address] Hermelinda Barajas MD [address] [place] [address] Pedro@[facility] 01/15/2025 9:00 AM EST Infusion Infusion Therapy Services [facility] 9, [facility] Cancer [address], 9th [place] [address] Cindi Shell CNP [address] [place] [address] Benedict [email or web address] Patria Luevano, BRIELLE [address] [place] [address] STEFANO@[facility] 01/17/2025 10:00 AM EST Telemedicine [facility] Medical Weight Management [address] [place] [address] Svetlana Lucero, RigoD 75 [place] [address] [email or web address] 01/18/2025 7:35 AM EST Hospital Encounter [facility] EKG 70 [place] [address] Guanakito Gallardo MD 75 [facility] [place] [address] [email or web address] 01/18/2025 8:30 AM EST Appointment [facility] 70 [place] [address] Odalis Jimenez PA-C 70 [facility] 5th [place] [address] [email or web address] 02/01/2025 8:40 AM EST Office Visit [facility] Otolaryngology [facility]2 [place] [address] Demetrio Armstrong MD [address] [place] [phone] [email or web address] 02/14/2025 10:20 AM EST Office Visit [facility] DIABETES MEDICINE 45 [place] [address] Frank Partida MD [address] [place] [address] jose [email or web address] 02/25/2025 9:30 AM EST Telemedicine [facility] Cardiovascular Clinic [address] [place] [address] Guanakito Gallardo MD [address] [place] [address] [email or web address] 07/04/2025 10:00 AM EDT Telemedicine [facility] Cardiovascular Clinic [address] [place] [address] Thiago Bean MD [address] [place] [address] [email or web address] 10/18/2025 7:05 AM EDT Hospital Encounter [facility] EKG [address] [place] [address] Guanakito Gallardo MD [address] [place] [address] Arrived documented as of this encounter Visit Diagnoses Not on filedocumented in this encounter Additional Health Concerns Infection Onset Date Last Indicated Resolved Time CoV-Risk 07/17/2024 07/17/2024 07/28/2024 1:21 AM EDT documented as of this encounter Care Teams Airport Ramp Supervisor Relationship Specialty Start Date End Date Grecia Bonilla MD [address] [place] [address] [place] [address] PCP - General Internal Medicine 10/13/22 Indigo Du, [facility] [address] [place] [address] [email or web address] Doctor Of Naprapathic Medicine Oncology 07/27/22 Hermelinda Barajas MD [address] [place] [address] [place] [address] Pedro@[facility] Medical Oncology 11/29/22 Cindi Shell CNP [address] [place] [address] Fina@[email or web address] Gerontology 11/29/22 Carlos Alberto King MD, [place] [address] [place] [address] Department of Psychosocial Oncology and Palliative Care, [place] [phone] Jaelyn@[facility] Hospice and Palliative Care 04/05/24 Patria Luevano RN [address] [place] [address] [email or web address]@[facility] Primary Infusion Nurse 05/15/24 Jennie Ferreira RN [address] [place] [address] ALISON@[email or web address] Associate Infusion Nurse 10/02/24 documented as of this encounter Additional Source Comments The information contained in this document represents components of the legal health record. It is not the complete legal health record.[facility]
--- OUTSIDE RECORDS SUMMARY | 2024-12-26 20:23 | XMS_ITS | Encounter Summary ---
Author Organization [facility] Address [address] [place] [address] Phone Care Team Providers Care Public Improvement Inspector Name Role Phone Indigo DuSW Unavailable Grecia Bonilla MD Primary Care Provider Hermelinda Barajas MD Unavailable [phone] Cindi Shell [facility] Unavailable Carlos Alberto King MD, [place] Unavailable Patria Luevano RN Unavailable TOBIAS HYATT@[email or web address] Jennie Ferreira RN Unavailable ALISON@ [email or web address] Encounter Details Date Type Department Care Team (Late st Contact Info) Description 09/25/2024 Procedure Pass [facility] [address] [place] [address] Social History Tobacco Use Types Packs/Day Years [...] Procedure Pass [facility] [address] [place] [address] 10/23/2024 Procedure Pass [facility] EKG [address] [place] [address] 10/23/2024 Procedure Pass [facility] EKG [address] [place] [address] 11/13/2024 Procedure Pass [address] [address] 11/13/2024 Procedure Pass [address] [address] 12/25/2024 Procedure Pass [address] [address] 01/05/2025 9:25 AM EST Appointment [address] [address] Hermelinda Barajas MD [address] [place] [address] Andrew Shen [address] [place] [address] Pedro@[facility] 01/08/2025 1:00 PM EST Telemedicine - audio only [facility], [facility] [place] [address] [facility], 9th [place] [address] Cindi Shell CNP [address] [place] [address] Benedict east@[facility] Hermelinda Barajas MD [address] [place] [address] Pedro@[facility] 01/11/2025 11:45 AM EST Appointment [address] [address] Hermelinda Barajas MD [address] [place] [address] Pedro@[facility] 01/15/2025 7:10 AM EST Blood Draw Laboratory Services, [address], 2nd [place] [address] Cindi Shell CNP [address] [place] [address] Benedict east@[facility] 01/15/2025 8:00 AM EST Office Visit [facility], [address], 9th [place] [address] Hermelinda Barajas MD [address] [place] [address] Pedro@[facility] 01/15/2025 9:00 AM EST Infusion Infusion Therapy Services [place] 9, [facility] Cancer [address], 9th [place] [address] Cindi Shell CNP [address] [place] [address] Benedict east@[facility] Patria Luevano, BRIELLE [address] [place] [address] STEFANO@[facility] 01/17/2025 10:00 AM EST Telemedicine [facility] Medical Weight Management [address] [place] [address] Svetlana Lucero, RigoD [address] [place] [address] [email or web address] 01/18/2025 7:35 AM EST Hospital Encounter [facility] EKG 70 [place] [address] Guanakito Gallardo MD 75 [facility] [place] [address] [facility] 01/18/2025 8:30 AM EST Appointment [facility] 70 [place] [address] Odalis Jimenez PA-C 70 [facility] 5th [place] [address] [email or web address] 02/01/2025 8:40 AM EST Office Visit [facility] Otolaryngology 45 [facility] ASB2-2 [place] [address] Demetrio Armstrong MD [address] [place] [phone] [email or web address] 02/14/2025 10:20 AM EST Office Visit [facility] DIABETES MEDICINE [address] [place] [address] Frank Partida MD [address] [place] [address] jose [email or web address] 02/25/2025 9:30 AM EST Telemedicine [facility] Cardiovascular Clinic [address] [place] [address] Guanakito Gallardo MD [address] [place] [address] [email or web address] 07/04/2025 10:00 AM EDT Telemedicine [facility] Cardiovascular Clinic [address] [place] [address] Thiago Bean MD [address] [place] [address] [email or web address]@[email or web address] 10/18/2025 7:05 AM EDT Hospital Encounter [facility] EKG [address] [place] [address] Guanakito Gallardo MD [address] [place] [address] Arrived documented as of this encounter Visit Diagnoses Not on filedocumented in this encounter Care Teams Public Improvement Inspector Relationship Specialty Start Date End Date Grecia Bonilla MD [address] [place] [address] [place] [address] PCP - General Internal Medicine 10/13/22 Indigo Du, [facility] [address] [place] [address] [email or web address] Plaster Patternmaker Oncology 07/27/22 Hermelinda Barajas MD [address] [place] [address] 1240 [place] [address] Pedro@[facility] Medical Oncology 11/29/22 Cindi Shell CNP [address] [place] [address] Fina@[email or web address] Gerontology 11/29/22 Carlos Alberto King MD, [place] [address] [place] [address] Department of Psychosocial Oncology and Palliative Care, [place] [address] Jaelyn@[facility] Hospice and Palliative Care 04/05/24 Patria Luevano, BRIELLE [address] [place] [address] [email or web address]@[facility] Primary Infusion Nurse 05/15/24 Jennie Ferreira, BRIELLE [address] [place] [address] [email or web address]@[facility] Associate Infusion Nurse 10/02/24 documented as of this encounter Additional Source Comments The information contained in this document represents components of the legal health record. It is not the complete legal health record.[facility]
--- OUTSIDE RECORDS SUMMARY | 2024-12-26 20:23 | XMS_ITS | Encounter Summary ---
Author Organization [facility] Address [address] [place] [address] Phone Care Team Providers Care Tobacco Prevention Health Educator Name Role Phone Indigo DuSW Unavailable Grecia Bonilla MD Primary Care Provider Hermelinda Barajas MD Unavailable [phone] Cindi Shell [facility] Unavailable Carlos Alberto King MD, [place] Unavailable [phone] Patria Luevano RN Unavailable TOBIAS [email or web address] Jennie Ferreira RN Unavailable ALISON@ [email or web address].[place].[facility] Encounter Details Date Type Department Care Team (Late st Contact Info) Description 10/17/[address] [facility] Women's Radiology [address] [place] [address] Social History Tobacco Use Types Packs/Day Years [...] Procedure Pass [facility] Women[facility] Radiology [address] [place] [address] 10/23/2024 Procedure Pass [facility] EKG [address] [place] [address] 10/23/2024 Procedure Pass [facility] EKG [address] [place] [address] 11/13/2024 Procedure Pass [address] [address] 11/13/2024 Procedure Pass [address] [address] 12/25/2024 Procedure Pass [address] [address] 01/05/2025 9:25 AM EST Appointment [address] [address] Hermelinda Barajas MD [address] [place] [address] Andrew Shen [address] [place] [address] Pedro@[facility] 01/08/2025 1:00 PM EST Telemedicine - audio only [facility], [facility] [address], 9th [place] [address] Cindi Shell CNP [address] [place] [address] Benedict east@[facility] Hermelinda Barajas MD [address] [place] [address] Pedro@[facility] 01/11/2025 11:45 AM EST Appointment [address] [address] Hermelinda Barajas MD [address] [place] [address] Pedro@[facility] 01/15/2025 7:10 AM EST Blood Draw Laboratory Services, [address], 2nd [place] [address] Cindi Shell CNP [address] [place] [address] Benedict east@[facility] 01/15/2025 8:00 AM EST Office Visit [facility], [address], 9th [place] [address] Hermelinda Barajas MD [address] [place] [address] Pedro@[facility] 01/15/2025 9:00 AM EST Infusion Infusion Therapy Services Bow 9, [facility] Cancer [address], 9th [place] [address] Cindi Shell CNP [address] [place] [address] Benedict east@[facility] Patria Luevano, BRIELLE [address] [place] [address] STEFANO@[facility] 01/17/2025 10:00 AM EST Telemedicine [facility] Medical Weight Management [address] [place] [address] Svetlana Lucero, RigoD [address] [place] [address] nilam@[facility] 01/18/2025 7:35 AM EST Hospital Encounter [facility] EKG [address] [place] [address] Guanakito Gallardo MD 75 [facility] [place] [address] [facility] 01/18/2025 8:30 AM EST Appointment [facility] Women[facility] [address] [place] [address] Odalis Jimenez PA-C 70 [facility] 5th [place] [address] [email or web address] 02/01/2025 8:40 AM EST Office Visit [facility] Otolaryngology 45 [facility] ASB2-2 [place] [address] Demetrio Armstrong MD [address] [place] [phone] [email or web address] 02/14/2025 10:20 AM EST Office Visit [facility] DIABETES MEDICINE [address] [place] [address] Frank Partida MD [address] [place] [address] jose [email or web address]@[facility] 02/25/2025 9:30 AM EST Telemedicine [facility] [address] [place] [address] Guanakito Gallardo MD [address] [place] [address] [email or web address] 07/04/2025 10:00 AM EDT Telemedicine [facility] [address] [place] [address] hTiago Bean MD [address] [place] [address] laurita@[facility] 10/18/2025 7:05 AM EDT Hospital Encounter [facility] EKG [address] [place] [address] Guanakito Gallardo MD [address] [place] [address] Arrived documented as of this encounter Visit Diagnoses Not on filedocumented in this encounter Care Teams Tobacco Prevention Health Educator Relationship Specialty Start Date End Date Grecia Bonilla MD [address] [place] [address] [place] [address] PCP - General Internal Medicine 10/13/22 Indigo Du, [facility] [address] [place] [address] [email or web address] Hospital Insurance Clerk Oncology 07/27/22 Hermelinda Barajas MD [address] [place] [address] [place] [address] Pedro@[facility] Medical Oncology 11/29/22 Cindi Shell CNP [address] [place] [address] Fina@[facility] Gerontology 11/29/22 Carlos Alberto King MD, [place] [address] [place] [address] Department of Psychosocial Oncology and Palliative Care, [place] [address] Jaelyn@[facility] Hospice and Palliative Care 04/05/24 Patria Luevano, BRIELLE [address] [place] [address] STEFANO@[facility] Primary Infusion Nurse 05/15/24 Jennie Ferreira, BRIELLE [address] [place] [address] ALISON@[facility] Associate Infusion Nurse 10/02/24 documented as of this encounter Additional Source Comments The information contained in this document represents components of the legal health record. It is not the complete legal health record.[facility]
--- OUTSIDE RECORDS SUMMARY | 2024-12-26 20:23 | XMS_ITS | Encounter Summary ---
Author Organization Loc[facility] Address [address] [place] [address] Phone Care Team Providers Care Garden Center Manager Name Role Phone Indigo DuSW Unavailable [phone] Grecia Bonilla MD Primary Care Provider Hermelinda Barajas MD Unavailable [phone] Cindi Shell FLYING SHEAR OPERATOR Unavailable [phone] Zuri Ha RN Unavailable Sandra Ruiz@[email or web address] Carlos Alberto [place] MD, [place] Unavailable Patria Luevano RN Unavailable TOBIAS [email or web address] Jennie Ferreira RN Unavailable ALISON@ [facility] Encounter Details Date Type Department Care Team (Late st Contact Info) Description 03/22/2023 Procedure Pass [facility] Echocardiography [address] [place] [address] Social History Tobacco Use Types Packs/Day Years [...] [facility] [address] [place] [address] 10/23/2024 Procedure Pass [facility] EKG [address] [place] [address] 10/23/2024 Procedure Pass [facility] EKG [address] [place] [address] 11/13/2024 Procedure Pass [address] [address] 11/13/2024 Procedure Pass [address] [address] 12/25/2024 Procedure Pass [address] [address] 01/05/2025 9:25 AM EST Appointment [address] [address] Hermelinda Barajas MD [address] [place] [address] Pedro@[email or web address] 01/08/2025 1:00 PM EST Telemedicine - audio only [facility] for Thoracic Oncology, [facility] Cancer [place] [address] [place] [address], 9th [place] [address] Cindi Shell CNP 450 [place] [address] Benedict east@[facility] Hermelinda Barajas MD [address] [address] Pedro@[facility] 01/11/2025 11:45 AM EST Appointment [facility], [address] [address] Hermelinda Barajas MD [address] [address] Pedro@[facility] 01/15/2025 7:10 AM EST Blood Draw Laboratory Services, [address], 2nd [place] [address] Cindi Shell FLYING SHEAR OPERATOR [address] [place] [address] Benedict east@[facility] 01/15/2025 8:00 AM EST Office Visit [facility], [address], 9th [place] [address] Hermelinda Barajas MD [address] [place] [address] Pedro@[facility] 01/15/2025 9:00 AM EST Infusion Infusion Therapy Services Yawkey 9, [address], 9th [place] [address] Cindi Shell FLYING SHEAR OPERATOR [address] [place] [address] Vidhijuan daviddexterAreliophelia [email or web address] Patria Luevano, BRIELLE [address] [place] [address] STEFANO@[facility] 01/17/2025 10:00 AM EST Telemedicine [facility] Medical Weight Management [address] [place] [address] Svetlana Lucero, RigoD 75 [place] [address] [email or web address] 01/18/2025 7:35 AM EST Hospital Encounter [facility] EKG 70 [place] [address] Guanakito Gallardo MD 75 [facility] [place] [address] [email or web address] [facility] 01/18/2025 8:30 AM EST Appointment [facility] [address] [place] [address] Odalis Jimenez PA-C 70 [facility] 5th [place] [address] [email or web address] 02/01/2025 8:40 AM EST Office Visit [facility] Otolaryngology 45 [facility] ASB2-2 [place] [address] Demetrio Armstrong MD [address] [place] [phone] [email or web address] 02/14/2025 10:20 AM EST Office Visit [facility] DIABETES MEDICINE [address] [place] [address] Frank Partida MD 221 [place] [address] jose [email or web address] 02/25/2025 9:30 AM EST Telemedicine [facility] Cardiovascular Clinic [address] [place] [address] Guanakito Gallardo MD [address] [place] [address] 07/04/2025 10:00 AM EDT Telemedicine [facility] Cardiovascular Clinic [address] [place] [address] hTiago Bean MD [address] [place] [address] [email or web address] 10/18/2025 7:05 AM EDT Hospital Encounter [facility] EKG [address] [place] [address] Guanakito Gallardo MD [address] [place] [address] Arrived documented as of this encounter Visit Diagnoses Not on filedocumented in this encounter Additional Health Concerns Infection Onset Date Last Indicated Resolved Time COVID-19 04/06/2023 04/06/2023 04/27/2023 1:21 AM EST CoV-Risk 07/17/2024 07/17/2024 07/28/2024 1:21 AM EDT documented as of this encounter Care Teams Garden Center Manager Relationship Specialty Start Date End Date Grecia Bonilla MD [address] [place] [address] [place] [address] PCP - General Internal Medicine 10/13/22 Indigo Du, [facility] [address] [place] [address] [email or web address] Windows Security Engineer Oncology 07/27/22 Hermelinda Barajas MD [facility] Wendy Shen 12[address] [place] [address] Pedro@[facility] Medical Oncology 11/29/22 Cindi Shell CNP [address] [place] [address] Fina@[facility] Gerontology 11/29/22 Zuri Ha RN [address] [place] [address] Milton@[email or web address] Primary Infusion Nurse 01/10/24 05/14/24 Carlos Alberto King MD, [place] [address] [place] [address] Department of Psychosocial Oncology and Palliative Care, [place] [address] Jaelyn@[facility] Hospice and Palliative Care 04/05/24 Patria Luevano, BRIELLE [address] [place] [address] STEFANO@[facility] Primary Infusion Nurse 05/15/24 Jennie Ferreira RN [address] [place] [address] ALISON@[facility] Associate Infusion Nurse 10/02/24 documented as of this encounter Additional Source Comments The information contained in this document represents components of the legal health record. It is not the complete legal health record.[facility]
--- OUTSIDE RECORDS SUMMARY | 2024-12-26 20:23 | XMS_ITS | Encounter Summary ---
Author Organization [facility] Address [address] [place] [address] Phone Care Team Providers Care Wind Field Manager Name Role Phone Indigo DuSW Unavailable Grecia Bonilla MD Primary Care Provider Hermelinda Barajas MD Unavailable [phone] Cindi Shell WARHEAD MAINTENANCE SPECIALIST Unavailable Zuri Ha RN Unavailable Sandra Ruiz@[facility].[place] Carlos Alberto King MD, [place] Unavailable [phone] Patria Luevano RN Unavailable TOBIAS HYATT@[facility].[place] Jennie Ferreira RN Unavailable ALISON@ [facility] Encounter Details Date Type Department Care Team (Late st Contact Info) Description 01/14/2023 Procedure Pass [facility] Endoscopy Department [address] [place] [address] Social History Tobacco Use Types Packs/Day Years [...] [facility] [address] [place] [address] 10/23/2024 Procedure Pass [facility] EKG 70 [place] [address] 10/23/2024 Procedure Pass [facility] EKG 70 [place] [address] 11/13/2024 Procedure Pass [address] [address] 11/13/2024 Procedure Pass [address] [address] 12/25/2024 Procedure Pass [address] [address] 01/05/2025 9:25 AM EST Appointment [address] [address] Hermelinda Barajas MD [address] [place] [address] 1240 [place] [address] Pedro@[email or web address] 01/08/2025 1:00 PM EST Telemedicine - audio only [facility] Center for Thoracic Oncology, [facility] [place] [address] [place] [address], 9th [place] [address] Cindi Shell CNP [address] [place] [address] Benedict east@[facility] Hermelinda Barajas MD [address] [place] [address] Pedro@[facility] 01/11/2025 11:45 AM EST Appointment [facility], [address] [address] Hermelinda Barajas MD [address] [address] Pedro@[facility] 01/15/2025 7:10 AM EST Blood Draw Laboratory Services, [address], 2nd [place] [address] Cindi Shell WARHEAD MAINTENANCE SPECIALIST [address] [place] [address] Benedict east@[facility] 01/15/2025 8:00 AM EST Office Visit [facility] Center for Thoracic Oncology, [address], 9th [place] [address] Hermelinda Barajas MD [address] [place] [address] Pedro@[facility] 01/15/2025 9:00 AM EST Infusion Infusion Therapy Services [facility] 9, [address], 9th [place] [address] Cindi Shell WARHEAD MAINTENANCE SPECIALIST [address] [place] [address] Demiophelia [email or web address] Patria Luevano, BRIELLE [address] [place] [address] STEFANO@[facility] 01/17/2025 10:00 AM EST Telemedicine [facility] Medical Weight Management 45 [place] [address] Svetlana Lucero, RigoD 75 [place] [address] [email or web address] 01/18/2025 7:35 AM EST Hospital Encounter [facility] EKG 70 [place] [address] Guanakito Gallardo MD 75 [facility] Card[place] [address] [email or web address] [facility] 01/18/2025 8:30 AM EST Appointment [facility] 70 [place] [address] Odalis Jimenez PA-C 70 [facility] 5th [place] [address] [email or web address] 02/01/2025 8:40 AM EST Office Visit [facility] Otolaryngology 45 [facility] ASB2-2 [place] [address] Demetrio Armstrong MD 45 [place] [phone] [email or web address] 02/14/2025 10:20 AM EST Office Visit [facility] DIABETES MEDICINE 45 [place] [address] Frank Partida MD 221 [place] [address] jose [email or web address]@[facility] 02/25/2025 9:30 AM EST Telemedicine [facility] Cardiovascular Clinic 70 [place] [address] Guanakito Gallardo MD [address] [place] [address] [email or web address] 07/04/2025 10:00 AM EDT Telemedicine [facility] 70 [place] [address] Thiago Bean MD [address] [place] [address] [email or web address] 10/18/2025 7:05 AM EDT Hospital Encounter [facility] EKG 70 [place] [address] Guanakito Gallardo MD [address] [place] [address] Arrived documented as of this encounter Visit Diagnoses Not on filedocumented in this encounter Additional Health Concerns Infection Onset Date Last Indicated Resolved Time COVID-19 04/06/2023 04/06/2023 04/27/2023 1:21 AM EST CoV-Risk 07/17/2024 07/17/2024 07/28/2024 1:21 AM EDT documented as of this encounter Care Teams Wind Field Manager Relationship Specialty Start Date End Date Grecia Bonilla MD [address] [place] [address] [place] [address] PCP - General Internal Medicine 10/13/22 Indigo Du, [facility] [address] [place] [address] [email or web address] [employer] Oncology 07/27/22 Hermelinda Barajas MD [address] [place] [address] Mariah Shen 1240 [place] [address] [email or web address]@[facility] Medical Oncology 11/29/22 Cindi Shell CNP [address] [place] [address] Fina@[facility] Gerontology 11/29/22 Zuri Ha RN [address] [place] [address] Milton@[facility] Primary Infusion Nurse 01/10/24 05/14/24 Carlos Alberto King MD, [place] [address] [place] [address] Department of Psychosocial Oncology and Palliative Care, [place] [address] Jaelyn@[facility] Hospice and Palliative Care 04/05/24 Patria Luevano, BRIELLE [address] [place] [address] STEFANO@[facility] Primary Infusion Nurse 05/15/24 Jennie Ferreira RN [address] [place] [address] ALISON@[facility] Associate Infusion Nurse 10/02/24 documented as of this encounter Additional Source Comments The information contained in this document represents components of the legal health record. It is not the complete legal health record.[facility]
--- OUTSIDE RECORDS SUMMARY | 2024-12-26 20:23 | XMS_ITS | Encounter Summary ---
Author Organization [facility] Address [address] [place] [address] Phone Care Team Providers Care Armature Tester Name Role Phone Indigo DuSW Unavailable Grecia Bonilla MD Primary Care Provider Hermelinda Barajas MD Unavailable [phone] Cindi Shell PEACE OFFICER Unavailable Zuri Ha RN Unavailable Sandra [email or web address] Carlos Alberto King MD, [place] Unavailable Patria Luevano RN Unavailable TOBIAS [email or web address] Jennie Ferreira RN Unavailable ALISON@ [email or web address] Encounter Details Date Type Department Care Team (Late st Contact Info) Description 01/10/2024 Procedure Pass [facility], Ct Scan - [facility] [address] [place] [address] Social History Tobacco Use Types Packs/Day Years [...] Contact Info) Description 10/18/[address] [facility] Rad[facility] [address] [place] [address] 10/23/[address] [facility] EKG 70 [place] [address] 10/23/[address] [facility] EKG 70 [place] [address] 11/13/2024 Procedure Pass [address] [address] 11/13/2024 Procedure Pass [address] [address] 12/25/2024 Procedure Pass [address] [address] 01/05/2025 9:25 AM EST Appointment [address] [address] Hermelinda Barajas MD [address] [place] [address] 1240 [place] [address] [email or web address] 01/08/2025 1:00 PM EST Telemedicine - audio only [facility] for Thoracic Oncology, [facility] [place] [address] [place] [address], 9th [place] [address] Cindi Shell CNP 450 [place] [address] Benedict east@[facility] Hermelinda Barajas MD 450 [facility] 1240 [place] [address] Pedro@[facility] 01/11/2025 11:45 AM EST Appointment [facility], [place] Scan [facility] [address] [place] [address] Hermelinda Barajas MD 450 [facility] 1240 [place] [address] Pedro@[facility] 01/15/2025 7:10 AM EST Blood Draw Laboratory Services, [address], 2nd [place] [address] Cindi Shell PEACE OFFICER [address] [place] [address] Benedict east@[facility] 01/15/2025 8:00 AM EST Office Visit [facility]acic Oncology, [address], 9th [place] [address] Hermelinda Barajas MD [address] [place] [address] 1240 [place] [address] Pedro@[facility] 01/15/2025 9:00 AM EST Infusion Infusion Therapy Services Yawkey 9, [address], 9th [place] [address] Cindi Shell PEACE OFFICER [address] [place] [address] Benedict [email or web address] Patria Luevano, BRIELLE [address] [place] [address] STEFANO@[email or web address] 01/17/2025 10:[address] [facility] Medical Weight Management 45 [place] [address] Svetlana Lucero, RigoD 75 [place] [address] nilam@[facility] 01/18/2025 7:35 AM EST Hospital Encounter [facility] EKG 70 [place] [address] Guanakito Gallardo MD 75 [facility] [place] [address] [facility] 01/18/2025 8:30 AM EST Appointment [facility] 70 [place] [address] Odalis Jimenez PA-C 70 [facility] 5th [place] [address] [email or web address] 02/01/2025 8:40 AM EST Office [address] [facility] Otolaryngology 45 [facility] ASB2-2 [place] [address] Demetrio Armstrong MD 45 [place] [phone] [email or web address] 02/14/2025 10:20 AM EST Office [address] [facility] DIABETES MEDICINE 45 [place] [address] Frank Partida MD [address] [place] [address] jose [email or web address] 02/25/2025 9:30 AM EST Telemedicine [facility] 70 [place] [address] Guanakito Gallardo MD [address] [place] [address] 07/04/2025 10:00 AM EDT Telemedicine [facility] [address] [place] [address] Thiago Bean MD [address] [place] [address] [email or web address]@[facility] 10/18/2025 7:05 AM EDT Hospital Encounter [facility] EKG [address] [place] [address] Guanakito Gallardo MD [address] [place] [address] Arrived documented as of this encounter Visit Diagnoses Not on filedocumented in this encounter Additional Health Concerns Infection Onset Date Last Indicated Resolved Time CoV-Risk 07/17/2024 07/17/2024 07/28/2024 1:21 AM EDT documented as of this encounter Care Teams Armature Tester Relationship Specialty Start Date End Date Grecia Bonilla MD [address] [place] [address] [place] [address] PCP - General Internal Medicine 10/13/22 Indigo uD, HAND WINDER [address] [place] [address] [email or web address] Foil Wrapper Oncology 07/27/22 Hermelinda Barajas MD [facility] Wendy Shen 1240 [place] [address] Pedro@[facility] Medical Oncology 11/29/22 Cindi Shell CNP [address] [place] [address] Fina@[facility] Gerontology 11/29/22 Zuri Ha RN [address] [place] [address] Milton@[facility] Primary Infusion Nurse 01/10/24 05/14/24 Carlos Alberto King MD, [place] [address] [place] [address] Department of Psychosocial Oncology and Palliative Care, [place] [address] Jaelyn@[email or web address] Hospice and Palliative Care 04/05/24 Patria Luevano, BRIELLE [address] [place] [address] STEFANO@[facility] Primary Infusion Nurse 05/15/24 Jennie Ferreira, BRIELLE [address] [place] [address] ALISON@[email or web address] Associate Infusion Nurse 10/02/24 documented as of this encounter Additional Source Comments The information contained in this document represents components of the legal health record. It is not the complete legal health record.[facility]
--- OUTSIDE RECORDS SUMMARY | 2024-12-26 20:23 | XMS_ITS | Encounter Summary ---
Author Organization [facility] Address [address] [place] [address] Phone Care Team Providers Care Permit Specialist Name Role Phone Indigo Du [facility] Unavailable Grecia Bonilla MD Primary Care Provider Hermelinda Barajas MD Unavailable [phone] Cindi Shell MECHANIC CHIEF Unavailable [phone] Carlos Alberto King MD, [place] Unavailable Patria Luevano RN Unavailable TOBIAS [email or web address] Jennie Ferreira RN Unavailable ALISON@ [facility] Encounter Details Date Type Department Care Team (Late st Contact Info) Description 09/24/2024 Procedure Pass [facility] Endoscopy Department [address] [place] [address] Social History Tobacco Use Types Packs/Day Years [...] Pass [facility] [address] [place] [address] 10/23/2024 Procedure Pass [facility] EKG [address] [place] [address] 10/23/2024 Procedure Pass [facility] EKG 70 [place] [address] 11/13/2024 Procedure Pass [address] [address] 11/13/2024 Procedure Pass [address] [address] 12/25/2024 Procedure Pass [address] [address] 01/05/2025 9:25 AM EST Appointment [address] [address] Hermelinda Barajas MD [address] [place] [address] Andrew Shen [address] [place] [address] Pedro@[facility] 01/08/2025 1:00 PM EST Telemedicine - audio only [facility] for [facility] On[facility], [facility] 450 [facility], 9th [place] [address] Cindi Shell CNP 450 [place] [address] Benedict east@[facility] Hermelinda Barajas MD [address] [place] [address] Pedro@[facility] 01/11/2025 11:45 AM EST Appointment [facility], [address] [address] Hermelinda Barajas MD [address] [place] [address] Pedro@[facility] 01/15/2025 7:10 AM EST Blood Draw Laboratory Services, [address], 2nd [place] [address] Cindi Shell CNP [address] [place] [address] Benedict east@[facility] 01/15/2025 8:00 AM EST Office Visit [facility] for [facility] On[facility], [address], 9th [place] [address] Hermelinda Barajas MD [address] [place] [address] Pedro@[facility] 01/15/2025 9:00 AM EST Infusion Infusion Therapy Services Yawmelissa 9, [facility] [address], 9th [place] [address] Cindi Shell CNP [address] [place] [address] Benedict [email or web address] Patria Luevano, BRIELLE [address] [place] [address] STEFANO@[facility] 01/17/2025 10:00 AM EST Telemedicine [facility] Medical Weight Management [address] [place] [address] Svetlana Lucero, RigoD [address] [place] [address] nilam@[facility] 01/18/2025 7:35 AM EST Hospital Encounter [facility] EKG 70 [place] [address] Guanakito Gallardo MD 75 [facility] [place] [address] [facility] 01/18/2025 8:30 AM EST Appointment [facility] 70 [place] [address] Odalis Jimenez PA-C 70 [facility] 5th [place] [address] [email or web address] 02/01/2025 8:40 AM EST Office Visit [facility] Otolaryngology 45 [facility] ASB2-2 [place] [address] Demetrio Armstrong MD 45 [place] [address] [email or web address] 02/14/2025 10:20 AM EST Office Visit [facility] DIABETES MEDICINE 45 [place] [address] Frank Partida MD [address] [place] [address] jose guadalupe@[facility] 02/25/2025 9:30 AM EST Telemedicine [facility] 70 [place] [address] Guanakito Gallardo MD [address] [place] [address] [email or web address] 07/04/2025 10:00 AM EDT Telemedicine [facility] [address] [place] [address] Thiago Bean MD [address] [place] [address] laurita@[facility] 10/18/2025 7:05 AM EDT Hospital Encounter [facility] EKG 70 [place] [address] Guanakito Gallardo MD [address] [place] [address] [email or web address] Arrived documented as of this encounter Visit Diagnoses Not on filedocumented in this encounter Care Teams Permit Specialist Relationship Specialty Start Date End Date Grecia Bonilla MD [address] [place] [address] [place] [address] PCP - General Internal Medicine 10/13/22 Indigo Du, [facility] 300 [place] [address] [email or web address] Supervisor Tumbling And Rolling Oncology 07/27/22 Hermelinda Barajas MD [address] [place] [address] 1240 [place] [address] Pedro@[facility] Medical Oncology 11/29/22 Cindi Shell CNP [address] [place] [address] Fina@[facility] Gerontology 11/29/22 Carlos Alberto King MD, [place] [address] [place] [address] Department of Psychosocial Oncology and Palliative Care, [place] [address] Jaelyn@[facility] Hospice and Palliative Care 04/05/24 Patria Luevano, BRIELLE [address] [place] [address] STEFANO@[facility] Primary Infusion Nurse 05/15/24 Jennie Ferreira, BRIELLE [address] [place] [address] ALISON@[email or web address] Associate Infusion Nurse 10/02/24 documented as of this encounter Additional Source Comments The information contained in this document represents components of the legal health record. It is not the complete legal health record.[facility]
--- OUTSIDE RECORDS SUMMARY | 2024-12-26 20:23 | XMS_ITS | Encounter Summary ---
Author Organization [facility] Address [address] [place] [address] Phone Care Team Providers Care Camp Dining Room Attendant Name Role Phone Indigo DuSW Unavailable Grecia Bonilla MD Primary Care Provider Hermelinda Barajas MD Unavailable [phone] Cindi Shell LAY OUT INSPECTOR Unavailable Zuri Ha RN Unavailable Sandra Ruiz@[facility].[place] Carlos Alberto King MD, [place] Unavailable Patria Luevano RN Unavailable TOBIAS HYATT@[facility].[place] Jennie Ferreira RN Unavailable ALISON@ [facility] Encounter Details Date Type Department Care Team (Late st Contact Info) Description 03/22/2023 Procedure Pass [facility] Echocardiography 70 [place] [address] Social History Tobacco Use Types Packs/Day Years [...] [facility] 70 [place] [address] 10/23/2024 Procedure Pass [facility] EKG 70 [place] [address] 10/23/2024 Procedure Pass [facility] EKG 70 [place] [address] 11/13/2024 Procedure Pass [address] [address] 11/13/2024 Procedure Pass [address] [address] 12/25/2024 Procedure Pass [address] [address] 01/05/2025 9:25 AM EST Appointment [address] [address] Hermelinda Barajas MD [address] [place] [address] Pedro@[facility] 01/08/2025 1:00 PM EST Telemedicine - audio only [facility] Center for Thoracic Oncology, [facility] Cancer [place] [address] [place] [address], 9th [place] [address] Cindi Shell CNP 450 [place] [address] Benedict east@[facility] Hermelinda Barajas MD [address] [address] Pedro@[facility] 01/11/2025 11:45 AM EST Appointment [facility], [address] [address] Hermelinda Barajas MD [address] [address] Pedro@[facility] 01/15/2025 7:10 AM EST Blood Draw Laboratory Services, [address], 2nd [place] [address] Cindi Shell LAY OUT INSPECTOR [address] [place] [address] Benedict east@[facility] 01/15/2025 8:00 AM EST Office Visit [facility] Center for Thoracic Oncology, [address], 9th [place] [address] Hermelinda Barajas MD [address] [place] [address] Pedro@[facility] 01/15/2025 9:00 AM EST Infusion Infusion Therapy Services Yawkey 9, [address], 9th [place] [address] Cindi Shell LAY OUT INSPECTOR [address] [place] [address] Vidhijuan [email or web address] [email or web address] Patria Luevano, BRIELLE [address] [place] [address] STEFANO@[facility] 01/17/2025 10:00 AM EST Telemedicine [facility] Medical Weight Management 45 [place] [address] Svetlana Lucero, RigoD 75 [place] [address] [email or web address] 01/18/2025 7:35 AM EST Hospital Encounter [facility] EKG 70 [place] [address] Guanakito Gallardo MD 75 [facility] [place] [address] [email or web address] 01/18/2025 8:30 AM EST Appointment [facility] 70 [place] [address] Odalis Jimenez PA-C 70 [facility] 5th [place] [address] [email or web address] 02/01/2025 8:40 AM EST Office Visit [facility] Otolaryngology 45 [facility] ASB2-2 [place] [address] Demetrio Armstrong MD 45 [place] [phone] [email or web address] 02/14/2025 10:20 AM EST Office Visit [facility] DIABETES MEDICINE 45 [place] [address] Frank Partida MD 221 [place] [address] jose [email or web address]@[email or web address] 02/25/2025 9:30 AM EST Telemedicine [facility] Cardiovascular Clinic 70 [place] [address] Guanakito Gallardo MD [address] [place] [address] 07/04/2025 10:00 AM EDT Telemedicine [facility] Clinic 70 [place] [address] Thiago Bean MD [address] [place] [address] [email or web address] 10/18/2025 7:05 AM EDT Hospital Encounter [facility] EKG 70 [place] [address] Guanakito Gallardo MD [address] [place] [address] Arrived documented as of this encounter Visit Diagnoses Not on filedocumented in this encounter Additional Health Concerns Infection Onset Date Last Indicated Resolved Time COVID-19 04/06/2023 04/06/2023 04/27/2023 1:21 AM EST CoV-Risk 07/17/2024 07/17/2024 07/28/2024 1:21 AM EDT documented as of this encounter Care Teams Camp Dining Room Attendant Relationship Specialty Start Date End Date Grecia Bonilla MD [address] [place] [address] [place] [address] PCP - General Internal Medicine 10/13/22 Indigo Du, [facility] [address] [place] [address] [email or web address] Flower Pot Press Operator Oncology 07/27/22 Hermelinda Barajas MD [facility] Wendy Shen 1240 [place] [address] Pedro@[email or web address] Medical Oncology 11/29/22 Cindi Shell CNP [address] [place] [address] Fina@[facility] Gerontology 11/29/22 Zuri aH RN [address] [place] [address] Milton@[facility] Primary Infusion Nurse 01/10/24 05/14/24 Carlos Alberto King MD, [place] [address] [place] [address] Department of Psychosocial Oncology and Palliative Care, [place] [address] Jaelyn@[facility] Hospice and Palliative Care 04/05/24 Patria Luevano, BRIELLE [address] [place] [address] STEFANO@[facility] Primary Infusion Nurse 05/15/24 Jennie Ferreira RN [address] [place] [phone] ALISON@[facility] Associate Infusion Nurse 10/02/24 documented as of this encounter Additional Source Comments The information contained in this document represents components of the legal health record. It is not the complete legal health record.[facility]
--- OUTSIDE RECORDS SUMMARY | 2024-12-26 20:24 | XMS_ITS | Encounter Summary ---
Author Organization [facility] Address [address] [facility] [address] [place] [address] Phone Care Team Providers Care Tube Splicer Name Role Phone Indigo DuSW Unavailable [phone] Aubrey Taylor MD Primary Care Provider [phone] Marilynn Daly NP Primary Care Provider Unavailab Grecia Rosado MD Primary Care Provider Hermelinda Barajas MD Unavailable [phone] Cindi Shell [facility] Unavailable Zuri Ha RN Unavailable Sandra [email or web address] Carlos Alberto King MD, [place] Unavailable [phone] Patria Luevano RN Unavailable TOBIAS [email or web address] Jennie Ferreira RN Unavailable ALISON@ [facility] Encounter Details Date Type Department Care Team (Late st Contact Info) Description 09/10/2022 Procedure Pass [facility] [facility] [place], [place] 300 [facility] 3rd [place] [address] Social History Tobacco Use Types [...] [facility] [address] [place] [address] 10/23/[address] [facility] EKG [address] [place] [address] 10/23/[address] [facility] EKG [address] [place] [address] 11/13/2024 Procedure Pass [address] [address] 11/13/2024 Procedure Pass [address] [address] 12/25/2024 Procedure Pass [address] [address] 01/05/2025 9:25 AM EST Appointment [address] [address] Hermelinda Barajas MD 450 [facility] Mariah [place] 1240 [place] [address] [email or web address] 01/08/2025 1:00 PM EST Telemedicine - audio only [facility], [facility] [facility] [place] 450 Wendy Lem[facility], 9th [place] [address] Cindi Shell CNP 450 [place] [address] Benedict east@[facility] Hermelinda Barajas MD 450 [facility] 1240 [place] [address] Pedro@[facility] 01/11/2025 11:45 AM EST Appointment [facility], Ct Scan [address] [address] Hermelinda Barajas MD [address] [address] Pedro@[facility] 01/15/2025 7:10 AM EST Blood Draw Laboratory Services, [address], 2nd [place] [address] Cindi Shell DRAIN CLEANER PLUMBER 450 [place] [address] Benedict east@[facility] 01/15/2025 8:00 AM EST Office Visit [facility], [address], 9th [place] [address] Hermelinda Barajas MD [address] [place] [address] [place] [address] Pedro@[facility] 01/15/2025 9:00 AM EST Infusion Infusion Therapy Services [place] 9, [address], [place] [address] Cindi Shell, DRAIN CLEANER PLUMBER 450 [facility] [place] [address] CindiMukeshWalter [email or web address] Patria Luevano, BRIELLE 450 [place] [address] STEFANO@[facility] 01/17/2025 10:[address] [facility] Medical Weight Management 45 [place] [address] Svetlana Lucero, RigoD 75 [place] [address] [email or web address] 01/18/2025 7:35 AM EST Hospital Encounter [facility] EKG 70 [place] [address] Guanakito Gallardo MD 75 [facility] [place] [address] [facility] 01/18/2025 8:30 AM EST Appointment [facility] Women's Radiology 70 [place] [address] Odalis Jimenez PA-C [address] [address] [email or web address] 02/01/2025 8:[address] [facility] Otolaryngology 45 [facility] ASB2-2 [place] [address] Demetrio Armstrong MD 45 [place] [phone] [email or web address] 02/14/2025 10:[address] [facility] DIABETES MEDICINE 45 [place] [address] Frank Partida MD [address] [place] [address] jose [email or web address] 02/25/2025 9:30 AM EST Telemedicine [facility] [address] [place] [address] Guanakito Gallardo MD [address] [place] [address] 07/04/2025 10:00 AM EDT Telemedicine [facility] [address] [place] [address] Thiago Bean MD [address] [place] [address] [email or web address] 10/18/2025 7:05 AM EDT Hospital Encounter [facility] EKG [address] [place] [address] Guanakito Gallardo MD [address] [place] [address] Arrived documented as of this encounter Visit Diagnoses Not on filedocumented in this encounter Additional Health Concerns Infection Onset Date Last Indicated Resolved Time COVID-19 04/06/2023 04/06/2023 04/27/2023 1:21 AM EST CoV-Risk 07/17/2024 07/17/2024 07/28/2024 1:21 AM EDT documented as of this encounter Care Teams Tube Splicer Relationship Specialty Start Date End Date Aubrey Taylor MD [address] [place] [address] PCP - General Internal Medicine 08/13/22 09/14/22 Marilynn Daly NP PCP - General Nurse Practitioner 09/15/22 10/12/22 Grecia Bonilla MD [address] [place] [address] [place] [address] PCP - General Internal Medicine 10/13/22 Indigo Du, [facility] 300 [place] [address] [email or web address] Handhole Machine Operator Oncology 07/27/22 Hermelinda Barajas MD [address] [place] [address] [email or web address]@[email or web address] Medical Oncology 11/29/22 Cindi Shell CNP [address] [place] [address] Fina@[facility] Gerontology 11/29/22 Zuri Ha RN [address] [place] [address] Milton@[email or web address] Primary Infusion Nurse 01/10/24 05/14/24 Carlos Alberto King MD, [place] [address] [place] [address] Department of Psychosocial Oncology and Palliative Care, [place] [phone] Jaelyn@[email or web address] Hospice and Palliative Care 04/05/24 Patria Luevano, BRIELLE [address] [place] [address] [email or web address]@[email or web address] Primary Infusion Nurse 05/15/24 Jennie Ferreira, BRIELLE [address] [place] [address] ALISON@[email or web address] Associate Infusion Nurse 10/02/24 documented as of this encounter Additional Source Comments The information contained in this document represents components of the legal health record. It is not the complete legal health record.[facility]
--- OUTSIDE RECORDS SUMMARY | 2024-12-26 20:24 | XMS_ITS | Encounter Summary ---
Author Organization [facility] Address [address] [place] [address] Phone Care Team Providers Care Automotive Light Mechanic Name Role Phone Indigo Du [facility] Unavailable [phone] Grecia Bonilla MD Primary Care Provider Hermelinda Barajas MD Unavailable [phone] Cindi Shell [facility] Unavailable Carlos Alberto King MD, [place] Unavailable Patria Luevano RN Unavailable TOBIAS [email or web address] Jennie Ferreira RN Unavailable ALISON@ [email or web address] Encounter Details Date Type Department Care Team (Late st Contact Info) Description 05/15/2024 Procedure Pass [facility], Ct Scan - [facility] 30 [place] [address] Social History Tobacco Use Types Packs/Day Years [...] Procedure Pass [facility] [address] [place] [address] 10/23/2024 Procedure Pass [facility] EKG 70 [place] [address] 10/23/2024 Procedure Pass [facility] EKG 70 [place] [address] 11/13/2024 Procedure Pass [address] [address] 11/13/2024 Procedure Pass [address] [address] 12/25/2024 Procedure Pass [address] [address] 01/05/2025 9:25 AM EST Appointment [address] [address] Hermelinda Barajas MD [address] [place] [address] Pedro@[facility] 01/08/2025 1:00 PM EST Telemedicine - audio only [facility], [facility] 450 [facility], 9th [place] [address] Cindi Shell CNP [address] [place] [address] Benedict east@[facility] Hermelinda Barajas MD [address] [place] [address] Pedro@[facility] 01/11/2025 11:45 AM EST Appointment [facility], Wy Scan [address] [address] Hermelinda Barajas MD [address] [place] [address] [place] [address] Pedro@[facility] 01/15/2025 7:10 AM EST Blood Draw Laboratory Services, [address], 2nd [place] [address] Cindi Shell CNP [address] [place] [address] Benedict east@[facility] 01/15/2025 8:00 AM EST Office Visit [facility], [facility] 450 [facility], 9th [place] [address] Hermelinda Barajas MD [address] [place] [address] Pedro@[facility] 01/15/2025 9:00 AM EST Infusion Infusion Therapy Services Astermarlene 9, [facility] Cancer [address], 9th [place] [address] Cindi Shell CNP [address] [place] [address] Benedict east@[facility] Patria Luevano, BRIELLE [address] [place] [address] STEFANO@[facility] 01/17/2025 10:00 AM EST Telemedicine [facility] Medical Weight Management 45 [place] [address] Svetlana Lucero, RigoD 75 [place] [address] [email or web address] 01/18/2025 7:35 AM EST Hospital Encounter [facility] EKG 70 [place] [address] Guanakito Gallardo MD 75 [facility] [place] [address] [email or web address] 01/18/2025 8:30 AM EST Appointment [facility] 70 [place] [address] Odalis Jimenez PA-C 70 [facility] 5th [place] [address] [email or web address] 02/01/2025 8:40 AM EST Office Visit [facility] Otolaryngology 45 [facility] ASB2-2 [place] [address] Demetrio Armstrong MD 45 [place] [phone] [email or web address] 02/14/2025 10:20 AM EST Office Visit [facility] DIABETES MEDICINE 45 [place] [address] Frank Partida MD 221 [place] [address] jose [email or web address] 02/25/2025 9:30 AM EST Telemedicine [facility] Cardiovascular Clinic 70 [place] [address] Guanakito Gallardo MD [address] [place] [address] [email or web address] 07/04/2025 10:00 AM EDT Telemedicine [facility] Cardiovascular Clinic 70 [place] [address] Thiago Bean MD [address] [place] [address] [email or web address] 10/18/2025 7:05 AM EDT Hospital Encounter [facility] EKG 70 [place] [address] Guanakito Gallardo MD [address] [place] [address] Arrived documented as of this encounter Visit Diagnoses Not on filedocumented in this encounter Additional Health Concerns Infection Onset Date Last Indicated Resolved Time CoV-Risk 07/17/2024 07/17/2024 07/28/2024 1:21 AM EDT documented as of this encounter Care Teams Automotive Light Mechanic Relationship Specialty Start Date End Date Grecia Bonilla MD [address] [place] [address] [place] [address] PCP - General Internal Medicine 10/13/22 Indigo Du, [facility] 300 [place] [address] [email or web address] Dean Oncology 07/27/22 Hermelinda Barajas MD [address] [place] [address] 1240 [place] [address] Pedro@[facility] Medical Oncology 11/29/22 Cindi Shell CNP [address] [place] [address] Fina@[facility] Gerontology 11/29/22 Carlos Alberto King MD, [place] [address] [place] [address] Department of Psychosocial Oncology and Palliative Care, [place] [address] Jaelyn@[facility] Hospice and Palliative Care 04/05/24 Patria Luevano RN [address] [place] [address] [email or web address]@[facility] Primary Infusion Nurse 05/15/24 Jennie Ferreira RN [address] [place] [address] ALISON@[facility] Associate Infusion Nurse 10/02/24 documented as of this encounter Additional Source Comments The information contained in this document represents components of the legal health record. It is not the complete legal health record.[facility]
--- OUTSIDE RECORDS SUMMARY | 2024-12-26 20:24 | XMS_ITS | Encounter Summary ---
Author Organization [facility] Address [address] [place] [address] Phone Care Team Providers Care Echo Vascular Technologist Name Role Phone Indigo DuSW Unavailable [phone] Grecia Bonilla MD Primary Care Provider Hermelinda Barajas MD Unavailable [phone] Cindi Shell MANAGER CHANNEL Unavailable Zuri Ha RN Unavailable Sandra [email or web address] Carlos Alberto King MD, [place] Unavailable Patria Luevano RN Unavailable TOBIAS [email or web address] Jennie Ferreira RN Unavailable ALISON@ [facility] Encounter Details Date Type Department Care Team (Late st Contact Info) Description 10/22/2022 Procedure Pass [facility], Ct Scan - [facility] 30 [place] [address] Social History Tobacco Use Types Packs/Day Years [...] Contact Info) Description 10/18/2024 Procedure Pass [facility] Rad[facility] 70 [place] [address] 10/23/2024 Procedure Pass [facility] EKG 70 [place] [address] 10/23/2024 Procedure Pass [facility] EKG 70 [place] [address] 11/13/2024 Procedure Pass [address] [address] 11/13/2024 Procedure Pass [address] [address] 12/25/2024 Procedure Pass [address] [address] 01/05/2025 9:25 AM EST Appointment [address] [address] Hermelinda Barajas MD [address] [place] [address] 1240 [place] [address] [email or web address] 01/08/2025 1:00 PM EST Telemedicine - audio only [facility] for [facility], [facility] Cancer [place] [address] [place] [address], 9th [place] [address] Cindi Shell CNP 450 [place] [address] Benedict east@[facility] Hermelinda Barajas MD 450 [facility] 1240 [place] [address] Pedro@[facility] 01/11/2025 11:45 AM EST Appointment [facility], Ms Scan [facility] 30 [place] [address] Hermelinda Barajas MD 450 [facility] 1240 [place] [address] Pedro@[facility] 01/15/2025 7:10 AM EST Blood Draw Laboratory Services, [address], 2nd [place] [address] Cindi Shell MANAGER CHANNEL [address] [place] [address] Benedict east@[facility] 01/15/2025 8:00 AM EST Office Visit [facility], [address], 9th [place] [address] Hermelinda Barajas MD [address] [place] [address] 1240 [place] [address] Pedro@[facility] 01/15/2025 9:00 AM EST Infusion Infusion Therapy Services Yawkey 9, [address], 9th [place] [address] Cindi Shell MANAGER CHANNEL [address] [place] [address] Benedict east@[facility] Patria Luevano, BRIELLE 450 [place] [address] STEFANO@[email or web address] 01/17/2025 10:00 AM EST Telemedicine [facility] Medical Weight Management 45 [place] [address] Svetlana Lucero, RigoD 75 [place] [address] [email or web address] 01/18/2025 7:35 AM EST Hospital Encounter [facility] EKG 70 [place] [address] Guanakito Gallardo MD 75 [facility] [place] [address] [facility] 01/18/2025 8:30 AM EST Appointment [facility] 70 [place] [address] Odalis Jimenez PA-C [address] [facility] 5th [place] [address] [email or web address] 02/01/2025 8:40 AM EST Office Visit [facility] Otolaryngology 45 [facility] ASB2-2 [place] [address] Demetrio Armstrong MD 45 [place] [phone] [email or web address] 02/14/2025 10:20 AM EST Office Visit [facility] DIABETES MEDICINE 45 [place] [address] Frank Partida MD 221 [place] [address] jose [email or web address] 02/25/2025 9:30 AM EST Telemedicine [facility] Cardiovascular Clinic 70 [place] [address] Guanakito Gallardo MD [address] [place] [address] 07/04/2025 10:00 AM EDT Telemedicine [facility] Cardiovascular Clinic [address] [place] [address] Thiago Bean MD [address] [place] [address] [email or web address] 10/18/2025 7:05 AM EDT Hospital Encounter [facility] EKG [address] [place] [address] Guanakito Gallardo MD [address] [place] [address] [email or web address] Arrived documented as of this encounter Visit Diagnoses Not on filedocumented in this encounter Additional Health Concerns Infection Onset Date Last Indicated Resolved Time COVID-19 04/06/2023 04/06/2023 04/27/2023 1:21 AM EST CoV-Risk 07/17/2024 07/17/2024 07/28/2024 1:21 AM EDT documented as of this encounter Care Teams Echo Vascular Technologist Relationship Specialty Start Date End Date Grecia Bonilla MD [address] [place] [address] [place] [address] PCP - General Internal Medicine 10/13/22 Indigo Du, [facility] 300 [place] [address] [email or web address] Grinder Machine Setter Oncology 07/27/22 Hermelinda Barajas MD [address] [place] [address] Mariah Shen 1240 [place] [address] [email or web address]@[facility] Medical Oncology 11/29/22 Cindi Shell CNP [address] [place] [address] Fina@[email or web address] Gerontology 11/29/22 Zuri Ha, BRIELLE [address] [place] [address] Milton@[facility] Primary Infusion Nurse 01/10/24 05/14/24 Carlos Alberto King MD, [place] [address] [place] [address] Department of Psychosocial Oncology and Palliative Care, [place] [phone] Jaelyn@[facility] Hospice and Palliative Care 04/05/24 Patria Luevano, BRIELLE [address] [place] [address] STEFANO@[facility] Primary Infusion Nurse 05/15/24 Jennie Ferreira, BRIELLE [address] [place] [address] ALISON@[email or web address] Associate Infusion Nurse 10/02/24 documented as of this encounter Additional Source Comments The information contained in this document represents components of the legal health record. It is not the complete legal health record.[facility]
--- OUTSIDE RECORDS SUMMARY | 2024-12-26 20:24 | XMS_ITS | Clinical Summary ---
Author Organization [facility] Address [address] [place] [address] Care Team Providers Care Orthotic Fitter Name Role Phone Unavailable Primary Care Provider [...] 2015 COVID-19 Vaccine ( - season) 2024 RSV Vaccine 50 years and old er and Patients (1 - 1-dose 75+ series) 02/14/2040
--- OUTSIDE RECORDS SUMMARY | 2024-12-26 20:24 | XMS_ITS | Encounter Summary ---
Author Organization [facility] Address [address] [place] [address] Phone Care Team Providers Care Property Underwriter Name Role Phone Indigo DuSW Unavailable [phone] Grecia Bonilla MD Primary Care Provider Hermelinda Barajas MD Unavailable [phone] Cindi Shell MACHINE MAINTENANCE SERVICER Unavailable Zuri Ha RN Unavailable Sandra Ruiz@[email or web address].[facility] Carlos Alberto King MD, CT Unavailable Patria Luevano RN Unavailable TOBIAS [email or web address] Jennie Ferreira RN Unavailable ALISON@ [email or web address] Encounter Details Date Type Department Care Team (Late st Contact Info) Description 06/21/2023 Procedure Pass [facility], [facility] [facility] [place] 450 [facility], Floor L1 [place] [address] Social History Tobacco Use Types Packs/Day Years [...] Pass [facility] 70 [place] [address] 10/23/[address] [facility] EKG 70 [place] [address] 10/23/[address] [facility] EKG 70 [place] [address] 11/13/2024 Procedure Pass [address] [address] 11/13/2024 Procedure Pass [address] [address] 12/25/2024 Procedure Pass [address] [address] 01/05/2025 9:25 AM EST Appointment [address] [address] Hermelinda Barajas MD [address] [place] [address] Pedro@[email or web address].COUNTS INCLUDE 234 BEDS AT THE [facility] 01/08/2025 1:00 PM EST Telemedicine - audio only [facility], [facility] Cancer [address], 9th [place] [address] Cindi Shell MACHINE MAINTENANCE SERVICER 450 [place] [address] Benedict east@[facility] Hermelinda Barajas MD [address] [address] Pedro@[facility] 01/11/2025 11:45 AM EST Appointment [facility], [address] [address] Hermelinda Barajas MD [address] [place] [address] Pedro@[facility] 01/15/2025 7:10 AM EST Blood Draw Laboratory Services, [address], 2nd [place] [address] Cindi Shell CNP [address] [place] [address] Benedict east@[facility] 01/15/2025 8:00 AM EST Office Visit [facility], [address], 9th [place] [address] Hermelinda Barajas MD [address] [place] [address] Pedro@[facility] 01/15/2025 9:00 AM EST Infusion Infusion Therapy Services [facility] [address], [address], 9th [place] [address] Cindi Shell MACHINE MAINTENANCE SERVICER [address] [place] [address] [place] [address] Benedict east@[facility] Patria Luevano, BRIELLE [address] [place] [address] STEFANO@[facility] 01/17/2025 10:00 AM EST Telemedicine [facility] Medical Weight Management 45 [place] [address] vSetlana Lucero, RigoD 75 [place] [address] [email or web address] 01/18/2025 7:35 AM EST Hospital Encounter [facility] EKG 70 [place] [address] Guanakito Gallardo MD 75 [facility] [place] [address] [facility] 01/18/2025 8:30 AM EST Appointment [facility] 70 [place] [address] Odalis Jimenez PA-C 70 [facility] 5th [place] [address] [email or web address] [place] [facility] 02/01/2025 8:40 AM EST Office Visit [facility] Otolaryngology 45 [facility] ASB2-2 [place] [address] Demetrio Armstrong MD 45 [place] [phone] [email or web address] 02/14/2025 10:20 AM EST Office Visit [facility] DIABETES MEDICINE 45 [place] [address] Frank Partida MD 221 [place] [address] jose guadalupe@[email or web address] 02/25/2025 9:30 AM EST Telemedicine [facility] 70 [place] [address] Guanakito Gallardo MD [address] [place] [address] 07/04/2025 10:00 AM EDT Telemedicine [facility] 70 [place] [address] Thiago Bean MD [address] [place] [address] [email or web address]@[facility] 10/18/2025 7:05 AM EDT Hospital Encounter [facility] EKG [address] [place] [address] Guanakito Gallardo MD [address] [place] [address] [email or web address] Arrived documented as of this encounter Visit Diagnoses Not on filedocumented in this encounter Additional Health Concerns Infection Onset Date Last Indicated Resolved Time CoV-Risk 07/17/2024 07/17/2024 07/28/2024 1:21 AM EDT documented as of this encounter Care Teams Property Underwriter Relationship Specialty Start Date End Date Grecia Bonilla MD [address] [place] [address] [place] [address] PCP - General Internal Medicine 10/13/22 Indigo Du, [facility] [address] [place] [address] [email or web address] Cotton Picking Machine Operator Oncology 07/27/22 Hermelinda Barajas MD 450 Wendy Shen 1240 [place] [address] Pedro@[facility] Medical Oncology 11/29/22 Cindi Shell CNP [address] [place] [address] Fina@[facility] Gerontology 11/29/22 Zuri Ha RN [address] [place] [address] Milton@[facility] Primary Infusion Nurse 01/10/24 05/14/24 Carlos Alberto King MD, [place] [address] [place] [address] Department of Psychosocial Oncology and Palliative Care, [place] [address] Jaelyn@[facility] Hospice and Palliative Care 04/05/24 Patria Luevano, BRIELLE [address] [place] [address] STEFANO@[facility] Primary Infusion Nurse 05/15/24 Jennie Ferreira RN [address] [place] [address] ALISON@[facility] Associate Infusion Nurse 10/02/24 documented as of this encounter Additional Source Comments The information contained in this document represents components of the legal health record. It is not the complete legal health record.[facility]
--- OUTSIDE RECORDS SUMMARY | 2024-12-26 20:24 | XMS_ITS | Encounter Summary ---
Author Organization [facility] Address [address] [place] [address] Phone Care Team Providers Care Branch Assistant Name Role Phone Indigo DuSW Unavailable [phone] Grecia Bonilla MD Primary Care Provider Hermelinda Barajas MD Unavailable [phone] Cindi Shell WEIGHT SHIFTER Unavailable [phone] Zuri Ha RN Unavailable Sandra Ruiz@[facility].[place].[facility] Carlos Alberto King MD, [place] Unavailable [phone] Patria Luevano RN Unavailable TOBIAS HYATT@[email or web address].[facility] Jennie Ferreira RN Unavailable ALISON@ [facility].[facility] Encounter Details Date Type Department Care Team (Late st Contact Info) Description 03/06/2024 Procedure Pass [facility], Ct Scan - [facility] 30 [place] [address] Social History Tobacco Use Types Packs/Day Years [...] Procedure Pass [facility] 70 [place] [address] 10/23/2024 Procedure Pass [facility] EKG 70 [place] [address] 10/23/2024 Procedure Pass [facility] EKG 70 [place] [address] 11/13/2024 Procedure Pass [address] [address] 11/13/2024 Procedure Pass [address] [address] 12/25/2024 Procedure Pass [address] [address] 01/05/2025 9:25 AM EST Appointment [address] [address] Hermelinda Barajas MD [address] [place] [address] [address] Pedro@[facility] 01/08/2025 1:00 PM EST Telemedicine - audio only [facility] for [facility], [facility] 450 [facility], 9th [place] [address] Cindi Shell WEIGHT SHIFTER 450 [place] [address] Benedict east@[facility] Hermelinda Barajas MD [address] [place] [address] Pedro@[facility] 01/11/2025 11:45 AM EST Appointment [address] [address] Hermelinda Barajas MD [address] [place] [address] Pedro@[facility] 01/15/2025 7:10 AM EST Blood Draw Laboratory Services, [address], 2nd [place] [address] Cindi Shell WEIGHT SHIFTER [address] [place] [address] Benedict east@[facility] 01/15/2025 8:00 AM EST Office Visit [facility], [facility] 450 [facility], 9th [place] [address] Hermelinda Barajas MD [address] [place] [address] [place] [address] Pedro@[facility] 01/15/2025 9:00 AM EST Infusion Infusion Therapy Services [place] [address], [address], 9th [place] [address] Cindi Shell CNP [address] [place] [address] Benedict east@[facility] Patria Luevano, BRIELLE [address] [place] [address] STEFANO@[facility] .[facility] 01/17/2025 10:00 AM EST Telemedicine [facility] Medical Weight Management 45 [place] [address] Svetlana Lucero, PharmD [address] [place] [address] nilam@[facility] 01/18/2025 7:35 AM EST Hospital Encounter [facility] EKG 70 [place] [address] Guanakito Gallardo MD 75 [facility] [place] [address] [facility] 01/18/2025 8:30 AM EST Appointment [facility] 70 [place] [address] Odalis Jimenez PA-C 70 [facility] 5th [place] [address] [email or web address] 02/01/2025 8:40 AM EST Office Visit [facility] Otolaryngology 45 [facility] ASB2-2 [place] [address] Demetrio Armstrong MD 45 [place] [address] mak@[facility] 02/14/2025 10:20 AM EST Office Visit [facility] DIABETES MEDICINE [address] [place] [address] Frank Partida MD [address] [place] [address] jose guadalupe@[facility] 02/25/2025 9:30 AM EST Telemedicine [facility] Clinic 70 [place] [address] Guanakito Gallardo MD [address] [place] [address] 07/04/2025 10:00 AM EDT Telemedicine [facility] 70 [place] [address] Thiago Bean MD [address] [place] [address] laurita@[facility] 10/18/2025 7:05 AM EDT Hospital Encounter [facility] EKG 70 [place] [address] Guanakito Gallardo MD [address] [place] [address] Arrived documented as of this encounter Visit Diagnoses Not on filedocumented in this encounter Additional Health Concerns Infection Onset Date Last Indicated Resolved Time CoV-Risk 07/17/2024 07/17/2024 07/28/2024 1:21 AM EDT documented as of this encounter Care Teams Branch Assistant Relationship Specialty Start Date End Date Grecia Bonilla MD [address] [place] [address] [place] [phone] PCP - General Internal Medicine 10/13/22 Indigo Du, DYNAMICS AX DEVELOPER 300 [place] [address] [email or web address] Bowling Pin Refinisher Oncology 07/27/22 Hermelinda Barajas MD [address] [place] [address] 1240 [place] [address] Pedro@[facility] Medical Oncology 11/29/22 Cindi Shell CNP [address] [place] [address] Fina@[facility] Gerontology 11/29/22 Zuri Ha RN [address] [place] [address] Milton@[facility] Primary Infusion Nurse 01/10/24 05/14/24 Carlos Alberto King MD, [place] [address] [place] [address] Department of Psychosocial Oncology and Palliative Care, [place] [address] Jaelyn@[facility] Hospice and Palliative Care 04/05/24 Patria Luevano, RN [address] [place] [address] STEFANO@[facility] Primary Infusion Nurse 05/15/24 Jennie Ferreira, BRIELLE [address] [place] [address] ALISON@[email or web address] Associate Infusion Nurse 10/02/24 documented as of this encounter Additional Source Comments The information contained in this document represents components of the legal health record. It is not the complete legal health record.[facility]
--- OUTSIDE RECORDS SUMMARY | 2024-12-26 20:24 | XMS_ITS | Encounter Summary ---
Author Organization [facility] Address [address] [place] [address] Phone Care Team Providers Care Market Survey Representative Name Role Phone Indigo DuSW Unavailable Grecia Bonilla MD Primary Care Provider Hermelinda Barajas MD Unavailable [phone] Cindi Shell LINE PRODUCER Unavailable Zuri Ha RN Unavailable Sandra Ruiz@[facility].[place] Carlos Alberto King MD, [place] Unavailable Patria Luevano RN Unavailable TOBIAS HYATT@[facility] Jennie Ferreira RN Unavailable ALISON@ [facility] Encounter Details Date Type Department Care Team (Late st Contact Info) Description 10/22/2022 Procedure Pass [facility], Ct Scan - [facility] 30 [place] [address] Social History Tobacco Use Types Packs/Day Years [...] Procedure Pass [facility] Radiology 70 [place] [address] 10/23/2024 Procedure Pass [facility] EKG 70 [place] [address] 10/23/2024 Procedure Pass [facility] EKG 70 [place] [address] 11/13/2024 Procedure Pass [address] [address] 11/13/2024 Procedure Pass [address] [address] 12/25/2024 Procedure Pass [address] [address] 01/05/2025 9:25 AM EST Appointment [address] [address] Hermelinda Barajas MD [address] [place] [address] 1240 [place] [address] Pedro@[facility] 01/08/2025 1:00 PM EST Telemedicine - audio only [facility] Center for Thoracic Oncology, [facility] Cancer Marcus [address] [place] [address], 9th [place] [address] Cindi Shell CNP 450 [place] [address] Benedict east@[facility] Hermelinda Barajas MD 450 [facility] 1240 [place] [address] Pedro@[facility] 01/11/2025 11:45 AM EST Appointment [facility], Pr Scan [facility] 30 [place] [address] Hermelinda Barajas MD 450 [facility] 1240 [place] [address] Pedro@[facility] 01/15/2025 7:10 AM EST Blood Draw Laboratory Services, [address], 2nd [place] [address] Cindi Shell LINE PRODUCER [address] [place] [address] Benedict east@[facility] 01/15/2025 8:00 AM EST Office Visit [facility] for Thoracic Oncology, [address], 9th [place] [address] Hermelinda Barajas MD [address] [place] [address] 1240 [place] [address] Pedro@[facility] 01/15/2025 9:00 AM EST Infusion Infusion Therapy Services [facility] [address], [address], 9th [place] [address] Cindi Shell LINE PRODUCER [address] [place] [address] Benedict east@[facility] Patria Luevano, BRIELLE 450 [place] [address] STEFANO@[facility] 01/17/2025 10:00 AM EST Telemedicine [facility] Medical Weight Management 45 [place] [address] Svetlana Lucero, RigoD 75 [place] [address] nilam@[facility] 01/18/2025 7:35 AM EST Hospital Encounter [facility] EKG 70 [place] [address] Guanakito Gallardo MD 75 [facility] [place] [address] [facility] 01/18/2025 8:30 AM EST Appointment [facility] 70 [place] [address] Odalis Jimenez PA-C 70 [facility] 5th [place] [address] [email or web address] 02/01/2025 8:40 AM EST Office Visit [facility] Otolaryngology 45 [facility] ASB2-2 [place] [address] Demetrio Armstrong MD 45 [place] [address] [email or web address] 02/14/2025 10:20 AM EST Office Visit [facility] DIABETES MEDICINE 45 [place] [address] Frank Partida MD [address] [place] [address] jose [email or web address]@[facility] 02/25/2025 9:30 AM EST Telemedicine [facility] Cardiovascular Clinic 70 [place] [address] Guanakito Gallardo MD [address] [place] [address] 07/04/2025 10:00 AM EDT Telemedicine [facility]ovascular Clinic [address] [place] [address] Thiago Bean MD [address] [place] [address] laurita@[facility] 10/18/2025 7:05 AM EDT Hospital Encounter [facility] EKG [address] [place] [address] Guanakito Gallardo MD [address] [place] [address] [email or web address] Arrived documented as of this encounter Visit Diagnoses Not on filedocumented in this encounter Additional Health Concerns Infection Onset Date Last Indicated Resolved Time COVID-19 04/06/2023 04/06/2023 04/27/2023 1:21 AM EST CoV-Risk 07/17/2024 07/17/2024 07/28/2024 1:21 AM EDT documented as of this encounter Care Teams Market Survey Representative Relationship Specialty Start Date End Date Grecia Bonilla MD [address] [place] [address] [place] [address] PCP - General Internal Medicine 10/13/22 Indigo Du, [facility] 300 [place] [address] [email or web address] Christmas Tree Farmer Oncology 07/27/22 Hermelinda Barajas MD [address] [place] [address] Mariah Shen 1240 [place] [address] [email or web address]@[facility] Medical Oncology 11/29/22 Cindi Shell CNP [address] [place] [address] Fina@[facility] Gerontology 11/29/22 Zuri Ha, BRIELLE [address] [place] [address] Milton@[facility] Primary Infusion Nurse 01/10/24 05/14/24 Carlos Alberto King MD, PA [address] [place] [address] Department of Psychosocial Oncology and Palliative Care, [place] [phone] Jaelyn@[facility] Hospice and Palliative Care 04/05/24 Patria Luevano, BRIELLE [address] [place] [address] STEFANO@[facility] Primary Infusion Nurse 05/15/24 Jennie Ferreira, BRIELLE [address] [place] [address] ALISON@[facility] Associate Infusion Nurse 10/02/24 documented as of this encounter Additional Source Comments The information contained in this document represents components of the legal health record. It is not the complete legal health record.[facility]
--- OUTSIDE RECORDS SUMMARY | 2024-12-26 20:24 | XMS_ITS | Encounter Summary ---
Author Organization [facility] Address [address] [place] [address] Phone Care Team Providers Care Special Events Assistant Name Role Phone Indigo DuSW Unavailable Grecia Bonilla MD Primary Care Provider Hermelinda Barajas MD Unavailable [phone] Cindi Shell ASSEMBLER PRODUCT Unavailable Zuri Ha RN Unavailable Sandra Ruiz@[email or web address] Carlos Alberto King MD, MS Unavailable Patria Luevano RN Unavailable TOBIAS HYATT@[email or web address].[place] Jennie Ferreira RN Unavailable ALISON@ [facility] Encounter Details Date Type Department Care Team (Late st Contact Info) Description 01/11/2024 Procedure Pass [facility] Women's Radiology [address] [place] [address] Social History Tobacco Use Types Packs/Day Years [...] [facility] and Women's Radiology [address] [place] [address] 10/23/2024 Procedure Pass [facility] EKG [address] [place] [address] 10/23/2024 Procedure Pass [facility] EKG [address] [place] [address] 11/13/2024 Procedure Pass [address] [address] 11/13/2024 Procedure Pass [address] [address] 12/25/2024 Procedure Pass [address] [address] 01/05/2025 9:25 AM EST Appointment [address] [address] Hermelinda Barajas MD [address] [place] [address] Pedro@[email or web address] 01/08/2025 1:00 PM EST Telemedicine - audio only [facility] Center for Thoracic Oncology, [facility] Cancer [place] [address] [place] [address], 9th [place] [address] Cindi Shell CNP [address] [place] [address] Benedict east@[facility] Hermelinda Barajas MD [address] [address] Pedro@[facility] 01/11/2025 11:45 AM EST Appointment [address] [address] Hermelinda Barajas MD [address] [address] Pedro@[facility] 01/15/2025 7:10 AM EST Blood Draw Laboratory Services, [address], 2nd [place] [address] Cindi Shell CNP [address] [place] [address] Benedict east@[facility] 01/15/2025 8:00 AM EST Office Visit [facility] Center for Thoracic Oncology, [address], 9th [place] [address] Hermelinda Barajas MD [address] [place] [address] Pedro@[facility] 01/15/2025 9:00 AM EST Infusion Infusion Therapy Services Yawkey 9, [address], 9th [place] [address] Cindi Shell ASSEMBLER PRODUCT [address] [place] [address] JeniЕкатеринаsocrates [email or web address] Patria Luevano, BRIELLE [address] [place] [address] STEFANO@[facility] 01/17/2025 10:00 AM EST Telemedicine [facility] Medical Weight Management [address] [place] [address] Svetlana Lucero, RigoD 75 [place] [address] nilam@[facility] 01/18/2025 7:35 AM EST Hospital Encounter [facility] EKG [address] [place] [address] Guanakito Gallardo MD 75 [facility] [place] [address] [email or web address] [facility] 01/18/2025 8:30 AM EST Appointment [facility] [address] [place] [address] Odalis Jimenez PA-C 70 [facility] 5th [place] [address] [email or web address] 02/01/2025 8:40 AM EST Office Visit [facility] Otolaryngology 45 [facility] ASB2-2 [place] [address] Demetrio Armstrong MD 45 [place] [phone] mak@[facility] 02/14/2025 10:20 AM EST Office Visit [facility] DIABETES MEDICINE 45 [place] [address] Frank Partida MD 221 [place] [address] jose guadalupe@[facility] 02/25/2025 9:30 AM EST Telemedicine [facility] [address] [place] [address] Guanakito Gallardo MD [address] [place] [address] 07/04/2025 10:00 AM EDT Telemedicine [facility] [address] [place] [address] Thiago Bean MD [address] [place] [address] laurita@[facility] 10/18/2025 7:05 AM EDT Hospital Encounter [facility] EKG [address] [place] [address] Guanakito Gallardo MD [address] [place] [address] Arrived documented as of this encounter Visit Diagnoses Not on filedocumented in this encounter Additional Health Concerns Infection Onset Date Last Indicated Resolved Time CoV-Risk 07/17/2024 07/17/2024 07/28/2024 1:21 AM EDT documented as of this encounter Care Teams Special Events Assistant Relationship Specialty Start Date End Date Grecia Bonilla MD [address] [place] [address] [place] [address] PCP - General Internal Medicine 10/13/22 Indigo Du, [facility] 300 [place] [address] [email or web address] District Manager In Training Oncology 07/27/22 Hermelinda Barajas MD [facility] Wendy Shen 1240 [place] [address] Pedro@[facility] Medical Oncology 11/29/22 Cindi Shell CNP [address] [place] [address] Fina@[facility] Gerontology 11/29/22 Zuri Ha RN [address] [place] [address] Milton@[email or web address] Primary Infusion Nurse 01/10/24 05/14/24 Carlos Alberto King MD, [place] [address] [place] [address] Department of Psychosocial Oncology and Palliative Care, [place] [address] Jaelyn@[facility] Hospice and Palliative Care 04/05/24 Patria Luevano, BRIELLE [address] [place] [address] STEFANO@[facility] Primary Infusion Nurse 05/15/24 Jennie Ferreira RN [address] [place] [address] ALISON@[facility] Associate Infusion Nurse 10/02/24 documented as of this encounter Additional Source Comments The information contained in this document represents components of the legal health record. It is not the complete legal health record.[facility]
--- OUTSIDE RECORDS SUMMARY | 2024-12-26 20:24 | XMS_ITS | Encounter Summary ---
Author Organization [facility] Address [address] [place] [address] Phone Care Team Providers Care Reimbursement Specialist Name Role Phone Indigo DuSW Unavailable Grecia Bonilla MD Primary Care Provider Hermelinda Barajas MD Unavailable [phone] Cindi Shell INDUCTION HEAT TREATER Unavailable Zuri Ha RN Unavailable Sandra Ruiz@[facility] Carlos Alberto King MD, [place] Unavailable [phone] Patria Luevano RN Unavailable TOBIAS HYATT@[facility] Jennie Ferreira RN Unavailable ALISON@ [facility] Encounter Details Date Type Department Care Team (Late st Contact Info) Description 05/17/2023 Procedure Pass [facility] EKG [address] [place] [address] Social History Tobacco Use Types Packs/Day Years [...] st Contact Info) Description 10/18/2024 Procedure Pass [facility] and Women's Radiology [address] [place] [address] 10/23/2024 Procedure Pass [facility] EKG [address] [place] [address] 10/23/2024 Procedure Pass [facility] EKG [address] [place] [address] 11/13/2024 Procedure Pass [address] [address] 11/13/2024 Procedure Pass [address] [address] 12/25/2024 Procedure Pass [address] [address] 01/05/2025 9:25 AM EST Appointment [address] [address] Hermelinda Barajas MD [address] [place] [address] 1240 [place] [address] Pedro@[facility] 01/08/2025 1:00 PM EST Telemedicine - audio only [facility] Center for Thoracic Oncology, [facility] Cancer [place] [address] [place] [address], 9th [place] [address] Cindi Shell CNP 450 [place] [address] Benedict east@[facility] Hermelinda Barajas MD [address] [place] [address] Pedro@[facility] 01/11/2025 11:45 AM EST Appointment [facility], [address] [address] Hermelinda Barajas MD [address] [address] Pedro@[facility] 01/15/2025 7:10 AM EST Blood Draw Laboratory Services, [address], 2nd [place] [address] Cindi Shell INDUCTION HEAT TREATER [address] [place] [address] Benedict east@[facility] 01/15/2025 8:00 AM EST Office Visit [facility] Center for Thoracic Oncology, [address], 9th [place] [address] Hermelinda Barajas MD [address] [place] [address] Pedro@[facility] 01/15/2025 9:00 AM EST Infusion Infusion Therapy Services Y[facility]key 9, [address], 9th [place] [address] Cindi Shell INDUCTION HEAT TREATER [address] [place] [address] Demiophelia east@[facility] Patria Luevano, BRIELLE [address] [place] [address] STEFANO@[facility] 01/17/2025 10:00 AM EST Telemedicine [facility] Medical Weight Management [address] [place] [address] Svetlana Lucero, RigoD 75 [place] [address] nilam@[facility] 01/18/2025 7:35 AM EST Hospital Encounter [facility] EKG 70 [place] [address] Guanakito Gallardo MD 75 [facility] [place] [address] [email or web address] [facility] 01/18/2025 8:30 AM EST Appointment [facility] Women[facility] Radiology [address] [place] [address] Odalis Jimenez PA-C 70 [facility] 5th [place] [address] [email or web address] 02/01/2025 8:40 AM EST Office Visit [facility] Otolaryngology 45 [facility] ASB2-2 [place] [address] Demetrio Armstrong MD 45 [place] [phone] mak@[facility] 02/14/2025 10:20 AM EST Office Visit [facility] DIABETES MEDICINE 45 [place] [address] Frank Partida MD 221 [place] [address] jose guadalupe@[facility] 02/25/2025 9:30 AM EST Telemedicine [facility] Cardiovascular Clinic [address] [place] [address] Guanakito Gallardo MD [address] [place] [address] [email or web address] 07/04/2025 10:00 AM EDT Telemedicine [facility] [address] [place] [address] Thiago Bean MD [address] [place] [address] [email or web address] 10/18/2025 7:05 AM EDT Hospital Encounter [facility] EKG [address] [place] [address] Guanakito Gallardo MD [address] [place] [address] Arrived documented as of this encounter Visit Diagnoses Not on filedocumented in this encounter Additional Health Concerns Infection Onset Date Last Indicated Resolved Time CoV-Risk 07/17/2024 07/17/2024 07/28/2024 1:21 AM EDT documented as of this encounter Care Teams Reimbursement Specialist Relationship Specialty Start Date End Date Grecia Bonilla MD [address] [place] [phone] PCP - General Internal Medicine 10/13/22 Indigo Du, [facility] 300 [place] [address] [email or web address] Immunohematologist Oncology 07/27/22 Hermelinda Barajas MD [facility] Wendy Shen 1240 [place] [address] Pedro@[facility] Medical Oncology 11/29/22 Cindi Shell CNP [address] [place] [address] Fina@[facility] Gerontology 11/29/22 Zuri Ha RN [address] [place] [address] Milton@[facility] Primary Infusion Nurse 01/10/24 05/14/24 Carlos Alberto King MD, [place] [address] [place] [address] Department of Psychosocial Oncology and Palliative Care, [place] [address] Jaelyn@[facility] Hospice and Palliative Care 04/05/24 Patria Luevano, BRIELLE [address] [place] [address] STEFANO@[facility] Primary Infusion Nurse 05/15/24 Jennie Ferreira, BRIELLE [address] [place] [address] ALISON@[facility] Associate Infusion Nurse 10/02/24 documented as of this encounter Additional Source Comments The information contained in this document represents components of the legal health record. It is not the complete legal health record.[facility]
--- OUTSIDE RECORDS SUMMARY | 2024-12-26 20:24 | XMS_ITS | Encounter Summary ---
Author Organization [facility] Address [address] [facility] [address] [place] [address] Phone Care Team Providers Care Surgical Lead Name Role Phone Indigo DuSW Unavailable Aubrey Taylor MD Primary Care Provider [phone] Marilynn Daly NP Primary Care Provider Unavailab Grecia Rosado MD Primary Care Provider Hermelinda Barajas MD Unavailable [phone] Cindi Shell [facility] Unavailable [phone] Zuri Ha RN Unavailable Sandra Ruiz@[email or web address] Carlos Alberto King MD, MS Unavailable Patria Luevano RN Unavailable TOBIAS HYATT@[email or web address] Jennie Ferreira RN Unavailable ALISON@ [facility] Encounter Details Date Type Department Care Team (Late st Contact Info) Description 08/13/2022 Procedure Pass [facility] [place] 300 [facility] 3rd [place] [address] Social History Tobacco Use Types [...] [facility] Women[facility]iology 70 [place] [address] 10/23/2024 Procedure Pass [facility] EKG 70 [place] [address] 10/23/2024 Procedure Pass [facility] EKG 70 [place] [address] 11/13/2024 Procedure Pass [address] [address] 11/13/2024 Procedure Pass [address] [address] 12/25/2024 Procedure Pass [address] [address] 01/05/2025 9:25 AM EST Appointment [address] [address] Hermelinda Barajas MD 450 [facility] Mariah [place] 1240 [place] [address] Pedro@[email or web address] 234 BEDS AT [facility] 01/08/2025 1:00 PM EST Telemedicine - audio only [facility] for Thoracic Oncology, [facility] [place] 450 Wendy [facility], 9th [place] [address] Cindi Shell CNP 450 [place] [address] Benedict east@[facility] Hermelinda Barajas MD 450 [facility] 1240 [place] [address] Pedro@[facility] 01/11/2025 11:45 AM EST Appointment [facility], Ct Scan [address] [address] Hermelinda Barajas MD [address] [address] Pedro@[facility] 01/15/2025 7:10 AM EST Blood Draw Laboratory Services, [address], 2nd [place] [address] Cindi Shell GOLD ASSAYER 450 [place] [address] Benedict east@[facility] 01/15/2025 8:00 AM EST Office Visit [facility] Center for Thoracic Oncology, [address], 9th [place] [address] Hermelinda Barajas MD [address] [place] [address] [place] [address] Pedro@[facility] 01/15/2025 9:00 AM EST Infusion Infusion Therapy Services Yawkey 9, [address], [place] [address] Cindi Shell, GOLD ASSAYER 450 [facility] [place] [address] CindiMukeshWalter [email or web address] Patria Luevano, BRIELLE 450 [place] [address] STEFANO@[facility] 01/17/2025 10:00 AM EST Telemedicine [facility] Medical Weight Management 45 [place] [address] Svetlana Lucero, RigoD 75 [place] [address] nilam@[facility] 01/18/2025 7:35 AM EST Hospital Encounter [facility] EKG 70 [place] [address] Guanakito Gallardo MD 75 [facility] [place] [address] [facility] 01/18/2025 8:30 AM EST Appointment [facility] Women[facility] 70 [place] [address] Odalis Jimenez PA-C [address] [address] [email or web address] 02/01/2025 8:40 AM EST Office Visit [facility] Otolaryngology 45 [facility] ASB2-2 [place] [address] Demetrio Armstrong MD 45 [place] [phone] mak@[email or web address] 02/14/2025 10:20 AM EST Office Visit [facility] DIABETES MEDICINE 45 [place] [address] Frank Partida MD [address] [place] [address] jose guadalupe@[facility] 02/25/2025 9:30 AM EST Telemedicine [facility] Cardiovascular Clinic [address] [place] [address] Guanakito Gallardo MD [address] [place] [address] 07/04/2025 10:00 AM EDT Telemedicine [facility] Cardiovascular Clinic [address] [place] [address] Thiago Bean MD [address] [place] [address] laurita@[email or web address] 10/18/2025 7:05 AM EDT Hospital Encounter [facility] EKG [address] [place] [address] Guanakito Gallardo MD [address] [place] [address] Arrived documented as of this encounter Visit Diagnoses Not on filedocumented in this encounter Additional Health Concerns Infection Onset Date Last Indicated Resolved Time COVID-19 04/06/2023 04/06/2023 04/27/2023 1:21 AM EST CoV-Risk 07/17/2024 07/17/2024 07/28/2024 1:21 AM EDT documented as of this encounter Care Teams Surgical Lead Relationship Specialty Start Date End Date Aubrey Taylor MD [address] [place] [address] PCP - General Internal Medicine 08/13/22 09/14/22 Marilynn Daly NP PCP - General Nurse Practitioner 09/15/22 10/12/22 Grecia Bonilla MD [address] [place] [address] [place] [address] PCP - General Internal Medicine 10/13/22 Indigo Du, [facility] 300 [place] [address] christina@[facility] [facility] Oncology 07/27/22 Hermelinda Barajas MD [address] [place] [address] Pedro@[facility] Medical Oncology 11/29/22 Cindi Shell CNP [address] [place] [address] Fina@[facility] Gerontology 11/29/22 Zuri Ha RN [address] [place] [address] Milton@[facility] Primary Infusion Nurse 01/10/24 05/14/24 Carlos Alberto King MD, [place] [address] [place] [address] Department of Psychosocial Oncology and Palliative Care, [place] [address] Jaelyn@[facility] Hospice and Palliative Care 04/05/24 Patria Luevano, BRIELLE [address] [place] [address] STEFANO@[facility] Primary Infusion Nurse 05/15/24 Jennie Ferreira, BRIELLE [address] [place] [address] ALISON@[facility] Associate Infusion Nurse 10/02/24 documented as of this encounter Additional Source Comments The information contained in this document represents components of the legal health record. It is not the complete legal health record.[facility]
--- OUTSIDE RECORDS SUMMARY | 2024-12-26 20:24 | XMS_ITS | Encounter Summary ---
Author Organization [facility] Address [address] [place] [address] Phone Care Team Providers Care Fringe Weaver Name Role Phone Aubrey Taylor MD Primary Care Provider [phone] Indigo Du [facility] Unavailable Jn Cline DO Primary Care Provider Aubrey Taylor MD Primary Care Provider [phone] Marilynn Daly NP Primary Care Provider Unavailab Grecia Rosado MD Primary Care Provider Hermelinda Barajas MD Unavailable [phone] Cindi Shell POLE PEELER Unavailable Zuri Ha RN Unavailable Sandra [email or web address].[facility] Carlos Alberto King MD, [place] Unavailable Patria Luevano RN Unavailable TOBIAS [email or web address] Jennie Ferreira RN Unavailable [email or web address] Encounter Details Date Type Department Care Team (Late st Contact Info) Description 06/25/2022 Procedure Pass [facility] [address] [place] [address] Social History Tobacco Use Types Packs/Day Years [...] Procedure Pass [facility] [address] [place] [address] 10/23/2024 Procedure Pass [facility] EKG [address] [place] [address] 10/23/2024 Procedure Pass [facility] EKG [address] [place] [address] 11/13/2024 Procedure Pass [address] [address] 11/13/2024 Procedure Pass [address] [address] 12/25/2024 Procedure Pass [address] [address] 01/05/2025 9:25 AM EST Appointment [address] [address] Hermelinda Barajas MD 450 [facility] 1240 [place] [address] [email or web address] 01/08/2025 1:00 PM EST Telemedicine - audio only [facility] for Thoracic Oncology, [facility] [place] [address] [facility], 9th [place] [address] Cindi Shell, POLE PEELER 450 [place] [address] Benedict [email or web address] Hermelinda Barajas MD [address] [address] Pedro@[facility] 01/11/2025 11:45 AM EST Appointment [facility], [address] [address] Hermelinda Barajas MD [address] [place] [address] Pedro@[facility] 01/15/2025 7:10 AM EST Blood Draw Laboratory Services, [address], 2nd [place] [address] Cindi Shell POLE PEELER 450 [place] [address] Benedict [email or web address] 01/15/2025 8:00 AM EST Office Visit [facility] Center for Thoracic Oncology, [address], 9th [place] [address] Hermelinda Barajas MD [address] [place] [address] Pedro@[facility] 01/15/2025 9:00 AM EST Infusion Infusion Therapy Services Yawkey 9, [address], 9th [place] [address] Cindi Shell CNP 450 [facility] [place] [address] Benedict [email or web address] Patria Luevano, RN 450 [place] [address] [email or web address] .[facility] 01/17/2025 10:00 AM EST Telemedicine [facility] Medical Weight Management 45 [place] [address] Svetlana Lucero, RigoD 75 [place] [address] [email or web address] 01/18/2025 7:35 AM EST Hospital Encounter [facility] EKG 70 [place] [address] Guanakito Gallardo MD 75 [facility] [place] [address] [email or web address] 01/18/2025 8:30 AM EST Appointment [facility] 70 [place] [address] Odalis Jimenez PA-C 70 [facility] 5th [place] [address] [email or web address] 02/01/2025 8:40 AM EST Office Visit [facility] Otolaryngology 45 [facility] ASB2-2 [place] [address] Demetrio Armstrong MD 45 [place] [phone] [email or web address] 02/14/2025 10:20 AM EST Office Visit [facility] DIABETES MEDICINE 45 [place] [address] Frank Partida MD [address] [place] [address] [email or web address] 02/25/2025 9:30 AM EST Telemedicine [facility] 70 [place] [address] Guanakito Gallardo MD [address] [place] [address] 07/04/2025 10:00 AM EDT Telemedicine [facility] [address] [place] [address] Thiago Bean MD [address] [place] [address] [email or web address] 10/18/2025 7:05 AM EDT Hospital Encounter [facility] EKG 70 [place] [address] Guanakito Gallardo MD [address] [place] [address] [email or web address] Arrived documented as of this encounter Visit Diagnoses Not on filedocumented in this encounter Additional Health Concerns Infection Onset Date Last Indicated Resolved Time COVID-19 04/06/2023 04/06/2023 04/27/2023 1:21 AM EST CoV-Risk 07/17/2024 07/17/2024 07/28/2024 1:21 AM EDT documented as of this encounter Care Teams Fringe Weaver Relationship Specialty Start Date End Date Aubrey Taylor MD [address] [place] [address] PCP - General Internal Medicine 05/28/22 08/03/22 Jn Cline DO [address] [place] [address] [email or web address] [employer] PCP - General Hospitalist 08/04/22 08/12/22 Aubrey Taylor MD [address] [place] [address] PCP - General Internal Medicine 08/13/22 09/14/22 Marilynn Daly ASSISTANT ACCOUNTING MANAGER PCP - General Nurse Practitioner 09/15/22 10/12/22 Grecia Bonilla MD [address] [place] [address] [place] [address] PCP - General Internal Medicine 10/13/[address] [address] [email or web address] [employer] Principal Oncology 07/27/22 Hermelinda Barajas MD [address] [place] [address] Pedro@[facility] Medical Oncology 11/29/22 Cindi Shell CNP [address] [place] [address] Fina@[facility] Gerontology 11/29/22 Zuri Ha, BRIELLE [address] [place] [address] Milton@[facility] Primary Infusion Nurse 01/10/24 05/14/24 Carlos Alberto King MD, [place] [address] [place] [address] Department of Psychosocial Oncology and Palliative Care, [place] [address] [email or web address] 04/05/24 Patria Luevano, RN 450 [place] [address] STEFANO@[email or web address] Primary Infusion Nurse 05/15/24 Jennie Ferreira, BRIELLE [address] [place] [address] ALISON@[email or web address] Associate Infusion Nurse 10/02/24 documented as of this encounter Additional Source Comments The information contained in this document represents components of the legal health record. It is not the complete legal health record.[facility]
--- OUTSIDE RECORDS SUMMARY | 2024-12-26 20:24 | XMS_ITS | Encounter Summary ---
Author Organization [facility] Address [address] [facility] [address] [place] [address] Phone Care Team Providers Care Dental Service Technician Name Role Phone Indigo DuSW Unavailable [phone] Aubrey Taylor MD Primary Care Provider [phone] Marilynn Daly NP Primary Care Provider Unavailab Grecia Rosado MD Primary Care Provider Hermelinda Barajas MD Unavailable [phone] Cindi Shell [facility] Unavailable [phone] Zuri Ha RN Unavailable Sandra Ruiz@[email or web address].[email or web address].[facility] Carlos Alberto King MD, [place] Unavailable Patria Luevano RN Unavailable TOBIAS HYATT@[email or web address].[place].[facility] Jennie Ferreira RN Unavailable ALISON@ [facility].[place].[facility] Encounter Details Date Type Department Care Team (Late st Contact Info) Description 08/13/2022 Procedure Pass [facility] [place] 300 [facility] 3rd [place] [address] Social History Tobacco Use Types [...] Pass [facility] [address] [place] [address] 10/23/2024 Procedure Pass [facility] EKG [address] [place] [address] 10/23/2024 Procedure Pass [facility] EKG [address] [place] [address] 11/13/2024 Procedure Pass [address] [address] 11/13/2024 Procedure Pass [address] [address] 12/25/2024 Procedure Pass [address] [address] 01/05/2025 9:25 AM EST Appointment [address] [address] Hermelinda Barajas MD 450 [facility] Mariah [place] 1240 [place] [address] [email or web address] 01/08/2025 1:00 PM EST Telemedicine - audio only [facility] for Thoracic Oncology, Hermelinda-[facility] [place] 450 Wendy Lemus [facility], 9th [place] [address] Cindi Shell CNP 450 [place] [address] Benedict [email or web address] Hermelinda Barajas MD 450 [facility] 1240 [place] [address] Pedro@[facility] 01/11/2025 11:45 AM EST Appointment [facility], Ct Scan [address] [address] Hermelinda Barajas MD [address] [address] Pedro@[facility] 01/15/2025 7:10 AM EST Blood Draw Laboratory Services, [address], 2nd [place] [address] Cindi Shell STRIPPING SHOVEL OILER 450 [place] [address] Benedict east@[email or web address] 01/15/2025 8:00 AM EST Office Visit [facility] Center for Thoracic Oncology, [address], 9th [place] [address] Hermelinda Barajas MD [address] [place] [address] [place] [address] Pedro@[facility] 01/15/2025 9:00 AM EST Infusion Infusion Therapy Services Yawkey 9, [address], [address] [address] Cindi Shell, STRIPPING SHOVEL OILER 450 [facility] [place] [address] CindiMukeshWalter [email or web address] Patria Luevano, BRIELLE 450 [place] [address] STEFANO@[facility] 01/17/2025 10:00 AM EST Telemedicine [facility] Medical Weight Management [address] [place] [address] Svetlana Lucero, RigoD 75 [place] [address] [email or web address] 01/18/2025 7:35 AM EST Hospital Encounter [facility] EKG [address] [place] [address] Guanakito Gallardo MD 75 [facility] [place] [address] [facility] 01/18/2025 8:30 AM EST Appointment [facility] [address] [place] [address] Odlais Jimenez PA-C [address] [address] [email or web address] 02/01/2025 8:40 AM EST Office Visit [facility] Otolaryngology 45 [facility] ASB2-2 [place] [address] Demetrio Armstrong MD 45 [place] [phone] [email or web address] 02/14/2025 10:20 AM EST Office Visit [facility] DIABETES MEDICINE [address] [place] [address] Frank Partida MD [address] [place] [address] jose [email or web address] 02/25/2025 9:30 AM EST Telemedicine [facility] [address] [place] [address] Guanakito Gallardo MD [address] [place] [address] 07/04/2025 10:00 AM EDT Telemedicine [facility] [address] [place] [address] Thiago Bean MD [address] [place] [address] [email or web address] 10/18/2025 7:05 AM EDT Hospital Encounter [facility] EKG [address] [place] [address] Guanakito Gallardo MD [address] [place] [address] Arrived documented as of this encounter Visit Diagnoses Not on filedocumented in this encounter Additional Health Concerns Infection Onset Date Last Indicated Resolved Time COVID-19 04/06/2023 04/06/2023 04/27/2023 1:21 AM EST CoV-Risk 07/17/2024 07/17/2024 07/28/2024 1:21 AM EDT documented as of this encounter Care Teams Dental Service Technician Relationship Specialty Start Date End Date Aubrey Taylor MD [address] [place] [address] PCP - General Internal Medicine 08/13/22 09/14/22 Marilynn Daly NP PCP - General Nurse Practitioner 09/15/22 10/12/22 Grecia Bonilla MD [address] [place] [address] [place] [address] PCP - General Internal Medicine 10/13/22 Indigo Du, [facility] 300 [place] [address] [email or web address] Security Operations Manager Oncology 07/27/22 Hermelinda Barajas MD [address] [place] [address] Pedro@[facility] Medical Oncology 11/29/22 Cindi Shell CNP [address] [place] [address] Fina@[facility] Gerontology 11/29/22 Zuri Ha RN [address] [place] [address] Milton@[facility] Primary Infusion Nurse 01/10/24 05/14/24 Carlos Alberto King MD, CT [address] [place] [address] Department of Psychosocial Oncology and Palliative Care, [place] [phone] Jaelyn@[facility] Hospice and Palliative Care 04/05/24 Patria Luevano, BRIELLE [address] [place] [address] STEFANO@[facility] Primary Infusion Nurse 05/15/24 Jennie Ferreira, BRIELLE [address] [place] [address] ALISON@[email or web address] Associate Infusion Nurse 10/02/24 documented as of this encounter Additional Source Comments The information contained in this document represents components of the legal health record. It is not the complete legal health record.[facility]
--- OUTSIDE RECORDS SUMMARY | 2024-12-26 20:24 | XMS_ITS | Encounter Summary ---
Author Organization [facility] Address 399 [address] [facility] [address] [place] [address] Phone Care Team Providers Care Head Up Operator Helper Name Role Phone Indigo DuSW Unavailable Grecia Bonilla MD Primary Care Provider Hermelinda Barajas MD Unavailable [phone] Cindi Shell ELECTROPHYSIOLOGY TECHNICIAN Unavailable Zuri Ha RN Unavailable Sandra Ruiz@[facility].[place].[facility] Carlos Alberto King MD, [place] Unavailable Patria Luevano RN Unavailable TOBIAS HYATT@[facility].[place].[facility] Jennie Ferreira RN Unavailable ALISON@ [facility].[place].[facility] Encounter Details Date Type Department Care Team (Late st Contact Info) Description 04/25/2023 Telephone [facility] Center for Thoracic Oncology, [facility]elinda-[place] [facility] [place] 450 [facility], 9th [place] [address] Patria Mar, RN 44 [place] [address] [email or web address] Social History Tobacco Use Types Packs/Day Years Used Date Smoking Tobacco: Former Cigarettes 1 2 - 2022 Smokeless Tobacco: Never Education [...] [facility] 70 [place] [address] 10/23/2024 Procedure Pass [facility] EKG [address] [place] [address] 10/23/2024 Procedure Pass [facility] EKG 70 [place] [address] 11/13/2024 Procedure Pass [address] [address] 11/13/2024 Procedure Pass [address] [address] 12/25/2024 Procedure Pass [address] [address] 01/05/2025 9:25 AM EST Appointment [address] [address] Hermelinda Barajas MD [address] [place], [place] [address]leonard Elora 1240 [place] [address] Pedro@[facility] 01/08/2025 1:00 PM EST Telemedicine - audio only [facility] for Thoracic Oncology, [facility] 450 [facility], 9th [place] [address] Cindi Shell CNP 450 [place] [address] Benedict east@[facility] Hermelinda Barajas MD [address] [place] [address] Pedro@[facility] 01/11/2025 11:45 AM EST Appointment [address] [address] Hermelinda Barajas MD [address] [place] [address] Pedro@[facility] 01/15/2025 7:10 AM EST Blood Draw Laboratory Services, [address], 2nd [place] [address] Cindi Shell CNP [address] [place] [address] Benedict east@[facility] 01/15/2025 8:00 AM EST Office Visit [facility] for Thoracic Oncology, [address], 9th [place] [address] Hermelinda Barajas MD [address] [place] [address] Pedro@[facility] 01/15/2025 9:00 AM EST Infusion Infusion Therapy Services Yawkey 9, [facility] Cancer [address], 9th [place] [address] Cindi Shell CNP 450 [place] [address] Benedict east@[facility] Patria Luevano, BRIELLE 450 [place], [place] STEFANO@[facility] 01/17/2025 10:00 AM EST Telemedicine [facility] Medical Weight Management 45 [place] [address] Svetlana Lucero, RigoD 75 [place] [address] [email or web address] 01/18/2025 7:35 AM EST Hospital Encounter [facility] EKG 70 [place] [address] Guanakito Gallardo MD 75 [facility] [place] [address] [email or web address] [facility] 01/18/2025 8:30 AM EST Appointment [facility]iology 70 [place] [address] Odalis Jimenez PA-C 70 [facility] 5th [place] [address] [email or web address] 02/01/2025 8:40 AM EST Office Visit [facility] Otolaryngology 45 [facility] ASB2-2 [place] [address] Demetrio Armstrong MD 45 [place] [phone] [email or web address] 02/14/2025 10:20 AM EST Office Visit [facility] DIABETES MEDICINE 45 [place] [address] Frank Partida MD [address] [place] [address] [email or web address] 02/25/2025 9:30 AM EST Telemedicine [facility] Cardiovascular Clinic 70 [place] [address] Guanakito Gallardo MD [address] [place] [address] 07/04/2025 10:00 AM EDT Telemedicine [facility] Cardiovascular Clinic 70 [place] [address] Thiago Bean MD [address] [place] [address] [email or web address] 10/18/2025 7:05 AM EDT Hospital Encounter [facility] EKG [address] [place] [address] Guanakito Gallardo MD [address] [place] [address] Arrived documented as of this encounter Visit Diagnoses Not on filedocumented in this encounter Additional Health Concerns Infection Onset Date Last Indicated Resolved Time COVID-19 04/06/2023 04/06/2023 04/27/2023 1:21 AM EST CoV-Risk 07/17/2024 07/17/2024 07/28/2024 1:21 AM EDT documented as of this encounter Care Teams Head Up Operator Helper Relationship Specialty Start Date End Date Grecia Bonilla MD [address] [place] [address] [place] [address] PCP - General Internal Medicine 10/13/22 Indigo Du, SOFTWARE ANALYST 300 [place] [address] [email or web address] Tube Bending Machine Operator Oncology 07/27/22 Hermelinda Barajas MD [address] [place] [address] Pedro@[facility] Medical Oncology 11/29/22 Cindi Shell CNP [address] [place] [address] Fina@[facility] Gerontology 11/29/22 Zuri Ha RN [address] [place] [address] Milton@[facility] Primary Infusion Nurse 01/10/24 05/14/24 Carlos Alberto King MD, [place] [address] [place] [address] Department of Psychosocial Oncology and Palliative Care, [place] [address] Jaelyn@[facility] Hospice and Palliative Care 04/05/24 Patria Luevano, BRIELLE [address] [place] [address] STEFANO@[facility] Primary Infusion Nurse 05/15/24 Jennie Ferreira, BRIELLE [address] [place] [address] ALISON@[facility] Associate Infusion Nurse 10/02/24 documented as of this encounter Additional Source Comments The information contained in this document represents components of the legal health record. It is not the complete legal health record.[facility]
--- OUTSIDE RECORDS SUMMARY | 2024-12-26 20:24 | XMS_ITS | Encounter Summary ---
Author Organization [facility] Address [address] [facility] [address] [place] [address] Phone Care Team Providers Care Shook Machine Operator Name Role Phone Indigo DuSW Unavailable Aubrey Taylor MD Primary Care Provider [phone] Marilynn Daly NP Primary Care Provider Unavailab Grecia Rosado MD Primary Care Provider Hermelinda Barajsa MD Unavailable [phone] Cindi Shell [facility] Unavailable Zuri Ha RN Unavailable Sandra [email or web address] Carlos Alberto King MD, [place] Unavailable Patria Luevano RN Unavailable TOBIAS [email or web address] Jennie Ferreira RN Unavailable ALISON@ [email or web address] Encounter Details Date Type Department Care Team (Late st Contact Info) Description 09/10/2022 Procedure Pass Hermel[facility] [place] 300 [facility] 3rd [place] [address] Social History Tobacco Use Types [...] st Contact Info) Description 10/18/2024 Procedure Pass [facility] [address] [place] [address] 10/23/2024 Procedure Pass [facility] EKG [address] [place] [address] 10/23/2024 Procedure Pass [facility] EKG [address] [place] [address] 11/13/2024 Procedure Pass [address] [address] 11/13/2024 Procedure Pass [address] [address] 12/25/2024 Procedure Pass [address] [address] 01/05/2025 9:25 AM EST Appointment [address] [address] Hermelinda Barajas MD 450 [facility] Mariah Catawba 1240 [place] [address] [email or web address] 01/08/2025 1:00 PM EST Telemedicine - audio only [facility], Herm[facility] 450 Wendy Lemus [facility], 9th [place] [address] Cindi Shell CNP 450 [place] [address] Benedict east@[facility] Hermelinda Barajas MD 450 [facility] 1240 [place] [address] Pedro@[email or web address] 01/11/2025 11:45 AM EST Appointment [facility], Ct Scan [address] [address] Hermelinda Barajas MD [address] [address] Pedro@[facility] 01/15/2025 7:10 AM EST Blood Draw Laboratory Services, [address], 2nd [place] [address] Cindi Shell ELEVATOR CONSTRUCTOR HYDRAULIC 450 [place] [address] Benedict east@[facility] 01/15/2025 8:00 AM EST Office Visit [facility] for Thoracic Oncology, [address], 9th [place] [address] Hermelinda Barajas MD [address] [place] [address] [place] [address] Pedro@[facility] 01/15/2025 9:00 AM EST Infusion Infusion Therapy Services Yawkey 9, [address], [place] [address] Cindi Shell, ELEVATOR CONSTRUCTOR HYDRAULIC 450 [facility] [place] [address] CindiMukeshWalter [email or web address] Patria Luevano, BRIELLE 450 [place] [address] STEFANO@[facility] 01/17/2025 10:00 AM EST Telemedicine [facility] Medical Weight Management [address] [place] [address] Svetlana Lucero, RigoD 75 [place] [address] [email or web address] 01/18/2025 7:35 AM EST Hospital Encounter [facility] EKG [address] [place] [address] Guanakito Gallardo MD 75 [facility] Cardiology [place] [address] [facility] 01/18/2025 8:30 AM EST Appointment [facility] [address] [place] [address] Odalis Jimenez PA-C [address] [address] [email or web address] 234 beds at the [facility] 02/01/2025 8:40 AM EST Office Visit [facility] Otolaryngology 45 [facility] ASB2-2 [place] [address] Demetrio Armstrong MD 45 [place] [phone] [email or web address] 02/14/2025 10:20 AM EST Office Visit [facility] DIABETES MEDICINE [address] [place] [address] Frank Partida MD [address] [place] [address] jose [email or web address] 02/25/2025 9:30 AM EST Telemedicine [facility] [address] [place] [address] Guanakito Gallardo MD [address] [place] [address] 07/04/2025 10:00 AM EDT Telemedicine [facility] [address] [place] [address] Thiago Bean MD [address] [place] [address] [email or web address] 10/18/2025 7:05 AM EDT Hospital Encounter [facility] EKG [address] [place] [address] Guanakito Gallardo MD [address] [place] [address] Arrived documented as of this encounter Visit Diagnoses Not on filedocumented in this encounter Additional Health Concerns Infection Onset Date Last Indicated Resolved Time COVID-19 04/06/2023 04/06/2023 04/27/2023 1:21 AM EST CoV-Risk 07/17/2024 07/17/2024 07/28/2024 1:21 AM EDT documented as of this encounter Care Teams Shook Machine Operator Relationship Specialty Start Date End Date Aubrey Taylor MD [address] [place] [address] PCP - General Internal Medicine 08/13/22 09/14/22 Marilynn Daly NP PCP - General Nurse Practitioner 09/15/22 10/12/22 Grecia Bonilla MD [address] [place] [address] [place] [address] PCP - General Internal Medicine 10/13/22 Indigo Du, [facility] [address] [place] [address] [email or web address] Silk Screen Operator Oncology 07/27/22 Hermelinda Barajas MD [address] [place] [address] Pedro@[facility] Medical Oncology 11/29/22 iCndi Shell CNP [address] [place] [address] Fina@[facility] Gerontology 11/29/22 Zuri Ha RN [address] [place] [address] Milton@[facility] Primary Infusion Nurse 01/10/24 05/14/24 Carlos Alberto King MD, [place] [address] [place] [address] Department of Psychosocial Oncology and Palliative [place], [place] [phone] Jaelyn@[facility] Hospice and Palliative Care 04/05/24 Patria Luevano, BRIELLE [address] [place] [address] [email or web address]@[facility] Primary Infusion Nurse 05/15/24 Jennie Ferreira, BRIELLE [address] [place] [address] ALISON@[email or web address] Associate Infusion Nurse 10/02/24 documented as of this encounter Additional Source Comments The information contained in this document represents components of the legal health record. It is not the complete legal health record.[facility]
--- OUTSIDE RECORDS SUMMARY | 2024-12-26 20:24 | XMS_ITS | Encounter Summary ---
Author Organization [facility] Address [address] [facility] [address] [place] [address] Phone Care Team Providers Care Qa Tester Name Role Phone Indigo Du [facility] Unavailable Grecia Bonilla MD Primary Care Provider Hermelinda Barajas MD Unavailable [phone] Cindi Shell [facility] Unavailable [phone] Carlos Alberto King MD, [place] Unavailable [phone] Patria Luevano RN Unavailable TOBIAS HYATT@[email or web address] Jennie Ferreira RN Unavailable ALISON@ [facility] Reason for Visit * Reason Onset Date Comments Antonshreyass/pt returning call 10/19/2024 Encounter Details Date Type Department Care Team ([facility] st Contact Info) Description 10/19/2024 Telephone [facility] Cardiovascular Clinic [address] [place] [address] Melanie Cruz, PA-C 75 [facility] PBB-146 [place] [address] [email or web address] Nancy/pt returning call Social History Tobacco [...] that he is supposed to download the NodePrime mobile esther on his phone and there is a $12 monthly charge that he does not want to pay for. Please try calling pt again. CB# [phone] Thank you, Kirsten Majano Patient Furniture Rental Consultant Department of Medicine Access Center documented in this encounter Plan of Treatment Upcoming Encounters Date Type Department Care Team (Late st Contact Info) Description 10/18/2024 Procedure Pass [facility] [address] [place] [address] 10/23/2024 Procedure Pass [facility] EKG 70 [place] [address] 10/23/2024 Procedure Pass [facility] EKG [address] [place] [address] 11/13/2024 Procedure Pass [address] [address] 11/13/2024 Procedure Pass [address] [address] 12/25/2024 Procedure Pass [address] [address] 01/05/2025 9:25 AM EST Appointment [address] [address] Hermelinda Barajas MD [address] [place] [address] Pedro@[facility] 01/08/2025 1:00 PM EST Telemedicine - audio [facility] Center for Thoracic Oncology, [facility] [place] [address] [place] [address], 9th [place] [address] Cindi Shell CNP [address] [place] [address] [place] [address] Benedict east@[facility] Hermelinda Barajas MD [address] [place] [address] Pedro@[facility] 01/11/2025 11:45 AM EST Appointment [address] [address] Hermelinda Barajas MD [address] [place] [address] Pedro@[facility] 01/15/2025 7:10 AM EST Blood Draw Laboratory Services, [address], 2nd [place] [address] Cindi Shell INFRASTRUCTURE DESIGN ENGINEER [address] [place] [address] Benedict east@[facility] 01/15/2025 8:00 AM EST Office Visit [facility] Center for Thoracic Oncology, [address], 9th [place] [address] Hermelinda Barajas MD [address] [place] [address] Pedro@[facility] 01/15/2025 9:00 AM EST Infusion Infusion Therapy Services Yawkey 9, [address], 9th [place] [address] Cindi Shell INFRASTRUCTURE DESIGN ENGINEER [address] [place] [address] Benedict east@[facility] Patria Luevano, BRIELLE [address] [place] [address] STEFANO@[facility] 01/17/2025 10:00 AM EST Telemedicine [facility] Medical Weight Management 45 [place] [address] Svetlana Lucero, PharmD [address] [place] [address] [email or web address] 01/18/2025 7:35 AM EST Hospital Encounter [facility] EKG 70 [place] [address] Guanakito Gallardo MD [address] [place] [address] [email or web address] Arrived 01/18/2025 8:30 AM EST Appointment [facility] 70 [place] [address] Odalis Jimenez PA-C 70 [facility] 5th [place] [address] [email or web address] 02/01/2025 8:40 AM EST Office Visit [facility] Otolaryngology 45 [facility] ASB2-2 [place] [address] Demetrio Armstrong MD 45 [place] [phone] [email or web address] 02/14/2025 10:20 AM EST Office Visit [facility] DIABETES MEDICINE 45 [place] [address] Frank Partida MD [address] [place] [address] jose [email or web address] 02/25/2025 9:30 AM EST Telemedicine [facility] Cardiovascular Clinic [address] [place] [address] Guanakito Gallardo MD [address] [place] [address] [email or web address] 07/04/2025 10:00 AM EDT Telemedicine [facility] Cardiovascular Clinic [address] [place] [address] Thiago Bean MD [address] [place] [address] [email or web address] 10/18/2025 7:05 AM EDT Hospital Encounter [facility] EKG [address] [place] [address] Guanakito Gallardo MD [address] [place] [address] [place] [address] [email or web address] Arrived documented as of this encounter Visit Diagnoses Not on filedocumented in this encounter Care Teams Qa Tester Relationship Specialty Start Date End Date Grecia Bonilla MD [address] [place] [address] [place] [address] PCP - General Internal Medicine 10/13/22 Indigo Du, [facility] 300 [place] [address] [email or web address] Plastician Oncology 07/27/22 Hermelinda Barajas MD [address] [place] [address] [place] [address] Pedro@[email or web address] Medical Oncology 11/29/22 Cindi Shell CNP [address] [place] [address] [place] [address] Fina@[facility] Gerontology 11/29/22 Carlos Alberto King MD, [place] [address] [place] [address] Department of Psychosocial Oncology and Palliative Care, [place] [address] Jaelyn@[facility] Hospice and Palliative Care 04/05/24 Patria Luevano, RN [address] [place] [address] STEFANO@[facility] Primary Infusion Nurse 05/15/24 Jennie Ferreira RN [address] [place] [address] ALISON@[email or web address] Associate Infusion Nurse 10/02/24 documented as of this encounter Additional Source Comments The information contained in this document represents components of the legal health record. It is not the complete legal health record.[facility]
--- OUTSIDE RECORDS SUMMARY | 2024-12-26 20:24 | XMS_ITS | Encounter Summary ---
Author Organization [facility] Address [address] [place] [address] Phone Care Team Providers Care Structural Analyst Name Role Phone Indigo Du GANG RIPSAW OPERATOR Unavailable [phone] Grecia Bonilla MD Primary Care Provider Hermelinda Barajas MD Unavailable [phone] Cindi Shell [facility] Unavailable Carlos Alberto King MD, [place] Unavailable Patria Luevano RN Unavailable TOBIAS [email or web address] Jennie Ferreira RN Unavailable ALISON@ [facility] [place] Encounter Details Date Type Department Care Team (Late st Contact Info) Description 10/18/2024 Procedure Pass [facility] [address] [place] [address] Social History Tobacco Use Types Packs/Day Years [...] Pass [facility] [address] [place] [address] 10/23/2024 Procedure Pass [facility] EKG [address] [place] [address] 10/23/2024 Procedure Pass [facility] EKG [address] [place] [address] 11/13/2024 Procedure Pass [address] [address] 11/13/2024 Procedure Pass [address] [address] 12/25/2024 Procedure Pass [address] [address] 01/05/2025 9:25 AM EST Appointment [address] [address] Hermelinda Barajas MD [address] [place] [address] Andrew Hermelinda [address] [place] [address] [email or web address] 01/08/2025 1:00 PM EST Telemedicine - audio only [facility], [facility] 450 [facility], 9th [place] [address] Cnidi Shell CNP 450 [place] [address] Benedict east@[facility] Hermelinda Barajas MD [address] [place] [address] Pedro@[email or web address] 01/11/2025 11:45 AM EST Appointment [facility] [place] Scan [address] [address] Hermelinda Barajas MD [address] [place] [address] Pedro@[email or web address] 01/15/2025 7:10 AM EST Blood Draw Laboratory Services, [address], 2nd [place] [address] Cindi Shell CNP [address] [place] [address] Benedict east@[facility] 01/15/2025 8:00 AM EST Office Visit [facility], [address], 9th [place] [address] Hermelinda Barajas MD [address] [place] [address] [email or web address]@[facility] 01/15/2025 9:00 AM EST Infusion Infusion Therapy Services Astergeorgemelissa 9, [facility] Cancer [address], 9th [place] [address] Cindi Shell CNP [address] [place] [address] Benedict east@[facility] Patria Luevano, BRIELLE [address] [place] [address] STEFANO@[facility] 01/17/2025 10:00 AM EST Telemedicine [facility] Medical Weight Management [address] [place] [address] Svetlana Lucero, RigoD [address] [place] [address] [email or web address] 01/18/2025 7:35 AM EST Hospital Encounter [facility] EKG [address] [place] [address] Guanakito Gallardo MD [address] [place] [address] [place] [address] [facility]3] 01/18/2025 8:30 AM EST Appointment [facility] [address] [place] [address] Odalis Jimenez PA-C 70 [facility] 5th [place] [address] [email or web address] 02/01/2025 8:40 AM EST Office Visit [facility] Otolaryngology 45 [facility] ASB2-2 [place] [address] Demetrio Armstrong MD [address] [place] [address] [email or web address] 02/14/2025 10:20 AM EST Office Visit [facility] DIABETES MEDICINE 45 [place] [address] Frank Partida MD 221 [place] [address] jose [email or web address] 02/25/2025 9:30 AM EST Telemedicine [facility] Cardiovascular Clinic [address] [place] [address] Guanakito Gallardo MD [address] [place] [address] [email or web address] 07/04/2025 10:00 AM EDT Telemedicine [facility] Cardiovascular Clinic [address] [place] [address] Thiago Bean MD [address] [place] [address] [email or web address]@[facility] 10/18/2025 7:05 AM EDT Hospital Encounter [facility] EKG [address] [place] [address] Guanakito Gallardo MD [address] [place] [address] Arrived documented as of this encounter Visit Diagnoses Not on filedocumented in this encounter Care Teams Structural Analyst Relationship Specialty Start Date End Date Grecia Bonilla MD [address] [place] [address] [place] [address] PCP - General Internal Medicine 10/13/22 Indigo Du, [facility] 300 [place] [address] [email or web address] Coffee Maker Servicer Oncology 07/27/22 Hermelinda Barajas MD [address] [place] [address] [place] [address] Pedro@[facility] Medical Oncology 11/29/22 Cindi Shell CNP [address] [place] [address] Fina@[email or web address] Gerontology 11/29/22 Carlos Alberto King MD, [place] [address] [place] [address] Department of Psychosocial Oncology and Palliative Care, [place] [address] Jaelyn@[facility] Hospice and Palliative Care 04/05/24 Patria Luevano, BRIELLE [address] [place] [address] STEFANO@[facility] Primary Infusion Nurse 05/15/24 Jennie Ferreira, BRIELLE [address] [place] [address] ALISON@[facility] Associate Infusion Nurse 10/02/24 documented as of this encounter Additional Source Comments The information contained in this document represents components of the legal health record. It is not the complete legal health record.[facility]
--- OUTSIDE RECORDS SUMMARY | 2024-12-26 20:24 | XMS_ITS | Encounter Summary ---
Author Organization [facility] Address [address] [facility] [address] [place] [address] Phone Care Team Providers Care Solution Specialist Name Role Phone Aubrey Taylor MD Primary Care Provider [phone] [facility] Unavailable Jn Cline DO Primary Care Provider Aubrey Taylor MD Primary Care Provider [phone] Marilynn Daly NP Primary Care Provider Unavailab Grecia Rosado MD Primary Care Provider Hermelinda Barajas MD Unavailable [phone] Cindi Shell RESIDENTIAL TEAM LEADER Unavailable Zuri Ha RN Unavailable Sandra Ruiz@[email or web address] Carlos Alberto King MD, [place] Unavailable Patria Luevano RN Unavailable TOBIAS [email or web address] Jennie Ferreira RN Unavailable ALISON@ [facility] Encounter Details Date Type Department Care Team (Late st Contact Info) Description 06/25/2022 Procedure Pass [facility] Echocardiography [address] [place] [address] Social History Tobacco Use Types Packs/Day Years [...] Procedure Pass [facility] [address] [place] [address] 10/23/2024 Procedure Pass [facility] EKG [address] [place] [address] 10/23/2024 Procedure Pass [facility] EKG [address] [place] [address] 11/13/2024 Procedure Pass [address] [address] 11/13/2024 Procedure Pass [address] [address] 12/25/2024 Procedure Pass [address] [address] 01/05/2025 9:25 AM EST Appointment [address] [address] Hermelinda Barajas MD [address] [place], [place] [address] [place] [address] [email or web address] 01/08/2025 1:00 PM EST Telemedicine - audio only [facility], [facility] [address], 9th [place] [address] Cindi Shell RESIDENTIAL TEAM LEADER 450 [place] [address] Benedict [email or web address]@[email or web address] Hermelinda Barajas MD 450 [facility] 1240 [place] [address] Pedro@[email or web address] 01/11/2025 11:45 AM EST Appointment [facility], [address] [address] Hermelinda Barajas MD [address] [place] [address] Pedro@[facility] 01/15/2025 7:10 AM EST Blood Draw Laboratory Services, [address], 2nd [place] [address] Cindi Shell RESIDENTIAL TEAM LEADER [address] [place] [address] Benedict east@[facility] 01/15/2025 8:00 AM EST Office Visit [facility], [address], 9th [place] [address] Hermelinda Barajas MD [address] [place] [address] 1240 [place] [address] Pedro@[facility] 01/15/2025 9:00 AM EST Infusion Infusion Therapy Services Y[facility]key 9, [address], 9th [place] [address] Cindi Shell RESIDENTIAL TEAM LEADER 450 [facility] [place] [address] Benedict [email or web address] Patria Luevano, BRIELLE [address] [place] [address] STEFANO@[facility] 01/17/2025 10:00 AM EST Telemedicine [facility] Medical Weight Management 45 [place] [address] Svetlana Lucero, RigoD 75 [place] [address] [email or web address] 01/18/2025 7:35 AM EST Hospital Encounter [facility] EKG 70 [place] [address] Guanakito Gallardo MD 75 [facility] [place] [address] [email or web address] 01/18/2025 8:30 AM EST Appointment [facility] 70 [place] [address] Odalis Jimenez PA-C 70 [facility] 5th [place] [address] [email or web address] 02/01/2025 8:40 AM EST Office Visit [facility] Otolaryngology 45 [facility] ASB2-2 [place] [address] Demetrio Armstrong MD 45 [place] [phone] [email or web address] 02/14/2025 10:20 AM EST Office Visit [facility] DIABETES MEDICINE 45 [place] [address] Frank Partida MD 221 [place] [address] jose [email or web address]@[email or web address] 02/25/2025 9:30 AM EST Telemedicine [facility] [address] [place] [address] Guanakito Gallardo MD [address] [place] [address] 07/04/2025 10:00 AM EDT Telemedicine [facility] [address] [place] [address] Thiago Bean MD [address] [place] [address] [email or web address]@[email or web address] 10/18/2025 7:05 AM EDT Hospital Encounter [facility] EKG [address] [place] [address] Guanakito Gallardo MD [address] [place] [address] [email or web address] Arrived documented as of this encounter Visit Diagnoses Not on filedocumented in this encounter Additional Health Concerns Infection Onset Date Last Indicated Resolved Time COVID-19 04/06/2023 04/06/2023 04/27/2023 1:21 AM EST CoV-Risk 07/17/2024 07/17/2024 07/28/2024 1:21 AM EDT documented as of this encounter Care Teams Solution Specialist Relationship Specialty Start Date End Date Aubrey Taylor MD [address] [place] [address] PCP - General Internal Medicine 05/28/22 08/03/22 Jn Cline DO [address] [place] [address] [email or web address] Viptable PCP - General Hospitalist 08/04/22 08/12/22 Aubrey Taylor MD [address] [place] [address] PCP - General Internal Medicine 08/13/22 09/14/22 Marilynn Daly NP PCP - General Nurse Practitioner 09/15/22 10/12/22 Grecia Bonilla MD [address] [place] [address] [place] [address] PCP - General Internal Medicine 10/13/[address] [address] [email or web address] Surgical Clinical Reviewer Oncology 07/27/22 Hermelinda Barajas MD [address] [place] [address] Pedro@[facility] Medical Oncology 11/29/22 Cindi Shell CNP [address] [place] [address] [email or web address] Gerontology 11/29/22 Zuri Ha, BRIELLE [address] [place] [address] Milton@[email or web address] Primary Infusion Nurse 01/10/24 05/14/24 Carlos Alberto King MD, [place] [address] [place] [address] Department of Psychosocial Oncology and Palliative Care, [place] [address] Jaelyn@[facility] Hospice and Palliative Care 2/6/25 Patria Luevano, RN [address] [place] [address] [email or web address] Primary Infusion Nurse 05/15/24 Jennie Ferreira, BRIELLE [address] [place] [address] ALISON@[email or web address] Associate Infusion Nurse 10/02/24 documented as of this encounter Additional Source Comments The information contained in this document represents components of the legal health record. It is not the complete legal health record.[facility]
--- OUTSIDE RECORDS SUMMARY | 2024-12-26 20:24 | XMS_ITS | Encounter Summary ---
Author Organization [facility] Address [address] [place] [address] Phone Care Team Providers Care Fireworks Inspector Name Role Phone Indigo DuSW Unavailable Grecia Bonilla MD Primary Care Provider Hermelinda Barajas MD Unavailable [phone] Cindi Shell GRAVEL INSPECTOR Unavailable Zuri Ha RN Unavailable Sandra Ruiz@[email or web address].[facility] Carlos Alberto King MD, [place] Unavailable [phone] Patria Luevano RN Unavailable TOBIAS HYATT@[email or web address].[facility] Jennie Ferreira RN Unavailable ALISON@ [facility].[facility] Encounter Details Date Type Department Care Team (Late st Contact Info) Description 01/11/2024 Procedure Pass [facility] [address] [place] [address] Social History Tobacco Use Types Packs/Day Years [...] st Contact Info) Description 10/18/2024 Procedure Pass [facility] Women[facility]iology 70 [place] [address] 10/23/2024 Procedure Pass [facility] EKG 70 [place] [address] 10/23/2024 Procedure Pass [facility] EKG 70 [place] [address] 11/13/2024 Procedure Pass [address] [address] 11/13/2024 Procedure Pass [address] [address] 12/25/2024 Procedure Pass [address] [address] 01/05/2025 9:25 AM EST Appointment [address] [address] Hermelinda Barajas MD [address] [place] [address] [email or web address] 01/08/2025 1:00 PM EST Telemedicine - audio only [facility] for Thoracic On[facility], [facility] Cancer [place] [address] [place] [address], 9th [place] [address] Cindi Shell CNP [address] [place] [address] Benedict east@[facility] Hermelinda Barajas MD [address] [address] Pedro@[facility] 01/11/2025 11:45 AM EST Appointment [address] [address] Hermelinda Barajas MD [address] [address] Pedro@[facility] 01/15/2025 7:10 AM EST Blood Draw Laboratory Services, [address], 2nd [place] [address] Cindi Shell CNP [address] [place] [address] Benedict east@[facility] 01/15/2025 8:00 AM EST Office Visit [facility], [address], 9th [place] [address] Hermelinda Barajas MD [address] [place] [address] Pedro@[facility] 01/15/2025 9:00 AM EST Infusion Infusion Therapy Services [facility] 9, [address], 9th [place] [address] Cindi Shell GRAVEL INSPECTOR [address] [place] [address] [email or web address] Patria Luevano, BRIELLE [address] [place] [address] STEFANO@[facility] 01/17/2025 10:00 AM EST Telemedicine [facility] Medical Weight Management 45 [place] [address] Svetlana Lucero, RigoD 75 [place] [address] [email or web address] 01/18/2025 7:35 AM EST Hospital Encounter [facility] EKG 70 [place] [address] Guanakito Gallardo MD 75 [facility] [place] [address] [email or web address] [facility] 01/18/2025 8:30 AM EST Appointment [facility] 70 [place] [address] Odalis Jimenez PA-C 70 [facility] 5th [place] [address] [email or web address] 02/01/2025 8:40 AM EST Office Visit [facility] Otolaryngology 45 [facility] ASB2-2 [place] [address] Demetrio Armstrong MD 45 [place] [phone] [email or web address] 02/14/2025 10:20 AM EST Office Visit [facility] DIABETES MEDICINE 45 [place] [address] Frank Partida MD 221 [place] [address] jose [email or web address]@[facility] 02/25/2025 9:30 AM EST Telemedicine [facility] 70 [place] [address] Guanakito Gallardo MD [address] [place] [address] 07/04/2025 10:00 AM EDT Telemedicine [facility] 70 [place] [address] Thiago Bean MD [address] [place] [address] laurita@[facility] 10/18/2025 7:05 AM EDT Hospital Encounter [facility] EKG 70 [place] [address] Guanakito Gallardo MD [address] [place] [address] Arrived documented as of this encounter Visit Diagnoses Not on filedocumented in this encounter Additional Health Concerns Infection Onset Date Last Indicated Resolved Time CoV-Risk 07/17/2024 07/17/2024 07/28/2024 1:21 AM EDT documented as of this encounter Care Teams Fireworks Inspector Relationship Specialty Start Date End Date Grecia Bonilla MD [address] [place] [address] [place] [address] PCP - General Internal Medicine 10/13/22 Indigo Du, [facility] 300 [place] [address] [email or web address] Powerhouse Laborer Oncology 07/27/22 Hermelinda Barajas MD [facility] Wendy Shen 1240 [place] [address] Pedro@[email or web address] Medical Oncology 11/29/22 Cindi Shell CNP [address] [place] [address] Fina@[facility] Gerontology 11/29/22 Zuri Ha RN [address] [place] [address] Milton@[facility] Primary Infusion Nurse 01/10/24 05/14/24 Carlos Alberto King MD, [place] [address] [place] [address] Department of Psychosocial Oncology and Palliative Care, [place] [address] Jaelyn@[facility] Hospice and Palliative Care 04/05/24 Patria Luevano, BRIELLE [address] [place] [address] [email or web address]@[facility] Primary Infusion Nurse 05/15/24 Jennie Ferreira RN [address] [place] [address] ALISON@[email or web address] Associate Infusion Nurse 10/02/24 documented as of this encounter Additional Source Comments The information contained in this document represents components of the legal health record. It is not the complete legal health record.[facility]
--- OUTSIDE RECORDS SUMMARY | 2024-12-26 20:24 | XMS_ITS | Encounter Summary ---
Author Organization [facility] Address [address] [place] [address] Phone Care Team Providers Care Table Hand Name Role Phone Indigo DuSW Unavailable Grecia Bonilla MD Primary Care Provider Hermelinda Barajas MD Unavailable [phone] Cindi Shell ORDNANCE TRUCK INSTALLATION SUPERVISOR Unavailable Zuri Ha RN Unavailable Sandra Ruiz@[facility].[place] Carlos Alberto King MD, [place] Unavailable Patria Luevano RN Unavailable TOBIAS [email or web address].[email or web address] Jennie Ferreira RN Unavailable ALISON@ [facility] Encounter Details Date Type Department Care Team (Late st Contact Info) Description 10/22/[address] [facility] Echocardiography [address] [place] [address] Social History Tobacco Use Types Packs/Day Years [...] [facility] [address] [place] [address] 10/23/[address] [facility] EKG [address] [place] [address] 10/23/[address] [facility] EKG [address] [place] [address] 11/13/2024 Procedure Pass [address] [address] 11/13/2024 Procedure Pass [address] [address] 12/25/2024 Procedure Pass [address] [address] 01/05/2025 9:25 AM EST Appointment [address] [address] Hermelinda Barajas MD [address] [place] [address] [email or web address] 01/08/2025 1:00 PM EST Telemedicine - audio only [facility] On[facility], [facility] Cancer [place] [address] [place] [address], 9th [place] [address] Cindi Shell CNP 450 [place] [address] Benedict east@[facility] Hermelinda Barajas MD [address] [address] Pedro@[facility] 01/11/2025 11:45 AM EST Appointment [facility], [address] [address] Hermelinda Barajas MD [address] [address] Pedro@[facility] 01/15/2025 7:10 AM EST Blood Draw Laboratory Services, [address], 2nd [place] [address] Cindi Shell ORDNANCE TRUCK INSTALLATION SUPERVISOR [address] [place] [address] Benedict east@[facility] 01/15/2025 8:00 AM EST Office Visit [facility], [address], 9th [place] [address] Hermelinda Barajas MD [address] [place] [address] Pedro@[facility] 01/15/2025 9:00 AM EST Infusion Infusion Therapy Services [facility] 9, [address], 9th [place] [address] Cindi Shell ORDNANCE TRUCK INSTALLATION SUPERVISOR [address] [place] [address] Vidhijuan daviddexterAreliophelia [email or web address] Patria Luevano, BRIELLE [address] [place] [address] STEFANO@[facility] 01/17/2025 10:[address] [facility] Medical Weight Management [address] [place] [address] Svetlana Lucero, RigoD 75 [place] [address] [email or web address] 01/18/2025 7:35 AM EST Hospital Encounter [facility] EKG [address] [place] [address] Guanakito Gallardo MD 75 [facility] [place] [address] [email or web address] [facility] 01/18/2025 8:30 AM EST Appointment [facility] [address] [place] [address] Odalis Jimenez PA-C 70 [facility] 5th [place] [address] [email or web address] 02/01/2025 8:40 AM EST Office [facility] Otolaryngology 45 [facility] ASB2-2 [place] [address] Demetrio Armstrong MD 45 [place] [phone] [email or web address] 02/14/2025 10:20 AM EST Office Visit [facility] DIABETES MEDICINE 45 [place] [address] Frank Partida MD 221 [place] [address] jose [email or web address]@[facility] 02/25/2025 9:30 AM EST Telemedicine [facility] Cardiovascular Clinic [address] [place] [address] Guanakito Gallardo MD [address] [place] [address] 07/04/2025 10:00 AM EDT Telemedicine [facility] Cardiovascular Clinic [address] [place] [address] Thiago Bean MD [address] [place] [address] [email or web address] 10/18/2025 7:05 AM EDT Hospital Encounter [facility] EKG [address] [place] [address] Guanakito Gallardo MD [address] [place] [address] Arrived documented as of this encounter Visit Diagnoses Not on filedocumented in this encounter Additional Health Concerns Infection Onset Date Last Indicated Resolved Time COVID-19 04/06/2023 04/06/2023 04/27/2023 1:21 AM EST CoV-Risk 07/17/2024 07/17/2024 07/28/2024 1:21 AM EDT documented as of this encounter Care Teams Table Hand Relationship Specialty Start Date End Date Grecia Bonilla MD [address] [place] [address] [place] [address] PCP - General Internal Medicine 10/13/22 Indigo Du, [facility] 300 [place] [address] [email or web address] Neighborhood Aide Oncology 07/27/22 Hermelinda Barajas MD [facility] Wendy Shen 1240 [place] [address] Pedro@[facility] Medical Oncology 11/29/22 Cindi Shell CNP [address] [place] [address] Fina@[facility] Gerontology 11/29/22 Zuri Ha RN [address] [place] [address] Milton@[facility] Primary Infusion Nurse 01/10/24 05/14/24 Carlos Alberto King MD, [place] [address] [place] [address] Department of Psychosocial Oncology and Palliative Care, [place] [address] Jaelyn@[facility] Hospice and Palliative Care 04/05/24 Patria Luevano, BRIELLE [address] [place] [address] STEFANO@[facility] Primary Infusion Nurse 05/15/24 Jennie Ferreira RN [address] [place] [address] ALISON@[facility] Associate Infusion Nurse 10/02/24 documented as of this encounter Additional Source Comments The information contained in this document represents components of the legal health record. It is not the complete legal health record.[facility]
== END 2024-12-26 20:09 | disposition left against medical advice (07) ==
PROVIDERS: Student in an Organized Health Care Education/Training Program; Emergency Provider Emergency Medicine; PCP Internal Medicine
DX: E11.65 Type 2 diabetes mellitus with hyperglycemia (principal); Z79.84 Long term (current) use of oral hypoglycemic drugs; Z79.52 Long term (current) use of systemic steroids
CPT/HCPCS: 36415; 80053; 82010; 82803; 83735; 85025; 99281